=== PATIENT | female | born 1950 | race Caucasian/White ===

== ENCOUNTER 2021-02-18 07:00 | Outpatient (REF) | payer MEDICARE, SELFPAY ==
[2021-02-18 08:53] LABS: Hematocrit 29.2 % (37-47); Hemoglobin 9.7 g/dL (12.0-15.0); Mean Corp Hgb Conc 33.2 g/dL (32-36); Mean Corpuscular Hgb 32.7 pg (27.0-32.0); Mean Corpuscular Volume 98.3 fL (81-99); Mean Platelet Vol. 9.1 fl (6.2-12.0); Platelet Count 188 K/mm3 (150-450); RBC Distribution Width CV 12.2 % (11.6-14.6); RBC Distribution Width SD 43.9 fl (35.1-43.9); Red Blood Count 2.97 M/mm3 (4.2-5.4)
[2021-02-18 09:29] LABS: ALB/GLOB Ratio 0.9 RATIO (0.9-2.4); AST(SGOT) 9 U/L (15-37); Alanine Aminotransfer ALT/SGPT 16 U/L (13-56); Albumin, Serum 2.7 g/dL (3.2-5.0); Alkaline Phosphatase 49 U/L (45-117); Anion Gap 5 (5-15); BUN 20 mg/dL (7-18); BUN/Creat Ratio 27.2 RATIO (10-20); Chloride 109 mmol/L (98-107); Creatinine, Serum 0.74 mg/dL (0.55-1.02); EST Glomerular Filtration Rate 83 mL/min (>60); Est Glom Filt Rate - Afr Amer 101 mL/min (>60); Glucose 85 mg/dL (74-106); Potassium 3.5 mmol/L (3.5-5.1); Protein, Total 5.7 g/dL (6.4-8.2); Sodium Level 142 mmol/L (136-145); Thyroid Stim Hormone (TSH) 0.09 uIU/mL (0.358-3.74)
== END 2021-02-18 23:59 | disposition home or self-care (01) ==
LOC: OLS.ACW200 07:00
PROVIDERS: Referring Provider Family Medicine; Visit Provider Family Medicine
DX: I63.9 Cerebral infarction, unspecified (principal); I69.354 Hemiplegia and hemiparesis following cerebral infarction affecting left non-dominant side; G40.509 Epileptic seizures related to external causes, not intractable, without status epilepticus; R53.1 Weakness; E03.9 Hypothyroidism, unspecified; I69.398 Other sequelae of cerebral infarction; I65.21 Occlusion and stenosis of right carotid artery; G44.221 Chronic tension-type headache, intractable; F32.9 Major depressive disorder, single episode, unspecified; M81.0 Age-related osteoporosis without current pathological fracture
CPT/HCPCS: 36415; 80053; 82140; 84443; 85027

== ENCOUNTER → 2021-03-16 05:00 | Outpatient (REF) | payer OTHER, MEDICARE, SELFPAY ==
[2021-03-16 08:34] LABS: Valproic Acid (Depakene) Level 25 ug/mL (50-100)
== END ==
LOC: OLS.ACW300 05:00
PROVIDERS: Referring Provider Family Medicine; Visit Provider Family Medicine
DX: I63.9 Cerebral infarction, unspecified (principal); R53.1 Weakness; I69.354 Hemiplegia and hemiparesis following cerebral infarction affecting left non-dominant side; G40.509 Epileptic seizures related to external causes, not intractable, without status epilepticus
CPT/HCPCS: 36415; 80164

== ENCOUNTER → 2021-08-04 05:00 | Outpatient (REF) | payer OTHER, MEDICARE, SELFPAY ==
[2021-08-04 09:28] LABS: Glucose, Dipstick Normal (Normal); Ketone-Dipstick 5 mg/dl (Negative); Leukocyte Esterase-Dipstick Negative /ul (Negative); Nitrite-Dipstick Negative (Negative); Occult Blood-Urine 10 /ul (Negative); Protein-Dipstick 15 mg/dl (Negative); Specific Gravity, Urine 1.015 (1.002-1.030); Urine Bilirubin Dipstick Negative (Negative); Urine Urobilinogen Normal (Normal)
[2021-08-04 09:31] LABS: Urine Clarity Clear (Clear)
== END ==
LOC: OLS.ACW300 05:00
PROVIDERS: Visit Provider Family Medicine
DX: I63.9 Cerebral infarction, unspecified (principal); R53.1 Weakness; I69.354 Hemiplegia and hemiparesis following cerebral infarction affecting left non-dominant side; R33.9 Retention of urine, unspecified; I69.311 Memory deficit following cerebral infarction
CPT/HCPCS: 81002; 87077; 87086; 87088

== ENCOUNTER → 2021-08-30 16:00 | Outpatient (REF) | payer OTHER, SELFPAY ==
[2021-08-31 09:29] LABS: Glucose, Dipstick Normal (Normal); Ketone-Dipstick 15 mg/dl (Negative); Leukocyte Esterase-Dipstick 25 /ul (Negative); Nitrite-Dipstick Negative (Negative); Occult Blood-Urine 10 /ul (Negative); Protein-Dipstick 30 mg/dl (Negative); Urine Bilirubin Dipstick Negative (Negative); Urine Clarity Sl. Cloudy (Clear); Urine Urobilinogen Normal (Normal); Urine pH 6.5 (5.0 - 8.0)
[2021-08-31 09:35] LABS: Color, Urine SEE COMMENT BELOW (Yellow)
== END ==
LOC: OLS.ACW300 16:00
PROVIDERS: Visit Provider Family Medicine
DX: N39.0 Urinary tract infection, site not specified (principal)
CPT/HCPCS: 81002; 87086; 87088

== ENCOUNTER → 2021-09-02 10:55 | Outpatient (REF) | payer OTHER, SELFPAY | LOC: OLS.ACW300 10:55 | PROVIDERS: Visit Provider Family Medicine | DX: R30.9 Painful micturition, unspecified (principal) | CPT/HCPCS: 87077; 87086; 87088 ==

== ENCOUNTER → 2021-09-19 07:52 | Outpatient (REF) | payer OTHER, SELFPAY | LOC: OLS.ACW300 07:52 | PROVIDERS: Visit Provider Family Medicine | DX: A04.72 Enterocolitis due to Clostridium difficile, not specified as recurrent (principal); I63.9 Cerebral infarction, unspecified; R53.1 Weakness; I69.354 Hemiplegia and hemiparesis following cerebral infarction affecting left non-dominant side; I69.311 Memory deficit following cerebral infarction | CPT/HCPCS: 87493 ==

== ENCOUNTER → 2021-10-21 12:45 | Outpatient (REF) | payer OTHER, SELFPAY ==
[2021-10-21 14:09] LABS: Absolute Lymphocyte Count 0.45 X10^3/uL (0.83-4.51); Absolute Neutrophil Count 4.6 X10^3/uL (2.0-7.7); Basophil# 0.01 X10^3/uL; Basophil% 0.2 % (0-1); Eosinophil# 0.13 X10^3/uL; Eosinophils% 2.4 % (0-5); Hematocrit 16.4 % (37-47); Lymphocyte # 0.45 X10^3/ul (0.83-4.51); Lymphocyte % 8.2 % (19-41); Mean Corpuscular Volume 78.5 fL (81-99); Mean Platelet Vol. 9.6 fl (6.2-12.0); Monocyte# 0.28 X10^3/uL; Monocyte% 5.1 % (0-10); NRBC Flagged by Analyzer 1.3 % (0-5); Neutrophil # 4.55 X10^3/uL (2.7-7.7); Neutrophil % 82.8 % (47-70); POSITIVE COUNT YES; POSITIVE DIFFERENTIAL YES; Platelet Count 160 K/mm3 (150-450); RBC Distribution Width CV 19.4 % (11.6-14.6); RBC Distribution Width SD 53.7 fl (35.1-43.9); Red Blood Count 2.09 M/mm3 (4.2-5.4); White Blood Count 5.5 K/mm3 (4.4-11.0)
[2021-10-21 14:14] LABS: Differential Indicated SCAN CRITERIA MET; Hemoglobin 4.6 g/dL (12.0-15.0)
[2021-10-21 14:32] LABS: Valproic Acid (Depakene) Level 43 ug/mL (50-100)
[2021-10-21 14:34] LABS: Anisocytosis 1+; Hypochromasia 3+; Microcytosis 3+; Platelet Estimate ADEQUATE (ADEQ); Polychromasia 1+
[2021-10-21 14:38] LABS: ALB/GLOB Ratio 0.7 RATIO (0.9-2.4); AST(SGOT) 18 U/L (15-37); Alanine Aminotransfer ALT/SGPT 18 U/L (13-56); Albumin, Serum 2.3 g/dL (3.2-5.0); Alkaline Phosphatase 51 U/L (45-117); Anion Gap 9 (5-15); BUN 10 mg/dL (7-18); BUN/Creat Ratio 14.6 RATIO (10-20); Calcium,Total 7.9 mg/dL (8.5-10.1); Chloride 107 mmol/L (98-107); Cholesterol 121 mg/dL (200); Creatinine, Serum 0.68 mg/dL (0.55-1.02); EST Glomerular Filtration Rate 90 mL/min (>60); Est Glom Filt Rate - Afr Amer 109 mL/min (>60); Globulin 3.5 g/dL (2.2-4.2); Glucose 101 mg/dL (74-106); High Density Lipoprotein 50 mg/dL; Potassium 3.5 mmol/L (3.5-5.1); Protein, Total 5.8 g/dL (6.4-8.2); Sodium Level 139 mmol/L (136-145); Thyroid Stim Hormone (TSH) 1.73 uIU/mL (0.358-3.74); Triglycerides 167 mg/dL; Very Low Density Lipoprotein 33 mg/dL (5-40)
[2021-10-24 14:36] LABS: Pathologist Review Reviewed
== END ==
LOC: OLS.ACW300 12:45
PROVIDERS: Visit Provider Family Medicine
DX: I63.9 Cerebral infarction, unspecified (principal); I69.354 Hemiplegia and hemiparesis following cerebral infarction affecting left non-dominant side; G44.221 Chronic tension-type headache, intractable; R33.9 Retention of urine, unspecified; I65.21 Occlusion and stenosis of right carotid artery
CPT/HCPCS: 36415; 80053; 80061; 80164; 82140; 84443; 85025

== ENCOUNTER → 2021-12-01 | Outpatient (REF) | payer OTHER, SELFPAY ==
[2021-12-01 07:57] LABS: ALB/GLOB Ratio 0.9 RATIO (0.9-2.4); AST(SGOT) 8 U/L (15-37); Alanine Aminotransfer ALT/SGPT 10 U/L (13-56); Albumin, Serum 2.4 g/dL (3.2-5.0); Alkaline Phosphatase 45 U/L (45-117); Anion Gap 4 (5-15); BUN 27 mg/dL (7-18); BUN/Creat Ratio 36.8 RATIO (10-20); Calcium,Total 8.9 mg/dL (8.5-10.1); Chloride 110 mmol/L (98-107); Creatinine, Serum 0.73 mg/dL (0.55-1.02); EST Glomerular Filtration Rate 83 mL/min (>60); Est Glom Filt Rate - Afr Amer 101 mL/min (>60); Globulin 2.7 g/dL (2.2-4.2); Glucose 87 mg/dL (74-106); Potassium 3.7 mmol/L (3.5-5.1); Protein, Total 5.1 g/dL (6.4-8.2); Sodium Level 142 mmol/L (136-145)
== END | disposition home or self-care (01) ==
LOC: OLS.ACW300 04:00
PROVIDERS: Visit Provider Family Medicine
DX: D64.9 Anemia, unspecified (principal); I69.354 Hemiplegia and hemiparesis following cerebral infarction affecting left non-dominant side; R53.1 Weakness; I69.311 Memory deficit following cerebral infarction
CPT/HCPCS: 36415; 80053

== ENCOUNTER 2021-12-05 04:00 | Outpatient (REF) | payer OTHER, SELFPAY ==
[2021-12-05 12:23] LABS: Valproic Acid (Depakene) Level 95 ug/mL (50-100)
== END 2021-12-05 23:59 | disposition home or self-care (01) ==
LOC: OLS.ACW300 04:00
PROVIDERS: Referring Provider Family Medicine; Visit Provider Family Medicine
DX: Z79.899 Other long term (current) drug therapy (principal); I69.354 Hemiplegia and hemiparesis following cerebral infarction affecting left non-dominant side; I63.9 Cerebral infarction, unspecified; D64.9 Anemia, unspecified; R53.1 Weakness
CPT/HCPCS: 36415; 80164; 82140

== ENCOUNTER → 2022-02-28 | Outpatient (REF) | payer MEDICARE, SELFPAY ==
[2022-02-28 08:54] LABS: Hematocrit 27.1 % (37-47); Hemoglobin 7.9 g/dL (12.0-15.0); Mean Corp Hgb Conc 29.2 g/dL (32-36); Mean Corpuscular Hgb 32.5 pg (27.0-32.0); Mean Corpuscular Volume 111.5 fL (81-99); Mean Platelet Vol. 8.4 fl (6.2-12.0); Platelet Count 164 K/mm3 (150-450); RBC Distribution Width CV 13.2 % (11.6-14.6); RBC Distribution Width SD 53.7 fl (35.1-43.9); Red Blood Count 2.43 M/mm3 (4.2-5.4); White Blood Count 5.5 K/mm3 (4.4-11.0)
[2022-02-28 09:08] LABS: Vitamin D,25 Hydroxy 51.1 ng/mL
[2022-02-28 09:15] LABS: Anion Gap 7 (5-15); BUN 16 mg/dL (7-18); BUN/Creat Ratio 28.9 RATIO (10-20); Calcium,Total 8.5 mg/dL (8.5-10.1); Chloride 107 mmol/L (98-107); Cholesterol 104 mg/dL (200); Creatinine, Serum 0.55 mg/dL (0.55-1.02); EST Glomerular Filtration Rate 115 mL/min (>60); Est Glom Filt Rate - Afr Amer 139 mL/min (>60); Glucose 76 mg/dL (74-106); High Density Lipoprotein 57 mg/dL; Magnesium 1.9 mg/dL (1.6-2.6); Potassium 3.7 mmol/L (3.5-5.1); Sodium Level 143 mmol/L (136-145); Thyroid Stim Hormone (TSH) 2.92 uIU/mL (0.358-3.74); Triglycerides 81 mg/dL; Very Low Density Lipoprotein 16 mg/dL (5-40)
[2022-02-28 09:47] LABS: Hemoglobin A1c < 3.8 % (3.8-5.6)
== END | disposition home or self-care (01) ==
LOC: OLS.ACW300 07:15
PROVIDERS: Visit Provider Family Medicine
DX: E55.9 Vitamin D deficiency, unspecified (principal); I69.354 Hemiplegia and hemiparesis following cerebral infarction affecting left non-dominant side; I63.9 Cerebral infarction, unspecified; D64.9 Anemia, unspecified; R53.1 Weakness
CPT/HCPCS: 36415; 80048; 80061; 82306; 83036; 83735; 84443; 85027

== ENCOUNTER → 2022-04-21 | Outpatient (REF) | payer MEDICARE, MEDICAID, SELFPAY ==
[2022-04-21 12:26] LABS: Hematocrit 30.9 % (37-47); Hemoglobin 10.2 g/dL (12.0-15.0); Mean Corpuscular Hgb 34.3 pg (27.0-32.0); Mean Platelet Vol. 7.8 fl (6.2-12.0); Platelet Count 124 K/mm3 (150-450); RBC Distribution Width CV 12.5 % (11.6-14.6); RBC Distribution Width SD 46.8 fl (35.1-43.9); Red Blood Count 2.97 M/mm3 (4.2-5.4); White Blood Count 7.1 K/mm3 (4.4-11.0)
[2022-04-21 12:42] LABS: ALB/GLOB Ratio 0.7 RATIO (0.9-2.4); AST(SGOT) 14 U/L (15-37); Alanine Aminotransfer ALT/SGPT 10 U/L (13-56); Albumin, Serum 2.2 g/dL (3.2-5.0); Alkaline Phosphatase 50 U/L (45-117); Anion Gap 6 (5-15); BUN 19 mg/dL (7-18); BUN/Creat Ratio 33.2 RATIO (10-20); Chloride 109 mmol/L (98-107); Creatinine, Serum 0.57 mg/dL (0.55-1.02); EST Glomerular Filtration Rate 111 mL/min (>60); Est Glom Filt Rate - Afr Amer 134 mL/min (>60); Globulin 3.2 g/dL (2.2-4.2); Glucose 84 mg/dL (74-106); Potassium 4.4 mmol/L (3.5-5.1); Protein, Total 5.4 g/dL (6.4-8.2); Sodium Level 141 mmol/L (136-145)
[2022-04-21 14:15] LABS: Erythrocyte Sedimentation Rate 18 mm/hr (0-30)
== END | disposition home or self-care (01) ==
LOC: OLS.ACW300 11:30
PROVIDERS: Visit Provider Family Medicine
DX: I69.354 Hemiplegia and hemiparesis following cerebral infarction affecting left non-dominant side (principal); I63.9 Cerebral infarction, unspecified; D64.9 Anemia, unspecified; R53.1 Weakness; I69.311 Memory deficit following cerebral infarction
CPT/HCPCS: 36415; 80053; 85027; 85652

== ENCOUNTER → 2022-06-25 | Outpatient (REF) | payer MEDICARE, MEDICAID, SELFPAY ==
[2022-06-25 10:19] LABS: Glucose, Dipstick Normal (Normal); Ketone-Dipstick 5 mg/dl (Negative); Leukocyte Esterase-Dipstick 500 /ul (Negative); Nitrite-Dipstick Negative (Negative); Occult Blood-Urine 50 /ul (Negative); Protein-Dipstick 100 mg/dl (Negative); Urine Bilirubin Dipstick Negative (Negative); Urine Clarity Cloudy (Clear); Urine Urobilinogen Normal (Normal)
[2022-06-25 10:21] LABS: Color, Urine SEE COMMENT BELOW (Yellow)
[2022-06-25 10:22] LABS: Hematocrit 36.7 % (37-47); Hemoglobin 11.9 g/dL (12.0-15.0); Mean Corp Hgb Conc 32.4 g/dL (32-36); Mean Corpuscular Hgb 33.8 pg (27.0-32.0); Mean Corpuscular Volume 104.3 fL (81-99); Mean Platelet Vol. 8.4 fl (6.2-12.0); Platelet Count 101 K/mm3 (150-450); RBC Distribution Width CV 12.4 % (11.6-14.6); RBC Distribution Width SD 46.9 fl (35.1-43.9); Red Blood Count 3.52 M/mm3 (4.2-5.4)
[2022-06-25 10:34] LABS: ALB/GLOB Ratio 0.7 RATIO (0.9-2.4); AST(SGOT) 22 U/L (15-37); Alanine Aminotransfer ALT/SGPT 20 U/L (13-56); Albumin, Serum 2.3 g/dL (3.2-5.0); Alkaline Phosphatase 60 U/L (45-117); Anion Gap 6 (5-15); BUN 20 mg/dL (7-18); BUN/Creat Ratio 36.1 RATIO (10-20); Calcium,Total 8.4 mg/dL (8.5-10.1); Chloride 111 mmol/L (98-107); Creatinine, Serum 0.55 mg/dL (0.55-1.02); EST Glomerular Filtration Rate 115 mL/min (>60); Est Glom Filt Rate - Afr Amer 139 mL/min (>60); Globulin 3.3 g/dL (2.2-4.2); Glucose 81 mg/dL (74-106); Magnesium 1.9 mg/dL (1.6-2.6); Potassium 3.9 mmol/L (3.5-5.1); Protein, Total 5.6 g/dL (6.4-8.2); Sodium Level 143 mmol/L (136-145)
== END ==
LOC: OLS.ACW300 09:03
PROVIDERS: Visit Provider Family Medicine
DX: I69.311 Memory deficit following cerebral infarction (principal); I69.354 Hemiplegia and hemiparesis following cerebral infarction affecting left non-dominant side; R41.82 Altered mental status, unspecified; I63.9 Cerebral infarction, unspecified; D64.9 Anemia, unspecified; R53.1 Weakness
CPT/HCPCS: 36415; 80053; 81002; 83735; 85027; 87086; 87088

== ENCOUNTER → 2022-08-03 | Outpatient (REF) | payer MEDICARE, MEDICAID, SELFPAY ==
[2022-08-03 10:11] LABS: Prothrombin Time (Protime)PT. 12.7 SECONDS (11.7-14.9)
[2022-08-03 10:12] LABS: Hematocrit 32.9 % (37-47); Hemoglobin 10.5 g/dL (12.0-15.0); Mean Corp Hgb Conc 31.9 g/dL (32-36); Mean Corpuscular Volume 106.5 fL (81-99); Mean Platelet Vol. 8.1 fl (6.2-12.0); Platelet Count 122 K/mm3 (150-450); RBC Distribution Width CV 12.9 % (11.6-14.6); RBC Distribution Width SD 49.4 fl (35.1-43.9); Red Blood Count 3.09 M/mm3 (4.2-5.4); White Blood Count 8.8 K/mm3 (4.4-11.0)
[2022-08-03 10:40] LABS: AST(SGOT) 18 U/L (15-37); Alanine Aminotransfer ALT/SGPT 13 U/L (13-56); Albumin, Serum 1.9 g/dL (3.2-5.0); Alkaline Phosphatase 59 U/L (45-117); Anion Gap 6 (5-15); BUN 17 mg/dL (7-18); BUN/Creat Ratio 31.8 RATIO (10-20); Bilirubin, Direct 0.05 mg/dL (0.00-0.30); Calcium,Total 8.7 mg/dL (8.5-10.1); Chloride 106 mmol/L (98-107); Creatinine, Serum 0.54 mg/dL (0.55-1.02); EST Glomerular Filtration Rate 120 mL/min (>60); Est Glom Filt Rate - Afr Amer 145 mL/min (>60); Globulin 3.8 g/dL (2.2-4.2); Glucose 66 mg/dL (74-106); Potassium 3.8 mmol/L (3.5-5.1); Protein, Total 5.7 g/dL (6.4-8.2); Sodium Level 140 mmol/L (136-145)
== END ==
LOC: OLS.ACW300 05:00
PROVIDERS: Visit Provider Family Medicine
DX: I63.9 Cerebral infarction, unspecified (principal); D64.9 Anemia, unspecified; R53.1 Weakness; I69.354 Hemiplegia and hemiparesis following cerebral infarction affecting left non-dominant side; I69.311 Memory deficit following cerebral infarction
CPT/HCPCS: 36415; 80048; 80076; 85027; 85610; 85730

== ENCOUNTER → 2022-09-13 | Outpatient (REF) | payer MEDICARE, MEDICAID, SELFPAY ==
[2022-09-13 09:53] LABS: Valproic Acid (Depakene) Level 76 ug/mL (50-100)
== END ==
LOC: OLS.ACW300 05:00
PROVIDERS: Visit Provider Family Medicine
DX: I63.9 Cerebral infarction, unspecified (principal); R53.1 Weakness; I69.354 Hemiplegia and hemiparesis following cerebral infarction affecting left non-dominant side; I69.311 Memory deficit following cerebral infarction; I69.328 Other speech and language deficits following cerebral infarction
CPT/HCPCS: 36415; 80164

== ENCOUNTER → 2023-01-04 | Outpatient (REF) | payer MEDICARE, MEDICAID, SELFPAY ==
[2023-01-04 08:34] LABS: Hematocrit 33.1 % (37-47); Hemoglobin 10.8 g/dL (12.0-15.0); Mean Corp Hgb Conc 32.6 g/dL (32-36); Mean Corpuscular Hgb 33.8 pg (27.0-32.0); Mean Corpuscular Volume 103.4 fL (81-99); Platelet Count 141 K/mm3 (150-450); RBC Distribution Width CV 11.9 % (11.6-14.6); RBC Distribution Width SD 45.2 fl (35.1-43.9); White Blood Count 5.9 K/mm3 (4.4-11.0)
[2023-01-04 08:58] LABS: Anion Gap 7 (5-15); BUN 19 mg/dL (7-18); BUN/Creat Ratio 30.1 RATIO (10-20); Chloride 111 mmol/L (98-107); Cholesterol 124 mg/dL (200); Creatinine, Serum 0.63 mg/dL (0.55-1.02); EST Glomerular Filtration Rate 99 mL/min (>60); Est Glom Filt Rate - Afr Amer 119 mL/min (>60); Glucose 86 mg/dL (74-106); High Density Lipoprotein 32 mg/dL; Potassium 3.8 mmol/L (3.5-5.1); Sodium Level 143 mmol/L (136-145); Thyroid Stim Hormone (TSH) 0.32 uIU/mL (0.358-3.74); Triglycerides 166 mg/dL; Very Low Density Lipoprotein 33 mg/dL (5-40)
== END ==
LOC: OLS.ACW300 05:00
PROVIDERS: Visit Provider Family Medicine
DX: I69.354 Hemiplegia and hemiparesis following cerebral infarction affecting left non-dominant side (principal); I69.311 Memory deficit following cerebral infarction; I69.328 Other speech and language deficits following cerebral infarction; Z79.899 Other long term (current) drug therapy
CPT/HCPCS: 36415; 80048; 80061; 83735; 84443; 85027

== ENCOUNTER → 2023-03-20 | Outpatient (REF) | payer MEDICARE, MEDICAID, SELFPAY ==
[2023-03-20 10:01] LABS: Erythrocyte Sedimentation Rate 6 mm/hr (0-30)
[2023-03-20 10:03] LABS: Hematocrit 36.4 % (37-47); Mean Corpuscular Hgb 34.4 pg (27.0-32.0); Mean Corpuscular Volume 104.3 fL (81-99); Mean Platelet Vol. 9.1 fl (6.2-12.0); Platelet Count 108 K/mm3 (150-450); RBC Distribution Width CV 12.4 % (11.6-14.6); RBC Distribution Width SD 46.9 fl (35.1-43.9); Red Blood Count 3.49 M/mm3 (4.2-5.4); White Blood Count 5.9 K/mm3 (4.4-11.0)
[2023-03-20 10:07] LABS: Vitamin D,25 Hydroxy 73.1 ng/mL
[2023-03-20 10:13] LABS: ALB/GLOB Ratio 0.7 RATIO (0.9-2.4); AST(SGOT) 17 U/L (15-37); Alanine Aminotransfer ALT/SGPT 13 U/L (13-56); Albumin, Serum 2.4 g/dL (3.2-5.0); Alkaline Phosphatase 63 U/L (45-117); Anion Gap 5 (5-15); BUN 23 mg/dL (7-18); BUN/Creat Ratio 29.9 RATIO (10-20); Calcium,Total 8.7 mg/dL (8.5-10.1); Chloride 112 mmol/L (98-107); Cholesterol 128 mg/dL (200); Creatinine, Serum 0.77 mg/dL (0.55-1.02); EST Glomerular Filtration Rate 79 mL/min (>60); Est Glom Filt Rate - Afr Amer 95 mL/min (>60); Globulin 3.5 g/dL (2.2-4.2); Glucose 76 mg/dL (74-106); High Density Lipoprotein 36 mg/dL; Potassium 4.3 mmol/L (3.5-5.1); Protein, Total 5.9 g/dL (6.4-8.2); Sodium Level 143 mmol/L (136-145); Thyroid Stim Hormone (TSH) 4.07 uIU/mL (0.358-3.74); Triglycerides 98 mg/dL; Very Low Density Lipoprotein 20 mg/dL (5-40)
== END ==
LOC: OLS.ACW300 05:00
PROVIDERS: Visit Provider Family Medicine
DX: E55.9 Vitamin D deficiency, unspecified (principal); I69.354 Hemiplegia and hemiparesis following cerebral infarction affecting left non-dominant side; I69.311 Memory deficit following cerebral infarction; I69.328 Other speech and language deficits following cerebral infarction; Z79.899 Other long term (current) drug therapy
CPT/HCPCS: 36415; 80053; 80061; 82306; 84443; 85027; 85652

== ENCOUNTER → 2023-06-07 | Outpatient (REF) | payer MEDICARE, MEDICAID, SELFPAY ==
[2023-06-07 09:37] LABS: Thyroid Stim Hormone (TSH) 2.42 uIU/mL (0.358-3.74)
== END ==
LOC: OLS.ACW300 05:00
PROVIDERS: Visit Provider Family Medicine
DX: E03.9 Hypothyroidism, unspecified (principal)
CPT/HCPCS: 36415; 84443

== ENCOUNTER → 2023-08-03 | Outpatient (REF) | payer MEDICARE, MEDICAID, SELFPAY ==
[2023-08-03 08:45] LABS: Valproic Acid (Depakene) Level 74 ug/mL (50-100)
[2023-08-03 08:48] LABS: Ferritin 126 ng/mL (8-252); Iron 99 ug/dL (50-170); Iron Binding Capacity,Total 227 ug/dL (250-450); PERCENT IRON SATURATION 43.6 % (15.0-55.0)
[2023-08-04 05:07] LABS: Transferrin 179 mg/dL (192-364)
== END ==
LOC: OLS.ACW300 05:00
PROVIDERS: Visit Provider Family Medicine
DX: R53.1 Weakness; D64.9 Anemia, unspecified; I69.354 Hemiplegia and hemiparesis following cerebral infarction affecting left non-dominant side
CPT/HCPCS: 36415; 80164; 82140; 82728; 83540; 83550; 83735; 84466

== ENCOUNTER → 2023-08-24 | Outpatient (REF) | payer MEDICARE, MEDICAID, SELFPAY ==
[2023-08-24 10:36] LABS: T3 Total - Triiodothyronine 0.94 ng/mL (0.6-1.81)
[2023-08-24 10:56] LABS: T4 Total, Thyroxin 8.5 ug/dL (4.8-13.9); Thyroid Stim Hormone (TSH) 1.26 uIU/mL (0.358-3.74)
== END ==
LOC: OLS.ACW300 05:00
PROVIDERS: Visit Provider Family Medicine
DX: E03.9 Hypothyroidism, unspecified (principal)
CPT/HCPCS: 36415; 84436; 84443; 84480

== ENCOUNTER → 2023-11-08 | Outpatient (REF) | payer MEDICARE, MEDICAID, SELFPAY ==
[2023-11-08 09:32] LABS: Hematocrit 36.4 % (37-47); Mean Corpuscular Hgb 33.6 pg (27.0-32.0); Mean Platelet Vol. 9.1 fl (6.2-12.0); Platelet Count 150 K/mm3 (150-450); RBC Distribution Width CV 11.8 % (11.6-14.6); RBC Distribution Width SD 44.2 fl (35.1-43.9); Red Blood Count 3.57 M/mm3 (4.2-5.4); White Blood Count 6.2 K/mm3 (4.4-11.0)
[2023-11-08 09:42] LABS: ALB/GLOB Ratio 0.8 RATIO (0.9-2.4); AST(SGOT) 13 U/L (15-37); Alanine Aminotransfer ALT/SGPT 14 U/L (13-56); Albumin, Serum 2.9 g/dL (3.2-5.0); Alkaline Phosphatase 71 U/L (45-117); Anion Gap 3 (5-15); BUN 23 mg/dL (7-18); BUN/Creat Ratio 29.9 RATIO (10-20); Calcium,Total 9.3 mg/dL (8.5-10.1); Chloride 108 mmol/L (98-107); Creatinine, Serum 0.77 mg/dL (0.55-1.02); EST Glomerular Filtration Rate 78 mL/min (>60); Est Glom Filt Rate - Afr Amer 95 mL/min (>60); Globulin 3.7 g/dL (2.2-4.2); Glucose 94 mg/dL (74-106); Protein, Total 6.6 g/dL (6.4-8.2); Sodium Level 139 mmol/L (136-145); Thyroid Stim Hormone (TSH) 9.02 uIU/mL (0.358-3.74)
[2023-11-08 09:45] LABS: Erythrocyte Sedimentation Rate 6 mm/hr (0-30)
== END ==
LOC: OLS.ACW300 05:00
PROVIDERS: Visit Provider Family Medicine
DX: D64.9 Anemia, unspecified (principal); R53.1 Weakness; I69.354 Hemiplegia and hemiparesis following cerebral infarction affecting left non-dominant side; I69.311 Memory deficit following cerebral infarction
CPT/HCPCS: 36415; 80053; 84443; 85027; 85652

== ENCOUNTER → 2023-11-13 | Outpatient (REF) | payer MEDICARE, MEDICAID, SELFPAY ==
[2023-11-13 09:17] LABS: T4 Total, Thyroxin 9.1 ug/dL (4.8-13.9)
[2023-11-13 09:19] LABS: T3 Total - Triiodothyronine 0.82 ng/mL (0.6-1.81)
== END ==
LOC: OLS.ACW300 05:00
PROVIDERS: Visit Provider Family Medicine
DX: Z79.899 Other long term (current) drug therapy (principal)
CPT/HCPCS: 36415; 84436; 84480

== ENCOUNTER → 2023-12-24 | Outpatient (REF) | payer MEDICARE, MEDICAID, SELFPAY | LOC: OLS.ACW300 05:00 | PROVIDERS: Visit Provider Family Medicine | DX: Z79.899 Other long term (current) drug therapy (principal) | CPT/HCPCS: 36415; 84443 ==

== ENCOUNTER → 2024-02-04 05:00 | Outpatient (REF) | payer MEDICARE, MEDICAID, SELFPAY ==
[2024-02-04 10:02] LABS: T3 Total - Triiodothyronine 0.83 ng/mL (0.6-1.81)
[2024-02-04 10:14] LABS: T4 Total, Thyroxin 9.3 ug/dL (4.8-13.9); Thyroid Stim Hormone (TSH) 6.32 uIU/mL (0.358-3.74)
== END ==
LOC: OLS.ACW300 05:00
PROVIDERS: Visit Provider Family Medicine
DX: E03.9 Hypothyroidism, unspecified (principal)
CPT/HCPCS: 36415; 84436; 84443; 84480

== ENCOUNTER → 2024-02-20 05:00 | Outpatient (REF) | payer MEDICARE, MEDICAID, SELFPAY ==
[2024-02-20 07:59] LABS: T3 Total - Triiodothyronine 0.87 ng/mL (0.6-1.81)
[2024-02-20 08:17] LABS: T4 Total, Thyroxin 7.8 ug/dL (4.8-13.9)
== END ==
LOC: OLS.ACW300 05:00
PROVIDERS: Visit Provider Family Medicine
DX: I63.9 Cerebral infarction, unspecified (principal); D64.9 Anemia, unspecified; R53.1 Weakness; I69.354 Hemiplegia and hemiparesis following cerebral infarction affecting left non-dominant side; I69.311 Memory deficit following cerebral infarction; E03.9 Hypothyroidism, unspecified
CPT/HCPCS: 36415; 84436; 84443; 84480

== ENCOUNTER → 2024-02-25 05:00 | Outpatient (REF) | payer MEDICARE, MEDICAID, SELFPAY ==
[2024-02-25 09:05] LABS: Hematocrit 36.3 % (37-47); Hemoglobin 11.8 g/dL (12.0-15.0); Mean Corp Hgb Conc 32.5 g/dL (32-36); Mean Corpuscular Hgb 33.2 pg (27.0-32.0); Mean Corpuscular Volume 102.3 fL (81-99); Mean Platelet Vol. 9.3 fl (6.2-12.0); Platelet Count 124 K/mm3 (150-450); RBC Distribution Width CV 12.4 % (11.6-14.6); RBC Distribution Width SD 46.9 fl (35.1-43.9); Red Blood Count 3.55 M/mm3 (4.2-5.4); White Blood Count 6.2 K/mm3 (4.4-11.0)
[2024-02-25 10:02] LABS: Valproic Acid (Depakene) Level 61 ug/mL (50-100)
[2024-02-25 10:03] LABS: ALB/GLOB Ratio 0.8 RATIO (0.9-2.4); AST(SGOT) 19 U/L (15-37); Alanine Aminotransfer ALT/SGPT 18 U/L (13-56); Albumin, Serum 2.7 g/dL (3.2-5.0); Alkaline Phosphatase 67 U/L (45-117); Anion Gap 6 (5-15); BUN 24 mg/dL (7-18); BUN/Creat Ratio 33.1 RATIO (10-20); Calcium,Total 9.1 mg/dL (8.5-10.1); Chloride 112 mmol/L (98-107); Cholesterol 167 mg/dL (200); Creatinine, Serum 0.72 mg/dL (0.55-1.02); EST Glomerular Filtration Rate 84 mL/min (>60); Est Glom Filt Rate - Afr Amer 102 mL/min (>60); Globulin 3.5 g/dL (2.2-4.2); Glucose 82 mg/dL (74-106); High Density Lipoprotein 41 mg/dL; Iron 105 ug/dL (50-170); Potassium 3.9 mmol/L (3.5-5.1); Protein, Total 6.2 g/dL (6.4-8.2); Sodium Level 144 mmol/L (136-145); Triglycerides 220 mg/dL; Very Low Density Lipoprotein 44 mg/dL (5-40)
== END ==
LOC: OLS.ACW300 05:00
PROVIDERS: Visit Provider Family Medicine
DX: I69.354 Hemiplegia and hemiparesis following cerebral infarction affecting left non-dominant side (principal); I69.311 Memory deficit following cerebral infarction; D64.9 Anemia, unspecified; R53.1 Weakness
CPT/HCPCS: 36415; 80053; 80061; 80164; 83540; 83735; 85027

== ENCOUNTER → 2024-04-03 07:50 | Outpatient (REF) | payer MEDICARE, MEDICAID, SELFPAY | LOC: OLS.ACW300 07:50 | PROVIDERS: Visit Provider Family Medicine | DX: D64.9 Anemia, unspecified; R53.1 Weakness; I69.354 Hemiplegia and hemiparesis following cerebral infarction affecting left non-dominant side; I69.311 Memory deficit following cerebral infarction | CPT/HCPCS: 36415; 84443 ==

== ENCOUNTER → 2024-05-15 | Outpatient (REF) | payer MEDICARE, MEDICAID, SELFPAY ==
[2024-05-15 08:09] LABS: Thyroid Stim Hormone (TSH) 0.35 uIU/mL (0.358-3.74)
== END ==
LOC: OLS.ACW300 05:00
PROVIDERS: Referring Provider Family Medicine; Visit Provider Family Medicine
DX: I69.354 Hemiplegia and hemiparesis following cerebral infarction affecting left non-dominant side (principal); D64.9 Anemia, unspecified; R53.1 Weakness
CPT/HCPCS: 36415; 84443

== ENCOUNTER → 2024-05-22 | Outpatient (REF) | payer MEDICARE, MEDICAID, SELFPAY ==
[2024-05-22 09:23] LABS: Valproic Acid (Depakene) Level 59 ug/mL (50-100)
== END ==
LOC: OLS.ACW300 05:00
PROVIDERS: Visit Provider Family Medicine
DX: Z79.899 Other long term (current) drug therapy (principal)
CPT/HCPCS: 36415; 80164

== ENCOUNTER → 2024-05-27 | Outpatient (REF) | payer MEDICARE, MEDICAID, SELFPAY ==
[2024-05-27 10:35] LABS: Valproic Acid (Depakene) Level 69 ug/mL (50-100)
== END ==
LOC: OLS.ACW300 05:00
PROVIDERS: Visit Provider Family Medicine
DX: I69.354 Hemiplegia and hemiparesis following cerebral infarction affecting left non-dominant side (principal); R53.1 Weakness; Z79.899 Other long term (current) drug therapy
CPT/HCPCS: 36415; 80164

== ENCOUNTER → 2024-08-22 | Outpatient (REF) | payer MEDICARE, MEDICAID, SELFPAY ==
[2024-08-22 08:25] LABS: Valproic Acid (Depakene) Level 66 ug/mL (50-100)
[2024-08-22 09:02] LABS: T3 Total - Triiodothyronine 1.05 ng/mL (0.6-1.81)
[2024-08-22 09:10] LABS: T4 Total, Thyroxin 11.2 ug/dL (4.8-13.9); Thyroid Stim Hormone (TSH) 0.476 uIU/mL (0.358-3.740)
== END ==
LOC: OLS.ACW300 05:00
PROVIDERS: Visit Provider Family Medicine
DX: E03.9 Hypothyroidism, unspecified (principal); D64.9 Anemia, unspecified; R53.1 Weakness; I69.354 Hemiplegia and hemiparesis following cerebral infarction affecting left non-dominant side; I69.311 Memory deficit following cerebral infarction
CPT/HCPCS: 36415; 80164; 84436; 84443; 84480

== ENCOUNTER → 2024-08-27 | Outpatient (REF) | payer MEDICARE, MEDICAID, SELFPAY ==
[2024-08-27 08:14] LABS: Valproic Acid (Depakene) Level 65 ug/mL (50-100)
== END ==
LOC: OLS.ACW300 05:00
PROVIDERS: Visit Provider Family Medicine
DX: D64.9 Anemia, unspecified (principal); R53.1 Weakness; I69.354 Hemiplegia and hemiparesis following cerebral infarction affecting left non-dominant side; I69.311 Memory deficit following cerebral infarction
CPT/HCPCS: 36415; 80164

== ENCOUNTER → 2024-10-27 | Outpatient (REF) | payer MEDICARE, MEDICAID, SELFPAY ==
[2024-10-27 09:59] LABS: Hematocrit 34.7 % (37-47); Hemoglobin 10.8 g/dL (12.0-15.0); Mean Corp Hgb Conc 31.1 g/dL (32-36); Mean Corpuscular Hgb 34.1 pg (27.0-32.0); Mean Corpuscular Volume 109.5 fL (81-99); Mean Platelet Vol. 9.2 fl (6.2-12.0); Platelet Count 128 K/mm3 (150-450); RBC Distribution Width CV 14.3 % (11.6-14.6); RBC Distribution Width SD 58.6 fl (35.1-43.9); Red Blood Count 3.17 M/mm3 (4.2-5.4); White Blood Count 5.6 K/mm3 (4.4-11.0)
[2024-10-27 10:52] LABS: ALB/GLOB Ratio 0.8 RATIO (0.9-2.4); AST(SGOT) 20 U/L (15-37); Alanine Aminotransfer ALT/SGPT 15 U/L (13-56); Albumin, Serum 2.8 g/dL (3.2-5.0); Alkaline Phosphatase 52 U/L (45-117); Anion Gap 6 (5-15); BUN 25 mg/dL (7-18); BUN/Creat Ratio 51.7 RATIO (10-20); Calcium,Total 9.3 mg/dL (8.5-10.1); Chloride 113 mmol/L (98-107); Cholesterol 135 mg/dL (200); Creatinine, Serum 0.48 mg/dL (0.55-1.02); EST Glomerular Filtration Rate 133 mL/min (>60); Est Glom Filt Rate - Afr Amer 161 mL/min (>60); Globulin 3.7 g/dL (2.2-4.2); Glucose 93 mg/dL (74-106); High Density Lipoprotein 48 mg/dL; Iron 47 ug/dL (50-170); Magnesium 2.2 mg/dL (1.6-2.6); Potassium 4.1 mmol/L (3.5-5.1); Protein, Total 6.5 g/dL (6.4-8.2); Sodium Level 141 mmol/L (136-145); Triglycerides 116 mg/dL; Very Low Density Lipoprotein 23 mg/dL (5-40)
== END ==
LOC: OLS.ACW300 05:00
PROVIDERS: Visit Provider Family Medicine
DX: Z00.00 Encounter for general adult medical examination without abnormal findings (principal)
CPT/HCPCS: 36415; 80053; 80061; 83540; 83735; 85027

== ENCOUNTER → 2024-11-27 05:00 | Outpatient (REF) | payer MEDICARE, MEDICAID, SELFPAY ==
[2024-11-27 09:53] LABS: Valproic Acid (Depakene) Level 60 ug/mL (50-100)
[2024-11-27 10:07] LABS: Anion Gap 7 (5-15); BUN 17 mg/dL (7-18); BUN/Creat Ratio 36.1 RATIO (10-20); Calcium,Total 9.6 mg/dL (8.5-10.1); Chloride 110 mmol/L (98-107); Creatinine, Serum 0.47 mg/dL (0.55-1.02); EST Glomerular Filtration Rate 138 mL/min (>60); Est Glom Filt Rate - Afr Amer 166 mL/min (>60); Glucose 103 mg/dL (74-106); Potassium 3.8 mmol/L (3.5-5.1); Sodium Level 140 mmol/L (136-145)
== END ==
LOC: OLS.ACW300 05:00
PROVIDERS: Visit Provider Family Medicine
DX: R53.1 Weakness (principal); D64.9 Anemia, unspecified; I69.311 Memory deficit following cerebral infarction; I69.354 Hemiplegia and hemiparesis following cerebral infarction affecting left non-dominant side
CPT/HCPCS: 36415; 80048; 80164

== ENCOUNTER → 2024-12-22 14:30 | Outpatient (REF) | payer MEDICARE, MEDICAID, SELFPAY ==
[2024-12-23 09:36] LABS: Color, Urine Yellow (Yellow); Glucose, Dipstick Normal (Normal); Ketone-Dipstick 15 mg/dl (Negative); Leukocyte Esterase-Dipstick Negative /ul (Negative); Nitrite-Dipstick Negative (Negative); Occult Blood-Urine Negative /ul (Negative); Protein-Dipstick 30 mg/dl (Negative); Urine Bilirubin Dipstick Negative (Negative); Urine Clarity Clear (Clear); Urine Urobilinogen Normal (Normal)
== END ==
LOC: OLS.ACW300 14:30
PROVIDERS: Visit Provider Family Medicine
DX: N39.0 Urinary tract infection, site not specified (principal); R41.82 Altered mental status, unspecified; D64.9 Anemia, unspecified; R53.1 Weakness; I69.354 Hemiplegia and hemiparesis following cerebral infarction affecting left non-dominant side
CPT/HCPCS: 81002; 87086; 87088

== ENCOUNTER → 2024-12-30 | Outpatient (REF) | payer MEDICARE, MEDICAID, SELFPAY ==
[2024-12-30 08:39] LABS: Color, Urine Yellow (Yellow); Glucose, Dipstick Normal (Normal); Ketone-Dipstick 15 mg/dl (Negative); Leukocyte Esterase-Dipstick 100 /ul (Negative); Nitrite-Dipstick Positive (Negative); Occult Blood-Urine 10 /ul (Negative); Protein-Dipstick 30 mg/dl (Negative); Urine Bilirubin Dipstick Negative (Negative); Urine Clarity Clear (Clear); Urine Urobilinogen Normal (Normal)
== END ==
LOC: OLS.ACW300 02:00
PROVIDERS: Visit Provider Family Medicine
DX: N39.0 Urinary tract infection, site not specified (principal)
CPT/HCPCS: 81002; 87086; 87088; 87186

== ENCOUNTER → 2024-12-31 05:00 | Outpatient (REF) | payer MEDICARE, MEDICAID, SELFPAY ==
[2024-12-31 07:59] LABS: Absolute Lymphocyte Count 1.49 X10^3/uL (0.83-4.51); Absolute Neutrophil Count 5.3 X10^3/uL (2.0-7.7); Basophil# 0.03 X10^3/uL; Basophil% 0.4 % (0-1); Eosinophil# 0.15 X10^3/uL; Eosinophils% 1.9 % (0-5); Hematocrit 36.2 % (37-47); Hemoglobin 11.7 g/dL (12.0-15.0); Lymphocyte # 1.49 X10^3/ul (0.83-4.51); Lymphocyte % 19.3 % (19-41); Mean Corp Hgb Conc 32.3 g/dL (32-36); Mean Corpuscular Hgb 32.3 pg (27.0-32.0); Mean Platelet Vol. 8.8 fl (6.2-12.0); Monocyte# 0.68 X10^3/uL; Monocyte% 8.8 % (0-10); NRBC Flagged by Analyzer 0 % (0-5); Neutrophil # 5.34 X10^3/uL (2.7-7.7); Neutrophil % 69.2 % (47-70); Platelet Count 152 K/mm3 (150-450); RBC Distribution Width CV 13.1 % (11.6-14.6); RBC Distribution Width SD 47.8 fl (35.1-43.9); Red Blood Count 3.62 M/mm3 (4.2-5.4); White Blood Count 7.7 K/mm3 (4.4-11.0)
[2024-12-31 09:45] LABS: Valproic Acid (Depakene) Level 36 ug/mL (50-100)
== END ==
LOC: OLS.ACW300 05:00
PROVIDERS: Visit Provider Family Medicine
DX: N39.0 Urinary tract infection, site not specified (principal); R41.82 Altered mental status, unspecified; D64.9 Anemia, unspecified; R53.1 Weakness; I69.354 Hemiplegia and hemiparesis following cerebral infarction affecting left non-dominant side
CPT/HCPCS: 36415; 80164; 85025

== ENCOUNTER → 2025-01-14 | Outpatient (REF) | payer MEDICARE, MEDICAID, SELFPAY ==
[2025-01-14 08:25] LABS: Hemoglobin 11.2 g/dL (12.0-15.0); Mean Corpuscular Hgb 32.3 pg (27.0-32.0); Mean Corpuscular Volume 100.9 fL (81-99); Mean Platelet Vol. 8.8 fl (6.2-12.0); Platelet Count 305 K/mm3 (150-450); RBC Distribution Width SD 49.8 fl (35.1-43.9); Red Blood Count 3.47 M/mm3 (4.2-5.4); White Blood Count 8.3 K/mm3 (4.4-11.0)
[2025-01-14 08:34] LABS: ALB/GLOB Ratio 1.2 RATIO (0.9-2.4); AST(SGOT) 47 U/L (<=31); Alanine Aminotransfer ALT/SGPT 27 U/L (<=34); Alkaline Phosphatase 52 U/L (35-104); Anion Gap 11 (5-15); BUN 16 mg/dL (4-19); BUN/Creat Ratio 40.4 RATIO (10-20); Calcium,Total 7.5 mg/dL (7.6-11.0); Carbon Dioxide 21.7 mmol/L (21.0-32.0); Chloride 107 mmol/L (98-108); Creatinine, Serum 0.41 mg/dL (0.70-1.20); EST Glomerular Filtration Rate 104 (>60); Globulin 2.5 g/dL (2.2-4.2); Glucose 105 mg/dL (70-99); Protein, Total 5.4 g/dL (5.9-8.4); Sodium Level 139 mmol/L (133-145); Total Bilirubin 0.21 mg/dL (0.00-1.30)
== END ==
LOC: OLS.ACW300 05:00
PROVIDERS: Visit Provider Family Medicine
DX: N39.0 Urinary tract infection, site not specified (principal); D64.9 Anemia, unspecified
CPT/HCPCS: 36415; 80053; 85027

== ENCOUNTER → 2025-03-06 | Outpatient (REF) | payer MEDICARE, MEDICAID, SELFPAY | LOC: OLS.ACW300 05:00 | PROVIDERS: Visit Provider Family Medicine | DX: G93.41 Metabolic encephalopathy (principal); R41.82 Altered mental status, unspecified; R13.12 Dysphagia, oropharyngeal phase; D64.9 Anemia, unspecified; R53.1 Weakness; G40.509 Epileptic seizures related to external causes, not intractable, without status epilepticus | CPT/HCPCS: 36415 ==

== ENCOUNTER → 2025-04-01 16:00 | Outpatient (REF) | payer MEDICARE, MEDICAID, SELFPAY ==
[2025-04-02 09:30] LABS: Color, Urine Yellow (Yellow); Glucose, Dipstick Normal (Normal); Ketone-Dipstick Negative (Negative); Leukocyte Esterase-Dipstick Negative /ul (Negative); Nitrite-Dipstick Negative (Negative); Occult Blood-Urine Negative /ul (Negative); Protein-Dipstick Negative (Negative); Specific Gravity, Urine 1.015 (1.002-1.030); Urine Bilirubin Dipstick Negative (Negative); Urine Clarity Clear (Clear); Urine Urobilinogen Normal (Normal)
== END ==
LOC: OLS.ACW300 16:00
PROVIDERS: Visit Provider Family Medicine
DX: R41.82 Altered mental status, unspecified (principal); G93.41 Metabolic encephalopathy; R53.1 Weakness; G40.509 Epileptic seizures related to external causes, not intractable, without status epilepticus
CPT/HCPCS: 81002; 87086

== ENCOUNTER → 2025-06-17 | Outpatient (REF) | payer MEDICARE, MEDICAID, SELFPAY ==
--- OUTSIDE RECORDS SUMMARY | 2025-06-17 04:38 | XMS RPT_ITS | CCD ---
Author Organization [facility] CliniSyhi Care Team Providers Care Head Sawyer Name Role Phone Marcus Tierney MD Primary Care Provider Tricia LICONA, Aliya Unavailable Unavailable Cornelius Jiménez DO Unavailable German Altman DO Unavailable Namita Schumacher DO Unavailable Marcus Tierney MD Unavailable Yoav Tierney MD Unavailable [phone] Delbert Ariza MD Unavailable Shankar Marino DO Unavailable [phone] M[place], [place] Unavailable Marcus Tierney MD Primary Care Provider Tricia LICONA, Aliya Unavailable Unavailable Cornelius Jiménez DO Unavailable German Altman DO Unavailable Namita Schumacher DO Unavailable Marcus Tierney MD Unavailable Yoav Tierney MD Unavailable Delbert Ariza MD Unavailable Shankar Marino DO Unavailable [phone] [place], [place] Unavailable Tricia LICONA, Aliya Unavailable Unavailable Unavailable Primary Care Provider UnavailRobb Ballard Attending Provider Unavailjuan [facility] Attending Provider U Robb Landers MD Primary Care Provider [phone] EV II, ELIA Admitting Unavailable NILTON RODRIGUEZ Attending Unavailable ITRAT, AHMED Consulting Unavailable STEW OSWALD Attending Unavailable STEW OSWALD Referring Unavailable ROBB BARNES Primary Care Unavailable STEW OSWALD Attending Unavailable ROBB BARNES Primary Care Unavailable MARGRET, STEW Attending Unavailable ROBB BARNES Primary Care Unavailable Stephany ROB, Robb Attending Provider UnavailFouzia ROB, Robb Attending Provider Unavailabl e Stephany ROB, Robb Attending Unavailable Stephany ROB, Robb Attending Unavailable Stephany ROB, Robb Attending Unavailable [facility] Attending Unav ailable Stephany ROB, Robb Attending Unavailable Stephany ROB, Robb Attending Unavailable Stephany ROB, Robb Attending Unavailable Stephany ROB, Robb Attending Unavailable Stephany ROB, Robb Attending Unavailable Stephany ROB, Robb Attending Unavailable Stephany ROB, Robb Attending Unavailable Stephany ROB, Robb Attending Unavailable Raymundo SAL-EQUIPMENT TESTER, Paty Unavailable Robb Barnes MD Unavailable [phone] Allergies Allergy Classification Reported Allergen(s) Allergy Type Date of Onset Reaction(s) Facility (10 sources) Codeine; Translations: [CODEINE] Drug Allergy 7 Other: See Comments [facility] (6 sources) Levetiracetam; Translations: [LEVETIRACETAM] Propensity to adverse reactions 5 Other [facility] (1 source) Codeine Drug Allergy 3 [facility] (1 source) Penicillin V Drug Allergy 5 [facility] [place] [facility] Medications Current Medications Medication Drug Class(es) Dates Sig (Normalized) Sig (Original) acetaminophen 325 mg oral tablet (9 sources) Start: 01-13-2025 take 2 tablets by mouth every six hours as needed acetaminophen (Tylenol) 325 MG tablet Take 650 mg by mouth every 6 hours as needed. 01/13/2025 Active take 2 tablets by mo uth four times daily as needed for pain Tylenol 325 mg tablet Take 2 tablet by m outh four times a day as needed for pain active Joe Caballero LPN [facility] [place] [facility] [place] take 2 tablets by mo uth every six hours as needed acetaminophen (TYLENOL) 500 mg tablet Ta ke 1,000 mg by mouth every 6 hours as needed for pain. 0 Active Comment on above: Take 1,000 mg by garth th every 6 hours as needed for pain. alendronic acid 70 mg oral tablet (9 sources) Bisphosphonate take 1 tablet by mouth every week alendronate 70 mg tablet Take 1 tablet by mouth once a week active Joe Caballero [facility] [place] take 2 tablets by mo [facility] every week in the morning alendronate (FOSAMAX) 35 mg tablet Take 70 mg by mouth one time a week. In AM with cup of water on empty stomach. Nothing else by mouth and stay upright for 30 min. 0 Active Comment on above: Take 70 mg by mouth one time a week. In AM with cup of water on empty stomach. Nothing else by mouth and stay upright for 30 min. Azo Bladder Control (pumpkin seed extract-soy germ) capsule 500mg (1 source) take 1 capsule by mouth once daily Azo Bladder Control (pumpkin seed extract-soy germ) capsule 500mg Take 1 capsule by mouth once a day as directed active Joe Caballero LPN [facility] [place] calcium carbonate 625 mg / cholecalciferol 125 unt oral tablet (8 sources) Vitamin D calcium carbonate-cholecalcif edmundo (Oyster Shell) 250-3.125 MG-MCG tablet Take 1 tablet by mouth. Active take 1 tablet by mouth twice namita ly calcium carbonate-vitamin D3 (CALCIUM 500+D) 500 mg(1,250mg) -400 unit chewable tablet Take 1 tablet by mouth twice daily. 0 Active Comment on above: Take 1 tablet by garth th twice daily. clopidogrel 75 mg oral tablet (8 sources) P2Y12 Platelet Inhibitor Start: 01-13-2025 take 1 tablet by mouth once daily clopidogrel (Plavix) 75 MG tablet Take 75 mg by mouth daily. 01/13/2025 Active Start: 10-31-2021 take 1 tablet by garth th once daily clopidogrel (PLAVIX) 75 mg tablet Take 1 tablet by mouth once daily. 30 tablet 0 10/31/2021 Active Comment on above: Take 1 tablet by garth th once daily. D-Mannose 500 MG capsule (5 sources) take 1 capsule by mouth once daily D-Mannose 500 MG capsule Take 500 mg by mouth daily. Active diclofenac sodium 0.01 mg/mg topical gel (9 sources) Nonsteroidal Anti-inflammatory Drug diclofenac 1 % topical gel to skin twice a day active Yee Marie [facility] [place] Diclofenac Sodiu m (Voltaren) 1 % gel Apply 4 g topically 3 times a day. Active apply 4 g topically four times d aily diclofenac (VOLTAREN) 1 % topical gel Apply 4 g to affected area four times daily. Left knee 0 Active Comment on above: Apply 4 g to affecte d area four times daily. Left knee DULoxetine 30 mg delayed release oral capsule (6 sources) Serotonin and Norepinephrine Reuptake Inhibitor Start: 01-15-20 take 1 capsule by mouth once daily DULoxetine (Cymbalta) [address] capsule Take 30 mg by mouth daily. 01/14/2025 Active 84 hr estradiol 0.63616 mg/hr transdermal system (9 sources) Estrogen apply 1 dose transdermal route once daily Hilda 0.05 mg/24 hr transdermal patch Apply 1 patch to skin once a day active Joe Caballero [facility] [place] estradiol (Vivel le-DOT) 0.05 MG/24HR Place 1 patch on the skin once a week. Active estradiol (VIVEL LE-DOT) 0.05 mg/24 hr Apply 1 Patch as directed one time a week. 0 Active Comment on above: Apply 1 Patch as dir ected one time a week. ferrous sulfate 325 mg oral tablet (9 sources) Start: 12-18-2024 take 1 tablet by mouth every other day ferrous sulfate 325 (65 Fe) MG tablet Take 325 mg by mouth every other day. 12/18/2024 Active Start: 10-25-2021 take 1 tablet by garth th once daily at breakfast ferrous sulfate 325 mg (65 mg iron) tablet Take 1 tablet by mouth daily with breakfast. 0 10/25/2021 Active take 1 tablet by garth th twice daily ferrous sulfate 325 mg (65 mg iron) tablet Take 1 tablet by mouth twice a day active Joe Caballero [facility] [place] Comment on above: Take 1 tablet by garth th daily with breakfast. lacosamide 100 mg oral tablet (12 sources) Anti-epileptic Agent Start: 03-08-2025 End: 05-04-2025 take 1 tablet by mouth twice daily Vimpat 100 MG tablet Indications: Focal epilepsy with impairment of consciousness, intractable (HCC) Take 1 tablet (100 mg) by mouth 2 times daily. Do not start before April 04, 2025. 60 tablet 2 04/04/2025 05/04/2025 Active Start: 02-06-2025 End: 03-08-2025 take 1 tablet by mouth once daily in the evening, then take 1 tablet by mouth twice daily lacosamide (Vimpat) 100 MG tablet Indications: Focal epilepsy with impairment of consciousness, intractable (HCC) Take 1 tab po QPM for 10 days, then take 1 tab po BID. 50 tablet 02/06/2025 Active levothyroxine sodium 0.175 mg oral tablet (9 sources) l-Thyroxine Start: 12-25-2024 levothyroxine (Synthroid, Levoxyl) 175 MCG tablet 12/25/2024 Active Start: 10-20-2020 take 1 tablet by garth th once daily before breakfast levothyroxine (SYNTHROID) 125 mcg tablet Indications: Hypothyroidism, unspecified TAKE 1 TABLET BY MOUTH EVERY MORNING BEFORE BREAKFAST 90 tablet 1 10/20/2020 Active Comment on above: TAKE 1 TABLET BY GARTH TH EVERY MORNING BEFORE BREAKFAST lidocaine hydrochloride 40 mg/ml topical cream (1 source) Antiarrhythmic, Amide Local Anesthetic lidocaine 4 % topica l cream Apply 1 a small amount to skin three times a day as needed for pain active Joe Caballero [facility] [place] lysine 500 mg oral tablet (6 sources) take 1 tablet by mouth once daily lysine 500 mg tablet Take 1 tablet by mouth once a day active Joe Caballero [facility] [place] take 2 tablets by mouth once namita ly LYSINE PO Take 500 mg by mouth daily. Take 2 tabs daily Active magnesium oxide 250 mg oral tablet (9 sources) take 1 tablet by mouth once daily magnesium 250 mg (as magnesium oxide) tablet Take 1 tablet by mouth once a day active Joe Caballero [facility] [place] Comment on above: Take 250 mg by mouth once daily. 24 hr mirabegron 25 mg extended release oral tablet (9 sources) beta3-Adrenergic Agonist take 1 tablet by mouth once daily Myrbetriq 25 mg tablet,extended release Take 1 tablet by mouth once a day active Joe Caballero [facility] [place] Comment on above: Take 25 mg by mouth once daily. nystatin 100 unt/mg topical powder (1 source) Polyene Antifungal Nystop 100,00 0 unit/gram powder as directed active Jessy Daugherty [facility] potassium chloride 10 meq extended release oral capsule (6 sources) Start: 5 potassium chloride ER (Micro-K) 10 MEQ ER capsule Take 10 mEq by mouth daily. 02/06/2025 Active predniSONE 1 mg oral tablet (2 sources) Start: 2 End: 2 take 9 tablets by mouth once daily, then take 8 tablets by mouth once daily, then take 7 tablets by mouth once daily, then take 6 tablets by mouth once daily, then take 5 tablets by mouth once daily, then take 4 tablets by mouth once daily, then take 3 tablets by mouth once daily, then take 2 tablets by mouth once daily, then take 1 tablet by mouth once daily predniSONE (DELTASONE) 1 mg tablet Take 9 tablets by mouth once daily for 30 days, THEN 8 tablets once daily for 30 days, THEN 7 tablets once daily for 30 days, THEN 6 tablets once daily for 30 days, THEN 5 tablets once daily for 30 days, THEN 4 tablets once daily for 30 days, THEN 3 tablets once daily for 30 days, THEN 2 tablets once daily for 30 days, THEN 1 tablet once daily. 1350 tablet 0 11/07/2021 08/04/2022 Active Comment on above: Take 9 tablets by [facility] once daily for 30 days, THEN 8 tablets once daily for 30 days, THEN 7 tablets once daily for 30 days, THEN 6 tablets once daily for 30 days, THEN 5 tablets once daily for 30 days, THEN 4 tablets once daily for 30 days, THEN 3 tablets once daily for 30 days, THEN 2 tablets once daily for 30 days, THEN 1 tablet once daily. pregabalin 150 mg oral capsule (6 sources) Start: 5 End: 5 take 1 capsule by mouth once daily pregabalin (Lyrica) 150 MG capsule Take 150 mg by mouth daily. 12/19/2024 Active take 1 capsule by mouth twice da angela pregabalin 150 mg capsule Take 1 capsule by mouth twice a day active Yee Marie [facility] [place] RA CALCIUM 600/VITAMIN D-3 (CALCIUM CARB-CHOLECALCIFEROL) 600-10 MG-MCG TABS (1 source) take 1 tablet by mouth twice daily Calcium 600 + D(3) 600 mg-10 mcg (400 unit) tablet Take 1 tablet by mouth twice a day active Joe Caballero [facility] [place] rOPINIRole 0.5 mg oral table t (10 sources) Nonergot Dopamine Agonist take 1 tablet by mouth once daily ropinirole 0.5 mg tablet Take 1 tablet by mouth once a day active Joe Caballero [facility] [place] take 1 tablet by mouth once elsa y ropinirole 1 mg tablet Take 1 tablet by mouth once a day active Joe Caballero [facility] [place] take 2 tablets by mo uth once daily at bedtime rOPINIRole (Requip) 0.5 MG tablet Take 1 mg by mouth daily at bedtime. Active Comment on above: Take 1 mg by mouth d aily at bedtime. Completed/Discontinued Medications Medication Drug Class(es) Dates Sig (Normalized) Sig (Original) amitriptyline hydrochloride 50 mg oral tablet (3 sources) Tricyclic Antidepressant take 1 tablet by mouth once daily at bedtime amitriptyline (ELAVIL) 50 mg tablet Take 50 mg by mouth daily at bedtime. 0 Active Comment on above: Take 50 mg by mouth daily at bedtime. aspirin 81 mg delayed release oral tablet (3 sources) Platelet Aggregation Inhibitor, Nonsteroidal Anti-inflammatory Drug take 1 tablet by mouth once daily aspirin, enteric coated (ASPIR-81) 81 mg EC tablet Take 81 mg by mouth once daily. 0 Active Comment on above: Take 81 mg by mouth once daily. atorvastatin 80 mg oral tablet (4 sources) HMG-CoA Reductase Inhibitor Start: 01-11-2021 take 1 tablet by mouth once daily atorvastatin (LIPITOR) 80 mg tablet TAKE 1 TABLET BY MOUTH EVERY DAY 90 tablet 1 01/11/2021 Active Comment on above: TAKE 1 TABLET BY GARTH TH EVERY DAY cholestyramine resin 4000 mg powder for oral suspension (3 sources) Bile Acid Sequestrant cholestyramine-suc juan luis (QUESTRAN) 4 gram powder Take by mouth twice daily with meals. 0 Active Comment on above: Take by mouth twice daily with meals. citalopram 10 mg oral tablet (3 sources) Serotonin Reuptake Inhibitor take 1 tablet by mouth once daily citalopram hydrobromide (CELEXA) 10 mg tablet Take 10 mg by mouth once daily. 0 Active Comment on above: Take 10 mg by mouth once daily. docusate sodium 100 mg oral capsule (3 sources) Start: 10-25-2021 take 1 capsule by mouth once daily docusate sodium (COLACE) 100 mg capsule Take 1 capsule by mouth once daily. Take while taking protonix 0 10/25/2021 Active Comment on above: Take 1 capsule by [facility] once daily. Take while taking protonix gabapentin 100 mg oral capsule (2 sources) Anti-epileptic Agent Start: 11-07-2021 take 2 capsules by mouth twice daily gabapentin (NEURONTIN) 100 mg capsule Take 2 capsules by mouth twice daily for 60 days. 120 capsule 1 11/07/2021 Active Comment on above: Take 2 capsules by [facility] twice daily for 60 days. hyoscyamine sulfate 0.12 mg / methenamine 118 mg / methylene blue 10 mg / phenyl salicylate 36 mg / sodium phosphate, monobasic 40.8 mg oral capsule (2 sources) Oxidation-Reduction Agent Start: 11-10-2020 take 1 capsule by mouth once daily Mth-Me Blue-Sod Sbjc-YkBqd-Zel (URIBEL) 118-10-40.8-36 mg Take 1 capsule by mouth once daily. 30 capsule 5 11/10/2020 Active Comment on above: Take 1 capsule by [facility] once daily. L-LYSINE ORAL (3 sources) take 1000 mg by mouth once daily L-LYSINE ORAL Take 1,000 mg by mouth once daily. 0 Active Comment on above: [facility]. levETIRAcetam 250 mg oral tablet (3 sources) take 1 tablet by mouth twice daily levETIRAcetam (KEPPRA) 250 mg tablet Take 250 mg by mouth twice daily. 0 Active Comment on above: Take 250 mg by mouth twice daily. loperamide hydrochloride 2 mg oral capsule (3 sources) Opioid Agonist take 1 capsule by mouth every six hours as needed loperamide (IMODIUM A-D) 2 mg cap(s) Take 2 mg by mouth four times daily as needed for diarrhea. 0 Active Comment on above: Take 2 mg by mouth f our times daily as needed for diarrhea. pantoprazole 40 mg delayed release oral tablet (3 sources) Proton Pump Inhibitor Start: 10-25-2021 take 1 tablet by mouth once daily pantoprazole DR (PROTONIX) 40 mg tablet Take 1 tablet by mouth once daily. 0 10/25/2021 Active Comment on above: Take 1 tablet by garth th once daily. rizatriptan 5 mg oral tablet (3 sources) Serotonin-1b and Serotonin-1d Receptor Agonist take 1 tablet by mouth every two hours as needed rizatriptan (MAXALT) 5 mg tablet Take 5 mg by mouth as needed. May repeat in 2 hours if needed; do not exceed 30mg in 24hours 0 Active Comment on above: Take 5 mg by mouth a s needed. May repeat in 2 hours if needed; do not exceed 30mg in 24hours divalproex sodium 500 mg delayed release oral tablet (3 sources) Mood Stabilizer, Anti-epileptic Agent Start: 11-07-2021 take 1 tablet by mouth twice daily divalproex DR (DEPAKOTE) 500 mg EC tablet Take 1 tablet by mouth twice daily. 60 tablet 0 11/07/2021 Active Comment on above: Take 1 tablet by garth th twice daily. zinc oxide 0.2 mg/mg topical ointment (3 sources) Start: 11-07-2021 zinc oxide 20 % ointment Apply to affected area twice daily. 0 11/07/2021 Active Comment on above: Apply to affected ar ea twice daily. Problems Active Problems Problem Classification Problem Date Documented Da te Episodic/Chronic Acute cerebrovascular disease (9 sources) Cerebrovascular accident; Translations: [Cerebral infarction, unspecified] Onset: 0 10-21-2021 Chronic Aortic; peripheral; and visceral artery aneurysms (3 sources) Aneurysm; Translations: [Aneurysm of unspecified site] 03-26-2017 Chronic Deficiency and other anemia (2 sources) Anemia, unspecified; Translations: [Anemia, unspecified] Onset: 5 Episodic Disorders of lipid metabolism (3 sources) Pure hypercholesterolemia; Translations: [Pure hypercholesterolemia, unspecified] Onset: 7 03-26-2017 Chronic Endometriosis (3 sources) Endometriosis (clinical); Translations: [Endometriosis, unspecified] 03-26-2017 Chronic Epilepsy; convulsions (9 sources) Epilepsy; Translations: [Epilepsy, unspecified, not intractable, without status epilepticus] Onset: 1 11-07-2021 Chronic Esophageal disorders (3 sources) Gastroesophageal reflux disease; Translations: [Gastro-esophageal reflux disease without esophagitis] Onset: 2 11-07-2021 Chronic Essential hypertension (3 sources) Essential hypertension; Translations: [Essential (primary) hypertension] Onset: 0 10-31-2021 Chronic Late effects of cerebrovascular disease (12 sources) Left hemiparesis; Translations: [Hemiplegia and hemiparesis following cerebral infarction affecting left non-dominant side] Onset: 1 11-07-2021 Chronic Malaise and fatigue (6 sources) Fatigue; Translations: [Other fatigue] Onset: 5 03-26-2017 Episodic Mood disorders (3 sources) Mild depression; Translations: [Mild depression] 03-26-2017 Chronic Occlusion or stenosis of precerebral arteries (1 source) Carotid artery obstruction 02-06-2025 Chronic Other and unspecified benign neoplasm (3 sources) Polyp of colon; Translations: [Polyp of colon] 03-26-2017 Episodic Other gastrointestinal disorders (2 sources) Dysphagia, oropharyngeal phase; Translations: [Dysphagia, oropharyngeal phase] Onset: 5 Episodic Other lower respiratory disease (3 sources) Multiple nodules of lung; Translations: [Other nonspecific abnormal finding of lung field] 02-04-2018 Episodic Other nervous system disorders (3 sources) Polyneuropathy; Translations: [Polyneuropathy, unspecified] Onset: 2 02-08-2021 Chronic Other nervous system disorders (1 source) Metabolic encephalopathy; Translations: [Metabolic encephalopathy] Onset: 5 Chronic Other nervous system disorders (1 source) Cognitive communication deficit; Translations: [Cognitive communication deficit] Onset: 5 Chronic Other nutritional; endocrine; and metabolic disorders (1 source) Disorder of urea cycle metabolism, unspecified; Translations: [Disorder of urea cycle metabolism, unspecified] Onset: 5 Chronic Other nutritional; endocrine; and metabolic disorders (1 source) Adult failure to thrive; Translations: [Failure to thrive in adult] Onset: 5 Episodic Other screening for suspected conditions (not mental disorders or infectious disease) (1 source) Patient encounter status; Translations: [Encounter for screening mammogram for malignant neoplasm of breast] Episodic Paralysis (3 sources) Brown-Sequard syndrome; 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-2021 Chronic Residual codes; unclassified (3 sources) Altered mental status, unspecified; Translations: [Altered mental status, unspecified altered mental status type] Onset: 5 Episodic Thyroid disorders (4 sources) Hypothyroidism; Translations: [Hypothyroidism, unspecified] Onset: 4 11-07-2021 Chronic Past or Other Problems Problem Classification Problem Date Documented Da te Episodic/Chronic Administrative/social admission (6 sources) Other reduced mobility; Translations: [Other specified conditions influencing health status] Onset: 01-26-2020 01-26-2020 Episodic Deficiency and other anemia (6 sources) Iron deficiency anemia; Translations: [Iron deficiency anemia, unspecified] Onset: 10-21-2021 10-31-2021 Episodic Epilepsy; convulsions (3 sources) Seizure; Translations: [Unspecified convulsions] Onset: 05-16-2020 10-31-2021 Episodic Fever of unknown origin (3 sources) Fever; Translations: [Fever, unspecified] Onset: 10-21-2021 10-21-2021 Episodic Headache; including migraine (3 sources) Headache; Translations: [Headache] Onset: 02-01-2021 02-01-2021 Episodic Other circulatory disease (3 sources) Low blood pressure; Translations: [Hypotension, unspecified] Onset: 05-14-2020 10-21-2021 Episodic Other connective tissue disease (3 sources) Weakness of left arm; Translations: [Other symptoms and signs involving the musculoskeletal system] Onset: 02-11-2020 02-11-2020 Episodic Other connective tissue disease (3 sources) Spasticity; Translations: [Cramp and spasm] Onset: 03-05-2020 03-05-2020 Episodic Other gastrointestinal disorders (1 source) Dysphagia, unspecified; Translations: [Dysphagia, unspecified] Onset: 02-20-2025 Episodic Other nervous system disorders (3 sources) Paresthesia of right upper limb; Translations: [Paresthesia of skin] Onset: 02-07-2021 02-10-2021 Episodic Other nervous system disorders (1 source) Unspecified lack of coordination; Translations: [Unspecified lack of coordination] Onset: 02-20-2025 Episodic Other non-traumatic joint disorders (1 source) Pain in left knee; Translations: [Pain in joint, lower leg] Onset: 08-17-2023 08-17-2023 Episodic Residual codes; unclassified (1 source) Altered mental status Onset: 12-14-2024 Episodic Urinary tract infections (4 sources) Urinary tract infectious disease; Translations: [Urinary tract infection, site not specified] Onset: 10-21-2021 10-21-2021 Episodic Results Test Name Value Interpretation Reference Range Facility Relevant diagnostic tests/la boratory data Narrativeon 05-26-2025 Fall risk assessment no FLORENCIO Pelago Work Phone: MEDS REVIEW Documentation of current medications (procedure) [employer] Work Phone: MEDS REVIEWD Medications reviewed without changes [employer] Work Phone: Bilirubin Test strip Ql (U)O rdered By: Robb Barnes on 04-01-2025 Bilirubin Ql (U) Negative Negative [facility] Ketones Test strip Ql (U)Ord ered By: Robb Barnes on 04-01-2025 Ketones Ql (U) Negative Negative [facility] Nitrite Test strip Ql (U)Ord ered By: Robb Barnes on 04-01-2025 Nitrite Ql (U) Negative Negative [facility] Protein Test strip Ql (U)Ord ered By: Robb Barnes on 04-01-2025 Protein Ql (U) Negative Negative [facility] Urine clarityOrdered By: Renan Barnes on 04-01-2025 Clarity (U) Clear Clear [facility] Urine color determinationOrd ered By: Robb Barnes on 04-01-2025 Color (U) Yellow Yellow [facility] Urine cultureOrdered By: Renan Barnes on 04-01-2025 Bacteria identified Cx Nom (U) Culture exhibits no growth. [facility] Urine glucose detectionOrder ed By: Robb Barnes on 04-01-2025 Glucose Ql (U) Normal mg/dl Normal [facility] Urine leukocyte esterase det ection by dipstickOrdered By: Robb Barnes on 04-01-2025 Leukocyte esterase Test strip Ql (U) Negative Negative [facility] Urine pHOrdered By: Robb huerta on 04-01-2025 pH (U) 6.0 [pH] 5.0 - 8.0 [facility] Urine specific gravity measu rementOrdered By: Robb Barnes on 04-01-2025 Specific gravity (U) [Rel density] 1.015 1.002-1.030 [facility] Urine urobilinogen measureme ntOrdered By: Robb Barnes on 04-01-2025 Urobilinogen Ql (U) Normal mg/dl Normal [facility] Office Visiton 03-25-2025 Follow-up visit [id number] Elba Diaz 1950 F Date Provider Department Center 03/25/2025 [facility] TOMA None Family History Problem Relation Age of Onset Heart disease Mother Heart disease Father Carotid Artery Stenosis Father Family Status - Relation Status Age at Mother Father Level of Service:97590 [place] OFFICE/OUTPATIENT ESTABLISHED LOW MDM 20 MIN Reason for Visit and Comments: Follow-up [990653] Seizures [97] Normal [facility] Progress Noteon 03-25-2025 Progress Note [place] [address] [address] [facility] [address] Dept: [phone] Dept Loc: [phone] Stew Oswald MD CHIEF COMPLAINT: Chief Complaint Patient presents with Follow-up Seizures HISTORY OF PRESENT ILLNESS: The patient is a 74 y.o. person who returns with history of left hemiparesis after a stroke and convulsions. She denies any seizures since she was last here. She reports that she did have carotid ultrasound testing, but I do not have access to that report. She reports that knee pain in the left knee. She reports that this is limiting her from trying PT for regaining her left leg strength. She reports that she is actively seeing [facility] (I saw them a couple of weeks ago). Past Medical History: has a past medical history of Carotid stenosis, symptomatic, with infarction (HCC), Hemiparesis affecting left side as late effect of cerebrovascular accident (CVA) (HCC), Hyperlipidemia, and Hypothyroid. Past Surgical History: has a past surgical history that includes Appendectomy and total abdominal hysterectomy w bilateral salpingo-oophorectomy (historical). Medications: Current Medications[1] Allergies: Codeine and Levetiracetam Social History: Social History Socioeconomic History Marital status: Unknown Spouse name: Not on file Number of children: Not on file Years of education: Not on file Highest education level: Not on file Occupational History Not on file Tobacco Use Smoking status: Former Types: Cigarettes Passive exposure: Past Smokeless tobacco: Former Vaping Use Vaping status: Never Used Substance and Sexual Activity Alcohol use: Not Currently Drug use: Not Currently Sexual activity: Defer Other Topics Concern Not on file Social History Narrative Not on file Social Drivers of Health Financial Resource Strain: Low Risk (06/03/2020) Received from [facility] Overall Financial Resource Strain (CARDIA) Difficulty of Paying Living Expenses: Not hard at all Food Insecurity: No Food Insecurity (12/16/2024) Received from [facility] Hunger Vital Sign Worried About Running Out of Food in the Last Year: Never true Ran Out of Food in the Last Year: Never true Transportation Needs: No Transportation Needs (12/16/2024) Received from [facility] PRAPARE - Transportation Lack of Transportation (Medical): No Lack of Transportation (Non-Medical): No Physical Activity: Not on file Stress: Not on file Social Connections: Not on file Intimate Partner Violence: Not on file Housing Stability: Low Risk (12/16/2024) Received from [facility] Housing Stability Vital Sign Unable to Pay for Housing in the Last Year: No Number of Times Moved in the Last Year: 1 Homeless in the Last Year: No Family History: Family History[2] REVIEW OF SYSTEMS: Review of Systems Constitutional: Negative for appetite change, chills, diaphoresis, fever and unexpected weight change. HENT: Negative for dental problem and mouth sores. Eyes: Negative for discharge and itching. Respiratory: Negative for chest tightness. Cardiovascular: Negative for chest pain and leg swelling. Gastrointestinal: Negative for rectal pain and vomiting. Endocrine: Negative for polydipsia, polyphagia and polyuria. Genitourinary: Negative for decreased urine volume, flank pain and genital sores. Musculoskeletal: Positive for arthralgias. Left knee pain Skin: Negative for color change. Allergic/Immunologic: Negative for food allergies and immunocompromised state. Neurological: Positive for weakness. Hematological: Negative for adenopathy. Does not bruise/bleed easily. Psychiatric/Behavioral: Negative for agitation, behavioral problems, decreased concentration, sleep disturbance and suicidal ideas. PHYSICAL EXAM: Vitals: BP 90/56 (BP Location: Right arm, Patient Position: Sitting, BP Cuff Size: Adult) Pulse 51 General Appearance: Patient is in no apparent distress. Head is normocephalic, atraumatic Cardiovascular: Regular rate and rhythm. No heart murmurs. No carotid bruit Neurologic: Mentation: Alert and oriented to person, place and date. Speech and Language: Speech and language normal Concentration and Attention: Concentration normal Memory: Memory 3/3 immed, 3/3 short Fund of Knowledge: Fund of knowledge normal Cranial Nerves: II, III, IV, V, , VII, VIII, IX, X, XI, XII tested and were intact including fundoscopic exam (optic discs) and visual field to confrontation. Motor: Strength:Strength 5 out of 5 with normal tone on the right. She has left hemiplegia with increased tone on the left. Alternating Movements: Normal Cogwheel Rigidity: None Tone: Tone is normal Tremor / Involuntary Movements: None Coordination: Normal coordination upper and lower extremities on the right cannot move the left Gait and Station: wheel (more content not included)... [facility] 36on 02-10-2025 36 OK to send that plac e the order. [facility] [address] [facility]@ [phone]. HARVEY [place] is Valid if performed in facility. Called Ketty @ [facility] [phone] . [facility] 36 Ketty-from [facility], said patient was ordered a Vascular US carotic arteries bilateral Ins won't pay if she goes by a cot and this is only way patient can be transferred However, the facility does have a company that comes to [facility] And can do the Vascular US at [facility] Would this be OK? #[phone]-Ketty at [facility] Office Visiton 02-06-2025 Follow-up visit [id number] Elba Diaz 1950 F Date Provider Department Center 02/06/2025 [id number] T[facility] None Family History Problem Relation Age of Onset Heart disease Mother Heart disease Father Carotid Artery Stenosis Father Family Status - Relation Status Age at Mother Father Level of Service:51113 [place] OFFICE/OUTPATIENT NEW HIGH MDM 60 MINUTES Reason for Visit and Comments: New Patient [542] Memory Loss [66] Normal [facility] Progress Noteon 02-06-2025 Progress Note [facility] [place] [address] [facility] [address] Dept: [phone] Dept Loc: [phone] Stew Oswald MD CHIEF COMPLAINT: Chief Complaint Patient presents with New Patient Memory Loss HISTORY OF PRESENT ILLNESS: The patient is a 74 y.o. person who presents with history of left hemiparesis after a stroke and convulsions. According to her son, she was recently in the hospital at for mental status change and shaking movements in the right arm and right leg. According to a note from from December, she was evaluated by neurology (I do not have that note) and they started her on Vimpat BID. She is not on Vimpat. According to the note from , she had recently been switched from Depakote to Keppra, but she is not on either of those meds currently. She is not a great historian. She denies memory issues, but the chart and the patient's son reports that memory. Her son reports that she was primarily confused and dazed and she has been slowly recovering over the last few weeks. Past Medical History: has a past medical history of Carotid stenosis, symptomatic, with infarction (HCC), Hemiparesis affecting left side as late effect of cerebrovascular accident (CVA) (HCC), Hyperlipidemia, and Hypothyroid. Past Surgical History: has a past surgical history that includes Appendectomy and total abdominal hysterectomy w bilateral salpingo-oophorectomy (historical). Medications: Current Outpatient Medications: acetaminophen (Tylenol) 325 MG tablet, Take 650 mg by mouth every 6 hours as needed., Disp: , Rfl: alendronate (Fosamax) 70 MG tablet, Take 70 mg by mouth once a week., Disp: , Rfl: clopidogrel (Plavix) 75 MG tablet, Take 75 mg by mouth daily., Disp: , Rfl: D-Mannose 500 MG capsule, Take 500 mg by mouth daily., Disp: , Rfl: Diclofenac Sodium (Voltaren) 1 % gel, Apply 4 g topically 3 times a day., Disp: , Rfl: DULoxetine (Cymbalta) [address] capsule, Take 30 mg by mouth daily., Disp: , Rfl: estradiol (Vivelle-DOT) 0.05 MG/24HR, Place 1 patch on the skin once a week., Disp: , Rfl: ferrous sulfate 325 (65 Fe) MG tablet, Take 325 mg by mouth every other day., Disp: , Rfl: levothyroxine (Synthroid, Levoxyl) 175 MCG tablet, , Disp: , Rfl: mirabegron ER (Myrbetriq) 25 MG 24 hr tablet, Take 25 mg by mouth daily., Disp: , Rfl: potassium chloride ER (Micro-K) 10 MEQ ER capsule, Take 10 mEq by mouth daily., Disp: , Rfl: pregabalin (Lyrica) 150 MG capsule, Take 150 mg by mouth daily., Disp: , Rfl: rOPINIRole (Requip) 0.5 MG tablet, Take 1 mg by mouth daily at bedtime., Disp: , Rfl: calcium carbonate-cholecalcifer ol (Oyster Shell) 250-3.125 MG-MCG tablet, Take 1 tablet by mouth., Disp: , Rfl: lacosamide (Vimpat) 100 MG tablet, Take 1 tab po QPM for 10 days, then take 1 tab po BID., Disp: 50 tablet, Rfl: 0 LYSINE PO, Take 500 mg by mouth daily. Take 2 tabs daily, Disp: , Rfl: MAGNESIUM OXIDE PO, Take 250 mg by mouth daily., Disp: , Rfl: [START ON 03/08/2025] Vimpat 100 MG tablet, Take 1 tablet (100 mg) by mouth 2 times daily. Do not start before March 08, 2025., Disp: 60 tablet, Rfl: 2 Allergies: Codeine and Levetiracetam Social History: Social History Socioeconomic History Marital status: Unknown Spouse name: Not on file Number of children: Not on file Years of education: Not on file Highest education level: Not on file Occupational History Not on file Tobacco Use Smoking status: Former Types: Cigarettes Passive exposure: Past Smokeless tobacco: Former Vaping Use Vaping status: Former Substance and Sexual Activity Alcohol use: Not on file Drug use: Not on file Sexual activity: Not on file Other Topics Concern Not on file Social History Narrative Not on file Social Drivers of Health Financial Resource Strain: Low Risk (06/03/2020) [facility] Overall Financial Resource Strain (CARDIA) Difficulty of Paying Living Expenses: Not hard at all Food Insecurity: No Food Insecurity (12/16/2024) Received from [facility] Hunger Vital Sign Worried About Running Out of Food in the Last Year: Never true Ran Out of Food in the Last Year: Never true Transportation Needs: No Transportation Needs (12/16/2024) Received from [facility] PRAPARE - Transportation Lack of Transportation (Medical): No Lack of Transportation (Non-Medical): No Physical Activity: Not on file Stress: Not on file Social Connections: Not on file Intimate Partner Violence: Not on file Housing Stability: Low Risk (12/16/2024) Received from [facility] Housing Stability Vital Sign Unable to Pay for Housing in the Last Year: No Number of Times Moved in the Last Year: 1 Homeless in the Last Year: No Family History: Family History Problem Relation Name Age of Onset Heart disease Mother Heart disease Father Carotid Artery St (more content not included)... Normal [facility] Anion gap in Serum or Plasma Ordered By: Robb Barnes on 01-14-2025 Anion gap [Moles/Vol] 11 mmol/L 5-15 [facility] BUN/creatinine ratioOrdered By: Robb Barnes on 01-14-2025 Urea nitrogen/Creatinine [Mass ratio] 40.4 mg/mg High 10-20 [facility] Bilirubin, totalOrdered By: Robb Barnes on 01-14-2025 Bilirubin [Mass/Vol] 0.21 mg/dL 0.00-1.30 [facility] Carbon dioxide, total [Moles /volume] in Central venous bloodOrdered By: Robb Barnes on 01-14-2025 CO2 [Moles/Vol] 21.7 mmol/L 21.0-32.0 [facility] Chloride assayOrdered By: Ramila Barnes on 01-14-2025 Chloride [Moles/Vol] 107 mmol/L 98-108 [facility] Erythrocyte distribution wid th (RBC) [Ratio]Ordered By: Robb Barnes on 01-14-2025 Erythrocyte distribution width (RBC) [Entitic vol] 49.8 fL High 35.1-43.9 [facility] Erythrocyte distribution wid th ratioOrdered By: Robb Barnes on 01-14-2025 Erythrocyte distribution width (RBC) [Ratio] 14.0 % 11.6-14.6 [facility] Erythrocyte distribution wid th standard deviationOrdered By: Robb Barnes on 01-14-2025 Erythrocyte distribution width (RBC) [Ratio] 49.8 fl High 35.1-43.9 [facility] GFR/1.73 sq M.predicted juwan g non-blacks MDRD (S/P/Bld) [Vol rate/Area]Ordered By: Robb Barnes on 01-14-2025 Estimated GFR (MDRD) Non-Af Amer 104 >60 [facility] Comment on above: mL/min/1.73m2 CKD-EP I Creatinine Equation (2020) Glomerular filtration rate ( GFR) estimation/1.73 sq m using serum, plasma, or whole bOrdered By: Robb Barnes on 01-14-2025 GFR/1.73 sq M.predicted among non-blacks MDRD (S/P/Bld) [Vol rate/Area] 104 mL/min/{1.73_m2} >60 [facility] Comment on above: mL/min/1.73m2 CKD-EP I Creatinine Equation (2020) Hematocrit Auto (Bld) [Volum e fraction]Ordered By: Robb Barnes on 01-14-2025 Hematocrit (Bld) [Volume fraction] 35.0 % Low 37-47 [facility] Hemoglobin measurementOrdere d By: Robb Barnes on 01-14-2025 Hemoglobin (Bld) [Mass/Vol] 11.2 g/dL Low 12.0-15.0 [facility] Laboratory - Chemistry and C hemistry - challengeOrdered By: Robb Barnes on 01-14-2025 AST [Catalytic activity/Vol] 47 U/L High <32 [facility] MCV (mean corpuscular volume ) determinationOrdered By: Robb Barnes on 01-14-2025 MCV (RBC) [Entitic vol] 100.9 fL High 81-99 [facility] Mean corpuscular hemoglobin (MCH) determinationOrdered By: Robb Barnes on 01-14-2025 MCH (RBC) [Entitic mass] 32.3 pg High 27.0-32.0 [facility] Mean corpuscular hemoglobin concentration (MCHC) determinationOrdered By: Robb Barnes on 01-14-2025 MCHC (RBC) [Mass/Vol] 32.0 g/dL 32-36 [facility] Mean platelet volume determi nationOrdered By: Robb Barnes on 01-14-2025 Platelet mean volume (Bld) [Entitic vol] 8.8 fL 6.2-12.0 [facility] Platelet countOrdered By: Ramila Barnes on 01-14-2025 Platelets (Bld) [#/Vol] 305 10*3/uL 150-450 [facility] Potassium (Unsp spec) [Mass/ Vol]Ordered By: Robb Barnes on 01-14-2025 Potassium [Moles/Vol] 4.0 mmol/L 3.3-5.1 [facility] Potassium measurement (mass/ volume)Ordered By: Robb Barnes on 01-14-2025 Potassium (Unsp spec) [Mass/Vol] 4.0 mmol/L 3.3-5.1 [facility] RBC Auto (Bld) [#/Vol]Ordere d By: Robb Barnes on 01-14-2025 RBC (Bld) [#/Vol] 3.47 10*6/uL Low 4.2-5.4 [facility] Serum creatinine measurement (mass/volume)Ordered By: Robb Barnes on 01-14-2025 Creatinine [Mass/Vol] 0.41 mg/dL Low 0.70-1.20 [facility] Serum globulin measurementOr dered By: Robb Barnes on 01-14-2025 Globulin (S) [Mass/Vol] 2.5 g/dL 2.2-4.2 [facility] Serum glucose measurement (m ass/volume)Ordered By: Robb Barnes on 01-14-2025 Glucose [Mass/Vol] 105 mg/dL High 70-99 [facility] Serum or plasma alanine timmons otransferase (ALT) measurementOrdered By: Robb Barnes on 01-14-2025 ALT [Catalytic activity/Vol] 27 U/L <35 [facility] Serum or plasma albumin claudette urement (mass/volume)Ordered By: Robb Barnes on 01-14-2025 Albumin [Mass/Vol] 3.0 g/dL Low 3.4-4.8 [facility] Serum or plasma albumin/glob ulin mass ratioOrdered By: Robb Barnes on 01-14-2025 Albumin/Globulin [Mass ratio] 1.2 {ratio} 0.9-2.4 [facility] Serum or plasma alkaline karson sphatase measurementOrdered By: Robb Barnes on 01-14-2025 ALP [Catalytic activity/Vol] 52 U/L 35-104 [facility] Serum or plasma calcium claudette urement (mass/volume)Ordered By: Robb Barnes on 01-14-2025 Calcium [Mass/Vol] 7.5 mg/dL Low 7.6-11.0 [facility] Serum or plasma urea nitroge n measurement (mass/volume)Ordered By: Robb Barnes on 01-14-2025 Urea nitrogen [Mass/Vol] 16 mg/dL 4-19 [facility] Sodium levelOrdered By: Vern Barnes on 01-14-2025 Sodium [Moles/Vol] 139 mmol/L 133-145 [facility] Total proteinOrdered By: Renan Barnes on 01-14-2025 Protein [Mass/Vol] 5.4 g/dL Low 5.9-8.4 [facility] White blood cell (WBC) count Ordered By: Robb Barnes on 01-14-2025 WBC (Bld) [#/Vol] 8.3 10*3/uL 4.4-11.0 [facility] Basic metabolic 2000 panelon 01-13-2025 Anion gap [Moles/Vol] 10 mmol/L Normal 8-15 [facility] Comment on above: Order Comment: Speci men Type: BLOOD SPECIMENOrdering Facility: [facility] Address: [address] [place] [address] Performed By: #### 2 4320-2, ####[facility]ATORYCLIA [id number] [place] [address] [place] Calcium [Mass/Vol] 9.3 mg/dL Normal 8.5-10.2 [facility] Comment on above: Order Comment: Speci men Type: BLOOD SPECIMENOrdering Facility: [facility] Address: [address] [place] [address] Performed By: #### 2 1-2, ####[facility]ORATORYCLIA [id number] [place] [address] [place] Chloride [Moles/Vol] 104 mmol/L Normal 98-107 [facility] Comment on above: Order Comment: Speci men Type: BLOOD SPECIMENOrdering Facility: [facility] Address: [address] [place] [address] Performed By: #### 2 2, ####[facility]ORATORYCLIA [id number] [address] STATES OF [facility] CO2 [Moles/Vol] 22 mmol/L Normal 22-30 [facility] Comment on above: Order Comment: Speci men Type: BLOOD SPECIMENOrdering Facility: [facility] Address: [address] [place] [address] Performed By: #### 2 2, ####[facility]ATORYCLIA [id number] [address] [place] Creatinine [Mass/Vol] 0.49 mg/dL Low 0.58-0.96 [facility] Comment on above: Order Comment: Speci men Type: BLOOD SPECIMENOrdering Facility: [facility] Address: [address] [place] [address] Performed By: #### 2 2, ####[facility]ORYCLIA [id number] [address] [place] Creatinine and Glomerular filtration rate.predicted panel (S/P/Bld) 100 mL/min/1.73m??? Normal >=60 [facility] Comment on above: Order Comment: Vicky montilla Type: BLOOD SPECIMENOrdering Facility: [facility] Address: [address] [place] [address] Result Comment: Cecy mated Glomerular Filtration Rate (eGFR) is calculated using the 2020 CKD-EPI creatinine equation. This equation utilizes serum creatinine, sex, and age as parameters. The creatinine assay has traceable calibration to isotope dilution-mass spectrometry. Refer to KDIGO guidelines for clinical interpretation. In patients with unstable renal function, e.g. those with acute kidney injury, the eGFR may not accurately reflect actual GFR. Performed By: #### 2 4321-2, 08399-3 ####[facility]ORATORYCLIA [id number] [place] [address] [place] Glucose [Mass/Vol] 117 mg/dL High 74-99 [facility] Comment on above: Order Comment: Vicky montilla Type: BLOOD SPECIMENOrdering Facility: [facility] Address: [address] [place] [address] Result Comment: The [place] Diabetes Association (ADA) provides guidance for cutoff values for fasting glucose and random glucose. The ADA defines fasting as no caloric intake for at least 8 hours. Fasting plasma glucose results between 100 to 125 mg/dL indicate increased risk for diabetes (prediabetes). Fasting plasma glucose results greater than or equal to 126 mg/dL meet the criteria for diagnosis of diabetes. In the absence of unequivocal hyperglycemia, results should be confirmed by repeat testing. In a patient with classic symptoms of hyperglycemia or hyperglycemic crisis, random plasma glucose results greater than or equal to 200 mg/dL meet the criteria for diagnosis of diabetes. Reference: Standards of Medical Care in Diabetes 2016, [place] [employer] Association. Diabetes Care. 2016.39(Suppl 1). Performed By: #### 2 4321-2, 41442-0 ####[facility]ORATORYCLIA [id number] [place] [address] [place] Potassium [Moles/Vol] 4.6 mmol/L Normal 3.7-5.1 [facility] Comment on above: Order Comment: Vicky montilla Type: BLOOD SPECIMENOrdering Facility: [facility] Address: [address] [place] [address] Performed By: #### 2 1-2, ####[facility]ORATORYCLIA [id number] [place] [address] [place] [facility] Sodium [Moles/Vol] 136 mmol/L Normal 136-144 [facility] Comment on above: Order Comment: Speci men Type: BLOOD SPECIMENOrdering Facility: [facility] Address: [address] [place] [address] Performed By: #### 2 4321-2, ####[facility]ORATORYCLIA [id number] [address] [place] Urea nitrogen [Mass/Vol] 18 mg/dL Normal 7-21 [facility] Comment on above: Order Comment: Speci men Type: BLOOD SPECIMENOrdering Facility: [facility] Address: [address] [place] [address] Performed By: #### 2 2, ####[facility]ORATORYCLIA [id number] [address] CBC panel Auto (Bld)on 01-13 Erythrocyte distribution width (RBC) [Ratio] 13.6 % Normal 11.5-15.0 [facility] Comment on above: Order Comment: Speci men Type: BLOOD SPECIMEN Ordering Facility: [facility] Address: [address] [place] [address] Performed By: #### 2 1-2, , 3015-3 #### [facility] CLIA [id number] [address] Hematocrit (Bld) [Volume fraction] 34.1 % Low 36.0-46.0 [facility] Comment on above: Order Comment: Speci men Type: BLOOD SPECIMEN Ordering Facility: [facility] Address: [address] [place] [address] Performed By: #### 2 4321-2, 82992-5, 3015-3 #### [facility] CLIA [id number] [address] [place] Hemoglobin (Bld) [Mass/Vol] 11.3 g/dL Low 11.5-15.5 [facility] Comment on above: Order Comment: Speci men Type: BLOOD SPECIMEN Ordering Facility: [facility] Address: [address] [place] [address] Performed By: #### 2 4321-2, , 3 #### [facility] CLIA [id number] [address] MCH (RBC) [Entitic mass] 32.9 pg Normal 26.0-34.0 [facility] Comment on above: Order Comment: Speci men Type: BLOOD SPECIMEN [facility]ing Facility: [facility] Address: [address] [place] [address] Performed By: #### 2 4321-2, , 3 #### [facility] CLIA [id number] [address] MCHC (RBC) [Mass/Vol] 33.1 g/dL Normal 30.5-36.0 [facility] Comment on above: Order Comment: Speci men Type: BLOOD SPECIMEN [facility]ing Facility: [facility] Address: [address] [place] [address] Performed By: #### 2 432-2, , 3 #### [facility] CLIA [id number] [address] MCV (RBC) [Entitic vol] 99.4 fL Normal 80.0-100.0 [facility] Comment on above: Order Comment: Speci men Type: BLOOD SPECIMEN Ordering Facility: [facility] Address: [address] [place] [address] Performed By: #### 2 432-2, , 3 #### [facility] CLIA [id number] [address] Nucleated RBC (Bld) [#/Vol] 0.06 10*3/uL High <0.01 [facility] Comment on above: Order Comment: Speci men Type: BLOOD SPECIMEN Ordering Facility: [facility] Address: [address] [place] [address] Performed By: #### 2 4321-2, , 3 #### [facility] CLIA [id number] 1 [place] [address] [place] Platelet mean volume (Bld) [Entitic vol] 8.5 fL Low 9.0-12.7 [facility] Comment on above: Order Comment: Speci men Type: BLOOD SPECIMEN Ordering Facility: [facility] Address: [address] [place] [address] Performed By: #### 2 4321-2, , 3 #### [facility] CLIA [id number] [address] [place] Platelets (Bld) [#/Vol] 266 10*3/uL Normal 150-400 [facility] Comment on above: Order Comment: Speci men Type: BLOOD SPECIMEN Ordering Facility: [facility] Address: [address] [place] [address] Performed By: #### 2 4321-2, , 3015-12 #### [facility] CLIA [id number] 1 [place] [address] [place] RBC (Bld) [#/Vol] 3.43 10*6/uL Low 3.90-5.20 [facility] Comment on above: Order Comment: Speci men Type: BLOOD SPECIMEN Ordering Facility: [facility] Address: [address] [place] [address] Performed By: #### 2 4321-2, , 3 #### [facility] CLIA [id number] 1 [place] [address] [place] WBC (Bld) [#/Vol] 9.23 10*3/uL Normal 3.70-11.00 [facility] Comment on above: Order Comment: Speci men Type: BLOOD SPECIMEN Ordering Facility: [facility] Address: [address] [place] [address], [place] [address] Performed By: #### 2 4321-2, 48290-6, 3016-3 #### [facility] CLIA [id number] 1 [place] [id number] [facility] CNDSon 01-13-2025 CNDS HNO ID: [id number] Author: NILTON RODRIGUEZ DO Service: Hospital Medicine Author Type: Physician Type: Discharge Summary Filed: 01/13/2025 16:15 Note Text: DISCHARGE SUMMARY PATIENT NAME: Elba Diaz Code Status: DNR-CCA Highest Readmission Risk Score: 22 The 30 day readmissions risk score is derived from an internally validated risk model which evaluates patient level characteristics, utilization history, medication orders and lab results up until the day of discharge. Patients with a score of 39 or above are considered highest risk for readmission. Specific patient level drivers will be listed at the bottom of the summary. Admission Information Admission Information ADMIT DATE: 01/09/2025 DISCHARGE DATE: 01/13/2025 MY DOCTORS AND MEDICAL TEAM: My Main Hospital Doctor: Nilton Rodriguez DO Primary Care Provider: No primary care provider on file. My Medical Team Members: Treatment Team: Attending Provider: Nilton Rodriguez DO Primary Service: BANG BLOOM MY CONDITION AT DISCHARGE: Stable REASON I WAS IN THE HOSPITAL: Metabolic encephalopathy SUMMARY OF WHAT HAPPENED WHILE I WAS IN THE HOSPITAL: Patient was admitted for Metabolic encephalopathy. 74 y/o female with left sided hemiparesis 2/2 to CVA, Epilepsy, HTN, Hypothyroidism, Cognitive impairment who was admitted on 01/09 from her ECF due to AMS. Patient had recent switch from Depakote to Keppra on 01/08. Patient also had recent changes in her diet due to dysphagia- currently on minced and moist and mildly thickened liquids at her facilyt. Per family she is not moving the right side of her body normally on admission. Neurology consulted that recommended starting vimpat. Patient was loaded with vimpat and will be discharged on 100 mg BID. Neurology also noted per chart review/discussing with son that Homer had cased the patient to have altered mental status in the past. MRI obtained and was negative for acute stroke. Patient's mentation and right sided weakness are improving. Speech evaluated patient while admitted and recommended pureed diet with thickened liquids, meds crushed. She is medically stable to discharge to her ECF. OTHER PROBLEMS/DIAGNOSIS: Principal Problem: AMS (altered mental status) Active Problems: Toxic metabolic encephalopathy Resolved Problems: * No resolved hospital problems. * OPERATIONS PERFORMED WHILE IN THE HOSPITAL: None IMPORTANT TEST/PROCEDURES: MRI TEST RESULTS NOT AVAILABLE AT THIS TIME: No pending results Discharge Disposition Activity When You Leave the Hospital Activity Resume pre-hospital activity Diet Instructions Diet Purred diet, nectar thick liquids, meds crushed in puree For Pain When You Leave the Hospital Pain Control Use acetaminophen (Tylenol) as recommended on the bottle. Wound/Surgical Site Care Wound/Surgical Site care No wounds Return to Work Return to Work Call Your Doctor If Call your Doctor Worsening confusion Follow Up Appointments Follow-up Appointment When: In 2 weeks Patient/Parents to call for appointment?: Yes Stew Oswald MD [phone] [address] [facility] 14 [facility] [address] PCP Requested Referral Additional Provider to Provider Information: 74 y/o female with left sided hemiparesis 2/2 to CVA, Epilepsy, HTN, Hypothyroidism, Cognitive impairment who was admitted on 01/09 from her ECF due to AMS. Patient had recent switch from Depakote to Keppra on 01/08. Patient also had recent changes in her diet due to dysphagia- currently on minced and moist and mildly thickened liquids at her facilyt. Per family she is not moving the right side of her body normally on admission. Neurology consulted that recommended starting vimpat. Patient was loaded with vimpat and will be discharged on 100 mg BID. Neurology also noted per chart review/discussing with son that Homer had cased the patient to have altered mental status in the past. MRI obtained and was negative for acute stroke. Patient's mentation and right sided weakness are improving. Speech evaluated patient while admitted and recommended pureed diet with thickened liquids, meds crushed. She is medically stable to discharge to her ECF. Wound 01/10/25 021 Pressure Injury Heel Right (Active) Properties Placement Date 01/10/25 Placement Time 212 Location Heel Present on Original Admission Yes Primary Wound Type Pressure Injury If Pressure Injury, is it Device Related? If Yes, Add Device Type in Comment Box No Wound Location Orientation Right Assessments 01/12/2025 9:45 AM Wound Image IF PATIENT HAS A PRESSURE INJURY: WHEN WAS IT ACQUIRED? (Document one time during this admission) Present on Admission during this Encounter Wound 01/10/25 021 Pressure Injury Heel Left (Active) Properties Placement Date 01/10/25 Placement Time 213 Location Heel Present on Original Admission Yes Primary Wound Type Pressure In (more content not included)... Normal [facility] Magnesium SerPl-mCncon 01-13 Magnesium [Mass/Vol] 1.7 mg/dL Normal 1.7-2.3 [facility] Comment on above: Order Comment: Speci men Type: BLOOD SPECIMENOrdering Facility: [facility] Address: [address] [place] [address] Performed By: #### 2 432-2, ####[facility] [id number] [place] [address] [place] Basic metabolic 2000 panelon 01-12-2025 Anion gap [Moles/Vol] 12 mmol/L Normal 8-15 [facility] Comment on above: Order Comment: Speci men Type: BLOOD SPECIMENOrdering Facility: [facility] Address: [address] [place] [address] Performed By: #### 2 4320-2, ####[facility] [id number] [place] [address] [place] Calcium [Mass/Vol] 9.2 mg/dL Normal 8.5-10.2 [facility] Comment on above: Order Comment: Speci men Type: BLOOD SPECIMENOrdering Facility: [facility] Address: [address] [place] [address] Performed By: #### 2 432-2, ####[facility] [id number] [place] [address] [place] Chloride [Moles/Vol] 104 mmol/L Normal 98-107 [facility] Comment on above: Order Comment: Speci men Type: BLOOD SPECIMENOrdering Facility: [facility] Address: [address] [place] [address] Performed By: #### 2 4320-2, ####[facility] [id number] [place] [id number] [place] [facility] CO2 [Moles/Vol] 20 mmol/L Low 22-30 [facility] Comment on above: Order Comment: Speci men Type: BLOOD SPECIMENOrdering Facility: [facility] Address: [address] [place] [address] Performed By: #### 2 4320-11, ####[facility] [id number] [place] [id number] [place] Creatinine [Mass/Vol] 0.50 mg/dL Low 0.58-0.96 [facility] Comment on above: Order Comment: Speci men Type: BLOOD SPECIMENOrdering Facility: [facility] Address: [address] [place] [address] Performed By: #### 2 4320-11, ####[facility] [id number] [address] Creatinine and Glomerular filtration rate.predicted panel (S/P/Bld) 99 mL/min/1.73m??? Normal >=60 [facility] Comment on above: Order Comment: Speci men Type: BLOOD SPECIMENOrdering Facility: [facility] Address: [address] [place] [address] Result Comment: Cecy mated Glomerular Filtration Rate (eGFR) is calculated using the 2020 CKD-EPI creatinine equation. This equation utilizes serum creatinine, sex, and age as parameters. The creatinine assay has traceable calibration to isotope dilution-mass spectrometry. Refer to KDIGO guidelines for clinical interpretation. In patients with unstable renal function, e.g. those with acute kidney injury, the eGFR may not accurately reflect actual GFR. Performed By: #### 2 43210-23, ####[facility]IA [id number] [place] [address] [place] Glucose [Mass/Vol] 106 mg/dL High 74-99 [facility] Comment on above: Order Comment: Speci men Type: BLOOD SPECIMENOrdering Facility: [facility] Address: [address] [place] [address] Result Comment: The [place] Diabetes Association (ADA) provides guidance for cutoff values for fasting glucose and random glucose. The ADA defines fasting as no caloric intake for at least 8 hours. Fasting plasma glucose results between 100 to 125 mg/dL indicate increased risk for diabetes (prediabetes). Fasting plasma glucose results greater than or equal to 126 mg/dL meet the criteria for diagnosis of diabetes. In the absence of unequivocal hyperglycemia, results should be confirmed by repeat testing. In a patient with classic symptoms of hyperglycemia or hyperglycemic crisis, random plasma glucose results greater than or equal to 200 mg/dL meet the criteria for diagnosis of diabetes. Reference: Standards of Medical Care in Diabetes 2016, [place] [employer] Association. Diabetes Care. 2016.39(Suppl 1). Performed By: #### 2 432-, ####[facility]ORY[facility]IA [id number] [place] [address] [place] Potassium [Moles/Vol] 4.8 mmol/L Normal 3.7-5.1 [facility] Comment on above: Order Comment: Speci men Type: BLOOD SPECIMENOrdering Facility: [facility] Address: [address] [place] [address] Performed By: #### 2 43210-23, ####[facility]ORYCLIA [id number] [place] [address] [place] Sodium [Moles/Vol] 136 mmol/L Normal 136-144 [facility] Comment on above: Order Comment: Speci men Type: BLOOD SPECIMENOrdering Facility: [facility] Address: [address] [place] [id number] Performed By: #### 2 4320-11, ####[facility]ORYCLIA [id number] [place] [address] [place] Urea nitrogen [Mass/Vol] 15 mg/dL Normal 7-21 [facility] Comment on above: Order Comment: Speci men Type: BLOOD SPECIMENOrdering Facility: [facility] Address: [address] [place] [address] Performed By: #### 2 4321-2, ####[facility]ORYCLIA [id number] [address] CBC panel Auto (Bld)on 01-12 Erythrocyte distribution width (RBC) [Ratio] 13.7 % Normal 11.5-15.0 [facility] Comment on above: Order Comment: Speci men Type: BLOOD SPECIMEN Ordering Facility: [facility] Address: [address] [place] [address] Performed By: #### 2 4321-2, , 3015-3 #### [facility] CLIA [id number] [address] Hematocrit (Bld) [Volume fraction] 36.4 % Normal 36.0-46.0 [facility] Comment on above: Order Comment: Speci men Type: BLOOD SPECIMEN Ordering Facility: [facility] Address: [address] [place] [address] Performed By: #### 2 4320-2, , 3015-3 #### [facility] CLIA [id number] [address] [facility] Hemoglobin (Bld) [Mass/Vol] 11.8 g/dL Normal 11.5-15.5 [facility] Comment on above: Order Comment: Speci men Type: BLOOD SPECIMEN Ordering Facility: [facility] Address: [address] [place] [address] Performed By: #### 2 4321-2, , 3015-3 #### [employer] [facility] CLIA [id number] [address] [place] MCH (RBC) [Entitic mass] 33.1 pg Normal 26.0-34.0 [facility] Comment on above: Order Comment: Speci men Type: BLOOD SPECIMEN Ordering Facility: [facility] Address: [address] [place] [address] Performed By: #### 2 4321-2, , 3015-3 #### [facility] CLIA [id number] [address] [place] [facility] MCHC (RBC) [Mass/Vol] 32.4 g/dL Normal 30.5-36.0 [facility] Comment on above: Order Comment: Speci men Type: BLOOD SPECIMEN Ordering Facility: [facility] Address: [address] [place] [address] Performed By: #### 2 4321-2, , 3 #### [facility] CLIA [id number] [address] MCV (RBC) [Entitic vol] 102.0 fL High 80.0-100.0 [facility] Comment on above: Order Comment: Speci men Type: BLOOD SPECIMEN Ordering Facility: [facility] Address: [address] [place] [address] Performed By: #### 2 4320-2, , 3 #### [facility] CLIA [id number] [address] Nucleated RBC (Bld) [#/Vol] 10*3/uL Normal <0.01 [facility] Comment on above: Order Comment: Speci men Type: BLOOD SPECIMEN Ordering Facility: [facility] Address: [address] [place] [address] Performed By: #### 2 4320-2, , 3 #### [facility] CLIA [id number] [address] [place] Platelet mean volume (Bld) [Entitic vol] 8.4 fL Low 9.0-12.7 [facility] Comment on above: Order Comment: Speci men Type: BLOOD SPECIMEN Ordering Facility: [facility] Address: [address] [place] [address] Performed By: #### 2 4320-2, , 3 #### [facility] CLIA [id number] [address] [place] Platelets (Bld) [#/Vol] 242 10*3/uL Normal 150-400 [facility] Comment on above: Order Comment: Speci men Type: BLOOD SPECIMEN Ordering Facility: [facility] Address: [address] [place], [place] [address] Performed By: #### 2 4321-2, 52575-2, 3015-3 #### [facility] CLIA [id number] [address] [place] [address] [place] RBC (Bld) [#/Vol] 3.57 10*6/uL Low 3.90-5.20 [facility] Comment on above: Order Comment: Speci men Type: BLOOD SPECIMEN Ordering Facility: [facility] Address: [address] [place] [address] Performed By: #### 2 4321-2, , 3 #### [facility] CLIA [id number] 1 [place] [address] [place] WBC (Bld) [#/Vol] 9.56 10*3/uL Normal 3.70-11.00 [facility] Comment on above: Order Comment: Speci men Type: BLOOD SPECIMEN Ordering Facility: [facility] Address: [address] [place] [address] Performed By: #### 2 4321-2, , 3 #### [facility] CLIA [id number] [address] [facility] CONSULT PROGon 01-12-2025 CONSULT PROG HNO ID: [id number] Author: PATY GLASGOW APRN.EQUIPMENT TESTER Service: Neurology General Author Type: Nurse Practitioner Type: Consult Progress Note Filed: 01/12/2025 10:29 Note Text: NEUROLOGY CONSULT PROGRESS NOTE SERVICE DATE: 01/12/2025 SERVICE TIME: 1005 Current Attending Provider: Nilton Rodriguez DO Subjective Interval History: Patient resting. NAEON. Testing, diagnosis, medications reviewed with patient. All questions answered to satisfaction. Elba is improved. Neurological ROS: No complaint of headache No complaint of diplopia No complaints of blurred vision. No complaint of new arm/leg numbness No problem with limb coordination No complaints of seizures. Objective Physical Examination: NEURO: Asleep but wakes easily to name Oriented to person, place, year not month January and states her age is 28 Speech mild dysarthria but also poor dentition No facial weakness Left spastic hemiplegia with foot droop R UE 5/5, R LE 4/5 Intact sensation to LT Does have intermittent R/L confusion on exam but corrects herself so less likely to represent neglect> likely 2/2 remaining confusion New Labs: WBC Date Value 01/12/2025 9.56 k/uL 01/11/2025 8.76 k/uL 01/10/2025 11.16 k/uL 06/08/2020 7.48 k/uL 06/04/2020 7.74 thou/cmm 05/18/2020 7.08 thou/cmm RBC Date Value 01/12/2025 3.57 m/uL 01/11/2025 3.68 m/uL 01/10/2025 3.27 m/uL 06/08/2020 3.45 m/uL 06/04/2020 3.29 mil/cmm 05/18/2020 3.26 mil/cmm Platelet Count Date Value 01/12/2025 242 k/uL 01/11/2025 227 k/uL 01/10/2025 168 k/uL 06/08/2020 239 k/uL 06/04/2020 204 thou/cmm 05/18/2020 205 thou/cmm BUN (mg/dL) Date Value 01/12/2025 15 01/11/2025 15 01/10/2025 21 06/08/2020 17 06/08/2020 17 06/04/2020 20 Creatinine (mg/dL) Date Value 01/12/2025 0.50 01/11/2025 0.45 01/10/2025 0.32 06/08/2020 0.99 06/08/2020 0.96 06/04/2020 0.92 Creatinine (POCT) (mg/dL) Date Value 02/01/2021 0.85 CBC, Coags, BMP, Mg, Phos Recent Labs 01/12/25 0317 01/11/25 0550 01/10/25 0236 NA 136 131* 135* K 4.8 4.3 3.3* CHLOR 104 100 104 CO2 20* 18* 22 GLUC 106* 91 100* CA 9.2 8.9 8.2* MG 1.9 2.3 1.6* Liver Function, Amylase, AND Lipase Recent Labs 01/09/25 1410 TPROT 5.8* ALB 3.1* ALT 12 AST 22 ALKPHOS 66 TBILI <0.2* DATA: Diagnostic tests reviewed for today's visit: Most recent labs and imaging results. Impression/Recommendati ons 74 yo female admitted for weakness and confusion. Recent admission 12/14 for Dehydration and UTI recently - was gradually improving since then. Brought back to be evaluated due to fluctuating confusion and possible neglect on exam. Pint Please (limited info) shows that Keppra started on 01/01? Due to subtherapeutic VPA level? Had issues with Keppra in past. # toxic metabolic encephalopathy ~ improved off Keppra ~ Keppra added to Allergy list ~ Vimpat 100 mg BID should be DC med ~ follow up with her Neurologist (Dr Oswald) ~ seizure precautions ~ patient does not drive and is WC/bedbound The Neurology service will not be routinely seeing or reviewing this patient for the remainder of this admission. Please page [phone] if further questions or issues arise. Discharge instructions updated SIGNATURE: Paty Glasgow, JONELLE.EQUIPMENT TESTER PATIENT NAME: Elba Diaz DATE: January 12, 2025 TIME: 10:18 AM Discussed with: patient Communicated with primary team I spent a total of 25 minutes on the date of the service which included preparing to see the patient, [id number] patient care, completing clinical documentation, obtaining and/or reviewing separately obtained history, performing a medically appropriate examination, counseling and educating the patient/family/caregive r, communicating results to the patient/family/caregive r, and care coordination. Normal [facility] CONSULT PROG HNO ID: [id number] Author: SHELLY POLK RN Service: Wound/Ostomy Author Type: Registered Nurse Type: Consult Progress Note Filed: 01/12/2025 14:49 Note Text: Summary: Wound Care Consult Note WOUND NURSE CONSULT NOTE SERVICE DATE: 01/12/2025 SERVICE TIME: 940 Patient seen at bedside with Carrie ARGUETA, RN, CWN. Patient was confused but pleasant. Patient had bilateral stage I pressure injuries to the heels that are present on admission. Patient had MAD and friction to the sacrum with open bleeding areas which were treated with xeroform and secured by Allevyn foam. Patient left with bed in lowest locked position, with call light and personal belongings within reach. WOUND: Wound 12/15/24 2150 Irritant Contact Moisture Sacrum (Active) Assessments 01/12/2025 9:49 AM Wound Image Shape irregular Wound Length (cm) 3 cm Wound Width (cm) 5 cm Wound Surface Area (cm2) 15 cm2 Wound Depth (cm) 0.2 cm Wound Volume (cm3) 3 cm3 Wound Healing % -1400 Drainage Description Serosanguineous Drainage Amount Scant Odor None Treatments Cleansed Dressing Gauze/Xeroform;Foam- Adhesive Dressing Changed New Dressing Status Clean;Dry;Intact Active Orders Date Order Priority Status Authorizing Provider 01/12/25 1437 DRESSING CARE (SPECIFY) ([place]), Irritant Contact Moisture Sacrum Routine Active Nadine Pal, JONELLE.EQUIPMENT TESTER - Reason:: Xeroform to sacrum - Reason:: Wash wound with soap and water or wound cleanser with every dressing change. Apply xeroform to open areas and secure with allevyn foam. Change daily and as needed if soiled or non-adherent. Wound 01/10/25 0213 Pressure Injury Heel Right (Active) Assessments 01/12/2025 9:45 AM Wound Image IF PATIENT HAS A PRESSURE INJURY: WHEN WAS IT ACQUIRED? (Document one time during this admission) Present on Admission during this Encounter Pressure Injury Stage Stage 1 Site Assessment Non-blanchable erythema [place]ow-Wound Assessment Blanchable erythema Shape round Wound Length (cm) 0.5 cm Wound Width (cm) 0.5 cm Wound Surface Area (cm2) 0.25 cm2 Wound Depth (cm) 0 cm Wound Volume (cm3) 0 cm3 Drainage Amount None Odor None Treatments Cleansed Dressing Foam- Adhesive Dressing Status Clean;Dry;Intact No associated orders. Wound 01/10/25 0214 Pressure Injury Heel Left (Active) Assessments 01/12/2025 9:47 AM Wound Image IF PATIENT HAS A PRESSURE INJURY: WHEN WAS IT ACQUIRED? (Document one time during this admission) Present on Admission during this Encounter Pressure Injury Stage Stage 1 Site Assessment Non-blanchable erythema Willow-Wound Assessment [place] Shape linear Wound Length (cm) 2.4 cm Wound Width (cm) 0.4 cm Wound Surface Area (cm2) 0.96 cm2 Wound Depth (cm) 0 cm Wound Volume (cm3) 0 cm3 Drainage Amount None Odor None Treatments Cleansed Dressing Foam- Adhesive Dressing Status Clean;Dry;Intact No associated orders. Wound 01/10/25 Irritant Contact Moisture Breast Left;Lower (Active) Assessments 01/12/2025 9:49 AM Wound Image Site Assessment [place] Willow-Wound Assessment Moist Shape linear Closure None Drainage Amount None Odor None Treatments Cleansed;Open to Air Active Orders Date Order Priority Status Authorizing Provider 01/12/25 1437 miconazole 2 % 1 application topical powder Active Blasiole, Nadine N, DIVORCE LAWYER.EQUIPMENT TESTER Wound 01/10/25 0225 Irritant Contact Moisture Groin (Active) Assessments 01/12/2025 9:49 AM Wound Image Site Assessment [place] Willow-Wound Assessment Moist Shape linear Drainage Amount None Odor None Treatments Cleansed;Open to Air Active Orders Date Order Priority Status Authorizing Provider 01/12/25 1437 miconazole 2 % 1 application topical powder Active Blasiole, Nadine N, DIVORCE LAWYER.EQUIPMENT TESTER Barriers to Healing: Age, Body habitus, Comorbid conditions, Mobility, and Moisture Pressure Injury Prevention: Heel suspension boots, Low air loss surface, Moisture management, Redistribution surface, and Turn schedule Orders Placed This Encounter DRESSING CARE (SPECIFY) ([place]), Irritant Contact Moisture Sacrum Freq: Daily Reason:: Xeroform to sacrum Reason:: Wash wound with soap and water or wound cleanser with every dressing change. Apply xeroform to open areas and secure with allevyn foam. Change daily and as needed if soiled or non-adherent. Counseling Provided: Prevention Dressing/ointments Observations Follow Up: Patient will follow up with wound care at their facility PHOTOGRAPHY: A photo was taken of the patient's wound(s). Photos can be found under the Scanned Documents tab on [facility]. The purpose of the photo(s) is to optimize the patient's medical care and allow a visual aid to their wound evaluation and progress. Thank you for including me in the care of this patient. (more content not included)... Normal [facility] Magnesium SerPl-mCncon 01-12 Magnesium [Mass/Vol] 1.9 mg/dL Normal 1.7-2.3 [facility] Comment on above: Order Comment: Speci men Type: BLOOD SPECIMEN Ordering Facility: [facility] Address: [address] [place] [address] Performed By: #### 3 0471-7 #### [facility] CLIA [id number] [address] [place] [address] OF [facility] THERAPY NTon 01-12-2025 THERAPY NT HNO ID: [id number] Author: YEE TRIPLETT CCC-COMMERCIAL HORTICULTURE INSTRUCTOR Service: Speech/Swallow Author Type: Speech Language Pathologist Type: Therapy (PT/OT/Speech/Resp) Filed: 01/12/2025 08:48 Note Text: Speech Therapy Clinical Swallow Evaluation SERVICE DATE: 01/12/2025 SERVICE TIME: 814 to 829 ROOM: [id number] IMPRESSION Swallow Deficits Identified / Suspected: Oropharyngeal dysphagia Speech Rehab Potential: Fair RECOMMENDATIONS Diet Recommendations Pureed IDDSI Level 4 Mildly Thick Liquids IDDSI Level 2 ([place] Thick) Medications crushed in puree (pudding/applesauce) Swallow Strategy Recommendations Alert (patient should be fully alert for P.O. intake) 1:1 Supervision Feed / Eat at a slow rate Sit upright 90 degrees for all PO Small Bite/Sip Nursing Recommendations Reinforce use of swallowing strategies Response to Therapy Interventions: Fatigue Rehabilitation Precautions: Modified Diet, Aspiration Precautions, Dysphagia DISCHARGE RECOMMENDATIONS Recommended Discharge Disposition: Subacute/SNF Justification for Recommended Discharge Disposition: Continued skilled COMMERCIAL HORTICULTURE INSTRUCTOR care recommended after hospital discharge for:, dysphagia requiring frequent assessment and diet modification CURRENT HOSPITAL COURSE Admitted from [facility], 3-23: MRI Brain- No acute intracranial process. Chronic changes and remote infarcts. Reason for Speech Therapy Consult: swallowing evaluation Relevant Past Medical History: CVA, Depression, Seizure Disorder HOME ENVIRONMENT / PRIOR FUNCTIONAL LEVEL Prior Functional Level: Required Assistance Patient Lives With: Facility Care Assistance Required With: Finances, Swallowing Precautions, Laundry, Meals, Medication Management, Safety, Self Care, Shopping, Transportation Assistance Available: 24 Hour Prior Swallowing Function/Diet Textures: Minced and Moist IDDSI Level 5, Mildly Thick Liquids IDDSI Level 2 ([place] Thick), Medications crushed in puree (pudding/applesauce) SUBJECTIVE Drowsy but tries to participate, agrees to testing THERAPY DIAGNOSIS Dysphagia, unspecified TREATMENT INTERVENTIONS Clinical Swallow Evaluation (86402) Skilled Treatment Time (minutes): 15 $ Clinical Swallow Evaluation (78093) Billed Units: 1 unit TRAINING AND EDUCATION PROVIDED IN Dysphagia Management, Dietary Consistencies, Swallowing Strategies THERAPEUTIC SKILLS USED Education on role of discipline / importance of activity, Verbal cuing OBJECTIVE Current Status Oral Hygiene: Clear, dry oral cavity, Oral Health Assessment Tool (OHAT) Dentition: Edentulous, Miscellaneous Missing Teeth, Poor Repair Current Feeding Method: Oral Current Diet Textures: Minced and Moist IDDSI Level 5, Mildly Thick Liquids IDDSI Level 2 ([place] Thick) Current Level Of Communication: Verbal Current Management Of Secretions: Able to expectorate adequately Oral Motor Exam: Within Functional Limits Except Labial Assessment: Generalized weakness Lingual Assessment: Generalized weakness Palatal Elevation: Within Functional Limits ORAL HEALTH ASSESSMENT TOOL Lips: 1 Tongue: 1 Gums and Tissues: 1 Saliva: 1 Natural Teeth: 2 Dentures: N/A Oral Cleanliness: 1 Dental Pain: 0 OHAT Total Score: 7 SWALLOW ASSESSMENT Position Of Patient During Assessment: Upright In Bed Feeding Method: COMMERCIAL HORTICULTURE INSTRUCTOR Fed Patient Consistencies Presented: Mildly Thick Liquids IDDSI Level 2 ([place] Thick), Thin Liquids IDDSI Level 0, Pureed Solids IDDSI Level 4, Minced and Moist Solids IDDSI Level 5 Thin Liquids Oral Phase: Suspected Lingual Pumping, Impaired A-P Transfer, Bolus Holding Thin Liquids Pharyngeal Phase: Suspect Delayed Swallow, Suspect Reduced Range of Hyoid/Laryngeal Elevation, Cough- Immediate Mildly Thick Liquids Oral Phase: Impaired A-P Transfer, Bolus Holding Mildly Thick Liquids Pharyngeal Phase: Suspect Delayed Swallow, Suspect Reduced Range of Hyoid/Laryngeal Elevation Pureed Solids Oral Phase: Impaired A-P Transfer, Bolus Holding Pureed Solids Pharyngeal Phase: Suspect Delayed Swallow, Suspect Reduced Range of Hyoid/Laryngeal Elevation Minced and Moist Solids Oral Phase: Impaired Mastication, Bolus Holding, Impaired A-P Transfer Minced and Moist Solids Pharyngeal Phase: Suspect Delayed Swallow, Suspect Reduced Range of Hyoid/Laryngeal Elevation Response to Consistencies Presented: needed cues to chew Compensatory Strategies Utilized During Assessment: Alert (patient should be fully alert for P.O. intake), Extended time between presentations, Feed / Eat at a slow rate, Sit upright 90 degrees for all PO, Small Bite/Sip, Voice checks Suspected Esophageal Deficits: none Previous Swallow Study: (patient reports ch[facility] on thins at jail) Patient coughing and choking on thins Patient reports coughing on thins at [facility] and now needing nectars Patient did not cough with nectars or puree Patient with slow chewing with minced and moist, needed cues to chew, holding (more content not included)... Normal [facility] ALLIED HEALTHon 01-11-2025 ALLIED HEALTH HNO ID: [id number] Author: KRISTIAN CHESTER RT(Rk) Service: ? Author Type: Technologist Type: Allied Health Filed: 01/11/2025 16:20 Note Text: Radiology Service Progress Note PATIENT NAME: Elba Diaz DATE OF SERVICE: January 11, 2025 TIME: 4:12 PM PATIENT IDENTITY VERIFICATION COMPLETED USING TWO (2) IDENTIFIERS: Name and Date of confirmed by patient verbally and Name and Date of confirmed by identification band. FALL SCREENING: Has the patient had 2 falls in the last year or 1 fall with injury or currently using an Ambulatory Assistive Device (Walker, Cane, Wheelchair, Crutches, etc.)? Inpatient: Screened on floor PATIENT GENDER DATA: Assigned female at . status: : No status: NO. PATIENT RELEVANT IMPLANT DATA REVIEWED: Yes PATIENT PRESENTS WITH AN IMPLANTABLE OR ATTACHED FINISHED YARN EXAMINER: No RADIOLOGY DEPARTMENT: MR; Exam(s) Completed: Head: Routine Brain PERIPHERAL IV DATA: Inpatient: see LDA documentation SIGNED BY: RT Bobby(Rk) January 11, 2025 4:12 PM [facility] Basic metabolic 2000 panelon 01-11-2025 Anion gap [Moles/Vol] 13 mmol/L Normal 8-15 [facility] Comment on above: Order Comment: Speci men Type: BLOOD SPECIMEN Ordering Facility: [facility] Address: [address] [place] [address] Performed By: #### 3 0471-7 #### [facility] CLIA [id number] [address] [place] [address] [place] Calcium [Mass/Vol] 8.9 mg/dL Normal 8.5-10.2 [facility] Comment on above: Order Comment: Speci men Type: BLOOD SPECIMEN Ordering Facility: [facility] Address: [address] [place] [address] Performed By: #### 3 0471-7 #### [facility] CLIA [id number] [address] [place] [address] [place] Chloride [Moles/Vol] 100 mmol/L Normal 98-107 [facility] Comment on above: Order Comment: Speci men Type: BLOOD SPECIMEN Ordering Facility: [facility] Address: [address] [place] [address] Performed By: #### 3 0471-7 #### [facility] CLIA [id number] [address] [place] [address] [place] CO2 [Moles/Vol] 18 mmol/L Low 22-30 [facility] Comment on above: Order Comment: Speci men Type: BLOOD SPECIMEN Ordering Facility: [facility] Address: [address] [place] [address] Performed By: #### 3 0471-7 #### [facility] CLIA [id number] [address] [place] [address] [place] Creatinine [Mass/Vol] 0.45 mg/dL Low 0.58-0.96 [facility] Comment on above: Order Comment: Speci men Type: BLOOD SPECIMEN Ordering Facility: [facility] Address: [address] [place] [address] Performed By: #### 3 0471-7 #### [facility] CLIA [id number] [address] [place] [address] [place] Creatinine and Glomerular filtration rate.predicted panel (S/P/Bld) 102 mL/min/1.73m??? Normal >=60 [facility] Comment on above: Order Comment: Vicky montilla Type: BLOOD SPECIMEN Ordering Facility: [facility] Address: [address] [place] [address] Result Comment: Cecy mated Glomerular Filtration Rate (eGFR) is calculated using the 2020 CKD-EPI creatinine equation. This equation utilizes serum creatinine, sex, and age as parameters. The creatinine assay has traceable calibration to isotope dilution-mass spectrometry. Refer to KDIGO guidelines for clinical interpretation. In patients with unstable renal function, e.g. those with acute kidney injury, the eGFR may not accurately reflect actual GFR. Performed By: #### 3 0471-7 #### [facility] CLIA [id number] [address] [place] [address] [place] Glucose [Mass/Vol] 91 mg/dL Normal 74-99 [facility] Comment on above: Order Comment: Vicky montilla Type: BLOOD SPECIMEN Ordering Facility: [facility] Address: [address] [place] [address] Result Comment: The [place] Diabetes Association (ADA) provides guidance for cutoff values for fasting glucose and random glucose. The ADA defines fasting as no caloric intake for at least 8 hours. Fasting plasma glucose results between 100 to 125 mg/dL indicate increased risk for diabetes (prediabetes). Fasting plasma glucose results greater than or equal to 126 mg/dL meet the criteria for diagnosis of diabetes. In the absence of unequivocal hyperglycemia, results should be confirmed by repeat testing. In a patient with classic symptoms of hyperglycemia or hyperglycemic crisis, random plasma glucose results greater than or equal to 200 mg/dL meet the criteria for diagnosis of diabetes. Reference: Standards of Medical Care in Diabetes 2016, [place] Diabetes Association. Diabetes Care. 2016.39(Suppl 1). Performed By: #### 3 0471-7 #### [facility] CLIA [id number] [address] [place] [address] [place] Potassium [Moles/Vol] 4.3 mmol/L Normal 3.7-5.1 [facility] Comment on above: Order Comment: Speci men Type: BLOOD SPECIMEN Ordering Facility: [facility] Address: [address] [place] [address] Performed By: #### 3 0471-7 #### [facility] CLIA [id number] [address] [place] [address] [place] Sodium [Moles/Vol] 131 mmol/L Low 136-144 [facility] Comment on above: Order Comment: Speci men Type: BLOOD SPECIMEN Ordering Facility: [facility] Address: [address] [place] [address] Performed By: #### 3 0471-7 #### [facility] CLIA [id number] [address] [place] [address] [place] Urea nitrogen [Mass/Vol] 15 mg/dL Normal 7-21 [facility] Comment on above: Order Comment: Speci men Type: BLOOD SPECIMEN Ordering Facility: [facility] Address: [address] [place] [address] Performed By: #### 3 0471-7 #### [facility] CLIA [id number] [address] [place] [address] [place] CBC panel Auto (Bld)on 01-11 Erythrocyte distribution width (RBC) [Ratio] 13.2 % Normal 11.5-15.0 [facility] Comment on above: Order Comment: Speci men Type: BLOOD SPECIMEN Ordering Facility: [facility] Address: [address] [place] [address] Performed By: #### 2 4321-2, 62144-1, 3016-3 #### [facility] CLIA [id number] [address] [place] [address] [place] Hematocrit (Bld) [Volume fraction] 36.6 % Normal 36.0-46.0 [facility] Comment on above: Order Comment: Speci men Type: BLOOD SPECIMEN Ordering Facility: [facility] Address: [address] [place] [address] Performed By: #### 2 4321-2, , 3 #### [facility] CLIA [id number] [address] STATES OF [facility] Hemoglobin (Bld) [Mass/Vol] 12.0 g/dL Normal 11.5-15.5 [facility] Comment on above: Order Comment: Speci men Type: BLOOD SPECIMEN Ordering Facility: [facility] Address: [address] [place] [address] Performed By: #### 2 4321-2, , 3 #### [facility] CLIA [id number] [address] STATES OF [facility] MCH (RBC) [Entitic mass] 32.6 pg Normal 26.0-34.0 [facility] Comment on above: Order Comment: Speci men Type: BLOOD SPECIMEN Ordering Facility: [facility] Address: [address] [place] [address] Performed By: #### 2 432-2, , 3 #### [facility] CLIA [id number] [address] [place] MCHC (RBC) [Mass/Vol] 32.8 g/dL Normal 30.5-36.0 [facility] Comment on above: Order Comment: Speci men Type: BLOOD SPECIMEN Ordering Facility: [facility] Address: [address] [place] [address] Performed By: #### 2 432-2, , 3 #### [facility] CLIA [id number] [address] [place] MCV (RBC) [Entitic vol] 99.5 fL Normal 80.0-100.0 [facility] Comment on above: Order Comment: Speci men Type: BLOOD SPECIMEN Ordering Facility: [facility] Address: [address] [place] [address] Performed By: #### 2 4321-2, , 3 #### [facility] CLIA [id number] [address] [place] Nucleated RBC (Bld) [#/Vol] 0.02 10*3/uL High <0.01 [facility] Comment on above: Order Comment: Speci men Type: BLOOD SPECIMEN Ordering Facility: [facility] Address: [address] [place] [address] Performed By: #### 2 4321-2, , 3 #### [facility] CLIA [id number] [address] [place] Platelet mean volume (Bld) [Entitic vol] 8.5 fL Low 9.0-12.7 [facility] Comment on above: Order Comment: Speci men Type: BLOOD SPECIMEN Ordering Facility: [facility] Address: [address] [place] [address] Performed By: #### 2 1-2, , 3 #### [facility] CLIA [id number] [address] [place] Platelets (Bld) [#/Vol] 227 10*3/uL Normal 150-400 [facility] Comment on above: Order Comment: Speci men Type: BLOOD SPECIMEN Ordering Facility: [facility] Address: [address] [place] [address] Performed By: #### 2 4321-2, , 3 #### [facility] CLIA [id number] [address] [place] [address] [place] RBC (Bld) [#/Vol] 3.68 10*6/uL Low 3.90-5.20 [facility] Comment on above: Order Comment: Speci men Type: BLOOD SPECIMEN Ordering Facility: [facility] Address: [address] [place] [address] Performed By: #### 2 4321-2, 27241-2, 3015-12 #### [facility] CLIA [id number] [address] [place] [address] [facility] [place] WBC (Bld) [#/Vol] 8.76 10*3/uL Normal 3.70-11.00 [facility] Comment on above: Order Comment: Speci men Type: BLOOD SPECIMEN Ordering Facility: [facility] Address: [facility] [place] [address] Performed By: #### 2 4321-2, , 3015-12 #### [facility] CLIA [id number] [address] [place] [address] [facility] CONSULTon 01-11-2025 CONSULT HNO ID: [id number] Author: JAYDON SIMEON MD Service: Neurology General Author Type: Physician Type: Consults Filed: 01/11/2025 15:18 Note Text: NEUROLOGY CONSULT SERVICE INITIAL CONSULT NOTE REASON FOR CONSULT: AMS HPI: Elba Diaz is a 74 year old female with a hx of Recently admitted 12/14 for Dehydration and UTI recently - was gradually improving since then. No R neglect at that time, but does note it now along with confusion. Confusion has been intermittent and fluctuating.Was concerned for TIA which is what brought him in. Was worsening over the past week from baseline and at peak worsening 2 days ago. Baseline L plegia though was noting R weakness as well. Resp panel and UTI neg this time Recently discontinued depakote and transitioned to keppra. Had been on keppra in the past - had confusion then too. Was started back within the past week. MEDS: Current Facility-Administered Medications Medication Dose Route Frequency Provider Last Rate Last Admin atorvastatin 80 mg tab(s) (LIPITOR) 80 mg ORAL DAILY Elia Carreno II, MD 80 mg at 01/11/25 0915 calcium-cholecalciferol (D3) 2 tablet tab(s) (OSCAL+D 250) 2 tablet ORAL BID Elia Carreno II, MD 2 tablet at 01/11/25 0914 clopidogrel 75 mg tab(s) (PLAVIX) 75 mg ORAL DAILY Elia Carreno II, MD 75 mg at 01/11/25 0914 DULoxetine 30 mg cap(s) (CYMBALTA) 30 mg ORAL DAILY Elia Carreno II, MD 30 mg at 01/11/25 0914 ferrous sulfate 325 mg tab(s) 325 mg ORAL q 48 H Elia Carreno II, MD 325 mg at 01/10/25 0951 potassium chloride ER 20 mEq tab(s) (KLOR-CON) 20 mEq ORAL DAILY Elia Carreno II, MD 20 mEq at 01/11/25 0914 pregabalin 150 mg cap(s) (LYRICA) 150 mg ORAL TID Elia Carreno II, MD 150 mg at 01/11/25 1231 rOPINIRole 1 mg tab(s) (REQUIP) 1 mg ORAL AT BEDTIME lEia Carreno II, MD 1 mg at 01/10/25 2116 NaCl 0.9% iv flush bag 20 mL INTRAVENOUS PRN Elia Carreno II, MD levothyroxine (SYNTHROID) tab(s) 175 mcg 175 mcg ORAL DAILY (6 AM) Elia Carreno II, MD 175 mcg at 01/11/25 0540 levETIRAcetam 500 mg tab(s) (KEPPRA) 500 mg ORAL BID Nilton Rodriguez DO 500 mg at 01/11/25 0914 sodium chloride 0.9 % (flush) 2-10 mL (BD POSIFLUSH) 2-10 mL INTRAVENOUS DIRECTED PRN Nilton Rodriguez DO And perflutren lipid microspheres 1.1 mg/mL 1.3 mL injection (DEFINITY) 1.3 mL INTRAVENOUS DIRECTED PRN Nilton Rodriguez DO acetaminophen 650 mg tab(s) (TYLENOL) 650 mg ORAL q 6 H PRN Nilton Rodriguez DO 650 mg at 01/11/25 0914 MEDICAL HISTORY 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/08/2021 Hypothyroid tsh> 150 off med Lung nodule Mild depression Polyneuropathy 07/2012 of legs by emg/nct Stroke (HCC) 09/2019 right MCA SURGICAL HISTORY PAST SURGICAL HISTORY Procedure Laterality Date TOTAL ABDOMINAL HYSTERECT W/WO RMVL TUBE OVARY BSO SOCIAL HISTORY Social History Tobacco Use Smoking status: Former Smokeless tobacco: Never Tobacco comments: quit 20 years ago Vaping Use Vaping status: Never Used Substance Use Topics Alcohol use: Yes Comment: rarely Drug use: Never FAMILY HISTORY FAMILY HISTORY Problem Relation Age of Onset Lung Cancer Mother Lung Cancer Father ALLERGIES ALLERGIES Allergen Reactions Codeine Other: See Comments nausea REVIEW OF SYSTEMS: Negative except for as stated above. Objective: BP 93/62 Pulse 102 Temp 36.6 ?C (97.9 ?F) (Oral) Resp 16 Ht 157.5 cm (5' 2) Wt 77.2 kg (170 lb 3.1 oz) LMP (LMP Unknown) SpO2 97% BMI 31.13 kg/m? NEUROLOGICAL EXAM: Mental Status: Awake, alert, oriented to person, place, and time. Speech fluent, no dysarthria. Follows commands appropriately. Cranial Nerves: PERRL, extraocular movements intact without nystagmus. Visual gaytan full. Facial sensation intact. L facial weakness. Tongue midline. Motor: Normal bulk and tone. R full strength, L plegia Sensation: Intact to light touch Coordination: [id number] on R intact DATA: LABS: Reviewed in [facility] WBC (k/uL) Date Value 01/11/2025 8.76 06/08/2020 7.48 RBC (m/uL) Date Value 01/11/2025 3.68 06/08/2020 3.45 Platelet Count (k/uL) Date Value 01/11/2025 227 06/08/2020 239 BUN (mg/dL) Date Value 01/11/2025 15 06/08/2020 17 Creatinine (mg/dL) Date Value 01/11/2025 0.45 06/08/2020 0.99 Creatinine (POCT) (mg/dL) Date Value 02/01/2021 0.85 Glucose (mg/dL) Date Value 01/11/2025 91 06/08/2020 76 Potassium (mmol/L) Date Value 01/11/2025 4.3 06/08/2020 3.9 Sodium (mmol/L) Date Value 01/11/2025 131 06/08/2020 146 Chloride (mmol/L) Date Value 01/11/2025 100 06/08/2020 105 CO2 (mmol/L) Date Value 01/11/2025 18 06/08/2020 27 Creatinine (mg/dL) Date Value 01/11/2025 0.45 06/08/2020 0.99 Creatinin (more content not included)... Normal [facility] MRI BRAIN WO IVCONon 025 MRI BRAIN WO IVCON * * *Final Report* * * DATE OF EXAM: Jan 11 2025 4:24PM AMBER 0294 - MRI BRAIN WO IVCON / PROCEDURE REASON: Transient ischemic attack (TIA) * * * * Physician Interpretation * * * * EXAMINATION: MRI BRAIN WO IVCON CLINICAL HISTORY: TIA. TECHNIQUE: Routine noncontrast MRI protocol including diffusion images. MQ: [id number] COMPARISON: CT brain performed 01/09/2025. RESULT: Acute Change: There is no evidence of restricted diffusion to suggest an acute infarct. Hemorrhage: Magnetic susceptibility representing remote blood degradation byproducts at site of remote infarct within the RIGHT MCA territory. Mass Lesion/ Mass Effect: No evidence of an intracranial mass or extra-axial fluid collection. No significant mass effect. Chronic Change: Scattered patchy and confluent areas of increased T2 and FLAIR signal are present in the supratentorial white matter which is nonspecific but likely represents chronic microvascular ischemia. Remote infarct RIGHT MCA territory centered in the RIGHT basal ganglia, insula, temporal lobe, and lateral RIGHT frontal and parietal lobes. Asymmetric diminished volume involving the RIGHT cerebral peduncle with mild T2 and FLAIR hyperintensity reflecting Wallerian degeneration. Parenchyma: There is moderate generalized parenchymal volume loss. The brain parenchyma is otherwise within normal limits of signal intensity and morphology. Ventricles: Ventriculomegaly corresponds to the degree of parenchymal volume loss. Skull Base: Hypothalamic and pituitary region are grossly normal. Craniocervical junction is normal. No significant marrow replacement process. Vasculature: Loss of flow void within the RIGHT cervical and petrous as well as supraclinoid ICA reflecting occlusion or slow flow. Other: The visualized paranasal sinuses and mastoid air cells are clear. The orbits and extracranial soft tissues are unremarkable. IMPRESSION: No acute intracranial process. Chronic changes and remote infarcts. Air And Water Tester: PSCB Transcribe Date/Time: Jan 11 2025 5:04P Dictated by : DELBERT HYATT MD This examination was interpreted and the report reviewed and electronically signed by: DELBERT HYATT MD on Jan 11 2025 5:50PM EST [id number] [facility] [facility] Magn[facility] SerPl-mCncon 01-11 Magnesium [Mass/Vol] 2.3 mg/dL Normal 1.7-2.3 [facility] Comment on above: Order Comment: Speci men Type: BLOOD SPECIMEN Ordering Facility: [facility] Address: [address] [place] [address] Performed By: #### 3 0471-7 #### [facility] CLIA [id number] [address] [place] [address] [place] T4 Free SerPl-mCncon 025 Free T4 [Mass/Vol] 1.1 ng/dL Normal 0.9-1.7 [facility] Comment on above: Order Comment: Speci men Type: BLOOD SPECIMEN Ordering Facility: [facility] Address: [address] [place] [address] Performed By: #### 3 0471-7 #### [facility] CLIA [id number] [address] [place] [address] [place] Basic metabolic 2000 panelon 01-10-2025 Anion gap [Moles/Vol] 9 mmol/L Normal 8-15 [facility] Comment on above: Order Comment: Speci men Type: BLOOD SPECIMEN Ordering Facility: [facility] Address: [address] [place] [address] Performed By: #### 2 4321-2, , 3 #### [facility] CLIA [id number] [address] [place] [address] [place] Calcium [Mass/Vol] 8.2 mg/dL Low 8.5-10.2 [facility] Comment on above: Order Comment: Speci men Type: BLOOD SPECIMEN Ordering Facility: [facility] Address: [address] [place] [address] Performed By: #### 2 4321-2, , 3 #### [facility] CLIA [id number] 1 [place] [address] [place] Chloride [Moles/Vol] 104 mmol/L Normal 98-107 [facility] Comment on above: Order Comment: Speci men Type: BLOOD SPECIMEN Ordering Facility: [facility] Address: [address] [place] [address] Performed By: #### 2 4321-2, , 3015-12 #### [facility] CLIA [id number] [address] STATES OF [facility] CO2 [Moles/Vol] 22 mmol/L Normal 22-30 [facility] Comment on above: Order Comment: Speci men Type: BLOOD SPECIMEN Ordering Facility: [facility] Address: [address] [place] [address] Performed By: #### 2 4321-2, , 3015-12 #### [facility] CLIA [id number] [address] OF [facility] Creatinine [Mass/Vol] 0.32 mg/dL Low 0.58-0.96 [facility] Comment on above: Order Comment: Speci men Type: BLOOD SPECIMEN Ordering Facility: [facility] Address: [address] [place] [address] Performed By: #### 2 4321-2, , 3015-12 #### [facility] CLIA [id number] [address] Creatinine and Glomerular filtration rate.predicted panel (S/P/Bld) 110 mL/min/1.73m??? Normal >=60 [facility] Comment on above: Order Comment: Speci men Type: BLOOD SPECIMEN Ordering Facility: [facility] Address: [address] [place] [address] Result Comment: Cecy mated Glomerular Filtration Rate (eGFR) is calculated using the 2020 CKD-EPI creatinine equation. This equation utilizes serum creatinine, sex, and age as parameters. The creatinine assay has traceable calibration to isotope dilution-mass spectrometry. Refer to KDIGO guidelines for clinical interpretation. In patients with unstable renal function, e.g. those with acute kidney injury, the eGFR may not accurately reflect actual GFR. Performed By: #### 2 4321-2, , 3015-12 #### [facility] CLIA [id number] 1 [place] [address] [place] Glucose [Mass/Vol] 100 mg/dL High 74-99 [facility] Comment on above: Order Comment: Vicky men Type: BLOOD SPECIMEN Ordering Facility: [facility] Address: [address] [place] [address] Result Comment: The [place] Diabetes Association (ADA) provides guidance for cutoff values for fasting glucose and random glucose. The ADA defines fasting as no caloric intake for at least 8 hours. Fasting plasma glucose results between 100 to 125 mg/dL indicate increased risk for diabetes (prediabetes). Fasting plasma glucose results greater than or equal to 126 mg/dL meet the criteria for diagnosis of diabetes. In the absence of unequivocal hyperglycemia, results should be confirmed by repeat testing. In a patient with classic symptoms of hyperglycemia or hyperglycemic crisis, random plasma glucose results greater than or equal to 200 mg/dL meet the criteria for diagnosis of diabetes. Reference: Standards of Medical Care in Diabetes 2016, [place] [employer] Association. Diabetes Care. 2016.39(Suppl 1). Performed By: #### 2 4321-2, , 3015-12 #### [facility] CLIA [id number] 1 [place] [address] [place] Potassium [Moles/Vol] 3.3 mmol/L Low 3.7-5.1 [facility] Comment on above: Order Comment: Speci men Type: BLOOD SPECIMEN Ordering Facility: [facility] Address: [address] [place] [address] Performed By: #### 2 4321-2, , 3 #### [facility] CLIA [id number] 1 [place] [address] [place] Sodium [Moles/Vol] 135 mmol/L Low 136-144 [facility] Comment on above: Order Comment: Vicky men Type: BLOOD SPECIMEN Ordering Facility: [facility] Address: [address] [place], [place] [id number] Performed By: #### 2 4321-2, , 3 #### [facility] CLIA [id number] 1 [place] [address] [place] Urea nitrogen [Mass/Vol] 21 mg/dL Normal 7-21 [facility] Comment on above: Order Comment: Speci men Type: BLOOD SPECIMEN Ordering Facility: [facility] Address: [address] [place] [address] Performed By: #### 2 4321-2, 05617-9, 3016-3 #### [facility] CLIA [id number] [address] [place] CBC panel Auto (Bld)on 01-10 Erythrocyte distribution width (RBC) [Ratio] 12.7 % Normal 11.5-15.0 [facility] Comment on above: Order Comment: Speci men Type: BLOOD SPECIMEN Ordering Facility: [facility] Address: [address] [place] [address] Performed By: #### 3 0471-7 #### [facility] CLIA [id number] [address] [place] [address] [place] Hematocrit (Bld) [Volume fraction] 32.2 % Low 36.0-46.0 [facility] Comment on above: Order Comment: Speci men Type: BLOOD SPECIMEN Ordering Facility: [facility] Address: [address] [place] [address] Performed By: #### 3 0471-7 #### [facility] CLIA [id number] [address] [place] [address] [place] Hemoglobin (Bld) [Mass/Vol] 10.7 g/dL Low 11.5-15.5 [facility] Comment on above: Order Comment: Speci men Type: BLOOD SPECIMEN Ordering Facility: [facility] Address: [address] [place] [address] Performed By: #### 3 0471-7 #### [facility] CLIA [id number] [address] [place] [address] [place] MCH (RBC) [Entitic mass] 32.7 pg Normal 26.0-34.0 [facility] Comment on above: Order Comment: Speci men Type: BLOOD SPECIMEN Ordering Facility: [facility] Address: [address] [place] [address] Performed By: #### 3 0471-7 #### [facility] CLIA [id number] [address] [place] [address] [place] MCHC (RBC) [Mass/Vol] 33.2 g/dL Normal 30.5-36.0 [facility] Comment on above: Order Comment: Speci men Type: BLOOD SPECIMEN Ordering Facility: [facility] Address: [address] [place] [address] Performed By: #### 3 0471-7 #### [facility] CLIA [id number] [address] [place] [address] [place] MCV (RBC) [Entitic vol] 98.5 fL Normal 80.0-100.0 [facility] Comment on above: Order Comment: Speci men Type: BLOOD SPECIMEN Ordering Facility: [facility] Address: [address] [place] [address] Performed By: #### 3 0471-7 #### [facility] CLIA [id number] [address] [place] [address] [place] Nucleated RBC (Bld) [#/Vol] 10*3/uL Normal <0.01 [facility] Comment on above: Order Comment: Speci men Type: BLOOD SPECIMEN Ordering Facility: [facility] Address: [address] [place] [address] Performed By: #### 3 0471-7 #### [facility] CLIA [id number] [address] [place] [address] [place] Platelet mean volume (Bld) [Entitic vol] 8.3 fL Low 9.0-12.7 [facility] Comment on above: Order Comment: Speci men Type: BLOOD SPECIMEN Ordering Facility: [facility] Address: [address] [place] [address] Performed By: #### 3 0471-7 #### [facility] CLIA [id number] [address] [place] [address] [place] Platelets (Bld) [#/Vol] 168 10*3/uL Normal 150-400 [facility] Comment on above: Order Comment: Speci men Type: BLOOD SPECIMEN Ordering Facility: [facility] Address: [address] [place] [address] Performed By: #### 3 0471-7 #### [facility] CLIA [id number] [address] [place] [address] [place] RBC (Bld) [#/Vol] 3.27 10*6/uL Low 3.90-5.20 [facility] Comment on above: Order Comment: Speci men Type: BLOOD SPECIMEN Ordering Facility: [facility] Address: [address] [place] [address] Performed By: #### 3 0471-7 #### [facility] CLIA [id number] [address] [place] [address] [place] WBC (Bld) [#/Vol] 11.16 10*3/uL High 3.70-11.00 [facility] Comment on above: Order Comment: Speci men Type: BLOOD SPECIMEN Ordering Facility: [facility] Address: [address] [place] [address] Performed By: #### 3 0471-7 #### [facility] CLIA [id number] [address] [place] [address] [place] ED NOTEon 01-10-2025 ED NOTE HNO ID: [id number] Author: CHASIDY BOUDREAUX, RN Service: Emergency Medicine Author Type: Registered Nurse Type: ED Notes Filed: 01/10/2025 00:42 Note Text: 7100 receiving nurse Stephanie called for verbal report. Ok'd for pt. Normal [facility] Magnesium SerPl-mCncon 01-10 Magnesium [Mass/Vol] 1.6 mg/dL Low 1.7-2.3 [facility] Comment on above: Order Comment: Speci men Type: BLOOD SPECIMEN Ordering Facility: [facility] Address: [address] [place] [address] Performed By: #### 2 4321-2, , 3 #### [facility] CLIA [id number] 1 [place] [address] [place] TSH SerPl-aCncon 01-10-2025 TSH Qn 0.015 m[IU]/L Low 0.270-4.200 [facility] Comment on above: Order Comment: Speci men Type: BLOOD SPECIMEN Ordering Facility: [facility] Address: [address] [place] [address] Performed By: #### 2 4321-2, , 3015-12 #### [facility] CLIA [id number] [address] [place] Valproate SerPl-mCncon 01-10 Valproate [Mass/Vol] ug/mL Low 50.0-100.0 [facility] Comment on above: Order Comment: Speci men Type: BLOOD SPECIMEN Ordering Facility: [facility] Address: [address] [place] [address] Result Comment: Refe rence ranges and high/low indicator flags are provided as general guidelines only. The treating physician must determine appropriate target levels/dosing based on the specific clinical situation. Performed By: #### 2 4321-2, , 3 #### [facility] CLIA [id number] [address] [place] levETIRAcetam SerPl-mCncon 0 01-10-2025 levETIRAcetam [Mass/Vol] 12.7 ug/mL Normal 12.0-46.0 [facility] Comment on above: Order Comment: Speci men Type: BLOOD SPECIMEN Ordering Facility: [facility] Address: [address] [place] [address] Result Comment: This test is not suitable for patients receiving treatment with the drug brivaracetam (Briviact). The drug causes an interference that may lead to falsely elevated levetiracetam results. Reference ranges and high/low indicator flags are provided as general guidelines only. The treating physician must determine appropriate target levels/dosing based on the specific clinical situation. This test was developed, and its performance characteristics determined by the [facility] Department of Pathology and Laboratory Medicine. It has not been cleared or approved by the FDA. The [facility] Department of Pathology and Laboratory Medicine is regulated under CLIA as qualified to perform high-complexity testing. This test is used for clinical purposes. It should not be regarded as investigational or for research. Performed By: #### 3 0471-7 #### [facility] CLIA [id number] [address] [place] [address] OF [facility] ALLIED HEALTHon 01-09-2025 ALLIED HEALTH HNO ID: [id number] Author: ELMER PEGUERO RT(R) Service: Radiology Author Type: Technologist Type: Allied Health Filed: 01/09/2025 19:55 Note Text: Radiology Service Progress Note PATIENT NAME: Elba Diaz DATE OF SERVICE: January 09, 2025 TIME: 7:55 PM PATIENT IDENTITY VERIFICATION COMPLETED USING TWO (2) IDENTIFIERS: Name and Date of confirmed by patient verbally and Name and Date of confirmed by identification band. FALL SCREENING: Has the patient had 2 falls in the last year or 1 fall with injury or currently using an Ambulatory Assistive Device (Walker, Cane, Wheelchair, Crutches, etc.)? Emergency Room Patient: Screened in ED PATIENT GENDER DATA: Assigned female at . status: : No status: NO. PATIENT RELEVANT IMPLANT DATA REVIEWED: Yes PATIENT PRESENTS WITH AN IMPLANTABLE OR ATTACHED FINISHED YARN EXAMINER: No RADIOLOGY DEPARTMENT: CT; Exam(s) Completed: Brain PERIPHERAL IV DATA: Not applicable SIGNED BY: RT Toña(R) January 09, 2025 7:55 PM Normal [facility] CBC W Auto Differential pane l (Bld)on 01-09-2025 Basophils (Bld) [#/Vol] 0.07 10*3/uL Normal <0.11 [facility] Comment on above: Order Comment: Speci men Type: BLOOD SPECIMEN Ordering Facility: [facility] Address: [address] [place] [address] Performed By: #### 3 0471-7 #### [facility] CLIA [id number] [address] [place] [address] [place] Basophils/100 WBC (Bld) 0.7 % Normal [facility] Comment on above: Order Comment: Speci men Type: BLOOD SPECIMEN Ordering Facility: [facility] Address: [address] [place] [address] Performed By: #### 3 0471-7 #### [facility] CLIA [id number] [address] [place] [address] [place] Differential cell count method Nom (Bld) Auto Normal [facility] Comment on above: Order Comment: Speci men Type: BLOOD SPECIMEN Ordering Facility: [facility] Address: [address] [place] [address] Performed By: #### 3 0471-7 #### [facility] CLIA [id number] [address] [place] [address] [place] Eosinophils (Bld) [#/Vol] 0.09 10*3/uL Normal <0.46 [facility] Comment on above: Order Comment: Speci men Type: BLOOD SPECIMEN Ordering Facility: [facility] Address: [address] [place] [address] Performed By: #### 3 0471-7 #### [facility] CLIA [id number] [address] [place] [address] [place] Eosinophils/100 WBC (Bld) 0.9 % Normal [facility] Comment on above: Order Comment: Speci men Type: BLOOD SPECIMEN Ordering Facility: [facility] Address: [address] [place] [address] Performed By: #### 3 0471-7 #### [facility] CLIA [id number] [address] [place] [address] [place] Erythrocyte distribution width (RBC) [Ratio] 13.0 % Normal 11.5-15.0 [facility] Comment on above: Order Comment: Speci men Type: BLOOD SPECIMEN Ordering Facility: [facility] Address: [address] [place] [address] Performed By: #### 3 0471-7 #### [facility] CLIA [id number] [address] [place] [address] [place] Hematocrit (Bld) [Volume fraction] 36.8 % Normal 36.0-46.0 [facility] Comment on above: Order Comment: Speci men Type: BLOOD SPECIMEN Ordering Facility: [facility] Address: [address] [place] [address] Performed By: #### 3 0471-7 #### [facility] CLIA [id number] [address] [place] [address] [place] Hemoglobin (Bld) [Mass/Vol] 11.9 g/dL Normal 11.5-15.5 [facility] Comment on above: Order Comment: Speci men Type: BLOOD SPECIMEN Ordering Facility: [facility] Address: [address] [place] [address] Performed By: #### 3 0471-7 #### [facility] CLIA [id number] [address] [place] [address] [place] Immature granulocytes (Bld) [#/Vol] 0.08 10*3/uL Normal <0.10 [facility] Comment on above: Order Comment: Speci men Type: BLOOD SPECIMEN Ordering Facility: [facility] Address: [address] [place] [address] Performed By: #### 3 0471-7 #### [facility] CLIA [id number] [address] [place] [address] [place] Immature granulocytes/100 WBC (Bld) 0.8 % Normal [facility] Comment on above: Order Comment: Speci men Type: BLOOD SPECIMEN Ordering Facility: [facility] Address: [address] [place] [address] Performed By: #### 3 0471-7 #### [facility] CLIA [id number] [address] [place] [address] [place] Lymphocytes (Bld) [#/Vol] 1.96 10*3/uL Normal 1.00-4.00 [facility] Comment on above: Order Comment: Speci men Type: BLOOD SPECIMEN Ordering Facility: [facility] Address: [address] [place] [address] Performed By: #### 3 0471-7 #### [facility] CLIA [id number] [address] [place] [address] [place] Lymphocytes/100 WBC (Bld) 18.8 % Normal [facility] Comment on above: Order Comment: Speci men Type: BLOOD SPECIMEN Ordering Facility: [facility] Address: [address] [place] [address] Performed By: #### 3 0471-7 #### [facility] CLIA [id number] [address] [place] [address] [place] MCH (RBC) [Entitic mass] 32.6 pg Normal 26.0-34.0 [facility] Comment on above: Order Comment: Speci men Type: BLOOD SPECIMEN Ordering Facility: [facility] Address: [address] [place] [address] Performed By: #### 3 0471-7 #### [facility] CLIA [id number] [address] [place] [address] [place] MCHC (RBC) [Mass/Vol] 32.3 g/dL Normal 30.5-36.0 [facility] Comment on above: Order Comment: Speci men Type: BLOOD SPECIMEN Ordering Facility: [facility] Address: [address] [place] [address] Performed By: #### 3 0471-7 #### [facility] CLIA [id number] [address] [place] [address] [place] MCV (RBC) [Entitic vol] 100.8 fL High 80.0-100.0 [facility] Comment on above: Order Comment: Speci men Type: BLOOD SPECIMEN Ordering Facility: [facility] Address: [address] [place] [address] Performed By: #### 3 0471-7 #### [facility] CLIA [id number] [address] [place] [address] [place] Monocytes (Bld) [#/Vol] 0.89 10*3/uL High <0.87 [facility] Comment on above: Order Comment: Speci men Type: BLOOD SPECIMEN Ordering Facility: [facility] Address: [address] [place] [address] Performed By: #### 3 0471-7 #### [facility] CLIA [id number] [address] [place] [address] [place] Monocytes/100 WBC (Bld) 8.5 % Normal [facility] Comment on above: Order Comment: Speci men Type: BLOOD SPECIMEN Ordering Facility: [facility] Address: [address] [place] [address] Performed By: #### 3 0471-7 #### [facility] CLIA [id number] [address] [place] [address] [place] Neutrophils (Bld) [#/Vol] 7.35 10*3/uL Normal 1.45-7.50 [facility] Comment on above: Order Comment: Speci men Type: BLOOD SPECIMEN Ordering Facility: [facility] Address: [address] [place] [address] Performed By: #### 3 0471-7 #### [facility] CLIA [id number] [address] [place] [address] [place] Neutrophils/100 WBC (Bld) 70.3 % Normal [facility] Comment on above: Order Comment: Speci men Type: BLOOD SPECIMEN Ordering Facility: [facility] Address: [address] [place] [address] Performed By: #### 3 0471-7 #### [facility] CLIA [id number] [address] [place] [address] [place] Nucleated RBC (Bld) [#/Vol] 10*3/uL Normal <0.01 [facility] Comment on above: Order Comment: Speci men Type: BLOOD SPECIMEN Ordering Facility: [facility] Address: [address] [place] [address] Performed By: #### 3 0471-7 #### [facility] CLIA [id number] [address] [place] [address] [place] Nucleated RBC/100 WBC (Bld) [Ratio] 0.0 /100 WBC Normal [facility] Comment on above: Order Comment: Speci men Type: BLOOD SPECIMEN Ordering Facility: [facility] Address: [address] [place] [address] Performed By: #### 3 0471-7 #### [facility] CLIA [id number] [address] [place] [address] [place] Platelet mean volume (Bld) [Entitic vol] 8.5 fL Low 9.0-12.7 [facility] Comment on above: Order Comment: Speci men Type: BLOOD SPECIMEN Ordering Facility: [facility] Address: [address] [place] [address] Performed By: #### 3 0471-7 #### [facility] CLIA [id number] [address] [place] [address] [place] Platelets (Bld) [#/Vol] 223 10*3/uL Normal 150-400 [facility] Comment on above: Order Comment: Speci men Type: BLOOD SPECIMEN Ordering Facility: [facility] Address: [address] [place] [address] Performed By: #### 3 0471-7 #### [facility] CLIA [id number] [address] [place] [address] [place] RBC (Bld) [#/Vol] 3.65 10*6/uL Low 3.90-5.20 [facility] Comment on above: Order Comment: Speci men Type: BLOOD SPECIMEN Ordering Facility: [facility] Address: [address] [place] [address] Performed By: #### 3 0471-7 #### [facility] CLIA [id number] [address] [place] [address] [place] WBC (Bld) [#/Vol] 10.44 10*3/uL Normal 3.70-11.00 [facility] Comment on above: Order Comment: Speci men Type: BLOOD SPECIMEN Ordering Facility: [facility] Address: [address] [place] [address] Performed By: #### 3 0471-7 #### [facility] CLIA [id number] [address] [place] [address] [place] BRAIN WO IVCONon 01-10-20 CT BRAIN WO IVCON * * *Final Report* * * DATE OF EXAM: Jan 09 2025 7:58PM [facility] 0504 - CT BRAIN WO IVCON / PROCEDURE REASON: Mental status change, unknown cause * * * * Physician Interpretation * * * * EXAMINATION: CT BRAIN WO IVCON CLINICAL HISTORY: Altered level of consciousness TECHNIQUE: Serial axial images without IV contrast were obtained from the vertex to the foramen magnum. MQ: CTBWO_3 CT Radiation dose: Integrated Dose-Length Product (DLP) for this visit = 873 mGy*cm CT Dose Reduction Employed: Iterative recon COMPARISON: 12/14/2024 RESULT: Localizer images: No additional findings. Post-operative change: None. Acute change: No evidence of an acute infarct or other acute parenchymal process. Hemorrhage: No evidence of acute intracranial hemorrhage. ECASS hemorrhagic transformation score: Not Applicable Mass Lesion / Mass Effect: There is no evidence of an intracranial mass or extraaxial fluid collection. No significant mass effect. Chronic change: Patchy foci of low attenuation are present within the supratentorial white matter, a nonspecific finding that most commonly represents moderate small vessel disease. Stable large area of encephalomalacia in the distribution of the right middle cerebral artery consistent with remote infarction. Parenchyma: There is moderate generalized volume loss. The brain parenchyma is otherwise within normal limits for age. Ventricles: Ventricular enlargement concordant with the degree of parenchymal volume loss. Paranasal sinuses and skull base: The visualized paranasal sinuses are grossly clear. The skull base and imaged soft tissues are unremarkable. IMPRESSION: Chronic changes without evidence for acute intracranial abnormality. Air And Water Tester: ALEXANDRO Transcribe Date/Time: Jan 09 2025 7:59P Dictated by : HAMILTON LERMA MD This examination was interpreted and the report reviewed and electronically signed by: HAMILTON LERMA MD on Jan 09 2025 8:01PM EST [id number] Normal [facility] Comprehensive metabolic 2000 panelon 01-09-2025 Albumin [Mass/Vol] 3.1 g/dL Low 3.9-4.9 [facility] Comment on above: Order Comment: Vicky montilla Type: BLOOD SPECIMEN Ordering Facility: [facility] Address: [address] [place] [address] Performed By: #### 2 4321-2, , 3 #### [facility] CLIA [id number] [address] [place] [facility] ALP [Catalytic activity/Vol] 66 U/L Normal 34-123 [facility] Comment on above: Order Comment: Vicky montilla Type: BLOOD SPECIMEN Ordering Facility: [facility] Address: [address] [place] [address] Performed By: #### 2 4321-2, , 3 #### [facility] CLIA [id number] [address] [place] ALT With P-5'-P [Catalytic activity/Vol] 12 U/L Normal 7-38 [facility] Comment on above: Order Comment: Vikrami eladia Type: BLOOD SPECIMEN Ordering Facility: [facility] Address: [address] [place] [address] Performed By: #### 2 4321-2, 35386-7, 6-3 #### [facility] CLIA [id number] [address] [place] [facility] Anion gap [Moles/Vol] 12 mmol/L Normal 8-15 [facility] Comment on above: Order Comment: Speci men Type: BLOOD SPECIMEN Ordering Facility: [facility] Address: [address] [place] [address] Performed By: #### 2 4321-2, , 3015-3 #### [facility] CLIA [id number] [address] [place] AST With P-5'-P [Catalytic activity/Vol] 22 U/L Normal 13-35 [facility] Comment on above: Order Comment: Speci men Type: BLOOD SPECIMEN Ordering Facility: [facility] Address: [address] [place] [address] Performed By: #### 2 4321-2, , 3015-3 #### [facility] CLIA [id number] [address] [place] Bilirubin [Mass/Vol] mg/dL Low 0.2-1.3 [facility] Comment on above: Order Comment: Speci men Type: BLOOD SPECIMEN Ordering Facility: [facility] Address: [address] [place] [address] Performed By: #### 2 4321-2, , 3015-3 #### [facility] CLIA [id number] [address] [place], [place] [address] [place] [address] [place] [facility] Calcium [Mass/Vol] 9.0 mg/dL Normal 8.5-10.2 [facility] Comment on above: Order Comment: Speci men Type: BLOOD SPECIMEN Ordering Facility: [facility] Address: [address] [place] [address] Performed By: #### 2 4321-2, , 6-3 #### [facility] CLIA [id number] [address] [place] Chloride [Moles/Vol] 108 mmol/L High 98-107 [facility] Comment on above: Order Comment: Speci men Type: BLOOD SPECIMEN Ordering Facility: [facility] Address: [address] [place] [address] Performed By: #### 2 4321-2, 95210-6, 6-3 #### [facility] CLIA [id number] [address] [place] CO2 [Moles/Vol] 21 mmol/L Low 22-30 [facility] Comment on above: Order Comment: Speci men Type: BLOOD SPECIMEN Ordering Facility: [facility] Address: [address] [place] [address] Performed By: #### 2 4321-2, , 6-3 #### [facility] CLIA [id number] [address] OF [facility] Creatinine [Mass/Vol] 0.40 mg/dL Low 0.58-0.96 [facility] Comment on above: Order Comment: Speci men Type: BLOOD SPECIMEN Ordering Facility: [facility] Address: [address] [place] [address] Performed By: #### 2 4321-2, , 63 #### [facility] CLIA [id number] [address] Creatinine and Glomerular filtration rate.predicted panel (S/P/Bld) 105 mL/min/1.73m??? Normal >=60 [facility] Comment on above: Order Comment: Speci men Type: BLOOD SPECIMEN Ordering Facility: [facility] Address: [address] [place] [address] Result Comment: Cecy mated Glomerular Filtration Rate (eGFR) is calculated using the 2020 CKD-EPI creatinine equation. This equation utilizes serum creatinine, sex, and age as parameters. The creatinine assay has traceable calibration to isotope dilution-mass spectrometry. Refer to KDIGO guidelines for clinical interpretation. In patients with unstable renal function, e.g. those with acute kidney injury, the eGFR may not accurately reflect actual GFR. Performed By: #### 2 4321-2, 18188-2, 3015-3 #### [facility] CLIA [id number] [address] [place] [address] [place] Glucose [Mass/Vol] 96 mg/dL Normal 74-99 [facility] Comment on above: Order Comment: Vicky montilla Type: BLOOD SPECIMEN Ordering Facility: [facility] Address: [address] [place] [address] Result Comment: The [place] Diabetes Association (ADA) provides guidance for cutoff values for fasting glucose and random glucose. The ADA defines fasting as no caloric intake for at least 8 hours. Fasting plasma glucose results between 100 to 125 mg/dL indicate increased risk for diabetes (prediabetes). Fasting plasma glucose results greater than or equal to 126 mg/dL meet the criteria for diagnosis of diabetes. In the absence of unequivocal hyperglycemia, results should be confirmed by repeat testing. In a patient with classic symptoms of hyperglycemia or hyperglycemic crisis, random plasma glucose results greater than or equal to 200 mg/dL meet the criteria for diagnosis of diabetes. Reference: Standards of Medical Care in Diabetes 2016, [place] [employer] Association. Diabetes Care. 2016.39(Suppl 1). Performed By: #### 2 4321-2, , 3 #### [facility] CLIA [id number] [address] [place] [address] [place] Potassium [Moles/Vol] 4.2 mmol/L Normal 3.7-5.1 [facility] Comment on above: Order Comment: Vicky montilla Type: BLOOD SPECIMEN Ordering Facility: [facility] Address: [address] [place] [address] Performed By: #### 2 4321-2, , 3015-3 #### [facility] CLIA [id number] [address] [place] [address] [place] Protein [Mass/Vol] 5.8 g/dL Low 6.3-8.0 [facility] Comment on above: Order Comment: Vicky montilla Type: BLOOD SPECIMEN Ordering Facility: [facility] Address: [address] [place], [place] [address] Performed By: #### 2 4321-2, 36307-3, 3015-3 #### [facility] CLIA [id number] [address] [place] [address] [place] Sodium [Moles/Vol] 141 mmol/L Normal 136-144 [facility] Comment on above: Order Comment: Speci men Type: BLOOD SPECIMEN Ordering Facility: [facility] Address: [address] [place] [address] Performed By: #### 2 4321-2, 73713-6, 3015-3 #### [facility] CLIA [id number] [address] [place] Urea nitrogen [Mass/Vol] 25 mg/dL High 7-21 [facility] Comment on above: Order Comment: Speci men Type: BLOOD SPECIMEN Ordering Facility: [facility] Address: [address] [place] [address] Performed By: #### 2 4321-2, , 3 #### [facility] CLIA [id number] [address] OF [facility] ED NOTEon 01-09-2025 ED NOTE HNO ID: [id number] Author: CHASIDY BOUDREAUX RN Service: Emergency Medicine Author Type: Registered Nurse Type: ED Notes Filed: 01/09/2025 23:01 Note Text: Jose martínez updated on plan of care AND bed assignment [facility] ED NOTE HNO ID: [id number] Author: CHASIDY BOUDREAUX RN Service: Emergency Medicine Author Type: Registered Nurse Type: ED Notes Filed: 01/09/2025 19:28 Note Text: Ct called - message left. Normal [facility] ED NOTE HNO ID: [id number] Author: JOHN BLANCO RN Service: ? Author Type: Registered Nurse Type: ED Notes Filed: 01/09/2025 16:23 Note Text: MD Chaney notified of automatic BP of 70s/40s and manual of 98/62 [facility] ED NOTE HNO ID: [id number] Author: PAMELA BALLESTEROS, Medic Service: ? Author Type: Project Engineering Manager and Chiropractic Teacher Type: ED Notes Filed: 01/09/2025 12:29 Note Text: Bed: 43-ED Expected date: Expected time: Means of arrival: Comments: Lindsay 74yo AMS 10d Normal [facility] ED PROGRESS NOTE (PROVIDER)o n 01-09-2025 ED PROGRESS NOTE (PROVIDER) HNO ID: [id number] Author: CHRIS KIRKPATRICK MD Service: Emergency Medicine Author Type: Resident Type: ED PROGRESS NOTE (PROVIDER) Filed: 01/10/2025 01:12 Note Text: ED CONTINUATION OF CARE NOTE Code Status: Prior Assumed care from: Dr. Adam Presentation / Findings / Interventions / Plan / Items to Follow Up: 74 year old with PMH CVA and left-sided residual deficits who presents from SNF with 2-day history of somnolence, decreased activity, and concern for right-sided weakness. MAPs were labile prior to sign-out. Rapid viral panel and UA were unremarkable. CTH showed no acute abnormalities. The patient will be admitted to the regular nursing floor for evaluation of failure to thrive and recent AMS. Differential diagnosis include dehydration, malnutrition, with less likely diagnoses including TIA and seizures. The patient was signed out to Dr. Dunn. Please refer to his note for further management and disposition. ED Course as of 01/09/252013 Others' Documentation SunJan 09, 20252006 Impression IMPRESSION: Chronic changes without evidence for acute intracranial abnormality. [TR] ED Course User Index [TR] Robb Torres MD Clinical Impressions as of 01/09/252013 Altered mental status, unspecified altered mental status type Weakness Failure to thrive in adult Results for orders placed or performed during the hospital encounter of 01/09/25 EKG Impression ACCELERATED JUNCTIONAL RHYTHM NONSPECIFIC ST AND T WAVE ABNORMALITY ABNORMAL ECG WHEN COMPARED WITH ECG OF 09-Jan-2025 14:39, JUNCTIONAL RHYTHM HAS REPLACED SINUS RHYTHM Confirmed by PINO DONALDSON MD ([id number]) on 01/09/2025 4:36:11 PM EKG Impression NORMAL SINUS RHYTHM LOW VOLTAGE QRS BORDERLINE ECG WHEN COMPARED WITH ECG OF 14-Dec-2024 13:46, NO SIGNIFICANT CHANGE WAS FOUND Confirmed by PINO DONALDSON MD ([id number]) on 01/09/2025 2:57:29 PM Medical Decision Making SIGNATURE: Chris Kirkpatrick MD PATIENT NAME: Elba Diaz DATE: January 09, 2025 TIME: 5:32 PM PAGER/CONTACT #: - Normal [facility] ED PROV NOTEon 01-09-2025 ED PROV NOTE HNO ID: [id number] Author: GUTIERREZ SCHULTZ MD Service: Emergency Medicine Author Type: Physician Type: ED Provider Notes Filed: 03/14/2025 12:05 Note Text: ED Provider Note Patient Name: Elba Diaz : 1950 SERVICE DATE: 01/09/25 History Patient presents with: Altered Level Of Consciousness: Pt arrived via [facility] from [facility] for c/o pt not acting right. Pt is awake and alert x3 with clear speech. Pt has hx CVA with left sided paralysis. Pt has chronic right knee pain. Patient presenting from [facility] in [place], with complaints of altered mental status. 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 She was recently admitted for UTI and altered mental status, discharged [facility] 3 weeks ago. On arrival the patient has no complaints and says she feels like she is in her normal state of health. She does endorse some burning with urination but states that has been ongoing for several weeks. Patient denies headache, shortness of breath, chest pain, nausea, vomiting, abdominal pain, diarrhea. She states the only reason she had to come here was because her son was concerned. I called the patient's son to ask him what his concerns were. He states for the past 48 hours the patient has gone from being conversational, alert and oriented x 4, with baseline strength she is able to use her right leg to lift and move her left leg, she she is now alert and oriented x 2, cannot move her right leg against gravity, has minimal use of her right arm and cannot perform neurological examination, and is very sleepy with difficult attention. 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/08/2021 Hypothyroid tsh> 150 off med Lung nodule Mild depression Polyneuropathy 07/2012 of legs by emg/nct Stroke (HCC) 09/2019 right MCA PAST SURGICAL HISTORY Procedure Laterality Date TOTAL ABDOMINAL HYSTERECT W/WO RMVL TUBE OVARY BSO FAMILY HISTORY Problem Relation Age of Onset Lung Cancer Mother Lung Cancer Father Social History Tobacco Use Smoking status: Former Smokeless tobacco: Never Tobacco comments: quit 20 years ago Vaping Use Vaping status: Never Used Substance and Sexual Activity Alcohol use: Yes Comment: rarely Drug use: Never Sexual activity: Not on file ALLERGIES Allergen Reactions Codeine Other: See Comments nausea Review of Systems Constitutional: Positive for fatigue. Negative for fever. HENT: Negative for sore throat. Respiratory: Negative for shortness of breath and wheezing. Cardiovascular: Negative for chest pain and leg swelling. Gastrointestinal: Negative for abdominal pain, diarrhea, nausea and vomiting. Genitourinary: Positive for dysuria. Neurological: Positive for facial asymmetry and weakness. Negative for dizziness, syncope and numbness. Physical Exam Vitals [01/09/25 1242] BP Pulse Temp Temp src Resp SpO2 Weight Height 127/67 (!) 97 36.4 ?C (97.5 ?F) Oral 16 96 % 76.7 kg (169 lb) 1.626 m (5' 4) Physical Exam Vitals and nursing note reviewed. Constitutional: General: She is not in acute distress. Appearance: She is well-developed. She is ill-appearing. HENT: Head: Normocephalic and atraumatic. Eyes: General: Right eye: No discharge. Left eye: No discharge. Conjunctiva/sclera: Conjunctivae normal. Pupils: Pupils are equal, round, and reactive to light. Comments: Unable to assess extraocular movements as patient was noncompliant with request. Neck: Trachea: No tracheal deviation. Cardiovascular: Rate and Rhythm: Normal rate and regular rhythm. Pulmonary: Effort: Pulmonary effort is normal. No respiratory distress. Breath sounds: Normal breath sounds. No stridor. No wheezing. Abdominal: General: There is no distension. Palpations: Abdomen is soft. Tenderness: There is no abdominal tenderness. Musculoskeletal: General: No deformity. Normal range of motion. Cervical back: Normal range of motion and neck supple. Skin: General: Skin is warm. Capillary Refill: Capillary refill takes less than 2 seconds. Coloration: Skin is not pale. Findings: No erythema or rash. Neurological: Mental Status: She is disoriented. GCS: GCS eye subscore is 4. GCS verbal subscore is 5. GCS motor subscore is 6. Cranial Nerves: Facial asymmetry (At baseline) present. Sensory: No sensory deficit. Motor: No abnormal muscle tone. Coordination: Coordination normal. Comments: Patient was noncompliant with exam. She initially attempted to move her right arm and was able to do so against gravity, however tired quickly and she is compliant. Sensation intact. Patient was unable to move her right leg agai (more content not included)... Normal [facility] EKGon 01-09-2025 Electrocardiogram Ventricular Rate : 8 6 BPM QRS Duration : 54 ms Q-T Interval : 360 ms QTC Calculation(Bazett) : 430 ms Calculated R [place] : -16 degrees Calculated T [place] : 33 degrees ACCELERATED JUNCTIONAL RHYTHM NONSPECIFIC ST AND T WAVE ABNORMALITY ABNORMAL ECG WHEN COMPARED WITH ECG OF 09-Jan-2025 14:39, JUNCTIONAL RHYTHM HAS REPLACED SINUS RHYTHM Confirmed by PINO DONALDSON MD ([id number]) on 01/09/2025 4:36:11 PM NAME : ELBA DIAZ PID : [id number] : 1950 Gender : Female Race : ORD : Procedure Date : Jan 09 2025 16:24:24 Edit Date : Jan 09 2025 16:36:15 Diagnosis: ACCELERATED JUNCTIONAL RHYTHM NONSPECIFIC ST AND T WAVE ABNORMALITY ABNORMAL ECG WHEN COMPARED WITH ECG OF 09-Jan-2025 14:39, JUNCTIONAL RHYTHM HAS REPLACED SINUS RHYTHM Confirmed by PINO DONALDSON MD ([id number]) on 01/09/2025 4:36:11 PM Test Reason : Location : 4 : [facility] Overread By : PINO DONALDSON MD Edited By : PINO DONALDSON MD Referred By : , Acquired by : COLE PATTON [facility] Electrocardiogram Ventricular Rate : 9 0 BPM Atrial Rate : 90 BPM P-R Interval : 120 ms QRS Duration : 64 ms Q-T Interval : 364 ms QTC Calculation(Bazett) : 445 ms Calculated P [place] : 22 degrees Calculated R [place] : -11 degrees Calculated T [place] : 36 degrees NORMAL SINUS RHYTHM LOW VOLTAGE QRS BORDERLINE ECG WHEN COMPARED WITH ECG OF 14-Dec-2024 13:46, NO SIGNIFICANT CHANGE WAS FOUND Confirmed by PINO DONALDSON MD ([id number]) on 01/09/2025 2:57:29 PM NAME : ELBA DIAZ PID : [id number] : 1950 Gender : Female Race : ORD : Procedure Date : Jan 09 2025 14:39:21 Edit Date : Jan 09 2025 14:57:32 Diagnosis: NORMAL SINUS RHYTHM LOW VOLTAGE QRS BORDERLINE ECG WHEN COMPARED WITH ECG OF 14-Dec-2024 13:46, NO SIGNIFICANT CHANGE WAS FOUND Confirmed by PINO DONALDSON MD ([id number]) on 01/09/2025 2:57:29 PM Test Reason : Location : 4 : [facility] Overread By : PINO DONALDSON MD Edited By : PINO DONALDSON MD Referred By : , Acquired by : KEV GUZMAN [facility] HIGH SENSITIVITY TROPONIN To n 01-09-2025 Troponin T.cardiac High sensitivity method [Mass/Vol] 21 ng/L High <12 [facility] Comment on above: Order Comment: Vicky montilla Type: BLOOD SPECIMEN Ordering Facility: [facility] Address: [address] [place] [address] Performed By: #### 3 0471-7 #### [facility] CLIA [id number] [address] [place] [address] [place] Troponin T.cardiac High sensitivity method [Mass/Vol] 21 ng/L High <12 [facility] Comment on above: Order Comment: Vicky montilla Type: BLOOD SPECIMEN Ordering Facility: [facility] Address: [address] [place] [address] Performed By: #### 2 4321-2, 84726-2, 3016-3 #### [facility] CLIA [id number] [address] [place] [address] [place] HISTORY PHYSICALon HISTORY PHYSICAL HNO ID: [id number] Author: ELIA CARRENO II, MD Service: Hospital Medicine Author Type: Physician Type: H&P Filed: 01/10/2025 02:59 Note Text: DEPARTMENT OF HOSPITAL MEDICINE HISTORY AND PHYSICAL EXAM SERVICE DATE: 01/09/2025 SERVICE TIME: 9:44 PM Primary Care Physician: No primary care provider on file. NIGHT AND WEEKEND COVERAGE: From 7am - 7pm, please call Sound attending After 7pm, please call cross cover pager #[phone] ==== ASSESSMENT AND PLAN: 1) AMS - Hx: CVA, seizure disorder Home meds: - aspirin 81 mg PO daily - atorvastatin 80 mg PO daily - clopidogrel 75 mg PO daily - Admit to Inpatient - CBC in am - BMP in am 2) Depression - duloxetine 40 mg PO daily 3) Hypothyroidism - levothyroxine 175 mcg PO daily ==== ==== Chief Complaint: AMS HPI: Elba Diaz is a 74 year old female with history of CVA, depression, hypothyroidism, seizure disorder and endometriosis who presents to the hospital due to reports of AMS. Though the patient is AANDOx4, she seems unable to give details regarding why she is here, and says we need to call her with the results of her testing because she is going home before morning. She denies any particular symptoms except for dysuria and says she previously had a UTI about 3-4 weeks ago. She feels well otherwise. Labs revealed Hgb of 11.9, otherwise normal CBC, Cr of 0.40 (baseline 1.00), otherwise normal BMP, total protein of 5.8 and Alb of 3.1. Trops was 21. CT Brain w/o contrast showed Chronic changes. CXR showed no acute pathology. The ED gave 2.0L NS. ####################### ####################### ####### ####################### ####################### ####### ####################### ####################### ####### OTHER HISTORY################ ###################### ####################### ####################### ####### ####################### ####################### ####### ####################### ####################### ####### ==== ROS: Negative except those noted in HPI above ==== PHYSICAL EXAM GENERAL: Alert, no distress, cooperative SKIN : Warm, dry intact, no open lesions, no rashes HEAD / SINUSES : Normocephalic, atraumatic, oral mucosa moist EYES : PERRLA, EOMI NECK : No jugulovenous distention, Supple, no adenopathy LUNGS : Lungs clear to auscultation, no wheezes, rhonchi, or rales CARDIAC : RRR, Normal S1 and S2; no rubs, murmurs, or gallops ABDOMEN : Abdomen soft, non - tender, BS normal, No masses or organomegaly EXTREMITIES : Extremities normal, no deformities, edema, clubbing or skin discoloration NEURO : Sensation grossly intact, Cranial nerves II - XII intact, moves all 4 extremities, speech was clear and coherent - no chronic pearce ==== All pertinent labs, imaging, medical Hx, Surgical Hx, Family Hx, Social Hx, home medications, and allergies reviewed. See below. ==== Medical History: CVA depression hypothyroidism seizure disorder endometriosis ==== Surgical History: procedure laterality date total abdominal hysterect w/wo rmvl tube ovary ==== Family History: Mother Lung Cancer Father Lung Cancer ==== Social History: Tobacco History: Smoking status: Former Smokeless tobacco: Never Tobacco comments: quit 20 years ago Vaping status: Never Used Vaping History: No history of file Alcohol and Substance Use: Alcohol use: Yes Comment: rarely Drug use: Never ==== HOME MEDICATIONS duloxetine 40 mg PO daily aspirin 81 mg PO daily atorvastatin 80 mg PO daily calcium carbonate 600 mcg PO BID clopidogrel 75 mg PO daily ferrous sulfate 325 mg PO every other day levothyroxine 175 mcg PO daily potassium chloride 20 mEq tablet PO daily pregabalin 150 mg PO TID ropinirole 1 mg PO at bedtime ==== ALLERGIES Codeine Other: See Comments ==== VITALS BP: 129/82 HR: 80 RR: 16 Temp: 97.5 Sat: 96 ==== LABS Na: 141 K: 4.2 Cr: 0.40 (L) bicarb: 21 (L) glucose: 96 A Ca: 9.0 M.8 total protein: 5.8 (L) Alb: 3.1 (L) alk phos: 66 AST: 22 ALT: 12 total bili: <0.2 (L) Trops: 21 (H) Lactate (POCT): 2.0 WBCs: 10.44 Hgb: 11.9 platelets: 223 MCV: 100.8 (H) MCHC: 32.3 RDW: 13.0 Urine glucose: Negative Urine bilirubin: Negative Urine ketones: Negative Urine protein: Neg (more content not included)... Normal [facility] Magnesium SerPl-mCncon 01-09 Magnesium [Mass/Vol] 1.8 mg/dL Normal 1.7-2.3 [facility] Comment on above: Order Comment: Speci men Type: BLOOD SPECIMEN Ordering Facility: [facility] Address: [address], [place] [address] Performed By: #### 2 4321-2, , 3 #### [facility] CLIA [id number] [address] [place] Urinalysis complete panel (U )on 01-09-2025 Bilirubin Ql (U) Negative Normal Negative [facility] Comment on above: Order Comment: Speci men Type: BLOOD SPECIMEN Ordering Facility: [facility] Address: [address] [place] [address] Performed By: #### 2 4321-2, , 3 #### [facility] CLIA [id number] [address] Clarity (Unsp spec) Clear Normal Clear [facility] Comment on above: Order Comment: Speci men Type: BLOOD SPECIMEN Ordering Facility: [facility] Address: [address] [place] [address] Performed By: #### 2 4321-2, , 3 #### [facility] CLIA [id number] [address] [facility] Color (U) Light Yellow Normal yellow [facility] Comment on above: Order Comment: Speci men Type: BLOOD SPECIMEN Ordering Facility: [facility] Address: [address] [place] [address] Performed By: #### 2 4321-2, , 3 #### [facility] CLIA [id number] [address] Epithelial cells LM.HPF (Urine sed) [#/Area] Few Normal [facility] Comment on above: Order Comment: Speci men Type: BLOOD SPECIMEN Ordering Facility: [facility] Address: [facility] [place] [address] Performed By: #### 2 4321-2, , 3015-3 #### [facility] CLIA [id number] [address] Glucose Test strip (U) [Mass/Vol] Negative Normal Trace, Negative [facility] Comment on above: Order Comment: Speci men Type: BLOOD SPECIMEN Ordering Facility: [facility] Address: [address] [place] [address] Performed By: #### 2 4321-2, , 3 #### [facility] CLIA [id number] [address] Hemoglobin Ql (U) Negative Normal Negative, Trace [facility] Comment on above: Order Comment: Speci men Type: BLOOD SPECIMEN Ordering Facility: [facility] Address: [address] [place] [address] Performed By: #### 2 4321-2, , 3015-12 #### [facility] CLIA [id number] [address] Ketones Ql (U) Negative Normal Negative, Trace [facility] Comment on above: Order Comment: Speci men Type: BLOOD SPECIMEN Ordering Facility: [facility] Address: [address] [place] [address] Performed By: #### 2 1-2, , 3015-12 #### [facility] CLIA [id number] [address] Leukocyte esterase Test strip Ql (U) 25 Chong/uL Normal Negative, 25 Chong/uL [facility] Comment on above: Order Comment: Speci men Type: BLOOD SPECIMEN Ordering Facility: [facility] Address: [address] [place] [address] Performed By: #### 2 4321-2, , 3 #### [facility] CLIA [id number] [address] [place] Nitrite Ql (U) Negative Normal Negative [facility] Comment on above: Order Comment: Speci men Type: BLOOD SPECIMEN Ordering Facility: [facility] Address: [address] [place] [address] Performed By: #### 2 4321-2, , 3 #### [facility] CLIA [id number] [address] [place] pH (U) 6.5 [pH] Normal 5.0-8.0 [facility] Comment on above: Order Comment: Speci men Type: BLOOD SPECIMEN Ordering Facility: [facility] Address: [address] [place] [address] Performed By: #### 2 4321-2, , 3 #### [facility] CLIA [id number] [address] [place] Protein (U) [Mass/Vol] Negative Normal Trace , Negative [facility] Comment on above: Order Comment: Speci men Type: BLOOD SPECIMEN Ordering Facility: [facility] Address: [address] [place] [address] Performed By: #### 2 4321-2, , 3 #### [facility] CLIA [id number] [address] [place] RBC LM.HPF (Urine sed) [#/Area] 0-3 /HPF Normal 0-3 /HPF [facility] Comment on above: Order Comment: Speci men Type: BLOOD SPECIMEN Ordering Facility: [facility] Address: [address] [place] [address] Performed By: #### 2 4321-2, , 3 #### [facility] CLIA [id number] [address] [place] Specific gravity (U) [Rel density] 1.027 Normal 1.005-1.030 [facility] Comment on above: Order Comment: Speci men Type: BLOOD SPECIMEN Ordering Facility: [facility] Address: [address] [place] [address] Performed By: #### 2 4321-2, , 3 #### [facility] CLIA [id number] [address] [place] Urobilinogen Ql (U) Normal Normal Normal [facility] Comment on above: Order Comment: Speci men Type: BLOOD SPECIMEN Ordering Facility: [facility] Address: [address] [place], [place] [address] Performed By: #### 2 4321-2, 26584-0, 3 #### [facility] CLIA [id number] [address] [place] WBC LM.HPF (Urine sed) [#/Area] 0-5 /HPF Normal 0-5 /HPF [facility] Comment on above: Order Comment: Speci men Type: BLOOD SPECIMEN Ordering Facility: [facility] Address: [address] [place], [place] [id number] Performed By: #### 2 4321-2, 48721-5, 3015-3 #### [facility] CLIA [id number] [address] [place] XR CHEST 1V FRONTALon 2024 XR CHEST 1V FRONTAL * * *Final Report* * * DATE OF EXAM: Jan 09 2025 2:50PM AKX [id number] - XR CHEST 1V FRONTAL / PROCEDURE REASON: Shortness of breath * * * * Physician Interpretation * * * * EXAMINATION: CHEST RADIOGRAPH (SINGLE VIEW AP OR PA) CLINICAL HISTORY: Shortness of breath MQ: XC1_5 Comparison: 12/14/2024 RESULT: Lines, tubes, and devices: None. Lungs and pleura: No consolidation. No lung mass. No pleural effusion. Stable asymmetric elevation of the left hemidiaphragm. Cardiomediastinal silhouette: Normal cardiomediastinal silhouette. Other: . IMPRESSION: No acute radiographic abnormality. Air And Water Tester: PSCB Transcribe Date/Time: Jan 09 2025 2:51P Dictated by : HAMILTON LERMA MD This examination was interpreted and the report reviewed and electronically signed by: HAMILTON LERMA MD on Jan 09 2025 2:52PM EST [id number] [facility] 36on 01-01-2025 36 Pt is added on the w ait list [facility] 36 Name of caller: Elmer roy Contact phone number: [phone] Relationship to Patient: [facility] Provider: New Patient/Dr. Oswald Practice: Neurology Chief Complaint/Reason for Call: Sari called in requesting a sooner new patient appointment for the patient. Sari states that they tested the patient's Depakote levels yesterday and it was low, the result she said was 36. No sooner new patient slots were available ,patient added to wait list. Please be on the look out for sooner appointment, and contact Sari to schedule if possible. Best time of day caller can be reached: any Patient advised that office/PCP has 24-48 business hours to return their call: N/A Normal [facility] Absolute lymphocyte countOrd ered By: Robb Barnes on 12-31-2024 Lymphocytes Auto (Unsp spec) [#/Vol] 1.49 10*3/uL 0.83-4.51 [facility] Absolute neutrophil countOrd ered By: Robb Barnes on 12-31-2024 Neutrophils (Bld) [#/Vol] 5.3 10*3/uL 2.0-7.7 [facility] Automated lymphocyte count a s percentage of total leukocytesOrdered By: Robb Barnes on 12-31-2024 Lymphocytes/100 WBC Auto (Unsp spec) 19.3 % 19-41 [facility] Basophil percentageOrdered B y: Robb Barnes on 12-31-2024 Basophils/100 WBC (Bld) 0.4 % 0-1 [facility] Eosinophil percentageOrdered By: Robb Barnes on 12-31-2024 Eosinophils/100 WBC (Bld) 1.9 % 0-5 [facility] Erythrocyte distribution wid th (RBC) [Ratio]Ordered By: Robb Barnes on 12-31-2024 Erythrocyte distribution width (RBC) [Entitic vol] 47.8 fL High 35.1-43.9 [facility] Erythrocyte distribution wid th ratioOrdered By: Robb Barnes on 12-31-2024 Erythrocyte distribution width (RBC) [Ratio] 13.1 % 11.6-14.6 [facility] Erythrocyte distribution wid th standard deviationOrdered By: Robb Barnes on 12-31-2024 Erythrocyte distribution width (RBC) [Ratio] 47.8 fl High 35.1-43.9 [facility] Hematocrit Auto (Bld) [Volum e fraction]Ordered By: Robb Barnes on 12-31-2024 Hematocrit (Bld) [Volume fraction] 36.2 % Low 37-47 [facility] Hemoglobin measurementOrdere d By: Robb Barnes on 12-31-2024 Hemoglobin (Bld) [Mass/Vol] 11.7 g/dL Low 12.0-15.0 [facility] Immature granulocytes/100 WB C Auto (Bld)Ordered By: Robb Barnes on 12-31-2024 Immature granulocytes/100 WBC (Bld) 0.400 % 0.0-0.9 [facility] Comment on above: IG% - Immature Granu locytes (promyelocytes, myelocytes and metamyelocytes) > 1% indicates that a LEFT SHIFT is Present. Lymphocytes Auto (Unsp spec) [#/Vol]Ordered By: Robb Barnes on 12-31-2024 Lymphocytes (Bld) [#/Vol] 1.49 10*3/uL 0.83-4.51 [facility] Lymphocytes/100 WBC Auto (Un sp spec)Ordered By: Robb Barnes on 12-31-2024 Lymphocytes/100 WBC (Bld) 19.3 % 19-41 [facility] MCV (mean corpuscular volume ) determinationOrdered By: Robb Barnes on 12-31-2024 MCV (RBC) [Entitic vol] 100.0 fL High 81-99 [facility] Mean corpuscular hemoglobin (MCH) determinationOrdered By: Robb Barnes on 12-31-2024 MCH (RBC) [Entitic mass] 32.3 pg High 27.0-32.0 [facility] Mean corpuscular hemoglobin concentration (MCHC) determinationOrdered By: Robb Barnes on 12-31-2024 MCHC (RBC) [Mass/Vol] 32.3 g/dL 32-36 [facility] Mean platelet volume determi nationOrdered By: Robb Barnes on 12-31-2024 Platelet mean volume (Bld) [Entitic vol] 8.8 fL 6.2-12.0 [facility] Monocyte percentageOrdered B y: Robb Barnes on 12-31-2024 Monocytes/100 WBC (Bld) 8.8 % 0-10 [facility] Neutrophil percentageOrdered By: Robb Barnes on 12-31-2024 Neutrophils/100 WBC (Bld) 69.2 % 47-70 [facility] Nucleated red blood cell per centageOrdered By: Robb Barnes on 12-31-2024 Nucleated RBC/100 WBC (Bld) [Ratio] 0 % 0-5 [facility] Platelet countOrdered By: Ramila Barnes on 12-31-2024 Platelets (Bld) [#/Vol] 152 10*3/uL 150-450 [facility] RBC Auto (Bld) [#/Vol]Ordere d By: Rbob Barnes on 12-31-2024 RBC (Bld) [#/Vol] 3.62 10*6/uL Low 4.2-5.4 [facility] Serum or plasma valproate me asurement (mass/volume)Ordered By: Robb Barnes on 12-31-2024 Valproate [Mass/Vol] 36 ug/mL Low 50-100 [facility] Comment on above: Valproic Acid concen trations >100 ug/mL are potentially toxic. Valproate [Mass/Vol]Ordered By: Robb Barnes on 12-31-2024 Valproic Acid (Depakene) Level 36 ug/mL Low 50-100 [facility] Comment on above: Valproic Acid concen trations >100 ug/mL are potentially toxic. White blood cell (WBC) count Ordered By: Robb Barnes on 12-31-2024 WBC (Bld) [#/Vol] 7.7 10*3/uL 4.4-11.0 [facility] Bilirubin Test strip Ql (U)O rdered By: Robb Barnes on 12-30-2024 Bilirubin Ql (U) Negative Negative [facility] Glucose Ql (U)Ordered By: Ramila Barnes on 12-30-2024 Urine Glucose (UA) Normal mg/dl Normal [facility] Ketones Test strip Ql (U)Ord ered By: Robb Barnes on 12-30-2024 Ketones Ql (U) 15 mg/dl High Negative [facility] Nitrite Test strip Ql (U)Ord ered By: Robb Barnes on 12-30-2024 Nitrite Ql (U) Positive High Negative [facility] Protein Test strip Ql (U)Ord ered By: Robb Barnes on 12-30-2024 Protein Ql (U) 30 mg/dl High Negative [facility] Urine blood detectionOrdered By: Robb Barnes on 12-30-2024 Urine Occult Blood 10 /ul High Negative [facility] Urine clarityOrdered By: Renan Barnes on 12-30-2024 Clarity (U) Clear Clear [facility] Urine color determinationOrd ered By: Robb Barnes on 12-30-2024 Color (U) Yellow Yellow [facility] Urine cultureOrdered By: Renan Barnes on 12-30-2024 Bacteria identified Cx Nom (U) ESBL Escherichia coli Abnormal [facility] Urine glucose detectionOrder ed By: Robb Barnes on 12-30-2024 Glucose Ql (U) Normal mg/dl Normal [facility] Urine leukocyte esterase det ection by dipstickOrdered By: Robb Barnes on 12-30-2024 Leukocyte esterase Test strip Ql (U) 100 /ul High Negative [facility] Urine pHOrdered By: Robb huerta on 12-30-2024 pH (U) 6.0 [pH] 5.0 - 8.0 [facility] Urine specific gravity measu rementOrdered By: Robb Barnes on 12-30-2024 Specific gravity (U) [Rel density] 1.020 1.002-1.030 [facility] Urine urobilinogen measureme ntOrdered By: Robb Barnes on 12-30-2024 Urobilinogen Ql (U) Normal mg/dl Normal [facility] Urobilinogen Ql (U)Ordered B y: Robb Barnes on 12-30-2024 Urine Urobilinogen Normal mg/dl Normal [facility] Absolute lymphocyte countOrd ered By: [facility] on 12-24-2024 Lymphocytes Auto (Unsp spec) [#/Vol] 1.70 10*3/uL 0.83-4.51 [facility] Absolute neutrophil countOrd ered By: [facility] on 12-24-2024 Neutrophils (Bld) [#/Vol] 4.3 10*3/uL 2.0-7.7 [facility] Anion gap in Serum or Plasma Ordered By: [facility] on 12-24-2024 Anion gap [Moles/Vol] 12 mmol/L 5-15 [facility] Automated lymphocyte count a s percentage of total leukocytesOrdered By: [facility] on 12-24-2024 Lymphocytes/100 WBC Auto (Unsp spec) 24.6 % 19-41 [facility] BUN/creatinine ratioOrdered By: [facility] on 12-24-2024 Urea nitrogen/Creatinine [Mass ratio] 61.9 mg/mg High 10-20 [facility] Basophil percentageOrdered B y: [facility] on 12-24-2024 Basophils/100 WBC (Bld) 0.4 % 0-1 [facility] Bilirubin directOrdered By: [facility] on 12-24-2024 Bilirubin.direct [Mass/Vol] mg/dL 0.00-0.30 [facility] Comment on above: Hemolysis present, R esults could be affected. Bilirubin, totalOrdered By: [facility] on 12-24-2024 Bilirubin [Mass/Vol] 0.17 mg/dL 0.00-1.30 [facility] Bilirubin.direct [Mass/Vol]O rdered By: [facility] on 12-24-2024 Direct Bilirubin < 0.08 mg/dL 0.00-0.30 [facility] Comment on above: Hemolysis present, R esults could be affected. Carbon dioxide, total [Moles /volume] in Central venous bloodOrdered By: [facility] on 12-24-2024 CO2 [Moles/Vol] 20.1 mmol/L Low 21.0-32.0 [facility] Chloride assayOrdered By: [facility] on 12-24-2024 Chloride [Moles/Vol] 105 mmol/L 98-108 [facility] Eosinophil percentageOrdered By: [facility] on 12-24-2024 Eosinophils/100 WBC (Bld) 2.9 % 0-5 [facility] Erythrocyte distribution wid th (RBC) [Ratio]Ordered By: [facility] on 12-24-2024 Erythrocyte distribution width (RBC) [Entitic vol] 44.6 fL High 35.1-43.9 [facility] Erythrocyte distribution wid th ratioOrdered By: [facility] on 12-24-2024 Erythrocyte distribution width (RBC) [Ratio] 12.3 % 11.6-14.6 [facility] Erythrocyte distribution wid th standard deviationOrdered By: [facility] on 12-24-2024 Erythrocyte distribution width (RBC) [Ratio] 44.6 fl High 35.1-43.9 [facility] GFR/1.73 sq M.predicted juwan g non-blacks MDRD (S/P/Bld) [Vol rate/Area]Ordered By: [facility] on 12-24-2024 Estimated GFR (MDRD) Non-Af Amer 109 >60 [facility] Comment on above: mL/min/1.73m2 CKD-EP I Creatinine Equation (2020) Glomerular filtration rate ( GFR) estimation/1.73 sq m using serum, plasma, or whole bOrdered By: [facility] on 12-24-2024 GFR/1.73 sq M.predicted among non-blacks MDRD (S/P/Bld) [Vol rate/Area] 109 mL/min/{1.73_m2} >60 [facility] Comment on above: mL/min/1.73m2 CKD-EP I Creatinine Equation (2020) Hematocrit Auto (Bld) [Volum e fraction]Ordered By: [facility] on 12-24-2024 Hematocrit (Bld) [Volume fraction] 36.0 % Low 37-47 [facility] Hemoglobin measurementOrdere d By: [facility] on 12-24-2024 Hemoglobin (Bld) [Mass/Vol] 12.1 g/dL 12.0-15.0 [facility] Immature granulocytes/100 WB C Auto (Bld)Ordered By: [facility] on 12-24-2024 Immature granulocytes/100 WBC (Bld) 0.600 % 0.0-0.9 [facility] Comment on above: IG% - Immature Granu locytes (promyelocytes, myelocytes and metamyelocytes) > 1% indicates that a LEFT SHIFT is Present. Laboratory - Chemistry and C hemistry - challengeOrdered By: [facility] on 12-24-2024 AST [Catalytic activity/Vol] 31 U/L <32 [facility] Comment on above: Hemolysis present, R esults could be affected. Lymphocytes Auto (Unsp spec) [#/Vol]Ordered By: [facility] on 12-24-2024 Lymphocytes (Bld) [#/Vol] 1.70 10*3/uL 0.83-4.51 [facility] Lymphocytes/100 WBC Auto (Un sp spec)Ordered By: [facility] on 12-24-2024 Lymphocytes/100 WBC (Bld) 24.6 % 19-41 [facility] MCV (mean corpuscular volume ) determinationOrdered By: [facility] on 12-24-2024 MCV (RBC) [Entitic vol] 98.6 fL 81-99 [facility] Mean corpuscular hemoglobin (MCH) determinationOrdered By: [facility] on 12-24-2024 MCH (RBC) [Entitic mass] 33.2 pg High 27.0-32.0 [facility] Mean corpuscular hemoglobin concentration (MCHC) determinationOrdered By: [facility] on 12-24-2024 MCHC (RBC) [Mass/Vol] 33.6 g/dL 32-36 [facility] Mean platelet volume determi nationOrdered By: [facility] on 12-24-2024 Platelet mean volume (Bld) [Entitic vol] 8.8 fL 6.2-12.0 [facility] Monocyte percentageOrdered B y: [facility] on 12-24-2024 Monocytes/100 WBC (Bld) 8.7 % 0-10 [facility] Neutrophil percentageOrdered By: [facility] on 12-24-2024 Neutrophils/100 WBC (Bld) 62.8 % 47-70 [facility] Nucleated red blood cell per centageOrdered By: [facility] on 12-24-2024 Nucleated RBC/100 WBC (Bld) [Ratio] 0 % 0-5 [facility] Platelet countOrdered By: Akash [facility] on 12-24-2024 Platelets (Bld) [#/Vol] 172 10*3/uL 150-450 [facility] Potassium (Unsp spec) [Mass/ Vol]Ordered By: [facility] on 12-24-2024 Potassium [Moles/Vol] 4.4 mmol/L 3.3-5.1 [facility] Comment on above: Hemolysis present, R esults could be affected. Potassium measurement (mass/ volume)Ordered By: [facility] on 12-24-2024 Potassium (Unsp spec) [Mass/Vol] 4.4 mmol/L 3.3-5.1 [facility] Comment on above: Hemolysis present, R esults could be affected. RBC Auto (Bld) [#/Vol]Ordere d By: [facility] on 12-24-2024 RBC (Bld) [#/Vol] 3.65 10*6/uL Low 4.2-5.4 [facility] Serum creatinine measurement (mass/volume)Ordered By: [facility] on 12-24-2024 Creatinine [Mass/Vol] 0.33 mg/dL Low 0.70-1.20 [facility] Serum globulin measurementOr dered By: [facility] on 12-24-2024 Globulin (S) [Mass/Vol] 3.1 g/dL 2.2-4.2 [facility] Serum glucose measurement (m ass/volume)Ordered By: [facility] on 12-24-2024 Glucose [Mass/Vol] 72 mg/dL 70-99 [facility] Serum or plasma alanine timmons otransferase (ALT) measurementOrdered By: [facility] on 12-24-2024 ALT [Catalytic activity/Vol] 7 U/L <35 [facility] Serum or plasma albumin claudette urement (mass/volume)Ordered By: [facility] on 12-24-2024 Albumin [Mass/Vol] 2.8 g/dL Low 3.4-4.8 [facility] Serum or plasma alkaline karson sphatase measurementOrdered By: [facility] on 12-24-2024 ALP [Catalytic activity/Vol] 76 U/L 35-104 [facility] Serum or plasma calcium claudette urement (mass/volume)Ordered By: [facility] on 12-24-2024 Calcium [Mass/Vol] 9.0 mg/dL 7.6-11.0 [facility] Serum or plasma urea nitroge n measurement (mass/volume)Ordered By: [facility] on 12-24-2024 Urea nitrogen [Mass/Vol] 21 mg/dL High 4-19 [facility] Sodium [facility]Or[facility] By: [facility] on 12-24-2024 Sodium [Moles/Vol] 136 mmol/L 133-145 [facility] Total proteinOrdered By: [facility] on 12-24-2024 Protein [Mass/Vol] 5.9 g/dL 5.9-8.4 [facility] White blood cell (WBC) count Ordered By: [facility] on 12-24-2024 WBC (Bld) [#/Vol] 6.9 10*3/uL 4.4-11.0 [facility] Bilirubin Test strip Ql (U)O rdered By: Robb Barnes on 12-22-2024 Bilirubin Ql (U) Negative Negative [facility] Glucose Ql (U)Ordered By: Ramila Barnes on 12-22-2024 Urine Glucose (UA) Normal mg/dl Normal [facility] Ketones Test strip Ql (U)Ord ered By: Robb Barnes on 12-22-2024 Ketones Ql (U) 15 mg/dl High Negative [facility] Nitrite Test strip Ql (U)Ord ered By: Robb Barnes on 12-22-2024 Nitrite Ql (U) Negative Negative [facility] Protein Test strip Ql (U)Ord ered By: Robb Barnes on 12-22-2024 Protein Ql (U) 30 mg/dl High Negative [facility] Urine blood detectionOrdered By: Robb Barnes on 12-22-2024 Urine Occult Blood Negative Negative [facility] Urine clarityOrdered By: Renan Barnes on 12-22-2024 Clarity (U) Clear Clear [facility] Urine color determinationOrd ered By: Robb Barnes on 12-22-2024 Color (U) Yellow Yellow [facility] Urine cultureOrdered By: Renan Barnes on 12-22-2024 Bacteria identified Cx Nom (U) GNR lactose vp software Abnormal [facility] Urine glucose detectionOrder ed By: Robb Barnes on 12-22-2024 Glucose Ql (U) Normal mg/dl Normal [facility] Urine leukocyte esterase det ection by dipstickOrdered By: Robb Barnes on 12-22-2024 Leukocyte esterase Test strip Ql (U) Negative Negative [facility] Urine pHOrdered By: Robb huerta on 12-22-2024 pH (U) 6.0 [pH] 5.0 - 8.0 [facility] Urine specific gravity measu rementOrdered By: Robb Barnes on 12-22-2024 Specific gravity (U) [Rel density] 1.020 1.002-1.030 [facility] Urine urobilinogen measureme ntOrdered By: Robb Barnes on 12-22-2024 Urobilinogen Ql (U) Normal mg/dl Normal [facility] Urobilinogen Ql (U)Ordered B y: Robb Barnes on 12-22-2024 Urine Urobilinogen Normal mg/dl Normal [facility] CNDSon 12-18-2024 CNDS HNO ID: [id number] Author: DANILO HELMS MD Service: Hospital Medicine Author Type: Physician Type: Discharge Summary Filed: 12/18/2024 10:50 Note Text: DISCHARGE SUMMARY PATIENT NAME: Elba Diaz Code Status: DNR-CCA Highest Readmission Risk Score: 15 The 30 day readmissions risk score is derived from an internally validated risk model which evaluates patient level characteristics, utilization history, medication orders and lab results up until the day of discharge. Patients with a score of 39 or above are considered highest risk for readmission. Specific patient level drivers will be listed at the bottom of the summary. Admission Information Admission Information ADMIT DATE: 12/14/2024 DISCHARGE DATE: 12/18/2024 MY DOCTORS AND MEDICAL TEAM: My Main Hospital Doctor: Danilo Helms,* Primary Care Provider: No primary care provider on file. My Medical Team Members: Treatment Team: Attending Provider: Danilo Helms MD Primary Service: BANG MILLER MY CONDITION AT DISCHARGE: Stable REASON I WAS IN THE HOSPITAL: Change in mental status SUMMARY OF WHAT HAPPENED WHILE I WAS IN THE HOSPITAL: 74-year-old female with a history of cerebrovascular disease and debilitating stroke leaving the patient essentially bedbound. [facility] Admitted to the hospital on account of change in mental status. Suspected to be secondary to urinary tract infection and possibly so. Found to be dehydrated as well. Treated with antibiotics and IV fluids. Mental status has improved. She is essentially back to baseline. Able to return back to jail. OTHER PROBLEMS/DIAGNOSIS: Principal Problem: AMS (altered mental status) Active Problems: Dermatitis associated with moisture from stool incontinence Irritant contact dermatitis due friction or contact with other specified body fluids Obesity, Class I, BMI 30-34.9 Resolved Problems: * No resolved hospital problems. * OPERATIONS PERFORMED WHILE IN THE HOSPITAL: None IMPORTANT TEST/PROCEDURES: No procedures performed TEST RESULTS NOT AVAILABLE AT THIS TIME: No pending results Discharge Disposition Discharge Disposition: Custodial For Intermediate Care/Assisted Living Additional Provider to Provider Information: No notes on file Exogenous Class 1 Obesity Treatment Team: Attending Provider: Danilo Helms MD Primary Service: BNAG MILLER Transitions of Care Critical Issues: None LABS AND PROCEDURES PENDING AT DISCHARGE: No pending results. FOLLOW-UP APPOINTMENTS ALREADY SCHEDULED WITH A [facility] PROVIDER: No future appointments. ALLERGIES Allergen Reactions Codeine Other: See Comments nausea DISCHARGE MEDICATION: Medication List CONTINUE taking these medications acetaminophen 500 mg tablet Commonly known as: TYLENOL alendronate 70 mg tablet Commonly known as: FOSAMAX ASPIR-81 81 mg EC tablet Generic drug: aspirin, enteric coated atorvastatin 80 mg tablet Commonly known as: LIPITOR TAKE 1 TABLET BY MOUTH EVERY DAY AZO D-MANNOSE 500 mg capsule Generic drug: d-mannose calcium carbonate 600 mg-cholecalciferol 400 units 600 mg-10 mcg (400 unit) Tab clopidogrel 75 mg tablet Commonly known as: PLAVIX Take 1 tablet by mouth once daily. diclofenac 1 % topical gel Commonly known as: VOLTAREN divalproex DR 500 mg EC tablet Commonly known as: DEPAKOTE Take 1 tablet by mouth twice daily. DULoxetine 40 mg Cpdr Commonly known as: CYMBALTA ferrous sulfate 325 mg (65 mg iron) tablet Take 1 tablet by mouth every other day. L-LYSINE ORAL levothyroxine 175 mcg Cap MAGNESIUM OXIDE ORAL MYRBETRIQ 25 mg Tb24 Generic drug: mirabegron potassium chloride 10 mEq tablet Commonly known as: K-TAB pregabalin 150 mg capsule Commonly known as: LYRICA rOPINIRole 0.5 mg tablet Commonly known as: REQUIP VIVELLE-DOT 0.05 mg/24 hr patch Generic drug: estradiol Discharge Physical Exam: VITAL SIGNS: BP 139/85 Pulse 81 Temp 36.7 ?C (98.1 ?F) (Oral) Resp 18 Ht 157.5 cm (5' 2) Wt 80.1 kg (176 lb 8 oz) LMP (LMP Unknown) SpO2 96% BMI 32.28 kg/m? General - AANDOx2, NAD, elderly woman, more awake and alert and interactive. CV - RRR S1 S2, No M/R/G RESP - CTA B/L No wheezes, ronchi, rales ABD - soft, NT, ND +BS EXT - no gross joint deformity, no clubbing, cyanosis, edema NEURO - CN II-XII grossly intact, no focal deficits Additional Information Additional Health Information I Need to Know After I Leave the Hospital No additional instructions. The patient's risk for 30-day readmission is determined using the following contributing factors: Predictive Model Details 13% (Low) Factor Value Calculated 12/18/2024 05:13 -14% Admissions (365d) 1 [facility] READMISSION RISK Model 11% Diagnosis Count 28 10% Hospital Unit [place] 4100 CARD/HF/PD -8% ED visits (365d) 0 -5% RDW (Max) 12.6 -5% Length of Stay (d) (more content not included)... Normal [facility] Basic metabolic 2000 panelon 12-17-2024 Anion gap [Moles/Vol] 11 mmol/L Normal 8-15 [facility] Comment on above: Order Comment: Vicky montilla Type: BLOOD SPECIMEN Ordering Facility: [facility] Address: [address] [place] [address] Performed By: #### 2 4321-2, , 3 #### [facility] CLIA [id number] [address] [place] [address] [place] Calcium [Mass/Vol] 8.6 mg/dL Normal 8.5-10.2 [facility] Comment on above: Order Comment: Vicky montilla Type: BLOOD SPECIMEN Ordering Facility: [facility] Address: [address] [place] [address] Performed By: #### 2 4321-2, , 3 #### [facility] CLIA [id number] [address] [place] [address] [place] Chloride [Moles/Vol] 109 mmol/L High 98-107 [facility] Comment on above: Order Comment: Vicky montilla Type: BLOOD SPECIMEN Ordering Facility: [facility] Address: [address] [id number] Performed By: #### 2 4321-2, , 3015-3 #### [facility] CLIA [id number] [address] [place] [address] [place] CO2 [Moles/Vol] 22 mmol/L Normal 22-30 [facility] Comment on above: Order Comment: Speci men Type: BLOOD SPECIMEN Ordering Facility: [facility] Address: [address] [place] [address] Performed By: #### 2 4321-2, , 3 #### [facility] CLIA [id number] [address] [place] Creatinine [Mass/Vol] 0.42 mg/dL Low 0.58-0.96 [facility] Comment on above: Order Comment: Speci men Type: BLOOD SPECIMEN Ordering Facility: [facility] Address: [address] [place] [address] Performed By: #### 2 4321-2, , 3 #### [facility] CLIA [id number] [address] Creatinine and Glomerular filtration rate.predicted panel (S/P/Bld) 103 mL/min/1.73m??? Normal >=60 [facility] Comment on above: Order Comment: Speci men Type: BLOOD SPECIMEN Ordering Facility: [facility] Address: [address] [place] [address] Result Comment: Cecy mated Glomerular Filtration Rate (eGFR) is calculated using the 2020 CKD-EPI creatinine equation. This equation utilizes serum creatinine, sex, and age as parameters. The creatinine assay has traceable calibration to isotope dilution-mass spectrometry. Refer to KDIGO guidelines for clinical interpretation. In patients with unstable renal function, e.g. those with acute kidney injury, the eGFR may not accurately reflect actual GFR. Performed By: #### 2 4321-2, , 3015-3 #### [facility] CLIA [id number] [address] [place] Glucose [Mass/Vol] 102 mg/dL High 74-99 [facility] Comment on above: Order Comment: Speci men Type: BLOOD SPECIMEN Ordering Facility: [facility] Address: [address] [place] [address] Result Comment: The [place] Diabetes Association (ADA) provides guidance for cutoff values for fasting glucose and random glucose. The ADA defines fasting as no caloric intake for at least 8 hours. Fasting plasma glucose results between 100 to 125 mg/dL indicate increased risk for diabetes (prediabetes). Fasting plasma glucose results greater than or equal to 126 mg/dL meet the criteria for diagnosis of diabetes. In the absence of unequivocal hyperglycemia, results should be confirmed by repeat testing. In a patient with classic symptoms of hyperglycemia or hyperglycemic crisis, random plasma glucose results greater than or equal to 200 mg/dL meet the criteria for diagnosis of diabetes. Reference: Standards of Medical Care in Diabetes 2016, [place] [employer] Association. Diabetes Care. 2016.39(Suppl 1). Performed By: #### 2 4321-2, , 3 #### [employer] [facility] CLIA [id number] [address] [place] [address] [place] Potassium [Moles/Vol] 3.9 mmol/L Normal 3.7-5.1 [facility] Comment on above: Order Comment: Vicky montilla Type: BLOOD SPECIMEN Ordering Facility: [facility] Address: [address] [place] [address] Performed By: #### 2 4321-2, , 3 #### [employer] [facility] CLIA [id number] [address] [place] [address] [place] Sodium [Moles/Vol] 142 mmol/L Normal 136-144 [facility] Comment on above: Order Comment: Speci men Type: BLOOD SPECIMEN Ordering Facility: [facility] Address: [address] [place] [address] Performed By: #### 2 4321-2, , 3 #### [facility] CLIA [id number] [address] [place] [address] [place] Urea nitrogen [Mass/Vol] 4 mg/dL Low 7-21 [facility] Comment on above: Order Comment: Speci men Type: BLOOD SPECIMEN Ordering Facility: [facility] Address: [facility] [place] [address] Performed By: #### 2 4321-2, 17234-0, 3016-3 #### [facility] CLIA [id number] [address] [place] [address] [place] CONSULT PROGon 12-17-2024 CONSULT PROG HNO ID: [id number] Author: TRINITY BOJORQUEZ APRN.EQUIPMENT TESTER Service: Wound/Ostomy Author Type: Nurse Practitioner Type: Consult Progress Note Filed: 12/17/2024 12:37 Note Text: WOUND CARE SERVICE CONSULT DIVORCE LAWYER NOTE SERVICE DATE: 12/17/2024 SERVICE TIME: 1020 REASON FOR CONSULT: Consultation requested by Danilo Helms MD for an opinion regarding wound on coccyx. My final recommendations will be communicated back to the requesting physician by way of shared Medical record or letter to requesting physician via US mail. CHIEF COMPLAINT: wound on backside. Subjective HISTORY OF PRESENT ILLNESS: Ms. Diaz is a 74 year old female who is seen today with Shelly Polk, Wound/pharmacy picking technician, and presented to hospital with complaints of malaise, dysuria, confusion. PMH aneurysm, epilepsy, hypothyroid. PERTINENT REVIEW OF SYSTEMS: GENERAL: denies fever PAIN ASSESSMENT: endorses 3/10 pain to buttocks SKIN: wound to buttocks RESPIRATORY: denies SOB GI/: denies N/V 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/08/2021 Hypothyroid tsh> 150 off med Lung nodule Mild depression Polyneuropathy 07/2012 of legs by emg/nct Stroke ([facility]) 09/2019 right MCA PAST SURGICAL HISTORY Procedure Laterality Date TOTAL ABDOMINAL HYSTERECT W/WO RMVL TUBE OVARY BSO Social History Tobacco Use Smoking status: Former Smokeless tobacco: Never Tobacco comments: quit 20 years ago Vaping Use Vaping status: Never Used Substance Use Topics Alcohol use: Yes Comment: rarely Drug use: Never FAMILY HISTORY Problem Relation Age of Onset Lung Cancer Mother Lung Cancer Father MEDICATIONS: Current Facility-Administered Medications Medication Dose Route Frequency NaCl 0.9% iv flush bag 20 mL INTRAVENOUS PRN NaCl 0.9% iv flush bag 20 mL INTRAVENOUS PRN cefTRIAXone iv piggyback 2 g in dextrose (iso-osmotic) 50 mL (ROCEPHIN) 2 g INTRAVENOUS q 24 H aspirin 81 mg chewable tab(s) 81 mg ORAL DAILY atorvastatin 80 mg tab(s) (LIPITOR) 80 mg ORAL AT BEDTIME divalproex DR 500 mg tab(s) (DEPAKOTE) 500 mg ORAL BID clopidogrel 75 mg tab(s) (PLAVIX) 75 mg ORAL DAILY DULoxetine 40 mg cap(s) (CYMBALTA) 40 mg ORAL DAILY pregabalin 150 mg cap(s) (LYRICA) 150 mg ORAL DAILY rOPINIRole 1 mg tab(s) (REQUIP) 1 mg ORAL AT BEDTIME magnesium oxide 400 mg tab(s) (MAG-OX) 400 mg ORAL DAILY levothyroxine (SYNTHROID) tab(s) 175 mcg 175 mcg ORAL DAILY polyethylene glycol 3350 17 g packet 17 g ORAL DAILY senna-docusate 8.6-50 mg 2 tablet (SENNA-S) 2 tablet ORAL BID acetaminophen 650 mg tab(s) (TYLENOL) 650 mg ORAL q 4 H PRN aluminum-magnesium hydroxide-simethicone 200-200-20 mg/5 mL 30 mL 30 mL ORAL q 6 H PRN benzocaine-menthol 1 Lozenge (CEPACOL) 1 Lozenge MUCOUS MEMBRANE (TOPICAL MOUTH AND THROAT) q 2 H PRN guaiFENesin 600 mg ER tab(s) (MUCINEX) 600 mg ORAL q 12 H PRN lip protectant 1 application stick (BLISTEX) 1 application TOPICAL PRN melatonin 3 mg tab(s) 3 mg ORAL AT BEDTIME PRN ondansetron (PF) 4 mg injection (ZOFRAN) 4 mg INTRAVENOUS q 6 H PRN polyvinyl alcohol-povidone 1.4-0.6 % 1 Drop (REFRESH) 1 Drop BOTH EYES PRN saliva substitute combo no.9 15 mL (BIOTENE mouthwash) 15 mL MUCOUS MEMBRANE (TOPICAL MOUTH AND THROAT) TID PRN sodium chloride 0.65 % 2 Caldwell 2 [place]dwell EACH NOSTRIL PRN prochlorperazine 10 mg injection (COMPAZINE) 10 mg INTRAVENOUS q 6 H PRN miconazole 2 % 1 application topical powder 1 application TOPICAL BID zinc oxide ointment 20% TOPICAL BID ALLERGIES Allergen Reactions Codeine Other: See Comments nausea Objective PHYSICAL EXAM: BP 136/78 Pulse 88 Temp 36.8 ?C (98.2 ?F) (Oral) Resp 18 Ht 157.5 cm (5' 2) Wt 80.1 kg (176 lb 8 oz) LMP (LMP Unknown) SpO2 97% BMI 32.28 kg/m? General appearance: A/O female resting in bed, pleasant and cooperative. Respiratory: even and unlabored. Cardiovascular: pedal pulses palpable bilaterally. Extremities: Heels intact. Integumentary: Moisture and friction noted to bilateral buttocks. DATA No recent data pertaining to wound care. Presenting wound information: Wound 12/15/242149 Irritant Contact Sacrum (Active) Assessments 12/17/2024 10:23 AM Wound Image Site Assessment [place];Red;Purple;Bleedin g;Dry [place]-Wound Assessment Purple;Dry Shape kissing pattern to bilateral buttocks Wound Length (cm) 3 cm Wound Width (cm) 5.5 cm Wound Surface Area (cm2) 16.5 cm2 Wound Depth (cm) 0.1 cm Wound Volume (cm3) 1.65 cm3 Wound Healing % -725 Drainage Description Sanguineous Drainage Amount Scant Odor None Willow-Wound Treatment Zinc Oxide Treatments Cleansed Dressing Foam- Adhesive Dressing Changed Changed Dressing Status Clean;Dry;Intact Active Orders Date Order Priority Status Authorizing Provider 12/17/24 1154 z (more content not included)... Normal [facility] NUTRITIONon 12-17-2024 NUTRITION HNO ID: [id number] Author: EMMANUEL AMIN RD Service: Nutrition Therapy Author Type: Registered Dietitian Type: Nutrition Filed: 12/17/2024 10:57 Note Text: INITIAL ASSESSMENT SERVICE DATE: 12/17/2024 SERVICE TIME: 938 AM Nutrition Assessment: Recommended Malnutrition Diagnosis: No Malnutrition Identified Nutrition Diagnosis: Problem: Increased nutrient needs Related to: Wound healing As evidenced by: Wound(s) Care Plan: Continue current diet Supplements: Ensure Max (daily) Vitamins and Minerals: Multivitamin with minerals, Zinc Monitor and Evaluation: Meet greater than 75% of estimated needs, Monitor fluid/electrolyte balance, Monitor bowel function, Monitor labs, I/Os, vital signs, weight HPI: 74 yo female, length of stay 2 days, presented with confusion - found to have acute delirium, OT/PT noted, awaiting POC. Intake History: Nutrition Intake Prior to Admission: Greater than 75% estimated energy needs greater than or equal to 3 months Current Nutrition Intake: Less than 75% estimated energy needs Current Intake Over time: (2 days - eating breakfast today - tolerating well) Dosing Weight: 49.9 kg (110 lb) Dosing Weight Type: [place] body weight Estimated kilocalorie needs: 0844-4242 Calorie Calculation Method: 25-30 kcals/kg, [place] Body Weight Estimated protein needs (grams): 50-60 Grams protein determined by: 1.0 - 1.2 g/kg, [place] body weight Diet Orders (From admission, onward) Start Ordered 12/15/24126 DIET REGULAR START NOW 12/15/24 0126 Anthropometrics: Height: 157.5 cm (5' 2) Weight: 80.1 kg (176 lb 8 oz) Usual Weight: 70.8 kg (156 lb 1.4 oz) 2021 Usual Weight Obtained From: Chart Review Body mass index is 32.28 kg/m?. Weight change percentage over time: Gain - patient reports gain since admission to [facility] Weight Change: Weight gain Last Wt 12/15/24 : 80.1 kg (176 lb 8 oz) 11/04/21 : 70.8 kg (156 lb) 10/28/21 : 71 kg (156 lb 8.4 oz) 10/22/21 : 72.1 kg (158 lb 15.2 oz) 02/13/21 : 68.5 kg (151 lb 0.2 oz) 02/07/21 : 72.6 kg (160 lb) 02/01/21 : 70.3 kg (155 lb) 10/19/20 : 70.3 kg (155 lb) 08/17/20 : 70.3 kg (155 lb) 08/04/20 : 70.3 kg (155 lb) 07/27/20 : 70.3 kg (155 lb) 07/21/20 : 70.3 kg (155 lb) 07/20/20 : 70.3 kg (155 lb) 06/29/20 : 70.3 kg (155 lb) 06/10/20 : 70.3 kg (155 lb) 06/04/20 : 70.3 kg (155 lb) 05/24/20 : 70.3 kg (155 lb) 05/17/20 : 72.7 kg (160 lb 4.8 oz) 05/14/20 : 76.3 kg (168 lb 4.8 oz) 04/08/20 : 70.3 kg (155 lb) Physical Exam: Subcutaneous fat loss: No Subcutaneous Fat Loss Muscle loss: Muscle Loss Assessed Temporalis: Slight depression (Mild) Clavicle: Well defined muscle (No loss) Acromion: Well defind muscle, rounded curve (No loss) Interosseous (Hand): Muscle bulges, flat/mild bulge between dorsal bones (No Loss) Quadricep: Well rounded muscle, kneecap not prominent (No loss) Gastrocnemius: Well developed bulb of muscle (No loss) Potential micronutrient deficiency: Nails, Skin Edema/Ascites: Upper extremities, Lower extremities Upper Extremity: (LUE 1+) Lower Extremity: (LLE 2+) GI Symptoms: None Functional Status: Unable to assess Potential Signs of Inflammation: Hypoalbuminemia, Hyperglycemia Lines, Drains, and Airways Drain Duration External Collection Device 12/14/24 3 days MNT Billing: $ Initial Assessment: 1-15 minutes SIGNATURE: Emmanuel Amin RD PATIENT NAME: Elba Diaz DATE: December 17, 2024 TIME: 9:06 AM Normal [facility] THERAPY NTon 12-17-2024 THERAPY NT HNO ID: [id number] Author: DINA HIDALGO CCC-COMMERCIAL HORTICULTURE INSTRUCTOR Service: Speech/Swallow Author Type: Speech Language Pathologist Type: Therapy (PT/OT/Speech/Resp) Filed: 12/17/2024 11:57 Note Text: Speech Therapy Speech Evaluation SERVICE DATE: 12/17/2024 SERVICE TIME: 1115 to 1130 ROOM: [place] [address] IMPRESSION Functional without limitations in: Speech, Language, Cognition communication - altered mental status noted upon admission has resolved Response to Therapy Interventions: Good participation in activities Rehabilitation Precautions: Cognitive Linguistics Deficits, Communication Deficits DISCHARGE RECOMMENDATIONS Recommended Discharge Disposition: No further skilled speech therapy services anticipated CURRENT HOSPITAL COURSE 12/14 admitted with altered mental status. 12/14 CT brain with stable chronic changeds with no acute intracranial process. Reason for Speech Therapy Consult: speech, language, cognitive evaluations; altered mental status Relevant Past Medical History: CVA HOME ENVIRONMENT / PRIOR FUNCTIONAL LEVEL Prior Functional Level: Required Assistance Patient Lives With: Facility Care ([facility]) Assistance Available: 24 Hour Prior Swallowing Function/Diet Textures: Regular Consistency, Thin Liquids IDDSI Level 0 SUBJECTIVE The patient is awake, talking in full logical sentences. THERAPY DIAGNOSIS No Skilled Need TREATMENT INTERVENTIONS Speech Language Eval (90672) Skilled Treatment Time (minutes): 15 $ Speech Language Eval (16999) Billed Units: 1 unit TRAINING AND EDUCATION PROVIDED IN Cognitive Linguistic Strategies, Receptive Language Skills, Expressive Language Skills, Motor Speech Skills THERAPEUTIC SKILLS USED Education on role of discipline / importance of activity, Verbal cuing, Visual cuing OBJECTIVE Current Status Oral Hygiene: Clear, moist oral cavity Dentition: Retains Natural Dentition, Miscellaneous Missing Teeth Current Feeding Method: Oral Current Diet Textures: Regular Consistency, Thin Liquids IDDSI Level 0 Current Level Of Communication: Verbal Current Management Of Secretions: Able to self-manage Oral Motor Exam: Within Functional Limits COGNITION Cognitive Status: Within Functional Limits For Current Session The Orientation Log (O-Log) is designed to be a quick quantitative measure of orientation status for use at the bedside with rehabilitation inpatients. Place, time, and situational (Etiology/Event + Pathology/Deficits) domains are assessed. Patient responses are scored according to the following criteria: 3 = correct spontaneously or upon first free recall attempt 2 = correct upon logical cueing (e.g., That was yesterday, so today must be...) 1 = correct upon multiple choice or phonemic cueing 0 = incorrect despite cueing, inappropriate response, or unable to respond Stimulus Response/Score [facility] 12/[address] 12/22 Name of [facility] 12/22 Month 12/22 Date 11/24 Year 12/22 Day of Week 12/22 Clock Time 12/22 Etiology/Event 11/24 Pathology/Deficits 11/24 Total SPEECH/VOICE/LANGUAGE Speech Production: Within Functional Limits Expressive and Receptive Language: Within Functional Limits Except Auditory Comprehension Deficits: 1-Step Commands - (%): 100 1-Step Commands Cues Provided: Without Cues 2-Step Commands - (%): 75 2-Step Commands Cues Provided: Minimal, Verbal Cues, Visual Cues Simple Yes/No Questions - (%): 100 Simple Yes/No Questions Cues Provided: Without Cues Verbal Expression Deficits: Automatic Speech - (%): 100 Automatic Speech Cues Provided: Without Cues Confrontational Naming - (%): 100 Confrontational Naming Cues Provided: Without Cues Expressing Basic Needs/Wants - (%): 100 Expressing Basic Needs/Wants Cues Provided: Without Cues Expressing Complex Information - (%): 100 Expressing Complex Information Cues Provided: Without Cues Reading Comprehension Deficits: Word (%): 100 Sentence (%): 100 No further Speech Therapy indicated at this time Patient /Caregiver Goals: Eat/Drink Without Restrictions PLAN ST Frequency: Discontinue Therapy Services Reasons Inpatient Therapy Services Discontinued: No skilled needs Plan of Care Developed with: Patient 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 PATIENT NAME: Elba Diaz DATE: December 17, 2024 TIME: 11:55 AM Normal [facility] CBC W Auto Differential pane l (Bld)on 12-16-2024 Basophils (Bld) [#/Vol] 10*3/uL Normal <0.11 [facility] Comment on above: Order Comment: Speci men Type: BLOOD SPECIMENOrdering Facility: [facility] Address: [address] [place] [address] Performed By: #### 5 7021-8 ####[facility] [id number] [place] [address] [place] Basophils/100 WBC (Bld) 0.3 % Normal [facility] Comment on above: Order Comment: Speci men Type: BLOOD SPECIMENOrdering Facility: [facility] Address: [address] [place] [address] Performed By: #### 5 7021-8 ####[facility] [id number] [place] [address] [place] Differential cell count method Nom (Bld) Auto Normal [facility] Comment on above: Order Comment: Speci men Type: BLOOD SPECIMENOrdering Facility: [facility] Address: [address] [place] [address] Performed By: #### 5 7021-8 ####[facility] [id number] [place] [address] [place] Eosinophils (Bld) [#/Vol] 0.13 10*3/uL Normal <0.46 [facility] Comment on above: Order Comment: Speci men Type: BLOOD SPECIMENOrdering Facility: [facility] Address: [address] [place] [address] Performed By: #### 5 7021-8 ####[facility] [id number] [address] [place] OF [facility] Eosinophils/100 WBC (Bld) 2.1 % Normal [facility] Comment on above: Order Comment: Speci men Type: BLOOD SPECIMENOrdering Facility: [facility] Address: [address] [place] [address] Performed By: #### 5 7021-8 ####[facility] [id number] [address] [place] Erythrocyte distribution width (RBC) [Ratio] 12.2 % Normal 11.5-15.0 [facility] Comment on above: Order Comment: Speci men Type: BLOOD SPECIMENOrdering Facility: [facility] Address: [address] [place] [address] Performed By: #### 5 7021-8 ####[facility]ORATORYCLIA [id number] [address] [place] Hematocrit (Bld) [Volume fraction] 35.7 % Low 36.0-46.0 [facility] Comment on above: Order Comment: Speci men Type: BLOOD SPECIMENOrdering Facility: [facility] Address: [address] [place] [address] Performed By: #### 5 7021-8 ####[facility]ORATORYCLIA [id number] [address] [place] Hemoglobin (Bld) [Mass/Vol] 12.0 g/dL Normal 11.5-15.5 [facility] Comment on above: Order Comment: Speci men Type: BLOOD SPECIMENOrdering Facility: [facility] Address: [address] [place] [address] Performed By: #### 5 7021-8 ####[facility]ATORYCLIA [id number] [address] [place] Immature granulocytes (Bld) [#/Vol] 0.04 10*3/uL Normal <0.10 [facility] Comment on above: Order Comment: Speci men Type: BLOOD SPECIMENOrdering Facility: [facility] Address: [address] [place] [address] Performed By: #### 5 7021-8 ####[facility]ATORYCLIA [id number] [address] Immature granulocytes/100 WBC (Bld) 0.6 % Normal [facility] Comment on above: Order Comment: Speci men Type: BLOOD SPECIMENOrdering Facility: [facility] Address: [address] [place] [address] Performed By: #### 5 7021-8 ####[facility]ORATORYCLIA [id number] [address] STATES [facility] Lymphocytes (Bld) [#/Vol] 1.21 10*3/uL Normal 1.00-4.00 [facility] Comment on above: Order Comment: Speci men Type: BLOOD SPECIMENOrdering Facility: [facility] Address: [address] [place] [address] Performed By: #### 5 7021-8 ####[facility]ATORYCLIA [id number] [address] Lymphocytes/100 WBC (Bld) 19.2 % Normal [facility] Comment on above: Order Comment: Speci men Type: BLOOD SPECIMENOrdering Facility: [facility] Address: [address] [place] [address] Performed By: #### 5 7021-8 ####[facility]ORATORYCLIA [id number] [address] [place] MCH (RBC) [Entitic mass] 33.8 pg Normal 26.0-34.0 [facility] Comment on above: Order Comment: Speci men Type: BLOOD SPECIMENOrdering Facility: [facility] Address: [address] [place] [address] Performed By: #### 5 7021-8 ####[facility]ORATORYCLIA [id number] [address] STATES OF [facility] MCHC (RBC) [Mass/Vol] 33.6 g/dL Normal 30.5-36.0 [facility] Comment on above: Order Comment: Speci men Type: BLOOD SPECIMENOrdering Facility: [facility] Address: [address] [place] [address] Performed By: #### 5 7021-8 ####[facility]ATORYCLIA [id number] [address] [place] MCV (RBC) [Entitic vol] 100.6 fL High 80.0-100.0 [facility] Comment on above: Order Comment: Speci men Type: BLOOD SPECIMENOrdering Facility: [facility] Address: [address] [place] [address] Performed By: #### 5 7021-8 ####[facility]ORYCLIA [id number] [address] [place] Monocytes (Bld) [#/Vol] 0.61 10*3/uL Normal <0.87 [facility] Comment on above: Order Comment: Speci men Type: BLOOD SPECIMENOrdering Facility: [facility] Address: [address] [place] [address] Performed By: #### 5 7021-8 ####[facility]ATORYCLIA [id number] [address] Monocytes/100 WBC (Bld) 9.7 % Normal [facility] Comment on above: Order Comment: Speci men Type: BLOOD SPECIMENOrdering Facility: [facility] Address: [address] [place] [address] Performed By: #### 5 7021-8 ####[facility]ATORYCLIA [id number] [address] [place] Neutrophils (Bld) [#/Vol] 4.30 10*3/uL Normal 1.45-7.50 [facility] Comment on above: Order Comment: Speci men Type: BLOOD SPECIMENOrdering Facility: [facility] Address: [address] [place] [address] Performed By: #### 5 7021-8 ####[facility]ATORYCLIA [id number] [address] [place] Neutrophils/100 WBC (Bld) 68.1 % Normal [facility] Comment on above: Order Comment: Speci men Type: BLOOD SPECIMENOrdering Facility: [facility] Address: [address] [place] [address] Performed By: #### 5 7021-8 ####[facility]ATORYCLIA [id number] [address] [place] Nucleated RBC (Bld) [#/Vol] 10*3/uL Normal <0.01 [facility] Comment on above: Order Comment: Speci men Type: BLOOD SPECIMENOrdering Facility: [facility] Address: [address] [place] [address] Performed By: #### 5 7021-8 ####[facility]ATORYCLIA [id number] [address] [place] Nucleated RBC/100 WBC (Bld) [Ratio] 0.0 /100 WBC Normal [facility] Comment on above: Order Comment: Speci men Type: BLOOD SPECIMENOrdering Facility: [facility] Address: [address] [place] [address] Performed By: #### 5 7021-8 ####[facility]ORATORYCLIA [id number] [address] [place] Platelet mean volume (Bld) [Entitic vol] 8.8 fL Low 9.0-12.7 [facility] Comment on above: Order Comment: Speci men Type: BLOOD SPECIMENOrdering Facility: [facility] Address: [address] [place] [address] Performed By: #### 5 7021-8 ####[facility]ORATORYCLIA [id number] [place] [address] [place] Platelets (Bld) [#/Vol] 116 10*3/uL Low 150-400 [facility] Comment on above: Order Comment: Speci men Type: BLOOD SPECIMENOrdering Facility: [facility] Address: [address] [place] [address] Performed By: #### 5 7021-8 ####[facility]ATORYCLIA [id number] [address] STATES OF [facility] RBC (Bld) [#/Vol] 3.55 10*6/uL Low 3.90-5.20 [facility] Comment on above: Order Comment: Speci men Type: BLOOD SPECIMENOrdering Facility: [facility] Address: [address] [place] [address] Performed By: #### 5 7021-8 ####[facility]ATORYCLIA [id number] [address] STATES OF [facility] WBC (Bld) [#/Vol] 6.31 10*3/uL Normal 3.70-11.00 [facility] Comment on above: Order Comment: Speci men Type: BLOOD SPECIMENOrdering Facility: [facility] Address: [address] [place] [address] Performed By: #### 5 7021-8 ####[facility]ORATORYCLIA [id number] [address] [place] Comprehensive metabolic 2000 panelon 12-16-2024 Albumin [Mass/Vol] 3.1 g/dL Low 3.9-4.9 [facility] Comment on above: Order Comment: Speci men Type: BLOOD SPECIMEN [facility] Address: [address] [place] [address] Performed By: #### 2 4321-2, 29133-4, 3016-3 #### [facility] CLIA [id number] [address] ALP [Catalytic activity/Vol] 78 U/L Normal 34-123 [facility] Comment on above: Order Comment: Speci men Type: BLOOD SPECIMEN [facility] Address: [address] [place] [address] Performed By: #### 2 4321-2, 21360-4, 3015-3 #### [facility] CLIA [id number] [address] OF [facility] ALT With P-5'-P [Catalytic activity/Vol] 18 U/L Normal 7-38 [facility] Comment on above: Order Comment: Speci men Type: BLOOD SPECIMEN [facility] Address: [address] [place] [address] Performed By: #### 2 4321-2, , 3015-3 #### [facility] CLIA [id number] [address] OF [facility] Anion gap [Moles/Vol] 11 mmol/L Normal 8-15 [facility] Comment on above: Order Comment: Speci men Type: BLOOD SPECIMEN [facility] Address: [address] [place] [address] Performed By: #### 2 4321-2, , 3 #### [facility] CLIA [id number] [address] AST With P-5'-P [Catalytic activity/Vol] 31 U/L Normal 13-35 [facility] Comment on above: Order Comment: Speci men Type: BLOOD SPECIMEN [facility] Address: [address] [place] [address] Performed By: #### 2 4321-2, , 3 #### [facility] CLIA [id number] [address] OF [facility] Bilirubin [Mass/Vol] 0.2 mg/dL Normal 0.2-1.3 [facility] Comment on above: Order Comment: Speci men Type: BLOOD SPECIMEN [facility] Address: [address] [place] [id number] Performed By: #### 2 4321-2, , 3015-3 #### [facility] CLIA [id number] [address] [place] Calcium [Mass/Vol] 8.5 mg/dL Normal 8.5-10.2 [facility] Comment on above: Order Comment: Speci men Type: BLOOD SPECIMEN [facility] Address: [address] [place] [address] Performed By: #### 2 4321-2, , 3 #### [facility] CLIA [id number] [address] [place] [address] [place] Chloride [Moles/Vol] 105 mmol/L Normal 98-107 [facility] Comment on above: Order Comment: Speci men Type: BLOOD SPECIMEN [facility] Address: [address] [place] [address] Performed By: #### 2 4321-2, , 3 #### [facility] CLIA [id number] [address] [place] CO2 [Moles/Vol] 22 mmol/L Normal 22-30 [facility] Comment on above: Order Comment: Speci men Type: BLOOD SPECIMEN [facility] Address: [address] [place] [address] Performed By: #### 2 4321-2, , 3 #### [facility] CLIA [id number] [address] [place] Creatinine [Mass/Vol] 0.36 mg/dL Low 0.58-0.96 [facility] Comment on above: Order Comment: Speci men Type: BLOOD SPECIMEN [facility] Address: [address] [place] [address] Performed By: #### 2 4321-2, , 3 #### [facility] CLIA [id number] [address] Creatinine and Glomerular filtration rate.predicted panel (S/P/Bld) 107 mL/min/1.73m??? Normal >=60 [facility] Comment on above: Order Comment: Vicky montilla Type: BLOOD SPECIMEN [facility] Address: [address] [place] [place] [id number] Result Comment: Cecy mated Glomerular Filtration Rate (eGFR) is calculated using the 2020 CKD-EPI creatinine equation. This equation utilizes serum creatinine, sex, and age as parameters. The creatinine assay has traceable calibration to isotope dilution-mass spectrometry. Refer to KDIGO guidelines for clinical interpretation. In patients with unstable renal function, e.g. those with acute kidney injury, the eGFR may not accurately reflect actual GFR. Performed By: #### 2 4321-2, 24232-4, 3015-3 #### [facility] CLIA [id number] [address] [place] [address] [place] Glucose [Mass/Vol] 103 mg/dL High 74-99 [facility] Comment on above: Order Comment: Vicky montilla Type: BLOOD SPECIMEN [facility] Address: [address] [place] [address] Result Comment: The [place] Diabetes [employer] (ADA) provides guidance for cutoff values for fasting glucose and random glucose. The ADA defines fasting as no caloric intake for at least 8 hours. Fasting plasma glucose results between 100 to 125 mg/dL indicate increased risk for diabetes (prediabetes). Fasting plasma glucose results greater than or equal to 126 mg/dL meet the criteria for diagnosis of diabetes. In the absence of unequivocal hyperglycemia, results should be confirmed by repeat testing. In a patient with classic symptoms of hyperglycemia or hyperglycemic crisis, random plasma glucose results greater than or equal to 200 mg/dL meet the criteria for diagnosis of diabetes. Reference: Standards of Medical Care in Diabetes 2016, [place] [employer]. Diabetes Care. 2016.39(Suppl 1). Performed By: #### 2 4321-2, 75017-7, 3015-3 #### [facility] CLIA [id number] [address] [place] [address] [place] Potassium [Moles/Vol] 3.5 mmol/L Low 3.7-5.1 [facility] Comment on above: Order Comment: Vicky montilla Type: BLOOD SPECIMEN [facility] Address: [address] [place] [address] Performed By: #### 2 4321-2, 83939-1, 6-3 #### [facility] CLIA [id number] [address] [place] Protein [Mass/Vol] 5.9 g/dL Low 6.3-8.0 [facility] Comment on above: Order Comment: Speci men Type: BLOOD SPECIMEN [facility] Address: [address] [place] [address] Performed By: #### 2 4321-2, , 6-3 #### [facility] CLIA [id number] [address] [place] Sodium [Moles/Vol] 138 mmol/L Normal 136-144 [facility] Comment on above: Order Comment: Speci men Type: BLOOD SPECIMEN [facility] Address: [address] [place] [address] Performed By: #### 2 4321-2, , 3015-3 #### [facility] CLIA [id number] [address] [place] Urea nitrogen [Mass/Vol] 5 mg/dL Low 7-21 [facility] Comment on above: Order Comment: Speci men Type: BLOOD SPECIMEN [facility] Address: [address] [place] [address] Performed By: #### 2 4321-2, , 6-3 #### [facility] CLIA [id number] [address] [place] THERAPY NTon 12-16-2024 THERAPY NT HNO ID: [id number] Author: VIANNEY GARCIA OTR/Jenni Service: Occupational Therapy Author Type: Occupational Therapist Type: Therapy (PT/OT/Speech/Resp) Filed: 12/16/2024 11:01 Note Text: Occupational Therapy Evaluation Summary SERVICE DATE: 12/16/2024 SERVICE TIME: 0915 to 0943 ROOM: [place] [address] OT 6 Clicks Score: 11 DISCHARGE RECOMMENDATIONS ECF Recommended Discharge Disposition Comments: D/C OT, patient is total care and araseli lifted, will sign off. ASSESSMENT Response to Therapy Interventions: Good Participation in Activities Patient at baseline, no skilled OT needs, will sign off. 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 She is araseli lifted to the her w/c. Baseline Cognition: Oriented to self, Oriented to place, Oriented to time, Oriented to situation SUBJECTIVE agreeable to session COGNITION Responsiveness: Alert Follows Commands: 2-step Commands Executive Function Deficits: Safety Awareness THERAPY DIAGNOSIS No Skilled Need TREATMENT INTERVENTIONS Evaluation Skilled Treatment Time (minutes): 28 $ Evaluation - Low (64852) Billed Units: 1 unit TRAINING AND EDUCATION PROVIDED Role of Occupational Therapy, Toileting , Bed Mobility THERAPEUTIC SKILLS USED Activity Dosing FUNCTIONAL STATUS Activities of Daily Living Assist Level Additional Information Feeding Set Up Grooming Minimal Assistance Bathing Upper Body Maximal Assistance Bathing Lower Body Total Assistance Dressing Upper Body Maximal Assistance Dressing Lower Body Total Assistance Toileting Total Assistance Willow care completed at bed level. Increased time provided to roll left and right in bed. Mobility Assist Level Additional Information Bed Mobility Rolling: Maximal Assistance Supine To Sit: Total Assistance Sit to Stand Stand to Sit Bed to Chair Toilet/Commode Shower Functional Mobility Range of Motion: WFL Except, ROM Limitation Comments ROM Limitation Comments: LUE hemiparetic, no funtional movement Strength: WFL Except, Upper Extremity Comments Right Upper Extremity Strength Comments: 3/5 Left Upper Extremity Strength Comments: 0/5 GOALS none PLAN OT Frequency: Discontinue Therapy Services Reasons Therapy Services Discontinued: No skilled needs SIGNATURE: WINTER Saavedra/Jenni PATIENT NAME: Elba Diaz DATE: December 16, 2024 TIME: 11:00 AM Normal [facility] THERAPY NT HNO ID: [id number] Author: DINA MCMANUS PT Service: Physical Therapy Author Type: Physical Therapist Type: Therapy (PT/OT/Speech/Resp) Filed: 12/16/2024 09:51 Note Text: PHYSICAL THERAPY MISSED VISIT SERVICE DATE: 12/16/2024 SERVICE TIME: 949 ROOM: [place] [address] Patient not seen due to Clinical Appropriateness. Patient araseli lift at [facility] prior to hospitalization. Patient able to return to [facility] SIGNATURE: Dina Mcmanus PT PATIENT NAME: Elba Diaz DATE: December 16, 2024 TIME: 9:50 AM Normal [facility] Basic metabolic 2000 panelon 12-15-2024 Anion gap [Moles/Vol] 13 mmol/L Normal 8-15 [facility] Comment on above: Order Comment: Speci men Type: BLOOD SPECIMEN [facility] Address: [address] [place] [address] Performed By: #### 2 4321-2, , 3 #### [facility] CLIA [id number] [address] [place] [address] [place] Calcium [Mass/Vol] 8.3 mg/dL Low 8.5-10.2 [facility] Comment on above: Order Comment: Speci men Type: BLOOD SPECIMEN [facility] Address: [address] [place] [address] Performed By: #### 2 4321-2, , 3 #### [facility] CLIA [id number] [address] [place] [address] [place] Chloride [Moles/Vol] 107 mmol/L Normal 98-107 [facility] Comment on above: Order Comment: Speci men Type: BLOOD SPECIMEN [facility] Address: [address] [place] [address] Performed By: #### 2 4321-2, , 3 #### [facility] CLIA [id number] [address] [place] [address] [place] CO2 [Moles/Vol] 20 mmol/L Low 22-30 [facility] Comment on above: Order Comment: Speci men Type: BLOOD SPECIMEN [facility]: [facility] Address: [address] [place] [address] Performed By: #### 2 4321-2, 18584-5, 3015-3 #### [facility] CLIA [id number] [address] OF [facility] Creatinine [Mass/Vol] 0.37 mg/dL Low 0.58-0.96 [facility] Comment on above: Order Comment: Vicky montilla Type: BLOOD SPECIMEN [facility]: [facility] Address: [address] [place] [address] Performed By: #### 2 4321-2, , 3 #### [facility] CLIA [id number] [address] Creatinine and Glomerular filtration rate.predicted panel (S/P/Bld) 107 mL/min/1.73m??? Normal >=60 [facility] Comment on above: Order Comment: Vicky montilla Type: BLOOD SPECIMEN [facility]ing Facility: [facility] Address: [address] [place] [address] Result Comment: Cecy mated Glomerular Filtration Rate (eGFR) is calculated using the 2020 CKD-EPI creatinine equation. This equation utilizes serum creatinine, sex, and age as parameters. The creatinine assay has traceable calibration to isotope dilution-mass spectrometry. Refer to KDIGO guidelines for clinical interpretation. In patients with unstable renal function, e.g. those with acute kidney injury, the eGFR may not accurately reflect actual GFR. Performed By: #### 2 4321-2, , 3 #### [facility] CLIA [id number] [address] [place] Glucose [Mass/Vol] 73 mg/dL Low 74-99 [facility] Comment on above: Order Comment: Vicky montilla Type: BLOOD SPECIMEN [facility]ing Facility: [facility] Address: [address] [place] [address] Result Comment: The [place] Diabetes Association (ADA) provides guidance for cutoff values for fasting glucose and random glucose. The ADA defines fasting as no caloric intake for at least 8 hours. Fasting plasma glucose results between 100 to 125 mg/dL indicate increased risk for diabetes (prediabetes). Fasting plasma glucose results greater than or equal to 126 mg/dL meet the criteria for diagnosis of diabetes. In the absence of unequivocal hyperglycemia, results should be confirmed by repeat testing. In a patient with classic symptoms of hyperglycemia or hyperglycemic crisis, random plasma glucose results greater than or equal to 200 mg/dL meet the criteria for diagnosis of diabetes. Reference: Standards of Medical Care in Diabetes 2016, [place] [employer]. Diabetes Care. 2016.39(Suppl 1). Performed By: #### 2 4321-2, , 3 #### [facility] CLIA [id number] [address] [place] [address] [place] Potassium [Moles/Vol] 3.6 mmol/L Low 3.7-5.1 [facility] Comment on above: Order Comment: Vicky montilla Type: BLOOD SPECIMEN [facility]ing Facility: [facility] Address: [address] [place] [address] Performed By: #### 2 1-2, , 3 #### [facility] CLIA [id number] [address] [place] Sodium [Moles/Vol] 140 mmol/L Normal 136-144 [facility] Comment on above: Order Comment: Vicky montilla Type: BLOOD SPECIMEN [facility]ing Facility: [facility] Address: [address] [place] [address] Performed By: #### 2 4321-2, , 3 #### [facility] CLIA [id number] [address] [place] [address] [place] Urea nitrogen [Mass/Vol] 11 mg/dL Normal 7-21 [facility] Comment on above: Order Comment: Vicky montilla Type: BLOOD SPECIMEN Ordering Facility: [facility] Address: [address] [place] [address] Performed By: #### 2 4321-2, , 3 #### [facility] CLIA [id number] [address] [place] CBC panel Auto (Bld)on 12-15 Erythrocyte distribution width (RBC) [Ratio] 12.2 % Normal 11.5-15.0 [facility] Comment on above: Order Comment: Speci men Type: BLOOD SPECIMEN Ordering Facility: [facility] Address: [address] [place] [address] Performed By: #### 3 0471-7 #### [facility] CLIA [id number] [address] [place] [address] [place] Hematocrit (Bld) [Volume fraction] 33.8 % Low 36.0-46.0 [facility] Comment on above: Order Comment: Speci men Type: BLOOD SPECIMEN [facility]ing Facility: [facility] Address: [address] [place] [address] Performed By: #### 3 0471-7 #### [facility] CLIA [id number] [address] [place] [address] [place] Hemoglobin (Bld) [Mass/Vol] 10.9 g/dL Low 11.5-15.5 [facility] Comment on above: Order Comment: Speci men Type: BLOOD SPECIMEN [facility]ing Facility: [facility] Address: [address] [place] [address] Performed By: #### 3 0471-7 #### [facility] LAB CLIA [id number] [address] [place] [address] [place] MCH (RBC) [Entitic mass] 33.6 pg Normal 26.0-34.0 [facility] Comment on above: Order Comment: Speci men Type: BLOOD SPECIMEN Ordering Facility: [facility] Address: [address] [place] [address] Performed By: #### 3 0471-7 #### [facility] CLIA [id number] [address] [place] [address] [place] MCHC (RBC) [Mass/Vol] 32.2 g/dL Normal 30.5-36.0 [facility] Comment on above: Order Comment: Speci men Type: BLOOD SPECIMEN Ordering Facility: [facility] Address: [address] [place] [address] Performed By: #### 3 0471-7 #### [facility] CLIA [id number] [address] [place] [address] [place] MCV (RBC) [Entitic vol] 104.3 fL High 80.0-100.0 [facility] Comment on above: Order Comment: Speci men Type: BLOOD SPECIMEN Ordering Facility: [facility] Address: [address] [place] [address] Performed By: #### 3 0471-7 #### [facility] CLIA [id number] [address] [place] [address] [place] Nucleated RBC (Bld) [#/Vol] 10*3/uL Normal <0.01 [facility] Comment on above: Order Comment: Speci men Type: BLOOD SPECIMEN Ordering Facility: [facility] Address: [address] [place] [address] Performed By: #### 3 0471-7 #### [facility] CLIA [id number] [address] [place] [address] [place] Platelet mean volume (Bld) [Entitic vol] 8.9 fL Low 9.0-12.7 [facility] Comment on above: Order Comment: Speci men Type: BLOOD SPECIMEN Ordering Facility: [facility] Address: [address] [place] [address] Performed By: #### 3 0471-7 #### [facility] CLIA [id number] [address] [place] [address] [place] Platelets (Bld) [#/Vol] 109 10*3/uL Low 150-400 [facility] Comment on above: Order Comment: Speci men Type: BLOOD SPECIMEN Ordering Facility: [facility] Address: [address] [place] [address] Performed By: #### 3 0471-7 #### [facility] CLIA [id number] [address] [place] [address] [place] RBC (Bld) [#/Vol] 3.24 10*6/uL Low 3.90-5.20 [facility] Comment on above: Order Comment: Speci men Type: BLOOD SPECIMEN Ordering Facility: [facility] Address: [address] [place] [address] Performed By: #### 3 0471-7 #### [facility] CLIA [id number] [address] [place] [address] [place] WBC (Bld) [#/Vol] 7.76 10*3/uL Normal 3.70-11.00 [facility] Comment on above: Order Comment: Speci men Type: BLOOD SPECIMEN Ordering Facility: [facility] Address: [address] [place] [address] Performed By: #### 3 0471-7 #### [facility] CLIA [id number] [address] [place] [address] [place] CONFIRM BLOOD TYPEon 025 ABO A Normal [facility] Comment on above: Order Comment: Speci men Type: BLOOD SPECIMENOrdering Facility: [facility] Address: [address] [place] [address] Performed By: #### C ONABO ####[facility] BLO[facility] BANKCLIA [id number] [place] [address] [place] Rh Nom (Bld) Positive Normal [facility] Comment on above: Order Comment: Speci men Type: BLOOD SPECIMENOrdering Facility: [facility] Address: [address] [place] [address] Performed By: #### C ONABO ####[facility] BLO[facility] BANKCLIA [id number] [address] [place] ED NOTEon 12-15-2024 ED NOTE HNO ID: [id number] Author: LEEANN BRIONES RN Service: ? Author Type: Registered Nurse Type: ED Notes Filed: 12/15/2024 20:50 Note Text: RN report call x2, informed 4100 pt will go up in 15 minutes at this time [facility] ED NOTE HNO ID: [id number] Author: LEEANN BRIONES RN Service: ? Author Type: Registered Nurse Type: ED Notes Filed: 12/15/2024 20:51 Note Text: Report call x1 attempt, no answer [facility] ED NOTE HNO ID: [id number] Author: YENNY HENDERSON, MONAE Service: Emergency Medicine Author Type: Registered Nurse Type: ED Notes Filed: 12/15/2024 18:13 Note Text: Awaiting D5-.09%NaCl with potassium chloride 20 meq from pharmacy [facility] ED NOTE HNO ID: [id number] Author: YENNY HENDERSON, MONAE Service: Emergency Medicine Author Type: Registered Nurse Type: ED Notes Filed: 12/15/2024 18:11 Note Text: Pt given dinner tray at this time [facility] ED NOTE HNO ID: [id number] Author: YENNY HENDERSON, MONAE Service: Emergency Medicine Author Type: Registered Nurse Type: ED Notes Filed: 12/15/2024 13:27 Note Text: Pt given meal tray at this time [facility] ED NOTE HNO ID: [id number] Author: YENNY HENDERSON, MONAE Service: Emergency Medicine Author Type: Registered Nurse Type: ED Notes Filed: 12/15/2024 12:55 Note Text: Pt given a full bed change. Pt has a stage 2 pressure wound on coccyx. Previous Allevyn dressing removed and new one placed at this time. 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 Test performed due to noticing pts Glucose 73 at 0542. [facility] ED NOTE HNO ID: [id number] Author: KAILEE CRAIN, MONAE Service: Nursing Author Type: Registered Nurse Type: ED Notes Filed: 12/15/2024 06:12 Note Text: Called sound and made aware of the hgb drop. Spoke with Dr. Cano, he stated he would let Dr. Carreno know. [facility] ALLIED HEALTHon 12-14-2024 ALLIED HEALTH HNO ID: [id number] Author: ARIANNA DAVIS Tech Service: Radiology Author Type: Technologist Type: Allied Health Filed: 12/14/2024 16:33 Note Text: Radiology Service Progress Note PATIENT NAME: Elba Diaz DATE OF SERVICE: December 14, 2024 TIME: 4:32 PM PATIENT IDENTITY VERIFICATION COMPLETED USING TWO (2) IDENTIFIERS: Name and Date of confirmed by patient verbally and Name and Date of confirmed by identification band. FALL SCREENING: Has the patient had 2 falls in the last year or 1 fall with injury or currently using an Ambulatory Assistive Device (Walker, Cane, Wheelchair, Crutches, etc.)? Emergency Room Patient: Screened in ED PATIENT GENDER DATA: Assigned female at . status: : No status: NO. PATIENT RELEVANT IMPLANT DATA REVIEWED: Yes PATIENT PRESENTS WITH AN IMPLANTABLE OR ATTACHED FINISHED YARN EXAMINER: No RADIOLOGY DEPARTMENT: CT; Exam(s) Completed: Brain PERIPHERAL IV DATA: Not applicable SIGNED BY: Karo Degroot December 14, 2024 4:32 PM [facility] CBC W Auto Differential pane l (Bld)on 12-14-2024 Basophils (Bld) [#/Vol] 0.04 10*3/uL Normal <0.11 [facility] Comment on above: Order Comment: Speci men Type: BLOOD SPECIMEN Ordering Facility: [facility] Address: [address] [place] [address] Performed By: #### 3 0471-7 #### [facility] CLIA [id number] [address] [place] [address] [place] Basophils/100 WBC (Bld) 0.5 % Normal [facility] Comment on above: Order Comment: Speci men Type: BLOOD SPECIMEN Ordering Facility: [facility] Address: [address] [place] [address] Performed By: #### 3 0471-7 #### [facility] CLIA [id number] [address] [place] [address] [place] Differential cell count method Nom (Bld) Auto Normal [facility] Comment on above: Order Comment: Speci men Type: BLOOD SPECIMEN Ordering Facility: [facility] Address: [address] [place] [address] Performed By: #### 3 0471-7 #### [facility] CLIA [id number] [address] [place] [address] [place] Eosinophils (Bld) [#/Vol] 0.05 10*3/uL Normal <0.46 [facility] Comment on above: Order Comment: Speci men Type: BLOOD SPECIMEN Ordering Facility: [facility] Address: [address] [place] [address] Performed By: #### 3 0471-7 #### [facility] CLIA [id number] [address] [place] [address] [place] Eosinophils/100 WBC (Bld) 0.6 % Normal [facility] Comment on above: Order Comment: Speci men Type: BLOOD SPECIMEN Ordering Facility: [facility] Address: [address] [place] [address] Performed By: #### 3 0471-7 #### [facility] CLIA [id number] [address] [place] [address] [place] Erythrocyte distribution width (RBC) [Ratio] 12.6 % Normal 11.5-15.0 [facility] Comment on above: Order Comment: Speci men Type: BLOOD SPECIMEN Ordering Facility: [facility] Address: [address] [place] [address] Performed By: #### 3 0471-7 #### [facility] CLIA [id number] [address] [place] [address] [place] Hematocrit (Bld) [Volume fraction] 42.6 % Normal 36.0-46.0 [facility] Comment on above: Order Comment: Speci men Type: BLOOD SPECIMEN Ordering Facility: [facility] Address: [address] [place] [address] Performed By: #### 3 0471-7 #### [facility] CLIA [id number] [address] [place] [address] [place] Hemoglobin (Bld) [Mass/Vol] 13.6 g/dL Normal 11.5-15.5 [facility] Comment on above: Order Comment: Speci men Type: BLOOD SPECIMEN Ordering Facility: [facility] Address: [address] [place] [address] Performed By: #### 3 0471-7 #### [facility] CLIA [id number] [address] [place] [address] [place] Immature granulocytes (Bld) [#/Vol] 0.03 10*3/uL Normal <0.10 [facility] Comment on above: Order Comment: Speci men Type: BLOOD SPECIMEN Ordering Facility: [facility] Address: [address] [place] [address] Performed By: #### 3 0471-7 #### [facility] CLIA [id number] [address] [place] [address] [place] Immature granulocytes/100 WBC (Bld) 0.3 % Normal [facility] Comment on above: Order Comment: Speci men Type: BLOOD SPECIMEN Ordering Facility: [facility] Address: [address] [place] [address] Performed By: #### 3 0471-7 #### [facility] CLIA [id number] [address] [place] [address] [place] Lymphocytes (Bld) [#/Vol] 1.56 10*3/uL Normal 1.00-4.00 [facility] Comment on above: Order Comment: Speci men Type: BLOOD SPECIMEN Ordering Facility: [facility] Address: [address] [place] [address] Performed By: #### 3 0471-7 #### [facility] CLIA [id number] [address] [place] [address] [place] Lymphocytes/100 WBC (Bld) 17.6 % Normal [facility] Comment on above: Order Comment: Speci men Type: BLOOD SPECIMEN Ordering Facility: [facility] Address: [address] [place] [address] Performed By: #### 3 0471-7 #### [facility] CLIA [id number] [address] [place] [address] [place] MCH (RBC) [Entitic mass] 33.3 pg Normal 26.0-34.0 [facility] Comment on above: Order Comment: Speci men Type: BLOOD SPECIMEN Ordering Facility: [facility] Address: [address] [place] [address] Performed By: #### 3 0471-7 #### [facility] CLIA [id number] [address] [place] [address] [place] MCHC (RBC) [Mass/Vol] 31.9 g/dL Normal 30.5-36.0 [facility] Comment on above: Order Comment: Speci men Type: BLOOD SPECIMEN Ordering Facility: [facility] Address: [address] [place] [address] Performed By: #### 3 0471-7 #### [facility] CLIA [id number] [address] [place] [address] [place] MCV (RBC) [Entitic vol] 104.2 fL High 80.0-100.0 [facility] Comment on above: Order Comment: Speci men Type: BLOOD SPECIMEN Ordering Facility: [facility] Address: [address] [place] [address] Performed By: #### 3 0471-7 #### [facility] CLIA [id number] [address] [place] [address] [place] Monocytes (Bld) [#/Vol] 0.83 10*3/uL Normal <0.87 [facility] Comment on above: Order Comment: Speci men Type: BLOOD SPECIMEN Ordering Facility: [facility] Address: [address] [place] [address] Performed By: #### 3 0471-7 #### [facility] CLIA [id number] [address] [place] [address] [place] Monocytes/100 WBC (Bld) 9.3 % Normal [facility] Comment on above: Order Comment: Speci men Type: BLOOD SPECIMEN Ordering Facility: [facility] Address: [address] [place] [address] Performed By: #### 3 0471-7 #### [facility] CLIA [id number] [address] [place] [address] [place] Neutrophils (Bld) [#/Vol] 6.37 10*3/uL Normal 1.45-7.50 [facility] Comment on above: Order Comment: Speci men Type: BLOOD SPECIMEN Ordering Facility: [facility] Address: [address] [place] [address] Performed By: #### 3 0471-7 #### [facility] CLIA [id number] [address] [place] [address] [place] Neutrophils/100 WBC (Bld) 71.7 % Normal [facility] Comment on above: Order Comment: Speci men Type: BLOOD SPECIMEN Ordering Facility: [facility] Address: [address] [place] [address] Performed By: #### 3 0471-7 #### [facility] CLIA [id number] [address] [place] [address] [place] Nucleated RBC (Bld) [#/Vol] 10*3/uL Normal <0.01 [facility] Comment on above: Order Comment: Speci men Type: BLOOD SPECIMEN Ordering Facility: [facility] Address: [address] [place] [address] Performed By: #### 3 0471-7 #### [facility] CLIA [id number] [address] [place] [address] [place] Nucleated RBC/100 WBC (Bld) [Ratio] 0.0 /100 WBC Normal [facility] Comment on above: Order Comment: Speci men Type: BLOOD SPECIMEN Ordering Facility: [facility] Address: [address] [place] [address] Performed By: #### 3 0471-7 #### [facility] CLIA [id number] [address] [place] [address] [place] Platelet mean volume (Bld) [Entitic vol] 9.1 fL Normal 9.0-12.7 [facility] Comment on above: Order Comment: Speci men Type: BLOOD SPECIMEN Ordering Facility: [facility] Address: [address] [place] [address] Performed By: #### 3 0471-7 #### [facility] CLIA [id number] [address] [place] [address] [place] Platelets (Bld) [#/Vol] 152 10*3/uL Normal 150-400 [facility] Comment on above: Order Comment: Speci men Type: BLOOD SPECIMEN Ordering Facility: [facility] Address: [address] [place] [address] Performed By: #### 3 0471-7 #### [facility] CLIA [id number] [address] [place] [address] [place] RBC (Bld) [#/Vol] 4.09 10*6/uL Normal 3.90-5.20 [facility] Comment on above: Order Comment: Speci men Type: BLOOD SPECIMEN Ordering Facility: [facility] Address: [address] [place] [address] Performed By: #### 3 0471-7 #### [facility] CLIA [id number] [address] [place] [address] [place] WBC (Bld) [#/Vol] 8.88 10*3/uL Normal 3.70-11.00 [facility] Comment on above: Order Comment: Speci men Type: BLOOD SPECIMEN Ordering Facility: [facility] Address: [address] [place] [address] Performed By: #### 3 0471-7 #### [facility] CLIA [id number] [address] [place] [address] [facility] [address] BRAIN WO IVCONon 12-14-19 CT BRAIN WO IVCON * * *Final Report* * * DATE OF EXAM: Dec 14 2024 4:34PM [facility] 0504 - CT BRAIN WO IVCON / PROCEDURE REASON: Encephalitis * * * * Physician Interpretation * * * * EXAMINATION: CT BRAIN WO IVCON CLINICAL HISTORY: Altered mental status TECHNIQUE: Serial axial images without IV contrast were obtained from the vertex to the foramen magnum. MQ: CTBWO_3 CT Radiation dose: Integrated Dose-Length Product (DLP) for this visit = 805 mGy*cm CT Dose Reduction Employed: Automated exposure control(AEC) and iterative recon COMPARISON: 11/03/2021, and others RESULT: Localizer images: Unremarkable. Post-operative change: None. Acute change: No evidence of an acute infarct or other acute parenchymal process. Hemorrhage: No evidence of acute intracranial hemorrhage. ECASS hemorrhagic transformation score: Not Applicable Mass Lesion / Mass Effect: There is no evidence of an intracranial mass or extraaxial fluid collection. No significant mass effect. Chronic change: Right MCA territory encephalomalacia appears largely stable. Parenchyma: There is moderate generalized volume loss. The brain parenchyma is otherwise within normal limits for age. Ventricles: Ventricular enlargement concordant with the degree of parenchymal volume loss. Paranasal sinuses and skull base: The visualized paranasal sinuses are grossly clear. The skull base and imaged soft tissues are unremarkable. IMPRESSION: Stable chronic changes with no acute intracranial process identified. Air And Water Tester: ALEXANDRO Transcribe Date/Time: Dec 14 2024 4:59P Dictated by : FANTA WOODWARD MD This examination was interpreted and the report reviewed and electronically signed by: FANTA WOODWARD MD on Dec 14 2024 5:00PM EST [id number] Normal [facility] Comprehensive metabolic 2000 panelon 12-14-2024 Albumin [Mass/Vol] 3.8 g/dL Low 3.9-4.9 [facility] Comment on above: Order Comment: Vicky montilla Type: BLOOD SPECIMEN Ordering Facility: [facility] Address: [address] [place] [address] Performed By: #### 2 4321-2, , 3015-3 #### [facility] CLIA [id number] [address] [place] ALP [Catalytic activity/Vol] 77 U/L Normal 34-123 [facility] Comment on above: Order Comment: Vicky montilla Type: BLOOD SPECIMEN Ordering Facility: [facility] Address: [address] [place] [address] Performed By: #### 2 4321-2, , 3015-3 #### [facility] CLIA [id number] [address] STATES OF [facility] ALT With P-5'-P [Catalytic activity/Vol] 17 U/L Normal 7-38 [facility] Comment on above: Order Comment: Vicky montilla Type: BLOOD SPECIMEN Ordering Facility: [facility] Address: [address] [place] [address] Performed By: #### 2 4321-2, , 6-3 #### [facility] CLIA [id number] [address] [place] Anion gap [Moles/Vol] 14 mmol/L Normal 8-15 [facility] Comment on above: Order Comment: Speci men Type: BLOOD SPECIMEN Ordering Facility: [facility] Address: [address] [place] [address] Performed By: #### 2 4321-2, , 3 #### [facility] CLIA [id number] [address] [place] [address] [place] AST With P-5'-P [Catalytic activity/Vol] 27 U/L Normal 13-35 [facility] Comment on above: Order Comment: Speci men Type: BLOOD SPECIMEN Ordering Facility: [facility] Address: [address] [place] [address] Performed By: #### 2 4321-2, , 3015-12 #### [facility] CLIA [id number] [address] [place] Bilirubin [Mass/Vol] 0.3 mg/dL Normal 0.2-1.3 [facility] Comment on above: Order Comment: Speci men Type: BLOOD SPECIMEN Ordering Facility: [facility] Address: [address] [place] [address] Performed By: #### 2 4321-2, , 3015-12 #### [facility] CLIA [id number] [address] [place] Calcium [Mass/Vol] 9.9 mg/dL Normal 8.5-10.2 [facility] Comment on above: Order Comment: Speci men Type: BLOOD SPECIMEN Ordering Facility: [facility] Address: [address] [place] [address] Performed By: #### 2 4321-2, , 3 #### [facility] CLIA [id number] [address] [place] [address] [place] Chloride [Moles/Vol] 108 mmol/L High 98-107 [facility] Comment on above: Order Comment: Speci men Type: BLOOD SPECIMEN Ordering Facility: [facility] Address: [address] [place] [address] Performed By: #### 2 4321-2, , 3 #### [facility] CLIA [id number] [address] [place] [address] [place] CO2 [Moles/Vol] 21 mmol/L Low 22-30 [facility] Comment on above: Order Comment: Speci men Type: BLOOD SPECIMEN Ordering Facility: [facility] Address: [address] [place] [address] Performed By: #### 2 4321-2, , 3015-12 #### [facility] CLIA [id number] [address] [place] [address] [place] Creatinine [Mass/Vol] 0.48 mg/dL Low 0.58-0.96 [facility] Comment on above: Order Comment: Speci men Type: BLOOD SPECIMEN Ordering Facility: [facility] Address: [address] [place] [address] Performed By: #### 2 432-2, , 3015-12 #### [facility] CLIA [id number] [address] Creatinine and Glomerular filtration rate.predicted panel (S/P/Bld) 100 mL/min/1.73m??? Normal >=60 [facility] Comment on above: Order Comment: Speci men Type: BLOOD SPECIMEN Ordering Facility: [facility] Address: [address] [place] [address] Result Comment: Cecy mated Glomerular Filtration Rate (eGFR) is calculated using the 2020 CKD-EPI creatinine equation. This equation utilizes serum creatinine, sex, and age as parameters. The creatinine assay has traceable calibration to isotope dilution-mass spectrometry. Refer to KDIGO guidelines for clinical interpretation. In patients with unstable renal function, e.g. those with acute kidney injury, the eGFR may not accurately reflect actual GFR. Performed By: #### 2 4321-2, , 3 #### [facility] CLIA [id number] [address] [place] Glucose [Mass/Vol] 104 mg/dL High 74-99 [facility] Comment on above: Order Comment: Vicky montilla Type: BLOOD SPECIMEN Ordering Facility: [facility] Address: [address] [place] [address] Result Comment: The [place] [employer] (ADA) provides guidance for cutoff values for fasting glucose and random glucose. The ADA defines fasting as no caloric intake for at least 8 hours. Fasting plasma glucose results between 100 to 125 mg/dL indicate increased risk for diabetes (prediabetes). Fasting plasma glucose results greater than or equal to 126 mg/dL meet the criteria for diagnosis of diabetes. In the absence of unequivocal hyperglycemia, results should be confirmed by repeat testing. In a patient with classic symptoms of hyperglycemia or hyperglycemic crisis, random plasma glucose results greater than or equal to 200 mg/dL meet the criteria for diagnosis of diabetes. Reference: Standards of Medical Care in Diabetes 2016, [place] [employer]. Diabetes Care. 2016.39(Suppl 1). Performed By: #### 2 4321-2, , 3 #### [facility] CLIA [id number] [address] [place] [address] [place] Potassium [Moles/Vol] 4.3 mmol/L Normal 3.7-5.1 [facility] Comment on above: Order Comment: Vicky montilla Type: BLOOD SPECIMEN Ordering Facility: [facility] Address: [address] [place] [address] Performed By: #### 2 4321-2, , 3 #### [facility] CLIA [id number] [address] [place] [address] [place] Protein [Mass/Vol] 7.1 g/dL Normal 6.3-8.0 [facility] Comment on above: Order Comment: Vicky men Type: BLOOD SPECIMEN Ordering Facility: [facility] Address: [address] [place] [address] Performed By: #### 2 4321-2, , 3 #### [facility] CLIA [id number] [address] [place] [address] [place] Sodium [Moles/Vol] 143 mmol/L Normal 136-144 [facility] Comment on above: Order Comment: Speci men Type: BLOOD SPECIMEN Ordering Facility: [facility] Address: [address] [id number] Performed By: #### 2 4321-2, 35252-9, 3015-3 #### [facility] CLIA [id number] [address] STATES OF [facility] Urea nitrogen [Mass/Vol] 17 mg/dL Normal 7-21 [facility] Comment on above: Order Comment: Speci men Type: BLOOD SPECIMEN Ordering Facility: [facility] Address: [address] [id number] Performed By: #### 2 4321-2, 94363-8, 3015-3 #### [facility] CLIA [id number] [address] OF [facility] ECG COMPLETEon 12-14-2024 ECG COMPLETE Ventricular Rate : 1 07 BPM Atrial Rate : 107 BPM P-R Interval : 118 ms QRS Duration : 62 ms Q-T Interval : 322 ms QTC Calculation(Bazett) : 429 ms Calculated P [place] : 19 degrees Calculated R [place] : -19 degrees Calculated T [place] : 27 degrees SINUS TACHYCARDIA LOW VOLTAGE QRS NONSPECIFIC ST AND T WAVE ABNORMALITY ABNORMAL ECG WHEN COMPARED WITH ECG OF 03-Nov-2021 12:23, NONSPECIFIC T WAVE ABNORMALITY, IMPROVED IN LATERAL LEADS Confirmed by PINO DONALDSON MD ([id number]) on 02/23/2025 10:17:12 PM NAME : ELBA DIAZ PID : [id number] : 1950 Gender : Female Race : ORD : [id number] Procedure Date : Dec 14 2024 13:46:46 Edit Date : Feb 23 2025 22:17:13 Diagnosis: SINUS TACHYCARDIA LOW VOLTAGE QRS NONSPECIFIC ST AND T WAVE ABNORMALITY ABNORMAL ECG WHEN COMPARED WITH ECG OF 03-Nov-2021 12:23, NONSPECIFIC T WAVE ABNORMALITY, IMPROVED IN LATERAL LEADS Confirmed by PINO DONALDSON MD ([id number]) on 02/23/2025 10:17:12 PM Test Reason : Chest Pain Location : 4 : AKED EM Overread By : PINO DONALDSON MD Edited By : PINO DONALDSON MD Referred By : , Acquired by : VU,GAYATHRI [facility] ED NOTEon 12-14-2024 ED NOTE HNO ID: [id number] Author: KAILEE CRAIN, RN Service: Nursing Author Type: Registered Nurse Type: ED Notes Filed: 12/14/2024 22:50 Note Text: Pt woke up from sleeping. When I went in to turn of IV pump and assess her. She kept repeating, what a neat trick. When asking what trick she replied, all of this. Then would just repeat it. [facility] ED NOTE HNO ID: [id number] Author: KAILEE CRAIN, RN Service: Nursing Author Type: Registered Nurse Type: ED Notes Filed: 12/14/2024 19:28 Note Text: Pt in on mediator, bp cuff and pulse ox attached. Pts son at bedside [facility] ED NOTE HNO ID: [id number] Author: KAILEE CRAIN, RN Service: Nursing Author Type: Registered Nurse Type: ED Notes Filed: 12/14/2024 19:05 Note Text: Pt given a turkey sandwich. [facility] ED NOTE HNO ID: [id number] Author: ESTELLE PANIAGUA RN Service: Emergency Medicine Author Type: Registered Nurse Type: ED Notes Filed: 12/14/2024 13:52 Note Text: Patient arrives via ems from ems with c/o confusion [facility] ED NOTE HNO ID: [id number] Author: PAMELA BALLESTEROS, [place] Service: ? Author Type: Project Engineering Manager and Chiropractic Teacher Type: ED Notes Filed: 12/14/2024 13:47 Note Text: Bed: 22-ED Expected date: Expected time: Means of arrival: Comments: Lindsay 74yo confusion [facility] ED PROV NOTEon 12-14-2024 ED PROV NOTE HNO ID: [id number] Author: SAMEER FISCHER MD Service: Emergency Medicine Author Type: Physician Type: ED Provider Notes Filed: 12/15/2024 01:04 Note Text: ED CONTINUATION OF CARE NOTE Code Status: Prior Assumed care from: Dr. Patel Presentation / Findings / Interventions / Plan / Items to Follow Up: Briefly, patient is a 74-year-old female presenting to the emergency department for evaluation of altered mental status. Currently pending urinalysis. Likely admission for metabolic encephalopathy versus TIA. ED Course as of 12/15/24199 Sameer Fischer's Documentation [facility] Dec 15, 2024199 ED ATTENDING SIGN OUT NOTE Code Status: @NINAODESTATUS@ Presentation / Findings / Interventions / Plan / Items to Follow Up: awaiting inpatient bed Report Given to: Dr. Pemberton SIGNATURE: Sameer Fischer MD PATIENT NAME: Elba Diaz DATE: December 15, 2024 TIME: 2:00 AM PAGER/CONTACT #: Others' Documentation Branch Dec 14, 2024 162 Patient here for evaluation of an episode of confusion that started earlier today. About 9:00 or so the patient's son called her and she seemed to be a bit confused. She is confused to the day and the date and some other circumstances. He is at bedside with her now and he feels that she is almost 100% back to her normal baseline and puts her maybe at 90 to 95% returned. No syncope no loss of consciousness no loss of bowel or bladder control she does report urinary frequency urgency and dysuria consistent with her previous bladder infections. No nausea no vomiting no diarrhea no chest pain no shortness of breath. On examination vital signs slight tachycardia at 106 124/70 4 repeat blood pressure 134/76 pulse ox 97% on room air. She is afebrile well-developed nourished female no acute distress nontoxic appearance speaks in full sentences she is awake alert noted x 3 at this time. Her lungs are clear and equal heart regular rate rhythm without murmurs gallops rubs abdomen soft nontender without guarding rebound masses or distention. Medical decision making patient presents for evaluation of confusional state now resolved could have been hypoglycemic possibly a TIA metabolic infectious or other etiologies plan urinalysis baseline labs chest x-ray and CAT scan to address for these etiologies. [TR] ED Course User Index [TR] Robb Torres MD Clinical Impressions as of 12/15/24199 Complicated UTI (urinary tract infection) Altered mental status, unspecified altered mental status type Medical Decision Making Urinalysis returned, does show nitrates with bacteria, will treat for urinary tract infection with Rocephin. CT of the brain unremarkable. Spoke with the [facility] inpatient medical team, who accepted the patient for admission, asked that I add on Keppra level to evaluate for possible seizure-like activity. Less likely as her son said that she had no postictal period, only confusion, but do feel that this is on the differential, so added to her study down here in the emergency department. She remains hemodynamically stable, admitted to the regular nursing floor. Good Sargent Emergency Medicine Resident Physician, PGY-2 [facility] This note was created using [employer] dictation software. Every attempt was made to proofread, however you may find errors regardless of how insignificant they may be. They are purely unintentional and if there are any concerns regarding this dictation, please do not hesitate to call the dictating provider for clarification. SIGNATURE: Good Sargent DO PATIENT NAME: Elba Diaz DATE: December 14, 2024 TIME: 9:00 PM PAGER/CONTACT #: GOOD SARGENT 12/14/24 2215 SAMEER FISCHER 12/15/24 0104 Normal [facility] ED PROV NOTE HNO ID: [id number] Author: ROBB TORRES MD Service: Emergency Medicine Author Type: Resident Type: ED Provider Notes Filed: 12/15/2024 08:00 Note Text: Attestation signed by Robb Torres MD at 12/15/2024 8:00 AM Attending Note I evaluated the patient and personally participated in the holm components. I agree with the resident's findings and plan as documented and have discussed the case and management of the patient's care with the resident. ED Course as of 12/15/24 0759 Robb Torres's Documentation Sun Dec 14, 2024 1625 Patient here for evaluation of an episode of confusion that started earlier today. About 9:00 or so the patient's son called her and she seemed to be a bit confused. She is confused to the day and the date and some other circumstances. He is at bedside with her now and he feels that she is almost 100% back to her normal baseline and puts her maybe at 90 to 95% returned. No syncope no loss of consciousness no loss of bowel or bladder control she does report urinary frequency urgency and dysuria consistent with her previous bladder infections. No nausea no vomiting no diarrhea no chest pain no shortness of breath. On examination vital signs slight tachycardia at 106 124/70 4 repeat blood pressure 134/76 pulse ox 97% on room air. She is afebrile well-developed nourished female no acute distress nontoxic appearance speaks in full sentences she is awake alert noted x 3 at this time. Her lungs are clear and equal heart regular rate rhythm without murmurs gallops rubs abdomen soft nontender without guarding rebound masses or distention. Medical decision making patient presents for evaluation of confusional state now resolved could have been hypoglycemic possibly a TIA metabolic infectious or other etiologies plan urinalysis baseline labs chest x-ray and CAT scan to address for these etiologies. Others' Documentation SunDec 15, 2024 0200 ED ATTENDING SIGN OUT NOTE Code Status: @EDCODESTATUS@ Presentation / Findings / Interventions / Plan / Items to Follow Up: awaiting inpatient bed Report Given to: Dr. Pemberton SIGNATURE: NICO PizarroATICHRISTIANE NAME: Elba Diaz DATE: December 15, 2024MRN: [id number] TIME: 2:00 AMPAGER/CONTACT #: [JJ] ED Course User Index [BOY] Sameer Fischer MD Clinical Impressions as of 12/15/24 0759 Complicated UTI (urinary tract infection) Altered mental status, unspecified altered mental status type Signature: Robb Torres MD Date: 12/15/2024 Time: 7:59 AM ED Provider Note Patient Name: Elba Diaz : 1950 SERVICE DATE: 12/14/24 History Patient presents with: Mental Status Changes Patient is a 74-year-old female with history of aneurysm and hemiparesis of left side that presents today with concerns for cough. She states that she has had a cough for the past 2 to 3 days and she has felt under the weather. She denies any shortness of breath, chest pains or nausea/vomiting/diarrhe a. When questioned about mental status changes patient states that is just Aleta my aide. PAST MEDICAL HISTORY Diagnosis Date Aneurysm (HCC) cranial x2 (3mm) Rcere, L temp Colon polyp Endometriosis Epilepsy ([facility]) Fatigue Hemiparesis of left nondominant side as late effect of cerebral infarction ([facility]) 02/08/2021 Hypothyroid tsh> 150 off med Lung nodule Mild depression Polyneuropathy 07/2012 of legs by emg/nct Stroke ([facility]) 09/2019 right MCA PAST SURGICAL HISTORY Procedure Laterality Date TOTAL ABDOMINAL HYSTERECT W/WO RMVL TUBE OVARY BSO FAMILY HISTORY Problem Relation Age of Onset Lung Cancer Mother Lung Cancer Father Social History Tobacco Use Smoking status: Former Smokeless tobacco: Never Tobacco comments: quit 20 years ago Vaping Use Vaping status: Never Used Substance and Sexual Activity Alcohol use: Yes Comment: rarely Drug use: Never Sexual activity: Not on file ALLERGIES Allergen Reactions Codeine Other: See Comments nausea Review of Systems Constitutional: Positive for fatigue. Negative for activity change and fever. HENT: Positive for congestion. Negative for rhinorrhea. Eyes: Negative for pain and visual disturbance. Respiratory: Positive for cough. Negative for chest tightness and shortness of breath. Cardiovascular: Negative for chest pain and leg swelling. Gastrointestinal: Negative for abdominal pain, constipation, diarrhea, nausea and vomiting. Endocrine: Negative. Genitourinary: Negative for difficulty urinating, dysuria and urgency. Musculoskeletal: Positive for myalgias. Skin: Negative for color change and rash. Neurological: Negative for dizziness, numbness and headaches. Psychiatric/Behavioral: Negative for behavioral problems. The patient (more content not included)... Normal [facility] HISTORY PHYSICALon HISTORY PHYSICAL HNO ID: [id number] Author: ELIA CARRENO II, MD Service: Hospital Medicine Author Type: Physician Type: H&P Filed: 12/15/2024 01:36 Note Text: DEPARTMENT OF HOSPITAL MEDICINE HISTORY AND PHYSICAL EXAM SERVICE DATE: 12/15/2024 SERVICE TIME: 1:09 AM Primary Care Physician: No primary care provider on file. NIGHT AND WEEKEND COVERAGE: From 7am - 7pm, please call Sound attending After 7pm, please call cross cover pager #[phone] ==== ASSESSMENT AND PLAN: 1) UTI w/ AMS - Hx: CVA, seizure disorder Home meds: - aspirin 81 mg PO daily - atorvastatin 80 mg PO daily - clopidogrel 75 mg PO daily - levetiracetam 250 mg PO BID - NS 75 cc/hr - ceftriaxone 1 g IV daily - CBC in am - BMP in am 2) Depression - amitriptyline 50 mg PO at bedtime 3) Hypothyroidism - levothyroxine 125 mcg PO daily ==== ==== Chief Complaint: malaise, dysuria, confusion HPI: Elba Diaz is a 74 year old female with history of CVA, depression, hypothyroidism, seizure disorder and endometriosis who presents to the hospital due to reports of AMS from family. The patient is AANDOx2 (-place) and denies any complaints of confusion, though she endorses generalized malaise and dysuria over the last few days. She denies fevers, chills, body aches, wheezing, but admits to some coughing and mild shortness of breath. She denies chest pain, palpitations, nausea, vomiting, diarrhea or change in LE swelling (left is chronically swollen after a stroke). She has some lower abdominal pain. Labs revealed a normal CBC and Cr of 0.48 (baseline 1.00), otherwise normal BMP. CT Brain w/o contrast showed stable chronic changes. CXR 2 view showed no acute pathology. The ED gave 2.0L NS and started ceftriaxone. ####################### ####################### ####### ####################### ####################### ####### ####################### ####################### ####### OTHER HISTORY################ ###################### ####################### ####################### ####### ####################### ####################### ####### ####################### ####################### ####### ==== ROS: Negative except those noted in HPI above ==== PHYSICAL EXAM GENERAL: Alert, no distress, cooperative SKIN : Warm, dry intact, no open lesions, no rashes HEAD / SINUSES : Normocephalic, atraumatic, oral mucosa moist EYES : PERRLA, EOMI NECK : No jugulovenous distention, Supple, no adenopathy LUNGS : Lungs clear to auscultation, no wheezes, rhonchi, or rales CARDIAC : RRR, Normal S1 and S2; no rubs, murmurs, or gallops ABDOMEN : Abdomen soft, non - tender, BS normal, No masses or organomegaly mild lower abdominal tenderness EXTREMITIES : Extremities normal, no deformities, edema, clubbing or skin discoloration NEURO : Sensation grossly intact, Cranial nerves II - XII intact, moves all 4 extremities, speech was clear and coherent - no chronic pearce ==== All pertinent labs, imaging, medical Hx, Surgical Hx, Family Hx, Social Hx, home medications, and allergies reviewed. See below. ==== Medical History: CVA depression hypothyroidism seizure disorder endometriosis ==== Surgical History: procedure laterality date total abdominal hysterect w/wo rmvl tube ovary ==== Family History: Mother Lung Cancer Father Lung Cancer ==== Social History: Tobacco History: Smoking status: Former Smokeless tobacco: Never Tobacco comments: quit 20 years ago Vaping status: Never Used Vaping History: No history of file Alcohol and Substance Use: Alcohol use: Yes Comment: rarely Drug use: Never ==== HOME MEDICATIONS amitriptyline 50 mg PO at bedtime aspirin 81 mg PO daily atorvastatin 80 mg PO daily clopidogrel 75 mg PO daily docusate 100 mg PO daily ferrous sulfate 325 mg PO daily levetiracetam 250 mg PO BID levothyroxine 125 mcg PO daily pantoprazole 40 mg PO daily ropinirole 1 mg PO at bedtime rizatriptan 5 mg PO daily ==== ALLERGIES Codeine Other: See Comments ==== VITALS BP: 141/66 HR: 93 RR: 14 Temp: 98.0 ==== LABS Na: 143 K: 4.3 Cr: 0.48 (L) bicarb: 21 (L) glucose: 104 (H) A Ca: 9.9 total protein: 7.1 Alb: 3.8 (L) alk phos: 77 AST: 27 ALT: 17 total bili: 0.3 WBCs: 8.88 Hgb: 13.6 platele (more content not included)... Normal [facility] Urinalysis complete panel (U )on 12-14-2024 Bacteria LM.HPF (Urine sed) [#/Area] Few Abnormal None Seen [facility] Comment on above: Order Comment: Speci men Type: BLOOD SPECIMEN Ordering Facility: [facility] Address: [address] [place] [address] Performed By: #### 3 0471-7 #### [facility] CLIA [id number] [address] [place] [address] [place] Bilirubin Ql (U) Negative Normal Negative [facility] Comment on above: Order Comment: Speci men Type: BLOOD SPECIMEN Ordering Facility: [facility] Address: [address] [place] [address] Performed By: #### 3 0471-7 #### [facility] CLIA [id number] [address] [place] [address] [place] CALCIUM OXALATE CRYSTALS (UA) Few Abnormal None Seen [facility] Comment on above: Order Comment: Speci men Type: BLOOD SPECIMEN Ordering Facility: [facility] Address: [address] [place] [address] Performed By: #### 3 0471-7 #### [facility] CLIA [id number] [address] [place] [address] [place] Clarity (Unsp spec) Turbid Abnormal Clear [facility] Comment on above: Order Comment: Speci men Type: BLOOD SPECIMEN Ordering Facility: [facility] Address: [address] [place] [address] Performed By: #### 3 0471-7 #### [facility] CLIA [id number] [address] [place] [address] [place] Color (U) Yellow Normal yellow [facility] Comment on above: Order Comment: Speci men Type: BLOOD SPECIMEN Ordering Facility: [facility] Address: [address] [place] [address] Performed By: #### 3 0471-7 #### [facility] CLIA [id number] [address] [place] [address] [place] Epithelial cells LM.HPF (Urine sed) [#/Area] Few Normal [facility] Comment on above: Order Comment: Speci men Type: BLOOD SPECIMEN Ordering Facility: [facility] Address: [address] [place] [address] Performed By: #### 3 0471-7 #### [facility] CLIA [id number] [address] [place] [address] [place] Glucose Test strip (U) [Mass/Vol] Negative Normal Trace, Negative [facility] Comment on above: Order Comment: Speci men Type: BLOOD SPECIMEN Ordering Facility: [facility] Address: [address] [place] [address] Performed By: #### 3 0471-7 #### [facility] CLIA [id number] [address] [place] [address] [place] Hemoglobin Ql (U) 1+ Abnormal Negative, Trace [facility] Comment on above: Order Comment: Speci men Type: BLOOD SPECIMEN Ordering Facility: [facility] Address: [address] [place] [address] Performed By: #### 3 0471-7 #### [facility] CLIA [id number] [address] [place] [address] [place] Ketones Ql (U) 3+ Abnormal Negative, Trace [facility] Comment on above: Order Comment: Speci men Type: BLOOD SPECIMEN Ordering Facility: [facility] Address: [address] [place] [address] Performed By: #### 3 0471-7 #### [facility] CLIA [id number] [address] [place] [address] [place] Leukocyte esterase Test strip Ql (U) Negative Normal Negative, 25 Chong/uL [facility] Comment on above: Order Comment: Speci men Type: BLOOD SPECIMEN Ordering Facility: [facility] Address: [address] [place] [address] Performed By: #### 3 0471-7 #### [facility] CLIA [id number] [address] [place] [address] [place] Nitrite Ql (U) 2+ Abnormal Negative [facility] Comment on above: Order Comment: Speci men Type: BLOOD SPECIMEN Ordering Facility: [facility] Address: [address] [place] [address] Performed By: #### 3 0471-7 #### [facility] CLIA [id number] [address] [place] [address] [place] pH (U) 6.0 [pH] Normal 5.0-8.0 [facility] Comment on above: Order Comment: Speci men Type: BLOOD SPECIMEN Ordering Facility: [facility] Address: [address] [place] [address] Performed By: #### 3 0471-7 #### [facility] CLIA [id number] [address] [place] [address] [place] Protein (U) [Mass/Vol] 2+ Abnormal Trace , Negative [facility] Comment on above: Order Comment: Speci men Type: BLOOD SPECIMEN Ordering Facility: [facility] Address: [address] [place] [address] Performed By: #### 3 0471-7 #### [facility] CLIA [id number] [address] [place] [address] [place] RBC LM.HPF (Urine sed) [#/Area] 3-5 /HPF Abnormal 0-3 /HPF [facility] Comment on above: Order Comment: Speci men Type: BLOOD SPECIMEN Ordering Facility: [facility] Address: [address] [place] [address] Performed By: #### 3 0471-7 #### [facility] CLIA [id number] [address] [place] [address] [place] Specific gravity (U) [Rel density] >1.040 High 1.005-1.030 [facility] Comment on above: Order Comment: Speci men Type: BLOOD SPECIMEN Ordering Facility: [facility] Address: [address] [place] [address] Performed By: #### 3 0471-7 #### [facility] CLIA [id number] [address] [place] [address] [place] Urobilinogen Ql (U) Normal Normal Normal [facility] Comment on above: Order Comment: Speci men Type: BLOOD SPECIMEN Ordering Facility: [facility] Address: [address] [place] [address] Performed By: #### 3 0471-7 #### [facility] CLIA [id number] [address] [place] [address] [place] WBC LM.HPF (Urine sed) [#/Area] 0-5 /HPF Normal 0-5 /HPF [facility] Comment on above: Order Comment: Speci men Type: BLOOD SPECIMEN Ordering Facility: [facility] Address: [address] [place] [address] Performed By: #### 3 0471-7 #### [facility] CLIA [id number] [address] [place] [address] [place] XR CHEST 2V FRONTAL/LATon XR CHEST 2V FRONTAL/LAT * * *Final Repor t* * * DATE OF EXAM: Dec 14 2024 2:41PM [id number] - XR CHEST 2V FRONTAL/LAT / PROCEDURE REASON: Cough * * * * Physician Interpretation * * * * EXAMINATION: CHEST RADIOGRAPH (2 VIEW FRONTAL and LATERAL) CLINICAL HISTORY: Cough MQ: [id number] EXAM DATE/TIME: 12/14/2024 2:41 PM COMPARISON: 11/03/2021 RESULT: Lines, tubes, and devices: None. Lungs and pleura: No consolidation. No lung mass. No pleural effusion. No pneumothorax. Cardiomediastinal silhouette: Normal cardiomediastinal silhouette. Bones and soft tissues: Diminished bony density. IMPRESSION: No acute radiographic abnormality. Air And Water Tester: ALEXANDRO Transcribe Date/Time: Dec 14 2024 3:37P Dictated by : MARCUS RAMESH MD This examination was interpreted and the report reviewed and electronically signed by: MARCUS RAMESH MD on Dec 14 2024 3:39PM EST [id number] Normal [facility] levETIRAcetam SerPl-mCncon 0 12-14-2024 levETIRAcetam [Mass/Vol] ug/mL Low 12.0-46.0 [facility] Comment on above: Order Comment: Speci men Type: BLOOD SPECIMENOrdering Facility: [facility] Address: [address] [place] [address] Result Comment: This test is not suitable for patients receiving treatment with the drug brivaracetam (Briviact). The drug causes an interference that may lead to falsely elevated levetiracetam results. Result rechecked. Reference ranges and high/low indicator flags are provided as general guidelines only. The treating physician must determine appropriate target levels/dosing based on the specific clinical situation. This test was developed, and its performance characteristics determined by the [facility] Department of Pathology and Laboratory Medicine. It has not been cleared or approved by the FDA. The [facility] Department of Pathology and Laboratory Medicine is regulated under CLIA as qualified to perform high-complexity testing. This test is used for clinical purposes. It should not be regarded as investigational or for research. Performed By: #### [id number] ####[facility] [id number] [facility] [id number] [address] [place] Blood urea nitrogen (BUN)/cr eatinine ratioOrdered By: Robb Barnes on 11-27-2024 Urea nitrogen/Creatinine [Mass ratio] 36.1 mg/mg High 10-20 [facility] Carbon dioxide measurementOr dered By: Robb Barnes on 11-27-2024 CO2 [Moles/Vol] 23.0 mmol/L 21.0-32.0 [facility] Chloride measurementOrdered By: Robb Barnes on 11-27-2024 Chloride [Moles/Vol] 110 mmol/L High 98-107 [facility] Estimated glomerular filtrat ion rate (GFR) AmericanOrdered By: Robb Barnes on 11-27-2024 Estimated GFR (MDRD) Amer 166 mL/min >60 [facility] Comment on above: GFR Calc Glomerular filtration rate ( GFR) estimationOrdered By: Robb Barnes on 11-27-2024 Estimated GFR (MDRD) Non-Af Amer 138 mL/min >60 [facility] Comment on above: Non- GFR Calc GFR/1.73 sq M.predicted among non-blacks MDRD (S/P/Bld) [Vol rate/Area] 138 mL/min/{1.73_m2} >60 [facility] Comment on above: Non- GFR Calc Glucose measurementOrdered B y: Robb Barnes on 11-27-2024 Glucose [Mass/Vol] 103 mg/dL 74-106 [facility] Comment on above: Fasting Glucose resu lt from 100 to 125 mg/dL suggests IMPAIRED HOMEOSTASIS per A.D.A. criteria. Potassium measurementOrdered By: Robb Barnes on 11-27-2024 Potassium [Moles/Vol] 3.8 mmol/L 3.5-5.1 [facility] Serum anion gap measurementO rdered By: Robb Barnes on 11-27-2024 Anion gap [Moles/Vol] 7 mmol/L 5-15 [facility] Serum or plasma calcium claudette urement (mass/volume)Ordered By: Robb Barnes on 11-27-2024 Calcium [Mass/Vol] 9.6 mg/dL 8.5-10.1 [facility] Serum or plasma creatinine m easurement (mass/volume)Ordered By: Robb Barnes on 11-27-2024 Creatinine [Mass/Vol] 0.47 mg/dL Low 0.55-1.02 [facility] Comment on above: The validity of the calculated GFR & GFRAA in patients over 70 years has not been determined. Clinical correlation is essential. Serum or plasma urea nitroge n measurement (mass/volume)Ordered By: Robb Barnes on 11-27-2024 Urea nitrogen [Mass/Vol] 17 mg/dL 7-18 [facility] Sodium levelOrdered By: Vern Barnes on 11-27-2024 Sodium [Moles/Vol] 140 mmol/L 136-145 [facility] Valproate levelOrdered By: Darlin Barnes on 11-27-2024 Valproic Acid (Depakene) Level 60 ug/mL 50-100 [facility] Albumin to globulin ratioOrd ered By: Robb Barnes on 10-27-2024 Albumin/Globulin [Mass ratio] 0.8 {ratio} Low 0.9-2.4 [facility] Bilirubin, totalOrdered By: Robb Barnes on 10-27-2024 Bilirubin [Mass/Vol] 0.20 mg/dL 0.20-1.00 [facility] Comment on above: For patients on eltr ombopag therapy, use of Dimension Letts TBIL is not recommended. Blood urea nitrogen (BUN)/cr eatinine ratioOrdered By: Robb Barnes on 10-27-2024 Urea nitrogen/Creatinine [Mass ratio] 51.7 mg/mg High 10-20 [facility] Carbon dioxide measurementOr dered By: Robb Barnes on 10-27-2024 CO2 [Moles/Vol] 22.0 mmol/L 21.0-32.0 [facility] Chloride measurementOrdered By: Robb Barnes on 10-27-2024 Chloride [Moles/Vol] 113 mmol/L High 98-107 [facility] Erythrocyte distribution wid th (RBC) [Ratio]Ordered By: Robb Barnes on 10-27-2024 Erythrocyte distribution width (RBC) [Entitic vol] 58.6 fL High 35.1-43.9 [facility] Erythrocyte distribution wid th ratioOrdered By: Robb Barnes on 10-27-2024 Erythrocyte distribution width (RBC) [Ratio] 14.3 % 11.6-14.6 [facility] Estimated glomerular filtrat ion rate (GFR) AmericanOrdered By: Robb Barnes on 10-27-2024 Estimated GFR (MDRD) Amer 161 mL/min >60 [facility] Comment on above: GFR Calc Glomerular filtration rate ( GFR) estimationOrdered By: Robb Barnes on 10-27-2024 Estimated GFR (MDRD) Non-Af Amer 133 mL/min >60 [facility] Comment on above: Non- GFR Calc Glucose measurementOrdered B y: Robb Barnes on 10-27-2024 Glucose [Mass/Vol] 93 mg/dL 74-106 [facility] Hematocrit Auto (Bld) [Volum e fraction]Ordered By: Robb Barnes on 10-27-2024 Hematocrit (Bld) [Volume fraction] 34.7 % Low 37-47 [facility] Hemoglobin measurementOrdere d By: Robb Barnes on 10-27-2024 Hemoglobin (Bld) [Mass/Vol] 10.8 g/dL Low 12.0-15.0 [facility] High density lipoprotein (HD L) measurementOrdered By: Robb Barnes on 10-27-2024 Cholesterol in HDL [Mass/Vol] 48 mg/dL >40 [facility] Comment on above: The drugs N-Acetylcy steine and Metamizole may falsely depress this assay. Reference Range HDL <40 mg/dL Low HDL Cholesterol HDL >or= 60 mg/dL High HDL Cholesterol Iron (Unsp spec) [Mass/Mass] Ordered By: Robb Barnes on 10-27-2024 Iron [Mass/Vol] 47 ug/dL Low 50-170 [facility] - Chemistry and C hemistry - challengeOrdered By: Robb Barnes on 10-27-2024 AST [Catalytic activity/Vol] 20 U/L 15-37 [facility] Low density lipoprotein (LDL ) cholesterol measurementOrdered By: Robb Barnes on 10-27-2024 Cholesterol in LDL [Mass/Vol] 64 mg/dL 0-130 [facility] MCV (mean corpuscular volume ) determinationOrdered By: Robb Barnes on 10-27-2024 MCV (RBC) [Entitic vol] 109.5 fL High 81-99 [facility] Magnesium measurementOrdered By: Robb Barnes on 10-27-2024 Magnesium [Mass/Vol] 2.2 mg/dL 1.6-2.6 [facility] Mean corpuscular hemoglobin (MCH) determinationOrdered By: Robb Barnes on 10-27-2024 MCH (RBC) [Entitic mass] 34.1 pg High 27.0-32.0 [facility] Mean corpuscular hemoglobin concentration (MCHC) determinationOrdered By: Robb Barnes on 10-27-2024 MCHC (RBC) [Mass/Vol] 31.1 g/dL Low 32-36 [facility] Mean platelet volume determi nationOrdered By: Robb Barnes on 10-27-2024 Platelet mean volume (Bld) [Entitic vol] 9.2 fL 6.2-12.0 [facility] Platelet countOrdered By: Ramila Barnes on 10-27-2024 Platelets (Bld) [#/Vol] 128 10*3/uL Low 150-450 [facility] Potassium measurementOrdered By: Robb Barnes on 10-27-2024 Potassium [Moles/Vol] 4.1 mmol/L 3.5-5.1 [facility] RBC Auto (Bld) [#/Vol]Ordere d By: Robb Barnes on 10-27-2024 RBC (Bld) [#/Vol] 3.17 10*6/uL Low 4.2-5.4 [facility] Serum anion gap measurementO rdered By: Robb Barnes on 10-27-2024 Anion gap [Moles/Vol] 6 mmol/L 5-15 [facility] Serum globulin measurementOr dered By: Robb Barnes on 10-27-2024 Globulin (S) [Mass/Vol] 3.7 g/dL 2.2-4.2 [facility] Serum or plasma alanine timmons otransferase (ALT) measurementOrdered By: Robb Barnes on 10-27-2024 ALT [Catalytic activity/Vol] 15 U/L 13-56 [facility] Serum or plasma albumin claudette urement (mass/volume)Ordered By: Robb Barnes on 10-27-2024 Albumin [Mass/Vol] 2.8 g/dL Low 3.2-5.0 [facility] Serum or plasma alkaline karson sphatase measurementOrdered By: Robb Barnes on 10-27-2024 ALP [Catalytic activity/Vol] 52 U/L 45-117 [facility] Serum or plasma calcium claudette urement (mass/volume)Ordered By: Robb Barnes on 10-27-2024 Calcium [Mass/Vol] 9.3 mg/dL 8.5-10.1 [facility] Serum or plasma cholesterol measurement (mass/volume)Ordered By: Robb Barnes on 10-27-2024 Cholesterol [Mass/Vol] 135 mg/dL <200 [facility] Comment on above: <200 mg/dL Desirable 200-240 mg/dL Borderline >240 mg/dL High Risk Serum or plasma creatinine m easurement (mass/volume)Ordered By: Robb Barnes on 10-27-2024 Creatinine [Mass/Vol] 0.48 mg/dL Low 0.55-1.02 [facility] Comment on above: The validity of the calculated GFR & GFRAA in patients over 70 years has not been determined. Clinical correlation is essential. Serum or plasma urea nitroge n measurement (mass/volume)Ordered By: Robb Barnes on 10-27-2024 Urea nitrogen [Mass/Vol] 25 mg/dL High 7-18 [facility] Sodium levelOrdered By: Vern Barnes on 10-27-2024 Sodium [Moles/Vol] 141 mmol/L 136-145 [facility] Total proteinOrdered By: Renan Barnes on 10-27-2024 Protein [Mass/Vol] 6.5 g/dL 6.4-8.2 [facility] Triglycerides measurementOrd ered By: Robb Barnes on 10-27-2024 Triglyceride [Mass/Vol] 116 mg/dL <199 [facility] Comment on above: The drugs N-Acetylcy steine and Metamizole may falsely depress this assay.Serum Triglycerides Reference Interval Normal <150 mg/dL Borderline high 150 - 199 mg/dL High 200 - 499 mg/dL Very High > or = 500 mg/dL Very low density lipoprotein (VLDL) cholesterol measurementOrdered By: Robb Barnes on 10-27-2024 VLDL Cholesterol 23 mg/dL 5-40 [facility] White blood cell (WBC) count Ordered By: Robb Barnes on 10-27-2024 WBC (Bld) [#/Vol] 5.6 10*3/uL 4.4-11.0 [facility] Serum or plasma thyroid stim ulating hormone (TSH) measurement (units/volume)Ordered By: Robb Barnes on 12-24-2023 TSH Qn 0.30 uIU/mL 0.358-3.74 [facility] Serum or plasma thyroxine (T 4) measurement (mass/volume)Ordered By: Robb Barnes on 11-13-2023 T4 [Mass/Vol] 9.1 ug/dL 4.8-13.9 [facility] Serum or plasma triiodothyro nine measurement by immunoassay (mass/volume)Ordered By: Robb Barnes on 11-13-2023 T3 IA [Mass/Vol] 0.82 ng/mL 0.6-1.81 [facility] Basophil percentageOrdered B y: Robb Barnes on 11-08-2023 Bilirubin [Mass/Vol] 0.30 mg/dL 0.20-1.00 [facility] Comment on above: For patients on eltr ombopag therapy, use of Dimension Letts TBIL is not recommended. Chloride [Moles/Vol] 108 mmol/L 98-107 [facility] Glucose [Mass/Vol] 94 mg/dL 74-106 [facility] Hemoglobin (Bld) [Mass/Vol] 12.0 g/dL 12.0-15.0 [facility] Potassium [Moles/Vol] 4.0 mmol/L 3.5-5.1 [facility] Protein [Mass/Vol] 6.6 g/dL 6.4-8.2 [facility] Sodium [Moles/Vol] 139 mmol/L 136-145 [facility] WBC (Bld) [#/Vol] 6.2 10*3/uL 4.4-11.0 [facility] Determination of erythrocyte mean corpuscular volume (MCV)Ordered By: Robb Barnes on 11-08-2023 MCV (RBC) [Entitic vol] 102.0 fL 81-99 [facility] Erythrocyte distribution wid th ratioOrdered By: Robb Barnes on 11-08-2023 Erythrocyte distribution width (RBC) [Ratio] 11.8 % 11.6-14.6 [facility] Erythrocyte distribution wid th standard deviationOrdered By: Robb Barnes on 11-08-2023 Erythrocyte distribution width (RBC) [Entitic vol] 44.2 fL 35.1-43.9 [facility] Erythrocyte sedimentation ra teOrdered By: Robb Barnes on 11-08-2023 ESR (Bld) [Velocity] 6 mm/h 0-30 [facility] Hematocrit Auto (Bld) [Volum e fraction]Ordered By: Robb Barnes on 11-08-2023 Hematocrit (Bld) [Volume fraction] 36.4 % 37-47 [facility] - Chemistry and C hemistry - challengeOrdered By: Robb Barnes on 11-08-2023 Albumin/Globulin [Mass ratio] 0.8 {ratio} 0.9-2.4 [facility] ALP [Catalytic activity/Vol] 71 U/L 45-117 [facility] ALT [Catalytic activity/Vol] 14 U/L 13-56 [facility] CO2 [Moles/Vol] 28.0 mmol/L 21.0-32.0 [facility] Globulin (S) [Mass/Vol] 3.7 g/dL 2.2-4.2 [facility] Urea nitrogen/Creatinine [Mass ratio] 29.9 mg/mg 10-20 [facility] - Hematology and Cell countsOrdered By: Robb Barnes on 11-08-2023 MCH (RBC) [Entitic mass] 33.6 pg 27.0-32.0 [facility] MCHC (RBC) [Mass/Vol] 33.0 g/dL 32-36 [facility] Platelets (Bld) [#/Vol] 150 10*3/uL 150-450 [facility] No Panel InformationOrdered By: Robb Barnes on 11-08-2023 Estimated GFR (MDRD) Amer 95 mL/min >60 [facility] Comment on above: GFR Calc Estimated GFR (MDRD) Non-Af Amer 78 mL/min >60 [facility] Comment on above: Non- GFR Calc Platelet mean volume Marcelo-Ec ker (Bld) [Entitic vol]Ordered By: Robb Barnes on 11-08-2023 Platelet mean volume (Bld) [Entitic vol] 9.1 fL 6.2-12.0 [facility] RBC Auto (Bld) [#/Vol]Ordere d By: Robb Barnes on 11-08-2023 RBC (Bld) [#/Vol] 3.57 10*6/uL 4.2-5.4 [facility] Serum or plasma calcium claudette urement (mass/volume)Ordered By: Robb Barnes on 11-08-2023 Calcium [Mass/Vol] 9.3 mg/dL 8.5-10.1 [facility] Serum or plasma creatinine m easurement (mass/volume)Ordered By: Robb Barnes on 11-08-2023 Creatinine [Mass/Vol] 0.77 mg/dL 0.55-1.02 [facility] Comment on above: The validity of the calculated GFR & GFRAA in patients over 70 years has not been determined. Clinical correlation is essential. Serum or plasma thyroid stim ulating hormone (TSH) measurement (units/volume)Ordered By: Robb Barnes on 11-08-2023 TSH Qn 9.02 uIU/mL 0.358-3.74 [facility] Serum or plasma urea nitroge n measurement (mass/volume)Ordered By: Robb Barnes on 11-08-2023 Urea nitrogen [Mass/Vol] 23 mg/dL 7-18 [facility] Thin prep Papanicolaou smear with manual screeningOrdered By: Robb Barnes on 11-08-2023 Thin prep Papanicolaou smear with manual screening 2.9 g/dL 3.2-5.0 [facility] Thin prep Papanicolaou smear with manual screening 13 U/L 15-37 [facility] Thin prep Papanicolaou smear with manual screening 3 5-15 [facility] - Chemistry and C hemistry - challengeOrdered By: Robb Barnes on 08-24-2023 T4 [Mass/Vol] 8.5 ug/dL 4.8-13.9 [facility] No Panel InformationOrdered By: Robb Barnes on 08-24-2023 Thyroid Stimulating Hormone (TSH) 1.26 uIU/mL 0.358-3.74 [facility] Total Triiodothyronine 0.94 ng/mL 0.6-1.81 [facility] Basophil percentageOrdered B y: Robb Barnes on 08-03-2023 Ammonia (P) [Moles/Vol] 46.0 umol/L 11-32 [facility] Iron measurement (mass/mass) Ordered By: Robb Barnes on 08-03-2023 Iron (Unsp spec) [Mass/Mass] 99 ug/dL 50-170 [facility] - Chemistry and C hemistry - challengeOrdered By: Robb Barnes on 08-03-2023 Magnesium [Mass/Vol] 2.0 mg/dL 1.6-2.6 [facility] Transferrin [Mass/Vol] 179 mg/dL 192-364 [facility] Comment on above: Performed at: [address] [id number] Director: Angel Franklin PhD, Phone: [phone] No Panel InformationOrdered By: Robb Barnes on 08-03-2023 Total Iron Binding Capacity 227 ug/dL 250-450 [facility] Valproic Acid (Depakene) Level 74 ug/mL 50-100 [facility] Serum or plasma ferritin dionisio surement (mass/volume)Ordered By: Robb Barnes on 08-03-2023 Ferritin [Mass/Vol] 126 ng/mL 8-252 [facility] Serum or plasma iron saturat ion measurement (mass fraction)Ordered By: Robb Barnes on 08-03-2023 Iron saturation [Mass fraction] 43.6 % 15.0-55.0 [facility] No Panel InformationOrdered By: Robb Barnes on 06-07-2023 Thyroid Stimulating Hormone (TSH) 2.42 uIU/mL 0.358-3.74 [facility] Basophil percentageOrdered B y: Robb Barnes on 03-20-2023 Bilirubin [Mass/Vol] 0.30 mg/dL 0.20-1.00 [facility] Comment on above: For patients on eltr ombopag therapy, use of Dimension Letts TBIL is not recommended. Chloride [Moles/Vol] 112 mmol/L 98-107 [facility] Cholesterol [Mass/Vol] 128 mg/dL <200 [facility] Comment on above: <200 mg/dL Desirable 200-240 mg/dL Borderline >240 mg/dL High Risk Glucose [Mass/Vol] 76 mg/dL 74-106 [facility] Potassium [Moles/Vol] 4.3 mmol/L 3.5-5.1 [facility] Protein [Mass/Vol] 5.9 g/dL 6.4-8.2 [facility] Sodium [Moles/Vol] 143 mmol/L 136-145 [facility] Triglyceride [Mass/Vol] 98 mg/dL <199 [facility] Comment on above: The drugs N-Acetylcy steine and Metamizole may falsely depress this assay.Serum Triglycerides Reference Interval Normal <150 mg/dL Borderline high 150 - 199 mg/dL High 200 - 499 mg/dL Very High > or = 500 mg/dL WBC (Bld) [#/Vol] 5.9 10*3/uL 4.4-11.0 [facility] Blood erythrocytes count (nu mber/volume)Ordered By: Robb Barnes on 03-20-2023 RBC (Bld) [#/Vol] 3.49 10*6/uL 4.2-5.4 [facility] Blood hemoglobin measurement (mass/volume)Ordered By: Robb Barnes on 03-20-2023 Hemoglobin (Bld) [Mass/Vol] 12.0 g/dL 12.0-15.0 [facility] Blood platelet mean volumeOr dered By: Robb Barnes on 03-20-2023 Platelet mean volume (Bld) [Entitic vol] 9.1 fL 6.2-12.0 [facility] Determination of erythrocyte mean corpuscular volume (MCV)Ordered By: Robb Barnes on 03-20-2023 MCV (RBC) [Entitic vol] 104.3 fL 81-99 [facility] Erythrocyte sedimentation ra teOrdered By: Robb Barnes on 03-20-2023 ESR (Bld) [Velocity] 6 mm/h 0-30 [facility] Hematocrit Auto (Bld) [Volum e fraction]Ordered By: Robb Barnes on 03-20-2023 Hematocrit (Bld) [Volume fraction] 36.4 % 37-47 [facility] - Chemistry and C hemistry - challengeOrdered By: Robb Barnes on 03-20-2023 ALP [Catalytic activity/Vol] 63 U/L 45-117 [facility] ALT [Catalytic activity/Vol] 13 U/L 13-56 [facility] CO2 [Moles/Vol] 26.0 mmol/L 21.0-32.0 [facility] Globulin (S) [Mass/Vol] 3.5 g/dL 2.2-4.2 [facility] Urea nitrogen/Creatinine [Mass ratio] 29.9 mg/mg 10-20 [facility] - Hematology and Cell countsOrdered By: Robb Barnes on 03-20-2023 Erythrocyte distribution width (RBC) [Entitic vol] 46.9 fL 35.1-43.9 [facility] Erythrocyte distribution width (RBC) [Ratio] 12.4 % 11.6-14.6 [facility] MCH (RBC) [Entitic mass] 34.4 pg 27.0-32.0 [facility] MCHC Auto (RBC) [Mass/Vol]Or dered By: Robb Barnes on 03-20-2023 MCHC (RBC) [Mass/Vol] 33.0 g/dL 32-36 [facility] No Panel InformationOrdered By: Robb Barnes on 03-20-2023 Estimated GFR (MDRD) Amer 95 mL/min >60 [facility] Comment on above: GFR Calc Estimated GFR (MDRD) Non-Af Amer 79 mL/min >60 [facility] Comment on above: Non- GFR Calc Thyroid Stimulating Hormone (TSH) 4.07 uIU/mL 0.358-3.74 [facility] Vitamin D 25-Hydroxy 73.1 ng/mL [facility] Comment on above: Vitamin D 25(OH) Sta tus Range Deficiency <20 ng/mL (50nmol/L) Insufficiency 20 - 30 ng/mL (50 - 75 nmol/L) Sufficiency 30 - 100 ng/mL (75 - 250 nmol/L) Toxicity >100 ng/mL (>250 nmol/L) Platelets bldOrdered By: Renan Barnes on 03-20-2023 Platelets (Bld) [#/Vol] 108 10*3/uL 150-450 [facility] Serum or plasma albumin claudette urement (mass/volume)Ordered By: Robb Barnes on 03-20-2023 Albumin [Mass/Vol] 2.4 g/dL 3.2-5.0 [facility] Serum or plasma albumin/glob ulin mass ratioOrdered By: Robb Barnes on 03-20-2023 Albumin/Globulin [Mass ratio] 0.7 {ratio} 0.9-2.4 [facility] Serum or plasma calcium claudette urement (mass/volume)Ordered By: Robb Barnes on 03-20-2023 Calcium [Mass/Vol] 8.7 mg/dL 8.5-10.1 [facility] Serum or plasma cholesterol in HDL measurement (mass/volume)Ordered By: Robb Barnes on 03-20-2023 Cholesterol in HDL [Mass/Vol] 36 mg/dL >40 [facility] Comment on above: The drugs N-Acetylcy steine and Metamizole may falsely depress this assay. Reference Range HDL <40 mg/dL Low HDL Cholesterol HDL >or= 60 mg/dL High HDL Cholesterol Serum or plasma cholesterol in VLDL measurement (mass/volume)Ordered By: Robb Barnes on 03-20-2023 Cholesterol in VLDL [Mass/Vol] 20 mg/dL 5-40 [facility] Serum or plasma creatinine m easurement (mass/volume)Ordered By: Robb Barnes on 03-20-2023 Creatinine [Mass/Vol] 0.77 mg/dL 0.55-1.02 [facility] Comment on above: The validity of the calculated GFR & GFRAA in patients over 70 years has not been determined. Clinical correlation is essential. Serum or plasma low density lipoprotein (LDL) cholesterol measurement (mass/volume)Ordered By: Robb Barnes on 03-20-2023 Cholesterol in LDL [Mass/Vol] 72 mg/dL 0-130 [facility] Serum or plasma urea nitroge n measurement (mass/volume)Ordered By: Robb Barnes on 03-20-2023 Urea nitrogen [Mass/Vol] 23 mg/dL 7-18 [facility] Thin prep Papanicolaou smear with manual screeningOrdered By: Robb Barnes on 03-20-2023 Thin prep Papanicolaou smear with manual screening 17 U/L 15-37 [facility] Thin prep Papanicolaou smear with manual screening 5 5-15 [facility] Basophil percentageOrdered B y: Robb Barnes on 01-04-2023 Chloride [Moles/Vol] 111 mmol/L 98-107 [facility] Cholesterol [Mass/Vol] 124 mg/dL <200 [facility] Comment on above: <200 mg/dL Desirable 200-240 mg/dL Borderline >240 mg/dL High Risk Glucose [Mass/Vol] 86 mg/dL 74-106 [facility] Potassium [Moles/Vol] 3.8 mmol/L 3.5-5.1 [facility] Sodium [Moles/Vol] 143 mmol/L 136-145 [facility] Triglyceride [Mass/Vol] 166 mg/dL <199 [facility] Comment on above: The drugs N-Acetylcy steine and Metamizole may falsely depress this assay.Serum Triglycerides Reference Interval Normal <150 mg/dL Borderline high 150 - 199 mg/dL High 200 - 499 mg/dL Very High > or = 500 mg/dL WBC (Bld) [#/Vol] 5.9 10*3/uL 4.4-11.0 [facility] Blood erythrocytes count (nu mber/volume)Ordered By: Robb Barnes on 01-04-2023 RBC (Bld) [#/Vol] 3.20 10*6/uL 4.2-5.4 [facility] Blood hemoglobin measurement (mass/volume)Ordered By: Robb Barnes on 01-04-2023 Hemoglobin (Bld) [Mass/Vol] 10.8 g/dL 12.0-15.0 [facility] Blood platelet mean volumeOr dered By: Robb Barnes on 01-04-2023 Platelet mean volume (Bld) [Entitic vol] 9.0 fL 6.2-12.0 [facility] Determination of erythrocyte mean corpuscular volume (MCV)Ordered By: Robb Barnes on 01-04-2023 MCV (RBC) [Entitic vol] 103.4 fL 81-99 [facility] Hematocrit Auto (Bld) [Volum e fraction]Ordered By: Robb Barnes on 01-04-2023 Hematocrit (Bld) [Volume fraction] 33.1 % 37-47 [facility] Laboratory - Chemistry and C hemistry - challengeOrdered By: Robb Barnes on 01-04-2023 CO2 [Moles/Vol] 25.0 mmol/L 21.0-32.0 [facility] Magnesium [Mass/Vol] 2.0 mg/dL 1.6-2.6 [facility] Urea nitrogen/Creatinine [Mass ratio] 30.1 mg/mg 10-20 [facility] Laboratory - Hematology and Cell countsOrdered By: Robb Barnes on 01-04-2023 Erythrocyte distribution width (RBC) [Entitic vol] 45.2 fL 35.1-43.9 [facility] Erythrocyte distribution width (RBC) [Ratio] 11.9 % 11.6-14.6 [facility] MCH (RBC) [Entitic mass] 33.8 pg 27.0-32.0 [facility] MCHC Auto (RBC) [Mass/Vol]Or dered By: Robb Barnes on 01-04-2023 MCHC (RBC) [Mass/Vol] 32.6 g/dL 32-36 [facility] No Panel InformationOrdered By: Robb Barnes on 01-04-2023 Estimated GFR (MDRD) Amer 119 mL/min >60 [facility] Comment on above: GFR Calc Estimated GFR (MDRD) Non-Af Amer 99 mL/min >60 [facility] Comment on above: Non- GFR Calc Thyroid Stimulating Hormone (TSH) 0.32 uIU/mL 0.358-3.74 [facility] Platelets bldOrdered By: Renan Barnes on 01-04-2023 Platelets (Bld) [#/Vol] 141 10*3/uL 150-450 [facility] Serum or plasma calcium claudette urement (mass/volume)Ordered By: Robb Barnes on 01-04-2023 Calcium [Mass/Vol] 9.0 mg/dL 8.5-10.1 [facility] Serum or plasma cholesterol in HDL measurement (mass/volume)Ordered By: Robb Barnes on 01-04-2023 Cholesterol in HDL [Mass/Vol] 32 mg/dL >40 [facility] Comment on above: The drugs N-Acetylcy steine and Metamizole may falsely depress this assay. Reference Range HDL <40 mg/dL Low HDL Cholesterol HDL >or= 60 mg/dL High HDL Cholesterol Serum or plasma cholesterol in VLDL measurement (mass/volume)Ordered By: Robb Barnes on 01-04-2023 Cholesterol in VLDL [Mass/Vol] 33 mg/dL 5-40 [facility] Serum or plasma creatinine m easurement (mass/volume)Ordered By: Robb Barnes on 01-04-2023 Creatinine [Mass/Vol] 0.63 mg/dL 0.55-1.02 [facility] Comment on above: The validity of the calculated GFR & GFRAA in patients over 70 years has not been determined. Clinical correlation is essential. Serum or plasma low density lipoprotein (LDL) cholesterol measurement (mass/volume)Ordered By: Robb Barnes on 01-04-2023 Cholesterol in LDL [Mass/Vol] 59 mg/dL 0-130 [facility] Serum or plasma urea nitroge n measurement (mass/volume)Ordered By: Robb Barnes on 01-04-2023 Urea nitrogen [Mass/Vol] 19 mg/dL 7-18 [facility] Thin prep Papanicolaou smear with manual screeningOrdered By: Robb Barnes on 01-04-2023 Thin prep Papanicolaou smear with manual screening 7 5-15 [facility] No Panel Informationon 09-13 Valproic Acid (Depakene) Level 76 ug/mL 50-100 [facility] Work Phone: Basophil percentageon 2021 Bilirubin [Mass/Vol] 0.20 mg/dL 0.20-1.00 [facility] Work Phone: Comment on above: For patients on eltr ombopag therapy, use of Dimension Letts TBIL is not recommended. Chloride [Moles/Vol] 106 mmol/L 98-107 [facility] Work Phone: Glucose [Mass/Vol] 66 mg/dL 74-106 [facility] Work Phone: Potassium [Moles/Vol] 3.8 mmol/L 3.5-5.1 [facility] Work Phone: [phone] Protein [Mass/Vol] 5.7 g/dL 6.4-8.2 [facility] Work Phone: Sodium [Moles/Vol] 140 mmol/L 136-145 [facility] Work Phone: WBC (Bld) [#/Vol] 8.8 10*3/uL 4.4-11.0 [facility] Work Phone: Blood erythrocytes count (nu mber/volume)on 08-03-2022 RBC (Bld) [#/Vol] 3.09 10*6/uL 4.2-5.4 [facility] Work Phone: Blood hemoglobin measurement (mass/volume)on 08-03-2022 Hemoglobin (Bld) [Mass/Vol] 10.5 g/dL 12.0-15.0 [facility] Work Phone: [phone] Blood platelet mean volumeon 08-03-2022 Platelet mean volume (Bld) [Entitic vol] 8.1 fL 6.2-12.0 [facility] Work Phone: Determination of erythrocyte mean corpuscular volume (MCV)on 08-03-2022 MCV (RBC) [Entitic vol] 106.5 fL 81-99 [facility] Work Phone: Direct bilirubinon Bilirubin.direct [Mass/Vol] 0.05 mg/dL 0.00-0.30 [facility] Work Phone: Hematocrit Auto (Bld) [Volum e fraction]on 08-03-2022 Hematocrit (Bld) [Volume fraction] 32.9 % 37-47 [facility] Work Phone: INR in Blood by Coagulation assayon 08-03-2022 INR Coag (Bld) [Relative time] 1.0 {INR} [facility] Work Phone: Laboratory - Chemistry and C hemistry - challengeon 08-03-2022 ALP [Catalytic activity/Vol] 59 U/L 45-117 [facility] Work Phone: ALT [Catalytic activity/Vol] 13 U/L 13-56 [facility] Work Phone: CO2 [Moles/Vol] 28.0 mmol/L 21.0-32.0 [facility] Work Phone: Globulin (S) [Mass/Vol] 3.8 g/dL 2.2-4.2 [facility] Work Phone: Urea nitrogen/Creatinine [Mass ratio] 31.8 mg/mg 10-20 [facility] Work Phone: Laboratory - Coagulationon 1 aPTT Coag (Bld) [Time] 27.0 s 24.1-36.2 Wo gianni [facility] Work Phone: PT Coag (PPP) [Time] 12.7 s 11.7-14.[address] [facility] [address] [facility] Work Phone: Laboratory - Hematology and Cell countson 08-03-2022 Erythrocyte distribution width (RBC) [Entitic vol] 49.4 fL 35.1-43.9 [facility] Work Phone: Erythrocyte distribution width (RBC) [Ratio] 12.9 % 11.6-14.6 [facility] Work Phone: MCH (RBC) [Entitic mass] 34.0 pg 27.0-32.0 [facility] Work Phone: [phone] MCHC Auto (RBC) [Mass/Vol]on 08-03-2022 MCHC (RBC) [Mass/Vol] 31.9 g/dL 32-36 [facility] Work Phone: No Panel Informationon 08-03 Estimated GFR (MDRD) Amer 145 mL/min >60 [facility] Work Phone: Comment on above: GFR Calc Estimated GFR (MDRD) Non-Af Amer 120 mL/min >60 [facility] Work Phone: Comment on above: Non- GFR Calc Platelets bldon 08-03-2022 Platelets (Bld) [#/Vol] 122 10*3/uL 150-450 [facility] Work Phone: Serum or plasma albumin claudette urement (mass/volume)on 08-03-2022 Albumin [Mass/Vol] 1.9 g/dL 3.2-5.0 [facility] Work Phone: [phone] Serum or plasma calcium claudette urement (mass/volume)on 08-03-2022 Calcium [Mass/Vol] 8.7 mg/dL 8.5-10.1 [facility] Work Phone: [phone] Serum or plasma creatinine m easurement (mass/volume)on 08-03-2022 Creatinine [Mass/Vol] 0.54 mg/dL 0.55-1.02 [facility] Work Phone: Comment on above: The validity of the calculated GFR & GFRAA in patients over 70 years has not been determined. Clinical correlation is essential. Serum or plasma urea nitroge n measurement (mass/volume)on 08-03-2022 Urea nitrogen [Mass/Vol] 17 mg/dL 7-18 [facility] Work Phone: Thin prep Papanicolaou smear with manual screeningon 08-03-2022 Thin prep Papanicolaou smear with manual screening 18 U/L 15-37 [facility] Work Phone: Thin prep Papanicolaou smear with manual screening 6 5-15 [facility] Work Phone: Basophil percentageon 2021 Bilirubin [Mass/Vol] 0.20 mg/dL 0.20-1.00 [facility] Work Phone: Comment on above: For patients on eltr ombopag therapy, use of Dimension Letts TBIL is not recommended. Chloride [Moles/Vol] 111 mmol/L 98-107 [facility] Work Phone: Glucose [Mass/Vol] 81 mg/dL 74-106 [facility] Work Phone: [phone] Potassium [Moles/Vol] 3.9 mmol/L 3.5-5.1 [facility] Work Phone: Protein [Mass/Vol] 5.6 g/dL 6.4-8.2 [facility] Work Phone: Sodium [Moles/Vol] 143 mmol/L 136-145 [facility] Work Phone: WBC (Bld) [#/Vol] 8.0 10*3/uL 4.4-11.0 [facility] Work Phone: Bilirubin Test strip Ql (U)o n 06-25-2022 Bilirubin Ql (U) Negative Negative [facility] Work Phone: [phone] Blood erythrocytes count (nu mber/volume)on 06-25-2022 RBC (Bld) [#/Vol] 3.52 10*6/uL 4.2-5.4 [facility] Work Phone: [phone] Blood hemoglobin measurement (mass/volume)on 06-25-2022 Hemoglobin (Bld) [Mass/Vol] 11.9 g/dL 12.0-15.0 [facility] Work Phone: [phone] Blood platelet mean volumeon 06-25-2022 Platelet mean volume (Bld) [Entitic vol] 8.4 fL 6.2-12.0 [facility] Work Phone: [phone] Determination of erythrocyte mean corpuscular volume (MCV)on 06-25-2022 MCV (RBC) [Entitic vol] 104.3 fL 81-99 [facility] Work Phone: [phone] Hematocrit Auto (Bld) [Volum e fraction]on 06-25-2022 Hematocrit (Bld) [Volume fraction] 36.7 % 37-47 [facility] Work Phone: [phone] Ketones Test strip Ql (U)on 06-25-2022 Ketones Ql (U) 5 mg/dl Negative [facility] Work Phone: [phone] Laboratory - Chemistry and C hemistry - challengeon 06-25-2022 ALP [Catalytic activity/Vol] 60 U/L 45-117 [facility] Work Phone: [phone] ALT [Catalytic activity/Vol] 20 U/L 13-56 [facility] Work Phone: [phone] CO2 [Moles/Vol] 26.0 mmol/L 21.0-32.0 [facility] Work Phone: [phone] Globulin (S) [Mass/Vol] 3.3 g/dL 2.2-4.2 [facility] Work Phone: [phone] Magnesium [Mass/Vol] 1.9 mg/dL 1.6-2.6 [facility] Work Phone: [phone] Urea nitrogen/Creatinine [Mass ratio] 36.1 mg/mg 10-20 [facility] Work Phone: [phone] Laboratory - Hematology and Cell countson 06-25-2022 Erythrocyte distribution width (RBC) [Entitic vol] 46.9 fL 35.1-43.9 [facility] Work Phone: [phone] Erythrocyte distribution width (RBC) [Ratio] 12.4 % 11.6-14.6 [facility] Work Phone: [phone] MCH (RBC) [Entitic mass] 33.8 pg 27.0-32.0 [facility] Work Phone: [phone] MCHC Auto (RBC) [Mass/Vol]on 06-25-2022 MCHC (RBC) [Mass/Vol] 32.4 g/dL 32-36 [facility] Work Phone: [phone] Nitrite Test strip Ql (U)on 06-25-2022 Nitrite Ql (U) Negative Negative [facility] Work Phone: [phone] No Panel Informationon 06-25 Estimated GFR (MDRD) Amer 139 mL/min >60 [facility] Work Phone: [phone] Comment on above: GFR Calc Estimated GFR (MDRD) Non-Af Amer 115 mL/min >60 [facility] Work Phone: [phone] Comment on above: Non- GFR Calc Platelets bldon 06-25-2022 Platelets (Bld) [#/Vol] 101 10*3/uL 150-450 [facility] Work Phone: [phone] Protein Test strip Ql (U)on 06-25-2022 Protein Ql (U) 100 mg/dl Negative [facility] Work Phone: [phone] Serum or plasma albumin claudette urement (mass/volume)on 06-25-2022 Albumin [Mass/Vol] 2.3 g/dL 3.2-5.0 [facility] Work Phone: [phone] Serum or plasma albumin/glob ulin mass ratioon 06-25-2022 Albumin/Globulin [Mass ratio] 0.7 {ratio} 0.9-2.4 [facility] Work Phone: Serum or plasma calcium claudette urement (mass/volume)on 06-25-2022 Calcium [Mass/Vol] 8.4 mg/dL 8.5-10.1 [facility] Work Phone: Serum or plasma creatinine m easurement (mass/volume)on 06-25-2022 Creatinine [Mass/Vol] 0.55 mg/dL 0.55-1.02 [facility] Work Phone: Comment on above: The validity of the calculated GFR & GFRAA in patients over 70 years has not been determined. Clinical correlation is essential. Serum or plasma urea nitroge n measurement (mass/volume)on 06-25-2022 Urea nitrogen [Mass/Vol] 20 mg/dL 7-18 [facility] Work Phone: Thin prep Papanicolaou smear with manual screeningon 06-25-2022 Thin prep Papanicolaou smear with manual screening 22 U/L 15-37 [facility] Work Phone: Thin prep Papanicolaou smear with manual screening 6 5-15 [facility] Work Phone: Urine blood detectionon RBC Ql (U) 50 /ul Negative [facility] Work Phone: Urine clarityon 06-25-2022 Clarity (U) Cloudy Clear [facility] Work Phone: Urine color determinationon 06-25-2022 Color (U) SEE COMMENT BELOW Yellow [facility] Work Phone: Comment on above: Visual Urine Color: GREEN Urine glucose detectionon Glucose Ql (U) Normal mg/dl Normal [facility] Work Phone: [phone] Urine leukocyte esterase det ection by dipstickon 06-25-2022 Leukocyte esterase Test strip Ql (U) 500 /ul Negative [facility] Work Phone: Urine pHon 06-25-2022 pH (U) 7.0 [pH] 5.0 - 8.0 [facility] Work Phone: Urine specific gravity measu rementon 06-25-2022 Specific gravity (U) [Rel density] 1.020 1.002-1.030 [facility] Work Phone: [phone] Urobilinogen Auto test strip Ql (U)on 06-25-2022 Urobilinogen Ql (U) Normal mg/dl Normal [facility] Work Phone: [phone] Basophil percentageon 2021 Bilirubin [Mass/Vol] 0.10 mg/dL 0.20-1.00 [facility] Work Phone: [phone] Comment on above: For patients on eltr ombopag therapy, use of Dimension Letts TBIL is not recommended. Chloride [Moles/Vol] 109 mmol/L 98-107 [facility] Work Phone: [phone] Glucose [Mass/Vol] 84 mg/dL 74-106 [facility] Work Phone: [phone] Potassium [Moles/Vol] 4.4 mmol/L 3.5-5.1 [facility] Work Phone: [phone] Protein [Mass/Vol] 5.4 g/dL 6.4-8.2 [facility] Work Phone: [phone] Sodium [Moles/Vol] 141 mmol/L 136-145 [facility] Work Phone: [phone] WBC (Bld) [#/Vol] 7.1 10*3/uL 4.4-11.0 [facility] Work Phone: [phone] Blood erythrocytes count (nu mber/volume)on 04-21-2022 RBC (Bld) [#/Vol] 2.97 10*6/uL 4.2-5.4 [facility] Work Phone: [phone] Blood hemoglobin measurement (mass/volume)on 04-21-2022 Hemoglobin (Bld) [Mass/Vol] 10.2 g/dL 12.0-15.0 [facility] Work Phone: [phone] Blood platelet mean volumeon 04-21-2022 Platelet mean volume (Bld) [Entitic vol] 7.8 fL 6.2-12.0 [facility] Work Phone: [phone] Determination of erythrocyte mean corpuscular volume (MCV)on 04-21-2022 MCV (RBC) [Entitic vol] 104.0 fL 81-99 [facility] Work Phone: [phone] Erythrocyte sedimentation ra ir[place]a 04-21-2022 ESR (Bld) [Velocity] 18 mm[facility]h [facility]: [phone] Hematocrit Auto (Bld) [Volum e fraction]on 04-21-2022 Hematocrit (Bld) [Volume fraction] 30.9 % 37-47 [facility] Work Phone: Laboratory - Chemistry and C hemistry - challengeon 04-21-2022 ALP [Catalytic activity/Vol] 50 U/L 45-117 [facility] Work Phone: ALT [Catalytic activity/Vol] 10 U/L 13-56 [facility] Work Phone: [phone] CO2 [Moles/Vol] 26.0 mmol/L 21.0-32.0 [facility] Work Phone: Globulin (S) [Mass/Vol] 3.2 g/dL 2.2-4.2 [facility] Work Phone: [phone] Urea nitrogen/Creatinine [Mass ratio] 33.2 mg/mg 10-20 [facility] Work Phone: [phone] Laboratory - Hematology and Cell countson 04-21-2022 Erythrocyte distribution width (RBC) [Entitic vol] 46.8 fL 35.1-43.9 [facility] Work [phone] Erythrocyte distribution width (RBC) [Ratio] 12.5 % 11.6-14.6 [facility] Work Phone: [phone] MCH (RBC) [Entitic mass] 34.3 pg 27.0-32.0 [facility] Work Phone: MCHC Auto (RBC) [Mass/Vol]on 04-21-2022 MCHC (RBC) [Mass/Vol] 33.0 g/dL 32-36 [facility] Work Phone: No Panel Informationon 04-21 Estimated GFR (MDRD) Amer 134 mL/min >60 [facility] Work Phone: Comment on above: GFR Calc Estimated GFR (MDRD) Non-Af Amer 111 mL/min >60 [facility] Work Phone: Comment on above: Non- GFR Calc Platelets bldon 04-21-2022 Platelets (Bld) [#/Vol] 124 10*3/uL 150-450 [facility] Work Phone: Serum or plasma albumin claudette urement (mass/volume)on 04-21-2022 Albumin [Mass/Vol] 2.2 g/dL 3.2-5.0 [facility] Work Phone: Serum or plasma albumin/glob ulin mass ratioon 04-21-2022 Albumin/Globulin [Mass ratio] 0.7 {ratio} 0.9-2.4 [facility] Work Phone: Serum or plasma calcium claudette urement (mass/volume)on 04-21-2022 Calcium [Mass/Vol] 9.0 mg/dL 8.5-10.1 [facility] Work Phone: Serum or plasma creatinine m easurement (mass/volume)on 04-21-2022 Creatinine [Mass/Vol] 0.57 mg/dL 0.55-1.02 [facility] Work Phone: Comment on above: The validity of the calculated GFR & GFRAA in patients over 70 years has not been determined. Clinical correlation is essential. Serum or plasma urea nitroge n measurement (mass/volume)on 04-21-2022 Urea nitrogen [Mass/Vol] 19 mg/dL 7-18 [facility] Work Phone: Thin prep Papanicolaou smear with manual screeningon 04-21-2022 Thin prep Papanicolaou smear with manual screening 14 U/L 15-37 [facility] Work Phone: [phone] Thin prep Papanicolaou smear with manual screening 6 5-15 [facility] Work Phone: Basophil percentageon 2021 Chloride [Moles/Vol] 107 mmol[facility]L 98-107 [facility] Work [facility]: [phone] Cholesterol [Mass/Vol] 104 mg/dL <200 [facility] Work Phone: [phone] Comment on above: <200 mg/dL Desirable 200-240 mg/dL Borderline >240 mg/dL High Risk Glucose [Mass/Vol] 76 mg/dL 74-106 [facility] Work Phone: Potassium [Moles/Vol] 3.7 mmol/L 3.5-5.1 [facility] Work Phone: Sodium [Moles/Vol] 143 mmol/L 136-145 [facility] Work Phone: Triglyceride [Mass/Vol] 81 mg/dL <199 [facility] Work Phone: Comment on above: The drugs N-Acetylcy steine and Metamizole may falsely depress this assay.Serum Triglycerides Reference Interval Normal <150 mg/dL Borderline high 150 - 199 mg/dL High 200 - 499 mg/dL Very High > or = 500 mg/dL WBC (Bld) [#/Vol] 5.5 10*3/uL 4.4-11.0 [facility] Work Phone: Blood erythrocytes count (nu mber/volume)on 02-28-2022 RBC (Bld) [#/Vol] 2.43 10*6/uL 4.2-5.4 [facility] Work Phone: [phone] Blood hemoglobin measurement (mass/volume)on 02-28-2022 Hemoglobin (Bld) [Mass/Vol] 7.9 g/dL 12.0-15.0 [facility] Work Phone: Blood platelet mean volumeon 02-28-2022 Platelet mean volume (Bld) [Entitic vol] 8.4 fL 6.2-12.0 [facility] Work Phone: [phone] Determination of erythrocyte mean corpuscular volume (MCV)on 02-28-2022 MCV (RBC) [Entitic vol] 111.5 fL 81-99 [facility] Work Phone: [phone] Hematocrit Auto (Bld) [Volum e fraction]on 02-28-2022 Hematocrit (Bld) [Volume fraction] 27.1 % 37-47 [facility] Work Phone: [phone] Laboratory - Chemistry and C hemistry - challengeon 02-28-2022 CO2 [Moles/Vol] 29.0 mmol/L 21.0-32.0 [facility] Work Phone: [phone] Magnesium [Mass/Vol] 1.9 mg/dL 1.6-2.6 [facility] Work Phone: [phone] Urea nitrogen/Creatinine [Mass ratio] 28.9 mg/mg 10-20 [facility] Work Phone: [phone] Laboratory - Hematology and Cell countson 02-28-2022 Erythrocyte distribution width (RBC) [Entitic vol] 53.7 fL 35.1-43.9 [facility] Work Phone: Erythrocyte distribution width (RBC) [Ratio] 13.2 % 11.6-14.6 [facility] Work Phone: [phone] MCH (RBC) [Entitic mass] 32.5 pg 27.0-32.0 [facility] Work Phone: [phone] MCHC Auto (RBC) [Mass/Vol]on 02-28-2022 MCHC (RBC) [Mass/Vol] 29.2 g/dL 32-36 [facility] Work Phone: No Panel Informationon 02-28 Estimated GFR (MDRD) Amer 139 mL/min >60 [facility] Work Phone: Comment on above: GFR Calc Estimated GFR (MDRD) Non-Af Amer 115 mL/min >60 [facility] Work Phone: [phone] Comment on above: Non- GFR Calc Thyroid Stimulating Hormone (TSH) 2.92 uIU/mL 0.358-3.74 [facility] Work Phone: Vitamin D 25-Hydroxy 51.1 ng/mL [facility] Work Phone: Comment on above: Vitamin D 25(OH) Sta tus Range Deficiency <20 ng/mL (50nmol/L) Insufficiency 20 - 30 ng/mL (50 - 75 nmol/L) Sufficiency 30 - 100 ng/mL (75 - 250 nmol/L) Toxicity >100 ng/mL (>250 nmol/L) Platelets bldon 02-28-2022 Platelets (Bld) [#/Vol] 164 10*3/uL 150-450 [facility] Work Phone: Serum or plasma calcium claudette urement (mass/volume)on 02-28-2022 Calcium [Mass/Vol] 8.5 mg/dL 8.5-10.1 [facility] Work Phone: Serum or plasma cholesterol in HDL measurement (mass/volume)on 02-28-2022 Cholesterol in HDL [Mass/Vol] 57 mg/dL >40 [facility] Work Phone: Comment on above: The drugs N-Acetylcy steine and Metamizole may falsely depress this assay. Reference Range HDL <40 mg/dL Low HDL Cholesterol HDL >or= 60 mg/dL High HDL Cholesterol Serum or plasma cholesterol in VLDL measurement (mass/volume)on 02-28-2022 Cholesterol in VLDL [Mass/Vol] 16 mg/dL 5-40 [facility] Work Phone: Serum or plasma creatinine m easurement (mass/volume)on 02-28-2022 Creatinine [Mass/Vol] 0.55 mg/dL 0.55-1.02 [facility] Work Phone: Comment on above: The validity of the calculated GFR & GFRAA in patients over 70 years has not been determined. Clinical correlation is essential. Serum or plasma low density lipoprotein (LDL) cholesterol measurement (mass/volume)on 02-28-2022 Cholesterol in LDL [Mass/Vol] 31 mg/dL 0-130 [facility] Work Phone: Serum or plasma urea nitroge n measurement (mass/volume)on 02-28-2022 Urea nitrogen [Mass/Vol] 16 mg/dL 7-18 [facility] Work Phone: Thin prep Papanicolaou smear with manual screeningon 02-28-2022 Thin prep Papanicolaou smear with manual screening 7 5-15 [facility] Work Phone: [phone] Whole blood hemoglobin A1c/t otal hemoglobin ratio (mass fraction)on 02-28-2022 HbA1c (Bld) [Mass fraction] % 3.8-5.6 [facility] Work Phone: Comment on above: Normal < 5.7 % Predi abetic 5.7 - 6.4 % Diabetic >or= 6.5 % Please note range changes. Basophil percentageon 2021 Ammonia (P) [Moles/Vol] 18.0 umol/L 11-32 [facility] Work Phone: No Panel Informationon 12-05 Valproic Acid (Depakene) Level 95 ug/mL 50-100 [facility] Work Phone: Basophil percentageon 2021 Bilirubin [Mass/Vol] 0.10 mg/dL 0.20-1.00 [facility] Work Phone: Comment on above: For patients on eltr ombopag therapy, use of Dimension Letts TBIL is not recommended. Chloride [Moles/Vol] 110 mmol/L 98-107 [facility] Work Phone: [phone] Glucose [Mass/Vol] 87 mg/dL 74-106 [facility] Work Phone: [phone] Potassium [Moles/Vol] 3.7 mmol/L 3.5-5.1 [facility] Work Phone: [phone] Protein [Mass/Vol] 5.1 g/dL 6.4-8.2 [facility] Work Phone: [phone] Sodium [Moles/Vol] 142 mmol/L 136-145 [facility] Work Phone: [phone] Laboratory - Chemistry and C hemistry - challengeon 12-01-2021 ALP [Catalytic activity/Vol] 45 U/L 45-117 [facility] Work Phone: ALT [Catalytic activity/Vol] 10 U/L 13-56 [facility] Work Phone: [phone] CO2 [Moles/Vol] 28.0 mmol/L 21.0-32.0 [facility] Work Phone: [phone] Globulin (S) [Mass/Vol] 2.7 g/dL 2.2-4.2 [facility] Work Phone: [phone] Urea nitrogen/Creatinine [Mass ratio] 36.8 mg/mg 10-20 [facility] Work Phone: No Panel Informationon 12-01 Estimated GFR (MDRD) Amer 101 mL/min >60 [facility] Work Phone: Comment on above: GFR Calc Estimated GFR (MDRD) Non-Af Amer 83 mL/min >60 [facility] Work Phone: Comment on above: Non- GFR Calc Serum or plasma albumin claudette urement (mass/volume)on 12-01-2021 Albumin [Mass/Vol] 2.4 g/dL 3.2-5.0 [facility] Work Phone: Serum or plasma albumin/glob ulin mass ratioon 12-01-2021 Albumin/Globulin [Mass ratio] 0.9 {ratio} 0.9-2.4 [facility] Work Phone: [phone] Serum or plasma calcium claudette urement (mass/volume)on 12-01-2021 Calcium [Mass/Vol] 8.9 mg/dL 8.5-10.1 [facility] Work Phone: [phone] Serum or plasma creatinine m easurement (mass/volume)on 12-01-2021 Creatinine [Mass/Vol] 0.73 mg/dL 0.55-1.02 [facility] Work Phone: Comment on above: The validity of the calculated GFR & GFRAA in patients over 70 years has not been determined. Clinical correlation is essential. Serum or plasma urea nitroge n measurement (mass/volume)on 12-01-2021 Urea nitrogen [Mass/Vol] 27 mg/dL 7-18 [facility] Work Phone: Thin prep Papanicolaou smear with manual screeningon 12-01-2021 Thin prep Papanicolaou smear with manual screening 8 U/L 15-37 [facility] Work Phone: Thin prep Papanicolaou smear with manual screening 4 5-15 [facility] Work Phone: Basophil percentageon 2021 Chloride [Moles/Vol] 110 mmol/L 98-107 [facility] Work Phone: Glucose [Mass/Vol] 74 mg/dL 74-106 [facility] Work Phone: Potassium [Moles/Vol] 3.2 mmol/L 3.5-5.1 [facility] Work Phone: Sodium [Moles/Vol] 145 mmol/L 136-145 [facility] Work Phone: Laboratory - Chemistry and C hemistry - challengeon 11-16-2021 CO2 [Moles/Vol] 27.0 mmol/L 21.0-32.0 [facility] Work Phone: Urea nitrogen/Creatinine [Mass ratio] 22.6 mg/mg 10-20 [facility] Work Phone: No Panel Informationon 11-16 Estimated GFR (MDRD) Amer 134 mL/min >60 [facility] Work Phone: Comment on above: GFR Calc Estimated GFR (MDRD) Non-Af Amer 110 mL/min >60 [facility] Work Phone: Comment on above: Non- GFR Calc Serum or plasma calcium claudette urement (mass/volume)on 11-16-2021 Calcium [Mass/Vol] 8.7 mg/dL 8.5-10.1 [facility] Work Phone: Serum or plasma creatinine m easurement (mass/volume)on 11-16-2021 Creatinine [Mass/Vol] 0.57 mg/dL 0.55-1.02 [facility] Work Phone: Comment on above: The validity of the calculated GFR & GFRAA in patients over 70 years has not been determined. Clinical correlation is essential. Serum or plasma urea nitroge n measurement (mass/volume)on 11-16-2021 Urea nitrogen [Mass/Vol] 13 mg/dL 7-18 [facility] Work Phone: Thin prep Papanicolaou smear with manual screeningon 11-16-2021 Thin prep Papanicolaou smear with manual screening 8 5-15 [facility] Work Phone: Basophil percentageon 2021 Chloride [Moles/Vol] 104 mmol/L 98-107 [facility] Work Phone: [phone] Glucose [Mass/Vol] 81 mg/dL 74-106 [facility] Work Phone: [phone] Potassium [Moles/Vol] 2.9 mmol/L 3.5-5.1 [facility] Work Phone: Sodium [Moles/Vol] 142 mmol/L 136-145 [facility] Work Phone: [phone] WBC (Bld) [#/Vol] 9.8 10*3/uL 4.4-11.0 [facility] Work Phone: [phone] Blood erythrocytes count (nu mber/volume)on 11-08-2021 RBC (Bld) [#/Vol] 3.21 10*6/uL 4.2-5.4 [facility] Work Phone: [phone] Blood hemoglobin measurement (mass/volume)on 11-08-2021 Hemoglobin (Bld) [Mass/Vol] 9.0 g/dL 12.0-15.0 [facility] Work Phone: [phone] Blood manual differential co mment interpretation (narrative result)on 11-08-2021 Manual differential comment Charan (Bld) [Interp] SCANNED [facility] Work Phone: [phone] Comment on above: 2+ ANISOCYTOSIS1+ MA CROCYTOSIS1+ MACROCYTOSIS Blood platelet mean volumeon 11-08-2021 Platelet mean volume (Bld) [Entitic vol] 8.7 fL 6.2-12.0 [facility] Work Phone: [phone] Determination of erythrocyte mean corpuscular volume (MCV)on 11-08-2021 MCV (RBC) [Entitic vol] 90.7 fL 81-99 [facility] Work Phone: [phone] Hematocrit Auto (Bld) [Volum e fraction]on 11-08-2021 Hematocrit (Bld) [Volume fraction] 29.1 % 37-47 [facility] Work Phone: [phone] Laboratory - Chemistry and C hemistry - challengeon 11-08-2021 CO2 [Moles/Vol] 32.0 mmol/L 21.0-32.0 [facility] Work Phone: [phone] Urea nitrogen/Creatinine [Mass ratio] 34.5 mg/mg 10-20 [facility] Work Phone: [phone] Laboratory - Hematology and Cell countson 11-08-2021 Erythrocyte distribution width (RBC) [Entitic vol] 68.8 fL 35.1-43.9 [facility] Work Phone: [phone] Erythrocyte distribution width (RBC) [Ratio] 20.9 % 11.6-14.6 [facility] Work Phone: [phone] MCH (RBC) [Entitic mass] 28.0 pg 27.0-32.0 [facility] Work Phone: [phone] MCHC Auto (RBC) [Mass/Vol]on 11-08-2021 MCHC (RBC) [Mass/Vol] 30.9 g/dL 32-36 [facility] Work Phone: [phone] No Panel Informationon 11-08 Estimated GFR (MDRD) Amer 159 mL/min >60 [facility] Work Phone: [phone] Comment on above: GFR Calc Estimated GFR (MDRD) Non-Af Amer 132 mL/min >60 [facility] Work Phone: Comment on above: Non- GFR Calc Platelets bldon 11-08-2021 Platelets (Bld) [#/Vol] 276 10*3/uL 150-450 [facility] Work Phone: Serum or plasma calcium claudette urement (mass/volume)on 11-08-2021 Calcium [Mass/Vol] 8.4 mg/dL 8.5-10.1 [facility] Work Phone: Serum or plasma creatinine m easurement (mass/volume)on 11-08-2021 Creatinine [Mass/Vol] 0.49 mg/dL 0.55-1.02 [facility] Work Phone: Comment on above: The validity of the calculated GFR & GFRAA in patients over 70 years has not been determined. Clinical correlation is essential. Serum or plasma urea nitroge n measurement (mass/volume)on 11-08-2021 Urea nitrogen [Mass/Vol] 17 mg/dL 7-18 [facility] Work Phone: Thin prep Papanicolaou smear with manual screeningon 11-08-2021 Thin prep Papanicolaou smear with manual screening 6 5-15 [facility] Work Phone: CNPNon 10-28-2021 [facility] Tele[facility] ([facility]) ELBA DIAZ ([id number]) 1950 F T Date Time Provider Department 10/28/21 MARCUS TIERNEY [facility] During your visit today, we recorded the following information about you: Allergies As of Date: 10/28/2021 Noted Allergy Reaction CODEINE 03/26/2017 14 - Other: See Comments Comments: nausea Date Reviewed: 10/28/2021 Reviewed by: Chiquita Kendrick RN - Fully Assessed Reason for Visit: Appointment [186] Prescriptions as of 10/28/2021 - citalopram hydrobromide (CELEXA) 10 mg tablet Take by mouth once daily. - divalproex DR (DEPAKOTE) 125 mg EC tablet Take 125 mg by mouth three times daily. - gabapentin (NEURONTIN) 100 mg capsule Take 200 mg by mouth once daily. - amoxicillin (POLYMOX, AMOXIL) 500 mg capsule Take 1 capsule by mouth every 8 hours for 27 doses. - pantoprazole DR (PROTONIX) 40 mg tablet Take 1 tablet by mouth once daily. - ferrous sulfate 325 mg (65 mg iron) tablet Take 1 tablet by mouth daily with breakfast. - docusate sodium (COLACE) 100 mg capsule Take 1 capsule by mouth once daily. Take while taking protonix - Albuterol Sulfate 0.63 mg/3 mL nebulizer solution Use 1 Ampule via nebulizer every 4 hours as needed for wheezing/shortness of breath. - levETIRAcetam (KEPPRA) 250 mg tablet Take 250 mg by mouth twice daily. - acetaminophen-codeine (TYLENOL-CODEINE #3) 300-30 mg per tablet Take 1 tablet by mouth four times daily as needed for pain. - diclofenac (VOLTAREN) 1 % topical gel Apply 4 g to affected area four times daily. Left knee - amitriptyline (ELAVIL) 50 mg tablet Take 50 mg by mouth daily at bedtime. - mirabegron (MYRBETRIQ) 25 mg Tb24 Take 25 mg by mouth once daily. - cholestyramine-sucrose (QUESTRAN) 4 gram powder Take by mouth twice daily with meals. - rOPINIRole (REQUIP) 1 mg tablet Take 1 mg by mouth daily at bedtime. - acetaminophen (TYLENOL) 500 mg tablet Take 1,000 mg by mouth every 6 hours as needed for pain. - loperamide (IMODIUM A-D) 2 mg cap(s) Take 2 mg by mouth four times daily as needed for diarrhea. - baclofen (LIORESAL) 20 mg tablet TAKE 1 TABLET BY MOUTH THREE TIMES A DAY - MAGNESIUM OXIDE ORAL Take 250 mg by mouth once daily. - L-LYSINE ORAL Take 1,000 mg by mouth once daily. - alendronate (FOSAMAX) 70 mg tablet TAKE 1 TABLET BY MOUTH ONE TIME A WEEK. IN MORNING WITH GLASS OF WATER, ON AN EMPTY STOMACH, NOTHING BY MOUTH OR LYING DOWN FOR 30 MINUTES. - clopidogrel (PLAVIX) 75 mg tablet Take 1 tablet by mouth once daily. - atorvastatin (LIPITOR) 80 mg tablet TAKE 1 TABLET BY MOUTH EVERY DAY - [facility] Blue-Sod Ntgk-PuXwj-Rwt (URIBEL) 118-10-40.8-36 mg Take 1 capsule by mouth once daily. - levothyroxine (SYNTHROID) 125 mcg tablet TAKE 1 TABLET BY MOUTH EVERY MORNING BEFORE BREAKFAST - estradiol (ESTRACE) 0.01 % (0.1 mg/gram) vaginal cream Use 1 g vaginally two times a week. - ketoconazole (NIZORAL) 2 % cream Apply to affected area twice daily. - aspirin, enteric coated (ASPIR-81) 81 mg EC tablet Take 81 mg by mouth once daily. - calcium carbonate-vitamin D3 (CALCIUM 500+D) 500 mg(1,250mg) -400 unit chewable tablet Take 1 tablet by mouth twice daily. - estradiol (VIVELLE-DOT) 0.05 mg/24 hr Apply 1 Patch as directed one time a week. - predniSONE (DELTASONE) 10 mg tablet Take 10 mg by mouth once daily. - rizatriptan (MAXALT) 5 mg tablet Take 5 mg by mouth as needed. May repeat in 2 hours if needed; do not exceed 30mg in 24hours Facility-Administered Medications as of 10/28/2021 - gabapentin 100 mg cap(s) (NEURONTIN) - levETIRAcetam 250 mg tab(s) (KEPPRA) - albuterol 2.5 mg/3 mL 2.5 mg (PROVENTIL) - predniSONE 10 mg tab(s) (DELTASONE) - levothyroxine 125 mcg tab(s) (SYNTHROID) - amoxicillin 500 mg cap(s) (POLYMOX, AMOXIL) - aspirin, enteric coated 81 mg tab(s) - clopidogrel 75 mg tab(s) (PLAVIX) - enoxaparin 40 mg injection (LOVENOX) - sodium chloride 0.9 % (flush) 3-5 mL (BD POSIFLUSH) - divalproex DR 250 mg tab(s) (DEPAKOTE) - NaCl 0.9% iv flush bag Meds Comments as of 02/12/2021: Family bring in list of medications to update med list 02/12/2021 Problem List As Of Date 10/28/2021 Noted Resolved Endometriosis [N80.9] Colon polyp [K63.5] Hypothyroid [E03.9] Fatigue [R53.83] Mild depression (HCC) [F32.A] Polyneuropathy [G62.9] 07/22/2012 Aneurysm (HCC) [I72.9] Multiple lung nodules on CT [R91.8] Pure hypercholesterolemia [E78.00] 03/26/2017 Impaired functional mobility, balance, gait, an*01/26/2020 Left arm weakness [R29.898] 02/11/2020 Impaired mobility and ADLs [Z74.09, Z78.9] 02/11/2020 Cerebrovascular accident (CVA) (HCC) [I63.9] 03/05/2020 Spasticity [R25.2] 03/05/2020 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] 03/05/2020 Hypertension, essential [I10] 03/05/2020 DAVEY (acute kidney injury) (HCC) [N17.9] 05/14/2020 02/08/2021 Hypotension [I95. (more content not included)... Normal [facility] CNPNon 10-27-2021 CNPN Telephone (ST[facility]) ELBA DIAZ ([id number]) 1950 F T Date Time Provider Department 10/27/21 MARCUS TIERNEY [facility] During your visit today, we recorded the following information about you: Marcus Tierney MD 10/27/2021 3:30 PM Signed I haven't seen patient physically since 05/2020. She needs to come in for appt if wants me to continue to take care of her. I am receiving nursing orders but I can't sign them until she comes in Saundra Ibarra LPN 10/27/2021 3:37 PM Signed Elba currently in nursing. Spoke with daughter in law tammie whom referred me to contact Mauricio. [facility] for mauricio to call office Allergies As of Date: 10/27/2021 Noted Allergy Reaction CODEINE 03/26/2017 14 - Other: See Comments Comments: nausea Date Reviewed: 10/27/2021 Reviewed by: Monie Alvarado RN - Fully Assessed Reason for Visit: Appointment [186] Prescriptions as of 11/23/2021 - divalproex DR (DEPAKOTE) 500 mg EC tablet Take 1 tablet by mouth twice daily. - gabapentin (NEURONTIN) 100 mg capsule Take 2 capsules by mouth twice daily for 60 days. - predniSONE (DELTASONE) 1 mg tablet Take 9 tablets by mouth once daily for 30 days, THEN 8 tablets once daily for 30 days, THEN 7 tablets once daily for 30 days, THEN 6 tablets once daily for 30 days, THEN 5 tablets once daily for 30 days, THEN 4 tablets once daily for 30 days, THEN 3 tablets once daily for 30 days, THEN 2 tablets once daily for 30 days, THEN 1 tablet once daily. - zinc oxide 20 % ointment Apply to affected area twice daily. - citalopram hydrobromide (CELEXA) 10 mg tablet Take 10 mg by mouth once daily. - mirabegron (MYRBETRIQ) 25 mg Tb24 Take 25 mg by mouth once daily. - alendronate (FOSAMAX) 35 mg tablet Take 70 mg by mouth one time a week. In AM with cup of water on empty stomach. Nothing else by mouth and stay upright for 30 min. - clopidogrel (PLAVIX) 75 mg tablet Take 1 tablet by mouth once daily. - pantoprazole DR (PROTONIX) 40 mg tablet Take 1 tablet by mouth once daily. - ferrous sulfate 325 mg (65 mg iron) tablet Take 1 tablet by mouth daily with breakfast. - docusate sodium (COLACE) 100 mg capsule Take 1 capsule by mouth once daily. Take while taking protonix - levETIRAcetam (KEPPRA) 250 mg tablet Take 250 mg by mouth twice daily. - diclofenac (VOLTAREN) 1 % topical gel Apply 4 g to affected area four times daily. Left knee - amitriptyline (ELAVIL) 50 mg tablet Take 50 mg by mouth daily at bedtime. - cholestyramine-sucrose (QUESTRAN) 4 gram powder Take by mouth twice daily with meals. - rOPINIRole (REQUIP) 1 mg tablet Take 1 mg by mouth daily at bedtime. - acetaminophen (TYLENOL) 500 mg tablet Take 1,000 mg by mouth every 6 hours as needed for pain. - loperamide (IMODIUM A-D) 2 mg cap(s) Take 2 mg by mouth four times daily as needed for diarrhea. - MAGNESIUM OXIDE ORAL Take 250 mg by mouth once daily. - L-LYSINE ORAL Take 1,000 mg by mouth once daily. - atorvastatin (LIPITOR) 80 mg tablet TAKE 1 TABLET BY MOUTH EVERY DAY - [facility] Blue-Sod Oryi-RqOmx-Rje (URIBEL) 118-10-40.8-36 mg Take 1 capsule by mouth once daily. - levothyroxine (SYNTHROID) 125 mcg tablet TAKE 1 TABLET BY MOUTH EVERY MORNING BEFORE BREAKFAST - aspirin, enteric coated (ASPIR-81) 81 mg EC tablet Take 81 mg by mouth once daily. - calcium carbonate-vitamin D3 (CALCIUM 500+D) 500 mg(1,250mg) -400 unit chewable tablet Take 1 tablet by mouth twice daily. - estradiol (VIVELLE-DOT) 0.05 mg/24 hr Apply 1 Patch as directed one time a week. - rizatriptan (MAXALT) 5 mg tablet Take 5 mg by mouth as needed. May repeat in 2 hours if needed; do not exceed 30mg in 24hours Meds Comments as of 02/12/2021: Family bring in list of medications to update med list 02/12/2021 Problem List As Of Date 10/27/2021 Noted Resolved Endometriosis [N80.9] Colon polyp [K63.5] Hypothyroid [E03.9] Fatigue [R53.83] Mild depression (HCC) [F32.A] Polyneuropathy [G62.9] 07/22/2012 Aneurysm (HCC) [I72.9] Multiple lung nodules on CT [R91.8] Pure hypercholesterolemia [E78.00] 03/26/2017 Impaired functional mobility, balance, gait, an*01/26/2020 Left arm weakness [R29.898] 02/11/2020 Impaired mobility and ADLs [Z74.09, Z78.9] 02/11/2020 Cerebrovascular accident (CVA) (HCC) [I63.9] 03/05/2020 Spasticity [R25.2] 03/05/2020 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] 03/05/2020 Hypertension, essential [I10] 03/05/2020 DAVEY (acute kidney injury) (HCC) [N17.9] 05/14/2020 02/08/2021 Hypotension [I95.9] 05/14/2020 Acute renal insufficiency [N28.9] 05/16/2020 02/08/2021 Seizure (HCC) [R56.9] 05/16/2020 Headache [R51.9] 02/01/2021 Arm paresthesia, right [R20.2] 02/07/2021 Hemiparesis of left nondominant side as late ef*02/08/2021 Epilepsy (HCC) [G40.909] 10/21/2021 Iron deficiency anemia, unspecified [D50.9] 10/21/2021 Fever [R50.9] 10/21/2021 UTI (u (more content not included)... Normal [facility] CNPNon 10-24-2021 CNPN Telephone (PEST[facility]) ELBA DIAZ ([id number]) 1950 F CHT Date Time Provider Department 10/24/21 MARCUS TIERNEY [facility] During your visit today, we recorded the following information about you: Naomi Miller Ma 10/24/2021 1:52 PM Signed Start of care to be completed form on pcp desk for review Allergies As of Date: 10/24/2021 Noted Allergy Reaction CODEINE 03/26/2017 14 - Other: See Comments Comments: nausea Date Reviewed: 10/24/2021 Reviewed by: Fabby Garcia RN - Fully Assessed Reason for Visit: Forms [913] Cmt: absolute skilled home health Prescriptions as of 10/24/2021 - Albuterol Sulfate 0.63 mg/3 mL nebulizer solution Use 1 Ampule via nebulizer every 4 hours as needed for wheezing/shortness of breath. - levETIRAcetam (KEPPRA) 250 mg tablet Take 250 mg by mouth twice daily. - acetaminophen-codeine (TYLENOL-CODEINE #3) 300-30 mg per tablet Take 1 tablet by mouth every 4 hours as needed for pain. - diclofenac (VOLTAREN) 1 % topical gel Apply 4 g to affected area four times daily. Left knee - amitriptyline (ELAVIL) 50 mg tablet Take 50 mg by mouth daily at bedtime. - mirabegron (MYRBETRIQ) 25 mg Tb24 Take 25 mg by mouth once daily. - cholestyramine-sucrose (QUESTRAN) 4 gram powder Take by mouth twice daily with meals. - rOPINIRole (REQUIP) 1 mg tablet Take 1 mg by mouth daily at bedtime. - acetaminophen (TYLENOL) 500 mg tablet Take 1,000 mg by mouth every 6 hours as needed for pain. - loperamide (IMODIUM A-D) 2 mg cap(s) Take 2 mg by mouth four times daily as needed for diarrhea. - citalopram (CELEXA) 40 mg tablet TAKE 1 TABLET BY MOUTH EVERY DAY - baclofen (LIORESAL) 20 mg tablet TAKE 1 TABLET BY MOUTH THREE TIMES A DAY - divalproex DR (DEPAKOTE) 250 mg EC tablet Take 3 tablets by mouth twice daily. - MAGNESIUM OXIDE ORAL Take 250 mg by mouth once daily. - L-LYSINE ORAL Take 1,000 mg by mouth once daily. - alendronate (FOSAMAX) 70 mg tablet TAKE 1 TABLET BY MOUTH ONE TIME A WEEK. IN MORNING WITH GLASS OF WATER, ON AN EMPTY STOMACH, NOTHING BY MOUTH OR LYING DOWN FOR 30 MINUTES. - gabapentin (NEURONTIN) 400 mg capsule Take 2 capsules by mouth three times daily for 30 days. - clopidogrel (PLAVIX) 75 mg tablet Take 1 tablet by mouth once daily. - atorvastatin (LIPITOR) 80 mg tablet TAKE 1 TABLET BY MOUTH EVERY DAY - [facility] Blue-Sod Cukt-QhWhs-Blp (URIBEL) 118-10-40.8-36 mg Take 1 capsule by mouth once daily. - levothyroxine (SYNTHROID) 125 mcg tablet TAKE 1 TABLET BY MOUTH EVERY MORNING BEFORE BREAKFAST - bethanechol (URECHOLINE) 25 mg tablet Take 1 tablet by mouth three times daily. UNTIL EFFECTIVE (MAX DOSE 50MG) - estradiol (ESTRACE) 0.01 % (0.1 mg/gram) vaginal cream Use 1 g vaginally two times a week. - ketoconazole (NIZORAL) 2 % cream Apply to affected area twice daily. - aspirin, enteric coated (ASPIR-81) 81 mg EC tablet Take 81 mg by mouth once daily. - calcium carbonate-vitamin D3 (CALCIUM 500+D) 500 mg(1,250mg) -400 unit chewable tablet Take 1 tablet by mouth twice daily. - estradiol (VIVELLE-DOT) 0.05 mg/24 hr Apply 1 Patch as directed one time a week. - predniSONE (DELTASONE) 5 mg tablet Take 10 mg by mouth once daily. - rizatriptan (MAXALT) 5 mg tablet Take 5 mg by mouth as needed. May repeat in 2 hours if needed - gbkjyru-jflzvdtj-tpguzr ital (FIORINAL) capsule Take 1 capsule by mouth every 8 hours as needed. Facility-Administered Medications as of 10/24/2021 - potassium chloride ER 40 mEq tab(s) (K-DUR, KLOR-CON) - amoxicillin 500 mg cap(s) (POLYMOX, AMOXIL) - acetaminophen 650 mg tab(s) (TYLENOL) - albuterol 2.5 mg /3 mL (0.083 %) 2.5 mg (PROVENTIL) - amitriptyline 50 mg tab(s) (ELAVIL) - atorvastatin 80 mg tab(s) (LIPITOR) - cholestyramine 4 g packet (QUESTRAN) - divalproex DR 125 mg tab(s) (DEPAKOTE) - gabapentin 200 mg cap(s) (NEURONTIN) - levETIRAcetam 250 mg tab(s) (KEPPRA) - levothyroxine 125 mcg tab(s) (SYNTHROID) - mirabegron 25 mg ER 24 hour tablet (MYRBETRIQ) - Mth-Me Blue-Sod Hlnu-MlHeu-Adg 118-10-40.8-36 mg cap 1 capsule - rOPINIRole 1 mg tab(s) (REQUIP) - hydrocortisone sodium succinate (PF) 50 mg injection (Solu-CORTEF) - citalopram hydrobromide 10 mg tablet (CeleXA) - sodium chloride 0.9 % (flush) 3-5 mL (BD POSIFLUSH) - sodium chloride 0.9 % (flush) 2-10 mL (BD POSIFLUSH) - ferric gluconate 125 mg in NaCl 0.9% 100 mL (FERRLECIT) - NaCl 0.9% iv flush bag Meds Comments as of 02/12/2021: Family bring in list of medications to update med list 02/12/2021 Problem List As Of Date 10/24/2021 Noted Resolved Endometriosis [N80.9] Colon polyp [K63.5] Hypothyroid [E03.9] Fatigue [R53.83] Mild depression (HCC) [F32.A] Polyneuropathy [G62.9] 07/22/2012 Aneurysm (HCC) [I72.9] Multiple lung nodules on CT [R91.8] Pure hypercholesterolemia [E78.00] 03/26/2017 Impaired functional mob (more content not included)... Normal [facility] Absolute lymphocyte counton 10-21-2021 Lymphocytes Auto (Unsp spec) [#/Vol] 0.45 10*3/uL 0.83-4.51 [facility] Work Phone: Basophil percentageon 2020 Ammonia (P) [Moles/Vol] 38.0 umol/L -32 [facility] Work Phone: Bilirubin [Mass/Vol] 0.20 mg/dL 0.20-1.00 [facility] Work Phone: Comment on above: For patients on eltr ombopag therapy, use of Dimension Letts TBIL is not recommended. Chloride [Moles/Vol] 107 mmol/L 98-107 [facility] Work Phone: Cholesterol [Mass/Vol] 121 mg/dL <200 [facility] Work Phone: Comment on above: <200 mg/dL Desirable 200-240 mg/dL Borderline >240 mg/dL High Risk Eosinophils/100 WBC (Bld) 2.4 % 0-5 [facility] Work Phone: Glucose [Mass/Vol] 101 mg/dL 74-106 [facility] Work Phone: Comment on above: Fasting Glucose resu lt from 100 to 125 mg/dL suggests IMPAIRED HOMEOSTASIS per A.D.A. criteria.Please note revised GLUCOSE reference range effective 2017. Neutrophils (Bld) [#/Vol] 4.6 10*3/uL 2.0-7.7 [facility] Work Phone: Potassium [Moles/Vol] 3.5 mmol/L 3.5-5.1 [facility] Work Phone: Protein [Mass/Vol] 5.8 g/dL 6.4-8.2 [facility] Work Phone: Sodium [Moles/Vol] 139 mmol/L 136-145 [facility] Work Phone: Triglyceride [Mass/Vol] 167 mg/dL [facility] Work Phone: Comment on above: The drugs N-Acetylcy steine and Metamizole may falsely depress this assay.Serum Triglycerides Reference Interval Normal <150 mg/dL Borderline high 150 - 199 mg/dL High 200 - 499 mg/dL Very High > or = 500 mg/dL WBC (Bld) [#/Vol] 5.5 10*3/uL 4.4-11.0 [facility] Work Phone: Blood erythrocytes count (nu mber/volume)on 10-21-2021 RBC (Bld) [#/Vol] 2.09 10*6/uL 4.2-5.4 [facility] Work Phone: Blood hemoglobin measurement (mass/volume)on 10-21-2021 Hemoglobin (Bld) [Mass/Vol] 4.6 g/dL 12.0-15.0 [facility] [facility] Comment on above: CRITICAL VALUE VERIF IED. CALLED TO YENNY BROWNING RN AT [facility]10/21/21 1414 Kadi Cardenas.RESULTS READ BACK BY SAME . Blood lymphocytes/100 leukoc yteson 12-31-2021 Lymphocytes/100 WBC (Bld) 8.2 % 19-41 [facility] Work Phone: Blood monocytes/100 leukocyt eson 10-21-2021 Monocytes/100 WBC (Bld) 5.1 % 0-10 [facility] Work Phone: Blood platelet adequacy dete ction by light microscopyon 10-21-2021 Platelets LM Ql (Bld) ADEQUATE ADEQ [facility] Work Phone: Blood platelet mean volumeon 10-21-2021 Platelet mean volume (Bld) [Entitic vol] 9.6 fL 6.2-12.0 [facility] Work Phone: Blood polychromasia detectio n by light microscopyon 10-21-2021 Polychromasia LM Ql (Bld) 1+ [facility] Work Phone: Determination of erythrocyte mean corpuscular volume (MCV)on 10-21-2021 MCV (RBC) [Entitic vol] 78.5 fL 81-99 [facility] Work Phone: Hematocrit Auto (Bld) [Volum e fraction]on 10-21-2021 Hematocrit (Bld) [Volume fraction] 16.4 % 37-47 [facility] Work Phone: Hypochromatic red blood cell detectionon 10-21-2021 Hypochromia Ql (Bld) 3+ [facility] - Chemistry and C hemistry - challengeon 10-21-2021 ALP [Catalytic activity/Vol] 51 U/L 45-117 [facility] Work Phone: ALT [Catalytic activity/Vol] 18 U/L 13-56 [facility] Work Phone: CO2 [Moles/Vol] 23.0 mmol/L 21.0-32.0 [facility] Work Phone: Globulin (S) [Mass/Vol] 3.5 g/dL 2.2-4.2 [facility] Work Phone: Urea nitrogen/Creatinine [Mass ratio] 14.6 mg/mg 10-20 [facility] Work Phone: Laboratory - Hematology and Cell countson 10-21-2021 Anisocytosis Ql (Bld) 1+ [facility] Work Phone: Basophils/100 WBC (Unsp spec) 0.2 % 0-1 [facility] Work Phone: [phone] Erythrocyte distribution width (RBC) [Entitic vol] 53.7 fL 35.1-43.9 [facility] Work Phone: [phone] Erythrocyte distribution width (RBC) [Ratio] 19.4 % 11.6-14.6 [facility] Work Phone: [phone] Immature granulocytes/100 WBC (Bld) 1.300 % 0.0-0.9 [facility] Work Phone: [phone] Comment on above: IG% - Immature Granu locytes (promyelocytes, myelocytes and metamyelocytes) > 1% indicates that a LEFT SHIFT is Present. MCH (RBC) [Entitic mass] 22.0 pg 27.0-32.0 [facility] Work Phone: [phone] Neutrophils/100 WBC (Bld) 82.8 % 47-70 [facility] Work Phone: [phone] Nucleated RBC/100 WBC (Bld) [Ratio] 1.3 % 0-5 [facility] Work Phone: [phone] MCHC Auto (RBC) [Mass/Vol]on 10-21-2021 MCHC (RBC) [Mass/Vol] 28.0 g/dL 32-36 [facility] Work Phone: No Panel Informationon 10-21 Estimated GFR (MDRD) Amer 109 mL/min >60 [facility] Work Phone: [phone] Comment on above: GFR Calc Estimated GFR (MDRD) Non-Af Amer 90 mL/min >60 [facility] Work Phone: [phone] Comment on above: Non- GFR Calc Thyroid Stimulating Hormone (TSH) 1.73 uIU/mL 0.358-3.74 [facility] Work Phone: Valproic Acid (Depakene) Level 43 ug/mL 50-100 [facility] Work Phone: [phone] Platelets bldon 10-21-2021 Platelets (Bld) [#/Vol] 160 10*3/uL 150-450 [facility] Work Phone: [phone] Review by pathologiston 09-23 Pathologist review Charan (Unsp spec) [Interp] Reviewed [facility] Work Phone: [phone] Comment on above: Previous reported re sult: Jessie mcguire Edited by: ALONSO on 10/24/21:1435Severe Microcytic anemia.Clinical correlation necessary.Bryson Anaya M.D. 10/24/21 AMENDED REPORT 10/24/21 1435 PATH REV previously reported as: February shayla Serum or plasma albumin claudette urement (mass/volume)on 10-21-2021 Albumin [Mass/Vol] 2.3 g/dL 3.2-5.0 [facility] Work Phone: [phone] Serum or plasma albumin/glob ulin mass ratioon 10-21-2021 Albumin/Globulin [Mass ratio] 0.7 {ratio} 0.9-2.4 [facility] Work Phone: [phone] Serum or plasma calcium claudette urement (mass/volume)on 10-21-2021 Calcium [Mass/Vol] 7.9 mg/dL 8.5-10.1 [facility] Work Phone: [phone] Serum or plasma cholesterol in HDL measurement (mass/volume)on 10-21-2021 Cholesterol in HDL [Mass/Vol] 50 mg/dL [facility] Work Phone: [phone] Comment on above: The drugs N-Acetylcy steine and Metamizole may falsely depress this assay. Reference Range HDL <40 mg/dL Low HDL Cholesterol HDL >or= 60 mg/dL High HDL Cholesterol Serum or plasma cholesterol in VLDL measurement (mass/volume)on 10-21-2021 Cholesterol in VLDL [Mass/Vol] 33 mg/dL 5-40 [facility] Work Phone: Serum or plasma creatinine m easurement (mass/volume)on 10-21-2021 Creatinine [Mass/Vol] 0.68 mg/dL 0.55-1.02 [facility] Work Phone: Comment on above: The validity of the calculated GFR & GFRAA in patients over 70 years has not been determined. Clinical correlation is essential. Serum or plasma low density lipoprotein (LDL) cholesterol measurement (mass/volume)on 10-21-2021 Cholesterol in LDL [Mass/Vol] 38 mg/dL 0-130 [facility] Work Phone: Serum or plasma urea nitroge n measurement (mass/volume)on 10-21-2021 Urea nitrogen [Mass/Vol] 10 mg/dL 7-18 [facility] Work Phone: Thin prep Papanicolaou smear with manual screeningon 10-21-2021 Thin prep Papanicolaou smear with manual screening 3+ [facility] Work Phone: Thin prep Papanicolaou smear with manual screening 18 U/L 15-37 [facility] Work Phone: Thin prep Papanicolaou smear with manual screening 9 5-15 [facility] Work Phone: CNPNon 10-17-2021 [facility] Telephone ([employer]) ELBA DIAZ ([id number]) 1950 F T Date Time Provider Department 10/17/21 MARCUS TIERNEY [facility] During your visit today, we recorded the following information about you: Joe Youngblood RN 10/17/2021 12:53 PM Signed Start of care form on Dr. Tierney's desk. Allergies As of Date: 10/17/2021 Noted Allergy Reaction CODEINE 03/26/2017 14 - Other: See Comments Comments: nausea Date Reviewed: 02/16/2021 Reviewed by: Liz Maravilla RN - Fully Assessed Reason for Visit: Forms [913] Cmt: [facility] Prescriptions as of 10/17/2021 - citalopram (CELEXA) 40 mg tablet TAKE 1 TABLET BY MOUTH EVERY DAY - baclofen (LIORESAL) 20 mg tablet TAKE 1 TABLET BY MOUTH THREE TIMES A DAY - divalproex DR (DEPAKOTE) 250 mg EC tablet Take 3 tablets by mouth twice daily. - MAGNESIUM OXIDE ORAL Take 250 mg by mouth once daily. - L-LYSINE ORAL Take 1,000 mg by mouth once daily. - alendronate (FOSAMAX) 70 mg tablet TAKE 1 TABLET BY MOUTH ONE TIME A WEEK. IN MORNING WITH GLASS OF WATER, ON AN EMPTY STOMACH, NOTHING BY MOUTH OR LYING DOWN FOR 30 MINUTES. - gabapentin (NEURONTIN) 400 mg capsule Take 2 capsules by mouth three times daily for 30 days. - clopidogrel (PLAVIX) 75 mg tablet Take 1 tablet by mouth once daily. - atorvastatin (LIPITOR) 80 mg tablet TAKE 1 TABLET BY MOUTH EVERY DAY - [facility] Blue-Sod Jerk-KxBxl-Kht (URIBEL) 118-10-40.8-36 mg Take 1 capsule by mouth once daily. - levothyroxine (SYNTHROID) 125 mcg tablet TAKE 1 TABLET BY MOUTH EVERY MORNING BEFORE BREAKFAST - bethanechol (URECHOLINE) 25 mg tablet Take 1 tablet by mouth three times daily. UNTIL EFFECTIVE (MAX DOSE 50MG) - estradiol (ESTRACE) 0.01 % (0.1 mg/gram) vaginal cream Use 1 g vaginally two times a week. - ketoconazole (NIZORAL) 2 % cream Apply to affected area twice daily. - aspirin, enteric coated (ASPIR-81) 81 mg EC tablet Take 81 mg by mouth once daily. - calcium carbonate-vitamin D3 (CALCIUM 500+D) 500 mg(1,250mg) -400 unit chewable tablet Take 1 tablet by mouth twice daily. - estradiol (VIVELLE-DOT) 0.05 mg/24 hr Apply 1 Patch as directed one time a week. - predniSONE (DELTASONE) 5 mg tablet Take 15 mg by mouth once daily. - rizatriptan (MAXALT) 5 mg tablet Take 5 mg by mouth as needed. May repeat in 2 hours if needed - cgmmbqi-ianwwlpx-gbtomz ital (FIORINAL) capsule Take 1 capsule by mouth every 8 hours as needed. Meds Comments as of 02/12/2021: Family bring in list of medications to update med list 02/12/2021 Problem List As Of Date 10/17/2021 Noted Resolved Endometriosis [N80.9] Colon polyp [K63.5] Hypothyroid [E03.9] Fatigue [R53.83] Mild depression (HCC) [F32.A] Polyneuropathy [G62.9] 07/22/2012 Aneurysm (HCC) [I72.9] Multiple lung nodules on CT [R91.8] Pure hypercholesterolemia [E78.00] 03/26/2017 Impaired functional mobility, balance, gait, an*01/26/2020 Left arm weakness [R29.898] 02/11/2020 Impaired mobility and ADLs [Z74.09, Z78.9] 02/11/2020 Cerebrovascular accident (CVA) (HCC) [I63.9] 03/05/2020 Spasticity [R25.2] 03/05/2020 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] 03/05/2020 Hypertension, essential [I10] 03/05/2020 DAVEY (acute kidney injury) (HCC) [N17.9] 05/14/2020 02/08/2021 Hypotension [I95.9] 05/14/2020 Acute renal insufficiency [N28.9] 05/16/2020 02/08/2021 Seizure (HCC) [R56.9] 05/16/2020 Headache [R51.9] 02/01/2021 Arm paresthesia, right [R20.2] 02/07/2021 Hemiparesis of left nondominant side as late ef*02/08/2021 Encounter Status:Closed by JOE YOUNGBLOOD on 10/17/21 [facility] Jessica 10-11-2021 [place] Telephone ([facility]) ELBA DIAZ ([id number]) 1950 F [facility] Date Time Provider Department 10/11/21 MARCUS TIERNEY During your visit today, we recorded the following information about you: Trinity Henderson RN 10/11/2021 9:29 AM Signed [facility] form on Dr. Tierney's desk Naomi Paul Blanchard 11/04/2021 2:57 PM Signed Forms faxed on 11.01.2021 Allergies As of Date: 10/11/2021 Noted Allergy Reaction CODEINE 03/26/2017 14 - Other: See Comments Comments: nausea Date Reviewed: 02/16/2021 Reviewed by: Liz Maravilla RN - Fully Assessed Reason for Visit: Forms [913] Prescriptions as of 11/04/2021 - clopidogrel (PLAVIX) 75 mg tablet Take 1 tablet by mouth once daily. - gabapentin (NEURONTIN) 100 mg capsule Take 1 capsule by mouth twice daily for 60 days. - pantoprazole DR (PROTONIX) 40 mg tablet Take 1 tablet by mouth once daily. - ferrous sulfate 325 mg (65 mg iron) tablet Take 1 tablet by mouth daily with breakfast. - docusate sodium (COLACE) 100 mg capsule Take 1 capsule by mouth once daily. Take while taking protonix - Albuterol Sulfate 0.63 mg/3 mL nebulizer solution Use 1 Ampule via nebulizer every 4 hours as needed for wheezing/shortness of breath. - levETIRAcetam (KEPPRA) 250 mg tablet Take 250 mg by mouth twice daily. - acetaminophen-codeine (TYLENOL-CODEINE #3) 300-30 mg per tablet Take 1 tablet by mouth four times daily as needed for pain. - diclofenac (VOLTAREN) 1 % topical gel Apply 4 g to affected area four times daily. Left knee - amitriptyline (ELAVIL) 50 mg tablet Take 50 mg by mouth daily at bedtime. - cholestyramine-sucrose (QUESTRAN) 4 gram powder Take by mouth twice daily with meals. - rOPINIRole (REQUIP) 1 mg tablet Take 1 mg by mouth daily at bedtime. - acetaminophen (TYLENOL) 500 mg tablet Take 1,000 mg by mouth every 6 hours as needed for pain. - loperamide (IMODIUM A-D) 2 mg cap(s) Take 2 mg by mouth four times daily as needed for diarrhea. - baclofen (LIORESAL) 20 mg tablet TAKE 1 TABLET BY MOUTH THREE TIMES A DAY - MAGNESIUM OXIDE ORAL Take 250 mg by mouth once daily. - L-LYSINE ORAL Take 1,000 mg by mouth once daily. - atorvastatin (LIPITOR) 80 mg tablet TAKE 1 TABLET BY MOUTH EVERY DAY - [facility] Blue-Sod Bney-HfZcb-Zmc (URIBEL) 118-10-40.8-36 mg Take 1 capsule by mouth once daily. - levothyroxine (SYNTHROID) 125 mcg tablet TAKE 1 TABLET BY MOUTH EVERY MORNING BEFORE BREAKFAST - ketoconazole (NIZORAL) 2 % cream Apply to affected area twice daily. - aspirin, enteric coated (ASPIR-81) 81 mg EC tablet Take 81 mg by mouth once daily. - calcium carbonate-vitamin D3 (CALCIUM 500+D) 500 mg(1,250mg) -400 unit chewable tablet Take 1 tablet by mouth twice daily. - estradiol (VIVELLE-DOT) 0.05 mg/24 hr Apply 1 Patch as directed one time a week. - predniSONE (DELTASONE) 10 mg tablet Take 10 mg by mouth once daily. - rizatriptan (MAXALT) 5 mg tablet Take 5 mg by mouth as needed. May repeat in 2 hours if needed; do not exceed 30mg in 24hours Facility-Administered Medications as of 11/04/2021 - phenazopyridine 200 mg tab(s) (PYRIDIUM, GERIDIUM) - acetaminophen 1,000 mg tab(s) (TYLENOL) - divalproex DR 500 mg tab(s) (DEPAKOTE) - gabapentin 100 mg cap(s) (NEURONTIN) - levETIRAcetam 250 mg tab(s) (KEPPRA) - atorvastatin 80 mg tab(s) (LIPITOR) - predniSONE 10 mg tab(s) (DELTASONE) - ferrous sulfate 325 mg tab(s) - aspirin, enteric coated 81 mg tab(s) - clopidogrel 75 mg tab(s) (PLAVIX) - pantoprazole DR 40 mg tab(s) (PROTONIX) - levothyroxine 125 mcg tab(s) (SYNTHROID) - enoxaparin 40 mg injection (LOVENOX) - NaCl 0.9% iv flush bag - sodium chloride 0.9 % (flush) 3-5 mL (BD POSIFLUSH) - albuterol 2.5 mg /3 mL (0.083 %) 2.5 mg (PROVENTIL) Meds Comments as of 02/12/2021: Family bring in list of medications to update med list 02/12/2021 Problem List As Of Date 10/11/2021 Noted Resolved Endometriosis [N80.9] Colon polyp [K63.5] Hypothyroid [E03.9] Fatigue [R53.83] Mild depression (HCC) [F32.A] Polyneuropathy [G62.9] 07/22/2012 Aneurysm (HCC) [I72.9] Multiple lung nodules on CT [R91.8] Pure hypercholesterolemia [E78.00] 03/26/2017 Impaired functional mobility, balance, gait, an*01/26/2020 Left arm weakness [R29.898] 02/11/2020 Impaired mobility and ADLs [Z74.09, Z78.9] 02/11/2020 Cerebrovascular accident (CVA) (HCC) [I63.9] 03/05/2020 Spasticity [R25.2] 03/05/2020 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] 03/05/2020 Hypertension, essential [I10] 03/05/2020 DAVEY (acute kidney injury) (HCC) [N17.9] 05/14/2020 02/08/2021 Hypotension [I95.9] 05/14/2020 Acute renal insufficiency [N28.9] 05/16/2020 02/08/2021 Seizure (HCC) [R56.9] 05/16/2020 Headache [R51.9] 02/01/2021 Arm paresthesia, right [R20.2] 02/07/2021 Hemiparesis of left nondominant side as late ef*02/08/2021 Encounter Number: [id number] (more content not included)... Normal [facility] DIAGNOSTIC LTon 08-06-20 [facility] DIAGNOSTIC LT Final Report DATE OF EXAM: Aug 06 2020 1:32PM ULYSSES 0621 - [facility] DIAGNOSTIC LT / PROCEDURE REASON: Abnormal mammogram Physician Interpretation #[id number] - [facility] DIAGNOSTIC LT UNILATERAL LEFT DIGITAL DIAGNOSTIC MAMMOGRAM WITH CAD: 08/06/2020 HISTORY: Abnormal Mammogram\ Patient returns for abnormal left mammogram. RESULT: TECHNIQUE: The study was acquired using full field digital technology and interpreted from soft copy. Current study was also evaluated with a Computer Aided Detection (CAD). Comparison is made to exams dated: 07/21/2020 mammogram - [facility], 12/31/2017 mammogram, 09/25/2016 mammogram, and 08/07/2013 mammogram - [facility]. There are scattered fibroglandular elements in left breast. There is a stable benign focal asymmetry in the left breast upper outer aspect middle depth. This is stable since 2012 in keeping with benignity. No other significant masses or calcifications are seen in the breast. IMPRESSION: BENIGN FINDING There is no mammographic evidence of malignancy. A 1 year screening mammogram is recommended. Nadine soriano/mark:08/06/2020 19:04:55 Attending Technologist(s): Jorge Alberto Johns(R)(M), [facility] [employer] Attendant(s): RT Shane(R)(M), [facility] Mammogram BI-RADS: 2 Benign finding Multiple national specialty organizations have released breast cancer screening guidelines for women at average risk for developing breast cancer - guidelines that are based on both evidence and opinion, yet differ on when to start and how often to screen for breast cancer. With representation from Breast Imaging, Internal Medicine, Women's Health, Family Medicine, and Medical/Surgical Oncology, the [facility] has carefully reviewed the data and reached the following consensus: 1) All women should engage in shared decision-making with their providers to decide when to start and how often to screen; 2) All women should have the opportunity to start screening mammography at age 40; 3) For women ages 45-55, we recommend annual screening mammograms; 4) For women ages 55 and over, we support both the transition from an annual to a biennial interval if this aligns more with patient's values and preferences, or continuation with annual screening; 5) All women should discuss with their providers when to stop screening mammograms. Air And Water Tester: Mark Transcribe Date/Time: Aug 06 2020 1:27P Dictated by : NADINE DAVILA MD This examination was interpreted and the report reviewed and electronically signed by: NADINE DAVILA MD on Aug 06 2020 7:04PM EST Normal [facility] SLEEP RPTSon 07-23-2020 SLEEP RPTS Patient Name:VICTORIANO DIAZ Admit/Service Date: 07/09/20 Patient Acc#: [id number] Patient MR#: [id number] : 1950 Age: 70 Sex: F Attending Physician: Kristian Henry Dictating Physician: Carrie Parekh MD ATTENDING PHYSICIAN: Kristian Henry M.D. DATE OF : 1950 AGE: 70 GENDER: DATE OF SERVICE: 07/22/2020 REFERRING PHYSICIAN: Dr. Henry. HISTORY: This is a 70-year-old female who weighs 150 pounds with a BMI of 28, ho has been found to have obstructive sleep apnea with an AHI of 62. She also has a history of stroke, hypertension, depression, migraine, thyroid disease, and seizures. MEDICATIONS: Include lisinopril, baclofen, gabapentin, ferrous sulfate, citaloram, levetiracetam, aspirin, clonidine, alendronate, vitamins, and supplements. SLEEP ARCHITECTURE: Raw data has been reviewed by the interpreting physician. Standard CPAP titration techniques were performed. The patient slept for 243 minutes out of 6.6 hours with a sleep efficiency of 63%. Sleep latency was 49 minutes. Wake after sleep onset was 105 minutes. REM latency was 387 minutes. There was a 4 minutes of stage 1 sleep, 230 minutes of N2 sleep. No slow-wave sleep and 9 minutes of REM sleep recorded. There were 36 respiratory arousals and 40 spontaneous arousals with a total arousal index of 21. CARDIORESPIRATORY: There were 30 central apneas, 2 obstructive apneas, and 14 ypopneas with an AHI of 11.4. The lowest oxygen saturation was 82%. An EKG was described as normal sinus rhythm with the maximum heart rate of 227 beats per minute and minimum heart rate of 47 beats per min. TITRATION INFORMATION: Multiple pressures were tried by the patient during thestudy. She was switched to a BiPAP at ST mode on due to central events that started to emerge with higher CPAP pressures. Snoring was controlled on all pressures. The optimal pressure was on BiPAP of 14/10 cm of H2O. She slept for 30 minutes at this pressure with 9 minutes in REM sleep. The AHI at this pressure setting was 0 and the lowest oxygen saturation at this pressure setting is 89%. CONCLUSION: 1. Cardiac tracing revealed normal sinus rhythm. 2. BiPAP at a pressure setting of 14/10 cm of H2O, controlled apnea-hypopnea inex as well as snoring and maintained oxygen saturation at 89% or higher. DIAGNOSIS: Obstructive sleep apnea. RECOMMENDATIONS: BiPAP 14/10 cm of H2O using a medium AirFit F20 fullface maskwith heated humidity and Bi-Flex and ramp of 20 minutes is recommended. Follow up with a sleep medicine specialist to optimize treatment and compliance. BRENDA/GIORGIO @ 07:18 @ 16:20 # [id number] Carrie Parekh D.O. Electronically Signed Date/Time: 08/17/20 1228 [facility] SLEEP RPTSon 06-07-2020 SLEEP RPTS Patient Name:VICTORIANO DIAZ Admit/Service Date: 05/31/20 Patient Acc#: [id number] Patient MR#: [id number] : 1950 Age: 70 Sex: F Attending Physician: Jenifer Singleton Dictating Physician: Carrie Parekh MD ATTENDING PHYSICIAN: Jenifer Singleton DATE OF : 1950 AGE: 70 GENDER: DATE OF SERVICE: 05/31/2020 REFERRING PHYSICIANS: Jose Parekh DO. HISTORY: This is a 70-year-old female who complains of snoring and daytime slepiness, morning headaches, vivid dreams, restless leg while asleep. She has a history of stroke, hypertension, depression, migraine, thyroid disease, seizures. MEDICATIONS: Include lisinopril, baclofen, gabapentin, ferrous sulfate, citaloram, levetiracetam, Clonidine, alendronate, among others. SLEEP ARCHITECTURE: Standard statin techniques for overnight diagnostic polysonogram was performed. The raw data has been reviewed by the interpreting physician. The patient slept a total of 357 minutes with a sleep efficiency of 96%. Sleep latency was 9 minutes and wake after sleep onset was 5 minutes. Good sleep included 2 minutes of N1, 304 minutes of N2, and 2 minutes of N3, and 49 minutes of REM sleep. REM latency was 174 minutes. They were minimal periodic limb movements. A total arousal index of 47, which were predominantly respiratory related. CARDIORESPIRATORY: There were 281 central apneas, 45 obstructive apneas, 8 mixd apneas, 34 hypopneas, which resulted in a total AHI of 62. The longest central apnea was 34 seconds and the longest hypopnea was 46 seconds. Oxygen desaturations were seen with ease down to 87%. The patients EKG was described as normal sinus rhythm with a maximum heart rate of 86 and a minimum heart rate of 59 beats per minute. CONCLUSION: Sleep apnea with both central and obstructive components with a toal AHI in the severe range at 64. This is associated with moderate oxygen desaturation. DIAGNOSES: 1. Obstructive sleep apnea. 2. Central sleep apnea. RECOMMENDATIONS: 1. The patient needs a dedicated BiPAP titration study and will likely need bacup rate to control her central apneas. 2. Weight reduction and avoiding supine sleep should also be encouraged. The ptient was supine for the entire study. 3. Follow up with a sleep medicine specialist to optimize treatment plan and dicussed to improve sleep hygiene. BRENDA/GIORGIO @ 08:28 @ 11:50 # [id number] Carrie Parekh D.O. Electronically Signed Date/Time: 06/21/20 0958 [facility] CASE MANAGEMon 05-19-2020 CASE MANAGEM HNO ID: [id number] Author: Emmie Horn Service: Care Management Author Type: ? Type: Care Mgt Progress Note Filed: 05/19/2020 11:28 AM Note Text: CARE MANAGEMENT PROGRESS NOTE SERVICE DATE: 05/19/2020 SERVICE TIME: 1010 LOS: 3 days IMM Follow Up Copy Given: Yes Copy given to:: Patient Binding Dyer Binding Dyer Name/Relationship: Mauricio (son) Method: By Phone SIGNATURE: Emmie Horn PATIENT NAME: Elba Diaz DATE: May 19, 2020 TIME: 11:27 AM PAGER/CONTACT #: [facility] CASE MANAGEM HNO ID: [id number] Author: Yenny (Rn) MONAE Fuentes Service: Nursing Author Type: Registered Nurse Type: Care Mgt Progress Note Filed: 05/19/2020 10:10 AM Note Text: CARE MANAGEMENT DISCHARGE NOTE SERVICE DATE: 05/19/2020 SERVICE TIME: 10:08 AM LOS: 3 days Admission Date: 05/16/2020 DISCHARGE ARRANGEMENT (list agency and phone number) Discharge Arrangement: Home;Other: See Comment(outpatient PT) Provider Name: Dr Shannon Phone: . CAREGIVER ASSESSMENT: HANDOFF COMMUNICATION: Handoff to: (Rn to give d/c instructions at bedside) TRANSPORTATION ARRANGEMENTS: Transportation Arrangements: Car ADDITIONAL CONTACT RESOURCES: na Pt medically ready for d/c with d/c orders complete. Pt going home with to transport home. Pt will be doing PT/OT outpatient at [facility] outpatient location. Order in epic. RN to give d/c instructions at bedside SIGNATURE: Yenny Fuentes RN PATIENT NAME: Elba Diaz DATE: May 19, 2020 TIME: 10:07 AM PAGER/CONTACT #: [phone] [facility] NURSING PROGon 05-19-2020 NURSING PROG HNO ID: [id number] Author: Maricruz BarronRn) MONAE Vazquez Service: Nursing Author Type: Registered Nurse Type: Nursing Progress Note Filed: 05/19/2020 4:29 AM Note Text: Post Fall Assessment Elba Diaz [id number] Witnessed: No How did fall occur: Getting out of bed/chair Location: Patient room Contributing factors: confused/disoriented, lost balance and failure to call Brief factual description: Pt found on sitting on the ground leaned up beside her bed. VSS. Doctor was paged to bedside. She was disoriented to place, which is not unusual for nighttime for her, and was reoriented to surroundings. She was placed back in bed. Initial Physical Assessment Injury: No Patient hit head: Unknown - Initiate Neuro Checks Immediate actions taken: Assisted back to bed / chair Name of LIP notified: Stew Ferraro CNP Notify family as appropriate: Son, Mauricio Diaz - attempted call but VM not set up to leave call back number Post fall interventions: Fall Huddle Conducted, Bed Alarm On and My Safety Plan Updated This note was completed by:Maricruz Vazquez RN [facility] PROGRESSon 05-19-2020 PROGRESS HNO ID: [id number] Author: Gutierrez Shannon Service: Hospital Medicine Author Type: Physician Type: Progress Notes Filed: 05/19/2020 9:48 AM Note Text: DEPARTMENT OF HOSPITAL MEDICINE PROGRESS NOTE SERVICE DATE: 05/19/2020 SERVICE TIME: 9:17 AM Hospital Medicine/Primary Attending: Gutierrez Shannon, DO NIGHT AND WEEKEND COVERAGE: After 7pm please page [phone] CHIEF COMPLAINT: I'm ready to go home SUBJECTIVE: Pt seen and examined. Feels like she wants to go home today. States that she melted out of bed last night. Didn't fall. Denies any pain. Pt denies chest pain, shortness of breath, nausea, vomiting, or diarrhea. OBJECTIVE: PHYSICAL EXAM: BP 160/92[rn notified[ Pulse 78 Temp (Src) 97.5 (Oral) Resp 18 Ht 5' 4 (1.63m) Wt 160 lb 4.8 oz (72.7kg) SpO2 100% BMI 27.50 kg/(m2). O2 Therapy: Room Air General - AANDOx3, NAD, Calm CV - RRR S1 S2, No M/R/G RESP - CTA B/L No wheezes, ronchi, rales ABD - soft, NT, ND +BS EXT - no gross joint deformity, no clubbing, cyanosis, edema NEURO - left sided hemiparesis from old CVA MEDICATIONS: Current Facility-Administered Medications Medication Dose Route Frequency - levETIRAcetam iv piggyback 1,000 mg in NaCl (iso-osmotic) 100 mL (KEPPRA) 1,000 mg INTRAVENOUS BID - aspirin 81 mg chewable tab(s) 81 mg ORAL DAILY - heparin 5,000 Units injection 5,000 Units SUBCUTANEOUS q 12 H - levothyroxine 125 mcg tab(s) (SYNTHROID) 125 mcg ORAL DAILY (6 AM) - citalopram 20 mg tab(s) (CeleXA) 20 mg ORAL DAILY - predniSONE 15 mg tab(s) (DELTASONE) 15 mg ORAL DAILY - gabapentin 600 mg cap(s) (NEURONTIN) 600 mg ORAL TID - atorvastatin 80 mg tab(s) (LIPITOR) 80 mg ORAL AT BEDTIME - cloNIDine HCl 0.1 mg tab(s) (CATAPRES) 0.1 mg ORAL BID - ferrous sulfate 325 mg tab(s) 325 mg ORAL DAILY WITH BREAKFAST - acetaminophen 300 mg - codeine 30 mg tablet (TYLENOL #3) 1 tablet ORAL q 6 H PRN - acetaminophen 650 mg tab(s) (TYLENOL) 650 mg ORAL q 6 H PRN DATA: Diagnostic tests reviewed for today's visit: CBC: No results for input(s): WBC, RBC, HB, HCT, PLT, MCV, MCH, MPV, RDW in the last 24 hours. Coags: No results for input(s): PT, INR, APTT in the last 24 hours. BMP: No results for input(s): NA, K, CHLOR, CO2, BUN, CREAT, GLUC in the last 24 hours. CMP: No results for input(s): NA, K, CHLOR, CO2, BUN, CREAT, GLUC, TPROT, CA, MG, ALBUMIN, TBILI, ALKPHOS, ALT, AST, ANION in the last 24 hours. Cardiac Enzymes: No results for input(s): CK, MB, CKMB, TROPT in the last 24 hours. Liver Function, Amylase, Lipase: No results for input(s): TPROT, ALB, ALT, AST, ALKPHOS, TBILI, AMYLASE, LIPASE, LACTATE in the last 24 hours. MG/PHOS: No results for input(s): MG, P in the last 24 hours. Renal Panel: No results for input(s): ALBUMIN, CREAT, BUN, GLUC, CA, P, CHLOR, K, CO2, NA in the last 24 hours. Heme: No results for input(s): RETICP, ABSRETIC, LD, EMMETT, FE, TIBC, TRANSFERSAT in the last 24 hours. No results found for: UALBCR Assessment/Plan 1. Seizure - neuro concerned for post stroke epilepsy. EEG reviewed. Await neuro final recs. Off ultram/wellbutrin and started on Celexa per neuro. Also increased gabapentin 2. Recent UTI - should finish abx on Sunday 3. History of CVA (left MCA infarct) - con't with home meds 4. Hypothyroidism - con't with synthroid 5. CKD 3- stable 6. Debility - outpatient PT/OT 7. Hypokalemia - replaced po 8. Chronic pain - off ultram. Follow up with Pain management. Tylenol 3 as needed Spoke with Aliya from neuro. No further changes in meds and ok to continue with keppra with close follow up Medication and Non-Pharmacologic VTE Prophylaxis/Anticoagula nts Anticoagulant AND Antiplatelet Medications (From admission, onward) Start Dose Route Frequency Ordered Stop 05/17/20 0900 aspirin 81 mg chewable tab(s) 81 mg ORAL DAILY 05/16/20 2339 -- 05/17/20 0000 heparin 5,000 Units injection (Medical Risk Categories) 5,000 Units SUBCUTANEOUS EVERY 12 HOURS 05/16/20 2339 -- 05/16/20 2345 pneumatic compression stockings (mi,co) 05/16/20 2345 activity - mobilize patient ([place]) Lines, Drains, and Airways Line Peripheral 05/18/20 2230 Short Right Wrist 20 Gauge less than 1 day VTE Prophylaxis: Heparin 5000 units Sub Q BID Disposition: Home Functional Status Prior to Admit: Medical Necessity for Continued Hospitalization DC Plan of care discussed with: Patient Neuro SIGNATURE: Gutierrez Shannon DO PATIENT NAME: Elba Diaz DATE: May 19, 2020 TIME: 9:17 AM PAGER/CONTACT #: Team color pager Disclaimer: Portions of this note may have been generated using [employer] Studio voice recognition software. Reasonable efforts were made to correct any dictation errors that resulted due to the programming of this software but some may still be present. Normal [facility] PROGRESS HNO ID: [id number] Author: Stew Ferraro APRN.MANISH Service: Hospital Medicine Author Type: Nurse Practitioner Type: Progress Notes Filed: 05/19/2020 2:22 AM Note Text: Paged to bedside by nursing. Pt had a unwitnessed fall. Pt denies hitting her head or any other injury. Pt has left sided paralysis from previous CVA. At this time no imaging is warranted. Nursing to continue to monitor -fall precautions -neuro check q 2 hours x3 May 19, 2020 2:16 AM Stew Ferraro APRN.EQUIPMENT TESTER Normal [facility] THERAPY NTon 05-19-2020 THERAPY NT HNO ID: [id number] Author: Tammie Dee/Cristian Beard Service: Occupational Therapy Author Type: Occupational Therapist Type: Therapy (PT/OT/Speech/Resp) Filed: 05/19/2020 9:16 AM Note Text: Occupational Therapy Evaluation SERVICE DATE: 05/19/2020 SERVICE TIME: 814 to 837 ROOM: [place] [address] Recommended Discharge Disposition: Outpatient Occupational Therapy Anticipated Discharge Needs: Physical Assist at Home Physical Assist at Home for: Transfers;Cleaning;Laun dry;Meals;Self Care;Shopping;Transport ation Supervision at Home due to: Impaired cognition OT Recommendations to Nursing: Encourage patient participation with in-bed ADL?s;Edge of bed ADL?s;With assist of 1 person(DO NOT LEAVE ALONE AT EDGE OF BED) OT 6 Clicks Score: 15 Precautions/Activity Restrictions: Fall Risk Isolation Type: None ASSESSMENT: Patient presents after reported seizure. Patient currently requires increased assist with all ADL's and functional transfers. Requires skilled OT to maximize independence with ADL's. Recommend continued Outpatient Occupational Therapy at d/c. Patient Disposition at Start of Session: Supine in Bed;Call Sweet in Reach Patient Disposition at End of Session: Supine in Bed;Call Sweet in Reach Tolerated Full Session Occupational Therapy Problem List: Impaired Self Care;Decreased Activity Tolerance;Decreased Strength Patient /Caregiver Goals: Go Home;Care For Self Goals for Plan of Care: Grooming with: Independent Upper Body Bathing with: Independent Upper Body Dressing with: Independent Lower Body Bathing with: Minimal Assistance Lower Body Dressing with: Minimal Assistance Toilet Hygiene with: Minimal Assistance Toilet Transfer with: Minimal Assistance Tolerate (minutes of functional activity): 25 Functional Activity with: Minimal Assistance Additional Goal 1: Maximize right upper extremity strength to increase independence with ADLs Increased Awareness of Cognitive Impairments as Related to ADL's/IADL's: Demonstrated;Verbalized Rehab Potential: Good PLAN: Treatment Frequency (times per week): 5(1-5) Current admission Treatment Interventions: Self Care / Home Management;Pedro sy Plan of Care developed with: Patient TREATMENT INTERVENTIONS: Therapy Diagnosis: Decreased activities of daily living (ADL);Muscle Weakness (generalized) Interventions Provided: Evaluation;Self Custodial Management (64445) $ Evaluation-Low (45007) Billed Units: 1 unit OT Evaluation Low Complexity: Occupational Profile - Brief review of patient's medical record completed (please see current hospital course of evaluation). Occupational Performance - Pt presents with deficits in feeding, grooming, UE bathing/dressing, LE bathing/dressing, functional transfers, functional mobility, decreased safety awareness, decreased insight into deficits Complexity in Clinical Decision Making - The extent of clinical reasoning was low, number of treatment options limited, no need for modifications during the evaluation process, no comorbidities present to affect patient's occupational performance. Self Custodial Management (56559) Treatment Minutes: 8 1 unit Skilled Intervention(s): Cues for sequencing in hygiene tasks, patient completed grooming task at edge of bed with minimal assist and cues to stay on task Provided instruction, cuing and facilitation for upper body dressing, provided cues for proper sequencing for upper body dressing task. Education in role of OT in acute care setting, patient with good understanding Discussed home safety with patient, demo's good understanding Provided cues for proper hand placement during all functional transfers Provided cues for safety during all ADL tasks completed Total Timed Code Treatment Minutes: 8 Total Treatment Time (minutes): 23 SUBJECTIVE: Current Hospital Course: Chart reviewed; 70 y.o. female, presented after reported seizure. Reason for Occupational Therapy Consult: eval and treat Relevant Past Medical History: R MCA CVA with residual left weakness Patient Report: Patient seen bedside, agreeable to OT, no complaints this a.m. Home Environment Patient Lives With: Family(son and his fiance) Assistance Available: 24 Hour Entry To Home: Ramp Number Of Stairs To Bed/Bath: 0 Tub/Shower Type: tub Laundry: family can do laundry Equipment Owned: Commode-Bedside;Grab Bars-Shower;Grab Bars-Toilet;Hand Held Shower;Hospital Bed;Wheelchair Prior Functional Level: Required Assistance Assistance Required With: Transfers;Cleaning;Laun dry;Meals;Self Care;Shopping;Transport ation Prior Functional Level Comments: Pt provided history and family corroborated. She is able to transfer with min-mod A to/from a chair or toilet but has a great deal of difficulty walking. Was working with outpatient PT and OT. She uses a wheelchair to get out in the community, but she has difficulty propelling it herself due to her residual stroke deficits. She states she is normally able to dress most of herself and bathe herself OBJECTIVE: Cognition/Communication Deficits Responsiveness: Alert Follows Commands: 2-step Commands;Cueing Needed Cueing to Follow Commands: Minimum Executive Function Deficits: Judgement;Safety Awareness Judgement Deficit: Minimal impairment Safety Awareness Deficit: Minimal impairment CURRENT FUNCTIONAL STATUS: Current Activities of Daily Living Assist Level Feeding Set Up Grooming Set Up Bathing Upper Body Minimal Assistance Bathing Lower Body Maximal Assistance Dressing Upper Body Minimal Assistance Dressing Lower Body Maximal Assistance Toileting Moderate Assistance Instrumental Activities of Daily Living Assist Level Meal/Beverage Prep Light Cleaning Laundry Medication Management with Strategies Functional Mobility Assist Level Rolling Supine to Sit Minimal Assistance Sit to Supine Minimal Assistance Scooting Moderate Assistance Sit to Stand Stand to Sit Bed to Chair Toilet/Commode Functional Mobility Range of Motion: Upper Extremity Comments R Upper Extremity ROM Comments: WFL L Upper Extremity ROM Comments: PROM WFL Strength: Upper Extremity Comments Right Upper Extremity Strength Comments: 4/5 Left Upper Extremity Strength Comments: 0/5 Activity Tolerance: Sitting Activity Sitting Activity: grooming tasks at edge of bed Sitting Activity Tolerance (in minutes): 5 Please see discipline specific clinical documentation flowsheet for complete details for this therapy evaluation/treatment. 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 Will follow-up as able. Medical Pathology Teacher Signature: Gita Valdez To contact the Spiritual Care Department: Please call [phone] or Page the On-Call Medical Pathology Teacher at pager [phone] Thank you for the opportunity to be of service. This is an electronically created document. IF PRINTED, PLEASE DO NOT REMOVE FROM THE CHART OR MODIFY PRINTED COPY. Normal [facility] Basic Metabolic Panelon 07-2 Anion gap [Moles/Vol] 11 mmol/L Normal 9-[address] [facility] Comment on above: Performed By: #### B MP ####[facility] [place], [place] [address] Calcium [Mass/Vol] 9.2 mg/dL Normal 8.5-10.2 [facility] Comment on above: Performed By: #### B MP ####[facility] [place], [place] [address] Chloride [Moles/Vol] 105 mmol/L Normal 97-105 [facility] Comment on above: Performed By: #### B MP ####[facility] [place], [place] [address] CO2 Blood 23 mmol/L Normal 22-30 [facility] Comment on above: Performed By: #### B MP ####[address] [address] Creatinine [Mass/Vol] 1.05 mg/dL High 0.58-0.[address] [facility] Comment on above: Performed By: #### B MP ####[address] [address] Glucose [Mass/Vol] 78 mg/dL Normal 74-99 [facility] Comment on above: Result Comment: The [place] Diabetes Association (ADA) provides guidance for cutoff values for fasting glucose and random glucose. The ADA defines fasting as no caloric intake for at least 8 hours.Fasting plasma glucose results between 100 to 125 mg/dL indicate increased risk for diabetes (prediabetes). Fasting plasma glucose results greater than or equal to 126 mg/dL meet the criteria for diagnosis of diabetes. In the absence of unequivocal hyperglycemia, results should be confirmed by repeat testing. In a patient with classic symptoms of hyperglycemia or hyperglycemic crisis, random plasma glucose results greater than or equal to 200 mg/dL meet the criteria for diagnosis of diabetes. Reference: Standards of Medical Care in Diabetes 2016; [place] [employer] Association. Diabetes Care. 2016;39(Suppl 1). Performed By: #### B MP ####[address] [address] Potassium [Moles/Vol] 3.6 mmol/L Low 3.7-5.[address] [facility] Comment on above: Performed By: #### B MP ####[facility] [place] [address] Sodium [Moles/Vol] 139 mmol/L Normal 136-144 [facility] Comment on above: Performed By: #### B MP ####[place] [address] Urea nitrogen [Mass/Vol] 14 mg/dL Normal 7-21 [facility] Comment on above: Performed By: #### B MP ####[place] [address] Hemogramon 05-18-2020 Erythrocyte distribution width (RBC) [Ratio] 13.2 % Normal 11.7-14.4 [facility] Comment on above: Performed By: #### C BC1 ####[place] [address] Hematocrit (Bld) [Volume fraction] 31.7 % Low 34.1-44.9 [facility] Comment on above: Performed By: #### C BC1 ####[place] [address] Hemoglobin (Bld) [Mass/Vol] 10.8 g/dL Low 11.2-15.7 [facility] Comment on above: Performed By: #### C BC1 ####[place] [address] MCH (RBC) [Entitic mass] 33.1 pg High 25.6-32.2 [facility] Comment on above: Performed By: #### C BC1 ####[place] [address] MCHC (RBC) [Mass/Vol] 34.1 % Normal 31.6-34.[address] [facility] Comment on above: Performed By: #### C BC1 ####[place] [address] MCV (RBC) [Entitic vol] 97.2 fL High 79.4-94.8 [facility] Comment on above: Performed By: #### C BC1 ####[facility] [place], [place] [address] Platelet mean volume (Bld) [Entitic vol] 9.5 fL Normal 9.4-12.3 [facility] Comment on above: Performed By: #### C BC1 ####[facility] [place], [place] [address] Platelets (Bld) [#/Vol] 205 thou/cmm Normal 182-369 [facility] Comment on above: Performed By: #### C BC1 ####[facility] [place], [place] [address] RBC (Bld) [#/Vol] 3.26 mil/cmm Low 3.93-5.22 [facility] Comment on above: Performed By: #### C BC1 ####[facility] [place], [place] [address] RDW SD 47.1 fl High 36.4-46.3 [facility] Comment on above: Performed By: #### C BC1 ####[facility] [place], [place] [address] WBC (Bld) [#/Vol] 7.08 thou/cmm Normal 3.98-10.04 [facility] Comment on above: Performed By: #### C BC1 ####[place] [id number] MDRD GFRon 05-18-2020 GFR/1.73 sq M predicted among non-blacks MDRD (S/P/Bld) [Vol rate/Area] 51.95 mL/min/{1.73_m2} Normal >60mL/min/1. 73m2 [facility] Comment on above: Result Comment: If t he patient is , multiply the result by 1.210. Performed By: #### G FR #### [facility] [address] [place] [id number] PROGRESSon 05-18-2020 PROGRESS HNO ID: [id number] Author: Leonel Lund Service: Hospital Medicine Author Type: Physician Type: Progress Notes Filed: 05/18/2020 2:22 PM Note Text: Hospital Medicine Progress Note Patient Name: Elba Diaz Admission Date: 05/16/2020 Reason for Visit: Seizure, UTI IMPRESSION AND PLAN: Active Hospital Problems Diagnosis - Seizure (HCC) 1. Change in mental status concerning for seizure, patient S/P EEG and neurology on board also started on Keppra. Holding medication that will lower her seizure threshold including tramadol and Welbutrin. ? 2. Recent UTI for which patient still oral cefdinir and will require 3 more days (last dose on Sunday). ? 3. History of severe left MCA infarct. Continue home medication ? 4. Hypothyroidism on Synthroid. ? 5. Chronic kidney disease stage III around baseline. ? 6. Debility plan for therapy. ? 7. Hypokalemia replace with oral potassium. 8. Chronic pain syndrome for which patient was on Ultram, supposed to follow-up with pain management as an outpatient, will start Tylenol# 3 for now and monitor as patient has been on that in the past and did okay according to oxrpykir-xu-haq. Patient Checklist Prophylaxis: VTE - Yes Code Status: Code Status: Not on file Disposition: Home in the next 24 hour Leonel Lund MD Interval History: Patient was seen and examined for seizure which has been stable on current medication, neurology recommended increasing her gabapentin but due to chronic kidney disease she is on maximum dose of 600 3 times a day, is also on Toprol waiting for final neurology recommendation. Regarding her urinary infection patient finished her cefdinir on Sunday. Had long discussion with patient and [id number] who is the main caregiver regarding her chronic pain that resulted from her previous stroke for which patient has been on Ultram but due to seizure that was discontinued. Plan to try for Tylenol No. 3 and the patient will require to follow-up with pain management as an outpatient (OARRS report reviewed). PERTINENT ROS: Temp Av.8 ?C (98.2 ?F) Min: 36.7 ?C (98.1 ?F) Max: 36.8 ?C (98.2 ?F) Pulse Av.8 Min: 70 Max: 90 No data recorded Cuff BP Min: 121/81 Max: 140/70 Pain Level: 1 PHYSICAL EXAM: BP 129/77 Pulse 70 Temp 36.8 ?C (98.2 ?F) (Oral) Resp 16 Ht 162.6 cm (5' 4) Wt 72.7 kg (160 lb 4.8 oz) SpO2 97% BMI 27.52 kg/m? PHYSICAL EXAMINATION: General appearance: Patient is sitting in bed in no acute respiratory distress. Awake, alert, oriented *3. Skin: Normal temperature, no ecchymosis. Lungs: Lungs clear to auscultation. No wheezing, rhonchi, rales, no use of accessory respiratory muscles. Heart: RRR, normal s1s2, no murmurs Abdomen: Positive for bowel sounds, soft abdomen, non-tender. Extremities: No pitting edema bilateral legs. MEDICATIONS: cefdinir (OMNICEF) 300 mg capsule Take 300 mg by mouth twice daily. ketoconazole (NIZORAL) 2 % cream Apply to affected area twice daily. alendronate (FOSAMAX) 70 mg tablet Take 70 mg by mouth one time a week. In AM with cup of water on empty stomach. Nothing else by mouth and stay upright for 30 min. aspirin, enteric coated (ASPIR-81) 81 mg EC tablet Take 81 mg by mouth once daily. atorvastatin (LIPITOR) 80 mg tablet Take 80 mg by mouth once daily. baclofen (LIORESAL) 20 mg tablet Take 20 mg by mouth three times daily. bethanechol (URECHOLINE) 25 mg tablet Take 25 mg by mouth three times daily. buPROPion XL (WELLBUTRIN XL) 150 mg 24 hr tablet Take 150 mg by mouth once daily. calcium carbonate-vitamin D3 (CALCIUM 500+D) 500 mg(1,250mg) -400 unit chewable tablet Take 1 tablet by mouth twice daily. citalopram (CELEXA) 20 mg tablet Take 20 mg by mouth once daily. cloNIDine HCl (CATAPRES) 0.1 mg tablet Take 0.1 mg by mouth twice daily. estradiol (VIVELLE-DOT) 0.05 mg/24 hr Apply 1 Patch as directed one time a week. ferrous sulfate (FEROSUL) 325 mg (65 mg iron) tablet Take 325 mg by mouth daily with breakfast. gabapentin (NEURONTIN) 600 mg tablet Take 600 mg by mouth three times daily. levothyroxine (SYNTHROID) 125 mcg tablet Take 125 mcg by mouth daily before breakfast. meloxicam (MOBIC) 15 mg tablet Take 15 mg by mouth once daily as needed. predniSONE (DELTASONE) 5 mg tablet Take 15 mg by mouth once daily. rizatriptan (MAXALT) 5 mg tablet Take 5 mg by mouth as needed. May repeat in 2 hours if needed traMADol (ULTRAM) 50 mg tablet Take 50 mg by mouth every 12 hours as needed. pbtghdr-ijnrbkpo-hzlcmr ital (FIORINAL) capsule Take 1 capsule by mouth every 8 hours as needed. Current Facility-Administered Medications Medication Dose Route Frequency - levETIRAcetam iv piggyback 1,000 mg in NaCl (iso-osmotic) 100 mL (KEPPRA) 1,000 mg INTRAVENOUS BID - aspirin 81 mg chewable tab(s) 81 mg ORAL DAILY - acetaminophen 650 mg tab(s) (TYLENOL) 650 mg ORAL q 6 H PRN - heparin 5,000 Units injection 5,000 Units SUBCUTANEOUS q 12 H - levothyroxine 125 mcg tab(s) (SYNTHROID) 125 mcg ORAL DAILY (6 AM) - citalopram 20 mg tab(s) (CeleXA) 20 mg ORAL DAILY - predniSONE 15 mg tab(s) (DELTASONE) 15 mg ORAL DAILY - cefdinir 300 mg (OMNICEF) 300 mg ORAL BID - gabapentin 600 mg cap(s) (NEURONTIN) 600 mg ORAL TID - atorvastatin 80 mg tab(s) (LIPITOR) 80 mg ORAL AT BEDTIME - cloNIDine HCl 0.1 mg tab(s) (CATAPRES) 0.1 mg ORAL BID - ferrous sulfate 325 mg tab(s) 325 mg ORAL DAILY WITH BREAKFAST Lab data: CBC: Recent Labs 05/18/2031805/17/2034405/16/201918 WBC 7.08 8.13 10.49* HB 10.8* 11.0* 12.3 HCT 31.7* 32.5* 36.3 PLT 205 212 249 MCV 97.2* 96.4* 96.5* COAG: Recent Labs 05/16/201918 INR 0.96 BMP: Recent Labs 05/18/2031805/17/2034405/16/201918 GLUC 78 78 119* NA 139 137 137 K 3.6* 3.5* 3.6* CHLOR 105 101 98 CO2 23 23 23 ANION 11 13 16 BUN 14 14 14 CREAT 1.05* 0.95 0.99* CHEM: Recent Labs 05/18/2031805/17/2034405/16/20191805/16/20344 ALB -- -- 4.5 -- TPROT -- -- 7.5 -- CA 9.2 9.4 9.6 -- MG -- -- -- 2.1 HEPATIC: Recent Labs 05/16/201918 ALKPHOS 108 ALT 61* AST 49* TBILI 0.2 URINALYSIS: Recent Labs 05/16/202214 SPGR 1.017 UGLUC NEGATIVE UBILI NEGATIVE UKET NEGATIVE UPROT 100* UROBIL 0.2 UWBC 2.4 Plan of care discussion: Plan of care discussed with: Provider, RN, Patient. Leonel Lund MD Pager #[phone] 2:16 PM May 18, 2020 Disclaimer: Portions of this note have been generated using [employer] voice recognition software. Reasonable efforts were made to correct any dictation errors that resulted due to the programming of this software but some may still be present. [facility] [facility] Basic Metabolic Panelon 04-22 Anion gap [Moles/Vol] 13 mmol/L Normal 9-[address] [facility] Comment on above: Performed By: #### C BCD1 #### [facility] [address] [place], [place] [address] Calcium [Mass/Vol] 9.4 mg/dL Normal 8.5-10.2 [facility] Comment on above: Performed By: #### C BCD1 #### [facility] [address] [place], [place] [address] Chloride [Moles/Vol] 101 mmol/L Normal 97-105 [facility] Comment on above: Performed By: #### C BCD1 #### [facility] [address] [place], [place] [address] CO2 Blood 23 mmol/L Normal 22-30 [facility] Comment on above: Performed By: #### C BCD1 #### [facility] [address] [place], [place] [address] Creatinine [Mass/Vol] 0.95 mg/dL Normal 0.58-0.[address] [facility] Comment on above: Performed By: #### C BCD1 #### [facility] [address] [place], [place] [address] Glucose [Mass/Vol] 78 mg/dL Normal 74-99 [facility] Comment on above: Result Comment: The [place] Diabetes Association (ADA) provides guidance for cutoff values for fasting glucose and random glucose. The ADA defines fasting as no caloric intake for at least 8 hours.Fasting plasma glucose results between 100 to 125 mg/dL indicate increased risk for diabetes (prediabetes). Fasting plasma glucose results greater than or equal to 126 mg/dL meet the criteria for diagnosis of diabetes. In the absence of unequivocal hyperglycemia, results should be confirmed by repeat testing. In a patient with classic symptoms of hyperglycemia or hyperglycemic crisis, random plasma glucose results greater than or equal to 200 mg/dL meet the criteria for diagnosis of diabetes. Reference: Standards of Medical Care in Diabetes 2016; [place] Diabetes Association. Diabetes Care. 2016;39(Suppl 1). Performed By: #### C BCD1 #### [facility] [address] [place], [place] [address] Potassium [Moles/Vol] 3.5 mmol/L Low 3.7-5.[address] [facility] Comment on above: Performed By: #### C BCD1 #### [facility] [address] [place], [place] [address] Sodium [Moles/Vol] 137 mmol/L Normal 136-144 [facility] Comment on above: Performed By: #### C BCD1 #### [facility] [address] [place], [place] [address] Urea nitrogen [Mass/Vol] 14 mg/dL Normal 7-21 [facility] Comment on above: Performed By: #### C BCD1 #### [facility] [address] [place], [place] [address] CASE MGT INIT ASSESon 2019 CASE MGT INIT ASSES HNO ID: [id number] Author: Jackelin (Rn) MONAE Barroso Service: Care Management Author Type: Registered Nurse Type: Care Mgt Initial Assessment Filed: 05/17/2020 4:28 PM Note Text: CARE MANAGEMENT: ASSESSMENT AND DISCHARGE PLAN SERVICE DATE: May 17, 2020 SERVICE TIME: 4:27 PM PRIMARY CARE PHYSICIAN: No primary care provider on file. Phone: None ADMISSION STATUS: Inpatient Needs Prior to Discharge: Other: See Comment(out patient physical therapy) MEDICAL: [facility] MEDICARE PPO Patient/Binding [place] Stated Goals: To have reduction in symptoms Health Insurance: [facility] Issues Impacting Discharge Plan: None Last Discharge Date: N/A Is this Within the Past 30 days? Last discharge within 30 days: No Advance Directive: Current Advance Directive: None Customs And Border [employer] Inspector Attempted to Assist with AD Completion: Yes Action: Education Provided Health LiteracyHow often do you need to have someone help you when you read instructions, pamphlets, or other written material from your doctor or pharmacy? : 2 - Rarely How confident are you filling out medical forms by yourself?: 3 - Somewhat If Patient scores > 3 on either question, the following interventions were put into place:: Use of plain language and active listening with Patient and family;Forms of communication used with patient and family;Sit with Patient Baseline Mental Status Prior to this Illness what was the patient's Baseline Mental Status?: Alert AND Oriented;Difficulty completing tasks;Confused;Forgetfu l Prior to this illness, has anyone described the patient having any of the following behaviors?: Not Applicable Relationship of the informant to the patient:: Self Functional Status: Needs Assistance Does Patient Currently Receive Any Community Services or Home Care?: None Equipment Prior to Admission: Wheelchair SOCIAL: Living Arrangements: Home Lives With: Son;Daughter Financial Resources: RetiredPrimary Contact: Extended Emergency Contact Information Primary Emergency Contact: mauricio diaz Mobile Relation: Son Secondary Emergency Contact: tammie leonardo Mobile Relation: Daughter Supportive Patient Contact:: Yes Contact Resources: Family Family Name/Phone: Mauricio (son) [phone] Social Needs Food insecurity Worry: Not on file Inability: Not on file Resources Needed: No Social Needs Financial resource strain: Not on file Social Needs Transportation needs Medical: Not on file Non-medical: Not on file Caregiver AssessmentCaregiver is ready, willing and able to meet the patient's needs as recommended by the inter-professional team:: Yes Does the patient have an acute stroke diagnosis, or has the patient had a stroke during this admission?: No Patient's transition needs and plan for meeting these needs: home with outpatient PT/OT and family to assist Patient's perception of need for this admission: seizure Medication Adherance I am convinced of the importance of my prescription medication: 0 - Agree Completely I worry that my prescription medication will do more harm than good to me : 0 - Disagree Completely I feel financially burdened by my [id number]-[id number] expenses for my prescription medication:: 0 - Disagree Completely Risk Score: 0 Patient is categorized as: Low risk < 2 Are you interested in bedside delivery of your medications? No Is Patient Psychosocially Complex?: No ASSESSMENT AND PLAN: Medical Needs: Medical Needs: None Psychosocial Needs: Psychosocial Needs: None FREEDOM OF CHOICE EXPLAINED: [place] of Choice Given: No Reason Not Given: No placements necessary POTENTIAL TRANSITION PLANS Outpatient Therapy From home w/ son and daughter in law, they help with all activities of daily living, they can still manage to provide care. Patient active with outpatient physical and occupational therapy through [facility]. Plan return home with family assist and outpatient physical and occupational therapy. Will continue to follow. SIGNATURE: Jackelin Barroso RN PATIENT NAME: Elba Diaz DATE: May 17, 2020 TIME: 4:27 PM PAGER/CONTACT #: [phone] [facility] CONSULTon 05-17-2020 CONSULT HNO ID: [id number] Author: Stew Ellison Jr. Service: Neurology Stroke Author Type: Physician Type: Consults Filed: 05/17/2020 4:12 PM Note Text: INITIAL CONSULT - GENERAL NEUROLOGY SERVICE DATE: 05/17/2020 SERVICE TIME: 1520 Team Requesting Consult: MILI Current Attending Provider: Leonel Lund Neurology was asked by the MILI team to evaluate Elba Diaz, a 70 year old female for a chief complaint of Seizures. Our recommendations of care will be communicated by shared medical record. Reason for Evaluation: Seizures Subjective HPI: This is Ms. Elba Diaz a 70 year old female from [place], visiting [place] to get PT and see her son, who presented to the [facility] initially with a chief complaint of a witnessed seizure by her son. She does not remember it and simply said she was on the floor and did not know why. Her son witnessed her having generalized seizure activity and called 911 and she was admitted. 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 No other seizures. Of note she has been on tramadol for pain and also Wellbutrin for anxiety prior to the stroke, and 600mg tid of gabapentin for pain also. Current Facility-Administered Medications Medication Dose Route Frequency - levETIRAcetam iv piggyback 1,000 mg in NaCl (iso-osmotic) 100 mL (KEPPRA) 1,000 mg INTRAVENOUS BID - aspirin 81 mg chewable tab(s) 81 mg ORAL DAILY - acetaminophen 650 mg tab(s) (TYLENOL) 650 mg ORAL q 6 H PRN - heparin 5,000 Units injection 5,000 Units SUBCUTANEOUS q 12 H - levothyroxine 125 mcg tab(s) (SYNTHROID) 125 mcg ORAL DAILY (6 AM) - citalopram 20 mg tab(s) (CeleXA) 20 mg ORAL DAILY - predniSONE 15 mg tab(s) (DELTASONE) 15 mg ORAL DAILY - cefdinir 300 mg (OMNICEF) 300 mg ORAL BID No past medical history on file. No past surgical history on file. Social History Tobacco Use - Smoking status: Not on file Substance Use Topics - Alcohol use: Not on file - Drug use: Not on file No family history on file. ALLERGIES No Known Allergies REVIEW OF SYSTEMS: GENERAL: Normal sleep, appetite and activity. No fevers or irritability. HEENT: Negative for headaches, No problems with hearing or vision, no nose bleeds or other nasal problems NECK: Negative for stiffness, lumps or significant neck swelling RESPIRATORY: Negative for cough, wheezing or respiratory distress CARDIOVASCULAR: Negative for chest pain, syncope, lightheadness or heart racing GI: No nausea, vomiting, or diarrhea : No history of dysuria, frequency or incontinence MUSCULOSKELETAL: Negative for joint pain or swelling, back pain or muscle pain SKIN: Negative for lesions, rash, and itching NEURO: See HPI Objective PHYSICAL EXAM: General Appearance: Well appearing, alert, in no acute distress, well-hydrated, well nourished. Neurological: ? Mental Status: Alert, oriented to person, place and time, Follows commands and Speech fluent and appropriate. Cranial Nerves: CNII: left homonymous hemianopsia CNIII, IV, : Pupils equal, round and reactive to light, full extraoccular movements, without nystagmus CN V: decreased left CN VII: left lower facial droop CN VIII: Hears finger rub well bilaterally CN IX: Gag Reflex Not examined CN X: Palate elevates symmetrically CN XI: Full strength shoulder shrug bilaterally CN XII: Tongue protrusion full and midline ? Non-Dilated Fundiscopic Examination: Deferred Examination ? Motor Exam: Tone - Spastic on left especially LLE (LUE has been treated with Botox) Bulk - no muscle atrophy. No involuntary movements. Spastic left hemiplegia with more tone in LLE (LUE with Botox). R side 5/5. REFLEXES Right Left Bicep 2/4 3/4 Tricep 2/4 3/4 BrRad 2/4 3/4 Knee 2/4 3/4 Ankle 2/4 3/4 Pathological Reflexes: Babinski: left Upward response Bruce: bilaterally Negative ? Sensation: decreased left ? Coordination: Normal on right cannot test on left due to hemiplegia. ? Gait: Patient is unable to ambulate. ? Romberg: cannot test ? Rapid Alternating Movements: normal right unable to test left due to hemiplegia LABS/DATA: WBC (thou/cmm) Date Value 05/17/2020 8.13 05/16/2020 10.49 RBC (mil/cmm) Date Value 05/17/2020 3.37 05/16/2020 3.76 Platelet Count (thou/cmm) Date Value 05/17/2020 212 05/16/2020 249 BUN (mg/dL) Date Value 05/17/2020 14 05/16/2020 14 Creatinine (mg/dL) Date Value 05/17/2020 0.95 05/16/2020 0.99 No results found for: NEUTP, ABSNEUT, LYMPHP, ABSLYMPH, ABSMONO, EODINP, ABSEOSIN, BASOP, ABSBASO Lab Results Component Value Date PLT 212 05/17/2020 HB 11.0 05/17/2020 HCT 32.5 05/17/2020 ALB 4.5 05/16/2020 CA 9.4 05/17/2020 TBILI 0.2 05/16/2020 ALKPHOS 108 05/16/2020 AST 49 05/16/2020 GLUC 78 05/17/2020 BUN 14 05/17/2020 NA 137 05/17/2020 K 3.5 05/17/2020 CHLOR 101 05/17/2020 CO2 23 05/17/2020 ANION 13 05/17/2020 ALT 61 05/16/2020 No results found for: WSR, CRP, IGG No results found for: USCRP Cholesterol, Total (mg/dL) Date Value 05/17/2020 232 LDL Calculated (mg/dL) Date Value 05/17/2020 128 HDL Cholesterol (mg/dL) Date Value 05/17/2020 79 Triglyceride (mg/dL) Date Value 05/17/2020 127 No results found for: HBA1C RECENT MICROBIOLOGY: Blood Cultures: n/a Urine Cultures/UA: n/a DATA: Diagnostic tests reviewed for today's visit: Most recent labs and imaging results. 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 Will DC her tramadol and DC her Wellbutrin and start her on citolapram instead. Increase gabapentin to 800mg tid for better seizure control and better pain control. If ineffective for her pain, needs a less epileptogenic opiate--- oxycodone or hydrocodone [or codeine], and would need a second AED at that point--- would recommend avoiding Keppra if this ends up being the case as it will exacerbate her anxiety and depression. SIGNATURE: Stew Ellison MD PATIENT NAME: Elba Diaz DATE: May 17, 2020 TIME: 3:55 PM PAGER/CONTACT #: [phone] [facility] ED NOTEon 05-17-2020 ED NOTE HNO ID: [id number] Author: Alex BarronRn) MONAE Wilson Service: Emergency Medicine Author Type: Registered Nurse Type: ED Notes Filed: 05/16/2020 10:39 PM Note Text: Patient's identity verified by patient stating name, Patient's identity verified by patient stating date, Patient's identity verified by hospital ID bracelet. Nasal swab collected, labeled in the presence of the patient and sent to lab for testing of,Covid 19 Side rails up, Cart/Stretcher in lowest position, Call light within reach, Hospital ID band on. Normal [facility] ED NOTE HNO ID: [id number] Author: Alex BarronRn) MONAE Wilson Service: Emergency Medicine Author Type: Registered Nurse Type: ED Notes Filed: 05/16/2020 10:17 PM Note Text: Pt straight cathed 400cc obtained, sample collected Normal [facility] HISTORY PHYSICALon 0 HISTORY PHYSICAL HNO ID: [id number] Author: Elli Levy Service: Hospital Medicine Author Type: Physician Type: HANDP Filed: 05/17/2020 2:34 AM Note Text: DEPARTMENT OF HOSPITAL MEDICINE HISTORY AND PHYSICAL EXAM SERVICE DATE: 05/16/2020 SERVICE TIME: 10:34 PM Primary Care Physician: No primary care provider on file. NIGHT AND WEEKEND COVERAGE: VANDEMERE COVERAGE: From 7am - 7pm, please call admit After 7pm, please call cross cover pager #[phone] Subjective CHIEF COMPLAINT: convulsions HPI: This is a 70 year old female with past medical history of right MCA stroke in September with residual weakness on left side, hypothyroid, depression who was discharged earlier this morning after an admission for hypotension and dehydration with UTI and was discharged on Cefdinir. Patient states that she went home and playing with her dog and was sitting in her kitchen with her family when they noticed her having some convulsions in her right arm with spasms she was mute and gazing into space. Patient does not remember this episode. She did have an episode of confusion and lethargy after this. In the ED patient was AAO ?3 and back to her baseline. To me she denies any acute complaints including headache, dizziness, neck pain, blurry vision, chest pain, shortness of breath, abdominal pain, nausea, vomiting, diarrhea or leg edema. She does complain of left hip pain which is chronic in nature. In the ED patient was loaded with Keppra and admitted for further workup. past medical history - Aneurysm (HCC) ? ? cranial x2 (3mm) Rcere, L temp - Colon polyp ? - Endometriosis ? - Fatigue ? - Hypothyroid ? ? tsh> 150 off med - Lung nodule ? - Mild depression (HCC) ? - Polyneuropathy 07/2012 ? of legs by emg/nct - Stroke (HCC) PAST SURGICAL HISTORY Procedure Laterality Date - TOTAL ABDOM HYSTERECTOMY ? ? ? BSO FAMILY HISTORY[]Expand by Default History reviewed. No pertinent family history. SOCIAL HISTORY[]Expand by Default Social History ? Tobacco Use - Smoking status: Former Smoker - Smokeless tobacco: Never Used - Tobacco comment: quit 20 years ago Substance Use Topics - Alcohol use: Yes ? ? Comment: rarely - Drug use: Never MEDICATIONS: Reviewed (Not in a hospital admission) ALLERGIES No Known Allergies REVIEW OF SYSTEM: Pertinent positive in the hpi. All other systems are reviewed and are negative. Objective PHYSICAL EXAM: BP 134/74 Pulse 88 Temp (Src) 98.2 (Oral) Resp 18 Ht 5' 4 (1.63m) Wt 150 lb (68.0kg) SpO2 97% BMI 25.73 kg/(m2). O2 Therapy: Room Air Physical Exam Performed: GENERAL: AAO x 3, not in distress, well -developed HEENT: No pallor or icterus, moist MM, no lymphadenopathy, trachea central NECK: No JVD CHEST: Normal shape, no tenderness LUNGS: CT Auscultate b/left, no rhonchi, rales, wheezes HEART: S1S2 +, no mrg ABDOMEN: NT, ND, BS+, No organomegaly EXT : no peripheral edema PULSES : 2+ b/left dorsalis, radial Neurology - cranial nerves intact, sensations decreased on left side, power 3 out of 5 on the left side and forward to 5 on right. Lines, Drains, and Airways Line Peripheral 05/16/20 Right Antecubital 20 Gauge less than 1 day DATA: Diagnostic tests reviewed for today's visit: Most recent labs and imaging results. Assessment/Plan # AMS concern for seizure With postictal confusion check EEG. Continue with the [facility]. Neurology consult. Patient is on multiple medications which can lower the seizure threshold including tramadol and Wellbutrin. Holding these medications currently. # History of CVA left MCA infarct On aspirin. Not on statin. Check Lipid panel. # depression - on Citalopram # hypothyroid - on levothyroxine # recent admit for Urinary Tract Infection - was discharged on cefdinir. No urine culture available. Complete course for 5 days for simple cystitis. # Chronic Kidney Disease stage 3 - Creatinine around baseline # debility PTOT Medication and Non-Pharmacologic VTE Prophylaxis/Anticoagula nts heparin VTE Prophylaxis: VTE prophylaxis appropriate Disposition: To be determined Plan of care discussed with: Provider, RN, Patient SIGNATURE: Elli Levy MD PATIENT NAME: Elba Diaz DATE: May 16, 2020 TIME: 10:34 PM PAGER/CONTACT #: victor manuel etedson [phone] Normal [facility] Hemogramon 05-17-2020 Erythrocyte distribution width (RBC) [Ratio] 13.0 % Normal 11.7-14.4 [facility] Comment on above: Performed By: #### C BCD1 #### [facility] [address] [place] [address] Hematocrit (Bld) [Volume fraction] 32.5 % Low 34.1-44.9 [facility] Comment on above: Performed By: #### C BCD1 #### [place] [address] Hemoglobin (Bld) [Mass/Vol] 11.0 g/dL Low 11.2-15.7 [facility] Comment on above: Performed By: #### C BCD1 #### [place] [address] MCH (RBC) [Entitic mass] 32.6 pg High 25.6-32.2 [facility] Comment on above: Performed By: #### C BCD1 #### [place] [address] MCHC (RBC) [Mass/Vol] 33.8 % Normal 31.6-34.[address] [facility] Comment on above: Performed By: #### C BCD1 #### [place] [address] MCV (RBC) [Entitic vol] 96.4 fL High 79.4-94.8 [facility] Comment on above: Performed By: #### C BCD1 #### [place] [address] Platelet mean volume (Bld) [Entitic vol] 9.8 fL Normal 9.4-12.3 [facility] Comment on above: Performed By: #### C BCD1 #### [address] [place], [place] [address] Platelets (Bld) [#/Vol] 212 thou/cmm Normal 182-369 [facility] Comment on above: Performed By: #### C BCD1 #### [facility] [address] [place] [id number] RBC (Bld) [#/Vol] 3.37 mil/cmm Low 3.93-5.22 [facility] Comment on above: Performed By: #### C BCD1 #### [facility] [address] [place] [address] RDW SD 46.5 fl High 36.4-46.3 [facility] Comment on above: Performed By: #### C BCD1 #### [facility] [address] [place] [address] WBC (Bld) [#/Vol] 8.13 thou/cmm Normal 3.98-10.04 [facility] Comment on above: Performed By: #### C BCD1 #### [place] [address] Lipid Profile, [facility] 05-17 Cholesterol [Mass/Vol] 232 mg/dL High 0-199 [facility] Comment on above: Result Comment: Tota l Cholesterol < 200 mg/dL, Desirable Total Cholesterol 200 to 239 mg/dL, Borderline high Total Cholesterol > 239 mg/dL, High Performed By: #### C BCD1 #### [place] [address] Cholesterol in HDL [Mass/Vol] 79 mg/dL Normal [facility] Comment on above: Result Comment: Refe rence Range: HDL Cholesterol 40- 59 mg/dL, Acceptable HDL Cholesterol >59 mg/dL, High; Negative risk factor for coronary heart disease HDL Cholesterol <40 mg/dL, Low; Positive risk factor for coronary heart disease Performed By: #### C BCD1 #### [facility] [address] [place] [address] Cholesterol in LDL [Mass/Vol] 128 mg/dL High 0-99 [facility] Comment on above: Result Comment: LDL Cholesterol < 100 mg/dL, Optimal LDL Cholesterol 100 to 129 mg/dL, Near optimal/above optimal LDL Cholesterol 130 to 159 mg/dL, Borderline high LDL Cholesterol 160 to 189 mg/dL, High LDL Cholesterol > 189 mg/dL, Very high Secondary prevention optimal LDL Cholesterol levels are recommended to be < 70 mg/dL Performed By: #### C BCD1 #### [facility] [address] [place], [place] [address] Cholesterol in LDL/Cholesterol in HDL [Mass ratio] 1.62 Normal 0.00-2.53 [facility] Comment on above: Performed By: #### C BCD1 #### [facility] [address] [place], [place] [address] Cholesterol.total/Blessing sterol in HDL [Mass ratio] 2.94 {ratio} Normal 0.00-5.09 [facility] Comment on above: Performed By: #### C BCD1 #### [facility] [address] [place], [place] [address] Non-HDL Cholesterol 153 mg/dL High 0-129 [facility] Comment on above: Result Comment: Non HDL Cholesterol < 130 mg/dL, Optimal Non HDL Cholesterol 130 to 159 mg/dL, Near optimal/above optimal Non HDL Cholesterol 160 to 189 mg/dL, Borderline high Non HDL Cholesterol 190 to 219 mg/dL, High Non HDL Cholesterol > 219 mg/dL, Very high Secondary prevention optimal non HDL Cholesterol levels are recommended to be < 100 mg/dL Performed By: #### C BCD1 #### [facility] [address] [place], [place] [address] Triglyceride Blood 127 mg/dL Normal 0-149 [facility] Comment on above: Result Comment: Trig lycerides < 150 mg/dL, Normal Triglycerides 150 to 199 mg/dL, Borderline high Triglycerides 200 to 499 mg/dL, High Triglycerides > 499 mg/dL, Very high Performed By: #### C BCD1 #### [facility] [address] [place], [place] [address] VLDL Cholesterol 25 mg/dL Normal 0-29 [facility] Comment on above: Performed By: #### C BCD1 #### [facility] [address] [place], [place] [address] Magnesium Bloodon 05-17-2020 Magnesium [Mass/Vol] 2.1 mg/dL Normal 1.7-2.3 [facility] Comment on above: Performed By: #### C BCD1 #### [facility] [address] [place] [address] PROGRESSon 05-17-2020 PROGRESS HNO ID: [id number] Author: Leonel Lund Service: Hospital Medicine Author Type: Physician Type: Progress Notes Filed: 05/17/2020 2:26 PM Note Text: Hospital Medicine Progress Note Patient Name: Elba Diaz Admission Date: 05/16/2020 Reason for Visit: Possible seizure, UTI IMPRESSION AND PLAN: Active Hospital Problems Diagnosis - Seizure (HCC) 1. Change in mental status concerning for seizure, patient will receive EEG today and neurology was consulted, also started on Keppra. Holding medication that will lower her seizure threshold including tramadol. 2. Recent UTI for which patient still oral cefdinir and will require 4 more days. 3. History of severe left MCA infarct. Continue home medication 4. Hypothyroidism on Synthroid. 5. Chronic kidney disease stage III around baseline. 6. Debility plan for therapy. 7. Hypokalemia replace was oral potassium. Patient Checklist Prophylaxis: VTE - Yes Code Status: Code Status: Not on file Disposition: Not clear Leonel Lund MD Interval History: Patient was seen and examined for seizure-like activity, patient denied any fever, chills, chest pain, she is awake alert, she knew she was in the hospital, also remembered that she was discharged yesterday after being treated for UTI and dehydration. [id number] was concerned that patient was having some confusion and paranoia at home was seeing people who were not there, no similar event in the hospital. PHYSICAL EXAM: BP 132/80 Pulse 72 Temp 36.7 ?C (98.1 ?F) (Oral) Resp 16 Ht 162.6 cm (5' 4) Wt 72.7 kg (160 lb 4.8 oz) SpO2 96% BMI 27.52 kg/m? PHYSICAL EXAMINATION: General appearance: Patient is sitting in bed in no acute respiratory distress. Awake, alert, oriented *3. Skin: Normal temperature, no ecchymosis. Lungs: Lungs clear to auscultation. No wheezing, rhonchi, rales, no use of accessory respiratory muscles. Heart: RRR, normal s1s2, no murmurs Abdomen: Positive for bowel sounds, soft abdomen, non-tender. Extremities: No pitting edema bilateral legs. MEDICATIONS: No prescriptions on file. Current Facility-Administered Medications Medication Dose Route Frequency - levETIRAcetam iv piggyback 1,000 mg in NaCl (iso-osmotic) 100 mL (KEPPRA) 1,000 mg INTRAVENOUS BID - aspirin 81 mg chewable tab(s) 81 mg ORAL DAILY - acetaminophen 650 mg tab(s) (TYLENOL) 650 mg ORAL q 6 H PRN - heparin 5,000 Units injection 5,000 Units SUBCUTANEOUS q 12 H - NaCl 0.9% iv infusion 75 mL/hr INTRAVENOUS CONTINUOUS - levothyroxine 125 mcg tab(s) (SYNTHROID) 125 mcg ORAL DAILY (6 AM) - citalopram 20 mg tab(s) (CeleXA) 20 mg ORAL DAILY - predniSONE 15 mg tab(s) (DELTASONE) 15 mg ORAL DAILY - cefdinir 300 mg (OMNICEF) 300 mg ORAL BID Lab data: CBC: Recent Labs 05/17/2034405/16/201918 WBC 8.13 10.49* HB 11.0* 12.3 HCT 32.5* 36.3 PLT 212 249 MCV 96.4* 96.5* COAG: Recent Labs 05/16/201918 INR 0.96 BMP: Recent Labs 05/17/2034405/16/201918 GLUC 78 119* NA 137 137 K 3.5* 3.6* CHLOR 101 98 CO2 23 23 ANION 13 16 BUN 14 14 CREAT 0.95 0.99* CHEM: Recent Labs 05/17/2034405/16/20191805/16/20344 ALB -- 4.5 -- TPROT -- 7.5 -- CA 9.4 9.6 -- MG -- -- 2.1 HEPATIC: Recent Labs 05/16/201918 ALKPHOS 108 ALT 61* AST 49* TBILI 0.2 URINALYSIS: Recent Labs 05/16/20 2215 SPGR 1.017 UGLUC NEGATIVE UBILI NEGATIVE UKET NEGATIVE UPROT 100* UROBIL 0.2 UWBC 2.4 Plan of care discussion: Plan of care discussed with: Provider, RN, Patient. Leonel Lund MD Pager #[phone] 11:18 AM May 17, 2020 Disclaimer: Portions of this note have been generated using [employer] voice recognition software. Reasonable efforts were made to correct any dictation errors that resulted due to the programming of this software but some may still be present. Normal [facility] Phosphorous Bloodon 05-17-20 20 Phosphate [Mass/Vol] 2.2 mg/dL Low 2.7-4.8 [facility] Comment on above: Performed By: #### C BCD1 #### [facility] [address] [place] [id number] Rapid, COVID 19on 05-17-2020 Rapid, COVID 19 Negative Normal Negative [facility] Comment on above: Result Comment: This test has been authorized by the FDA under an Emergency Use Authorization (EUA). Performed By: #### C BCD1 #### [place] [address] THERAPY NTon 05-17-2020 THERAPY NT HNO ID: [id number] Author: Dina (Hi Low Truck Driver) TRUNG Hidalgo/COMMERCIAL HORTICULTURE INSTRUCTOR Service: Speech/Swallow Author Type: Speech Language Pathologist Type: Therapy (PT/OT/Speech/Resp) Filed: 05/17/2020 3:21 PM Note Text: Speech Therapy Clinical Swallow Evaluation SERVICE DATE: 05/17/2020 SERVICE TIME: 1430 to 1502 ROOM: [id number] Nursing Recommendations: Reinforce use of swallowing strategies Diet Recommendations: Regular Consistency Thin Liquids IDDSI Level 0 Swallowing Precautions Recommendations: Alert (patient should be fully alert for P.O. intake) Sit upright 90 degrees for all PO Supervision/Assistance for meals Small Bite/Sip Results and Recommendations Discussed With: Patient;Family;Nurse Recommended Discharge Disposition: Home IMPRESSION: Patient demonstrates oral dysphagia which is mildly impacting his/her ability to effectively maintain adequate nutrition and hydration and/or airway safety. Recommend regular textured foods and thin liquids. Rehabilitation Precautions: Aspiration Precautions;NPO Isolation Type: None NPO Precautions: (IV) prior to clinical swallow evaluation ASSESSMENT: Patient is awake, alert and talkative Vocal quality is clear No excess oral or pharyngeal secretions Lingual and labial range of motion and strength are within functional limits Patient able to feed herself but requires assist for tray set up and opening containers and cutting foods due to weak left upper extremity Good lip seal on cup, straw and spoon No signs/symptoms of aspiration with thin liquids from cup and straw No signs/symptoms of aspiration with puree Able to chew a dry solid without oral residual and no signs/symptoms of aspiration Recommend regular textured foods and thin liquids Patient will benefit from Speech Therapy while in hospital to re-enforce swallow strategies to prevent aspiration Tolerated Full Session Goals for Plan of Care: Swallow Goals: Patient will tolerate Regular Consistency diet consistency while utilizing compensatory/swallowing strategies given minimal cues in 90% of trials so that the patient will minimize the signs/symptoms of dysphagia. Patient will tolerate Thin Liquids IDDSI Level 0 consistency while utilizing compensatory/swallowing strategies given minimal cues in 90% of trials so that the patient will minimize the signs/symptoms of dysphagia. Patient, Caregiver will demonstrate adequate return of knowledge of all compensatory strategies/instruction to effectively assist the patient in immediate safety with oral intake and swallowing. - small bites/sips, slow pace of eating/drinking. Patient /Caregiver Goals: Eat/Drink Without Restrictions Speech Rehab Potential: Good PLAN: Treatment Frequency (times per week): 2 Current admission Treatment Interventions: Dysphagia Management Plan of Care Developed with: Patient;Caregiver;Famil y TREATMENT INTERVENTIONS: Therapy Diagnosis: Dysphagia, oral phase Interventions Provided: Clinical Swallow Evaluation (51497) $ Clinical Swallow Evaluation (57584) Billed Units: 1 unit Total Treatment Time (minutes): 32 SUBJECTIVE: Current Hospital Course: Chart reviewed; This 70 year old female was admitted after a seizure. Reason for Speech Therapy Consult: Seizure; swallow evaluation Relevant Past Medical History: right MCA stroke Patient Report: I had trouble swallowing after my stroke but was able to eat regular foods and liquids after rehab. Home Environment Prior Functional Level: Within Functional Limits Assistance Available: PRN Prior Swallowing Function/Diet Textures: Regular Consistency;Thin Liquids IDDSI Level 0 Please see discipline specific clinical documentation flowsheet for complete details for this therapy evaluation/treatment. 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 PATIENT NAME: Elba Diaz DATE: May 17, 2020 TIME: 3:13 PM Normal [facility] THERAPY NT HNO ID: [id number] Author: Cristopher (Pt) JHONNY Elkins Service: Physical Therapy Author Type: Physical Therapist Type: Therapy (PT/OT/Speech/Resp) Filed: 05/17/2020 1:28 PM Note Text: Physical Therapy Evaluation SERVICE DATE: 05/17/2020 SERVICE TIME: 1147 to 1212 ROOM: [place] [address] Recommended Discharge Disposition: Outpatient Physical Therapy Recommended Discharge Disposition Comments: Pt appears near baseline per family present during session and family is able to assist as needed at discharge. Pt was active with outpatient therapies before admit, would benefit from continued PT in outpatient setting to maximize functional status. Anticipated Discharge Needs: Physical Assist at Home;Supervision at Home Physical Assist at Home for: Transfers;Cleaning;Laun dry;Meals;Safety;Self Care;Shopping;Transport ation;Wheelchair Mobility Supervision at Home due to: Impaired cognition Recommended Discharge Equipment: No equipment needs anticipated PT Recommendations to Nursing: Transfer to/from chair;OOB for Meals;With assist of 2 people Device: Other: See Comment(gait belt) PT 6 Clicks Score: 11 Precautions/Activity Restrictions: Fall Risk Isolation Type: None ASSESSMENT : This patient was admitted for altered mental status, concern for seizure, has the past medical history of R MCA CVA 09/2019 with residual left weakness impacting current functional level, as well as the social factors complicating the discharge of uncomplicated. This patient is below baseline functioning of able to transfer with min caregiver assist and will benefit from continued skilled therapy in the hospital for treatment of the following body systems/impairments: musculoskeletal strength, ROM; neuromuscular control, coordination, balance; functional mobility including bed mobility, transfers, gait, stairs; cognitive training and safety awareness, fall prevention strategies Patient Disposition at Start of Session: Supine in Bed;Call Sweet in Reach Patient Disposition at End of Session: OOB in Chair;Call Sweet in Reach Tolerated Full Session Physical Therapy Problem List: Cognitive Deficit;Safety Deficits;Impaired Self Care;Decreased Activity Tolerance;Decreased Range Of Motion;Decreased Strength;Functional Mobility Impairment;Balance Impaired;Pain Patient /Caregiver Goals: Care For Self Goals for Plan of Care: Able to perform HEP with: Independent Transfer supine to/from sit with: Stand By Assistance Transfer sit to/from stand with: Contact Guard Assistance Transfer: bed to/from chair with contact guard assist Rehab Potential: Good PLAN: Treatment Frequency (times per week): 3(1-3) Current admission Treatment Interventions: Education;Strengthening ;Functional Mobility Training;Balance Training;Neuromuscular Re-education;Cognitive Training Plan of Care developed with: Patient TREATMENT INTERVENTIONS: Therapy Diagnosis: Reduced mobility-other Interventions Provided: Evaluation $ Evaluation-Moderate (05103) Billed Units: 1 unit History and examination of body systems see assessment section above. This patient?s clinical presentation is evolving. The patient required a moderate complexity evaluation. Total Treatment Time (minutes): 25 SUBJECTIVE: Current Hospital Course: Chart reviewed; This is a 70 year old female with past medical history of right MCA stroke in September with residual weakness on left side, hypothyroid, depression who was discharged earlier this morning after an admission for hypotension and dehydration with UTI and was discharged on Cefdinir. Patient states that she went home and playing with her dog and was sitting in her kitchen with her family when they noticed her having some convulsions in her right arm with spasms she was mute and gazing into space. Patient does not remember this episode. She did have an episode of confusion and lethargy after this. In the ED patient was AAO ?3 and back to her baseline. To me she denies any acute complaints including headache, dizziness, neck pain, blurry vision, chest pain, shortness of breath, abdominal pain, nausea, vomiting, diarrhea or leg edema. She does complain of left hip pain which is chronic in nature. In the ED patient was loaded with Keppra and admitted for further workup. Reason for Physical Therapy Consult : eval Relevant Past Medical History: R MCA CVA 09/2019 with residual left weakness Patient Report: Pt pleasant and agreeable to physical therapy. Thanks you've been very nice. Home Environment Patient Lives With: Family(son and his fiance) Assistance Available: 24 Hour Entry To Home: Ramp Number Of Stairs To Bed/Bath: 0 Equipment Owned: Commode-Bedside;Grab Bars-Shower;Grab Bars-Toilet;Hand Held Shower;Hospital Bed;Wheelchair Prior Functional Level: Required Assistance Assistance Required With: Cleaning;Laundry;Meals; Shopping;Transportation ;Self Care;Ambulation;Transfe rs;Safety;Wheelchair Mobility Prior Functional Level Comments: Pt provided history and family corroborated. She is able to transfer with min-mod A to/from a chair or toilet but has a great deal of difficulty walking. Was working with outpatient PT and OT. She uses a wheelchair to get out in the community, but she has difficulty propelling it herself due to her residual stroke deficits. She states she is normally able to dress most of herself and bathe herself OBJECTIVE: Range of Motion: WFL Strength: Lower Extremity Comments;Upper Extremity Comments Right Upper Extremity Strength Comments: 4/5 throughout Left Upper Extremity Strength Comments: 0/5 throughout Right Lower Extremity Strength Comments: 4/5 throughout Left Lower Extremity Strength Comments: grossly 2/5 CURRENT FUNCTIONAL STATUS: Current Functional Mobility Assist Level Additional Information Rolling Supine to Sit Moderate Assistance Sit to Supine Scooting Sit to Stand Moderate Assistance Stand to Sit Moderate Assistance Bed to Chair Moderate Assistance Bed To Chair Transfer Type: Stand Pivot Bed To Chair Transfer Equipment: Gait Belt Toilet/Commode Gait Stairs Curb Step Car Transfer Balance: Dynamic Standing;Static Standing Static Standing Balance: Poor Patient requires handhold support and moderate to maximal assistance to maintain position Dynamic Standing Balance: Poor Patient unable to accept challenge or move without loss of balance -HLM: 4: Move to chair / commode Please see discipline specific clinical documentation flowsheet for complete details for this therapy evaluation/treatment. SIGNATURE: Cristopher Elkins PT PATIENT NAME: Elba Diaz DATE: May 17, 2020 TIME: 1:25 PM Normal [facility] Urinalysis Routineon 020 Bacteria LM.HPF (Urine sed) [#/Area] NONE Normal None [facility] Comment on above: Performed By: #### C BCD1 #### [place] [address] Ep Cells Urine 2.0 /hpf Normal 0.0-5.0 [facility] Comment on above: Performed By: #### C BCD1 #### [place] [address] Hyaline Cast 0.3 /lpf Normal 0.0-1.0 [facility] Comment on above: Performed By: #### C BCD1 #### [place] [address] RBC LM.HPF (Urine sed) [#/Area] 3.5 /[HPF] Normal 0.0-5.0 [facility] Comment on above: Performed By: #### C BCD1 #### [facility] [address] [place] [address] WBC LM.HPF (Urine sed) [#/Area] 2.4 /[HPF] Normal 0.0-5.0 [facility] Comment on above: Performed By: #### C BCD1 #### [facility] [address] [place] [address] Appearance (U) CLEAR Normal [facility] Comment on above: Performed By: #### C BCD1 #### [place] [address] Bilirubin (U) [Mass/Vol] Negative Normal Negative [facility] Comment on above: Performed By: #### C BCD1 #### [place] [address] Color (U) YELLOW Normal [facility] Comment on above: Performed By: #### C BCD1 #### [place] [address] Glucose Ql (U) Negative Normal Negative [facility] Comment on above: Performed By: #### C BCD1 #### [place] [address] Hemoglobin,Urine Negative Normal Negative [facility] Comment on above: Performed By: #### C BCD1 #### [place] [address] Ketone Urine Negative Normal Negative [facility] Comment on above: Performed By: #### C BCD1 #### [place] [address] Leukocytes Esterase Negative Normal Negative [facility] Comment on above: Performed By: #### C BCD1 #### [place] [address] Nitrites Urine Negative Normal Negative [facility] Comment on above: Performed By: #### C BCD1 #### [place] [address] pH (U) 6.5 [pH] Normal 5.0-8.0 [facility] Comment on above: Performed By: #### C BCD1 #### [facility] [address] [place], [place] [address] Protein (U) [Mass/Vol] 100 mg/dL Abnormal Negative [facility] Comment on above: Performed By: #### C BCD1 #### [facility] [address] [place] [address] Specific [place], Ur 1.017 Normal 1.005-1.[address] [facility] Comment on above: Performed By: #### C BCD1 #### [facility] [address] [place], [place] [address] Urobilinogen,Ur 0.2 EU/dL Normal 0.2-1.0 [facility] Comment on above: Performed By: #### C BCD1 #### [facility] [address] [place] [address] Acetaminophenon 05-16-2020 Acetaminophen [Mass/Vol] <5 Low 10-30 [facility] Comment on above: Result Comment: Toxi c >150 ug/mL 4 hours post ingestion. The Salvatore Shirley nomogram can be used to estimate the probability of hepatotoxicity via the relationship of plasma acetaminophen concentration to the post ingestion interval. (Noni. Pediatrics. 1975. 55:871 to 876 and Salvatore et al. Arch Tool And Production Planner Med. 1981. 141:380 to 385). Reference ranges and high/low indicator flags are provided as general guidelines only. The treating physician must determine appropriate target levels/dosing based on the specific clinical situation. Performed By: #### C BCD1 #### [facility] [address] [place], [place] [address] Alcohol, Serumon 05-16-2020 Alcohol, Serum <11.0 Normal < 11 [facility] Comment on above: Performed By: #### A LCO3 #### [facility] [address] [place], [place] [address] CT BRAIN WO IVCONon 05-16-[address] BRAIN WO IVCON Final Report DATE OF EXAM: May 16 2020 7:26PM [facility] 0504 - CT BRAIN WO IVCON / PROCEDURE REASON: Neuro deficit, subacute, progressive or fluctuating Physician Interpretation EXAMINATION: CT BRAIN WO IVCON CLINICAL HISTORY: Acute confusion, seizure activity TECHNIQUE: Serial axial images without IV contrast were obtained from the vertex to the foramen magnum. MQ: [id number] CT Dose-Length Product (DLP): [address] Dose Reduction Employed: Iterative recon COMPARISON: None. RESULT: Post-operative change: None. Acute change: No evidence of an acute infarct or other acute parenchymal process. Hemorrhage: No evidence of acute intracranial hemorrhage. Mass Lesion / Mass Effect: There is no evidence of an intracranial mass or extraaxial fluid collection. No significant mass effect. Chronic change: There is a large area of encephalomalacia involving the right temporal and parietal lobes from prior MCA infarct. Parenchyma: There is mild generalized volume loss. The brain parenchyma is otherwise within normal limits for age. Ventricles: Ventricular enlargement concordant with the degree of parenchymal volume loss. Paranasal sinuses and skull base: The visualized paranasal sinuses are grossly clear. The skull base and imaged soft tissues are unremarkable. Occupational Health Nurse (topogram) images: Unremarkable. IMPRESSION: No acute intracranial abnormality is identified. 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 Air And Water Tester: [facility] Transcribe Date/Time: May 16 2020 7:27P Dictated by : BAILEE OROSCO MD This examination was interpreted and the report reviewed and electronically signed by: BAILEE OROSCO MD on May 16 2020 7:30PM EST Normal [facility] Comprehensive Metabolic Pane manan 05-16-2020 Albumin [Mass/Vol] 4.5 g/dL Normal 3.9-4.9 [facility] Comment on above: Performed By: #### C MP #### [place] [address] ALP [Catalytic activity/Vol] 108 U/L Normal 34-123 [facility] Comment on above: Performed By: #### C MP #### [facility] [address] [place], [place] [address] ALT [Catalytic activity/Vol] 61 U/L High 7-38 [facility] Comment on above: Performed By: #### C MP #### [place] [address] Anion gap [Moles/Vol] 16 mmol/L Normal 9-[address] [facility] Comment on above: Performed By: #### C MP #### [facility] [address] [place], [place] [address] AST [Catalytic activity/Vol] 49 U/L High 13-35 [facility] Comment on above: Performed By: #### C MP #### [facility] [address] [place], [place] [address] Bilirubin [Mass/Vol] 0.2 mg/dL Normal 0.2-1.3 [facility] Comment on above: Performed By: #### C MP #### [facility] [address] [place], [place] [address] Calcium [Mass/Vol] 9.6 mg/dL Normal 8.5-10.2 [facility] Comment on above: Performed By: #### C MP #### [facility] [address] [place], [place] [address] Chloride [Moles/Vol] 98 mmol/L Normal 97-105 [facility] Comment on above: Performed By: #### C MP #### [facility] [address] [place], [place] [address] CO2 Blood 23 mmol/L Normal 22-30 [facility] Comment on above: Performed By: #### C MP #### [facility] [address] [place], [place] [address] Creatinine [Mass/Vol] 0.99 mg/dL High 0.58-0.[address] [facility] Comment on above: Performed By: #### C MP #### [facility] [address] [place], [place] [address] Glucose [Mass/Vol] 119 mg/dL High 74-99 [facility] Comment on above: Result Comment: The [place] Diabetes Association (ADA) provides guidance for cutoff values for fasting glucose and random glucose. The ADA defines fasting as no caloric intake for at least 8 hours.Fasting plasma glucose results between 100 to 125 mg/dL indicate increased risk for diabetes (prediabetes). Fasting plasma glucose results greater than or equal to 126 mg/dL meet the criteria for diagnosis of diabetes. In the absence of unequivocal hyperglycemia, results should be confirmed by repeat testing. In a patient with classic symptoms of hyperglycemia or hyperglycemic crisis, random plasma glucose results greater than or equal to 200 mg/dL meet the criteria for diagnosis of diabetes. Reference: Standards of Medical Care in Diabetes 2016; [place] [employer] Association. Diabetes Care. 2016;39(Suppl 1). Performed By: #### C MP #### [facility] [address] [place] [address] Potassium [Moles/Vol] 3.6 mmol/L Low 3.7-5.[address] [facility] Comment on above: Performed By: #### C MP #### [facility] [address] [place] [address] Protein [Mass/Vol] 7.5 g/dL Normal 6.3-8.0 [facility] Comment on above: Performed By: #### C MP #### [facility] [address] [place] [address] Sodium [Moles/Vol] 137 mmol/L Normal 136-144 [facility] Comment on above: Performed By: #### C MP #### [facility] [address] [place] [address] Urea nitrogen [Mass/Vol] 14 mg/dL Normal 7-21 [facility] Comment on above: Performed By: #### C MP #### [facility] [address] [place] [address] ED NOTEon 05-16-2020 ED NOTE HNO ID: [id number] Author: Alex Wilson RN Service: Emergency Medicine Author Type: Registered Nurse Type: ED Notes Filed: 05/16/2020 8:19 PM Note Text: Pt placed on bed lara [facility] ED NOTE HNO ID: [id number] Author: Alex Wilson RN Service: Emergency Medicine Author Type: Registered Nurse Type: ED Notes Filed: 05/16/2020 8:02 PM Note Text: [facility] ED NOTE HNO ID: [id number] Author: Alex Wilson RN Service: Emergency Medicine Author Type: Registered Nurse Type: ED Notes Filed: 05/16/2020 8:02 PM Note Text: Son at bedside [facility] ED NOTE HNO ID: [id number] Author: Alex Wilson RN Service: Emergency Medicine Author Type: Registered Nurse Type: ED Notes Filed: 05/16/2020 7:20 PM Note Text: Pt to radiology Normal [facility] ED NOTE HNO ID: [id number] Author: Alex Wilson RN Service: Emergency Medicine Author Type: Registered Nurse Type: ED Notes Filed: 05/16/2020 7:17 PM Note Text: ED CT and xray notified Normal [facility] ED NOTE HNO ID: [id number] Author: Alex Wilson RN Service: Emergency Medicine Author Type: Registered Nurse Type: ED Notes Filed: 05/16/2020 7:10 PM Note Text: Dr Thompson in to assess pt Normal [facility] ED NOTE HNO ID: [id number] Author: Stew BarronMedicElmira Otto Service: ? Author Type: Project Engineering Manager and Chiropractic Teacher Type: ED Notes Filed: 05/16/2020 6:49 PM Note Text: Bed: 14-ED Expected date: 05/16/20 Expected time: 6:39 PM Means of arrival: [place] [facility] Comments: Poss. Seizure Med 10 Normal [facility] ED PROV NOTEon 05-16-2020 ED PROV NOTE HNO ID: [id number] Author: Meenu Thompson MD Service: Emergency Medicine Author Type: Physician Type: ED Provider Notes Filed: 05/16/2020 7:38 PM Note Text: Past surgical history CVA with left hemiparesis. She was transferred here after reportedly having a seizure. EMS did not feel that the seizure was related she immediately woke up with smelling salts and was talking; however, the patient appears to be confused here. She answers some questions appropriately, but has repetitive statements. Her pupils are equal and reactive. There is no visible tongue trauma. The chest is clear. The abdomen is soft. She has flexor contractures of the left side of the body consistent with a prior stroke; but she has full range of motion in the right upper and lower extremities. Neurovascular status is intact. Very little about her history and she is unable to provide any significant information. There is very little in the medical record including a list of her current medications for her not she has a past history of seizures. As such, we will obtain a CAT scan of her brain, place her on seizure precautions, and assess laboratory studies which also included a cardiac evaluation. She is currently in guarded, but stable, condition. Meenu Thompson MD 05/16/20 1938 Normal [facility] ED PROV NOTE HNO ID: [id number] Author: Meenu Thompson MD Service: Emergency Medicine Author Type: Physician Type: ED Provider Notes Filed: 05/16/2020 11:37 PM Note Text: ED Provider Note Patient Name: Elba Castaneda SERVICE DATE: 05/16/20 History Patient presents with: Seizures: family called EMS due to jerking and pseudoseizures. upon EMS arrival, pt not opening eyes and responding to questions. placed ammonia under patients nostril and patient opened eyes and answering questions. upon arrival, pt AANDOx2 and having some confusion with questions. denies pain. pt drowsy. pt has hx CVA and left sided weakness The patient presents to the ED via EMS for the complaint of altered mental status and convulsions. The report from EMS says that her family called medics for jerking of the patient. Medics reportedly placed ammonia under the patient's nostrils, and the patient was alert and answering questions at that time. EMS reported history of CVA with left-sided deficits. The patient is here without family and no past medical information available in her chart or contact numbers for any family. Her baseline mental status is unknown for this patient as well as last known well prior to this seizing episode. The patient is altered with AANDO x1 . I am unable to obtain a history or ROS, and the physical exam is limited by lack of cooperation by patient. She is not complaining of any pain or symptoms at this time. The patient is perseverating and continually stating her date as well as asking Why am I here?, What did I do wrong?. Her son, Mauricio, is at bedside. He states that the patient was admitted to [facility] on Sunday for UTI and low blood pressure and was discharged this morning with prescription for antibiotics which have not been obtained yet. He states that around 6:15 PM tonight, his mom started acting confused and had spasming of the right upper and lower extremity which lasted for about 1 to 2 minutes and then resolved. He noted that afterwards, she was extremely confused and lethargic from baseline. He did not notice any tongue biting or incontinence. He says that she is on a bunch of medications but denies any history of seizure. When asked if he was sure that she was admitted to [facility] due to her lack of records, he said that he is absolutely sure that he was here. No past medical history on file. No past surgical history on file. No family history on file. Social History Tobacco Use - Smoking status: Not on file Substance and Sexual Activity - Alcohol use: Not on file - Drug use: Not on file - Sexual activity: Not on file ALLERGIES No Known Allergies Review of Systems Unable to perform ROS: Mental status change Physical Exam BP 176/105 Pulse 104 Temp (Src) 98.2 (Oral) Resp 18 Ht 5' 4 (1.63m) Wt 150 lb (68.0kg) SpO2 97% BMI 25.73 kg/(m2). O2 Therapy: Room Air Physical Exam Vitals signs and nursing note reviewed. Constitutional: General: She is not in acute distress. Appearance: She is not ill-appearing, toxic-appearing or diaphoretic. HENT: Head: Normocephalic and atraumatic. Nose: Nose normal. Mouth/Throat: Mouth: Mucous membranes are moist. Pharynx: Oropharynx is clear. No oropharyngeal exudate or posterior oropharyngeal erythema. Eyes: General: No scleral icterus. Extraocular Movements: Extraocular movements intact. Conjunctiva/sclera: Conjunctivae normal. Pupils: Pupils are equal, round, and reactive to light. Neck: Musculoskeletal: Neck supple. No neck rigidity. Cardiovascular: Rate and Rhythm: Normal rate and regular rhythm. Pulses: Normal pulses. Heart sounds: Normal heart sounds. No murmur. No gallop. Pulmonary: Effort: Pulmonary effort is normal. No respiratory distress. Breath sounds: Normal breath sounds. No wheezing, rhonchi or rales. Abdominal: General: Abdomen is flat. Bowel sounds are normal. Palpations: Abdomen is soft. Tenderness: There is no abdominal tenderness. There is no guarding. Musculoskeletal: Normal range of motion. Lymphadenopathy: Cervical: No cervical adenopathy. Skin: General: Skin is warm and dry. Neurological: Mental Status: She is disoriented. Comments: Unknown baseline. Alert and oriented x1. GCS 14. Only intermittently complying with commands. NIH stroke scale unable to be performed due to patient cooperation. Patient is able to move her right upper and lower extremities. Patient is not moving her left upper or lower extremities. Psychiatric: Mood and Affect: Mood normal. Behavior: Behavior normal. Diagnostic Testing ED Labs Ordered and Reviewed - No data to display Procedures ED Course / Clinical Impression ED Course as of May 16 2314 Juan C Wilkes [facility] May 16, [id number] No acute changes CT BRAIN WO IVCON Clinical Impressions as of May 16 2314 Delirium New onset seizure (HCC) MDM / Disposition / Plan The patient presents via EMS for possible seizure and altered mental status. Due to lack of patient history and baseline status, wide work-up was started for altered mental status. Some initial considerations for this patient were intracranial etiologies such as hemorrhagic or ischemic stroke, seizure with postictal period, or electrolyte abnormalities. Pads were placed on bedside rails for safety. Head CT shows old right MCA infarct, no acute pathology. Her son, Mauricio, is at bedside. He states that the patient was admitted to [facility] on Sunday for UTI and low blood pressure and was discharged this morning with prescription for antibiotics which have not been obtained yet. He states that around 6:15 PM tonight, his mom started acting confused and had spasming of the right upper and lower extremity which lasted for about 1 to 2 minutes and then resolved. He noted that afterwards she was extremely confused and lethargic from baseline. He did not notice any tongue biting or incontinence. He says that she is on a bunch of medications but denies any history of seizure. When asked if he was sure that she was admitted to [facility] due to her lack of records, he said that he is absolutely sure that he was here. Discussed this patient with registration. It was discovered that patient's last name is spelled wrong we now have access to previous charts including recent admission on 05/14 which confirmed signs report of UTI with hypotension. The patient was discharged this morning with prescription for cefdinir outpatient. No other significant past medical history was discovered attributable to patient's current presentation. On reevaluation, the patient is now alert and oriented x3 and son says that the patient is now returned to baseline. The patient is now able to cooperate with full physical exam components and has an unremarkable NIH stroke scale with exception of her residual deficits from previous right MCA infarct. Given the history obtained from the son and the patient's improved status throughout reevaluation, it is very likely that this patient experiencing new onset seizure with postictal period causing her acute delirium. SOUND was paged for presumed new onset seizure in a patient with history of ischemic stroke. Discussed the patient with Dr. Levy who advised starting the patient on Keppra and agreed to admit the patient for observation and further management. SIGNATURE: DO Juan C Ramon (Chung) DO [facility] Resident 05/16/20 2518 Attending Note I evaluated the patient and personally participated in the holm components. I agree with the resident's findings and plan as documented and have discussed the case and management of the patient's care with the resident. Signature: Meenu Thompson MD Date: 05/16/2020 Time: 11:37 PM Meenu Thompson MD 05/16/20 5647 Normal [facility] Glucose Meteron 05-16-2020 Glucose [Mass/Vol] 125 mg/dL High 70-99 [facility] Comment on above: Performed By: #### G LMET #### [place] [address] Hemogram/Diffon 05-16-2020 Abs Immature Grans 0.05 thou/cmm Normal 0.00-0.[address] [facility] Comment on above: Performed By: #### C BCD1 #### [place] [address] Abs Neut (ANC) 8.20 thou/cmm High 1.56-6.13 [facility] Comment on above: Performed By: #### C BCD1 #### [place] [address] Abs. Baso 0.03 thou/cmm Normal 0.01-0.08 [facility] Comment on above: Performed By: #### C BCD1 #### [place] [address] Abs. [place] 0.40 thou/cmm Normal 0.27-0.70 [facility] Comment on above: Performed By: #### C BCD1 #### [place] [address] Basophils/100 WBC (Bld) 0.3 % Normal [facility] [place] Comment on above: Performed By: #### C BCD1 #### [facility] [address] [place] [address] Eosinophils (Bld) [#/Vol] 0.03 thou/cmm Normal 0.00-0.31 [facility] Comment on above: Performed By: #### C BCD1 #### [facility] [address] [place], [place] [address] Eosinophils/100 WBC (Bld) 0.3 % Normal [facility] Comment on above: Performed By: #### C BCD1 #### [facility] [address] [place] [address] Erythrocyte distribution width (RBC) [Ratio] 13.1 % Normal 11.7-14.4 [facility] Comment on above: Performed By: #### C BCD1 #### [facility] [address] [place] [address] Hematocrit (Bld) [Volume fraction] 36.3 % Normal 34.1-44.9 [facility] Comment on above: Performed By: #### C BCD1 #### [facility] [address] [place] [address] Hemoglobin (Bld) [Mass/Vol] 12.3 g/dL Normal 11.2-15.7 [facility] Comment on above: Performed By: #### C BCD1 #### [facility] [address] [place] [address] Immature Grans 0.50 % Normal [facility] Comment on above: Performed By: #### C BCD1 #### [facility] [address] [place] [address] Lymphocytes (Bld) [#/Vol] 1.77 thou/cmm Normal 1.18-3.74 [facility] Comment on above: Performed By: #### C BCD1 #### [facility] [address] [place] [address] Lymphocytes/100 WBC (Bld) 16.9 % Normal [facility] Comment on above: Performed By: #### C BCD1 #### [facility] [address] [place] [address] MCH (RBC) [Entitic mass] 32.7 pg High 25.6-32.2 [facility] Comment on above: Performed By: #### C BCD1 #### [facility] [address] [place] [address] MCHC (RBC) [Mass/Vol] 33.9 % Normal 31.6-34.[address] [facility] Comment on above: Performed By: #### C BCD1 #### [facility] [address] [place] [address] MCV (RBC) [Entitic vol] 96.5 fL High 79.4-94.8 [facility] Comment on above: Performed By: #### C BCD1 #### [facility] [address] [place] [address] Monocytes/100 WBC (Bld) 3.8 % Normal [facility] Comment on above: Performed By: #### C BCD1 #### [facility] [address] [place] [address] Platelet mean volume (Bld) [Entitic vol] 9.8 fL Normal 9.4-12.3 [facility] Comment on above: Performed By: #### C BCD1 #### [facility] [address] [place] [address] Platelets (Bld) [#/Vol] 249 thou/cmm Normal 182-369 [facility] Comment on above: Performed By: #### C BCD1 #### [facility] [address] [place] [address] RBC (Bld) [#/Vol] 3.76 mil/cmm Low 3.93-5.22 [facility] Comment on above: Performed By: #### C BCD1 #### [facility] [address] [place] [address] RDW SD 46.2 fl Normal 36.4-46.3 [facility] Comment on above: Performed By: #### C BCD1 #### [facility] [address] [place] [address] Seg Neutrophil 78.2 % Normal [facility] Comment on above: Performed By: #### C BCD1 #### [facility] [address] [place], [place] [address] WBC (Bld) [#/Vol] 10.49 thou/cmm High 3.98-10.[address] [facility] Comment on above: Performed By: #### C BCD1 #### [facility] [address] [place] [id number] Protimeon 05-16-2020 INR Coag (PPP) [Relative time] 0.96 {INR} Normal 0.90-1.30 [facility] Comment on above: Result Comment: Saundra min K Antagonist (VKA) Therapeutic Range: INR 2 to 3 (Target INR of 2.5) Note: For patients treated with VKA drugs, such as warfarin, the [employer] [employer] 2012 Guideline recommends a therapeutic INR range of 2 to 3 (target INR of 2.5). This recommendation includes high-risk patients with antiphospholipid syndrome with previous arterial or venous thromboembolism, current-generation mechanical or bioprosthetic aortic heart valve replacement. Note: Patients with mechanical aortic valve replacement and additional risk factors for thromboembolic events (atrial fibrillation, previous thromboembolism, LV dysfunction, hypercoagulable conditions) or an older generation mechanical AVR (i.e., ball in-Cage) or any mechanical MVR should have a INR therapeutic range of 2.5 to 3.5 target INR of 3). Delaney GALLAGHER, et al. Chest 2012; 141:7S-47S Connor RA et al. [facility] 2017; 70: 252-289 Performed By: #### P T #### [facility] [address] [place] [id number] PT Coag (PPP) [Time] 10.4 s Normal 9.7-13.0 [facility] Comment on above: Performed By: #### P T #### [facility] [address] [place] [id number] Salicylateon 05-16-2020 Salicylate <1.0 Low 3.0-30.0 [facility] Comment on above: Result Comment: The therapeutic range varies and has been reported to be 3.0 to 10.0 mg/dL for anti-pyretic/analgesic conditions and 15.0 to 30.0 mg/dL for anti-inflammatory/rheumatic fever conditions. Ranges published by the instrument inspector paper products. Reference ranges and high/low indicator flags are provided as general guidelines only. The treating physician must determine appropriate target levels/dosing based on the specific clinical situation. Performed By: #### C BCD1 #### [place] [address] Troponin T, High Sens.on Troponin T, High Sens. 17 ng/L High 0-11 [facility] Comment on above: Result Comment: Faiza ents taking a biotin dose of up to 5 mg/day should refrain from taking biotin for 4 hours prior to sample collection. Patients taking a biotin dose of 5 to 10 mg/day should refrain from taking biotin for 8 hours prior to sample collection. Patients taking a biotin dose > 10 mg/day should consult with their physician or the laboratory prior to having a sample taken. Clinicians should consider biotin interference as a source of error, when clinically suspicious of the laboratory result. Performed By: #### T ROPT #### [place] [address] Urine Drug Screenon 05-16-20 20 Urine Alcohol <11 Normal 0-11 [facility] Comment on above: Performed By: #### C BCD1 #### [place] [address] Urine Amphetamine Negative Normal NEGATIVE [facility] Comment on above: Performed By: #### C BCD1 #### [place] [address] Urine Barbiturates Negative Normal NEGATIVE [facility] Comment on above: Performed By: #### C BCD1 #### [place] [address] Urine Benzodiazepine Negative Normal NEGATIVE [facility] Comment on above: Performed By: #### C BCD1 #### [place] [address] Urine Cocaine Metab Negative Normal NEGATIVE [facility] Comment on above: Performed By: #### C BCD1 #### [place] [address] Urine Opiates Negative Normal NEGATIVE [facility] Comment on above: Performed By: #### C BCD1 #### [facility] [address] [place], [place] [address] Urine Oxycodone Negative Normal NEGATIVE [facility] Comment on above: Performed By: #### C BCD1 #### [facility] [address] [place], [place] [address] Urine PCP Negative Normal NEGATIVE [facility] Comment on above: Result Comment: Test Cutoff Unit Amphetamines 1000 ng/mL Barbiturates 200 ng/mL Benzodiazepines 200 ng/mL Cannabinoids 50 ng/mL Cocaine 300 ng/mL Opiates 300 ng/mL Oxycodone 100 ng/mL Phencyclidine 25 ng/mL Reference Range: Negative at cutoff threshold Immunoassay screen only. Cross reactivity with other substances can occur with immunoassay screening. Detection of any drug(s) in this urine toxicology panel is presumptive only. These tests are for medical purposes only and should not be used for compliance monitoring, legal, or forensic use. In clinical settings, confirmatory testing is at the practitioner?s discretion.1 If clinically indicated, confirmation by high specificity, quantitative methodology may be requested on the same specimen through the laboratory at ([phone]) if contacted within 48 hours of initial 1. Substance Abuse and Mental Health Services Administration (2012). Clinical Drug Testing in Primary Care Technical Assistance Publication Series 32. Department of Health and Human Services, [place], p.10. Performed By: #### C BCD1 #### [facility] [address] [place], [place] [address] Urine THC Negative Normal NEGATIVE [facility] Comment on above: Performed By: #### C BCD1 #### [facility] [address] [place], [place] [address] XR CHEST 2V FRONTAL/LATon XR CHEST 2V FRONTAL/LAT Final Report DATE OF EXAM: May 16 2020 7:28PM [id number] - XR CHEST 2V FRONTAL/LAT / PROCEDURE REASON: Chest pain Physician Interpretation EXAMINATION: CHEST RADIOGRAPH (2 VIEW FRONTAL & LATERAL) CLINICAL HISTORY: Chest pain MQ: [id number] EXAM DATE/TIME: 05/16/2020 7:28 PM COMPARISON: No relevant prior studies available. RESULT: Lines, tubes, and devices: None. Lungs and pleura: Small lung volume due to inadequate inspiration. There appears to be slight prominence of the pulmonary markings. The lateral view is compromised due to motion artifact. No pleural effusions or pneumothorax. Cardiomediastinal silhouette: Unremarkable cardiomediastinal silhouette. Bones and soft tissues: Unremarkable. IMPRESSION: No definite acute radiographic abnormality. Air And Water Tester: ALEXANDRO Transcribe Date/Time: May 16 2020 7:42P Dictated by : ROSY VALDEZ MD This examination was interpreted and the report reviewed and electronically signed by: ROSY VALDEZ MD on May 16 2020 7:43PM EST Normal [facility] CT ANGIOGRAPHY NECK W/CONTRA STon 04-06-2020 CT ANGIOGRAPHY NECK W/CONTRAST ORIGINAL CT ANGIOGRAPHY NECK W/CONTRAST Clinical Statement: CAROTID STENOSIS TECHNIQUE: Nonionic intravenous contrast material was administered and axial images were obtained through the neck per standard CTA protocol. Multiplanar reformatted and shaded-surface display and three dimensional volume rendered images were generated. Where applicable, evaluation of ICA stenosis was performed using the site of greatest stenosis is compared to the diameter of the ICA distal to the stenosis at a point where the ICA batres become parallel. This exam was performed according to our departmental dose optimization program, and includes the following measures where applicable: automated exposure control, adjustment of the mAs and/or kVp according to patient size and/or exam, and an iterative reconstruction algorithm. COMPARISON: None. FINDINGS: Atherosclerotic disease is seen in the aortic arch. The imaged aortic arch is normal. The origins of the innominate, bilateral common carotid, bilateral subclavian, and RIGHT vertebral arteries demonstrate no significant stenosis. The LEFT vertebral artery is occluded at the origin. There is calcified and noncalcified atherosclerotic irregularity at the RIGHT carotid bifurcation which results in severe stenosis of at least 71%, likely under estimated due to decreased caliber of the distal vessel. Poststenotic dilatation of the carotid bulb identified. Apical scarring irregularity seen in the cavernous carotid artery as well. The RIGHT MCA and RIGHT A1 segment are diminutive. There is hypodensity in the RIGHT MCA territory suggesting infarct, only partially seen. There is predominantly noncalcified atherosclerotic irregularity at the LEFT carotid bulb with less than 50% stenosis. However, there is ulcerated plaque of the proximal IAC. Atherosclerotic irregularity seen of the cavernous LEFT ICA. The RIGHT vertebral artery is patent and dominant. The LEFT vertebral artery is occluded at the origin with minimal reconstitution of the distal V2 segment which remains patent through the terminus. The basilar artery is small but there are bilateral posterior communicating arteries. Multilevel degenerative changes are identified in the spine. IMPRESSION: 1. Severe RIGHT ICA stenosis of at least 71% which is likely underestimated due to decreased caliber of the distal vessel. 2. Less than 50% LEFT ICA stenosis. 3. Ulcerated plaque at the LEFT carotid bifurcation. 4. 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 5. Diminutive RIGHT MCA and RIGHT A1 segment with infarct seen in the RIGHT MCA distribution. Interpreted By: Tammie Rush MD Preliminary Report By: Tammie Rush MD Electronically Signed By: Tammie Rush MD Dictated Date: 04/06/2020 9:06:49 AM Prelim Date: 04/06/2020 9:06:49 AM Sign Date: 04/06/2020 9:19:23 AM Ordering Provider:Michael Castanon [facility] ([place]) Culture, urine Bacteria identified Cx Nom (U) Yeast, not Karen albicans [facility] Work Phone: Vital Signs Date Time Vital Sign Value Performing Clinician [facility] 05-26-2025 10:04-0400 Body height 160 cm Paty Fonseca [employer] Work Phone: [facility] 05-26-2025 10:04-0400 Body height 160.02 cm Paty Sarahgar [employer] LAW[employer]EQUIPMENT TESTER Work Phone: [facility] [place] [facility] 05-26-2025 10:04-0400 Body mass index (BMI) [Ratio] 30.22 kg/m2 Paty Sarahgar [employer] LAW[employer]EQUIPMENT TESTER Work Phone: [facility] 05-26-2025 10:04-0400 Body weight 77 kg Paty Sarahgar [employer] LAWYER[employer]EQUIPMENT TESTER Work Phone: [facility] [place] [facility] 05-26-2025 10:04-0400 Body weight 77.11 kg Paty Fonseca DIV[employer] LAWYER-EQUIPMENT TESTER Work Phone: [facility] 05-26-2025 10:04-0400 SITE #1 Paty Fonseca DIV[employer] LAWYER-EQUIPMENT TESTER Work Phone: [facility] 05-26-2025 10:04-0400 Diastolic blood pressure 80 mm[Hg] Paty Sarahmarlee [employer] LAWYER-EQUIPMENT TESTER Work Phone: [facility] [place] 05-26-2025 10:04-0400 Heart rate 81 /min Paty Raymundo [employer] LAW[employer]ER[employer]EQUIPMENT TESTER Work Phone: [facility] 05-26-2025 10:04-0400 HGHTCHNVIS Paty Fonseca [employer] LAWYER-EQUIPMENT TESTER Work Phone: [facility] [place] 05-26-2025 10:04-0400 Systolic blood pressure 130 mm[Hg] Paty Sarahmarlee [employer] LAWYER[employer]EQUIPMENT TESTER Work Phone: [facility] [place] 05-26-2025 10:04-0400 VITALSDONE Paty Sarahmarele [employer] LAW[employer]ER[employer]EQUIPMENT TESTER Work Phone: [facility] [place] 03-25-2025 09:37-0400 Diastolic blood pressure 56 mm[Hg] Stew Oswald MD Work Phone: [employer] 03-25-2025 09:37-0400 Heart rate 51 /min Stew Oswald MD Work Phone: [facility] 03-25-2025 09:37-0400 Systolic blood pressure 90 mm[Hg] Stew Oswald MD Work Phone: [facility] 02-06-2025 08:58-0400 Diastolic blood pressure 85 mm[Hg] Stew Oswald MD Work Phone: [facility] 02-06-2025 08:58-0400 Heart rate 84 /min Stew Oswald MD Work Phone: [facility] 02-06-2025 08:58-0400 Systolic blood pressure 134 mm[Hg] Stew Oswald MD Work Phone: [facility] Encounters Encounter Date Encounter Type Care Provider Facility Start: 05-26-2025 In-person encounter Paty Fonseca DIVORCE LAWYER-EQUIPMENT TESTER Work Phone: [facility] Work Phone: Start: 05-26-2025 Visit out of hours Paty Raymundo SAL-EQUIPMENT TESTER Work Phone: [employer] Work Phone: Start: 04-01-2025 ambulatory Robb ROB Facil ity:[facility] Start: 04-01-2025 Registered Referred Robb [place] - [address] Start: 03-25-2025 End: 03-25-2025 Office outpatient visit 15 minutes Stew Oswald MD Work Phone: [facility] Comment on above: Focal epilepsy with impairment of consciousness, intractable (HCC) (Primary Dx); Carotid stenosis, symptomatic, with infarction (HCC); Hemiparesis affecting left side as late effect of cerebrovascular accident (CVA) (HCC) Start: 03-25-2025 End: 03-25-2025 ambulatory [facility] Start: 03-06-2025 End: 03-06-2025 ambulatory Robb ROB [facility] Work Phone: Start: 03-06-2025 End: 03-06-2025 Departed Referred Robb Faith [facility] - [address] Start: 03-06-2025 End: 03-06-2025 ambulatory Robb ROB Facility:[facility] Start: 02-12-2025 End: 02-12-2025 ambulatory [facility] Start: 02-10-2025 End: 02-10-2025 Telephone encounter Stew Oswald MD Work Phone: [facility] Start: 02-06-2025 End: 02-06-2025 Office outpatient new 60 minutes Stew Oswald MD Work Phone: [facility] Comment on above: Focal epilepsy with impairment of consciousness, intractable (HCC) (Primary Dx); Carotid stenosis, symptomatic, with infarction (HCC); Hemiparesis affecting left side as late effect of cerebrovascular accident (CVA) (HCC) Start: 02-06-2025 End: 02-06-2025 ambulatory STEW OSWAL[facility] Start: 01-14-2025 End: 01-14-2025 ambulatory Robb ROB [facility] Work Phone: Start: 01-14-2025 End: 01-14-2025 Departed Referred Robb Barnes -[facility] - [address] Start: 01-14-2025 End: 01-14-2025 ambulatory Robb ROB Facility:[facility] Start: 01-09-2025 End: 01-13-2025 Evaluation and management of inpatient ELIA CARRENO II Facility:[facility] Start: 01-01-2025 End: 01-15-2025 Telephone encounter Stew Oswald MD Work Phone: [facility] Comment on above: Appointment Request Start: 12-31-2024 ambulatory Robb ROB Facil ity:[facility] Start: 12-31-2024 Registered Referred Robb Barnes -[facility] [place] - [address] Start: 12-30-2024 Registered Referred Robb Barnes -[facility] [place] - [address] Start: 12-30-2024 End: 12-30-2024 ambulatory Robb ROB Facility:[facility] Start: 12-24-2024 ambulatory [facility] Facility:[facility] Start: 12-24-2024 Registered Referred [facility] -[facility] - [address] Start: 12-22-2024 ambulatory Robb ROB Facil ity:[facility] Start: 12-22-2024 Registered Referred Robb Barnes -[facility] [place] - [address] Start: 12-14-2024 Emergency department patient visit ELIA ICJONNY II Facility:[facility] Start: 11-27-2024 ambulatory Robb ROB Facil ity:[facility] Start: 11-27-2024 Registered Referred Robb Barnes -[facility] [place] - [address] Start: 10-27-2024 Registered Referred Robb Stephany -[facility] [place] - [address] Start: 10-27-2024 End: 10-27-2024 ambulatory Robb ROB Facility:[facility] Start: 08-27-2024 End: 08-27-2024 ambulatory Robb ROB Facility:[facility] Start: 08-22-2024 End: 08-22-2024 ambulatory Robb ROB Facility:[facility] Start: 05-27-2024 End: 05-27-2024 ambulatory Robb ROB Facility:[facility] Start: 12-24-2023 End: 12-24-2023 ambulatory [facility] Work Phone: Start: 12-24-2023 End: 12-24-2023 Departed Referred [facility] - [address] Start: 11-13-2023 End: 11-13-2023 ambulatory [facility] Work Phone: Start: 11-13-2023 End: 11-13-2023 Departed Referred [facility] [place] - [address] Start: 11-13-2023 Registered Referred [facility] [place] - [address] Start: 11-08-2023 End: 11-08-2023 ambulatory [facility] Work Phone: Start: 11-08-2023 End: 11-08-2023 Departed Referred [facility] - [address] Start: 08-24-2023 End: 08-24-2023 ambulatory [facility] Work Phone: Start: 08-24-2023 End: 08-24-2023 Departed Referred [facility] [place] - [address] Start: 08-03-2023 End: 08-03-2023 ambulatory [facility] Work Phone: Start: 08-03-2023 End: 08-03-2023 Departed Referred [facility] - [address] Start: 06-07-2023 End: 06-07-2023 Departed Referred [facility] - [address] Start: 03-20-2023 End: 03-20-2023 ambulatory [facility] Work Phone: Start: 03-20-2023 End: 03-20-2023 Departed Referred [facility] [place] - [address] Start: 01-04-2023 End: 01-04-2023 ambulatory [facility] Work Phone: Start: 01-04-2023 End: 01-04-2023 Departed Referred [facility] [place] - [address] Start: 09-13-2022 End: 09-13-2022 ambulatory [facility] Work Phone: Start: 09-13-2022 End: 09-13-2022 Departed Referred [facility] - [address] Start: 09-06-2022 ambulatory Marcus Tierney MD Work Phone: [facility] Start: 08-03-2022 End: 08-03-2022 ambulatory [facility] Work Phone: Start: 08-03-2022 End: 08-03-2022 Departed Referred [facility] [place] - [address] Start: 06-25-2022 End: 06-25-2022 ambulatory [facility] Work Phone: Start: 06-25-2022 End: 06-25-2022 Departed Referred [facility] - [address] Start: 06-21-2022 Telephone encounter Bipin Dennis MD Work Phone: [facility] Comment on above: Appointment Start: 06-19-2022 Telephone encounter Bipin Dennis MD Work Phone: [facility] Comment on above: Appointment Start: 04-21-2022 End: 04-21-2022 Departed Referred [facility] - [address] Start: 02-28-2022 End: 02-28-2022 Departed Referred [facility] - [address] Start: 12-05-2021 End: 12-05-2021 Departed Referred [facility] - [address] Start: 12-05-2021 Registered Referred [facility] - [address] Start: 12-01-2021 End: 12-01-2021 Departed Referred [facility] - [address] Start: 12-01-2021 Registered Referred [facility] - [address] Start: 11-16-2021 Registered Referred [facility] - [address] Start: 11-08-2021 Registered Referred [facility] - [address] Start: 10-21-2021 Registered Referred [facility] - [address] Start: 09-19-2021 Registered Referred [facility] - [address] Procedures Date Procedure Procedure Detail Performing Clinician Start: 05-26-2025 Blood pressure within normal parameters - no follow-up required Paty Fonseca DIVORCE LAWYER-EQUIPMENT TESTER Work Phone: Start: 05-26-2025 BMI outside of normal parameters - no follow-up plan/reason not given Paty Fonseca DIVORCE LAWYER-EQUIPMENT TESTER Work Phone: Start: 05-26-2025 Current tobacco non-user cad cap copd pv dm Paty Fonseca DIVORCE LAWYER-EQUIPMENT TESTER Work Phone: Start: 05-26-2025 Documentation of current medications Paty Fonseca DIVORCE LAWYER-EQUIPMENT TESTER Work Phone: Start: 05-26-2025 Pain assessment documented as positive - no follow-up/reason not given Paty Fonseca DIVORCE LAWYER-EQUIPMENT TESTER Work Phone: Start: 04-01-2025 Urnls dip stick/tablet reagent auto microscopy Robb ROB Start: 04-01-2025 Urine culture Robb ROB Start: 03-06-2025 Procedure Robb ROB Comment on above: Test Ordered: [id number] LacosamideTest(s) 0 09307-[id number] developed and its performance characteristicsdetermined by [employer]. It has not been cleared or approvedby the Food and Drug Administration.Lacosamide 7.2 ug/mL Reference Range: 5.0-10.0 Limit of Detection 0.5 Mean plasma concentrations following maintenance dose 200 mg/day 4.99 +/- 2.51 ug/mL 400 mg/day 9.35 +/- 4.22 ug/mL 600 mg/day 12.46 +/- 5.60 ug/mLPerformed at: - [facility] [id number] Director: Hank Spangler MD, Phone: [phone] at: [facility] [address] [id number] Director: Angel Franklin PhD, Phone: [phone] Start: 01-10-2025 Thyrotropin [Units/volume] in Serum or Plasma Stew Oswald MD Work Phone: Start: 12-30-2024 Urine culture Robb ROB Start: 12-30-2024 Urnls dip stick/tablet reagent auto microscopy Robb ROB Start: 12-22-2024 Urnls dip stick/tablet reagent auto microscopy Robb ROB Start: 12-22-2024 Urine culture Robb ROB Start: 11-27-2024 Measurement of renal function Robb ROB Comment on above: GFR Calc Start: 11-27-2024 Valproic acid measurement Robb ROB Start: 09-19-2021 End: 09-19-2021 Clostridium difficile detection Start: 07-21-2020 Mammography Bipin Dennis MD Work Phone: Start: 02-19-2018 Colonoscopy Bipin Dennis MD Work Phone: Urine culture Plan of Treatment Date Care Activity Detail Author Start: 02-20-2028 Colonoscopy COLONOSCOPY [facility] Start: 02-20-2028 COLORECTAL CANCER SCREENING COLORECTAL CANCER SCREENING [facility] Start: 2026 RSV Immunization for Adults (1 - 1-dose 75+ series) RSV Immunization for Adults (1 - 1-dose 75+ series) [facility] Start: 02-08-2026 LIPID SCREEN LIPID SCREEN [facility] Start: 03-22-2026 Thyroid stimulating hormone measurement TSH Level [facility] Start: 09-24-2025 End: 09-24-2025 Patient encounter procedure 09/24/2025 10:40 AM EST Office Visit [facility] [address] [phone] Stew Oswald MD [address] [address] [facility] Start: 07-02-2025 End: 07-02-2025 [employer] Work Phone: Start: 06-22-2025 Influenza vaccination Influenz a Vaccine (Season Ended) [facility] Start: 05-26-2025 End: 05-26-2025 [employer] Work Phone: Start: 05-26-2025 Fluoroscopic guidanc e needle placement add on [facility] [place] Work Phone: Start: 04-09-2025 End: 04-09-2025 Patient encounter procedure 04/09/2025 9:20 AM EDT Office Visit [facility] [address] [phone] Stew Oswald MD [address] [address] [facility] Start: 03-25-2025 End: 03-25-2025 Patient encounter procedure 03/25/2025 10:20 AM EDT Office Visit [facility] [address] [phone] Stew Oswald MD [address] [address] [facility] Start: 03-08-2025 End: 02-06-2026 Lacosamide level Lacosamide level Lab Routine Focal epilepsy with impairment of consciousness, intractable (HCC) Expected: 03/08/2025 (Approximate), Expires: 02/06/2026 [facility] Work Phone: Comment on above: Expected: 03/08/2025 (Approximate), Expires: 02/06/2026 Start: 02-12-2025 End: 02-12-2025 Patient encounter procedure 02/12/2025 11:00 AM EDT Appointment [facility] [address] [place] [address] Stew Oswald MD [address] [facility] [address] [place] [address] [facility] Start: 11-04-2024 DIABETES SCREEN DIABETES SCREEN [facility] Start: 10-22-2024 Medicare Advantage Annual Wellness Visit Medicare Advantage Annual Wellness Visit [facility] Start: 06-22-2024 COVID-19 Vaccine ( season) COVID-19 Vaccine () [facility] Start: 06-22-2024 Influenza vaccination Influenza Vacc ine (#1) [facility] Start: 10-21-2022 FECAL OCCULT BLOOD FECAL OCCULT BLOO D [facility] Start: 10-21-2022 Screening for malign ant neoplasm of colon [facility] Start: 07-21-2022 Mammography MAMMOGRAM [facility] Start: 06-22-2022 Influenza vaccination INFLUENZA (#1) [facility] Start: 10-27-2021 ANNUAL PCP TEAM RESIDENT CARE TECHNICIAN DAMEON DISEASE VISIT ANNUAL PCP TEAM CHRONIC DISEASE VISIT [facility] Start: 10-22-2021 ADVANCE DIRECTIVE DISCUSSION ADVANCE DIRECTIVE DISCUSSION [facility] Start: 02-16-2021 DTaP/Tdap/Td Vaccine s (2 - Td or Tdap) DTaP/Tdap/Td Vaccines (2 - Td or Tdap) [facility] Start: 02-16-2021 Urine microalbumin profile DTAP,TDAP,TD (2 - Td or Tdap) [facility] Start: 09-28-2020 SHINGRIX VACCINE (3 of 3) SHINGRIX VACCINE (3 of 3) [facility] Start: 09-28-2020 Zoster Vaccines (3 o f 3) Zoster Vaccines (3 of 3) [facility] Start: 1996 COLOGUARD (FIT-DNA) COLOGUARD (FIT-D NA) [facility] Start: [address] COLONOGRAPHY [facility] Start: 1996 SIGMOIDOSCOPY SIGMOIDOSCOPY [facility] Start: 1991 Screening for malign ant neoplasm of breast Mammogram [facility] Start: 1969 BP CONTROLLED (<130/80) BP CONTROLLE D (<130/80) [facility] Start: 1969 Hepatitis C screening Hepatitis C Sc reening [facility] Start: 1963 Depression Monitoring Depression Mon itoring [facility] Start: 1950 COVID-19 VACCINE (#1) COVID-19 VACCI NE (#1) [facility] Start: 1950 Lipid panel Lipid Panel [facility] Start: 1950 Screening for malign ant neoplasm of colon [facility] End: 10-06-2023 Screening mammography bi 2-view breast inc cad JANET SCREENING Radiology Routine Encounter for screening mammogram for breast cancer 1 Occurrences starting 09/06/2022 until 10/06/2023 [facility] Work Phone: Comment on above: 1 Occurrences starti ng 09/06/2022 until 10/06/2023 [facility] c Immunizations Immunization Date Immunization Notes Care Provider [facility] 08-03-2020 influenza, high dose seasonal, preservative-free Bipin Dennis MD Work Phone: [facility] 08-03-2020 zoster vaccine recombinant Bipin Dennis MD Work Phone: [facility] 08-03-2020 influenza virus vacc ine, unspecified formulation Stew Oswald MD Work Phone: [facility] 09-19-2019 Seasonal trivalent influenza vaccine, adjuvanted, preservative free Bipin Dennis MD Work Phone: [facility] 08-19-2018 pneumococcal polysaccharide vaccine, 23 valent Bipin Dennis MD Work Phone: [facility] 08-19-2018 Seasonal trivalent influenza vaccine, adjuvanted, preservative free Bipin Dennis MD Work Phone: [facility] 07-29-2017 influenza, high dose seasonal, preservative-free Bipin Dennis MD Work Phone: [facility] 03-26-2017 pneumococcal conjuga te vaccine, 13 valent Bipin Dennis MD Work Phone: [facility] 07-21-2016 influenza, seasonal, injectable Bipin Dennis MD Work Phone: [facility] 05-18-2015 zoster vaccine, live Bipin Dennis MD Work Phone: [facility] 04-21-2015 zoster vaccine, live Bipin Dennis MD Work Phone: [facility] 07-07-2013 influenza, seasonal, injectable Bipin Dennis MD Work Phone: [facility] 02-16-2011 tetanus toxoid, redu mayelin diphtheria toxoid, and acellular pertussis vaccine, adsorbed Bipin Dennis MD Work Phone: [facility] Payers Date Payer Category Payer Unknown [id number] 2024 Self-pay [id number] 2023 Medicaid HMO [facility] MEDICAID ONLY [id number] 2023 Medicare HMO [id number] 2023 Unknown [id number] 2021 Medicaid MEDICAID [facility] MEDICAID [id number] 2021-Present [phone] [address] [place] [address] Medicaid [id number] 2021 Medicaid [id number] 2021 Medicare [facility] MEDICAR E [facility] MEDICARE HMO [id number] 2021-Present [phone] [address] [address] [place] [address] HMO [id number] 2021 Private Health Insurance [id number] Medicare [id number] Unknown [facility] Pickup Services [employer] [facility] [id number] Unknown [id number] Unknown [id number] Unknown [id number] 462 Unknown [id number] Unknown [id number] 462 Unknown [id number] 462 Unknown [id number] 462 Unknown [id number] 462 Unknown [id number] Unknown [id number] 462 Unknown [id number] 462 Unknown [id number] 462 Social History Date Type Detail Facility Tobacco smoking stat [facility] Unknown if ever smoked [facility] Work Phone: Start: 1950 Sex Assigned At Female [facility] Start: 03-05-2020 End: 02-06-2025 Tobacco smoking status NHIS Ex-smoker [facility] History of tobacco use Current smoker [facility] Start: 03-05-2020 Tobacco use and exposure Smokeless tobacco non-user [facility] Start: 10-27-2021 Alcohol intake Current drinke r of alcohol (finding) [facility] Start: 03-05-2020 History SDOH Alcohol Comment rarely [facility] Start: 06-03-2020 History SDOH Financial 5 [facility] Start: 06-03-2020 History SDOH Food Worry 1 [facility] Start: 06-03-2020 History SDOH Transpo rt Med 2 [facility] Start: 03-05-2020 Tobacco Comment quit [address] [facility] Start: 1950 Sex Assigned At Not on file C [facility] Tobacco smoking stat [facility] Tobacco smoking consumption unknown [facility] Start: 05-22-2022 End: 01-29-2025 Sex Female (finding) [facility] Start: 02-06-2025 End: 05-26-2025 Gender identity Not on file [facility] History of tobacco use Cigarette Smoker [facility] History of tobacco use Passive smoker [facility] Start: 02-06-2025 Tobacco use and exposure Former smokeless tobacco user [facility] Start: 02-06-2025 End: 03-25-2025 History of Social function [facility] Start: 03-25-2025 Alcoholic beverage intake Ex-drinker (finding) [facility] Clinical Notes 11-03-2021 to 03-25-2025 Stew Oswald MD - 03/25/2025 10:20 AM EDTTelephone Encounter - Stew Oswald MD - 02/10/2025 5:36 PM EDTTelephone Encounter - Stew Oswald MD - 02/10/2025 5:36 PM EDT Note Date & Type Note Facility 03-25-2025 History of Present illness Narrative Images from the original note were not included. [facility] [place] [address] [place] [address] [facility] [address] Dept: [phone] Dept Loc: [phone] Stew Oswald MD CHIEF COMPLAINT: Chief Complaint Patient presents with Follow-up Seizures HISTORY OF PRESENT ILLNESS: The patient is a 74 y.o. person who returns with history of left hemiparesis after a stroke and convulsions. She denies any seizures since she was last here. She reports that she did have carotid ultrasound testing, but I do not have access to that report. She reports that knee pain in the left knee. She reports that this is limiting her from trying PT for regaining her left leg strength. She reports that she is actively seeing [facility] (I saw them a couple of weeks ago). Past Medical History: has a past medical history of Carotid stenosis, symptomatic, with infarction (HCC), Hemiparesis affecting left side as late effect of cerebrovascular accident (CVA) (HCC), Hyperlipidemia, and Hypothyroid. Past Surgical History: has a past surgical history that includes Appendectomy and total abdominal hysterectomy w bilateral salpingo-oophorectomy (historical). Medications: Current Medications[1] Allergies: Codeine and Levetiracetam Social History: Social History Socioeconomic History Marital status: Unknown Spouse name: Not on file Number of children: Not on file Years of education: Not on file Highest education level: Not on file Occupational History Not on file Tobacco Use Smoking status: Former Types: Cigarettes Passive exposure: Past Smokeless tobacco: Former Vaping Use Vaping status: Never Used Substance and Sexual Activity Alcohol use: Not Currently Drug use: Not Currently Sexual activity: Defer Other Topics Concern Not on file Social History Narrative Not on file Social Drivers of Health Financial Resource Strain: Low Risk (06/03/2020) Received from [facility] Overall Financial Resource Strain (CARDIA) Difficulty of Paying Living Expenses: Not hard at all Food Insecurity: No Food Insecurity (12/16/2024) Received from [facility] Hunger Vital Sign Worried About Running Out of Food in the Last Year: Never true Ran Out of Food in the Last Year: Never true Transportation Needs: No Transportation Needs (12/16/2024) Received from [facility] PRAPARE - Transportation Lack of Transportation (Medical): No Lack of Transportation (Non-Medical): No Physical Activity: Not on file Stress: Not on file Social Connections: Not on file Intimate Partner Violence: Not on file Housing Stability: Low Risk (12/16/2024) Received from [facility] Housing Stability Vital Sign Unable to Pay for Housing in the Last Year: No Number of Times Moved in the Last Year: 1 Homeless in the Last Year: No Family History: Family History[2] REVIEW OF SYSTEMS: Review of Systems Constitutional: Negative for appetite change, chills, diaphoresis, fever and unexpected weight change. HENT: Negative for dental problem and mouth sores. Eyes: Negative for discharge and itching. Respiratory: Negative for chest tightness. Cardiovascular: Negative for chest pain and leg swelling. Gastrointestinal: Negative for rectal pain and vomiting. Endocrine: Negative for polydipsia, polyphagia and polyuria. Genitourinary: Negative for decreased urine volume, flank pain and genital sores. Musculoskeletal: Positive for arthralgias. Left knee pain Skin: Negative for color change. Allergic/Immunologic: Negative for food allergies and immunocompromised state. Neurological: Positive for weakness. Hematological: Negative for adenopathy. Does not bruise/bleed easily. Psychiatric/Behavioral: Negative for agitation, behavioral problems, decreased concentration, sleep disturbance and suicidal ideas. PHYSICAL EXAM: Vitals: BP 90/56 (BP Location: Right arm, Patient Position: Sitting, BP Cuff Size: Adult) Pulse 51 General Appearance: Patient is in no apparent distress. Head is normocephalic, atraumatic Cardiovascular: Regular rate and rhythm. No heart murmurs. No carotid bruit Neurologic: Mentation: Alert and oriented to person, place and date. Speech and Language: Speech and language normal Concentration and Attention: Concentration normal Memory: Memory 3/3 immed, 3/3 short Fund of Knowledge: Fund of knowledge normal Cranial Nerves: II, III, IV, V, , VII, VIII, IX, X, XI, XII tested and were intact including fundoscopic exam (optic discs) and visual field to confrontation. Motor: Strength:Strength 5 out of 5 with normal tone on the right. She has left hemiplegia with increased tone on the left. Alternating Movements: Normal Cogwheel Rigidity: None Tone: Tone is normal Tremor / Involuntary Movements: None Coordination: Normal coordination upper and lower extremities on the right cannot move the left Gait and Station: wheelchair bound DATA EXAMINATION: MRI BRAIN WO IVCON CLINICAL HISTORY: TIA. TECHNIQUE: Routine noncontrast MRI protocol including diffusion images. MQ: MRBWO_2 COMPARISON: CT brain performed 01/09/2025. RESULT: Acute Change: There is no evidence of restricted diffusion to suggest an acute infarct. Hemorrhage: Magnetic susceptibility representing remote blood degradation byproducts at site of remote infarct within the RIGHT MCA territory. Mass Lesion/ Mass Effect: No evidence of an intracranial mass or extra-axial fluid collection. No significant mass effect. Chronic Change: Scattered patchy and confluent areas of increased T2 and FLAIR signal are present in the supratentorial white matter which is nonspecific but likely represents chronic microvascular ischemia. Remote infarct RIGHT MCA territory centered in the RIGHT basal ganglia, insula, temporal lobe, and lateral RIGHT frontal and parietal lobes. Asymmetric diminished volume involving the RIGHT cerebral peduncle with mild T2 and FLAIR hyperintensity reflecting Wallerian degeneration. Parenchyma: There is moderate generalized parenchymal volume loss. The brain parenchyma is otherwise within normal limits of signal intensity and morphology. Ventricles: Ventriculomegaly corresponds to the degree of parenchymal volume loss. Skull Base: Hypothalamic and pituitary region are grossly normal. Craniocervical junction is normal. No significant marrow replacement process. Vasculature: Loss of flow void within the RIGHT cervical and petrous as well as supraclinoid ICA reflecting occlusion or slow flow. Other: The visualized paranasal sinuses and mastoid air cells are clear. The orbits and extracranial soft tissues are unremarkable. Exam End: 01/11/25 16:24 Specimen Collected: 01/11/25 16:24 Impression IMPRESSION: No acute intracranial process. Chronic changes and remote infarcts. Air And Water Tester: ALEXANDRO Transcribe Date/Time: Jan 11 2025 5:04P @RESULTINGLABINFO@ No results found for: LEVETIRACETA, FERRITIN, CRP, DANIEL, ANCA No results found for: KIANNA, IMMUNOGLOBUL, OLIGOBANDS No results found for: SGD12GL, HEPCAB No results found for: CRP, ANATITER, ANCA ASSESSMENT AND PLAN: Diagnosis Plan 1. Focal epilepsy with impairment of consciousness, intractable (HCC) Vimpat 100 MG tablet 2. Carotid stenosis, symptomatic, with infarction (HCC) 3. Hemiparesis affecting left side as late effect of cerebrovascular accident (CVA) (HCC) Continue the Vimpat. She reports that she had a Vimpat level drawn but the result was not available for me to review today. Continue the Vimpat. She reports that she had the carotid ultrasound that I ordered, but the result was not available to me today for this visit. Will ask for the result. Stable. She is already seeing Ortho for her left knee pain that limits her recovery. I, Stew Oswald MD, furnish ongoing care related to Elba price, serious and complex condition(s) epilepsy, stroke. I assume responsibility for the patient's ongoing medical care of this condition. I spent 20 minutes caring for this patient today, reviewing labs and records, seeing the patient, documenting in the record and arranging for studies. [1] Current Outpatient Medications: acetaminophen (Tylenol) 325 MG tablet, Take 650 mg by mouth every 6 hours as needed., Disp: , Rfl: alendronate (Fosamax) 70 MG tablet, Take 70 mg by mouth once a week., Disp: , Rfl: calcium carbonate-cholecalciferol (Oyster Shell) 250-3.125 MG-MCG tablet, Take 1 tablet by mouth., Disp: , Rfl: clopidogrel (Plavix) 75 MG tablet, Take 75 mg by mouth daily., Disp: , Rfl: D-Mannose 500 MG capsule, Take 500 mg by mouth daily., Disp: , Rfl: Diclofenac Sodium (Voltaren) 1 % gel, Apply 4 g topically 3 times a day., Disp: , Rfl: DULoxetine (Cymbalta) [address] capsule, Take 30 mg by mouth daily., Disp: , Rfl: estradiol (Vivelle-DOT) 0.05 MG/24HR, Place 1 patch on the skin once a week., Disp: , Rfl: ferrous sulfate 325 (65 Fe) MG tablet, Take 325 mg by mouth every other day., Disp: , Rfl: lacosamide (Vimpat) 100 MG tablet, Take 1 tab po QPM for 10 days, then take 1 tab po BID., Disp: 50 tablet, Rfl: 0 levothyroxine (Synthroid, Levoxyl) 175 MCG tablet, , Disp: , Rfl: LYSINE PO, Take 500 mg by mouth daily. Take 2 tabs daily, Disp: , Rfl: MAGNESIUM OXIDE PO, Take 250 mg by mouth daily., Disp: , Rfl: mirabegron ER (Myrbetriq) 25 MG 24 hr tablet, Take 25 mg by mouth daily., Disp: , Rfl: potassium chloride ER (Micro-K) 10 MEQ ER capsule, Take 10 mEq by mouth daily., Disp: , Rfl: pregabalin (Lyrica) 150 MG capsule, Take 150 mg by mouth daily., Disp: , Rfl: rOPINIRole (Requip) 0.5 MG tablet, Take 1 mg by mouth daily at bedtime., Disp: , Rfl: [START ON 04/04/2025] Vimpat 100 MG tablet, Take 1 tablet (100 mg) by mouth 2 times daily. Do not start before April 04, 2025., Disp: 60 tablet, Rfl: 2 [2] Family History Problem Relation Name Age of Onset Heart disease Mother Heart disease Father Carotid Artery Stenosis Father documented in this encounter [facility] 02-10-2025 Telephone encounter Note OK to send that place the order. [facility] 02-10-2025 Miscellaneous Notes OK to send that place the order. Called [facility]@ [phone]. HARVEY [place] is Valid if performed in facility. Called Ketty @ [facility] [phone] . Ketty-from [facility], said patient was ordered a Vascular US carotic arteries bilateral Ins won't pay if she goes by a cot and this is only way patient can be transferred However, the facility does have a company that comes to [facility] And can do the Vascular US at [facility] Would this be OK? -Ketty at [facility] documented in this encounter [facility] 02-10-[address] Note Called [facility]@ [phone]. Kadi G- Auth is Valid if performed in facility. Called Ketty @ [facility] [phone] . [facility] 02-10-2025 Telephone encounter Note Ketty-from [facility], said patient was ordered a Vascular US carotic arteries bilateral Ins won't pay if she goes by a cot and this is only way patient can be transferred However, the facility does have a company that comes to [facility] And can do the Vascular US at [facility] Would this be OK? -Ketty at [facility] 02-06-2025 History of Present illness Narrative Images from the original note were not included. [facility] [address] [facility] [address] Dept: [phone] Dept Loc: [phone] Stew Oswald MD CHIEF COMPLAINT: Chief Complaint Patient presents with New Patient Memory Loss HISTORY OF PRESENT ILLNESS: The patient is a 74 y.o. person who presents with history of left hemiparesis after a stroke and convulsions. According to her son, she was recently in the hospital at for mental status change and shaking movements in the right arm and right leg. According to a note from from December, she was evaluated by neurology (I do not have that note) and they started her on Vimpat BID. She is not on Vimpat. According to the note from [facility], she had recently been switched from Depakote to Keppra, but she is not on either of those meds currently. She is not a great historian. She denies memory issues, but the chart and the patient's son reports that memory. Her son reports that she was primarily confused and dazed and she has been slowly recovering over the last few weeks. Past Medical History: has a past medical history of Carotid stenosis, symptomatic, with infarction (HCC), Hemiparesis affecting left side as late effect of cerebrovascular accident (CVA) (HCC), Hyperlipidemia, and Hypothyroid. Past Surgical History: has a past surgical history that includes Appendectomy and total abdominal hysterectomy w bilateral salpingo-oophorectomy (historical). Medications: Current Outpatient Medications: acetaminophen (Tylenol) 325 MG tablet, Take 650 mg by mouth every 6 hours as needed., Disp: , Rfl: alendronate (Fosamax) 70 MG tablet, Take 70 mg by mouth once a week., Disp: , Rfl: clopidogrel (Plavix) 75 MG tablet, Take 75 mg by mouth daily., Disp: , Rfl: D-Mannose 500 MG capsule, Take 500 mg by mouth daily., Disp: , Rfl: Diclofenac Sodium (Voltaren) 1 % gel, Apply 4 g topically 3 times a day., Disp: , Rfl: DULoxetine (Cymbalta) [address] capsule, Take 30 mg by mouth daily., Disp: , Rfl: estradiol (Vivelle-DOT) 0.05 MG/24HR, Place 1 patch on the skin once a week., Disp: , Rfl: ferrous sulfate 325 (65 Fe) MG tablet, Take 325 mg by mouth every other day., Disp: , Rfl: levothyroxine (Synthroid, Levoxyl) 175 MCG tablet, , Disp: , Rfl: mirabegron ER (Myrbetriq) 25 MG 24 hr tablet, Take 25 mg by mouth daily., Disp: , Rfl: potassium chloride ER (Micro-K) 10 MEQ ER capsule, Take 10 mEq by mouth daily., Disp: , Rfl: pregabalin (Lyrica) 150 MG capsule, Take 150 mg by mouth daily., Disp: , Rfl: rOPINIRole (Requip) 0.5 MG tablet, Take 1 mg by mouth daily at bedtime., Disp: , Rfl: calcium carbonate-cholecalciferol (Oyster Shell) 250-3.125 MG-MCG tablet, Take 1 tablet by mouth., Disp: , Rfl: lacosamide (Vimpat) 100 MG tablet, Take 1 tab po QPM for 10 days, then take 1 tab po BID., Disp: 50 tablet, Rfl: 0 LYSINE PO, Take 500 mg by mouth daily. Take 2 tabs daily, Disp: , Rfl: MAGNESIUM OXIDE PO, Take 250 mg by mouth daily., Disp: , Rfl: [START ON 03/08/2025] Vimpat 100 MG tablet, Take 1 tablet (100 mg) by mouth 2 times daily. Do not start before March 08, 2025., Disp: 60 tablet, Rfl: 2 Allergies: Codeine and Levetiracetam Social History: Social History Socioeconomic History Marital status: Unknown Spouse name: Not on file Number of children: Not on file Years of education: Not on file Highest education level: Not on file Occupational History Not on file Tobacco Use Smoking status: Former Types: Cigarettes Passive exposure: Past Smokeless tobacco: Former Vaping Use Vaping status: Former Substance and Sexual Activity Alcohol use: Not on file Drug use: Not on file Sexual activity: Not on file Other Topics Concern Not on file Social History Narrative Not on file Social Drivers of Health Financial Resource Strain: Low Risk (06/03/2020) [facility] Overall Financial Resource Strain (CARDIA) Difficulty of Paying Living Expenses: Not hard at all Food Insecurity: No Food Insecurity (12/16/2024) Received from [facility] Hunger Vital Sign Worried About Running Out of Food in the Last Year: Never true Ran Out of Food in the Last Year: Never true Transportation Needs: No Transportation Needs (12/16/2024) Received from [facility] PRAPARE - Transportation Lack of Transportation (Medical): No Lack of Transportation (Non-Medical): No Physical Activity: Not on file Stress: Not on file Social Connections: Not on file Intimate Partner Violence: Not on file Housing Stability: Low Risk (12/16/2024) Received from [facility] Housing Stability Vital Sign Unable to Pay for Housing in the Last Year: No Number of Times Moved in the Last Year: 1 Homeless in the Last Year: No Family History: Family History Problem Relation Name Age of Onset Heart disease Mother Heart disease Father Carotid Artery Stenosis Father REVIEW OF SYSTEMS: Review of Systems Constitutional: Negative for appetite change, chills, diaphoresis, fever and unexpected weight change. HENT: Negative for dental problem and mouth sores. Eyes: Negative for discharge and itching. Respiratory: Negative for chest tightness. Cardiovascular: Negative for chest pain and leg swelling. Gastrointestinal: Negative for rectal pain and vomiting. Endocrine: Negative for polydipsia, polyphagia and polyuria. Genitourinary: Negative for decreased urine volume, flank pain and genital sores. Musculoskeletal: Negative for arthralgias. Skin: Negative for color change. Allergic/Immunologic: Negative for food allergies and immunocompromised state. Neurological: Positive for weakness. Memory loss Hematological: Negative for adenopathy. Does not bruise/bleed easily. Psychiatric/Behavioral: Negative for agitation, behavioral problems, decreased concentration, sleep disturbance and suicidal ideas. PHYSICAL EXAM: Vitals: BP 134/85 (BP Location: Right arm, Patient Position: Sitting, BP Cuff Size: Adult) Pulse 84 General Appearance: Patient is in no apparent distress. Head is normocephalic, atraumatic Cardiovascular: Regular rate and rhythm. No heart murmurs. No carotid bruit Neurologic:MMSE 28/30 Mentation: Alert and oriented x 3 to person, place and time. Speech and Language: Speech and language normal Concentration and Attention: Concentration normal Memory: Memory 3/3 immed, 2/3 short Fund of Knowledge: Fund of knowledge normal Cranial Nerves: II, III, IV, V, , VII, VIII, IX, X, XI, XII tested and were intact including fundoscopic exam (optic discs) and visual field to confrontation. Motor: Strength:Strength 5 out of 5 with normal tone on the right. She has left hemiplegia with increased tone on the left. Alternating Movements: Normal Cogwheel Rigidity: None Tone: Tone is normal Tremor / Involuntary Movements: None Sensory: Pinprick stronger on right hand and right foot v left. Coordination: Normal coordination upper and lower extremities on the right cannot move the left Gait and Station: wheelchair bound DATA [facility] Outside Information Results MR brain wo contrast (Order [id number]) MR brain wo contrast Order: [id number] Impression IMPRESSION: No acute intracranial process. Chronic changes and remote infarcts. Air And Water Tester: ALEXANDRO Transcribe Date/Time: Jan 11 2025 5:04P Dictated by : DELBERT HYATT MD This examination was interpreted and the report reviewed and electronically signed by: DELBERT HYATT MD on Jan 11 2025 5:50PM EST Narrative DATE OF EXAM: Jan 11 2025 4:24PM [facility] [id number] - MRI BRAIN WO IVCON / PROCEDURE REASON: Transient ischemic attack (TIA) EXAMINATION: MRI BRAIN WO IVCON CLINICAL HISTORY: TIA. TECHNIQUE: Routine noncontrast MRI protocol including diffusion images. MQ: MRBWO_2 COMPARISON: CT brain performed 01/09/2025. RESULT: Acute Change: There is no evidence of restricted diffusion to suggest an acute infarct. Hemorrhage: Magnetic susceptibility representing remote blood degradation byproducts at site of remote infarct within the RIGHT MCA territory. Mass Lesion/ Mass Effect: No evidence of an intracranial mass or extra-axial fluid collection. No significant mass effect. Chronic Change: Scattered patchy and confluent areas of increased T2 and FLAIR signal are present in the supratentorial white matter which is nonspecific but likely represents chronic microvascular ischemia. Remote infarct RIGHT MCA territory centered in the RIGHT basal ganglia, insula, temporal lobe, and lateral RIGHT frontal and parietal lobes. Asymmetric diminished volume involving the RIGHT cerebral peduncle with mild T2 and FLAIR hyperintensity reflecting Wallerian degeneration. Parenchyma: There is moderate generalized parenchymal volume loss. The brain parenchyma is otherwise within normal limits of signal intensity and morphology. Ventricles: Ventriculomegaly corresponds to the degree of parenchymal volume loss. Skull Base: Hypothalamic and pituitary region are grossly normal. Craniocervical junction is normal. No significant marrow replacement process. Vasculature: Loss of flow void within the RIGHT cervical and petrous as well as supraclinoid ICA reflecting occlusion or slow flow. Other: The visualized paranasal sinuses and mastoid air cells are clear. The orbits and extracranial soft tissues are unremarkable. Exam End: 01/11/25 16:24 Specimen Collected: 01/11/25 16:24 [facility] Outside Information Results CT head wo IV contrast (Order [id number]) CT head wo IV contrast Order: [id number] Impression IMPRESSION: Chronic changes without evidence for acute intracranial abnormality. Air And Water Tester: ALEXANDRO Transcribe Date/Time: Jan 09 2025 7:59P Dictated by : HAMILTON LERMA MD This examination was interpreted and the report reviewed and electronically signed by: HAMILTON LERMA MD on Jan 09 2025 8:01PM EST Narrative Final Report * * DATE OF EXAM: Jan 09 2025 7:58PM [place] [id number] - CT BRAIN WO IVCON / PROCEDURE REASON: Mental status change, unknown cause EXAMINATION: CT BRAIN WO IVCON CLINICAL HISTORY: Altered level of consciousness TECHNIQUE: Serial axial images without IV contrast were obtained from the vertex to the foramen magnum. MQ: CTBWO_3 CT Radiation dose: Integrated Dose-Length Product (DLP) for this visit = 873 mGy*cm CT Dose Reduction Employed: Iterative recon COMPARISON: 12/14/2024 RESULT: Localizer images: No additional findings. Post-operative change: None. Acute change: No evidence of an acute infarct or other acute parenchymal process. Hemorrhage: No evidence of acute intracranial hemorrhage. ECASS hemorrhagic transformation score: Not Applicable Mass Lesion / Mass Effect: There is no evidence of an intracranial mass or extraaxial fluid collection. No significant mass effect. Chronic change: Patchy foci of low attenuation are present within the supratentorial white matter, a nonspecific finding that most commonly represents moderate small vessel disease. Stable large area of encephalomalacia in the distribution of the right middle cerebral artery consistent with remote infarction. Parenchyma: There is moderate generalized volume loss. The brain parenchyma is otherwise within normal limits for age. Ventricles: Ventricular enlargement concordant with the degree of parenchymal volume loss. Paranasal sinuses and skull base: The visualized paranasal sinuses are grossly clear. The skull base and imaged soft tissues are unremarkable. Exam End: 01/09/25 19:58 Specimen Collected: 01/09/25 19:58 Last Resulted: 01/09/25 20:03 Received From: [facility] Result Received: 01/19/25 14:05 View Encounter Received Information CT head wo IV contrast Order: [id number] Impression IMPRESSION: Stable chronic changes with no acute intracranial process identified. Air And Water Tester: ALEXANDRO Transcribe Date/Time: Dec 14 2024 4:59P Dictated by : FANTA WOODWARD MD This examination was interpreted and the report reviewed and electronically signed by: FANTA WOODWARD MD on Dec 14 2024 5:00PM EST Narrative Final Report * * DATE OF EXAM: Dec 14 2024 4:34PM [facility] 0504 - CT BRAIN WO IVCON / EXAMINATION: CT BRAIN WO IVCON CLINICAL HISTORY: Altered mental status TECHNIQUE: Serial axial images without IV contrast were obtained from the vertex to the foramen magnum. MQ: CTBWO_3 CT Radiation dose: Integrated Dose-Length Product (DLP) for this visit = 805 mGy*cm CT Dose Reduction Employed: Automated exposure control(AEC) and iterative recon COMPARISON: 11/03/2021, and others RESULT: Localizer images: Unremarkable. Post-operative change: None. Acute change: No evidence of an acute infarct or other acute parenchymal process. Hemorrhage: No evidence of acute intracranial hemorrhage. ECASS hemorrhagic transformation score: Not Applicable Mass Lesion / Mass Effect: There is no evidence of an intracranial mass or extraaxial fluid collection. No significant mass effect. Chronic change: Right MCA territory encephalomalacia appears largely stable. Parenchyma: There is moderate generalized volume loss. The brain parenchyma is otherwise within normal limits for age. Ventricles: Ventricular enlargement concordant with the degree of parenchymal volume loss. Paranasal sinuses and skull base: The visualized paranasal sinuses are grossly clear. The skull base and imaged soft tissues are unremarkable. Exam End: 12/14/24 16:34 Specimen Collected: 12/14/24 16:34 [facility] Outside Information EPIL EEG BEDSIDE/PORTABLE - 20 MINUTE ONLY W/VIDEO Narrative Performed by NEUROLOGY [facility] EPIL EEG Bedside/Portable - 20 minute only w/video [[id number]] Patient name: ELBA DIAZ Start of test: 01/10/2025 17:08 End of test: 01/10/2025 17:32 Duration: 0 hr 24 min Requested By: NILTON RODRIGUEZ Staff Physician: Ankit Fairbanks EEG Fellow or [place]: Aura Hilliard History: Elba Diaz is a 74 year old female with history of CVA, depression, hypothyroidism, seizure disorder and endometriosis who presents to the hospital due to reports of AMS. Though the patient is A&Ox4, she seems unable to give details regarding why she is here, and says we need to call her with the results of her testing because she is going home before morning.CT of Brain 01/09/25Chronic changes without evidence for acute intracranial abnormality. Etiology: Epilepsy NOS Conditions: Awake Sleep Classifications: Abnormal III (10-20 Scalp Electrodes, CT-Compatible Electrodes, Anterior Temporal Electrodes, Awake, Sleep) Interictal: Continuous Slow, Generalized, Maximum, Right hemisphere Background Slow, Impression: This EEG is notable for asymmetric background with continuous right hemispheric slowing suggestive of focal dysfunction in this region. There is also evidence for a moderate diffuse encephalopathy. No definite epileptiform discharges or EEG seizures were recorded. Diagnosis: Primary: R41.82 Altered mental status, unspecified altered mental status type Interpreted and electronically signed by Ankit Fairbanks MD, [facility] 3 yr ago [employer] [facility] EPIL EEG Bedside/Portable - 20 minute only w/video [[id number]] Patient name: ELBA DIAZ Date of test: 11/03/2021 Duration: 0 hr 24 min Requested By: PINO PANIAGUA Staff Physician: Adriano Davies EEG Fellow or [place]: Vianney Ramirez History: 71 year old female with PMH of remote RMCA stroke; presents with residual L sided hemiparesis, AMS, & subtherapeutic AED levels. CTH 11/03/21 remarkable for unchanged R sided encephalomalacia via remote insult. EEG BEM to evaluate seizure risk. Conditions: Awake Sleep Diagnosis: Primary: AMS (altered mental status) Classifications: Abnormal III (10-20 Scalp Electrodes, CT-Compatible Electrodes, Anterior Temporal Electrodes, Awake, Sleep) Interictal: Continuous Slow, Generalized, Maximum, right hemisphere Impression: This EEG shows evidence for bilateral cortical dysfunction maximum in the right hemisphere. There is also evidence for a moderate diffuse encephalopathy. No definite epileptiform discharges or EEG seizures were recorded. Interpreted and electronically signed by Adriano Davies M.D. Component 3 yr ago [employer] [facility] [place] EPIL EEG BEM - Continuous bedside w/video includes portable EEG read [[id number]] Patient name: ELBA DIAZ Date of test: 02/14/2021 Requested By: RAMOS BUSTAMANTE Staff Physician: Ankit Rico D.O. EEG Fellow or [place]: Dee Wasserman History: This is a 70 year old right handed female. History of right internal carotid artery occlusion, right hemisphere stroke and left sided weakness. Now with episodes of right sided weakness, slurred speech and periods of confusion. Portable EEG and BEM for seizures vs TIA's Conditions: Awake Diagnosis: Primary: R56.9 Unspecified convulsions BEM Read Period: 02/14/2021 04:54:00 - 02/14/2021 09:15:00 Read duration: 261 minutes Classifications: Abnormal III (10-20 Scal[address] Electrodes, [address]-Compatible Electrodes, Awake) Interictal: Continuous Slow, Generalized and lateralized, right hemisphere Background Slow Sharp Wave, Regional, bilateral occipital Impression: This bedside EEG was recorded from 0454 to 0915 on 02/14/2021 and is suggestive of bilateral cortical dysfunction, maximum in the right hemisphere, with potential epileptogenicity arising from the bilateral occipital regions. There is also evidence of a moderate diffuse encephalopathy. No EEG seizures were recorded. Interpreted and electronically signed by Marco A Viera 3 yr ago [employer] [facility] EPIL EEG BEM - Continuous bedside w/video includes portable EEG read [[id number]] Patient name: ELBA DIAZ Date of test: 02/13/2021 Requested By: RAMOS BUSTAMANTE Staff Physician: Ankit Rico D.O. EEG Fellow or [place]water: Dee Wasserman History: This is a 70 year old right handed female. History of right internal carotid artery occlusion, right hemisphere stroke and left sided weakness. Now with episodes of right sided weakness, slurred speech and periods of confusion. Portable EEG and BEM for seizures vs TIA's Conditions: Awake Diagnosis: Primary: R56.9 Unspecified convulsions BEM Read Period: 02/13/2021 04:58:00 - 02/14/2021 04:54:00 Read duration: 1436 minutes Classifications: Abnormal III (10-20 Scalp Electrodes, CT-Compatible Electrodes, Awake) Interictal: Continuous Slow, Generalized and lateralized, right hemisphere Background Slow Sharp Wave, Regional, bilateral occipital Impression: This bedside EEG was recorded from 0458 on 02/13/2021 to 0454 on 02/14/2021 and is suggestive of bilateral cortical dysfunction in the right hemisphere with potential epileptogenicity arising from the bilateral occipital regions. There is also evidence of a moderate diffuse encephalopathy. No EEG seizures were recorded. Interpreted and electronically signed by Ankit Rico D.O. Date of signin02/14/2021 3 yr ago [employer] [facility] EPIL EEG BEM - Continuous bedside w/video includes portable EEG read [[id number]] Patient name: ELBA DIAZ Date of test: 02/12/2021 Requested By: RAMOS BUSTAMANTE Staff Physician: Ankit Rico D.O. EEG Fellow or Clearwater: Crystal Quiroga History: This is a 70 year old right handed female. History of right internal carotid artery occlusion, right hemisphere stroke and left sided weakness. Now with episodes of right sided weakness, slurred speech and periods of confusion. Portable EEG and BEM for seizures vs TIA's Conditions: Awake Diagnosis: Primary: R56.9 Unspecified convulsions BEM Read Period: 02/12/2021 08:19:00 - 02/13/2021 04:58:00 Read duration: 519 minutes Classifications: Abnormal III (10-20 Scalp Electrodes, CT-Compatible Electrodes, Awake) Interictal: Continuous Slow, Generalized and lateralized, right hemisphere Background Slow Impression: This bedside EEG was recorded from 2018 on 02/12/21 to 457 on 02/13/21 was suggestive of cortical dysfunction in the right hemisphere. There is also evidence of a moderate diffuse encephalopathy. There were no epileptiform discharges or EEG seizures observed. Interpreted and electronically signed by Ankit Rico D.O. Date of signin02/13/2021 3 yr ago [employer] [facility] EPIL EEG Bedside/Portable - 20 minute only w/video [[id number]] Patient name: ELBA DIAZ Date of test: 02/12/2021 Duration: 0 hr 24 min Requested By: GUTIERREZ SHANNON Staff Physician: Ankit Rico EEG Fellow or Clearwater: Tony Paniagua History: This is a 70 year old right handed female. History of right internal carotid artery occlusion, right hemisphere stroke and left sided weakness. Now with episodes of right sided weakness, slurred speech and periods of confusion. Portable EEG and BEM for seizures vs TIA's. Conditions: Awake Sleep Lethargy Diagnosis: Primary: R56.9 Unspecified convulsions Classifications: Abnormal III (10-20 Scalp Electrodes, CT-Compatible Electrodes, Anterior Temporal Electrodes, Awake, Sleep, Lethargy) Interictal: Continuous Slow, Generalized and lateralized, Right Hemisphere Background Slow Impression: This EEG shows evidence of a cortical dysfunction in the right hemisphere. There is also evidence of a moderate diffuse encephalopathy. No epileptiform discharges or EEG seizures were seen during this recording. Seizure monitoring is needed in order to develop or modify treatment. Interpreted and electronically signed by Ankit Rico D.O. Date of signin02/13/2021 3 yr ago [employer] [facility] EPIL EEG BEM - Continuous bedside w/video includes portable EEG read [[id number]] Patient name: ELBA DIAZ Date of test: 02/10/2021 Requested By: OG FORREST Staff Physician: Ankit Rico D.O. 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 She was worked up during this admission for TIA versus seizure and she at that time was found to have the right ICA occlusion and also had abnormal EEG and was started on Depakote as well. Patient has no further complaints. Routine EEG completed prior. Conditions: Awake Sleep Diagnosis: Primary: G40.119 Focal epil simpl intract wo stat BEM Read Period: 02/10/2021 03:45:00 - 02/10/2021 09:20:00 Read duration: 335 minutes Classifications: Abnormal III (10-20 Scalp Electrodes, Anterior Temporal Electrodes, CT-Compatible Electrodes, Awake, Sleep) Interictal: Background Slow Continuous Slow, Generalized and lateralized, right hemisphere Impression: This bedside EEG was recorded from 0345 to 0920 on 02/10/2021 and shows evidence of cortical dysfunction in the right hemisphere. There is also evidence of a moderate diffuse encephalopathy. No definite epileptiform discharges or EEG seizures were recorded. Interpreted and electronically signed by Ankit Rico D.O. Date of signin02/11/2021 3 yr ago [employer] [facility] EPIL EEG BEM - Continuous bedside w/video includes portable EEG read [[id number]] Patient name: ELBA DIAZ Date of test: 02/09/2021 Requested By: OG FORREST Staff Physician: Ankit Rico D.O. 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 She was worked up during this admission for TIA versus seizure and she at that time was found to have the right ICA occlusion and also had abnormal EEG and was started on Depakote as well. Patient has no further complaints. Routine EEG completed prior. Conditions: Awake Sleep Diagnosis: Primary: G40.119 Focal epil simpl intract wo stat BEM Read Period: 02/09/2021 04:39:00 - 02/10/2021 03:45:00 Read duration: 1386 minutes Classifications: Abnormal III (10-20 Scalp Electrodes, Anterior Temporal Electrodes, CT-Compatible Electrodes, Awake, Sleep) Interictal: Background Slow Continuous Slow, Generalized and lateralized, right hemisphere Impression: This bedside EEG was recorded from 0439 on 02/09/2021 to 0345 on 02/10/2021 and shows evidence of cortical dysfunction in the right hemisphere. There is also evidence of a moderate diffuse encephalopathy. No definite epileptiform discharges or EEG seizures were recorded. Interpreted and electronically signed by Ankit Rico D.O. 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 She was worked up during this admission for TIA versus seizure and she at that time was found to have the right ICA occlusion and also had abnormal EEG and was started on Depakote as well. Patient has no further complaints. Conditions: Awake Sleep Diagnosis: Primary: R56.9 Unspecified convulsions Classifications: Abnormal III (10-20 Scalp Electrodes, CT-Compatible Electrodes, Anterior Temporal Electrodes, Awake, Sleep) Interictal: Continuous Slow, Generalized and regional, right temporal Background Slow Impression: This EEG shows evidence of cortical dysfunction maximum in the right temporal region. There is also evidence of a moderate diffuse encephalopathy. No epileptiform discharges or EEG seizures were seen during this recording. Interpreted and electronically signed by Lincoln Sanz M.D., Ph.D. Date of signin02/08/2021 3 yr ago [employer] [facility] EPIL EEG BEM - Continuous bedside w/video includes portable EEG read [[id number]] Patient name: ELBA DIAZ Date of test: 02/08/2021 Requested By: OG FORREST Staff Physician: Ankit Rico D.O. 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 She was worked up during this admission for TIA versus seizure and she at that time was found to have the right ICA occlusion and also had abnormal EEG and was started on Depakote as well. Patient has no further complaints. Routine EEG completed prior. Conditions: Awake Sleep Diagnosis: Primary: G40.119 Focal epil simpl intract wo stat BEM Read Period: 02/08/2021 11:48:00 - 02/09/2021 04:39:00 Read duration: 1011 minutes Classifications: Abnormal III (10-20 Scalp Electrodes, Anterior Temporal Electrodes, CT-Compatible Electrodes, Awake, Sleep) Interictal: Background Slow Continuous Slow, Generalized and lateralized, right hemisphere Impression: This bedside EEG was recorded from 1148 on 02/08/2021 to 0439 on 02/09/2021 and shows evidence of cortical dysfunction in the right hemisphere. There is also evidence of a moderate diffuse encephalopathy. No epileptiform discharges or EEG seizures were recorded. Interpreted and electronically signed by Ankit Rico D.O. Date of signin02/09/2021 Resulting Agency NEUROLOGY [facility] Outside Information CT BRAIN WO IVCON Anatomical Region Laterality Modality Head -- Computed Tomography Impression IMPRESSION: 1. No CT evidence of acute intracranial abnormalities. 2. Large area of encephalomalacia within right middle cerebral artery distribution infarct compatible with previous chronic infarct. 3. Chronic small vessel ischemic white matter disease and diffuse cerebral volume loss. Air And Water Tester: ALEXANDRO Transcribe Date/Time: Feb 07 2021 11:33A Dictated by : VANNA FULTON MD [facility] Outside Information CT BRAIN WO IVCON Anatomical Region Laterality Modality Head -- Computed Tomography Impression IMPRESSION: Arterial blood flow was measured to detect acute large vessel occlusion by computer aided detection software: Not Performed CT BRAIN: 1. Large remote right MCA infarct. No significant change compared to prior CT. 2. No acute intracranial abnormality is seen. CT ANGIOGRAPHY OF THE BRAIN: 1. Distal right ICA and the right MCA are very diminutive in size. This represents a new finding compared to 2012, however otherwise appears chronic. This likely relates to the remote right MCA infarct. Correlation with any outside interval imaging of the vessels would be recommended. No high-grade stenosis or proximal occlusion is seen of the [place]. See above for details. 2. Anatomic variations of the posterior circulation as detailed above. These findings appear chronic. CT ANGIOGRAPHY OF THE NECK: 1. There is a severe stenosis of the proximal right internal carotid artery. It is somewhat difficult to determine if the vessel is focally completely occluded for a few millimeters versus a 99% stenosis. The predominance of the right ICA within the remainder of the neck and within the skull base is diminutive in caliber. This may suggest a chronic process. Comparison with any interval outside imaging of the vessels of the neck is recommended. 2. 40% stenosis of the proximal left internal carotid artery. 3. 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 This is believed to be chronic. See above for details. 4. Mildly enlarged bilateral submandibular lymph nodes. Etiology is uncertain. Follow-up could be considered. Air And Water Tester: ALEXANDRO Transcribe Date/Time: Feb 01 2021 9:53A 4 yr ago [employer]anner Echocardiography Report: Transthoracic Echo [facility] Date of service: 02/24/2020 1:07:58 PM Ordering physician: JOSE Parekh Indication: Stroke Technologist: Debra Light [facility] Interpreting physician: Shun Sheldon DO PATIENT: Name: ELBA DIAZ : 1950 Age: 69 years Gender: F Primary rhythm: sinus. Height: 162.56 cm BSA: 1.78 m Weight: 70.31 kg BMI: 26.6 kg/m Heart rate 70 bpm Blood pressure 134/50 mmHg Agitated saline was administered to rule out PFO. Color Doppler was utilized to interrogate the cardiac valves assessed and spectral Doppler was utilized to determine the flow velocities and pressure gradients reported in this exam. Myocardial strain analysis was performed in this exam to aid in the assessment of cardiac function. MEASUREMENTS: Value Indexed Normal Max aortic dimension 2.9 cm Ao < 3.8 Left atrium diameter 3.1 cm (M-Mode) Left atrial volume 38 ml (4ch A-L) 21 ml/m Don <= 34 LV ID (diastole) 4.6 cm (2D) 2.61 cm/m LV ID (systole) 2.9 cm (2D) 1.62 cm/m IVS, leaflet tips 0.8 cm (2D) Posterior wall thickness 0.9 cm (2D) Left ventricular mass 134 g (2D) 75 g/m Global peak long strain -18.6 % LV stroke volume 42 ml (2D biplane) LVOT stroke volume 44 ml 25 ml/m LV end diastolic volume 63 ml (2D biplane) 35.3 ml/m 29<=EDVi<62 LV end systolic volume 21 ml (2D biplane) 11.8 ml/m Ejection Fraction 66 % (2D biplane) EF > 54 FINDINGS: LEFT VENTRICLE The left ventricle is normal in size. Left ventricular systolic function is normal. Global LV myocardial strain is normal. Normal left ventricular diastolic function. Mitral annular lateral E/e': 9.6. Mitral annular septal E/e': 13.5. Wall Motion: All scored segments are normal. RIGHT VENTRICLE The right ventricle is normal in size. Right ventricular systolic function is normal. RV systolic tissue Doppler velocity is 12.6 cm/s. Tricuspid annular displacement is 2.0 cm. Estimated right ventricular systolic pressure is 33 mmHg consistent with normal pulmonary artery pressures. Estimated right atrial pressure is 3 mmHg based on IVC assessment. LEFT ATRIUM The left atrial cavity is normal in size. Pulmonary Veins: The pulmonary venous pattern showed normal systolic flow. RIGHT ATRIUM The right atrial cavity is normal in size. Inferior Vena Cava: The inferior vena cava appears normal measuring 1.4 cm. The vessel decreases greater than 50 percent with inspiration. MITRAL VALVE There is mild mitral annular calcification observed posterior. There is mild (1+) mitral valve regurgitation. There is no calcification. The pressure half time is 54 msec. The peak mitral E/A ratio is 1.34. The average mitral E/e' ratio is 11.6. The mitral flow deceleration time is 185 msec. TRICUSPID VALVE There is mild (1+) tricuspid valve regurgitation. There is no calcification. AORTIC VALVE There is trace aortic valve regurgitation. Tricuspid aortic valve. There is mild thickening. The peak gradient is 8 mmHg (peak velocity = 142.0 cm/s). The mean gradient is 4 mmHg. The LVOT mean velocity is 53.5 cm/s. The LVOT diameter is 1.8 cm. The aortic VTI is 30.8 cm. The mean velocity in the aortic valve is 95.3 cm/s. The dimensionless valve index is 0.56. AV area is 1.41 cm (0.79 cm /m ) by continuity, VTI. The LVOT stroke volume index is 25 ml/m . PULMONIC VALVE The pulmonic valve was not seen or not interrogated. There is no pulmonic valve regurgitation. The peak gradient is 3 mmHg. AORTA The visualized aorta is normal in size. Measurements - Aortic valve annulus 1.9 cm. Sinus: 2.7 cm. Sinotubular junction 1.6 cm. Mid ascending aorta 2.9 cm. PULMONARY ARTERIES The main pulmonary artery is normal in size. The main pulmonary artery diameter is 1.3 cm (diastolic). INTERATRIAL SEPTUM There is no patent foramen ovale as detected by Doppler and saline contrast with valsalva. INTERVENTRICULAR SEPTUM The interventricular septum is normal. PERICARDIUM There is no pericardial effusion. CONCLUSIONS: - Exam indication: Stroke - The left ventricle is normal in size. Left ventricular systolic function is normal. EF = 66 5% (2D biplane) Normal left ventricular diastolic function. - The right ventricle is normal in size. Right ventricular systolic function is normal. - Mild aortic stenosis. - Mild mitral regurgitation. - Mild tricuspid regurgitation. - Estimated right ventricular systolic pressure is 33 mmHg consistent with normal pulmonary artery pressures. Estimated right atrial pressure is 3 mmHg based on IVC assessment. - There is no patent foramen ovale as detected by Doppler and saline contrast with valsalva. - The patient has not had a prior CC echocardiographic exam for comparison. SSMENT AND PLAN: Diagnosis Plan 1. Focal epilepsy with impairment of consciousness, intractable (HCC) lacosamide (Vimpat) 100 MG tablet Vimpat 100 MG tablet Lacosamide level Lacosamide level 2. Carotid stenosis, symptomatic, with infarction (HCC) Vascular US carotid artery duplex bilateral 3. Hemiparesis affecting left side as late effect of cerebrovascular accident (CVA) (HCC) I am missing the neurology consult from her recent hospital stay at . From what I have heard and read, it does appear that she was having seizures. Apparently, they decided to have her on Vimpat instead of Keppra and Depakote. I am not aware of why she is not on it currently. I am fine with re-starting the Vimpat having not found a reason for her to not be on it now. Will start with 100 mg at night only for 10 days, then 100 mg twice daily after that. Vimpat level in a month. It is medically necessary for her to have a follow up carotid ultrasound given that this high grade stenosis was last checked four years ago per my search through the records. Will follow. I, Stew Oswald MD, furnish ongoing care related to Elba price, serious and complex condition(s) stroke, seizures, and mental status changes. I assume responsibility for the patient's ongoing medical care of this condition. I spent 60 minutes caring for this patient today, reviewing labs and records, seeing the patient, documenting in the record and arranging for studies. documented in this encounter [facility] 01-13-2025 Note HNO ID: [id number] Author: NILTON RODRIGUEZ DO Service: Hospital Medicine Author Type: Physician Type: Progress Notes Filed: 01/13/2025 18:34 Note Text: Documentation Query Please clarify Diagnosis associated with clinical indicators Other unspecified anemia This document will become part of the patient's medical record. [facility] 01-13-2025 Note HNO ID: [id number] Author: NILTON RODRIGUEZ DO Service: Hospital Medicine Author Type: Physician Type: Progress Notes Filed: 01/13/2025 18:33 Note Text: Documentation Query Patient admitted with Change in Mental Status AND Right sided weakness symptoms) Please clarify the diagnosis associated with clinical indicators Other unable to clinically determine This document will become part of the patient's medical record. [facility] 01-13-2025 Note HNO ID: [id number] Author: CELESTE ARTIS LSW Service: Care Management Author Type: [place] Type: Care Mgt Progress Note Filed: 01/13/2025 17:06 Note Text: CARE MANAGEMENT DISCHARGE NOTE SERVICE DATE: January 13, 2025 SERVICE TIME: 5:05 PM Admission Date: 01/09/2025 LOS: 4 days Discharge Arrangement Discharge Arrangement: Shelter Facility Services Arranged Medical Services: Other: See Comment (ECF) Provider Name: Vince Montoya Caregiver Assessment Caregiver is ready, willing and able to meet the patient's needs as recommended by the inter-professional team: Yes Name of Caregiver: EVA Montoya Transportation Arrangements Transportation Arrangements: Ambulance Transportation Agency and Phone #:: [facility] ( [facility] ) [phone] / [phone] Date of Trip: 01/13/25 Time of Trip: 1929 Type of Service: BLS Non-emergency Satellite Technician Location: [facility] Destination: ECF Handoff Communication: Handoff to: Other Caregiver Other Caregiver Name/Phone: ECF. RN to call report Additional Information: Patient to discharge this date to [facility]. Transport scheduled through [facility]. Son and patient notified and agreeable to arrangements. Summary of Care, DC Summary, and AVS sent to facility. Transport packet on chart. RN notified. SIGNATURE: WILSON Hernandez PATIENT NAME: Elba Diaz DATE: January 13, 2025 TIME: 5:05 PM [facility] 01-13-2025 Note HNO ID: [id number] Author: CELESTE ARTIS LSW Service: Care Management Author Type: [place] Type: Care Mgt Progress Note Filed: 01/13/2025 17:02 Note Text: CARE MANAGEMENT PROGRESS NOTE SERVICE DATE: 01/13/2025 SERVICE TIME: 5:00pm LOS: 4 days IMM Follow Up Copy Given: Yes Copy given to:: Patient Method: In Person SIGNATURE: WILSON Hernandez PATIENT NAME: Elba Diaz DATE: January 13, 2025 TIME: 5:02 PM [facility] 01-12-2025 Note HNO ID: [id number] Author: NILTON RODRIGUEZ DO Service: Hospital Medicine Author Type: Physician Type: Progress Notes Filed: 01/12/2025 17:15 Note Text: DEPARTMENT OF HOSPITAL MEDICINE PROGRESS NOTE SERVICE DATE: 01/12/2025 SERVICE TIME: 5:14 PM Hospital Medicine/Primary Attending: Nilton Rodriguez DO NIGHT AND WEEKEND COVERAGE: VANDEMERE COVERAGE: After 7pm, please call cross cover pager #[phone] Subjective Patient seen and examined, denies complaints INTERVAL HPI: 74 y/o female with left sided hemiparesis 2/2 to CVA, Epilepsy, HTN, Hypothyroidism, Cognitive impairment who was admitted on 01/09 from her F due to AMS. Patient had recent switch from Depakote to Keppra on 01/08. And recent changes to her diet due to dysphagia- currently on minced and moist and mildly thickened liquids. Per family she is not moving the right side of her body normally. Neurology consulted that recommended starting vimpat. MEDICATIONS: Reviewed Objective PHYSICAL EXAM: BP 120/84 Pulse 109 Temp (Src) 98.3 (Oral) Resp 18 Ht 5' 2 (1.58m) Wt 170 lb 3.1 oz (77.2kg) SpO2 95% BMI 31.12 kg/(m2). O2 Therapy: Room Air Physical Exam Performed GENERAL: Alert, no distress, cooperative SKIN: Skin color, texture, turgor normal. No rashes or lesions. EYES: PERRLA, peripheral gaytan are intact to confrontation, patient would not do EOM OROPHARYNX: Lips, mucosa, and tongue normal. Teeth and gums normal. Oropharynx normal. LUNGS: poor inspiratory effort, no wheezing or rhonchi CARDIAC: Normal S1 and S2; no rubs, murmurs, or gallops ABDOMEN: Abdomen soft, non-tender, BS normal, No masses or organomegaly EXTREMITIES: Extremities normal, no deformities, edema, clubbing or skin discoloration. Good capillary refill., No ulcers Neuro: smile is symmetrical, 0/5 LUE and LLE muscle strength, 4/5 RUE strength and 3/5 RLE strength Lines, Drains, and Airways Line Duration Peripheral 01/09/[address] [facility] Short Right Hand 20 Gauge 3 days Peripheral 01/09/[address] [facility] Right Antecubital 20 Gauge 2 days Drain Duration External Collection Device 01/10/25 1022 2 days Reviewed lines and needs to be continued: REASONS: Intravenous fluids DATA: Diagnostic tests reviewed for today's visit: Most recent labs and imaging results. Assessment/Plan Principal Problem: AMS (altered mental status) (POA: Yes) Assessment AND Plan: CXR and UA are not indicative on infection. VBG without hypercapnea. No significant electrolyte abnormalities or anemia. 20 minute EEG negative for seizure. Keppra level pending. Neurology consulted recommended starting vimpat #Right sided weakness -obtain MRI brain, monitor on telemetry, obtain ECHO, right sided weakness is improving #Previous CVA with left hemiparesis -continue ASA, plavix, statin #Epilepsy -appreciate neurology recommendations for vimpat load followed by 100 mg BID. Continue lyrica 150 TID (uncertain if done for seizure disorder or neuropathic pain) #Hypokalemia -improved #HypoMg -improved #Hypothyroidism -continue synthroid 175 mcg #Dysphagia -ST consult, purred diet with nectar thick liquids, meds crushed Resolved Problems: * No resolved hospital problems. * Exogenous Class 1 Obesity Medication and Non-Pharmacologic VTE Prophylaxis/Anticoagulants Anticoagulant AND Antiplatelet Medications (From admission, onward) Start Dose Route Frequency Last Action Ordered Stop 01/10/25 0900 clopidogrel 75 mg tab(s) (PLAVIX) 75 mg ORAL DAILY Given, 01/12 0830 01/10/25 0228 -- VTE Prophylaxis: VTE prophylaxis appropriate Disposition: To be determined Plan of care discussed with: Provider, RN, Patient SIGNATURE: Nilton Rodriguez DO PATIENT NAME: Elba Diaz DATE: January 12, 2025 TIME: 5:14 PM etx [id number] [facility] 01-12-2025 Note HNO ID: [id number] Author: JOSE MCRAE RN Service: Care Management Author Type: Registered Nurse Type: Care Mgt Progress Note Filed: 01/12/2025 13:38 Note Text: CARE MANAGEMENT PROGRESS NOTE SERVICE DATE: 01/12/2025 SERVICE TIME: 1337 LOS: 3 days Needs Prior to Discharge: To Be Determined, Discharge Transportation Chart reviewed. Updates sent to [facility]. Patient is LTC at facility, plan to return. Transport folder placed on chart. CM will continue to follow. SIGNATURE: Jose Mcrae RN PATIENT NAME: Elba Diaz DATE: January 12, 2025 TIME: 1:37 PM [facility] 01-11-2025 Note HNO ID: [id number] Author: NILTON RODRIGUEZ DO Service: Hospital Medicine Author Type: Physician Type: Progress Notes Filed: 01/11/2025 15:44 Note Text: DEPARTMENT OF HOSPITAL MEDICINE PROGRESS NOTE SERVICE DATE: 01/11/2025 SERVICE TIME: 3:31 PM Hospital Medicine/Primary Attending: Nilton Rodriguez DO NIGHT AND WEEKEND COVERAGE: VANDEMERE COVERAGE: After 7pm, please call cross cover pager #[phone] Subjective Patient examined with son at bedside today. She is moving her right upper extremity more today INTERVAL HPI: 74 y/o female with left sided hemiparesis 2/2 to CVA, Epilepsy, HTN, Hypothyroidism, Cognitive impairment who was admitted on 01/09 from her ECF due to AMS. Patient had recent switch from Depakote to Keppra on 01/08. And recent changes to her diet due to dysphagia- currently on minced and moist and mildly thickened liquids. Per family she is not moving the right side of her body normally. Neurology consulted that recommended starting vimpat. MEDICATIONS: Reviewed Objective PHYSICAL EXAM: BP 93/62 Pulse 102 Temp (Src) 97.9 (Oral) Resp 16 Ht 5' 2 (1.58m) Wt 170 lb 3.1 oz (77.2kg) SpO2 97% BMI 31.12 kg/(m2). O2 Therapy: Room Air Physical Exam Performed GENERAL: Alert, no distress, cooperative SKIN: Skin color, texture, turgor normal. No rashes or lesions. EYES: PERRLA, peripheral gaytan are intact to confrontation, patient would not do EOM OROPHARYNX: Lips, mucosa, and tongue normal. Teeth and gums normal. Oropharynx normal. LUNGS: poor inspiratory effort, no wheezing or rhonchi CARDIAC: Normal S1 and S2; no rubs, murmurs, or gallops ABDOMEN: Abdomen soft, non-tender, BS normal, No masses or organomegaly EXTREMITIES: Extremities normal, no deformities, edema, clubbing or skin discoloration. Good capillary refill., No ulcers Neuro: smile is symmetrical, 0/5 LUE and LLE muscle strength, 4/5 RUE strength and 3/5 RLE strength Lines, Drains, and Airways Line Duration Peripheral 01/09/[address] [facility] Short Right Hand 20 Gauge 2 days Peripheral 01/09/[address] [facility] Right Antecubital 20 Gauge 1 day Drain Duration External Collection Device 01/10/25 1022 1 day Reviewed lines and needs to be continued: REASONS: Intravenous fluids DATA: Diagnostic tests reviewed for today's visit: Most recent labs and imaging results. Assessment/Plan Principal Problem: AMS (altered mental status) (POA: Yes) Assessment AND Plan: CXR and UA are not indicative on infection. VBG without hypercapnea. No significant electrolyte abnormalities or anemia. 20 minute EEG negative for seizure. Keppra level pending. Neurology consulted recommended starting vimpat #Right sided weakness -obtain MRI brain, monitor on telemetry, obtain ECHO, right sided weakness is improving #Previous CVA with left hemiparesis -continue ASA, plavix, statin #Epilepsy -appreciate neurology recommendations for vimpat load followed by 100 mg BID. Continue lyrica 150 TID (uncertain if done for seizure disorder or neuropathic pain) #Hypokalemia -improved #HypoMg -improved #Hypothyroidism -continue synthroid 175 mcg #Dysphagia -ST consult, continue minced and moist diet with thickened liquids at this time- facility list says she is on mechanical soft and thin liquids Resolved Problems: * No resolved hospital problems. * Exogenous Class 1 Obesity Medication and Non-Pharmacologic VTE Prophylaxis/Anticoagulants Anticoagulant AND Antiplatelet Medications (From admission, onward) Start Dose Route Frequency Last Action Ordered Stop 01/10/25 0900 clopidogrel 75 mg tab(s) (PLAVIX) 75 mg ORAL DAILY Given, 01/11 0914 01/10/25 0228 -- VTE Prophylaxis: VTE prophylaxis appropriate Disposition: To be determined Plan of care discussed with: Provider, RN, Patient SIGNATURE: Nilton Rodriguez DO PATIENT NAME: Elba Diaz DATE: January 11, 2025 TIME: 3:31 PM etx [id number] [facility] 01-11-2025 Note HNO ID: [id number] Author: SAUNDRA BARON RN Service: Care Management Author Type: Registered Nurse Type: Care Mgt Initial Assessment Filed: 01/11/2025 15:29 Note Text: CARE MANAGEMENT: ASSESSMENT AND DISCHARGE PLAN SERVICE DATE: January 11, 2025 SERVICE TIME: 3:27 PM PCP: No primary care provider on file. 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 Attempted to Assist with AD Completion: Yes Action: Other: See Comment Current Living Arrangements and Support Lives with: Other person(s) Type of Residence: Extended Care Facility Does the patient have to climb stairs at home?: No Support: Other: See Comment How do you manage to accomplish the following: Dependent: Ambulation, Bathe/Shower, Dress, Meals/Meal Prep, Going to the bathroom, Medication Management, Transportation to appointments/community Current Services/Equipment Current Post-Acute Service(s): DME Current DME Type: Wheelchair-manual Discharge Planning Patient Goal(s): General wellness [place] Explained: [place] Given: No Reason Not Given: Patient refused Are you interested in bedside delivery of your medications? No Discharge Planning Participant(s): Family Patient/Family Comments: Caregiver Assessment: Caregiver is ready, willing and able to meet the patient's needs as recommended by the inter-professional team: Yes Name of Caregiver: jose Martínez Transport at Discharge: Transportation Arrangements: Ambulance Needs Prior to Discharge: Needs Prior to Discharge: Discharge Transportation Post-Acute Discharge Plan: Functional:Needs assistance with ADLs at baseline, uses wheelchair on occasion but mainly stays in bed Transportation: pt [place] transportation at [place] , ambulance form completed Equipment Prior to Admission: wheelchair Support: pt from [facility] Patient confused, spoke with pt's son Mauricio , pt typically A+Ox3 at baseline, states that pt came from [facility], pt here for AMS, would like for pt to return to [facility] at [place], CM will continue to follow SIGNATURE: Saundra Baron RN PATIENT NAME: Elba Diaz DATE: January 11, 2025 TIME: 3:27 PM [facility] 01-10-2025 Note HNO ID: [id number] Author: NILTON RODRIGUEZ DO Service: Hospital Medicine Author Type: Physician Type: Progress Notes Filed: 01/10/2025 17:50 Note Text: DEPARTMENT OF HOSPITAL MEDICINE PROGRESS NOTE SERVICE DATE: 01/10/2025 SERVICE TIME: 5:37 PM Hospital Medicine/Primary Attending: Nilton Rodriguez DO NIGHT AND WEEKEND COVERAGE: VANDEMERE COVERAGE: After 7pm, please call cross cover pager #[phone] Subjective Patient examined with son and daughter in law at bedside. Son states she is more confused than normal. She is also not moving the right side of her body normally. Her AED were recently changed but he does not know the reason why. INTERVAL HPI: 74 y/o female with left sided hemiparesis 2/2 to CVA, Epilepsy, HTN, Hypothyroidism, Cognitive impairment who was admitted on 01/09 from her F due to AMS. Patient had recent switch from Depakote to Keppra on 01/08. And recent changes to her diet due to dysphagia- currently on minced and moist and mildly thickened liquids. Per family she is not moving the right side of her body normally. MEDICATIONS: Reviewed Objective PHYSICAL EXAM: BP 121/75 Pulse 117 Temp (Src) 97.8 (Oral) Resp 18 Ht 5' 2 (1.58m) Wt 170 lb 3.1 oz (77.2kg) SpO2 94% BMI 31.12 kg/(m2). O2 Therapy: Room Air Physical Exam Performed GENERAL: Alert, no distress, cooperative SKIN: Skin color, texture, turgor normal. No rashes or lesions. EYES: PERRLA, peripheral gaytan are intact to confrontation, patient would not do EOM OROPHARYNX: Lips, mucosa, and tongue normal. Teeth and gums normal. Oropharynx normal. LUNGS: poor inspiratory effort, no wheezing or rhonchi CARDIAC: Normal S1 and S2; no rubs, murmurs, or gallops ABDOMEN: Abdomen soft, non-tender, BS normal, No masses or organomegaly EXTREMITIES: Extremities normal, no deformities, edema, clubbing or skin discoloration. Good capillary refill., No ulcers Neuro: smile is symmetrical, 0/5 LUE and LLE muscle strength, 4/5 RUE strength and 3/5 RLE strength Lines, Drains, and Airways Line Duration Peripheral 01/09/[address] [facility] Short Right Hand 20 Gauge 1 day Peripheral 01/09/[address] [facility] Right Antecubital 20 Gauge <1 day Drain Duration External Collection Device 01/10/25 1022 <1 day Reviewed lines and needs to be continued: REASONS: Intravenous fluids DATA: Diagnostic tests reviewed for today's visit: Most recent labs and imaging results. Assessment/Plan Principal Problem: AMS (altered mental status) (POA: Yes) Assessment AND Plan: CXR and UA are not indicative on infection, will d/c ceftriaxone. VBG without hypercapnea. No significant electrolyte abnormalities or anemia. Will obtain 20 minute EEG. Check keppra and depakote levels. Will consult neurology for further input regarding mental status change in the setting of recent AED change #Right sided weakness -obtain MRI brain, neurology consult, monitor on telemetry, obtain ECHO #Previous CVA with left hemiparesis -continue ASA, plavix, statin #Epilepsy -continue keppra 500 mg BID, check drug level, appreciate neurology input. Continue lyrica 150 TID (uncertain if done for seizure disorder or neuropathic pain) #Hypokalemia -supplement and recheck #HypoMg -supplement and recheck #Hypothyroidism -check TSH, continue synthroid 175 mcg #Dysphagia -ST consult, continue minced and moist diet with thickened liquids at this time- facility list says she is on mechanical soft and thin liquids Resolved Problems: * No resolved hospital problems. * Exogenous Class 1 Obesity Medication and Non-Pharmacologic VTE Prophylaxis/Anticoagulants Anticoagulant AND Antiplatelet Medications (From admission, onward) Start Dose Route Frequency Last Action Ordered Stop 01/10/25 09 clopidogrel 75 mg tab(s) (PLAVIX) 75 mg ORAL DAILY Given, 01/10 95101/10/258 -- VTE Prophylaxis: VTE prophylaxis appropriate Disposition: To be determined Plan of care discussed with: Provider, RN, Patient SIGNATURE: Nilton Rodriguez DO PATIENT NAME: Elba Diaz DATE: January 10, 2025 TIME: 5:37 PM etx [id number] [facility] 01-09-2025 Note SARS-COV-2 (AGENT OF COVID-19) RNA: Not detected INFLUENZA A RNA: Not detected INFLUENZA B RNA: Not detected RESPIRATORY SYNCYTIAL VIRUS (RSV) RNA: Not detected [facility] Comment on above: Performed By: #### 9 [id number] ####[facility]ORY[facility] [id number] [place] [address] [place] 01-01-2025 Telephone encounter Note Pt is added on the wait list [facility] 01-01-2025 Miscellaneous Notes Pt is added on the wait list Name of caller: Sari Contact phone number: [phone] Relationship to Patient: [facility] Provider: New Patient/Dr. Oswald Practice: Neurology Chief Complaint/Reason for Call: Sari called in requesting a sooner new patient appointment for the patient. Sari states that they tested the patient's Depakote levels yesterday and it was low, the result she said was 36. No sooner new patient slots were available ,patient added to wait list. Please be on the look out for sooner appointment, and contact Sari to schedule if possible. Best time of day caller can be reached: any Patient advised that office/PCP has 24-48 business hours to return their call: N/A documented in this encounter [facility] 01-01-2025 Telephone encounter Note Name of caller: Sari Contact phone number: [phone] Relationship to Patient: [facility] Provider: New Patient/Dr. Oswald Practice: Neurology Chief Complaint/Reason for Call: Sari called in requesting a sooner new patient appointment for the patient. Sari states that they tested the patient's Depakote levels yesterday and it was low, the result she said was 36. No sooner new patient slots were available ,patient added to wait list. Please be on the look out for sooner appointment, and contact Sari to schedule if possible. Best time of day caller can be reached: any Patient advised that office/PCP has 24-48 business hours to return their call: N/A [facility] 12-18-2024 Note HNO ID: [id number] Author: MARTIN MCCALL LSW Service: Care Management Author Type: Crozer Type: Care Mgt Progress Note Filed: 12/18/2024 11:19 Note Text: CARE MANAGEMENT DISCHARGE NOTE SERVICE DATE: December 18, 2024 SERVICE TIME: 11:15 AM Admission Date: 12/14/2024 LOS: 3 days Discharge Arrangement Discharge Arrangement: Shelter Facility Services Arranged Return to SNF Provider Name: Dr. Helms Phone: [phone] Caregiver Assessment Transportation Arrangements Transportation Arrangements: Ambulance Transportation Agency and Phone #:: [facility] ( [facility] ) [phone] / [phone] Date of Trip: 12/18/24 Time of Trip: 1430 Type of Service: ALS Non-emergency Was transportation financial coverage discussed with family?: Patient Satellite Technician Location: [facility] Destination: [facility] Handoff Communication: Handoff to: Flat Folding Machine Operator Additional Information: [facility] [phone] Pt is transporting back to [facility] today at 2:30pm via [facility]. Packet on chart. SW called SNF, they are asking for updated clinicals. Sent via careport. RN to call [phone] for N2N REPORT, pt is in [address]. Son was made aware over the phone. No other dc needs at this time. SIGNATURE: WILSON Soliman PATIENT NAME: Elba Diaz DATE: December 18, 2024 TIME: 11:15 AM Ext [id number] [facility] 12-18-2024 Note HNO ID: [id number] Author: MARK DAMON RPh Service: Pharmacy Author Type: Pharmacist Type: Plan of Care Filed: 12/18/2024 11:16 Note Text: DISCHARGE MEDICATION REVIEW BY PHARMACY Patient Name: Elba Diaz Account #: Data Unavailable Admission Date: 12/14/2024 Date of Contact: December 18, 2024 Time of Contact: 11:14 AM Medication list was reviewed by a Pharmacist for drug interactions or drug related problems:Yes Below is a summary of pharmacist recommendations discussed with LIP: No recommendations at this time from discharge medication list. Mark Damon RPh Pager: [phone] 12/18/2024 11:14 AM Medication List CONTINUE taking these medications acetaminophen 500 mg tablet Commonly known as: TYLENOL alendronate 70 mg tablet Commonly known as: FOSAMAX ASPIR-81 81 mg EC tablet Generic drug: aspirin, enteric coated atorvastatin 80 mg tablet Commonly known as: LIPITOR TAKE 1 TABLET BY MOUTH EVERY DAY AZO D-MANNOSE 500 mg capsule Generic drug: d-mannose calcium carbonate 600 mg-cholecalciferol 400 units 600 mg-10 mcg (400 unit) Tab clopidogrel 75 mg tablet Commonly known as: PLAVIX Take 1 tablet by mouth once daily. diclofenac 1 % topical gel Commonly known as: VOLTAREN divalproex DR 500 mg EC tablet Commonly known as: DEPAKOTE Take 1 tablet by mouth twice daily. DULoxetine 40 mg Cpdr Commonly known as: CYMBALTA ferrous sulfate 325 mg (65 mg iron) tablet Take 1 tablet by mouth every other day. L-LYSINE ORAL levothyroxine 175 mcg Cap MAGNESIUM OXIDE ORAL MYRBETRIQ 25 mg Tb24 Generic drug: mirabegron potassium chloride 10 mEq tablet Commonly known as: K-TAB pregabalin 150 mg capsule Commonly known as: LYRICA rOPINIRole 0.5 mg tablet Commonly known as: REQUIP VIVELLE-DOT 0.05 mg/24 hr patch Generic drug: estradiol [facility] 12-18-2024 Note HNO ID: [id number] Author: DANILO HELMS MD Service: Hospital Medicine Author Type: Physician Type: Progress Notes Filed: 12/18/2024 10:29 Note Text: Documentation Query Please specify a diagnosis associated with the Clinical Indicators for this patient Obesity This document will become part of the patient's medical record. [facility] 12-17-2024 Note HNO ID: [id number] Author: DANILO HELMS MD Service: Hospital Medicine Author Type: Physician Type: Progress Notes Filed: 12/17/2024 18:51 Note Text: Documentation Query Please clarify the Diagnosis associated with clinical indicators Delirium Only This document will become part of the patient's medical record. [facility] 12-17-2024 Note HNO ID: [id number] Author: DANILO HELMS MD Service: Hospital Medicine Author Type: Physician Type: Progress Notes Filed: 12/17/2024 18:53 Note Text: DEPARTMENT OF HOSPITAL MEDICINE PROGRESS NOTE SERVICE DATE: 12/17/2024 SERVICE TIME: 3:32 PM Hospital Medicine/Primary Attending: Danilo Helms MD NIGHT AND WEEKEND COVERAGE: After 7pm please page [phone] CHIEF COMPLAINT: Follow-up for change in mental status SUBJECTIVE: Patient seen and examined. Discussed with nursing staff. OBJECTIVE: PHYSICAL EXAM: BP 136/78 Pulse 88 Temp (Src) 98.2 (Oral) Resp 18 Ht 5' 2 (1.58m) Wt 176 lb 8 oz (80.1kg) SpO2 97% BMI 32.27 kg/(m2). O2 Therapy: Room Air General - AANDOx2, NAD, elderly woman, slightly weak appearing. Somewhat lethargic CV - RRR S1 S2, No M/R/G RESP - CTA B/L No wheezes, ronchi, rales ABD - soft, NT, ND +BS EXT - no gross joint deformity, no clubbing, cyanosis, edema NEURO - CN II-XII grossly intact, no focal deficits MEDICATIONS: Current Facility-Administered Medications Medication Dose Route Frequency NaCl 0.9% iv flush bag 20 mL INTRAVENOUS PRN NaCl 0.9% iv flush bag 20 mL INTRAVENOUS PRN cefTRIAXone iv piggyback 2 g in dextrose (iso-osmotic) 50 mL (ROCEPHIN) 2 g INTRAVENOUS q 24 H aspirin 81 mg chewable tab(s) 81 mg ORAL DAILY atorvastatin 80 mg tab(s) (LIPITOR) 80 mg ORAL AT BEDTIME divalproex DR 500 mg tab(s) (DEPAKOTE) 500 mg ORAL BID clopidogrel 75 mg tab(s) (PLAVIX) 75 mg ORAL DAILY DULoxetine 40 mg cap(s) (CYMBALTA) 40 mg ORAL DAILY pregabalin 150 mg cap(s) (LYRICA) 150 mg ORAL DAILY rOPINIRole 1 mg tab(s) (REQUIP) 1 mg ORAL AT BEDTIME magnesium oxide 400 mg tab(s) (MAG-OX) 400 mg ORAL DAILY levothyroxine (SYNTHROID) tab(s) 175 mcg 175 mcg ORAL DAILY polyethylene glycol 3350 17 g packet 17 g ORAL DAILY senna-docusate 8.6-50 mg 2 tablet (SENNA-S) 2 tablet ORAL BID acetaminophen 650 mg tab(s) (TYLENOL) 650 mg ORAL q 4 H PRN aluminum-magnesium hydroxide-simethicone 200-200-20 mg/5 mL 30 mL 30 mL ORAL q 6 H PRN benzocaine-menthol 1 Lozenge (CEPACOL) 1 Lozenge MUCOUS MEMBRANE (TOPICAL MOUTH AND THROAT) q 2 H PRN guaiFENesin 600 mg ER tab(s) (MUCINEX) 600 mg ORAL q 12 H PRN lip protectant 1 application stick (BLISTEX) 1 application TOPICAL PRN melatonin 3 mg tab(s) 3 mg ORAL AT BEDTIME PRN ondansetron (PF) 4 mg injection (ZOFRAN) 4 mg INTRAVENOUS q 6 H PRN polyvinyl alcohol-povidone 1.4-0.6 % 1 Drop (REFRESH) 1 Drop BOTH EYES PRN saliva substitute combo no.9 15 mL (BIOTENE mouthwash) 15 mL MUCOUS MEMBRANE (TOPICAL MOUTH AND THROAT) TID PRN sodium chloride 0.65 % 2 Caldwell 2 Caldwell EACH NOSTRIL PRN prochlorperazine 10 mg injection (COMPAZINE) 10 mg INTRAVENOUS q 6 H PRN miconazole 2 % 1 application topical powder 1 application TOPICAL BID zinc oxide ointment 20% TOPICAL BID DATA: Diagnostic tests reviewed for today's visit: CBC: No results for input(s): WBC, RBC, HB, HCT, PLT, MCV, MCH, MPV, RDW in the last 24 hours. Coags: No results for input(s): PT, INR, APTT in the last 24 hours. BMP: No results for input(s): NA, K, CHLOR, CO2, BUN, CREAT, GLUC in the last 24 hours. CMP: No results for input(s): NA, K, CHLOR, CO2, BUN, CREAT, GLUC, TPROT, CA, MG, ALBUMIN, TBILI, ALKPHOS, ALT, AST, ANION in the last 24 hours. Cardiac Enzymes: No results for input(s): CK, MB, CKMB, TROPT in the last 24 hours. Liver Function, Amylase, Lipase: No results for input(s): TPROT, ALB, ALT, AST, ALKPHOS, TBILI, AMYLASE, LIPASE, LACTATE in the last 24 hours. MG/PHOS: No results for input(s): MG, P in the last 24 hours. Renal Panel: No results for input(s): ALBUMIN, CREAT, BUN, GLUC, CA, P, CHLOR, K, CO2, NA in the last 24 hours. Heme: No results for input(s): RETICP, ABSRETIC, LD, EMMETT, FE, TIBC,TRANSFERSAT in the last 24 hours. No results found for: UALBCR Assessment/Plan 1. Acute delirium. Most likely secondary to dehydration and possible urinary tract infection. Appears to be improving. Will continue supportive care and treatment of underlying medical conditions including rehydration. 2. Suspected urinary tract infection. Urinalysis not suggestive and so cultures not obtained. Will discontinue antibiotics. 3. Mild anemia and thrombocytopenia. Most likely secondary to hemodilution yes 4. Generalized weakness and functional decline. Physical and Occupational Therapy recommending return back to senior care facility/ECF. 5. Hypokalemia. Repleting with oral potassium 40 mg 3 times a day x 3 doses. VTE Prophylaxis: As per primary team Disposition: Extended Care Facility Plan of care discussed with: Provider, RN, Patient SIGNATURE: Danilo Helms MD PATIENT NAME: Elba Diaz DATE: December 17, 2024 TIME: 3:32 PM PAGER/CONTACT #: Mili miller [facility] 12-17-2024 Note HNO ID: [id number] Author: MARK DAMON RPh Service: Pharmacy Author Type: Pharmacist Type: Plan of Care Filed: 12/17/2024 15:36 Note Text: PHARMACY MEDICATION REVIEW Patient Name: Elba Diaz : 1950 The following medications were updated within the POWER STATION OPERATOR medication list: Medications ADDED to POWER STATION OPERATOR medication list N/A Medications CHANGED on POWER STATION OPERATOR medication list Iron 1 tablet daily to one tablet every other day Calcium 500 mg to 600 mg daily Medications REMOVED from POWER STATION OPERATOR medication list Protonix Keppra Gabapentin Docusate Cholestyramine Amitriptyline Citalopram Additional comments: Updated meds [facility] The below information represents the best possible medication history: Yes Medication history completed by: Pharmacist: Mark Damon RPh Source of history: senior living/Other [facility] - [facility] Medication nonadherence identified: Unable to assess Reconciliation completed: Yes Completed by: DAMIAN All POWER STATION OPERATOR medications addressed by DAMIAN Patient interested in Bedside Delivery Services or using OP Pharmacy at discharge? Unable to assess Preferred outpatient pharmacy: [facility] [place] [place] [address] - [address] [place] [address] Allergies: Codeine Other: See Comments Comment:nausea Prior to Admission Medications Prescriptions Last Dose Informant Patient Reported? Taking? DULoxetine (CYMBALTA) 40 mg cpDR Yes Yes Sig: Take 40 mg by mouth once daily. L-LYSINE ORAL Yes Yes Sig: Take 1,000 mg by mouth once daily. MAGNESIUM OXIDE ORAL Yes Yes Sig: Take 250 mg by mouth once daily. acetaminophen (TYLENOL) 500 mg tablet Yes Yes Sig: Take 1,300 mg by mouth three times a day. alendronate (FOSAMAX) 70 mg tablet OTHER Yes Yes Sig: Take 70 mg by mouth one time a week. In AM with cup of water on empty stomach. Nothing else by mouth and stay upright for 30 min. *Mondays between [id number]* aspirin, enteric coated (ASPIR-81) 81 mg EC tablet Yes Yes Sig: Take 81 mg by mouth once daily. atorvastatin (LIPITOR) 80 mg tablet No Yes Sig: TAKE 1 TABLET BY MOUTH EVERY DAY calcium carbonate 600 mg-cholecalciferol 400 units 600 mg-10 mcg (400 unit) tab Yes Yes Sig: Take 1 tablet by mouth two times a day. clopidogrel (PLAVIX) 75 mg tablet No Yes Sig: Take 1 tablet by mouth once daily. d-mannose (AZO D-MANNOSE) 500 mg capsule Yes Yes Sig: Take 500 mg by mouth once daily. diclofenac (VOLTAREN) 1 % topical gel Yes Yes Sig: Apply 4 g to affected area three times a day. Left knee divalproex DR (DEPAKOTE) 500 mg EC tablet No Yes Sig: Take 1 tablet by mouth twice daily. estradiol (VIVELLE-DOT) 0.05 mg/24 hr Yes Yes Sig: Apply 1 Patch as directed one time a week. Q Sunday ferrous sulfate 325 mg (65 mg iron) tablet No Yes Sig: Take 1 tablet by mouth daily with breakfast. Patient taking differently: Take 325 mg by mouth every other day. levothyroxine 175 mcg cap Yes Yes Sig: Take 175 mcg by mouth daily before breakfast. mirabegron (MYRBETRIQ) 25 mg Tb24 OTHER Yes Yes Sig: Take 25 mg by mouth once daily. potassium chloride (K-TAB) 10 mEq tablet Yes Yes Sig: Take 20 mEq by mouth once daily. pregabalin (LYRICA) 150 mg capsule Yes Yes Sig: Take 150 mg by mouth three times a day. rOPINIRole (REQUIP) 0.5 mg tablet Yes Yes Sig: Take 1 mg by mouth daily at bedtime. Facility-Administered Medications: None Mark Damon RPh 12/17/2024 [facility] 12-16-2024 Note HNO ID: [id number] Author: DANILO HELMS MD Service: Hospital Medicine Author Type: Physician Type: Progress Notes Filed: 12/16/2024 15:36 Note Text: DEPARTMENT OF HOSPITAL MEDICINE PROGRESS NOTE SERVICE DATE: 12/16/2024 SERVICE TIME: 3:32 PM Hospital Medicine/Primary Attending: Danilo Helms MD NIGHT AND WEEKEND COVERAGE: After 7pm please page [phone] CHIEF COMPLAINT: Follow-up for change in mental status SUBJECTIVE: Patient seen and examined. Discussed with nursing staff. OBJECTIVE: PHYSICAL EXAM: BP 136/80 Pulse 92 Temp (Src) 98 (Oral) Resp 18 Ht 5' 2 (1.58m) Wt 176 lb 8 oz (80.1kg) SpO2 97% BMI 32.27 kg/(m2). O2 Therapy: Room Air General - AANDOx2, NAD, elderly woman, slightly weak appearing. Somewhat lethargic CV - RRR S1 S2, No M/R/G RESP - CTA B/L No wheezes, ronchi, rales ABD - soft, NT, ND +BS EXT - no gross joint deformity, no clubbing, cyanosis, edema NEURO - CN II-XII grossly intact, no focal deficits MEDICATIONS: Current Facility-Administered Medications Medication Dose Route Frequency NaCl 0.9% iv flush bag 20 mL INTRAVENOUS PRN NaCl 0.9% iv flush bag 20 mL INTRAVENOUS PRN cefTRIAXone iv piggyback 2 g in dextrose (iso-osmotic) 50 mL (ROCEPHIN) 2 g INTRAVENOUS q 24 H D5-0.9 % NaCl 1,000 mL with potassium chloride 20 mEq INTRAVENOUS CONTINUOUS aspirin 81 mg chewable tab(s) 81 mg ORAL DAILY atorvastatin 80 mg tab(s) (LIPITOR) 80 mg ORAL AT BEDTIME divalproex DR 500 mg tab(s) (DEPAKOTE) 500 mg ORAL BID clopidogrel 75 mg tab(s) (PLAVIX) 75 mg ORAL DAILY DULoxetine 40 mg cap(s) (CYMBALTA) 40 mg ORAL DAILY pregabalin 150 mg cap(s) (LYRICA) 150 mg ORAL DAILY rOPINIRole 1 mg tab(s) (REQUIP) 1 mg ORAL AT BEDTIME magnesium oxide 400 mg tab(s) (MAG-OX) 400 mg ORAL DAILY potassium chloride ER 40 mEq tab(s) (KLOR-CON) 40 mEq ORAL TID levothyroxine (SYNTHROID) tab(s) 175 mcg 175 mcg ORAL DAILY polyethylene glycol 3350 17 g packet 17 g ORAL DAILY senna-docusate 8.6-50 mg 2 tablet (SENNA-S) 2 tablet ORAL BID acetaminophen 650 mg tab(s) (TYLENOL) 650 mg ORAL q 4 H PRN aluminum-magnesium hydroxide-simethicone 200-200-20 mg/5 mL 30 mL 30 mL ORAL q 6 H PRN benzocaine-menthol 1 Lozenge (CEPACOL) 1 Lozenge MUCOUS MEMBRANE (TOPICAL MOUTH AND THROAT) q 2 H PRN guaiFENesin 600 mg ER tab(s) (MUCINEX) 600 mg ORAL q 12 H PRN lip protectant 1 application stick (BLISTEX) 1 application TOPICAL PRN melatonin 3 mg tab(s) 3 mg ORAL AT BEDTIME PRN ondansetron (PF) 4 mg injection (ZOFRAN) 4 mg INTRAVENOUS q 6 H PRN polyvinyl alcohol-povidone 1.4-0.6 % 1 Drop (REFRESH) 1 Drop BOTH EYES PRN saliva substitute combo no.9 15 mL (BIOTENE mouthwash) 15 mL MUCOUS MEMBRANE (TOPICAL MOUTH AND THROAT) TID PRN sodium chloride 0.65 % 2 Caldwell 2 Caldwell EACH NOSTRIL PRN prochlorperazine 10 mg injection (COMPAZINE) 10 mg INTRAVENOUS q 6 H PRN DATA: Diagnostic tests reviewed for today's visit: CBC: Recent Labs 12/16/24209 WBC 6.31 RBC 3.55* HB 12.0 HCT 35.7* PLT 116* MCV 100.6* MCH 33.8 MPV 8.8* Coags: No results for input(s): PT, INR, APTT in the last 24 hours. BMP: Recent Labs 12/16/24209 NA 138 K 3.5* CHLOR 105 CO2 22 BUN 5* CREAT 0.36* GLUC 103* CMP: Recent Labs 12/16/24209 NA 138 K 3.5* CHLOR 105 CO2 22 BUN 5* CREAT 0.36* GLUC 103* TPROT 5.9* CA 8.5 TBILI 0.2 ALKPHOS 78 ALT 18 AST 31 ANION 11 Cardiac Enzymes: No results for input(s): CK, MB, CKMB, TROPT in the last 24 hours. Liver Function, Amylase, Lipase: Recent Labs 12/16/24209 TPROT 5.9* ALB 3.1* ALT 18 AST 31 ALKPHOS 78 TBILI 0.2 MG/PHOS: No results for input(s): MG, P in the last 24 hours. Renal Panel: Recent Labs 12/16/24 0210 CREAT 0.36* BUN 5* GLUC 103* CA 8.5 CHLOR 105 K 3.5* CO2 22 NA 138 Heme: No results for input(s): RETICP, ABSRETIC, LD, EMMETT, FE, TIBC,TRANSFERSAT in the last 24 hours. No results found for: UALBCR Assessment/Plan 1. Acute delirium. Most likely secondary to dehydration and possible urinary tract infection. Appears to be improving. Will continue supportive care and treatment of underlying medical conditions including rehydration. 2. Suspected urinary tract infection. Urinalysis not suggestive consult cultures not obtained. 3. Mild anemia and thrombocytopenia. Most likely secondary to hemodilution yes 4. Generalized weakness and functional decline. Physical and Occupational Therapy recommending return back to senior care facility/ECF. 5. Hypokalemia. Will replete with oral potassium 40 mg 3 times a day x 3 doses. VTE Prophylaxis: As per primary team Disposition: Extended Care Facility Plan of care discussed with: Dwaine, RN, Patient SIGNATURE: Danilo Helms MD PATIENT NAME: Elba Diaz DATE: December 16, 2024 TIME: 3:32 PM PAGER/CONTACT #: Mili miller [facility] 12-16-2024 Note HNO ID: [id number] Author: LOIS MENA RN Service: Care Management Author Type: Registered Nurse Type: Care Mgt Initial Assessment Filed: 12/16/2024 14:46 Note Text: CARE MANAGEMENT: ASSESSMENT AND DISCHARGE PLAN SERVICE DATE: December 16, 2024 SERVICE TIME: 11:16 AM PCP: No primary care provider on file. 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 Attempted to Assist with AD Completion: No Unable to Assist Due To:: Delirium Current Living Arrangements and Support Lives with: Alone Type of Residence: Extended Care Facility Does the patient have to climb stairs at home?: No Care Facility Name: [facility] Support: Children How do you manage to accomplish the following: Dependent: Ambulation, Bathe/Shower, Dress, Meals/Meal Prep, Going to the bathroom, Medication Management, Transportation to appointments/community Current Services/Equipment Current Post-Acute Service(s): DME Current DME Type: [facility] [employer] Discharge Planning Patient Goal(s): General wellness [place] Explained: [place] Given: Yes Are you interested in bedside delivery of your medications? No Discharge Planning Participant(s): Children Patient/Family Comments: Caregiver Assessment: Caregiver is ready, willing and able to meet the patient's needs as recommended by the inter-professional team: Yes Name of Caregiver: [facility] Transport at Discharge: Transportation Arrangements: Ambulance Satellite Technician Location: [facility] Needs Prior to Discharge: Needs Prior to Discharge: To Be Determined Post-Acute Discharge Plan: Spoke to jose Martínez. Patient is LTC resident at [facility], with plans to return. [facility] tasked to send return referral via Pint Please/[employer]. Patient is non ambulatory and uses a [facility]eli for transfers. Therapy recs ECF. Anticipate return to ECF once medically ready. Will need cot transport at [place]. to continue to follow. SIGNATURE: Lois Mena RN PATIENT NAME: Elba Diaz DATE: December 16, 2024 TIME: 11:16 AM [facility] 12-15-2024 Note HNO ID: [id number] Author: DANILO HELMS MD Service: Hospital Medicine Author Type: Physician Type: Progress Notes Filed: 12/15/2024 17:34 Note Text: DEPARTMENT OF HOSPITAL MEDICINE PROGRESS NOTE SERVICE DATE: 12/15/2024 SERVICE TIME: 5:31 PM Hospital Medicine/Primary Attending: Danilo Helms MD NIGHT AND WEEKEND COVERAGE: After 7pm please page [phone] CHIEF COMPLAINT: Follow-up for urinary tract infection and change in mental status SUBJECTIVE: Patient seen and examined. Discussed with patient's jose Martínez over the telephone. Updated regarding plan of care. All questions answered and concerns addressed. Patient is requesting to be discharged. Feels that she is better. Reassured and encouraged that she should stay at least 1 more day in the hospital. OBJECTIVE: PHYSICAL EXAM: BP 125/76 Pulse 98 Temp (Src) 98 (Oral) Resp 17 Wt 156 lb (70.8kg) SpO2 97% O2 Therapy: Room Air General - AANDOx3, NAD, elderly man, slightly weak appearing. Slightly ill-appearing. CV - RRR S1 S2, No M/R/G RESP - CTA B/L No wheezes, ronchi, rales ABD - soft, NT, ND +BS EXT - no gross joint deformity, no clubbing, cyanosis, edema NEURO - CN II-XII grossly intact, no focal deficits MEDICATIONS: Current Facility-Administered Medications Medication Dose Route Frequency NaCl 0.9% iv flush bag 20 mL INTRAVENOUS PRN NaCl 0.9% iv flush bag 20 mL INTRAVENOUS PRN cefTRIAXone iv piggyback 2 g in dextrose (iso-osmotic) 50 mL (ROCEPHIN) 2 g INTRAVENOUS q 24 H dextrose 5% in NaCl 0.9% with KCl 20 mEq/L iv infusion 75 mL/hr INTRAVENOUS CONTINUOUS DATA: Diagnostic tests reviewed for today's visit: CBC: Recent Labs 12/15/24 0542 WBC 7.76 RBC 3.24* HB 10.9* HCT 33.8* PLT 109* MCV 104.3* MCH 33.6 MPV 8.9* Coags: No results for input(s): PT, INR, APTT in the last 24 hours. BMP: Recent Labs 12/15/24 0542 NA 140 K 3.6* CHLOR 107 CO2 20* BUN 11 CREAT 0.37* GLUC 73* CMP: Recent Labs 12/15/24 0542 NA 140 K 3.6* CHLOR 107 CO2 20* BUN 11 CREAT 0.37* GLUC 73* CA 8.3* ANION 13 Cardiac Enzymes: No results for input(s): CK, MB, CKMB, TROPT in the last 24 hours. Liver Function, Amylase, Lipase: No results for input(s): TPROT, ALB, ALT, AST, ALKPHOS, TBILI, AMYLASE, LIPASE, LACTATE in the last 24 hours. MG/PHOS: No results for input(s): MG, P in the last 24 hours. Renal Panel: Recent Labs 12/15/24 0542 CREAT 0.37* BUN 11 GLUC 73* CA 8.3* CHLOR 107 K 3.6* CO2 20* NA 140 Heme: No results for input(s): RETICP, ABSRETIC, LD, EMMETT, FE, TIBC,TRANSFERSAT in the last 24 hours. No results found for: UALBCR Assessment/Plan 1. Acute delirium. Most likely secondary to dehydration and a urinary tract infection. Appears to be improving. Will continue supportive care and treatment of underlying medical conditions. 2. Urinary tract infection. Follow-up on urine cultures. Will increase Rocephin to 2 g daily. 3. Mild anemia and thrombocytopenia. Most likely secondary to hemodilution yes 4. Generalized weakness and functional decline. Physical and Occupational Therapy to see and evaluate in anticipation of return back to senior care facility/ECF. VTE Prophylaxis: As per primary team Disposition: Extended Care Facility Plan of care discussed with: Provider, RN, Patient SIGNATURE: Danilo Helms MD PATIENT NAME: Elba Diaz DATE: December 15, 2024 TIME: 5:31 PM PAGER/CONTACT #: mili miller [facility] 12-14-2024 Note SARS-COV-2 (AGENT OF COVID-19) RNA: Not detected INFLUENZA A RNA: Not detected INFLUENZA B RNA: Not detected RESPIRATORY SYNCYTIAL VIRUS (RSV) RNA: Not detected [facility] Comment on above: Performed By: #### 9 [id number] ####[facility] [id number] [address] [facility] 09-06-2022 Note Patient Outreach (IN TMMN) KRZYSZTOFELBA Roy ([id number]) 1950 F CHT Date Time Provider Department 09/06/22 MARCUS TIERNEY During your visit today, we recorded the following information about you: Allergies As of Date: 09/06/2022 Noted Allergy Reaction CODEINE 03/26/2017 14 - Other: See Comments Comments: nausea Date Reviewed: 11/06/2021 Reviewed by: Carrie Amaya RN - Fully Assessed Visit Diagnosis:Encounter for screening mammogram for breast cancer [Z12.31] Order(s):[facility] SCREENING [[id number]] Order #: [id number] FUTURE Prescriptions as of 09/11/2022 - divalproex DR (DEPAKOTE) 500 mg EC tablet Take 1 tablet by mouth twice daily. - gabapentin (NEURONTIN) 100 mg capsule Take 2 capsules by mouth twice daily for 60 days. - zinc oxide 20 % ointment Apply to affected area twice daily. - citalopram hydrobromide (CELEXA) 10 mg tablet Take 10 mg by mouth once daily. - mirabegron (MYRBETRIQ) 25 mg Tb24 Take 25 mg by mouth once daily. - alendronate (FOSAMAX) 35 mg tablet Take 70 mg by mouth one time a week. In AM with cup of water on empty stomach. Nothing else by mouth and stay upright for 30 min. - clopidogrel (PLAVIX) 75 mg tablet Take 1 tablet by mouth once daily. - pantoprazole DR (PROTONIX) 40 mg tablet Take 1 tablet by mouth once daily. - ferrous sulfate 325 mg (65 mg iron) tablet Take 1 tablet by mouth daily with breakfast. - docusate sodium (COLACE) 100 mg capsule Take 1 capsule by mouth once daily. Take while taking protonix - levETIRAcetam (KEPPRA) 250 mg tablet Take 250 mg by mouth twice daily. - diclofenac (VOLTAREN) 1 % topical gel Apply 4 g to affected area four times daily. Left knee - amitriptyline (ELAVIL) 50 mg tablet Take 50 mg by mouth daily at bedtime. - cholestyramine-sucrose (QUESTRAN) 4 gram powder Take by mouth twice daily with meals. - rOPINIRole (REQUIP) 1 mg tablet Take 1 mg by mouth daily at bedtime. - acetaminophen (TYLENOL) 500 mg tablet Take 1,000 mg by mouth every 6 hours as needed for pain. - loperamide (IMODIUM A-D) 2 mg cap(s) Take 2 mg by mouth four times daily as needed for diarrhea. - MAGNESIUM OXIDE ORAL Take 250 mg by mouth once daily. - L-LYSINE ORAL Take 1,000 mg by mouth once daily. - atorvastatin (LIPITOR) 80 mg tablet TAKE 1 TABLET BY MOUTH EVERY DAY - Mth-Me Blue-Sod Butt-UwAwm-Fch (URIBEL) 118-10-40.8-36 mg Take 1 capsule by mouth once daily. - levothyroxine (SYNTHROID) 125 mcg tablet TAKE 1 TABLET BY MOUTH EVERY MORNING BEFORE BREAKFAST - aspirin, enteric coated (ASPIR-81) 81 mg EC tablet Take 81 mg by mouth once daily. - calcium carbonate-vitamin D3 (CALCIUM 500+D) 500 mg(1,250mg) -400 unit chewable tablet Take 1 tablet by mouth twice daily. - estradiol (VIVELLE-DOT) 0.05 mg/24 hr Apply 1 Patch as directed one time a week. - rizatriptan (MAXALT) 5 mg tablet Take 5 mg by mouth as needed. May repeat in 2 hours if needed; do not exceed 30mg in 24hours Meds Comments as of 02/12/2021: Family bring in list of medications to update med list 02/12/2021 Problem List As Of Date 09/06/2022 Noted Resolved Endometriosis [N80.9] Colon polyp [K63.5] Hypothyroid [E03.9] Fatigue [R53.83] Mild depression (HCC) [F32.A] Polyneuropathy [G62.9] 07/22/2012 Aneurysm (HCC) [I72.9] Multiple lung nodules on CT [R91.8] Pure hypercholesterolemia [E78.00] 03/26/2017 Impaired functional mobility, balance, gait, an*01/26/2020 Left arm weakness [R29.898] 02/11/2020 Impaired mobility and ADLs [Z74.09, Z78.9] 02/11/2020 Cerebrovascular accident (CVA) (HCC) [I63.9] 03/05/2020 Spasticity [R25.2] 03/05/2020 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] 03/05/2020 Hypertension, essential [I10] 03/05/2020 DAVEY (acute kidney injury) (HCC) [N17.9] 05/14/2020 02/08/2021 Hypotension [I95.9] 05/14/2020 Acute renal insufficiency [N28.9] 05/16/2020 02/08/2021 Seizure (HCC) [R56.9] 05/16/2020 Headache [R51.9] 02/01/2021 Arm paresthesia, right [R20.2] 02/07/2021 Hemiparesis of left nondominant side as late ef*02/08/2021 Epilepsy (HCC) [G40.909] 10/21/2021 Iron deficiency anemia, unspecified [D50.9] 10/21/2021 Fever [R50.9] 10/21/2021 UTI (urinary tract infection) [N39.0] 10/21/2021 Altered mental status [R41.82] 10/21/2021 11/07/2021 Iron deficiency anemia [D50.9] 10/22/2021 GERD (gastroesophageal reflux disease) [K21.9] 11/03/2021 AMS (altered mental status) [R41.82] 11/03/2021 11/07/2021 Encounter Status:Closed by Pint PleaseBONILLAUSERk on 09/11/22 [facility] 06-21-2022 Miscellaneous Notes Called and left patient a VM to see about moving her appt w Dr. Dennis on the to the . Marie Vences June 21, 2022 10:40 AM documented in this encounter [facility] 06-19-2022 Miscellaneous Notes Called and left patient a VM about switching appointment from Jul 18 to the . Marie Vences June 19, 2022 10:36 AM documented in this encounter [facility] 03-22-2022 Note HNO ID: [id number] Author: Population Health Navigator Liz Varela Service: ? Author Type: ? Type: Progress Notes Filed: 03/22/2022 12:30 PM Note Text: POPULATION HEALTH NAVIGATION OUTREACH Action/FYI Dear Dr. Tierney, Our Population Health Navigation team is completing an outreach regarding open HCC gaps. This patient currently has the following open HCC gap(s) listed: I72.9 - Aneurysm (HCC) - [id number] Last Billed 04/20/2020 An attempt has been made to reach the patient to schedule another office visit this year to address the above issues. If these are no longer issues, please resolve them from the problem list. Thank you, Population Health Navigator Liz Avery ~~~~~~~~~~~~~~~~~~~~~~~~ HCC Gaps 1st attempt- Voicemail not set up for patient daughter Tammie to return my call to schedule for HCC. 2nd attempt- SidecarHART message sent. Patient is on HCC list for below gaps and needs appt to address : I72.9 - Aneurysm (HCC) - [id number] Last Billed 04/20/2020 Annual Wellness/PCP visit/ BP CONTROLLED - last visit 10/27/2020 Pt identified by name and : NO Outreach Outcome/Action Unable to reach patient: Phone number not valid / voicemail full MyChart message sent Did you use a PCP flex slot to schedule this appointment? N/A Reason for Outreach HCC or suspected condition Payer: Payor: [facility] MEDICARE / Plan: [employer] AARP MEDICARE HMO / Product Type: HMO / Care Gap Reviewed:: Annual Wellness visit Reminder: Reminder note to check Health Maintenance for items below Health Maintenance items due: COVID-19 VACCINE(1) Never done BP CONTROLLED (<130/80) Never done SHINGRIX VACCINE(3 of 3) due on 09/28/2020 DTAP,TDAP,TD(2 - Td or Tdap) due on 02/16/2021 ADVANCE DIRECTIVE DISCUSSION Never done ANNUAL PCP TEAM CHRONIC DISEASE VISIT due on 10/27/2021 Message Sent to Practice: Yes Navigation Signature: Population Health Navigator Liz Varela March 22, 2022 12:15 PM [facility] 03-22-2022 Note Patient Outreach (BRENNAN SHEN) ELBA DIAZ ([id number]) 1950 F T Date Time Provider Department 03/22/22 LIZ VARELA During your visit today, we recorded the following information about you: Population Health Navigator Liz Varela 03/22/2022 12:30 PM Signed POPULATION HEALTH NAVIGATION OUTREACH Action/FYI Dear Dr. Tierney, Our Population Health Navigation team is completing an outreach regarding open HCC gaps. This patient currently has the following open HCC gap(s) listed: I72.9 - Aneurysm (HCC) - [id number] Last Billed 04/20/2020 An attempt has been made to reach the patient to schedule another office visit this year to address the above issues. If these are no longer issues, please resolve them from the problem list. Thank you, Population Health Navigator Liz Varela ~~~~~~~~~~~~~~~~~~~~~~~~ HCC Gaps 1st attempt- Voicemail not set up for patient daughter Tammie to return my call to schedule for HCC. 2nd attempt- MYCHART message sent. Patient is on HCC list for below gaps and needs appt to address : I72.9 - Aneurysm (HCC) - [id number] Last Billed 04/20/2020 Annual Wellness/PCP visit/ BP CONTROLLED - last visit 10/27/2020 Pt identified by name and : NO Outreach Outcome/Action Unable to reach patient: Phone number not valid / voicemail full MyChart message sent Did you use a PCP flex slot to schedule this appointment? N/A Reason for Outreach HCC or suspected condition Payer: Payor: [facility] MEDICARE / Plan: [employer] AARP MEDICARE HMO / Product Type: HMO / Care Gap Reviewed:: Annual Wellness visit Reminder: Reminder note to check Health Maintenance for items below Health Maintenance items due: COVID-19 VACCINE(1) Never done BP CONTROLLED (<130/80) Never done SHINGRIX VACCINE(3 of 3) due on 09/28/2020 DTAP,TDAP,TD(2 - Td or Tdap) due on 02/16/2021 ADVANCE DIRECTIVE DISCUSSION Never done ANNUAL PCP TEAM CHRONIC DISEASE VISIT due on 10/27/2021 Message Sent to Practice: Yes Navigation Signature: Population Health Navigator Liz Varela March 22, 2022 12:15 PM Allergies As of Date: 03/22/2022 Noted Allergy Reaction CODEINE 03/26/2017 14 - Other: See Comments Comments: nausea Date Reviewed: 11/06/2021 Reviewed by: Carrie Amaya RN - Fully Assessed Reason for Visit: Population Health Navigation Outreach [3910] Cmt: [facility] Prescriptions as of 03/22/2022 - divalproex DR (DEPAKOTE) 500 mg EC tablet Take 1 tablet by mouth twice daily. - gabapentin (NEURONTIN) 100 mg capsule Take 2 capsules by mouth twice daily for 60 days. - predniSONE (DELTASONE) 1 mg tablet Take 9 tablets by mouth once daily for 30 days, THEN 8 tablets once daily for 30 days, THEN 7 tablets once daily for 30 days, THEN 6 tablets once daily for 30 days, THEN 5 tablets once daily for 30 days, THEN 4 tablets once daily for 30 days, THEN 3 tablets once daily for 30 days, THEN 2 tablets once daily for 30 days, THEN 1 tablet once daily. - zinc oxide 20 % ointment Apply to affected area twice daily. - citalopram hydrobromide (CELEXA) 10 mg tablet Take 10 mg by mouth once daily. - mirabegron (MYRBETRIQ) 25 mg Tb24 Take 25 mg by mouth once daily. - alendronate (FOSAMAX) 35 mg tablet Take 70 mg by mouth one time a week. In AM with cup of water on empty stomach. Nothing else by mouth and stay upright for 30 min. - clopidogrel (PLAVIX) 75 mg tablet Take 1 tablet by mouth once daily. - pantoprazole DR (PROTONIX) 40 mg tablet Take 1 tablet by mouth once daily. - ferrous sulfate 325 mg (65 mg iron) tablet Take 1 tablet by mouth daily with breakfast. - docusate sodium (COLACE) 100 mg capsule Take 1 capsule by mouth once daily. Take while taking protonix - levETIRAcetam (KEPPRA) 250 mg tablet Take 250 mg by mouth twice daily. - diclofenac (VOLTAREN) 1 % topical gel Apply 4 g to affected area four times daily. Left knee - amitriptyline (ELAVIL) 50 mg tablet Take 50 mg by mouth daily at bedtime. - cholestyramine-sucrose (QUESTRAN) 4 gram powder Take by mouth twice daily with meals. - rOPINIRole (REQUIP) 1 mg tablet Take 1 mg by mouth daily at bedtime. - acetaminophen (TYLENOL) 500 mg tablet Take 1,000 mg by mouth every 6 hours as needed for pain. - loperamide (IMODIUM A-D) 2 mg cap(s) Take 2 mg by mouth four times daily as needed for diarrhea. - MAGNESIUM OXIDE ORAL Take 250 mg by mouth once daily. - L-LYSINE ORAL Take 1,000 mg by mouth once daily. - atorvastatin (LIPITOR) 80 mg tablet TAKE 1 TABLET BY MOUTH EVERY DAY - Mth-Me Blue-Sod Islv-HyNwb-Xpa (URIBEL) 118-10-40.8-36 mg Take 1 capsule by mouth once daily. - levothyroxine (SYNTHROID) 125 mcg tablet TAKE 1 TABLET BY MOUTH EVERY MORNING BEFORE BREAKFAST - aspirin, enteric coated (ASPIR-81) 81 mg EC tablet Take 81 mg by mouth once daily. - calcium carbonate-vitamin D3 (CALCIUM 500+D) 500 mg(1,250mg) -400 unit chew (more content not included)... [facility] 11-03-2021 History of Past i llness Narrative Problem Noted Date Resolved Date AMS (altered mental status) 11/03/202110/22 Altered mental status 10/21/2021 11/07/2021 Acute renal insufficiency 05/16/20202020 DAVEY (acute kidney injury) 05/14/20202020 documented as of this encounter (statuses as of 06/19/2022) [facility] History of Past illness Narrative* Problem Noted Date Resolved Date AMS (altered mental status) 11/03/202110/22 Altered mental status 10/21/2021 11/07/2021 Acute renal insufficiency 05/16/20202020 DAVEY (acute kidney injury) 05/14/20202020 documented as of this encounter (statuses as of 06/21/2022) [facility] History of Past illness Narrative* Problem Noted Date Resolved Date AMS (altered mental status) 11/03/202110/22 Altered mental status 10/21/2021 11/07/2021 Acute renal insufficiency 05/16/20202020 DAVEY (acute kidney injury) 05/14/20202020 documented as of this encounter (statuses as of 09/11/2022) [facility] noteNo assessment information availableWKettering [facility] Work Phone: Evaluation note* Diagnosis Encounter for screening mammogram for breast cancer documented in this encounter [facility] note* Diagnosis Focal epilepsy with impairment of consciousness, intractable (HCC)- Primary Localization-related (focal) (partial) epilepsy and epileptic syndromes with simple partial seizures, with intractable epilepsy Carotid stenosis, symptomatic, with infarction (HCC) Hemiparesis affecting left side as late effect of cerebrovascular accident (CVA) (HCC) documented in this encounter [facility] note* Diagnosis Focal epilepsy with impairment of consciousness, intractable (HCC)- Primary Localization-related (focal) (partial) epilepsy and epileptic syndromes with simple partial seizures, with intractable epilepsy Carotid stenosis, symptomatic, with infarction (HCC) Hemiparesis affecting left side as late effect of cerebrovascular accident (CVA) (HCC) documented in this encounter [facility] for referral (narrative)* Diagnostic Procedure Only (Routine) - Pending Review Specialty Diagnoses / Procedures Referred By Emily t Referred To Contact [facility] Diagnoses Encounter for screening mammogram for breast cancer Procedures JANET SCREENING SCREENING MAMMOGRAPHY BI 2-VIEW BREAST INC CAD Marcus Tierney MD [address] [place] [address] [facility] [address] [place] [phone] Referral ID Status Reason Start Date Expiration Date Visits Requested Visits Authorized [id number] Pending Review Auto-Generat ed Referral 2 10/06/2023 1 1 [facility] for referral (narrative)No reason for referral information availableWKettering Memorial Hospital Work Phone: Summary Purpose Family History No Family History Records FoundNo Family History Records FoundNo Family History Records FoundNo Family History Records FoundNo Family History Records FoundNo Family History Records FoundNo Family History Records FoundNo Family History Records FoundNo Family History Records Found No Information Available Advance Directives Latest Code Status on File Code Status Date Activated Date Inactivated Comments DNR-CCA 10/28/2021 6:14 AM 11/01/2021 4:13 AM DNR Order Discussed With: Patient and Decision S urrogate Maker DNR-CCA 02/07/2021 5:02 PM 02/10/2021 8:01 PM DNR Order Discussed With: Patient DNR-CCA 02/01/2021 1:34 PM 02/03/2021 7:05 PM Full Code 05/14/2020 10:09 PM 05/16/2020 2:43 PM Full Code Order Discussed With: Patient Latest Code Status on File Code Status Date Activated Date Inactivated Comments DNR-CCA 10/28/2021 6:14 AM 11/01/2021 4:13 AM DNR-CCA 02/07/2021 5:02 PM 02/10/2021 8:01 PM DNR-CCA 02/01/2021 1:34 PM 02/03/2021 7:05 PM Full Code 05/14/2020 10:09 PM 05/16/2020 2:43 PM Hospital Course Note HNO ID: [id number] Author: Rk Shannon Service: Hospital Medicine Author Type: Physician Type: Discharge Summary Filed: 05/19/2020 9:48 AM Note Text: DISCHARGE SUMMARY PATIENT NAME: Elba Diaz Code Status: Not on file Highest Readmission Risk Score: 19 The 30 day readmissions risk score is derived from an internally validated risk model which evaluates patient level characteristics, utilization history, medication orders and lab results up until the day of discharge. Patients with a score of 40 or above are considered highest risk for readmission. Specific patient level drivers will be listed at the bottom of the summary. Admission Information Admission Information ADMIT DATE: 05/16/2020 DISCHARGE DATE: 05/19/2020 MY DOCTORS AND MEDICAL TEAM: [facility] Main [facility] Doctor: Gutierrez Shannon Primary Care Provider: No primary care provider on file. My Medical Team Members: Treatment Team: Attending Provider: Gutierrez Shannon Consulting: Zeyad Frias MD Nurse Practitioner: Stew Rivera (more content not included)... Chief Complaint and Reason for Visit Chief Complaint SENIOR LIVING LABWORK SENIOR LIVING LABWORK SENIOR LIVING LABWORK SENIOR LIVING BLOOD WORK SENIOR LIVING LABWORK SENIOR LIVING LAB WORK Chief Complaint SENIOR LIVING LABWORK SENIOR LIVING LABWORK SENIOR LIVING BLOOD WORK SENIOR LIVING LABWORK SENIOR LIVING LAB WORK Chief Complaint SENIOR LIVING BLOOD W ORK SENIOR LIVING LABWORK SENIOR LIVING LAB WORK SENIOR LIVING LABWORK Chief Complaint SENIOR LIVING LABWORK Chief Complaint SENIOR LIVING LABWORK SENIOR LIVING LAB WORK Chief Complaint SENIOR LIVING LAB WOR K SENIOR LIVING LAB WORK Chief Complaint SENIOR LIVING LAB WOR K SENIOR LIVING LAB WORK SENIOR LIVING LAB WORK Chief Complaint SENIOR LIVING LABWORK LABWORK Chief Complaint SENIOR LIVING LABWORK LABWORK LABWORK Chief Complaint LABWORK LABWORK SENIOR LIVING LABWORK Chief Complaint LABWORK LABWORK SENIOR LIVING LABWORK LABWORK Chief Complaint Admit Date LABWORK October 27, 2024 5: 00am SENIOR LIVING LAB WORK November 27, 2024 5:00am LAB WORK December 22, 2024 2:30 pm LAB WORK December 24, 2024 5:00 am LAB WORK December 30, 2024 2:0 0am LABWORK December 31, 2024 5:0 0am LABWORK January 14, 2025 5:0 0am Chief Complaint Admit Date SENIOR LIVING LAB WORK November 27, 2024 5:00am LAB WORK December 22, 2024 2:30 pm LAB WORK December 24, 2024 5:00 am LAB WORK December 30, 2024 2:0 0am LABWORK December 31, 2024 5:0 0am LABWORK January 14, 2025 5:0 0am LABWORK March 06, 2025 5:00a m Chief Complaint Admit Date LABWORK March 06, 2025 5:00a m SENIOR LIVING LAB WORK April 01, 2025 4: 00pm Additional Source Comments INFORMATION SOURCE (unrecogn ized section and content) DATE CREATED AUTHOR 05/19/2020 [facility] DATE CREATED AUTHOR AUTHOR'S ORGANIZ ATION 05/19/2020 [facility] DATE CREATED AUTHOR AUTHOR'S ORGANIZ ATION 08/17/2020 [facility] DATE CREATED AUTHOR AUTHOR'S ORGANIZ ATION 11/12/2020 [facility] ([place]) DATE CREATED AUTHOR AUTHOR'S ORGANIZ ATION 07/29/2021 [facility] DATE CREATED AUTHOR AUTHOR'S ORGANIZ ATION 09/11/2022 [facility] DATE CREATED AUTHOR AUTHOR'S ORGANIZ ATION 03/20/2025 [facility] DATE CREATED AUTHOR AUTHOR'S ORGANIZ ATION 03/26/2025 [facility] DATE CREATED AUTHOR AUTHOR'S ORGANIZ ATION 05/24/2025 [facility] Goals (unrecognized section and content) Goals may be documented in a n alternate sectionGoals may be documented in an alternate sectionGoals may be documented in an alternate sectionGoals may be documented in an alternate sectionGoals may be documented in an alternate sectionGoals may be documented in an alternate sectionGoals may be documented in an alternate sectionGoals may be documented in an alternate sectionGoals may be documented in an alternate sectionGoals may be documented in an alternate sectionGoals may be documented in an alternate sectionGoals may be documented in an alternate sectionGoals may be documented in an alternate sectionGoals may be documented in an alternate sectionGoals may be documented in an alternate sectionGoals may be documented in an alternate sectionGoals may be documented in an alternate sectionGoals may be documented in an alternate section No Information Available Source Comments (unrecognize d section and content) In the event this informatio n is protected by the Federal Confidentiality of Alcohol and Drug Abuse Patient Records regulations: The Federal rules restrict any use of the information to criminally investigate or prosecute any alcohol or drug abuse patient.[facility] Healthcare[facility] the event this information is protected by the Federal Confidentiality of Alcohol and Drug Abuse Patient Records regulations: The Federal rules restrict any use of the information to criminally investigate or prosecute any alcohol or drug abuse patient.[facility] HealthcareIn the event this information is protected by the Federal Confidentiality of Alcohol and Drug Abuse Patient Records regulations: The Federal rules restrict any use of the information to criminally investigate or prosecute any alcohol or drug abuse patient.[facility] Reason for Visit (unrecogniz ed section and content) left knee post Genicular Rad iofrequency Ablation Left knee on 05/07/2025, Postop - 1st visit Reason Comments Appointment Reason Onset Date Comments Appointment Request 01/01/2025 Reason Comments New Patient Memory Loss Specialty Diagnoses / Procedures Referred By Emily t Referred To Contact Diagnoses Memory deficit, cerebral infarct,aphasia, Procedures [place] OFFICE/OUTPATIENT NEW MODERATE MDM 45 MINUTES [facility] [address] [facility] [address] [place] [address] Phone: tel: fax: Stew Oswald MD [address] [facility] [address] [place] [address] Phone: tel: fax: Referral ID Status Reason Start Date Expiration Date V isits Requested Visits Authorized [id number] Pending Review 09/09/2024 09/09/2025 1 1 Reason Comments Follow-up Seizures Care Teams (unrecognized sec tion and content) Head Sawyer Relationship Specialty Start Date End Date Marcus Tierney MD [address] [place] [address] PCP - General Family Practice 02/11/20 Aliya Clarke, RN Registered Nurse 06/07/22 Cornelius Jiménez DO [address] [place] [address] Family Practice 06/08/22 German Altman DO [address] [place] [address] Primary Staff Physician Family Practice 06/08/22 HarveymarinaNamita, DO [address] [place] [address] Primary Staff Physician Family Practice 06/08/22 Marcus Tierney MD [address] [place] [address] Primary Staff Physician Family Practice 06/08/22 Yoav Tierney MD [address] [place] [address] Primary Staff Physician Family Practice 06/08/22 Delbert Ariza MD [address] [place] [address] Primary Staff Physician Family Practice 06/08/22 Shankar Marino, DO [address] [place] [address] Primary Staff Physician Family Practice 06/08/[address] [place] [address] Family Practice 06/08/22 Head Sawyer Relationship Specialty Start Date End Date Marcus Tierney MD [address] [place] [address] PCP - General Family Medicine 02/11/20 Aliya Clarke, RN Registered Nurse 06/07/22 Cornelius Jiménez, DO [address] [place] [address] Family Medicine 06/08/22 German Altman, DO [address] [place] [address] Primary Staff Physician Family Medicine 06/08/22 Winsome Namita DO [address] [place] [address] Primary Staff Physician Family Medicine 06/08/22 Marcus Tierney MD [address] [place] [address] Primary Staff Physician Family Medicine 06/08/22 Yoav Tierney MD [address] [place] [address] Primary Staff Physician Family Medicine 06/08/22 Delbert Ariza MD [address] [facility] [address] Primary Staff Physician Family Medicine 06/08/22 Shankar Marino, DO [address] [place] [address] Primary Staff Physician Family Medicine 06/08/22 Pepe Moreno [address] [place] [address] Family Medicine 06/08/22 Aliya Clarke, MONAE Registered Nurse Primary Care 08/18/22 Team Status: Inactive Member Role Status Dates Robb ROB Attending Provider Active Team Status: Active Member Role Status Dates Robb ROB Attending Provider Active Team Status: Active Member Role Status Dates Robb ROB Attending Provider Active Star t: October 27, 2024 Team Status: Active Member Role Status Dates Robb ROB Attending Provider Active Star t: November 27, 2024 Team Status: Active Member Role Status Dates Robb ROB Attending Provider Active Star t: December 22, 2024 Team Status: Active Member Role Status Dates [facility] Attending Provider Active Start: December 24, 2024 Team Status: Active Member Role Status Dates Robb Mcfaddener DARRON Attending Provider Active Star t: December 30, 2024 Team Status: Active Member Role Status Dates Robb ROB Attending Provider Active Star t: December 31, 2024 Team Status: Inactive Member Role Status Dates Robb ROB Attending Provider Active Star t: January 14, 2025 End: January 14, 2025 Head Sawyer Relationship Specialty Start Date End Date Robb Barnes MD [address] [place] [address] [address] [place], [place] [id number] PCP - [facility] Family Medicine 02/06/25 Head Sawyer Relationship Specialty Start Date End Date Robb Barnes MD [address] [place] [address] [address] [place], [place] [id number] PCP - [facility] Medicine 02/06/25 Team Status: Inactive Member Role Status Dates Robb ROB Attending Provider Active Star t: March 06, 2025 End: March 06, 2025 Head Sawyer Relationship Specialty Start Date End Date Robb Barnes MD [address] [place] [address] [address] [place], [place] [id number] PCP - General Family Medicine 02/06/25 Team Status: Inactive Member Role/Relationship Status Dates Robb ROB Attending Provider Active Star t: March 06, 2025 End: March 06, 2025 Team Status: Active Member Role/Relationship Status Dates Robb Mcfaddener DARRON Attending Provider Active Star t: April 01, 2025 FOR RECORDS PERTAINING TO PATIENTS WHO ARE OR HAVE BEEN ENROLLED IN A CHEMICAL DEPENDENCY/SUBSTANCEABUSE PROGRAM, SOME INFORMATION MAY BE OMITTED. This clinical summary was aggregated from multiple sources. Caution should be exercised in using it in the provision of clinical care. This summary normalizes information from multiple sources, and as a consequence, information in this document may materially change the coding, format and clinical context of patient data. In addition, data may be omitted in some cases. CLINICAL DECISIONS SHOULD BE BASED ON THE PRIMARY CLINICAL RECORDS. [facility]. provides no warranty or guarantee of the accuracy or completeness of information in this document.
[2025-06-17 08:07] LABS: Hematocrit 33.6 % (37-47); Hemoglobin 11.1 g/dL (12.0-15.0); Immature Granulocytes Count 0.010 X10^3/uL (0.0-0.0); Mean Corp Hgb Conc 33.0 g/dL (32-36); Mean Corpuscular Volume 96.6 fL (81-99); Mean Platelet Vol. 9.2 fl (6.2-12.0); NRBC Flagged by Analyzer 0 % (0-5); Platelet Count 204 K/mm3 (150-450); RBC Distribution Width CV 14.1 % (11.6-14.6); RBC Distribution Width SD 50.1 fl (35.1-43.9); Red Blood Count 3.48 M/mm3 (4.2-5.4); White Blood Count 5.7 K/mm3 (4.4-11.0)
[2025-06-17 08:14] LABS: Mucous, Urine 0 SEEN /hpf (<or=2+); Red Blood Cells-Urine 0 SEEN /hpf (0-5)
[2025-06-17 08:35] LABS: AST(SGOT) 22 U/L (<=31); Alanine Aminotransfer ALT/SGPT 16 U/L (<=34); Albumin, Serum 3.3 g/dL (3.4-4.8); Alkaline Phosphatase 104 U/L (35-104); Anion Gap 10 (5-15); BUN 15 mg/dL (4-19); BUN/Creat Ratio 25.9 RATIO (10-20); Bilirubin, Direct 0.12 mg/dL (0.00-0.30); Calcium,Total 9.5 mg/dL (7.6-11.0); Carbon Dioxide 23.2 mmol/L (21.0-32.0); Chloride 107 mmol/L (98-108); Globulin 2.8 g/dL (2.2-4.2); Glucose 105 mg/dL (70-99); Potassium 4.2 mmol/L (3.3-5.1)
[2025-06-17 08:57] LABS: Color, Urine Yellow (Yellow); Glucose, Dipstick Normal (Normal); Ketone-Dipstick Negative (Negative); Leukocyte Esterase-Dipstick 25 /ul (Negative); Nitrite-Dipstick Positive (Negative); Occult Blood-Urine Negative /ul (Negative); Protein-Dipstick 15 mg/dl (Negative); Specific Gravity, Urine 1.020 (1.002-1.030); Urine Bilirubin Dipstick Negative (Negative)
[2025-06-17 09:04] LABS: Squamous Epithelial Cells - UA 0-5 SEEN /hpf (5-10)
== END ==
LOC: OLS.ACW300 05:00
PROVIDERS: Visit Provider Family Medicine
DX: G93.41 Metabolic encephalopathy (principal); R41.82 Altered mental status, unspecified; R13.12 Dysphagia, oropharyngeal phase; D64.9 Anemia, unspecified; R53.1 Weakness; G40.509 Epileptic seizures related to external causes, not intractable, without status epilepticus
CPT/HCPCS: 36415; 80048; 80076; 81001; 85025; 87077; 87086; 87088; 87186

== ENCOUNTER → 2025-06-23 05:00 | Outpatient (REF) | payer MEDICARE, MEDICAID, SELFPAY ==
--- OUTSIDE RECORDS SUMMARY | 2025-06-23 05:13 | XMS RPT_ITS | CCD ---
Author Organization [facility] ion Partnership [facility] Care Team Providers Care Airport Control Operator Name Role Phone Marcus Tierney MD Primary Care Provider Tricia LICONA, Aliya Unavailable Unavailable Cornelius Jiménez DO Unavailable German Altman DO Unavailable Namita Schumacher DO Unavailable Marcus Tierney MD Unavailable Yoav Tierney MD Unavailable Delbert Ariza MD Unavailable [phone] Shankar Marino DO Unavailable [phone] [place], [place] Unavailable Marcus Tierney MD Primary Care Provider Tricia LICONA, Aliya Unavailable Unavailable Cornelius Jiménez DO Unavailable [phone] German Altman DO Unavailable Namita Schumacher DO Unavailable Marcus Tierney MD Unavailable Yoav Tierney MD Unavailable [phone] Delbert Ariza MD Unavailable [phone] Shankar Marino DO Unavailable [place], [place] Unavailable Clarke RN, Aliya Unavailable Unavailable Unavailable Primary Care Provider UnavailRobb Ballard Attending Provider [facility] Attending Provider Robb Donohue MD Primary Care Provider EV II, ELIA Admitting Unavailable NILTON RODRIGUEZ Attending Unavailable ITRAT, AHMED Consulting Unavailable STEW OSWALD Attending Unavailable STEW OSWALD Referring Unavailable ROBB BARNES Primary Care Unavailable STEW OSWALD Attending Unavailable ROBB BARNES Primary Care Unavailable MARGRET, STEW Attending Unavailable ROBB BARNES Primary Care Unavailable Robb Coon Attending Provider UnavailRobb Ballard Attending Provider Unavailjuan e Raymundo CLINICAL REHABILITATION AIDE-WAREHOUSE ADMINISTRATIVE ASSISTANT, Paty Unavailable [phone] Robb Barnes MD Unavailable Robb Coon Attending Unavailable Stephany ROB, Robb Attending Unavailable Stephany ROB, Robb Attending Unavailable Stephany ROB, Robb Attending Unavailable Stephany ROB, Robb Attending Unavailable Stephany ROB, Robb Attending Unavailable [facility] Attending Unav ailable Stephany ROB, Robb Attending Unavailable Stephany ROB, Robb Attending Unavailable Stephany ROB, Robb Attending Unavailable Stephany ROB, Robb Attending Unavailable Stephany ROB, Robb Attending Unavailable Allergies Allergy Classification Reported Allergen(s) Allergy Type Date of Onset Reaction(s) Facility (10 sources) Codeine; Translations: [CODEINE] Drug Allergy 7 Other: See Comments [facility] (6 sources) Levetiracetam; Translations: [LEVETIRACETAM] Propensity to adverse reactions 5 Other [facility] (1 source) Codeine Drug Allergy 3 [facility] (1 source) Penicillin V Drug Allergy 5 [facility] Medications Current Medications [...] as needed for pain active Joe Caballero [facility] [place] take 2 tablets by mo uth every [...] mouth once a week active Joe Caballero [facility] [place] take 2 tablets by mo uth every week in the morning alendronate (FOSAMAX) [...] a day as directed active Joe Caballero [facility] [place] calcium carbonate 625 mg / cholecalciferol 125 [...] skin twice a day active Yee Marie [facility] Diclofenac Sodiu m (Voltaren) 1 % gel [...] mouth daily. 01/14/2025 Active 84 hr estradiol 0.80890 mg/hr transdermal system (9 sources) Estrogen apply 1 dose transdermal route once daily Hilda 0.05 mg/24 hr transdermal patch Apply 1 patch to skin once a day active Joe Caballero [facility] estradiol (Vivel le-DOT) 0.05 MG/24HR Place 1 [...] mouth twice a day active [facility] Comment on above: Take 1 tablet by [...] day as needed for pain active Joe Cablalero [facility] [place] lysine 500 mg oral tablet (6 sources) take 1 tablet by mouth once daily lysine 500 mg tablet Take 1 tablet by mouth once a day active Joe Caballero [facility] [place] take 2 tablets by mouth once namita ly LYSINE PO Take 500 mg by mouth daily. Take 2 tabs daily Active magnesium oxide 250 mg oral tablet (9 sources) take 1 tablet by mouth once daily magnesium 250 mg (as magnesium oxide) tablet Take 1 tablet by mouth once a day active Joe Caballero [facility] [place] Comment on above: Take 250 mg by mouth once daily. 24 hr mirabegron 25 mg extended release oral tablet (9 sources) beta3-Adrenergic Agonist take 1 tablet by mouth once daily Myrbetriq 25 mg tablet,extended release Take 1 tablet by mouth once a day active Joe Caballero [facility] [place] Comment on above: Take 25 mg by mouth once daily. nystatin 100 unt/mg topical powder (1 source) Polyene Antifungal Nystop 100,00 0 unit/gram powder as directed active Jessy Daugherty [facility] potassium chloride 10 [...] Comment on above: Take 9 tablets by [facility] once daily for 30 days, [...] mouth twice a day active Yee Marie CURAM DEVELOPER [facility] [place] RA CALCIUM 600/VITAMIN D-3 (CALCIUM CARB-CHOLECALCIFEROL) 600-10 MG-MCG TABS (1 source) take 1 tablet by mouth twice daily Calcium 600 + D(3) 600 mg-10 mcg (400 unit) tablet Take 1 tablet by mouth twice a day active Joe [facility] [place] rOPINIRole 0.5 mg oral table t (10 sources) Nonergot Dopamine Agonist take 1 tablet by mouth once daily ropinirole 0.5 mg tablet Take 1 tablet by mouth once a day active Joe [facility] [place] take 1 tablet by mouth once elsa y ropinirole 1 mg tablet Take 1 tablet by mouth once a day active Joe [facility] [place] take 2 tablets by mo uth once [...] on above: TAKE 1 TABLET BY GARTH EVERY DAY cholestyramine resin 4000 mg powder [...] Comment on above: Take 1 capsule by [facility] once daily. Take while taking protonix gabapentin 100 mg oral capsule (2 sources) Anti-epileptic Agent Start: 11-07-2021 take 2 capsules by mouth twice daily gabapentin (NEURONTIN) 100 mg capsule Take 2 capsules by mouth twice daily for 60 days. 120 capsule 1 11/07/2021 Active Comment on above: Take 2 capsules by [facility] twice daily for 60 days. hyoscyamine sulfate 0.12 mg / methenamine 118 mg / methylene blue 10 mg / phenyl salicylate 36 mg / sodium phosphate, monobasic 40.8 mg oral capsule (2 sources) Oxidation-Reduction Agent Start: 11-10-2020 take 1 capsule by mouth once daily [facility] Blue-Sod Hvll-HbWbc-Ese (URIBEL) 118-10-40.8-36 mg Take 1 capsule by mouth once daily. 30 capsule 5 11/10/2020 Active Comment on above: Take 1 capsule by [facility] once daily. L-LYSINE ORAL (3 sources) take 1000 mg by mouth once daily L-LYSINE ORAL Take 1,000 mg by mouth once daily. 0 Active Comment on above: Take 1,000 mg by [facility] once daily. levETIRAcetam 250 mg oral tablet [...] Narrativeon 05-26-2025 Fall risk assessment no [facility] Work Phone: MEDS REVIEW Documentation of current medications (procedure) [employer] Work Phone: MEDS REVIEWD Medications reviewed without changes [employer] Work Phone: Bilirubin Test strip Ql (U)O rdered By: Robb Barnes on 04-01-2025 Bilirubin Ql (U) Negative Negative [facility] Ketones Test strip Ql (U)Ord ered By: Robb Barnes on 04-01-2025 Ketones Ql (U) Negative Negative [facility] Nitrite Test strip Ql (U)Ord ered By: Robb Barnes on 04-01-2025 Nitrite Ql (U) Negative Negative [facility] Protein Test strip Ql (U)Ord ered By: Robb Barnes on 04-01-2025 Protein Ql (U) Negative Negative [facility] Urine clarityOrdered By: Renan Barnes on 04-01-2025 Clarity (U) Clear Clear [facility] Urine color determinationOrd ered By: Robb Barnes on 04-01-2025 Color (U) Yellow Yellow [facility] Urine cultureOrdered By: Renan Barnes on 04-01-2025 Bacteria identified Cx Nom (U) Culture exhibits no growth. [facility] Urine glucose detectionOrder ed By: oRbb Barnes on 04-01-2025 Glucose Ql (U) Normal mg/dl Normal [facility] Urine leukocyte esterase det ection by dipstickOrdered By: Robb Barnes on 04-01-2025 Leukocyte esterase Test strip Ql (U) Negative Negative [facility] Urine pHOrdered By: Robb huerta on 04-01-2025 pH (U) 6.0 [pH] 5.0 - 8.0 [facility] Urine specific gravity measu rementOrdered By: Robb Barnes on 04-01-2025 Specific gravity (U) [Rel density] 1.015 1.002-1.030 [facility] Urine urobilinogen measureme ntOrdered By: Robb Barnes on 04-01-2025 Urobilinogen Ql (U) Normal mg/dl Normal [facility] Office Visiton 03-25-2025 Follow-up visit [id number] Elba Diaz 1950 F Date Provider Department Center 03/25/2025 [id number] MARTIN [facility] None Family History Problem Relation Age of Onset Heart disease Mother Heart disease Father Carotid Artery Stenosis Father Family Status - Relation Status Age at Mother Father Level of Service:44721 [place] OFFICE/OUTPATIENT ESTABLISHED LOW MDM 20 MIN Reason for Visit and Comments: Follow-up [403613] Seizures [97] Normal [facility] Progress Noteon 03-25-2025 Progress Note [address] [facility] [address] Dept: [phone] Dept Loc: [phone] Stew Oswald MD CHIEF COMPLAINT: Chief Complaint [...] She reports that she is actively seeing [facility] ("I saw them a couple of weeks ago"). Past Medical History: has a past medical [...] Resource Strain: Low Risk (06/03/2020) Received from [facility] Overall Financial Resource Strain (CARDIA) Difficulty of Paying Living Expenses: Not hard at all Food Insecurity: No Food Insecurity (12/16/2024) Received from [facility] Hunger Vital Sign Worried About Running Out of Food in the Last Year: Never true Ran Out of Food in the Last Year: Never true Transportation Needs: No Transportation Needs (12/16/2024) Received from [facility] PRAPARE - Transportation Lack of Transportation (Medical): No Lack of Transportation (Non-Medical): No Physical Activity: Not on file Stress: Not on file Social Connections: Not on file Intimate Partner Violence: Not on file Housing Stability: Low Risk (12/16/2024) Received from [facility] Housing Stability Vital Sign Unable to Pay [...] and Station: wheel (more content not included)... [facility] 36on 02-10-2025 36 OK to send that plac e the order. [place] [address] Called [employer]@ [phone]. HARVEY Walker Auth is Valid if performed in facility. Called Ketty @ [facility] [phone] . [place] [address] Ketty-from [facility] [place], said patient was ordered a Vascular US carotic arteries bilateral Ins won't pay if she goes by a cot and this is only way patient can be transferred However, the facility does have a company that comes to [facility] And can do the Vascular US at [facility] Would this be OK? #[phone]-Ketty at [facility] Office Visiton 02-06-2025 Follow-up visit [id number] Elba Diaz 1950 F Date Provider Department Center 02/06/2025 [id number]-DQOZZSTEW OSWALD [facility] None Family History Problem Relation Age of Onset Heart disease Mother Heart disease Father Carotid Artery Stenosis Father Family Status - Relation Status Age at Mother Father Level of Service:96655 [place] OFFICE/OUTPATIENT [facility] 60 MINUTES Reason for Visit and Comments: New Patient [542] Memory Loss [66] Normal [facility] Progress Noteon 02-06-2025 Progress Note [facility] [place] [address] [facility] [address] Dept: [phone] Dept Loc: [phone] Stew Oswald MD CHIEF COMPLAINT: Chief Complaint [...] Resource Strain: Low Risk (06/03/2020) Received from [facility], [facility] Overall Financial Resource Strain (CARDIA) Difficulty of Paying Living Expenses: Not hard at all Food Insecurity: No Food Insecurity (12/16/2024) Received from [facility] Hunger Vital Sign Worried About Running Out of Food in the Last Year: Never true Ran Out of Food in the Last Year: Never true Transportation Needs: No Transportation Needs (12/16/2024) Received from [facility] PRAPARE - Transportation Lack of Transportation (Medical): No Lack of Transportation (Non-Medical): No Physical Activity: Not on file Stress: Not on file Social Connections: Not on file Intimate Partner Violence: Not on file Housing Stability: Low Risk (12/16/2024) Received from [facility] Housing Stability Vital Sign Unable to Pay for Housing in the Last Year: No Number of Times Moved in the Last Year: 1 Homeless in the Last Year: No Family History: Family History Problem Relation Name Age of Onset Heart disease Mother Heart disease Father Carotid Artery St (more content not included)... Normal [facility] Anion gap in Serum or Plasma Ordered By: Robb Barnes on 01-14-2025 Anion gap [Moles/Vol] 11 mmol/L 5-15 [facility] BUN/creatinine ratioOrdered By: Robb Barnes on 01-14-2025 Urea nitrogen/Creatinine [Mass ratio] 40.4 mg/mg High 10-20 [facility] Bilirubin, totalOrdered By: Robb Barnes on 01-14-2025 Bilirubin [Mass/Vol] 0.21 mg/dL 0.00-1.30 [facility] Carbon dioxide, total [Moles /volume] in Central venous bloodOrdered By: Rbob Barnes on 01-14-2025 CO2 [Moles/Vol] 21.7 mmol/L 21.0-32.0 [facility] Chloride assayOrdered By: Ramila Barnes on 01-14-2025 Chloride [Moles/Vol] 107 mmol/L 98-108 [facility] Erythrocyte distribution wid th (RBC) [Ratio]Ordered By: Robb Barnes on 01-14-2025 Erythrocyte distribution width (RBC) [Entitic vol] 49.8 fL High 35.1-43.9 [facility] Erythrocyte distribution wid th ratioOrdered By: Robb Barnes on 01-14-2025 Erythrocyte distribution width (RBC) [Ratio] 14.0 % 11.6-14.6 [facility] Erythrocyte distribution wid th standard deviationOrdered By: Robb Barnes on 01-14-2025 Erythrocyte distribution width (RBC) [Ratio] 49.8 fl High 35.1-43.9 [facility] GFR/1.73 sq M.predicted juwan g non-blacks MDRD (S/P/Bld) [Vol rate/Area]Ordered By: Robb Barnes on 01-14-2025 Estimated GFR (MDRD) Non-Af Amer [address] [facility] Comment on above: mL/min/1.73m2 CKD-EP I Creatinine Equation (2020) Glomerular filtration rate ( GFR) estimation/1.73 sq m using serum, plasma, or whole bOrdered By: Robb Barnes on 01-14-2025 GFR/1.73 sq M.predicted among non-blacks MDRD (S/P/Bld) [Vol rate/Area] 104 mL/min/{1.73_m2} >60 [facility] Comment on above: mL/min/1.73m2 CKD-EP I Creatinine Equation (2020) Hematocrit Auto (Bld) [Volum e fraction]Ordered By: Robb Barnes on 01-14-2025 Hematocrit (Bld) [Volume fraction] 35.0 % Low 37-47 [facility] Hemoglobin measurementOrdere d By: Robb Barnes on 01-14-2025 Hemoglobin (Bld) [Mass/Vol] 11.2 g/dL Low 12.0-15.0 [facility] Laboratory - Chemistry and C hemistry - challengeOrdered By: Robb Barnes on 01-14-2025 AST [Catalytic activity/Vol] 47 U/L High <32 [facility] MCV (mean corpuscular volume ) determinationOrdered By: Robb Barnes on 01-14-2025 MCV (RBC) [Entitic vol] 100.9 fL High 81-99 [facility] Mean corpuscular hemoglobin (MCH) determinationOrdered By: Robb Barnes on 01-14-2025 MCH (RBC) [Entitic mass] 32.3 pg High 27.0-32.0 [facility] Mean corpuscular hemoglobin concentration (MCHC) determinationOrdered By: Robb Barnes on 01-14-2025 MCHC (RBC) [Mass/Vol] 32.0 g/dL 32-36 [facility] Mean platelet volume determi nationOrdered By: Robb Barnes on 01-14-2025 Platelet mean volume (Bld) [Entitic vol] 8.8 fL 6.2-12.0 [facility] Platelet countOrdered By: Ramila Barnes on 01-14-2025 Platelets (Bld) [#/Vol] 305 10*3/uL 150-450 [facility] Potassium (Unsp spec) [Mass/ Vol]Ordered By: Robb Barnes on 01-14-2025 Potassium [Moles/Vol] 4.0 mmol/L 3.3-5.1 [facility] Potassium measurement (mass/ volume)Ordered By: Robb Barnes on 01-14-2025 Potassium (Unsp spec) [Mass/Vol] 4.0 mmol/L 3.3-5.1 [facility] RBC Auto (Bld) [#/Vol]Ordere d By: Robb Barnes on 01-14-2025 RBC (Bld) [#/Vol] 3.47 10*6/uL Low 4.2-5.4 [facility] Serum creatinine measurement (mass/volume)Ordered By: Robb Barnes on 01-14-2025 Creatinine [Mass/Vol] 0.41 mg/dL Low 0.70-1.20 [facility] Serum globulin measurementOr dered By: Robb Barnes on 01-14-2025 Globulin (S) [Mass/Vol] 2.5 g/dL 2.2-4.2 [facility] Serum glucose measurement (m ass/volume)Ordered By: Robb Barnes on 01-14-2025 Glucose [Mass/Vol] 105 mg/dL High 70-99 [facility] Serum or plasma alanine timmons otransferase (ALT) measurementOrdered By: Robb Barnes on 01-14-2025 ALT [Catalytic activity/Vol] 27 U/L <35 [facility] Serum or plasma albumin claudette urement (mass/volume)Ordered By: Robb Barnes on 01-14-2025 Albumin [Mass/Vol] 3.0 g/dL Low 3.4-4.8 [facility] Serum or plasma albumin/glob ulin mass ratioOrdered By: Robb Barnes on 01-14-2025 Albumin/Globulin [Mass ratio] 1.2 {ratio} 0.9-2.4 [facility] Serum or plasma alkaline karson sphatase measurementOrdered By: Robb Barnes on 01-14-2025 ALP [Catalytic activity/Vol] 52 U/L 35-104 [facility] Serum or plasma calcium claudette urement (mass/volume)Ordered By: Robb Barnes on 01-14-2025 Calcium [Mass/Vol] 7.5 mg/dL Low 7.6-11.0 [facility] Serum or plasma urea nitroge n measurement (mass/volume)Ordered By: Robb Barnes on 01-14-2025 Urea nitrogen [Mass/Vol] 16 mg/dL 4-19 [facility] Sodium levelOrdered By: Vern Barnes on 01-14-2025 Sodium [Moles/Vol] 139 mmol/L 133-145 [facility] Total proteinOrdered By: Renan Barnes on 01-14-2025 Protein [Mass/Vol] 5.4 g/dL Low 5.9-8.4 [facility] White blood cell (WBC) count Ordered By: Robb Barnes on 01-14-2025 WBC (Bld) [#/Vol] 8.3 10*3/uL 4.4-11.0 [facility] Basic metabolic 2000 panelon 01-13-2025 Anion gap [Moles/Vol] 10 mmol/L Normal 8-15 [facility] Comment on above: Order Comment: Speci men Type: BLOOD SPECIMENOrdering Facility: [facility] Address: [address] [place] [address] Performed By: #### 2 4320-2, ####[facility]ORY[facility]IA [id number] [place] [address] [place] Calcium [Mass/Vol] 9.3 mg/dL Normal 8.5-10.2 [facility] Comment on above: Order Comment: Speci men Type: BLOOD SPECIMENOrdering Facility: [facility] Address: [address] [place] [address] Performed By: #### 2 4320-11, ####[facility] LABORATORYCLIA [id number] [place] [address] [place] Chloride [Moles/Vol] 104 mmol/L Normal 98-107 [facility] Comment on above: Order Comment: Speci men Type: BLOOD SPECIMENOrdering Facility: [facility] Address: [address] [place] [address] Performed By: #### 2 4320-11, ####[facility]ORATORYCLIA [id number] [place] [address] [place] CO2 [Moles/Vol] 22 mmol/L Normal 22-30 [facility] Comment on above: Order Comment: Speci men Type: BLOOD SPECIMENOrdering Facility: [facility] Address: [address] [place] [address] Performed By: #### 2 4320-11, ####[facility]ATORYCLIA [id number] [place] [address] [place] Creatinine [Mass/Vol] 0.49 mg/dL Low 0.58-0.96 [facility] Comment on above: Order Comment: Speci men Type: BLOOD SPECIMENOrdering Facility: [facility] Address: [address] [place] [address] Performed By: #### 2 2, ####[facility]ORATORYCLIA [id number] [place] [address] [place] Creatinine and Glomerular filtration rate.predicted panel (S/P/Bld) 100 mL/min/1.73m??? Normal >=60 [facility] Comment on above: Order Comment: Vicky montilla Type: BLOOD SPECIMENOrdering Facility: [facility] Address: [address] [place] [address] Result Comment: Cecy mated Glomerular Filtration Rate [...] actual GFR. Performed By: #### 2 4321-2, ####[facility]ORATORYCLIA [id number] [place] [address] [place] Glucose [Mass/Vol] 117 mg/dL High 74-99 [facility] Comment on above: Order Comment: Vicky montilla Type: BLOOD SPECIMENOrdering Facility: [facility] Address: [address] [place] [address] Result Comment: The [place] [employer] (ADA) provides guidance for cutoff [...] Standards of Medical Care in Diabetes 2016, [place] [employer]. Diabetes Care. 2016.39(Suppl 1). Performed By: #### 2 4321-2, ####[facility]ORATORYCLIA [id number] [place] [address] [place] Potassium [Moles/Vol] 4.6 mmol/L Normal 3.7-5.1 [facility] Comment on above: Order Comment: Speci men Type: BLOOD SPECIMENOrdering Facility: [facility] Address: [address] [place] [address] Performed By: #### 2 4321-2, ####[facility] LABORATORYCLIA [id number] [address] STATES OF [facility] Sodium [Moles/Vol] 136 mmol/L Normal 136-144 [facility] Comment on above: Order Comment: Speci men Type: BLOOD SPECIMENOrdering Facility: [facility] Address: [address] [place] [address] Performed By: #### 2 4321-2, ####[facility] LABORATORYCLIA [id number] [address] [place] Urea nitrogen [Mass/Vol] 18 mg/dL Normal 7-21 [facility] Comment on above: Order Comment: Speci men Type: BLOOD SPECIMENOrdering Facility: [facility] Address: [address] [place] [address] Performed By: #### 2 4320-2, ####[facility] LABORATORYCLIA [id number] [address] STATES OF [facility] CBC panel Auto (Bld)on 01-13 Erythrocyte distribution width (RBC) [Ratio] 13.6 % Normal 11.5-15.0 [facility] Comment on above: Order Comment: Speci men Type: BLOOD SPECIMEN [facility]: [facility] Address: [address] [place] [address] Performed By: #### 2 4321-2, , 6-3 #### [facility] CLIA [id number] [address] STATES OF [facility] Hematocrit (Bld) [Volume fraction] 34.1 % Low 36.0-46.0 [facility] Comment on above: Order Comment: Speci men Type: BLOOD SPECIMEN [facility]ing [facility]: [facility] Address: [address] [place] [address] Performed By: #### 2 4321-2, , 3 #### [facility] CLIA [id number] [address] Hemoglobin (Bld) [Mass/Vol] 11.3 g/dL Low 11.5-15.5 [facility] Comment on above: Order Comment: Speci men Type: BLOOD SPECIMEN Ordering Facility: [facility] Address: [address] [place] [address] Performed By: #### 2 4320-2, , 3 #### [facility] CLIA [id number] [address] MCH (RBC) [Entitic mass] 32.9 pg Normal 26.0-34.0 [facility] Comment on above: Order Comment: Speci men Type: BLOOD SPECIMEN Ordering Facility: [facility] Address: [address] [place] [address] Performed By: #### 2 2, , 3015-12 #### [facility] CLIA [id number] [address] MCHC (RBC) [Mass/Vol] 33.1 g/dL Normal 30.5-36.0 [facility] Comment on above: Order Comment: Speci men Type: BLOOD SPECIMEN Ordering Facility: [facility] Address: [address] [place] [address] Performed By: #### 2 4320-2, , 3 #### [facility] CLIA [id number] [address] MCV (RBC) [Entitic vol] 99.4 fL Normal 80.0-100.0 [facility] Comment on above: Order Comment: Speci men Type: BLOOD SPECIMEN Ordering Facility: [facility] Address: [address] [place] [address] Performed By: #### 2 4320-2, , 3 #### [facility] CLIA [id number] [address] Nucleated RBC (Bld) [#/Vol] 0.06 10*3/uL High <0.01 [facility] Comment on above: Order Comment: Speci men Type: BLOOD SPECIMEN Ordering Facility: [facility] Address: [address] [place] [address] Performed By: #### 2 4321-2, 57743-4, 6-3 #### [facility] CLIA [id number] [address] [place] Platelet mean volume (Bld) [Entitic vol] 8.5 fL Low 9.0-12.7 [facility] Comment on above: Order Comment: Speci men Type: BLOOD SPECIMEN Ordering Facility: [facility] Address: [address] [place] [address] Performed By: #### 2 4321-2, 47936-8, 6-3 #### [facility] CLIA [id number] [address] Platelets (Bld) [#/Vol] 266 10*3/uL Normal 150-400 [facility] Comment on above: Order Comment: Speci men Type: BLOOD SPECIMEN Ordering Facility: [facility] Address: [address] [place] [address] Performed By: #### 2 4321-2, , 6-3 #### [facility] CLIA [id number] [address] OF [place] RBC (Bld) [#/Vol] 3.43 10*6/uL Low 3.90-5.20 [facility] Comment on above: Order Comment: Speci men Type: BLOOD SPECIMEN Ordering Facility: [facility] Address: [address] [place] [address] Performed By: #### 2 4321-2, 18711-3, 6-3 #### [facility] CLIA [id number] [address] OF [place] WBC (Bld) [#/Vol] 9.23 10*3/uL Normal 3.70-11.00 [facility] Comment on above: Order Comment: Speci men Type: BLOOD SPECIMEN Ordering Facility: [facility] Address: [address] [place] [address] Performed By: #### 2 4321-2, 04448-5, 3016-3 #### [facility] CLIA [id number] [address] OF [facility] CNDSon 01-13-2025 CNDS HNO ID: [id number] Author: NILTON RODRIGUEZ DO Service: Hospital Medicine [...] noted per chart review/discussing with son that Zuleyka had cased the patient to have altered [...] call for appointment?: Yes Stew Oswald MD [phone] [place] [address] PCP Requested Referral Additional Provider to Provider [...] noted per chart review/discussing with son that Zuleyka had cased the patient to have altered mental status in the past. MRI obtained and was negative for acute stroke. Patient's mentation and right sided weakness are improving. Speech evaluated patient while admitted and recommended pureed diet with thickened liquids, meds crushed. She is medically stable to discharge to her ECF. Wound 01/10/25 0213 Pressure Injury Heel Right (Active) Properties Placement Date 01/10/25 Placement Time 021 Location Heel Present on Original Admission Yes [...] (Active) Properties Placement Date 01/10/25 Placement Time 021 Location Heel Present on Original Admission Yes Primary Wound Type Pressure In (more content not included)... Normal [facility] Magnesium SerPl-mCncon 01-13 Magnesium [Mass/Vol] 1.7 mg/dL Normal 1.7-2.3 [facility] Comment on above: Order Comment: Speci men Type: BLOOD SPECIMENOrdering Facility: [facility] Address: [address] [place] [address] Performed By: #### 2 4321-2, ####[facility] [id number] [place] [address] [place] Basic metabolic 2000 panelon 01-12-2025 Anion gap [Moles/Vol] 12 mmol/L Normal 8-15 [facility] Comment on above: Order Comment: Speci men Type: BLOOD SPECIMENOrdering Facility: [facility] Address: [address] [place] [address] Performed By: #### 2 4321-2, ####[facility] [id number] [place] [address] [place] Calcium [Mass/Vol] 9.2 mg/dL Normal 8.5-10.2 [facility] Comment on above: Order Comment: Speci men Type: BLOOD SPECIMENOrdering Facility: [facility] Address: [address] [place] [address] Performed By: #### 2 432-2, ####[facility] [id number] [place] [address] [place] Chloride [Moles/Vol] 104 mmol/L Normal 98-107 [facility] Comment on above: Order Comment: Speci men Type: BLOOD SPECIMENOrdering Facility: [facility] Address: [address] [place] [address] Performed By: #### 2 43210-23, ####[facility] [id number] [place] [address] [place] CO2 [Moles/Vol] 20 mmol/L Low 22-30 [facility] Comment on above: Order Comment: Speci men Type: BLOOD SPECIMENOrdering Facility: [facility] Address: [address] [place] [address] Performed By: #### 2 4320-11, ####[facility] [id number] [place] [id number] [place] OF [facility] Creatinine [Mass/Vol] 0.50 mg/dL Low 0.58-0.96 [facility] Comment on above: Order Comment: Speci men Type: BLOOD SPECIMENOrdering Facility: [facility] Address: [address] [place] [address] Performed By: #### 2 4320-11, ####[facility] [id number] [address] Creatinine and Glomerular filtration rate.predicted panel (S/P/Bld) 99 mL/min/1.73m??? Normal >=60 [facility] Comment on above: Order Comment: Speci men Type: BLOOD SPECIMENOrdering Facility: [facility] Address: [address] [place] [address] Result Comment: Cecy mated Glomerular Filtration Rate [...] reflect actual GFR. Performed By: #### 2 432-2, ####[facility] [id number] [place] [id number] [place] Glucose [Mass/Vol] 106 mg/dL High 74-99 [facility] Comment on above: Order Comment: Speci men Type: BLOOD SPECIMENOrdering Facility: [facility] Address: [address] [place] [address] Result Comment: The [place] [employer] (ADA) provides guidance for cutoff [...] Standards of Medical Care in Diabetes 2016, [place] [employer]. Diabetes Care. 2016.39(Suppl 1). Performed By: #### 2 43210-23, ####[facility] [id number] [place] [address] [place] Potassium [Moles/Vol] 4.8 mmol/L Normal 3.7-5.1 [facility] Comment on above: Order Comment: Speci men Type: BLOOD SPECIMENOrdering Facility: [facility] Address: [address] [place] [address] Performed By: #### 2 4320-11, ####[facility]ORY[facility]IA [id number] [place] [address] [place] Sodium [Moles/Vol] 136 mmol/L Normal 136-144 [facility] Comment on above: Order Comment: Speci men Type: BLOOD SPECIMENOrdering Facility: [facility] Address: [address] [place], [place] [address] Performed By: #### 2 4320-11, ####[facility]ORY[facility]IA [id number] [place] [address] [place] Urea nitrogen [Mass/Vol] 15 mg/dL Normal 7-21 [facility] Comment on above: Order Comment: Speci men Type: BLOOD SPECIMENOrdering Facility: [facility] Address: [address] [place] [address] Performed By: #### 2 4321-2, ####[facility]ATORYCLIA [id number] [address] OF [facility] CBC panel Auto (Bld)on 01-12 Erythrocyte distribution width (RBC) [Ratio] 13.7 % Normal 11.5-15.0 [facility] Comment on above: Order Comment: Speci men Type: BLOOD SPECIMEN Ordering Facility: [facility] Address: [address] [place] [address] Performed By: #### 2 4321-2, , 3 #### [facility] CLIA [id number] [address] [place] [address] Hematocrit (Bld) [Volume fraction] 36.4 % Normal 36.0-46.0 [facility] Comment on above: Order Comment: Speci men Type: BLOOD SPECIMEN Ordering Facility: [facility] Address: [address] [place] [address] Performed By: #### 2 4320-2, , 3 #### [facility] CLIA [id number] [address] [place] [address] Hemoglobin (Bld) [Mass/Vol] 11.8 g/dL Normal 11.5-15.5 [facility] Comment on above: Order Comment: Speci men Type: BLOOD SPECIMEN Ordering Facility: [facility] Address: [address] [place] [address] Performed By: #### 2 4321-2, , 3015-3 #### [facility] CLIA [id number] [address] MCH (RBC) [Entitic mass] 33.1 pg Normal 26.0-34.0 [facility] Comment on above: Order Comment: Speci men Type: BLOOD SPECIMEN Ordering Facility: [facility] Address: [address] [place] [address] Performed By: #### 2 4321-2, , 3015-3 #### [facility] CLIA [id number] [address] MCHC (RBC) [Mass/Vol] 32.4 g/dL Normal 30.5-36.0 [facility] Comment on above: Order Comment: Speci men Type: BLOOD SPECIMEN Ordering Facility: [facility] Address: [address] [place] [address] Performed By: #### 2 4321-2, , 3015-3 #### [facility] CLIA [id number] [address] OF [facility] MCV (RBC) [Entitic vol] 102.0 fL High 80.0-100.0 [facility] Comment on above: Order Comment: Speci men Type: BLOOD SPECIMEN Ordering Facility: [facility] Address: [address] [place] [address] Performed By: #### 2 1-2, , 3 #### [facility] CLIA [id number] [address] Nucleated RBC (Bld) [#/Vol] 10*3/uL Normal <0.01 [facility] Comment on above: Order Comment: Speci men Type: BLOOD SPECIMEN Ordering Facility: [facility] Address: [address] [place] [address] Performed By: #### 2 4321-2, , 3 #### [facility] CLIA [id number] [address] Platelet mean volume (Bld) [Entitic vol] 8.4 fL Low 9.0-12.7 [facility] Comment on above: Order Comment: Speci men Type: BLOOD SPECIMEN Ordering Facility: [facility] Address: [address] [place] [address] Performed By: #### 2 4321-2, , 3015-3 #### [facility] CLIA [id number] 1 [place] [address] [place] Platelets (Bld) [#/Vol] 242 10*3/uL Normal 150-400 [facility] Comment on above: Order Comment: Speci men Type: BLOOD SPECIMEN Ordering Facility: [facility] Address: [address] [place] [address] Performed By: #### 2 4321-2, 55331-1, 6-3 #### [facility] CLIA [id number] 1 [place] [address] [place] RBC (Bld) [#/Vol] 3.57 10*6/uL Low 3.90-5.20 [facility] Comment on above: Order Comment: Speci men Type: BLOOD SPECIMEN Ordering Facility: [facility] Address: [address] [place] [address] Performed By: #### 2 4321-2, 23182-7, 6-3 #### [facility] CLIA [id number] [address] OF [place] WBC (Bld) [#/Vol] 9.56 10*3/uL Normal 3.70-11.00 [facility] Comment on above: Order Comment: Speci men Type: BLOOD SPECIMEN Ordering Facility: [facility] Address: [address] [place] [address] Performed By: #### 2 4321-2, 98478-8, 6-3 #### [facility] CLIA [id number] [address] [place] [address] [place] CONSULT PROGon 01-12-2025 CONSULT PROG HNO ID: [id number] Author: PATY GLASGOW APRN.WAREHOUSE ADMINISTRATIVE ASSISTANT Service: Neurology General Author Type: Nurse Practitioner [...] Oriented to person, place, year not month "January" and states her age is "28" Speech mild dysarthria but also poor dentition [...] fluctuating confusion and possible neglect on exam. [facility] (limited info) shows that Keppra started on [...] issues arise. Discharge instructions updated SIGNATURE: Paty Glasgow APRN.CNP PATIENT NAME: Elba Diaz DATE: January 12, 2025 TIME: 10:18 AM Discussed with: patient Communicated with primary team I spent a total of 25 minutes on the date of the service which included preparing to see the patient, elzy-gx-mkey patient care, completing clinical documentation, obtaining and/or reviewing separately obtained history, performing a medically appropriate examination, counseling and educating the patient/family/caregive r, communicating results to the patient/family/caregive r, and care coordination. Normal [facility] CONSULT PROG HNO ID: [id number] Author: SHELLY POLK RN Service: Wound/Ostomy Author [...] Authorizing Provider 01/12/25 1437 DRESSING CARE (SPECIFY) ([place]), Irritant Contact Moisture Sacrum Routine Active Nadine Pal, CLINICAL REHABILITATION AIDE.WAREHOUSE ADMINISTRATIVE ASSISTANT - Reason:: Xeroform to sacrum - Reason:: [...] 1 Site Assessment Non-blanchable erythema Willow-Wound Assessment Winslow Shape linear Wound Length (cm) 2.4 cm Wound Width (cm) 0.4 cm Wound Surface Area (cm2) 0.96 cm2 Wound Depth (cm) 0 cm Wound Volume (cm3) 0 cm3 Drainage Amount None Odor None Treatments Cleansed Dressing Foam- Adhesive Dressing Status Clean;Dry;Intact No associated orders. Wound 01/10/25 Irritant Contact Moisture Breast Left;Lower (Active) Assessments 01/12/2025 9:49 AM Wound Image Site Assessment [place] Willow-Wound Assessment Moist Shape linear Closure None Drainage Amount None Odor None Treatments Cleansed;Open to Air Active Orders Date Order Priority Status Authorizing Provider 01/12/25 1437 miconazole 2 % 1 application topical powder Active Blasiole, Nadine N, CLINICAL REHABILITATION AIDE.WAREHOUSE ADMINISTRATIVE ASSISTANT Wound 01/10/25 0225 Irritant Contact Moisture Groin (Active) Assessments 01/12/2025 9:49 AM Wound Image Site Assessment [place] Willow-Wound Assessment Moist Shape linear Drainage Amount None Odor None Treatments Cleansed;Open to Air Active Orders Date Order Priority Status Authorizing Provider 01/12/25 1437 miconazole 2 % 1 application topical powder Active Blasiole, Nadine N, CLINICAL REHABILITATION AIDE.WAREHOUSE ADMINISTRATIVE ASSISTANT Barriers to Healing: Age, Body habitus, Comorbid [...] found under the Scanned Documents tab on [facility]. The purpose of the photo(s) is to optimize the patient's medical care and allow a visual aid to their wound evaluation and progress. Thank you for including me in the care of this patient. (more content not included)... Normal [facility] Magnesium SerPl-mCncon 01-12 Magnesium [Mass/Vol] 1.9 mg/dL Normal 1.7-2.3 [facility] Comment on above: Order Comment: Speci men Type: BLOOD SPECIMEN Ordering Facility: [facility] Address: [address] [place] [address] Performed By: #### 3 0471-7 #### [facility] CLIA [id number] [address] [place] [address] OF [place] THERAPY NTon 01-12-2025 THERAPY NT HNO ID: [id number] Author: YEE TRIPLETT CCC-DIE REPAIRER STAMPING Service: Speech/Swallow Author Type: Speech Language Pathologist Type: Therapy (PT/OT/Speech/Resp) Filed: 01/12/2025 08:48 Note Text: Speech Therapy Clinical Swallow Evaluation SERVICE DATE: 01/12/2025 SERVICE TIME: 0815 to 0830 ROOM: [place] [address] IMPRESSION Swallow Deficits Identified / Suspected: Oropharyngeal dysphagia Speech Rehab Potential: Fair RECOMMENDATIONS Diet Recommendations Pureed IDDSI Level 4 Mildly Thick Liquids IDDSI Level 2 ([place] Thick) Medications crushed in puree (pudding/applesauce) Swallow [...] Justification for Recommended Discharge Disposition: Continued skilled DIE REPAIRER STAMPING care recommended after hospital discharge for:, dysphagia requiring frequent assessment and diet modification CURRENT HOSPITAL COURSE Admitted from [facility], 3-23: MRI Brain- No acute intracranial [...] 5, Mildly Thick Liquids IDDSI Level 2 ([place] Thick), Medications crushed in puree (pudding/applesauce) SUBJECTIVE Drowsy but tries to participate, agrees to testing THERAPY DIAGNOSIS Dysphagia, unspecified TREATMENT INTERVENTIONS Clinical Swallow Evaluation (20282) Skilled Treatment Time (minutes): 15 $ Clinical Swallow Evaluation (98501) Billed Units: 1 unit TRAINING AND EDUCATION [...] 5, Mildly Thick Liquids IDDSI Level 2 ([place] Thick) Current Level Of Communication: Verbal Current [...] During Assessment: Upright In Bed Feeding Method: DIE REPAIRER STAMPING Fed Patient Consistencies Presented: Mildly Thick Liquids IDDSI Level 2 ([place] Thick), Thin Liquids IDDSI Level 0, Pureed [...] Study: (patient reports choking on thins at [facility]) Patient coughing and choking on thins Patient reports coughing on thins at [facility] and now needing nectars Patient did not cough with nectars or puree Patient with slow chewing with minced and moist, needed cues to chew, holding (more content not included)... Normal [facility] ALLIED HEALTHon 01-11-2025 ALLIED HEALTH HNO ID: [id number] Author: KRISTIAN CHESTER RT(R) Service: ? Author Type: Technologist Type: Allied [...] PATIENT PRESENTS WITH AN IMPLANTABLE OR ATTACHED ENVIRONMENTAL COMMUNICATIONS SPECIALIST: No RADIOLOGY DEPARTMENT: MR; Exam(s) Completed: Head: Routine Brain PERIPHERAL IV DATA: Inpatient: see LDA documentation SIGNED BY: RT Bobby(R) January 11, 2025 4:12 PM Normal [facility] Basic metabolic 2000 panelon 01-11-2025 Anion gap [Moles/Vol] 13 mmol/L Normal 8-15 [facility] Comment on above: Order Comment: Speci men Type: BLOOD SPECIMEN Ordering Facility: [facility] Address: [address] [place] [address] Performed By: #### 3 0471-7 #### [facility] CLIA [id number] [address] [place] [address] [place] Calcium [Mass/Vol] 8.9 mg/dL Normal 8.5-10.2 [facility] Comment on above: Order Comment: Speci men Type: BLOOD SPECIMEN Ordering Facility: [facility] Address: [address] [place] [address] Performed By: #### 3 0471-7 #### [facility] CLIA [id number] [address] [place] [address] [place] Chloride [Moles/Vol] 100 mmol/L Normal 98-107 [facility] Comment on above: Order Comment: Speci men Type: BLOOD SPECIMEN Ordering Facility: [facility] Address: [address] [place] [address] Performed By: #### 3 0471-7 #### [facility] CLIA [id number] [address] [place] [address] [place] CO2 [Moles/Vol] 18 mmol/L Low 22-30 [facility] Comment on above: Order Comment: Speci men Type: BLOOD SPECIMEN Ordering Facility: [facility] Address: [address] [place] [address] Performed By: #### 3 0471-7 #### [facility] CLIA [id number] [address] [place] [address] [place] Creatinine [Mass/Vol] 0.45 mg/dL Low 0.58-0.96 [facility] Comment on above: Order Comment: Vicky [place] Type: BLOOD SPECIMEN Ordering Facility: [facility] Address: [address] [place] [address] Performed By: #### 3 0471-7 #### [facility] CLIA [id number] [address] [place] [address] [place] Creatinine and Glomerular filtration rate.predicted panel (S/P/Bld) 102 mL/min/1.73m??? Normal >=60 [facility] Comment on above: Order Comment: Vicky [place] Type: BLOOD SPECIMEN Ordering Facility: [facility] Address: [address] [place] [address] Result Comment: Cecy mated Glomerular Filtration Rate [...] GFR. Performed By: #### 3 0471-7 #### [facility] CLIA [id number] [address] [place] [address] [place] Glucose [Mass/Vol] 91 mg/dL Normal 74-99 [facility] Comment on above: Order Comment: Vicky [place] Type: BLOOD SPECIMEN Ordering Facility: [facility] Address: [address] [place] [address] Result Comment: The [place] Diabetes Association (ADA) provides guidance for cutoff [...] Standards of Medical Care in Diabetes 2016, [place] [employer]. Diabetes Care. 2016.39(Suppl 1). Performed By: #### 3 0471-7 #### [facility] CLIA [id number] [address] [place] [address] [place] Potassium [Moles/Vol] 4.3 mmol/L Normal 3.7-5.1 [facility] Comment on above: Order Comment: Speci men Type: BLOOD SPECIMEN Ordering Facility: [facility] Address: [address] [place] [address] Performed By: #### 3 0471-7 #### [facility] CLIA [id number] [address] [place] [address] [place] Sodium [Moles/Vol] 131 mmol/L Low 136-144 [facility] Comment on above: Order Comment: Speci men Type: BLOOD SPECIMEN Ordering Facility: [facility] Address: [address] [place] [address] Performed By: #### 3 0471-7 #### [facility] CLIA [id number] [address] [place] [address] [place] Urea nitrogen [Mass/Vol] 15 mg/dL Normal 7-21 [facility] Comment on above: Order Comment: Speci men Type: BLOOD SPECIMEN Ordering Facility: [facility] Address: [address] [place] [address] Performed By: #### 3 0471-7 #### [facility] CLIA [id number] [address] [place], [place] [id number] [place] CBC panel Auto (Bld)on 01-11 Erythrocyte distribution width (RBC) [Ratio] 13.2 % Normal 11.5-15.0 [facility] Comment on above: Order Comment: Speci men Type: BLOOD SPECIMEN Ordering Facility: [facility] Address: [address] [place] [address] Performed By: #### 2 4321-2, 53635-7, 3016-3 #### [facility] CLIA [id number] [address] STATES OF [facility] Hematocrit (Bld) [Volume fraction] 36.6 % Normal 36.0-46.0 [facility] Comment on above: Order Comment: Speci men Type: BLOOD SPECIMEN Ordering Facility: [facility] Address: [address] [place] [address] Performed By: #### 2 4321-2, , 3 #### [facility] CLIA [id number] [address] STATES OF [facility] Hemoglobin (Bld) [Mass/Vol] 12.0 g/dL Normal 11.5-15.5 [facility] Comment on above: Order Comment: Speci men Type: BLOOD SPECIMEN Ordering Facility: [facility] Address: [address] [place] [address] Performed By: #### 2 4321-2, , 3 #### [facility] CLIA [id number] [address] MCH (RBC) [Entitic mass] 32.6 pg Normal 26.0-34.0 [facility] Comment on above: Order Comment: Speci men Type: BLOOD SPECIMEN Ordering Facility: [facility] Address: [address] [place] [address] Performed By: #### 2 4321-2, , 3 #### [facility] CLIA [id number] [address] STATES OF [place] MCHC (RBC) [Mass/Vol] 32.8 g/dL Normal 30.5-36.0 [facility] Comment on above: Order Comment: Speci men Type: BLOOD SPECIMEN Ordering Facility: [facility] Address: [address] [place] [address] Performed By: #### 2 4321-2, , 3015-3 #### [facility] CLIA [id number] [address] [place] MCV (RBC) [Entitic vol] 99.5 fL Normal 80.0-100.0 [facility] Comment on above: Order Comment: Speci men Type: BLOOD SPECIMEN Ordering Facility: [facility] Address: [address] [place] [address] Performed By: #### 2 4321-2, , 3 #### [facility] CLIA [id number] [address] [place] Nucleated RBC (Bld) [#/Vol] 0.02 10*3/uL High <0.01 [facility] Comment on above: Order Comment: Speci men Type: BLOOD SPECIMEN Ordering Facility: [facility] Address: [address] [place] [address] Performed By: #### 2 1-2, , 3015-12 #### [facility] CLIA [id number] [address] [place] Platelet mean volume (Bld) [Entitic vol] 8.5 fL Low 9.0-12.7 [facility] Comment on above: Order Comment: Speci men Type: BLOOD SPECIMEN Ordering Facility: [facility] Address: [address] [place] [address] Performed By: #### 2 4320-2, , 3015-12 #### [facility] CLIA [id number] [address] [place] Platelets (Bld) [#/Vol] 227 10*3/uL Normal 150-400 [facility] Comment on above: Order Comment: Speci men Type: BLOOD SPECIMEN Ordering Facility: [facility] Address: [address] [place] [address] Performed By: #### 2 1-2, , 3 #### [facility] CLIA [id number] [address] [place] RBC (Bld) [#/Vol] 3.68 10*6/uL Low 3.90-5.20 [facility] Comment on above: Order Comment: Speci men Type: BLOOD SPECIMEN Ordering Facility: [facility] Address: [address] [place] [address] Performed By: #### 2 4321-2, , 3015-12 #### [facility] CLIA [id number] 1 [place] [id number] [facility] [place] WBC (Bld) [#/Vol] 8.76 10*3/uL Normal 3.70-11.00 [facility] Comment on above: Order Comment: Speci men Type: BLOOD SPECIMEN Ordering Facility: [facility] Address: [address] [place] [address] Performed By: #### 2 4321-2, , 3015-12 #### [facility] CLIA [id number] 1 [place] [id number] [facility] [place] CONSULTon 01-11-2025 CONSULT HNO ID: [id number] Author: JAYDON SIMEON MD Service: Neurology General [...] tab(s) (REQUIP) 1 mg ORAL AT BEDTIME Elia Carreno II, MD 1 mg at 01/10/25 [...] (Oral) Resp 16 Ht 157.5 cm (5' 2") Wt 77.2 kg (170 lb 3.1 oz) [...] plegia Sensation: Intact to light touch Coordination: Vqtclr-hj-fomq on R intact DATA: LABS: Reviewed in [facility] WBC (k/uL) Date Value 01/11/2025 8.76 06/08/2020 [...] 0.99 Creatinin (more content not included)... Normal [facility] MRI BRAIN WO IVCONon 025 MRI BRAIN WO IVCON * * *Final Report* * * DATE OF EXAM: Jan 11 2025 4:24PM [facility] 0294 - MRI BRAIN WO IVCON / [...] intracranial process. Chronic changes and remote infarcts. Automatic Screwmaker: ALEXANDRO Transcribe Date/Time: Jan 11 2025 5:04P Dictated by : DELBERT HYATT MD This examination was interpreted and the report reviewed and electronically signed by: DELBERT HYATT MD on Jan 11 2025 5:50PM EST [id number] Normal [facility] Magnesium SerPl-mCncon 01-11 Magnesium [Mass/Vol] 2.3 mg/dL Normal 1.7-2.3 [facility] Comment on above: Order Comment: Speci men Type: BLOOD SPECIMEN Ordering Facility: [facility] Address: [address] [place] [address] Performed By: #### 3 0471-7 #### [facility] CLIA [id number] [address] [place] [address] [place] T4 Free SerPl-mCncon 025 Free T4 [Mass/Vol] 1.1 ng/dL Normal 0.9-1.7 [facility] Comment on above: Order Comment: Speci men Type: BLOOD SPECIMEN Ordering Facility: [facility] Address: [address] [place] [address] Performed By: #### 3 0471-7 #### [facility] CLIA [id number] [address] [place] [address] [place] Basic metabolic 2000 panelon 01-10-2025 Anion gap [Moles/Vol] 9 mmol/L Normal 8-15 [facility] Comment on above: Order Comment: Speci men Type: BLOOD SPECIMEN Ordering Facility: [facility] Address: [address] [place] [address] Performed By: #### 2 4321-2, , 3 #### [facility] CLIA [id number] 1 [place] [address] [place] Calcium [Mass/Vol] 8.2 mg/dL Low 8.5-10.2 [facility] Comment on above: Order Comment: Speci men Type: BLOOD SPECIMEN Ordering Facility: [facility] Address: [address] [place] [address] Performed By: #### 2 4321-2, , 3015-3 #### [facility] CLIA [id number] 1 [place] [address] [place] Chloride [Moles/Vol] 104 mmol/L Normal 98-107 [facility] Comment on above: Order Comment: Specjey montilla Type: BLOOD SPECIMEN Ordering Facility: [facility] Address: [address] [place] [address] Performed By: #### 2 4321-2, 55127-3, 6-3 #### [facility] CLIA [id number] 1 [place] [id number] [place] CO2 [Moles/Vol] 22 mmol/L Normal 22-30 [facility] Comment on above: Order Comment: Speci men Type: BLOOD SPECIMEN Ordering Facility: [facility] Address: [address] [place] [address] Performed By: #### 2 4321-2, 83982-1, 6-3 #### [facility] CLIA [id number] [address] OF [facility] Creatinine [Mass/Vol] 0.32 mg/dL Low 0.58-0.96 [facility] Comment on above: Order Comment: Speci men Type: BLOOD SPECIMEN Ordering Facility: [facility] Address: [address] [place] [address] Performed By: #### 2 4321-2, 78329-9, 6-3 #### [facility] CLIA [id number] [address] Creatinine and Glomerular filtration rate.predicted panel (S/P/Bld) 110 mL/min/1.73m??? Normal >=60 [facility] Comment on above: Order Comment: Speci men Type: BLOOD SPECIMEN Ordering Facility: [facility] Address: [address] [place] [address] Result Comment: Cecy mated Glomerular Filtration Rate [...] By: #### 2 4321-2, , 3 #### [facility] CLIA [id number] 1 [place] [address] [place] Glucose [Mass/Vol] 100 mg/dL High 74-99 [facility] Comment on above: Order Comment: Vicky montilla Type: BLOOD SPECIMEN Ordering Facility: [facility] Address: [address] [place] [address] Result Comment: The [place] [employer] (ADA) provides guidance for cutoff [...] Standards of Medical Care in Diabetes 2016, [place] [employer]. Diabetes Care. 2016.39(Suppl 1). Performed By: #### 2 4321-2, , 3015-12 #### [facility] CLIA [id number] 1 [place] [address] [place] Potassium [Moles/Vol] 3.3 mmol/L Low 3.7-5.1 [facility] Comment on above: Order Comment: Vicky montilla Type: BLOOD SPECIMEN Ordering Facility: [facility] Address: [address] [place] [address] Performed By: #### 2 4321-2, , 3015-3 #### [facility] CLIA [id number] 1 [place] [address] [place] Sodium [Moles/Vol] 135 mmol/L Low 136-144 [facility] Comment on above: Order Comment: Vicky montilla Type: BLOOD SPECIMEN Ordering Facility: [facility] Address: [address] [place], [place] [address] Performed By: #### 2 4321-2, 92735-8, 6-3 #### [facility] CLIA [id number] [address] [place] Urea nitrogen [Mass/Vol] 21 mg/dL Normal 7-21 [facility] Comment on above: Order Comment: Speci men Type: BLOOD SPECIMEN Ordering Facility: [facility] Address: [address] [place] [address] Performed By: #### 2 4321-2, 59524-2, 3015-3 #### [facility] CLIA [id number] [address] STATES OF [facility] CBC panel Auto (Bld)on 01-10 Erythrocyte distribution width (RBC) [Ratio] 12.7 % Normal 11.5-15.0 [facility] Comment on above: Order Comment: Speci men Type: BLOOD SPECIMEN Ordering Facility: [facility] Address: [address] [place] [address] Performed By: #### 3 0471-7 #### [facility] CLIA [id number] [address] [place] [address] [place] Hematocrit (Bld) [Volume fraction] 32.2 % Low 36.0-46.0 [facility] Comment on above: Order Comment: Speci men Type: BLOOD SPECIMEN Ordering Facility: [facility] Address: [address] [place] [address] Performed By: #### 3 0471-7 #### [facility] CLIA [id number] [address] [place] [address] [place] Hemoglobin (Bld) [Mass/Vol] 10.7 g/dL Low 11.5-15.5 [facility] Comment on above: Order Comment: Speci men Type: BLOOD SPECIMEN Ordering Facility: [facility] Address: [address] [place] [address] Performed By: #### 3 0471-7 #### [facility] CLIA [id number] [address] [place] [address] [place] MCH (RBC) [Entitic mass] 32.7 pg Normal 26.0-34.0 [facility] Comment on above: Order Comment: Speci men Type: BLOOD SPECIMEN Ordering Facility: [facility] Address: [address] [place] [address] Performed By: #### 3 0471-7 #### [facility] CLIA [id number] [address] [place] [address] [place] MCHC (RBC) [Mass/Vol] 33.2 g/dL Normal 30.5-36.0 [facility] Comment on above: Order Comment: Speci men Type: BLOOD SPECIMEN Ordering Facility: [facility] Address: [address] [place] [address] Performed By: #### 3 0471-7 #### [facility] CLIA [id number] [address] [place] [address] [place] MCV (RBC) [Entitic vol] 98.5 fL Normal 80.0-100.0 [facility] Comment on above: Order Comment: Speci men Type: BLOOD SPECIMEN Ordering Facility: [facility] Address: [address] [place] [address] Performed By: #### 3 0471-7 #### [facility] CLIA [id number] [address] [place] [address] [place] Nucleated RBC (Bld) [#/Vol] 10*3/uL Normal <0.01 [facility] Comment on above: Order Comment: Speci men Type: BLOOD SPECIMEN Ordering Facility: [facility] Address: [address] [place] [address] Performed By: #### 3 0471-7 #### [facility] CLIA [id number] [address] [place] [address] [place] Platelet mean volume (Bld) [Entitic vol] 8.3 fL Low 9.0-12.7 [facility] Comment on above: Order Comment: Speci men Type: BLOOD SPECIMEN Ordering Facility: [facility] Address: [address] [place] [address] Performed By: #### 3 0471-7 #### [facility] CLIA [id number] [address] [place] [address] [place] Platelets (Bld) [#/Vol] 168 10*3/uL Normal 150-400 [facility] Comment on above: Order Comment: Speci men Type: BLOOD SPECIMEN Ordering Facility: [facility] Address: [address] [place] [address] Performed By: #### 3 0471-7 #### [facility] CLIA [id number] [address] [place] [address] [place] RBC (Bld) [#/Vol] 3.27 10*6/uL Low 3.90-5.20 [facility] Comment on above: Order Comment: Speci men Type: BLOOD SPECIMEN Ordering Facility: [facility] Address: [address] [place] [address] Performed By: #### 3 0471-7 #### [facility] CLIA [id number] [address] [place] [address] [place] WBC (Bld) [#/Vol] 11.16 10*3/uL High 3.70-11.00 [facility] Comment on above: Order Comment: Speci men Type: BLOOD SPECIMEN Ordering Facility: [facility] Address: [address] [place] [address] Performed By: #### 3 0471-7 #### [facility] CLIA [id number] [address] [place] [address] OF [facility] ED NOTEon 01-10-2025 ED NOTE HNO ID: [id number] Author: CHASIDY BOUDREAUX RN Service: Emergency Medicine Author Type: Registered Nurse Type: ED Notes Filed: 01/10/2025 00:42 Note Text: 7100 receiving nurse Stephanie called for verbal report. Ok'd for pt. Normal [facility] Magnesium SerPl-mCncon 01-10 Magnesium [Mass/Vol] 1.6 mg/dL Low 1.7-2.3 [facility] Comment on above: Order Comment: Speci men Type: BLOOD SPECIMEN Ordering Facility: [facility] Address: [address] [place] [address] Performed By: #### 2 4321-2, , 3015-3 #### [facility] CLIA [id number] 1 [place] [address] [place] TSH SerPl-aCncon 01-10-2025 TSH Qn 0.015 m[IU]/L Low 0.270-4.200 [facility] Comment on above: Order Comment: Speci men Type: BLOOD SPECIMEN Ordering Facility: [facility] Address: [address] [place] [address] Performed By: #### 2 4321-2, , 3 #### [facility] CLIA [id number] 1 [place] [address] [place] Valproate SerPl-mCncon 01-10 Valproate [Mass/Vol] ug/mL Low 50.0-100.0 [facility] Comment on above: Order Comment: Speci men Type: BLOOD SPECIMEN Ordering Facility: [facility] Address: [address] [place] [address] Result Comment: Refe rence ranges and high/low indicator flags are provided as general guidelines only. The treating physician must determine appropriate target levels/dosing based on the specific clinical situation. Performed By: #### 2 4321-2, , 3015-3 #### [facility] CLIA [id number] 1 [place] [address] [place] levETIRAcetam SerPl-mCncon 0 01-10-2025 levETIRAcetam [Mass/Vol] 12.7 ug/mL Normal 12.0-46.0 [facility] Comment on above: Order Comment: Speci men Type: BLOOD SPECIMEN Ordering Facility: [facility] Address: [address] [place] [address] Result Comment: This test is not suitable [...] and its performance characteristics determined by the [facility] Department of Pathology and Laboratory Medicine. It has not been cleared or approved by the FDA. The [facility] Department of Pathology and Laboratory Medicine is regulated under CLIA as qualified to perform high-complexity testing. This test is used for clinical purposes. It should not be regarded as investigational or for research. Performed By: #### 3 0471-7 #### [facility] CLIA [id number] [address] [place] [address] [place] ALLIED HEALTHon 01-09-2025 ALLIED HEALTH HNO ID: [id number] Author: ELMER PEGUERO RT(R) Service: Radiology Author [...] PATIENT PRESENTS WITH AN IMPLANTABLE OR ATTACHED ENVIRONMENTAL COMMUNICATIONS SPECIALIST: No RADIOLOGY DEPARTMENT: CT; Exam(s) Completed: Brain PERIPHERAL IV DATA: Not applicable SIGNED BY: RT Toña(R) January 09, 2025 7:55 PM Normal [facility] CBC W Auto Differential pane l (Bld)on 01-09-2025 Basophils (Bld) [#/Vol] 0.07 10*3/uL Normal <0.11 [facility] Comment on above: Order Comment: Speci men Type: BLOOD SPECIMEN Ordering Facility: [facility] Address: [address] [place] [address] Performed By: #### 3 0471-7 #### [facility] CLIA [id number] [address] [place] [address] [place] Basophils/100 WBC (Bld) 0.7 % Normal [facility] Comment on above: Order Comment: Speci men Type: BLOOD SPECIMEN Ordering Facility: [facility] Address: [address] [place] [address] Performed By: #### 3 0471-7 #### [facility] CLIA [id number] [address] [place] [address] [place] Differential cell count method Nom (Bld) Auto Normal [facility] Comment on above: Order Comment: Speci men Type: BLOOD SPECIMEN Ordering Facility: [facility] Address: [address] [place] [address] Performed By: #### 3 0471-7 #### [facility] CLIA [id number] [address] [place] [address] [place] Eosinophils (Bld) [#/Vol] 0.09 10*3/uL Normal <0.46 [facility] Comment on above: Order Comment: Speci men Type: BLOOD SPECIMEN Ordering Facility: [facility] Address: [address] [place] [address] Performed By: #### 3 0471-7 #### [facility] CLIA [id number] [address] [place] [address] [place] Eosinophils/100 WBC (Bld) 0.9 % Normal [facility] Comment on above: Order Comment: Speci men Type: BLOOD SPECIMEN Ordering Facility: [facility] Address: [address] [place] [address] Performed By: #### 3 0471-7 #### [facility] CLIA [id number] [address] [place] [address] [place] Erythrocyte distribution width (RBC) [Ratio] 13.0 % Normal 11.5-15.0 [facility] Comment on above: Order Comment: Speci men Type: BLOOD SPECIMEN Ordering Facility: [facility] Address: [address] [place] [address] Performed By: #### 3 0471-7 #### [facility] CLIA [id number] [address] [place] [address] [place] Hematocrit (Bld) [Volume fraction] 36.8 % Normal 36.0-46.0 [facility] Comment on above: Order Comment: Speci men Type: BLOOD SPECIMEN Ordering Facility: [facility] Address: [address] [place] [address] Performed By: #### 3 0471-7 #### [facility] CLIA [id number] [address] [place] [address] [place] Hemoglobin (Bld) [Mass/Vol] 11.9 g/dL Normal 11.5-15.5 [facility] Comment on above: Order Comment: Speci men Type: BLOOD SPECIMEN Ordering Facility: [facility] Address: [address] [place] [address] Performed By: #### 3 0471-7 #### [facility] CLIA [id number] [address] [place] [address] [place] Immature granulocytes (Bld) [#/Vol] 0.08 10*3/uL Normal <0.10 [facility] Comment on above: Order Comment: Speci men Type: BLOOD SPECIMEN Ordering Facility: [facility] Address: [address] [place] [address] Performed By: #### 3 0471-7 #### [facility] CLIA [id number] [address] [place] [address] [place] Immature granulocytes/100 WBC (Bld) 0.8 % Normal [facility] Comment on above: Order Comment: Speci men Type: BLOOD SPECIMEN Ordering Facility: [facility] Address: [address] [place] [address] Performed By: #### 3 0471-7 #### [facility] CLIA [id number] [address] [place] [address] [place] Lymphocytes (Bld) [#/Vol] 1.96 10*3/uL Normal 1.00-4.00 [facility] Comment on above: Order Comment: Speci men Type: BLOOD SPECIMEN Ordering Facility: [facility] Address: [address] [place] [address] Performed By: #### 3 0471-7 #### [facility] CLIA [id number] [address] [place] [address] [place] Lymphocytes/100 WBC (Bld) 18.8 % Normal [facility] Comment on above: Order Comment: Speci men Type: BLOOD SPECIMEN Ordering Facility: [facility] Address: [address] [place] [address] Performed By: #### 3 0471-7 #### [facility] CLIA [id number] [address] [place] [address] [place] MCH (RBC) [Entitic mass] 32.6 pg Normal 26.0-34.0 [facility] Comment on above: Order Comment: Speci men Type: BLOOD SPECIMEN Ordering Facility: [facility] Address: [address] [place] [address] Performed By: #### 3 0471-7 #### [facility] CLIA [id number] [address] [place] [address] [place] MCHC (RBC) [Mass/Vol] 32.3 g/dL Normal 30.5-36.0 [facility] Comment on above: Order Comment: Speci men Type: BLOOD SPECIMEN Ordering Facility: [facility] Address: [address] [place] [address] Performed By: #### 3 0471-7 #### [facility] CLIA [id number] [address] [place] [address] [place] MCV (RBC) [Entitic vol] 100.8 fL High 80.0-100.0 [facility] Comment on above: Order Comment: Speci men Type: BLOOD SPECIMEN Ordering Facility: [facility] Address: [address] [place] [address] Performed By: #### 3 0471-7 #### [facility] CLIA [id number] [address] [place] [address] [place] Monocytes (Bld) [#/Vol] 0.89 10*3/uL High <0.87 [facility] Comment on above: Order Comment: Speci men Type: BLOOD SPECIMEN Ordering Facility: [facility] Address: [address] [place] [address] Performed By: #### 3 0471-7 #### [facility] CLIA [id number] [address] [place] [address] [place] Monocytes/100 WBC (Bld) 8.5 % Normal [facility] Comment on above: Order Comment: Speci men Type: BLOOD SPECIMEN Ordering Facility: [facility] Address: [address] [place] [address] Performed By: #### 3 0471-7 #### [facility] CLIA [id number] [address] [place] [address] [place] Neutrophils (Bld) [#/Vol] 7.35 10*3/uL Normal 1.45-7.50 [facility] Comment on above: Order Comment: Speci men Type: BLOOD SPECIMEN Ordering Facility: [facility] Address: [address] [place] [address] Performed By: #### 3 0471-7 #### [facility] CLIA [id number] [address] [place] [address] [place] Neutrophils/100 WBC (Bld) 70.3 % Normal [facility] Comment on above: Order Comment: Speci men Type: BLOOD SPECIMEN Ordering Facility: [facility] Address: [address] [place] [address] Performed By: #### 3 0471-7 #### [facility] CLIA [id number] [address] [place] [address] [place] Nucleated RBC (Bld) [#/Vol] 10*3/uL Normal <0.01 [facility] Comment on above: Order Comment: Speci men Type: BLOOD SPECIMEN Ordering Facility: [facility] Address: [address] [place] [address] Performed By: #### 3 0471-7 #### [facility] CLIA [id number] [address] [place] [address] [place] Nucleated RBC/100 WBC (Bld) [Ratio] 0.0 /100 WBC Normal [facility] Comment on above: Order Comment: Speci men Type: BLOOD SPECIMEN Ordering Facility: [facility] Address: [address] [place] [address] Performed By: #### 3 0471-7 #### [facility] CLIA [id number] [address] [place] [address] [place] Platelet mean volume (Bld) [Entitic vol] 8.5 fL Low 9.0-12.7 [facility] Comment on above: Order Comment: Speci men Type: BLOOD SPECIMEN Ordering Facility: [facility] Address: [address] [place] [address] Performed By: #### 3 0471-7 #### [facility] CLIA [id number] [address] [place] [address] [place] Platelets (Bld) [#/Vol] 223 10*3/uL Normal 150-400 [facility] Comment on above: Order Comment: Speci men Type: BLOOD SPECIMEN Ordering Facility: [facility] Address: [address] [place] [address] Performed By: #### 3 0471-7 #### [facility] CLIA [id number] [address] [place] [address] [place] RBC (Bld) [#/Vol] 3.65 10*6/uL Low 3.90-5.20 [facility] Comment on above: Order Comment: Speci men Type: BLOOD SPECIMEN Ordering Facility: [facility] Address: [address] [place] [address] Performed By: #### 3 0471-7 #### [facility] CLIA [id number] [address] [place] [address] [place] WBC (Bld) [#/Vol] 10.44 10*3/uL Normal 3.70-11.00 [facility] Comment on above: Order Comment: Speci men Type: BLOOD SPECIMEN Ordering Facility: [facility] Address: [address] [place] [address] Performed By: #### 3 0471-7 #### [facility] CLIA [id number] [address] [place] [address] BRAIN WO IVCONon 01-10-20 CT BRAIN WO IVCON * * *Final Report* * * DATE OF EXAM: Jan 09 2025 7:58PM [facility] 0504 - CT BRAIN WO [...] changes without evidence for acute intracranial abnormality. Automatic Screwmaker: PSCJohnnie Transcribe Date/Time: Jan 09 2025 7:59P Dictated by : HAMILTON LERMA MD This examination was interpreted and the report reviewed and electronically signed by: HAMILTON LERMA MD on Jan 09 2025 8:01PM EST [id number] Normal [facility] Comprehensive metabolic 2000 panelon 01-09-2025 Albumin [Mass/Vol] 3.1 g/dL Low 3.9-4.9 [facility] Comment on above: Order Comment: Speci men Type: BLOOD SPECIMEN Ordering Facility: [facility] Address: [address] [id number] Performed By: #### 2 4321-2, , 3 #### [facility] CLIA [id number] [address] STATES OF [facility] ALP [Catalytic activity/Vol] 66 U/L Normal 34-123 [facility] Comment on above: Order Comment: Speci men Type: BLOOD SPECIMEN Ordering Facility: [facility] Address: [facility] [place] [address] Performed By: #### 2 4321-2, , 3 #### [facility] CLIA [id number] [address] [place] ALT With P-5'-P [Catalytic activity/Vol] 12 U/L Normal 7-38 [facility] Comment on above: Order Comment: Speci men Type: BLOOD SPECIMEN Ordering Facility: [facility] Address: [address] [place] [address] Performed By: #### 2 4321-2, , 3 #### [facility] CLIA [id number] [address] STATES [place] Anion gap [Moles/Vol] 12 mmol/L Normal 8-15 [facility] Comment on above: Order Comment: Speci men Type: BLOOD SPECIMEN Ordering Facility: [facility] Address: [address] [place] [address] Performed By: #### 2 4321-2, , 3 #### [facility] CLIA [id number] 1 [place] [address] [place] AST With P-5'-P [Catalytic activity/Vol] 22 U/L Normal 13-35 [facility] Comment on above: Order Comment: Speci men Type: BLOOD SPECIMEN Ordering Facility: [facility] Address: [address] [place] [address] Performed By: #### 2 4321-2, , 3 #### [facility] CLIA [id number] [address] STATES [place] Bilirubin [Mass/Vol] mg/dL Low 0.2-1.3 [facility] Comment on above: Order Comment: Speci men Type: BLOOD SPECIMEN Ordering Facility: [facility] Address: [address] [place] [address] Performed By: #### 2 4321-2, , 3 #### [facility] CLIA [id number] [address] STATES [place] Calcium [Mass/Vol] 9.0 mg/dL Normal 8.5-10.2 [facility] Comment on above: Order Comment: Speci men Type: BLOOD SPECIMEN Ordering Facility: [facility] Address: [address] [place] [address] Performed By: #### 2 4321-2, , 3015-3 #### [facility] CLIA [id number] 1 [place] [address] [place] Chloride [Moles/Vol] 108 mmol/L High 98-107 [facility] Comment on above: Order Comment: Speci men Type: BLOOD SPECIMEN Ordering Facility: [facility] Address: [address] [place] [address] Performed By: #### 2 4321-2, , 3 #### [facility] CLIA [id number] 1 [place] [address] [place] CO2 [Moles/Vol] 21 mmol/L Low 22-30 [facility] Comment on above: Order Comment: Speci men Type: BLOOD SPECIMEN Ordering Facility: [facility] Address: [address] [place] [address] Performed By: #### 2 4321-2, , 3 #### [facility] CLIA [id number] [address] STATES OF [facility] Creatinine [Mass/Vol] 0.40 mg/dL Low 0.58-0.96 [facility] Comment on above: Order Comment: Speci men Type: BLOOD SPECIMEN Ordering Facility: [facility] Address: [address] [place] [address] Performed By: #### 2 4321-2, , 3 #### [facility] CLIA [id number] [address] Creatinine and Glomerular filtration rate.predicted panel (S/P/Bld) 105 mL/min/1.73m??? Normal >=60 [facility] Comment on above: Order Comment: Speci men Type: BLOOD SPECIMEN Ordering Facility: [facility] Address: [address] [place] [address] Result Comment: Cecy mated Glomerular Filtration Rate [...] By: #### 2 4321-2, , 3015-12 #### [facility] CLIA [id number] 1 [place] [address] [place] Glucose [Mass/Vol] 96 mg/dL Normal 74-99 [facility] Comment on above: Order Comment: Vicky montilla Type: BLOOD SPECIMEN Ordering Facility: [facility] Address: [address] [place] [address] Result Comment: The [place] [employer] (ADA) provides guidance for cutoff [...] Standards of Medical Care in Diabetes 2016, [place] [employer]. Diabetes Care. 2016.39(Suppl 1). Performed By: #### 2 4321-2, , 3015-12 #### [facility] CLIA [id number] 1 [place] [address] [place] Potassium [Moles/Vol] 4.2 mmol/L Normal 3.7-5.1 [facility] Comment on above: Order Comment: Vicky montilla Type: BLOOD SPECIMEN Ordering Facility: [facility] Address: [address] [place], [place] [address] Performed By: #### 2 4321-2, , 3015-12 #### [facility] CLIA [id number] 1 [place] [address] [place] Protein [Mass/Vol] 5.8 g/dL Low 6.3-8.0 [facility] Comment on above: Order Comment: Speci men Type: BLOOD SPECIMEN Ordering Facility: [facility] Address: [address] [place] [address] Performed By: #### 2 4321-2, , 3 #### [facility] CLIA [id number] [address] Sodium [Moles/Vol] 141 mmol/L Normal 136-144 [facility] Comment on above: Order Comment: Speci men Type: BLOOD SPECIMEN Ordering Facility: [facility] Address: [address] [place] [address] Performed By: #### 2 4321-2, , 3 #### [facility] CLIA [id number] [address] OF [facility] Urea nitrogen [Mass/Vol] 25 mg/dL High 7-21 [facility] Comment on above: Order Comment: Speci men Type: BLOOD SPECIMEN Ordering Facility: [facility] Address: [address] [place] [address] Performed By: #### 2 4321-2, , 3 #### [facility] CLIA [id number] [address] ED NOTEon 01-09-2025 ED NOTE HNO ID: [id number] Author: CHASIDY BOUDREAUX RN Service: Emergency Medicine Author Type: Registered Nurse Type: ED Notes Filed: 01/09/2025 23:01 Note Text: Jose martínez updated on plan of care AND bed assignment Normal [facility] ED NOTE HNO ID: [id number] Author: CHASIDY BOUDREAUX RN Service: Emergency Medicine Author Type: Registered Nurse Type: ED Notes Filed: 01/09/2025 19:28 Note Text: Ct called - message left. Normal [facility] ED NOTE HNO ID: [id number] Author: JOHN BLANCO RN Service: ? Author Type: Registered Nurse Type: ED Notes Filed: 01/09/2025 16:23 Note Text: MD Chaney notified of automatic BP of 70s/40s and manual of 98/62 Normal [facility] ED NOTE HNO ID: [id number] Author: PAMELA BALLESTEROS Medic Service: ? 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 [employer] Type: ED Notes Filed: 01/09/2025 12:29 Note Text: Bed: 43-ED Expected date: Expected time: Means of arrival: Comments: [place] 74yo AMS 10d Normal [facility] ED PROGRESS NOTE (PROVIDER)o n 01-09-2025 ED PROGRESS NOTE (PROVIDER) HNO ID: [id number] Author: CHRIS KIRKPATRICK MD Service: Emergency Medicine [...] SINUS RHYTHM Confirmed by PINO DONALDSON MD ([id number]) on 01/09/2025 4:36:11 PM EKG Impression NORMAL SINUS RHYTHM LOW VOLTAGE QRS BORDERLINE ECG WHEN COMPARED WITH ECG OF 14-Dec-2024 13:46, NO SIGNIFICANT CHANGE WAS FOUND Confirmed by MENDOZA CALI, PINO ([id number]) on 01/09/2025 2:57:29 PM Medical Decision Making SIGNATURE: Chris Kirkpatrick MD PATIENT NAME: Elba Diaz DATE: January 09, 2025 TIME: 5:32 PM PAGER/CONTACT #: - Normal [facility] ED PROV NOTEon 01-09-2025 ED PROV NOTE HNO ID: [id number] Author: GUTIERREZ SCHULTZ MD Service: Emergency Medicine Author Type: Physician Type: ED Provider Notes Filed: 03/14/2025 12:05 Note Text: ED Provider Note Patient Name: Elba Diaz : 1950 SERVICE DATE: 01/09/25 History Patient presents with: Altered Level Of Consciousness: Pt arrived via [place] [facility] from [facility] [place] for c/o pt not acting right. Pt is awake and alert x3 with clear speech. Pt has hx CVA with left sided paralysis. Pt has chronic right knee pain. Patient presenting from [facility] in [place], with complaints of altered mental status. 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 [...] leg agai (more content not included)... Normal [facility] EKGon 01-09-2025 Electrocardiogram Ventricular Rate : 8 6 BPM QRS Duration : 54 ms Q-T Interval : 360 ms QTC Calculation(Bazett) : 430 ms Calculated R [place] : -16 degrees Calculated T [place] : 33 degrees ACCELERATED JUNCTIONAL RHYTHM NONSPECIFIC ST AND T WAVE ABNORMALITY ABNORMAL ECG WHEN COMPARED WITH ECG OF 09-Jan-2025 14:39, JUNCTIONAL RHYTHM HAS REPLACED SINUS RHYTHM Confirmed by PINO DONALDSON MD ([id number]) on 01/09/2025 4:36:11 PM NAME : ELBA DIAZ PID : [id number] : 1950 Gender : Female Race : ORD : Procedure Date : Jan 09 2025 16:24:24 Edit Date : Jan 09 2025 16:36:15 Diagnosis: ACCELERATED JUNCTIONAL RHYTHM NONSPECIFIC ST AND T WAVE ABNORMALITY ABNORMAL ECG WHEN COMPARED WITH ECG OF 09-Jan-2025 14:39, JUNCTIONAL RHYTHM HAS REPLACED SINUS RHYTHM Confirmed by PINO DONALDSON MD ([id number]) on 01/09/2025 4:36:11 PM Test Reason : Location : 4 : [facility] Overread By : PINO DONALDSON MD Edited By : PINO DONALDSON MD Referred By : , Acquired by : COLE PATTON Normal [facility] Electrocardiogram Ventricular Rate : 9 0 BPM Atrial Rate : 90 BPM P-R Interval : 120 ms QRS Duration : 64 ms Q-T Interval : 364 ms QTC Calculation(Bazett) : 445 ms Calculated P [place] : 22 degrees Calculated R [place] : -11 degrees Calculated T [place] : 36 degrees NORMAL SINUS RHYTHM LOW VOLTAGE QRS BORDERLINE ECG WHEN COMPARED WITH ECG OF 14-Dec-2024 13:46, NO SIGNIFICANT CHANGE WAS FOUND Confirmed by PINO DONALDSON MD ([id number]) on 01/09/2025 2:57:29 PM NAME : ELBA DIAZ PID : [id number] : 1950 Gender : Female Race : ORD : Procedure Date : Jan 09 2025 14:39:21 Edit Date : Jan 09 2025 14:57:32 Diagnosis: NORMAL SINUS RHYTHM LOW VOLTAGE QRS BORDERLINE ECG WHEN COMPARED WITH ECG OF 14-Dec-2024 13:46, NO SIGNIFICANT CHANGE WAS FOUND Confirmed by PINO DONALDSON MD ([id number]) on 01/09/2025 2:57:29 PM Test Reason : Location : : [facility] Overread By : PINO DONALDSON MD Edited By : PINO DONALDSON MD Referred By : , Acquired by : KEV GUZMAN [facility] HIGH SENSITIVITY TROPONIN To n 01-09-2025 Troponin T.cardiac High sensitivity method [Mass/Vol] 21 ng/L High <12 [facility] Comment on above: Order Comment: Speci men Type: BLOOD SPECIMEN Ordering Facility: [facility] Address: [address] [place] [address] Performed By: #### 3 0471-7 #### [facility] CLIA [id number] [address] [place] [address] [place] Troponin T.cardiac High sensitivity method [Mass/Vol] 21 ng/L High <12 [facility] Comment on above: Order Comment: Speci men Type: BLOOD SPECIMEN Ordering Facility: [facility] Address: [address] [place] [address] Performed By: #### 2 4321-2, 90329-4, 3016-3 #### [facility] CLIA [id number] 1 [place] [address] [place] HISTORY PHYSICALon HISTORY PHYSICAL HNO ID: [id number] Author: ELIA CARRENO II, MD Service: Hospital Medicine Author Type: Physician Type: H&P Filed: 01/10/2025 02:59 Note Text: DEPARTMENT OF HOSPITAL MEDICINE HISTORY AND PHYSICAL EXAM SERVICE DATE: 01/09/2025 SERVICE TIME: 9:44 PM Primary Care Physician: No primary care provider on file. NIGHT AND WEEKEND COVERAGE: From 7am - 7pm, please call Sound attending After 7pm, please call cross cover pager #[phone] ==== ASSESSMENT AND PLAN: 1) AMS - [...] protein: Neg (more content not included)... Normal [facility] Magnesium SerPl-mCncon 01-09 Magnesium [Mass/Vol] 1.8 mg/dL Normal 1.7-2.3 [facility] Comment on above: Order Comment: Speci men Type: BLOOD SPECIMEN Ordering Facility: [facility] Address: [address] [place] [address] Performed By: #### 2 4321-2, , 3 #### [facility] CLIA [id number] [address] OF [place] Urinalysis complete panel (U )on 01-09-2025 Bilirubin Ql (U) Negative Normal Negative [facility] Comment on above: Order Comment: Speci men Type: BLOOD SPECIMEN Ordering Facility: [facility] Address: [facility] [place] [address] Performed By: #### 2 4321-2, , 3015-12 #### [facility] CLIA [id number] [address] OF [place] Clarity (Unsp spec) Clear Normal Clear [facility] Comment on above: Order Comment: Speci men Type: BLOOD SPECIMEN Ordering Facility: [facility] Address: [address] [place] [address] Performed By: #### 2 1-2, , 3 #### [facility] CLIA [id number] [address] OF [facility] Color (U) Light Yellow Normal yellow [facility] Comment on above: Order Comment: Speci men Type: BLOOD SPECIMEN Ordering Facility: [facility] Address: [address] [place] [address] Performed By: #### 2 4321-2, , 3 #### [facility] CLIA [id number] [address] Epithelial cells LM.HPF (Urine sed) [#/Area] Few Normal [facility] Comment on above: Order Comment: Speci men Type: BLOOD SPECIMEN Ordering Facility: [facility] Address: [address] [place] [address] Performed By: #### 2 4321-2, , 3015-3 #### [facility] CLIA [id number] [address] OF [place] Glucose Test strip (U) [Mass/Vol] Negative Normal Trace, Negative [facility] Comment on above: Order Comment: Speci men Type: BLOOD SPECIMEN Ordering Facility: [facility] Address: [address] [place] [address] Performed By: #### 2 4321-2, , 3015-3 #### [facility] CLIA [id number] [address] [place] Hemoglobin Ql (U) Negative Normal Negative, Trace [facility] Comment on above: Order Comment: Speci men Type: BLOOD SPECIMEN Ordering Facility: [facility] Address: [address] [place] [address] Performed By: #### 2 4321-2, , 3015-3 #### [facility] CLIA [id number] [address] OF [place] Ketones Ql (U) Negative Normal Negative, Trace [facility] Comment on above: Order Comment: Speci men Type: BLOOD SPECIMEN Ordering Facility: [facility] Address: [address] [place] [address] Performed By: #### 2 4321-2, , 3 #### [facility] CLIA [id number] [address] OF [place] Leukocyte esterase Test strip Ql (U) 25 Chong/uL Normal Negative, 25 Chong/uL [facility] Comment on above: Order Comment: Speci men Type: BLOOD SPECIMEN Ordering Facility: [facility] Address: [address] [place] [address] Performed By: #### 2 4321-2, , 3015-3 #### [facility] CLIA [id number] [address] OF [place] Nitrite Ql (U) Negative Normal Negative [facility] Comment on above: Order Comment: Speci men Type: BLOOD SPECIMEN Ordering Facility: [facility] Address: [address] [place] [address] Performed By: #### 2 4321-2, , 3 #### [facility] CLIA [id number] [address] [place] pH (U) 6.5 [pH] Normal 5.0-8.0 [facility] Comment on above: Order Comment: Speci men Type: BLOOD SPECIMEN Ordering Facility: [facility] Address: [facility] [place] [address] Performed By: #### 2 4321-2, , 3015-12 #### [facility] CLIA [id number] [address] [place] Protein (U) [Mass/Vol] Negative Normal Trace , Negative [facility] Comment on above: Order Comment: Speci men Type: BLOOD SPECIMEN Ordering Facility: [facility] Address: [address] [place] [address] Performed By: #### 2 1-2, , 3 #### [facility] CLIA [id number] [address] [place] RBC LM.HPF (Urine sed) [#/Area] 0-3 /HPF Normal 0-3 /HPF [facility] Comment on above: Order Comment: Speci men Type: BLOOD SPECIMEN Ordering Facility: [facility] Address: [address] [place] [address] Performed By: #### 2 4321-2, , 3 #### [facility] CLIA [id number] [address] [place] Specific gravity (U) [Rel density] 1.027 Normal 1.005-1.030 [facility] Comment on above: Order Comment: Speci men Type: BLOOD SPECIMEN Ordering Facility: [facility] Address: [address] [place] [address] Performed By: #### 2 4321-2, , 3015-3 #### [facility] CLIA [id number] [address] [place] Urobilinogen Ql (U) Normal Normal Normal [facility] Comment on above: Order Comment: Speci men Type: BLOOD SPECIMEN Ordering Facility: [facility] Address: [address] [place], [place] [address] Performed By: #### 2 4321-2, 82066-5, 6-3 #### [facility] CLIA [id number] 1 [place] [address] [place] WBC LM.HPF (Urine sed) [#/Area] 0-5 /HPF Normal 0-5 /HPF [facility] Comment on above: Order Comment: Speci men Type: BLOOD SPECIMEN Ordering Facility: [facility] Address: [address] [place] [address] Performed By: #### 2 4321-2, 58193-4, 6-3 #### [facility] CLIA [id number] [address] STATES [place] XR CHEST 1V [...] Other: . IMPRESSION: No acute radiographic abnormality. Automatic Screwmaker: PSCB Transcribe Date/Time: Jan 09 2025 2:51P Dictated by : HAMILTON LERMA MD This examination was interpreted and the report reviewed and electronically signed by: HAMILTON LERMA MD on Jan 09 2025 2:52PM EST [id number] Normal [facility] 36on 01-01-2025 36 Pt is added on the w ait list Normal [facility] 36 Name of caller: Elmer bermeo Contact phone number: [phone] Relationship to Patient: [facility] Provider: New Patient/Dr. Oswald Practice: Neurology Chief [...] business hours to return their call: N/A [facility] Absolute lymphocyte countOrd ered By: Robb Barnes on 12-31-2024 Lymphocytes Auto (Unsp spec) [#/Vol] 1.49 10*3/uL 0.83-4.51 [facility] Absolute neutrophil countOrd ered By: Robb Barnes on 12-31-2024 Neutrophils (Bld) [#/Vol] 5.3 10*3/uL 2.0-7.7 [facility] Automated lymphocyte count a s percentage of total leukocytesOrdered By: Robb Barnes on 12-31-2024 Lymphocytes/100 WBC Auto (Unsp spec) 19.3 % 19-41 [facility] Basophil percentageOrdered B y: Robb Barnes on 12-31-2024 Basophils/100 WBC (Bld) 0.4 % 0-1 [facility] Eosinophil percentageOrdered By: Robb Barnes on 12-31-2024 Eosinophils/100 WBC (Bld) 1.9 % 0-5 [facility] Erythrocyte distribution wid th (RBC) [Ratio]Ordered By: Robb Barnes on 12-31-2024 Erythrocyte distribution width (RBC) [Entitic vol] 47.8 fL High 35.1-43.9 [facility] Erythrocyte distribution wid th ratioOrdered By: Robb Barnes on 12-31-2024 Erythrocyte distribution width (RBC) [Ratio] 13.1 % 11.6-14.6 [facility] Erythrocyte distribution wid th standard deviationOrdered By: Robb Barnes on 12-31-2024 Erythrocyte distribution width (RBC) [Ratio] 47.8 fl High 35.1-43.9 [facility] Hematocrit Auto (Bld) [Volum e fraction]Ordered By: Robb Barnes on 12-31-2024 Hematocrit (Bld) [Volume fraction] 36.2 % Low 37-47 [facility] Hemoglobin measurementOrdere d By: Robb Barnes on 12-31-2024 Hemoglobin (Bld) [Mass/Vol] 11.7 g/dL Low 12.0-15.0 [facility] Immature granulocytes/100 WB C Auto (Bld)Ordered By: Robb Barnes on 12-31-2024 Immature granulocytes/100 WBC (Bld) 0.400 % 0.0-0.9 [facility] Comment on above: IG% - Immature Granu locytes (promyelocytes, myelocytes and metamyelocytes) > 1% indicates that a LEFT SHIFT is Present. Lymphocytes Auto (Unsp spec) [#/Vol]Ordered By: Robb Barnes on 12-31-2024 Lymphocytes (Bld) [#/Vol] 1.49 10*3/uL 0.83-4.51 [facility] Lymphocytes/100 WBC Auto (Un sp spec)Ordered By: Robb Barnes on 12-31-2024 Lymphocytes/100 WBC (Bld) 19.3 % 19-41 [facility] MCV (mean corpuscular volume ) determinationOrdered By: Robb Barnes on 12-31-2024 MCV (RBC) [Entitic vol] 100.0 fL High 81-99 [facility] Mean corpuscular hemoglobin (MCH) determinationOrdered By: Robb Barnes on 12-31-2024 MCH (RBC) [Entitic mass] 32.3 pg High 27.0-32.0 [facility] Mean corpuscular hemoglobin concentration (MCHC) determinationOrdered By: Robb Barnes on 12-31-2024 MCHC (RBC) [Mass/Vol] 32.3 g/dL 32-36 [facility] Mean platelet volume determi nationOrdered By: Robb Barnes on 12-31-2024 Platelet mean volume (Bld) [Entitic vol] 8.8 fL 6.2-12.0 [facility] Monocyte percentageOrdered B y: Robb Barnes on 12-31-2024 Monocytes/100 WBC (Bld) 8.8 % 0-10 [facility] Neutrophil percentageOrdered By: Robb Barnes on 12-31-2024 Neutrophils/100 WBC (Bld) 69.2 % 47-70 [facility] Nucleated red blood cell per centageOrdered By: Robb Barnes on 12-31-2024 Nucleated RBC/100 WBC (Bld) [Ratio] 0 % 0-5 [facility] Platelet countOrdered By: Ramila Barnes on 12-31-2024 Platelets (Bld) [#/Vol] 152 10*3/uL 150-450 [facility] RBC Auto (Bld) [#/Vol]Ordere d By: Robb Barnes on 12-31-2024 RBC (Bld) [#/Vol] 3.62 10*6/uL Low 4.2-5.4 [facility] Serum or plasma valproate me asurement (mass/volume)Ordered By: Robb Barnes on 12-31-2024 Valproate [Mass/Vol] 36 ug/mL Low 50-100 [facility] Comment on above: Valproic Acid concen trations >100 ug/mL are potentially toxic. Valproate [Mass/Vol]Ordered By: Robb Barnes on 12-31-2024 Valproic Acid (Depakene) Level 36 ug/mL Low 50-100 [facility] Comment on above: Valproic Acid concen trations >100 ug/mL are potentially toxic. White blood cell (WBC) count Ordered By: Robb Barnes on 12-31-2024 WBC (Bld) [#/Vol] 7.7 10*3/uL 4.4-11.0 [facility] Bilirubin Test strip Ql (U)O rdered By: Robb Barnes on 12-30-2024 Bilirubin Ql (U) Negative Negative [facility] Glucose Ql (U)Ordered By: Ramila Barnes on 12-30-2024 Urine Glucose (UA) Normal mg/dl Normal [facility] Ketones Test strip Ql (U)Ord ered By: Robb Barnes on 12-30-2024 Ketones Ql (U) 15 mg/dl High Negative [facility] Nitrite Test strip Ql (U)Ord ered By: Robb Barnes on 12-30-2024 Nitrite Ql (U) Positive High Negative [facility] Protein Test strip Ql (U)Ord ered By: Robb Barnes on 12-30-2024 Protein Ql (U) 30 mg/dl High Negative [facility] Urine blood detectionOrdered By: Robb Barnes on 12-30-2024 Urine Occult Blood 10 /ul High Negative [facility] Urine clarityOrdered By: Renan Barnes on 12-30-2024 Clarity (U) Clear Clear [facility] Urine color determinationOrd ered By: Robb Barnes on 12-30-2024 Color (U) Yellow Yellow [facility] Urine cultureOrdered By: Renan Barnes on 12-30-2024 Bacteria identified Cx Nom (U) ESBL Escherichia coli Abnormal [facility] Urine glucose detectionOrder ed By: Robb Barnes on 12-30-2024 Glucose Ql (U) Normal mg/dl Normal [facility] Urine leukocyte esterase det ection by dipstickOrdered By: Robb Barnes on 12-30-2024 Leukocyte esterase Test strip Ql (U) 100 /ul High Negative [facility] Urine pHOrdered By: Robb huerta on 12-30-2024 pH (U) 6.0 [pH] 5.0 - 8.0 [facility] Urine specific gravity measu rementOrdered By: Robb Barnes on 12-30-2024 Specific gravity (U) [Rel density] 1.020 1.002-1.030 [facility] Urine urobilinogen measureme ntOrdered By: Robb Barnes on 12-30-2024 Urobilinogen Ql (U) Normal mg/dl Normal [facility] Urobilinogen Ql (U)Ordered B y: Robb Barnes on 12-30-2024 Urine Urobilinogen Normal mg/dl Normal [facility] Absolute lymphocyte countOrd ered By: [facility] on 12-24-2024 Lymphocytes Auto (Unsp spec) [#/Vol] 1.70 10*3/uL 0.83-4.51 [facility] Absolute neutrophil countOrd ered By: [facility] on 12-24-2024 Neutrophils (Bld) [#/Vol] 4.3 10*3/uL 2.0-7.7 [facility] Anion gap in Serum or Plasma Ordered By: [facility] on 12-24-2024 Anion gap [Moles/Vol] 12 mmol/L 5-15 [facility] Automated lymphocyte count a s percentage of total leukocytesOrdered By: [facility] on 12-24-2024 Lymphocytes/100 WBC Auto (Unsp spec) 24.6 % 19-41 [facility] BUN/creatinine ratioOrdered By: [facility] on 12-24-2024 Urea nitrogen/Creatinine [Mass ratio] 61.9 mg/mg High 10-20 [facility] Basophil percentageOrdered B y: [facility] on 12-24-2024 Basophils/100 WBC (Bld) 0.4 % 0-1 [facility] Bilirubin directOrdered By: [facility] on 12-24-2024 Bilirubin.direct [Mass/Vol] mg/dL 0.00-0.30 [facility] Comment on above: Hemolysis present, R esults could be affected. Bilirubin, totalOrdered By: [facility] on 12-24-2024 Bilirubin [Mass/Vol] 0.17 mg/dL 0.00-1.30 [facility] Bilirubin.direct [Mass/Vol]O rdered By: [facility] on 12-24-2024 Direct Bilirubin < 0.08 mg/dL 0.00-0.30 [facility] Comment on above: Hemolysis present, R esults could be affected. Carbon dioxide, total [Moles /volume] in Central venous bloodOrdered By: [facility] on 12-24-2024 CO2 [Moles/Vol] 20.1 mmol/L Low 21.0-32.0 [facility] Chloride assayOrdered By: [facility] on 12-24-2024 Chloride [Moles/Vol] 105 mmol/L 98-108 [facility] Eosinophil percentageOrdered By: [facility] on 12-24-2024 Eosinophils/100 WBC (Bld) 2.9 % 0-5 [facility] Erythrocyte distribution wid th (RBC) [Ratio]Ordered By: [facility] on 12-24-2024 Erythrocyte distribution width (RBC) [Entitic vol] 44.6 fL High 35.1-43.9 [facility] Erythrocyte distribution wid th ratioOrdered By: [facility] on 12-24-2024 Erythrocyte distribution width (RBC) [Ratio] 12.3 % 11.6-14.6 [facility] Erythrocyte distribution wid th standard deviationOrdered By: [facility] on 12-24-2024 Erythrocyte distribution width (RBC) [Ratio] 44.6 fl High 35.1-43.9 [facility] GFR/1.73 sq M.predicted juwan g non-blacks MDRD (S/P/Bld) [Vol rate/Area]Ordered By: [facility] on 12-24-2024 Estimated GFR (MDRD) Non-Af Amer [address] >60 [facility] Comment on above: mL/min/1.73m2 CKD-EP I Creatinine Equation (2020) Glomerular filtration rate ( GFR) estimation/1.73 sq m using serum, plasma, or whole bOrdered By: [facility] on 12-24-2024 GFR/1.73 sq M.predicted among non-blacks MDRD (S/P/Bld) [Vol rate/Area] 109 mL/min/{1.73_m2} >60 [facility] Comment on above: mL/min/1.73m2 CKD-EP I Creatinine Equation (2020) Hematocrit Auto (Bld) [Volum e fraction]Ordered By: [facility] on 12-24-2024 Hematocrit (Bld) [Volume fraction] 36.0 % Low 37-47 [facility] Hemoglobin measurementOrdere d By: [facility] on 12-24-2024 Hemoglobin (Bld) [Mass/Vol] 12.1 g/dL 12.0-15.0 [facility] Immature granulocytes/100 WB C Auto (Bld)Ordered By: [facility] on 12-24-2024 Immature granulocytes/100 WBC (Bld) 0.600 % 0.0-0.9 [facility] Comment on above: IG% - Immature Granu locytes (promyelocytes, myelocytes and metamyelocytes) > 1% indicates that a LEFT SHIFT is Present. Laboratory - Chemistry and C hemistry - challengeOrdered By: [facility] on 12-24-2024 AST [Catalytic activity/Vol] 31 U/L <32 [facility] Comment on above: Hemolysis present, R esults could be affected. Lymphocytes Auto (Unsp spec) [#/Vol]Ordered By: [facility] on 12-24-2024 Lymphocytes (Bld) [#/Vol] 1.70 10*3/uL 0.83-4.51 [facility] Lymphocytes/100 WBC Auto (Un sp spec)Ordered By: [facility] on 12-24-2024 Lymphocytes/100 WBC (Bld) 24.6 % 19-41 [facility] MCV (mean corpuscular volume ) determinationOrdered By: [facility] on 12-24-2024 MCV (RBC) [Entitic vol] 98.6 fL 81-99 [facility] Mean corpuscular hemoglobin (MCH) determinationOrdered By: [facility] on 12-24-2024 MCH (RBC) [Entitic mass] 33.2 pg High 27.0-32.0 [facility] Mean corpuscular hemoglobin concentration (MCHC) determinationOrdered By: [facility] on 12-24-2024 MCHC (RBC) [Mass/Vol] 33.6 g/dL 32-36 [facility] Mean platelet volume determi nationOrdered By: [facility] on 12-24-2024 Platelet mean volume (Bld) [Entitic vol] 8.8 fL 6.2-12.0 [facility] Monocyte percentageOrdered B y: [facility] on 12-24-2024 Monocytes/100 WBC (Bld) 8.7 % 0-10 [facility] Neutrophil percentageOrdered By: [facility] on 12-24-2024 Neutrophils/100 WBC (Bld) 62.8 % 47-70 [facility] Nucleated red blood cell per centageOrdered By: [facility] on 12-24-2024 Nucleated RBC/100 WBC (Bld) [Ratio] 0 % 0-5 [facility] Platelet countOrdered By: [facility] on 12-24-2024 Platelets (Bld) [#/Vol] 172 10*3/uL 150-450 [facility] Potassium (Unsp spec) [Mass/ Vol]Ordered By: [facility] on 12-24-2024 Potassium [Moles/Vol] 4.4 mmol/L 3.3-5.1 [facility] Comment on above: Hemolysis present, R esults could be affected. Potassium measurement (mass/ volume)Ordered By: [facility] on 12-24-2024 Potassium (Unsp spec) [Mass/Vol] 4.4 mmol/L 3.3-5.1 [facility] Comment on above: Hemolysis present, R esults could be affected. RBC Auto (Bld) [#/Vol]Ordere d By: [facility] on 12-24-2024 RBC (Bld) [#/Vol] 3.65 10*6/uL Low 4.2-5.4 [facility] Serum creatinine measurement (mass/volume)Ordered By: [facility] on 12-24-2024 Creatinine [Mass/Vol] 0.33 mg/dL Low 0.70-1.20 [facility] Serum globulin measurementOr dered By: [facility] on 12-24-2024 Globulin (S) [Mass/Vol] 3.1 g/dL 2.2-4.2 [facility] Serum glucose measurement (m ass/volume)Ordered By: [facility] on 12-24-2024 Glucose [Mass/Vol] 72 mg/dL 70-99 [facility] Serum or plasma alanine timmons otransferase (ALT) measurementOrdered By: [facility] on 12-24-2024 ALT [Catalytic activity/Vol] 7 U/L <35 [facility] Serum or plasma albumin claudette urement (mass/volume)Ordered By: [facility] on 12-24-2024 Albumin [Mass/Vol] 2.8 g/dL Low 3.4-4.8 [facility] Serum or plasma alkaline karson sphatase measurementOrdered By: [facility] on 12-24-2024 ALP [Catalytic activity/Vol] 76 U/L 35-104 [facility] Serum or plasma calcium claudette urement (mass/volume)Ordered By: [facility] on 12-24-2024 Calcium [Mass/Vol] 9.0 mg/dL 7.6-11.0 [facility] Serum or plasma urea nitroge n measurement (mass/volume)Ordered By: [facility] on 12-24-2024 Urea nitrogen [Mass/Vol] 21 mg/dL High 4-19 [facility] Sodium levelOrdered By: Alte [facility] on 12-24-2024 Sodium [Moles/Vol] 136 mmol/L 133-145 [facility] Total proteinOrdered By: [facility] on 12-24-2024 Protein [Mass/Vol] 5.9 g/dL 5.9-8.4 [facility] White blood cell (WBC) count Ordered By: [facility] on 12-24-2024 WBC (Bld) [#/Vol] 6.9 10*3/uL 4.4-11.0 [facility] Bilirubin Test strip Ql (U)O rdered By: Robb Barnes on 12-22-2024 Bilirubin Ql (U) Negative Negative [facility] Glucose Ql (U)Ordered By: Ramila Barnes on 12-22-2024 Urine Glucose (UA) Normal mg/dl Normal [facility] Ketones Test strip Ql (U)Ord ered By: Robb Barnes on 12-22-2024 Ketones Ql (U) 15 mg/dl High Negative [facility] Nitrite Test strip Ql (U)Ord ered By: Robb Barnes on 12-22-2024 Nitrite Ql (U) Negative Negative [facility] Protein Test strip Ql (U)Ord ered By: Robb Barnes on 12-22-2024 Protein Ql (U) 30 mg/dl High Negative [facility] Urine blood detectionOrdered By: Robb Barnes on 12-22-2024 Urine Occult Blood Negative Negative [facility] Urine clarityOrdered By: Renan Barnes on 12-22-2024 Clarity (U) Clear Clear [facility] Urine color determinationOrd ered By: Robb Barnes on 12-22-2024 Color (U) Yellow Yellow 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 Urine glucose detectionOrder ed By: Robb Barnes on 12-22-2024 Glucose Ql (U) Normal mg/dl Normal [facility] Urine leukocyte esterase det ection by dipstickOrdered By: Robb Barnes on 12-22-2024 Leukocyte esterase Test strip Ql (U) Negative Negative [facility] Urine pHOrdered By: Robb huerta on 12-22-2024 pH (U) 6.0 [pH] 5.0 - 8.0 [facility] Urine specific gravity measu rementOrdered By: Robb Barnes on 12-22-2024 Specific gravity (U) [Rel density] 1.020 1.002-1.030 [facility] Urine urobilinogen measureme ntOrdered By: Robb Barnes on 12-22-2024 Urobilinogen Ql (U) Normal mg/dl Normal [facility] Urobilinogen Ql (U)Ordered B y: Robb Barnes on 12-22-2024 Urine Urobilinogen Normal mg/dl Normal [facility] CNDSon 12-18-2024 CNDS HNO ID: [id number] Author: DANILO HELMS MD Service: Hospital Medicine [...] Attending Provider: Danilo Helms MD Primary Service: [place] MILI MILLER MY CONDITION AT DISCHARGE: Stable REASON I WAS IN THE HOSPITAL: Change in mental status SUMMARY OF WHAT HAPPENED WHILE I WAS IN THE HOSPITAL: 74-year-old female with a history of cerebrovascular disease and debilitating stroke leaving the patient essentially bedbound. [facility] resides [facility] the [facility]. Admitted to the hospital on account of change in mental status. Suspected to be secondary to urinary tract infection and possibly so. Found to be dehydrated as well. Treated with antibiotics and IV fluids. Mental status has improved. She is essentially back to baseline. Able to return back to [facility]. OTHER PROBLEMS/DIAGNOSIS: Principal Problem: AMS (altered mental [...] No pending results Discharge Disposition Discharge Disposition: Residential For Intermediate Care/Assisted Living Additional Provider to Provider Information: No notes on file Exogenous Class 1 Obesity Treatment Team: Attending Provider: Danilo Helms MD Primary Service: BANG MILLER Transitions of Care Critical Issues: None LABS AND PROCEDURES PENDING AT DISCHARGE: No pending results. FOLLOW-UP APPOINTMENTS ALREADY SCHEDULED WITH A [facility] PROVID[facility]: No future appointments. ALLERGIES [...] (Oral) Resp 18 Ht 157.5 cm (5' 2") Wt 80.1 kg (176 lb 8 oz) [...] 11% Diagnosis Count 28 10% [place] [facility] CARD/HF/PD -8% ED visits (365d) 0 -5% RDW (Max) 12.6 -5% Length of Stay (d) (more content not included)... Normal [facility] Basic metabolic 2000 panelon 12-17-2024 Anion gap [Moles/Vol] 11 mmol/L Normal 8-15 [facility] Comment on above: Order Comment: Vicky montilla Type: BLOOD SPECIMEN Ordering Facility: [facility] Address: [address] [place] [address] Performed By: #### 2 4321-2, , 3 #### [facility] CLIA [id number] [address] [place] [address] [place] Calcium [Mass/Vol] 8.6 mg/dL Normal 8.5-10.2 [facility] Comment on above: Order Comment: Vicky montilla Type: BLOOD SPECIMEN Ordering Facility: [facility] Address: [address] [place] [address] Performed By: #### 2 4321-2, , 3 #### [facility] CLIA [id number] [address] [place] [address] [place] Chloride [Moles/Vol] 109 mmol/L High 98-107 [facility] Comment on above: Order Comment: Speci men Type: BLOOD SPECIMEN Ordering Facility: [facility] Address: [address] [place] [address] Performed By: #### 2 4321-2, , 3015-12 #### [facility] CLIA [id number] [address] [place] CO2 [Moles/Vol] 22 mmol/L Normal 22-30 [facility] Comment on above: Order Comment: Speci men Type: BLOOD SPECIMEN Ordering Facility: [facility] Address: [address] [place] [address] Performed By: #### 2 4321-2, , 3015-12 #### [facility] CLIA [id number] [address] OF [facility] Creatinine [Mass/Vol] 0.42 mg/dL Low 0.58-0.96 [facility] Comment on above: Order Comment: Speci men Type: BLOOD SPECIMEN Ordering Facility: [facility] Address: [address] [place] [address] Performed By: #### 2 4321-2, , 3015-12 #### [facility] CLIA [id number] [address] Creatinine and Glomerular filtration rate.predicted panel (S/P/Bld) 103 mL/min/1.73m??? Normal >=60 [facility] Comment on above: Order Comment: Speci men Type: BLOOD SPECIMEN Ordering Facility: [facility] Address: [address] [place] [address] Result Comment: Cecy mated Glomerular Filtration Rate [...] actual GFR. Performed By: #### 2 4321-2, 54714-03015-12 #### [facility] CLIA [id number] [address] [place] [address] [place] Glucose [Mass/Vol] 102 mg/dL High 74-99 [facility] Comment on above: Order Comment: Vicky montilla Type: BLOOD SPECIMEN Ordering Facility: [facility] Address: [address] [place] [address] Result Comment: The [place] [employer] (ADA) provides guidance for cutoff [...] Standards of Medical Care in Diabetes 2016, [place] [employer]. Diabetes Care. 2016.39(Suppl 1). Performed By: #### 2 4321-2, , 3015-12 #### [facility] CLIA [id number] [address] [place] [address] [place] Potassium [Moles/Vol] 3.9 mmol/L Normal 3.7-5.1 [facility] Comment on above: Order Comment: Vicky montilla Type: BLOOD SPECIMEN Ordering Facility: [facility] Address: [address] [place] [address] Performed By: #### 2 4321-2, , 3 #### [facility] CLIA [id number] [address] [place] [address] [place] Sodium [Moles/Vol] 142 mmol/L Normal 136-144 [facility] Comment on above: Order Comment: Vicky montilla Type: BLOOD SPECIMEN Ordering Facility: [facility] Address: [address] [place], [place] [address] Performed By: #### 2 4321-2, , 3 #### [facility] CLIA [id number] [address] [place] [address] [place] Urea nitrogen [Mass/Vol] 4 mg/dL Low 7-21 [facility] Comment on above: Order Comment: Speci men Type: BLOOD SPECIMEN Ordering Facility: [facility] Address: [address] [place] [address] Performed By: #### 2 4321-2, 00319-2, 3016-3 #### [facility] CLIA [id number] [address] [place] CONSULT PROGon 12-17-2024 CONSULT PROG HNO ID: [id number] Author: TRINITY BOJORQUEZ APRN.WAREHOUSE ADMINISTRATIVE ASSISTANT Service: Wound/Ostomy Author Type: Nurse Practitioner Type: Consult Progress Note Filed: 12/17/2024 12:37 Note Text: WOUND CARE SERVICE CONSULT CLINICAL REHABILITATION AIDE NOTE SERVICE DATE: 12/17/2024 SERVICE TIME: 1020 [...] who is seen today with Shelly Polk, Wound/rabbit dresser, and presented to hospital with complaints of [...] TID PRN sodium chloride 0.65 % 2 [place] [address] [place] EACH NOSTRIL PRN prochlorperazine 10 mg injection (COMPAZINE) 10 mg INTRAVENOUS q 6 H PRN miconazole 2 % 1 application topical powder 1 application TOPICAL BID zinc oxide ointment 20% TOPICAL BID ALLERGIES Allergen Reactions Codeine Other: See Comments nausea Objective PHYSICAL EXAM: BP 136/78 Pulse 88 Temp 36.8 ?C (98.2 ?F) (Oral) Resp 18 Ht 157.5 cm (5' 2") Wt 80.1 kg (176 lb 8 oz) [...] 12/17/2024 10:23 AM Wound Image Site Assessment Winslow;Red;Purple;Bleedin g;Dry Willow-Wound Assessment Purple;Dry Shape kissing pattern [...] 1154 z (more content not included)... Normal [facility] NUTRITIONon 12-17-2024 NUTRITION HNO ID: [id number] Author: EMMANUEL AMIN RD Service: Nutrition Therapy [...] 49.9 kg (110 lb) Dosing Weight Type: [facility] body weight Estimated kilocalorie needs: 3827-6972 Calorie Calculation Method: 25-30 kcals/kg, [facility] Body Weight Estimated protein needs (grams): 50-60 Grams protein determined by: 1.0 - 1.2 g/kg, [facility] body weight Diet Orders (From admission, onward) Start Ordered 12/15/24 0127 DIET REGULAR START NOW 12/15/24 0126 Anthropometrics: Height: 157.5 cm (5' 2") Weight: 80.1 kg (176 lb 8 oz) Usual Weight: 70.8 kg (156 lb 1.4 oz) 2021 Usual Weight Obtained From: Chart Review Body mass index is 32.28 kg/m?. Weight change percentage over time: Gain - patient reports gain since admission to [facility] Weight Change: Weight gain Last Wt 12/15/24 [...] December 17, 2024 TIME: 9:06 AM Normal [facility] THERAPY NTon 12-17-2024 THERAPY NT HNO ID: [id number] Author: DIAN HIDALGO CCC-DIE REPAIRER STAMPING Service: Speech/Swallow Author Type: Speech Language Pathologist Type: Therapy (PT/OT/Speech/Resp) Filed: 12/17/2024 11:57 Note Text: Speech Therapy Speech Evaluation SERVICE DATE: 12/17/2024 SERVICE TIME: 1115 to 1130 ROOM: [place] [address] IMPRESSION Functional without limitations in: Speech, Language, [...] Required Assistance Patient Lives With: Facility Care ([facility]) Assistance Available: 24 Hour Prior Swallowing Function/Diet Textures: Regular Consistency, Thin Liquids IDDSI Level 0 SUBJECTIVE The patient is awake, talking in full logical sentences. THERAPY DIAGNOSIS No Skilled Need TREATMENT INTERVENTIONS Speech Language Eval (72718) Skilled Treatment Time (minutes): 15 $ Speech Language Eval (76220) Billed Units: 1 unit TRAINING AND EDUCATION [...] (e.g., That was yesterday, so today must be...") 1 = correct upon multiple choice or phonemic cueing 0 = incorrect despite cueing, inappropriate response, or unable to respond Stimulus Response/Score [facility] 12/[address] 12/22 Name of Hospital 12/22 Month 12/22 Date 11/24 Year 12/22 [...] Care Developed with: Patient SIGNATURE: Dina Hidalgo CCC-DIE REPAIRER STAMPING PATIENT NAME: Elba Diaz DATE: December 17, 2024 TIME: 11:55 AM Normal [facility] CBC W Auto Differential pane l (Bld)on 12-16-2024 Basophils (Bld) [#/Vol] 10*3/uL Normal <0.11 [facility] Comment on above: Order Comment: Speci men Type: BLOOD SPECIMENOrdering Facility: [facility] Address: [address] [place] [address] Performed By: #### 5 7021-8 ####[facility] [id number] [address] [place] Basophils/100 WBC (Bld) 0.3 % Normal [facility] Comment on above: Order Comment: Speci men Type: BLOOD SPECIMENOrdering Facility: [facility] Address: [address] [place] [address] Performed By: #### 5 7021-8 ####[facility] [id number] [place] [address] [place] Differential cell count method Nom (Bld) Auto Normal [facility] Comment on above: Order Comment: Speci men Type: BLOOD SPECIMENOrdering Facility: [facility] Address: [address] [place] [address] Performed By: #### 5 7021-8 ####[facility] [id number] [address] [place] Eosinophils (Bld) [#/Vol] 0.13 10*3/uL Normal <0.46 [facility] Comment on above: Order Comment: Speci men Type: BLOOD SPECIMENOrdering Facility: [facility] Address: [address] [place] [address] Performed By: #### 5 7021-8 ####[facility] [id number] [address] [place] Eosinophils/100 WBC (Bld) 2.1 % Normal [facility] Comment on above: Order Comment: Speci men Type: BLOOD SPECIMENOrdering Facility: [facility] Address: [address] [place] [address] Performed By: #### 5 7021-8 ####[facility] [id number] [address] Erythrocyte distribution width (RBC) [Ratio] 12.2 % Normal 11.5-15.0 [facility] Comment on above: Order Comment: Speci men Type: BLOOD SPECIMENOrdering Facility: [facility] Address: [address] [place] [address] Performed By: #### 5 7021-8 ####[facility] [id number] [address] [place] Hematocrit (Bld) [Volume fraction] 35.7 % Low 36.0-46.0 [facility] Comment on above: Order Comment: Speci men Type: BLOOD SPECIMENOrdering Facility: [facility] Address: [address] [place] [address] Performed By: #### 5 7021-8 ####[facility] [id number] [address] Hemoglobin (Bld) [Mass/Vol] 12.0 g/dL Normal 11.5-15.5 [facility] Comment on above: Order Comment: Speci men Type: BLOOD SPECIMENOrdering Facility: [facility] Address: [address] [place] [address] Performed By: #### 5 7021-8 ####[facility] [id number] [address] [place] Immature granulocytes (Bld) [#/Vol] 0.04 10*3/uL Normal <0.10 [facility] Comment on above: Order Comment: Speci men Type: BLOOD SPECIMENOrdering Facility: [facility] Address: [address] [place] [address] Performed By: #### 5 7021-8 ####[facility]ATORYCLIA [id number] [address] Immature granulocytes/100 WBC (Bld) 0.6 % Normal [facility] Comment on above: Order Comment: Speci men Type: BLOOD SPECIMENOrdering Facility: [facility] Address: [address] [place] [address] Performed By: #### 5 7021-8 ####[facility]ORATORYCLIA [id number] [address] [place] Lymphocytes (Bld) [#/Vol] 1.21 10*3/uL Normal 1.00-4.00 [facility] Comment on above: Order Comment: Speci men Type: BLOOD SPECIMENOrdering Facility: [facility] Address: [address] [place] [address] Performed By: #### 5 7021-8 ####[facility]ORATORYCLIA [id number] [address] Lymphocytes/100 WBC (Bld) 19.2 % Normal [facility] Comment on above: Order Comment: Speci men Type: BLOOD SPECIMENOrdering Facility: [facility] Address: [address] [place] [address] Performed By: #### 5 7021-8 ####[facility]ATORYCLIA [id number] [address] [place] MCH (RBC) [Entitic mass] 33.8 pg Normal 26.0-34.0 [facility] Comment on above: Order Comment: Speci men Type: BLOOD SPECIMENOrdering Facility: [facility] Address: [address] [place] [address] Performed By: #### 5 7021-8 ####[facility]ATORYCLIA [id number] [address] [place] MCHC (RBC) [Mass/Vol] 33.6 g/dL Normal 30.5-36.0 [facility] Comment on above: Order Comment: Speci men Type: BLOOD SPECIMENOrdering Facility: [facility] Address: [address] [place] [address] Performed By: #### 5 7021-8 ####[facility]ATORYCLIA [id number] [address] [place] MCV (RBC) [Entitic vol] 100.6 fL High 80.0-100.0 [facility] Comment on above: Order Comment: Speci men Type: BLOOD SPECIMENOrdering Facility: [facility] Address: [address] [place] [address] Performed By: #### 5 7021-8 ####[facility]ORATORYCLIA [id number] [address] OF [facility] Monocytes (Bld) [#/Vol] 0.61 10*3/uL Normal <0.87 [facility] Comment on above: Order Comment: Speci men Type: BLOOD SPECIMENOrdering Facility: [facility] Address: [address] [place] [address] Performed By: #### 5 7021-8 ####[facility]ORATORYCLIA [id number] [address] Monocytes/100 WBC (Bld) 9.7 % Normal [facility] Comment on above: Order Comment: Speci men Type: BLOOD SPECIMENOrdering Facility: [facility] Address: [address] [place] [address] Performed By: #### 5 7021-8 ####[facility]ORATORYCLIA [id number] [address] [place] Neutrophils (Bld) [#/Vol] 4.30 10*3/uL Normal 1.45-7.50 [facility] Comment on above: Order Comment: Speci men Type: BLOOD SPECIMENOrdering Facility: [facility] Address: [address] [place] [address] Performed By: #### 5 7021-8 ####[facility] LABORATORYCLIA [id number] [place] [address] [place] Neutrophils/100 WBC (Bld) 68.1 % Normal [facility] Comment on above: Order Comment: Speci men Type: BLOOD SPECIMENOrdering Facility: [facility] Address: [facility] [place] [address] Performed By: #### 5 7021-8 ####[facility]ORATORYCLIA [id number] [address] [place] Nucleated RBC (Bld) [#/Vol] 10*3/uL Normal <0.01 [facility] Comment on above: Order Comment: Speci men Type: BLOOD SPECIMENOrdering Facility: [facility] Address: [address] [place] [address] Performed By: #### 5 7021-8 ####[facility]ORATORYCLIA [id number] [address] [place] Nucleated RBC/100 WBC (Bld) [Ratio] 0.0 /100 WBC Normal [facility] Comment on above: Order Comment: Speci men Type: BLOOD SPECIMENOrdering Facility: [facility] Address: [address] [place] [address] Performed By: #### 5 7021-8 ####[facility]ORATORYCLIA [id number] [place] [address] [place] Platelet mean volume (Bld) [Entitic vol] 8.8 fL Low 9.0-12.7 [facility] Comment on above: Order Comment: Speci men Type: BLOOD SPECIMENOrdering Facility: [facility] Address: [address] [place] [address] Performed By: #### 5 7021-8 ####[facility]ORATORYCLIA [id number] [address] STATES OF [facility] Platelets (Bld) [#/Vol] 116 10*3/uL Low 150-400 [facility] Comment on above: Order Comment: Speci men Type: BLOOD SPECIMENOrdering Facility: [facility] Address: [address] [place] [address] Performed By: #### 5 7021-8 ####[facility]ORATORYCLIA [id number] [address] STATES OF [facility] RBC (Bld) [#/Vol] 3.55 10*6/uL Low 3.90-5.20 [facility] Comment on above: Order Comment: Speci men Type: BLOOD SPECIMENOrdering Facility: [facility] Address: [address] [place] [address] Performed By: #### 5 7021-8 ####[facility]ORATORYCLIA [id number] [address] WBC (Bld) [#/Vol] 6.31 10*3/uL Normal 3.70-11.00 [facility] Comment on above: Order Comment: Speci men Type: BLOOD SPECIMENOrdering Facility: [facility] Address: [address] [place] [address] Performed By: #### 5 7021-8 ####[facility]ORATORYCLIA [id number] [address] [place] Comprehensive metabolic 2000 panelon 12-16-2024 Albumin [Mass/Vol] 3.1 g/dL Low 3.9-4.9 [facility] Comment on above: Order Comment: Speci men Type: BLOOD SPECIMEN [facility] Address: [address] [place] [address] Performed By: #### 2 4321-2, 34287-2, 3016-3 #### [facility] CLIA [id number] [address] ALP [Catalytic activity/Vol] 78 U/L Normal 34-123 [facility] Comment on above: Order Comment: Speci men Type: BLOOD SPECIMEN [facility] Address: [address] [place] [address] Performed By: #### 2 4321-2, , 3 #### [facility] CLIA [id number] [address] [place] ALT With P-5'-P [Catalytic activity/Vol] 18 U/L Normal 7-38 [facility] Comment on above: Order Comment: Speci men Type: BLOOD SPECIMEN [facility] Address: [address] [place] [address] Performed By: #### 2 4321-2, , 3015-12 #### [facility] CLIA [id number] [address] [place] Anion gap [Moles/Vol] 11 mmol/L Normal 8-15 [facility] Comment on above: Order Comment: Speci men Type: BLOOD SPECIMEN [facility] Address: [address] [place] [address] Performed By: #### 2 4321-2, , 3015-12 #### [facility] CLIA [id number] [address] OF [facility] AST With P-5'-P [Catalytic activity/Vol] 31 U/L Normal 13-35 [facility] Comment on above: Order Comment: Speci men Type: BLOOD SPECIMEN [facility] Address: [address] [place] [id number] Performed By: #### 2 4321-2, , 3 #### [facility] CLIA [id number] [address] [place] Bilirubin [Mass/Vol] 0.2 mg/dL Normal 0.2-1.3 [facility] Comment on above: Order Comment: Speci men Type: BLOOD SPECIMEN [facility] Address: [address] [place] [address] Performed By: #### 2 4321-2, , 3015-3 #### [facility] CLIA [id number] [address] [place] [address] [place] Calcium [Mass/Vol] 8.5 mg/dL Normal 8.5-10.2 [facility] Comment on above: Order Comment: Speci men Type: BLOOD SPECIMEN [facility] Address: [address] [place] [address] Performed By: #### 2 4321-2, , 3015-3 #### [facility] CLIA [id number] [address] [place] [address] [place] Chloride [Moles/Vol] 105 mmol/L Normal 98-107 [facility] Comment on above: Order Comment: Speci men Type: BLOOD SPECIMEN [facility] Address: [address] [place] [address] Performed By: #### 2 4320-2, , 3 #### [facility] CLIA [id number] [address] [place] [address] [place] CO2 [Moles/Vol] 22 mmol/L Normal 22-30 [facility] Comment on above: Order Comment: Speci men Type: BLOOD SPECIMEN [facility] Address: [address] [place] [address] Performed By: #### 2 1-2, , 3 #### [facility] CLIA [id number] [address] [place] [address] [place] Creatinine [Mass/Vol] 0.36 mg/dL Low 0.58-0.96 [facility] Comment on above: Order Comment: Speci men Type: BLOOD SPECIMEN [facility] Address: [facility] [place] [address] Performed By: #### 2 4321-2, , 3015-3 #### [facility] CLIA [id number] [address] [place] [address] [place] Creatinine and Glomerular filtration rate.predicted panel (S/P/Bld) 107 mL/min/1.73m??? Normal >=60 [facility] Comment on above: Order Comment: Vicky montilla Type: BLOOD SPECIMEN [facility] Address: [address] [place] [address] Result Comment: Cecy mated Glomerular Filtration Rate [...] By: #### 2 4321-2, , 3015-3 #### [facility] CLIA [id number] [address] [place] [address] [place] Glucose [Mass/Vol] 103 mg/dL High 74-99 [facility] Comment on above: Order Comment: Vicky montilla Type: BLOOD SPECIMEN [facility] Address: [address] [place] [address] Result Comment: The [place] [employer] (ADA) provides guidance for cutoff [...] Standards of Medical Care in Diabetes 2016, [place] [employer]. Diabetes Care. 2016.39(Suppl 1). Performed By: #### 2 4321-2, 31340-5, 3015-3 #### [facility] CLIA [id number] [address] [place] [address] [place] Potassium [Moles/Vol] 3.5 mmol/L Low 3.7-5.1 [facility] Comment on above: Order Comment: Speci men Type: BLOOD SPECIMEN [facility] Address: [address] [place] [address] Performed By: #### 2 4321-2, , 3 #### [facility] CLIA [id number] [address] [place] Protein [Mass/Vol] 5.9 g/dL Low 6.3-8.0 [facility] Comment on above: Order Comment: Speci men Type: BLOOD SPECIMEN [facility] Address: [address] [place] [address] Performed By: #### 2 4321-2, , 3 #### [facility] CLIA [id number] [address] Sodium [Moles/Vol] 138 mmol/L Normal 136-144 [facility] Comment on above: Order Comment: Speci men Type: BLOOD SPECIMEN [facility] Address: [address] [place] [address] Performed By: #### 2 4321-2, , 3 #### [facility] CLIA [id number] [address] [place] Urea nitrogen [Mass/Vol] 5 mg/dL Low 7-21 [facility] Comment on above: Order Comment: Speci men Type: BLOOD SPECIMEN [facility] Address: [address] [place] [address] Performed By: #### 2 4321-2, , 3 #### [facility] CLIA [id number] [address] OF [facility] THERAPY NTon 12-16-2024 THERAPY NT HNO ID: [id number] Author: VIANNEY MARINO OTR/L Service: Occupational Therapy Author Type: Occupational Therapist Type: Therapy (PT/OT/Speech/Resp) Filed: 12/16/2024 11:01 Note Text: Occupational Therapy Evaluation Summary SERVICE DATE: 12/16/2024 SERVICE TIME: 914 to 942 ROOM: [place] [address] OT 6 Clicks Score: 11 DISCHARGE RECOMMENDATIONS [facility] Recommended Discharge Disposition Comments: D/C OT, patient [...] HOME LIVING Patient Lives With: [facility] ([facility]) Assistance Available: 24-Hour Equipment Owned: Wheelchair- Manual PRIOR FUNCTIONAL LEVEL Required Assistance Assistance Required With: Cleaning, Laundry, Meals, Medication Management, Safety, Self Care, Shopping, Transportation Patient lives at [facility], requires significant assistance for all ADLs. She is araseli lifted to the her w/c. Baseline Cognition: Oriented to self, Oriented to place, Oriented to time, Oriented to situation SUBJECTIVE agreeable to session COGNITION Responsiveness: Alert Follows Commands: 2-step Commands Executive Function Deficits: Safety Awareness THERAPY DIAGNOSIS No Skilled Need TREATMENT INTERVENTIONS Evaluation Skilled Treatment Time (minutes): 28 $ Evaluation - Low (33659) Billed Units: 1 unit TRAINING AND EDUCATION [...] Therapy Services Discontinued: No skilled needs SIGNATURE: Vianney Marino OTR/L PATIENT NAME: Elba Diaz DATE: December 16, 2024 TIME: 11:00 AM Normal [facility] THERAPY NT HNO ID: [id number] Author: DINA MCMANUS PT Service: Physical Therapy Author Type: Physical Therapist Type: Therapy (PT/OT/Speech/Resp) Filed: 12/16/2024 09:51 Note Text: PHYSICAL THERAPY MISSED VISIT SERVICE DATE: 12/16/2024 SERVICE TIME: 949 ROOM: [place] [address] Patient not seen due to Clinical Appropriateness. Patient araseli lift at [facility] prior to hospitalization. Patient able to return to [facility] SIGNATURE: Dina Mcmanus PT PATIENT NAME: Elba Diaz DATE: December 16, 2024 TIME: 9:50 AM Normal [facility] Basic metabolic 2000 panelon 12-15-2024 Anion gap [Moles/Vol] 13 mmol/L Normal 8-15 [facility] Comment on above: Order Comment: Speci men Type: BLOOD SPECIMEN [facility] Address: [address] [place] [address] Performed By: #### 2 4321-2, , 3 #### [facility] CLIA [id number] 1 [place] [address] [place] Calcium [Mass/Vol] 8.3 mg/dL Low 8.5-10.2 [facility] Comment on above: Order Comment: Speci men Type: BLOOD SPECIMEN [facility] Address: [address] [place] [address] Performed By: #### 2 4321-2, , 3 #### [facility] CLIA [id number] 1 [place] [address] [place] Chloride [Moles/Vol] 107 mmol/L Normal 98-107 [facility] Comment on above: Order Comment: Speci men Type: BLOOD SPECIMEN [facility] Address: [address] [place] [address] Performed By: #### 2 4321-2, , 3015-3 #### [facility] CLIA [id number] [address] [place] [address] [place] CO2 [Moles/Vol] 20 mmol/L Low 22-30 [facility] Comment on above: Order Comment: Speci men Type: BLOOD SPECIMEN [facility] Address: [address] [place] [address] Performed By: #### 2 4321-2, 09574-6, 3 #### [facility] CLIA [id number] [address] OF [facility] Creatinine [Mass/Vol] 0.37 mg/dL Low 0.58-0.96 [facility] Comment on above: Order Comment: Speci men Type: BLOOD SPECIMEN [facility] Address: [address] [place] [address] Performed By: #### 2 4321-2, , 3 #### [facility] CLIA [id number] [address] Creatinine and Glomerular filtration rate.predicted panel (S/P/Bld) 107 mL/min/1.73m??? Normal >=60 [facility] Comment on above: Order Comment: Speci men Type: BLOOD SPECIMEN [facility] Address: [address] [place] [address] Result Comment: Cecy mated Glomerular Filtration Rate [...] actual GFR. Performed By: #### 2 4321-2, 45404-5, 3 #### [facility] CLIA [id number] [address] OF [facility] Glucose [Mass/Vol] 73 mg/dL Low 74-99 [facility] Comment on above: Order Comment: Speci men Type: BLOOD SPECIMEN [facility] Address: [address] [place] [address] Result Comment: The [place] Diabetes [employer] (ADA) provides guidance for cutoff [...] Standards of Medical Care in Diabetes 2016, [place] [employer]. Diabetes Care. 2016.39(Suppl 1). Performed By: #### 2 4321-2, , 3 #### [facility] CLIA [id number] [address] [place] [address] [place] Potassium [Moles/Vol] 3.6 mmol/L Low 3.7-5.1 [facility] Comment on above: Order Comment: Vicky montilla Type: BLOOD SPECIMEN [facility] Address: [address] [place] [address] Performed By: #### 2 1-2, , 3 #### [facility] CLIA [id number] [address] [place] [address] [place] Sodium [Moles/Vol] 140 mmol/L Normal 136-144 [facility] Comment on above: Order Comment: Vicky montilla Type: BLOOD SPECIMEN [facility] Address: [address] [place] [address] Performed By: #### 2 4321-2, , 3 #### [facility] CLIA [id number] [address] [place] [address] [place] Urea nitrogen [Mass/Vol] 11 mg/dL Normal 7-21 [facility] Comment on above: Order Comment: Vicky montilla Type: BLOOD SPECIMEN [facility] Address: [address] [place] [address] Performed By: #### 2 4321-2, , 3 #### [facility] CLIA [id number] [address] [place] [address] [place] CBC panel Auto (Bld)on 12-15 Erythrocyte distribution width (RBC) [Ratio] 12.2 % Normal 11.5-15.0 [facility] Comment on above: Order Comment: Speci men Type: BLOOD SPECIMEN [facility] Address: [address] [place] [address] Performed By: #### 3 0471-7 #### [facility] CLIA [id number] [address] [place] [address] [place] Hematocrit (Bld) [Volume fraction] 33.8 % Low 36.0-46.0 [facility] Comment on above: Order Comment: Speci men Type: BLOOD SPECIMEN [facility] Address: [address] [place] [address] Performed By: #### 3 0471-7 #### [facility] CLIA [id number] [address] [place] [address] [place] Hemoglobin (Bld) [Mass/Vol] 10.9 g/dL Low 11.5-15.5 [facility] Comment on above: Order Comment: Speci men Type: BLOOD SPECIMEN [facility] Address: [address] [place] [address] Performed By: #### 3 0471-7 #### [facility] CLIA [id number] [address] [place] [address] [place] MCH (RBC) [Entitic mass] 33.6 pg Normal 26.0-34.0 [facility] Comment on above: Order Comment: Speci men Type: BLOOD SPECIMEN [facility] Address: [address] [place] [address] Performed By: #### 3 0471-7 #### [facility] CLIA [id number] [address] [id number] [address] [place] MCHC (RBC) [Mass/Vol] 32.2 g/dL Normal 30.5-36.0 [facility] Comment on above: Order Comment: Speci men Type: BLOOD SPECIMEN [facility] Address: [address] [place] [address] Performed By: #### 3 0471-7 #### [facility] CLIA [id number] [address] [place] [address] [place] MCV (RBC) [Entitic vol] 104.3 fL High 80.0-100.0 [facility] Comment on above: Order Comment: Speci men Type: BLOOD SPECIMEN [facility] Address: [address] [place] [address] Performed By: #### 3 0471-7 #### [facility] CLIA [id number] [address] [place] [address] [place] Nucleated RBC (Bld) [#/Vol] 10*3/uL Normal <0.01 [facility] Comment on above: Order Comment: Speci men Type: BLOOD SPECIMEN [facility] Address: [address] [place] [address] Performed By: #### 3 0471-7 #### [facility] CLIA [id number] [address] [place] [address] [place] Platelet mean volume (Bld) [Entitic vol] 8.9 fL Low 9.0-12.7 [facility] Comment on above: Order Comment: Speci men Type: BLOOD SPECIMEN [facility] Address: [address] [place] [address] Performed By: #### 3 0471-7 #### [facility] CLIA [id number] [address] [place] [address] [place] Platelets (Bld) [#/Vol] 109 10*3/uL Low 150-400 [facility] Comment on above: Order Comment: Speci men Type: BLOOD SPECIMEN [facility] Address: [address] [place] [address] Performed By: #### 3 0471-7 #### [facility] CLIA [id number] [address] [place] [address] [place] RBC (Bld) [#/Vol] 3.24 10*6/uL Low 3.90-5.20 [facility] Comment on above: Order Comment: Speci men Type: BLOOD SPECIMEN [facility] Address: [address] [place] [address] Performed By: #### 3 0471-7 #### [facility] CLIA [id number] [address] [place] [address] [place] WBC (Bld) [#/Vol] 7.76 10*3/uL Normal 3.70-11.00 [facility] Comment on above: Order Comment: Speci men Type: BLOOD SPECIMEN [facility] Address: [address] [place] [address] Performed By: #### 3 0471-7 #### [facility] CLIA [id number] [address] [place] [address] CONFIRM BLOOD TYPEon 025 ABO A Normal [facility] Comment on above: Order Comment: Speci men Type: BLOOD SPECIMENOrdering Facility: [facility] Address: [address] [place] [address] Performed By: #### C ONABO ####[facility]ANKCLIA [id number] [address] [place] Rh Nom (Bld) Positive Normal [facility] Comment on above: Order Comment: Speci men Type: BLOOD SPECIMENOrdering Facility: [facility] Address: [address] [place] [address] Performed By: #### C ONABO ####[facility] BANKCLIA [id number] [address] [place] ED NOTEon 12-15-2024 ED NOTE HNO ID: [id number] Author: LEEANN BRIONES RN Service: ? Author Type: Registered Nurse Type: ED Notes Filed: 12/15/2024 20:50 Note Text: RN report call x2, informed 4100 pt will go up in 15 minutes at this time [facility] ED NOTE HNO ID: [id number] Author: LEEANN BRIONES RN Service: ? Author Type: Registered Nurse Type: ED Notes Filed: 12/15/2024 20:51 Note Text: Report call x1 attempt, no answer [facility] ED NOTE HNO ID: [id number] Author: YENNY HENDERSON RN Service: Emergency Medicine Author Type: Registered Nurse Type: ED Notes Filed: 12/15/2024 18:13 Note Text: Awaiting D5-.09%NaCl with potassium chloride 20 meq from pharmacy [facility] ED NOTE HNO ID: [id number] Author: YENNY HENDERSON RN Service: Emergency Medicine Author Type: Registered Nurse Type: ED Notes Filed: 12/15/2024 18:11 Note Text: Pt given dinner tray at this time [facility] ED NOTE HNO ID: [id number] Author: YENNY HENDERSON RN Service: Emergency Medicine Author Type: Registered Nurse Type: ED Notes Filed: 12/15/2024 13:27 Note Text: Pt given meal tray at this time [facility] ED NOTE HNO ID: [id number] Author: YENNY HENDERSON RN Service: Emergency Medicine Author Type: Registered Nurse Type: ED Notes Filed: 12/15/2024 12:55 Note Text: Pt given a full bed change. Pt has a stage 2 pressure wound on coccyx. Previous Allevyn dressing removed and new one placed at this time. 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 Test performed due to noticing pts Glucose 73 at 0542. [facility] ED NOTE HNO ID: [id number] Author: KAILEE CRAIN, MONAE Service: Nursing Author Type: Registered Nurse Type: ED Notes Filed: 12/15/2024 06:12 Note Text: Called sound and made aware of the hgb drop. Spoke with Dr. Cano, he stated he would let Dr. Carreno know. [facility] ALLIED HEALTHon 12-14-2024 ALLIED HEALTH HNO ID: [id number] Author: ARIANNA DAVIS Tech Service: Radiology Author [...] PATIENT PRESENTS WITH AN IMPLANTABLE OR ATTACHED ENVIRONMENTAL COMMUNICATIONS SPECIALIST: No RADIOLOGY DEPARTMENT: CT; Exam(s) Completed: Brain PERIPHERAL IV DATA: Not applicable SIGNED BY: Karo Degroot December 14, 2024 4:32 PM [facility] CBC W Auto Differential pane l (Bld)on 12-14-2024 Basophils (Bld) [#/Vol] 0.04 10*3/uL Normal <0.11 [facility] Comment on above: Order Comment: Speci men Type: BLOOD SPECIMEN Ordering Facility: [facility] Address: [address] [place] [address] Performed By: #### 3 0471-7 #### [facility] CLIA [id number] [address] [place] [address] [place] Basophils/100 WBC (Bld) 0.5 % Normal [facility] Comment on above: Order Comment: Speci men Type: BLOOD SPECIMEN Ordering Facility: [facility] Address: [address] [place] [address] Performed By: #### 3 0471-7 #### [facility] CLIA [id number] [address] [place] [address] [place] Differential cell count method Nom (Bld) Auto Normal [facility] Comment on above: Order Comment: Speci men Type: BLOOD SPECIMEN Ordering Facility: [facility] Address: [address] [place] [address] Performed By: #### 3 0471-7 #### [facility] CLIA [id number] [address] [place] [address] [place] Eosinophils (Bld) [#/Vol] 0.05 10*3/uL Normal <0.46 [facility] Comment on above: Order Comment: Speci men Type: BLOOD SPECIMEN Ordering Facility: [facility] Address: [address] [place] [address] Performed By: #### 3 0471-7 #### [facility] CLIA [id number] [address] [place] [address] [place] Eosinophils/100 WBC (Bld) 0.6 % Normal [facility] Comment on above: Order Comment: Speci men Type: BLOOD SPECIMEN Ordering Facility: [facility] Address: [address] [place] [address] Performed By: #### 3 0471-7 #### [facility] CLIA [id number] [address] [place] [address] [place] Erythrocyte distribution width (RBC) [Ratio] 12.6 % Normal 11.5-15.0 [facility] Comment on above: Order Comment: Speci men Type: BLOOD SPECIMEN Ordering Facility: [facility] Address: [address] [place] [address] Performed By: #### 3 0471-7 #### [facility] CLIA [id number] [address] [place] [address] [place] Hematocrit (Bld) [Volume fraction] 42.6 % Normal 36.0-46.0 [facility] Comment on above: Order Comment: Speci men Type: BLOOD SPECIMEN Ordering Facility: [facility] Address: [address] [place] [address] Performed By: #### 3 0471-7 #### [facility] CLIA [id number] [address] [place] [address] [place] Hemoglobin (Bld) [Mass/Vol] 13.6 g/dL Normal 11.5-15.5 [facility] Comment on above: Order Comment: Speci men Type: BLOOD SPECIMEN Ordering Facility: [facility] Address: [address] [place] [address] Performed By: #### 3 0471-7 #### [facility] CLIA [id number] [address] [place] [address] [place] Immature granulocytes (Bld) [#/Vol] 0.03 10*3/uL Normal <0.10 [facility] Comment on above: Order Comment: Speci men Type: BLOOD SPECIMEN Ordering Facility: [facility] Address: [address] [place] [address] Performed By: #### 3 0471-7 #### [facility] CLIA [id number] [address] [place] [address] [place] Immature granulocytes/100 WBC (Bld) 0.3 % Normal [facility] Comment on above: Order Comment: Speci men Type: BLOOD SPECIMEN Ordering Facility: [facility] Address: [address] [place] [address] Performed By: #### 3 0471-7 #### [facility] CLIA [id number] [address] [place] [address] [place] Lymphocytes (Bld) [#/Vol] 1.56 10*3/uL Normal 1.00-4.00 [facility] Comment on above: Order Comment: Speci men Type: BLOOD SPECIMEN Ordering Facility: [facility] Address: [address] [place] [address] Performed By: #### 3 0471-7 #### [facility] CLIA [id number] [address] [place] [address] [place] Lymphocytes/100 WBC (Bld) 17.6 % Normal [facility] Comment on above: Order Comment: Speci men Type: BLOOD SPECIMEN Ordering Facility: [facility] Address: [address] [place] [address] Performed By: #### 3 0471-7 #### [facility] CLIA [id number] [address] [place] [address] [place] MCH (RBC) [Entitic mass] 33.3 pg Normal 26.0-34.0 [facility] Comment on above: Order Comment: Speci men Type: BLOOD SPECIMEN Ordering Facility: [facility] Address: [address] [place] [address] Performed By: #### 3 0471-7 #### [facility] CLIA [id number] [address] [place] [address] [place] MCHC (RBC) [Mass/Vol] 31.9 g/dL Normal 30.5-36.0 [facility] Comment on above: Order Comment: Speci men Type: BLOOD SPECIMEN Ordering Facility: [facility] Address: [address] [place] [address] Performed By: #### 3 0471-7 #### [facility] CLIA [id number] [address] [place] [address] [place] MCV (RBC) [Entitic vol] 104.2 fL High 80.0-100.0 [facility] Comment on above: Order Comment: Speci men Type: BLOOD SPECIMEN Ordering Facility: [facility] Address: [address] [place] [address] Performed By: #### 3 0471-7 #### [facility] CLIA [id number] [address] [place] [address] [place] Monocytes (Bld) [#/Vol] 0.83 10*3/uL Normal <0.87 [facility] Comment on above: Order Comment: Speci men Type: BLOOD SPECIMEN Ordering Facility: [facility] Address: [address] [place] [address] Performed By: #### 3 0471-7 #### [facility] CLIA [id number] [address] [place] [address] [place] Monocytes/100 WBC (Bld) 9.3 % Normal [facility] Comment on above: Order Comment: Speci men Type: BLOOD SPECIMEN Ordering Facility: [facility] Address: [address] [place] [address] Performed By: #### 3 0471-7 #### [facility] CLIA [id number] [address] [place] [address] [place] Neutrophils (Bld) [#/Vol] 6.37 10*3/uL Normal 1.45-7.50 [facility] Comment on above: Order Comment: Speci men Type: BLOOD SPECIMEN Ordering Facility: [facility] Address: [address] [place] [address] Performed By: #### 3 0471-7 #### [facility] CLIA [id number] [address] [place] [address] [place] Neutrophils/100 WBC (Bld) 71.7 % Normal [facility] Comment on above: Order Comment: Speci men Type: BLOOD SPECIMEN Ordering Facility: [facility] Address: [address] [place] [address] Performed By: #### 3 0471-7 #### [facility] CLIA [id number] [address] [place] [address] [place] Nucleated RBC (Bld) [#/Vol] 10*3/uL Normal <0.01 [facility] Comment on above: Order Comment: Speci men Type: BLOOD SPECIMEN Ordering Facility: [facility] Address: [address] [place] [address] Performed By: #### 3 0471-7 #### [facility] CLIA [id number] [address] [place] [address] [place] Nucleated RBC/100 WBC (Bld) [Ratio] 0.0 /100 WBC Normal [facility] Comment on above: Order Comment: Speci men Type: BLOOD SPECIMEN Ordering Facility: [facility] Address: [address] [place] [address] Performed By: #### 3 0471-7 #### [facility] CLIA [id number] [address] [place] [address] [place] Platelet mean volume (Bld) [Entitic vol] 9.1 fL Normal 9.0-12.7 [facility] Comment on above: Order Comment: Speci men Type: BLOOD SPECIMEN Ordering Facility: [facility] Address: [address] [place] [address] Performed By: #### 3 0471-7 #### [facility] CLIA [id number] [address] [place] [address] [place] Platelets (Bld) [#/Vol] 152 10*3/uL Normal 150-400 [facility] Comment on above: Order Comment: Speci men Type: BLOOD SPECIMEN Ordering Facility: [facility] Address: [address] [place] [address] Performed By: #### 3 0471-7 #### [facility] CLIA [id number] [address] [place] [address] [place] RBC (Bld) [#/Vol] 4.09 10*6/uL Normal 3.90-5.20 [facility] Comment on above: Order Comment: Speci men Type: BLOOD SPECIMEN Ordering Facility: [facility] Address: [address] [place] [address] Performed By: #### 3 0471-7 #### [facility] CLIA [id number] [address] [place] [address] [place] WBC (Bld) [#/Vol] 8.88 10*3/uL Normal 3.70-11.00 [facility] Comment on above: Order Comment: Speci men Type: BLOOD SPECIMEN Ordering Facility: [facility] Address: [address] [place] [address] Performed By: #### 3 0471-7 #### [facility] CLIA [id number] [address] [place] [address] [place] [address] [address] BRAIN WO IVCONon 12-14-[address] BRAIN WO IVCON * * *Final Report* * * DATE OF EXAM: Dec 14 2024 4:34PM [facility] 0504 - CT BRAIN WO [...] changes with no acute intracranial process identified. Automatic Screwmaker: PSCJohnnie Transcribe Date/Time: Dec 14 2024 4:59P Dictated by : FANTA WOODWARD MD This examination was interpreted and the report reviewed and electronically signed by: FANTA WOODWARD MD on Dec 14 2024 5:00PM EST [id number] Normal [facility] Comprehensive metabolic 2000 panelon 12-14-2024 Albumin [Mass/Vol] 3.8 g/dL Low 3.9-4.9 [facility] Comment on above: Order Comment: Vicky montilla Type: BLOOD SPECIMEN Ordering Facility: [facility] Address: [address] [place] [address] Performed By: #### 2 4321-2, , 3015-3 #### [facility] CLIA [id number] [address] [place] ALP [Catalytic activity/Vol] 77 U/L Normal 34-123 [facility] Comment on above: Order Comment: Vicky montilla Type: BLOOD SPECIMEN Ordering Facility: [facility] Address: [address] [place] [address] Performed By: #### 2 4321-2, , 3015-3 #### [facility] CLIA [id number] [address] [place] [address] [place] ALT With P-5'-P [Catalytic activity/Vol] 17 U/L Normal 7-38 [facility] Comment on above: Order Comment: Vicky montilla Type: BLOOD SPECIMEN Ordering Facility: [facility] Address: [address] [place] [address] Performed By: #### 2 4321-2, , 3015-3 #### [facility] CLIA [id number] [address] [place] [address] [place] Anion gap [Moles/Vol] 14 mmol/L Normal 8-15 [facility] Comment on above: Order Comment: Speci men Type: BLOOD SPECIMEN Ordering Facility: [facility] Address: [address] [place] [address] Performed By: #### 2 4321-2, , 3015-3 #### [facility] CLIA [id number] [address] [place] [address] [place] AST With P-5'-P [Catalytic activity/Vol] 27 U/L Normal 13-35 [facility] Comment on above: Order Comment: Speci men Type: BLOOD SPECIMEN Ordering Facility: [facility] Address: [address] [place] [address] Performed By: #### 2 4321-2, , 3 #### [facility] CLIA [id number] [address] [place] Bilirubin [Mass/Vol] 0.3 mg/dL Normal 0.2-1.3 [facility] Comment on above: Order Comment: Speci men Type: BLOOD SPECIMEN Ordering Facility: [facility] Address: [address] [place] [address] Performed By: #### 2 4321-2, , 3 #### [facility] CLIA [id number] [address] [place] Calcium [Mass/Vol] 9.9 mg/dL Normal 8.5-10.2 [facility] Comment on above: Order Comment: Speci men Type: BLOOD SPECIMEN Ordering Facility: [facility] Address: [address] [place] [address] Performed By: #### 2 4321-2, , 3015-3 #### [facility] CLIA [id number] [address] [place] [address] [place] Chloride [Moles/Vol] 108 mmol/L High 98-107 [facility] Comment on above: Order Comment: Speci men Type: BLOOD SPECIMEN Ordering Facility: [facility] Address: [address] [place] [address] Performed By: #### 2 4321-2, , 3015-12 #### [facility] CLIA [id number] [address] [place] CO2 [Moles/Vol] 21 mmol/L Low 22-30 [facility] Comment on above: Order Comment: Speci men Type: BLOOD SPECIMEN Ordering Facility: [facility] Address: [address] [place] [address] Performed By: #### 2 4321-2, , 3015-12 #### [facility] CLIA [id number] [address] Creatinine [Mass/Vol] 0.48 mg/dL Low 0.58-0.96 [facility] Comment on above: Order Comment: Speci men Type: BLOOD SPECIMEN Ordering Facility: [facility] Address: [address] [place] [address] Performed By: #### 2 4321-2, , 3015-12 #### [facility] CLIA [id number] [address] Creatinine and Glomerular filtration rate.predicted panel (S/P/Bld) 100 mL/min/1.73m??? Normal >=60 [facility] Comment on above: Order Comment: Speci men Type: BLOOD SPECIMEN Ordering Facility: [facility] Address: [address] [place] [address] Result Comment: Cecy mated Glomerular Filtration Rate [...] By: #### 2 4321-2, , 3015-12 #### [facility] CLIA [id number] [address] [place] [address] [place] Glucose [Mass/Vol] 104 mg/dL High 74-99 [facility] Comment on above: Order Comment: Vicky montilla Type: BLOOD SPECIMEN Ordering Facility: [facility] Address: [address] [place] [address] Result Comment: The [place] [employer] (ADA) provides guidance for cutoff [...] Standards of Medical Care in Diabetes 2016, [place] [employer]. Diabetes Care. 2016.39(Suppl 1). Performed By: #### 2 4321-2, , 3015-3 #### [facility] CLIA [id number] [address] [place] [address] [place] Potassium [Moles/Vol] 4.3 mmol/L Normal 3.7-5.1 [facility] Comment on above: Order Comment: Vicky montilla Type: BLOOD SPECIMEN Ordering Facility: [facility] Address: [address] [place] [address] Performed By: #### 2 4321-2, , 3 #### [facility] CLIA [id number] [address] [place] [address] [place] Protein [Mass/Vol] 7.1 g/dL Normal 6.3-8.0 [facility] Comment on above: Order Comment: Vicky montilla Type: BLOOD SPECIMEN Ordering Facility: [facility] Address: [address] [place] [address] Performed By: #### 2 4321-2, , 3015-3 #### [facility] CLIA [id number] [address] [place] Sodium [Moles/Vol] 143 mmol/L Normal 136-144 [facility] Comment on above: Order Comment: Speci men Type: BLOOD SPECIMEN Ordering Facility: [facility] Address: [address] [place], [place] [address] Performed By: #### 2 4321-2, 61394-2, 3016-3 #### [facility] CLIA [id number] [address] [place] Urea nitrogen [Mass/Vol] 17 mg/dL Normal 7-21 [facility] Comment on above: Order Comment: Speci men Type: BLOOD SPECIMEN Ordering Facility: [facility] Address: [address] [place] [address] Performed By: #### 2 4321-2, 52995-1, 6-3 #### [facility] CLIA [id number] [address] [place] ECG COMPLETEon 12-14-2024 ECG COMPLETE Ventricular Rate : 1 07 BPM Atrial Rate : 107 BPM P-R Interval : 118 ms QRS Duration : 62 ms Q-T Interval : 322 ms QTC Calculation(Bazett) : 429 ms Calculated P [place] : 19 degrees Calculated R [place] : -19 degrees Calculated T [place] : 27 degrees SINUS TACHYCARDIA LOW VOLTAGE QRS NONSPECIFIC ST AND T WAVE ABNORMALITY ABNORMAL ECG WHEN COMPARED WITH ECG OF 03-Nov-2021 12:23, NONSPECIFIC T WAVE ABNORMALITY, IMPROVED IN LATERAL LEADS Confirmed by PINO DONALDSON MD ([id number]) on 02/23/2025 10:17:12 PM NAME : ELBA DIAZ PID : [id number] : 1950 Gender : Female Race : ORD : [id number] Procedure Date : Dec 14 2024 13:46:46 Edit Date : Feb 23 2025 22:17:13 Diagnosis: SINUS TACHYCARDIA LOW VOLTAGE QRS NONSPECIFIC ST AND T WAVE ABNORMALITY ABNORMAL ECG WHEN COMPARED WITH ECG OF 03-Nov-2021 12:23, NONSPECIFIC T WAVE ABNORMALITY, IMPROVED IN LATERAL LEADS Confirmed by PINO DONALDSON MD ([id number]) on 02/23/2025 10:17:12 PM Test Reason : Chest Pain Location : 4 : AKED EM Overread By : PINO DONALDSON MD Edited By : PINO DONALDSON MD Referred By : , Acquired by : GAYATHRI WOMACK [facility] ED NOTEon 12-14-2024 ED NOTE HNO ID: [id number] Author: KAILEE CRAIN, RN Service: Nursing Author Type: Registered Nurse Type: ED Notes Filed: 12/14/2024 22:50 Note Text: Pt woke up from sleeping. When I went in to turn of IV pump and assess her. She kept repeating, "what a neat trick." When asking what trick she replied, "all of this". Then would just repeat it. [facility] ED NOTE HNO ID: [id number] Author: KAILEE CRAIN, RN Service: Nursing Author Type: Registered Nurse Type: ED Notes Filed: 12/14/2024 19:28 Note Text: Pt in on monitor technician, bp cuff and pulse ox attached. Pts son at bedside [facility] ED NOTE HNO ID: [id number] Author: KAILEE CRAIN, MONAE Service: Nursing Author Type: Registered Nurse Type: ED Notes Filed: 12/14/2024 19:05 Note Text: Pt given a turkey sandwich. [facility] ED NOTE HNO ID: [id number] Author: ESTELLE PANIAGUA, MONAE Service: Emergency Medicine Author Type: Registered Nurse Type: ED Notes Filed: 12/14/2024 13:52 Note Text: Patient arrives via ems from ems with c/o confusion [facility] ED NOTE HNO ID: [id number] Author: PAMELA BALLESTEROS, [place] Service: ? 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 [employer] Type: ED Notes Filed: 12/14/2024 13:47 Note Text: Bed: 22-ED Expected date: Expected time: Means of arrival: Comments: Lindsay 74yo confusion [facility] ED PROV NOTEon 12-14-2024 ED PROV NOTE HNO ID: [id number] Author: SAMEER FISCHER MD Service: Emergency Medicine [...] Course as of 12/15/24199 Sameer Fischer's Documentation [facility] Dec 15, 2024199 ED ATTENDING SIGN OUT NOTE Code Status: @EDCODESTATUS@ Presentation / Findings / Interventions / Plan / Items to Follow Up: awaiting inpatient bed Report Given to: Dr. Pemberton SIGNATURE: Sameer Fischer MD PATIENT NAME: Elba Diaz DATE: December 15, 2024 TIME: 2:00 AM PAGER/CONTACT #: Others' Documentation [place] Dec 14, 2024 1625 Patient here for [...] of the brain unremarkable. Spoke with the [facility] inpatient medical team, who accepted the patient [...] [place] Emergency Medicine Resident Physician, PGY-2 [facility] This note was created using Chirpme dictation software. Every attempt was made to [...] 12/14/24 2215 SAMEER FISCHER 12/15/24 0104 Normal [facility] ED PROV NOTE HNO ID: [id number] Author: ROBB TORRES MD Service: Emergency Medicine [...] to address for these etiologies. Others' Documentation [facility] Dec 15, 2024 0200 ED ATTENDING SIGN OUT NOTE Code Status: @EDCODESTATUS@ Presentation / Findings / Interventions / Plan / Items to Follow Up: awaiting inpatient bed Report Given to: Dr. Pemberton SIGNATURE: KRISTYN Pizarro NAME: Elba Diaz DATE: December 15, 2024MRN: [id number] TIME: 2:00 AMPAGER/CONTACT #: [JNaomi] ED Course User Index [BOY] Sameer Fischer [...] questioned about mental status changes patient states "that is just Aleta my aide". PAST MEDICAL HISTORY Diagnosis Date Aneurysm ([facility]) cranial x2 (3mm) Rcere, L temp Colon polyp Endometriosis Epilepsy ([facility]) Fatigue Hemiparesis of left nondominant side as late effect of cerebral infarction ([facility]) 02/08/2021 Hypothyroid tsh> 150 off med Lung nodule Mild depression Polyneuropathy 07/2012 of legs by emg/nct Stroke ([facility]) 09/2019 right MCA PAST SURGICAL HISTORY Procedure [...] The patient (more content not included)... Normal [facility] HISTORY PHYSICALon HISTORY PHYSICAL HNO ID: [id number] Author: ELIA CARRENO II, MD Service: Hospital Medicine Author Type: Physician Type: H&P Filed: 12/15/2024 01:36 Note Text: DEPARTMENT OF HOSPITAL MEDICINE HISTORY AND PHYSICAL EXAM SERVICE DATE: 12/15/2024 SERVICE TIME: 1:09 AM Primary Care Physician: No primary care provider on file. NIGHT AND WEEKEND COVERAGE: From 7am - 7pm, please call Sound attending After 7pm, please call cross cover pager #[phone] ==== ASSESSMENT AND PLAN: 1) UTI w/ [...] 13.6 platele (more content not included)... Normal [facility] Urinalysis complete panel (U )on 12-14-2024 Bacteria LM.HPF (Urine sed) [#/Area] Few Abnormal None Seen [facility] Comment on above: Order Comment: Speci men Type: BLOOD SPECIMEN Ordering Facility: [facility] Address: [address] [place] [address] Performed By: #### 3 0471-7 #### [facility] CLIA [id number] [facility] [address] [address] [place] Bilirubin Ql (U) Negative Normal Negative [facility] Comment on above: Order Comment: Speci men Type: BLOOD SPECIMEN Ordering Facility: [facility] Address: [address] [place] [address] Performed By: #### 3 0471-7 #### [facility] CLIA [id number] [address] [place], [place] [id number] [place] CALCIUM OXALATE CRYSTALS (UA) Few Abnormal None Seen [facility] Comment on above: Order Comment: Speci men Type: BLOOD SPECIMEN Ordering Facility: [facility] Address: [address] [place] [address] Performed By: #### 3 0471-7 #### [facility] CLIA [id number] [address] [place] [address] [place] Clarity (Unsp spec) Turbid Abnormal Clear [facility] Comment on above: Order Comment: Speci men Type: BLOOD SPECIMEN Ordering Facility: [facility] Address: [address] [place] [address] Performed By: #### 3 0471-7 #### [facility] CLIA [id number] [address] [place], [place] [id number] [place] Color (U) Yellow Normal yellow [facility] Comment on above: Order Comment: Speci men Type: BLOOD SPECIMEN Ordering Facility: [facility] Address: [address] [place] [address] Performed By: #### 3 0471-7 #### [facility] CLIA [id number] [address] [place], [place] [id number] [place] Epithelial cells LM.HPF (Urine sed) [#/Area] Few Normal [facility] Comment on above: Order Comment: Speci men Type: BLOOD SPECIMEN Ordering Facility: [facility] Address: [address] [place] [address] Performed By: #### 3 0471-7 #### [facility] CLIA [id number] [address] [place] [address] [place] Glucose Test strip (U) [Mass/Vol] Negative Normal Trace, Negative [facility] Comment on above: Order Comment: Speci men Type: BLOOD SPECIMEN Ordering Facility: [facility] Address: [address] [place] [address] Performed By: #### 3 0471-7 #### [facility] CLIA [id number] [address] [place] [address] [place] Hemoglobin Ql (U) 1+ Abnormal Negative, Trace [facility] Comment on above: Order Comment: Speci men Type: BLOOD SPECIMEN Ordering Facility: [facility] Address: [address] [place] [address] Performed By: #### 3 0471-7 #### [facility] CLIA [id number] [address] [place] [address] [place] Ketones Ql (U) 3+ Abnormal Negative, Trace [facility] Comment on above: Order Comment: Speci men Type: BLOOD SPECIMEN Ordering Facility: [facility] Address: [address] [place] [address] Performed By: #### 3 0471-7 #### [facility] CLIA [id number] [address] [place] [address] [place] Leukocyte esterase Test strip Ql (U) Negative Normal Negative, 25 Chong/uL [facility] Comment on above: Order Comment: Speci men Type: BLOOD SPECIMEN Ordering Facility: [facility] Address: [address] [place] [address] Performed By: #### 3 0471-7 #### [facility] CLIA [id number] [address] [place] [address] [place] Nitrite Ql (U) 2+ Abnormal Negative [facility] Comment on above: Order Comment: Speci men Type: BLOOD SPECIMEN Ordering Facility: [facility] Address: [address] [place] [address] Performed By: #### 3 0471-7 #### [facility] CLIA [id number] [address] [place] [address] [place] pH (U) 6.0 [pH] Normal 5.0-8.0 [facility] Comment on above: Order Comment: Speci men Type: BLOOD SPECIMEN Ordering Facility: [facility] Address: [address] [place] [address] Performed By: #### 3 0471-7 #### [facility] CLIA [id number] [address] [place] [address] [place] Protein (U) [Mass/Vol] 2+ Abnormal Trace , Negative [facility] Comment on above: Order Comment: Speci men Type: BLOOD SPECIMEN Ordering Facility: [facility] Address: [address] [place] [address] Performed By: #### 3 0471-7 #### [facility] CLIA [id number] [address] [place] [address] [place] RBC LM.HPF (Urine sed) [#/Area] 3-5 /HPF Abnormal 0-3 /HPF [facility] Comment on above: Order Comment: Speci men Type: BLOOD SPECIMEN Ordering Facility: [facility] Address: [address] [place] [address] Performed By: #### 3 0471-7 #### [facility] CLIA [id number] [address] [place] [address] [place] Specific gravity (U) [Rel density] >1.040 High 1.005-1.030 [facility] Comment on above: Order Comment: Speci men Type: BLOOD SPECIMEN Ordering Facility: [facility] Address: [address] [place] [address] Performed By: #### 3 0471-7 #### [facility] CLIA [id number] [address] [place] [address] [place] Urobilinogen Ql (U) Normal Normal Normal [facility] Comment on above: Order Comment: Speci men Type: BLOOD SPECIMEN Ordering Facility: [facility] Address: [address] [place] [address] Performed By: #### 3 0471-7 #### [facility] CLIA [id number] [address] [place] [address] [place] WBC LM.HPF (Urine sed) [#/Area] 0-5 /HPF Normal 0-5 /HPF [facility] Comment on above: Order Comment: Speci men Type: BLOOD SPECIMEN Ordering Facility: [facility] Address: [address] [place] [address] Performed By: #### 3 0471-7 #### [facility] CLIA [id number] [address] [place] [address] [place] XR CHEST 2V [...] bony density. IMPRESSION: No acute radiographic abnormality. Automatic Screwmaker: ALEXANDRO Transcribe Date/Time: Dec 14 2024 3:37P Dictated by : MARCUS RAMESH MD This examination was interpreted and the report reviewed and electronically signed by: MARCUS RAMESH MD on Dec 14 2024 3:39PM EST [id number] Normal [facility] levETIRAcetam SerPl-mCncon 0 12-14-2024 levETIRAcetam [Mass/Vol] ug/mL Low 12.0-46.0 [facility] Comment on above: Order Comment: Speci men Type: BLOOD SPECIMENOrdering Facility: [facility] Address: [address] [place] [address] Result Comment: This test is not suitable [...] and its performance characteristics determined by the [facility] Department of Pathology and Laboratory Medicine. It has not been cleared or approved by the FDA. The [facility] Department of Pathology and Laboratory Medicine is regulated under CLIA as qualified to perform high-complexity testing. This test is used for clinical purposes. It should not be regarded as investigational or for research. Performed By: #### 3 0471-7 ####[facility] [id number] [facility] [id number] [address] [place] Blood urea nitrogen (BUN)/cr eatinine ratioOrdered By: Robb Barnes on 11-27-2024 Urea nitrogen/Creatinine [Mass ratio] 36.1 mg/mg High 10-20 [facility] Carbon dioxide measurementOr dered By: Robb Barnes on 11-27-2024 CO2 [Moles/Vol] 23.0 mmol/L 21.0-32.0 [facility] Chloride measurementOrdered By: Robb Barnes on 11-27-2024 Chloride [Moles/Vol] 110 mmol/L High 98-107 [facility] Estimated glomerular filtrat ion rate (GFR) AmericanOrdered By: Robb Barnes on 11-27-2024 Estimated GFR (MDRD) Amer 166 mL/min >60 [facility] Comment on above: GFR Calc Glomerular filtration rate ( GFR) estimationOrdered By: Robb Barnes on 11-27-2024 Estimated GFR (MDRD) Non-Af Amer 138 mL/min >60 [facility] Comment on above: Non- GFR Calc GFR/1.73 sq M.predicted among non-blacks MDRD (S/P/Bld) [Vol rate/Area] 138 mL/min/{1.73_m2} >60 [facility] Comment on above: Non- GFR Calc Glucose measurementOrdered B y: Robb Barnes on 11-27-2024 Glucose [Mass/Vol] 103 mg/dL 74-106 [facility] Comment on above: Fasting Glucose resu lt from 100 to 125 mg/dL suggests IMPAIRED HOMEOSTASIS per A.D.A. criteria. Potassium measurementOrdered By: Robb Barnes on 11-27-2024 Potassium [Moles/Vol] 3.8 mmol/L 3.5-5.1 [facility] Serum anion gap measurementO rdered By: Robb Barnes on 11-27-2024 Anion gap [Moles/Vol] 7 mmol/L 5-15 [facility] Serum or plasma calcium claudette urement (mass/volume)Ordered By: Robb Barnes on 11-27-2024 Calcium [Mass/Vol] 9.6 mg/dL 8.5-10.1 [facility] Serum or plasma creatinine m easurement (mass/volume)Ordered By: Robb Barnes on 11-27-2024 Creatinine [Mass/Vol] 0.47 mg/dL Low 0.55-1.02 [facility] Comment on above: The validity of the calculated GFR & GFRAA in patients over 70 years has not been determined. Clinical correlation is essential. Serum or plasma urea nitroge n measurement (mass/volume)Ordered By: Robb Barnes on 11-27-2024 Urea nitrogen [Mass/Vol] 17 mg/dL 7-18 [facility] Sodium levelOrdered By: Vern Barnes on 11-27-2024 Sodium [Moles/Vol] 140 mmol/L 136-145 [facility] Valproate levelOrdered By: Darlin Barnes on 11-27-2024 Valproic Acid (Depakene) Level 60 ug/mL 50-100 [facility] Albumin to globulin ratioOrd ered By: Robb Barnes on 10-27-2024 Albumin/Globulin [Mass ratio] 0.8 {ratio} Low 0.9-2.4 [facility] Bilirubin, totalOrdered By: Robb Barnes on 10-27-2024 Bilirubin [Mass/Vol] 0.20 mg/dL 0.20-1.00 [facility] Comment on above: For patients on eltr ombopag therapy, use of Dimension [place] TBIL is not recommended. Blood urea nitrogen (BUN)/cr eatinine ratioOrdered By: Robb Barnes on 10-27-2024 Urea nitrogen/Creatinine [Mass ratio] 51.7 mg/mg High 10-20 [facility] Carbon dioxide measurementOr dered By: Robb Barnes on 10-27-2024 CO2 [Moles/Vol] 22.0 mmol/L 21.0-32.0 [facility] Chloride measurementOrdered By: Robb Barnes on 10-27-2024 Chloride [Moles/Vol] 113 mmol/L High 98-107 [facility] Erythrocyte distribution wid th (RBC) [Ratio]Ordered By: Robb Barnes on 10-27-2024 Erythrocyte distribution width (RBC) [Entitic vol] 58.6 fL High 35.1-43.9 [facility] Erythrocyte distribution wid th ratioOrdered By: Robb Barnes on 10-27-2024 Erythrocyte distribution width (RBC) [Ratio] 14.3 % 11.6-14.6 [facility] Estimated glomerular filtrat ion rate (GFR) AmericanOrdered By: Robb Barnes on 10-27-2024 Estimated GFR (MDRD) Amer 161 mL/min >60 [facility] Comment on above: GFR Calc Glomerular filtration rate ( GFR) estimationOrdered By: Robb Barnes on 10-27-2024 Estimated GFR (MDRD) Non-Af Amer 133 mL/min >60 [facility] Comment on above: Non- GFR Calc Glucose measurementOrdered B y: Robb Barnes on 10-27-2024 Glucose [Mass/Vol] 93 mg/dL 74-106 [facility] Hematocrit Auto (Bld) [Volum e fraction]Ordered By: Robb Barnes on 10-27-2024 Hematocrit (Bld) [Volume fraction] 34.7 % Low 37-47 [facility] Hemoglobin measurementOrdere d By: Robb Barnes on 10-27-2024 Hemoglobin (Bld) [Mass/Vol] 10.8 g/dL Low 12.0-15.0 [facility] High density lipoprotein (HD L) measurementOrdered By: Robb Barnes on 10-27-2024 Cholesterol in HDL [Mass/Vol] 48 mg/dL >40 [facility] Comment on above: The drugs N-Acetylcy steine and Metamizole may falsely depress this assay. Reference Range HDL <40 mg/dL Low HDL Cholesterol HDL >or= 60 mg/dL High HDL Cholesterol Iron (Unsp spec) [Mass/Mass] Ordered By: Robb Barnes on 10-27-2024 Iron [Mass/Vol] 47 ug/dL Low 50-170 [facility] Laboratory - Chemistry and C hemistry - challengeOrdered By: Robb Barnes on 10-27-2024 AST [Catalytic activity/Vol] 20 U/L 15-37 [facility] Low density lipoprotein (LDL ) cholesterol measurementOrdered By: Robb Barnes on 10-27-2024 Cholesterol in LDL [Mass/Vol] 64 mg/dL 0-130 [facility] MCV (mean corpuscular volume ) determinationOrdered By: Robb Barnes on 10-27-2024 MCV (RBC) [Entitic vol] 109.5 fL High 81-99 [facility] Magnesium measurementOrdered By: Robb Barnes on 10-27-2024 Magnesium [Mass/Vol] 2.2 mg/dL 1.6-2.6 [facility] Mean corpuscular hemoglobin (MCH) determinationOrdered By: Robb Barnes on 10-27-2024 MCH (RBC) [Entitic mass] 34.1 pg High 27.0-32.0 [facility] Mean corpuscular hemoglobin concentration (MCHC) determinationOrdered By: Robb Barnes on 10-27-2024 MCHC (RBC) [Mass/Vol] 31.1 g/dL Low 32-36 [facility] Mean platelet volume determi nationOrdered By: Robb Barnes on 10-27-2024 Platelet mean volume (Bld) [Entitic vol] 9.2 fL 6.2-12.0 [facility] Platelet countOrdered By: Ramila Barnes on 10-27-2024 Platelets (Bld) [#/Vol] 128 10*3/uL Low 150-450 [facility] Potassium measurementOrdered By: Robb Barnes on 10-27-2024 Potassium [Moles/Vol] 4.1 mmol/L 3.5-5.1 [facility] RBC Auto (Bld) [#/Vol]Ordere d By: Robb Barnes on 10-27-2024 RBC (Bld) [#/Vol] 3.17 10*6/uL Low 4.2-5.4 [facility] Serum anion gap measurementO rdered By: Robb Barnes on 10-27-2024 Anion gap [Moles/Vol] 6 mmol/L 5-15 [facility] Serum globulin measurementOr dered By: Robb Barnes on 10-27-2024 Globulin (S) [Mass/Vol] 3.7 g/dL 2.2-4.2 [facility] Serum or plasma alanine timmons otransferase (ALT) measurementOrdered By: Robb Barnes on 10-27-2024 ALT [Catalytic activity/Vol] 15 U/L 13-56 [facility] Serum or plasma albumin claudette urement (mass/volume)Ordered By: Robb Barnes on 10-27-2024 Albumin [Mass/Vol] 2.8 g/dL Low 3.2-5.0 [facility] Serum or plasma alkaline karson sphatase measurementOrdered By: Robb Barnes on 10-27-2024 ALP [Catalytic activity/Vol] 52 U/L 45-117 [facility] Serum or plasma calcium claudette urement (mass/volume)Ordered By: Robb Barnes on 10-27-2024 Calcium [Mass/Vol] 9.3 mg/dL 8.5-10.1 [facility] Serum or plasma cholesterol measurement (mass/volume)Ordered By: Robb Barnes on 10-27-2024 Cholesterol [Mass/Vol] 135 mg/dL <200 [facility] Comment on above: <200 mg/dL Desirable 200-240 mg/dL Borderline >240 mg/dL High Risk Serum or plasma creatinine m easurement (mass/volume)Ordered By: Robb Barnes on 10-27-2024 Creatinine [Mass/Vol] 0.48 mg/dL Low 0.55-1.02 [facility] Comment on above: The validity of the calculated GFR & GFRAA in patients over 70 years has not been determined. Clinical correlation is essential. Serum or plasma urea nitroge n measurement (mass/volume)Ordered By: Robb Barnes on 10-27-2024 Urea nitrogen [Mass/Vol] 25 mg/dL High 7-18 [facility] Sodium levelOrdered By: Vern Barnes on 10-27-2024 Sodium [Moles/Vol] 141 mmol/L 136-145 [facility] Total proteinOrdered By: Renan Barnes on 10-27-2024 Protein [Mass/Vol] 6.5 g/dL 6.4-8.2 [facility] Triglycerides measurementOrd ered By: Robb Barnes on 10-27-2024 Triglyceride [Mass/Vol] 116 mg/dL <199 [facility] Comment on above: The drugs N-Acetylcy steine and Metamizole may falsely depress this assay.Serum Triglycerides Reference Interval Normal <150 mg/dL Borderline high 150 - 199 mg/dL High 200 - 499 mg/dL Very High > or = 500 mg/dL Very low density lipoprotein (VLDL) cholesterol measurementOrdered By: Robb Barnes on 10-27-2024 VLDL Cholesterol 23 mg/dL 5-40 [facility] White blood cell (WBC) count Ordered By: Robb Barnes on 10-27-2024 WBC (Bld) [#/Vol] 5.6 10*3/uL 4.4-11.0 [facility] Serum or plasma thyroid stim ulating hormone (TSH) measurement (units/volume)Ordered By: Robb Barnes on 12-24-2023 TSH Qn 0.30 uIU/mL 0.358-3.74 [facility] Serum or plasma thyroxine (T 4) measurement (mass/volume)Ordered By: Robb Barnes on 11-13-2023 T4 [Mass/Vol] 9.1 ug/dL 4.8-13.9 [facility] Serum or plasma triiodothyro nine measurement by immunoassay (mass/volume)Ordered By: Robb Barnes on 11-13-2023 T3 IA [Mass/Vol] 0.82 ng/mL 0.6-1.81 [facility] Basophil percentageOrdered B y: Robb Barnes on 11-08-2023 Bilirubin [Mass/Vol] 0.30 mg/dL 0.20-1.00 [facility] Comment on above: For patients on eltr ombopag therapy, use of Dim[place] TBIL is not recommended. Chloride [Moles/Vol] 108 mmol/L 98-107 [facility] Glucose [Mass/Vol] 94 mg/dL 74-106 [facility] Hemoglobin (Bld) [Mass/Vol] 12.0 g/dL 12.0-15.0 [facility] Potassium [Moles/Vol] 4.0 mmol/L 3.5-5.1 [facility] Protein [Mass/Vol] 6.6 g/dL 6.4-8.2 [facility] Sodium [Moles/Vol] 139 mmol/L 136-145 [facility] WBC (Bld) [#/Vol] 6.2 10*3/uL 4.4-11.0 [facility] Determination of erythrocyte mean corpuscular volume (MCV)Ordered By: Robb Barnes on 11-08-2023 MCV (RBC) [Entitic vol] 102.0 fL 81-99 [facility] Erythrocyte distribution wid th ratioOrdered By: Robb Barnes on 11-08-2023 Erythrocyte distribution width (RBC) [Ratio] 11.8 % 11.6-14.6 [facility] Erythrocyte distribution wid th standard deviationOrdered By: Robb Barnes on 11-08-2023 Erythrocyte distribution width (RBC) [Entitic vol] 44.2 fL 35.1-43.9 [facility] Erythrocyte sedimentation ra teOrdered By: Robb Barnes on 11-08-2023 ESR (Bld) [Velocity] 6 mm/h 0-30 [facility] Hematocrit Auto (Bld) [Volum e fraction]Ordered By: Robb Barnes on 11-08-2023 Hematocrit (Bld) [Volume fraction] 36.4 % 37-47 [facility] Laboratory - Chemistry and C hemistry - challengeOrdered By: Robb Barnes on 11-08-2023 Albumin/Globulin [Mass ratio] 0.8 {ratio} 0.9-2.4 [facility] ALP [Catalytic activity/Vol] 71 U/L 45-117 [facility] ALT [Catalytic activity/Vol] 14 U/L 13-56 [facility] CO2 [Moles/Vol] 28.0 mmol/L 21.0-32.0 [facility] Globulin (S) [Mass/Vol] 3.7 g/dL 2.2-4.2 [facility] Urea nitrogen/Creatinine [Mass ratio] 29.9 mg/mg 10-20 [facility] Laboratory - Hematology and Cell countsOrdered By: Robb Barnes on 11-08-2023 MCH (RBC) [Entitic mass] 33.6 pg 27.0-32.0 [facility] MCHC (RBC) [Mass/Vol] 33.0 g/dL 32-36 [facility] Platelets (Bld) [#/Vol] 150 10*3/uL 150-450 [facility] No Panel InformationOrdered By: Robb Barnes on 11-08-2023 Estimated GFR (MDRD) Amer 95 mL/min >60 [facility] Comment on above: GFR Calc Estimated GFR (MDRD) Non-Af Amer 78 mL/min >60 [facility] Comment on above: Non- GFR Calc Platelet mean volume Marcelo-Ec ker (Bld) [Entitic vol]Ordered By: Robb Barnes on 11-08-2023 Platelet mean volume (Bld) [Entitic vol] 9.1 fL 6.2-12.0 [facility] RBC Auto (Bld) [#/Vol]Ordere d By: Robb Barnes on 11-08-2023 RBC (Bld) [#/Vol] 3.57 10*6/uL 4.2-5.4 [facility] Serum or plasma calcium claudette urement (mass/volume)Ordered By: Robb Barnes on 11-08-2023 Calcium [Mass/Vol] 9.3 mg/dL 8.5-10.1 [facility] Serum or plasma creatinine m easurement (mass/volume)Ordered By: Robb Barnes on 11-08-2023 Creatinine [Mass/Vol] 0.77 mg/dL 0.55-1.02 [facility] Comment on above: The validity of the calculated GFR & GFRAA in patients over 70 years has not been determined. Clinical correlation is essential. Serum or plasma thyroid stim ulating hormone (TSH) measurement (units/volume)Ordered By: Robb Barnes on 11-08-2023 TSH Qn 9.02 uIU/mL 0.358-3.74 [facility] Serum or plasma urea nitroge n measurement (mass/volume)Ordered By: Robb Barnes on 11-08-2023 Urea nitrogen [Mass/Vol] 23 mg/dL 7-18 [facility] Thin prep Papanicolaou smear with manual screeningOrdered By: Robb Barnes on 11-08-2023 Thin prep Papanicolaou smear with manual screening 2.9 g/dL 3.2-5.0 [facility] Thin prep Papanicolaou smear with manual screening 13 U/L 15-37 [facility] Thin prep Papanicolaou smear with manual screening 3 5-15 [facility] Laboratory - Chemistry and C hemistry - challengeOrdered By: Robb Barnes on 08-24-2023 T4 [Mass/Vol] 8.5 ug/dL 4.8-13.9 [facility] No Panel InformationOrdered By: Robb Barens on 08-24-2023 Thyroid Stimulating Hormone (TSH) 1.26 uIU/mL 0.358-3.74 [facility] Total Triiodothyronine 0.94 ng/mL 0.6-1.81 [facility] Basophil percentageOrdered B y: Robb Barnes on 08-03-2023 Ammonia (P) [Moles/Vol] 46.0 umol/L 11-32 [facility] Iron measurement (mass/mass) Ordered By: Robb Barnes on 08-03-2023 Iron (Unsp spec) [Mass/Mass] 99 ug/dL 50-170 [facility] Laboratory - Chemistry and C hemistry - challengeOrdered By: Robb Barnes on 08-03-2023 Magnesium [Mass/Vol] 2.0 mg/dL 1.6-2.6 [facility] Transferrin [Mass/Vol] 179 mg/dL 192-364 [facility] Comment on above: Performed at: [place] [id number] Director: Angel Franklin PhD, Phone: [phone] No Panel InformationOrdered By: Robb Barnes on 08-03-2023 Total Iron Binding Capacity 227 ug/dL 250-450 [facility] Valproic Acid (Depakene) Level 74 ug/mL 50-100 [facility] Serum or plasma ferritin dionisio surement (mass/volume)Ordered By: Robb Barnes on 08-03-2023 Ferritin [Mass/Vol] 126 ng/mL 8-252 [facility] Serum or plasma iron saturat ion measurement (mass fraction)Ordered By: Robb Barnes on 08-03-2023 Iron saturation [Mass fraction] 43.6 % 15.0-55.0 [facility] No Panel InformationOrdered By: Robb Barnes on 06-07-2023 Thyroid Stimulating Hormone (TSH) 2.42 uIU/mL 0.358-3.74 [facility] Basophil percentageOrdered B y: Robb Barnes on 03-20-2023 Bilirubin [Mass/Vol] 0.30 mg/dL 0.20-1.00 [facility] Comment on above: For patients on eltr ombopag therapy, use of Dimension [place] TBIL is not recommended. Chloride [Moles/Vol] 112 mmol/L 98-107 [facility] Cholesterol [Mass/Vol] 128 mg/dL <200 [facility] Comment on above: <200 mg/dL Desirable 200-240 mg/dL Borderline >240 mg/dL High Risk Glucose [Mass/Vol] 76 mg/dL 74-106 [facility] Potassium [Moles/Vol] 4.3 mmol/L 3.5-5.1 [facility] Protein [Mass/Vol] 5.9 g/dL 6.4-8.2 [facility] Sodium [Moles/Vol] 143 mmol/L 136-145 [facility] Triglyceride [Mass/Vol] 98 mg/dL <199 [facility] Comment on above: The drugs N-Acetylcy steine and Metamizole may falsely depress this assay.Serum Triglycerides Reference Interval Normal <150 mg/dL Borderline high 150 - 199 mg/dL High 200 - 499 mg/dL Very High > or = 500 mg/dL WBC (Bld) [#/Vol] 5.9 10*3/uL 4.4-11.0 [facility] Blood erythrocytes count (nu mber/volume)Ordered By: Robb Barnes on 03-20-2023 RBC (Bld) [#/Vol] 3.49 10*6/uL 4.2-5.4 [facility] Blood hemoglobin measurement (mass/volume)Ordered By: Robb Barnes on 03-20-2023 Hemoglobin (Bld) [Mass/Vol] 12.0 g/dL 12.0-15.0 [facility] Blood platelet mean volumeOr dered By: Robb Barnes on 03-20-2023 Platelet mean volume (Bld) [Entitic vol] 9.1 fL 6.2-12.0 [facility] Determination of erythrocyte mean corpuscular volume (MCV)Ordered By: Robb Barnes on 03-20-2023 MCV (RBC) [Entitic vol] 104.3 fL 81-99 [facility] Erythrocyte sedimentation ra teOrdered By: Robb Barnes on 03-20-2023 ESR (Bld) [Velocity] 6 mm/h 0-30 [facility] Hematocrit Auto (Bld) [Volum e fraction]Ordered By: Robb Barnes on 03-20-2023 Hematocrit (Bld) [Volume fraction] 36.4 % 37-47 [facility] Laboratory - Chemistry and C hemistry - challengeOrdered By: Robb Barnes on 03-20-2023 ALP [Catalytic activity/Vol] 63 U/L 45-117 [facility] ALT [Catalytic activity/Vol] 13 U/L 13-56 [facility] CO2 [Moles/Vol] 26.0 mmol/L 21.0-32.0 [facility] Globulin (S) [Mass/Vol] 3.5 g/dL 2.2-4.2 [facility] Urea nitrogen/Creatinine [Mass ratio] 29.9 mg/mg 10-20 [facility] Laboratory - Hematology and Cell countsOrdered By: Robb Barnes on 03-20-2023 Erythrocyte distribution width (RBC) [Entitic vol] 46.9 fL 35.1-43.9 [facility] Erythrocyte distribution width (RBC) [Ratio] 12.4 % 11.6-14.6 [facility] MCH (RBC) [Entitic mass] 34.4 pg 27.0-32.0 [facility] MCHC Auto (RBC) [Mass/Vol]Or dered By: Robb Barnes on 03-20-2023 MCHC (RBC) [Mass/Vol] 33.0 g/dL 32-36 [facility] No Panel InformationOrdered By: Robb Barnes on 03-20-2023 Estimated GFR (MDRD) Amer 95 mL/min >60 [facility] Comment on above: GFR Calc Estimated GFR (MDRD) Non-Af Amer 79 mL/min >60 [facility] Comment on above: Non- GFR Calc Thyroid Stimulating Hormone (TSH) 4.07 uIU/mL 0.358-3.74 [facility] Vitamin D 25-Hydroxy 73.1 ng/mL [facility] Comment on above: Vitamin D 25(OH) Sta tus Range Deficiency <20 ng/mL (50nmol/L) Insufficiency 20 - 30 ng/mL (50 - 75 nmol/L) Sufficiency 30 - 100 ng/mL (75 - 250 nmol/L) Toxicity >100 ng/mL (>250 nmol/L) Platelets bldOrdered By: Renan Barnes on 03-20-2023 Platelets (Bld) [#/Vol] 108 10*3/uL 150-450 [facility] Serum or plasma albumin claudette urement (mass/volume)Ordered By: Robb Barnes on 03-20-2023 Albumin [Mass/Vol] 2.4 g/dL 3.2-5.0 [facility] Serum or plasma albumin/glob ulin mass ratioOrdered By: Robb Barnes on 03-20-2023 Albumin/Globulin [Mass ratio] 0.7 {ratio} 0.9-2.4 [facility] Serum or plasma calcium claudette urement (mass/volume)Ordered By: Robb Barnes on 03-20-2023 Calcium [Mass/Vol] 8.7 mg/dL 8.5-10.1 [facility] Serum or plasma cholesterol in HDL measurement (mass/volume)Ordered By: Robb Barnes on 03-20-2023 Cholesterol in HDL [Mass/Vol] 36 mg/dL >40 [facility] Comment on above: The drugs N-Acetylcy steine and Metamizole may falsely depress this assay. Reference Range HDL <40 mg/dL Low HDL Cholesterol HDL >or= 60 mg/dL High HDL Cholesterol Serum or plasma cholesterol in VLDL measurement (mass/volume)Ordered By: Robb Barnes on 03-20-2023 Cholesterol in VLDL [Mass/Vol] 20 mg/dL 5-40 [facility] Serum or plasma creatinine m easurement (mass/volume)Ordered By: Robb Barnes on 03-20-2023 Creatinine [Mass/Vol] 0.77 mg/dL 0.55-1.02 [facility] Comment on above: The validity of the calculated GFR & GFRAA in patients over 70 years has not been determined. Clinical correlation is essential. Serum or plasma low density lipoprotein (LDL) cholesterol measurement (mass/volume)Ordered By: Robb Barnes on 03-20-2023 Cholesterol in LDL [Mass/Vol] 72 mg/dL 0-130 [facility] Serum or plasma urea nitroge n measurement (mass/volume)Ordered By: Robb Barnes on 03-20-2023 Urea nitrogen [Mass/Vol] 23 mg/dL 7-18 [facility] Thin prep Papanicolaou smear with manual screeningOrdered By: Robb Barnes on 03-20-2023 Thin prep Papanicolaou smear with manual screening 17 U/L 15-37 [facility] Thin prep Papanicolaou smear with manual screening 5 5-15 [facility] Basophil percentageOrdered B y: Robb Barnes on 01-04-2023 Chloride [Moles/Vol] 111 mmol/L 98-107 [facility] Cholesterol [Mass/Vol] 124 mg/dL <200 [facility] Comment on above: <200 mg/dL Desirable 200-240 mg/dL Borderline >240 mg/dL High Risk Glucose [Mass/Vol] 86 mg/dL 74-106 [facility] Potassium [Moles/Vol] 3.8 mmol/L 3.5-5.1 [facility] Sodium [Moles/Vol] 143 mmol/L 136-145 [facility] Triglyceride [Mass/Vol] 166 mg/dL <199 [facility] Comment on above: The drugs N-Acetylcy steine and Metamizole may falsely depress this assay.Serum Triglycerides Reference Interval Normal <150 mg/dL Borderline high 150 - 199 mg/dL High 200 - 499 mg/dL Very High > or = 500 mg/dL WBC (Bld) [#/Vol] 5.9 10*3/uL 4.4-11.0 [facility] Blood erythrocytes count (nu mber/volume)Ordered By: Robb Barnes on 01-04-2023 RBC (Bld) [#/Vol] 3.20 10*6/uL 4.2-5.4 [facility] Blood hemoglobin measurement (mass/volume)Ordered By: Robb Barnes on 01-04-2023 Hemoglobin (Bld) [Mass/Vol] 10.8 g/dL 12.0-15.0 [facility] Blood platelet mean volumeOr dered By: Robb Barnes on 01-04-2023 Platelet mean volume (Bld) [Entitic vol] 9.0 fL 6.2-12.0 [facility] Determination of erythrocyte mean corpuscular volume (MCV)Ordered By: Robb Barnes on 01-04-2023 MCV (RBC) [Entitic vol] 103.4 fL 81-99 [facility] Hematocrit Auto (Bld) [Volum e fraction]Ordered By: Robb Barnes on 01-04-2023 Hematocrit (Bld) [Volume fraction] 33.1 % 37-47 [facility] Laboratory - Chemistry and C hemistry - challengeOrdered By: Robb Barnes on 01-04-2023 CO2 [Moles/Vol] 25.0 mmol/L 21.0-32.0 [facility] Magnesium [Mass/Vol] 2.0 mg/dL 1.6-2.6 [facility] Urea nitrogen/Creatinine [Mass ratio] 30.1 mg/mg 10-20 [facility] Laboratory - Hematology and Cell countsOrdered By: Robb Barnes on 01-04-2023 Erythrocyte distribution width (RBC) [Entitic vol] 45.2 fL 35.1-43.9 [facility] Erythrocyte distribution width (RBC) [Ratio] 11.9 % 11.6-14.6 [facility] MCH (RBC) [Entitic mass] 33.8 pg 27.0-32.0 [facility] MCHC Auto (RBC) [Mass/Vol]Or dered By: Robb Barnes on 01-04-2023 MCHC (RBC) [Mass/Vol] 32.6 g/dL 32-36 [facility] No Panel InformationOrdered By: Robb Barnes on 01-04-2023 Estimated GFR (MDRD) Amer 119 mL/min >60 [facility] Comment on above: GFR Calc Estimated GFR (MDRD) Non-Af Amer 99 mL/min >60 [facility] Comment on above: Non- GFR Calc Thyroid Stimulating Hormone (TSH) 0.32 uIU/mL 0.358-3.74 [facility] Platelets bldOrdered By: Renan Banres on 01-04-2023 Platelets (Bld) [#/Vol] 141 10*3/uL 150-450 [facility] Serum or plasma calcium claudette urement (mass/volume)Ordered By: Robb Barnes on 01-04-2023 Calcium [Mass/Vol] 9.0 mg/dL 8.5-10.1 [facility] Serum or plasma cholesterol in HDL measurement (mass/volume)Ordered By: Robb Barnes on 01-04-2023 Cholesterol in HDL [Mass/Vol] 32 mg/dL >40 [facility] Comment on above: The drugs N-Acetylcy steine and Metamizole may falsely depress this assay. Reference Range HDL <40 mg/dL Low HDL Cholesterol HDL >or= 60 mg/dL High HDL Cholesterol Serum or plasma cholesterol in VLDL measurement (mass/volume)Ordered By: Robb Barnes on 01-04-2023 Cholesterol in VLDL [Mass/Vol] 33 mg/dL 5-40 [facility] Serum or plasma creatinine m easurement (mass/volume)Ordered By: Robb Barnes on 01-04-2023 Creatinine [Mass/Vol] 0.63 mg/dL 0.55-1.02 [facility] Comment on above: The validity of the calculated GFR & GFRAA in patients over 70 years has not been determined. Clinical correlation is essential. Serum or plasma low density lipoprotein (LDL) cholesterol measurement (mass/volume)Ordered By: Robb Barnes on 01-04-2023 Cholesterol in LDL [Mass/Vol] 59 mg/dL 0-130 [facility] Serum or plasma urea nitroge n measurement (mass/volume)Ordered By: Robb Barnes on 01-04-2023 Urea nitrogen [Mass/Vol] 19 mg/dL 7-18 [facility] Thin prep Papanicolaou smear with manual screeningOrdered By: Robb Barnes on 01-04-2023 Thin prep Papanicolaou smear with manual screening 7 5-15 [facility] No Panel Informationon 09-13 Valproic Acid (Depakene) Level 76 ug/mL 50-100 [facility] Work Phone: Basophil percentageon 2021 Bilirubin [Mass/Vol] 0.20 mg/dL 0.20-1.00 [facility] Work Phone: Comment on above: For patients on eltr ombopag therapy, use of Dim[place] TBIL is not recommended. Chloride [Moles/Vol] 106 mmol/L 98-107 [facility] Work Phone: Glucose [Mass/Vol] 66 mg/dL 74-106 [facility] Work Phone: Potassium [Moles/Vol] 3.8 mmol/L 3.5-5.1 [facility] Work Phone: [phone] Protein [Mass/Vol] 5.7 g/dL 6.4-8.2 [facility] Work Phone: Sodium [Moles/Vol] 140 mmol/L 136-145 [facility] Work Phone: [phone] WBC (Bld) [#/Vol] 8.8 10*3/uL 4.4-11.0 [facility] Work Phone: Blood erythrocytes count (nu mber/volume)on 08-03-2022 RBC (Bld) [#/Vol] 3.09 10*6/uL 4.2-5.4 [facility] Work Phone: [phone] Blood hemoglobin measurement (mass/volume)on 08-03-2022 Hemoglobin (Bld) [Mass/Vol] 10.5 g/dL 12.0-15.0 [facility] Work Phone: [phone] Blood platelet mean volumeon 08-03-2022 Platelet mean volume (Bld) [Entitic vol] 8.1 fL 6.2-12.0 [facility] Work Phone: [phone] Determination of erythrocyte mean corpuscular volume (MCV)on 08-03-2022 MCV (RBC) [Entitic vol] 106.5 fL 81-99 [facility] Work Phone: [phone] Direct bilirubinon Bilirubin.direct [Mass/Vol] 0.05 mg/dL 0.00-0.30 [facility] Work Phone: Hematocrit Auto (Bld) [Volum e fraction]on 08-03-2022 Hematocrit (Bld) [Volume fraction] 32.9 % 37-47 [facility] Work Phone: [phone] INR in Blood by Coagulation assayon 08-03-2022 INR Coag (Bld) [Relative time] 1.0 {INR} [facility] Work Phone: [phone] Laboratory - Chemistry and C hemistry - challengeon 08-03-2022 ALP [Catalytic activity/Vol] 59 U/L 45-117 [facility] Work Phone: ALT [Catalytic activity/Vol] 13 U/L 13-56 [facility] Work Phone: [phone] CO2 [Moles/Vol] 28.0 mmol/L 21.0-32.0 [facility] Work Phone: [phone] Globulin (S) [Mass/Vol] 3.8 g/dL 2.2-4.2 [facility] Work Phone: Urea nitrogen/Creatinine [Mass ratio] 31.8 mg/mg 10-20 [facility] Work Phone: Laboratory - Coagulationon 1 aPTT Coag (Bld) [Time] 27.0 s 24[facility]1-[facility] Work Phone: PT Coag (PPP) [Time] 12.7 s 11.7-14.[address] [facility] Work Phone: Laboratory - Hematology and Cell countson 08-03-2022 Erythrocyte distribution width (RBC) [Entitic vol] 49.4 fL 35.1-43.9 [facility] Work Phone: Erythrocyte distribution width (RBC) [Ratio] 12.9 % 11.6-14.6 [facility] Work Phone: MCH (RBC) [Entitic mass] 34.0 pg 27.0-32.0 [facility] Work Phone: MCHC Auto (RBC) [Mass/Vol]on 08-03-2022 MCHC (RBC) [Mass/Vol] 31.9 g/dL 32-36 [facility] Work Phone: No Panel Informationon 08-03 Estimated GFR (MDRD) Amer 145 mL/min >60 [facility] Work Phone: Comment on above: GFR Calc Estimated GFR (MDRD) Non-Af Amer 120 mL/min >60 [facility] Work Phone: Comment on above: Non- GFR Calc Platelets bldon 08-03-2022 Platelets (Bld) [#/Vol] 122 10*3/uL 150-450 [facility] Work Phone: Serum or plasma albumin claudette urement (mass/volume)on 08-03-2022 Albumin [Mass/Vol] 1.9 g/dL 3.2-5.0 [facility] Work Phone: [phone] Serum or plasma calcium claudette urement (mass/volume)on 08-03-2022 Calcium [Mass/Vol] 8.7 mg/dL 8.5-10.1 [facility] Work Phone: Serum or plasma creatinine m easurement (mass/volume)on 08-03-2022 Creatinine [Mass/Vol] 0.54 mg/dL 0.55-1.02 [facility] Work Phone: Comment on above: The validity of the calculated GFR & GFRAA in patients over 70 years has not been determined. Clinical correlation is essential. Serum or plasma urea nitroge n measurement (mass/volume)on 08-03-2022 Urea nitrogen [Mass/Vol] 17 mg/dL 7-18 [facility] Work Phone: Thin prep Papanicolaou smear with manual screeningon 08-03-2022 Thin prep Papanicolaou smear with manual screening 18 U/L 15-37 [facility] Work Phone: Thin prep Papanicolaou smear with manual screening 6 5-15 [facility] Work Phone: Basophil percentageon 2021 Bilirubin [Mass/Vol] 0.20 mg/dL 0.20-1.00 [facility] Work Phone: Comment on above: For patients on eltr ombopag therapy, use of Dimension [place] TBIL is not recommended. Chloride [Moles/Vol] 111 mmol/L 98-107 [facility] Work Phone: Glucose [Mass/Vol] 81 mg/dL 74-106 [facility] Work Phone: [phone] Potassium [Moles/Vol] 3.9 mmol/L 3.5-5.1 [facility] Work Phone: [phone] Protein [Mass/Vol] 5.6 g/dL 6.4-8.2 [facility] Work Phone: Sodium [Moles/Vol] 143 mmol/L 136-145 [facility] Work Phone: WBC (Bld) [#/Vol] 8.0 10*3/uL 4.4-11.0 [facility] Work Phone: Bilirubin Test strip Ql (U)o n 06-25-2022 Bilirubin Ql (U) Negative Negative [facility] Work Phone: Blood erythrocytes count (nu mber/volume)on 06-25-2022 RBC (Bld) [#/Vol] 3.52 10*6/uL 4.2-5.4 [facility] Work Phone: Blood hemoglobin measurement (mass/volume)on 06-25-2022 Hemoglobin (Bld) [Mass/Vol] 11.9 g/dL 12.0-15.0 [facility] Work Phone: Blood platelet mean volumeon 06-25-2022 Platelet mean volume (Bld) [Entitic vol] 8.4 fL 6.2-12.0 [facility] Work Phone: Determination of erythrocyte mean corpuscular volume (MCV)on 06-25-2022 MCV (RBC) [Entitic vol] 104.3 fL 81-99 [facility] Work Phone: Hematocrit Auto (Bld) [Volum e fraction]on 06-25-2022 Hematocrit (Bld) [Volume fraction] 36.7 % 37-47 [facility] Work Phone: Ketones Test strip Ql (U)on 06-25-2022 Ketones Ql (U) 5 mg/dl Negative [facility] Work Phone: Laboratory - Chemistry and C hemistry - challengeon 06-25-2022 ALP [Catalytic activity/Vol] 60 U/L 45-117 [facility] Work Phone: ALT [Catalytic activity/Vol] 20 U/L 13-56 [facility] Work Phone: CO2 [Moles/Vol] 26.0 mmol/L 21.0-32.0 [facility] Work Phone: Globulin (S) [Mass/Vol] 3.3 g/dL 2.2-4.2 [facility] Work Phone: Magnesium [Mass/Vol] 1.9 mg/dL 1.6-2.6 [facility] Work Phone: [phone] Urea nitrogen/Creatinine [Mass ratio] 36.1 mg/mg 10-20 [facility] Work Phone: [phone] Laboratory - Hematology and Cell countson 06-25-2022 Erythrocyte distribution width (RBC) [Entitic vol] 46.9 fL 35.1-43.9 [facility] Work Phone: [phone] Erythrocyte distribution width (RBC) [Ratio] 12.4 % 11.6-14.6 [facility] Work Phone: [phone] MCH (RBC) [Entitic mass] 33.8 pg 27.0-32.0 [facility] Work Phone: [phone] MCHC Auto (RBC) [Mass/Vol]on 06-25-2022 MCHC (RBC) [Mass/Vol] 32.4 g/dL 32-36 [facility] Work Phone: [phone] Nitrite Test strip Ql (U)on 06-25-2022 Nitrite Ql (U) Negative Negative [facility] Work Phone: [phone] Panel Informationon 06-25 Estimated GFR (MDRD) Amer 139 mL/min >60 [facility] Work Phone: [phone] Comment on above: GFR Calc Estimated GFR (MDRD) Non-Af Amer 115 mL/min >60 [facility] Work Phone: [phone] Comment on above: Non- GFR Calc Platelets bldon 06-25-2022 Platelets (Bld) [#/Vol] 101 10*3/uL 150-450 [facility] Work Phone: [phone] Protein Test strip Ql (U)on 06-25-2022 Protein Ql (U) 100 mg/dl Negative [facility] Work Phone: [phone] Serum or plasma albumin claudette urement (mass/volume)on 06-25-2022 Albumin [Mass/Vol] 2.3 g/dL 3.2-5.0 [facility] Work Phone: Serum or plasma albumin/glob ulin mass ratioon 06-25-2022 Albumin/Globulin [Mass ratio] 0.7 {ratio} 0.9-2.4 [facility] Work Phone: [phone] Serum or plasma calcium claudette urement (mass/volume)on 06-25-2022 Calcium [Mass/Vol] 8.4 mg/dL 8.5-10.1 [facility] Work Phone: Serum or plasma creatinine m easurement (mass/volume)on 06-25-2022 Creatinine [Mass/Vol] 0.55 mg/dL 0.55-1.02 [facility] Work Phone: Comment on above: The validity of the calculated GFR & GFRAA in patients over 70 years has not been determined. Clinical correlation is essential. Serum or plasma urea nitroge n measurement (mass/volume)on 06-25-2022 Urea nitrogen [Mass/Vol] 20 mg/dL 7-18 [facility] Work Phone: Thin prep Papanicolaou smear with manual screeningon 06-25-2022 Thin prep Papanicolaou smear with manual screening 22 U/L 15-37 [facility] Work Phone: Thin prep Papanicolaou smear with manual screening 6 5-15 [facility] Work Phone: Urine blood detectionon RBC Ql (U) 50 /ul Negative [facility] Work Phone: [phone] Urine clarityon 06-25-2022 Clarity (U) Cloudy Clear [facility] Work Phone: [phone] Urine color determinationon 06-25-2022 Color (U) SEE COMMENT BELOW Yellow [facility] Work Phone: Comment on above: Visual Urine Color: GREEN Urine glucose detectionon Glucose Ql (U) Normal mg/dl Normal [facility] Work Phone: Urine leukocyte esterase det ection by dipstickon 06-25-2022 Leukocyte esterase Test strip Ql (U) 500 /ul Negative [facility] Work Phone: Urine pHon 06-25-2022 pH (U) 7.0 [pH] 5.0 - 8.0 [facility] Work Phone: Urine specific gravity measu rementon 06-25-2022 Specific gravity (U) [Rel density] 1.020 1.002-1.030 [facility] Work Phone: [phone] Urobilinogen Auto test strip Ql (U)on 06-25-2022 Urobilinogen Ql (U) Normal mg/dl Normal [facility] Work Phone: Basophil percentageon 2021 Bilirubin [Mass/Vol] 0.10 mg/dL 0.20-1.00 [facility] Work Phone: Comment on above: For patients on eltr ombopag therapy, use of Dimension [place] TBIL is not recommended. Chloride [Moles/Vol] 109 mmol/L 98-107 [facility] Work Phone: Glucose [Mass/Vol] 84 mg/dL 74-106 [facility] Work Phone: [phone] Potassium [Moles/Vol] 4.4 mmol/L 3.5-5.1 [facility] Work Phone: [phone] Protein [Mass/Vol] 5.4 g/dL 6.4-8.2 [facility] Work Phone: [phone] Sodium [Moles/Vol] 141 mmol/L 136-145 [facility] Work Phone: [phone] WBC (Bld) [#/Vol] 7.1 10*3/uL 4.4-11.0 [facility] Work Phone: Blood erythrocytes count (nu mber/volume)on 04-21-2022 RBC (Bld) [#/Vol] 2.97 10*6/uL 4.2-5.4 [facility] Work Phone: [phone] Blood hemoglobin measurement (mass/volume)on 04-21-2022 Hemoglobin (Bld) [Mass/Vol] 10.2 g/dL 12.0-15.0 [facility] Work Phone: Blood platelet mean volumeon 04-21-2022 Platelet mean volume (Bld) [Entitic vol] 7.8 fL 6.2-12.0 [facility] Work Phone: [phone] Determination of erythrocyte mean corpuscular volume (MCV)on 04-21-2022 MCV (RBC) [Entitic vol] 104.0 fL 81-99 [facility] Work Phone: Erythrocyte sedimentation ra ir[place] 04-21-2022 ESR (Bld) [Velocity] 18 mm[facility]h 0[facility]: [phone] Hematocrit Auto (Bld) [Volum e fraction]on 04-21-2022 Hematocrit (Bld) [Volume fraction] 30.9 % 37-47 [facility] Work Phone: Laboratory - Chemistry and C hemistry - challengeon 04-21-2022 ALP [Catalytic activity/Vol] 50 U/L 45-117 [facility] Work Phone: [phone] ALT [Catalytic activity/Vol] 10 U/L 13-56 [facility] Work Phone: [phone] CO2 [Moles/Vol] 26.0 mmol/L 21.0-32.0 [facility] Work Phone: Globulin (S) [Mass/Vol] 3.2 g/dL 2.2-4.2 [facility] Work Phone: [phone] Urea nitrogen/Creatinine [Mass ratio] 33.2 mg/mg 10-20 [facility] Work Phone: Laboratory - Hematology and Cell countson 04-21-2022 Erythrocyte distribution width (RBC) [Entitic vol] 46.8 fL 35.1-43.9 [facility] Work Phone: [phone] Erythrocyte distribution width (RBC) [Ratio] 12.5 % 11.6-14.6 [facility] Work Phone: [phone] MCH (RBC) [Entitic mass] 34.3 pg 27.0-32.0 [facility] Work Phone: [phone] MCHC Auto (RBC) [Mass/Vol]on 04-21-2022 MCHC (RBC) [Mass/Vol] 33.0 g/dL 32-36 [facility] Work Phone: No Panel Informationon 04-21 Estimated GFR (MDRD) Amer 134 mL/min >60 [facility] Work Phone: Comment on above: GFR Calc Estimated GFR (MDRD) Non-Af Amer 111 mL/min >60 [facility] Work Phone: Comment on above: Non- GFR Calc Platelets bldon 04-21-2022 Platelets (Bld) [#/Vol] 124 10*3/uL 150-450 [facility] Work Phone: Serum or plasma albumin claudette urement (mass/volume)on 04-21-2022 Albumin [Mass/Vol] 2.2 g/dL 3.2-5.0 [facility] Work Phone: [phone] Serum or plasma albumin/glob ulin mass ratioon 04-21-2022 Albumin/Globulin [Mass ratio] 0.7 {ratio} 0.9-2.4 [facility] Work Phone: [phone] Serum or plasma calcium claudette urement (mass/volume)on 04-21-2022 Calcium [Mass/Vol] 9.0 mg/dL 8.5-10.1 [facility] Work Phone: [phone] Serum or plasma creatinine m easurement (mass/volume)on 04-21-2022 Creatinine [Mass/Vol] 0.57 mg/dL 0.55-1.02 [facility] Work Phone: Comment on above: The validity of the calculated GFR & GFRAA in patients over 70 years has not been determined. Clinical correlation is essential. Serum or plasma urea nitroge n measurement (mass/volume)on 04-21-2022 Urea nitrogen [Mass/Vol] 19 mg/dL 7-18 [facility] Work Phone: [phone] Thin prep Papanicolaou smear with manual screeningon 04-21-2022 Thin prep Papanicolaou smear with manual screening 14 U/L 15-37 [facility] Work Phone: Thin prep Papanicolaou smear with manual screening 6 5-15 [facility] Work Phone: Basophil percentageon 2021 Chloride [Moles/Vol] 107 mmol/L 98-107 [facility] Work Phone: [phone] Cholesterol [Mass/Vol] 104 mg/dL <200 [facility] Work Phone: [phone] Comment on above: <200 mg/dL Desirable 200-240 mg/dL Borderline >240 mg/dL High Risk Glucose [Mass/Vol] 76 mg/dL 74-106 [facility] Work Phone: [phone] Potassium [Moles/Vol] 3.7 mmol/L 3.5-5.1 [facility] Work [facility]: [phone] Sodium [Moles/Vol] 143 mmol/L 136-145 [facility] Work Phone: [phone] Triglyceride [Mass/Vol] 81 mg/dL <199 [facility] Work Phone: [phone] Comment on above: The drugs N-Acetylcy steine and Metamizole may falsely depress this assay.Serum Triglycerides Reference Interval Normal <150 mg/dL Borderline high 150 - 199 mg/dL High 200 - 499 mg/dL Very High > or = 500 mg/dL WBC (Bld) [#/Vol] 5.5 10*3/uL 4.4-11.0 [facility] Work Phone: [phone] Blood erythrocytes count (nu mber/volume)on 02-28-2022 RBC (Bld) [#/Vol] 2.43 10*6/uL 4.2-5.4 [facility] Work Phone: [phone] Blood hemoglobin measurement (mass/volume)on 02-28-2022 Hemoglobin (Bld) [Mass/Vol] 7.9 g/dL 12.0-15.0 [facility] Work Phone: [phone] Blood platelet mean volumeon 02-28-2022 Platelet mean volume (Bld) [Entitic vol] 8.4 fL 6.2-12.0 [facility] Work Phone: Determination of erythrocyte mean corpuscular volume (MCV)on 02-28-2022 MCV (RBC) [Entitic vol] 111.5 fL 81-99 [facility] Work Phone: [phone] Hematocrit Auto (Bld) [Volum e fraction]on 02-28-2022 Hematocrit (Bld) [Volume fraction] 27.1 % 37-47 [facility] Work Phone: Laboratory - Chemistry and C hemistry - challengeon 02-28-2022 CO2 [Moles/Vol] 29.0 mmol/L 21.0-32.0 [facility] Work Phone: [phone] Magnesium [Mass/Vol] 1.9 mg/dL 1.6-2.6 [facility] Work Phone: [phone] Urea nitrogen/Creatinine [Mass ratio] 28.9 mg/mg 10-20 [facility] Work Phone: Laboratory - Hematology and Cell countson 02-28-2022 Erythrocyte distribution width (RBC) [Entitic vol] 53.7 fL 35.1-43.9 [facility] Work Phone: Erythrocyte distribution width (RBC) [Ratio] 13.2 % 11.6-14.6 [facility] Work Phone: [phone] MCH (RBC) [Entitic mass] 32.5 pg 27.0-32.0 [facility] Work Phone: [phone] MCHC Auto (RBC) [Mass/Vol]on 02-28-2022 MCHC (RBC) [Mass/Vol] 29.2 g/dL 32-36 [facility] Work Phone: No Panel Informationon 02-28 Estimated GFR (MDRD) Amer 139 mL/min >60 [facility] Work Phone: Comment on above: GFR Calc Estimated GFR (MDRD) Non-Af Amer 115 mL/min >60 [facility] Work Phone: Comment on above: Non- GFR Calc Thyroid Stimulating Hormone (TSH) 2.92 uIU/mL 0.358-3.74 [facility] Work Phone: Vitamin D 25-Hydroxy 51.1 ng/mL [facility] Work Phone: Comment on above: Vitamin D 25(OH) Sta tus Range Deficiency <20 ng/mL (50nmol/L) Insufficiency 20 - 30 ng/mL (50 - 75 nmol/L) Sufficiency 30 - 100 ng/mL (75 - 250 nmol/L) Toxicity >100 ng/mL (>250 nmol/L) Platelets bldon 02-28-2022 Platelets (Bld) [#/Vol] 164 10*3/uL 150-450 [facility] Work Phone: Serum or plasma calcium claudette urement (mass/volume)on 02-28-2022 Calcium [Mass/Vol] 8.5 mg/dL 8.5-10.1 [facility] Work Phone: Serum or plasma cholesterol in HDL measurement (mass/volume)on 02-28-2022 Cholesterol in HDL [Mass/Vol] 57 mg/dL >40 [facility] Work Phone: Comment on above: The drugs N-Acetylcy steine and Metamizole may falsely depress this assay. Reference Range HDL <40 mg/dL Low HDL Cholesterol HDL >or= 60 mg/dL High HDL Cholesterol Serum or plasma cholesterol in VLDL measurement (mass/volume)on 02-28-2022 Cholesterol in VLDL [Mass/Vol] 16 mg/dL 5-40 [facility] Work Phone: Serum or plasma creatinine m easurement (mass/volume)on 02-28-2022 Creatinine [Mass/Vol] 0.55 mg/dL 0.55-1.02 [facility] Work Phone: Comment on above: The validity of the calculated GFR & GFRAA in patients over 70 years has not been determined. Clinical correlation is essential. Serum or plasma low density lipoprotein (LDL) cholesterol measurement (mass/volume)on 02-28-2022 Cholesterol in LDL [Mass/Vol] 31 mg/dL 0-130 [facility] Work Phone: Serum or plasma urea nitroge n measurement (mass/volume)on 02-28-2022 Urea nitrogen [Mass/Vol] 16 mg/dL 7-18 [facility] Work Phone: Thin prep Papanicolaou smear with manual screeningon 02-28-2022 Thin prep Papanicolaou smear with manual screening 7 5-15 [facility] Work Phone: [phone] Whole blood hemoglobin A1c/t otal hemoglobin ratio (mass fraction)on 02-28-2022 HbA1c (Bld) [Mass fraction] % 3.8-5.6 [facility] Work Phone: Comment on above: Normal < 5.7 % Predi abetic 5.7 - 6.4 % Diabetic >or= 6.5 % Please note range changes. Basophil percentageon 2021 Ammonia (P) [Moles/Vol] 18.0 umol/L 11-32 [facility] Work Phone: No Panel Informationon 12-05 Valproic Acid (Depakene) Level 95 ug/mL 50-100 [facility] Work Phone: Basophil percentageon 2021 Bilirubin [Mass/Vol] 0.10 mg/dL 0.20-1.00 [facility] Work Phone: Comment on above: For patients on eltr ombopag therapy, use of Dimension [place] TBIL is not recommended. Chloride [Moles/Vol] 110 mmol/L 98-107 [facility] Work Phone: Glucose [Mass/Vol] 87 mg/dL 74-106 [facility] Work Phone: [phone] Potassium [Moles/Vol] 3.7 mmol/L 3.5-5.1 [facility] Work Phone: [phone] Protein [Mass/Vol] 5.1 g/dL 6.4-8.2 [facility] Work Phone: [phone] Sodium [Moles/Vol] 142 mmol/L 136-145 [facility] Work Phone: [phone] Laboratory - Chemistry and C hemistry - challengeon 12-01-2021 ALP [Catalytic activity/Vol] 45 U/L 45-117 [facility] Work Phone: [phone] ALT [Catalytic activity/Vol] 10 U/L 13-56 [facility] Work Phone: [phone] CO2 [Moles/Vol] 28.0 mmol/L 21.0-32.0 [facility] Work Phone: [phone] Globulin (S) [Mass/Vol] 2.7 g/dL 2.2-4.2 [facility] Work Phone: [phone] Urea nitrogen/Creatinine [Mass ratio] 36.8 mg/mg 10-20 [facility] Work Phone: No Panel Informationon 12-01 Estimated GFR (MDRD) Amer 101 mL/min >60 [facility] Work Phone: [phone] Comment on above: GFR Calc Estimated GFR (MDRD) Non-Af Amer 83 mL/min >60 [facility] Work Phone: Comment on above: Non- GFR Calc Serum or plasma albumin claudette urement (mass/volume)on 12-01-2021 Albumin [Mass/Vol] 2.4 g/dL 3.2-5.0 [facility] Work Phone: [phone] Serum or plasma albumin/glob ulin mass ratioon 12-01-2021 Albumin/Globulin [Mass ratio] 0.9 {ratio} 0.9-2.4 [facility] Work Phone: [phone] Serum or plasma calcium claudette urement (mass/volume)on 12-01-2021 Calcium [Mass/Vol] 8.9 mg/dL 8.5-10.1 [facility] Work Phone: [phone] Serum or plasma creatinine m easurement (mass/volume)on 12-01-2021 Creatinine [Mass/Vol] 0.73 mg/dL 0.55-1.02 [facility] Work Phone: Comment on above: The validity of the calculated GFR & GFRAA in patients over 70 years has not been determined. Clinical correlation is essential. Serum or plasma urea nitroge n measurement (mass/volume)on 12-01-2021 Urea nitrogen [Mass/Vol] 27 mg/dL 7-18 [facility] Work Phone: Thin prep Papanicolaou smear with manual screeningon 12-01-2021 Thin prep Papanicolaou smear with manual screening 8 U/L 15-37 [facility] Work Phone: Thin prep Papanicolaou smear with manual screening 4 5-15 [facility] Work Phone: Basophil percentageon 2021 Chloride [Moles/Vol] 110 mmol/L 98-107 [facility] Work Phone: Glucose [Mass/Vol] 74 mg/dL 74-106 [facility] Work Phone: Potassium [Moles/Vol] 3.2 mmol/L 3.5-5.1 [facility] Work Phone: Sodium [Moles/Vol] 145 mmol/L 136-145 [facility] Work Phone: Laboratory - Chemistry and C hemistry - challengeon 11-16-2021 CO2 [Moles/Vol] 27.0 mmol/L 21.0-32.0 [facility] Work Phone: Urea nitrogen/Creatinine [Mass ratio] 22.6 mg/mg 10-20 [facility] Work Phone: No Panel Informationon 11-16 Estimated GFR (MDRD) Amer 134 mL/min >60 [facility] Work Phone: Comment on above: GFR Calc Estimated GFR (MDRD) Non-Af Amer 110 mL/min >60 [facility] Work Phone: Comment on above: Non- GFR Calc Serum or plasma calcium caludette urement (mass/volume)on 11-16-2021 Calcium [Mass/Vol] 8.7 mg/dL 8.5-10.1 [facility] Work Phone: Serum or plasma creatinine m easurement (mass/volume)on 11-16-2021 Creatinine [Mass/Vol] 0.57 mg/dL 0.55-1.02 [facility] Work Phone: Comment on above: The validity of the calculated GFR & GFRAA in patients over 70 years has not been determined. Clinical correlation is essential. Serum or plasma urea nitroge n measurement (mass/volume)on 11-16-2021 Urea nitrogen [Mass/Vol] 13 mg/dL 7-18 [facility] Work Phone: Thin prep Papanicolaou smear with manual screeningon 11-16-2021 Thin prep Papanicolaou smear with manual screening 8 5-15 [facility] Work Phone: Basophil percentageon 2021 Chloride [Moles/Vol] 104 mmol/L 98-107 [facility] Work Phone: Glucose [Mass/Vol] 81 mg/dL 74-106 [facility] Work Phone: Potassium [Moles/Vol] 2.9 mmol/L 3.5-5.1 [facility] Work Phone: Sodium [Moles/Vol] 142 mmol/L 136-145 [facility] Work Phone: [phone] WBC (Bld) [#/Vol] 9.8 10*3/uL 4.4-11.0 [facility] Work Phone: [phone] Blood erythrocytes count (nu mber/volume)on 11-08-2021 RBC (Bld) [#/Vol] 3.21 10*6/uL 4.2-5.4 [facility] Work Phone: [phone] Blood hemoglobin measurement (mass/volume)on 11-08-2021 Hemoglobin (Bld) [Mass/Vol] 9.0 g/dL 12.0-15.0 [facility] Work Phone: [phone] Blood manual differential co mment interpretation (narrative result)on 11-08-2021 Manual differential comment Charan (Bld) [Interp] SCANNED [facility] Work Phone: [phone] Comment on above: 2+ ANISOCYTOSIS1+ MS CROCYTOSIS1+ MACROCYTOSIS Blood platelet mean volumeon 11-08-2021 Platelet mean volume (Bld) [Entitic vol] 8.7 fL 6.2-12.0 [facility] Work Phone: [phone] Determination of erythrocyte mean corpuscular volume (MCV)on 11-08-2021 MCV (RBC) [Entitic vol] 90.7 fL 81-99 [facility] Work Phone: [phone] Hematocrit Auto (Bld) [Volum e fraction]on 11-08-2021 Hematocrit (Bld) [Volume fraction] 29.1 % 37-47 [facility] Work Phone: [phone] Laboratory - Chemistry and C hemistry - challengeon 11-08-2021 CO2 [Moles/Vol] 32.0 mmol/L 21.0-32.0 [facility] Work Phone: [phone] Urea nitrogen/Creatinine [Mass ratio] 34.5 mg/mg 10-20 [facility] Work Phone: [phone] Laboratory - Hematology and Cell countson 11-08-2021 Erythrocyte distribution width (RBC) [Entitic vol] 68.8 fL 35.1-43.9 [facility] Work Phone: [phone] Erythrocyte distribution width (RBC) [Ratio] 20.9 % 11.6-14.6 [facility] Work Phone: [phone] MCH (RBC) [Entitic mass] 28.0 pg 27.0-32.0 [facility] Work Phone: [phone] MCHC Auto (RBC) [Mass/Vol]on 11-08-2021 MCHC (RBC) [Mass/Vol] 30.9 g/dL 32-36 [facility] Work Phone: [phone] No Panel Informationon 11-08 Estimated GFR (MDRD) Amer 159 mL/min >60 [facility] Work Phone: Comment on above: GFR Calc Estimated GFR (MDRD) Non-Af Amer 132 mL/min >60 [facility] Work Phone: Comment on above: Non- GFR Calc Platelets bldon 11-08-2021 Platelets (Bld) [#/Vol] 276 10*3/uL 150-450 [facility] Work Phone: Serum or plasma calcium claudette urement (mass/volume)on 11-08-2021 Calcium [Mass/Vol] 8.4 mg/dL 8.5-10.1 [facility] Work Phone: Serum or plasma creatinine m easurement (mass/volume)on 11-08-2021 Creatinine [Mass/Vol] 0.49 mg/dL 0.55-1.02 [facility] Work Phone: Comment on above: The validity of the calculated GFR & GFRAA in patients over 70 years has not been determined. Clinical correlation is essential. Serum or plasma urea nitroge n measurement (mass/volume)on 11-08-2021 Urea nitrogen [Mass/Vol] 17 mg/dL 7-18 [facility] Work Phone: Thin prep Papanicolaou smear with manual screeningon 11-08-2021 Thin prep Papanicolaou smear with manual screening 6 5-15 [facility] Work Phone: CNPIrma 10-28-2021 CNPN Telephone ([employer]) ELBA DIAZ ([id number]) 1950 F T Date Time Provider Department 10/28/21 MARCUS TIERNEY STIAF During your visit today, we recorded the [...] 1 TABLET BY MOUTH EVERY DAY - [facility] Blue-Sod Tygk-YmCtv-Prq (URIBEL) 118-10-40.8-36 mg Take 1 capsule by [...] Hypotension [I95. (more content not included)... Normal [facility] CNPNon 10-27-2021 CNPN Telephone (STFLF) ELBA DIAZ ([id number]) 1950 F CHT Date Time Provider Department 10/27/21 [facility]ARCUS TIERNEY [facility] During your visit today, we recorded the following information about you: Marcus Tierney MD 10/27/2021 3:30 PM Signed I haven't seen patient physically since 05/2020. She needs to come in for appt if wants me to continue to take care of her. I am receiving nursing orders but I can't sign them until she comes in Saundra WILLIS Ibarra 10/27/2021 3:37 PM Signed Elba currently in nursing. Spoke with daughter in law tammie whom referred me to contact Mauricio. [facility] for mauricio to call office [...] BY MOUTH EVERY DAY - [facility] Blue-Sod Flvl-GcYig-Qxv (URIBEL) 118-10-40.8-36 mg Take 1 capsule by [...] UTI (u (more content not included)... Normal [facility] Jessica 10-24-2021 CNPN Telephone (PESTFL) ELBA DIAZ ([id number]) 1950 F CHT Date Time Provider Department 10/24/21 MARCUS TIERNEY PESTIA During your visit today, we recorded the following information about you: Naomi Miller Ma 10/24/2021 1:52 PM Signed Start of care to be completed form on pcp desk for review Allergies As of Date: 10/24/2021 Noted Allergy Reaction CODEINE 03/26/2017 14 - Other: See Comments Comments: nausea Date Reviewed: 10/24/2021 Reviewed by: Fabby Garcia RN - Fully Assessed Reason for Visit: Forms [627] Cmt: absolute skilled home health Prescriptions as [...] BY MOUTH EVERY DAY - [facility] Blue-Sod Sbgi-HuXrx-Fbp (URIBEL) 118-10-40.8-36 mg Take 1 capsule by [...] repeat in 2 hours if needed - pimboos-ewvhedqp-axfavd ital (FIORINAL) capsule Take 1 capsule by [...] mg ER 24 hour tablet (MYRBETRIQ) - [facility] Blue-Sod Egzr-BqEpi-Mnv 118-10-40.8-36 mg cap 1 capsule - rOPINIRole [...] functional mob (more content not included)... Normal [facility] Absolute lymphocyte counton 10-21-2021 Lymphocytes Auto (Unsp spec) [#/Vol] 0.45 10*3/uL 0.83-4.51 [facility] Work Phone: Basophil percentageon 2020 Ammonia (P) [Moles/Vol] 38.0 umol/L 11-32 [facility] Work Phone: Bilirubin [Mass/Vol] 0.20 mg/dL 0.20-1.00 [facility] Work Phone: Comment on above: For patients on eltr ombopag therapy, use of Dimension [place] TBIL is not recommended. Chloride [Moles/Vol] 107 mmol/L 98-107 [facility] Work Phone: Cholesterol [Mass/Vol] 121 mg/dL <200 [facility] Work Phone: Comment on above: <200 mg/dL Desirable 200-240 mg/dL Borderline >240 mg/dL High Risk Eosinophils/100 WBC (Bld) 2.4 % 0-5 [facility] Work Phone: Glucose [Mass/Vol] 101 mg/dL 74-106 [facility] Work Phone: Comment on above: Fasting Glucose resu lt from 100 to 125 mg/dL suggests IMPAIRED HOMEOSTASIS per A.D.A. criteria.Please note revised GLUCOSE reference range effective 2017. Neutrophils (Bld) [#/Vol] 4.6 10*3/uL 2.0-7.7 [facility] Work Phone: Potassium [Moles/Vol] 3.5 mmol/L 3.5-5.1 [facility] Work Phone: Protein [Mass/Vol] 5.8 g/dL 6.4-8.2 [facility] Work Phone: Sodium [Moles/Vol] 139 mmol/L 136-145 [facility] Work Phone: Triglyceride [Mass/Vol] 167 mg/dL [facility] Work Phone: Comment on above: The drugs N-Acetylcy steine and Metamizole may falsely depress this assay.Serum Triglycerides Reference Interval Normal <150 mg/dL Borderline high 150 - 199 mg/dL High 200 - 499 mg/dL Very High > or = 500 mg/dL WBC (Bld) [#/Vol] 5.5 10*3/uL 4.4-11.0 [facility] Work Phone: [phone] Blood erythrocytes count (nu mber/volume)on 10-21-2021 RBC (Bld) [#/Vol] 2.09 10*6/uL 4.2-5.4 [facility] Work Phone: [phone] Blood hemoglobin measurement (mass/volume)on 10-21-2021 Hemoglobin (Bld) [Mass/Vol] 4.6 g/dL 12.0-15.0 [facility] Work Phone: Comment on above: CRITICAL VALUE VERIF IED. CALLED TO YENNY BROWNING RN [facility]10/21/21 1414 Kadi Theresa.RESULTS READ BACK BY SAME . Blood lymphocytes/100 leukoc yteson 10-21-2021 Lymphocytes/100 WBC (Bld) 8.2 % 19-41 [facility] Work Phone: Blood monocytes/100 leukocyt eson 10-21-2021 Monocytes/100 WBC (Bld) 5.1 % 0-10 [facility] Work Phone: Blood platelet adequacy dete ction by light microscopyon 10-21-2021 Platelets LM Ql (Bld) ADEQUATE ADEQ [facility] Work Phone: [phone] Blood platelet mean volumeon 10-21-2021 Platelet mean volume (Bld) [Entitic vol] 9.6 fL 6.2-12.0 [facility] Work Phone: Blood polychromasia detectio n by light microscopyon 10-21-2021 Polychromasia LM Ql (Bld) 1+ [facility] Work Phone: Determination of erythrocyte mean corpuscular volume (MCV)on 10-21-2021 MCV (RBC) [Entitic vol] 78.5 fL 81-99 [facility] Work Phone: Hematocrit Auto (Bld) [Volum e fraction]on 10-21-2021 Hematocrit (Bld) [Volume fraction] 16.4 % 37-47 [facility] Work Phone: Hypochromatic red blood cell detectionon 10-21-2021 Hypochromia Ql (Bld) 3+ [facility] Work Phone: Laboratory - Chemistry and C hemistry - challengeon 10-21-2021 ALP [Catalytic activity/Vol] 51 U/L 45-117 [facility] Work Phone: ALT [Catalytic activity/Vol] 18 U/L 13-56 [facility] Work Phone: CO2 [Moles/Vol] 23.0 mmol/L 21.0-32.0 [facility] Work Phone: Globulin (S) [Mass/Vol] 3.5 g/dL 2.2-4.2 [facility] Work Phone: Urea nitrogen/Creatinine [Mass ratio] 14.6 mg/mg 10-20 [facility] Work Phone: Laboratory - Hematology and Cell countson 10-21-2021 Anisocytosis Ql (Bld) 1+ [facility] Work Phone: Basophils/100 WBC (Unsp spec) 0.2 % 0-1 [facility] Work Phone: Erythrocyte distribution width (RBC) [Entitic vol] 53.7 fL 35.1-43.9 [facility] Work Phone: Erythrocyte distribution width (RBC) [Ratio] 19.4 % 11.6-14.6 [facility] Work Phone: Immature granulocytes/100 WBC (Bld) 1.300 % 0.0-0.9 [facility] Work Phone: Comment on above: IG% - Immature Granu locytes (promyelocytes, myelocytes and metamyelocytes) > 1% indicates that a LEFT SHIFT is Present. MCH (RBC) [Entitic mass] 22.0 pg 27.0-32.0 [facility] Work Phone: Neutrophils/100 WBC (Bld) 82.8 % 47-70 [facility] Work Phone: Nucleated RBC/100 WBC (Bld) [Ratio] 1.3 % 0-5 [facility] Work Phone: MCHC Auto (RBC) [Mass/Vol]on 10-21-2021 MCHC (RBC) [Mass/Vol] 28.0 g/dL 32-36 [facility] Work Phone: No Panel Informationon 10-21 Estimated GFR (MDRD) Amer 109 mL/min >60 [facility] Work Phone: Comment on above: GFR Calc Estimated GFR (MDRD) Non-Af Amer 90 mL/min >60 [facility] Work Phone: [phone] Comment on above: Non- GFR Calc Thyroid Stimulating Hormone (TSH) 1.73 uIU/mL 0.358-3.74 [facility] Work Phone: [phone] Valproic Acid (Depakene) Level 43 ug/mL 50-100 [facility] Work Phone: [phone] Platelets bldon 10-21-2021 Platelets (Bld) [#/Vol] 160 10*3/uL 150-450 [facility] Work Phone: [phone] Review by pathologiston 09-23 Pathologist review Charan (Unsp spec) [Interp] Reviewed [facility] Work Phone: [phone] Comment on above: Previous reported re sult: Jessie mcguire Edited by: ALONSO on 10/24/21:1435Severe Microcytic anemia.Clinical correlation necessary.Bryson Anaya M.D. 10/24/21 AMENDED REPORT 10/24/21 1435 PATH REV previously reported as: February shayla Serum or plasma albumin claudette urement (mass/volume)on 10-21-2021 Albumin [Mass/Vol] 2.3 g/dL 3.2-5.0 [facility] Work Phone: Serum or plasma albumin/glob ulin mass ratioon 10-21-2021 Albumin/Globulin [Mass ratio] 0.7 {ratio} 0.9-2.4 [facility] Work Phone: [phone] Serum or plasma calcium claudette urement (mass/volume)on 10-21-2021 Calcium [Mass/Vol] 7.9 mg/dL 8.5-10.1 [facility] Work Phone: [phone] Serum or plasma cholesterol in HDL measurement (mass/volume)on 10-21-2021 Cholesterol in HDL [Mass/Vol] 50 mg/dL [facility] Work Phone: [phone] Comment on above: The drugs N-Acetylcy steine and Metamizole may falsely depress this assay. Reference Range HDL <40 mg/dL Low HDL Cholesterol HDL >or= 60 mg/dL High HDL Cholesterol Serum or plasma cholesterol in VLDL measurement (mass/volume)on 10-21-2021 Cholesterol in VLDL [Mass/Vol] 33 mg/dL 5-40 [facility] Work Phone: Serum or plasma creatinine m easurement (mass/volume)on 10-21-2021 Creatinine [Mass/Vol] 0.68 mg/dL 0.55-1.02 [facility] Work Phone: Comment on above: The validity of the calculated GFR & GFRAA in patients over 70 years has not been determined. Clinical correlation is essential. Serum or plasma low density lipoprotein (LDL) cholesterol measurement (mass/volume)on 10-21-2021 Cholesterol in LDL [Mass/Vol] 38 mg/dL 0-130 [facility] Work Phone: Serum or plasma urea nitroge n measurement (mass/volume)on 10-21-2021 Urea nitrogen [Mass/Vol] 10 mg/dL 7-18 [facility] Work Phone: Thin prep Papanicolaou smear with manual screeningon 10-21-2021 Thin prep Papanicolaou smear with manual screening 3+ [facility] Work Phone: Thin prep Papanicolaou smear with manual screening 18 U/L 15-37 [facility] Work Phone: Thin prep Papanicolaou smear with manual screening 9 5-15 [facility] Work Phone[facility] ELBA [facility] ([id number]) 1950 F [facility] Date Time Provider Department 10/17/21 MARCUS TIERNEY [facility] During your visit today, we recorded the [...] 1 TABLET BY MOUTH EVERY DAY - [facility] Blue-Sod Xyfg-RmWml-Rni (URIBEL) 118-10-40.8-36 mg Take 1 capsule by [...] repeat in 2 hours if needed - ssmlnxl-rybkyoum-tziyrg ital (FIORINAL) capsule Take 1 capsule by [...] Encounter Status:Closed by JOE YOUNGBLOOD on 10/17/21 [facility] Jessica [facility]11[facility]20[facility] EL[facility] ([id number]) 1950 F [facility] Date Time Provider Department 10/11/21 MARCUS TIERNEY [facility] During your visit today, we recorded the following information about you: Trinity Henderson RN 10/11/2021 9:29 AM Signed Absolute skilled home health form on Dr. Tierney's desk Naomikimmie Miller Ma 11/04/2021 2:57 PM Signed Forms faxed on [...] 1 TABLET BY MOUTH EVERY DAY - [facility] Blue-Sod Jbsf-OtPxp-Smn (URIBEL) 118-10-40.8-36 mg Take 1 capsule by [...] depression (HCC) [F32.A] Polyneuropathy [G62.9] 07/22/2012 Aneurysm ([facility]) [I72.9] Multiple lung nodules on CT [R91.8] Pure hypercholesterolemia [E78.00] 03/26/2017 Impaired functional mobility, balance, gait, an*01/26/2020 Left arm weakness [R29.898] 02/11/2020 Impaired mobility and ADLs [Z74.09, Z78.9] 02/11/2020 Cerebrovascular accident (CVA) ([facility]) [I63.9] 03/05/2020 Spasticity [R25.2] 03/05/2020 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 Normal [facility] DIAGNOSTIC LTon 08-06-20 20 [facility] DIAGNOSTIC LT Final Report DATE OF EXAM: Aug 06 2020 1:GerdaM ULYSSES [place] - [facility] DIAGNOSTIC LT / PROCEDURE REASON: Abnormal mammogram Physician Interpretation #[id number] - [facility] DIAGNOSTIC LT UNILATERAL LEFT DIGITAL DIAGNOSTIC MAMMOGRAM WITH CAD: 08/06/2020 HISTORY: Abnormal Mammogram\\ Patient returns for abnormal left mammogram. RESULT: TECHNIQUE: The study was acquired using full field digital technology and interpreted from soft copy. Current study was also evaluated with a Computer Aided Detection (CAD). Comparison is made to exams dated: 07/21/2020 mammogram - [facility], 12/31/2017 mammogram, 09/25/2016 mammogram, and 08/07/2013 mammogram - [facility]. There are scattered fibroglandular elements in left [...] Jorge Alberto Johns(R)(M), [facility] Can Coverer(s): RT Shane(R)(M), [facility] Mammogram [...] Health, Family Medicine, and Medical/Surgical Oncology, the [facility] has carefully reviewed the data and reached [...] their providers when to stop screening mammograms. Automatic Screwmaker: Mark Transcribe Date/Time: Aug 06 2020 1:27P Dictated by : NADINE DAVILA MD This examination was interpreted and the report reviewed and electronically signed by: NADINE DAVILA MD on Aug 06 2020 7:04PM EST Normal [facility] SLEEP RPTSon 07-23-2020 SLEEP RPTS Patient Name:VICTORIANO DIAZ Admit/Service Date: 07/09/20 Patient Acc#: [id number] Patient MR#: [id number] : 1950 Age: 70 Sex: F Attending [...] compliance. BRENDA/GIORGIO @ 07:18 @ 16:20 # [id number] Carrie Parekh D.O. Electronically Signed Date/Time: 08/17/20 1228 [facility] SLEEP RPTSon 06-07-2020 SLEEP RPTS Patient Name:VICTORIANO DIAZ Admit/Service Date: 05/31/20 Patient Acc#: [id number] Patient MR#: [id number] : 1950 Age: 70 Sex: F Attending [...] hygiene. BRENDA/GIORGIO @ 08:28 @ 11:50 # [id number] Carrie Parekh D.O. Electronically Signed Date/Time: 06/21/20 0958 [facility] CASE MANAGEMon 05-19-2020 CASE MANAGEM HNO ID: [id number] Author: Emmie Hewitt Sec Service: Care Management Author Type: ? Type: Care Mgt Progress Note Filed: 05/19/2020 11:28 AM Note Text: CARE MANAGEMENT PROGRESS NOTE SERVICE DATE: 05/19/2020 SERVICE TIME: 1010 LOS: 3 days IMM Follow Up Copy Given: Yes Copy given to:: Patient Client Care Coordinator Client Care Coordinator Name/Relationship: Mauricio (son) Method: By Phone SIGNATURE: Emmie Hewtit Kory PATIENT NAME: Elba Diaz DATE: May 19, 2020 TIME: 11:27 AM PAGER/CONTACT #: [facility] CASE MANAGEM HNO ID: [id number] Author: Yenny BarronRn) MONAE Fuentes Service: Nursing Author Type: Registered [...] Pt will be doing PT/OT outpatient at [facility] outpatient location. Order in [facility]. RN to give d/c instructions at bedside SIGNATURE: Yenny Fuentes RN PATIENT NAME: Elba Diaz DATE: May 19, 2020 TIME: 10:07 AM PAGER/CONTACT #: [phone] [facility] NURSING PROGon 05-19-2020 NURSING PROG HNO ID: [id number] Author: Maricruz BarronRn) MONAE Vazquez Service: Nursing Author Type: Registered Nurse Type: Nursing Progress Note Filed: 05/19/2020 4:29 AM Note Text: Post Fall Assessment Elba Diaz [id number] Witnessed: No How did fall occur: Getting [...] / chair Name of LIP notified: Stew Jonesiott MANISH Notify family as appropriate: Son, Mauricio Diaz - attempted call but VM not set up to leave call back number Post fall interventions: Fall Huddle Conducted, Bed Alarm On and My Safety Plan Updated This note was completed by:Maricruz Vazquez RN [facility] PROGRESSon 05-19-2020 PROGRESS HNO ID: [id number] Author: Gutierrez Shannon Service: Hospital Medicine Author Type: Physician Type: Progress Notes Filed: 05/19/2020 9:48 AM Note Text: DEPARTMENT OF HOSPITAL MEDICINE PROGRESS NOTE SERVICE DATE: 05/19/2020 SERVICE TIME: 9:17 AM Hospital Medicine/Primary Attending: Gutierrez Shannon, DO NIGHT AND WEEKEND COVERAGE: After 7pm please page [phone] CHIEF COMPLAINT: I'm ready to go home SUBJECTIVE: Pt seen and examined. Feels like she wants to go home today. States that she "melted" out of bed last night. Didn't fall. Denies any pain. Pt denies chest pain, shortness of breath, nausea, vomiting, or diarrhea. OBJECTIVE: PHYSICAL EXAM: BP 160/92[rn notified[ Pulse 78 Temp (Src) 97.5 (Oral) Resp 18 Ht 5' 4" (1.63m) Wt 160 lb 4.8 oz (72.7kg) [...] in meds and ok to continue with zuleyka with close follow up Medication and Non-Pharmacologic VTE Prophylaxis/Anticoagula nts Anticoagulant AND Antiplatelet Medications (From admission, onward) Start Dose Route Frequency Ordered Stop 05/17/20 0900 aspirin 81 mg chewable tab(s) 81 mg ORAL DAILY 05/16/20 2339 -- 05/17/20 0000 heparin 5,000 Units injection (Medical Risk Categories) 5,000 Units SUBCUTANEOUS EVERY 12 HOURS 05/16/20 2339 -- 05/16/20 2345 pneumatic compression stockings (ri,oh) 05/16/20 2345 activity - mobilize patient (ri,nm) Lines, Drains, and Airways Line Peripheral 05/18/20 [...] this note may have been generated using Chirpme voice recognition software. Reasonable efforts were made to correct any dictation errors that resulted due to the programming of this software but some may still be present. Normal [facility] PROGRESS HNO ID: [id number] Author: Stew Ferraro APRN.MANISH Service: Hospital Medicine [...] May 19, 2020 2:16 AM Stew Ferraro APRN.WAREHOUSE ADMINISTRATIVE ASSISTANT Normal [facility] THERAPY NTon 05-19-2020 THERAPY NT HNO ID: [id number] Author: Tammie Dee/Cristian Beard Service: Occupational Therapy Author Type: Occupational Therapist Type: Therapy (PT/OT/Speech/Resp) Filed: 05/19/2020 9:16 AM Note Text: Occupational Therapy Evaluation SERVICE DATE: 05/19/2020 SERVICE TIME: 814 to 837 ROOM: [place] [address] Recommended Discharge Disposition: Outpatient Occupational Therapy Anticipated [...] living (ADL);Muscle Weakness (generalized) Interventions Provided: Evaluation;Self Halfway Management (62407) $ Evaluation-Low (16004) Billed Units: 1 unit OT Evaluation Low [...] present to affect patient's occupational performance. Self Halfway Management (12211) Treatment Minutes: 8 1 unit Skilled Intervention(s): [...] good understanding Discussed home safety with patient, haoo's good understanding Provided cues for proper hand [...] DATE: May 19, 2020 TIME: 9:12 AM Normal [facility] ALLIED HEALTHon 05-18-2020 ALLIED HEALTH HNO ID: [id number] Author: Nancy (Student) Gita Barraza Service: Spiritual Care Author Type: Student Type: Allied Health Filed: 05/18/2020 11:36 AM Note Text: SPIRITUALCARE Spiritual Care Visit- Brief Note Name: Elba Diaz Date: May 18, 2020 Notes: As spiritual counselor attempted visitation by phone-no answer. Will follow-up as able. Manager Copy Signature: Gita Valdez To contact the Spiritual Care Department: Please call [phone] or Page the On-Call Manager Copy at pager [phone] Thank you for the opportunity to be of service. This is an electronically created document. IF PRINTED, PLEASE DO NOT REMOVE FROM THE CHART OR MODIFY PRINTED COPY. Normal [facility] Basic Metabolic Panelon 07- Anion gap [Moles/Vol] 11 mmol/L Normal 9-18 [facility] Comment on above: Performed By: #### B MP ####[facility] [place], [place] [address] Calcium [Mass/Vol] 9.2 mg/dL Normal 8.5-10.2 [facility] Comment on above: Performed By: #### B MP ####[facility] [place], [place] [address] Chloride [Moles/Vol] 105 mmol/L Normal 97-105 [facility] Comment on above: Performed By: #### B MP ####[facility] [place], [place] [address] CO2 Blood 23 mmol/L Normal 22-30 [facility] Comment on above: Performed By: #### B MP ####[facility] [place], [place] [address] Creatinine [Mass/Vol] 1.05 mg/dL High 0.58-0.96 [facility] Comment on above: Performed By: #### B MP ####[facility] [place], [place] [address] Glucose [Mass/Vol] 78 mg/dL Normal 74-99 [facility] Comment on above: Result Comment: The [place] Diabetes Association (ADA) provides guidance for cutoff [...] Standards of Medical Care in Diabetes 2016; [place] [employer]. Diabetes Care. 2016;39(Suppl 1). Performed By: #### B MP ####[facility] [place], [place] [address] Potassium [Moles/Vol] 3.6 mmol/L Low 3.7-5.1 [facility] Comment on above: Performed By: #### B MP ####[facility] [place], [place] [address] Sodium [Moles/Vol] 139 mmol/L Normal 136-144 [facility] Comment on above: Performed By: #### B MP ####[facility] [place], [place] [address] Urea nitrogen [Mass/Vol] 14 mg/dL Normal 7-21 [facility] Comment on above: Performed By: #### B MP ####[place] [address] Hemogramon 05-18-2020 Erythrocyte distribution width (RBC) [Ratio] 13.2 % Normal 11.7-14.4 [facility] Comment on above: Performed By: #### C BC1 ####[address] [address] Hematocrit (Bld) [Volume fraction] 31.7 % Low 34.1-44.9 [facility] Comment on above: Performed By: #### C BC1 ####[address] [address] Hemoglobin (Bld) [Mass/Vol] 10.8 g/dL Low 11.2-15.7 [facility] Comment on above: Performed By: #### C BC1 ####[address] [address] MCH (RBC) [Entitic mass] 33.1 pg High 25.6-32.2 [facility] Comment on above: Performed By: #### C BC1 ####[address] [address] MCHC (RBC) [Mass/Vol] 34.1 % Normal 31.6-34.8 [facility] Comment on above: Performed By: #### C BC1 ####[facility] [place], [place] [address] MCV (RBC) [Entitic vol] 97.2 fL High 79.4-94.8 [facility] Comment on above: Performed By: #### C BC1 ####[facility] [place], [place] [address] Platelet mean volume (Bld) [Entitic vol] 9.5 fL Normal 9.4-12.3 [facility] Comment on above: Performed By: #### C BC1 ####[facility] [place], [place] [address] Platelets (Bld) [#/Vol] 205 thou/cmm Normal 182-369 [facility] Comment on above: Performed By: #### C BC1 ####[place] [id number] RBC (Bld) [#/Vol] 3.26 mil/cmm Low 3.93-5.22 [facility] Comment on above: Performed By: #### C BC1 ####[place] [address] RDW SD 47.1 fl High 36.4-46.3 [facility] Comment on above: Performed By: #### C BC1 ####[address] [address] WBC (Bld) [#/Vol] 7.08 thou/cmm Normal 3.98-10.04 [facility] Comment on above: Performed By: #### C BC1 ####[facility] [place] [id number] MDRD GFRon 05-18-2020 GFR/1.73 sq M predicted among non-blacks MDRD (S/P/Bld) [Vol rate/Area] 51.95 mL/min/{1.73_m2} Normal >60mL/min/1. 73m2 [facility] Comment on above: Result Comment: If t he patient is , multiply the result by 1.210. Performed By: #### G FR #### [facility] [address] [place] [id number] PROGRESSon 05-18-2020 PROGRESS HNO ID: [id number] Author: Leonel Lund Service: Hospital Medicine Author [...] the past and did okay according to oqjgpmwk-qr-lzs. Patient Checklist Prophylaxis: VTE - Yes Code [...] Sunday. Had long discussion with patient and epmhixpb-ch-gum who is the main caregiver regarding her [...] (Oral) Resp 16 Ht 162.6 cm (5' 4") Wt 72.7 kg (160 lb 4.8 oz) [...] by mouth every 12 hours as needed. hwjwkua-tvqtppwm-jlrgne ital (FIORINAL) capsule Take 1 capsule by [...] WITH BREAKFAST Lab data: CBC: Recent Labs 05/18/20 0319 05/17/20 0345 05/16/20 1919 WBC 7.08 8.13 10.49* HB 10.8* 11.0* [...] AST 49* TBILI 0.2 URINALYSIS: Recent Labs 05/16/205 SPGR 1.017 UGLUC NEGATIVE UBILI NEGATIVE UKET NEGATIVE UPROT 100* UROBIL 0.2 UWBC 2.4 Plan of care discussion: Plan of care discussed with: Provider, RN, Patient. Leonel Lund MD Pager #[phone] 2:16 PM May 18, 2020 Disclaimer: Portions of this note have been generated using Chirpme voice recognition software. Reasonable efforts were made to correct any dictation errors that resulted due to the programming of this software but some may still be present. Normal [facility] Basic Metabolic Panelon 04-22 Anion gap [Moles/Vol] 13 mmol/L Normal 9-18 [facility] Comment on above: Performed By: #### C BCD1 #### [facility] [address] [place], [place] [address] Calcium [Mass/Vol] 9.4 mg/dL Normal 8.5-10.2 [facility] Comment on above: Performed By: #### C BCD1 #### [facility] [address] [place], [place] [address] Chloride [Moles/Vol] 101 mmol/L Normal 97-105 [facility] Comment on above: Performed By: #### C BCD1 #### [facility] [address] [place], [place] [address] CO2 Blood 23 mmol/L Normal 22-30 [facility] Comment on above: Performed By: #### C BCD1 #### [facility] [address] [place], [place] [address] Creatinine [Mass/Vol] 0.95 mg/dL Normal 0.58-0.96 [facility] Comment on above: Performed By: #### C BCD1 #### [facility] [address] [place], [place] [address] Glucose [Mass/Vol] 78 mg/dL Normal 74-99 [facility] Comment on above: Result Comment: The [place] Diabetes Association (ADA) provides guidance for cutoff [...] Standards of Medical Care in Diabetes 2016; [place] [employer]. Diabetes Care. 2016;39(Suppl 1). Performed By: #### C BCD1 #### [facility] [address] [place], [place] [address] Potassium [Moles/Vol] 3.5 mmol/L Low 3.7-5.1 [facility] Comment on above: Performed By: #### C BCD1 #### [facility] [address] [place], [place] [address] Sodium [Moles/Vol] 137 mmol/L Normal 136-144 [facility] Comment on above: Performed By: #### C BCD1 #### [facility] [address] [place], [place] [address] Urea nitrogen [Mass/Vol] 14 mg/dL Normal 7-21 [facility] Comment on above: Performed By: #### C BCD1 #### [address] [address] CASE MGT INIT Bryson 2019 CASE MGT INIT MARVA HNO ID: [id number] Author: Jackelin (Rn) MONAE Barroso Service: Care Management Author Type: Registered Nurse Type: Care Mgt Initial Assessment Filed: 05/17/2020 4:28 PM Note Text: CARE MANAGEMENT: ASSESSMENT AND DISCHARGE PLAN SERVICE DATE: May 17, 2020 SERVICE TIME: 4:27 PM PRIMARY CARE PHYSICIAN: No primary care provider on file. Phone: None ADMISSION STATUS: Inpatient Needs Prior to Discharge: Other: See Comment(out patient physical therapy) MEDICAL: [facility] MEDICARE PPO Patient/Client Care Coordinator Stated Goals: To have reduction in symptoms Health Insurance: [facility] Issues Impacting Discharge Plan: None Last Discharge Date: N/A Is this Within the Past 30 days? Last discharge within 30 days: No Advance Directive: Current Advance Directive: None Insurance Marketing Specialist Attempted to Assist with AD Completion: Yes [...] Contact Resources: Family Family Name/Phone: Mauricio (son) [phone] Social Needs Food insecurity Worry: Not on [...] Completely I feel financially burdened by my obp-ph-aumigj expenses for my prescription medication:: 0 - Disagree Completely Risk Score: 0 Patient is categorized as: Low risk < 2 Are you interested in bedside delivery of your medications? No Is Patient Psychosocially Complex?: No ASSESSMENT AND PLAN: Medical Needs: Medical Needs: None Psychosocial Needs: Psychosocial Needs: None FREEDOM OF CHOICE EXPLAINED: [place] of Choice Given: No Reason Not Given: No placements necessary POTENTIAL TRANSITION PLANS Outpatient Therapy From home w/ son and daughter in law, they help with all activities of daily living, they can still manage to provide care. Patient active with outpatient physical and occupational therapy through [facility]. Plan return home with family assist and outpatient physical and occupational therapy. Will continue to follow. SIGNATURE: Jackelin Barroso RN PATIENT NAME: Elba Diaz DATE: May 17, 2020 TIME: 4:27 PM PAGER/CONTACT #: [phone] [facility] CONSULTon 05-17-2020 CONSULT HNO ID: [id number] Author: Stew Ellison Jr. Service: Neurology Stroke [...] Diaz a 70 year old female from [place], visiting [place] to get PT and see her son, who presented to the [facility] initially with a chief complaint of a [...] 2020 TIME: 3:55 PM PAGER/CONTACT #: [phone] [facility] ED NOTEon 05-17-2020 ED NOTE HNO ID: [id number] Author: Alex Wilson RN Service: Emergency Medicine Author Type: Registered Nurse Type: ED Notes Filed: 05/16/2020 10:39 PM Note Text: Patient's identity verified by patient stating name, Patient's identity verified by patient stating date, Patient's identity verified by hospital ID samuel. Nasal swab collected, labeled in the presence of the patient and sent to lab for testing of,Covid 19 Side rails up, Cart/Stretcher in lowest position, Call light within reach, Hospital ID band on. Normal [facility] ED NOTE HNO ID: [id number] Author: Alex BarronRn) MONAE Wilson Service: Emergency Medicine Author Type: Registered Nurse Type: ED Notes Filed: 05/16/2020 10:17 PM Note Text: Pt straight cathed 400cc obtained, sample collected Normal [facility] HISTORY PHYSICALon 0 HISTORY PHYSICAL HNO ID: [id number] Author: Elli Boland) Mildred Service: Hospital Medicine Author Type: Physician Type: HANDP Filed: 05/17/2020 2:34 AM Note Text: DEPARTMENT OF HOSPITAL MEDICINE HISTORY AND PHYSICAL EXAM SERVICE DATE: 05/16/2020 SERVICE TIME: 10:34 PM Primary Care Physician: No primary care provider on file. NIGHT AND WEEKEND COVERAGE: [place] COVERAGE: From 7am - 7pm, please call admit After 7pm, please call cross cover pager #[phone] Subjective CHIEF COMPLAINT: convulsions HPI: This is [...] Aneurysm (HCC) ? ? cranial x2 (3mm) Rcvicky, L temp - Colon polyp ? - [...] (Src) 98.2 (Oral) Resp 18 Ht 5' 4" (1.63m) Wt 150 lb (68.0kg) SpO2 97% [...] postictal confusion check EEG. Continue with the Zuleyka. Neurology consult. Patient is on multiple medications [...] 16, 2020 TIME: 10:34 PM PAGER/CONTACT #: admit [phone] [phone] Normal [facility] Hemogramon 05-17-2020 Erythrocyte distribution width (RBC) [Ratio] 13.0 % Normal 11.7-14.4 [facility] Comment on above: Performed By: #### C BCD1 #### [place] [address] Hematocrit (Bld) [Volume fraction] 32.5 % Low 34.1-44.9 [facility] Comment on above: Performed By: #### C BCD1 #### [place] [address] Hemoglobin (Bld) [Mass/Vol] 11.0 g/dL Low 11.2-15.7 [facility] Comment on above: Performed By: #### C BCD1 #### [place] [address] MCH (RBC) [Entitic mass] 32.6 pg High 25.6-32.2 [facility] Comment on above: Performed By: #### C BCD1 #### [place] [address] MCHC (RBC) [Mass/Vol] 33.8 % Normal 31.6-34.8 [facility] Comment on above: Performed By: #### C BCD1 #### [place] [address] MCV (RBC) [Entitic vol] 96.4 fL High 79.4-94.8 [facility] Comment on above: Performed By: #### C BCD1 #### [place] [address] Platelet mean volume (Bld) [Entitic vol] 9.8 fL Normal 9.4-12.3 [facility] Comment on above: Performed By: #### C BCD1 #### [facility] [address] [place] [id number] Platelets (Bld) [#/Vol] 212 thou/cmm Normal 182-369 [facility] Comment on above: Performed By: #### C BCD1 #### [facility] [address] [place] [address] RBC (Bld) [#/Vol] 3.37 mil/cmm Low 3.93-5.22 [facility] Comment on above: Performed By: #### C BCD1 #### [facility] [address] [place] [address] RDW SD 46.5 fl High 36.4-46.3 [facility] Comment on above: Performed By: #### C BCD1 #### [facility] [address] [place] [address] WBC (Bld) [#/Vol] 8.13 thou/cmm Normal 3.98-10.04 [facility] Comment on above: Performed By: #### C BCD1 #### [place] [address] Lipid Profile, Bas[place] 05-17 Cholesterol [Mass/Vol] 232 mg/dL High 0-199 [facility] Comment on above: Result Comment: Tota l Cholesterol < 200 mg/dL, Desirable Total Cholesterol 200 to 239 mg/dL, Borderline high Total Cholesterol > 239 mg/dL, High Performed By: #### C BCD1 #### [facility] [address] [place] [address] Cholesterol in HDL [Mass/Vol] 79 mg/dL Normal [facility] Comment on above: Result Comment: Refe rence Range: HDL Cholesterol 40- 59 mg/dL, Acceptable HDL Cholesterol >59 mg/dL, High; Negative risk factor for coronary heart disease HDL Cholesterol <40 mg/dL, Low; Positive risk factor for coronary heart disease Performed By: #### C BCD1 #### [facility] [address] [place], [place] [address] Cholesterol in LDL [Mass/Vol] 128 mg/dL High 0-99 [facility] Comment on above: Result Comment: LDL Cholesterol < 100 mg/dL, Optimal LDL Cholesterol 100 to 129 mg/dL, Near optimal/above optimal LDL Cholesterol 130 to 159 mg/dL, Borderline high LDL Cholesterol 160 to 189 mg/dL, High LDL Cholesterol > 189 mg/dL, Very high Secondary prevention optimal LDL Cholesterol levels are recommended to be < 70 mg/dL Performed By: #### C BCD1 #### [place] [address] Cholesterol in LDL/Cholesterol in HDL [Mass ratio] 1.62 Normal 0.00-2.53 [facility] Comment on above: Performed By: #### C BCD1 #### [place] [address] Cholesterol.total/Blessing sterol in HDL [Mass ratio] 2.94 {ratio} Normal 0.00-5.09 [facility] Comment on above: Performed By: #### C BCD1 #### [address] [address] Non-HDL Cholesterol 153 mg/dL High 0-129 [facility] Comment on above: Result Comment: Non HDL [...] mg/dL Performed By: #### C BCD1 #### [address] [address] Triglyceride Blood 127 mg/dL Normal 0-149 [facility] Comment on above: Result Comment: Trig lycerides < 150 mg/dL, Normal Triglycerides 150 to 199 mg/dL, Borderline high Triglycerides 200 to 499 mg/dL, High Triglycerides > 499 mg/dL, Very high Performed By: #### C BCD1 #### [address] [address] VLDL Cholesterol 25 mg/dL Normal 0-29 [facility] Comment on above: Performed By: #### C BCD1 #### [facility] [address] [place], [place] [address] Magnesium Bloodon 05-17-2020 Magnesium [Mass/Vol] 2.1 mg/dL Normal 1.7-2.3 [facility] Comment on above: Performed By: #### C BCD1 #### [facility] [address] [place], [place] [address] PROGRESSon 05-17-2020 PROGRESS HNO ID: [id number] Author: Leonel Lund Service: Hospital Medicine Author [...] after being treated for UTI and dehydration. Svqjosvx-ys-ete was concerned that patient was having some confusion and paranoia at home was seeing people who were not there, no similar event in the hospital. PHYSICAL EXAM: BP 132/80 Pulse 72 Temp 36.7 ?C (98.1 ?F) (Oral) Resp 16 Ht 162.6 cm (5' 4") Wt 72.7 kg (160 lb 4.8 oz) [...] 14 CREAT 0.95 0.99* CHEM: Recent Labs 07/27/20 0345 07/26/20 1919 07/26/20 0345 ALB -- 4.5 -- TPROT -- 7.5 -- CA 9.4 9.6 -- MG -- -- 2.1 HEPATIC: Recent Labs 05/16/20 1919 ALKPHOS 108 ALT 61* AST 49* TBILI 0.2 URINALYSIS: Recent Labs 05/16/20 2215 SPGR 1.017 UGLUC NEGATIVE UBILI NEGATIVE UKET NEGATIVE UPROT 100* UROBIL 0.2 UWBC 2.4 Plan of care discussion: Plan of care discussed with: Provider, RN, Patient. Leonel Lund MD Pager #[phone] 11:18 AM May 17, 2020 Disclaimer: Portions of this note have been generated using Chirpme voice recognition software. Reasonable efforts were made to correct any dictation errors that resulted due to the programming of this software but some may still be present. Normal [facility] Phosphorous Bloodon 05-17-20 20 Phosphate [Mass/Vol] 2.2 mg/dL Low 2.7-4.8 [facility] Comment on above: Performed By: #### C BCD1 #### [facility] [address] [place], [place] [address] Rapid, COVID 19on 05-17-2020 Rapid, COVID 19 Negative Normal Negative [facility] Comment on above: Result Comment: This test has been authorized by the FDA under an Emergency Use Authorization (EUA). Performed By: #### C BCD1 #### [facility] [address] [place], [place] [address] THERAPY NTon 05-17-2020 THERAPY NT HNO ID: [id number] Author: Dina (Gristmill Operator) TRUNG Hidalgo/DIE REPAIRER STAMPING Service: Speech/Swallow Author Type: Speech Language Pathologist Type: Therapy (PT/OT/Speech/Resp) Filed: 05/17/2020 3:21 PM Note Text: Speech Therapy Clinical Swallow Evaluation SERVICE DATE: 05/17/2020 SERVICE TIME: 1430 to 1502 ROOM: [id number] Nursing Recommendations: Reinforce use of swallowing strategies [...] oral phase Interventions Provided: Clinical Swallow Evaluation (75563) $ Clinical Swallow Evaluation (41992) Billed Units: 1 unit Total Treatment Time [...] for this therapy evaluation/treatment. SIGNATURE: Dina Hidalgo CCC-DIE REPAIRER STAMPING PATIENT NAME: Elba Diaz DATE: May 17, 2020 TIME: 3:13 PM Normal [facility] THERAPY NT HNO ID: [id number] Author: Cristopher (Pt) JHONNY Elkins Service: Physical Therapy Author Type: Physical Therapist Type: Therapy (PT/OT/Speech/Resp) Filed: 05/17/2020 1:28 PM Note Text: Physical Therapy Evaluation SERVICE DATE: 05/17/2020 SERVICE TIME: 1147 to 1212 ROOM: [id number] Recommended Discharge Disposition: Outpatient Physical Therapy Recommended [...] Reduced mobility-other Interventions Provided: Evaluation $ Evaluation-Moderate (53102) Billed Units: 1 unit History and examination [...] to physical therapy. Thanks you've been very nice." Home Environment Patient Lives With: Family(son and [...] challenge or move without loss of balance JH-HLM: 4: Move to chair / commode Please see discipline specific clinical documentation flowsheet for complete details for this therapy evaluation/treatment. SIGNATURE: Cristopher Elkins PT PATIENT NAME: Elba Diaz DATE: May 17, 2020 TIME: 1:25 PM Normal [facility] Urinalysis Routineon 020 Bacteria LM.HPF (Urine sed) [#/Area] NONE Normal None [facility] Comment on above: Performed By: #### C BCD1 #### [place] [address] Ep Cells Urine 2.0 /hpf Normal 0.0-5.0 [facility] Comment on above: Performed By: #### C BCD1 #### [place] [address] Hyaline Cast 0.3 /lpf Normal 0.0-1.0 [facility] Comment on above: Performed By: #### C BCD1 #### [facility] [address] [place] [address] RBC LM.HPF (Urine sed) [#/Area] 3.5 /[HPF] Normal 0.0-5.0 [facility] Comment on above: Performed By: #### C BCD1 #### [facility] [address] [place] [address] WBC LM.HPF (Urine sed) [#/Area] 2.4 /[HPF] Normal 0.0-5.0 [facility] Comment on above: Performed By: #### C BCD1 #### [facility] [address] [place] [address] Appearance (U) CLEAR Normal [facility] Comment on above: Performed By: #### C BCD1 #### [place] [address] Bilirubin (U) [Mass/Vol] Negative Normal Negative [facility] Comment on above: Performed By: #### C BCD1 #### [facility] [address] [place] [address] Color (U) YELLOW Normal [facility] Comment on above: Performed By: #### C BCD1 #### [facility] [address] [place] [address] Glucose Ql (U) Negative Normal Negative [facility] Comment on above: Performed By: #### C BCD1 #### [place] [address] Hemoglobin,Urine Negative Normal Negative [facility] Comment on above: Performed By: #### C BCD1 #### [facility] [address] [place] [address] Ketone Urine Negative Normal Negative [facility] Comment on above: Performed By: #### C BCD1 #### [facility] [address] [place] [address] Leukocytes Esterase Negative Normal Negative [facility] Comment on above: Performed By: #### C BCD1 #### [place] [address] Nitrites Urine Negative Normal Negative [facility] Comment on above: Performed By: #### C BCD1 #### [facility] [address] [place] [address] pH (U) 6.5 [pH] Normal 5.0-8.0 [facility] Comment on above: Performed By: #### C BCD1 #### [facility] [address] [place] [address] Protein (U) [Mass/Vol] 100 mg/dL Abnormal Negative [facility] Comment on above: Performed By: #### C BCD1 #### [facility] [address] [place] [address] Specific [place], Ur 1.017 Normal 1.005-1.030 [facility] Comment on above: Performed By: #### C BCD1 #### [facility] [address] [place] [address] Urobilinogen,Ur 0.2 EU/dL Normal 0.2-1.0 [facility] Comment on above: Performed By: #### C BCD1 #### [facility] [address] [place] [address] Acetaminophenon 05-16-2020 Acetaminophen [Mass/Vol] <5 Low 10-30 [facility] Comment on above: Result Comment: Toxi c >150 ug/mL 4 hours post ingestion. The Salvatore Shirley nomogram can be used to estimate the probability of hepatotoxicity via the relationship of plasma acetaminophen concentration to the post ingestion interval. (Noni. Pediatrics. 1975. 55:871 to 876 and Salvatore et al. Arch Certified Adaptive Physical Educator Med. 1981. 141:380 to 385). Reference ranges and high/low indicator flags are provided as general guidelines only. The treating physician must determine appropriate target levels/dosing based on the specific clinical situation. Performed By: #### C BCD1 #### [facility] [address] [place] [address] Alcohol, Serumon 05-16-2020 Alcohol, Serum <11.0 Normal < 11 [facility] Comment on above: Performed By: #### A LCO3 #### [place] [address] CT BRAIN WO IVCONon 05-16-[address] BRAIN WO IVCON Final Report DATE OF EXAM: May 16 2020 7:26PM [facility] 0504 - CT BRAIN WO [...] base and imaged soft tissues are unremarkable. Rep[employer] (topogram) images: Unremarkable. IMPRESSION: No acute intracranial abnormality is identified. 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 Automatic Screwmaker: ALEXANDRO Transcribe Date/Time: May 16 2020 7:27P Dictated by : BAILEE OROSCO MD This examination was interpreted and the report reviewed and electronically signed by: BAILEE OROSCO MD on May 16 2020 7:30PM EST Normal [facility] Comprehensive Metabolic Pane manan 05-16-2020 Albumin [Mass/Vol] 4.5 g/dL Normal 3.9-4.9 [facility] Comment on above: Performed By: #### C MP #### [facility] [address] [place] [address] ALP [Catalytic activity/Vol] 108 U/L Normal 34-123 [facility] Comment on above: Performed By: #### C MP #### [facility] [address] [place] [address] ALT [Catalytic activity/Vol] 61 U/L High 7-38 [facility] Comment on above: Performed By: #### C MP #### [facility] [address] [place], [place] [address] Anion gap [Moles/Vol] 16 mmol/L Normal 9-18 [facility] Comment on above: Performed By: #### C MP #### [facility] [address], [place] [address] AST [Catalytic activity/Vol] 49 U/L High 13-35 [facility] Comment on above: Performed By: #### C MP #### [facility] [address], [place] [address] Bilirubin [Mass/Vol] 0.2 mg/dL Normal 0.2-1.3 [facility] Comment on above: Performed By: #### C MP #### [facility] [address], [place] [address] Calcium [Mass/Vol] 9.6 mg/dL Normal 8.5-10.2 [facility] Comment on above: Performed By: #### C MP #### [facility] [address], [place] [address] Chloride [Moles/Vol] 98 mmol/L Normal 97-105 [facility] Comment on above: Performed By: #### C MP #### [facility] [address], [place] [address] CO2 Blood 23 mmol/L Normal 22-30 [facility] Comment on above: Performed By: #### C MP #### [facility] [address], [place] [address] Creatinine [Mass/Vol] 0.99 mg/dL High 0.58-0.96 [facility] Comment on above: Performed By: #### C MP #### [facility] [address], [place] [address] Glucose [Mass/Vol] 119 mg/dL High 74-99 [facility] Comment on above: Result Comment: The [place] Diabetes Association (ADA) provides guidance for cutoff [...] Standards of Medical Care in Diabetes 2016; [place] [employer] Association. Diabetes Care. 2016;39(Suppl 1). Performed By: #### C MP #### [facility] [address] [place] [address] Potassium [Moles/Vol] 3.6 mmol/L Low 3.7-5.1 [facility] Comment on above: Performed By: #### C MP #### [facility] [address] [place] [address] Protein [Mass/Vol] 7.5 g/dL Normal 6.3-8.0 [facility] Comment on above: Performed By: #### C MP #### [facility] [address] [place] [address] Sodium [Moles/Vol] 137 mmol/L Normal 136-144 [facility] Comment on above: Performed By: #### C MP #### [facility] [address] [place] [address] Urea nitrogen [Mass/Vol] 14 mg/dL Normal 7-21 [facility] Comment on above: Performed By: #### C MP #### [place] [address] ED NOTEon 05-16-2020 ED NOTE HNO ID: [id number] Author: Alex Wilson RN Service: Emergency Medicine Author Type: Registered Nurse Type: ED Notes Filed: 05/16/2020 8:19 PM Note Text: Pt placed on bed lara [facility] ED NOTE HNO ID: [id number] Author: Alex Wilson RN Service: Emergency Medicine Author Type: Registered Nurse Type: ED Notes Filed: 05/16/2020 8:02 PM Note Text: [facility] ED NOTE HNO ID: [id number] Author: Alex Wislon RN Service: Emergency Medicine Author Type: Registered Nurse Type: ED Notes Filed: 05/16/2020 8:02 PM Note Text: Son at bedside Normal [facility] ED NOTE HNO ID: [id number] Author: Alex Wilson RN Service: Emergency Medicine Author Type: Registered Nurse Type: ED Notes Filed: 05/16/2020 7:20 PM Note Text: Pt to radiology Normal [facility] ED NOTE HNO ID: [id number] Author: Alex Wilson RN Service: Emergency Medicine Author Type: Registered Nurse Type: ED Notes Filed: 05/16/2020 7:17 PM Note Text: ED CT and xray notified Normal [facility] ED NOTE HNO ID: [id number] Author: Alex Tiwari) MONAE Wilson Service: Emergency Medicine Author Type: Registered Nurse Type: ED Notes Filed: 05/16/2020 7:10 PM Note Text: Dr Thompson in to assess pt Normal [facility] ED NOTE HNO ID: [id number] Author: Stew (Medic) [place] Gu Service: ? 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 [employer] Type: ED Notes Filed: 05/16/2020 6:49 PM Note Text: Bed: 14-ED Expected date: 05/16/20 Expected time: 6:39 PM Means of arrival: Jermain DE LOS SANTOS Comments: Poss. Seizure Med 10 Normal [facility] ED PROV NOTEon 05-16-2020 ED PROV NOTE HNO ID: [id number] Author: Meenu Thompson MD Service: Emergency Medicine [...] condition. Meenu Thompson MD 05/16/20 1938 Normal [facility] ED PROV NOTE HNO ID: [id number] Author: Meeun Thompson MD Service: Emergency Medicine Author Type: Physician Type: ED Provider Notes Filed: 05/16/2020 11:37 PM Note Text: ED Provider Note Patient Name: Elba Castaneda SERVICE DATE: 05/16/20 History Patient presents with: Seizures: family called EMS due to "jerking" and pseudoseizures. upon EMS arrival, pt not [...] says that her family called medics for "jerking" of the patient. Medics reportedly placed ammonia [...] as last known well prior to this "seizing" episode. The patient is altered with AANDO x1 . I am unable to obtain a history or ROS, and the physical exam is limited by lack of cooperation by patient. She is not complaining of any pain or symptoms at this time. The patient is perseverating and continually stating her date as well as asking "Why am I here?", "What did I do wrong?". Her son, Mauricio, is at bedside. He states that the patient was admitted to [facility] on Sunday for UTI and low [...] that she is on a bunch of medications" but denies any history of seizure. When asked if he was sure that she was admitted to [facility] due to her lack of records, [...] (Src) 98.2 (Oral) Resp 18 Ht 5' 4" (1.63m) Wt 150 lb (68.0kg) SpO2 97% [...] as of May 16 2314 Juan C (Res) Nefatli's Documentation Sun May 16, [address] BRAIN WO IVCON [...] states that the patient was admitted to [facility] on Sunday for UTI and low [...] that she is on a bunch of medications" but denies any history of seizure. When asked if he was sure that she was admitted to [facility] due to her lack of records, [...] further management. SIGNATURE: DO Juan C Ramon (Res) DO Ralph Lindsay 05/16/20 1917 Attending Note I evaluated the patient and personally participated in the holm components. I agree with the resident's findings and plan as documented and have discussed the case and management of the patient's care with the resident. Signature: Meenu Thompson MD Date: 05/16/2020 Time: 11:37 PM Meenu Thompson MD 05/16/20 7611 Normal [facility] Glucose Meteron 05-16-2020 Glucose [Mass/Vol] 125 mg/dL High 70-99 [facility] Comment on above: Performed By: #### G LMET #### [place] [address] Hemogram/Diffon 05-16-2020 Abs Immature Grans 0.05 thou/cmm Normal 0.00-0.05 [facility] Comment on above: Performed By: #### C BCD1 #### [place] [address] Abs Neut (ANC) 8.20 thou/cmm High 1.56-6.13 [facility] Comment on above: Performed By: #### C BCD1 #### [place] [address] Abs. Baso 0.03 thou/cmm Normal 0.01-0.08 [facility] Comment on above: Performed By: #### C BCD1 #### [place] [address] Abs. Jenkins 0.40 thou/cmm Normal 0.27-0.70 [facility] Comment on above: Performed By: #### C BCD1 #### [facility] [address], [place] [address] Basophils/100 WBC (Bld) 0.3 % Normal [facility] Comment on above: Performed By: #### C BCD1 #### [facility] [address] [place] [address] Eosinophils (Bld) [#/Vol] 0.03 thou/cmm Normal 0.00-0.31 [facility] Comment on above: Performed By: #### C BCD1 #### [facility] [address] [place] [address] Eosinophils/100 WBC (Bld) 0.3 % Normal [facility] Comment on above: Performed By: #### C BCD1 #### [place] [address] Erythrocyte distribution width (RBC) [Ratio] 13.1 % Normal 11.7-14.4 [facility] Comment on above: Performed By: #### C BCD1 #### [facility] [address] [place] [address] Hematocrit (Bld) [Volume fraction] 36.3 % Normal 34.1-44.9 [facility] Comment on above: Performed By: #### C BCD1 #### [facility] [address] [place] [address] Hemoglobin (Bld) [Mass/Vol] 12.3 g/dL Normal 11.2-15.7 [facility] Comment on above: Performed By: #### C BCD1 #### [facility] [address] [place] [address] Immature Grans 0.50 % Normal [facility] Comment on above: Performed By: #### C BCD1 #### [facility] [address] [place] [address] Lymphocytes (Bld) [#/Vol] 1.77 thou/cmm Normal 1.18-3.74 [facility] Comment on above: Performed By: #### C BCD1 #### [facility] [address], [place] [address] Lymphocytes/100 WBC (Bld) 16.9 % Normal [facility] Comment on above: Performed By: #### C BCD1 #### [facility] [address], [place] [address] MCH (RBC) [Entitic mass] 32.7 pg High 25.6-32.2 [facility] Comment on above: Performed By: #### C BCD1 #### [facility] [address], [place] [address] MCHC (RBC) [Mass/Vol] 33.9 % Normal 31.6-34.8 [facility] Comment on above: Performed By: #### C BCD1 #### [facility] [address] [place] [address] MCV (RBC) [Entitic vol] 96.5 fL High 79.4-94.8 [facility] Comment on above: Performed By: #### C BCD1 #### [facility] [address] [place] [address] Monocytes/100 WBC (Bld) 3.8 % Normal [facility] Comment on above: Performed By: #### C BCD1 #### [facility] [address] [place] [address] Platelet mean volume (Bld) [Entitic vol] 9.8 fL Normal 9.4-12.3 [facility] Comment on above: Performed By: #### C BCD1 #### [facility] [address], [place] [address] Platelets (Bld) [#/Vol] 249 thou/cmm Normal 182-369 [facility] Comment on above: Performed By: #### C BCD1 #### [facility] [address], [place] [address] RBC (Bld) [#/Vol] 3.76 mil/cmm Low 3.93-5.22 [facility] Comment on above: Performed By: #### C BCD1 #### [facility] [address] [place] [address] RDW SD 46.2 fl Normal 36.4-46.3 [facility] Comment on above: Performed By: #### C BCD1 #### [facility] [address], [place] [address] Seg Neutrophil 78.2 % Normal [facility] Comment on above: Performed By: #### C BCD1 #### [facility] [address], [place] [address] WBC (Bld) [#/Vol] 10.49 thou/cmm High 3.98-10.04 [facility] Comment on above: Performed By: #### C BCD1 #### [facility] [address] [place] [address] Protimeon 05-16-2020 INR Coag (PPP) [Relative time] 0.96 {INR} Normal 0.90-1.30 [facility] Comment on above: Result Comment: Saundra min K Antagonist (VKA) Therapeutic Range: INR 2 to 3 (Target INR of 2.5) Note: For patients treated with VKA drugs, such as warfarin, the [place] [employer] 2012 Guideline recommends [...] to 3.5 target INR of 3). Delaney GH, et al. Chest 2012; 141:7S-47S Connor RA et al. JACC 2017; 70: 252-289 Performed By: #### P T #### [facility] [address], [place] [address] PT Coag (PPP) [Time] 10.4 s Normal 9.7-13.0 [facility] Comment on above: Performed By: #### P T #### [facility] [address] [place] [id number] Salicylateon 05-16-2020 Salicylate <1.0 Low 3.0-30.0 [facility] Comment on above: Result Comment: The therapeutic range varies and has been reported to be 3.0 to 10.0 mg/dL for anti-pyretic/analgesic conditions and 15.0 to 30.0 mg/dL for anti-inflammatory/rheumatic fever conditions. Ranges published by the instrument utility gelatin maker. Reference ranges and high/low indicator flags are provided as general guidelines only. The treating physician must determine appropriate target levels/dosing based on the specific clinical situation. Performed By: #### C BCD1 #### [place] [address] Troponin T, High Sens.on Troponin T, High Sens. 17 ng/L High 0-11 [facility] Comment on above: Result Comment: Faiza ents [...] result. Performed By: #### T ROPT #### [place] [address] Urine Drug Screenon 05-16-20 20 Urine Alcohol <11 Normal 0- [facility] Comment on above: Performed By: #### C BCD1 #### [place] [address] Urine Amphetamine Negative Normal NEGATIVE [facility] Comment on above: Performed By: #### C BCD1 #### [place] [address] Urine Barbiturates Negative Normal NEGATIVE [facility] Comment on above: Performed By: #### C BCD1 #### [place] [address] Urine Benzodiazepine Negative Normal NEGATIVE [facility] Comment on above: Performed By: #### C BCD1 #### [address], [place] [address] Urine Cocaine Metab Negative Normal NEGATIVE [facility] Comment on above: Performed By: #### C BCD1 #### [facility] [address], [place] [address] Urine Opiates Negative Normal NEGATIVE [facility] Comment on above: Performed By: #### C BCD1 #### [facility] [address], [place] [address] Urine Oxycodone Negative Normal NEGATIVE [facility] Comment on above: Performed By: #### C BCD1 #### [facility] [address], [place] [address] Urine PCP Negative Normal NEGATIVE [facility] Comment on above: Result Comment: Test Cutoff [...] the same specimen through the laboratory at ([phone]) if contacted within 48 hours of initial 1. Substance Abuse and Mental Health Services Administration (2012). Clinical Drug Testing in Primary Care Technical Assistance Publication Series 32. Department of Health and Human Services, [place], p.10. Performed By: #### C BCD1 #### [facility] [address], [place] [address] Urine THC Negative Normal NEGATIVE [facility] Comment on above: Performed By: #### C BCD1 #### [facility] [address], [place] [address] XR CHEST 2V FRONTAL/LATon XR CHEST 2V [...] Unremarkable. IMPRESSION: No definite acute radiographic abnormality. Automatic Screwmaker: PSCB Transcribe Date/Time: May 16 2020 7:42P Dictated by : ROSY VALDEZ MD This examination was interpreted and the report reviewed and electronically signed by: ROSY VALDEZ MD on May 16 2020 7:43PM EST Normal [facility] CT ANGIOGRAPHY NECK W/CONTRA STon 04-06-2020 CT [...] Date: 04/06/2020 9:19:23 AM Ordering Provider:Michael Castanon [facility] ([place]) Culture, urine Bacteria identified Cx Nom (U) Yeast, not Karen albicans [facility] Work Phone: Vital Signs Date Time Vital Sign Value Performing Clinician Facility 05-26-2025 10:04-0400 Body height 160 cm Paty Fonseca CLINICAL REHABILITATION AIDE-WAREHOUSE ADMINISTRATIVE ASSISTANT Work Phone: [facility] 05-26-2025 10:04-0400 Body height 160.02 cm Paty Fonseca CLINICAL REHABILITATION AIDE-WAREHOUSE ADMINISTRATIVE ASSISTANT Work Phone: [facility] 05-26-2025 10:04-0400 Body mass index (BMI) [Ratio] 30.22 kg/m2 Paty Fonseca CLINICAL REHABILITATION AIDE-WAREHOUSE ADMINISTRATIVE ASSISTANT Work Phone: [facility] 05-26-2025 10:04-0400 Body weight 77 kg Paty Fonseca CLINICAL REHABILITATION AIDE-WAREHOUSE ADMINISTRATIVE ASSISTANT Work Phone: [facility] 05-26-2025 10:04-0400 Body weight 77.11 kg Paty Smithgar CLINICAL REHABILITATION AIDE-WAREHOUSE ADMINISTRATIVE ASSISTANT Work Phone: [facility] 05-26-2025 10:04-0400 BP SITE #1 Paty Fonseca CLINICAL REHABILITATION AIDE-WAREHOUSE ADMINISTRATIVE ASSISTANT Work Phone: [facility] 05-26-2025 10:04-0400 Diastolic blood pressure 80 mm[Hg] Paty Sarahmarlee CLINICAL REHABILITATION AIDE-WAREHOUSE ADMINISTRATIVE ASSISTANT Work Phone: [facility] 05-26-2025 10:04-0400 Heart rate 81 /min Paty Sarahmarlee CLINICAL REHABILITATION AIDE-WAREHOUSE ADMINISTRATIVE ASSISTANT Work Phone: [facility] 05-26-2025 10:04-0400 HGHTCHNVIS Paty Smithgar CLINICAL REHABILITATION AIDE-WAREHOUSE ADMINISTRATIVE ASSISTANT Work Phone: [facility] 05-26-2025 10:04-0400 Systolic blood pressure 130 mm[Hg] Paty Sarahmarlee CLINICAL REHABILITATION AIDE-WAREHOUSE ADMINISTRATIVE ASSISTANT Work Phone: [facility] 05-26-2025 10:04-0400 VITALSDONE Paty Fonseca CLINICAL REHABILITATION AIDE-WAREHOUSE ADMINISTRATIVE ASSISTANT Work Phone: [facility] 03-25-2025 09:37-0400 Diastolic blood pressure 56 mm[Hg] Stew Oswald MD Work Phone: [facility] 03-25-2025 09:37-0400 Heart rate 51 /min Stew Oswald MD Work Phone: [facility] 03-25-2025 09:37-0400 Systolic blood pressure 90 mm[Hg] Stew Oswald MD Work Phone: [facility] 02-06-2025 08:58-0400 Diastolic blood pressure 85 mm[Hg] Stew Oswald MD Work Phone: [facility] 02-06-2025 08:58-0400 Heart rate 84 /min Stew Oswald MD Work Phone: [facility] [employer] 02-06-2025 08:58-0400 Systolic blood pressure 134 mm[Hg] Stew Oswald MD Work Phone: [facility] [employer] Encounters Encounter Date Encounter Type Care Provider Facility Start: 06-17-2025 ambulatory Robb ROB Facil ity:[facility] Start: 05-26-2025 In-person encounter Paty Fonseca CLINICAL REHABILITATION AIDE-WAREHOUSE ADMINISTRATIVE ASSISTANT Work Phone: [facility] Work Phone: Start: 05-26-2025 Visit out of hours Paty Raymundo CLINICAL REHABILITATION AIDE-WAREHOUSE ADMINISTRATIVE ASSISTANT Work Phone: [employer] Work Phone: Start: 04-01-2025 ambulatory Robb ROB Facil ity:[facility] Start: 04-01-2025 Registered Referred Robb Montoya - [address] Start: 03-25-2025 End: 03-25-2025 Office outpatient visit 15 minutes Stew Oswald MD Work Phone: [facility] Comment on above: Focal epilepsy with impairment of consciousness, intractable (HCC) (Primary Dx); Carotid stenosis, symptomatic, with infarction (HCC); Hemiparesis affecting left side as late effect of cerebrovascular accident (CVA) (HCC) Start: 03-25-2025 End: 03-25-2025 ambulatory [facility] Start: 03-06-2025 End: 03-06-[address] [facility] Work Phone: Start: 03-06-2025 End: 03-06-2025 Departed Referred Robb Montoya - [address] Start: 03-06-2025 End: 03-06-2025 ambulatory Robb ROB Facility:[facility] Start: 02-12-2025 End: 02-12-2025 ambulatory [facility] Start: 02-10-2025 End: 02-10-2025 Telephone encounter Stew Oswald MD Work Phone: [facility] Start: 02-06-2025 End: 02-06-2025 Office outpatient new 60 minutes Stew Oswald MD Work Phone: [facility] Comment on above: Focal epilepsy with impairment of consciousness, intractable (HCC) (Primary Dx); Carotid stenosis, symptomatic, with infarction (HCC); Hemiparesis affecting left side as late effect of cerebrovascular accident (CVA) (HCC) Start: 02-06-2025 End: 02-06-2025 ambulatory STEW OSWALD [facility] Start: 01-14-2025 End: 01-14-[address] [facility] Work Phone: Start: 01-14-2025 End: 01-14-2025 Departed Referred Robb Barnes [facility] [address] Start: 01-14-2025 End: 01-14-2025 ambulatory Robb ROB Facility:[facility] Start: 01-09-2025 End: 01-13-2025 Evaluation and management of inpatient ELIA ICKES II Facility:[facility] Start: 01-01-2025 End: 01-15-2025 Telephone encounter Stew Oswald MD Work Phone: [facility] Comment on above: Appointment Request Start: 12-31-2024 ambulatory Robb ROB Facil ity:[facility] Start: 12-31-2024 Registered Referred Robb pyle [place] [address] Start: 12-30-2024 Registered Referred Robb [facility] [place] - [address] Start: 12-30-2024 End: 12-30-2024 ambulatory Robb ROB Facility:[facility] Start: 12-24-2024 ambulatory [facility] Facility:[facility] Start: 12-24-[address] [facility] -[facility] - [address] Start: 12-22-2024 ambulatory Robb ROB Facil ity:[facility] Start: 12-22-2024 Registered Referred Robb Moses [facility] [place] - [address] Start: 12-14-2024 Emergency department patient visit ELIA CARRENO II Facility:[facility] Start: 11-27-2024 ambulatory Robb ROB Facil ity:[facility] Start: 11-27-2024 Registered Referred Robb Barnes -[facility] [place] - [address] Start: 10-27-2024 Registered [facility] [place] [address] Start: 10-27-2024 End: 10-27-2024 ambulatory Robb ROB Facility:[facility] Start: 08-27-2024 End: 08-27-2024 ambulatory Robb ROB Facility:[facility] Start: 08-22-2024 End: 08-22-2024 ambulatory Robb ROB Facility:[facility] Start: 12-24-2023 End: 12-24-[address] [facility] Work Phone: Start: 12-24-2023 End: 12-24-[address] [facility] [place] [address] Start: 11-13-2023 End: 11-13-[address] [facility] Work Phone: Start: 11-13-2023 End: 11-13-[address] [facility] [address] Start: 11-13-2023 Registered Referred [facility] [place] - [address] Start: 11-08-2023 End: 11-08-[address] [facility] Work Phone: Start: 11-08-2023 End: 11-08-[address] [facility] [place] - [address] Start: 08-24-2023 End: 08-24-[address] [facility] Work Phone: Start: 08-24-2023 End: 08-24-[address] [facility] [place] - [address] Start: 08-03-2023 End: 08-03-[address] [facility] Work Phone: Start: 08-03-2023 End: 08-03-[address] [facility] [place] - [address] Start: 06-07-2023 End: 06-07-[address] [facility] [place] - [address] Start: 03-20-2023 End: 03-20-[address] [facility] Work Phone: Start: 03-20-2023 End: 03-20-[address] [facility] [place] - [address] Start: 01-04-2023 End: 01-04-[address] [facility] Work Phone: Start: 01-04-2023 End: 01-04-[address] [facility] [place] [address] Start: 09-13-2022 End: 09-13-[address] [facility] Work Phone: Start: 09-13-2022 End: 09-13-[address] [facility] [place] - [address] Start: 09-06-2022 ambulatory Marcus Tierney MD Work Phone: Internal Medicine [facility] Start: 08-03-2022 End: 08-03-[address] [facility] Work Phone: Start: 08-03-2022 End: 08-03-[address] [facility] [place] [address] Start: 06-25-2022 End: 06-25-[address] [facility] Work Phone: Start: 06-25-2022 End: 06-25-[address] [facility] [place] - [address] Start: 06-21-2022 Telephone encounter Bipin Dennis MD Work Phone: [facility] Comment on above: Appointment Start: 06-19-2022 Telephone encounter Bipin Dennis MD Work Phone: [facility] Comment on above: Appointment Start: 04-21-2022 End: 04-21-2022 Departed Referred [facility] [place] [address] Start: 02-28-2022 End: 02-28-2022 Departed Referred [facility] - [address] Start: 12-05-2021 End: 12-05-2021 Departed Referred [facility] [place] - [address] Start: 12-05-2021 Registered Referred [facility] [place] - [address] Start: 12-01-2021 End: 12-01-2021 Departed Referred [facility] [place] - [address] Start: 12-01-2021 Registered Referred [facility] [place] - [address] Start: 11-16-2021 [facility] [address] Start: 11-08-2021 [facility] Start: 10-21-2021 [facility] Start: 09-19-2021 [facility] Procedures Date Procedure Procedure Detail Performing Clinician Start: 05-26-2025 Blood pressure within normal parameters - no follow-up required Paty Fonseca APRN-WAREHOUSE ADMINISTRATIVE ASSISTANT Work Phone: Start: 05-26-2025 BMI outside of normal parameters - no follow-up plan/reason not given Paty Fonseca APRN-WAREHOUSE ADMINISTRATIVE ASSISTANT Work Phone: Start: 05-26-2025 Current tobacco non-user cad cap copd pv dm Paty Fonseca CLINICAL REHABILITATION AIDE-WAREHOUSE ADMINISTRATIVE ASSISTANT Work Phone: Start: 05-26-2025 Documentation of current medications Paty Fonseca APRN-WAREHOUSE ADMINISTRATIVE ASSISTANT Work Phone: Start: 05-26-2025 Pain assessment documented as positive - no follow-up/reason not given Paty Fonseca APRN-WAREHOUSE ADMINISTRATIVE ASSISTANT Work Phone: Start: 04-01-2025 Urnls dip stick/tablet reagent auto microscopy Robb ROB Start: 04-01-2025 Urine culture [facility] Start: 03-06-2025 Procedure Robb ROB Comment on above: Test Ordered: [id number] LacosamideTest(s) 0 12622-Cbnufazodptes developed and its performance characteristicsdetermined by [employer]. It has not been cleared or approvedby the Food and Drug Administration.Lacosamide 7.2 ug/mL Reference Range: 5.0-10.0 Limit of Detection 0.5 Mean plasma concentrations following maintenance dose 200 mg/day 4.99 +/- 2.51 ug/mL 400 mg/day 9.35 +/- 4.22 ug/mL 600 mg/day 12.46 +/- 5.60 ug/mLPerformed at: [address] [id number] Director: Hank Spangler MD, Phone: [phone] at: [address] [id number] Director: Angel Franklin PhD, Phone: [phone] Start: 01-10-2025 Thyrotropin [Units/volume] in Serum or [...] Activity Detail Author Start: 02-20-2028 Colonoscopy COLONOSCOPY [facility] Start: 02-20-2028 COLORECTAL CANCER SCREENING COLORECTAL CANCER SCREENING [facility] Start: 2026 RSV Immunization for Adults (1 - 1-dose 75+ series) RSV Immunization for Adults (1 - 1-dose 75+ series) [facility] Start: 02-08-2026 LIPID SCREEN LIPID SCREEN [facility] Start: 01-10-2026 Thyroid stimulating hormone measurement TSH Level [facility] Start: 09-24-2025 End: 09-24-2025 Patient encounter procedure 09/24/2025 10:40 AM EST Office Visit [facility] [address] [phone] Stew Oswald MD [address] [address] [facility] Start: 07-02-2025 End: 07-02-2025 [employer] Work Phone: Start: 06-22-2025 Influenza vaccination Influenz a Vaccine (Season Ended) [facility] Start: 05-26-2025 End: 05-26-2025 [employer] Work Phone: Start: 05-26-2025 Fluoroscopic guidanc e needle placement add on [facility] [place] Work Phone: Start: 04-09-2025 End: 04-09-2025 Patient encounter procedure 04/09/2025 9:20 AM EDT Office Visit [facility] [address] [phone] Stew Oswald MD [address] [address] [facility] Start: 03-25-2025 End: 03-25-2025 Patient encounter procedure 03/25/2025 10:20 AM EDT Office Visit [facility] [address] [phone] Stew Oswald MD [address] [address] [facility] Start: 03-08-2025 End: 02-06-2026 Lacosamide level Lacosamide level Lab Routine Focal epilepsy with impairment of consciousness, intractable (HCC) Expected: 03/08/2025 (Approximate), Expires: 02/06/2026 [facility] Work Phone: Comment on above: Expected: 03/08/2025 (Approximate), Expires: 02/06/2026 Start: 02-12-2025 End: 02-12-2025 Patient encounter procedure 02/12/2025 11:00 AM EDT Appointment [facility] [address] [place] [address] Stew Oswald MD [address] [facility] [address] [place] [address] [facility] Start: 11-04-2024 DIABETES SCREEN DIABETES SCREEN [facility] Start: 10-22-2024 Medicare Advantage Annual Wellness Visit Medicare Advantage Annual Wellness Visit [facility] Start: 06-22-2024 COVID-19 Vaccine ( season) COVID-19 Vaccine ( season) [facility] Start: 06-22-2024 Influenza vaccination Influenza Vacc ine (#1) [facility] Start: 10-21-2022 FECAL OCCULT BLOOD FECAL OCCULT BLOO D [facility] Start: 10-21-2022 Screening for malign ant neoplasm of colon [facility] Start: 07-21-2022 Mammography MAMMOGRAM [facility] Start: 06-22-2022 Influenza vaccination INFLUENZA (#1) [facility] Start: 10-27-2021 ANNUAL PCP TEAM VEGETABLE SPECKER DAMEON DISEASE VISIT ANNUAL PCP TEAM CHRONIC DISEASE VISIT [facility] Start: 10-22-2021 ADVANCE DIRECTIVE DISCUSSION ADVANCE DIRECTIVE DISCUSSION [facility] Start: 02-16-2021 DTaP/Tdap/Td Vaccine s (2 - Td or Tdap) DTaP/Tdap/Td Vaccines (2 - Td or Tdap) [facility] Start: 02-16-2021 Urine microalbumin profile DTAP,TDAP,TD (2 - Td or Tdap) [facility] Start: 09-28-2020 SHINGRIX VACCINE (3 of 3) SHINGRIX VACCINE (3 of 3) [facility] Start: 09-28-2020 Zoster Vaccines (3 o f 3) Zoster Vaccines (3 of 3) [facility] Start: 1996 COLOGUARD (FIT-DNA) COLOGUARD (FIT-D NA) [facility] Start: [address] COLONOGRAPHY [facility] Start: 1996 SIGMOIDOSCOPY SIGMOIDOSCOPY [facility] Start: 1991 Screening for malign ant neoplasm of breast Mammogram [facility] Start: 1969 BP CONTROLLED (<130/80) BP CONTROLLE D (<130/80) [facility] Start: 1969 Hepatitis C screening Hepatitis C Sc reening [facility] Start: 1963 Depression Monitoring Depression Mon itoring [facility] Start: 1950 COVID-19 VACCINE (#1) COVID-19 VACCI NE (#1) [facility] Start: 1950 Lipid panel Lipid Panel [facility] Start: 1950 Screening for malign ant neoplasm of colon [facility] End: 10-06-2023 Screening mammography bi 2-view breast inc cad JANET SCREENING Radiology Routine Encounter for screening mammogram for breast cancer 1 Occurrences starting 09/06/2022 until 10/06/2023 [facility] Work Phone: Comment on above: 1 Occurrences starti ng 09/06/2022 until 10/06/[facility] Immunization Date Immunization Notes Care Provider Fa [facility] 08-03-2020 influenza, high dose seasonal, preservative-free Bipin Dennis MD Work Phone: [facility] 08-03-2020 zoster vaccine recombinant Bipin Dennis MD Work Phone: [facility] 08-03-2020 influenza virus vacc ine, unspecified formulation Stew Oswald MD Work Phone: [facility] 09-19-2019 Seasonal trivalent influenza vaccine, adjuvanted, preservative free Bipin Dennis MD Work Phone: [facility] 08-19-2018 pneumococcal polysaccharide vaccine, 23 valent Bipin Dennis MD Work Phone: [facility] 08-19-2018 Seasonal trivalent influenza vaccine, adjuvanted, preservative free Bipin Dennis MD Work Phone: [facility] 07-29-2017 influenza, high dose seasonal, preservative-free Bipin Dennis MD Work Phone: [facility] 03-26-2017 pneumococcal conjuga te vaccine, 13 valent Bipin Dennis MD Work Phone: [facility] 07-21-2016 influenza, seasonal, injectable Bipin Dennis MD Work Phone: [facility] 05-18-2015 zoster vaccine, live Bipin Dennis MD Work Phone: [facility] 04-21-2015 zoster vaccine, live Bipin Dennis MD Work Phone: [facility] 07-07-2013 influenza, seasonal, injectable Bipin Dennis MD Work Phone: [facility] 02-16-2011 tetanus toxoid, redu mayelin diphtheria toxoid, and acellular pertussis vaccine, adsorbed Bipin Dennis MD Work Phone: [facility] Payers Date Payer Category Payer Unknown [id number] 2024 Self-pay [id number] 2023 Medicaid [facility] MED[facility] ONLY [id number] 2023 Medicare HMO [id number] 2023 Unknown [id number] [address] [facility] MEDICAID [id number] 2021-Present [phone] [address] [place] [address] Medicaid [id number] 2021 Medicaid [id number] 2021 Medicare [facility] AAR MEDICAR E [facility] MEDICARE HMO [id number] 2021-Present [phone] [address] [address] [place] [address] HMO [id number] 2021 Private Health Insurance [id number] Medicare [id number] Unknown [facility] [id number] Unknown [id number] Unknown [id number] 462 Unknown [id number] 462 Unknown [id number] 462 Unknown [id number] 462 Unknown [id number] 462 Unknown [id number] 462 Unknown [id number] 462 Unknown [id number] 462 Unknown [id number] 462 Unknown [id number] 462 Unknown [id number] 462 Social History Date Type Detail Facility Tobacco smoking stat [facility] Unknown if ever smoked [facility] Work Phone: Start: 1950 Sex Assigned At Female W [facility] Start: 03-05-2020 End: 02-06-2025 Tobacco smoking status NHIS Ex-smoker [facility] History of tobacco use Current smoker [facility] Start: 03-05-2020 Tobacco use and exposure Smokeless tobacco non-user [facility] Start: 10-27-2021 Alcohol intake Current drinke r of alcohol (finding) [facility] Start: 03-05-2020 History SDOH Alcohol Comment rarely [facility] Start: 06-03-2020 History SDOH Financial 5 [facility] Start: 06-03-2020 History SDOH Food Worry 1 [facility] Start: 06-03-2020 History SDOH Transpo rt Med 2 [facility] Start: 03-05-2020 Tobacco Comment quit 20 years ago Cl [facility] Start: 1950 Sex Assigned At Not on file [facility] consumption unknown [facility] Start: 05-22-2022 End: 01-29-2025 Sex Female (finding) [facility] Start: 02-06-2025 End: 05-26-2025 Gender identity Not on file [facility] History of tobacco use Cigarette Smoker [facility] History of tobacco use Passive smoker [facility] Start: 02-06-2025 Tobacco use and exposure Former smokeless tobacco user [facility] Start: 02-06-2025 End: 03-25-2025 History of Social function [facility] Start: 03-25-2025 Alcoholic beverage intake Ex-drinker (finding) [facility] Clinical Notes 11-03-2021 to 03-25-2025 Stew Oswald MD - 03/25/2025 10:20 AM EDTTelephone Encounter - Stew Oswald MD - 02/10/2025 5:36 PM EDTTelephone Encounter - Stew Oswald MD - 02/10/2025 5:36 PM EDT Note Date & Type Note Facility 03-25-2025 History of Present illness Narrative Images from the original note were not included. [facility] [place] [address] [facility] [address] [facility] [address] Dept: [phone] Dept Loc: [phone] Stew Oswald MD CHIEF COMPLAINT: Chief Complaint [...] She reports that she is actively seeing [facility] ("I saw them a couple of weeks ago"). Past Medical History: has a past medical [...] Resource Strain: Low Risk (06/03/2020) Received from [facility] Overall Financial Resource Strain (CARDIA) Difficulty of Paying Living Expenses: Not hard at all Food Insecurity: No Food Insecurity (12/16/2024) Received from [facility] Hunger Vital Sign Worried About Running Out of Food in the Last Year: Never true Ran Out of Food in the Last Year: Never true Transportation Needs: No Transportation Needs (12/16/2024) Received from [facility] PRAPARE - Transportation Lack of Transportation (Medical): No Lack of Transportation (Non-Medical): No Physical Activity: Not on file Stress: Not on file Social Connections: Not on file Intimate Partner Violence: Not on file Housing Stability: Low Risk (12/16/2024) Received from [facility] Housing Stability Vital Sign Unable to Pay [...] intracranial process. Chronic changes and remote infarcts. Automatic Screwmaker: ALEXANDRO Transcribe Date/Time: Jan 11 2025 5:04P @RESULTINGLABINFO@ No results found for: "LEVETIRACETA", "FERRITIN", "CRP", "DANIEL", "ANCA" No results found for: "KIANNA", "IMMUNOGLOBUL", "OLIGOBANDS" No results found for: "JQA15GD", HEPCAB No results found for: "CRP", "ANATITER", "ANCA" ASSESSMENT AND PLAN: Diagnosis Plan 1. Focal [...] Artery Stenosis Father documented in this encounter [facility] 02-10-2025 Telephone encounter Note OK to send that place the order. [facility] 02-10-2025 Miscellaneous Notes OK to send that place the order. Called [employer]@ [phone]. HARVEY Lambica G- Auth is Valid if performed in facility. Called Ketty @ [facility] [phone] LM. Ketty-from [facility], said patient was ordered a Vascular US carotic arteries bilateral Ins won't pay if she goes by a cot and this is only way patient can be transferred However, the facility does have a company that comes to [facility] And can do the Vascular US at [facility] Would this be OK? -Ketty at [facility] documented in this encounter [facility] 02-10-2025 Telephone encounter Note Called [employer]@ [phone]. HARVEY Kadi G- Auth is Valid if performed in facility. Called Ketty @ [facility] [phone] LM. [facility] 02-10-2025 Telephone encounter Note Ketty-from [facility], said patient was ordered a Vascular US carotic arteries bilateral Ins won't pay if she goes by a cot and this is only way patient can be transferred However, the facility does have a company that comes to [facility] And can do the Vascular US at [facility] Would this be OK? -Ketty at [facility] 02-06-2025 History of Present illness Narrative Images from the original note were not included. [facility] [address] [facility] [address] Dept: [phone] Dept Loc: [phone] Stew Oswald MD CHIEF COMPLAINT: Chief Complaint [...] Resource Strain: Low Risk (06/03/2020) Received from [facility], [facility] Overall Financial Resource Strain (CARDIA) Difficulty of Paying Living Expenses: Not hard at all Food Insecurity: No Food Insecurity (12/16/2024) Received from [facility] Hunger Vital Sign Worried About Running Out of Food in the Last Year: Never true Ran Out of Food in the Last Year: Never true Transportation Needs: No Transportation Needs (12/16/2024) Received from [facility] PRAPARE - Transportation Lack of Transportation (Medical): No Lack of Transportation (Non-Medical): No Physical Activity: Not on file Stress: Not on file Social Connections: Not on file Intimate Partner Violence: Not on file Housing Stability: Low Risk (12/16/2024) Received from [facility] Housing Stability Vital Sign Unable to Pay [...] left Gait and Station: wheelchair bound DATA [facility] Outside Information Results MR brain wo contrast (Order [id number]) MR brain wo contrast Order: [id number] Impression IMPRESSION: No acute intracranial process. Chronic changes and remote infarcts. Automatic Screwmaker: ALEXANDRO Transcribe Date/Time: Jan 11 2025 5:04P Dictated by : DELBERT HYATT MD This examination was interpreted and the report reviewed and electronically signed by: DELBERT HYATT MD on Jan 11 2025 5:50PM EST Narrative DATE OF EXAM: Jan 11 2025 4:24PM AKArya 0294 - MRI BRAIN WO IVCON / [...] End: 01/11/25 16:24 Specimen Collected: 01/11/25 16:24 [facility] Outside Information Results CT head wo IV contrast (Order [id number]) CT head wo IV contrast Order: [id number] Impression IMPRESSION: Chronic changes without evidence for acute intracranial abnormality. Automatic Screwmaker: ALEXANDRO Transcribe Date/Time: Jan 09 2025 7:59P Dictated by : HAMILTON LERMA MD This examination was interpreted and the report reviewed and electronically signed by: HAMILTON LERMA MD on Jan 09 2025 8:01PM EST Narrative Final Report * * DATE OF EXAM: Jan 09 2025 7:58PM [facility] 0504 - CT BRAIN WO [...] 19:58 Last Resulted: 01/09/25 20:03 Received From: [facility] Result Received: 01/19/25 14:05 View Encounter Received Information CT head wo IV contrast Order: [id number] Impression IMPRESSION: Stable chronic changes with no acute intracranial process identified. Automatic Screwmaker: ALEXANDRO Transcribe Date/Time: Dec 14 2024 4:59P Dictated by : FANTA WOODWARD MD This examination was interpreted and the report reviewed and electronically signed by: FANTA WOODWARD MD on Dec 14 2024 5:00PM EST Narrative Final Report * * DATE OF EXAM: Dec 14 2024 4:34PM [facility] 0504 - CT BRAIN WO [...] End: 12/14/24 16:34 Specimen Collected: 12/14/24 16:34 [facility] Outside Information EPIL EEG BEDSIDE/PORTABLE - 20 MINUTE ONLY W/VIDEO Narrative Performed by NEUROLOGY [facility] EPIL EEG Bedside/Portable - 20 minute only w/video [[id number]] Patient name: ELBA DIAZ Start of test: 01/10/2025 17:08 End of test: 01/10/2025 17:32 Duration: 0 hr 24 min Requested By: NILTON RODRIGUEZ Staff Physician: Ankit Fairbanks EEG Fellow or Elmo: Aura Hilliard History: Elba Diaz is a [...] and electronically signed by Ankit Fairbanks MD, S-MedEd 3 yr ago Needle Punch Machine Operator Helper [facility] EPIL EEG Bedside/Portable - 20 minute only w/video [[id number]] Patient name: ELBA DIAZ Date of test: 11/03/2021 Duration: 0 hr 24 min Requested By: PINO PANIAGUA Staff Physician: Adriano Davies EEG Fellow or Elmo: Vianney Ramirez History: 71 year old female [...] Adriano Davies M.D. Component 3 yr ago Needle Punch Machine Operator Helper [facility] EPIL EEG BEM - Continuous bedside w/video includes portable EEG read [[id number]] Patient name: ELBA DIAZ Date of test: 02/14/2021 Requested By: RAMOS BUSTAMANTE Staff Physician: Ankit Rico D.O. EEG Fellow or Elmo: Dee Wasserman History: This is a 70 [...] by Marco A Viera 3 yr ago Needle Punch Machine Operator Helper [facility] EPIL EEG BEM - Continuous bedside w/video includes portable EEG read [[id number]] Patient name: ELBA DIAZ Date of test: 02/13/2021 Requested By: RAMOS BUSTAMANTE Staff Physician: Ankit Rico D.O. EEG Fellow or Elmo: Dee Wasserman History: This is a 70 [...] D.O. Date of signin02/14/2021 3 yr ago Needle Punch Machine Operator Helper [facility] EPIL EEG BEM - Continuous bedside w/video includes portable EEG read [[id number]] Patient name: ELBA DIAZ Date of test: 02/12/2021 Requested By: RAMOS BUSTAMANTE Staff Physician: Ankit Rico D.O. EEG Fellow or Elmo: Crystal Quiroga History: This is a 70 [...] D.O. Date of signin02/13/2021 3 yr ago Needle Punch Machine Operator Helper [facility] EEG Bedside/Portable - 20 minute only w/video [[id number]] Patient name: ELBA DIAZ Date of test: 02/12/2021 Duration: 0 hr 24 min Requested By: GUTIERREZ SHANNON Staff Physician: Ankit Rico EEG Fellow or Elmo: Tony Paniagua History: This is a 70 [...] D.O. Date of signin02/13/2021 3 yr ago Needle Punch Machine Operator Helper [facility] EPIL EEG BEM - Continuous bedside w/video includes portable EEG read [[id number]] Patient name: ELBA DIAZ Date of test: 02/10/2021 Requested By: OG FORREST Staff Physician: Ankit Rico D.O. EEG Fellow or Elmo: Dee Wasserman History: Patient is a 70 [...] D.O. Date of signin02/11/2021 3 yr ago Needle Punch Machine Operator Helper [facility] EPIL EEG BEM - Continuous bedside w/video includes portable EEG read [[id number]] Patient name: ELBA DIAZ Date of test: 02/09/2021 Requested By: OG FORREST Staff Physician: Ankit Rico D.O. EEG Fellow or Elmo: Dee Wasserman History: Patient is a 70 [...] Date of signin02/10/2021 Component 3 yr ago Needle Punch Machine Operator Helper [facility] EPIL EEG Bedside/Portable - 20 minute only w/video [[id number]] Patient name: ELBA DIAZ Date of test: 02/08/2021 Duration: 0 hr 23 min Requested By: AISSATOU CARVER Staff Physician: Lincoln Sanz EEG Fellow or Elmo: Jaycee Lieberman History: Patient is a 70 [...] Ph.D. Date of signin02/08/2021 3 yr ago Needle Punch Machine Operator Helper [facility] EPIL EEG BEM - Continuous bedside w/video includes portable EEG read [[id number]] Patient name: ELBA DIAZ Date of test: 02/08/2021 Requested By: OG FORREST Staff Physician: Ankit Rico D.O. EEG Fellow or Elmo: Dee Wasserman History: Patient is a 70 [...] D.O. Date of signin02/09/2021 Resulting Agency NEUROLOGY [facility] Outside Information CT BRAIN WO IVCON Anatomical Region Laterality Modality Head -- Computed Tomography Impression IMPRESSION: 1. No CT evidence of acute intracranial abnormalities. 2. Large area of encephalomalacia within right middle cerebral artery distribution infarct compatible with previous chronic infarct. 3. Chronic small vessel ischemic white matter disease and diffuse cerebral volume loss. Automatic Screwmaker: ALEXANDRO Transcribe Date/Time: Feb 07 2021 11:33A Dictated by : VANNA FULTON MD [facility] Outside Information CT BRAIN WO IVCON Anatomical [...] or proximal occlusion is seen of the [place] of [place]. See above for details. 2. [...] Etiology is uncertain. Follow-up could be considered. Automatic Screwmaker: ALEXANDRO Transcribe Date/Time: Feb 01 2021 9:53A 4 yr ago Needle Punch Machine Operator Helper Echocardiography Report: Transthoracic Echo [facility] Date of service: 02/24/2020 1:07:58 PM Ordering physician: JOSE Parekh Indication: Stroke Technologist: Debra Light [facility] Interpreting physician: Shun Sheldon DO PATIENT: [...] as late effect of cerebrovascular accident (CVA) ([facility]) I am missing the neurology consult from [...] arranging for studies. documented in this encounter [facility] 01-13-2025 Note HNO ID: [id number] Author: NILTON RODRIGUEZ DO Service: Hospital Medicine Author Type: Physician Type: Progress Notes Filed: 01/13/2025 18:34 Note Text: Documentation Query Please clarify Diagnosis associated with clinical indicators Other unspecified anemia This document will become part of the patient's medical record. [facility] 01-13-2025 Note HNO ID: [id number] Author: NILTON RODRIGUEZ DO Service: Hospital Medicine Author Type: Physician Type: Progress Notes Filed: 01/13/2025 18:33 Note Text: Documentation Query Patient admitted with Change in Mental Status AND Right sided weakness symptoms) Please clarify the diagnosis associated with clinical indicators Other unable to clinically determine This document will become part of the patient's medical record. [facility] 01-13-2025 Note HNO ID: [id number] Author: CELESTE ARTIS LSW Service: Care Management Author Type: Etcher Aircraft Type: Care Mgt Progress Note Filed: 01/13/2025 17:06 Note Text: CARE MANAGEMENT DISCHARGE NOTE SERVICE DATE: January 13, 2025 SERVICE TIME: 5:05 PM Admission Date: 01/09/2025 LOS: 4 days Discharge Arrangement Discharge Arrangement: Group Home Facility Services Arranged Medical Services: Other: See Comment (ECF) [facility] Caregiver Assessment Caregiver is ready, willing and able to meet the patient's needs as recommended by the inter-professional team: Yes Name of Caregiver: EVA Montoya Transportation Arrangements Transportation Arrangements: Ambulance Transportation Agency and Phone #:: [facility] ( [facility] ) [phone] / [phone] Date of Trip: 01/13/25 Time of Trip: 1929 Type of Service: BLS Non-emergency Etcher Aircraft Location: [facility] Destination: [facility] Handoff Communication: Handoff to: Other Caregiver Other Caregiver Name/Phone: ECF. RN to call report Additional Information: [facility] scheduled through [facility]. Son and patient notified and agreeable to arrangements. Summary of Care, DC Summary, and AVS sent to facility. Transport packet on chart. RN notified. SIGNATURE: WILSON Hernandez PATIENT NAME: Elba Diaz DATE: January 13, 2025 TIME: 5:05 PM [facility] 01-13-2025 Note HNO ID: [id number] Author: CELESTE ARTIS LSW Service: Care Management Author Type: Etcher Aircraft Type: Care Mgt Progress Note Filed: 01/13/2025 17:02 Note Text: CARE MANAGEMENT PROGRESS NOTE SERVICE DATE: 01/13/2025 SERVICE TIME: 5:00pm LOS: 4 days IMM Follow Up Copy Given: Yes Copy given to:: Patient Method: In Person SIGNATURE: WILSON Hernandez PATIENT NAME: Elba Diaz DATE: January 13, 2025 TIME: 5:02 PM [facility] 01-12-2025 Note HNO ID: [id number] Author: NILTON RODRIGUEZ DO Service: Hospital Medicine Author Type: Physician Type: Progress Notes Filed: 01/12/2025 17:15 Note Text: DEPARTMENT OF HOSPITAL MEDICINE PROGRESS NOTE SERVICE DATE: 01/12/2025 SERVICE TIME: 5:14 PM Hospital Medicine/Primary Attending: Nilton Rodriguez DO NIGHT AND WEEKEND COVERAGE: [place] COVERAGE: After 7pm, please call cross cover pager #[phone] Subjective Patient seen and examined, denies complaints [...] (Src) 98.3 (Oral) Resp 18 Ht 5' 2" (1.58m) Wt 170 lb 3.1 oz (77.2kg) [...] and Airways Line Duration Peripheral 01/09/25 1245 [facility] Short Right Hand 20 Gauge 3 days Peripheral 01/09/25 1910 [facility] Right Antecubital 20 Gauge 2 days [...] January 12, 2025 TIME: 5:14 PM etx [id number] [facility] 01-12-2025 Note HNO ID: [id number] Author: JOSE MCRAE RN Service: Care Management Author Type: Registered Nurse Type: Care Mgt Progress Note Filed: 01/12/2025 13:38 Note Text: CARE MANAGEMENT PROGRESS NOTE SERVICE DATE: 01/12/2025 SERVICE TIME: 1337 LOS: 3 days Needs Prior to Discharge: To Be Determined, Discharge Transportation Chart reviewed. Updates sent to [facility]. Patient is LTC at facility, plan to return. Transport folder placed on chart. CM will continue to follow. SIGNATURE: Jose Mcrae RN PATIENT NAME: Elba Wolfshalini DATE: January 12, 2025 TIME: 1:37 PM [facility] 01-11-2025 Note HNO ID: [id number] Author: NILTON RODRIGUEZ DO Service: Hospital Medicine Author Type: Physician Type: Progress Notes Filed: 01/11/2025 15:44 Note Text: DEPARTMENT OF HOSPITAL MEDICINE PROGRESS NOTE SERVICE DATE: 01/11/2025 SERVICE TIME: 3:31 PM Hospital Medicine/Primary Attending: Nilton Rodriguez DO NIGHT AND WEEKEND COVERAGE: [place] COVERAGE: After 7pm, please call cross cover pager #[phone] Subjective Patient examined with son at bedside [...] (Src) 97.9 (Oral) Resp 16 Ht 5' 2" (1.58m) Wt 170 lb 3.1 oz (77.2kg) [...] and Airways Line Duration Peripheral 01/09/25 1245 [facility] Short Right Hand 20 Gauge 2 days Peripheral 01/09/25 1910 [facility] Right Antecubital 20 Gauge 1 day [...] 75 mg ORAL DAILY Given, 01/11 0914 01/10/258 -- VTE Prophylaxis: VTE prophylaxis appropriate Disposition: To be determined Plan of care discussed with: Provider, RN, Patient SIGNATURE: Nilton Rodriguez DO PATIENT NAME: Elba Diaz DATE: January 11, 2025 TIME: 3:31 PM etx [id number] [facility] 01-11-2025 Note HNO ID: [id number] Author: SAUNDRA BARON RN Service: Care Management Author Type: Registered Nurse Type: Care Mgt Initial Assessment Filed: 01/11/2025 15:29 Note Text: CARE MANAGEMENT: ASSESSMENT AND DISCHARGE PLAN SERVICE DATE: January 11, 2025 SERVICE TIME: 3:27 PM PCP: No primary care provider on file. Primary Contact: Extended Emergency Contact Information Primary Emergency Contact: Mauricio Diza Mobile Relation: Son Secondary Emergency Contact: Tammie Cohen Mobile Relation: Daughter Admission Status: Inpatient Insurance Provider: [facility] SNP Discharge Planning requested by: Per Department Practice Potential Transition Plans Group Home Facility/Intermediate Care Facility Advance Directives Current Advance Directive: Health Care Power of Ice Cream Freezer Helper In Chart: No Insurance Marketing Specialist Attempted to Assist with AD Completion: Yes [...] Wheelchair-manual Discharge Planning Patient Goal(s): General wellness [place] Explained: [place] of [place] Given: No Reason Not Given: [...] Transportation: pt will need cot transportation at [place] , ambulance form completed Equipment Prior to Admission: wheelchair Support: pt from [facility] Patient confused, spoke with pt's son Mauricio , pt typically A+Ox3 at baseline, states that pt came from [facility], pt here for AMS, would like for pt to return to [facility] [place], CM will continue to follow SIGNATURE: Saundra Baron RN PATIENT NAME: Elba Diaz DATE: January 11, 2025 TIME: 3:27 PM [facility] 01-10-2025 Note HNO ID: [id number] Author: NILTON RODRIGUEZ DO Service: Hospital Medicine Author Type: Physician Type: Progress Notes Filed: 01/10/2025 17:50 Note Text: DEPARTMENT OF HOSPITAL MEDICINE PROGRESS NOTE SERVICE DATE: 01/10/2025 SERVICE TIME: 5:37 PM Hospital Medicine/Primary Attending: Nilton Rodriguez DO NIGHT AND WEEKEND COVERAGE: [place] COVERAGE: After 7pm, please call cross cover pager #[phone] Subjective Patient examined with son and daughter [...] (Src) 97.8 (Oral) Resp 18 Ht 5' 2" (1.58m) Wt 170 lb 3.1 oz (77.2kg) [...] and Airways Line Duration Peripheral 01/09/25 1245 [facility] Short Right Hand 20 Gauge 1 day Peripheral 01/09/25 1910 [facility] Right Antecubital 20 Gauge <1 day [...] (PLAVIX) 75 mg ORAL DAILY Given, 01/10 0951 01/10/25 0228 -- VTE Prophylaxis: VTE prophylaxis appropriate Disposition: To be determined Plan of care discussed with: Provider, RN, Patient SIGNATURE: Nilton Rodriguez DO PATIENT NAME: Elba Diaz DATE: January 10, 2025 TIME: 5:37 PM etx [id number] [facility] 01-09-2025 Note SARS-COV-2 (AGENT OF COVID-19) RNA: Not detected INFLUENZA A RNA: Not detected INFLUENZA B RNA: Not detected RESPIRATORY SYNCYTIAL VIRUS (RSV) RNA: Not detected [facility] Comment on above: Performed By: #### 9 [id number] ####[facility]ORY[facility]IA [id number] [place] [address] [place] 01-01-2025 Telephone encounter Note Pt is added on the wait list [facility] 01-01-2025 Miscellaneous Notes Pt is added on the wait list Name of caller: Sari Contact phone number: [phone] Relationship to Patient: [facility] Provider: New Patient/Dr. Oswald Practice: Neurology Chief [...] their call: N/A documented in this encounter [facility] 01-01-2025 Telephone encounter Note Name of caller: Sari Contact phone number: [phone] Relationship to Patient: [facility] Provider: New Patient/Dr. Oswald Practice: Neurology Chief [...] business hours to return their call: N/A [facility] 12-18-2024 Note HNO ID: [id number] Author: MARTIN MCCALL LSW Service: Care Management Author Type: Etcher Aircraft Type: Care Mgt Progress Note Filed: 12/18/2024 11:19 Note Text: CARE MANAGEMENT DISCHARGE NOTE SERVICE DATE: December 18, 2024 SERVICE TIME: 11:15 AM Admission Date: 12/14/2024 LOS: 3 days Discharge Arrangement Discharge Arrangement: Group Home Facility Services Arranged Return to SNF Provider Name: Dr. Helms Phone: [phone] Caregiver Assessment Transportation Arrangements Transportation Arrangements: Ambulance Transportation Agency and Phone #:: [facility] ( [facility] ) [phone] / [phone] Date of Trip: 12/18/24 Time of Trip: 1430 Type of Service: ALS Non-emergency Was transportation financial coverage discussed with family?: Patient Etcher Aircraft Location: [facility] Destination: [facility] Handoff Communication: Handoff to: Cake Tester Additional Information: [facility] [phone] Pt is transporting back to [facility] today at 2:30pm via [facility]. Packet on chart. SW called SNF, they are asking for updated clinicals. Sent via careport. RN to call [phone] for N2N REPORT, pt is in [address]. Son was made aware over the phone. No other dc needs at this time. SIGNATURE: WILSON Soliman PATIENT NAME: Elba Diaz DATE: December 18, 2024 TIME: 11:15 AM Ext [phone] [facility] 12-18-2024 Note HNO ID: [id number] Author: MARK DAMON RPh Service: Pharmacy Author [...] discharge medication list. Mark Damon RPh Pager: [phone] 12/18/2024 11:14 AM Medication List CONTINUE taking [...] 0.05 mg/24 hr patch Generic drug: estradiol [facility] 12-18-2024 Note HNO ID: [id number] Author: DANILO HELMS MD Service: Hospital Medicine Author Type: Physician Type: Progress Notes Filed: 12/18/2024 10:29 Note Text: Documentation Query Please specify a diagnosis associated with the Clinical Indicators for this patient Obesity This document will become part of the patient's medical record. [facility] 12-17-2024 Note HNO ID: [id number] Author: DANILO HELMS MD Service: Hospital Medicine Author Type: Physician Type: Progress Notes Filed: 12/17/2024 18:51 Note Text: Documentation Query Please clarify the Diagnosis associated with clinical indicators Delirium Only This document will become part of the patient's medical record. [facility] 12-17-2024 Note HNO ID: [id number] Author: DANILO HELMS MD Service: Hospital Medicine Author Type: Physician Type: Progress Notes Filed: 12/17/2024 18:53 Note Text: DEPARTMENT OF HOSPITAL MEDICINE PROGRESS NOTE SERVICE DATE: 12/17/2024 SERVICE TIME: 3:32 PM Hospital Medicine/Primary Attending: Danilo Helms MD NIGHT AND WEEKEND COVERAGE: After 7pm please page [phone] CHIEF COMPLAINT: Follow-up for change in mental status SUBJECTIVE: Patient seen and examined. Discussed with nursing staff. OBJECTIVE: PHYSICAL EXAM: BP 136/78 Pulse 88 Temp (Src) 98.2 (Oral) Resp 18 Ht 5' 2" (1.58m) Wt 176 lb 8 oz (80.1kg) [...] TID PRN sodium chloride 0.65 % 2 [place] 2 [place] EACH NOSTRIL PRN prochlorperazine 10 mg injection (COMPAZINE) 10 mg INTRAVENOUS q 6 H PRN miconazole 2 % 1 application topical powder 1 application TOPICAL BID zinc oxide ointment 20% TOPICAL BID DATA: Diagnostic tests reviewed for today's visit: CBC: No results for input(s): "WBC", "RBC", "HB", "HCT", "PLT", "MCV", "MCH", "MPV", "RDW" in the last 24 hours. Coags: No results for input(s): "PT", "INR", "APTT" in the last 24 hours. BMP: No results for input(s): "NA", "K", "CHLOR", "CO2", "BUN", "CREAT", "GLUC" in the last 24 hours. CMP: No results for input(s): "NA", "K", "CHLOR", "CO2", "BUN", "CREAT", "GLUC", "TPROT", "CA", "MG", "ALBUMIN", "TBILI", "ALKPHOS", "ALT", "AST", "ANION" in the last 24 hours. Cardiac Enzymes: No results for input(s): "CK", "MB", "CKMB", "TROPT" in the last 24 hours. Liver Function, Amylase, Lipase: No results for input(s): "TPROT", "ALB", "ALT", "AST", "ALKPHOS", "TBILI", "AMYLASE", "LIPASE", "LACTATE" in the last 24 hours. MG/PHOS: No results for input(s): "MG", "P" in the last 24 hours. Renal Panel: No results for input(s): "ALBUMIN", "CREAT", "BUN", "GLUC", "CA", "P", "CHLOR", "K", "CO2", "NA" in the last 24 hours. Heme: No results for input(s): "RETICP", "ABSRETIC", "LD", "EMMETT", "FE", "TIBC","TRANSFERSAT" in the last 24 hours. No results found for: "UALBCR" Assessment/Plan 1. Acute delirium. Most likely secondary [...] and Occupational Therapy recommending return back to assisted facility/ECF. 5. Hypokalemia. Repleting with oral potassium 40 mg 3 times a day x 3 doses. 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 The below information represents the best possible medication history: Yes Medication history completed by: Pharmacist: Mark Damon RPh Source of history: skilled nursing/Other MAR - [facility] Medication nonadherence identified: Unable to assess Reconciliation completed: Yes Completed by: DAMIAN All HEAVY DUTY TRUCK MECHANIC medications addressed by DAMIAN Patient interested in Bedside Delivery Services or using OP Pharmacy at discharge? Unable to assess Preferred outpatient pharmacy: [facility] [place] [address] - [address] [place] [address] Allergies: Codeine Other: See Comments Comment:nausea Prior [...] stay upright for 30 min. *Mondays between 0067-1355* aspirin, enteric coated (ASPIR-81) 81 mg EC [...] as directed one time a week. Q Donnie ferrous sulfate 325 mg (65 mg iron) [...] Facility-Administered Medications: None Mark Damon RPh 12/17/2024 [facility] 12-16-2024 Note HNO ID: [id number] Author: DANILO HELMS MD Service: Hospital Medicine Author Type: Physician Type: Progress Notes Filed: 12/16/2024 15:36 Note Text: DEPARTMENT OF HOSPITAL MEDICINE PROGRESS NOTE SERVICE DATE: 12/16/2024 SERVICE TIME: 3:32 PM Hospital Medicine/Primary Attending: Danilo Helms MD NIGHT AND WEEKEND COVERAGE: After 7pm please page [phone] CHIEF COMPLAINT: Follow-up for change in mental status SUBJECTIVE: Patient seen and examined. Discussed with nursing staff. OBJECTIVE: PHYSICAL EXAM: BP 136/80 Pulse 92 Temp (Src) 98 (Oral) Resp 18 Ht 5' 2" (1.58m) Wt 176 lb 8 oz (80.1kg) [...] TID PRN sodium chloride 0.65 % 2 [place] 2 [place] EACH NOSTRIL PRN prochlorperazine 10 mg injection (COMPAZINE) 10 mg INTRAVENOUS q 6 H PRN DATA: Diagnostic tests reviewed for today's visit: CBC: Recent Labs 12/16/24209 WBC 6.31 RBC 3.55* HB 12.0 HCT 35.7* PLT 116* MCV 100.6* MCH 33.8 MPV 8.8* Coags: No results for input(s): "PT", "INR", "APTT" in the last 24 hours. BMP: Recent Labs 12/16/24209 NA 138 K 3.5* CHLOR 105 CO2 22 BUN 5* CREAT 0.36* GLUC 103* CMP: Recent Labs 12/16/24209 NA 138 K 3.5* CHLOR 105 CO2 22 BUN 5* CREAT 0.36* GLUC 103* TPROT 5.9* CA 8.5 TBILI 0.2 ALKPHOS 78 ALT 18 AST 31 ANION 11 Cardiac Enzymes: No results for input(s): "CK", "MB", "CKMB", "TROPT" in the last 24 hours. Liver Function, Amylase, Lipase: Recent Labs 12/16/24209 TPROT 5.9* ALB 3.1* ALT 18 AST 31 ALKPHOS 78 TBILI 0.2 MG/PHOS: No results for input(s): "MG", "P" in the last 24 hours. Renal Panel: Recent Labs 12/16/24209 CREAT 0.36* BUN 5* GLUC 103* CA 8.5 CHLOR 105 K 3.5* CO2 22 NA 138 Heme: No results for input(s): "RETICP", "ABSRETIC", "LD", "EMMETT", "FE", "TIBC","TRANSFERSAT" in the last 24 hours. No results found for: "UALBCR" Assessment/Plan 1. Acute delirium. Most likely secondary [...] and Occupational Therapy recommending return back to assisted facility/ECF. 5. Hypokalemia. Will replete with oral potassium 40 mg 3 times a day x 3 doses. VTE Prophylaxis: As per primary team Disposition: Extended Care Facility Plan of care discussed with: Provider, RN, Patient SIGNATURE: Danilo Helms MD PATIENT NAME: Elba Diaz DATE: December 16, 2024 TIME: 3:32 PM PAGER/CONTACT #: Mili Rios [facility] 12-16-2024 Note HNO ID: [id number] Author: LOIS MENA RN Service: Care Management [...] Relation: Daughter Admission Status: Inpatient Insurance Provider: [employer] [facility] Discharge Planning requested by: Per Department Practice Potential Transition Plans Group Home Facility/Intermediate Care Facility Advance Directives Current Advance Directive: Health Care Power of Ice Cream Freezer Helper In Chart: No Insurance Marketing Specialist Attempted to Assist with AD Completion: No Unable to Assist Due To:: Delirium Current Living Arrangements and Support Lives with: Alone Type of Residence: Extended Care Facility Does the patient have to climb stairs at home?: No Care Facility Name: [facility] Support: Children How do you manage to accomplish the following: Dependent: Ambulation, Bathe/Shower, Dress, Meals/Meal Prep, Going to the bathroom, Medication Management, Transportation to appointments/community Current Services/Equipment Current Post-Acute Service(s): DME Current DME Type: [employer] Discharge Planning Patient Goal(s): General wellness [place] of Choice Explained: [place] of Choice Given: Yes Are you interested in bedside delivery of your medications? No Discharge Planning Participant(s): Children Patient/Family Comments: Caregiver Assessment: Caregiver is ready, willing and able to meet the patient's needs as recommended by the inter-professional team: Yes Name of Caregiver: [facility] Transport at Discharge: Transportation Arrangements: Ambulance Etcher Aircraft Location: [facility] Needs Prior to Discharge: Needs Prior to Discharge: To Be Determined Post-Acute Discharge Plan: Spoke to jose Martínez. Patient is LTC resident at [facility], with plans to return. [facility] tasked to send return referral via [employer]. Patient is non ambulatory and uses a [facility] for transfers. Therapy recs ECF. Anticipate return to ECF once medically ready. Will need cot transport at [place]. to continue to follow. SIGNATURE: Lois Mena RN PATIENT NAME: Elba Diaz DATE: December 16, 2024 TIME: 11:16 AM [facility] 12-15-2024 Note HNO ID: [id number] Author: DANILO HELMS MD Service: Hospital Medicine Author Type: Physician Type: Progress Notes Filed: 12/15/2024 17:34 Note Text: DEPARTMENT OF HOSPITAL MEDICINE PROGRESS NOTE SERVICE DATE: 12/15/2024 SERVICE TIME: 5:31 PM Hospital Medicine/Primary Attending: Danilo Helms MD NIGHT AND WEEKEND COVERAGE: After 7pm please page [phone] CHIEF COMPLAINT: Follow-up for urinary tract infection and change in mental status SUBJECTIVE: Patient seen and examined. Discussed with patient's son Mauricio over the telephone. Updated regarding plan of [...] MPV 8.9* Coags: No results for input(s): "PT", "INR", "APTT" in the last 24 hours. BMP: Recent Labs 12/15/24 0542 NA 140 K 3.6* CHLOR 107 CO2 20* BUN 11 CREAT 0.37* GLUC 73* CMP: Recent Labs 12/15/24 0542 NA 140 K 3.6* CHLOR 107 CO2 20* BUN 11 CREAT 0.37* GLUC 73* CA 8.3* ANION 13 Cardiac Enzymes: No results for input(s): "CK", "MB", "CKMB", "TROPT" in the last 24 hours. Liver Function, Amylase, Lipase: No results for input(s): "TPROT", "ALB", "ALT", "AST", "ALKPHOS", "TBILI", "AMYLASE", "LIPASE", "LACTATE" in the last 24 hours. MG/PHOS: No results for input(s): "MG", "P" in the last 24 hours. Renal Panel: Recent Labs 12/15/24 0542 CREAT 0.37* BUN 11 GLUC 73* CA 8.3* CHLOR 107 K 3.6* CO2 20* NA 140 Heme: No results for input(s): "RETICP", "ABSRETIC", "LD", "EMMETT", "FE", "TIBC","TRANSFERSAT" in the last 24 hours. No results found for: "UALBCR" Assessment/Plan 1. Acute delirium. Most likely secondary [...] evaluate in anticipation of return back to assisted facility/ECF. VTE Prophylaxis: As per primary team Disposition: Extended Care Facility Plan of care discussed with: Provider, RN, Patient SIGNATURE: Danilo Helms MD PATIENT NAME: Elba Diaz DATE: December 15, 2024 TIME: 5:31 PM PAGER/CONTACT #: mili miller [facility] 12-14-2024 Note SARS-COV-2 (AGENT OF COVID-19) RNA: Not detected INFLUENZA A RNA: Not detected INFLUENZA B RNA: Not detected RESPIRATORY SYNCYTIAL VIRUS (RSV) RNA: Not detected [facility] Comment on above: Performed By: #### 9 [id number] ####[facility] [id number] [address] OF [facility] 09-06-2022 Note Patient Outreach (IN TMMN) ELBA DIAZ ([id number]) 1950 F CHT Date Time Provider Department 09/06/22 MARCUS TIERNEY During your visit today, we recorded the following information about you: Allergies As of Date: 09/06/2022 Noted Allergy Reaction CODEINE 03/26/2017 14 - Other: See Comments Comments: nausea Date Reviewed: 11/06/2021 Reviewed by: Carrie Amaya RN - Fully Assessed Visit Diagnosis:Encounter for screening mammogram for breast cancer [Z12.31] Order(s):[facility] SCREEN[facility] [[id number]] Order #: [id number] FUTURE Prescriptions as of 09/11/2022 - divalproex [...] 1 TABLET BY MOUTH EVERY DAY - [facility] Blue-Sod Tqqb-GvEnj-Ptz (URIBEL) 118-10-40.8-36 mg Take 1 capsule by [...] status) [R41.82] 11/03/2021 11/07/2021 Encounter Status:Closed by ANABEL STUART on 09/11/22 [facility] 06-21-2022 Miscellaneous Notes Called and left patient a VM to see about moving her appt w Dr. Dennis on the to the . Marie Vences June 21, 2022 10:40 AM documented in this encounter [facility] 06-19-2022 Miscellaneous Notes Called and left patient a VM about switching appointment from Jul 18 to the . Marie Vences June 19, 2022 10:36 AM documented in this encounter [facility] 03-22-2022 Note HNO ID: [id number] Author: Population Health Navigator Liz Varela Service: ? Author Type: ? Type: Progress Notes Filed: 03/22/2022 12:30 PM Note Text: POPULATION HEALTH NAVIGATION OUTREACH Action/FYI Dear Dr. Tierney, Our Population Health Navigation team is completing an outreach regarding open HCC gaps. This patient currently has the following open HCC gap(s) listed: I72.9 - Aneurysm (HCC) - [id number] Last Billed 04/20/2020 An attempt has been [...] address : I72.9 - Aneurysm (HCC) - [id number] Last Billed 04/20/2020 Annual Wellness/PCP visit/ BP CONTROLLED - last visit 10/27/2020 Pt identified by name and : NO Outreach Outcome/Action Unable to reach patient: Phone number not valid / voicemail full Sense Platformt message sent Did you use a PCP flex slot to schedule this appointment? N/A Reason for Outreach HCC or suspected condition Payer: Payor: [facility] MEDICARE / Plan: UHC AARP MEDICARE HMO [...] Yes Navigation Signature: Population Health Navigator Liz Vaerla March 22, 2022 12:15 PM [facility] 03-22-2022 Note Patient Outreach (NE TNAV) ELBA DIAZ ([id number]) 1950 F T Date Time Provider Department [...] gap(s) listed: I72.9 - Aneurysm (HCC) - [id number] Last Billed 04/20/2020 An attempt has been [...] attempt- MYCHART message sent. Patient is on [facility] list for below gaps and needs appt to address : I72.9 - Aneurysm (HCC) - [id number] Last Billed 04/20/2020 Annual Wellness/PCP visit/ BP CONTROLLED - last visit 10/27/2020 Pt identified by name and : NO Outreach Outcome/Action Unable to reach patient: Phone number not valid / voicemail full MyChart message sent Did you use a PCP flex slot to schedule this appointment? N/A Reason for Outreach HCC or suspected condition Payer: Payor: [facility] MEDICARE / Plan: [facility] MEDICARE HMO / Product Type: HMO / [...] Visit: Population Health Navigation Outreach [3910] Cmt: hcc Prescriptions as of 03/22/2022 - divalproex DR [...] BY MOUTH EVERY DAY - [facility] Blue-Sod Gbds-QvNcv-Gpk (URIBEL) 118-10-40.8-36 mg Take 1 capsule by mouth once daily. - levothyroxine (SYNTHROID) 125 mcg tablet TAKE 1 TABLET BY MOUTH EVERY MORNING BEFORE BREAKFAST - aspirin, enteric coated (ASPIR-81) 81 mg EC tablet Take 81 mg by mouth once daily. - calcium carbonate-vitamin D3 (CALCIUM 500+D) 500 mg(1,250mg) -400 unit chew (more content not included)... [facility] 11-03-2021 History of Past i llness Narrative Problem Noted Date Resolved Date AMS (altered mental status) 11/03/202110/22 Altered mental status 10/21/2021 11/07/2021 Acute renal insufficiency 05/16/20202020 DAVEY (acute kidney injury) 05/14/20202020 documented as of this encounter (statuses as of 06/19/2022) [facility] History of Past illness Narrative* Problem Noted Date Resolved Date AMS (altered mental status) 11/03/202110/22 Altered mental status 10/21/2021 11/07/2021 Acute renal insufficiency 05/16/20202020 DAVEY (acute kidney injury) 05/14/20202020 documented as of this encounter (statuses as of 06/21/2022) [facility] History of Past illness Narrative* Problem Noted Date Resolved Date AMS (altered mental status) 11/03/202110/22 Altered mental status 10/21/2021 11/07/2021 Acute renal insufficiency 05/16/20202020 DAVEY (acute kidney injury) 05/14/20202020 documented as of this encounter (statuses as of 09/11/2022) [facility] noteNo assessment information availableWTriHealth Work Phone: Evaluation note* Diagnosis Encounter for screening mammogram for breast cancer documented in this encounter [facility] note* Diagnosis Focal epilepsy with impairment of consciousness, intractable (HCC)- Primary Localization-related (focal) (partial) epilepsy and epileptic syndromes with simple partial seizures, with intractable epilepsy Carotid stenosis, symptomatic, with infarction (HCC) Hemiparesis affecting left side as late effect of cerebrovascular accident (CVA) (HCC) documented in [facility]* Diagnosis Focal epilepsy with impairment of consciousness, intractable (HCC)- Primary Localization-related (focal) (partial) epilepsy and epileptic syndromes with simple partial seizures, with intractable epilepsy Carotid stenosis, symptomatic, with infarction (HCC) Hemiparesis affecting left side as late effect of cerebrovascular accident (CVA) (HCC) documented in this encounter [facility] for referral (narrative)* Diagnostic Procedure Only (Routine) - Pending Review Specialty Diagnoses / Procedures Referred By Emily t Referred To Contact [facility] Diagnoses Encounter for screening mammogram for breast cancer Procedures JANET SCREENING SCREENING MAMMOGRAPHY BI 2-VIEW BREAST INC CAD Marcus Tierney MD [address] [place] [address] [facility] [address] [place] [address] Referral ID Status Reason Start Date Expiration Date Visits Requested Visits Authorized [id number] Pending Review Auto-Generat ed Referral 2 10/06/2023 1 1 [facility] for referral (narrative)No reason for referral information availableWTriHealth Work Phone: Summary Purpose Family History No Family History Records FoundNo Family History Records FoundNo Family History Records FoundNo Family History Records FoundNo Family History Records FoundNo Family History Records FoundNo Family History Records FoundNo Family History Records Found No Information Available No Family History Records Found Advance Directives No Advanced Directives Records FoundLatest Code Status on File Code Status Date [...] 2:43 PM Hospital Course Note HNO ID: [id number] Author: Rk Shannon Service: Hospital Medicine Author [...] Complaint and Reason for Visit Chief Complaint [facility] LABWORK [facility] LABWORK [facility] LABWORK [facility] BLOOD WORK [facility] LABWORK [facility] LAB WORK Chief Complaint [facility] LABWORK [facility] LABWORK [facility] BLOOD WORK [facility] LABWORK [facility] LAB WORK Chief Complaint [facility] BLOOD W ORK [facility] LABWORK [facility] LAB WORK [facility] LABWORK Chief Complaint CHCF LABWORK Chief Complaint [facility] LABWORK [facility] LAB WORK Chief Complaint [facility] LAB WOR K [facility] LAB WORK Chief Complaint [facility] LAB WOR K [facility] LAB WORK [facility] LAB WORK Chief Complaint [facility] LABWORK LABWORK Chief Complaint [facility] LABWORK LABWORK LABWORK Chief Complaint LABWORK LABWORK [facility] LABWORK Chief Complaint LABWORK LABWORK [facility] LABWORK LABWORK Chief Complaint Admit Date LABWORK October 27, 2024 5: 00am [facility] LAB WORK November 27, 2024 5:00am LAB WORK December 22, 2024 2:30 pm LAB WORK December 24, 2024 5:00 am LAB WORK December 30, 2024 2:0 0am LABWORK December 31, 2024 5:0 0am LABWORK January 14, 2025 5:0 0am Chief Complaint Admit Date [facility] LAB WORK November 27, 2024 5:00am LAB WORK December 22, 2024 2:30 pm LAB WORK December 24, 2024 5:00 am LAB WORK December 30, 2024 2:0 0am LABWORK December 31, 2024 5:0 0am LABWORK January 14, 2025 5:0 0am LABWORK March 06, 2025 5:00a m Chief Complaint Admit Date LABWORK March 06, 2025 5:00a m [facility] LAB WORK April 01, 2025 4: 00pm Additional Source Comments INFORMATION SOURCE (unrecogn ized section and content) DATE CREATED AUTHOR [facility] DATE CREATED AUTHOR AUTHOR'S ORGANIZ ATION 05/19/2020 [facility] DATE CREATED AUTHOR AUTHOR'S ORGANIZ ATION 08/17/2020 [facility] DATE CREATED AUTHOR AUTHOR'S ORGANIZ ATION 11/12/2020 [facility] ([place] DATE CREATED AUTHOR AUTHOR'S ORGANIZ ATION 07/29/2021 [facility] DATE CREATED AUTHOR AUTHOR'S ORGANIZ ATION 09/11/2022 [facility] DATE CREATED AUTHOR AUTHOR'S ORGANIZ ATION 03/20/2025 [facility] DATE CREATED AUTHOR AUTHOR'S ORGANIZ ATION 03/26/2025 [facility] DATE CREATED AUTHOR AUTHOR'S ORGANIZ ATION 06/18/2025 [facility] Goals (unrecognized section and content) Goals may [...] or prosecute any alcohol or drug abuse patient.[facility] the event this information is protected by the Federal Confidentiality of Alcohol and Drug Abuse Patient Records regulations: The Federal rules restrict any use of the information to criminally investigate or prosecute any alcohol or drug abuse patient.[facility] Hospital[facility] the event this information is protected by the Federal Confidentiality of Alcohol and Drug Abuse Patient Records regulations: The Federal rules restrict any use of the information to criminally investigate or prosecute any alcohol or drug abuse patient.[facility] Reason for Visit (unrecogniz ed section and content) Reason Comments Appointment Reason Onset Date Comments Appointment Request 01/01/2025 Reason Comments New Patient Memory Loss Specialty Diagnoses / Procedures Referred By Contac t Referred To Contact Diagnoses Memory deficit, cerebral infarct,aphasia, Procedures [place] OFFICE/OUTPATIENT NEW MODERATE MDM 45 MINUTES [facility] [address] [facility] [address] [place] [address] Phone: tel: fax: Stew Oswald MD [address] [place] [address] Phone: tel: fax: Referral ID Status Reason Start Date Expiration Date V isits Requested Visits Authorized [id number] Pending Review 09/09/2024 09/09/2025 1 1 Reason Comments Follow-up Seizures Care Teams (unrecognized sec tion and content) Airport Control Operator Relationship Specialty Start Date End Date Marcus Tierney MD [address] [place] [address] PCP - General Family Practice 02/11/20 Aliya Clarke, RN Registered Nurse 06/07/22 Cornelius Jiménez, DO [address] [place] [address] Family Practice 06/08/22 German Altman, DO [address] [place] [address] Primary Staff Physician Family Practice 06/08/22 Namita Schumacher, DO [address] [place] [address] Primary Staff Physician Family Practice 06/08/22 Marcus Tierney MD [address] [place] [address] Primary Staff Physician Family Practice 06/08/22 Yoav Tierney MD [address] [place] [address] Primary Staff Physician Family Practice 06/08/22 Delbert Ariza MD [address] [place] [address] Primary Staff Physician Family Practice 06/08/22 Shankar Marino, DO [address] [place] [address] Primary Staff Physician Family Practice 06/08/22 [facility] [address] [place] [address] Family Practice 06/08/22 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 Control 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 Relationship Specialty Start Date End Date Marcus Tierney MD [address] [place] [address] PCP - General Family Medicine 02/11/20 Aliya Clarke, RN Registered Nurse 06/07/22 Cornelius Jiménez, DO [address] [place] [address] Family Medicine 06/08/22 German Altman, DO [address] [place] [address] Primary Staff Physician Family Medicine 06/08/22 Namita Schumacher, DO [address] [place] [address] Primary Staff Physician Family Medicine 06/08/22 Marcus Tierney MD [address] [place] [address] Primary Staff Physician Family Medicine 06/08/22 Yoav Tierney MD [address] [place] [address] Primary Staff Physician Family Medicine 06/08/22 Delbert Ariza MD [address] [place] [address] Primary Staff Physician Family Medicine 06/08/22 Shankar Marion DO [address] [place] [address] Primary Staff Physician Family Medicine 06/08/22 [facility] [place] [address] [place] [address] Family Medicine 06/08/22 Aliya Clarke, MONAE Registered [...] Team Status: Active Member Role Status Dates [facility] Attending Provider Active Start: December 24, 2024 Team Status: Active Member Role Status Dates Robb ROB Attending Provider Active Star t: December 30, 2024 Team Status: Active Member Role Status Dates Robb ROB Attending Provider Active Star t: December 31, 2024 Team Status: Inactive Member Role Status Dates Robb ROB Attending Provider Active Star t: January 14, 2025 End: January 14, 2025 Airport Control Operator Relationship Specialty Start Date End Date Robb Barnes MD [address] [place] [address] [address] [place] [address] PCP - General Family Medicine 02/06/25 Airport Control Operator Relationship Specialty Start Date End Date Robb Barnes MD [facility] [address] [place] [address] [address] [place] [address] PCP - [facility] 02/06/25 Team Status: Inactive Member Role Status Dates Robb ROB Attending Provider Active Star t: March 06, 2025 End: March 06, 2025 Airport Control Operator Relationship Specialty Start Date End Date Robb Barnes MD [address] [place] [address] [address] [place] [address] PCP - [facility] 02/06/25 Team Status: Inactive Member Role/Relationship Status Dates Robb ROB Attending Provider Active Star t: March 06, 2025 End: March 06, 2025 Team Status: Active Member Role/Relationship Status Dates Robb ROB Attending Provider Active Star t: April 01, [...] BE BASED ON THE PRIMARY CLINICAL RECORDS. [facility]. provides no warranty or guarantee of the accuracy or completeness of information in this document.
[2025-06-23 10:41] LABS: T3 Total - Triiodothyronine 1.39 ng/mL (0.80-2.00); T4 Total, Thyroxin 11.9 ug/dL (4.8-13.9)
== END ==
LOC: OLS.ACW300 05:00
PROVIDERS: Visit Provider Family Medicine
DX: E03.9 Hypothyroidism, unspecified (principal); R41.82 Altered mental status, unspecified; R13.12 Dysphagia, oropharyngeal phase; D64.9 Anemia, unspecified; R53.1 Weakness; G40.509 Epileptic seizures related to external causes, not intractable, without status epilepticus
CPT/HCPCS: 36415; 84436; 84443; 84480

== ENCOUNTER → 2025-07-22 11:30 | Outpatient (REF) | payer MEDICARE, MEDICAID, SELFPAY ==
[2025-07-23 09:41] LABS: Color, Urine Yellow (Yellow); Glucose, Dipstick Normal (Normal); Ketone-Dipstick Negative (Negative); Leukocyte Esterase-Dipstick 500 /ul (Negative); Nitrite-Dipstick Positive (Negative); Occult Blood-Urine 10 /ul (Negative); Protein-Dipstick 30 mg/dl (Negative); Specific Gravity, Urine 1.015 (1.002-1.030); Urine Bilirubin Dipstick Negative (Negative)
== END ==
LOC: OLS.ACW300 11:30
PROVIDERS: Visit Provider Family Medicine
DX: R35.0 Frequency of micturition (principal); R30.0 Dysuria; R41.82 Altered mental status, unspecified; R13.12 Dysphagia, oropharyngeal phase; D64.9 Anemia, unspecified; R53.1 Weakness; G40.509 Epileptic seizures related to external causes, not intractable, without status epilepticus
CPT/HCPCS: 81002; 87077; 87086; 87088; 87186

== ENCOUNTER → 2025-08-24 02:30 | Outpatient (REF) | payer MEDICARE, MEDICAID, SELFPAY ==
[2025-08-24 08:24] LABS: Mucous, Urine 0 SEEN /hpf (<or=2+)
[2025-08-24 08:49] LABS: Color, Urine Yellow (Yellow); Glucose, Dipstick Normal (Normal); Ketone-Dipstick Negative (Negative); Leukocyte Esterase-Dipstick 100 /ul (Negative); Nitrite-Dipstick Positive (Negative); Occult Blood-Urine 25 /ul (Negative); Protein-Dipstick 15 mg/dl (Negative); Specific Gravity, Urine 1.010 (1.002-1.030); Urine Bilirubin Dipstick Negative (Negative)
[2025-08-24 09:17] LABS: Red Blood Cells-Urine 0-5 SEEN /hpf (0-5); Squamous Epithelial Cells - UA 0-5 SEEN /hpf (5-10)
== END ==
LOC: OLS.ACW300 02:30
PROVIDERS: Referring Provider Family Medicine; Visit Provider Family Medicine
DX: R41.0 Disorientation, unspecified (principal); R53.1 Weakness
CPT/HCPCS: 81001; 87077; 87086; 87088; 87186

== ENCOUNTER → 2025-08-27 | Outpatient (REF) | payer MEDICARE, MEDICAID, SELFPAY ==
--- OUTSIDE RECORDS SUMMARY | 2025-08-27 04:44 | XMS RPT_ITS | CCD ---
Author Organization [facility] ion Partnership [facility] Care Team Providers Care Supervisor Advice Name Role Phone Marcus Tierney MD Primary Care Provider Tricia LICONA, Aliya Unavailable Unavailable Cornelius Jiménez DO Unavailable German Altman DO Unavailable [phone] Namita Schumacher DO Unavailable Marcus Tierney MD Unavailable Yoav Tierney MD Unavailable [phone] Delbert Ariza MD Unavailable [phone] Shankar Marino DO Unavailable [phone] Mo, [place] Unavailable Marcus Tierney MD Primary Care Provider Tricia LICONA, Aliya Unavailable Unavailable Cornelius Jiménez DO Unavailable [phone] German Altman DO Unavailable [phone] Namita Schumacher DO Unavailable Marcus Tierney MD Unavailable [phone] Yoav Tierney MD Unavailable [phone] Delbert Ariza MD Unavailable [phone] Shankar Marino DO Unavailable [place], [place] Unavailable Clarke RN, Aliya Unavailable Unavailable Unavailable Primary Care Provider UnavailRobb Ballard Attending Provider Unavailjuan [facility] Attending Provider Robb Donohue MD Primary Care Provider [phone] ICJONNY II, ELIA Admitting Unavailable NILTON RODRIGUEZ Attending Unavailable ITRAT, AHMED Consulting Unavailable Robb Coon Attending Provider UnavailFouzia ROB, Robb Attending Provider Unavailjuan Fonseca [facility], Paty Unavailable Robb Barnes MD Unavailable STEW OSWALD Attending Unavailable STEW OSWALD Referring Unavailable ROBB BARNES Primary Care Unavailable STEW OSWALD Attending Unavailable ROBB BARNES Primary Care Unavailable MARGRET, STEW Attending Unavailable ROBB BARNES Primary Care Unavailable Stephany ROB, Robb Attending Physician Unavailab Brooke [facility], Crystal Unavailable [facility] Attending Unav ailable Stephany ROB, Robb Attending Unavailable Stephany ROB, Robb Attending Unavailable Stephany ROB, Robb Attending Unavailable Stephany ROB, Robb Attending Unavailable Stephany ROB, Robb Attending Unavailable Stephany ROB, Robb Attending Unavailable Stephany ROB, Robb Attending Unavailable Stephany ROB, Robb Attending Unavailable Stephany OLS, Robb Attending Unavailable Stephany DARRON, Robb Attending Unavailable Stephany OLS, Robb Attending Unavailable Stephany ROB, Robb Attending Unavailable Stephany ROB, Robb Attending Unavailable Allergies Allergy Classification Reported Allergen(s) Allergy Type Date of Onset Reaction(s) Facility (15 sources) Codeine; Translations: [CODEINE] Drug Allergy 7 Other: See Comments [facility] (10 sources) Levetiracetam; Translations: [LEVETIRACETAM] Propensity to adverse reactions 5 Other [facility] (2 sources) Codeine Drug Allergy 3 [facility] (2 sources) Penicillin V Drug Allergy 5 [facility] Medications Current Medications Medication Drug Class(es) Dates Sig (Normalized) Sig (Original) acetaminophen 325 mg oral tablet (14 sources) Start: 01-13-2025 take 2 tablets by [...] as needed for pain active Joe Caballero [facility] [place] take 2 tablets by mo uth every six hours as needed acetaminophen (TYLENOL) 500 mg tablet Ta ke 1,000 mg by mouth every 6 hours as needed for pain. 0 Active Comment on above: Take 1,000 mg by garth th every 6 hours as needed for pain. alendronic acid 70 mg oral tablet (14 sources) Bisphosphonate take 1 tablet by mouth every week alendronate 70 mg tablet Take 1 tablet by mouth once a week active Joe Caballero [facility] [place] take 2 tablets by mo uth every [...] Control (pumpkin seed extract-soy germ) capsule 500mg (2 sources) take 1 capsule by mouth once daily Azo Bladder Control (pumpkin seed extract-soy germ) capsule 500mg Take 1 capsule by mouth once a day as directed active Joe Caballero [facility] [place] calcium carbonate 625 mg / cholecalciferol 125 unt oral tablet (12 sources) Vitamin D calcium carbonate-cholecalcif edmundo (Oyster Shell) 250-3.125 MG-MCG tablet Take 1 tablet by mouth. Active take 1 tablet by mouth twice namita ly calcium carbonate-vitamin D3 (CALCIUM 500+D) 500 mg(1,250mg) -400 unit chewable tablet Take 1 tablet by mouth twice daily. 0 Active Comment on above: Take 1 tablet by garth th twice daily. clopidogrel 75 mg oral tablet (13 sources) P2Y12 Platelet Inhibitor Start: 2 take 1 tablet by mouth once daily clopidogrel (Plavix) 75 MG tablet Take 75 mg by mouth daily. 01/13/2025 Active Comment on above: Take 1 tablet by garth th once daily. D-Mannose 500 MG capsule (9 sources) take 1 capsule by mouth once daily D-Mannose 500 MG capsule Take 500 mg by mouth daily. Active diclofenac sodium 0.01 mg/mg topical gel (14 sources) Nonsteroidal Anti-inflammatory Drug diclofenac 1 % topical gel to skin twice a day active Yee Marie [facility] [place] Diclofenac Sodiu m (Voltaren) 1 % gel [...] DULoxetine 30 mg delayed release oral capsule (11 sources) Serotonin and Norepinephrine Reuptake Inhibitor Start: 01-15-20 take 1 capsule by mouth once daily DULoxetine (Cymbalta) [address] capsule Take 30 mg by mouth daily. 01/14/2025 Active 84 hr estradiol 0.40033 mg/hr transdermal system (14 sources) Estrogen apply 1 dose transdermal route once daily Hilda 0.05 mg/24 hr transdermal patch Apply 1 patch to skin once a day active Joe Caballero [facility] [place] estradiol (Vivel le-DOT) 0.05 MG/24HR Place 1 patch on the skin once a week. Active estradiol (VIVEL LE-DOT) 0.05 mg/24 hr Apply 1 Patch as directed one time a week. 0 Active Comment on above: Apply 1 Patch as dir ected one time a week. ferrous sulfate 325 mg oral tablet (14 sources) Start: 12-18-2024 take 1 tablet by [...] mouth twice a day active Joe Caballero [facility] [place] Comment on above: Take 1 tablet by garth th daily with breakfast. levothyroxine sodium 0.175 mg oral tablet (14 sources) l-Thyroxine Start: 12-25-2024 levothyroxine (Synthroid, Levoxyl) [...] BREAKFAST lidocaine hydrochloride 40 mg/ml topical cream (2 sources) Antiarrhythmic, Amide Local Anesthetic lidocaine 4 % topica l cream Apply 1 a small amount to skin three times a day as needed for pain active Joe Caballero [facility] [place] lysine 500 mg oral tablet (11 sources) take 1 tablet by mouth once daily lysine 500 mg tablet Take 1 tablet by mouth once a day active Joe Caballero [facility] [place] take 2 tablets by mouth once namita ly LYSINE PO Take 500 mg by mouth daily. Take 2 tabs daily Active magnesium oxide 250 mg oral tablet (14 sources) take 1 tablet by mouth once daily magnesium 250 mg (as magnesium oxide) tablet Take 1 tablet by mouth once a day active Joe Caballero [facility] [place] Comment on above: Take 250 mg by mouth once daily. 24 hr mirabegron 25 mg extended release oral tablet (13 sources) beta3-Adrenergic Agonist take 1 tablet by mouth once daily, then take 1 tablet by mouth every twenty-four hours mirabegron ER (Myrbetriq) 25 MG 24 hr tablet Take 25 mg by mouth daily. Active Comment on above: Take 25 mg by mouth once daily. nystatin 100 unt/mg topical powder (2 sources) Polyene Antifungal Nystop 100,00 0 unit/gram powder as directed active Jessy Daugherty [facility] potassium chloride 10 meq extended release oral capsule (11 sources) Start: 5 potassium chloride ER (Micro-K) [...] Comment on above: Take 9 tablets by mo uth once daily for 30 days, THEN 8 [...] once daily. pregabalin 150 mg oral capsule (11 sources) Start: 5 End: 5 take 1 capsule by mouth once daily pregabalin (Lyrica) 150 MG capsule Take 150 mg by mouth daily. 12/19/2024 Active take 1 capsule by mouth twice da angela pregabalin 150 mg capsule Take 1 capsule by mouth twice a day active Yee Marie LPN [facility] [place] RA CALCIUM 600/VITAMIN D-3 (CALCIUM CARB-CHOLECALCIFEROL) 600-10 MG-MCG TABS (2 sources) take 1 tablet by mouth twice daily Calcium 600 + D(3) 600 mg-10 mcg (400 unit) tablet Take 1 tablet by mouth twice a day active Joe Caballero [facility] [place] rOPINIRole 0.5 mg oral table t (16 sources) Nonergot Dopamine Agonist take 1 tablet by mouth once daily ropinirole 0.5 mg tablet Take 1 tablet by mouth once a day active Joe Caballero [facility] [place] take 1 tablet by mouth once elsa y ropinirole 1 mg tablet Take 1 tablet by mouth once a day active Joe Caballero LPN [facility] [place] take 2 tablets by [facility] once daily at bedtime rOPINIRole (Requip) 0.5 [...] once daily. atorvastatin 80 mg oral tablet (5 sources) HMG-CoA Reductase Inhibitor Start: 01-11-2021 take 1 tablet by mouth once daily atorvastatin (LIPITOR) 80 mg tablet TAKE 1 TABLET BY MOUTH EVERY DAY 90 tablet 1 01/11/2021 Active Comment on above: [facility] cholestyramine resin 4000 mg powder [...] Comment on above: Take [address] [facility] once daily. Take while taking protonix gabapentin 100 mg oral capsule (2 sources) Anti-epileptic Agent Start: 11-07-2021 take 2 capsules by mouth twice daily gabapentin (NEURONTIN) 100 mg capsule Take 2 capsules by mouth twice daily for 60 days. 120 capsule 1 11/07/2021 Active Comment on above: Take 2 capsules by out twice daily for 60 days. hyoscyamine sulfate 0.12 mg / methenamine 118 mg / methylene blue 10 mg / phenyl salicylate 36 mg / sodium phosphate, monobasic 40.8 mg oral capsule (2 sources) Oxidation-Reduction Agent Start: 11-10-2020 take 1 capsule by mouth once daily [facility] Blue-Sod Omow-CzOrz-Cwx (URIBEL) 118-10-40.8-36 mg Take 1 capsule by mouth once daily. 30 capsule 5 11/10/2020 Active Comment on above: Take 1 capsule by [facility] once daily. L-LYSINE ORAL (3 sources) take 1000 mg by mouth once daily L-LYSINE ORAL Take 1,000 mg by mouth once daily. 0 Active Comment on above: [facility] lacosamide 100 mg oral tablet (20 sources) Anti-epileptic Agent Start: 03-08-2025 End: 08-09-2025 take 1 tablet by mouth twice daily Vimpat 100 MG tablet Indications: Focal epilepsy with impairment of consciousness, intractable (HCC) Take 1 tablet (100 mg) by mouth 2 times daily. Do not start before April 04, 2025. 60 tablet 2 04/04/2025 07/10/2025 Discontinued (Reorder) Start: 02-06-2025 End: 03-08-2025 take 1 tablet by mouth once daily in the evening, then take 1 tablet by mouth twice daily lacosamide (Vimpat) 100 MG tablet Indications: Focal epilepsy with impairment of consciousness, intractable (HCC) Take 1 tab po QPM for 10 days, then take 1 tab po BID. 50 tablet 02/06/2025 Active levETIRAcetam 250 mg oral tablet (3 sources) [...] tablet (3 sources) Proton Pump Inhibitor Start: 2 take 1 tablet by mouth once daily [...] (3 sources) Mood Stabilizer, Anti-epileptic Agent Start: 2 take 1 tablet by mouth twice daily divalproex DR (DEPAKOTE) 500 mg EC tablet Take 1 tablet by mouth twice daily. 60 tablet 0 11/07/2021 Active Comment on above: Take 1 tablet by garth th twice daily. zinc oxide 0.2 mg/mg topical ointment (3 sources) Start: 2 zinc oxide 20 % ointment Apply to [...] Translations: [Endometriosis, unspecified] 03-26-2017 Chronic Epilepsy; convulsions (14 sources) Epilepsy; Translations: [Epilepsy, unspecified, not intractable, [...] 2 02-08-2021 Chronic Other nervous system disorders (2 sources) Metabolic encephalopathy; Translations: [Metabolic encephalopathy] Onset: 5 [...] (4 sources) Hypothyroidism; Translations: [Hypothyroidism, unspecified] Onset: 5 11-07-2021 Chronic Past or Other Problems Problem [...] Onset: 02-20-2025 Episodic Other non-traumatic joint disorders (2 sources) Pain in left knee; Translations: [Pain in joint, lower leg] Onset: 08-17-2023 08-17-2023 Episodic Residual codes; unclassified (1 source) Altered mental status Onset: 12-14-2024 Episodic Urinary tract infections (4 sources) Urinary tract infectious disease; Translations: [Urinary tract infection, site not specified] Onset: 10-21-2021 10-21-2021 Episodic Results Test Name Value Interpretation Reference Range Facility Relevant diagnostic tests/la boratory data Narrativeon 08-20-2025 Fall risk assessment no FLORENCIO [employer] Work Phone: MEDS REVIEW Done [facility] Work Phone: MEDS REVIEWD Medications reviewed without changes [facility] Work Phone: Bilirubin Test strip Ql (U)O rdered By: Robb Barnes on 07-22-2025 Bilirubin Ql (U) Negative Negative [facility] Ketones Test strip Ql (U)Ord ered By: Robb Barnes on 07-22-2025 Ketones Ql (U) Negative Negative [facility] Nitrite Test strip Ql (U)Ord ered By: Robb Barnes on 07-22-2025 Nitrite Ql (U) Positive High Negative [facility] Protein Test strip Ql (U)Ord ered By: Robb Barnes on 07-22-2025 Protein Ql (U) 30 mg/dl High Negative [facility] Urine clarityOrdered By: Renan Barnes on 07-22-2025 Clarity (U) Clear Clear [facility] Urine color determinationOrd ered By: Robb Barnes on 07-22-2025 Color (U) Yellow Yellow [facility] Urine cultureOrdered By: Renan Barnes on 07-22-2025 Bacteria identified Cx Nom (U) ESBL Escherichia coli Abnormal [facility] Urine glucose detectionOrder ed By: Robb Barnes on 07-22-2025 Glucose Ql (U) Normal mg/dl Normal [facility] Urine leukocyte esterase det ection by dipstickOrdered By: Robb Barnes on 07-22-2025 Leukocyte esterase Test strip Ql (U) 500 /ul High Negative [facility] Urine pHOrdered By: Robb huerta on 07-22-2025 pH (U) 6.5 [pH] 5.0 - 8.0 [facility] Urine specific gravity measu rementOrdered By: Robb Barnes on 07-22-2025 Specific gravity (U) [Rel density] 1.015 1.002-1.030 [facility] Urine urobilinogen measureme ntOrdered By: Robb Barnes on 07-22-2025 Urobilinogen Ql (U) Normal mg/dl Normal [facility] 36on 07-13-2025 36 Message released to [facility] as written. [facility]'s further questions if applicable: Verbalized understanding. Were all questions from office addressed or relayed to [facility] from encounter: Yes [facility] 36 Lm for Ketty [phone] to call the office back, please relay providers message [place] [address]on 07-10-2025 36 Lm for Ketty [phone] to call the office back, please relay providers message. [facility] 36 I sent in an Rx for Vimpat. Remind them that Vimpat is a controlled substance and I am only allowed to write for a month and two refills, so they have to call ahead to warn me when it is time to refill. [facility] 36 MONAE Hdez ([facility] ) called in stating patient has 1 dose left and is requesting script be sent. Please be advised [facility] 36on 07-09-2025 36 Patinet has two does left Vimpat 100 MG tablet Dose: 100 mg Route: Oral Frequency: 2 times daily Dispense Quantity: 60 tablet (30 day supply) Refills: 2 Duration: 30 days Dispense As Written: Yes Sig: Take 1 tablet (100 mg) by mouth 2 times daily. If taking medication PRN, reason for taking medication: N/A If this is a controlled substance do you receive this or any other controlled medication from any other doctor or facility: N/A Ordering provider: Dr. Oswald Date of last office visit: 03/25/25 Date of next office visit: 09/24/25 Date of last refill: (see medication tab): 04/04/25 Updated/Validated preferred pharmacy: Yes Patient instructed to contact the pharmacy prior to picking up the medication: N/A [facility] Serum or plasma triiodothyro nine (T3) measurement (mass/volume)Ordered By: Robb Barnes on 06-23-2025 T3 [Mass/Vol] 1.39 ng/mL 0.80-2.00 [facility] TSH DL <= 0.005 mIU/L QnOrde red By: Robb Barnes on 06-23-2025 TSH Qn < 0.005 uIU/mL Low 0.300-4.200 [facility] ThyroxineOrdered By: Robb Barnes on 06-23-2025 T4 [Mass/Vol] 11.9 ug/dL 4.8-13.9 [facility] Absolute lymphocyte countOrd ered By: Robb Barnes on 06-17-2025 Lymphocytes Auto (Unsp spec) [#/Vol] 1.49 10*3/uL 0.83-4.51 [facility] Absolute neutrophil countOrd ered By: Robb Barnes on 06-17-2025 Neutrophils (Bld) [#/Vol] 3.5 10*3/uL 2.0-7.7 [facility] Anion gap in Serum or Plasma Ordered By: Robb Barnes on 06-17-2025 Anion gap [Moles/Vol] 10 mmol/L 5-15 [facility] Automated lymphocyte count a s percentage of total leukocytesOrdered By: Robb Barnes on 06-17-2025 Lymphocytes/100 WBC Auto (Unsp spec) 26.4 % 19-41 [facility] BUN/creatinine ratioOrdered By: Robb Barnes on 06-17-2025 Urea nitrogen/Creatinine [Mass ratio] 25.9 mg/mg High 10-20 [facility] Basophil percentageOrdered B y: Robb Barnes on 06-17-2025 Basophils/100 WBC (Bld) 0.5 % 0-1 [facility] Bilirubin Test strip Ql (U)O rdered By: Robb Barnes on 06-17-2025 Bilirubin Ql (U) Negative Negative [facility] Bilirubin directOrdered By: Robb Barnes on 06-17-2025 Bilirubin.direct [Mass/Vol] 0.12 mg/dL 0.00-0.30 [facility] Bilirubin, totalOrdered By: Robb Barnes on 06-17-2025 Bilirubin [Mass/Vol] 0.28 mg/dL 0.00-1.30 [facility] Carbon dioxide, total [Moles /volume] in Central venous bloodOrdered By: Robb Barnes on 06-17-2025 CO2 [Moles/Vol] 23.2 mmol/L 21.0-32.0 [facility] Chloride assayOrdered By: Ramila Barnes on 06-17-2025 Chloride [Moles/Vol] 107 mmol/L 98-108 [facility] Eosinophil percentageOrdered By: Robb Barnes on 06-17-2025 Eosinophils/100 WBC (Bld) 3.7 % 0-5 [facility] Erythrocyte distribution wid th ratioOrdered By: Robb Barnes on 06-17-2025 Erythrocyte distribution width (RBC) [Ratio] 14.1 % 11.6-14.6 [facility] Erythrocyte distribution wid th standard deviationOrdered By: Robb Barnes on 06-17-2025 Erythrocyte distribution width (RBC) [Ratio] 50.1 fl High 35.1-43.9 [facility] Glomerular filtration rate ( GFR) estimation/1.73 sq m using serum, plasma, or whole bOrdered By: Robb Barnes on 06-17-2025 GFR/1.73 sq M.predicted among non-blacks MDRD (S/P/Bld) [Vol rate/Area] 96 mL/min/{1.73_m2} >60 [facility] Comment on above: mL/min/1.73m2 CKD-EP I Creatinine Equation (2020) Hematocrit Auto (Bld) [Volum e fraction]Ordered By: Robb Barnes on 06-17-2025 Hematocrit (Bld) [Volume fraction] 33.6 % Low 37-47 [facility] Hemoglobin measurementOrdere d By: Robb Barnes on 06-17-2025 Hemoglobin (Bld) [Mass/Vol] 11.1 g/dL Low 12.0-15.0 [facility] Immature granulocytes/100 WB C Auto (Bld)Ordered By: Robb Barnes on 06-17-2025 Immature granulocytes/100 WBC (Bld) 0.200 % 0.0-0.9 [facility] Comment on above: IG% - Immature Granu locytes (promyelocytes, myelocytes and metamyelocytes) > 1% indicates that a LEFT SHIFT is Present. Ketones Test strip Ql (U)Ord ered By: Robb Barnes on 06-17-2025 Ketones Ql (U) Negative Negative [facility] Laboratory - Chemistry and C hemistry - challengeOrdered By: Robb Barnes on 06-17-2025 AST [Catalytic activity/Vol] 22 U/L <32 [facility] MCV (mean corpuscular volume ) determinationOrdered By: Robb Barnes on 06-17-2025 MCV (RBC) [Entitic vol] 96.6 fL 81-99 [facility] Mean corpuscular hemoglobin (MCH) determinationOrdered By: Robb Barnes on 06-17-2025 MCH (RBC) [Entitic mass] 31.9 pg 27.0-32.0 [facility] Mean corpuscular hemoglobin concentration (MCHC) determinationOrdered By: Robb Barnes on 06-17-2025 MCHC (RBC) [Mass/Vol] 33.0 g/dL 32-36 [facility] Mean platelet volume determi nationOrdered By: Robb Barnes on 06-17-2025 Platelet mean volume (Bld) [Entitic vol] 9.2 fL 6.2-12.0 [facility] Microscopic analysis of urin e for red blood cells (RBC)Ordered By: Robb Barnes on 06-17-2025 Microscopic analysis of urine for red blood cells (RBC) 0 SEEN /hpf 0-5 [facility] Monocyte percentageOrdered B y: Robb Barnes on 06-17-2025 Monocytes/100 WBC (Bld) 8.1 % 0-10 [facility] Mucus LM Ql (Urine sed)Order ed By: Robb Barnes on 06-17-2025 Mucus Ql (Urine sed) 0 SEEN /hpf [facility] Neutrophil percentageOrdered By: Robb Barnes on 06-17-2025 Neutrophils/100 WBC (Bld) 61.1 % 47-70 [facility] Nitrite Test strip Ql (U)Ord ered By: Robb Barnes on 06-17-2025 Nitrite Ql (U) Positive High Negative [facility] Nucleated red blood cell per centageOrdered By: Robb Barnes on 06-17-2025 Nucleated RBC/100 WBC (Bld) [Ratio] 0 % 0-5 [facility] Platelet countOrdered By: Ramila Barnes on 06-17-2025 Platelets (Bld) [#/Vol] 204 10*3/uL 150-450 [facility] Potassium measurement (mass/ volume)Ordered By: Robb Barnes on 06-17-2025 Potassium (Unsp spec) [Mass/Vol] 4.2 mmol/L 3.3-5.1 [facility] Protein Test strip Ql (U)Ord ered By: Robb Barnes on 06-17-2025 Protein Ql (U) 15 mg/dl High Negative [facility] RBC Auto (Bld) [#/Vol]Ordere d By: Robb Barnes on 06-17-2025 RBC (Bld) [#/Vol] 3.48 10*6/uL Low 4.2-5.4 [facility] Serum creatinine measurement (mass/volume)Ordered By: Robb Barnes on 06-17-2025 Creatinine [Mass/Vol] 0.56 mg/dL Low 0.70-1.20 [facility] Serum globulin measurementOr dered By: Robb Barnes on 06-17-2025 Globulin (S) [Mass/Vol] 2.8 g/dL 2.2-4.2 [facility] Serum glucose measurement (m ass/volume)Ordered By: Robb Barnes on 06-17-2025 Glucose [Mass/Vol] 105 mg/dL High 70-99 [facility] Serum or plasma alanine timmons otransferase (ALT) measurementOrdered By: Robb Barnes on 06-17-2025 ALT [Catalytic activity/Vol] 16 U/L <35 [facility] Serum or plasma albumin claudette urement (mass/volume)Ordered By: Robb Barnes on 06-17-2025 Albumin [Mass/Vol] 3.3 g/dL Low 3.4-4.8 [facility] Serum or plasma alkaline karson sphatase measurementOrdered By: Robb Barnes on 06-17-2025 ALP [Catalytic activity/Vol] 104 U/L 35-104 [facility] Serum or plasma calcium claudette urement (mass/volume)Ordered By: Robb Barnes on 06-17-2025 Calcium [Mass/Vol] 9.5 mg/dL 7.6-11.0 [facility] Serum or plasma urea nitroge n measurement (mass/volume)Ordered By: Robb Barnes on 06-17-2025 Urea nitrogen [Mass/Vol] 15 mg/dL 4-19 [facility] Sodium levelOrdered By: Vern Barnes on 06-17-2025 Sodium [Moles/Vol] 141 mmol/L 133-145 [facility] Squamous epithelial cells de tection in urine sediment by light microscopyOrdered By: Robb Barnes on 06-17-2025 Epithelial cells.squamous LM Ql (Urine sed) 0-5 SEEN /hpf 5-10 [facility] Total proteinOrdered By: Renan Barnes on 06-17-2025 Protein [Mass/Vol] 6.1 g/dL 5.9-8.4 [facility] Urine clarityOrdered By: Renan Barnes on 06-17-2025 Clarity (U) Clear Clear [facility] Urine color determinationOrd ered By: Robb Barnes on 06-17-2025 Color (U) Yellow Yellow [facility] Urine cultureOrdered By: Renan Barnes on 06-17-2025 Bacteria identified Cx Nom (U) ESBL Escherichia coli Abnormal [facility] Urine glucose detectionOrder ed By: Robb Barnes on 06-17-2025 Glucose Ql (U) Normal mg/dl Normal [facility] Urine leukocyte esterase det ection by dipstickOrdered By: Robb Barnes on 06-17-2025 Leukocyte esterase Test strip Ql (U) 25 /ul High Negative [facility] Urine pHOrdered By: Robb huerta on 06-17-2025 pH (U) 5.0 [pH] 5.0 - 8.0 [facility] Urine sediment bacteria coun t by microscopy (number/high power field)Ordered By: Robb Barnes on 06-17-2025 Bacteria LM.HPF (Urine sed) [#/Area] 3 /[HPF] None Seen [facility] Urine specific gravity measu rementOrdered By: Robb Barnes on 06-17-2025 Specific gravity (U) [Rel density] 1.020 1.002-1.030 [facility] Urine urobilinogen measureme ntOrdered By: Robb Barnes on 06-17-2025 Urobilinogen Ql (U) Normal mg/dl Normal [facility] White blood cell (WBC) count Ordered By: Robb Barnes on 06-17-2025 WBC (Bld) [#/Vol] 5.7 10*3/uL 4.4-11.0 [facility] White blood cell countOrdere d By: Robb Barnes on 06-17-2025 White blood cell count 10-25 SEEN /hpf 0-5 [facility] Relevant diagnostic tests/la boratory data Narrativeon 05-26-2025 Fall risk assessment no [employer] Work Phone: MEDS REVIEW Documentation of current medications (procedure) [employer] Work Phone: MEDS REVIEWD Medications reviewed without changes [employer] [facility] Work Phone: Bilirubin Test strip Ql (U)O rdered By: Robb Barnes on 04-01-2025 Bilirubin Ql (U) Negative Negative [facility] Ketones Test strip Ql (U)Ord ered By: Robb Barnes on 04-01-2025 Ketones Ql (U) Negative Negative [facility] Nitrite Test strip Ql (U)Ord ered By: Robb Barnes on 04-01-2025 Nitrite Ql (U) Negative Negative [facility] Protein Test strip Ql (U)Ord ered By: Robb Barnes on 04-01-2025 Protein Ql (U) Negative Negative [facility] Urine clarityOrdered By: Renan Barnes on 06-11-2025 Clarity (U) Clear Clear [facility] Urine color determinationOrd ered By: Robb Barnes on 04-01-2025 Color (U) Yellow Yellow [facility] Urine cultureOrdered By: Renan Barnes on 04-01-2025 Bacteria identified Cx Nom (U) Culture exhibits no growth. [facility] Urine glucose detectionOrder ed By: Robb Barnes on 04-01-2025 Glucose Ql (U) Normal mg/dl Normal [facility] Urine leukocyte esterase det ection by dipstickOrdered By: Robb Barnes on 04-01-2025 Leukocyte esterase Test strip Ql (U) Negative Negative [facility] Urine pHOrdered By: Robb huerta on 04-01-2025 pH (U) 6.0 [pH] 5.0 - 8.0 [facility] Urine specific gravity measu rementOrdered By: Robb Barnes on 04-01-2025 Specific gravity (U) [Rel density] 1.015 1.002-1.030 [facility] Urine urobilinogen measureme ntOrdered By: Robb Barnes on 04-01-2025 Urobilinogen Ql (U) Normal mg/dl Normal [facility] Office Visiton 03-25-2025 Follow-up visit [id number] Elba Diaz 1950 F Date Provider Department Center 03/25/2025 [id number] OSWALD [facility] None Family History Problem Relation Age of Onset Heart disease Mother Heart disease Father Carotid Artery Stenosis Father Family Status - Relation Status Age at Mother Father Level of Service:[id number] [place] OFFICE/OUTPATIENT ESTABLISHED LOW MDM 20 MIN Reason for Visit and Comments: Follow-up [382040] Seizures [97] Normal [facility] Progress Noteon 03-25-2025 Progress Note [facility] [place] [address] [facility] [address] [facility] [address] Dept: [phone] Dept Loc: [phone] Stew Oswald MD CHIEF COMPLAINT: Chief Complaint [...] She reports that she is actively seeing [facility] ("I saw them a couple of [...] Resource Strain: Low Risk (06/03/2020) Received from [facility] Overall Financial Resource Strain (CARDIA) Difficulty of Paying Living Expenses: Not hard at all Food Insecurity: No Food Insecurity (12/16/2024) Received from [facility] Hunger Vital Sign Worried About Running Out of Food in the Last Year: Never true Ran Out of Food in the Last Year: Never true Transportation Needs: No Transportation Needs (12/16/2024) Received from [facility] PRAPARE - Transportation Lack of Transportation (Medical): No Lack of Transportation (Non-Medical): No Physical Activity: Not on file Stress: Not on file Social Connections: Not on file Intimate Partner Violence: Not on file Housing Stability: Low Risk (12/16/2024) Received from [facility] Housing Stability Vital Sign Unable to Pay [...] and Station: wheel (more content not included)... Normal [facility] 36on 02-10-2025 36 OK to send that plac e the order. [facility] 36 Called [facility]@ [phone]. HARVEY Walker Auth is Valid if performed in facility. [facility] [phone] . Normal [place] [address] Ketty-from [facility], said patient was ordered a Vascular US carotic arteries bilateral Ins won't pay if she goes by a cot and this is only way patient can be transferred However, the facility does have a company that comes to [facility] And can do the Vascular US at [facility] Would this be OK? #[phone]-Ketty at [facility] Office Visiton 02-06-2025 Follow-up visit [id number] IdaliaElba 1950 F Date Provider Department Center 02/06/2025 [id number] MARTIN [facility] None Family History Problem Relation Age of Onset Heart disease Mother Heart disease Father Carotid Artery Stenosis Father Family Status - Relation Status Age at Mother Father Level of Service:76367 [place] OFFICE/OUTPATIENT NEW HIGH [facility] 60 MINUTES Reason for Visit and Comments: New Patient [542] Memory Loss [66] Normal [facility] Progress Noteon 02-06-2025 Progress Note [address] [facility] [address] Dept: [phone] Dept Loc: [phone] Stew Oswald MD CHIEF COMPLAINT: Chief Complaint [...] Resource Strain: Low Risk (06/03/2020) Received from [facility], [facility] Overall Financial Resource Strain (CARDIA) Difficulty of Paying Living Expenses: Not hard at all Food Insecurity: No Food Insecurity (12/16/2024) Received from [facility] Hunger Vital Sign Worried About Running Out of Food in the Last Year: Never true Ran Out of Food in the Last Year: Never true Transportation Needs: No Transportation Needs (12/16/2024) Received from [facility] PRAPARE - Transportation Lack of Transportation (Medical): No Lack of Transportation (Non-Medical): No Physical Activity: Not on file Stress: Not on file Social Connections: Not on file Intimate Partner Violence: Not on file Housing Stability: Low Risk (12/16/2024) Received from [facility] Housing Stability Vital Sign Unable to Pay for Housing in the Last Year: No Number of Times Moved in the Last Year: 1 Homeless in the Last Year: No Family History: Family History Problem Relation Name Age of Onset Heart disease Mother Heart disease Father Carotid Artery St (more content not included)... Normal [facility] Anion gap in Serum or Plasma Ordered By: Robb Barnes on 01-14-2025 Anion gap [Moles/Vol] 11 mmol/L 5-15 [facility] BUN/creatinine ratioOrdered By: Robb Barnes on 01-14-2025 Urea nitrogen/Creatinine [Mass ratio] 40.4 mg/mg High 10-20 [facility] Bilirubin, totalOrdered By: Robb Barnes on 01-14-2025 Bilirubin [Mass/Vol] 0.21 mg/dL 0.00-1.30 [facility] Carbon dioxide, total [Moles /volume] in Central venous bloodOrdered By: Robb Barnes on 01-14-2025 CO2 [Moles/Vol] 21.7 mmol/L 21.0-32.0 [facility] Chloride assayOrdered By: Ramila Barnes on 01-14-2025 Chloride [Moles/Vol] 107 mmol/L 98-108 [facility] Erythrocyte distribution wid th (RBC) [Ratio]Ordered By: Robb Barnes on 01-14-2025 Erythrocyte distribution width (RBC) [Entitic vol] 49.8 fL High 35.1-43.9 [facility] Erythrocyte distribution wid th ratioOrdered By: Robb Barnes on 01-14-2025 Erythrocyte distribution width (RBC) [Ratio] 14.0 % 11.6-14.6 [facility] Erythrocyte distribution wid th standard deviationOrdered By: Robb Barnes on 01-14-2025 Erythrocyte distribution width (RBC) [Ratio] 49.8 fl High 35.1-43.9 [facility] GFR/1.73 sq M.predicted juwan g non-blacks MDRD (S/P/Bld) [Vol rate/Area]Ordered By: Robb Barnes on 01-14-2025 Estimated GFR (MDRD) Non-Af Amer 104 >60 [facility] Comment on above: mL/min/1.73m2 CKD-EP I Creatinine Equation (2020) Glomerular filtration rate ( GFR) estimation/1.73 sq m using serum, plasma, or whole bOrdered By: Robb Barnes on 01-14-2025 GFR/1.73 sq M.predicted among non-blacks MDRD (S/P/Bld) [Vol rate/Area] 104 mL/min/{1.73_m2} >60 [facility] Comment on above: mL/min/1.73m2 CKD-EP I Creatinine Equation (2020) Hematocrit Auto (Bld) [Volum e fraction]Ordered By: Robb Barnes on 01-14-2025 Hematocrit (Bld) [Volume fraction] 35.0 % Low 37-47 [facility] Hemoglobin measurementOrdere d By: Robb Barnes on 01-14-2025 Hemoglobin (Bld) [Mass/Vol] 11.2 g/dL Low 12.0-15.0 [facility] Laboratory - Chemistry and C hemistry - challengeOrdered By: Robb Barnes on 01-14-2025 AST [Catalytic activity/Vol] 47 U/L High <32 [facility] MCV (mean corpuscular volume ) determinationOrdered By: Robb Barnes on 01-14-2025 MCV (RBC) [Entitic vol] 100.9 fL High 81-99 [facility] Mean corpuscular hemoglobin (MCH) determinationOrdered By: Robb Barnes on 01-14-2025 MCH (RBC) [Entitic mass] 32.3 pg High 27.0-32.0 [facility] Mean corpuscular hemoglobin concentration (MCHC) determinationOrdered By: Robb Barnes on 01-14-2025 MCHC (RBC) [Mass/Vol] 32.0 g/dL 32-36 [facility] Mean platelet volume determi nationOrdered By: Robb Barnes on 01-14-2025 Platelet mean volume (Bld) [Entitic vol] 8.8 fL 6.2-12.0 [facility] Platelet countOrdered By: Ramila Barnes on 01-14-2025 Platelets (Bld) [#/Vol] 305 10*3/uL 150-450 [facility] Potassium (Unsp spec) [Mass/ Vol]Ordered By: Robb Barnes on 01-14-2025 Potassium [Moles/Vol] 4.0 mmol/L 3.3-5.1 [facility] Potassium measurement (mass/ volume)Ordered By: Robb Barnes on 01-14-2025 Potassium (Unsp spec) [Mass/Vol] 4.0 mmol/L 3.3-5.1 [facility] RBC Auto (Bld) [#/Vol]Ordere d By: Robb Barnes on 01-14-2025 RBC (Bld) [#/Vol] 3.47 10*6/uL Low 4.2-5.4 [facility] Serum creatinine measurement (mass/volume)Ordered By: Robb Barnes on 01-14-2025 Creatinine [Mass/Vol] 0.41 mg/dL Low 0.70-1.20 [facility] Serum globulin measurementOr dered By: Robb Barnes on 01-14-2025 Globulin (S) [Mass/Vol] 2.5 g/dL 2.2-4.2 [facility] Serum glucose measurement (m ass/volume)Ordered By: Robb Barnes on 01-14-2025 Glucose [Mass/Vol] 105 mg/dL High 70-99 [facility] Serum or plasma alanine timmons otransferase (ALT) measurementOrdered By: Robb Barnes on 01-14-2025 ALT [Catalytic activity/Vol] 27 U/L <35 [facility] Serum or plasma albumin claudette urement (mass/volume)Ordered By: Robb Barnes on 01-14-2025 Albumin [Mass/Vol] 3.0 g/dL Low 3.4-4.8 [facility] Serum or plasma albumin/glob ulin mass ratioOrdered By: Robb Barnes on 01-14-2025 Albumin/Globulin [Mass ratio] 1.2 {ratio} 0.9-2.4 [facility] Serum or plasma alkaline karson sphatase measurementOrdered By: Robb Barnes on 01-14-2025 ALP [Catalytic activity/Vol] 52 U/L 35-104 [facility] Serum or plasma calcium claudette urement (mass/volume)Ordered By: Robb Barnes on 01-14-2025 Calcium [Mass/Vol] 7.5 mg/dL Low 7.6-11.0 [facility] Serum or plasma urea nitroge n measurement (mass/volume)Ordered By: Robb Barnes on 01-14-2025 Urea nitrogen [Mass/Vol] 16 mg/dL 4-19 [facility] Sodium levelOrdered By: Vern Barnes on 01-14-2025 Sodium [Moles/Vol] 139 mmol/L 133-145 [facility] Total proteinOrdered By: Renna Barnes on 01-14-2025 Protein [Mass/Vol] 5.4 g/dL Low 5.9-8.4 [facility] White blood cell (WBC) count Ordered By: Robb Barnes on 01-14-2025 WBC (Bld) [#/Vol] 8.3 10*3/uL 4.4-11.0 [facility] Basic metabolic 2000 panelon 01-13-2025 Anion gap [Moles/Vol] 10 mmol/L Normal 8-15 [facility] Comment on above: Order Comment: Speci men Type: BLOOD SPECIMENOrdering Facility: [facility] Address: [address] [place] [address] Performed By: #### 2 4321-2, ####[facility]ORYCLIA [id number] [place] [address] [place] Calcium [Mass/Vol] 9.3 mg/dL Normal 8.5-10.2 [facility] Comment on above: Order Comment: Speci men Type: BLOOD SPECIMENOrdering Facility: [facility] Address: [address] [place] [address] Performed By: #### 2 4321-2, ####[facility] LABORATORYCLIA [id number] [place] [address] [place] Chloride [Moles/Vol] 104 mmol/L Normal 98-107 [facility] Comment on above: Order Comment: Speci men Type: BLOOD SPECIMENOrdering Facility: [facility] Address: [address] [place] [address] Performed By: #### 2 4321-2, ####[facility] LABORATORYCLIA [id number] [place] [address] [place] CO2 [Moles/Vol] 22 mmol/L Normal 22-30 [facility] Comment on above: Order Comment: Speci men Type: BLOOD SPECIMENOrdering Facility: [facility] Address: [address] [place] [address] Performed By: #### 2 432-2, ####[facility]ATORYCLIA [id number] [place] [address] [place] Creatinine [Mass/Vol] 0.49 mg/dL Low 0.58-0.96 [facility] Comment on above: Order Comment: Speci men Type: BLOOD SPECIMENOrdering Facility: [facility] Address: [address] [place] [address] Performed By: #### 2 4321-2, 54232-9 ####[facility] C[facility] SERVICESIA [id number] [place] [id number] [facility] [place] Creatinine and Glomerular filtration rate.predicted panel (S/P/Bld) 100 mL/min/1.73m??? Normal >=60 [facility] Comment on above: Order Comment: Vicky eladia Type: BLOOD SPECIMENOrdering Facility: [facility] Address: [address] [place] [address] Result Comment: Cecy mated Glomerular Filtration Rate [...] actual GFR. Performed By: #### 2 4321-2, 73111-8 ####[facility] LABORATORYIA [id number] [place] [id number] [place] Glucose [Mass/Vol] 117 mg/dL High 74-99 [facility] Comment on above: Order Comment: Vikramjey montilla Type: BLOOD SPECIMENOrdering Facility: [facility] Address: [address] [place] [address] Result Comment: The [place] [employer] (ADA) provides guidance for cutoff [...] Standards of Medical Care in Diabetes 2016, [place] [employer]. Diabetes Care. 2016.39(Suppl 1). Performed By: #### 2 432-2, ####[facility] LABORATORYCLIA [id number] [address] [place] Potassium [Moles/Vol] 4.6 mmol/L Normal 3.7-5.1 [facility] Comment on above: Order Comment: Speci men Type: BLOOD SPECIMENOrdering Facility: [facility] Address: [address] [place] [address] Performed By: #### 2 4321-2, ####[facility] LABORATORYCLIA [id number] [address] [place] Sodium [Moles/Vol] 136 mmol/L Normal 136-144 [facility] Comment on above: Order Comment: Speci men Type: BLOOD SPECIMENOrdering Facility: [facility] Address: [address] [place] [address] Performed By: #### 2 2, ####[facility] LABORATORYCLIA [id number] [address] [facility] Urea nitrogen [Mass/Vol] 18 mg/dL Normal 7-21 [facility] Comment on above: Order Comment: Speci men Type: BLOOD SPECIMENOrdering Facility: [facility] Address: [address] [place] [address] Performed By: #### 2 2, ####[facility] LABORATORYCLIA [id number] [address] [place] CBC panel Auto (Bld)on 01-13 Erythrocyte distribution width (RBC) [Ratio] 13.6 % Normal 11.5-15.0 [facility] Comment on above: Order Comment: Speci men Type: BLOOD SPECIMEN [facility] Address: [address] [place] [address] Performed By: #### 2 4321-2, 88934-9, 3016-3 #### [facility] CLIA [id number] [address] Hematocrit (Bld) [Volume fraction] 34.1 % Low 36.0-46.0 [facility] Comment on above: Order Comment: Speci men Type: BLOOD SPECIMEN [facility] Address: [address] [place] [address] Performed By: #### 2 4321-2, , 3 #### [facility] CLIA [id number] [address] [place] OF [facility] Hemoglobin (Bld) [Mass/Vol] 11.3 g/dL Low 11.5-15.5 [facility] Comment on above: Order Comment: Speci men Type: BLOOD SPECIMEN [facility]: [facility] Address: [address] [place] [address] Performed By: #### 2 4321-2, , 3 #### [facility] CLIA [id number] [address] [place] OF [facility] MCH (RBC) [Entitic mass] 32.9 pg Normal 26.0-34.0 [facility] Comment on above: Order Comment: Speci men Type: BLOOD SPECIMEN [facility] Address: [address] [place] [address] Performed By: #### 2 432-2, , 3 #### [facility] CLIA [id number] [address] [place] MCHC (RBC) [Mass/Vol] 33.1 g/dL Normal 30.5-36.0 [facility] Comment on above: Order Comment: Speci men Type: BLOOD SPECIMEN [facility] Address: [address] [place] [address] Performed By: #### 2 4321-2, , 3 #### [facility] CLIA [id number] [address] [facility] MCV (RBC) [Entitic vol] 99.4 fL Normal 80.0-100.0 [facility] Comment on above: Order Comment: Speci men Type: BLOOD SPECIMEN [facility] Address: [address] [place] [address] Performed By: #### 2 4321-2, , 3 #### [facility] CLIA [id number] [address] [place] Nucleated RBC (Bld) [#/Vol] 0.06 10*3/uL High <0.01 [facility] Comment on above: Order Comment: Speci men Type: BLOOD SPECIMEN [facility]: [facility] Address: [address] [place] [address] Performed By: #### 2 4321-2, , 3 #### [facility] CLIA [id number] [address] [place] [address] [place] Platelet mean volume (Bld) [Entitic vol] 8.5 fL Low 9.0-12.7 [facility] Comment on above: Order Comment: Speci men Type: BLOOD SPECIMEN [facility] Address: [address] [place] [address] Performed By: #### 2 4321-2, , 3 #### [facility] CLIA [id number] [address] [place] Platelets (Bld) [#/Vol] 266 10*3/uL Normal 150-400 [facility] Comment on above: Order Comment: Speci men Type: BLOOD SPECIMEN [facility] Address: [address] [place] [address] Performed By: #### 2 4321-2, , 3 #### [facility] CLIA [id number] [address] [place] RBC (Bld) [#/Vol] 3.43 10*6/uL Low 3.90-5.20 [facility] Comment on above: Order Comment: Speci men Type: BLOOD SPECIMEN [facility] Address: [address] [place] [address] Performed By: #### 2 4321-2, 38225-1, 6-3 #### [facility] CLIA [id number] 1 [place] [address] [place] [facility] WBC (Bld) [#/Vol] 9.23 10*3/uL Normal 3.70-11.00 [facility] Comment on above: Order Comment: Speci men Type: BLOOD SPECIMEN [facility] Address: [facility] [place] [address] Performed By: #### 2 4321-2, 65919-8, 6 #### [facility] CLIA [id number] [address] [place] [address] [facility] CNDSon 01-13-2025 CNDS HNO ID: [id number] Author: NILTON RODRIGUEZ DO Service: Hospital Medicine [...] call for appointment?: Yes Stew Oswald MD [phone] [place] [address] PCP Requested Referral Additional Provider to Provider [...] stable to discharge to her ECF. Wound 01/10/25212 Pressure Injury Heel Right (Active) Properties Placement [...] Present on Admission during this Encounter Wound 01/10/25213 Pressure Injury Heel Left (Active) Properties Placement Date 01/10/25 Placement Time 213 Location Heel Present on Original Admission Yes Primary Wound Type Pressure In (more content not included)... Normal [facility] Magnesium SerPl-mCncon 01-13 Magnesium [Mass/Vol] 1.7 mg/dL Normal 1.7-2.3 [facility] Comment on above: Order Comment: Speci men Type: BLOOD SPECIMENOrdering Facility: [facility] Address: [address] [place] [address] Performed By: #### 2 4321-2, ####[facility]ORATORYCLIA [id number] [place] [address] [place] Basic metabolic 2000 panelon 01-12-2025 Anion gap [Moles/Vol] 12 mmol/L Normal 8-15 [facility] Comment on above: Order Comment: Speci men Type: BLOOD SPECIMENOrdering Facility: [facility] Address: [address] [place] [address] Performed By: #### 2 4321-2, ####[facility] LABORATORYCLIA [id number] [place] [address] [place] Calcium [Mass/Vol] 9.2 mg/dL Normal 8.5-10.2 [facility] Comment on above: Order Comment: Speci men Type: BLOOD SPECIMENOrdering Facility: [facility] Address: [address] [place] [address] Performed By: #### 2 432-2, ####[facility] LABORATORYCLIA [id number] [address] OF [facility] Chloride [Moles/Vol] 104 mmol/L Normal 98-107 [facility] Comment on above: Order Comment: Speci men Type: BLOOD SPECIMENOrdering Facility: [facility] Address: [address] [place] [address] Performed By: #### 2 4321-2, ####[facility] LABORATORYCLIA [id number] [place] [address] [facility] CO2 [Moles/Vol] 20 mmol/L Low 22-30 [facility] Comment on above: Order Comment: Speci men Type: BLOOD SPECIMENOrdering Facility: [facility] Address: [address] [place] [address] Performed By: #### 2 4321-2, ####[facility] LABORATORYCLIA [id number] [address] Creatinine [Mass/Vol] 0.50 mg/dL Low 0.58-0.96 [facility] Comment on above: Order Comment: Speci men Type: BLOOD SPECIMENOrdering Facility: [facility] Address: [address] [place] [address] Performed By: #### 2 432-2, ####[facility] LABORATORYCLIA [id number] [address] Creatinine and Glomerular filtration rate.predicted panel (S/P/Bld) 99 mL/min/1.73m??? Normal >=60 [facility] Comment on above: Order Comment: Speci men Type: BLOOD SPECIMENOrdering Facility: [facility] Address: [address] [place] [address] Result Comment: Cecy mated Glomerular Filtration Rate [...] reflect actual GFR. Performed By: #### 2 432-, ####[facility] C[facility] SERVICESIA [id number] [place] [address] [place] Glucose [Mass/Vol] 106 mg/dL High 74-99 [facility] Comment on above: Order Comment: Vicky montilla Type: BLOOD SPECIMENOrdering Facility: [facility] Address: [address] [place] [address] Result Comment: The [place] Diabetes [employer] (ADA) provides guidance for cutoff [...] Standards of Medical Care in Diabetes 2016, [place] [employer]. Diabetes Care. 2016.39(Suppl 1). Performed By: #### 2 432-, ####[facility] LABORATORYCLIA [id number] [place] [address] [place] Potassium [Moles/Vol] 4.8 mmol/L Normal 3.7-5.1 [facility] Comment on above: Order Comment: Vicky montilla Type: BLOOD SPECIMENOrdering Facility: [facility] Address: [address] [place] [address] Performed By: #### 2 432-, ####[facility] LABORATORYCLIA [id number] [place] [address] [place] Sodium [Moles/Vol] 136 mmol/L Normal 136-144 [facility] Comment on above: Order Comment: Vicky montilla Type: BLOOD SPECIMENOrdering Facility: [facility] Address: [address] [place] [id number] Performed By: #### 2 4320-2, ####[facility]ORATORYCLIA [id number] [place], [place] [id number] [place] [address] [facility] Urea nitrogen [Mass/Vol] 15 mg/dL Normal 7-21 [facility] Comment on above: Order Comment: Speci men Type: BLOOD SPECIMENOrdering Facility: [facility] Address: [address] [place] [address] Performed By: #### 2 4320-2, ####[facility] LABORATORYCLIA [id number] [address] [place] CBC panel Auto (Bld)on 01-12 Erythrocyte distribution width (RBC) [Ratio] 13.7 % Normal 11.5-15.0 [facility] Comment on above: Order Comment: Speci men Type: BLOOD SPECIMEN [facility] Address: [address] [place] [address] Performed By: #### 2 4320-2, , 3015-3 #### [facility] CLIA [id number] [address] [place] Hematocrit (Bld) [Volume fraction] 36.4 % Normal 36.0-46.0 [facility] Comment on above: Order Comment: Speci men Type: BLOOD SPECIMEN [facility] Address: [address] [place] [address] Performed By: #### 2 4320-2, , 3015-3 #### [facility] CLIA [id number] [address] OF [place] Hemoglobin (Bld) [Mass/Vol] 11.8 g/dL Normal 11.5-15.5 [facility] Comment on above: Order Comment: Speci men Type: BLOOD SPECIMEN [facility] Address: [address] [place] [address] Performed By: #### 2 4321-2, , 6-3 #### [facility] CLIA [id number] [address] MCH (RBC) [Entitic mass] 33.1 pg Normal 26.0-34.0 [facility] Comment on above: Order Comment: Speci men Type: BLOOD SPECIMEN [facility] Address: [address] [place] [address] Performed By: #### 2 4321-2, , 3 #### [facility] CLIA [id number] [address] MCHC (RBC) [Mass/Vol] 32.4 g/dL Normal 30.5-36.0 [facility] Comment on above: Order Comment: Speci men Type: BLOOD SPECIMEN [facility] Address: [address] [place] [address] Performed By: #### 2 4321-2, , 3 #### [facility] CLIA [id number] [address] [place] [address] MCV (RBC) [Entitic vol] 102.0 fL High 80.0-100.0 [facility] Comment on above: Order Comment: Speci men Type: BLOOD SPECIMEN [facility] Address: [address] [place] [address] Performed By: #### 2 4321-2, , 3 #### [facility] CLIA [id number] [address] Nucleated RBC (Bld) [#/Vol] 10*3/uL Normal <0.01 [facility] Comment on above: Order Comment: Speci men Type: BLOOD SPECIMEN [facility] Address: [address] [place] [address] Performed By: #### 2 4321-2, , 3 #### [facility] CLIA [id number] [address] [facility] Platelet mean volume (Bld) [Entitic vol] 8.4 fL Low 9.0-12.7 [facility] Comment on above: Order Comment: Speci men Type: BLOOD SPECIMEN [facility] Address: [address] [place] [address] Performed By: #### 2 4321-2, 58865-5, 3015-3 #### [facility] CLIA [id number] [address] Platelets (Bld) [#/Vol] 242 10*3/uL Normal 150-400 [facility] Comment on above: Order Comment: Speci men Type: BLOOD SPECIMEN [facility] Address: [address] [place] [address] Performed By: #### 2 4321-2, , 3 #### [facility] CLIA [id number] [address] RBC (Bld) [#/Vol] 3.57 10*6/uL Low 3.90-5.20 [facility] Comment on above: Order Comment: Speci men Type: BLOOD SPECIMEN [facility] Address: [address] [place] [address] Performed By: #### 2 4321-2, , 3 #### [facility] CLIA [id number] [address] WBC (Bld) [#/Vol] 9.56 10*3/uL Normal 3.70-11.00 [facility] Comment on above: Order Comment: Speci men Type: BLOOD SPECIMEN [facility] Address: [address] [place] [address] Performed By: #### 2 4321-2, , 3 #### [facility] CLIA [id number] [address] CONSULT PROGon 01-12-2025 CONSULT PROG HNO ID: [id number] Author: PATY GLASGOW APRN.CHAIR SPRING ASSEMBLER Service: Neurology General Author Type: Nurse Practitioner Type: Consult Progress Note Filed: 01/12/2025 10:29 Note Text: NEUROLOGY CONSULT PROGRESS NOTE SERVICE DATE: 01/12/2025 SERVICE TIME: 1005 Current Attending Provider: Nilton Rodriguez DO Subjective Interval History: Patient resting. TASH. Testing, diagnosis, medications reviewed with patient. All [...] fluctuating confusion and possible neglect on exam. itravel (limited info) shows that Keppra started on [...] the remainder of this admission. Please page [phone]# if further questions or issues arise. Discharge instructions updated SIGNATURE: Paty Glasgow APRN.CNP PATIENT NAME: Elba Diaz DATE: January 12, 2025 TIME: 10:18 AM Discussed with: patient Communicated with primary team I spent a total of 25 minutes on the date of the service which included preparing to see the patient, [id number] patient care, completing clinical documentation, obtaining and/or reviewing separately obtained history, performing a medically appropriate examination, counseling and educating the patient/family/caregive r, communicating results to the patient/family/caregive r, and care coordination. Normal [facility] CONSULT PROG HNO ID: [id number] Author: SHELLY POLK RN Service: Wound/Ostomy Author [...] Irritant Contact Moisture Sacrum Routine Active Nadine Pal APRN.CHAIR SPRING ASSEMBLER - Reason:: Xeroform to sacrum - Reason:: [...] 1 Site Assessment Non-blanchable erythema Willow-Wound Assessment Mackay Shape linear Wound Length (cm) 2.4 cm Wound Width (cm) 0.4 cm Wound Surface Area (cm2) 0.96 cm2 Wound Depth (cm) 0 cm Wound Volume (cm3) 0 cm3 Drainage Amount None Odor None Treatments Cleansed Dressing Foam- Adhesive Dressing Status Clean;Dry;Intact No associated orders. Wound 01/10/25 Irritant Contact Moisture Breast Left;Lower (Active) Assessments 01/12/2025 9:49 AM Wound Image Site Assessment Mackay Willow-Wound Assessment Moist Shape linear Closure None Drainage Amount None Odor None Treatments Cleansed;Open to Air Active Orders Date Order Priority Status Authorizing Provider 01/12/25 1437 miconazole 2 % 1 application topical powder Active BlasiNadine fofana APRN.CHAIR SPRING ASSEMBLER Wound 01/10/25 022 Irritant Contact Moisture Groin (Active) Assessments 01/12/2025 9:49 AM Wound Image Site Assessment Mackay Willow-Wound Assessment Moist Shape linear Drainage Amount None Odor None Treatments Cleansed;Open to Air Active Orders Date Order Priority Status Authorizing Provider 01/12/25 1437 miconazole 2 % 1 application topical powder Active Blasiole, Nadine N, SAIL FINISHER HAND.CHAIR SPRING ASSEMBLER Barriers to Healing: Age, Body habitus, Comorbid [...] found under the Scanned Documents tab on itravel. The purpose of the photo(s) is to optimize the patient's medical care and allow a visual aid to their wound evaluation and progress. Thank you for including me in the care of this patient. (more content not included)... Normal [facility] Magnesium SerPl-mCncon 01-12 Magnesium [Mass/Vol] 1.9 mg/dL Normal 1.7-2.3 [facility] Comment on above: Order Comment: Speci men Type: BLOOD SPECIMEN [facility] Address: [address] [place] [address] Performed By: #### 3 0471-7 #### [facility] CLIA [id number] [address] [place] [address] OF [place] THERAPY NTon 01-12-2025 THERAPY NT HNO ID: [id number] Author: YEE TRIPLETT, CCC-HEALTH CARE FACILITY ADMINISTRATOR Service: Speech/Swallow Author Type: Speech Language Pathologist Type: Therapy (PT/OT/Speech/Resp) Filed: 01/12/2025 08:48 Note Text: Speech Therapy Clinical Swallow Evaluation SERVICE DATE: 01/12/2025 SERVICE TIME: 0815 to 0830 ROOM: [place] [address] IMPRESSION Swallow Deficits Identified / Suspected: Oropharyngeal dysphagia Speech Rehab Potential: Fair RECOMMENDATIONS Diet Recommendations Pureed IDDSI Level 4 Mildly Thick Liquids IDDSI Level 2 (Gardena Thick) Medications crushed in puree (pudding/applesauce) Swallow [...] Justification for Recommended Discharge Disposition: Continued skilled HEALTH CARE FACILITY ADMINISTRATOR care recommended after hospital discharge for:, dysphagia requiring frequent assessment and diet modification CURRENT HOSPITAL COURSE Admitted from [facility], 323: MRI Brain- No acute intracranial process. Chronic [...] 5, Mildly Thick Liquids IDDSI Level 2 (Gardena Thick), Medications crushed in puree (pudding/applesauce) SUBJECTIVE Drowsy but tries to participate, agrees to testing THERAPY DIAGNOSIS Dysphagia, unspecified TREATMENT INTERVENTIONS Clinical Swallow Evaluation (03317) Skilled Treatment Time (minutes): 15 $ Clinical Swallow Evaluation (51051) Billed Units: 1 unit TRAINING AND EDUCATION [...] 5, Mildly Thick Liquids IDDSI Level 2 (Gardena Thick) Current Level Of Communication: Verbal Current [...] During Assessment: Upright In Bed Feeding Method: HEALTH CARE FACILITY ADMINISTRATOR Fed Patient Consistencies Presented: Mildly Thick Liquids IDDSI Level 2 (Gardena Thick), Thin Liquids IDDSI Level 0, Pureed [...] Study: (patient reports choking on thins at skilled nursing) Patient coughing and choking on thins Patient reports coughing on thins at [facility] and now needing nectars Patient did not cough with nectars or puree Patient with slow chewing with minced and moist, needed cues to chew, holding (more content not included)... Normal [facility] ALLIED HEALTHon 01-11-2025 ALLIED HEALTH HNO ID: [id number] Author: KRISTIAN CHESTER RT(R) Service: ? Author [...] PATIENT PRESENTS WITH AN IMPLANTABLE OR ATTACHED BEDSPREAD FOLDER: No RADIOLOGY DEPARTMENT: MR; Exam(s) Completed: Head: Routine Brain PERIPHERAL IV DATA: Inpatient: see LDA documentation SIGNED BY: Kristian Chester RT(R) January 11, 2025 4:12 PM Normal [facility] Basic metabolic 2000 panelon 01-11-2025 Anion gap [Moles/Vol] 13 mmol/L Normal 8-15 [facility] Comment on above: Order Comment: Speci men Type: BLOOD SPECIMEN [facility] Address: [address] [place] [address] Performed By: #### 3 0471-7 #### [facility] CLIA [id number] [address] [place] [address] [place] Calcium [Mass/Vol] 8.9 mg/dL Normal 8.5-10.2 [facility] Comment on above: Order Comment: Speci men Type: BLOOD SPECIMEN [facility] Address: [address] [place] [address] Performed By: #### 3 0471-7 #### [facility] CLIA [id number] [address] [place] [address] [place] Chloride [Moles/Vol] 100 mmol/L Normal 98-107 [facility] Comment on above: Order Comment: Speci men Type: BLOOD SPECIMEN [facility] Address: [address] [place] [address] Performed By: #### 3 0471-7 #### [facility] CLIA [id number] [address] [place] [address] [place] CO2 [Moles/Vol] 18 mmol/L Low 22-30 [facility] Comment on above: Order Comment: Speci men Type: BLOOD SPECIMEN [facility] Address: [address] [place] [address] Performed By: #### 3 0471-7 #### [facility] CLIA [id number] [address] [place] [address] [place] Creatinine [Mass/Vol] 0.45 mg/dL Low 0.58-0.96 [facility] Comment on above: Order Comment: Vicky montilla Type: BLOOD SPECIMEN [facility] Address: [address] [place] [address] Performed By: #### 3 0471-7 #### [facility] CLIA [id number] [address] [place] [address] [place] Creatinine and Glomerular filtration rate.predicted panel (S/P/Bld) 102 mL/min/1.73m??? Normal >=60 [facility] Comment on above: Order Comment: Vicky montilla Type: BLOOD SPECIMEN [facility] Address: [address] [place] [address] Result Comment: Cecy mated Glomerular Filtration Rate [...] GFR. Performed By: #### 3 0471-7 #### [facility] CLIA [id number] [address] [place] [address] [place] Glucose [Mass/Vol] 91 mg/dL Normal 74-99 [facility] Comment on above: Order Comment: Vicky montilla Type: BLOOD SPECIMEN [facility] Address: [address] [place] [address] Result Comment: The [place] Diabetes Association (ADA) provides guidance for cutoff [...] Standards of Medical Care in Diabetes 2016, [place] [employer]. Diabetes Care. 2016.39(Suppl 1). Performed By: #### 3 0471-7 #### [facility] CLIA [id number] [address] [place] [address] [place] Potassium [Moles/Vol] 4.3 mmol/L Normal 3.7-5.1 [facility] Comment on above: Order Comment: Vikrami men Type: BLOOD SPECIMEN [facility] Address: [address] [place] [address] Performed By: #### 3 0471-7 #### [facility] CLIA [id number] [address] [place] [address] [place] Sodium [Moles/Vol] 131 mmol/L Low 136-144 [facility] Comment on above: Order Comment: Vicky montilla Type: BLOOD SPECIMEN [facility] Address: [address] [place] [address] Performed By: #### 3 0471-7 #### [facility] CLIA [id number] [address] [place] [address] [place] Urea nitrogen [Mass/Vol] 15 mg/dL Normal 7-21 [facility] Comment on above: Order Comment: Speci men Type: BLOOD SPECIMEN [facility] Address: [address] [place] [address] Performed By: #### 3 0471-7 #### [facility] CLIA [id number] [address] [place] [address] [place] CBC panel Auto (Bld)on 01-11 Erythrocyte distribution width (RBC) [Ratio] 13.2 % Normal 11.5-15.0 [facility] Comment on above: Order Comment: Speci men Type: BLOOD SPECIMEN [facility] Facility: [facility] Address: [address] [place] [address] Performed By: #### 2 4321-2, , 3015-12 #### [facility] CLIA [id number] [address] [facility] Hematocrit (Bld) [Volume fraction] 36.6 % Normal 36.0-46.0 [facility] Comment on above: Order Comment: Speci men Type: BLOOD SPECIMEN [facility] Facility[facility] Address: [address] [place] [address] Performed By: #### 2 4321-2, , 3015-12 #### [facility] CLIA [id number] [address] STATES OF [facility] Hemoglobin (Bld) [Mass/Vol] 12.0 g/dL Normal 11.5-15.5 [facility] Comment on above: Order Comment: Speci men Type: BLOOD SPECIMEN [facility] Address: [address] [place] [address] Performed By: #### 2 4321-2, , 3015-12 #### [facility] CLIA [id number] [address] STATES OF [facility] MCH (RBC) [Entitic mass] 32.6 pg Normal 26.0-34.0 [facility] Comment on above: Order Comment: Speci men Type: BLOOD SPECIMEN [facility] Facility: [facility] Address: [address] [place] [address] Performed By: #### 2 4321-2, , 3 #### [facility] CLIA [id number] [address] STATES OF [facility] MCHC (RBC) [Mass/Vol] 32.8 g/dL Normal 30.5-36.0 [facility] Comment on above: Order Comment: Speci men Type: BLOOD SPECIMEN [facility] Facility: [facility] Address: [address] [place] [address] Performed By: #### 2 4321-2, , 3 #### [facility] CLIA [id number] [address] MCV (RBC) [Entitic vol] 99.5 fL Normal 80.0-100.0 [facility] Comment on above: Order Comment: Speci men Type: BLOOD SPECIMEN [facility] Facility: [facility] Address: [address] [place] [address] Performed By: #### 2 4321-2, , 3015-12 #### [facility] CLIA [id number] [address] Nucleated RBC (Bld) [#/Vol] 0.02 10*3/uL High <0.01 [facility] Comment on above: Order Comment: Speci men Type: BLOOD SPECIMEN [facility] Facility: [facility] Address: [address] [place] [address] Performed By: #### 2 1-2, , 3015-12 #### [facility] CLIA [id number] [address] Platelet mean volume (Bld) [Entitic vol] 8.5 fL Low 9.0-12.7 [facility] Comment on above: Order Comment: Speci men Type: BLOOD SPECIMEN [facility] Facility: [facility] Address: [address] [place] [address] Performed By: #### 2 4321-2, , 3 #### [facility] CLIA [id number] [address] Platelets (Bld) [#/Vol] 227 10*3/uL Normal 150-400 [facility] Comment on above: Order Comment: Speci men Type: BLOOD SPECIMEN [facility]ing Facility: [facility] Address: [address] [place] [address] Performed By: #### 2 4321-2, , 3 #### [facility] CLIA [id number] [address] [place] [address] [place] RBC (Bld) [#/Vol] 3.68 10*6/uL Low 3.90-5.20 [facility] Comment on above: Order Comment: Speci men Type: BLOOD SPECIMEN [facility]ing Facility: [facility] Address: [address] [place] [address] Performed By: #### 2 4321-2, , 3015-12 #### [facility] CLIA [id number] [address] [place] [id number] [facility] WBC (Bld) [#/Vol] 8.76 10*3/uL Normal 3.70-11.00 [facility] Comment on above: Order Comment: Speci men Type: BLOOD SPECIMEN [facility]ing Facility: [facility] Address: [address] [place] [address] Performed By: #### 2 4321-2, , 3015-12 #### [facility] CLIA [id number] [address] [place] [id number] [facility] CONSULTon 01-11-2025 CONSULT HNO ID: [id number] Author: JAYDON SIMEON MD Service: Neurology General [...] plegia Sensation: Intact to light touch Coordination: Ysjacz-ln-lilo on R intact DATA: LABS: Reviewed in [facility] WBC (k/uL) Date Value 01/11/2025 8.76 06/08/2020 [...] (more content not included)... Normal [facility] MRI BRAIN WO IVCONon 025 MRI BRAIN WO IVCON * * *Final Report* * * DATE OF EXAM: Jan 11 2025 4:24PM [facility] 0294 - MRI BRAIN WO IVCON / [...] intracranial process. Chronic changes and remote infarcts. Lamp Tester And Inspector: ALEXANDRO Transcribe Date/Time: Jan 11 2025 5:04P Dictated by : DELBERT HYATT MD This examination was interpreted and the report reviewed and electronically signed by: DELBERT HYATT MD on Jan 11 2025 5:50PM EST [id number] Normal [facility] Magnesium SerPl-mCncon 01-11 Magnesium [Mass/Vol] 2.3 mg/dL Normal 1.7-2.3 [facility] Comment on above: Order Comment: Specjey montilla Type: BLOOD SPECIMEN [facility]ing Facility: [facility] Address: [address] [place] [address] Performed By: #### 3 0471-7 #### [facility] CLIA [id number] [address] [place] [address] [place] T4 Free SerPl-mCncon 025 Free T4 [Mass/Vol] 1.1 ng/dL Normal 0.9-1.7 [facility] Comment on above: Order Comment: Vicky montilla Type: BLOOD SPECIMEN [facility] Address: [address] [place] [address] Performed By: #### 3 0471-7 #### [facility] CLIA [id number] [address] [place] [address] [place] Basic metabolic 2000 panelon 01-10-2025 Anion gap [Moles/Vol] 9 mmol/L Normal 8-15 [facility] Comment on above: Order Comment: Specjey montilla Type: BLOOD SPECIMEN Ordering Facility: [facility] Address: [address] [place] [address] Performed By: #### 2 4321-2, 33869-5, 3016-3 #### [facility] CLIA [id number] [address] [place] [address] [place] Calcium [Mass/Vol] 8.2 mg/dL Low 8.5-10.2 [facility] Comment on above: Order Comment: Speci men Type: BLOOD SPECIMEN Ordering Facility: [facility] Address: [address] [place] [address] Performed By: #### 2 4321-2, , 3 #### [facility] CLIA [id number] [address] [place] [address] [place] Chloride [Moles/Vol] 104 mmol/L Normal 98-107 [facility] Comment on above: Order Comment: Speci men Type: BLOOD SPECIMEN Ordering Facility: [facility] Address: [address] [place] [address] Performed By: #### 2 4321-2, , 3 #### [facility] CLIA [id number] [address] [place] CO2 [Moles/Vol] 22 mmol/L Normal 22-30 [facility] Comment on above: Order Comment: Speci men Type: BLOOD SPECIMEN Ordering Facility: [facility] Address: [address] [place] [address] Performed By: #### 2 4321-2, , 3 #### [facility] CLIA [id number] [address] [place] Creatinine [Mass/Vol] 0.32 mg/dL Low 0.58-0.96 [facility] Comment on above: Order Comment: Speci men Type: BLOOD SPECIMEN Ordering Facility: [facility] Address: [address] [place] [address] Performed By: #### 2 4321-2, , 3 #### [facility] CLIA [id number] [address] Creatinine and Glomerular filtration rate.predicted panel (S/P/Bld) 110 mL/min/1.73m??? Normal >=60 [facility] Comment on above: Order Comment: Speci men Type: BLOOD SPECIMEN Ordering Facility: [facility] Address: [address] [place] [address] Result Comment: Cecy mated Glomerular Filtration Rate [...] By: #### 2 4321-2, , 3015-3 #### [facility] CLIA [id number] [address] [place] [address] [place] Glucose [Mass/Vol] 100 mg/dL High 74-99 [facility] Comment on above: Order Comment: Vicky montilla Type: BLOOD SPECIMEN Ordering Facility: [facility] Address: [address] [place] [address] Result Comment: The [place] [employer] (ADA) provides guidance for cutoff [...] Standards of Medical Care in Diabetes 2016, [place] [employer]. Diabetes Care. 2016.39(Suppl 1). Performed By: #### 2 4321-2, , 3 #### [facility] CLIA [id number] [address] [place] [address] [place] Potassium [Moles/Vol] 3.3 mmol/L Low 3.7-5.1 [facility] Comment on above: Order Comment: Vicky montilla Type: BLOOD SPECIMEN Ordering Facility: [facility] Address: [address] [place] [address] Performed By: #### 2 4321-2, , 3015-3 #### [facility] CLIA [id number] [address] [place] [address] [place] Sodium [Moles/Vol] 135 mmol/L Low 136-144 [facility] Comment on above: Order Comment: Speci men Type: BLOOD SPECIMEN Ordering Facility: [facility] Address: [address] [place] [address] Performed By: #### 2 4321-2, 75311-1, 6-3 #### [facility] CLIA [id number] [address] [place] [address] [place] Urea nitrogen [Mass/Vol] 21 mg/dL Normal 7-21 [facility] Comment on above: Order Comment: Speci men Type: BLOOD SPECIMEN Ordering Facility: [facility] Address: [address] [place] [address] Performed By: #### 2 4321-2, 32364-0, 6-3 #### [facility] CLIA [id number] [address] [place] [address] [place] CBC panel Auto (Bld)on 01-10 Erythrocyte distribution width (RBC) [Ratio] 12.7 % Normal 11.5-15.0 [facility] Comment on above: Order Comment: Speci men Type: BLOOD SPECIMEN Ordering Facility: [facility] Address: [address] [place] [address] Performed By: #### 3 0471-7 #### [facility] CLIA [id number] [address] [place] [address] [place] Hematocrit (Bld) [Volume fraction] 32.2 % Low 36.0-46.0 [facility] Comment on above: Order Comment: Speci men Type: BLOOD SPECIMEN Ordering Facility: [facility] Address: [address] [place] [address] Performed By: #### 3 0471-7 #### [facility] CLIA [id number] [address] [place] [address] [place] Hemoglobin (Bld) [Mass/Vol] 10.7 g/dL Low 11.5-15.5 [facility] Comment on above: Order Comment: Speci men Type: BLOOD SPECIMEN Ordering Facility: [facility] Address: [address] [place] [address] Performed By: #### 3 0471-7 #### [facility] CLIA [id number] [address] [place] [address] [place] MCH (RBC) [Entitic mass] 32.7 pg Normal 26.0-34.0 [facility] Comment on above: Order Comment: Speci men Type: BLOOD SPECIMEN Ordering Facility: [facility] Address: [address] [place] [address] Performed By: #### 3 0471-7 #### [facility] CLIA [id number] [address] [place] [address] [place] MCHC (RBC) [Mass/Vol] 33.2 g/dL Normal 30.5-36.0 [facility] Comment on above: Order Comment: Speci men Type: BLOOD SPECIMEN Ordering Facility: [facility] Address: [address] [place] [address] Performed By: #### 3 0471-7 #### [facility] CLIA [id number] [address] [place] [address] [place] MCV (RBC) [Entitic vol] 98.5 fL Normal 80.0-100.0 [facility] Comment on above: Order Comment: Speci men Type: BLOOD SPECIMEN Ordering Facility: [facility] Address: [address] [place] [address] Performed By: #### 3 0471-7 #### [facility] CLIA [id number] [address] [place] [address] [place] Nucleated RBC (Bld) [#/Vol] 10*3/uL Normal <0.01 [facility] Comment on above: Order Comment: Speci men Type: BLOOD SPECIMEN Ordering Facility: [facility] Address: [address] [place] [address] Performed By: #### 3 0471-7 #### [facility] CLIA [id number] [address] [place] [address] [place] Platelet mean volume (Bld) [Entitic vol] 8.3 fL Low 9.0-12.7 [facility] Comment on above: Order Comment: Speci men Type: BLOOD SPECIMEN Ordering Facility: [facility] Address: [address] [place] [address] Performed By: #### 3 0471-7 #### [facility] CLIA [id number] [address] [place], [place] [address] [place] Platelets (Bld) [#/Vol] 168 10*3/uL Normal 150-400 [facility] Comment on above: Order Comment: Speci men Type: BLOOD SPECIMEN Ordering Facility: [facility] Address: [address] [place] [address] Performed By: #### 3 0471-7 #### [facility] CLIA [id number] [address] [place] [address] [place] RBC (Bld) [#/Vol] 3.27 10*6/uL Low 3.90-5.20 [facility] Comment on above: Order Comment: Speci men Type: BLOOD SPECIMEN Ordering Facility: [facility] Address: [address] [place] [address] Performed By: #### 3 0471-7 #### [facility] CLIA [id number] [address] [place] [address] [place] WBC (Bld) [#/Vol] 11.16 10*3/uL High 3.70-11.00 [facility] Comment on above: Order Comment: Speci men Type: BLOOD SPECIMEN Ordering Facility: [facility] Address: [address] [place] [address] Performed By: #### 3 0471-7 #### [facility] CLIA [id number] [address] [place] [address] [address] [facility] ED NOTEon 01-10-2025 ED NOTE HNO ID: [id number] Author: CHASIDY BOUDREAUX, MONAE Service: Emergency Medicine Author Type: Registered Nurse Type: ED Notes Filed: 01/10/2025 00:42 Note Text: 7100 receiving nurse Stephanie called for verbal report. Ok'd for pt. Normal [facility] Magnesium SerPl-mCncon 01-10 Magnesium [Mass/Vol] 1.6 mg/dL Low 1.7-2.3 [facility] Comment on above: Order Comment: Speci men Type: BLOOD SPECIMEN Ordering Facility: [facility] Address: [address] [place] [address] Performed By: #### 2 4321-2, , 3 #### [facility] CLIA [id number] [address] [facility] TSH SerPl-aCncon 01-10-2025 TSH Qn 0.015 m[IU]/L Low 0.270-4.200 [facility] Comment on above: Order Comment: Speci men Type: BLOOD SPECIMEN Ordering Facility: [facility] Address: [address] [place] [address] Performed By: #### 2 4321-2, , 3 #### [facility] CLIA [id number] [address] [facility] Valproate SerPl-mCncon 01-10 Valproate [Mass/Vol] ug/mL Low 50.0-100.0 [facility] Comment on above: Order Comment: Speci men Type: BLOOD SPECIMEN Ordering Facility: [facility] Address: [address] [place] [address] Result Comment: Refe rence ranges and high/low indicator flags are provided as general guidelines only. The treating physician must determine appropriate target levels/dosing based on the specific clinical situation. Performed By: #### 2 4321-2, , 3 #### [facility] CLIA [id number] [address] [place] [address] [place] levETIRAcetam SerPl-mCncon 0 01-10-2025 levETIRAcetam [Mass/Vol] 12.7 ug/mL Normal 12.0-46.0 [facility] Comment on above: Order Comment: Speci men Type: BLOOD SPECIMEN Ordering Facility: [facility] Address: [address] [place] [address] Result Comment: This test is not suitable [...] and its performance characteristics determined by the [facility] Department of Pathology and Laboratory Medicine. It has not been cleared or approved by the FDA. The [facility] Department of Pathology and Laboratory Medicine is regulated under CLIA as qualified to perform high-complexity testing. This test is used for clinical purposes. It should not be regarded as investigational or for research. Performed By: #### 3 0471-7 #### [facility] CLIA [id number] [address] [place] [address] [place] [address] [place] ALLIED HEALTHon 01-09-2025 ALLIED HEALTH HNO ID: [id number] Author: ELMER PEGUERO RT(R) Service: Radiology Author [...] PATIENT PRESENTS WITH AN IMPLANTABLE OR ATTACHED BEDSPREAD FOLDER: No RADIOLOGY DEPARTMENT: CT; Exam(s) Completed: Brain PERIPHERAL IV DATA: Not applicable SIGNED BY: RT Toña(R) January 09, 2025 7:55 PM Normal [facility] CBC W Auto Differential pane l (Bld)on 01-09-2025 Basophils (Bld) [#/Vol] 0.07 10*3/uL Normal <0.11 [facility] Comment on above: Order Comment: Speci men Type: BLOOD SPECIMEN Ordering Facility: [facility] Address: [address] [place] [address] Performed By: #### 3 0471-7 #### [facility] CLIA [id number] [address] [place] [address] [place] Basophils/100 WBC (Bld) 0.7 % Normal [facility] Comment on above: Order Comment: Speci men Type: BLOOD SPECIMEN Ordering Facility: [facility] Address: [address] [place] [address] Performed By: #### 3 0471-7 #### [facility] CLIA [id number] [address] [place] [address] [place] Differential cell count method Nom (Bld) Auto Normal [facility] Comment on above: Order Comment: Speci men Type: BLOOD SPECIMEN Ordering Facility: [facility] Address: [address] [place] [address] Performed By: #### 3 0471-7 #### [facility] CLIA [id number] [address] [place] [address] [place] Eosinophils (Bld) [#/Vol] 0.09 10*3/uL Normal <0.46 [facility] Comment on above: Order Comment: Speci men Type: BLOOD SPECIMEN Ordering Facility: [facility] Address: [address] [place] [address] Performed By: #### 3 0471-7 #### [facility] CLIA [id number] [address] [place] [address] [place] Eosinophils/100 WBC (Bld) 0.9 % Normal [facility] Comment on above: Order Comment: Speci men Type: BLOOD SPECIMEN Ordering Facility: [facility] Address: [address] [place] [address] Performed By: #### 3 0471-7 #### [facility] CLIA [id number] [address] [place] [address] [place] Erythrocyte distribution width (RBC) [Ratio] 13.0 % Normal 11.5-15.0 [facility] Comment on above: Order Comment: Speci men Type: BLOOD SPECIMEN Ordering Facility: [facility] Address: [address] [place] [address] Performed By: #### 3 0471-7 #### [facility] CLIA [id number] [address] [place] [address] [place] Hematocrit (Bld) [Volume fraction] 36.8 % Normal 36.0-46.0 [facility] Comment on above: Order Comment: Speci men Type: BLOOD SPECIMEN Ordering Facility: [facility] Address: [address] [place] [address] Performed By: #### 3 0471-7 #### [facility] CLIA [id number] [address] [place] [address] [place] Hemoglobin (Bld) [Mass/Vol] 11.9 g/dL Normal 11.5-15.5 [facility] Comment on above: Order Comment: Speci men Type: BLOOD SPECIMEN Ordering Facility: [facility] Address: [address] [place] [address] Performed By: #### 3 0471-7 #### [facility] CLIA [id number] [address] [place] [address] [place] Immature granulocytes (Bld) [#/Vol] 0.08 10*3/uL Normal <0.10 [facility] Comment on above: Order Comment: Speci men Type: BLOOD SPECIMEN Ordering Facility: [facility] Address: [address] [place] [address] Performed By: #### 3 0471-7 #### [facility] CLIA [id number] [address] [place] [address] [place] Immature granulocytes/100 WBC (Bld) 0.8 % Normal [facility] Comment on above: Order Comment: Speci men Type: BLOOD SPECIMEN Ordering Facility: [facility] Address: [address] [place] [address] Performed By: #### 3 0471-7 #### [facility] CLIA [id number] [address] [place] [address] [place] Lymphocytes (Bld) [#/Vol] 1.96 10*3/uL Normal 1.00-4.00 [facility] Comment on above: Order Comment: Speci men Type: BLOOD SPECIMEN Ordering Facility: [facility] Address: [address] [place] [address] Performed By: #### 3 0471-7 #### [facility] CLIA [id number] [address] [place] [address] [place] Lymphocytes/100 WBC (Bld) 18.8 % Normal [facility] Comment on above: Order Comment: Speci men Type: BLOOD SPECIMEN Ordering Facility: [facility] Address: [address] [place] [address] Performed By: #### 3 0471-7 #### [facility] CLIA [id number] [address] [place] [address] [place] MCH (RBC) [Entitic mass] 32.6 pg Normal 26.0-34.0 [facility] Comment on above: Order Comment: Speci men Type: BLOOD SPECIMEN Ordering Facility: [facility] Address: [address] [place] [address] Performed By: #### 3 0471-7 #### [facility] CLIA [id number] [address] [place] [address] [place] MCHC (RBC) [Mass/Vol] 32.3 g/dL Normal 30.5-36.0 [facility] Comment on above: Order Comment: Speci men Type: BLOOD SPECIMEN Ordering Facility: [facility] Address: [address] [place] [address] Performed By: #### 3 0471-7 #### [facility] CLIA [id number] [address] [place] [address] [place] MCV (RBC) [Entitic vol] 100.8 fL High 80.0-100.0 [facility] Comment on above: Order Comment: Speci men Type: BLOOD SPECIMEN Ordering Facility: [facility] Address: [address] [place] [address] Performed By: #### 3 0471-7 #### [facility] CLIA [id number] [address] [place] [address] [place] Monocytes (Bld) [#/Vol] 0.89 10*3/uL High <0.87 [facility] Comment on above: Order Comment: Speci men Type: BLOOD SPECIMEN Ordering Facility: [facility] Address: [address] [place] [address] Performed By: #### 3 0471-7 #### [facility] CLIA [id number] [address] [place] [address] [place] Monocytes/100 WBC (Bld) 8.5 % Normal [facility] Comment on above: Order Comment: Speci men Type: BLOOD SPECIMEN Ordering Facility: [facility] Address: [address] [place] [address] Performed By: #### 3 0471-7 #### [facility] CLIA [id number] [address] [place] [address] [place] Neutrophils (Bld) [#/Vol] 7.35 10*3/uL Normal 1.45-7.50 [facility] Comment on above: Order Comment: Speci men Type: BLOOD SPECIMEN Ordering Facility: [facility] Address: [address] [place] [address] Performed By: #### 3 0471-7 #### [facility] CLIA [id number] [address] [place] [address] [place] Neutrophils/100 WBC (Bld) 70.3 % Normal [facility] Comment on above: Order Comment: Speci men Type: BLOOD SPECIMEN Ordering Facility: [facility] Address: [address] [place] [address] Performed By: #### 3 0471-7 #### [facility] CLIA [id number] [address] [place] [address] [place] Nucleated RBC (Bld) [#/Vol] 10*3/uL Normal <0.01 [facility] Comment on above: Order Comment: Speci men Type: BLOOD SPECIMEN Ordering Facility: [facility] Address: [address] [place] [address] Performed By: #### 3 0471-7 #### [facility] CLIA [id number] [address] [place] [address] [place] Nucleated RBC/100 WBC (Bld) [Ratio] 0.0 /100 WBC Normal [facility] Comment on above: Order Comment: Speci men Type: BLOOD SPECIMEN Ordering Facility: [facility] Address: [address] [place] [address] Performed By: #### 3 0471-7 #### [facility] CLIA [id number] [address] [place] [address] [place] Platelet mean volume (Bld) [Entitic vol] 8.5 fL Low 9.0-12.7 [facility] Comment on above: Order Comment: Speci men Type: BLOOD SPECIMEN Ordering Facility: [facility] Address: [address] [place] [address] Performed By: #### 3 0471-7 #### [facility] CLIA [id number] [address] [place] [address] [place] Platelets (Bld) [#/Vol] 223 10*3/uL Normal 150-400 [facility] Comment on above: Order Comment: Speci men Type: BLOOD SPECIMEN Ordering Facility: [facility] Address: [address] [place] [address] Performed By: #### 3 0471-7 #### [facility] CLIA [id number] [address] [place] [address] [place] RBC (Bld) [#/Vol] 3.65 10*6/uL Low 3.90-5.20 [facility] Comment on above: Order Comment: Speci men Type: BLOOD SPECIMEN Ordering Facility: [facility] Address: [address] [place] [address] Performed By: #### 3 0471-7 #### [facility] CLIA [id number] [address] [place] [address] [place] WBC (Bld) [#/Vol] 10.44 10*3/uL Normal 3.70-11.00 [facility] Comment on above: Order Comment: Speci men Type: BLOOD SPECIMEN Ordering Facility: [facility] Address: [address] [place] [address] Performed By: #### 3 0471-7 #### [facility] CLIA [id number] [address] [place] [address] [place] BRAIN WO IVCONon 01-10-20 CT BRAIN WO IVCON * * *Final Report* * * DATE OF EXAM: Jan 09 2025 7:58PM [facility] 0504 - CT BRAIN WO IVCON / [...] changes without evidence for acute intracranial abnormality. Lamp Tester And Inspector: ALEXANDRO Transcribe Date/Time: Jan 09 2025 7:59P Dictated by : HAMILTON LERMA MD This examination was interpreted and the report reviewed and electronically signed by: HAMILTON LERMA MD on Jan 09 2025 8:01PM EST [id number] Normal [facility] Comprehensive metabolic 2000 panelon 01-09-2025 Albumin [Mass/Vol] 3.1 g/dL Low 3.9-4.9 [facility] Comment on above: Order Comment: Vicky montilla Type: BLOOD SPECIMEN Ordering Facility: [facility] Address: [address] [place] [address] Performed By: #### 2 4321-2, 48038-5, 3016-3 #### [facility] CLIA [id number] [address] [place] [address] [place] ALP [Catalytic activity/Vol] 66 U/L Normal 34-123 [facility] Comment on above: Order Comment: Vicky montilla Type: BLOOD SPECIMEN Ordering Facility: [facility] Address: [address] [place] [address] Performed By: #### 2 4321-2, 91780-0, 6-3 #### [facility] CLIA [id number] [address] [place] With P-5'-P [Catalytic activity/Vol] 12 U/L Normal 7-38 [facility] [facility] Comment on above: Order Comment: Speci men Type: BLOOD SPECIMEN Ordering Facility: [facility] Address: [address] [place] [address] Performed By: #### 2 4321-2, , 3015-3 #### [facility] CLIA [id number] [address] Anion gap [Moles/Vol] 12 mmol/L Normal 8-15 [facility] Comment on above: Order Comment: Speci men Type: BLOOD SPECIMEN Ordering Facility: [facility] Address: [address] [place] [address] Performed By: #### 2 4321-2, , 3015-3 #### [facility] CLIA [id number] [address] AST With P-5'-P [Catalytic activity/Vol] 22 U/L Normal 13-35 [facility] Comment on above: Order Comment: Speci men Type: BLOOD SPECIMEN Ordering Facility: [facility] Address: [address] [place] [address] Performed By: #### 2 4321-2, , 3015-3 #### [facility] CLIA [id number] [address] [place] OF [facility] Bilirubin [Mass/Vol] mg/dL Low 0.2-1.3 [facility] Comment on above: Order Comment: Speci men Type: BLOOD SPECIMEN Ordering Facility: [facility] Address: [address] [place] [address] Performed By: #### 2 4321-2, , 6-3 #### [facility] CLIA [id number] [address] [place] Calcium [Mass/Vol] 9.0 mg/dL Normal 8.5-10.2 [facility] Comment on above: Order Comment: Speci men Type: BLOOD SPECIMEN Ordering Facility: [facility] Address: [address] [place] [address] Performed By: #### 2 4321-2, , 3 #### [facility] CLIA [id number] [address] [place] Chloride [Moles/Vol] 108 mmol/L High 98-107 [facility] Comment on above: Order Comment: Speci men Type: BLOOD SPECIMEN Ordering Facility: [facility] Address: [address] [place] [address] Performed By: #### 2 4321-2, , 3 #### [facility] CLIA [id number] [address] [place] [facility] CO2 [Moles/Vol] 21 mmol/L Low 22-30 [facility] Comment on above: Order Comment: Speci men Type: BLOOD SPECIMEN Ordering Facility: [facility] Address: [address] [place] [address] Performed By: #### 2 4321-2, , 3 #### [facility] CLIA [id number] [address] [facility] Creatinine [Mass/Vol] 0.40 mg/dL Low 0.58-0.96 [facility] Comment on above: Order Comment: Speci men Type: BLOOD SPECIMEN Ordering Facility: [facility] Address: [address] [place] [address] Performed By: #### 2 4321-2, , 3 #### [facility] CLIA [id number] [address] Creatinine and Glomerular filtration rate.predicted panel (S/P/Bld) 105 mL/min/1.73m??? Normal >=60 [facility] Comment on above: Order Comment: Speci men Type: BLOOD SPECIMEN Ordering Facility: [facility] Address: [address] [place] [address] Result Comment: Cecy mated Glomerular Filtration Rate [...] actual GFR. Performed By: #### 2 4321-2, 68838-7, 3015-3 #### [facility] CLIA [id number] 1 [place] [address] [place] Glucose [Mass/Vol] 96 mg/dL Normal 74-99 [facility] Comment on above: Order Comment: Vicky montilla Type: BLOOD SPECIMEN Ordering Facility: [facility] Address: [address] [place] [address] Result Comment: The [place] [employer] Association (ADA) provides guidance for cutoff [...] Standards of Medical Care in Diabetes 2016, [place] [employer]. Diabetes Care. 2016.39(Suppl 1). Performed By: #### 2 4321-2, , 3015-3 #### [facility] CLIA [id number] [address] [place] [address] [place] Potassium [Moles/Vol] 4.2 mmol/L Normal 3.7-5.1 [facility] Comment on above: Order Comment: Vicky montilla Type: BLOOD SPECIMEN Ordering Facility: [facility] Address: [address] [place] [place] [id number] Performed By: #### 2 4321-2, 96494-1, 3015-3 #### [facility] CLIA [id number] [address] [place] [address] [place] Protein [Mass/Vol] 5.8 g/dL Low 6.3-8.0 [facility] Comment on above: Order Comment: Speci men Type: BLOOD SPECIMEN Ordering Facility: [facility] Address: [address] [place] [address] Performed By: #### 2 4321-2, , 3015-3 #### [facility] CLIA [id number] [address] [place] [address] [place] Sodium [Moles/Vol] 141 mmol/L Normal 136-144 [facility] Comment on above: Order Comment: Speci men Type: BLOOD SPECIMEN Ordering Facility: [facility] Address: [address] [place] [address] Performed By: #### 2 4321-2, , 3015-3 #### [facility] CLIA [id number] [address] [place] Urea nitrogen [Mass/Vol] 25 mg/dL High 7-21 [facility] Comment on above: Order Comment: Speci men Type: BLOOD SPECIMEN Ordering Facility: [facility] Address: [address] [place] [address] Performed By: #### 2 4321-2, , 3015-3 #### [facility] CLIA [id number] [address] [place] ED NOTEon 01-09-2025 ED NOTE HNO ID: [id number] Author: CHASIDY BOUDREAUX RN Service: Emergency Medicine Author Type: Registered Nurse Type: ED Notes Filed: 01/09/2025 23:01 Note Text: Jose martínez updated on plan of care AND bed assignment [facility] ED NOTE HNO ID: [id number] Author: CHASIDY BOUDREAUX RN Service: Emergency Medicine Author Type: Registered Nurse Type: ED Notes Filed: 01/09/2025 19:28 Note Text: Ct called - message left. Normal [facility] ED NOTE HNO ID: [id number] Author: JOHN BLANCO, MONAE Service: ? Author Type: Registered Nurse Type: ED Notes Filed: 01/09/2025 16:23 Note Text: MD Chaney notified of automatic BP of 70s/40s and manual of 98/62 Normal [facility] ED NOTE HNO ID: [id number] Author: PAMELA BALLESTEROS Medic Service: ? Author Type: Sales Trader and Advertising Copy Writer Type: ED Notes Filed: 01/09/2025 12:29 Note Text: Bed: 43-ED Expected date: Expected time: Means of arrival: Comments: Mel 74yo AMS 10d Normal [facility] ED PROGRESS NOTE (PROVIDER)o n 01-09-2025 ED PROGRESS NOTE (PROVIDER) HNO ID: [id number] Author: CHRIS KIRKPATRICK MD Service: Emergency Medicine [...] SINUS RHYTHM Confirmed by PINO DONALDSON MD ([id number]) on 01/09/2025 4:36:11 PM EKG Impression NORMAL SINUS RHYTHM LOW VOLTAGE QRS BORDERLINE ECG WHEN COMPARED WITH ECG OF 14-Dec-2024 13:46, NO SIGNIFICANT CHANGE WAS FOUND Confirmed by PINO DONALDSON MD ([id number]) on 01/09/2025 2:57:29 PM Medical Decision Making SIGNATURE: Chris Kirkpatrick MD PATIENT NAME: Elba Diaz DATE: January 09, 2025 TIME: 5:32 PM PAGER/CONTACT #: - Normal [facility] ED PROV NOTEon 01-09-2025 ED PROV NOTE HNO ID: [id number] Author: GUTIERREZ SCHULTZ MD Service: Emergency Medicine Author Type: Physician Type: ED Provider Notes Filed: 03/14/2025 12:05 Note Text: ED Provider Note Patient Name: Elba Diaz : 1950 SERVICE DATE: 01/09/25 History Patient presents with: Altered Level Of Consciousness: Pt arrived via [place] [facility] from [facility] for c/o pt not acting right. Pt is awake and alert x3 with clear speech. Pt has hx CVA with left sided paralysis. Pt has chronic right knee pain. Patient presenting from [facility] in [place], with complaints of altered mental status. Patient [...] Rcere, L temp Colon polyp Endometriosis Epilepsy ([facility]) Fatigue Hemiparesis of left nondominant side as late effect of cerebral infarction ([facility]) 02/08/2021 Hypothyroid tsh> 150 off med Lung nodule Mild depression Polyneuropathy 07/2012 of legs by emg/nct Stroke ([facility]) 09/2019 right MCA PAST SURGICAL HISTORY Procedure [...] (more content not included)... Normal [facility] EKGon 01-09-2025 Electrocardiogram Ventricular Rate : 8 6 BPM QRS Duration : 54 ms Q-T Interval : 360 ms QTC Calculation(Bazett) : 430 ms Calculated R [place] : -16 degrees Calculated T [place] : 33 degrees ACCELERATED JUNCTIONAL RHYTHM NONSPECIFIC ST AND T WAVE ABNORMALITY ABNORMAL ECG WHEN COMPARED WITH ECG OF 09-Jan-2025 14:39, JUNCTIONAL RHYTHM HAS REPLACED SINUS RHYTHM Confirmed by PINO DONALDSON MD ([id number]) on 01/09/2025 4:36:11 PM NAME : ELBA DIAZ PID : [id number] : 1950 Gender : Female Race : ORD : Procedure Date : Jan 09 2025 16:24:24 Edit Date : Jan 09 2025 16:36:15 Diagnosis: ACCELERATED JUNCTIONAL RHYTHM NONSPECIFIC ST AND T WAVE ABNORMALITY ABNORMAL ECG WHEN COMPARED WITH ECG OF 09-Jan-2025 14:39, JUNCTIONAL RHYTHM HAS REPLACED SINUS RHYTHM Confirmed by PINO DONALDSON MD ([id number]) on 01/09/2025 4:36:11 PM Test Reason : Location : 4 : [facility] Overread By : PINO DONALDSON MD Edited By : PINO DONALDSON MD Referred By : , Acquired by : COLE PATTON [facility] Electrocardiogram Ventricular Rate : 9 0 BPM Atrial Rate : 90 BPM P-R Interval : 120 ms QRS Duration : 64 ms Q-T Interval : 364 ms QTC Calculation(Bazett) : 445 ms Calculated P [place] : 22 degrees Calculated R [place] : -11 degrees Calculated T [place] : 36 degrees NORMAL SINUS RHYTHM LOW VOLTAGE QRS BORDERLINE ECG WHEN COMPARED WITH ECG OF 14-Dec-2024 13:46, NO SIGNIFICANT CHANGE WAS FOUND Confirmed by PINO DONALDSON MD ([id number]) on 01/09/2025 2:57:29 PM NAME : ELBA DIAZ PID : [id number] : 1950 Gender : Female Race : ORD : Procedure Date : Jan 09 2025 14:39:21 Edit Date : Jan 09 2025 14:57:32 Diagnosis: NORMAL SINUS RHYTHM LOW VOLTAGE QRS BORDERLINE ECG WHEN COMPARED WITH ECG OF 14-Dec-2024 13:46, NO SIGNIFICANT CHANGE WAS FOUND Confirmed by PINO DONALDSON MD ([id number]) on 01/09/2025 2:57:29 PM Test Reason : Location : 4 : [facility] Overread By : PINO DONALDSON MD Edited By : PINO DONALDSON MD Referred By : , Acquired by : KEV GUZMAN [facility] HIGH SENSITIVITY TROPONIN To n 01-09-2025 Troponin T.cardiac High sensitivity method [Mass/Vol] 21 ng/L High <12 [facility] Comment on above: Order Comment: Speci men Type: BLOOD SPECIMEN Ordering Facility: [facility] Address: [address] [place] [address] Performed By: #### 3 0471-7 #### [facility] CLIA [id number] [address] [place] [address] [place] Troponin T.cardiac High sensitivity method [Mass/Vol] 21 ng/L High <12 [facility] Comment on above: Order Comment: Vikrami men Type: BLOOD SPECIMEN Ordering Facility: [facility] Address: [address] [place] [address] Performed By: #### 2 4321-2, 59468-1, 6956-3 #### [facility] IA [id number] [address] [place] [address] [place] HISTORY PHYSICALon HISTORY PHYSICAL HNO ID: [id number] Author: ELIA CARRENO II, MD Service: Hospital Medicine Author Type: Physician Type: H&P Filed: 01/10/2025 02:59 Note Text: DEPARTMENT OF HOSPITAL MEDICINE HISTORY AND PHYSICAL EXAM SERVICE DATE: 01/09/2025 SERVICE TIME: 9:44 PM Primary Care Physician: No primary care provider on file. NIGHT AND WEEKEND COVERAGE: From 7am - 7pm, please call Sound attending After 7pm, please call cross cover pager #[phone] ==== ASSESSMENT AND PLAN: 1) AMS - [...] (more content not included)... Normal [facility] Magnesium SerPl-mCncon 01-09 Magnesium [Mass/Vol] 1.8 mg/dL Normal 1.7-2.3 [facility] Comment on above: Order Comment: Speci men Type: BLOOD SPECIMEN Ordering Facility: [facility] Address: [address] [place] [address] Performed By: #### 2 4321-2, , 3 #### [facility] CLIA [id number] [address] [place] Urinalysis complete panel (U )on 01-09-2025 Bilirubin Ql (U) Negative Normal Negative [facility] Comment on above: Order Comment: Speci men Type: BLOOD SPECIMEN Ordering Facility: [facility] Address: [address] [place] [address] Performed By: #### 2 4321-2, , 3 #### [facility] CLIA [id number] [address] [place] Clarity (Unsp spec) Clear Normal Clear [facility] Comment on above: Order Comment: Speci men Type: BLOOD SPECIMEN Ordering Facility: [facility] Address: [address] [place] [address] Performed By: #### 2 4321-2, , 3 #### [facility] CLIA [id number] [address] [place] Color (U) Light Yellow Normal yellow [facility] Comment on above: Order Comment: Speci men Type: BLOOD SPECIMEN Ordering Facility: [facility] Address: [address] [place] [address] Performed By: #### 2 4321-2, , 3015-3 #### [facility] CLIA [id number] [address] [place] Epithelial cells LM.HPF (Urine sed) [#/Area] Few Normal [facility] Comment on above: Order Comment: Speci men Type: BLOOD SPECIMEN Ordering Facility: [facility] Address: [address] [place] [address] Performed By: #### 2 4321-2, , 3 #### [facility] CLIA [id number] [address] Glucose Test strip (U) [Mass/Vol] Negative Normal Trace, Negative [facility] Comment on above: Order Comment: Speci men Type: BLOOD SPECIMEN Ordering Facility: [facility] Address: [address] [place] [address] Performed By: #### 2 4321-2, , 3015-12 #### [facility] CLIA [id number] [address] Hemoglobin Ql (U) Negative Normal Negative, Trace [facility] Comment on above: Order Comment: Speci men Type: BLOOD SPECIMEN Ordering Facility: [facility] Address: [address] [place] [address] Performed By: #### 2 4321-2, , 3 #### [facility] CLIA [id number] [address] Ketones Ql (U) Negative Normal Negative, Trace [facility] Comment on above: Order Comment: Speci men Type: BLOOD SPECIMEN Ordering Facility: [facility] Address: [address] [place] [address] Performed By: #### 2 4321-2, , 3 #### [facility] CLIA [id number] [address] Leukocyte esterase Test strip Ql (U) 25 Chong/uL Normal Negative, 25 Chong/uL [facility] Comment on above: Order Comment: Speci men Type: BLOOD SPECIMEN Ordering Facility: [facility] Address: [address] [place] [address] Performed By: #### 2 4321-2, , 3 #### [facility] CLIA [id number] [address] [place] Nitrite Ql (U) Negative Normal Negative [facility] Comment on above: Order Comment: Speci men Type: BLOOD SPECIMEN Ordering Facility: [facility] Address: [address] [place] [address] Performed By: #### 2 4321-2, , 3 #### [facility] CLIA [id number] [address] [place] pH (U) 6.5 [pH] Normal 5.0-8.0 [facility] Comment on above: Order Comment: Speci men Type: BLOOD SPECIMEN Ordering Facility: [facility] Address: [address] [place] [address] Performed By: #### 2 1-2, , 3015-12 #### [facility] CLIA [id number] [address] Protein (U) [Mass/Vol] Negative Normal Trace , Negative [facility] Comment on above: Order Comment: Speci men Type: BLOOD SPECIMEN Ordering Facility: [facility] Address: [address] [place] [address] Performed By: #### 2 4321-2, , 3015-12 #### [facility] CLIA [id number] [address] RBC LM.HPF (Urine sed) [#/Area] 0-3 /HPF Normal 0-3 /HPF [facility] Comment on above: Order Comment: Speci men Type: BLOOD SPECIMEN Ordering Facility: [facility] Address: [address] [place] [address] Performed By: #### 2 4321-2, , 3 #### [facility] CLIA [id number] [address] [place] Specific gravity (U) [Rel density] 1.027 Normal 1.005-1.030 [facility] Comment on above: Order Comment: Speci men Type: BLOOD SPECIMEN Ordering Facility: [facility] Address: [address] [place], [place] [address] Performed By: #### 2 4321-2, 69868-8, 3015-3 #### [facility] CLIA [id number] [address] Urobilinogen Ql (U) Normal Normal Normal [facility] Comment on above: Order Comment: Speci men Type: BLOOD SPECIMEN Ordering Facility: [facility] Address: [address] [place] [address] Performed By: #### 2 4321-2, , 3015-3 #### [facility] CLIA [id number] [address] [facility] WBC LM.HPF (Urine sed) [#/Area] 0-5 /HPF Normal 0-5 /HPF [facility] Comment on above: Order Comment: Speci men Type: BLOOD SPECIMEN Ordering Facility: [facility] Address: [address] [place] [address] Performed By: #### 2 4321-2, , 3015-3 #### [facility] CLIA [id number] [address] [place] XR CHEST 1V FRONTALon 2024 [...] Other: . IMPRESSION: No acute radiographic abnormality. Lamp Tester And Inspector: ALEXANDRO Transcribe Date/Time: Jan 09 2025 2:51P Dictated by : HAMILTON LERMA MD This examination was interpreted and the report reviewed and electronically signed by: HAMILTON LERMA MD on Jan 09 2025 2:52PM EST [id number] [facility] 36on 01-01-2025 36 Pt is added on the w ait list [facility] 36 Name of caller: Elmer bermeo Contact phone number: [phone] Relationship to Patient: [facility] Provider: New Patient/Dr. Oswald Practice: [...] business hours to return their call: N/A [facility] Absolute lymphocyte countOrd ered By: Robb Barnes on 12-31-2024 Lymphocytes Auto (Unsp spec) [#/Vol] 1.49 10*3/uL 0.83-4.51 [facility] Absolute neutrophil countOrd ered By: Robb Barnes on 12-31-2024 Neutrophils (Bld) [#/Vol] 5.3 10*3/uL 2.0-7.7 [facility] Automated lymphocyte count a s percentage of total leukocytesOrdered By: Robb Barnes on 12-31-2024 Lymphocytes/100 WBC Auto (Unsp spec) 19.3 % 19-41 [facility] Basophil percentageOrdered B y: Robb Barnes on 12-31-2024 Basophils/100 WBC (Bld) 0.4 % 0-1 [facility] Eosinophil percentageOrdered By: Robb Barnes on 12-31-2024 Eosinophils/100 WBC (Bld) 1.9 % 0-5 [facility] Erythrocyte distribution wid th (RBC) [Ratio]Ordered By: Robb Barnes on 12-31-2024 Erythrocyte distribution width (RBC) [Entitic vol] 47.8 fL High 35.1-43.9 [facility] Erythrocyte distribution wid th ratioOrdered By: Robb Barnes on 12-31-2024 Erythrocyte distribution width (RBC) [Ratio] 13.1 % 11.6-14.6 [facility] Erythrocyte distribution wid th standard deviationOrdered By: Robb Barnes on 12-31-2024 Erythrocyte distribution width (RBC) [Ratio] 47.8 fl High 35.1-43.9 [facility] Hematocrit Auto (Bld) [Volum e fraction]Ordered By: Robb Barnes on 12-31-2024 Hematocrit (Bld) [Volume fraction] 36.2 % Low 37-47 [facility] Hemoglobin measurementOrdere d By: Robb Barnes on 12-31-2024 Hemoglobin (Bld) [Mass/Vol] 11.7 g/dL Low 12.0-15.0 [facility] Immature granulocytes/100 WB C Auto (Bld)Ordered By: Robb Barnes on 12-31-2024 Immature granulocytes/100 WBC (Bld) 0.400 % 0.0-0.9 [facility] Comment on above: IG% - Immature Granu locytes (promyelocytes, myelocytes and metamyelocytes) > 1% indicates that a LEFT SHIFT is Present. Lymphocytes Auto (Unsp spec) [#/Vol]Ordered By: Robb Barnes on 12-31-2024 Lymphocytes (Bld) [#/Vol] 1.49 10*3/uL 0.83-4.51 [facility] Lymphocytes/100 WBC Auto (Un sp spec)Ordered By: Robb Barnes on 12-31-2024 Lymphocytes/100 WBC (Bld) 19.3 % 19-41 [facility] MCV (mean corpuscular volume ) determinationOrdered By: Robb Barnes on 12-31-2024 MCV (RBC) [Entitic vol] 100.0 fL High 81-99 [facility] Mean corpuscular hemoglobin (MCH) determinationOrdered By: Robb Barnes on 12-31-2024 MCH (RBC) [Entitic mass] 32.3 pg High 27.0-32.0 [facility] Mean corpuscular hemoglobin concentration (MCHC) determinationOrdered By: Robb Barnes on 12-31-2024 MCHC (RBC) [Mass/Vol] 32.3 g/dL 32-36 [facility] Mean platelet volume determi nationOrdered By: Robb Barnes on 12-31-2024 Platelet mean volume (Bld) [Entitic vol] 8.8 fL 6.2-12.0 [facility] Monocyte percentageOrdered B y: Robb Barnes on 12-31-2024 Monocytes/100 WBC (Bld) 8.8 % 0-10 [facility] Neutrophil percentageOrdered By: Robb Barnes on 12-31-2024 Neutrophils/100 WBC (Bld) 69.2 % 47-70 [facility] Nucleated red blood cell per centageOrdered By: Robb Barnes on 12-31-2024 Nucleated RBC/100 WBC (Bld) [Ratio] 0 % 0-5 [facility] Platelet countOrdered By: Ramila Barnes on 12-31-2024 Platelets (Bld) [#/Vol] 152 10*3/uL 150-450 [facility] RBC Auto (Bld) [#/Vol]Ordere d By: Robb Barnes on 12-31-2024 RBC (Bld) [#/Vol] 3.62 10*6/uL Low 4.2-5.4 [facility] Serum or plasma valproate me asurement (mass/volume)Ordered By: Robb Barnes on 12-31-2024 Valproate [Mass/Vol] 36 ug/mL Low 50-100 [facility] Comment on above: Valproic Acid concen trations >100 ug/mL are potentially toxic. Valproate [Mass/Vol]Ordered By: Robb Barnes on 12-31-2024 Valproic Acid (Depakene) Level 36 ug/mL Low 50-100 [facility] Comment on above: Valproic Acid concen trations >100 ug/mL are potentially toxic. White blood cell (WBC) count Ordered By: Robb Barnes on 12-31-2024 WBC (Bld) [#/Vol] 7.7 10*3/uL 4.4-11.0 [facility] Bilirubin Test strip Ql (U)O rdered By: Robb Barnes on 12-30-2024 Bilirubin Ql (U) Negative Negative [facility] Glucose Ql (U)Ordered By: Ramila Barnes on 12-30-2024 Urine Glucose (UA) Normal mg/dl Normal [facility] Ketones Test strip Ql (U)Ord ered By: Robb Barnes on 12-30-2024 Ketones Ql (U) 15 mg/dl High Negative [facility] Nitrite Test strip Ql (U)Ord ered By: Robb Barnes on 12-30-2024 Nitrite Ql (U) Positive High Negative [facility] Protein Test strip Ql (U)Ord ered By: Robb Barnes on 12-30-2024 Protein Ql (U) 30 mg/dl High Negative [facility] Urine blood detectionOrdered By: Robb Barnes on 12-30-2024 Urine Occult Blood 10 /ul High Negative [facility] Urine clarityOrdered By: Renan Banres on 12-30-2024 Clarity (U) Clear Clear [facility] Urine color determinationOrd ered By: Robb Barnes on 12-30-2024 Color (U) Yellow [facility] Urine cultureOrdered By: Renan Barnes on 12-30-2024 Bacteria identified Cx Nom (U) ESBL Escherichia coli Abnormal [facility] Urine glucose detectionOrder ed By: Robb Barnes on 12-30-2024 Glucose Ql (U) Normal mg/dl Normal [facility] Urine leukocyte esterase det ection by dipstickOrdered By: Robb Barnes on 12-30-2024 Leukocyte esterase Test strip Ql (U) 100 /ul High Negative [facility] Urine pHOrdered By: Robb huerta on 12-30-2024 pH (U) 6.0 [pH] 5.0 - 8.0 [facility] Urine specific gravity measu rementOrdered By: Robb Barnes on 12-30-2024 Specific gravity (U) [Rel density] 1.020 1.002-1.030 [facility] Urine urobilinogen measureme ntOrdered By: Robb Barnes on 12-30-2024 Urobilinogen Ql (U) Normal mg/dl Normal [facility] Urobilinogen Ql (U)Ordered B y: Robb Barnes on 12-30-2024 Urine Urobilinogen Normal mg/dl Normal [facility] Absolute lymphocyte countOrd ered By: [facility] on 12-24-2024 Lymphocytes Auto (Unsp spec) [#/Vol] 1.70 10*3/uL 0.83-4.51 [facility] Absolute neutrophil countOrd ered By: [facility] on 12-24-2024 Neutrophils (Bld) [#/Vol] 4.3 10*3/uL 2.0-7.7 [facility] Anion gap in Serum or Plasma Ordered By: [facility] on 12-24-2024 Anion gap [Moles/Vol] 12 mmol/L 5-15 [facility] Automated lymphocyte count a s percentage of total leukocytesOrdered By: [facility] on 12-24-2024 Lymphocytes/100 WBC Auto (Unsp spec) 24.6 % 19-41 [facility] BUN/creatinine ratioOrdered By: [facility] on 12-24-2024 Urea nitrogen/Creatinine [Mass ratio] 61.9 mg/mg High 10-20 [facility] Basophil percentageOrdered B y: [facility] on 12-24-2024 Basophils/100 WBC (Bld) 0.4 % 0-1 [facility] Bilirubin directOrdered By: [facility] on 12-24-2024 Bilirubin.direct [Mass/Vol] mg/dL 0.00-0.30 [facility] Comment on above: Hemolysis present, R esults could be affected. Bilirubin, totalOrdered By: [facility] on 12-24-2024 Bilirubin [Mass/Vol] 0.17 mg/dL 0.00-1.30 [facility] Bilirubin.direct [Mass/Vol]O rdered By: [facility] on 12-24-2024 Direct Bilirubin < 0.08 mg/dL 0.00-0.30 [facility] Comment on above: Hemolysis present, R esults could be affected. Carbon dioxide, total [Moles /volume] in Central venous bloodOrdered By: [facility] on 12-24-2024 CO2 [Moles/Vol] 20.1 mmol/L Low 21.0-32.0 [facility] Chloride assayOrdered By: Akash [facility] on 12-24-2024 Chloride [Moles/Vol] 105 mmol/L 98-108 [facility] Eosinophil percentageOrdered By: [facility] on 12-24-2024 Eosinophils/100 WBC (Bld) 2.9 % 0-5 [facility] Erythrocyte distribution wid th (RBC) [Ratio]Ordered By: [facility] on 12-24-2024 Erythrocyte distribution width (RBC) [Entitic vol] 44.6 fL High 35.1-43.9 [facility] Erythrocyte distribution wid th ratioOrdered By: [facility] on 12-24-2024 Erythrocyte distribution width (RBC) [Ratio] 12.3 % 11.6-14.6 [facility] Erythrocyte distribution wid th standard deviationOrdered By: [facility] on 12-24-2024 Erythrocyte distribution width (RBC) [Ratio] 44.6 fl High 35.1-43.9 [facility] GFR/1.73 sq M.predicted juwan g non-blacks MDRD (S/P/Bld) [Vol rate/Area]Ordered By: [facility] on 12-24-2024 Estimated GFR (MDRD) Non-Af Amer 109 >60 [facility] Comment on above: mL/min/1.73m2 CKD-EP I Creatinine Equation (2020) Glomerular filtration rate ( GFR) estimation/1.73 sq m using serum, plasma, or whole bOrdered By: [facility] on 12-24-2024 GFR/1.73 sq M.predicted among non-blacks MDRD (S/P/Bld) [Vol rate/Area] 109 mL/min/{1.73_m2} >60 [facility] Comment on above: mL/min/1.73m2 CKD-EP I Creatinine Equation (2020) Hematocrit Auto (Bld) [Volum e fraction]Ordered By: [facility] on 12-24-2024 Hematocrit (Bld) [Volume fraction] 36.0 % Low 37-47 [facility] Hemoglobin measurementOrdere d By: [facility] on 12-24-2024 Hemoglobin (Bld) [Mass/Vol] 12.1 g/dL 12.0-15.0 [facility] Immature granulocytes/100 WB C Auto (Bld)Ordered By: [facility] on 12-24-2024 Immature granulocytes/100 WBC (Bld) 0.600 % 0.0-0.9 [facility] Comment on above: IG% - Immature Granu locytes (promyelocytes, myelocytes and metamyelocytes) > 1% indicates that a LEFT SHIFT is Present. Laboratory - Chemistry and C hemistry - challengeOrdered By: [facility] on 12-24-2024 AST [Catalytic activity/Vol] 31 U/L <32 [facility] Comment on above: Hemolysis present, R esults could be affected. Lymphocytes Auto (Unsp spec) [#/Vol]Ordered By: [facility] on 12-24-2024 Lymphocytes (Bld) [#/Vol] 1.70 10*3/uL 0.83-4.51 [facility] Lymphocytes/100 WBC Auto (Un sp spec)Ordered By: [facility] on 12-24-2024 Lymphocytes/100 WBC (Bld) 24.6 % 19-41 [facility] MCV (mean corpuscular volume ) determinationOrdered By: [facility] on 12-24-2024 MCV (RBC) [Entitic vol] 98.6 fL 81-99 [facility] Mean corpuscular hemoglobin (MCH) determinationOrdered By: [facility] on 12-24-2024 MCH (RBC) [Entitic mass] 33.2 pg High 27.0-32.0 [facility] Mean corpuscular hemoglobin concentration (MCHC) determinationOrdered By: [facility] on 12-24-2024 MCHC (RBC) [Mass/Vol] 33.6 g/dL 32-36 [facility] Mean platelet volume determi nationOrdered By: [facility] on 12-24-2024 Platelet mean volume (Bld) [Entitic vol] 8.8 fL 6.2-12.0 [facility] Monocyte percentageOrdered B y: [facility] on 12-24-2024 Monocytes/100 WBC (Bld) 8.7 % 0-10 [facility] Neutrophil percentageOrdered By: [facility] on 12-24-2024 Neutrophils/100 WBC (Bld) 62.8 % 47-70 [facility] Nucleated red blood cell per centageOrdered By: [facility] on 12-24-2024 Nucleated RBC/100 WBC (Bld) [Ratio] 0 % 0-5 [facility] Platelet countOrdered By: Akash [facility] on 12-24-2024 Platelets (Bld) [#/Vol] 172 10*3/uL 150-450 [facility] Potassium (Unsp spec) [Mass/ Vol]Ordered By: [facility] on 12-24-2024 Potassium [Moles/Vol] 4.4 mmol/L 3.3-5.1 [facility] Comment on above: Hemolysis present, R esults could be affected. Potassium measurement (mass/ volume)Ordered By: [facility] on 12-24-2024 Potassium (Unsp spec) [Mass/Vol] 4.4 mmol/L 3.3-5.1 [facility] Comment on above: Hemolysis present, R esults could be affected. RBC Auto (Bld) [#/Vol]Ordere d By: [facility] on 12-24-2024 RBC (Bld) [#/Vol] 3.65 10*6/uL Low 4.2-5.4 [facility] Serum creatinine measurement (mass/volume)Ordered By: [facility] on 12-24-2024 Creatinine [Mass/Vol] 0.33 mg/dL Low 0.70-1.20 [facility] Serum globulin measurementOr dered By: [facility] on 12-24-2024 Globulin (S) [Mass/Vol] 3.1 g/dL 2.2-4.2 [facility] Serum glucose measurement (m ass/volume)Ordered By: [facility] on 12-24-2024 Glucose [Mass/Vol] 72 mg/dL 70-99 [facility] Serum or plasma alanine timmons otransferase (ALT) measurementOrdered By: [facility] on 12-24-2024 ALT [Catalytic activity/Vol] 7 U/L <35 [facility] Serum or plasma albumin claudette urement (mass/volume)Ordered By: [facility] on 12-24-2024 Albumin [Mass/Vol] 2.8 g/dL Low 3.4-4.8 [facility] Serum or plasma alkaline karson sphatase measurementOrdered By: [facility] on 12-24-2024 ALP [Catalytic activity/Vol] 76 U/L 35-104 [facility] Serum or plasma calcium claudette urement (mass/volume)Ordered By: [facility] on 12-24-2024 Calcium [Mass/Vol] 9.0 mg/dL 7.6-11.0 [facility] Serum or plasma urea nitroge n measurement (mass/volume)Ordered By: [facility] on 12-24-2024 Urea nitrogen [Mass/Vol] 21 mg/dL High 4-19 [facility] Sodium levelOrdered By: [facility] on 12-24-2024 Sodium [Moles/Vol] 136 mmol/L 133-145 [facility] Total proteinOrdered By: [facility] on 12-24-2024 Protein [Mass/Vol] 5.9 g/dL 5.9-8.4 [facility] White blood cell (WBC) count Ordered By: [facility] on 12-24-2024 WBC (Bld) [#/Vol] 6.9 10*3/uL 4.4-11.0 [facility] Bilirubin Test strip Ql (U)O rdered By: Robb Barnes on 12-22-2024 Bilirubin Ql (U) Negative Negative [facility] Glucose Ql (U)Ordered By: Ramila Barnes on 12-22-2024 Urine Glucose (UA) Normal mg/dl Normal [facility] Ketones Test strip Ql (U)Ord ered By: Robb Barnes on 12-22-2024 Ketones Ql (U) 15 mg/dl High Negative [facility] Nitrite Test strip Ql (U)Ord ered By: Robb Barnes on 12-22-2024 Nitrite Ql (U) Negative Negative [facility] Protein Test strip Ql (U)Ord ered By: Robb Barnes on 12-22-2024 Protein Ql (U) 30 mg/dl High Negative [facility] Urine blood detectionOrdered By: Robb Barnes on 12-22-2024 Urine Occult Blood Negative Negative [facility] Urine clarityOrdered By: Renan Barnes on 12-22-2024 Clarity (U) Clear Clear [facility] Urine color determinationOrd ered By: Robb Barnes on 12-22-2024 Color (U) Yellow Yellow [facility] Urine cultureOrdered By: Renan Barnes on 12-22-2024 Bacteria identified Cx Nom (U) GNR lactose roll reclaimer Abnormal [facility] Urine glucose detectionOrder ed By: Robb Barnes on 12-22-2024 Glucose Ql (U) Normal mg/dl Normal [facility] Urine leukocyte esterase det ection by dipstickOrdered By: Robb Barnes on 12-22-2024 Leukocyte esterase Test strip Ql (U) Negative Negative [facility] Urine pHOrdered By: Robb huerta on 12-22-2024 pH (U) 6.0 [pH] 5.0 - 8.0 [facility] Urine specific gravity measu rementOrdered By: Robb Barnes on 12-22-2024 Specific gravity (U) [Rel density] 1.020 1.002-1.030 [facility] Urine urobilinogen measureme ntOrdered By: Robb Barnes on 12-22-2024 Urobilinogen Ql (U) Normal mg/dl Normal [facility] Urobilinogen Ql (U)Ordered B y: Robb Barnes on 12-22-2024 Urine Urobilinogen Normal mg/dl Normal [facility] CNDSon 12-18-2024 CNDS HNO ID: [id number] Author: DANILO HELMS MD Service: Hospital Medicine [...] Attending Provider: Danilo Helms MD Primary Service: RI MILI MILLER MY CONDITION AT DISCHARGE: Stable REASON I WAS IN THE HOSPITAL: Change in mental status SUMMARY OF WHAT HAPPENED WHILE I WAS IN THE HOSPITAL: 74-year-old female with a history of cerebrovascular disease and debilitating stroke leaving the patient essentially bedbound. Patient resides at the skilled nursing. Admitted to the hospital on account of change in mental status. Suspected to be secondary to urinary tract infection and possibly so. Found to be dehydrated as well. Treated with antibiotics and IV fluids. Mental status has improved. She is essentially back to baseline. Able to return back to skilled nursing. OTHER PROBLEMS/DIAGNOSIS: Principal Problem: AMS (altered mental [...] No pending results Discharge Disposition [facility] Dis[facility] Additional Provider to Provider Information: No notes on file Exogenous Class 1 Obesity Treatment Team: Attending Provider: Danilo Helms MD Primary Service: BANG MILLER Transitions of Care Critical Issues: None LABS AND PROCEDURES PENDING AT DISCHARGE: No pending results. FOLLOW-UP APPOINTMENTS ALREADY SCHEDULED WITH A [facility] PROVID[facility]: No future appointments. ALLERGIES Allergen Reactions [...] (more content not included)... Normal [facility] Basic metabolic 2000 panelon 12-17-2024 Anion gap [Moles/Vol] 11 mmol/L Normal 8-15 [facility] Comment on above: Order Comment: Specjey montilla Type: BLOOD SPECIMEN Ordering Facility: [facility] Address: [address] [id number] Performed By: #### 2 4321-2, 31283-5, 3016-3 #### [facility] CLIA [id number] [address] [place] [address] [place] Calcium [Mass/Vol] 8.6 mg/dL Normal 8.5-10.2 [facility] Comment on above: Order Comment: Vicky montilla Type: BLOOD SPECIMEN Ordering Facility: [facility] Address: [address] [id number] Performed By: #### 2 4321-2, 90547-6, 6-3 #### [facility] CLIA [id number] [address] [place] [address] [place] Chloride [Moles/Vol] 109 mmol/L High 98-107 [facility] Comment on above: Order Comment: Speci men Type: BLOOD SPECIMEN Ordering Facility: [facility] Address: [address] [place] [address] Performed By: #### 2 4321-2, , 6-3 #### [facility] CLIA [id number] [address] [place] CO2 [Moles/Vol] 22 mmol/L Normal 22-30 [facility] Comment on above: Order Comment: Speci men Type: BLOOD SPECIMEN Ordering Facility: [facility] Address: [address] [place] [address] Performed By: #### 2 4321-2, , 3015-3 #### [facility] CLIA [id number] [address] [place] Creatinine [Mass/Vol] 0.42 mg/dL Low 0.58-0.96 [facility] Comment on above: Order Comment: Speci men Type: BLOOD SPECIMEN Ordering Facility: [facility] Address: [address] [place] [address] Performed By: #### 2 4321-2, , 6-3 #### [facility] CLIA [id number] [address] Creatinine and Glomerular filtration rate.predicted panel (S/P/Bld) 103 mL/min/1.73m??? Normal >=60 [facility] Comment on above: Order Comment: Speci men Type: BLOOD SPECIMEN Ordering Facility: [facility] Address: [address] [place] [address] Result Comment: Cecy mated Glomerular Filtration Rate [...] actual GFR. Performed By: #### 2 4321-2, 06941-2, 3 #### [facility] CLIA [id number] [address] [place] [address] [place] Glucose [Mass/Vol] 102 mg/dL High 74-99 [facility] Comment on above: Order Comment: Speci men Type: BLOOD SPECIMEN Ordering Facility: [facility] Address: [address] [place] [address] Result Comment: The [place] [employer] (ADA) provides guidance for cutoff [...] Standards of Medical Care in Diabetes 2016, [place] [employer]. Diabetes Care. 2016.39(Suppl 1). Performed By: #### 2 4321-2, , 3015-12 #### [facility] CLIA [id number] [address] [place] [address] [place] Potassium [Moles/Vol] 3.9 mmol/L Normal 3.7-5.1 [facility] Comment on above: Order Comment: Speci men Type: BLOOD SPECIMEN Ordering Facility: [facility] Address: [address] [place] [address] Performed By: #### 2 4321-2, , 3 #### [facility] CLIA [id number] [address] [place] [address] [place] Sodium [Moles/Vol] 142 mmol/L Normal 136-144 [facility] Comment on above: Order Comment: Speci men Type: BLOOD SPECIMEN Ordering Facility: [facility] Address: [address] [place] [address] Performed By: #### 2 4321-2, 32832-8, 3 #### [facility] CLIA [id number] [address] [facility] Urea nitrogen [Mass/Vol] 4 mg/dL Low 7-21 [facility] Comment on above: Order Comment: Speci men Type: BLOOD SPECIMEN Ordering Facility: [facility] Address: [address] [place], [place] [id number] Performed By: #### 2 4321-2, , 3015-12 #### [facility] CLIA [id number] [address] CONSULT PROGon 12-17-2024 CONSULT PROG HNO ID: [id number] Author: TRINITY BOJORQEUZ APRN.CHAIR SPRING ASSEMBLER Service: Wound/Ostomy Author Type: Nurse Practitioner Type: Consult Progress Note Filed: 12/17/2024 12:37 Note Text: WOUND CARE SERVICE CONSULT SAIL FINISHER HAND NOTE SERVICE DATE: 12/17/2024 SERVICE TIME: 1020 [...] female who is seen today with Shelly Polk Wound/air sampler, and presented to hospital with complaints of [...] 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 Normal [facility] NUTRITIONon 12-17-2024 NUTRITION HNO ID: [id number] Author: EMMANUEL AMIN RD Service: Nutrition Therapy [...] 49.9 kg (110 lb) Dosing Weight Type: Cascade body weight Estimated kilocalorie needs: 2723-8975 Calorie Calculation Method: 25-30 kcals/kg, Cascade Body Weight Estimated protein needs (grams): 50-60 Grams protein determined by: 1.0 - 1.2 g/kg, Cascade body weight Diet Orders (From admission, onward) [...] 2024 TIME: 9:06 AM Normal [facility] THERAPY NTon 12-17-2024 THERAPY NT HNO ID: [id number] Author: DINA HIDALGO CCC-HEALTH CARE FACILITY ADMINISTRATOR Service: Speech/Swallow Author Type: Speech Language Pathologist Type: Therapy (PT/OT/Speech/Resp) Filed: 12/17/2024 11:57 Note Text: Speech Therapy Speech Evaluation SERVICE DATE: 12/17/2024 SERVICE TIME: 1115 to 1130 ROOM: [address] [address] IMPRESSION Functional without limitations in: Speech, Language, [...] Required Assistance Patient Lives With: Facility Care ([facility]) Assistance Available: 24 Hour Prior Swallowing Function/Diet Textures: Regular Consistency, Thin Liquids IDDSI Level 0 SUBJECTIVE The patient is awake, talking in full logical sentences. THERAPY DIAGNOSIS No Skilled Need TREATMENT INTERVENTIONS Speech Language Eval (14895) Skilled Treatment Time (minutes): 15 $ Speech Language Eval (58532) Billed Units: 1 unit TRAINING AND EDUCATION [...] response, or unable to respond Stimulus Response/Score [facility] 12/[address] 12/22 [...] Care Developed with: Patient SIGNATURE: Dina Hidalgo CCC-HEALTH CARE FACILITY ADMINISTRATOR PATIENT NAME: Elba Diaz DATE: December 17, 2024 TIME: 11:55 AM Normal [facility] CBC W Auto Differential pane l (Bld)on 12-16-2024 Basophils (Bld) [#/Vol] 10*3/uL Normal <0.11 [facility] Comment on above: Order Comment: Vicky montilla Type: BLOOD SPECIMENOrdering Facility: [facility] Address: [address] [place] [address] Performed By: #### 5 7021-8 ####[facility] [id number] [place] [address] [place] Basophils/100 WBC (Bld) 0.3 % Normal [facility] Comment on above: Order Comment: Vicky montilla Type: BLOOD SPECIMENOrdering Facility: [facility] Address: [address] [place] [address] Performed By: #### 5 7021-8 ####[facility] [id number] [address] Differential cell count method Nom (Bld) Auto Normal [facility] Comment on above: Order Comment: Speci men Type: BLOOD SPECIMENOrdering Facility: [facility] Address: [address] [place] [address] Performed By: #### 5 7021-8 ####[facility] [id number] [address] Eosinophils (Bld) [#/Vol] 0.13 10*3/uL Normal <0.46 [facility] Comment on above: Order Comment: Speci men Type: BLOOD SPECIMENOrdering Facility: [facility] Address: [address] [place] [address] Performed By: #### 5 7021-8 ####[facility] [id number] [address] Eosinophils/100 WBC (Bld) 2.1 % Normal [facility] Comment on above: Order Comment: Speci men Type: BLOOD SPECIMENOrdering Facility: [facility] Address: [address] [place] [address] Performed By: #### 5 7021-8 ####[facility] [id number] [address] Erythrocyte distribution width (RBC) [Ratio] 12.2 % Normal 11.5-15.0 [facility] Comment on above: Order Comment: Speci men Type: BLOOD SPECIMENOrdering Facility: [facility] Address: [address] [place] [address] Performed By: #### 5 7021-8 ####[facility] [id number] [address] Hematocrit (Bld) [Volume fraction] 35.7 % Low 36.0-46.0 [facility] Comment on above: Order Comment: Speci men Type: BLOOD SPECIMENOrdering Facility: [facility] Address: [address] [place] [address] Performed By: #### 5 7021-8 ####[facility] [id number] [place] [address] [place] Hemoglobin (Bld) [Mass/Vol] 12.0 g/dL Normal 11.5-15.5 [facility] Comment on above: Order Comment: Speci men Type: BLOOD SPECIMENOrdering Facility: [facility] Address: [address] [place] [address] Performed By: #### 5 7021-8 ####[facility] [id number] [place] [address] [place] Immature granulocytes (Bld) [#/Vol] 0.04 10*3/uL Normal <0.10 [facility] Comment on above: Order Comment: Speci men Type: BLOOD SPECIMENOrdering Facility: [facility] Address: [address] [place] [address] Performed By: #### 5 7021-8 ####[facility]ORYCLIA [id number] [address] [place] Immature granulocytes/100 WBC (Bld) 0.6 % Normal [facility] Comment on above: Order Comment: Speci men Type: BLOOD SPECIMENOrdering Facility: [facility] Address: [address] [place] [address] Performed By: #### 5 7021-8 ####[facility] LABORATORYCLIA [id number] [address] [place] Lymphocytes (Bld) [#/Vol] 1.21 10*3/uL Normal 1.00-4.00 [facility] Comment on above: Order Comment: Speci men Type: BLOOD SPECIMENOrdering Facility: [facility] Address: [address] [place] [address] Performed By: #### 5 7021-8 ####[facility] LABORATORYCLIA [id number] [address] [place] Lymphocytes/100 WBC (Bld) 19.2 % Normal [facility] Comment on above: Order Comment: Speci men Type: BLOOD SPECIMENOrdering Facility: [facility] Address: [address] [place] [address] Performed By: #### 5 7021-8 ####[facility] LABORATORYCLIA [id number] [address] MCH (RBC) [Entitic mass] 33.8 pg Normal 26.0-34.0 [facility] Comment on above: Order Comment: Speci men Type: BLOOD SPECIMENOrdering Facility: [facility] Address: [address] [place] [address] Performed By: #### 5 7021-8 ####[facility] LABORATORYCLIA [id number] [address] [facility] MCHC (RBC) [Mass/Vol] 33.6 g/dL Normal 30.5-36.0 [facility] Comment on above: Order Comment: Speci men Type: BLOOD SPECIMENOrdering Facility: [facility] Address: [address] [place] [address] Performed By: #### 5 7021-8 ####[facility] LABORATORYCLIA [id number] [address] MCV (RBC) [Entitic vol] 100.6 fL High 80.0-100.0 [facility] Comment on above: Order Comment: Speci men Type: BLOOD SPECIMENOrdering Facility: [facility] Address: [address] [place] [address] Performed By: #### 5 7021-8 ####[facility] LABORATORYCLIA [id number] [address] Monocytes (Bld) [#/Vol] 0.61 10*3/uL Normal <0.87 [facility] Comment on above: Order Comment: Speci men Type: BLOOD SPECIMENOrdering Facility: [facility] Address: [address] [place] [address] Performed By: #### 5 7021-8 ####[facility] LABORATORYCLIA [id number] [address] Monocytes/100 WBC (Bld) 9.7 % Normal [facility] Comment on above: Order Comment: Speci men Type: BLOOD SPECIMENOrdering Facility: [facility] Address: [address] [place] [address] Performed By: #### 5 7021-8 ####[facility] LABORATORYCLIA [id number] [place] [address] [place] Neutrophils (Bld) [#/Vol] 4.30 10*3/uL Normal 1.45-7.50 [facility] Comment on above: Order Comment: Speci men Type: BLOOD SPECIMENOrdering Facility: [facility] Address: [address] [place] [address] Performed By: #### 5 7021-8 ####[facility] LABORATORYCLIA [id number] [address] Neutrophils/100 WBC (Bld) 68.1 % Normal [facility] Comment on above: Order Comment: Speci men Type: BLOOD SPECIMENOrdering Facility: [facility] Address: [address] [place] [address] Performed By: #### 5 7021-8 ####[facility] LABORATORYCLIA [id number] [place] [address] [place] Nucleated RBC (Bld) [#/Vol] 10*3/uL Normal <0.01 [facility] Comment on above: Order Comment: Speci men Type: BLOOD SPECIMENOrdering Facility: [facility] Address: [address] [place] [address] Performed By: #### 5 7021-8 ####[facility]ORATORYCLIA [id number] [address] [place] Nucleated RBC/100 WBC (Bld) [Ratio] 0.0 /100 WBC Normal [facility] Comment on above: Order Comment: Speci men Type: BLOOD SPECIMENOrdering Facility: [facility] Address: [address] [place] [address] Performed By: #### 5 7021-8 ####[facility]ORATORYCLIA [id number] [address] [place] Platelet mean volume (Bld) [Entitic vol] 8.8 fL Low 9.0-12.7 [facility] Comment on above: Order Comment: Speci men Type: BLOOD SPECIMENOrdering Facility: [facility] Address: [address] [place] [address] Performed By: #### 5 7021-8 ####[facility] LABORATORYCLIA [id number] [place] [address] [place] Platelets (Bld) [#/Vol] 116 10*3/uL Low 150-400 [facility] Comment on above: Order Comment: Speci men Type: BLOOD SPECIMENOrdering Facility: [facility] Address: [address] [place] [address] Performed By: #### 5 7021-8 ####[facility] LABORATORYCLIA [id number] [address] [place] RBC (Bld) [#/Vol] 3.55 10*6/uL Low 3.90-5.20 [facility] Comment on above: Order Comment: Speci men Type: BLOOD SPECIMENOrdering Facility: [facility] Address: [address] [place] [address] Performed By: #### 5 7021-8 ####[facility] LABORATORYCLIA [id number] [address] [place] WBC (Bld) [#/Vol] 6.31 10*3/uL Normal 3.70-11.00 [facility] Comment on above: Order Comment: Speci men Type: BLOOD SPECIMENOrdering Facility: [facility] Address: [address] [place] [address] Performed By: #### 5 7021-8 ####[facility] LABORATORYCLIA [id number] [address] [place] Comprehensive metabolic 2000 panelon 12-16-2024 Albumin [Mass/Vol] 3.1 g/dL Low 3.9-4.9 [facility] Comment on above: Order Comment: Speci men Type: BLOOD SPECIMEN [facility] Address: [address] [place] [address] Performed By: #### 2 4321-2, 83961-2, 6-3 #### [facility] CLIA [id number] [address] [facility] ALP [Catalytic activity/Vol] 78 U/L Normal 34-123 [facility] Comment on above: Order Comment: Speci men Type: BLOOD SPECIMEN [facility] Address: [address] [place] [address] Performed By: #### 2 4321-2, , 3015-3 #### [facility] CLIA [id number] [address] ALT With P-5'-P [Catalytic activity/Vol] 18 U/L Normal 7-38 [facility] Comment on above: Order Comment: Speci men Type: BLOOD SPECIMEN [facility] Address: [address] [place] [address] Performed By: #### 2 4321-2, , 3015-3 #### [facility] CLIA [id number] [address] Anion gap [Moles/Vol] 11 mmol/L Normal 8-15 [facility] Comment on above: Order Comment: Speci men Type: BLOOD SPECIMEN [facility] Address: [address] [place] [address] Performed By: #### 2 4321-2, , 3015-3 #### [facility] CLIA [id number] [address] [facility] AST With P-5'-P [Catalytic activity/Vol] 31 U/L Normal 13-35 [facility] Comment on above: Order Comment: Speci men Type: BLOOD SPECIMEN [facility] Address: [address] [place] [id number] Performed By: #### 2 4321-2, 12076-2, 6-3 #### [facility] CLIA [id number] [address] [place] [address] [place] Bilirubin [Mass/Vol] 0.2 mg/dL Normal 0.2-1.3 [facility] Comment on above: Order Comment: Speci men Type: BLOOD SPECIMEN [facility] Address: [address] [place] [address] Performed By: #### 2 4321-2, , 3 #### [facility] CLIA [id number] [address] [place] [address] [place] Calcium [Mass/Vol] 8.5 mg/dL Normal 8.5-10.2 [facility] Comment on above: Order Comment: Speci men Type: BLOOD SPECIMEN [facility] Address: [address] [place] [address] Performed By: #### 2 4321-2, , 3 #### [facility] CLIA [id number] [address] [place] [address] [place] Chloride [Moles/Vol] 105 mmol/L Normal 98-107 [facility] Comment on above: Order Comment: Speci men Type: BLOOD SPECIMEN [facility] Address: [address] [place] [address] Performed By: #### 2 4321-2, , 3 #### [facility] CLIA [id number] [address] [place] [address] [place] CO2 [Moles/Vol] 22 mmol/L Normal 22-30 [facility] Comment on above: Order Comment: Speci men Type: BLOOD SPECIMEN [facility] Address: [address] [place] [address] Performed By: #### 2 4321-2, , 3 #### [facility] CLIA [id number] [address] [place] [address] [place] Creatinine [Mass/Vol] 0.36 mg/dL Low 0.58-0.96 [facility] Comment on above: Order Comment: Speci men Type: BLOOD SPECIMEN [facility] Address: [address] [place] [address] Performed By: #### 2 4321-2, 28715-8, 3015-3 #### [facility] CLIA [id number] [address] [place] Creatinine and Glomerular filtration rate.predicted panel (S/P/Bld) 107 mL/min/1.73m??? Normal >=60 [facility] Comment on above: Order Comment: Vicky montilla Type: BLOOD SPECIMEN [facility] Address: [address] [place] [address] Result Comment: Cecy mated Glomerular Filtration Rate [...] actual GFR. Performed By: #### 2 4321-2, 14680-8, 3 #### [facility] CLIA [id number] [address] [place] [address] [place] Glucose [Mass/Vol] 103 mg/dL High 74-99 [facility] Comment on above: Order Comment: Vicky montilla Type: BLOOD SPECIMEN [facility] Address: [address] [place] [address] Result Comment: The [place] [employer] (ADA) provides guidance for cutoff [...] Standards of Medical Care in Diabetes 2016, [place] [employer]. Diabetes Care. 2016.39(Suppl 1). Performed By: #### 2 4321-2, , 3015-3 #### [facility] CLIA [id number] [address] [place] [address] [place] Potassium [Moles/Vol] 3.5 mmol/L Low 3.7-5.1 [facility] Comment on above: Order Comment: Speci men Type: BLOOD SPECIMEN [facility] Address: [address] [place] [address] Performed By: #### 2 4321-2, , 3015-3 #### [place] [facility] CLIA [id number] [address] [place] [address] [place] Protein [Mass/Vol] 5.9 g/dL Low 6.3-8.0 [facility] Comment on above: Order Comment: Speci men Type: BLOOD SPECIMEN [facility] Address: [address] [place] [address] Performed By: #### 2 1-2, , 3 #### [facility] CLIA [id number] [address] [place] Sodium [Moles/Vol] 138 mmol/L Normal 136-144 [facility] Comment on above: Order Comment: Speci men Type: BLOOD SPECIMEN [facility] Address: [address] [place] [address] Performed By: #### 2 1-2, , 3 #### [facility] CLIA [id number] [address] [place] Urea nitrogen [Mass/Vol] 5 mg/dL Low 7-21 [facility] Comment on above: Order Comment: Speci men Type: BLOOD SPECIMEN [facility] Address: [address] [place] [address] Performed By: #### 2 4321-2, , 3015-3 #### [facility] CLIA [id number] [address] [place] THERAPY NTon 12-16-2024 THERAPY NT HNO ID: [id number] Author: VIANNEY MARINO, OTR/L Service: Occupational Therapy Author Type: Occupational Therapist Type: Therapy (PT/OT/Speech/Resp) Filed: 12/16/2024 11:01 Note Text: Occupational Therapy Evaluation Summary SERVICE DATE: 12/16/2024 SERVICE TIME: 0915 to 09 ROOM: [place] [address] OT 6 Clicks Score: 11 DISCHARGE RECOMMENDATIONS [facility] Recommended Discharge Disposition Comments: D/C OT, patient [...] HOME LIVING Patient Lives With: Facility [facility] ([facility]) Assistance Available: 24-Hour Equipment Owned: Wheelchair- Manual [...] Time (minutes): 28 $ Evaluation - Low (29896) Billed Units: 1 unit TRAINING AND EDUCATION [...] needs SIGNATURE: Vianney Marino OTR/L PATIENT NAME: Ebla Diaz DATE: December 16, 2024 TIME: 11:00 AM Normal [facility] THERAPY NT HNO ID: [id number] Author: DINA MCMANUS PT Service: Physical Therapy Author Type: Physical Therapist Type: Therapy (PT/OT/Speech/Resp) Filed: 12/16/2024 09:51 Note Text: PHYSICAL THERAPY MISSED VISIT SERVICE DATE: 12/16/2024 SERVICE TIME: 949 ROOM: [place] [address] Patient not seen due to Clinical Appropriateness. Patient araseli lift at [facility] prior to hospitalization. Patient able to return to [facility] SIGNATURE: Dina Mcmanus PT PATIENT NAME: Elba Diaz DATE: December 16, 2024 TIME: 9:50 AM Normal [facility] Basic metabolic 2000 panelon 12-15-2024 Anion gap [Moles/Vol] 13 mmol/L Normal 8-15 [facility] Comment on above: Order Comment: Speci men Type: BLOOD SPECIMEN [facility] Address: [address] [place] [address] Performed By: #### 2 4321-2, , 3015-12 #### [facility] CLIA [id number] [address] [place] [address] [place] Calcium [Mass/Vol] 8.3 mg/dL Low 8.5-10.2 [facility] Comment on above: Order Comment: Speci men Type: BLOOD SPECIMEN [facility] Address: [address] [place] [address] Performed By: #### 2 4321-2, , 3015-12 #### [facility] CLIA [id number] [address] [place] [address] [place] Chloride [Moles/Vol] 107 mmol/L Normal 98-107 [facility] Comment on above: Order Comment: Speci men Type: BLOOD SPECIMEN [facility] Address: [address] [place] [address] Performed By: #### 2 4321-2, , 3 #### [facility] CLIA [id number] [address] CO2 [Moles/Vol] 20 mmol/L Low 22-30 [facility] Comment on above: Order Comment: Speci men Type: BLOOD SPECIMEN [facility] Address: [address] [place] [address] Performed By: #### 2 4321-2, , 3 #### [facility] CLIA [id number] [address] Creatinine [Mass/Vol] 0.37 mg/dL Low 0.58-0.96 [facility] Comment on above: Order Comment: Speci men Type: BLOOD SPECIMEN [facility] Address: [address] [place] [address] Performed By: #### 2 4321-2, , 3 #### [facility] CLIA [id number] [address] Creatinine and Glomerular filtration rate.predicted panel (S/P/Bld) 107 mL/min/1.73m??? Normal >=60 [facility] Comment on above: Order Comment: Speci men Type: BLOOD SPECIMEN [facility] Address: [address] [place] [address] Result Comment: Cecy mated Glomerular Filtration Rate [...] #### 2 4321-2, , 3015-3 #### [place] [facility] CLIA [id number] [address] [place] [address] [place] Glucose [Mass/Vol] 73 mg/dL Low 74-99 [facility] Comment on above: Order Comment: Vicky montilla Type: BLOOD SPECIMEN [facility] Address: [address] [place] [address] Result Comment: The [place] [employer] (ADA) provides guidance for cutoff [...] Standards of Medical Care in Diabetes 2016, [place] [employer]. Diabetes Care. 2016.39(Suppl 1). Performed By: #### 2 4321-2, , 3 #### [facility] CLIA [id number] [address] [place] [address] [place] Potassium [Moles/Vol] 3.6 mmol/L Low 3.7-5.1 [facility] Comment on above: Order Comment: Vicky montilla Type: BLOOD SPECIMEN [facility] Address: [address] [place] [address] Performed By: #### 2 4321-2, , 3 #### [facility] CLIA [id number] [address] [place] [address] [place] Sodium [Moles/Vol] 140 mmol/L Normal 136-144 [facility] Comment on above: Order Comment: Vicky montilla Type: BLOOD SPECIMEN [facility] Address: [address] [place] [address] Performed By: #### 2 4321-2, , 3 #### [facility] CLIA [id number] [address] [place] [address] [place] Urea nitrogen [Mass/Vol] 11 mg/dL Normal 7-21 [facility] Comment on above: Order Comment: Speci men Type: BLOOD SPECIMEN [facility] Address: [address] [place] [address] Performed By: #### 2 4321-2, 21689-6, 3016-3 #### [facility] CLIA [id number] [address] [place] [address] [place] CBC panel Auto (Bld)on 12-15 Erythrocyte distribution width (RBC) [Ratio] 12.2 % Normal 11.5-15.0 [facility] Comment on above: Order Comment: Speci men Type: BLOOD SPECIMEN [facility] Address: [address] [place] [address] Performed By: #### 3 0471-7 #### [facility] CLIA [id number] [address] [place] [address] [place] Hematocrit (Bld) [Volume fraction] 33.8 % Low 36.0-46.0 [facility] Comment on above: Order Comment: Speci men Type: BLOOD SPECIMEN [facility] Address: [address] [place] [address] Performed By: #### 3 0471-7 #### [facility] CLIA [id number] [address] [place] [address] [place] Hemoglobin (Bld) [Mass/Vol] 10.9 g/dL Low 11.5-15.5 [facility] Comment on above: Order Comment: Speci men Type: BLOOD SPECIMEN [facility] Address: [address] [place] [address] Performed By: #### 3 0471-7 #### [facility] CLIA [id number] [address] [place] [address] [place] MCH (RBC) [Entitic mass] 33.6 pg Normal 26.0-34.0 [facility] Comment on above: Order Comment: Speci men Type: BLOOD SPECIMEN [facility] Address: [address] [place] [address] Performed By: #### 3 0471-7 #### [facility] CLIA [id number] [address] [place] [address] [place] MCHC (RBC) [Mass/Vol] 32.2 g/dL Normal 30.5-36.0 [facility] Comment on above: Order Comment: Speci men Type: BLOOD SPECIMEN [facility] Address: [address] [place] [address] Performed By: #### 3 0471-7 #### [facility] CLIA [id number] [address] [place] [address] [place] MCV (RBC) [Entitic vol] 104.3 fL High 80.0-100.0 [facility] Comment on above: Order Comment: Speci men Type: BLOOD SPECIMEN [facility] Address: [address] [place] [address] Performed By: #### 3 0471-7 #### [facility] CLIA [id number] [address] [place] [address] [place] Nucleated RBC (Bld) [#/Vol] 10*3/uL Normal <0.01 [facility] Comment on above: Order Comment: Speci men Type: BLOOD SPECIMEN [facility]: [facility] Address: [address] [place] [address] Performed By: #### 3 0471-7 #### [facility] CLIA [id number] [address] [place] [address] [place] Platelet mean volume (Bld) [Entitic vol] 8.9 fL Low 9.0-12.7 [facility] Comment on above: Order Comment: Speci men Type: BLOOD SPECIMEN [facility] Facility: [facility] Address: [address] [place] [address] Performed By: #### 3 0471-7 #### [facility] CLIA [id number] [address] [place] [address] [place] Platelets (Bld) [#/Vol] 109 10*3/uL Low 150-400 [facility] Comment on above: Order Comment: Speci men Type: BLOOD SPECIMEN [facility]: [facility] Address: [address] [place] [address] Performed By: #### 3 0471-7 #### [facility] CLIA [id number] [address] [place] [address] [place] RBC (Bld) [#/Vol] 3.24 10*6/uL Low 3.90-5.20 [facility] Comment on above: Order Comment: Speci men Type: BLOOD SPECIMEN [facility] Facility: [facility] Address: [address] [place] [address] Performed By: #### 3 0471-7 #### [facility] CLIA [id number] [address] [place] [address] [place] WBC (Bld) [#/Vol] 7.76 10*3/uL Normal 3.70-11.00 [facility] Comment on above: Order Comment: Speci men Type: BLOOD SPECIMEN [facility] Facility: [facility] Address: [address] [place] [address] Performed By: #### 3 0471-7 #### [facility] CLIA [id number] [address] [place] [address] [place] CONFIRM BLOOD TYPEon 025 ABO A Normal [facility] Comment on above: Order Comment: Speci men Type: BLOOD SPECIMENOrdering Facility: [facility] Address: [address] [place] [address] Performed By: #### C ONABO ####[facility] BANKCLIA [id number] [place] [address] [place] Rh Nom (Bld) Positive Normal [facility] Comment on above: Order Comment: Speci men Type: BLOOD SPECIMENOrdering Facility: [facility] Address: [address] [place] [address] Performed By: #### C ONABO ####[facility]LO[facility] BANKCLIA [id number] [place] [address] [facility] ED NOTEon 12-15-2024 ED NOTE HNO ID: [id number] Author: LEEANN BRIONES RN Service: ? Author Type: Registered Nurse Type: ED Notes Filed: 12/15/2024 20:50 Note Text: RN report call x2, informed 4100 pt will go up in 15 minutes at this time [facility] ED NOTE HNO ID: [id number] Author: LEEANN BRIONES RN Service: ? Author Type: Registered Nurse Type: ED Notes Filed: 12/15/2024 20:51 Note Text: Report call x1 attempt, no answer [facility] ED NOTE HNO ID: [id number] Author: YENNY HENDERSON RN Service: Emergency Medicine Author Type: Registered Nurse Type: ED Notes Filed: 12/15/2024 18:13 Note Text: Awaiting D5-.09%NaCl with potassium chloride 20 meq from pharmacy [facility] ED NOTE HNO ID: [id number] Author: YENNY HENDERSON RN Service: Emergency Medicine Author Type: Registered Nurse Type: ED Notes Filed: 12/15/2024 18:11 Note Text: Pt given dinner tray at this time [facility] ED NOTE HNO ID: [id number] Author: YENNY HENDERSON RN Service: Emergency Medicine Author Type: Registered Nurse Type: ED Notes Filed: 12/15/2024 13:27 Note Text: Pt given meal tray at this time [facility] ED NOTE HNO ID: [id number] Author: YENNY HENDERSON RN Service: Emergency Medicine Author Type: Registered Nurse Type: ED Notes Filed: 12/15/2024 12:55 Note Text: Pt given a full bed change. Pt has a stage 2 pressure wound on coccyx. Previous Allevyn dressing removed and new one placed at this time. 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 Test performed due to noticing pts Glucose 73 at 0542. [facility] ED NOTE HNO ID: [id number] Author: KAILEE CRAIN RN Service: Nursing Author Type: Registered Nurse Type: ED Notes Filed: 12/15/2024 06:12 Note Text: Called sound and made aware of the hgb drop. Spoke with Dr. Cano, he stated he would let Dr. Carreno know. [facility] ALLIED HEALTHon 12-14-2024 ALLIED HEALTH HNO ID: [id number] Author: ARIANNA DAVIS Tech Service: Radiology Author [...] PATIENT PRESENTS WITH AN IMPLANTABLE OR ATTACHED BEDSPREAD FOLDER: No RADIOLOGY DEPARTMENT: CT; Exam(s) Completed: Brain PERIPHERAL IV DATA: Not applicable SIGNED BY: Karo Degroot December 14, 2024 4:32 PM Normal [facility] CBC W Auto Differential pane l (Bld)on 12-14-2024 Basophils (Bld) [#/Vol] 0.04 10*3/uL Normal <0.11 [facility] Comment on above: Order Comment: Speci men Type: BLOOD SPECIMEN Ordering Facility: [facility] Address: [address] [place] [address] Performed By: #### 3 0471-7 #### [facility] CLIA [id number] [address] [place] [address] [place] Basophils/100 WBC (Bld) 0.5 % Normal [facility] Comment on above: Order Comment: Speci men Type: BLOOD SPECIMEN Ordering Facility: [facility] Address: [address] [place] [address] Performed By: #### 3 0471-7 #### [facility] CLIA [id number] [address] [place] [address] [place] Differential cell count method Nom (Bld) Auto Normal [facility] Comment on above: Order Comment: Speci men Type: BLOOD SPECIMEN Ordering Facility: [facility] Address: [address] [place] [address] Performed By: #### 3 0471-7 #### [facility] CLIA [id number] [address] [place] [address] [place] Eosinophils (Bld) [#/Vol] 0.05 10*3/uL Normal <0.46 [facility] Comment on above: Order Comment: Speci men Type: BLOOD SPECIMEN Ordering Facility: [facility] Address: [address] [place] [address] Performed By: #### 3 0471-7 #### [facility] CLIA [id number] [address] [place], [place] [address] [place] Eosinophils/100 WBC (Bld) 0.6 % Normal [facility] Comment on above: Order Comment: Speci men Type: BLOOD SPECIMEN Ordering Facility: [facility] Address: [address] [place] [address] Performed By: #### 3 0471-7 #### [facility] CLIA [id number] [address] [place] [address] [place] Erythrocyte distribution width (RBC) [Ratio] 12.6 % Normal 11.5-15.0 [facility] Comment on above: Order Comment: Speci men Type: BLOOD SPECIMEN Ordering Facility: [facility] Address: [address] [place] [address] Performed By: #### 3 0471-7 #### [facility] CLIA [id number] [address] [place] [address] [place] Hematocrit (Bld) [Volume fraction] 42.6 % Normal 36.0-46.0 [facility] Comment on above: Order Comment: Speci men Type: BLOOD SPECIMEN Ordering Facility: [facility] Address: [address] [place] [address] Performed By: #### 3 0471-7 #### [facility] CLIA [id number] [address] [place] [address] [place] Hemoglobin (Bld) [Mass/Vol] 13.6 g/dL Normal 11.5-15.5 [facility] Comment on above: Order Comment: Speci men Type: BLOOD SPECIMEN Ordering Facility: [facility] Address: [address] [place] [address] Performed By: #### 3 0471-7 #### [facility] CLIA [id number] [address] [place] [address] [place] Immature granulocytes (Bld) [#/Vol] 0.03 10*3/uL Normal <0.10 [facility] Comment on above: Order Comment: Speci men Type: BLOOD SPECIMEN Ordering Facility: [facility] Address: [address] [place] [address] Performed By: #### 3 0471-7 #### [facility] CLIA [id number] [address] [place] [address] [place] Immature granulocytes/100 WBC (Bld) 0.3 % Normal [facility] Comment on above: Order Comment: Speci men Type: BLOOD SPECIMEN Ordering Facility: [facility] Address: [address] [place] [address] Performed By: #### 3 0471-7 #### [facility] CLIA [id number] [address] [place] [address] [place] Lymphocytes (Bld) [#/Vol] 1.56 10*3/uL Normal 1.00-4.00 [facility] Comment on above: Order Comment: Speci men Type: BLOOD SPECIMEN Ordering Facility: [facility] Address: [address] [place] [address] Performed By: #### 3 0471-7 #### [facility] CLIA [id number] [address] [place] [address] [place] Lymphocytes/100 WBC (Bld) 17.6 % Normal [facility] Comment on above: Order Comment: Speci men Type: BLOOD SPECIMEN Ordering Facility: [facility] Address: [address] [place] [address] Performed By: #### 3 0471-7 #### [facility] CLIA [id number] [address] [place] [address] [place] MCH (RBC) [Entitic mass] 33.3 pg Normal 26.0-34.0 [facility] Comment on above: Order Comment: Speci men Type: BLOOD SPECIMEN Ordering Facility: [facility] Address: [address] [place] [address] Performed By: #### 3 0471-7 #### [facility] CLIA [id number] [address] [place] [address] [place] MCHC (RBC) [Mass/Vol] 31.9 g/dL Normal 30.5-36.0 [facility] Comment on above: Order Comment: Speci men Type: BLOOD SPECIMEN Ordering Facility: [facility] Address: [address] [place] [address] Performed By: #### 3 0471-7 #### [facility] CLIA [id number] [address] [place] [address] [place] MCV (RBC) [Entitic vol] 104.2 fL High 80.0-100.0 [facility] Comment on above: Order Comment: Speci men Type: BLOOD SPECIMEN Ordering Facility: [facility] Address: [address] [place] [address] Performed By: #### 3 0471-7 #### [facility] CLIA [id number] [address] [place] [address] [place] Monocytes (Bld) [#/Vol] 0.83 10*3/uL Normal <0.87 [facility] Comment on above: Order Comment: Speci men Type: BLOOD SPECIMEN Ordering Facility: [facility] Address: [address] [place] [address] Performed By: #### 3 0471-7 #### [facility] CLIA [id number] [address] [place] [address] [place] Monocytes/100 WBC (Bld) 9.3 % Normal [facility] Comment on above: Order Comment: Speci men Type: BLOOD SPECIMEN Ordering Facility: [facility] Address: [address] [place] [address] Performed By: #### 3 0471-7 #### [facility] CLIA [id number] [address] [place] [address] [place] Neutrophils (Bld) [#/Vol] 6.37 10*3/uL Normal 1.45-7.50 [facility] Comment on above: Order Comment: Speci men Type: BLOOD SPECIMEN Ordering Facility: [facility] Address: [address] [place] [address] Performed By: #### 3 0471-7 #### [facility] CLIA [id number] [address] [place] [address] [place] Neutrophils/100 WBC (Bld) 71.7 % Normal [facility] Comment on above: Order Comment: Speci men Type: BLOOD SPECIMEN Ordering Facility: [facility] Address: [address] [place] [address] Performed By: #### 3 0471-7 #### [facility] CLIA [id number] [address] [place] [address] [place] Nucleated RBC (Bld) [#/Vol] 10*3/uL Normal <0.01 [facility] Comment on above: Order Comment: Speci men Type: BLOOD SPECIMEN Ordering Facility: [facility] Address: [address] [place] [address] Performed By: #### 3 0471-7 #### [facility] CLIA [id number] [address] [place] [address] [place] Nucleated RBC/100 WBC (Bld) [Ratio] 0.0 /100 WBC Normal [facility] Comment on above: Order Comment: Speci men Type: BLOOD SPECIMEN Ordering Facility: [facility] Address: [address] [place] [address] Performed By: #### 3 0471-7 #### [facility] CLIA [id number] [address] [place] [address] [place] Platelet mean volume (Bld) [Entitic vol] 9.1 fL Normal 9.0-12.7 [facility] Comment on above: Order Comment: Speci men Type: BLOOD SPECIMEN Ordering Facility: [facility] Address: [address] [place] [address] Performed By: #### 3 0471-7 #### [facility] CLIA [id number] [address] [place] [address] [place] Platelets (Bld) [#/Vol] 152 10*3/uL Normal 150-400 [facility] Comment on above: Order Comment: Speci men Type: BLOOD SPECIMEN Ordering Facility: [facility] Address: [address] [place] [address] Performed By: #### 3 0471-7 #### [facility] CLIA [id number] [address] [place] [address] [place] RBC (Bld) [#/Vol] 4.09 10*6/uL Normal 3.90-5.20 [facility] Comment on above: Order Comment: Speci men Type: BLOOD SPECIMEN Ordering Facility: [facility] Address: [address] [place] [address] Performed By: #### 3 0471-7 #### [facility] CLIA [id number] [address] [place] [address] [place] WBC (Bld) [#/Vol] 8.88 10*3/uL Normal 3.70-11.00 [facility] Comment on above: Order Comment: Speci men Type: BLOOD SPECIMEN Ordering Facility: [facility] Address: [address] [place] [address] Performed By: #### 3 0471-7 #### [facility] CLIA [id number] [address] [place] [address] BRAIN WO IVCONon 12-14-[address] BRAIN WO IVCON * * *Final Report* * * DATE OF EXAM: Dec 14 2024 4:34PM [facility] 0504 - CT BRAIN WO IVCON / [...] changes with no acute intracranial process identified. Lamp Tester And Inspector: ALEXANDRO Transcribe Date/Time: Dec 14 2024 4:59P Dictated by : FANTA WOODWARD MD This examination was interpreted and the report reviewed and electronically signed by: FANTA WOODWARD MD on Dec 14 2024 5:00PM EST [id number] Normal [facility] Comprehensive metabolic 2000 panelon 12-14-2024 Albumin [Mass/Vol] 3.8 g/dL Low 3.9-4.9 [facility] Comment on above: Order Comment: Specjey montilla Type: BLOOD SPECIMEN Ordering Facility: [facility] Address: [address] [place] [address] Performed By: #### 2 4321-2, , 3 #### [facility] CLIA [id number] [address] STATES OF [facility] ALP [Catalytic activity/Vol] 77 U/L Normal 34-123 [facility] Comment on above: Order Comment: Speci eladia Type: BLOOD SPECIMEN Ordering Facility: [facility] Address: [address] [place] [address] Performed By: #### 2 4321-2, , 3 #### [facility] CLIA [id number] [address] [place] ALT With P-5'-P [Catalytic activity/Vol] 17 U/L Normal 7-38 [facility] Comment on above: Order Comment: Speci men Type: BLOOD SPECIMEN Ordering Facility: [facility] Address: [address] [place] [address] Performed By: #### 2 4321-2, , 3 #### [facility] CLIA [id number] [address] STATES OF [facility] Anion gap [Moles/Vol] 14 mmol/L Normal 8-15 [facility] Comment on above: Order Comment: Speci men Type: BLOOD SPECIMEN Ordering Facility: [facility] Address: [address] [place] [address] Performed By: #### 2 4321-2, , 3 #### [facility] CLIA [id number] [address] [place] AST With P-5'-P [Catalytic activity/Vol] 27 U/L Normal 13-35 [facility] Comment on above: Order Comment: Speci men Type: BLOOD SPECIMEN Ordering Facility: [facility] Address: [address] [place] [address] Performed By: #### 2 4321-2, , 3 #### [facility] CLIA [id number] [address] [place] Bilirubin [Mass/Vol] 0.3 mg/dL Normal 0.2-1.3 [facility] Comment on above: Order Comment: Speci men Type: BLOOD SPECIMEN Ordering Facility: [facility] Address: [address] [place] [address] Performed By: #### 2 4321-2, , 3 #### [facility] CLIA [id number] [address] [place] Calcium [Mass/Vol] 9.9 mg/dL Normal 8.5-10.2 [facility] Comment on above: Order Comment: Speci men Type: BLOOD SPECIMEN Ordering Facility: [facility] Address: [address] [place] [address] Performed By: #### 2 4321-2, 84083-5, 6-3 #### [facility] CLIA [id number] [address] [place] [address] [place] Chloride [Moles/Vol] 108 mmol/L High 98-107 [facility] Comment on above: Order Comment: Speci men Type: BLOOD SPECIMEN Ordering Facility: [facility] Address: [address] [place] [address] Performed By: #### 2 4321-2, , 3 #### [facility] CLIA [id number] [address] [place] [address] [place] CO2 [Moles/Vol] 21 mmol/L Low 22-30 [facility] Comment on above: Order Comment: Speci men Type: BLOOD SPECIMEN Ordering Facility: [facility] Address: [address] [place] [address] Performed By: #### 2 4321-2, , 3 #### [facility] CLIA [id number] [address] [place] Creatinine [Mass/Vol] 0.48 mg/dL Low 0.58-0.96 [facility] Comment on above: Order Comment: Speci men Type: BLOOD SPECIMEN Ordering Facility: [facility] Address: [address] [place] [address] Performed By: #### 2 4321-2, , 3 #### [facility] CLIA [id number] [address] Creatinine and Glomerular filtration rate.predicted panel (S/P/Bld) 100 mL/min/1.73m??? Normal >=60 [facility] Comment on above: Order Comment: Speci men Type: BLOOD SPECIMEN Ordering Facility: [facility] Address: [address] [place] [address] Result Comment: Cecy mated Glomerular Filtration Rate [...] By: #### 2 4321-2, , 3015-12 #### [facility] CLIA [id number] [address] [place] [address] [place] Glucose [Mass/Vol] 104 mg/dL High 74-99 [facility] Comment on above: Order Comment: Vicky montilla Type: BLOOD SPECIMEN Ordering Facility: [facility] Address: [address] [place], [place] [address] Result Comment: The [place] [employer] (ADA) provides guidance for cutoff [...] Standards of Medical Care in Diabetes 2016, [place] [employer]. Diabetes Care. 2016.39(Suppl 1). Performed By: #### 2 4321-2, , 3015-12 #### [facility] CLIA [id number] [address] [place] [address] [place] Potassium [Moles/Vol] 4.3 mmol/L Normal 3.7-5.1 [facility] Comment on above: Order Comment: Vicky montilla Type: BLOOD SPECIMEN Ordering Facility: [facility] Address: [address] [place] [address] Performed By: #### 2 4321-2, , 3015-12 #### [facility] CLIA [id number] [address] [place] [address] [place] Protein [Mass/Vol] 7.1 g/dL Normal 6.3-8.0 [facility] Comment on above: Order Comment: Speci men Type: BLOOD SPECIMEN Ordering Facility: [facility] Address: [address] [place] [address] Performed By: #### 2 4321-2, , 3 #### [facility] CLIA [id number] [address] STATES OF [facility] Sodium [Moles/Vol] 143 mmol/L Normal 136-144 [facility] Comment on above: Order Comment: Speci men Type: BLOOD SPECIMEN Ordering Facility: [facility] Address: [address] [place] [address] Performed By: #### 2 4321-2, , 3 #### [facility] CLIA [id number] [address] [place] Urea nitrogen [Mass/Vol] 17 mg/dL Normal 7-21 [facility] Comment on above: Order Comment: Speci men Type: BLOOD SPECIMEN Ordering Facility: [facility] Address: [address] [place] [address] Performed By: #### 2 4321-2, , 3 #### [facility] CLIA [id number] [address] [place] ECG COMPLETEon 12-14-2024 ECG COMPLETE Ventricular Rate : 1 07 BPM Atrial Rate : 107 BPM P-R Interval : 118 ms QRS Duration : 62 ms Q-T Interval : 322 ms QTC Calculation(Bazett) : 429 ms Calculated P [place] : 19 degrees Calculated R [place] : -19 degrees Calculated T [place] : 27 degrees SINUS TACHYCARDIA LOW VOLTAGE QRS NONSPECIFIC ST AND T WAVE ABNORMALITY ABNORMAL ECG WHEN COMPARED WITH ECG OF 03-Nov-2021 12:23, NONSPECIFIC T WAVE ABNORMALITY, IMPROVED IN LATERAL LEADS Confirmed by PINO DONALDSON MD ([id number]) on 02/23/2025 10:17:12 PM NAME : ELBA DIAZ PID : [id number] : 1950 Gender : Female Race : ORD : [id number] Procedure Date : Dec 14 2024 13:46:46 Edit Date : Feb 23 2025 22:17:13 Diagnosis: SINUS TACHYCARDIA LOW VOLTAGE QRS NONSPECIFIC ST AND T WAVE ABNORMALITY ABNORMAL ECG WHEN COMPARED WITH ECG OF 03-Nov-2021 12:23, NONSPECIFIC T WAVE ABNORMALITY, IMPROVED IN LATERAL LEADS Confirmed by PINO DONALDSON MD ([id number]) on 02/23/2025 10:17:12 PM Test Reason : Chest Pain Location : 4 : AKED EM Overread By : PINO DONALDSON MD Edited By : PINO DONALDSON MD Referred By : , Acquired by : GAYATHRI WOMACK [facility] ED NOTEon 12-14-2024 ED NOTE HNO ID: [id number] Author: KAILEE CRAIN, RN Service: Nursing Author Type: Registered Nurse Type: ED Notes Filed: 12/14/2024 22:50 Note Text: Pt woke up from sleeping. When I went in to turn of IV pump and assess her. She kept repeating, "what a neat trick." When asking what trick she replied, "all of this". Then would just repeat it. Normal [facility] ED NOTE HNO ID: [id number] Author: KAILEE CRAIN, RN Service: Nursing Author Type: Registered Nurse Type: ED Notes Filed: 12/14/2024 19:28 Note Text: Pt in on radiographer cardiac catheterization, bp cuff and pulse ox attached. Pts son at bedside [facility] ED NOTE HNO ID: [id number] Author: KAILEE CRAIN, MONAE Service: Nursing Author Type: Registered Nurse Type: ED Notes Filed: 12/14/2024 19:05 Note Text: Pt given a turkey sandwich. Normal [facility] ED NOTE HNO ID: [id number] Author: ESTELLE PANIAGUA, MONAE Service: Emergency Medicine Author Type: Registered Nurse Type: ED Notes Filed: 12/14/2024 13:52 Note Text: Patient arrives via ems from ems with c/o confusion [facility] ED NOTE HNO ID: [id number] Author: PAMELA BALLESTEROS, Medic Service: ? Author Type: Sales Trader and Advertising Copy Writer Type: ED Notes Filed: 12/14/2024 13:47 Note Text: Bed: 22-ED Expected date: Expected time: Means of arrival: Comments: Mel 74yo confusion Normal [facility] ED PROV NOTEon 12-14-2024 ED PROV NOTE HNO ID: [id number] Author: SAMEER FISCHER MD Service: Emergency Medicine [...] encephalopathy versus TIA. ED Course as of 12/15/24 020 Sameer Fischer's Documentation [facility] Dec 15, 2024 020 ED ATTENDING SIGN OUT NOTE Code Status: @EDCODESTATUS@ Presentation / Findings / Interventions / Plan / Items to Follow Up: awaiting inpatient bed Report Given to: Dr. Pemberton SIGNATURE: Sameer Fischer MD PATIENT NAME: Elba Diaz DATE: December 15, 2024 TIME: 2:00 AM PAGER/CONTACT #: Others' Documentation [place] Dec 14, 2024 162 Patient here for [...] Robb Torres MD Clinical Impressions as of 12/15/24 0200 Complicated UTI (urinary tract infection) Altered mental status, unspecified altered mental status type Medical Decision Making Urinalysis returned, does show nitrates with bacteria, will treat for urinary tract infection with Rocephin. CT of the brain unremarkable. Spoke with the [facility] inpatient medical team, who accepted the patient [...] [facility] [place] Emergency Medicine Resident Physician, PGY-2 [facility] This note was created using [employer] dictation software. Every attempt was made to [...] SAMEER FISCHER 12/15/24 0104 Normal [facility] ED PROV NOTE HNO ID: [id number] Author: ROBB TORRES MD Service: Emergency Medicine [...] the resident. ED Course as of 12/15/24 075 Robb Torres's Documentation [place] Dec 14, 2024 1625 Patient here for [...] to address for these etiologies. Others' Documentation [facility] Dec 15, 2024 0200 ED ATTENDING SIGN OUT NOTE Code Status: @EDCODESTATUS@ Presentation / Findings / Interventions / Plan / Items to Follow Up: awaiting inpatient bed Report Given to: Dr. Pemberton SIGNATURE: NICO PizarroATICHRISTIANE NAME: Elba Diaz DATE: December 15, 2024MRN: [id number] TIME: 2:00 AMPAGER/CONTACT #: [JJ] ED Course [...] aide". 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 Normal [facility] HISTORY PHYSICALon HISTORY PHYSICAL HNO ID: [id number] Author: ELIA CARRENO II, MD Service: Hospital Medicine Author Type: Physician Type: H&P Filed: 12/15/2024 01:36 Note Text: DEPARTMENT OF HOSPITAL MEDICINE HISTORY AND PHYSICAL EXAM SERVICE DATE: 12/15/2024 SERVICE TIME: 1:09 AM Primary Care Physician: No primary care provider on file. NIGHT AND WEEKEND COVERAGE: From 7am - 7pm, please call Sound attending After 7pm, please call cross cover pager #[phone] ==== ASSESSMENT AND PLAN: 1) UTI w/ [...] (more content not included)... Normal [facility] Urinalysis complete panel (U )on 12-14-2024 Bacteria LM.HPF (Urine sed) [#/Area] Few Abnormal None Seen [facility] Comment on above: Order Comment: Speci men Type: BLOOD SPECIMEN Ordering Facility: [facility] Address: [address] [place] [address] Performed By: #### 3 0471-7 #### [facility] CLIA [id number] [address] [place] [address] [place] Bilirubin Ql (U) Negative Normal Negative [facility] Comment on above: Order Comment: Speci men Type: BLOOD SPECIMEN Ordering Facility: [facility] Address: [address] [place] [address] Performed By: #### 3 0471-7 #### [facility] CLIA [id number] [address] [place] [address] [place] CALCIUM OXALATE CRYSTALS (UA) Few Abnormal None Seen [facility] Comment on above: Order Comment: Speci men Type: BLOOD SPECIMEN Ordering Facility: [facility] Address: [address] [place] [address] Performed By: #### 3 0471-7 #### [facility] CLIA [id number] [address] [place] [address] [place] Clarity (Unsp spec) Turbid Abnormal Clear [facility] Comment on above: Order Comment: Speci men Type: BLOOD SPECIMEN Ordering Facility: [facility] Address: [address] [place] [address] Performed By: #### 3 0471-7 #### [facility] CLIA [id number] [address] [place] [address] [place] Color (U) Yellow Normal yellow [facility] Comment on above: Order Comment: Speci men Type: BLOOD SPECIMEN Ordering Facility: [facility] Address: [address] [place] [address] Performed By: #### 3 0471-7 #### [facility] CLIA [id number] [address] [place] [address] [place] Epithelial cells LM.HPF (Urine sed) [#/Area] Few Normal [facility] Comment on above: Order Comment: Speci men Type: BLOOD SPECIMEN Ordering Facility: [facility] Address: [address] [place] [address] Performed By: #### 3 0471-7 #### [facility] CLIA [id number] [address] [place] [address] [place] Glucose Test strip (U) [Mass/Vol] Negative Normal Trace, Negative [facility] Comment on above: Order Comment: Speci men Type: BLOOD SPECIMEN Ordering Facility: [facility] Address: [address] [place] [address] Performed By: #### 3 0471-7 #### [facility] CLIA [id number] [address] [place] [address] [place] Hemoglobin Ql (U) 1+ Abnormal Negative, Trace [facility] Comment on above: Order Comment: Speci men Type: BLOOD SPECIMEN Ordering Facility: [facility] Address: [address] [place] [address] Performed By: #### 3 0471-7 #### [facility] CLIA [id number] [address] [place] [address] [place] Ketones Ql (U) 3+ Abnormal Negative, Trace [facility] Comment on above: Order Comment: Speci men Type: BLOOD SPECIMEN Ordering Facility: [facility] Address: [address] [place] [address] Performed By: #### 3 0471-7 #### [facility] CLIA [id number] [address] [place] [address] [place] Leukocyte esterase Test strip Ql (U) Negative Normal Negative, 25 Chong/uL [facility] Comment on above: Order Comment: Speci men Type: BLOOD SPECIMEN Ordering Facility: [facility] Address: [address] [place] [address] Performed By: #### 3 0471-7 #### [facility] CLIA [id number] [address] [place] [address] [place] Nitrite Ql (U) 2+ Abnormal Negative [facility] Comment on above: Order Comment: Speci men Type: BLOOD SPECIMEN Ordering Facility: [facility] Address: [address] [place] [address] Performed By: #### 3 0471-7 #### [facility] CLIA [id number] [address] [place] [address] [place] pH (U) 6.0 [pH] Normal 5.0-8.0 [facility] Comment on above: Order Comment: Speci men Type: BLOOD SPECIMEN Ordering Facility: [facility] Address: [address] [place] [address] Performed By: #### 3 0471-7 #### [facility] CLIA [id number] [address] [place] [address] [place] Protein (U) [Mass/Vol] 2+ Abnormal Trace , Negative [facility] Comment on above: Order Comment: Speci men Type: BLOOD SPECIMEN Ordering Facility: [facility] Address: [address] [place] [address] Performed By: #### 3 0471-7 #### [facility] CLIA [id number] [address] [place] [address] [place] RBC LM.HPF (Urine sed) [#/Area] 3-5 /HPF Abnormal 0-3 /HPF [facility] Comment on above: Order Comment: Speci men Type: BLOOD SPECIMEN Ordering Facility: [facility] Address: [address] [place] [address] Performed By: #### 3 0471-7 #### [facility] CLIA [id number] [address] [place] [address] [place] Specific gravity (U) [Rel density] >1.040 High 1.005-1.030 [facility] Comment on above: Order Comment: Speci men Type: BLOOD SPECIMEN Ordering Facility: [facility] Address: [address] [place] [address] Performed By: #### 3 0471-7 #### [facility] CLIA [id number] [address] [place] [address] [place] Urobilinogen Ql (U) Normal Normal Normal [facility] Comment on above: Order Comment: Speci men Type: BLOOD SPECIMEN Ordering Facility: [facility] Address: [address] [place] [address] Performed By: #### 3 0471-7 #### [facility] CLIA [id number] [address] [place] [address] [place] WBC LM.HPF (Urine sed) [#/Area] 0-5 /HPF Normal 0-5 /HPF [facility] Comment on above: Order Comment: Speci men Type: BLOOD SPECIMEN Ordering Facility: [facility] Address: [address] [place] [address] Performed By: #### 3 0471-7 #### [facility] CLIA [id number] [address] [place] [address] [place] XR CHEST 2V [...] bony density. IMPRESSION: No acute radiographic abnormality. Lamp Tester And Inspector: ALEXANDRO Transcribe Date/Time: Dec 14 2024 3:37P Dictated by : MARCUS RAMESH MD This examination was interpreted and the report reviewed and electronically signed by: MARCUS RAMESH MD on Dec 14 2024 3:39PM EST [id number] Normal [facility] levETIRAcetam SerPl-mCncon 0 12-14-2024 levETIRAcetam [Mass/Vol] ug/mL Low 12.0-46.0 [facility] Comment on above: Order Comment: Speci men Type: BLOOD SPECIMENOrdering Facility: [facility] Address: [address] [place] [address] Result Comment: This test is not suitable [...] and its performance characteristics determined by the [facility] Department of Pathology and Laboratory Medicine. It has not been cleared or approved by the FDA. The [facility] Department of Pathology and Laboratory Medicine is regulated under CLIA as qualified to perform high-complexity testing. This test is used for clinical purposes. It should not be regarded as investigational or for research. Performed By: #### 3 0471-7 ####[facility] [id number] [facility] [id number] [address] [place] Blood urea nitrogen (BUN)/cr eatinine ratioOrdered By: Robb Barnes on 11-27-2024 Urea nitrogen/Creatinine [Mass ratio] 36.1 mg/mg High 10-20 [facility] Carbon dioxide measurementOr dered By: Robb Barnes on 11-27-2024 CO2 [Moles/Vol] 23.0 mmol/L 21.0-32.0 [facility] Chloride measurementOrdered By: Robb Barnes on 11-27-2024 Chloride [Moles/Vol] 110 mmol/L High 98-107 [facility] Estimated glomerular filtrat ion rate (GFR) AmericanOrdered By: Robb Barnes on 11-27-2024 Estimated GFR (MDRD) Amer 166 mL/min >60 [facility] Comment on above: GFR Calc Glomerular filtration rate ( GFR) estimationOrdered By: Robb Barnes on 11-27-2024 Estimated GFR (MDRD) Non-Af Amer 138 mL/min >60 [facility] Comment on above: Non- GFR Calc GFR/1.73 sq M.predicted among non-blacks MDRD (S/P/Bld) [Vol rate/Area] 138 mL/min/{1.73_m2} >60 [facility] Comment on above: Non- GFR Calc Glucose measurementOrdered B y: Robb Barnes on 11-27-2024 Glucose [Mass/Vol] 103 mg/dL 74-106 [facility] Comment on above: Fasting Glucose resu lt from 100 to 125 mg/dL suggests IMPAIRED HOMEOSTASIS per A.D.A. criteria. Potassium measurementOrdered By: Robb Barnes on 11-27-2024 Potassium [Moles/Vol] 3.8 mmol/L 3.5-5.1 [facility] Serum anion gap measurementO rdered By: Robb Barnes on 11-27-2024 Anion gap [Moles/Vol] 7 mmol/L 5-15 [facility] Serum or plasma calcium claudette urement (mass/volume)Ordered By: Robb Barnes on 11-27-2024 Calcium [Mass/Vol] 9.6 mg/dL 8.5-10.1 [facility] Serum or plasma creatinine m easurement (mass/volume)Ordered By: Robb Barnes on 11-27-2024 Creatinine [Mass/Vol] 0.47 mg/dL Low 0.55-1.02 [facility] Comment on above: The validity of the calculated GFR & GFRAA in patients over 70 years has not been determined. Clinical correlation is essential. Serum or plasma urea nitroge n measurement (mass/volume)Ordered By: Robb Barnes on 11-27-2024 Urea nitrogen [Mass/Vol] 17 mg/dL 7-18 [facility] Sodium levelOrdered By: Vern Barnes on 11-27-2024 Sodium [Moles/Vol] 140 mmol/L 136-145 [facility] Valproate levelOrdered By: Darlin Barnes on 11-27-2024 Valproic Acid (Depakene) Level 60 ug/mL 50-100 [facility] Albumin to globulin ratioOrd ered By: Robb Barnes on 10-27-2024 Albumin/Globulin [Mass ratio] 0.8 {ratio} Low 0.9-2.4 [facility] Bilirubin, totalOrdered By: Robb Barnes on 10-27-2024 Bilirubin [Mass/Vol] 0.20 mg/dL 0.20-1.00 [facility] Comment on above: For patients on eltr ombopag therapy, use of Dimension [place] TBIL is not recommended. Blood urea nitrogen (BUN)/cr eatinine ratioOrdered By: Robb Barnes on 10-27-2024 Urea nitrogen/Creatinine [Mass ratio] 51.7 mg/mg High 10-20 [facility] Carbon dioxide measurementOr dered By: Robb Barnes on 10-27-2024 CO2 [Moles/Vol] 22.0 mmol/L 21.0-32.0 [facility] Chloride measurementOrdered By: Robb Barnes on 10-27-2024 Chloride [Moles/Vol] 113 mmol/L High 98-107 [facility] Erythrocyte distribution wid th (RBC) [Ratio]Ordered By: Robb Barnes on 10-27-2024 Erythrocyte distribution width (RBC) [Entitic vol] 58.6 fL High 35.1-43.9 [facility] Erythrocyte distribution wid th ratioOrdered By: Robb Barnes on 10-27-2024 Erythrocyte distribution width (RBC) [Ratio] 14.3 % 11.6-14.6 [facility] Estimated glomerular filtrat ion rate (GFR) AmericanOrdered By: Robb Barnes on 10-27-2024 Estimated GFR (MDRD) Amer 161 mL/min >60 [facility] Comment on above: GFR Calc Glomerular filtration rate ( GFR) estimationOrdered By: Robb Barnes on 10-27-2024 Estimated GFR (MDRD) Non-Af Amer 133 mL/min >60 [facility] Comment on above: Non- GFR Calc Glucose measurementOrdered B y: Robb Barnes on 10-27-2024 Glucose [Mass/Vol] 93 mg/dL 74-106 [facility] Hematocrit Auto (Bld) [Volum e fraction]Ordered By: Robb Barnes on 10-27-2024 Hematocrit (Bld) [Volume fraction] 34.7 % Low 37-47 [facility] Hemoglobin measurementOrdere d By: Robb Barnes on 10-27-2024 Hemoglobin (Bld) [Mass/Vol] 10.8 g/dL Low 12.0-15.0 [facility] High density lipoprotein (HD L) measurementOrdered By: Robb Barnes on 10-27-2024 Cholesterol in HDL [Mass/Vol] 48 mg/dL >40 [facility] Comment on above: The drugs N-Acetylcy steine and Metamizole may falsely depress this assay. Reference Range HDL <40 mg/dL Low HDL Cholesterol HDL >or= 60 mg/dL High HDL Cholesterol Iron (Unsp spec) [Mass/Mass] Ordered By: Robb Barnes on 10-27-2024 Iron [Mass/Vol] 47 ug/dL Low 50-170 [facility] Laboratory - Chemistry and C hemistry - challengeOrdered By: Robb Barnes on 10-27-2024 AST [Catalytic activity/Vol] 20 U/L 15-37 [facility] Low density lipoprotein (LDL ) cholesterol measurementOrdered By: Robb Barnes on 10-27-2024 Cholesterol in LDL [Mass/Vol] 64 mg/dL 0-130 [facility] MCV (mean corpuscular volume ) determinationOrdered By: Robb Barnes on 10-27-2024 MCV (RBC) [Entitic vol] 109.5 fL High 81-99 [facility] Magnesium measurementOrdered By: Robb Barnes on 10-27-2024 Magnesium [Mass/Vol] 2.2 mg/dL 1.6-2.6 [facility] Mean corpuscular hemoglobin (MCH) determinationOrdered By: Robb Barnes on 10-27-2024 MCH (RBC) [Entitic mass] 34.1 pg High 27.0-32.0 [facility] Mean corpuscular hemoglobin concentration (MCHC) determinationOrdered By: Robb Barnes on 10-27-2024 MCHC (RBC) [Mass/Vol] 31.1 g/dL Low 32-36 [facility] Mean platelet volume determi nationOrdered By: Robb Barnes on 10-27-2024 Platelet mean volume (Bld) [Entitic vol] 9.2 fL 6.2-12.0 [facility] Platelet countOrdered By: Ramila Barnes on 10-27-2024 Platelets (Bld) [#/Vol] 128 10*3/uL Low 150-450 [facility] Potassium measurementOrdered By: Robb Barnes on 10-27-2024 Potassium [Moles/Vol] 4.1 mmol/L 3.5-5.1 [facility] RBC Auto (Bld) [#/Vol]Ordere d By: Robb Barnes on 10-27-2024 RBC (Bld) [#/Vol] 3.17 10*6/uL Low 4.2-5.4 [facility] Serum anion gap measurementO rdered By: Robb Barnes on 10-27-2024 Anion gap [Moles/Vol] 6 mmol/L 5-15 [facility] Serum globulin measurementOr dered By: Robb Barnes on 10-27-2024 Globulin (S) [Mass/Vol] 3.7 g/dL 2.2-4.2 [facility] Serum or plasma alanine timmons otransferase (ALT) measurementOrdered By: Robb Barnes on 10-27-2024 ALT [Catalytic activity/Vol] 15 U/L 13-56 [facility] Serum or plasma albumin claudette urement (mass/volume)Ordered By: Robb Barnes on 10-27-2024 Albumin [Mass/Vol] 2.8 g/dL Low 3.2-5.0 [facility] Serum or plasma alkaline karson sphatase measurementOrdered By: Robb Barnes on 10-27-2024 ALP [Catalytic activity/Vol] 52 U/L 45-117 [facility] Serum or plasma calcium claudette urement (mass/volume)Ordered By: Robb Barnes on 10-27-2024 Calcium [Mass/Vol] 9.3 mg/dL 8.5-10.1 [facility] Serum or plasma cholesterol measurement (mass/volume)Ordered By: Robb Barnes on 10-27-2024 Cholesterol [Mass/Vol] 135 mg/dL <200 [facility] Comment on above: <200 mg/dL Desirable 200-240 mg/dL Borderline >240 mg/dL High Risk Serum or plasma creatinine m easurement (mass/volume)Ordered By: Robb Barnes on 10-27-2024 Creatinine [Mass/Vol] 0.48 mg/dL Low 0.55-1.02 [facility] Comment on above: The validity of the calculated GFR & GFRAA in patients over 70 years has not been determined. Clinical correlation is essential. Serum or plasma urea nitroge n measurement (mass/volume)Ordered By: Robb Barnes on 10-27-2024 Urea nitrogen [Mass/Vol] 25 mg/dL High 7-18 [facility] Sodium levelOrdered By: Vern Barnes on 10-27-2024 Sodium [Moles/Vol] 141 mmol/L 136-145 [facility] Total proteinOrdered By: Renan Barnes on 10-27-2024 Protein [Mass/Vol] 6.5 g/dL 6.4-8.2 [facility] Triglycerides measurementOrd ered By: Robb Barnes on 10-27-2024 Triglyceride [Mass/Vol] 116 mg/dL <199 [facility] Comment on above: The drugs N-Acetylcy steine and Metamizole may falsely depress this assay.Serum Triglycerides Reference Interval Normal <150 mg/dL Borderline high 150 - 199 mg/dL High 200 - 499 mg/dL Very High > or = 500 mg/dL Very low density lipoprotein (VLDL) cholesterol measurementOrdered By: Robb Barnes on 10-27-2024 VLDL Cholesterol 23 mg/dL 5-40 [facility] White blood cell (WBC) count Ordered By: Robb Barnes on 10-27-2024 WBC (Bld) [#/Vol] 5.6 10*3/uL 4.4-11.0 [facility] Serum or plasma thyroid stim ulating hormone (TSH) measurement (units/volume)Ordered By: Robb Barnes on 12-24-2023 TSH Qn 0.30 uIU/mL 0.358-3.74 [facility] Serum or plasma thyroxine (T 4) measurement (mass/volume)Ordered By: Robb Barnes on 11-13-2023 T4 [Mass/Vol] 9.1 ug/dL 4.8-13.9 [facility] Serum or plasma triiodothyro nine measurement by immunoassay (mass/volume)Ordered By: Robb Barnes on 11-13-2023 T3 IA [Mass/Vol] 0.82 ng/mL 0.6-1.81 [facility] Basophil percentageOrdered B y: Robb Barnes on 11-08-2023 Bilirubin [Mass/Vol] 0.30 mg/dL 0.20-1.00 [facility] Comment on above: For patients on eltr ombopag therapy, use of Dimension [place] TBIL is not recommended. Chloride [Moles/Vol] 108 mmol/L 98-107 [facility] Glucose [Mass/Vol] 94 mg/dL 74-106 [facility] Hemoglobin (Bld) [Mass/Vol] 12.0 g/dL 12.0-15.0 [facility] Potassium [Moles/Vol] 4.0 mmol/L 3.5-5.1 [facility] Protein [Mass/Vol] 6.6 g/dL 6.4-8.2 [facility] Sodium [Moles/Vol] 139 mmol/L 136-145 [facility] WBC (Bld) [#/Vol] 6.2 10*3/uL 4.4-11.0 [facility] Determination of erythrocyte mean corpuscular volume (MCV)Ordered By: Robb Barnes on 11-08-2023 MCV (RBC) [Entitic vol] 102.0 fL 81-99 [facility] Erythrocyte distribution wid th ratioOrdered By: Robb Barnes on 11-08-2023 Erythrocyte distribution width (RBC) [Ratio] 11.8 % 11.6-14.6 [facility] Erythrocyte distribution wid th standard deviationOrdered By: Robb Barnes on 11-08-2023 Erythrocyte distribution width (RBC) [Entitic vol] 44.2 fL 35.1-43.9 [facility] Erythrocyte sedimentation ra teOrdered By: Robb Barnes on 11-08-2023 ESR (Bld) [Velocity] 6 mm/h 0-30 [facility] Hematocrit Auto (Bld) [Volum e fraction]Ordered By: Robb Barnes on 11-08-2023 Hematocrit (Bld) [Volume fraction] 36.4 % 37-47 [facility] Laboratory - Chemistry and C hemistry - challengeOrdered By: Robb Barnes on 11-08-2023 Albumin/Globulin [Mass ratio] 0.8 {ratio} 0.9-2.4 [facility] ALP [Catalytic activity/Vol] 71 U/L 45-117 [facility] ALT [Catalytic activity/Vol] 14 U/L 13-56 [facility] CO2 [Moles/Vol] 28.0 mmol/L 21.0-32.0 [facility] Globulin (S) [Mass/Vol] 3.7 g/dL 2.2-4.2 [facility] Urea nitrogen/Creatinine [Mass ratio] 29.9 mg/mg 10-20 [facility] Laboratory - Hematology and Cell countsOrdered By: Robb Barnes on 11-08-2023 MCH (RBC) [Entitic mass] 33.6 pg 27.0-32.0 [facility] MCHC (RBC) [Mass/Vol] 33.0 g/dL 32-36 [facility] Platelets (Bld) [#/Vol] 150 10*3/uL 150-450 [facility] No Panel InformationOrdered By: Robb Barnes on 11-08-2023 Estimated GFR (MDRD) Amer 95 mL/min >60 [facility] Comment on above: GFR Calc Estimated GFR (MDRD) Non-Af Amer 78 mL/min >60 [facility] Comment on above: Non- GFR Calc Platelet mean volume Marcelo-Ec ker (Bld) [Entitic vol]Ordered By: Robb Barnes on 11-08-2023 Platelet mean volume (Bld) [Entitic vol] 9.1 fL 6.2-12.0 [facility] RBC Auto (Bld) [#/Vol]Ordere d By: Robb Barnes on 11-08-2023 RBC (Bld) [#/Vol] 3.57 10*6/uL 4.2-5.4 [facility] Serum or plasma calcium claudette urement (mass/volume)Ordered By: Robb Barnes on 11-08-2023 Calcium [Mass/Vol] 9.3 mg/dL 8.5-10.1 [facility] Serum or plasma creatinine m easurement (mass/volume)Ordered By: Robb Barnes on 11-08-2023 Creatinine [Mass/Vol] 0.77 mg/dL 0.55-1.02 [facility] Comment on above: The validity of the calculated GFR & GFRAA in patients over 70 years has not been determined. Clinical correlation is essential. Serum or plasma thyroid stim ulating hormone (TSH) measurement (units/volume)Ordered By: Robb Barnes on 11-08-2023 TSH Qn 9.02 uIU/mL 0.358-3.74 [facility] Serum or plasma urea nitroge n measurement (mass/volume)Ordered By: Robb Barnes on 11-08-2023 Urea nitrogen [Mass/Vol] 23 mg/dL 7-18 [facility] Thin prep Papanicolaou smear with manual screeningOrdered By: Robb Barnes on 11-08-2023 Thin prep Papanicolaou smear with manual screening 2.9 g/dL 3.2-5.0 [facility] Thin prep Papanicolaou smear with manual screening 13 U/L 15-37 [facility] Thin prep Papanicolaou smear with manual screening 3 5-15 [facility] Laboratory - Chemistry and C hemistry - challengeOrdered By: Robb Barnes on 08-24-2023 T4 [Mass/Vol] 8.5 ug/dL 4.8-13.9 [facility] No Panel InformationOrdered By: Robb Barnes on 08-24-2023 Thyroid Stimulating Hormone (TSH) 1.26 uIU/mL 0.358-3.74 [facility] Total Triiodothyronine 0.94 ng/mL 0.6-1.81 [facility] Basophil percentageOrdered B y: Robb Barnes on 08-03-2023 Ammonia (P) [Moles/Vol] 46.0 umol/L 11-32 [facility] Iron measurement (mass/mass) Ordered By: Robb Barnes on 08-03-2023 Iron (Unsp spec) [Mass/Mass] 99 ug/dL 50-170 [facility] Laboratory - Chemistry and C hemistry - challengeOrdered By: Robb Barnes on 08-03-2023 Magnesium [Mass/Vol] 2.0 mg/dL 1.6-2.6 [facility] Transferrin [Mass/Vol] 179 mg/dL 192-364 [facility] Comment on above: Performed at: [place] [id number] Director: Angel Franklin PhD, Phone: [phone] No Panel InformationOrdered By: Robb Barnes on 08-03-2023 Total Iron Binding Capacity 227 ug/dL 250-450 [facility] Valproic Acid (Depakene) Level 74 ug/mL 50-100 [facility] Serum or plasma ferritin dionisio surement (mass/volume)Ordered By: Robb Barnes on 08-03-2023 Ferritin [Mass/Vol] 126 ng/mL 8-252 [facility] Serum or plasma iron saturat ion measurement (mass fraction)Ordered By: Robb Barnes on 08-03-2023 Iron saturation [Mass fraction] 43.6 % 15.0-55.0 [facility] No Panel InformationOrdered By: Robb Barnes on 06-07-2023 Thyroid Stimulating Hormone (TSH) 2.42 uIU/mL 0.358-3.74 [facility] Basophil percentageOrdered B y: Robb Barnes on 03-20-2023 Bilirubin [Mass/Vol] 0.30 mg/dL 0.20-1.00 [facility] Comment on above: For patients on eltr ombopag therapy, use of Dimension [place] TBIL is not recommended. Chloride [Moles/Vol] 112 mmol/L 98-107 [facility] Cholesterol [Mass/Vol] 128 mg/dL <200 [facility] Comment on above: <200 mg/dL Desirable 200-240 mg/dL Borderline >240 mg/dL High Risk Glucose [Mass/Vol] 76 mg/dL 74-106 [facility] Potassium [Moles/Vol] 4.3 mmol/L 3.5-5.1 [facility] Protein [Mass/Vol] 5.9 g/dL 6.4-8.2 [facility] Sodium [Moles/Vol] 143 mmol/L 136-145 [facility] Triglyceride [Mass/Vol] 98 mg/dL <199 [facility] Comment on above: The drugs N-Acetylcy steine and Metamizole may falsely depress this assay.Serum Triglycerides Reference Interval Normal <150 mg/dL Borderline high 150 - 199 mg/dL High 200 - 499 mg/dL Very High > or = 500 mg/dL WBC (Bld) [#/Vol] 5.9 10*3/uL 4.4-11.0 [facility] Blood erythrocytes count (nu mber/volume)Ordered By: Robb Barnes on 03-20-2023 RBC (Bld) [#/Vol] 3.49 10*6/uL 4.2-5.4 [facility] Blood hemoglobin measurement (mass/volume)Ordered By: Robb Barnes on 03-20-2023 Hemoglobin (Bld) [Mass/Vol] 12.0 g/dL 12.0-15.0 [facility] Blood platelet mean volumeOr dered By: Robb Barnes on 03-20-2023 Platelet mean volume (Bld) [Entitic vol] 9.1 fL 6.2-12.0 [facility] Determination of erythrocyte mean corpuscular volume (MCV)Ordered By: Robb Barnes on 03-20-2023 MCV (RBC) [Entitic vol] 104.3 fL 81-99 [facility] Erythrocyte sedimentation ra teOrdered By: Robb Barnes on 03-20-2023 ESR (Bld) [Velocity] 6 mm/h 0-30 [facility] Hematocrit Auto (Bld) [Volum e fraction]Ordered By: Robb Barnes on 03-20-2023 Hematocrit (Bld) [Volume fraction] 36.4 % 37-47 [facility] Laboratory - Chemistry and C hemistry - challengeOrdered By: Robb Barnes on 05-30-2023 ALP [Catalytic activity/Vol] 63 U/L 45-117 [facility] ALT [Catalytic activity/Vol] 13 U/L 13-56 [facility] CO2 [Moles/Vol] 26.0 mmol/L 21.0-32.0 [facility] Globulin (S) [Mass/Vol] 3.5 g/dL 2.2-4.2 [facility] Urea nitrogen/Creatinine [Mass ratio] 29.9 mg/mg 10-20 [facility] Laboratory - Hematology and Cell countsOrdered By: Robb Barnes on 03-20-2023 Erythrocyte distribution width (RBC) [Entitic vol] 46.9 fL 35.1-43.9 [facility] Erythrocyte distribution width (RBC) [Ratio] 12.4 % 11.6-14.6 [facility] MCH (RBC) [Entitic mass] 34.4 pg 27.0-32.0 [facility] MCHC Auto (RBC) [Mass/Vol]Or dered By: Robb Barnes on 03-20-2023 MCHC (RBC) [Mass/Vol] 33.0 g/dL 32-36 [facility] No Panel InformationOrdered By: Robb Barnes on 03-20-2023 Estimated GFR (MDRD) Amer 95 mL/min >60 [facility] Comment on above: GFR Calc Estimated GFR (MDRD) Non-Af Amer 79 mL/min >60 [facility] Comment on above: Non- GFR Calc Thyroid Stimulating Hormone (TSH) 4.07 uIU/mL 0.358-3.74 [facility] Vitamin D 25-Hydroxy 73.1 ng/mL [facility] Comment on above: Vitamin D 25(OH) Sta tus Range Deficiency <20 ng/mL (50nmol/L) Insufficiency 20 - 30 ng/mL (50 - 75 nmol/L) Sufficiency 30 - 100 ng/mL (75 - 250 nmol/L) Toxicity >100 ng/mL (>250 nmol/L) Platelets bldOrdered By: Renan Barnes on 03-20-2023 Platelets (Bld) [#/Vol] 108 10*3/uL 150-450 [facility] Serum or plasma albumin claudette urement (mass/volume)Ordered By: Robb Barnes on 03-20-2023 Albumin [Mass/Vol] 2.4 g/dL 3.2-5.0 [facility] Serum or plasma albumin/glob ulin mass ratioOrdered By: Robb Barnes on 03-20-2023 Albumin/Globulin [Mass ratio] 0.7 {ratio} 0.9-2.4 [facility] Serum or plasma calcium claudette urement (mass/volume)Ordered By: Robb Barnes on 03-20-2023 Calcium [Mass/Vol] 8.7 mg/dL 8.5-10.1 [facility] Serum or plasma cholesterol in HDL measurement (mass/volume)Ordered By: Robb Barnes on 03-20-2023 Cholesterol in HDL [Mass/Vol] 36 mg/dL >40 [facility] Comment on above: The drugs N-Acetylcy steine and Metamizole may falsely depress this assay. Reference Range HDL <40 mg/dL Low HDL Cholesterol HDL >or= 60 mg/dL High HDL Cholesterol Serum or plasma cholesterol in VLDL measurement (mass/volume)Ordered By: Robb Barnes on 03-20-2023 Cholesterol in VLDL [Mass/Vol] 20 mg/dL 5-40 [facility] Serum or plasma creatinine m easurement (mass/volume)Ordered By: Robb Barnes on 03-20-2023 Creatinine [Mass/Vol] 0.77 mg/dL 0.55-1.02 [facility] Comment on above: The validity of the calculated GFR & GFRAA in patients over 70 years has not been determined. Clinical correlation is essential. Serum or plasma low density lipoprotein (LDL) cholesterol measurement (mass/volume)Ordered By: Robb Barnes on 03-20-2023 Cholesterol in LDL [Mass/Vol] 72 mg/dL 0-130 [facility] Serum or plasma urea nitroge n measurement (mass/volume)Ordered By: Robb Barnes on 03-20-2023 Urea nitrogen [Mass/Vol] 23 mg/dL 7-18 [facility] Thin prep Papanicolaou smear with manual screeningOrdered By: Robb Barnes on 03-20-2023 Thin prep Papanicolaou smear with manual screening 17 U/L 15-37 [facility] Thin prep Papanicolaou smear with manual screening 5 5-15 [facility] Basophil percentageOrdered B y: Robb Barnes on 01-04-2023 Chloride [Moles/Vol] 111 mmol/L 98-107 [facility] Cholesterol [Mass/Vol] 124 mg/dL <200 [facility] Comment on above: <200 mg/dL Desirable 200-240 mg/dL Borderline >240 mg/dL High Risk Glucose [Mass/Vol] 86 mg/dL 74-106 [facility] Potassium [Moles/Vol] 3.8 mmol/L 3.5-5.1 [facility] Sodium [Moles/Vol] 143 mmol/L 136-145 [facility] Triglyceride [Mass/Vol] 166 mg/dL <199 [facility] Comment on above: The drugs N-Acetylcy steine and Metamizole may falsely depress this assay.Serum Triglycerides Reference Interval Normal <150 mg/dL Borderline high 150 - 199 mg/dL High 200 - 499 mg/dL Very High > or = 500 mg/dL WBC (Bld) [#/Vol] 5.9 10*3/uL 4.4-11.0 [facility] Blood erythrocytes count (nu mber/volume)Ordered By: Robb Barnes on 01-04-2023 RBC (Bld) [#/Vol] 3.20 10*6/uL 4.2-5.4 [facility] Blood hemoglobin measurement (mass/volume)Ordered By: Robb Barnes on 01-04-2023 Hemoglobin (Bld) [Mass/Vol] 10.8 g/dL 12.0-15.0 [facility] Blood platelet mean volumeOr dered By: Robb Barnes on 01-04-2023 Platelet mean volume (Bld) [Entitic vol] 9.0 fL 6.2-12.0 [facility] Determination of erythrocyte mean corpuscular volume (MCV)Ordered By: Robb Barnes on 01-04-2023 MCV (RBC) [Entitic vol] 103.4 fL 81-99 [facility] Hematocrit Auto (Bld) [Volum e fraction]Ordered By: Robb Barnes on 01-04-2023 Hematocrit (Bld) [Volume fraction] 33.1 % 37-47 [facility] Laboratory - Chemistry and C hemistry - challengeOrdered By: Robb Barnes on 01-04-2023 CO2 [Moles/Vol] 25.0 mmol/L 21.0-32.0 [facility] Magnesium [Mass/Vol] 2.0 mg/dL 1.6-2.6 [facility] Urea nitrogen/Creatinine [Mass ratio] 30.1 mg/mg 10-20 [facility] Laboratory - Hematology and Cell countsOrdered By: Robb Barnes on 01-04-2023 Erythrocyte distribution width (RBC) [Entitic vol] 45.2 fL 35.1-43.9 [facility] Erythrocyte distribution width (RBC) [Ratio] 11.9 % 11.6-14.6 [facility] MCH (RBC) [Entitic mass] 33.8 pg 27.0-32.0 [facility] MCHC Auto (RBC) [Mass/Vol]Or dered By: Robb Barnes on 01-04-2023 MCHC (RBC) [Mass/Vol] 32.6 g/dL 32-36 [facility] No Panel InformationOrdered By: Robb Barnes on 01-04-2023 Estimated GFR (MDRD) Amer 119 mL/min >60 [facility] Comment on above: GFR Calc Estimated GFR (MDRD) Non-Af Amer 99 mL/min >60 [facility] Comment on above: Non- GFR Calc Thyroid Stimulating Hormone (TSH) 0.32 uIU/mL 0.358-3.74 [facility] Platelets bldOrdered By: Renan Barnes on 01-04-2023 Platelets (Bld) [#/Vol] 141 10*3/uL 150-450 [facility] Serum or plasma calcium claudette urement (mass/volume)Ordered By: Robb Barnes on 01-04-2023 Calcium [Mass/Vol] 9.0 mg/dL 8.5-10.1 [facility] Serum or plasma cholesterol in HDL measurement (mass/volume)Ordered By: Robb Barnes on 01-04-2023 Cholesterol in HDL [Mass/Vol] 32 mg/dL >40 [facility] Comment on above: The drugs N-Acetylcy steine and Metamizole may falsely depress this assay. Reference Range HDL <40 mg/dL Low HDL Cholesterol HDL >or= 60 mg/dL High HDL Cholesterol Serum or plasma cholesterol in VLDL measurement (mass/volume)Ordered By: Robb Barnes on 01-04-2023 Cholesterol in VLDL [Mass/Vol] 33 mg/dL 5-40 [facility] Serum or plasma creatinine m easurement (mass/volume)Ordered By: Robb Barnes on 01-04-2023 Creatinine [Mass/Vol] 0.63 mg/dL 0.55-1.02 [facility] Comment on above: The validity of the calculated GFR & GFRAA in patients over 70 years has not been determined. Clinical correlation is essential. Serum or plasma low density lipoprotein (LDL) cholesterol measurement (mass/volume)Ordered By: Robb Barnes on 01-04-2023 Cholesterol in LDL [Mass/Vol] 59 mg/dL 0-130 [facility] Serum or plasma urea nitroge n measurement (mass/volume)Ordered By: Robb Barnes on 01-04-2023 Urea nitrogen [Mass/Vol] 19 mg/dL 7-18 [facility] Thin prep Papanicolaou smear with manual screeningOrdered By: Robb Barnes on 01-04-2023 Thin prep Papanicolaou smear with manual screening 7 5-15 [facility] No Panel Informationon 09-13 Valproic Acid (Depakene) Level 76 ug/mL 50-100 [facility] Work Phone: Basophil percentageon 2021 Bilirubin [Mass/Vol] 0.20 mg/dL 0.20-1.00 [facility] Work Phone: Comment on above: For patients on eltr ombopag therapy, use of Dimension [place] TBIL is not recommended. Chloride [Moles/Vol] 106 mmol/L 98-107 [facility] Work Phone: Glucose [Mass/Vol] 66 mg/dL 74-106 [facility] Work Phone: Potassium [Moles/Vol] 3.8 mmol/L 3.5-5.1 [facility] Work Phone: Protein [Mass/Vol] 5.7 g/dL 6.4-8.2 [facility] Work Phone: Sodium [Moles/Vol] 140 mmol/L 136-145 [facility] Work Phone: [phone] WBC (Bld) [#/Vol] 8.8 10*3/uL 4.4-11.0 [facility] Work Phone: [phone] Blood erythrocytes count (nu mber/volume)on 08-03-2022 RBC (Bld) [#/Vol] 3.09 10*6/uL 4.2-5.4 [facility] Work Phone: [phone] Blood hemoglobin measurement (mass/volume)on 08-03-2022 Hemoglobin (Bld) [Mass/Vol] 10.5 g/dL 12.0-15.0 [facility] Work Phone: [phone] Blood platelet mean volumeon 08-03-2022 Platelet mean volume (Bld) [Entitic vol] 8.1 fL 6.2-12.0 [facility] Work Phone: [phone] Determination of erythrocyte mean corpuscular volume (MCV)on 08-03-2022 MCV (RBC) [Entitic vol] 106.5 fL 81-99 [facility] Work Phone: [phone] Direct bilirubinon Bilirubin.direct [Mass/Vol] 0.05 mg/dL 0.00-0.30 [facility] Work Phone: [phone] Hematocrit Auto (Bld) [Volum e fraction]on 08-03-2022 Hematocrit (Bld) [Volume fraction] 32.9 % 37-47 [facility] Work Phone: [phone] INR in Blood by Coagulation assayon 08-03-2022 INR Coag (Bld) [Relative time] 1.0 {INR} [facility] Work Phone: [phone] Laboratory - Chemistry and C hemistry - challengeon 08-03-2022 ALP [Catalytic activity/Vol] 59 U/L 45-117 [facility] Work Phone: [phone] ALT [Catalytic activity/Vol] 13 U/L 13-56 [facility] Work Phone: CO2 [Moles/Vol] 28.0 mmol/L 21.0-32.0 [facility] Work Phone: [phone] Globulin (S) [Mass/Vol] 3.8 g/dL 2.2-4.2 [facility] Work Phone: [phone] Urea nitrogen/Creatinine [Mass ratio] 31.8 mg/mg 10-20 [facility] Work Phone: Laboratory - Coagulationon 1 aPTT Coag (Bld) [Time] 27.0 s 24.1-36.2 [facility] Work Phone: [phone] PT Coag (PPP) [Time] 12.7 s 11.7-14.9 [facility] Work Phone: [phone] Laboratory - Hematology and Cell countson 08-03-2022 Erythrocyte distribution width (RBC) [Entitic vol] 49.4 fL 35.1-43.9 [facility] Work Phone: [phone] Erythrocyte distribution width (RBC) [Ratio] 12.9 % 11.6-14.6 [facility] Work Phone: MCH (RBC) [Entitic mass] 34.0 pg 27.0-32.0 [facility] Work Phone: MCHC Auto (RBC) [Mass/Vol]on 08-03-2022 MCHC (RBC) [Mass/Vol] 31.9 g/dL 32-36 [facility] Work Phone: No Panel Informationon 08-03 Estimated GFR (MDRD) Amer 145 mL/min >60 [facility] Work Phone: [phone] Comment on above: GFR Calc Estimated GFR (MDRD) Non-Af Amer 120 mL/min >60 [facility] Work Phone: [phone] Comment on above: Non- GFR Calc Platelets bldon 08-03-2022 Platelets (Bld) [#/Vol] 122 10*3/uL 150-450 [facility] Work Phone: Serum or plasma albumin claudette urement (mass/volume)on 08-03-2022 Albumin [Mass/Vol] 1.9 g/dL 3.2-5.0 [facility] Work Phone: [phone] Serum or plasma calcium claudette urement (mass/volume)on 08-03-2022 Calcium [Mass/Vol] 8.7 mg/dL 8.5-10.1 [facility] Work Phone: [phone] Serum or plasma creatinine m easurement (mass/volume)on 08-03-2022 Creatinine [Mass/Vol] 0.54 mg/dL 0.55-1.02 [facility] Work Phone: Comment on above: The validity of the calculated GFR & GFRAA in patients over 70 years has not been determined. Clinical correlation is essential. Serum or plasma urea nitroge n measurement (mass/volume)on 08-03-2022 Urea nitrogen [Mass/Vol] 17 mg/dL 7-18 [facility] Work Phone: Thin prep Papanicolaou smear with manual screeningon 08-03-2022 Thin prep Papanicolaou smear with manual screening 18 U/L 15-37 [facility] Work Phone: Thin prep Papanicolaou smear with manual screening 6 5-15 [facility] Work Phone: Basophil percentageon 2021 Bilirubin [Mass/Vol] 0.20 mg/dL 0.20-1.00 [facility] Work Phone: Comment on above: For patients on eltr ombopag therapy, use of Dimension [place] TBIL is not recommended. Chloride [Moles/Vol] 111 mmol/L 98-107 [facility] Work Phone: Glucose [Mass/Vol] 81 mg/dL 74-106 [facility] Work Phone: [phone] Potassium [Moles/Vol] 3.9 mmol/L 3.5-5.1 [facility] Work Phone: [phone] Protein [Mass/Vol] 5.6 g/dL 6.4-8.2 [facility] Work Phone: Sodium [Moles/Vol] 143 mmol/L 136-145 [facility] Work Phone: [phone] WBC (Bld) [#/Vol] 8.0 10*3/uL 4.4-11.0 [facility] Work Phone: Bilirubin Test strip Ql (U)o n 06-25-2022 Bilirubin Ql (U) Negative Negative [facility] Work Phone: [phone] Blood erythrocytes count (nu mber/volume)on 06-25-2022 RBC (Bld) [#/Vol] 3.52 10*6/uL 4.2-5.4 [facility] Work Phone: [phone] Blood hemoglobin measurement (mass/volume)on 06-25-2022 Hemoglobin (Bld) [Mass/Vol] 11.9 g/dL 12.0-15.0 [facility] Work Phone: [phone] Blood platelet mean volumeon 06-25-2022 Platelet mean volume (Bld) [Entitic vol] 8.4 fL 6.2-12.0 [facility] Work Phone: [phone] Determination of erythrocyte mean corpuscular volume (MCV)on 06-25-2022 MCV (RBC) [Entitic vol] 104.3 fL 81-99 [facility] Work Phone: [phone] Hematocrit Auto (Bld) [Volum e fraction]on 06-25-2022 Hematocrit (Bld) [Volume fraction] 36.7 % 37-47 [facility] Work Phone: Ketones Test strip Ql (U)on 06-25-2022 Ketones Ql (U) 5 mg/dl Negative [facility] Work Phone: Laboratory - Chemistry and C hemistry - challengeon 06-25-2022 ALP [Catalytic activity/Vol] 60 U/L 45-117 [facility] Work Phone: ALT [Catalytic activity/Vol] 20 U/L 13-56 [facility] Work Phone: [phone] CO2 [Moles/Vol] 26.0 mmol/L 21.0-32.0 [facility] Work Phone: [phone] Globulin (S) [Mass/Vol] 3.3 g/dL 2.2-4.2 [facility] Work Phone: [phone] Magnesium [Mass/Vol] 1.9 mg/dL 1.6-2.6 [facility] Work Phone: [phone] Urea nitrogen/Creatinine [Mass ratio] 36.1 mg/mg 10-20 [facility] Work Phone: [phone] Laboratory - Hematology and Cell countson 06-25-2022 Erythrocyte distribution width (RBC) [Entitic vol] 46.9 fL 35.1-43.9 [facility] Work Phone: [phone] Erythrocyte distribution width (RBC) [Ratio] 12.4 % 11.6-14.6 [facility] Work Phone: [phone] MCH (RBC) [Entitic mass] 33.8 pg 27.0-32.0 [facility] Work Phone: [phone] MCHC Auto (RBC) [Mass/Vol]on 06-25-2022 MCHC (RBC) [Mass/Vol] 32.4 g/dL 32-36 [facility] Work Phone: [phone] Nitrite Test strip Ql (U)on 06-25-2022 Nitrite Ql (U) Negative Negative [facility] Work Phone: [phone] No Panel Informationon 06-25 Estimated GFR (MDRD) Amer 139 mL/min >60 [facility] Work Phone: [phone] Comment on above: GFR Calc Estimated GFR (MDRD) Non-Af Amer 115 mL/min >60 [facility] Work Phone: [phone] Comment on above: Non- GFR Calc Platelets bldon 06-25-2022 Platelets (Bld) [#/Vol] 101 10*3/uL 150-450 [facility] Work Phone: [phone] Protein Test strip Ql (U)on 06-25-2022 Protein Ql (U) 100 mg/dl Negative [facility] Work Phone: Serum or plasma albumin claudette urement (mass/volume)on 06-25-2022 Albumin [Mass/Vol] 2.3 g/dL 3.2-5.0 [facility] Work Phone: Serum or plasma albumin/glob ulin mass ratioon 06-25-2022 Albumin/Globulin [Mass ratio] 0.7 {ratio} 0.9-2.4 [facility] Work Phone: Serum or plasma calcium claudette urement (mass/volume)on 06-25-2022 Calcium [Mass/Vol] 8.4 mg/dL 8.5-10.1 [facility] Work Phone: Serum or plasma creatinine m easurement (mass/volume)on 06-25-2022 Creatinine [Mass/Vol] 0.55 mg/dL 0.55-1.02 [facility] Work Phone: Comment on above: The validity of the calculated GFR & GFRAA in patients over 70 years has not been determined. Clinical correlation is essential. Serum or plasma urea nitroge n measurement (mass/volume)on 06-25-2022 Urea nitrogen [Mass/Vol] 20 mg/dL 7-18 [facility] Work Phone: Thin prep Papanicolaou smear with manual screeningon 06-25-2022 Thin prep Papanicolaou smear with manual screening 22 U/L 15-37 [facility] Work Phone: Thin prep Papanicolaou smear with manual screening 6 5-15 [facility] Work Phone: Urine blood detectionon RBC Ql (U) 50 /ul Negative [facility] Work Phone: [phone] Urine clarityon 06-25-2022 Clarity (U) Cloudy Clear [facility] Work Phone: Urine color determinationon 06-25-2022 Color (U) SEE COMMENT BELOW Yellow [facility] Work Phone: Comment on above: Visual Urine Color: GREEN Urine glucose detectionon Glucose Ql (U) Normal mg/dl Normal [facility] Work Phone: Urine leukocyte esterase det ection by dipstickon 06-25-2022 Leukocyte esterase Test strip Ql (U) 500 /ul Negative [facility] Work Phone: Urine pHon 06-25-2022 pH (U) 7.0 [pH] 5.0 - 8.0 [facility] Work Phone: [phone] Urine specific gravity measu rementon 06-25-2022 Specific gravity (U) [Rel density] 1.020 1.002-1.030 [facility] Work Phone: [phone] Urobilinogen Auto test strip Ql (U)on 06-25-2022 Urobilinogen Ql (U) Normal mg/dl Normal [facility] Work Phone: Basophil percentageon 2021 Bilirubin [Mass/Vol] 0.10 mg/dL 0.20-1.00 [facility] Work Phone: Comment on above: For patients on eltr ombopag therapy, use of Dimension [place] TBIL is not recommended. Chloride [Moles/Vol] 109 mmol/L 98-107 [facility] Work Phone: Glucose [Mass/Vol] 84 mg/dL 74-106 [facility] Work Phone: Potassium [Moles/Vol] 4.4 mmol/L 3.5-5.1 [facility] [facility] Work Phone: Protein [Mass/Vol] 5.4 g/dL 6.4-8.2 [facility] Work Phone: Sodium [Moles/Vol] 141 mmol/L 136-145 [facility] Work Phone: WBC (Bld) [#/Vol] 7.1 10*3/uL 4.4-11.0 [facility] Work Phone: [phone] Blood erythrocytes count (nu mber/volume)on 04-21-2022 RBC (Bld) [#/Vol] 2.97 10*6/uL 4.2-5.4 [facility] Work Phone: Blood hemoglobin measurement (mass/volume)on 04-21-2022 Hemoglobin (Bld) [Mass/Vol] 10.2 g/dL 12.0-15.0 [facility] Work Phone: Blood platelet mean volumeon 04-21-2022 Platelet mean volume (Bld) [Entitic vol] 7.8 fL 6.2-12.0 [facility] Work Phone: Determination of erythrocyte mean corpuscular volume (MCV)on 04-21-2022 MCV (RBC) [Entitic vol] 104.0 fL 81-99 [facility] Work Phone: Erythrocyte sedimentation ra irlanda 04-21-2022 ESR (Bld) [Velocity] 18 mm/h 0-30 [facility]: Hematocrit Auto (Bld) [Volum e fraction]on 04-21-2022 Hematocrit (Bld) [Volume fraction] 30.9 % 37-47 [facility] Work Phone: Laboratory - Chemistry and C hemistry - challengeon 04-21-2022 ALP [Catalytic activity/Vol] 50 U/L 45-117 [facility] Work Phone: ALT [Catalytic activity/Vol] 10 U/L 13-56 [facility] Work Phone: CO2 [Moles/Vol] 26.0 mmol/L 21.0-32.0 [facility] Work Phone: Globulin (S) [Mass/Vol] 3.2 g/dL 2.2-4.2 [facility] Work Phone: Urea nitrogen/Creatinine [Mass ratio] 33.2 mg/mg 10-20 [facility] Work Phone: Laboratory - Hematology and Cell countson 04-21-2022 Erythrocyte distribution width (RBC) [Entitic vol] 46.8 fL 35.1-43.9 [facility] Work Phone: [phone] Erythrocyte distribution width (RBC) [Ratio] 12.5 % 11.6-14.6 [facility] Work Phone: [phone] MCH (RBC) [Entitic mass] 34.3 pg 27.0-32.0 [facility] Work Phone: [phone] MCHC Auto (RBC) [Mass/Vol]on 04-21-2022 MCHC (RBC) [Mass/Vol] 33.0 g/dL 32-36 [facility] Work Phone: No Panel Informationon 04-21 Estimated GFR (MDRD) Amer 134 mL/min >60 [facility] Work Phone: [phone] Comment on above: GFR Calc Estimated GFR (MDRD) Non-Af Amer 111 mL/min >60 [facility] Work Phone: [phone] Comment on above: Non- GFR Calc Platelets bldon 04-21-2022 Platelets (Bld) [#/Vol] 124 10*3/uL 150-450 [facility] Work Phone: [phone] Serum or plasma albumin claudette urement (mass/volume)on 04-21-2022 Albumin [Mass/Vol] 2.2 g/dL 3.2-5.0 [facility] Work Phone: [phone] Serum or plasma albumin/glob ulin mass ratioon 04-21-2022 Albumin/Globulin [Mass ratio] 0.7 {ratio} 0.9-2.4 [facility] Work Phone: [phone] Serum or plasma calcium claudette urement (mass/volume)on 04-21-2022 Calcium [Mass/Vol] 9.0 mg/dL 8.5-10.1 [facility] Work Phone: [phone] Serum or plasma creatinine m easurement (mass/volume)on 04-21-2022 Creatinine [Mass/Vol] 0.57 mg/dL 0.55-1.02 [facility] Work Phone: [phone] Comment on above: The validity of the calculated GFR & GFRAA in patients over 70 years has not been determined. Clinical correlation is essential. Serum or plasma urea nitroge n measurement (mass/volume)on 04-21-2022 Urea nitrogen [Mass/Vol] 19 mg/dL 7-18 [facility] Work Phone: Thin prep Papanicolaou smear with manual screeningon 04-21-2022 Thin prep Papanicolaou smear with manual screening 14 U/L 15-37 [facility] Work Phone: Thin prep Papanicolaou smear with manual screening 6 5-15 [facility] Work Phone: Basophil percentageon 2021 Chloride [Moles/Vol] 107 mmol/L 98-107 [facility] Work Phone: Cholesterol [Mass/Vol] 104 mg/dL <200 [facility] Work Phone: Comment on above: <200 mg/dL Desirable 200-240 mg/dL Borderline >240 mg/dL High Risk Glucose [Mass/Vol] 76 mg/dL 74-106 [facility] Work Phone: Potassium [Moles/Vol] 3.7 mmol/L 3.5-5.1 [facility] Work Phone: Sodium [Moles/Vol] 143 mmol/L 136-145 [facility] Work Phone: Triglyceride [Mass/Vol] 81 mg/dL <199 [facility] Work Phone: Comment on above: The drugs N-Acetylcy steine and Metamizole may falsely depress this assay.Serum Triglycerides Reference Interval Normal <150 mg/dL Borderline high 150 - 199 mg/dL High 200 - 499 mg/dL Very High > or = 500 mg/dL WBC (Bld) [#/Vol] 5.5 10*3/uL 4.4-11.0 [facility] Work Phone: Blood erythrocytes count (nu mber/volume)on 02-28-2022 RBC (Bld) [#/Vol] 2.43 10*6/uL 4.2-5.4 [facility] Work Phone: Blood hemoglobin measurement (mass/volume)on 02-28-2022 Hemoglobin (Bld) [Mass/Vol] 7.9 g/dL 12.0-15.0 [facility] Work Phone: [phone] Blood platelet mean volumeon 02-28-2022 Platelet mean volume (Bld) [Entitic vol] 8.4 fL 6.2-12.0 [facility] Work Phone: [phone] Determination of erythrocyte mean corpuscular volume (MCV)on 02-28-2022 MCV (RBC) [Entitic vol] 111.5 fL 81-99 [facility] Work Phone: Hematocrit Auto (Bld) [Volum e fraction]on 02-28-2022 Hematocrit (Bld) [Volume fraction] 27.1 % 37-47 [facility] Work Phone: Laboratory - Chemistry and C hemistry - challengeon 02-28-2022 CO2 [Moles/Vol] 29.0 mmol/L 21.0-32.0 [facility] Work Phone: Magnesium [Mass/Vol] 1.9 mg/dL 1.6-2.6 [facility] Work Phone: Urea nitrogen/Creatinine [Mass ratio] 28.9 mg/mg 10-20 [facility] Work Phone: [phone] Laboratory - Hematology and Cell countson 02-28-2022 Erythrocyte distribution width (RBC) [Entitic vol] 53.7 fL 35.1-43.9 [facility] Work Phone: [phone] Erythrocyte distribution width (RBC) [Ratio] 13.2 % 11.6-14.6 [facility] Work Phone: [phone] MCH (RBC) [Entitic mass] 32.5 pg 27.0-32.0 [facility] Work Phone: [phone] MCHC Auto (RBC) [Mass/Vol]on 02-28-2022 MCHC (RBC) [Mass/Vol] 29.2 g/dL 32-36 [facility] Work Phone: No Panel Informationon 02-28 Estimated GFR (MDRD) Amer 139 mL/min >60 [facility] Work Phone: Comment on above: GFR Calc Estimated GFR (MDRD) Non-Af Amer 115 mL/min >60 [facility] Work Phone: Comment on above: Non- GFR Calc Thyroid Stimulating Hormone (TSH) 2.92 uIU/mL 0.358-3.74 [facility] Work Phone: Vitamin D 25-Hydroxy 51.1 ng/mL [facility] Work Phone: Comment on above: Vitamin D 25(OH) Sta tus Range Deficiency <20 ng/mL (50nmol/L) Insufficiency 20 - 30 ng/mL (50 - 75 nmol/L) Sufficiency 30 - 100 ng/mL (75 - 250 nmol/L) Toxicity >100 ng/mL (>250 nmol/L) Platelets bldon 02-28-2022 Platelets (Bld) [#/Vol] 164 10*3/uL 150-450 [facility] Work Phone: Serum or plasma calcium claudette urement (mass/volume)on 02-28-2022 Calcium [Mass/Vol] 8.5 mg/dL 8.5-10.1 [facility] Work Phone: Serum or plasma cholesterol in HDL measurement (mass/volume)on 02-28-2022 Cholesterol in HDL [Mass/Vol] 57 mg/dL >40 [facility] Work Phone: Comment on above: The drugs N-Acetylcy steine and Metamizole may falsely depress this assay. Reference Range HDL <40 mg/dL Low HDL Cholesterol HDL >or= 60 mg/dL High HDL Cholesterol Serum or plasma cholesterol in VLDL measurement (mass/volume)on 02-28-2022 Cholesterol in VLDL [Mass/Vol] 16 mg/dL 5-40 [facility] Work Phone: Serum or plasma creatinine m easurement (mass/volume)on 02-28-2022 Creatinine [Mass/Vol] 0.55 mg/dL 0.55-1.02 [facility] Work Phone: Comment on above: The validity of the calculated GFR & GFRAA in patients over 70 years has not been determined. Clinical correlation is essential. Serum or plasma low density lipoprotein (LDL) cholesterol measurement (mass/volume)on 02-28-2022 Cholesterol in LDL [Mass/Vol] 31 mg/dL 0-130 [facility] Work Phone: Serum or plasma urea nitroge n measurement (mass/volume)on 02-28-2022 Urea nitrogen [Mass/Vol] 16 mg/dL 7-18 [facility] Work Phone: [phone] Thin prep Papanicolaou smear with manual screeningon 02-28-2022 Thin prep Papanicolaou smear with manual screening 7 5-15 [facility] Work Phone: [phone] Whole blood hemoglobin A1c/t otal hemoglobin ratio (mass fraction)on 02-28-2022 HbA1c (Bld) [Mass fraction] % 3.8-5.6 [facility] Work Phone: Comment on above: Normal < 5.7 % Predi abetic 5.7 - 6.4 % Diabetic >or= 6.5 % Please note range changes. Basophil percentageon 2021 Ammonia (P) [Moles/Vol] 18.0 umol/L 11-32 [facility] Work Phone: No Panel Informationon 12-05 Valproic Acid (Depakene) Level 95 ug/mL 50-100 [facility] Work Phone: Basophil percentageon 2021 Bilirubin [Mass/Vol] 0.10 mg/dL 0.20-1.00 [facility] Work Phone: [phone] Comment on above: For patients on eltr ombopag therapy, use of Dimension [place] TBIL is not recommended. Chloride [Moles/Vol] 110 mmol/L 98-107 [facility] Work Phone: [phone] Glucose [Mass/Vol] 87 mg/dL 74-106 [facility] Work Phone: Potassium [Moles/Vol] 3.7 mmol/L 3.5-5.1 [facility] Work Phone: [phone] Protein [Mass/Vol] 5.1 g/dL 6.4-8.2 [facility] Work Phone: [phone] Sodium [Moles/Vol] 142 mmol/L 136-145 [facility] Work Phone: Laboratory - Chemistry and C hemistry - challengeon 12-01-2021 ALP [Catalytic activity/Vol] 45 U/L 45-117 [facility] Work Phone: [phone] ALT [Catalytic activity/Vol] 10 U/L 13-56 [facility] Work Phone: [phone] CO2 [Moles/Vol] 28.0 mmol/L 21.0-32.0 [facility] Work Phone: [phone] Globulin (S) [Mass/Vol] 2.7 g/dL 2.2-4.2 [facility] Work Phone: [phone] Urea nitrogen/Creatinine [Mass ratio] 36.8 mg/mg 10-20 [facility] Work Phone: No Panel Informationon 12-01 Estimated GFR (MDRD) Amer 101 mL/min >60 [facility] Work Phone: Comment on above: GFR Calc Estimated GFR (MDRD) Non-Af Amer 83 mL/min >60 [facility] Work Phone: [phone] Comment on above: Non- GFR Calc Serum or plasma albumin claudette urement (mass/volume)on 12-01-2021 Albumin [Mass/Vol] 2.4 g/dL 3.2-5.0 [facility] Work Phone: [phone] Serum or plasma albumin/glob ulin mass ratioon 12-01-2021 Albumin/Globulin [Mass ratio] 0.9 {ratio} 0.9-2.4 [facility] Work Phone: [phone] Serum or plasma calcium claudette urement (mass/volume)on 12-01-2021 Calcium [Mass/Vol] 8.9 mg/dL 8.5-10.1 [facility] Work Phone: Serum or plasma creatinine m easurement (mass/volume)on 12-01-2021 Creatinine [Mass/Vol] 0.73 mg/dL 0.55-1.02 [facility] Work Phone: Comment on above: The validity of the calculated GFR & GFRAA in patients over 70 years has not been determined. Clinical correlation is essential. Serum or plasma urea nitroge n measurement (mass/volume)on 12-01-2021 Urea nitrogen [Mass/Vol] 27 mg/dL 7-18 [facility] Work Phone: Thin prep Papanicolaou smear with manual screeningon 12-01-2021 Thin prep Papanicolaou smear with manual screening 8 U/L 15-37 [facility] Work Phone: Thin prep Papanicolaou smear with manual screening 4 5-15 [facility] Work Phone: Basophil percentageon 2021 Chloride [Moles/Vol] 110 mmol/L 98-107 [facility] Work Phone: Glucose [Mass/Vol] 74 mg/dL 74-106 [facility] Work Phone: Potassium [Moles/Vol] 3.2 mmol/L 3.5-5.1 [facility] Work Phone: Sodium [Moles/Vol] 145 mmol/L 136-145 [facility] Work Phone: Laboratory - Chemistry and C hemistry - challengeon 11-16-2021 CO2 [Moles/Vol] 27.0 mmol/L 21.0-32.0 [facility] Work Phone: Urea nitrogen/Creatinine [Mass ratio] 22.6 mg/mg 10-20 [facility] Work Phone: No Panel Informationon 11-16 Estimated GFR (MDRD) Amer 134 mL/min >60 [facility] Work Phone: Comment on above: GFR Calc Estimated GFR (MDRD) Non-Af Amer 110 mL/min >60 [facility] Work Phone: Comment on above: Non- GFR Calc Serum or plasma calcium claudette urement (mass/volume)on 11-16-2021 Calcium [Mass/Vol] 8.7 mg/dL 8.5-10.1 [facility] Work Phone: Serum or plasma creatinine m easurement (mass/volume)on 11-16-2021 Creatinine [Mass/Vol] 0.57 mg/dL 0.55-1.02 [facility] Work Phone: Comment on above: The validity of the calculated GFR & GFRAA in patients over 70 years has not been determined. Clinical correlation is essential. Serum or plasma urea nitroge n measurement (mass/volume)on 11-16-2021 Urea nitrogen [Mass/Vol] 13 mg/dL 7-18 [facility] Work Phone: Thin prep Papanicolaou smear with manual screeningon 11-16-2021 Thin prep Papanicolaou smear with manual screening 8 5-15 [facility] Work Phone: Basophil percentageon 2021 Chloride [Moles/Vol] 104 mmol/L 98-107 [facility] Work Phone: Glucose [Mass/Vol] 81 mg/dL 74-106 [facility] Work Phone: Potassium [Moles/Vol] 2.9 mmol/L 3.5-5.1 [facility] Work Phone: Sodium [Moles/Vol] 142 mmol/L 136-145 [facility] Work Phone: [phone] WBC (Bld) [#/Vol] 9.8 10*3/uL 4.4-11.0 [facility] Work Phone: Blood erythrocytes count (nu mber/volume)on 11-08-2021 RBC (Bld) [#/Vol] 3.21 10*6/uL 4.2-5.4 [facility] Work Phone: Blood hemoglobin measurement (mass/volume)on 11-08-2021 Hemoglobin (Bld) [Mass/Vol] 9.0 g/dL 12.0-15.0 [facility] Work Phone: [phone] Blood manual differential co mment interpretation (narrative result)on 11-08-2021 Manual differential comment Charan (Bld) [Interp] SCANNED [facility] Work Phone: Comment on above: 2+ ANISOCYTOSIS1+ TN CROCYTOSIS1+ MACROCYTOSIS Blood platelet mean volumeon 11-08-2021 Platelet mean volume (Bld) [Entitic vol] 8.7 fL 6.2-12.0 [facility] Work Phone: [phone] Determination of erythrocyte mean corpuscular volume (MCV)on 11-08-2021 MCV (RBC) [Entitic vol] 90.7 fL 81-99 [facility] Work Phone: [phone] Hematocrit Auto (Bld) [Volum e fraction]on 11-08-2021 Hematocrit (Bld) [Volume fraction] 29.1 % 37-47 [facility] Work Phone: [phone] Laboratory - Chemistry and C hemistry - challengeon 11-08-2021 CO2 [Moles/Vol] 32.0 mmol/L 21.0-32.0 [facility] Work Phone: [phone] Urea nitrogen/Creatinine [Mass ratio] 34.5 mg/mg 10-20 [facility] Work Phone: [phone] Laboratory - Hematology and Cell countson 11-08-2021 Erythrocyte distribution width (RBC) [Entitic vol] 68.8 fL 35.1-43.9 [facility] Work Phone: [phone] Erythrocyte distribution width (RBC) [Ratio] 20.9 % 11.6-14.6 [facility] Work Phone: [phone] MCH (RBC) [Entitic mass] 28.0 pg 27.0-32.0 [facility] Work Phone: [phone] MCHC Auto (RBC) [Mass/Vol]on 11-08-2021 MCHC (RBC) [Mass/Vol] 30.9 g/dL 32-36 [facility] Work Phone: No Panel Informationon 11-08 Estimated GFR (MDRD) Amer 159 mL/min >60 [facility] Work Phone: Comment on above: GFR Calc Estimated GFR (MDRD) Non-Af Amer 132 mL/min >60 [facility] Work Phone: Comment on above: Non- GFR Calc Platelets bldon 11-08-2021 Platelets (Bld) [#/Vol] 276 10*3/uL 150-450 [facility] Work Phone: Serum or plasma calcium claudette urement (mass/volume)on 11-08-2021 Calcium [Mass/Vol] 8.4 mg/dL 8.5-10.1 [facility] Work Phone: Serum or plasma creatinine m easurement (mass/volume)on 11-08-2021 Creatinine [Mass/Vol] 0.49 mg/dL 0.55-1.02 [facility] Work Phone: Comment on above: The validity of the calculated GFR & GFRAA in patients over 70 years has not been determined. Clinical correlation is essential. Serum or plasma urea nitroge n measurement (mass/volume)on 11-08-2021 Urea nitrogen [Mass/Vol] 17 mg/dL 7-18 [facility] Work Phone: Thin prep Papanicolaou smear with manual screeningon 11-08-2021 Thin prep Papanicolaou smear with manual screening 6 5-15 [facility] Work Phone: CNPNon 10-28-2021 CNPN Telephone ([facility]) ELBA DIAZ ([id number]) 1950 F T Date Time Provider Department 10/28/21 MARCUS TIERNEY [facility] During your visit today, we [...] 1 TABLET BY MOUTH EVERY DAY - [facility]-Sod Kinp-FcLft-Jzz (URIBEL) 118-10-40.8-36 mg Take 1 capsule by [...] [I63.9] 03/05/2020 Spasticity [R25.2] 03/05/2020 Hemiparaplegic syndrome ([facility]) [G83.81] 03/05/2020 Hypertension, essential [I10] 03/05/2020 DAVEY (acute kidney injury) (HCC) [N17.9] 05/14/2020 02/08/2021 Hypotension [I95. (more content not included)... Normal [facility] CNPIrma 10-27-2021 CNPN Telephone ([facility]) ELBA DIAZ ([id number]) 1950 F CHT Date Time Provider Department 10/27/21 MARCUS TIERNEY [facility] During your visit today, we recorded the following information about you: Marcus Tierney MD 10/27/2021 3:30 PM Signed I haven't seen patient physically since 05/2020. She needs to come in for appt if wants me to continue to take care of her. I am receiving nursing orders but I can't sign them until she comes in [facility] 10/27/2021 3:37 PM Signed Elba currently in nursing. Spoke with daughter in law tammie whom referred me to contact Mauricio. [facility] for mauricio to call office Allergies As [...] 1 TABLET BY MOUTH EVERY DAY - [facility]-S[facility] Fnbp-XkVag-Irx (URIBEL) 118-10-40.8-36 mg Take 1 capsule by [...] UTI (u (more content not included)... Normal [facility] Jessica 10-24-2021 CNPN Telephone (PEST[facility]) ELBA DIAZ ([id number]) 1950 F CHT Date Time Provider Department 10/24/21 MARCUS TIERNEY PESTFL During your visit today, we recorded the following information about you: Naomi Miller Lo 10/24/2021 1:52 PM Signed Start of care [...] 1 TABLET BY MOUTH EVERY DAY - [facility]-S[facility] Ybob-KqTaa-Bqn (URIBEL) 118-10-40.8-36 mg Take 1 capsule by [...] repeat in 2 hours if needed - tdozliv-rdzxumhi-trzhvo ital (FIORINAL) capsule Take 1 capsule by [...] 24 hour tablet (MYRBETRIQ) - [facility] Blue-Sod Txig-BsNbz-Hrb 118-10-40.8-36 mg cap 1 capsule - rOPINIRole [...] functional mob (more content not included)... Normal [facility] Absolute lymphocyte counton 10-21-2021 Lymphocytes Auto (Unsp spec) [#/Vol] 0.45 10*3/uL 0.83-4.51 [facility] Work Phone: Basophil percentageon 2020 Ammonia (P) [Moles/Vol] 38.0 umol/L [facility] Work Phone: Bilirubin [Mass/Vol] 0.20 mg/dL 0.20-1.00 [facility] Work Phone: Comment on above: For patients on eltr ombopag therapy, use of Dimension [place] TBIL is not recommended. Chloride [Moles/Vol] 107 mmol/L 98-107 [facility] Work Phone: Cholesterol [Mass/Vol] 121 mg/dL <200 [facility] Work Phone: Comment on above: <200 mg/dL Desirable 200-240 mg/dL Borderline >240 mg/dL High Risk Eosinophils/100 WBC (Bld) 2.4 % 0-5 [facility] Work Phone: Glucose [Mass/Vol] 101 mg/dL 74-106 [facility] Work Phone: Comment on above: Fasting Glucose resu lt from 100 to 125 mg/dL suggests IMPAIRED HOMEOSTASIS per A.D.A. criteria.Please note revised GLUCOSE reference range effective 2017. Neutrophils (Bld) [#/Vol] 4.6 10*3/uL 2.0-7.7 [facility] Work Phone: Potassium [Moles/Vol] 3.5 mmol/L 3.5-5.1 [facility] Work Phone: Protein [Mass/Vol] 5.8 g/dL 6.4-8.2 [facility] Work Phone: Sodium [Moles/Vol] 139 mmol/L 136-145 [facility] Work Phone: Triglyceride [Mass/Vol] 167 mg/dL [facility] Work Phone: Comment on above: The drugs N-Acetylcy steine and Metamizole may falsely depress this assay.Serum Triglycerides Reference Interval Normal <150 mg/dL Borderline high 150 - 199 mg/dL High 200 - 499 mg/dL Very High > or = 500 mg/dL WBC (Bld) [#/Vol] 5.5 10*3/uL 4.4-11.0 [facility] Work Phone: Blood erythrocytes count (nu mber/volume)on 10-21-2021 RBC (Bld) [#/Vol] 2.09 10*6/uL 4.2-5.4 [facility] Work Phone: Blood hemoglobin measurement (mass/volume)on 10-21-2021 Hemoglobin (Bld) [Mass/Vol] 4.6 g/dL 12.0-15.0 [facility] Work Phone: Comment on above: CRITICAL VALUE VERIF IED. [facility]ING [facility] 1414 Kadi Cardenas.RESULTS READ BACK BY SAME . Blood lymphocytes/100 leukoc yteson 10-21-2021 Lymphocytes/100 WBC (Bld) 8.2 % 19-41 [facility] Work Phone: Blood monocytes/100 leukocyt eson 10-21-2021 Monocytes/100 WBC (Bld) 5.1 % 0-10 [facility] Work Phone: Blood platelet adequacy dete ction by light microscopyon 10-21-2021 Platelets LM Ql (Bld) ADEQUATE ADEQ [facility] Work Phone: Blood platelet mean volumeon 10-21-2021 Platelet mean volume (Bld) [Entitic vol] 9.6 fL 6.2-12.0 [facility] Work Phone: Blood polychromasia detectio n by light microscopyon 10-21-2021 Polychromasia LM Ql (Bld) 1+ [facility] Work Phone: Determination of erythrocyte mean corpuscular volume (MCV)on 10-21-2021 MCV (RBC) [Entitic vol] 78.5 fL 81-99 [facility] Work Phone: Hematocrit Auto (Bld) [Volum e fraction]on 10-21-2021 Hematocrit (Bld) [Volume fraction] 16.4 % 37-47 [facility] Work Phone: Hypochromatic red blood cell detectionon 10-21-2021 Hypochromia Ql (Bld) 3+ [facility] Work Phone: Laboratory - Chemistry and C hemistry - challengeon 10-21-2021 ALP [Catalytic activity/Vol] 51 U/L 45-117 [facility] Work Phone: ALT [Catalytic activity/Vol] 18 U/L 13-56 [facility] Work Phone: CO2 [Moles/Vol] 23.0 mmol/L 21.0-32.0 [facility] Work Phone: Globulin (S) [Mass/Vol] 3.5 g/dL 2.2-4.2 [facility] Work Phone: Urea nitrogen/Creatinine [Mass ratio] 14.6 mg/mg 10-20 [facility] Work Phone: Laboratory - Hematology and Cell countson 10-21-2021 Anisocytosis Ql (Bld) 1+ [facility]: Basophils/100 WBC (Unsp spec) 0.2 % 0-1 [facility] Work Phone: Erythrocyte distribution width (RBC) [Entitic vol] 53.7 fL 35.1-43.9 [facility] Work Phone: Erythrocyte distribution width (RBC) [Ratio] 19.4 % 11.6-14.6 [facility] Work Phone: Immature granulocytes/100 WBC (Bld) 1.300 % 0.0-0.9 [facility] Work Phone: Comment on above: IG% - Immature Granu locytes (promyelocytes, myelocytes and metamyelocytes) > 1% indicates that a LEFT SHIFT is Present. MCH (RBC) [Entitic mass] 22.0 pg 27.0-32.0 [facility] Work Phone: Neutrophils/100 WBC (Bld) 82.8 % 47-70 [facility] Work Phone: Nucleated RBC/100 WBC (Bld) [Ratio] 1.3 % 0-5 [facility] Work Phone: MCHC Auto (RBC) [Mass/Vol]on 10-21-2021 MCHC (RBC) [Mass/Vol] 28.0 g/dL 32-36 [facility] Work Phone: No Panel Informationon 10-21 Estimated GFR (MDRD) Amer 109 mL/min >60 [facility] Work Phone: Comment on above: GFR Calc Estimated GFR (MDRD) Non-Af Amer 90 mL/min >60 [facility] Work Phone: Comment on above: Non- GFR Calc Thyroid Stimulating Hormone (TSH) 1.73 uIU/mL 0.358-3.74 [facility] Work Phone: [phone] Valproic Acid (Depakene) Level 43 ug/mL 50-100 [facility] Work Phone: Platelets bldon 10-21-2021 Platelets (Bld) [#/Vol] 160 10*3/uL 150-450 [facility] Work Phone: Review by pathologiston - Pathologist review Charan (Unsp spec) [Interp] Reviewed [facility] Work Phone: Comment on above: Previous reported re sult: Jessie mcguire Edited by: ALONSO on 10/24/21:1435Severe Microcytic anemia.Clinical correlation necessary.Bryson Anaya M.D. 10/24/21 AMENDED REPORT 10/24/21 1435 PATH REV previously reported as: Jessie mcguire Serum or plasma albumin claudette urement (mass/volume)on 10-21-2021 Albumin [Mass/Vol] 2.3 g/dL 3.2-5.0 [facility] Work Phone: [phone] Serum or plasma albumin/glob ulin mass ratioon 10-21-2021 Albumin/Globulin [Mass ratio] 0.7 {ratio} 0.9-2.4 [facility] Work Phone: [phone] Serum or plasma calcium claudette urement (mass/volume)on 10-21-2021 Calcium [Mass/Vol] 7.9 mg/dL 8.5-10.1 [facility] Work Phone: [phone] Serum or plasma cholesterol in HDL measurement (mass/volume)on 10-21-2021 Cholesterol in HDL [Mass/Vol] 50 mg/dL [facility] Work Phone: Comment on above: The drugs N-Acetylcy steine and Metamizole may falsely depress this assay. Reference Range HDL <40 mg/dL Low HDL Cholesterol HDL >or= 60 mg/dL High HDL Cholesterol Serum or plasma cholesterol in VLDL measurement (mass/volume)on 10-21-2021 Cholesterol in VLDL [Mass/Vol] 33 mg/dL 5-40 [facility] Work Phone: [phone] Serum or plasma creatinine m easurement (mass/volume)on 10-21-2021 Creatinine [Mass/Vol] 0.68 mg/dL 0.55-1.02 [facility] Work Phone: Comment on above: The validity of the calculated GFR & GFRAA in patients over 70 years has not been determined. Clinical correlation is essential. Serum or plasma low density lipoprotein (LDL) cholesterol measurement (mass/volume)on 10-21-2021 Cholesterol in LDL [Mass/Vol] 38 mg/dL 0-130 [facility] Work Phone: Serum or plasma urea nitroge n measurement (mass/volume)on 10-21-2021 Urea nitrogen [Mass/Vol] 10 mg/dL 7-18 [facility] Work Phone: Thin prep Papanicolaou smear with manual screeningon 10-21-2021 Thin prep Papanicolaou smear with manual screening 3+ [facility] Work Phone: [phone] Thin prep Papanicolaou smear with manual screening 18 U/L 15-37 [facility] Work Phone: [phone] Thin prep Papanicolaou smear with manual screening 9 5-15 [facility] Work Phone: CNPIrma 10-17-2021 CNPN Telephone ([facility]) CONTRERASELBA LARIOS ([id number]) 1950 F T Date Time Provider Department 10/17/21 MARCUS TIERNEY [facility] During your visit today, we [...] 1 TABLET BY MOUTH EVERY DAY - [facility] Blue-Sod Breu-QnXbn-Tfq (URIBEL) 118-10-40.8-36 mg Take 1 capsule by [...] repeat in 2 hours if needed - wanjbxt-nhvaamog-ybmnbj ital (FIORINAL) capsule Take 1 capsule by [...] Encounter Status:Closed by JOE YOUNGBLOOD on 10/17/21 Normal [facility] CNPIrma 10-11-2021 CNPN Telephone ([facility]) ELBA DIAZ ([id number]) 1950 F T Date Time Provider Department 10/11/21 MARCUS TIERNEY [facility] During your visit today, we recorded the following information about you: Trinity Henderson RN 10/11/2021 9:29 AM Signed Absolute skilled home health form on Dr. 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 Normal [facility] DIAGNOSTIC LTon 08-06-20 [facility] DIAGNOSTIC LT Final Report DATE OF EXAM: Aug 06 2020 1:32PM AAW 0621 - [facility] DIAGNOSTIC LT / PROCEDURE REASON: Abnormal mammogram Physician Interpretation #[id number] - [facility] DIAGNOSTIC LT UNILATERAL LEFT DIGITAL DIAGNOSTIC MAMMOGRAM WITH CAD: 08/06/2020 HISTORY: Abnormal Mammogram\\ Patient returns for abnormal left mammogram. RESULT: TECHNIQUE: The study was acquired using full field digital technology and interpreted from soft copy. Current study was also evaluated with a Computer Aided Detection (CAD). Comparison is made to exams dated: 07/21/2020 mammogram - [facility], 12/31/2017 mammogram, 09/25/2016 mammogram, and 08/07/2013 mammogram - [facility]. There are scattered fibroglandular elements in left [...] soriano/mark:08/06/2020 19:04:55 Attending Technologist(s): Jorge Alberto Johns(R)(M), [facility] Sandwich Hand(s): RT Shane(R)(M), [facility] Mammogram BI-RADS: 2 Benign finding Multiple national specialty organizations have released breast cancer screening guidelines for women at average risk for developing breast cancer - guidelines that are based on both evidence and opinion, yet differ on when to start and how often to screen for breast cancer. With representation from Breast Imaging, Internal Medicine, Women's Health, Family Medicine, and Medical/Surgical Oncology, the [facility] has carefully reviewed the data and reached [...] their providers when to stop screening mammograms. Lamp Tester And Inspector: Mark Transcribe Date/Time: Aug 06 2020 1:27P Dictated by : NADINE DAVILA MD This examination was interpreted and the report reviewed and electronically signed by: NADINE DAVILA MD on Aug 06 2020 7:04PM EST Normal [facility] SLEEP RPTSon 07-23-2020 SLEEP RPTS Patient Name:VICTORIANO DIAZ Admit/Service Date: 07/09/20 Patient Acc#: [id number] Patient MR#: [id number] : 1950 Age: 70 Sex: F Attending [...] compliance. BRENDA/GIORGIO @ 07:18 @ 16:20 # [id number] Carrie Parekh D.O. Electronically Signed Date/Time: 08/17/20 1228 [facility] SLEEP RPTSon 06-07-2020 SLEEP RPTS Patient Name:VICTORIANO DIAZ Admit/Service Date: 05/31/20 Patient Acc#: [id number] Patient MR#: [id number] : 1950 Age: 70 Sex: F Attending [...] hygiene. BRENDA/GIORGIO @ 08:28 @ 11:50 # [id number] Carrie Parekh D.O. Electronically Signed Date/Time: 06/21/20 0958 [facility] CASE MANAGEMon 05-19-2020 CASE MANAGEM HNO ID: [id number] Author: Emmie Horn Service: Care Management Author Type: ? Type: Care Mgt Progress Note Filed: 05/19/2020 11:28 AM Note Text: CARE MANAGEMENT PROGRESS NOTE SERVICE DATE: 05/19/2020 SERVICE TIME: 1010 LOS: 3 days IMM Follow Up Copy Given: Yes Copy given to:: Patient Transport Tech Transport Tech Name/Relationship: Mauricio (son) Method: By Phone SIGNATURE: Emmie Horn PATIENT NAME: Elba Diaz DATE: May 19, 2020 TIME: 11:27 AM PAGER/CONTACT #: [facility] CASE MANAGEM HNO ID: [id number] Author: Yenny BarronRn) MONAE Fuentes Service: Nursing [...] Pt will be doing PT/OT outpatient at [facility] outpatient location. Order in [facility]. 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 Notify family as appropriate: SonMauricio - attempted call but VM not set up to leave call back number Post fall interventions: Fall Huddle Conducted, Bed Alarm On and My Safety Plan Updated This note was completed by:Maricruz Vazquez RN [facility] PROGRESSon 05-19-2020 PROGRESS HNO ID: [id number] Author: Gutierrez Shannon Service: Hospital Medicine Author Type: Physician Type: Progress Notes Filed: 05/19/2020 9:48 AM Note Text: DEPARTMENT OF HOSPITAL MEDICINE PROGRESS NOTE SERVICE DATE: 05/19/2020 SERVICE TIME: 9:17 AM Hospital Medicine/Primary Attending: Gutierrez Shannon, DO NIGHT AND WEEKEND COVERAGE: After 7pm please page [phone] CHIEF COMPLAINT: I'm ready to go home [...] 2339 -- 05/16/20 2345 pneumatic compression stockings ([place], [place]) 05/16/20 2345 activity - mobilize patient ([place]) Lines, Drains, and Airways Line Peripheral [...] this note may have been generated using [employer] voice recognition software. Reasonable efforts were made to correct any dictation errors that resulted due to the programming of this software but some may still be present. Normal [facility] PROGRESS HNO ID: [id number] Author: Stew Ferraro APRN.MANISH Service: Hospital Medicine [...] May 19, 2020 2:16 AM Stew Ferraro APRN.MANISH Normal [facility] THERAPY NTon 05-19-2020 THERAPY NT HNO ID: [id number] Author: Tammie (Otr/L) Chirag Service: Occupational Therapy Author Type: Occupational Therapist Type: Therapy (PT/OT/Speech/Resp) Filed: 05/19/2020 9:16 AM Note Text: Occupational Therapy Evaluation SERVICE DATE: 05/19/2020 SERVICE TIME: 814 to 837 ROOM: [place] [address] Recommended Discharge Disposition: Outpatient Occupational Therapy Anticipated [...] living (ADL);Muscle Weakness (generalized) Interventions Provided: Evaluation;Self Shelter Management (39760) $ Evaluation-Low (26352) Billed Units: 1 unit OT Evaluation Low [...] present to affect patient's occupational performance. Self Shelter Management (62718) Treatment Minutes: 8 1 unit Skilled Intervention(s): [...] complete details for this therapy evaluation/treatment. 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 Will follow-up as able. Vasc Tech Signature: Nancy Barraza, Gita To contact the [facility] Care Department: Please call [phone] or Page the On-Call Vasc Tech at pager [phone] Thank you for the opportunity to be of service. This is an electronically created document. IF PRINTED, PLEASE DO NOT REMOVE FROM THE CHART OR MODIFY PRINTED COPY. Normal [facility] Basic Metabolic Panelon 04-22 Anion gap [Moles/Vol] 11 mmol/L Normal 9-18 [facility] Comment on above: Performed By: #### B MP ####[facility] [place], [place] [address] Calcium [Mass/Vol] 9.2 mg/dL Normal 8.5-10.2 [facility] Comment on above: Performed By: #### B MP ####[facility] [place], [place] [address] Chloride [Moles/Vol] 105 mmol/L Normal 97-105 [facility] Comment on above: Performed By: #### B MP ####[facility] [place], [place] [address] CO2 Blood 23 mmol/L Normal 22-30 [facility] Comment on above: Performed By: #### B MP ####[facility] [place], [place] [address] Creatinine [Mass/Vol] 1.05 mg/dL High 0.58-0.96 [facility] Comment on above: Performed By: #### B MP ####[facility] [place], [place] [address] Glucose [Mass/Vol] 78 mg/dL Normal 74-99 [facility] Comment on above: Result Comment: The [place] Diabetes Association (ADA) provides guidance for cutoff [...] Standards of Medical Care in Diabetes 2016; [place] Diabetes Association. Diabetes Care. 2016;39(Suppl 1). Performed By: #### B MP ####[facility] [place], [place] [address] Potassium [Moles/Vol] 3.6 mmol/L Low 3.7-5.1 [facility] Comment on above: Performed By: #### B MP ####[address] [address] Sodium [Moles/Vol] 139 mmol/L Normal 136-144 [facility] Comment on above: Performed By: #### B MP ####[place] [address] Urea nitrogen [Mass/Vol] 14 mg/dL Normal 7-21 [facility] Comment on above: Performed By: #### B MP ####[address] [address] Hemogramon 05-18-2020 Erythrocyte distribution width (RBC) [Ratio] 13.2 % Normal 11.7-14.4 [facility] Comment on above: Performed By: #### C BC1 ####[address] [address] Hematocrit (Bld) [Volume fraction] 31.7 % Low 34.1-44.9 [facility] Comment on above: Performed By: #### C BC1 ####[address] [address] Hemoglobin (Bld) [Mass/Vol] 10.8 g/dL Low 11.2-15.7 [facility] Comment on above: Performed By: #### C BC1 ####[address] [address] MCH (RBC) [Entitic mass] 33.1 pg High 25.6-32.2 [facility] Comment on above: Performed By: #### C BC1 ####[facility] [place], [place] [address] MCHC (RBC) [Mass/Vol] 34.1 % Normal 31.6-34.8 [facility] Comment on above: Performed By: #### C BC1 ####[facility] [place], [place] [address] MCV (RBC) [Entitic vol] 97.2 fL High 79.4-94.8 [facility] Comment on above: Performed By: #### C BC1 ####[address] [address] Platelet mean volume (Bld) [Entitic vol] 9.5 fL Normal 9.4-12.3 [facility] Comment on above: Performed By: #### C BC1 ####[address] [address] Platelets (Bld) [#/Vol] 205 thou/cmm Normal 182-369 [facility] Comment on above: Performed By: #### C BC1 ####[address] [address] RBC (Bld) [#/Vol] 3.26 mil/cmm Low 3.93-5.22 [facility] Comment on above: Performed By: #### C BC1 ####[address] [address] RDW SD 47.1 fl High 36.4-46.3 [facility] Comment on above: Performed By: #### C BC1 ####[address] [address] WBC (Bld) [#/Vol] 7.08 thou/cmm Normal 3.98-10.04 [facility] Comment on above: Performed By: #### C BC1 ####[address] [address] MDRD GFRon 05-18-2020 GFR/1.73 sq M predicted among non-blacks MDRD (S/P/Bld) [Vol rate/Area] 51.95 mL/min/{1.73_m2} Normal >60mL/min/1. 73m2 [facility] Comment on above: Result Comment: If t he patient is , multiply the result by 1.210. Performed By: #### G #### [facility] [address] [place] [id number] PROGRESSon 05-18-2020 PROGRESS HNO ID: [id number] Author: Leonel Lund Service: Hospital Medicine Author [...] the past and did okay according to qxrksexj-nu-gkb. Patient Checklist Prophylaxis: VTE - Yes Code [...] Sunday. Had long discussion with patient and mysetwgy-ps-kmh who is the main caregiver regarding her [...] by mouth every 12 hours as needed. ppuqtez-ltvifwyw-cgnyvc ital (FIORINAL) capsule Take 1 capsule by [...] Provider, RN, Patient. Leonel Lund MD Pager #[phone] 2:16 PM May 18, 2020 Disclaimer: Portions of this note have been generated using [employer] voice recognition software. Reasonable efforts were made to correct any dictation errors that resulted due to the programming of this software but some may still be present. Normal [facility] Basic Metabolic Panelon - Anion gap [Moles/Vol] 13 mmol/L Normal 9-18 [facility] Comment on above: Performed By: #### C BCD1 #### [place] [address] Calcium [Mass/Vol] 9.4 mg/dL Normal 8.5-10.2 [facility] Comment on above: Performed By: #### C BCD1 #### [facility] [address] [place], [place] [address] Chloride [Moles/Vol] 101 mmol/L Normal 97-105 [facility] Comment on above: Performed By: #### C BCD1 #### [facility] [address] [place], [place] [address] CO2 Blood 23 mmol/L Normal 22-30 [facility] Comment on above: Performed By: #### C BCD1 #### [facility] [address] [place], [place] [address] Creatinine [Mass/Vol] 0.95 mg/dL Normal 0.58-0.96 [facility] Comment on above: Performed By: #### C BCD1 #### [facility] [address] [place], [place] [address] Glucose [Mass/Vol] 78 mg/dL Normal 74-99 [facility] Comment on above: Result Comment: The [place] Diabetes Association (ADA) provides guidance for cutoff [...] Standards of Medical Care in Diabetes 2016; [place] Diabetes Association. Diabetes Care. 2016;39(Suppl 1). Performed By: #### C BCD1 #### [facility] [address] [place], [place] [address] Potassium [Moles/Vol] 3.5 mmol/L Low 3.7-5.1 [facility] Comment on above: Performed By: #### C BCD1 #### [facility] [address] [place], [place] [address] Sodium [Moles/Vol] 137 mmol/L Normal 136-144 [facility] Comment on above: Performed By: #### C BCD1 #### [facility] [address] [place], [place] [address] Urea nitrogen [Mass/Vol] 14 mg/dL Normal - [facility] Comment on above: Performed By: #### C BCD1 #### [facility] [address] [place], [place] [address] CASE MGT INIT ASSESon 2019 CASE MGT INIT ASSES HNO ID: [id number] Author: Jackelin (Rn) MONAE Barroso Service: Care Management Author Type: Registered Nurse Type: Care Mgt Initial Assessment Filed: 05/17/2020 4:28 PM Note Text: CARE MANAGEMENT: ASSESSMENT AND DISCHARGE PLAN SERVICE DATE: May 17, 2020 SERVICE TIME: 4:27 PM PRIMARY CARE PHYSICIAN: No primary care provider on file. Phone: None ADMISSION STATUS: Inpatient Needs Prior to Discharge: Other: See Comment(out patient physical therapy) MEDICAL: U[employer] MEDICARE PPO Patient/Transport Tech Stated Goals: To have reduction in symptoms Health Insurance: [facility] Issues Impacting Discharge Plan: None Last Discharge Date: N/A Is this Within the Past 30 days? Last discharge within 30 days: No Advance Directive: Current Advance Directive: None Ct Tech Attempted to Assist with AD Completion: Yes [...] Contact Resources: Family Family Name/Phone: Mauricio (son) [phone] Social Needs Food insecurity Worry: Not on [...] Completely I feel financially burdened by my ida-pw-idkvsr expenses for my prescription medication:: 0 - Disagree Completely Risk Score: 0 Patient is categorized as: Low risk < 2 Are you interested in bedside delivery of your medications? No Is Patient Psychosocially Complex?: No ASSESSMENT AND PLAN: Medical Needs: Medical Needs: None Psychosocial Needs: Psychosocial Needs: None FREEDOM OF CHOICE EXPLAINED: [place] of Choice Given: No Reason Not Given: No placements necessary POTENTIAL TRANSITION PLANS Outpatient Therapy From home w/ son and daughter in law, they help with all activities of daily living, they can still manage to provide care. Patient active with outpatient physical and occupational therapy through [facility]. Plan return home with family assist and outpatient physical and occupational therapy. Will continue to follow. SIGNATURE: Jackelin Barroso RN PATIENT NAME: Elba Diaz DATE: May 17, 2020 TIME: 4:27 PM PAGER/CONTACT #: [phone] [facility] CONSULTon 05-17-2020 CONSULT HNO ID: [id number] Author: Stew Ellison Jr. Service: Neurology Stroke [...] Diaz a 70 year old female from [place], visiting [place] to get PT and see her son, who presented to the [facility] initially with a chief complaint of a [...] 2020 TIME: 3:55 PM PAGER/CONTACT #: [phone] Normal [facility] ED NOTEon 05-17-2020 ED NOTE HNO ID: [id number] Author: Alex Tiwari) MONAE Wilson Service: Emergency [...] Hospital ID band on. Normal [facility] ED NOTE HNO ID: [id number] Author: Alex Tiwari) Steve RN Service: Emergency Medicine Author Type: Registered Nurse Type: ED Notes Filed: 05/16/2020 10:17 PM Note Text: Pt straight cathed 400cc obtained, sample collected Normal [facility] HISTORY PHYSICALon 0 HISTORY PHYSICAL HNO ID: [id number] Author: Elli Levy Service: Hospital Medicine Author Type: Physician Type: HANDP Filed: 05/17/2020 2:34 AM Note Text: DEPARTMENT OF HOSPITAL MEDICINE HISTORY AND PHYSICAL EXAM SERVICE DATE: 05/16/2020 SERVICE TIME: 10:34 PM Primary Care Physician: No primary care provider on file. NIGHT AND WEEKEND COVERAGE: [place] COVERAGE: From 7am - 7pm, please call admit After 7pm, please call cross cover pager #[phone] Subjective CHIEF COMPLAINT: convulsions HPI: This is [...] postictal confusion check EEG. Continue with the Keppra. Neurology consult. Patient is on multiple medications [...] TIME: 10:34 PM PAGER/CONTACT #: admit [phone] [phone] Normal [facility] Hemogramon 05-17-2020 Erythrocyte distribution width (RBC) [Ratio] 13.0 % Normal 11.7-14.4 [facility] Comment on above: Performed By: #### C BCD1 #### [place] [address] Hematocrit (Bld) [Volume fraction] 32.5 % Low 34.1-44.9 [facility] Comment on above: Performed By: #### C BCD1 #### [place] [address] Hemoglobin (Bld) [Mass/Vol] 11.0 g/dL Low 11.2-15.7 [facility] Comment on above: Performed By: #### C BCD1 #### [place] [address] MCH (RBC) [Entitic mass] 32.6 pg High 25.6-32.2 [facility] Comment on above: Performed By: #### C BCD1 #### [place] [address] MCHC (RBC) [Mass/Vol] 33.8 % Normal 31.6-34.8 [facility] Comment on above: Performed By: #### C BCD1 #### [address] [place], [place] [address] MCV (RBC) [Entitic vol] 96.4 fL High 79.4-94.8 [facility] Comment on above: Performed By: #### C BCD1 #### [facility] [facility] [address] [place], [place] [address] Platelet mean volume (Bld) [Entitic vol] 9.8 fL Normal 9.4-12.3 [facility] Comment on above: Performed By: #### C BCD1 #### [facility] [address] [place], [place] [address] Platelets (Bld) [#/Vol] 212 thou/cmm Normal 182-369 [facility] Comment on above: Performed By: #### C BCD1 #### [facility] [address] [place], [place] [address] RBC (Bld) [#/Vol] 3.37 mil/cmm Low 3.93-5.22 [facility] Comment on above: Performed By: #### C BCD1 #### [facility] [address] [place] [address] RDW SD 46.5 fl High 36.4-46.3 [facility] Comment on above: Performed By: #### C BCD1 #### [facility] [address] [place], [place] [address] WBC (Bld) [#/Vol] 8.13 thou/cmm Normal 3.98-10.04 [facility] Comment on above: Performed By: #### C BCD1 #### [facility] [address] [place] [address] Lipid Profile, [facility] 05-17 Cholesterol [Mass/Vol] 232 mg/dL High 0-199 [facility] Comment on above: Result Comment: Tota l Cholesterol < 200 mg/dL, Desirable Total Cholesterol 200 to 239 mg/dL, Borderline high Total Cholesterol > 239 mg/dL, High Performed By: #### C BCD1 #### [place] [address] Cholesterol in HDL [Mass/Vol] 79 mg/dL Normal [facility] Comment on above: Result Comment: Refe rence Range: HDL Cholesterol 40- 59 mg/dL, Acceptable HDL Cholesterol >59 mg/dL, High; Negative risk factor for coronary heart disease HDL Cholesterol <40 mg/dL, Low; Positive risk factor for coronary heart disease Performed By: #### C BCD1 #### [place] [address] Cholesterol in LDL [Mass/Vol] 128 mg/dL High 0-99 [facility] Comment on above: Result Comment: LDL Cholesterol < 100 mg/dL, Optimal LDL Cholesterol 100 to 129 mg/dL, Near optimal/above optimal LDL Cholesterol 130 to 159 mg/dL, Borderline high LDL Cholesterol 160 to 189 mg/dL, High LDL Cholesterol > 189 mg/dL, Very high Secondary prevention optimal LDL Cholesterol levels are recommended to be < 70 mg/dL Performed By: #### C BCD1 #### [place] [address] Cholesterol in LDL/Cholesterol in HDL [Mass ratio] 1.62 Normal 0.00-2.53 [facility] Comment on above: Performed By: #### C BCD1 #### [place] [address] Cholesterol.total/Blessing sterol in HDL [Mass ratio] 2.94 {ratio} Normal 0.00-5.09 [facility] Comment on above: Performed By: #### C BCD1 #### [place] [address] Non-HDL Cholesterol 153 mg/dL High 0-129 [facility] Comment on above: Result Comment: Non [...] mg/dL Performed By: #### C BCD1 #### [place] [address] Triglyceride Blood 127 mg/dL Normal 0-149 [facility] Comment on above: Result Comment: Trig lycerides < 150 mg/dL, Normal Triglycerides 150 to 199 mg/dL, Borderline high Triglycerides 200 to 499 mg/dL, High Triglycerides > 499 mg/dL, Very high Performed By: #### C BCD1 #### [facility] [address] [place], [place] [address] VLDL Cholesterol 25 mg/dL Normal 0-29 [facility] Comment on above: Performed By: #### C BCD1 #### [facility] [address] [place], [place] [address] Magnesium Bloodon 05-17-2020 Magnesium [Mass/Vol] 2.1 mg/dL Normal 1.7-2.3 [facility] Comment on above: Performed By: #### C BCD1 #### [facility] [address] [place], [place] [address] PROGRESSon 05-17-2020 PROGRESS HNO ID: [id number] Author: Leonel Lund Service: Hospital Medicine Author [...] after being treated for UTI and dehydration. [id number] was concerned that patient was having some [...] Provider, RN, Patient. Leonel Lund MD Pager #[phone] 11:18 AM May 17, 2020 Disclaimer: Portions of this note have been generated using [employer] voice recognition software. Reasonable efforts were made to correct any dictation errors that resulted due to the programming of this software but some may still be present. Normal [facility] Phosphorous Bloodon 05-17-20 20 Phosphate [Mass/Vol] 2.2 mg/dL Low 2.7-4.8 [facility] Comment on above: Performed By: #### C BCD1 #### [address] [address] Rapid, COVID 19on 05-17-2020 Rapid, COVID 19 Negative Normal Negative [facility] Comment on above: Result Comment: This test has been authorized by the FDA under an Emergency Use Authorization (EUA). Performed By: #### C BCD1 #### [facility] [address] [place], [place] [address] THERAPY NTon 05-17-2020 THERAPY NT HNO ID: [id number] Author: Dina (Children'S Lunchroom Supervisor) TRUNG Hidalgo/HEALTH CARE FACILITY ADMINISTRATOR Service: Speech/Swallow Author Type: Speech Language Pathologist Type: Therapy (PT/OT/Speech/Resp) Filed: 05/17/2020 3:21 PM Note Text: Speech Therapy Clinical Swallow Evaluation SERVICE DATE: 05/17/2020 SERVICE TIME: 1430 to 1502 ROOM: [id number] Nursing Recommendations: Reinforce use of swallowing strategies [...] oral phase Interventions Provided: Clinical Swallow Evaluation (74142) $ Clinical Swallow Evaluation (07804) Billed Units: 1 unit Total Treatment Time [...] for this therapy evaluation/treatment. SIGNATURE: Dina Hidalgo CCC-HEALTH CARE FACILITY ADMINISTRATOR PATIENT NAME: Elba Diaz DATE: May 17, 2020 TIME: 3:13 PM Normal [facility] THERAPY NT HNO ID: [id number] Author: Cristopher (Pt) JHONNY Elkins Service: Physical Therapy Author Type: Physical Therapist Type: Therapy (PT/OT/Speech/Resp) Filed: 05/17/2020 1:28 PM Note Text: Physical Therapy Evaluation SERVICE DATE: 05/17/2020 SERVICE TIME: 1147 to 1212 ROOM: [place] [address] Recommended Discharge Disposition: Outpatient Physical Therapy Recommended [...] Reduced mobility-other Interventions Provided: Evaluation $ Evaluation-Moderate (25225) Billed Units: 1 unit History and examination [...] 2020 TIME: 1:25 PM Normal [facility] Urinalysis Routineon 020 Bacteria LM.HPF (Urine sed) [#/Area] NONE Normal None [facility] Comment on above: Performed By: #### C BCD1 #### [address] [place] [address] Ep Cells Urine 2.0 /hpf Normal 0.0-5.0 [facility] Comment on above: Performed By: #### C BCD1 #### [facility] [address] [place] [address] Hyaline Cast 0.3 /lpf Normal 0.0-1.0 [facility] Comment on above: Performed By: #### C BCD1 #### [facility] [address] [place] [address] RBC LM.HPF (Urine sed) [#/Area] 3.5 /[HPF] Normal 0.0-5.0 [facility] Comment on above: Performed By: #### C BCD1 #### [facility] [address] [place] [address] WBC LM.HPF (Urine sed) [#/Area] 2.4 /[HPF] Normal 0.0-5.0 [facility] Comment on above: Performed By: #### C BCD1 #### [facility] [address] [place] [address] Appearance (U) CLEAR Normal [facility] Comment on above: Performed By: #### C BCD1 #### [place] [address] Bilirubin (U) [Mass/Vol] Negative Normal Negative [facility] Comment on above: Performed By: #### C BCD1 #### [place] [address] Color (U) YELLOW Normal [facility] Comment on above: Performed By: #### C BCD1 #### [place] [address] Glucose Ql (U) Negative Normal Negative [facility] Comment on above: Performed By: #### C BCD1 #### [place] [address] Hemoglobin,Urine Negative Normal Negative [facility] Comment on above: Performed By: #### C BCD1 #### [place] [address] Ketone Urine Negative Normal Negative [facility] Comment on above: Performed By: #### C BCD1 #### [facility] [address] [place], [place] [address] Leukocytes Esterase Negative Normal Negative [facility] Comment on above: Performed By: #### C BCD1 #### [facility] [address] [place], [place] [address] Nitrites Urine Negative Normal Negative [facility] Comment on above: Performed By: #### C BCD1 #### [facility] [address] [place] [address] pH (U) 6.5 [pH] Normal 5.0-8.0 [facility] Comment on above: Performed By: #### C BCD1 #### [facility] [address] [place] [address] Protein (U) [Mass/Vol] 100 mg/dL Abnormal Negative [facility] Comment on above: Performed By: #### C BCD1 #### [facility] [address] [place] [address] Specific Quinter, Ur 1.017 Normal 1.005-1.030 [facility] Comment on above: Performed By: #### C BCD1 #### [facility] [address] [place] [address] Urobilinogen,Ur 0.2 EU/dL Normal 0.2-1.0 [facility] Comment on above: Performed By: #### C BCD1 #### [facility] [address] [place] [address] Acetaminophenon 05-16-2020 Acetaminophen [Mass/Vol] <5 Low 10-30 [facility] Comment on above: Result Comment: Toxi c >150 ug/mL 4 hours post ingestion. The Salvatore Shirley nomogram can be used to estimate the probability of hepatotoxicity via the relationship of plasma acetaminophen concentration to the post ingestion interval. (Noni. Pediatrics. 1975. 55:871 to 876 and Salvatore et al. Arch Ticket Scheduler Med. 1981. 141:380 to 385). Reference ranges and high/low indicator flags are provided as general guidelines only. The treating physician must determine appropriate target levels/dosing based on the specific clinical situation. Performed By: #### C BCD1 #### [facility] [address] [place], [place] [address] Alcohol, Serumon 05-16-2020 Alcohol, Serum <11.0 Normal < 11 [facility] Comment on above: Performed By: #### A LCO3 #### [facility] [address] [place], [place] [address] CT BRAIN WO IVCONon 05-16-[address] BRAIN WO IVCON Final Report DATE OF EXAM: May 16 2020 7:26PM [facility] 0504 - CT BRAIN WO IVCON / [...] base and imaged soft tissues are unremarkable. Hand Woven Carpet And Rug Mender (topogram) images: Unremarkable. IMPRESSION: No acute intracranial abnormality is identified. 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 Lamp Tester And Inspector: [facility] Transcribe Date/Time: May 16 2020 7:27P Dictated by : BAILEE OROSCO MD This examination was interpreted and the report reviewed and electronically signed by: BAILEE OROSCO MD on May 16 2020 7:30PM EST Normal [facility] Comprehensive Metabolic Pane manan 05-16-2020 Albumin [Mass/Vol] 4.5 g/dL Normal 3.9-4.9 [facility] Comment on above: Performed By: #### C MP #### [facility] [address] [place], [place] [address] ALP [Catalytic activity/Vol] 108 U/L Normal 34-123 [facility] Comment on above: Performed By: #### C MP #### [facility] [address] [place], [place] [address] ALT [Catalytic activity/Vol] 61 U/L High 7-38 [facility] Comment on above: Performed By: #### C MP #### [facility] [address] [place] [address] Anion gap [Moles/Vol] 16 mmol/L Normal 9-18 [facility] Comment on above: Performed By: #### C MP #### [facility] [address] [place] [address] AST [Catalytic activity/Vol] 49 U/L High 13-35 [facility] Comment on above: Performed By: #### C MP #### [facility] [address] [place] [address] Bilirubin [Mass/Vol] 0.2 mg/dL Normal 0.2-1.3 [facility] Comment on above: Performed By: #### C MP #### [facility] [address] [place] [address] Calcium [Mass/Vol] 9.6 mg/dL Normal 8.5-10.2 [facility] Comment on above: Performed By: #### C MP #### [facility] [address] [place] [address] Chloride [Moles/Vol] 98 mmol/L Normal 97-105 [facility] Comment on above: Performed By: #### C MP #### [facility] [address] [place] [address] CO2 Blood 23 mmol/L Normal 22-30 [facility] Comment on above: Performed By: #### C MP #### [facility] [address] [place] [address] Creatinine [Mass/Vol] 0.99 mg/dL High 0.58-0.96 [facility] Comment on above: Performed By: #### C MP #### [facility] [address] [place] [address] Glucose [Mass/Vol] 119 mg/dL High 74-99 [facility] Comment on above: Result Comment: The [place] Diabetes Association (ADA) provides guidance for cutoff [...] Standards of Medical Care in Diabetes 2016; [place] [employer] Association. Diabetes Care. 2016;39(Suppl 1). Performed By: #### C MP #### [place] [address] Potassium [Moles/Vol] 3.6 mmol/L Low 3.7-5.1 [facility] Comment on above: Performed By: #### C MP #### [place] [address] Protein [Mass/Vol] 7.5 g/dL Normal 6.3-8.0 [facility] Comment on above: Performed By: #### C MP #### [place] [address] Sodium [Moles/Vol] 137 mmol/L Normal 136-144 [facility] Comment on above: Performed By: #### C MP #### [place] [address] Urea nitrogen [Mass/Vol] 14 mg/dL Normal 7-21 [facility] Comment on above: Performed By: #### C MP #### [place] [address] ED NOTEon 05-16-2020 ED NOTE HNO ID: [id number] Author: Alex BarronRnDesmond Wilson RN Service: Emergency Medicine Author Type: Registered Nurse Type: ED Notes Filed: 05/16/2020 8:19 PM Note Text: Pt placed on bed lara Normal [facility] ED NOTE HNO ID: [id number] Author: Alex Wilson RN Service: Emergency Medicine Author Type: Registered Nurse Type: ED Notes Filed: 05/16/2020 8:02 PM Note Text: Normal [facility] ED NOTE HNO ID: [id number] Author: Alex Wilson RN Service: Emergency Medicine Author Type: Registered Nurse Type: ED Notes Filed: 05/16/2020 8:02 PM Note Text: Son at bedside Normal [facility] ED NOTE HNO ID: [id number] Author: Alex Wilson RN Service: Emergency Medicine Author Type: Registered Nurse Type: ED Notes Filed: 05/16/2020 7:20 PM Note Text: Pt to radiology [facility] ED NOTE HNO ID: [id number] Author: Alex Wilson RN Service: Emergency Medicine Author Type: Registered Nurse Type: ED Notes Filed: 05/16/2020 7:17 PM Note Text: ED CT and xray notified [facility] ED NOTE HNO ID: [id number] Author: Alex Wilson RN Service: Emergency Medicine Author Type: Registered Nurse Type: ED Notes Filed: 05/16/2020 7:10 PM Note Text: Dr Thompson in to assess pt [facility] ED NOTE HNO ID: [id number] Author: Elmira Mehta (Medic) Service: ? Author Type: Sales Trader and Advertising Copy Writer Type: ED Notes Filed: 05/16/2020 6:49 PM Note Text: Bed: 14-ED Expected date: 05/16/20 Expected time: 6:39 PM Means of arrival: [place] FD Comments: Poss. Seizure Med 10 [facility] ED PROV NOTEon 05-16-2020 ED PROV NOTE HNO ID: [id number] Author: Meenu Thompson MD Service: Emergency Medicine [...] Thompson MD 05/16/20 1938 Normal [facility] ED PROV NOTE HNO ID: [id number] Author: Meenu Thompson MD Service: Emergency Medicine [...] states that the patient was admitted to [facility] on Sunday for UTI and low blood [...] was sure that she was admitted to [facility] due to her lack of records, he [...] as of May 16 2314 Juan C (Chung) Neftali's Documentation Sun May 16, [id number] No acute changes CT [...] states that the patient was admitted to [facility] on Sunday for UTI and low blood [...] was sure that she was admitted to [facility] due to her lack of records, he [...] C Ramon (Res) DO Ralph Lindsay 05/16/20 5217 Attending Note I evaluated the patient and personally participated in the holm components. I agree with the resident's findings and plan as documented and have discussed the case and management of the patient's care with the resident. Signature: Meenu Thompson MD Date: 05/16/2020 Time: 11:37 PM Meenu Thompson MD 05/16/20 3220 Normal [facility] Glucose Meteron 05-16-2020 Glucose [Mass/Vol] 125 mg/dL High 70-99 [facility] Comment on above: Performed By: #### G LMET #### [address] [address] Hemogram/Diffon 05-16-2020 Abs Immature Grans 0.05 thou/cmm Normal 0.00-0.05 [facility] Comment on above: Performed By: #### C BCD1 #### [address] [address] Abs Neut (ANC) 8.20 thou/cmm High 1.56-6.13 [facility] Comment on above: Performed By: #### C BCD1 #### [address], [place] [address] Abs. Baso 0.03 thou/cmm Normal 0.01-0.08 [facility] Comment on above: Performed By: #### C BCD1 #### [facility] [address] [place] [address] Abs. Redwood 0.40 thou/cmm Normal 0.27-0.70 [facility] Comment on above: Performed By: #### C BCD1 #### [facility] [address] [place] [address] Basophils/100 WBC (Bld) 0.3 % Normal [facility] Comment on above: Performed By: #### C BCD1 #### [facility] [address] [place] [address] Eosinophils (Bld) [#/Vol] 0.03 thou/cmm Normal 0.00-0.31 [facility] Comment on above: Performed By: #### C BCD1 #### [facility] [address] [place] [address] Eosinophils/100 WBC (Bld) 0.3 % Normal [facility] Comment on above: Performed By: #### C BCD1 #### [facility] [address] [place] [address] Erythrocyte distribution width (RBC) [Ratio] 13.1 % Normal 11.7-14.4 [facility] Comment on above: Performed By: #### C BCD1 #### [facility] [address] [place] [address] Hematocrit (Bld) [Volume fraction] 36.3 % Normal 34.1-44.9 [facility] Comment on above: Performed By: #### C BCD1 #### [facility] [address] [place] [address] Hemoglobin (Bld) [Mass/Vol] 12.3 g/dL Normal 11.2-15.7 [facility] Comment on above: Performed By: #### C BCD1 #### [place] [address] Immature Grans 0.50 % Normal [facility] Comment on above: Performed By: #### C BCD1 #### [facility] [address] [place], [place] [address] Lymphocytes (Bld) [#/Vol] 1.77 thou/cmm Normal 1.18-3.74 [facility] Comment on above: Performed By: #### C BCD1 #### [facility] [address] [place], [place] [address] Lymphocytes/100 WBC (Bld) 16.9 % Normal [facility] Comment on above: Performed By: #### C BCD1 #### [facility] [address] [place], [place] [address] MCH (RBC) [Entitic mass] 32.7 pg High 25.6-32.2 [facility] Comment on above: Performed By: #### C BCD1 #### [facility] [address] [place], [place] [address] MCHC (RBC) [Mass/Vol] 33.9 % Normal 31.6-34.8 [facility] Comment on above: Performed By: #### C BCD1 #### [facility] [address] [place], [place] [address] MCV (RBC) [Entitic vol] 96.5 fL High 79.4-94.8 [facility] Comment on above: Performed By: #### C BCD1 #### [facility] [address] [place], [place] [address] Monocytes/100 WBC (Bld) 3.8 % Normal [facility] Comment on above: Performed By: #### C BCD1 #### [facility] [address] [place], [place] [address] Platelet mean volume (Bld) [Entitic vol] 9.8 fL Normal 9.4-12.3 [facility] Comment on above: Performed By: #### C BCD1 #### [facility] [address] [place], [place] [address] Platelets (Bld) [#/Vol] 249 thou/cmm Normal 182-369 [facility] Comment on above: Performed By: #### C BCD1 #### [facility] [address] [place], [place] [address] RBC (Bld) [#/Vol] 3.76 mil/cmm Low 3.93-5.22 [facility] Comment on above: Performed By: #### C BCD1 #### [facility] [address] [place] [address] RDW SD 46.2 fl Normal 36.4-46.3 [facility] Comment on above: Performed By: #### C BCD1 #### [facility] [address] [place] [address] Seg Neutrophil 78.2 % Normal [facility] Comment on above: Performed By: #### C BCD1 #### [facility] [address] [place] [address] WBC (Bld) [#/Vol] 10.49 thou/cmm High 3.98-10.04 [facility] Comment on above: Performed By: #### C BCD1 #### [facility] [address] [place] [address] Protimeon 05-16-2020 INR Coag (PPP) [Relative time] 0.96 {INR} Normal 0.90-1.30 [facility] Comment on above: Result Comment: Saundra min K Antagonist (VKA) Therapeutic Range: INR 2 to 3 (Target INR of 2.5) Note: For patients treated with VKA drugs, such as warfarin, the [place] [employer] 2012 Guideline recommends [...] GALLAGHER, et al. Chest 2012; 141:7S-47S Connor HEDRICK et al. JACC 2017; 70: 252-289 Performed By: #### P T #### [place] [address] PT Coag (PPP) [Time] 10.4 s Normal 9.7-13.0 [facility] Comment on above: Performed By: #### P T #### [place] [address] Salicylateon 05-16-2020 Salicylate <1.0 Low 3.0-30.0 [facility] Comment on above: Result Comment: The therapeutic range varies and has been reported to be 3.0 to 10.0 mg/dL for anti-pyretic/analgesic conditions and 15.0 to 30.0 mg/dL for anti-inflammatory/rheumatic fever conditions. Ranges published by the instrument construction operations manager. Reference ranges and high/low indicator flags are provided as general guidelines only. The treating physician must determine appropriate target levels/dosing based on the specific clinical situation. Performed By: #### C BCD1 #### [place] [address] Troponin T, High Sens.on Troponin T, High Sens. 17 ng/L High 0-11 [facility] Comment on above: Result Comment: [...] result. Performed By: #### T ROPT #### [place] [address] Urine Drug Screenon 05-16-20 20 Urine Alcohol <11 Normal 0-11 [facility] Comment on above: Performed By: #### C BCD1 #### [place] [id number] Urine Amphetamine Negative Normal NEGATIVE [facility] Comment on above: Performed By: #### C BCD1 #### [place] [address] Urine Barbiturates Negative Normal NEGATIVE [facility] Comment on above: Performed By: #### C BCD1 #### [facility] [address] [place], [place] [address] Urine Benzodiazepine Negative Normal NEGATIVE [facility] Comment on above: Performed By: #### C BCD1 #### [facility] [address] [place], [place] [address] Urine Cocaine Metab Negative Normal NEGATIVE [facility] Comment on above: Performed By: #### C BCD1 #### [facility] [address] [place], [place] [address] Urine Opiates Negative Normal NEGATIVE [facility] Comment on above: Performed By: #### C BCD1 #### [facility] [address] [place], [place] [address] Urine Oxycodone Negative Normal NEGATIVE [facility] Comment on above: Performed By: #### C BCD1 #### [facility] [address] [place], [place] [address] Urine PCP Negative Normal NEGATIVE [facility] Comment on above: Result Comment: Test [...] the same specimen through the laboratory at ([phone]) if contacted within 48 hours of initial 1. Substance Abuse and Mental Health Services Administration (2012). Clinical Drug Testing in Primary Care Technical Assistance Publication Series 32. Department of Health and Human Services, [place], p.10. Performed By: #### C BCD1 #### [facility] [address] [place], [place] [address] Urine THC Negative Normal NEGATIVE [facility] Comment on above: Performed By: #### C BCD1 #### [facility] [address] [place], [place] [address] XR CHEST 2V FRONTAL/LATon XR CHEST 2V [...] Unremarkable. IMPRESSION: No definite acute radiographic abnormality. Lamp Tester And Inspector: [facility] Transcribe Date/Time: May 16 2020 7:42P Dictated by : ROSY VALDEZ MD This examination was interpreted and the report reviewed and electronically signed by: ROSY VALDEZ MD on May 16 2020 7:43PM EST Normal [facility] CT ANGIOGRAPHY NECK W/CONTRA STon 04-06-2020 [...] Date: 04/06/2020 9:19:23 AM Ordering Provider:Michael Castanon [facility] ([place]) Culture, urine Bacteria identified Cx Nom (U) Yeast, not Karen albicans [facility] Work Phone: Vital Signs Date Time Vital Sign Value Performing Clinician Facility 08-20-2025 14:31-0400 Body height 152 cm Crystal Key SAIL FINISHER HAND-CHAIR [employer]ING [employer] Work Phone: [facility] 08-20-2025 14:31-0400 Body height 152.4 cm Crystal Key SAIL FINISHER HAND-CHAIR [employer]ING [employer] Work Phone: [facility] 08-20-2025 14:31-0400 Body mass index (BMI) [Ratio] 31.36 kg/m2 Crystal Patelmer SAIL FINISHER HAND-CHAIR SPRING [employer] Work Phone: [facility] [place] 08-20-2025 14:31-0400 Body weight 73 kg Crystal Zeyadhammer SAIL FINISHER HAND-CHAIR SPRING ASSEM[employer] Work Phone: [facility] [place] 08-20-2025 14:31-0400 Body weight 72.58 kg Crystal Jeffershammer SAIL FINISHER HAND-CHAIR SPRING ASSEM[employer]ER Work Phone: [facility] [place] 08-20-2025 14:31-0400 BP SITE #1 Crystal Patelmer SAIL FINISHER HAND-CHAIR SPRING ASSEM[employer]ER Work Phone: [facility] 08-20-2025 14:31-0400 Diastolic blood pressure 75 mm[Hg] Crystal Jeffershammer SAIL FINISHER HAND-CHAIR SPRING ASSEMBLER Work Phone: [facility] 08-20-2025 14:31-0400 Heart rate 80 /min Crystal Patelmer SAIL FINISHER HAND-CHAIR SPRING [employer]SEM[employer]ER Work Phone: [facility] 08-20-2025 14:31-0400 HGHTCHNVIS Crystalashley Jeffershammer SAIL FINISHER HAND-CHAIR SPRING ASSEMBLER Work Phone: [facility] 08-20-2025 14:31-0400 Systolic blood pressure 118 mm[Hg] Crystal Patelmer SAIL FINISHER HAND-CHAIR SPRING [employer]SEMBLER Work Phone: [facility] 08-20-2025 14:31-0400 VITALSDONE Crystal Jeffershammer SAIL FINISHER HAND-CHAIR SPRING [employer]SEMBLER Work Phone: [facility] [place] 05-26-2025 10:04-0400 Body height 160 cm Paty Fonseca SAIL FINISHER HAND-CHAIR SPRING ASSEMBLER Work Phone: [facility] [place] 05-26-2025 10:04-0400 Body height 160.02 cm Paty Fonseca SAIL FINISHER HAND-CHAIR SPRING ASSEMBLER Work Phone: [facility] 05-26-2025 10:04-0400 Body mass index (BMI) [Ratio] 30.22 kg/m2 Paty Fonseca SAIL FINISHER HAND-CHAIR SPRING [employer]SEMBLER Work Phone: [facility] 05-26-2025 10:04-0400 Body weight 77 kg Paty Fonseca SAIL FINISHER HAND-CHAIR SPRING [employer] Work Phone: [facility] 05-26-2025 10:04-0400 Body weight 77.11 kg Paty Fonseca SAIL FINISHER HAND-CHAIR SPRING [employer]SEM[employer]ER Work Phone: [facility] 05-26-2025 10:04-0400 BP SITE #1 Paty Fonseca SAIL FINISHER HAND-CHAIR SPRING [employer]ER Work Phone: [facility] 05-26-2025 10:04-0400 Diastolic blood pressure 80 mm[Hg] Paty Sarahmarlee SAIL FINISHER HAND-CHAIR SPRING ASSEMBLER Work Phone: [facility] 05-26-2025 10:04-0400 Heart rate 81 /min Paty Sarahmarlee SAIL FINISHER HAND-CHAIR SPRING [employer]SEM[employer]ER Work Phone: [facility] 05-26-2025 10:04-0400 HGHTCHNVIS Paty Fonseca SAIL FINISHER HAND-CHAIR [employer]ING [employer]ER Work Phone: [facility] 05-26-2025 10:04-0400 Systolic blood pressure 130 mm[Hg] Paty Smithmarlee SAIL FINISHER HAND-CHAIR SPRING ASSEMBLER Work Phone: [facility] 05-26-2025 10:04-0400 VITALSDONE Paty Fonseca SAIL FINISHER HAND-CHAIR SPRING [employer]SEMBLER Work Phone: [facility] 03-25-2025 09:37-0400 Diastolic blood pressure 56 mm[Hg] Stew Oswald MD Work Phone: [facility] 03-25-2025 09:37-0400 Heart rate 51 /min Stew Oswald MD Work Phone: [facility] [employer] 03-25-2025 09:37-0400 Systolic blood pressure 90 mm[Hg] Stew Oswald MD Work Phone: [facility] 02-06-2025 08:58-0400 Diastolic blood pressure 85 mm[Hg] Stew Oswald MD Work Phone: [facility] [employer] 02-06-2025 08:58-0400 Heart rate 84 /min Stew Oswald MD Work Phone: [facility] [employer] 02-06-2025 08:58-0400 Systolic blood pressure 134 mm[Hg] Stew Oswald MD Work Phone: [facility] [employer] Encounters Encounter Date Encounter Type Care Provider Facility Start: 08-24-2025 ambulatory Robb ROB Facil ity:[facility] Start: 08-20-2025 Visit out of hours Crystal ochoa SAIL FINISHER HAND-CHAIR SPRING ASSEMBLER Work Phone: [employer] Work Phone: Start: 08-20-2025 In-person encounter Crystal Key SAIL FINISHER HAND-CHAIR SPRING ASSEMBLER Work Phone: [facility] Work Phone: Start: 07-22-2025 ambulatory Robb ROB Facil ity:[facility] Start: 07-22-2025 Registered Referred Robb pyle [place] [address] Start: 07-09-2025 End: 07-10-2025 Telephone encounter Stew Oswald MD Work Phone: [facility] Clinical Communication Comment on above: Med Refill Start: 06-23-2025 ambulatory Robb ROB Facil ity:[facility] Start: 06-23-2025 Registered Referred Robb Moses ltconstantino [place] - [address] Start: 06-17-2025 End: 06-17-2025 ambulatory Robb ROB -[facility] [address] Start: 06-17-2025 End: 06-17-2025 Departed Referred Robb Faith [place] - [address] Start: 06-17-2025 End: 06-17-2025 ambulatory Robb ROB Facility:[facility] Start: 05-26-2025 In-person encounter Paty Raymundo SAL-CHAIR SPRING ASSEMBLER Work Phone: [facility] [place] Work Phone: Start: 05-26-2025 Visit out of hours Paty Raymundo SAL-CHAIR SPRING ASSEMBLER Work Phone: [employer] [facility] Work Phone: Start: 04-01-2025 ambulatory Robb ROB Facil ity:[facility] Start: 04-01-2025 Registered Referred Robb Stephany Montoya - [address] Start: 03-25-2025 End: 03-25-2025 Office outpatient visit 15 minutes Stew Oswald MD Work Phone: [facility] Comment on above: Focal epilepsy with impairment of consciousness, intractable (HCC) (Primary Dx); Carotid stenosis, symptomatic, with infarction (HCC); Hemiparesis affecting left side as late effect of cerebrovascular accident (CVA) (HCC) Start: 03-25-2025 End: 03-25-2025 ambulatory [facility] Start: 03-06-2025 End: 03-06-2025 ambulatory Robb ROB [facility] Work Phone: Start: 03-06-2025 End: 03-06-2025 Departed Referred Robb Montoya - [address] Start: 03-06-2025 End: 03-06-2025 ambulatory Robb ROB Facility:[facility] Start: 02-12-2025 End: 02-12-2025 ambulatory [facility] Start: 02-10-2025 End: 02-10-2025 Telephone encounter tSew Oswald MD Work Phone: [facility] Start: 02-06-2025 End: 02-06-2025 Office outpatient new 60 minutes Stew Oswald MD Work Phone: [facility] Comment on above: Focal epilepsy with impairment of consciousness, intractable (HCC) (Primary Dx); Carotid stenosis, symptomatic, with infarction (HCC); Hemiparesis affecting left side as late effect of cerebrovascular accident (CVA) (HCC) Start: 02-06-2025 End: 02-06-2025 ambulatory STEW OSWALD [facility] Start: 01-14-2025 End: 01-14-2025 ambulatory Robb ROB [facility] Work Phone: Start: 01-14-2025 End: 01-14-2025 Departed Referred Robb Barnes -[facility] [place] - [address] Start: 01-14-2025 End: 01-14-2025 ambulatory Robb ROB Facility:[facility] Start: 01-09-2025 End: 01-13-2025 Evaluation and management [facility] Start: 01-01-2025 End: 01-15-2025 Telephone encounter Stew Oswald MD Work Phone: [facility] Comment on above: Appointment Request Start: 12-31-2024 ambulatory Robb ROB Facil ity:[facility] Start: 12-31-2024 Registered Referred Robb Moses [place] - [address] Start: 12-30-2024 Registered Referred Robb [facility] [place] [facility] [address] Start: 12-30-2024 End: 12-30-2024 ambulatory Robb ROB Facility:[facility] Start: 12-24-2024 ambulatory [facility] Facility:[facility] Start: 12-24-2024 Registered Referred [facility] [place] - [address] Start: 12-22-2024 ambulatory Robb ROB Facil ity:[facility] Start: 12-22-2024 Registered Referred Robb Moses [facility] [place] - [address] Start: 12-14-2024 Emergency department patient visit ELIA ICKES II Facility:[facility] Start: 11-27-2024 ambulatory Robb ROB Facil ity:[facility] Start: 11-27-2024 Registered Referred Robb Rezahner -[facility] [place] - [address] Start: 10-27-2024 Registered Referred Robb Rezahnolivier Moses ltconstantino [place] - [address] Start: 10-27-2024 End: 10-27-2024 ambulatory Robb ROB Facility:[facility] Start: 08-27-2024 End: 08-27-2024 ambulatory Robb ROB Facility:[facility] Start: 12-24-2023 End: 12-24-2023 ambulatory [facility] Work Phone: Start: 12-24-2023 End: 12-24-2023 Departed Referred [facility] [place] - [address] Start: 11-13-2023 End: 11-13-2023 ambulatory [facility] Work Phone: Start: 11-13-2023 End: 11-13-2023 Departed Referred [facility] [place] - [address] Start: 11-13-2023 Registered Referred [facility] [place] - [address] Start: 11-08-2023 End: 11-08-2023 ambulatory [facility] Work Phone: Start: 11-08-2023 End: 11-08-2023 Departed Referred [facility] [place] - [address] Start: 08-24-2023 End: 08-24-2023 ambulatory [facility] Work Phone: Start: 08-24-2023 End: 08-24-2023 Departed Referred [facility] [place] - [address] Start: 08-03-2023 End: 08-03-2023 ambulatory [facility] Work Phone: Start: 08-03-2023 End: 08-03-2023 Departed Referred [facility] [place] - [address] Start: 06-07-2023 End: 06-07-2023 Departed Referred [facility] [place] - [address] Start: 03-20-2023 End: 03-20-2023 ambulatory [facility] Work Phone: Start: 03-20-2023 End: 03-20-2023 Departed Referred [facility] [place] - [address] Start: 01-04-2023 End: 01-04-2023 ambulatory [facility] Work Phone: Start: 01-04-2023 End: 01-04-2023 Departed Referred [facility] [place] - [address] Start: 09-13-2022 End: 09-13-2022 ambulatory [facility] Work Phone: Start: 09-13-2022 End: 09-13-2022 Departed Referred [facility] [place] - [address] Start: 09-06-2022 ambulatory Marcus Tierney MD Work Phone: Internal Medicine [facility] Start: 08-03-2022 End: 08-03-2022 ambulatory [facility] Work Phone: Start: 08-03-2022 End: 08-03-2022 Departed Referred [facility] [place] - [address] Start: 06-25-2022 End: 06-25-2022 ambulatory [facility] Work Phone: Start: 06-25-2022 End: 06-25-2022 Departed Referred [facility] [place] - [address] Start: 06-21-2022 Telephone encounter Bipin Dennis MD Work Phone: [facility] Comment on above: Appointment Start: 06-19-2022 Telephone encounter Bipin Dennis MD Work Phone: [facility] Comment on above: Appointment Start: 04-21-2022 End: 04-21-2022 Departed Referred [facility] [place] - [address] Start: 02-28-2022 End: 02-28-2022 Departed Referred [facility] [place] - [address] Start: 12-05-2021 End: 12-05-2021 Departed Referred [facility] - [address] Start: 12-05-2021 Registered Referred [facility] - [address] Start: 12-01-2021 End: 12-01-2021 Departed Referred [facility] - [address] Start: 12-01-2021 Registered Referred [facility] - [address] Start: 11-16-2021 Registered Referred [facility] - [address] Start: 11-08-2021 Registered Referred [facility] - [address] Start: 10-21-2021 Registered Referred [facility] - [address] Start: 09-19-2021 Registered Referred [facility] - [address] Procedures Date Procedure Procedure Detail Performing Clinician Start: 08-20-2025 Blood pressure within normal parameters - no follow-up required Crystal Key SAIL FINISHER HAND-CHAIR [employer]ING [employer]SEM[employer]ER Work Phone: Start: 08-20-2025 BMI documented as above normal parameters - follow-up documented Crystal Key SAIL FINISHER HAND-CHAIR SPRING [employer]SEM[employer]ER Work Phone: Start: 08-20-2025 Current tobacco non-user cad cap copd pv dm Crystal Key SAIL FINISHER HAND-CHAIR [employer]ING [employer]SEMBLER Work Phone: Start: 08-20-2025 Documentation of current medications Crystal Key SAIL FINISHER HAND-CHAIR SPRING ASSEMBLER Work Phone: Start: 08-20-2025 Pain assessment documented as positive - no follow-up/reason not given Crystal Key SAIL FINISHER HAND-CHAIR SPRING ASSEMBLER Work Phone: Start: 07-22-2025 Urine culture Robb ROB Start: 07-22-2025 Urnls dip stick/tablet reagent auto microscopy Robb ROB Start: 06-17-2025 Urine culture Robb ROB Start: 06-17-2025 Urnls dip stick/tablet reagent auto microscopy Robb ROB Start: 05-26-2025 Blood pressure within normal parameters - no follow-up required Paty Fosneca APRN-CHAIR SPRING ASSEMBLER Work Phone: Start: 05-26-2025 BMI outside of normal parameters - no follow-up plan/reason not given Paty Fonseca SAIL FINISHER HAND-CHAIR SPRING ASSEMBLER Work Phone: Start: 05-26-2025 Current tobacco non-user cad cap copd pv dm Paty Fonseca SAIL FINISHER HAND-CHAIR [employer]ING [employer]SEM[employer]ER Work Phone: Start: 05-26-2025 Documentation of current medications Paty Fonseca SAIL FINISHER HAND-CHAIR SPRING ASSEMBLER Work Phone: Start: 05-26-2025 Pain assessment documented as positive - no follow-up/reason not given Paty Fonseca APRN-CHAIR SPRING ASSEMBLER Work Phone: Start: 04-01-2025 Urnls dip stick/tablet reagent auto microscopy Robb ROB Start: 04-01-2025 Urine culture Robb ROB Start: 03-06-2025 Procedure Robb ROB Comment on above: Test Ordered: [id number] LacosamideTest(s) 0 [id number]-[id number] developed and its performance characteristicsdetermined by [employer]. It has not been cleared or approvedby the Food and Drug Administration.Lacosamide 7.2 ug/mL Reference Range: 5.0-10.0 Limit of Detection 0.5 Mean plasma concentrations following maintenance dose 200 mg/day 4.99 +/- 2.51 ug/mL 400 mg/day 9.35 +/- 4.22 ug/mL 600 mg/day 12.46 +/- 5.60 ug/mLPerformed at: - [facility] [id number] Director: Hank Spangler MD, Phone: [phone] at: [facility] [employer] [id number] Director: Angel Franklin PhD, Phone: [phone] Start: 01-10-2025 Thyrotropin [Units/volume] in Serum or Plasma Stew Oswald MD Work Phone: Start: 12-30-2024 Urine culture Robb ROB Start: 12-30-2024 Urnls dip stick/tablet reagent auto microscopy Robb Stephany RBO Start: 12-22-2024 Urnls dip stick/tablet reagent auto microscopy Robb Stephany ROB Start: 12-22-2024 Urine culture Robb ROB [...] Activity Detail Author Start: 02-20-2028 Colonoscopy COLONOSCOPY [facility] Start: 02-20-2028 COLORECTAL CANCER SCREENING COLORECTAL CANCER SCREENING [facility] Start: 2026 RSV Immunization for Adults (1 - 1-dose 75+ series) RSV Immunization for Adults (1 - 1-dose 75+ series) [facility] Start: 02-08-2026 LIPID SCREEN LIPID SCREEN [facility] Start: 01-10-2026 Thyroid stimulating hormone measurement TSH Level [facility] Start: 09-24-2025 End: 09-24-2025 Patient encounter procedure 09/24/2025 10:40 AM EST Office Visit [facility] [employer] [facility] [address] [facility] [address] [place] [address] Stew Oswald MD [address] [facility] [place] [address] [facility] [facility] Start: 08-20-2025 End: 08-20-2025 [employer] [facility] Work Phone: Start: 08-20-2025 Fluoroscopic guidanc e needle placement add on [facility] [place] Work Phone: Start: 07-02-2025 End: 07-02-2025 [facility] Work Phone: Start: 06-22-2025 COVID-19 Vaccine ( season) COVID-19 Vaccine ( season) [facility] Start: 06-22-2025 Influenza vaccination [facility] Start: 05-26-2025 End: 05-26-2025 [employer] Work Phone: Start: 05-26-2025 Fluoroscopic guidanc e needle placement add on [facility] [place] Work Phone: Start: 04-09-2025 End: 04-09-2025 Patient encounter procedure 04/09/2025 9:20 AM EDT Office Visit [facility] [address] [facility] [facility] [address] [place] [phone] Stew Oswald MD [address] [facility] [address] [place] [id number] [facility] Start: 03-25-2025 End: 03-25-2025 Patient encounter procedure 03/25/2025 10:20 AM EDT Office Visit [facility] [address] [facility] [address] [place] [phone] Stew Oswald MD [address] [facility] [address] [place] [id number] [facility] Start: 03-08-2025 End: 02-06-2026 Lacosamide level Lacosamide level Lab Routine Focal epilepsy with impairment of consciousness, intractable (HCC) Expected: 03/08/2025 (Approximate), Expires: 02/06/2026 [facility] Work Phone: Comment on above: Expected: 03/08/2025 (Approximate), Expires: 02/06/2026 Start: 02-12-2025 End: 02-12-2025 Patient encounter procedure 02/12/2025 11:00 AM EDT Appointment [facility] [address] [place] [address] Stew Oswald MD [address] [place] [address] [place] [address] [facility] Start: 11-04-2024 DIABETES SCREEN DIABETES SCREEN [facility] Start: 10-22-2024 Medicare Advantage Annual Wellness Visit Medicare Advantage Annual Wellness Visit [facility] Start: 06-22-2024 COVID-19 Vaccine ( season) COVID-19 Vaccine ( season) [facility] Start: 06-22-2024 Influenza vaccination Influenza Vacc ine (#1) [facility] Start: 10-21-2022 FECAL OCCULT BLOOD FECAL OCCULT BLOO D [facility] Start: 10-21-2022 Screening for malign ant neoplasm of colon [facility] Start: 07-21-2022 Mammography MAMMOGRAM [facility] Start: 06-22-2022 Influenza vaccination INFLUENZA (#1) [facility] Start: 10-27-2021 ANNUAL PCP TEAM CASINO CHANGE ATTENDANT DAMEON DISEASE VISIT ANNUAL PCP TEAM CHRONIC DISEASE VISIT [facility] Start: 10-22-2021 ADVANCE DIRECTIVE DISCUSSION ADVANCE DIRECTIVE DISCUSSION [facility] Start: 02-16-2021 DTaP/Tdap/Td Vaccine s (2 - Td or Tdap) DTaP/Tdap/Td Vaccines (2 - Td or Tdap) [facility] Start: 02-16-2021 Urine microalbumin profile DTAP,TDAP,TD (2 - Td or Tdap) [facility] Start: 09-28-2020 SHINGRIX VACCINE (3 of 3) SHINGRIX VACCINE (3 of 3) [facility] Start: 09-28-2020 Zoster Vaccines (3 o f 3) Zoster Vaccines (3 of 3) [facility] Start: 1996 COLOGUARD (FIT-DNA) COLOGUARD (FIT-D NA) [facility] Start: [address] [facility] Start: 1996 SIGMOIDOSCOPY SIGMOIDOSCOPY [facility] Start: 1991 Screening for malign ant neoplasm of breast Mammogram [facility] Start: 1969 BP CONTROLLED (<130/80) BP CONTROLLE D (<130/80) [facility] Start: 1969 Hepatitis C screening Hepatitis C Sc reening [facility] Start: 1963 Depression Monitoring Depression Mon toño [facility] Start: 1951 COVID-19 VACCINE (#1) COVID-19 VACCI NE (#1) [facility] Start: 1951 Lipid panel Lipid Panel [facility] Start: 1950 Screening for malign ant neoplasm of colon [facility] End: 10-06-2023 Screening mammography bi 2-view breast inc cad JANET SCREENING Radiology Routine Encounter for screening mammogram for breast cancer 1 Occurrences starting 09/06/2022 until 10/06/2023 [facility] Work Phone: Comment on above: 1 Occurrences starti ng 09/06/2022 until 10/06/2023 [facility] Immunizations Immunization Date Immunization Notes Care Provider [facility] 08-03-2020 influenza, high dose seasonal, preservative-free Bipin Dennis MD Work Phone: [facility] 08-03-2020 zoster vaccine recombinant Bipin Dennis MD Work Phone: [facility] 08-03-2020 influenza virus vacc ine, unspecified formulation Stew Oswald MD Work Phone: [facility] 09-19-2019 Seasonal trivalent influenza vaccine, adjuvanted, preservative free Bipin Dennis MD Work Phone: [facility] 08-19-2018 pneumococcal polysaccharide vaccine, 23 valent Bipin Dennis MD Work Phone: [facility] 08-19-2018 Seasonal trivalent influenza vaccine, adjuvanted, preservative free Bipin Dennis MD Work Phone: [facility] 07-29-2017 influenza, high dose seasonal, preservative-free Bipin Dennis MD Work Phone: [facility] 03-26-2017 pneumococcal conjuga te vaccine, 13 valent Bipin Dennis MD Work Phone: [facility] 07-21-2016 influenza, seasonal, injectable Bipin Dennis MD Work Phone: [facility] 05-18-2015 zoster vaccine, live Bipin Dennis MD Work Phone: [facility] 04-21-2015 zoster vaccine, live Bipin Dennis MD Work Phone: [facility] 07-07-2013 influenza, seasonal, injectable Bipin Dennis MD Work Phone: [facility] 02-16-2011 tetanus toxoid, redu mayelin diphtheria toxoid, and acellular pertussis vaccine, adsorbed Bipin Dennis MD Work Phone: [facility] Payers Date Payer Category Payer Unknown [id number] 2024 Self-pay [id number] 2023 Unknown [id number] 2023 Medicaid [facility] MEDICA[facility] ONLY [id number] 2023 Medicare HMO [id number] 2023 Unknown [id number] 2021 Medicaid MEDICAID [facility] MEDICAID [id number] 2021-Present [phone] [address] [place] [address] Medicaid [id number] 2021 Medicaid [id number] 2021 Medicare [facility] AARP MEDICAR E [facility] AAR MEDICARE HMO [id number] 2021-Present [phone] [address] [address] [place] [address] HMO [id number] 2021 Private Health Insurance [id number] Medicare [id number] Unknown [facility] Indeed [facility] [id number] Unknown [id number] 462 Unknown [id number]. 462 Unknown [id number] 2.16.840.1.699386.3.579.2. 462 Unknown [id number] 2.16.840.1.419889.3.579.2. 462 Unknown [id number] 2.16.840.1.573134.3.579.2. 462 Unknown [id number] 2.16.840.1.200778.3.579.2. 462 Unknown [id number] 2.16.840.1.672729.3.579.2. 462 Unknown [id number] 2.16.840.1.146535.3.579.2. 462 Unknown [id number] 2.16.840.1.056368.3.579.2. 462 Unknown [id number] 2.16.840.1.724295.3.579.2. 462 Unknown [id number] 2.16.840.1.040583.3.579.2. 462 Unknown [id number] 2.16.840.1.178904.3.579.2. 462 Unknown [id number] 2.16.840.1.962835.3.579.2. 462 Unknown [id number] [id number]. 462 Social History Date Type Detail Facility [facility] ever [facility] Work Phone: Start: 1950 Sex Assigned At Female [facility] Start: 03-05-2020 End: 02-06-2025 Tobacco smoking status NHIS Ex-smoker [facility] History of tobacco use Current smoker [facility] Start: 03-05-2020 Tobacco use and exposure Smokeless tobacco non-user [facility] Start: 10-27-2021 Alcohol intake Current drinke r of alcohol (finding) [facility] Start: 03-05-2020 History SDOH Alcohol Comment rarely [facility] Start: 06-03-2020 History SDOH Financial 5 [facility] Start: 06-03-2020 History SDOH Food Worry 1 [facility] Start: 06-03-2020 History SDOH Transpo rt Med 2 [facility] Start: 03-05-2020 Tobacco Comment quit 20 years ago Cl [facility] Start: 1950 Sex Assigned At Not on file [facility] Tobacco smoking stat [facility] Tobacco smoking consumption unknown [facility] Start: 05-22-2022 End: 01-29-2025 Sex Female (finding) [facility] Start: 02-06-2025 End: 08-20-2025 Gender identity Not on file [facility] History of tobacco use Cigarette Smoker [facility] History of tobacco use Passive smoker [facility] Start: 02-06-2025 Tobacco use and exposure Former smokeless tobacco user [facility] Start: 02-06-2025 End: 03-25-2025 History of Social function [facility] Start: 03-25-2025 Alcoholic beverage intake Ex-drinker (finding) [facility] Clinical Notes 11-03-2021 to 07-13-2025 Telephone Encounter - Jade Hester - 07/13/2025 10:17 AM EDTTelephone Encounter - Jade Hester - 07/13/2025 10:17 AM EDTTelephone Encounter - Antonette Alvarez MA - 07/13/2025 8:41 AM EDT Note Date & Type Note Facility 07-13-2025 Telephone encounter Note Message released to [facility] as written. [facility] further questions if applicable: Verbalized understanding. Were all questions from office addressed or relayed to [facility] from encounter: Yes [facility] 07-13-2025 Miscellaneous Notes Message released to [facility] as written. [facility] further questions if applicable: Verbalized understanding. Were all questions from office addressed or relayed to [facility] from encounter: Yes Lm for Ketty [phone] to call the office back, please relay providers message Lm for Ketty [phone] to call the office back, please relay providers message. I sent in an Rx for Vimpat. Remind them that Vimpat is a controlled substance and I am only allowed to write for a month and two refills, so they have to call ahead to warn me when it is time to refill. MONAE Hdez ([facility]) called in stating patient has 1 dose left and is requesting script be sent. Please be advised [facility] has two does left Vimpat 100 MG tablet Dose: 100 mg Route: Oral Frequency: 2 times daily Dispense Quantity: 60 tablet (30 day supply) Refills: 2 Duration: 30 days Dispense As Written: Yes Sig: Take 1 tablet (100 mg) by mouth 2 times daily. If taking medication PRN, reason for taking medication: N/A If this is a controlled substance do you receive this or any other controlled medication from any other doctor or facility: N/A Ordering provider: Dr. Oswald Date of last office visit: 03/25/25 Date of next office visit: 09/24/25 Date of last refill: (see medication tab): 04/04/25 Updated/Validated preferred pharmacy: Yes Patient instructed to contact the pharmacy prior to picking up the medication: N/A documented in this encounter [facility] 07-13-2025 Telephone encounter Note Lm for Ketty [phone] to call the office back, please relay providers message [facility] 07-10-2025 Telephone encounter Note Lm for Ketty [phone] to call the office back, please relay providers message. [facility] 07-10-2025 Miscellaneous Notes Lm for Ketty [phone] to call the office back, please relay providers message. I sent in an Rx for Vimpat. Remind them that Vimpat is a controlled substance and I am only allowed to write for a month and two refills, so they have to call ahead to warn me when it is time to refill. [facility] called in stating patient has 1 dose left and is requesting script be sent. Please be advised [place] has two does left Vimpat 100 MG tablet Dose: 100 mg Route: Oral Frequency: 2 times daily Dispense Quantity: 60 tablet (30 day supply) Refills: 2 Duration: 30 days Dispense As Written: Yes Sig: Take 1 tablet (100 mg) by mouth 2 times daily. If taking medication PRN, reason for taking medication: N/A If this is a controlled substance do you receive this or any other controlled medication from any other doctor or facility: N/A Ordering provider: Dr. Oswald Date of last office visit: 03/25/25 Date of next office visit: 09/24/25 Date of last refill: (see medication tab): 04/04/25 Updated/Validated preferred pharmacy: Yes Patient instructed to contact the pharmacy prior to picking up the medication: N/A documented in this encounter [facility] 07-10-2025 Telephone encounter Note I sent in an Rx for Vimpat. Remind them that Vimpat is a controlled substance and I am only allowed to write for a month and two refills, so they have to call ahead to warn me when it is time to refill. [facility] 07-10-2025 Telephone encounter Note [facility] Hdez [facility] called in stating patient has 1 dose left and is requesting script be sent. Please be advised [facility] 07-09-2025 Telephone encounter Note [place] has two does left Vimpat 100 MG tablet Dose: 100 mg Route: Oral Frequency: 2 times daily Dispense Quantity: 60 tablet (30 day supply) Refills: 2 Duration: 30 days Dispense As Written: Yes Sig: Take 1 tablet (100 mg) by mouth 2 times daily. If taking medication PRN, reason for taking medication: N/A If this is a controlled substance do you receive this or any other controlled medication from any other doctor or facility: N/A Ordering provider: Dr. Oswald Date of last office visit: 03/25/25 Date of next office visit: 09/24/25 Date of last refill: (see medication tab): 04/04/25 Updated/Validated preferred pharmacy: Yes Patient instructed to contact the pharmacy prior to picking up the medication: N/A [facility] 03-25-2025 History of Present illness Narrative Images from the original note were not included. [facility] [address] [facility] [address] Dept: [phone] Dept Loc: [phone] Stew Oswald MD CHIEF COMPLAINT: Chief Complaint [...] She reports that she is actively seeing [facility] ("I saw them a couple of [...] Resource Strain: Low Risk (06/03/2020) Received from [facility] Overall Financial Resource Strain (CARDIA) Difficulty of Paying Living Expenses: Not hard at all Food Insecurity: No Food Insecurity (12/16/2024) Received from [facility] Hunger Vital Sign Worried About Running Out of Food in the Last Year: Never true Ran Out of Food in the Last Year: Never true Transportation Needs: No Transportation Needs (12/16/2024) Received from [facility] PRAPARE - Transportation Lack of Transportation (Medical): No Lack of Transportation (Non-Medical): No Physical Activity: Not on file Stress: Not on file Social Connections: Not on file Intimate Partner Violence: Not on file Housing Stability: Low Risk (12/16/2024) Received from [facility] Housing Stability Vital Sign Unable to Pay [...] intracranial process. Chronic changes and remote infarcts. Lamp Tester And Inspector: ALEXANDRO Transcribe Date/Time: Jan 11 2025 5:04P @RESULTINGLABINFO@ No results found for: "LEVETIRACETA", "FERRITIN", "CRP", "DANIEL", "ANCA" No results found for: "KIANNA", "IMMUNOGLOBUL", "OLIGOBANDS" No results found for: "TXH81DU", HEPCAB No results found for: "CRP", "ANATITER", [...] Artery Stenosis Father documented in this encounter [facility] [employer] 02-10-2025 Telephone encounter Note OK to send that place the order. [facility] 02-10-2025 Miscellaneous Notes OK to send that place the order. Called [employer]@ [phone]. HARVEY Kadi G- Auth is Valid if performed in facility. Called Ketty @ [facility] [phone] LM. Ketty-from [facility], said patient was ordered a Vascular US carotic arteries bilateral Ins won't pay if she goes by a cot and this is only way patient can be transferred However, the facility does have a company that comes to [facility] And can do the Vascular US at [facility] Would this be OK? -Ketty at [facility] documented in this encounter [facility] 02-10-2025 Telephone encounter Note Called [employer]@ [phone]. HARVEY Kadi G- Auth is Valid if performed in facility. [facility] Ket[facility] [phone] LM. [facility] 02-10-2025 Telephone encounter Note Ketty-from [facility], said patient was ordered a Vascular US carotic arteries bilateral Ins won't pay if she goes by a cot and this is only way patient can be transferred However, the facility does have a company that comes to [facility] And can do the Vascular US at [facility] Would this be OK? -Ketty at [facility] 02-06-2025 History of Present illness Narrative Images from the original note were not included. [facility] [address] [facility] [facility] [address] Dept: [phone] Dept Loc: [phone] Stew Oswald MD CHIEF COMPLAINT: Chief Complaint [...] Resource Strain: Low Risk (06/03/2020) Received from [facility], [facility] Overall Financial Resource Strain (CARDIA) Difficulty of Paying Living Expenses: Not hard at all Food Insecurity: No Food Insecurity (12/16/2024) Received from [facility] Hunger Vital Sign Worried About Running Out of Food in the Last Year: Never true Ran Out of Food in the Last Year: Never true Transportation Needs: No Transportation Needs (12/16/2024) Received from [facility] PRAPARE - Transportation Lack of Transportation (Medical): No Lack of Transportation (Non-Medical): No Physical Activity: Not on file Stress: Not on file Social Connections: Not on file Intimate Partner Violence: Not on file Housing Stability: Low Risk (12/16/2024) Received from [facility] Housing Stability Vital Sign Unable to Pay [...] left Gait and Station: wheelchair bound DATA [facility] Outside Information Results MR brain wo contrast (Order [id number]) MR brain wo contrast Order: [id number] Impression IMPRESSION: No acute intracranial process. Chronic changes and remote infarcts. Lamp Tester And Inspector: PSCB Transcribe Date/Time: Jan 11 2025 5:04P Dictated by : DELBERT HYATT MD This examination was interpreted and the report reviewed and electronically signed by: DELBERT HYATT MD on Jan 11 2025 5:50PM EST Narrative DATE OF EXAM: Jan 11 2025 4:24PM [facility] 0294 - MRI BRAIN WO IVCON / [...] End: 01/11/25 16:24 Specimen Collected: 01/11/25 16:24 [facility] Outside Information Results CT head wo IV contrast (Order [id number]) CT head wo IV contrast Order: [id number] Impression IMPRESSION: Chronic changes without evidence for acute intracranial abnormality. Lamp Tester And Inspector: PSCB Transcribe Date/Time: Jan 09 2025 7:59P Dictated by : HAMILTON LERMA MD This examination was interpreted and the report reviewed and electronically signed by: HAMILTON LERMA MD on Jan 09 2025 8:01PM EST Narrative Final Report * * DATE OF EXAM: Jan 09 2025 7:58PM [facility] 0504 - CT BRAIN WO IVCON / [...] 19:58 Last Resulted: 01/09/25 20:03 Received From: [facility] Result Received: 01/19/25 14:05 View Encounter Received Information CT head wo IV contrast Order: [id number] Impression IMPRESSION: Stable chronic changes with no acute intracranial process identified. Lamp Tester And Inspector: ALEXANDRO Transcribe Date/Time: Dec 14 2024 4:59P Dictated by : FANTA WOODWARD MD This examination was interpreted and the report reviewed and electronically signed by: FANTA WOODWARD MD on Dec 14 2024 5:00PM EST Narrative Final Report * * DATE OF EXAM: Dec 14 2024 4:34PM [facility] 0504 - CT BRAIN WO IVCON / [...] End: 12/14/24 16:34 Specimen Collected: 12/14/24 16:34 [facility] Outside Information EPIL EEG BEDSIDE/PORTABLE - 20 MINUTE ONLY W/VIDEO Narrative Performed by NEUROLOGY [facility] EPIL EEG Bedside/Portable - 20 minute only w/video [[id number]] Patient name: ELBA DIAZ Start of test: 01/10/2025 17:08 End of test: 01/10/2025 17:32 Duration: 0 hr 24 min Requested By: NILTON RODRIGUEZ Staff Physician: Ankit Fairbanks EEG Fellow or [place]: Aura Hilliard History: Elba Diaz is a [...] and electronically signed by Ankit Fairbanks MD, [facility] 3 yr ago Rn Labor And Delivery [facility] EPIL EEG Bedside/Portable - 20 minute only w/video [[id number]] Patient name: ELBA DIAZ Date of test: 11/03/2021 Duration: 0 hr 24 min Requested By: PINO PANIAGUA Staff Physician: Adriano Davies EEG Fellow or [place]: Vianney Ramirez History: 71 year old female [...] Adriano Davies M.D. Component 3 yr ago Rn Labor And Delivery [facility] EPIL EEG BEM - Continuous bedside w/video includes portable EEG read [[id number]] Patient name: ELBA DIAZ Date of test: 02/14/2021 Requested By: RAMOS BUSTAMANTE Staff Physician: Ankit Rico D.O. EEG Fellow or [place]: Dee Wasserman History: This is a 70 [...] by Marco A Viera 3 yr ago Rn Labor And Delivery [facility] EPIL EEG BEM - Continuous bedside w/video includes portable EEG read [[id number]] Patient name: ELBA DIAZ Date of test: 02/13/2021 Requested By: RAMOS BUSTAMANTE Staff Physician: Ankit Rico D.O. EEG Fellow or [place]: Dee Wasserman History: This is a 70 [...] D.O. Date of signin02/14/2021 3 yr ago Rn Labor And Delivery [facility] EPIL EEG BEM - Continuous bedside w/video includes portable EEG read [[id number]] Patient name: ELBA DIAZ Date of test: 02/12/2021 Requested By: RAMOS BUSTAMANTE Staff Physician: Ankit Rico D.O. EEG Fellow or [place]: Crystal Quiroga History: This is a 70 [...] D.O. Date of signin02/13/2021 3 yr ago Rn Labor And Delivery [facility] EEG Bedside/Portable - 20 minute only w/video [[id number]] Patient name: ELBA DIAZ Date of test: 02/12/2021 Duration: 0 hr 24 min Requested By: GUTIERREZ SHANNON Staff Physician: Ankit Rico EEG Fellow or [place]: Tony Paniagua History: This is a 70 [...] D.O. Date of signin02/13/2021 3 yr ago Rn Labor And Delivery [facility] EPIL EEG BEM - Continuous bedside w/video includes portable EEG read [[id number]] Patient name: ELBA DIAZ Date of test: 02/10/2021 Requested By: OG FORREST Staff Physician: Ankit Rico D.O. EEG Fellow or [place]: Dee Wasserman History: Patient is a 70 [...] D.O. Date of signin02/11/2021 3 yr ago Rn Labor And Delivery [facility] EPIL EEG BEM - Continuous bedside w/video includes portable EEG read [[id number]] Patient name: ELBA DIAZ Date of test: 02/09/2021 Requested By: OG FORREST Staff Physician: Ankit Rico D.O. EEG Fellow or [place]: Dee Wasserman History: Patient is a 70 [...] Date of signin02/10/2021 Component 3 yr ago Rn Labor And Delivery [facility] EPIL EEG Bedside/Portable - 20 minute only w/video [[id number]] Patient name: ELBA DIAZ Date of test: 02/08/2021 Duration: 0 hr 23 min Requested By: AISSATOU CARVER Staff Physician: Lincoln Sanz EEG Fellow or [place]: Jaycee Lieberman History: Patient is a 70 [...] recording. Interpreted and electronically signed by Lincoln Sazn M.D., Ph.D. Date of signin02/08/2021 3 yr ago Rn Labor And Delivery [facility] EPIL EEG BEM - Continuous bedside w/video includes portable EEG read [[id number]] Patient name: ELBA DIAZ Date of test: 02/08/2021 Requested By: OG FORREST Staff Physician: Ankit Rico D.O. EEG Fellow or [place]: Dee Wasserman History: Patient is a 70 [...] D.O. Date of signin02/09/2021 Resulting Agency NEUROLOGY [facility] Outside Information CT BRAIN WO IVCON Anatomical Region Laterality Modality Head -- Computed Tomography Impression IMPRESSION: 1. No CT evidence of acute intracranial abnormalities. 2. Large area of encephalomalacia within right middle cerebral artery distribution infarct compatible with previous chronic infarct. 3. Chronic small vessel ischemic white matter disease and diffuse cerebral volume loss. Lamp Tester And Inspector: PSCB Transcribe Date/Time: Feb 07 2021 11:33A Dictated by : VANNA FULTON MD [facility] Outside Information CT BRAIN WO IVCON Anatomical [...] or proximal occlusion is seen of the [place] of Light. See above for details. 2. [...] Etiology is uncertain. Follow-up could be considered. Lamp Tester And Inspector: ALEXANDRO Transcribe Date/Time: Feb 01 2021 9:53A 4 yr ago Rn Labor And Delivery Echocardiography Report: Transthoracic Echo [facility] Date of service: 02/24/2020 1:07:58 PM Ordering physician: JOSE Parekh Indication: Stroke Technologist: Debra Light [facility] Interpreting physician: Shun Sheldon DO PATIENT: Name: [...] as late effect of cerebrovascular accident (CVA) ([facility]) I am missing the neurology consult from [...] arranging for studies. documented in this encounter [facility] 01-13-2025 Note HNO ID: [id number] Author: NILTON RODRIGUEZ DO Service: Hospital Medicine Author Type: Physician Type: Progress Notes Filed: 01/13/2025 18:34 Note Text: Documentation Query Please clarify Diagnosis associated with clinical indicators Other unspecified anemia This document will become part of the patient's medical record. [facility] 01-13-2025 Note HNO ID: [id number] Author: NILTON RODRIGUEZ DO Service: Hospital Medicine Author Type: Physician Type: Progress Notes Filed: 01/13/2025 18:33 Note Text: Documentation Query Patient admitted with Change in Mental Status AND Right sided weakness symptoms) Please clarify the diagnosis associated with clinical indicators Other unable to clinically determine This document will become part of the patient's medical record. [facility] 01-13-2025 Note HNO ID: [id number] Author: CELESTE ARTIS LSW Service: Care Management Author Type: Project Program Manager Type: Care Mgt Progress Note Filed: 01/13/2025 [...] Ambulance Transportation Agency and Phone #:: [facility] ( [facility] ) [phone] / [phone] Date of Trip: 01/13/25 Time of Trip: 1929 Type of Service: BLS Non-emergency Director Of Medical Staff Services Location: [facility] Destination: [facility] Handoff Communication: Handoff to: Other Caregiver Other Caregiver Name/Phone: [facility]. RN to call report Additional Information: Patient to discharge this date [facility] scheduled through [employer]. Son and patient notified and agreeable to arrangements. Summary of Care, DC Summary, and AVS sent to facility. Transport packet on chart. RN notified. SIGNATURE: WILSON Hernandez PATIENT NAME: lEba Wolfshalini DATE: January 13, 2025 TIME: 5:05 PM [facility] 01-13-2025 Note HNO ID: [id number] Author: CELESTE ARTIS LSW Service: Care Management Author Type: Project Program Manager Type: Care Mgt Progress Note Filed: 01/13/2025 17:02 Note Text: CARE MANAGEMENT PROGRESS NOTE SERVICE DATE: 01/13/2025 SERVICE TIME: 5:00pm LOS: 4 days IMM Follow Up Copy Given: Yes Copy given to:: Patient Method: In Person SIGNATURE: WILSON Hernandez PATIENT NAME: Elba Diaz DATE: January 13, 2025 TIME: 5:02 PM [facility] 01-12-2025 Note HNO ID: [id number] Author: NILTON RODRIGUEZ DO Service: Hospital Medicine Author Type: Physician Type: Progress Notes Filed: 01/12/2025 17:15 Note Text: DEPARTMENT OF HOSPITAL MEDICINE PROGRESS NOTE SERVICE DATE: 01/12/2025 SERVICE TIME: 5:14 PM Hospital Medicine/Primary Attending: Nilton Rodriguez DO NIGHT AND WEEKEND [facility] After 7pm, please call cross cover pager #[phone] Subjective Patient seen and examined, denies complaints [...] and Airways Line Duration Peripheral 01/09/25 1245 [facility] Short Right Hand 20 Gauge 3 days Peripheral 01/09/25 1910 [facility] Right Antecubital 20 Gauge 2 [...] January 12, 2025 TIME: 5:14 PM etx [id number] [facility] 01-12-2025 Note HNO ID: [id number] Author: JOSE MCRAE RN Service: Care Management Author Type: Registered Nurse Type: Care Mgt Progress Note Filed: 01/12/2025 13:38 Note Text: CARE MANAGEMENT PROGRESS NOTE SERVICE DATE: 01/12/2025 SERVICE TIME: 1337 LOS: 3 days Needs Prior to Discharge: To Be Determined, Discharge Transportation Chart reviewed. Updates sent to [facility]. Patient is LTC at facility, plan to return. Transport folder placed on chart. CM will continue to follow. SIGNATURE: Jose Mcrae RN PATIENT NAME: Elba Diaz DATE: January 12, 2025 TIME: 1:37 PM [facility] 01-11-2025 Note HNO ID: [id number] Author: NILTON RODRIGUEZ DO Service: Hospital Medicine Author Type: Physician Type: Progress Notes Filed: 01/11/2025 15:44 Note Text: DEPARTMENT OF HOSPITAL MEDICINE PROGRESS NOTE SERVICE DATE: 01/11/2025 SERVICE TIME: 3:31 PM Hospital Medicine/Primary Attending: Nilton Rodriguez, DO NIGHT AND WEEKEND COVERAGE: JUNE COVERAGE: After 7pm, please call cross cover pager #[phone] Subjective Patient examined with son at bedside [...] and Airways Line Duration Peripheral 01/09/25 1245 [facility] Short Right Hand 20 Gauge 2 days Peripheral 01/09/25 1910 [facility] Right Antecubital 20 Gauge 1 [...] January 11, 2025 TIME: 3:31 PM etx [id number] [facility] 01-11-2025 Note HNO ID: [id number] Author: SAUNDRA BARNO RN Service: Care Management Author Type: Registered [...] Relation: Daughter Admission Status: Inpatient Insurance Provider: [employer] SNP Discharge Planning requested by: Per Department Practice Potential Transition Plans Group Home Facility/Intermediate Care Facility Advance Directives Current Advance Directive: Health Care Power of Linen Supervisor In Chart: No Ct Tech Attempted to Assist with AD Completion: Yes [...] Wheelchair-manual Discharge Planning Patient Goal(s): General wellness [place] Explained: [place] Given: No Reason Not Given: [...] Transportation: pt will need cot transportation at tx , ambulance form completed Equipment Prior to Admission: wheelchair Support: pt from [facility] Patient confused, spoke with pt's jose Martínez , pt typically A+Ox3 at baseline, states that pt came from [facility], pt here for AMS, would like for pt to return to [facility] at tx, CM will continue to follow SIGNATURE: Saundra Baron RN PATIENT NAME: Elba Diaz DATE: January 11, 2025 TIME: 3:27 PM [facility] 01-10-2025 Note HNO ID: [id number] Author: NILTON RODRIGUEZ DO Service: Hospital Medicine Author Type: Physician Type: Progress Notes Filed: 01/10/2025 17:50 Note Text: DEPARTMENT OF HOSPITAL MEDICINE PROGRESS NOTE SERVICE DATE: 01/10/2025 SERVICE TIME: 5:37 PM Hospital Medicine/Primary Attending: Nilton Rodriguez, DO NIGHT AND WEEKEND COVERAGE: [place] COVERAGE: After 7pm, please call cross cover pager #[phone] Subjective Patient examined with son and daughter [...] and Airways Line Duration Peripheral 01/09/25 1245 [facility] Short Right Hand 20 Gauge 1 day Peripheral 01/09/25 1910 [facility] Right Antecubital 20 Gauge <1 [...] January 10, 2025 TIME: 5:37 PM etx [id number] [facility] 01-09-2025 Note SARS-COV-2 (AGENT OF COVID-19) RNA: Not detected INFLUENZA A RNA: Not detected INFLUENZA B RNA: Not detected RESPIRATORY SYNCYTIAL VIRUS (RSV) RNA: Not detected [facility] Comment on above: Performed By: #### 9 [id number] ####[facility] LABORATORYCLIA [id number] [place] [address] [place] 01-01-2025 Telephone encounter Note Pt is added on the wait list [facility] 01-01-2025 Miscellaneous Notes Pt is added on the wait list Name of caller: Sari Contact phone number: [phone] Relationship to Patient: [facility] Provider: New Patient/Dr. Oswald Practice: [...] their call: N/A documented in this encounter [facility] 01-01-2025 Telephone encounter Note Name of caller: Sari Contact phone number: [phone] Relationship to Patient: [facility] Provider: New Patient/Dr. Oswald Practice: [...] business hours to return their call: N/A [facility] 12-18-2024 Note HNO ID: [id number] Author: MARTIN MCCALL LSW Service: Care Management Author Type: Project Program Manager Type: Care Mgt Progress Note Filed: 12/18/2024 11:19 Note Text: CARE MANAGEMENT DISCHARGE NOTE SERVICE DATE: December 18, 2024 SERVICE TIME: 11:15 AM Admission Date: 12/14/2024 LOS: 3 days Discharge Arrangement Discharge Arrangement: Group Home Facility Services Arranged Return to SNF Provider Name: Dr. Helms Phone: [phone] Caregiver Assessment Transportation Arrangements Transportation Arrangements: Ambulance Transportation Agency and Phone #:: [facility] ( [facility] ) [phone] / [phone] Date of Trip: 12/18/24 Time of Trip: 1430 Type of Service: ALS Non-emergency Was transportation financial coverage discussed with family?: Patient Director Of Medical Staff Services Location: [facility] Destination: [facility] Handoff Communication: Handoff to: Travel Accommodations Rater Additional Information: [facility] [id number] Pt is transporting back to [facility] at 2:30pm via [facility]cot. Packet on chart. SW called SNF, they are asking for updated clinicals. Sent via [employer]. RN to call [phone] for N2N REPORT, pt is in [address]. Son was made aware over the phone. No other dc needs at this time. SIGNATURE: WILSON Soliman PATIENT NAME: Elba Diaz DATE: December 18, 2024 TIME: 11:15 AM Ext [id number] [facility] 12-18-2024 Note HNO ID: [id number] Author: MARK DAMON RPh Service: Pharmacy Author [...] discharge medication list. Mark Damon RPh Pager: [phone] 12/18/2024 11:14 AM Medication List CONTINUE taking [...] hr patch Generic drug: estradiol [facility] 12-18-2024 Note HNO ID: [id number] Author: DANILO HELMS MD Service: Hospital Medicine Author Type: Physician Type: Progress Notes Filed: 12/18/2024 10:29 Note Text: Documentation Query Please specify a diagnosis associated with the Clinical Indicators for this patient Obesity This document will become part of the patient's medical record. [facility] 12-17-2024 Note HNO ID: [id number] Author: DANILO HELMS MD Service: Hospital Medicine Author Type: Physician Type: Progress Notes Filed: 12/17/2024 18:51 Note Text: Documentation Query Please clarify the Diagnosis associated with clinical indicators Delirium Only This document will become part of the patient's medical record. [facility] 12-17-2024 Note HNO ID: [id number] Author: DANILO HELMS MD Service: Hospital Medicine Author Type: Physician Type: Progress Notes Filed: 12/17/2024 18:53 Note Text: DEPARTMENT OF HOSPITAL MEDICINE PROGRESS NOTE SERVICE DATE: 12/17/2024 SERVICE TIME: 3:32 PM Hospital Medicine/Primary Attending: Danilo Helms MD NIGHT AND WEEKEND COVERAGE: After 7pm please page [phone] CHIEF COMPLAINT: Follow-up for change in mental [...] TID PRN sodium chloride 0.65 % 2 [place] 2 [place] EACH NOSTRIL PRN prochlorperazine 10 mg injection [...] and Occupational Therapy recommending return back to [facility] facility/ECF. 5. Hypokalemia. Repleting with oral potassium 40 mg 3 times a day x 3 doses. VTE Prophylaxis: As per primary team Disposition: Extended Care Facility Plan of care discussed with: Provider, RN, Patient SIGNATURE: Danilo Helms MD PATIENT NAME: Elba Diaz DATE: December 17, 2024 TIME: 3:32 PM PAGER/CONTACT #: Mili angela [facility] 12-17-2024 Note HNO ID: [id number] Author: MARK DAMON RPh Service: Pharmacy Author Type: Pharmacist Type: Plan of Care Filed: 12/17/2024 15:36 Note Text: PHARMACY MEDICATION REVIEW Patient Name: Elba Diaz : 1950 The following medications were updated within the FOOD BROKER medication list: Medications ADDED to FOOD BROKER medication list N/A Medications CHANGED on FOOD BROKER medication list Iron 1 tablet daily to one tablet every other day Calcium 500 mg to 600 mg daily Medications REMOVED from FOOD BROKER medication list Protonix Keppra Gabapentin Docusate Cholestyramine Amitriptyline Citalopram Additional comments: [facility] The below information represents the best possible medication history: Yes Medication history completed by: Pharmacist: Mark Damon RPh Source of history: residential/Other MAR - [facility] Medication nonadherence identified: Unable to assess Reconciliation completed: Yes Completed by: DAMIAN All FOOD BROKER medications addressed by DAMIAN Patient interested in Bedside Delivery Services or using OP Pharmacy at discharge? Unable to assess Preferred outpatient pharmacy: [facility] [place] [address] - [address] [place] [address] Allergies: Codeine Other: See Comments Comment:nausea Prior [...] stay upright for 30 min. *Mondays between 8075-0029* aspirin, enteric coated (ASPIR-81) 81 mg EC [...] at bedtime. Facility-Administered Medications: None [facility] 12/17/2024 [facility] 12-16-2024 Note HNO ID: [id number] Author: DANILO HELMS MD Service: Hospital Medicine Author Type: Physician Type: Progress Notes Filed: 12/16/2024 15:36 Note Text: DEPARTMENT OF HOSPITAL MEDICINE PROGRESS NOTE SERVICE DATE: 12/16/2024 SERVICE TIME: 3:32 PM Hospital Medicine/Primary Attending: Danilo Helms MD NIGHT AND WEEKEND COVERAGE: After 7pm please page [phone] CHIEF COMPLAINT: Follow-up for change in mental [...] TID PRN sodium chloride 0.65 % 2 [place] 2 [place] EACH NOSTRIL PRN prochlorperazine 10 mg injection [...] and Occupational Therapy recommending return back to [facility]p facility/ECF. 5. Hypokalemia. Will replete with oral potassium 40 mg 3 times a day x 3 doses. VTE Prophylaxis: As per primary team Disposition: Extended Care Facility Plan of care discussed with: Provider, RN, Patient SIGNATURE: Danilo Helms MD PATIENT NAME: Elba Diaz DATE: December 16, 2024 TIME: 3:32 PM PAGER/CONTACT #: Mili Rios [facility] 12-16-2024 Note HNO ID: [id number] Author: LOIS MENA RN Service: Care Management [...] Relation: Daughter Admission Status: Inpatient Insurance Provider: [employer] [place] SNP Discharge Planning requested by: Per Department Practice Potential Transition Plans Group Home Facility/Intermediate Care Facility Advance Directives Current Advance Directive: Health Care Power of Linen Supervisor In Chart: No Ct Tech Attempted to Assist with AD Completion: No Unable to Assist Due To:: Delirium Current Living Arrangements and Support Lives with: Alone Type of Residence: Extended Care Facility Does the patient have to climb stairs at home?: No Care Facility Name: [facility] Mel Support: Children How do you manage to accomplish the following: Dependent: Ambulation, Bathe/Shower, Dress, Meals/Meal Prep, Going to the bathroom, Medication Management, Transportation to appointments/community Current Services/Equipment Current Post-Acute Service(s): DME Current DME Type: [facility] [employer] Discharge Planning Patient Goal(s): General wellness [place] Explained: [place] of Choice Given: Yes Are you interested in bedside delivery of your medications? No Discharge Planning Participant(s): Children Patient/Family Comments: Caregiver Assessment: Caregiver is ready, willing and able to meet the patient's needs as recommended by the inter-professional team: Yes Name of Caregiver: [facility] Transport at Discharge: Transportation Arrangements: Ambulance Director Of Medical Staff Services Location: [facility] Needs Prior to Discharge: Needs Prior to Discharge: To Be Determined Post-Acute Discharge Plan: Spoke to jose Martínez. Patient is LTC resident at [facility], with plans to return. [facility] tasked to send return referral via [employer]. Patient is non ambulatory and uses a [facility] for transfers. Therapy recs ECF. Anticipate return to ECF once medically ready. Will need cot transport at ID. to continue to follow. SIGNATURE: Lois Mena RN PATIENT NAME: Elba Diaz DATE: December 16, 2024 TIME: 11:16 AM [facility] 12-15-2024 Note HNO ID: [id number] Author: DANILO HELMS MD Service: Hospital Medicine Author Type: Physician Type: Progress Notes Filed: 12/15/2024 17:34 Note Text: DEPARTMENT OF HOSPITAL MEDICINE PROGRESS NOTE SERVICE DATE: 12/15/2024 SERVICE TIME: 5:31 PM Hospital Medicine/Primary Attending: Danilo Helms MD NIGHT AND WEEKEND COVERAGE: After 7pm please page [phone] CHIEF COMPLAINT: Follow-up for urinary tract infection [...] evaluate in anticipation of return back to usp facility/ECF. VTE Prophylaxis: As per primary team Disposition: Extended Care Facility Plan of care discussed with: Provider, RN, Patient SIGNATURE: Danilo Helms MD PATIENT NAME: Elba Diaz DATE: December 15, 2024 TIME: 5:31 PM PAGER/CONTACT #: mili miller [facility] 12-14-2024 Note SARS-COV-2 (AGENT OF COVID-19) RNA: Not detected INFLUENZA A RNA: Not detected INFLUENZA B RNA: Not detected RESPIRATORY SYNCYTIAL VIRUS (RSV) RNA: Not detected [facility] Comment on above: Performed By: #### 9 5941-1 ####[facility] LABORATORYCLIA [id number] [address] [facility] 09-06-2022 Note Patient Outreach (IN TMMN) ELAB DIAZ ([id number]) 1950 F CHT Date Time Provider Department 09/06/22 MARCUS TIERNEY During your visit today, we recorded the following information about you: Allergies As of Date: 09/06/2022 Noted Allergy Reaction CODEINE 03/26/2017 14 - Other: See Comments Comments: nausea Date Reviewed: 11/06/2021 Reviewed by: Carrie Amaya RN - Fully Assessed Visit Diagnosis:Encounter for screening mammogram for breast cancer [Z12.31] Order(s):[facility] SCREENING [2700213] Order #: [id number] FUTURE Prescriptions as of 09/11/2022 - divalproex [...] BY MOUTH EVERY DAY - Mth-Me Blue-Sod Xfvv-ChUfi-Zic (URIBEL) 118-10-40.8-36 mg Take 1 capsule by [...] Encounter Status:Closed by ANABEL STUART on 09/11/22 [facility] 06-21-2022 Miscellaneous Notes Called and left patient a VM to see about moving her appt w Dr. Dennis on the to the . Marie Vences June 21, 2022 10:40 AM documented in this encounter [facility] 06-19-2022 Miscellaneous Notes Called and left patient a VM about switching appointment from Jul 18 to the . Marie Vences June 19, 2022 10:36 AM documented in this encounter [facility] 03-22-2022 Note HNO ID: [id number] Author: Population Health Navigator Liz Varela Service: ? Author Type: ? Type: Progress Notes Filed: 03/22/2022 12:30 PM Note Text: POPULATION HEALTH NAVIGATION OUTREACH Action/FYI Dear Dr. Tierney, Our Population Health Navigation team is completing an outreach regarding open HCC gaps. This patient currently has the following open HCC gap(s) listed: I72.9 - Aneurysm (HCC) - [id number] Last Billed 04/20/2020 An attempt has been made to reach the patient to schedule another office visit this year to address the above issues. If these are no longer issues, please resolve them from the problem list. Thank you, Population Health Navigator iLz Varela ~~~~~~~~~~~~~~~~~~~~~~~~ HCC Gaps 1st attempt- Voicemail not set up for patient daughter Tammie to return my call to schedule for HCC. 2nd attempt- MYCHART message sent. Patient is on HCC list for below gaps and needs appt to address : I72.9 - Aneurysm (HCC) - [id number] Last Billed 04/20/2020 Annual Wellness/PCP visit/ BP CONTROLLED - last visit 10/27/2020 Pt identified by name and : NO Outreach Outcome/Action Unable to reach patient: Phone number not valid / voicemail full [employer] message sent Did you use a PCP flex slot to schedule this appointment? N/A Reason for Outreach HCC or suspected condition Payer: Payor: [facility] MEDICARE / Plan: UHC AARP MEDICARE HMO [...] Liz Varela March 22, 2022 12:15 PM [facility] 03-22-2022 Note Patient Outreach (NE TNAV) ELBA DIAZ ([id number]) 1950 F CHT Date Time Provider Department 03/22/22 LIZ VARELA During your visit today, we recorded the following information about you: Population Health Navigator Liz Varela 03/22/2022 12:30 PM Signed POPULATION HEALTH NAVIGATION OUTREACH Action/FYI Dear Dr. Tierney, Our Population Health Navigation team is completing an outreach regarding open HCC gaps. This patient currently has the following open HCC gap(s) listed: I72.9 - Aneurysm (HCC) - [id number] Last Billed 04/20/2020 An attempt has been [...] call to schedule for HCC. 2nd attempt- Togethe[employer]ART message sent. Patient is on HCC list for below gaps and needs appt to address : I72.9 - Aneurysm (HCC) - [id number] Last Billed 04/20/2020 Annual Wellness/PCP visit/ BP CONTROLLED - last visit 10/27/2020 Pt identified by name and : NO Outreach Outcome/Action Unable to reach patient: Phone number not valid / voicemail full MyChart message sent Did you use a PCP flex slot to schedule this appointment? N/A Reason for Outreach HCC or suspected condition Payer: Payor: [facility] MEDICARE / Plan: UHC AARP MEDICARE HMO [...] BY MOUTH EVERY DAY - Mth-Me Blue-Sod Xtei-AlDzz-Obb (URIBEL) 118-10-40.8-36 mg Take 1 capsule by mouth once daily. - levothyroxine (SYNTHROID) 125 mcg tablet TAKE 1 TABLET BY MOUTH EVERY MORNING BEFORE BREAKFAST - aspirin, enteric coated (ASPIR-81) 81 mg EC tablet Take 81 mg by mouth once daily. - calcium carbonate-vitamin D3 (CALCIUM 500+D) 500 mg(1,250mg) -400 unit chew (more content not included)... [facility] 11-03-2021 History of Past i llness Narrative Problem Noted Date Resolved Date AMS (altered mental status) 11/03/202110/22 Altered mental status 10/21/2021 11/07/2021 Acute renal insufficiency 05/16/20202020 DAVEY (acute kidney injury) 05/14/20202020 documented as of this encounter (statuses as of 06/19/2022) [facility] History of Past illness Narrative* Problem Noted Date Resolved Date AMS (altered mental status) 11/03/202110/22 Altered mental status 10/21/2021 11/07/2021 Acute renal insufficiency 05/16/20202020 DAVEY (acute kidney injury) 05/14/20202020 documented as of this encounter (statuses as of 06/21/2022) [facility] History of Past illness Narrative* Problem Noted Date Resolved Date AMS (altered mental status) 11/03/202110/22 Altered mental status 10/21/2021 11/07/2021 Acute renal insufficiency 05/16/20202020 DAVEY (acute kidney injury) 05/14/20202020 documented as of this encounter (statuses as of 09/11/2022) [facility] noteNo assessment information availableWFairfield Medical Center Work Phone: Evaluation note* Diagnosis Encounter for screening mammogram for breast cancer [facility]* Diagnosis Focal epilepsy with impairment of consciousness, intractable (HCC)- Primary Localization-related (focal) (partial) epilepsy and epileptic syndromes with simple partial seizures, with intractable epilepsy Carotid stenosis, symptomatic, with infarction (HCC) Hemiparesis affecting left side as late effect of cerebrovascular accident (CVA) (HCC) [facility] Diagnosis Focal epilepsy with impairment of consciousness, intractable (HCC)- Primary Localization-related (focal) (partial) epilepsy and epileptic syndromes with simple partial seizures, with intractable epilepsy Carotid stenosis, symptomatic, with infarction (HCC) Hemiparesis affecting left side as late effect of cerebrovascular accident (CVA) (HCC) [facility]* Diagnosis Focal epilepsy with impairment of consciousness, intractable (HCC) Localization-related (focal) (partial) epilepsy and epileptic syndromes with simple partial seizures, with intractable epilepsy [facility]* Diagnosis Focal epilepsy with impairment of consciousness, intractable (HCC) Localization-related (focal) (partial) epilepsy and epileptic syndromes with simple partial seizures, with intractable epilepsy documented in this encounter [facility] for referral (narrative)* Diagnostic Procedure Only (Routine) - Pending Review Specialty Diagnoses / Procedures Referred By Contac t Referred To Contact [facility] Diagnoses Encounter for screening mammogram for breast cancer Procedures [facility] SCREENING SCREENING MAMMOGRAPHY BI 2-VIEW BREAST INC Marcus Lepe MD [address] [place] [address] Imaging [address] [place] [address] Referral ID Status Reason Start Date Expiration Date Visits Requested Visits Authorized [id number] Pending Review Auto-Generat ed Referral 2 10/06/2023 1 1 [facility] for referral (narrative)No reason for referral information availableWFairfield Medical Center Work Phone: Summary Purpose Family History No Family History Records FoundNo Family History Records FoundNo Family History Records FoundNo Family History Records FoundNo Family History Records FoundNo Family History Records FoundNo Family History Records Found No Information Available No Family History Records Found No Information Available [...] 2:43 PM Hospital Course Note HNO ID: [id number] Author: Rk Shannon Service: Hospital Medicine Author [...] Complaint and Reason for Visit Chief Complaint FDC LABWORK FDC LABWORK FDC LABWORK FDC BLOOD WORK FDC LABWORK FDC LAB WORK Chief Complaint FDC LABWORK FDC LABWORK FDC BLOOD WORK FDC LABWORK FDC LAB WORK Chief Complaint FDC BLOOD W ORK FDC LABWORK FDC LAB WORK FDC LABWORK Chief Complaint FDC LABWORK Chief Complaint FDC LABWORK FDC LAB WORK Chief Complaint FDC LAB WOR K FDC LAB WORK Chief Complaint FDC LAB WOR K FDC LAB WORK FDC LAB WORK Chief Complaint FDC LABWORK LABWORK Chief Complaint FDC LABWORK LABWORK LABWORK Chief Complaint LABWORK LABWORK FDC LABWORK Chief Complaint LABWORK LABWORK FDC LABWORK LABWORK Chief Complaint Admit Date LABWORK October 27, 2024 5: 00am FDC LAB WORK November 27, 2024 5:00am LAB WORK December 22, 2024 2:30 pm LAB WORK December 24, 2024 5:00 am LAB WORK December 30, 2024 2:0 0am LABWORK December 31, 2024 5:0 0am LABWORK January 14, 2025 5:0 0am Chief Complaint Admit Date FDC LAB WORK November 27, 2024 5:00am LAB WORK December 22, 2024 2:30 pm LAB WORK December 24, 2024 5:00 am LAB WORK December 30, 2024 2:0 0am LABWORK December 31, 2024 5:0 0am LABWORK January 14, 2025 5:0 0am LABWORK March 06, 2025 5:00a m Chief Complaint Admit Date LABWORK March 06, 2025 5:00a m FDC LAB WORK April 01, 2025 4: 00pm Chief Complaint Admit Date LABOWRK June 17, 2025 5: 00am FDC LAB WORK June 23 5:00am FDC LAB WORK July 22, 2025 11:30am Additional Source Comments INFORMATION SOURCE (unrecogn ized section and content) DATE CREATED AUTHOR 05/19/2020 [facility] DATE CREATED AUTHOR AUTHOR'S ORGANIZ ATION 05/19/2020 [facility] DATE CREATED AUTHOR AUTHOR'S ORGANIZ ATION 08/17/2020 [facility] DATE CREATED AUTHOR AUTHOR'S ORGANIZ ATION 11/12/2020 [facility] ([place] DATE CREATED AUTHOR AUTHOR'S ORGANIZ ATION 07/29/2021 [facility] DATE CREATED AUTHOR AUTHOR'S ORGANIZ ATION 09/11/2022 [facility] DATE CREATED AUTHOR AUTHOR'S ORGANIZ ATION 03/20/2025 [facility] DATE CREATED AUTHOR AUTHOR'S ORGANIZ ATION 07/13/2025 [facility] DATE CREATED AUTHOR AUTHOR'S ORGANIZ ATION 08/24/2025 [facility] Goals (unrecognized section and content) Goals may [...] documented in an alternate section No Information AvailableGoals may be documented in an alternate section No Information Available Source Comments (unrecognize d section and content) In the event this informatio n is protected by the Federal Confidentiality of Alcohol and Drug Abuse Patient Records regulations: The Federal rules restrict any use of the information to criminally investigate or prosecute any alcohol or drug abuse patient.[facility] SystemIn the event this information is protected by the Federal Confidentiality of Alcohol and Drug Abuse Patient Records regulations: The Federal rules restrict any use of the information to criminally investigate or prosecute any alcohol or drug abuse patient.[facility] System[facility] the event this information is protected by the Federal Confidentiality of Alcohol and Drug Abuse Patient Records regulations: The Federal rules restrict any use of the information to criminally investigate or prosecute any alcohol or drug abuse patient.[facility] Reason for Visit (unrecogniz ed section and content) Reason Comments Appointment Reason Onset Date Comments Appointment Request 01/01/2025 Reason Comments New Patient Memory Loss Specialty Diagnoses / Procedures Referred By Emily emmanuel Referred To Contact Diagnoses Memory deficit, cerebral infarct,aphasia, Procedures [place] OFFICE/OUTPATIENT NEW MODERATE MDM 45 MINUTES [facility] [address] [facility] [address] [place] [address] Phone: tel: fax: Stew Oswald MD [address] [facility] [address] [place] [address] Phone: tel: fax: Referral ID Status Reason Start Date Expiration Date V isits Requested Visits Authorized [id number] Pending Review 09/09/2024 09/09/2025 1 1 Reason Comments Follow-up Seizures Reason Onset Date Comments Med Refill 07/09/2025 Care Teams (unrecognized sec tion and content) Supervisor Advice Relationship Specialty Start Date End Date Marcus Tierney MD [address] [place] [address] PCP - General Family Practice 02/11/20 Aliya Clarke, RN Registered Nurse 06/07/22 Cornelius Jiménez DO [address] [place] [address] Family Practice 06/08/22 German Altman DO [address] [place] [address] Primary Staff Physician Family Practice 06/08/22 Namita Schumacher, DO [address] [place] [address] Primary Staff Physician Family Practice 06/08/22 Marcus Tierney MD [address] [place] [address] Primary Staff Physician Family Practice 06/08/22 Yoav Tierney MD [address] [place] [address] Primary Staff Physician Family Practice 06/08/22 Delbert Ariza MD [address] [place] [address] Primary Staff Physician Family Practice 06/08/22 Shankar aMrino, DO [address] [place] [address] Primary Staff Physician Family Practice 06/08/22 Pepe Moreno [address] [place] [address] Family Practice 06/08/22 Supervisor Advice Relationship Specialty Start Date End Date Marcus Tierney MD [address] [place] [address] PCP - General Family Medicine 02/11/20 Aliya Clarke, RN Registered Nurse 06/07/22 Cornelius Jiménez, DO [address] [place] [address] Family Medicine 06/08/22 German Altman, DO [address] [place] [address] Primary Staff Physician Family Medicine 06/08/22 HarveymarinaNamita, DO [address] [place] [address] Primary Staff Physician Family Medicine 06/08/22 Marcus Tierney MD [address] [place] [address] Primary Staff Physician Family Medicine 06/08/22 Yoav Tierney MD [address] [place] [address] Primary Staff Physician Family Medicine 06/08/22 Delbert Ariza MD [address] [place] [address] Primary Staff Physician Family Medicine 06/08/22 Shankar Marino, DO [address] [place] [address] Primary Staff Physician Family Medicine 06/08/22 Pepe Moreno [address] [place] [address] Family Medicine 06/08/22 Aliya Clarke, MONAE Registered [...] Team Status: Active Member Role Status Dates [facility] Attending Provider Active Start: December 24, 2024 Team Status: Active Member Role Status Dates Robb ROB Attending Provider Active Star t: December 30, 2024 Team Status: Active Member Role Status Dates Robb ROB Attending Provider Active Star t: December 31, 2024 Team Status: Inactive Member Role Status Dates Robb ROB Attending Provider Active Star t: January 14, 2025 End: January 14, 2025 Supervisor Advice Relationship Specialty Start Date End Date Robb Barnes MD [address] [place] [address] [address] [place], [place] [id number] PCP - General Family Medicine 02/06/25 Supervisor Advice Relationship Specialty Start Date End Date Robb Barnes MD [address] [place] [address] [address] [place], [place] [id number] PCP - General Family Medicine 02/06/25 Team Status: Inactive Member Role Status Dates Robb ROB Attending Provider Active Star t: March 06, 2025 End: March 06, 2025 Supervisor Advice Relationship Specialty Start Date End Date Robb Barnes MD [address] [place] [address] [address] [place], [place] [id number] PCP - General Family Medicine 02/06/25 Team Status: Inactive Member Role/Relationship Status Dates Robb ROB Attending Provider Active Star t: March 06, 2025 End: March 06, 2025 Team Status: Active Member Role/Relationship Status Dates Robb ROB Attending Provider Active Star t: April 01, 2025 Supervisor Advice Relationship Specialty Start Date End Date Robb Barnes MD [address] [place] [address] [address] [place], [place] [id number] PCP - General Family Medicine 02/06/25 Team Status: Inactive Member Role/Relationship Status Dates Robb ROB Attending physician Active Sta rt: June 17, 2025 End: June 17, 2025 Team Status: Active Member Role/Relationship Status Dates Robb Barnes DARRON Attending physician Active Sta rt: June 23, 2025 Team Status: Active Member Role/Relationship Status Dates Robb Barnes DARRON Attending physician Active Sta rt: July 22, 2025 FOR RECORDS PERTAINING TO PATIENTS WHO [...] BE BASED ON THE PRIMARY CLINICAL RECORDS. [facility] [employer], [facility]. provides no warranty or guarantee of the accuracy or completeness of information in this document.
[2025-08-27 09:19] LABS: Hematocrit 35.8 % (37-47); Hemoglobin 11.9 g/dL (12.0-15.0); Mean Corp Hgb Conc 33.2 g/dL (32-36); Mean Corpuscular Volume 96.0 fL (81-99); Mean Platelet Vol. 9.5 fl (6.2-12.0); Platelet Count 200 K/mm3 (150-450); RBC Distribution Width CV 13.4 % (11.6-14.6); RBC Distribution Width SD 46.7 fl (35.1-43.9); Red Blood Count 3.73 M/mm3 (4.2-5.4); White Blood Count 7.6 K/mm3 (4.4-11.0)
[2025-08-27 09:39] LABS: AST(SGOT) 21 U/L (<=31); Alanine Aminotransfer ALT/SGPT 16 U/L (<=34); Albumin, Serum 3.3 g/dL (3.4-4.8); Alkaline Phosphatase 101 U/L (35-104); Anion Gap 9 (5-15); BUN 15 mg/dL (4-19); BUN/Creat Ratio 25.5 RATIO (10-20); Calcium,Total 9.2 mg/dL (7.6-11.0); Carbon Dioxide 23.5 mmol/L (21.0-32.0); Chloride 109 mmol/L (98-108); Cholesterol 124 mg/dL (<=200); Globulin 2.8 g/dL (2.2-4.2); Glucose 97 mg/dL (70-99); Low Density Lipoprotein Calc. 61 mg/dL; Potassium 4.1 mmol/L (3.3-5.1); Triglycerides 157 mg/dL; Very Low Density Lipoprotein 31 mg/dL (5-40); cholesterol:hdl ratio screen 3.42
[2025-08-27 10:08] LABS: Iron 43 ug/dL (50-170); Magnesium 2.1 mg/dL (1.5-2.2)
== END ==
LOC: OLS.ACW300 05:00
PROVIDERS: Visit Provider Family Medicine
DX: Z00.00 Encounter for general adult medical examination without abnormal findings (principal)
CPT/HCPCS: 36415; 80053; 80061; 83540; 83735; 85027

== ENCOUNTER → 2025-09-25 05:00 | Outpatient (REF) | payer MEDICARE, MEDICAID, SELFPAY ==
--- OUTSIDE RECORDS SUMMARY | 2025-09-25 04:32 | XMS RPT_ITS | CCD ---
Author Organization [facility] Care Team Providers Care Paperhanger Apprentice Name Role Phone Marcus Tierney MD Primary Care Provider Tricia LICONA, Aliya Unavailable Unavailable Cornelius Jiménez DO Unavailable German Altman DO Unavailable Namita Schumacher DO Unavailable Marcus Tierney MD Unavailable Yoav Tierney MD Unavailable [phone] Delbert Ariza MD Unavailable [phone] Shankar Marino DO Unavailable [phone] Mo, [place] Unavailable Marcus Tierney MD Primary Care Provider Tricia LICONA, Aliya Unavailable Unavailable Cornelius Jiménez DO Unavailable [phone] German Altman DO Unavailable [phone] Namita cShumacher DO Unavailable Marcus Tierney MD Unavailable [phone] Yoav Tierney MD Unavailable [phone] Delbert Ariza MD Unavailable [phone] Shankar Marino DO Unavailable Moc, [place] Unavailable Clarke RN, Aliya Unavailable Unavailable Unavailable Primary Care Provider UnavailRobb Ballard Attending Provider Unavailjuan e [facility], [facility] Attending Provider Robb Donohue MD Primary Care Provider ICJONNY II, ELIA Admitting Unavailable NILTON RODRIGUEZ Attending Unavailable ITRAT, AHMED Consulting Unavailable Robb Coon Attending Provider UnavailFouzia ORB, Robb Attending Provider Unavailjuan Fonseca BLIND TEACHER-SLIPMAN, Paty Unavailable Robb Barnes MD Unavailable STEW OSWALD Attending Unavailable STEW OSWALD Referring Unavailable ROBB BARNES Primary Care Unavailable STEW OSWALD Attending Unavailable ROBB BARNES Primary Care Unavailable MARGRET, STEW Attending Unavailable ROBB BARNES Primary Care Unavailable Stephany ROB, Robb Attending Physician Unavailab Brooke BLIND TEACHER-SLIPMAN, Crystal Unavailable Robb Coon Attending Unavailable [facility] Attending Unav ailable Stephany ROB, Robb Attending [...] [CODEINE] Drug Allergy 7 Other: See Comments [facility] (10 sources) Levetiracetam; Translations: [LEVETIRACETAM] Propensity to adverse reactions 5 Other [facility] (2 sources) Codeine Drug Allergy 3 [facility] (2 sources) Penicillin V Drug Allergy 5 [facility] Medications Current Medications [...] for pain active Joe Caballero [facility] [place] take 2 tablets [...] a week active Joe Caballero [facility] [place] take 2 tablets by mo uth every [...] a day as directed active Joe Caballero [facility] [place] calcium carbonate 625 mg / cholecalciferol 125 [...] a day active Yee Marie [facility] Diclofenac Sodiu m (Voltaren) 1 % gel [...] mouth daily. 01/14/2025 Active 84 hr estradiol 0.00888 mg/hr transdermal system (14 sources) Estrogen apply 1 dose transdermal route once daily Hilda 0.05 mg/24 hr transdermal patch Apply 1 patch to skin once a day active oJe Caballero [facility] [place] estradiol (Vivel le-DOT) 0.05 MG/24HR Place 1 [...] mouth twice a day active Joe Caballero [facility] [place] Comment on above: Take 1 tablet by [...] for pain active Joe Caballero [facility] [place] lysine 500 mg oral tablet (11 sources) take 1 tablet by mouth once daily lysine 500 mg tablet Take 1 tablet by mouth once a day active Joe Caballero [facility] [place] take 2 tablets by mouth once namita ly LYSINE PO Take 500 mg by mouth daily. Take 2 tabs daily Active magnesium oxide 250 mg oral tablet (14 sources) take 1 tablet by mouth once daily magnesium 250 mg (as magnesium oxide) tablet Take 1 tablet by mouth once a day active Joe Caballero [facility] [place] Comment on above: Take 250 mg by [...] as directed active Jessy Daugherty [facility] potassium [...] twice a day active Yee Marie LPN [facility] [place] RA CALCIUM 600/VITAMIN D-3 (CALCIUM CARB-CHOLECALCIFEROL) 600-10 MG-MCG TABS (2 sources) take 1 tablet by mouth twice daily Calcium 600 + D(3) 600 mg-10 mcg (400 unit) tablet Take 1 tablet by mouth twice a day active Joe Caballero [facility] [place] rOPINIRole 0.5 mg oral table t (16 sources) Nonergot Dopamine Agonist take 1 tablet by mouth once daily ropinirole 0.5 mg tablet Take 1 tablet by mouth once a day active Joe Caballero [facility] [place] take 1 tablet by mouth once elsa y ropinirole 1 mg tablet Take 1 tablet by mouth once a day active Joe Caballero LPN [facility] [place] take 2 tablets by [facility] once daily at bedtime rOPINIRole (Requip) 0.5 [...] Comment on above: [facility] cholestyramine resin 4000 mg [...] on above: Take 1 capsule by mo [facility] once daily. Take while taking protonix gabapentin [...] take 1 capsule by mouth once daily [facility]Wv[facility]-J[facility] (URIBEL) 118-10-40.8-36 mg Take 1 capsule by mouth once daily. 30 capsule 5 11/10/2020 Active Comment on above: Take 1 capsule by [facility] once daily. L-LYSINE ORAL (3 sources) take 1000 mg by mouth once daily L-LYSINE ORAL Take 1,000 mg by mouth once daily. 0 Active Comment on above: [facility] 1,[facility]. lacosamide 100 mg oral tablet [...] Narrativeon 08-20-2025 Fall risk assessment no [employer] Work Phone: MEDS REVIEW Done [employer] Work Phone: MEDS REVIEWD Medications reviewed without changes [employer] Work Phone: Bilirubin Test strip Ql (U)O rdered By: Robb Barnes on 07-22-2025 Bilirubin Ql (U) Negative Negative [facility] Ketones Test strip Ql (U)Ord ered By: Robb Barnes on 07-22-2025 Ketones Ql (U) Negative Negative [facility] Nitrite Test strip Ql (U)Ord ered By: Robb Barnes on 07-22-2025 Nitrite Ql (U) Positive High Negative [facility] Protein Test strip Ql (U)Ord ered By: Robb Barnes on 07-22-2025 Protein Ql (U) 30 mg/dl High Negative [facility] Urine clarityOrdered By: Renan Barnes on 07-22-2025 Clarity (U) Clear Clear [facility] Urine color determinationOrd ered By: Robb Barnes on 07-22-2025 Color (U) Yellow Yellow [facility] Urine cultureOrdered By: Renan Barnes on 07-22-2025 Bacteria identified Cx Nom (U) ESBL Escherichia coli Abnormal [facility] Urine glucose detectionOrder ed By: Robb Barnes on 07-22-2025 Glucose Ql (U) Normal mg/dl Normal [facility] Urine leukocyte esterase det ection by dipstickOrdered By: Robb Barnes on 07-22-2025 Leukocyte esterase Test strip Ql (U) 500 /ul High Negative [facility] Urine pHOrdered By: Robb huerta on 07-22-2025 pH (U) 6.5 [pH] 5.0 - 8.0 [facility] Urine specific gravity measu rementOrdered By: Robb Barnes on 07-22-2025 Specific gravity (U) [Rel density] 1.015 1.002-1.030 [facility] Urine urobilinogen measureme ntOrdered By: Rbob Barnes on 07-22-2025 Urobilinogen Ql (U) Normal mg/dl Normal [facility] 36on 07-13-2025 36 [facility] as written. [facility]'s further questions if applicable: Verbalized understanding. Were all questions from office addressed or relayed to [facility] from encounter: Yes [facility] 36 Lm for Ketty [phone] to call the office back, please relay providers message [place] [address]on 07-10-2025 36 Lm for Ketty [phone] to call the office back, please relay providers message. [facility] 36 I sent in an Rx for Vimpat. Remind them that Vimpat is a controlled substance and I am only allowed to write for a month and two refills, so they have to call ahead to warn me when it is time to refill. [facility] 36 MONAE Hdez ([facility] ) called in stating patient has 1 dose left and is requesting script be sent. Please be advised [facility] 36on 07-09-2025 36 Patinet has two does [...] prior to picking up the medication: N/A [facility] Serum or plasma triiodothyro nine (T3) measurement (mass/volume)Ordered By: Robb Barnes on 06-23-2025 T3 [Mass/Vol] 1.39 ng/mL 0.80-2.00 [facility] TSH DL <= 0.005 mIU/L QnOrde red By: Robb Barnes on 06-23-2025 TSH Qn < 0.005 uIU/mL Low 0.300-4.200 [facility] ThyroxineOrdered By: Robb Barnes on 06-23-2025 T4 [Mass/Vol] 11.9 ug/dL 4.8-13.9 [facility] Absolute lymphocyte countOrd ered By: Robb Barnes on 06-17-2025 Lymphocytes Auto (Unsp spec) [#/Vol] 1.49 10*3/uL 0.83-4.51 [facility] Absolute neutrophil countOrd ered By: Robb Barnes on 06-17-2025 Neutrophils (Bld) [#/Vol] 3.5 10*3/uL 2.0-7.7 [facility] Anion gap in Serum or Plasma Ordered By: Robb Barnes on 06-17-2025 Anion gap [Moles/Vol] 10 mmol/L 5-15 [facility] Automated lymphocyte count a s percentage of total leukocytesOrdered By: Robb Barnes on 06-17-2025 Lymphocytes/100 WBC Auto (Unsp spec) 26.4 % 19-41 [facility] BUN/creatinine ratioOrdered By: Robb Barnes on 06-17-2025 Urea nitrogen/Creatinine [Mass ratio] 25.9 mg/mg High 10-20 [facility] Basophil percentageOrdered B y: Robb Barnes on 06-17-2025 Basophils/100 WBC (Bld) 0.5 % 0-1 [facility] Bilirubin Test strip Ql (U)O rdered By: Robb Barnes on 06-17-2025 Bilirubin Ql (U) Negative Negative [facility] Bilirubin directOrdered By: Robb Barnes on 06-17-2025 Bilirubin.direct [Mass/Vol] 0.12 mg/dL 0.00-0.30 [facility] Bilirubin, totalOrdered By: Robb Barnes on 06-17-2025 Bilirubin [Mass/Vol] 0.28 mg/dL 0.00-1.30 [facility] Carbon dioxide, total [Moles /volume] in Central venous bloodOrdered By: Robb Barnes on 06-17-2025 CO2 [Moles/Vol] 23.2 mmol/L 21.0-32.0 [facility] Chloride assayOrdered By: Ramila Barnes on 06-17-2025 Chloride [Moles/Vol] 107 mmol/L 98-108 [facility] Eosinophil percentageOrdered By: Robb Barnes on 06-17-2025 Eosinophils/100 WBC (Bld) 3.7 % 0-5 [facility] Erythrocyte distribution wid th ratioOrdered By: Robb Barnes on 06-17-2025 Erythrocyte distribution width (RBC) [Ratio] 14.1 % 11.6-14.6 [facility] Erythrocyte distribution wid th standard deviationOrdered By: Robb Barnes on 06-17-2025 Erythrocyte distribution width (RBC) [Ratio] 50.1 fl High 35.1-43.9 [facility] Glomerular filtration rate ( GFR) estimation/1.73 sq m using serum, plasma, or whole bOrdered By: Robb Barnes on 06-17-2025 GFR/1.73 sq M.predicted among non-blacks MDRD (S/P/Bld) [Vol rate/Area] 96 mL/min/{1.73_m2} >60 [facility] Comment on above: mL/min/1.73m2 CKD-EP I Creatinine Equation (2020) Hematocrit Auto (Bld) [Volum e fraction]Ordered By: Robb Barnes on 06-17-2025 Hematocrit (Bld) [Volume fraction] 33.6 % Low 37-47 [facility] Hemoglobin measurementOrdere d By: Robb Barnes on 06-17-2025 Hemoglobin (Bld) [Mass/Vol] 11.1 g/dL Low 12.0-15.0 [facility] Immature granulocytes/100 WB C Auto (Bld)Ordered By: Robb Barnes on 06-17-2025 Immature granulocytes/100 WBC (Bld) 0.200 % 0.0-0.9 [facility] Comment on above: IG% - Immature Granu locytes (promyelocytes, myelocytes and metamyelocytes) > 1% indicates that a LEFT SHIFT is Present. Ketones Test strip Ql (U)Ord ered By: Robb Barnes on 06-17-2025 Ketones Ql (U) Negative Negative [facility] Laboratory - Chemistry and C hemistry - challengeOrdered By: Robb Barnes on 06-17-2025 AST [Catalytic activity/Vol] 22 U/L <32 [facility] MCV (mean corpuscular volume ) determinationOrdered By: Robb Barnes on 06-17-2025 MCV (RBC) [Entitic vol] 96.6 fL 81-99 [facility] Mean corpuscular hemoglobin (MCH) determinationOrdered By: Robb Barnes on 06-17-2025 MCH (RBC) [Entitic mass] 31.9 pg 27.0-32.0 [facility] Mean corpuscular hemoglobin concentration (MCHC) determinationOrdered By: Robb Barnes on 06-17-2025 MCHC (RBC) [Mass/Vol] 33.0 g/dL 32-36 [facility] Mean platelet volume determi nationOrdered By: Robb Barnes on 06-17-2025 Platelet mean volume (Bld) [Entitic vol] 9.2 fL 6.2-12.0 [facility] Microscopic analysis of urin e for red blood cells (RBC)Ordered By: Robb Barnes on 06-17-2025 Microscopic analysis of urine for red blood cells (RBC) 0 SEEN /hpf 0-5 [facility] Monocyte percentageOrdered B y: Robb Barnes on 06-17-2025 Monocytes/100 WBC (Bld) 8.1 % 0-10 [facility] Mucus LM Ql (Urine sed)Order ed By: Robb Barnes on 06-17-2025 Mucus Ql (Urine sed) 0 SEEN /hpf [facility] Neutrophil percentageOrdered By: Robb Barnes on 06-17-2025 Neutrophils/100 WBC (Bld) 61.1 % 47-70 [facility] Nitrite Test strip Ql (U)Ord ered By: Robb Barnes on 06-17-2025 Nitrite Ql (U) Positive High Negative [facility] Nucleated red blood cell per centageOrdered By: Robb Barnes on 06-17-2025 Nucleated RBC/100 WBC (Bld) [Ratio] 0 % 0-5 [facility] Platelet countOrdered By: Ramila Barnes on 06-17-2025 Platelets (Bld) [#/Vol] 204 10*3/uL 150-450 [facility] Potassium measurement (mass/ volume)Ordered By: Robb Barnes on 06-17-2025 Potassium (Unsp spec) [Mass/Vol] 4.2 mmol/L 3.3-5.1 [facility] Protein Test strip Ql (U)Ord ered By: oRbb Barnes on 06-17-2025 Protein Ql (U) 15 mg/dl High Negative [facility] RBC Auto (Bld) [#/Vol]Ordere d By: Robb Barnes on 06-17-2025 RBC (Bld) [#/Vol] 3.48 10*6/uL Low 4.2-5.4 [facility] Serum creatinine measurement (mass/volume)Ordered By: Robb Barnes on 06-17-2025 Creatinine [Mass/Vol] 0.56 mg/dL Low 0.70-1.20 [facility] Serum globulin measurementOr dered By: Robb Barnes on 06-17-2025 Globulin (S) [Mass/Vol] 2.8 g/dL 2.2-4.2 [facility] Serum glucose measurement (m ass/volume)Ordered By: Robb Barnes on 06-17-2025 Glucose [Mass/Vol] 105 mg/dL High 70-99 [facility] Serum or plasma alanine timmons otransferase (ALT) measurementOrdered By: Robb Barnes on 06-17-2025 ALT [Catalytic activity/Vol] 16 U/L <35 [facility] Serum or plasma albumin claudette urement (mass/volume)Ordered By: Robb Barnes on 06-17-2025 Albumin [Mass/Vol] 3.3 g/dL Low 3.4-4.8 [facility] Serum or plasma alkaline karson sphatase measurementOrdered By: Robb Barnes on 06-17-2025 ALP [Catalytic activity/Vol] 104 U/L 35-104 [facility] Serum or plasma calcium claudette urement (mass/volume)Ordered By: Robb Barnes on 06-17-2025 Calcium [Mass/Vol] 9.5 mg/dL 7.6-11.0 [facility] Serum or plasma urea nitroge n measurement (mass/volume)Ordered By: Robb Barnes on 06-17-2025 Urea nitrogen [Mass/Vol] 15 mg/dL 4-19 [facility] Sodium levelOrdered By: Vern Barnes on 06-17-2025 Sodium [Moles/Vol] 141 mmol/L 133-145 [facility] Squamous epithelial cells de tection in urine sediment by light microscopyOrdered By: Robb Barnes on 06-17-2025 Epithelial cells.squamous LM Ql (Urine sed) 0-5 SEEN /hpf 5-10 [facility] Total proteinOrdered By: Renan Barnes on 06-17-2025 Protein [Mass/Vol] 6.1 g/dL 5.9-8.4 [facility] Urine clarityOrdered By: Renan Barnes on 06-17-2025 Clarity (U) Clear Clear [facility] Urine color determinationOrd ered By: Robb Barnes on 06-17-2025 Color (U) Yellow Yellow [facility] Urine cultureOrdered By: Renan Barnes on 06-17-2025 Bacteria identified Cx Nom (U) ESBL Escherichia coli Abnormal [facility] Urine glucose detectionOrder ed By: Robb Barnes on 06-17-2025 Glucose Ql (U) Normal mg/dl Normal [facility] Urine leukocyte esterase det ection by dipstickOrdered By: Robb Barnes on 06-17-2025 Leukocyte esterase Test strip Ql (U) 25 /ul High Negative [facility] Urine pHOrdered By: Robb huerta on 06-17-2025 pH (U) 5.0 [pH] 5.0 - 8.0 [facility] Urine sediment bacteria coun t by microscopy (number/high power field)Ordered By: Robb Barnes on 06-17-2025 Bacteria LM.HPF (Urine sed) [#/Area] 3 /[HPF] None Seen [facility] Urine specific gravity measu rementOrdered By: Robb Barnes on 06-17-2025 Specific gravity (U) [Rel density] 1.020 1.002-1.030 [facility] Urine urobilinogen measureme ntOrdered By: Robb Barnes on 06-17-2025 Urobilinogen Ql (U) Normal mg/dl Normal [facility] White blood cell (WBC) count Ordered By: Robb Barnes on 06-17-2025 WBC (Bld) [#/Vol] 5.7 10*3/uL 4.4-11.0 [facility] White blood cell countOrdere d By: Robb Barnes on 06-17-2025 White blood cell count 10-25 SEEN /hpf 0-5 [facility] Relevant diagnostic tests/la boratory data Narrativeon 05-26-2025 Fall risk assessment no [employer] Work Phone: MEDS REVIEW Documentation of current medications (procedure) [employer] Work Phone: MEDS REVIEWD Medications reviewed without changes [employer] Work Phone: Bilirubin Test strip Ql (U)O rdered By: Robb Barnes on 04-01-2025 Bilirubin Ql (U) Negative Negative [facility] Ketones Test strip Ql (U)Ord ered By: Robb Barnes on 04-01-2025 Ketones Ql (U) Negative Negative [facility] Nitrite Test strip Ql (U)Ord ered By: Robb Barnes on 04-01-2025 Nitrite Ql (U) Negative Negative [facility] Protein Test strip Ql (U)Ord ered By: Robb Barnes on 04-01-2025 Protein Ql (U) Negative Negative [facility] Urine clarityOrdered By: Renan Barnes on 06-11-2025 Clarity (U) Clear Clear [facility] Urine color determinationOrd ered By: Robb Barnes on 04-01-2025 Color (U) Yellow Yellow [facility] Urine cultureOrdered By: Renan Barnes on 04-01-2025 Bacteria identified Cx Nom (U) Culture exhibits no growth. [facility] Urine glucose detectionOrder ed By: Robb Barnes on 04-01-2025 Glucose Ql (U) Normal mg/dl Normal [facility] Urine leukocyte esterase det ection by dipstickOrdered By: Robb Barnes on 04-01-2025 Leukocyte esterase Test strip Ql (U) Negative Negative [facility] Urine pHOrdered By: Robb huerta on 04-01-2025 pH (U) 6.0 [pH] 5.0 - 8.0 [facility] Urine specific gravity measu rementOrdered By: Robb Barnes on 04-01-2025 Specific gravity (U) [Rel density] 1.015 1.002-1.030 [facility] Urine urobilinogen measureme ntOrdered By: Robb Barnes on 04-01-2025 Urobilinogen Ql (U) Normal mg/dl Normal [facility] Office Visiton 03-25-2025 Follow-up visit [id number] Elba Diaz 1950 F Date Provider Department Center 03/25/2025 [id number] OSWALD [facility] None Family History Problem Relation Age of Onset Heart disease Mother Heart disease Father Carotid Artery Stenosis Father Family Status - Relation Status Age at Mother Father Level of Service:01462 [place] OFFICE/OUTPATIENT ESTABLISHED LOW MDM 20 MIN Reason for Visit and Comments: Follow-up [601588] Seizures [97] Normal [facility] Progress Noteon 03-25-2025 Progress Note [facility] [address] [address] [facility] [address] [facility] [address] Dept: [phone] Dept Loc: [phone] Stew Oswald MD CHIEF COMPLAINT: Chief Complaint [...] She reports that she is actively seeing [facility] ("I saw them a couple of weeks [...] Resource Strain: Low Risk (06/03/2020) Received from [facility] Overall Financial Resource Strain (CARDIA) Difficulty of Paying Living Expenses: Not hard at all Food Insecurity: No Food Insecurity (12/16/2024) Received from [facility] Hunger Vital Sign Worried About Running Out of Food in the Last Year: Never true Ran Out of Food in the Last Year: Never true Transportation Needs: No Transportation Needs (12/16/2024) Received from [facility] PRAPARE - Transportation Lack of Transportation (Medical): No Lack of Transportation (Non-Medical): No Physical Activity: Not on file Stress: Not on file Social Connections: Not on file Intimate Partner Violence: Not on file Housing Stability: Low Risk (12/16/2024) Received from [facility] Housing Stability Vital Sign Unable to [...] Station: wheel (more content not included)... Normal [facility] 36on 02-10-2025 36 OK to send that plac e the order. [facility] 36 Called [facility]@ [phone]. HARVEY Walker Auth is Valid if performed in facility. [facility] Ketty @ [facility] [phone] . Normal [place] [address] Ketty-from [facility], said patient was ordered a Vascular US carotic arteries bilateral Ins won't pay if she goes by a cot and this is only way patient can be transferred However, the facility does have a company that comes to [facility] And can do the Vascular US at [facility] Would this be OK? #[phone]-Ketty at [facility] Office Visiton 02-06-2025 Follow-up visit [id number] IdaliaElba 1950 F Date Provider Department Center 02/06/2025 [id number] MARTIN [facility] None Family History Problem Relation Age of Onset Heart disease Mother Heart disease Father Carotid Artery Stenosis Father Family Status - Relation Status Age at Mother Father Level of Service:76843 [place] OFFICE/OUTPATIENT NEW HIGH [facility] 60 MINUTES Reason for Visit and Comments: New Patient [542] Memory Loss [66] Normal [facility] Progress Noteon 02-06-2025 Progress Note [address] [facility] [address] Dept: [phone] Dept Loc: [phone] Stew Oswald MD CHIEF COMPLAINT: Chief Complaint [...] Resource Strain: Low Risk (06/03/2020) Received from [facility], [facility] Overall Financial Resource Strain (CARDIA) Difficulty of Paying Living Expenses: Not hard at all Food Insecurity: No Food Insecurity (12/16/2024) Received from [facility] Hunger Vital Sign Worried About Running Out of Food in the Last Year: Never true Ran Out of Food in the Last Year: Never true Transportation Needs: No Transportation Needs (12/16/2024) Received from [facility] PRAPARE - Transportation Lack of Transportation (Medical): No Lack of Transportation (Non-Medical): No Physical Activity: Not on file Stress: Not on file Social Connections: Not on file Intimate Partner Violence: Not on file Housing Stability: Low Risk (12/16/2024) Received from [facility] Housing Stability Vital Sign Unable to Pay for Housing in the Last Year: No Number of Times Moved in the Last Year: 1 Homeless in the Last Year: No Family History: Family History Problem Relation Name Age of Onset Heart disease Mother Heart disease Father Carotid Artery St (more content not included)... Normal [facility] Anion gap in Serum or Plasma Ordered By: Robb Barnes on 01-14-2025 Anion gap [Moles/Vol] 11 mmol/L 5-15 [facility] BUN/creatinine ratioOrdered By: Robb Barnes on 01-14-2025 Urea nitrogen/Creatinine [Mass ratio] 40.4 mg/mg High 10-20 [facility] Bilirubin, totalOrdered By: Robb Barnes on 01-14-2025 Bilirubin [Mass/Vol] 0.21 mg/dL 0.00-1.30 [facility] Carbon dioxide, total [Moles /volume] in Central venous bloodOrdered By: Robb Barnes on 01-14-2025 CO2 [Moles/Vol] 21.7 mmol/L 21.0-32.0 [facility] Chloride assayOrdered By: Ramila Barnes on 01-14-2025 Chloride [Moles/Vol] 107 mmol/L 98-108 [facility] Erythrocyte distribution wid th (RBC) [Ratio]Ordered By: Robb Barnes on 01-14-2025 Erythrocyte distribution width (RBC) [Entitic vol] 49.8 fL High 35.1-43.9 [facility] Erythrocyte distribution wid th ratioOrdered By: Robb Barnes on 01-14-2025 Erythrocyte distribution width (RBC) [Ratio] 14.0 % 11.6-14.6 [facility] Erythrocyte distribution wid th standard deviationOrdered By: Robb Barnes on 01-14-2025 Erythrocyte distribution width (RBC) [Ratio] 49.8 fl High 35.1-43.9 [facility] GFR/1.73 sq M.predicted juwan g non-blacks MDRD (S/P/Bld) [Vol rate/Area]Ordered By: Robb Barnes on 01-14-2025 Estimated GFR (MDRD) Non-Af Amer 104 >60 [facility] Comment on above: mL/min/1.73m2 CKD-EP I Creatinine Equation (2020) Glomerular filtration rate ( GFR) estimation/1.73 sq m using serum, plasma, or whole bOrdered By: Robb Barnes on 01-14-2025 GFR/1.73 sq M.predicted among non-blacks MDRD (S/P/Bld) [Vol rate/Area] 104 mL/min/{1.73_m2} >60 [facility] Comment on above: mL/min/1.73m2 CKD-EP I Creatinine Equation (2020) Hematocrit Auto (Bld) [Volum e fraction]Ordered By: Robb Barnes on 01-14-2025 Hematocrit (Bld) [Volume fraction] 35.0 % Low 37-47 [facility] Hemoglobin measurementOrdere d By: Robb Barnes on 01-14-2025 Hemoglobin (Bld) [Mass/Vol] 11.2 g/dL Low 12.0-15.0 [facility] Laboratory - Chemistry and C hemistry - challengeOrdered By: Robb Barnes on 01-14-2025 AST [Catalytic activity/Vol] 47 U/L High <32 [facility] MCV (mean corpuscular volume ) determinationOrdered By: Robb Barnes on 01-14-2025 MCV (RBC) [Entitic vol] 100.9 fL High 81-99 [facility] Mean corpuscular hemoglobin (MCH) determinationOrdered By: Robb Barnes on 01-14-2025 MCH (RBC) [Entitic mass] 32.3 pg High 27.0-32.0 [facility] Mean corpuscular hemoglobin concentration (MCHC) determinationOrdered By: Robb Barnes on 01-14-2025 MCHC (RBC) [Mass/Vol] 32.0 g/dL 32-36 [facility] Mean platelet volume determi nationOrdered By: Robb Barnes on 01-14-2025 Platelet mean volume (Bld) [Entitic vol] 8.8 fL 6.2-12.0 [facility] Platelet countOrdered By: Ramila Barnes on 01-14-2025 Platelets (Bld) [#/Vol] 305 10*3/uL 150-450 [facility] Potassium (Unsp spec) [Mass/ Vol]Ordered By: Robb Barnes on 01-14-2025 Potassium [Moles/Vol] 4.0 mmol/L 3.3-5.1 [facility] Potassium measurement (mass/ volume)Ordered By: Robb Barnes on 01-14-2025 Potassium (Unsp spec) [Mass/Vol] 4.0 mmol/L 3.3-5.1 [facility] RBC Auto (Bld) [#/Vol]Ordere d By: Robb Barnes on 01-14-2025 RBC (Bld) [#/Vol] 3.47 10*6/uL Low 4.2-5.4 [facility] Serum creatinine measurement (mass/volume)Ordered By: Robb Barnes on 01-14-2025 Creatinine [Mass/Vol] 0.41 mg/dL Low 0.70-1.20 [facility] Serum globulin measurementOr dered By: Robb Barnes on 01-14-2025 Globulin (S) [Mass/Vol] 2.5 g/dL 2.2-4.2 [facility] Serum glucose measurement (m ass/volume)Ordered By: Robb Barnes on 01-14-2025 Glucose [Mass/Vol] 105 mg/dL High 70-99 [facility] Serum or plasma alanine timmons otransferase (ALT) measurementOrdered By: Robb Barnes on 01-14-2025 ALT [Catalytic activity/Vol] 27 U/L <35 [facility] Serum or plasma albumin claudette urement (mass/volume)Ordered By: Robb Barnes on 01-14-2025 Albumin [Mass/Vol] 3.0 g/dL Low 3.4-4.8 [facility] Serum or plasma albumin/glob ulin mass ratioOrdered By: Robb Barnes on 01-14-2025 Albumin/Globulin [Mass ratio] 1.2 {ratio} 0.9-2.4 [facility] Serum or plasma alkaline karson sphatase measurementOrdered By: Robb Barnes on 01-14-2025 ALP [Catalytic activity/Vol] 52 U/L 35-104 [facility] Serum or plasma calcium claudette urement (mass/volume)Ordered By: Robb Barnes on 01-14-2025 Calcium [Mass/Vol] 7.5 mg/dL Low 7.6-11.0 [facility] Serum or plasma urea nitroge n measurement (mass/volume)Ordered By: Robb Barnes on 01-14-2025 Urea nitrogen [Mass/Vol] 16 mg/dL 4-19 [facility] Sodium levelOrdered By: Vern Barnes on 01-14-2025 Sodium [Moles/Vol] 139 mmol/L 133-145 [facility] Total proteinOrdered By: Renan Barnes on 01-14-2025 Protein [Mass/Vol] 5.4 g/dL Low 5.9-8.4 [facility] White blood cell (WBC) count Ordered By: Robb Barnes on 01-14-2025 WBC (Bld) [#/Vol] 8.3 10*3/uL 4.4-11.0 [facility] Basic metabolic 2000 panelon 01-13-2025 Anion gap [Moles/Vol] 10 mmol/L Normal 8-15 [facility] Comment on above: Order Comment: Speci men Type: BLOOD SPECIMENOrdering Facility: [facility] Address: [address] [place] [address] Performed By: #### 2 4321-2, ####[facility]ORATORYCLIA [id number] [place] [address] [place] Calcium [Mass/Vol] 9.3 mg/dL Normal 8.5-10.2 [facility] Comment on above: Order Comment: Speci men Type: BLOOD SPECIMENOrdering Facility: [facility] Address: [address] [place] [address] Performed By: #### 2 4321-2, ####[facility] LABORATORYCLIA [id number] [place] [address] [place] Chloride [Moles/Vol] 104 mmol/L Normal 98-107 [facility] Comment on above: Order Comment: Speci men Type: BLOOD SPECIMENOrdering Facility: [facility] Address: [address] [place] [address] Performed By: #### 2 4321-2, ####[facility] LABORATORYCLIA [id number] [place] [address] [place] CO2 [Moles/Vol] 22 mmol/L Normal 22-30 [facility] Comment on above: Order Comment: Speci men Type: BLOOD SPECIMENOrdering Facility: [facility] Address: [address] [place] [address] Performed By: #### 2 432-2, ####[facility]ORATORYCLIA [id number] [place] [address] [place] Creatinine [Mass/Vol] 0.49 mg/dL Low 0.58-0.96 [facility] Comment on above: Order Comment: Speci men Type: BLOOD SPECIMENOrdering Facility: [facility] Address: [address] [place] [address] Performed By: #### 2 4321-2, 77238-6 ####[facility]OSPITALIA [id number] [place] [id number] [facility] [place] Creatinine and Glomerular filtration rate.predicted panel (S/P/Bld) 100 mL/min/1.73m??? Normal >=60 [facility] Comment on above: Order Comment: Vicky eladia Type: BLOOD SPECIMENOrdering Facility: [facility] Address: [address] [place] [address] Result Comment: Cecy mated Glomerular Filtration Rate [...] actual GFR. Performed By: #### 2 4321-2, 53292-4 ####[facility] LABORATORYIA [id number] [place] [id number] [place] Glucose [Mass/Vol] 117 mg/dL High 74-99 [facility] Comment on above: Order Comment: Vikramjey montilla Type: BLOOD SPECIMENOrdering Facility: [facility] Address: [address] [place] [address] Result Comment: The [place] Diabetes Association (ADA) provides guidance for cutoff [...] Standards of Medical Care in Diabetes 2016, [place] [employer]. Diabetes Care. 2016.39(Suppl 1). Performed By: #### 2 432-2, ####[facility] LABORATORYCLIA [id number] [address] [place] Potassium [Moles/Vol] 4.6 mmol/L Normal 3.7-5.1 [facility] Comment on above: Order Comment: Speci men Type: BLOOD SPECIMENOrdering Facility: [facility] Address: [address] [place] [address] Performed By: #### 2 4321-2, ####[facility] LABORATORYCLIA [id number] [address] [place] Sodium [Moles/Vol] 136 mmol/L Normal 136-144 [facility] Comment on above: Order Comment: Speci men Type: BLOOD SPECIMENOrdering Facility: [facility] Address: [address] [place] [address] Performed By: #### 2 2, ####[facility] LABORATORYCLIA [id number] [address] STATES [facility] Urea nitrogen [Mass/Vol] 18 mg/dL Normal 7-21 [facility] Comment on above: Order Comment: Speci men Type: BLOOD SPECIMENOrdering Facility: [facility] Address: [address] [place] [address] Performed By: #### 2 2, ####[facility] LABORATORYCLIA [id number] [address] [place] CBC panel Auto (Bld)on 01-13 Erythrocyte distribution width (RBC) [Ratio] 13.6 % Normal 11.5-15.0 [facility] Comment on above: Order Comment: Speci men Type: BLOOD SPECIMEN [facility]ing [facility]: [facility] Address: [address] [place] [address] Performed By: #### 2 4321-2, 72468-4, 3016-3 #### [facility] CLIA [id number] [address] Hematocrit (Bld) [Volume fraction] 34.1 % Low 36.0-46.0 [facility] Comment on above: Order Comment: Speci men Type: BLOOD SPECIMEN [facility]ing [facility]: [facility] Address: [address] [place] [address] Performed By: #### 2 4321-2, , 3 #### [facility] CLIA [id number] [address] STATES OF [facility] Hemoglobin (Bld) [Mass/Vol] 11.3 g/dL Low 11.5-15.5 [facility] Comment on above: Order Comment: Speci men Type: BLOOD SPECIMEN [facility]ing [facility]: [facility] Address: [address] [place] [address] Performed By: #### 2 4321-2, , 3 #### [facility] CLIA [id number] [address] STATES [place] [facility] MCH (RBC) [Entitic mass] 32.9 pg Normal 26.0-34.0 [facility] Comment on above: Order Comment: Speci men Type: BLOOD SPECIMEN [facility]ing [facility]: [facility] Address: [address] [place] [address] Performed By: #### 2 432-2, , 3 #### [facility] CLIA [id number] [address] [place] MCHC (RBC) [Mass/Vol] 33.1 g/dL Normal 30.5-36.0 [facility] Comment on above: Order Comment: Speci men Type: BLOOD SPECIMEN [facility]ing [facility]: [facility] Address: [address] [place] [address] Performed By: #### 2 4321-2, , 3 #### [facility] CLIA [id number] [address] OF [facility] MCV (RBC) [Entitic vol] 99.4 fL Normal 80.0-100.0 [facility] Comment on above: Order Comment: Speci men Type: BLOOD SPECIMEN [facility]ing Facility: [facility] Address: [address] [place] [address] Performed By: #### 2 4321-2, , 3 #### [facility] CLIA [id number] [address] [place] Nucleated RBC (Bld) [#/Vol] 0.06 10*3/uL High <0.01 [facility] Comment on above: Order Comment: Speci men Type: BLOOD SPECIMEN [facility] Address: [address] [place] [address] Performed By: #### 2 4321-2, , 3 #### [facility] CLIA [id number] [address] [place] [address] [place] Platelet mean volume (Bld) [Entitic vol] 8.5 fL Low 9.0-12.7 [facility] Comment on above: Order Comment: Speci men Type: BLOOD SPECIMEN [facility]ing [facility]: [facility] Address: [address] [place] [address] Performed By: #### 2 4321-2, , 3 #### [facility] CLIA [id number] [address] [place] Platelets (Bld) [#/Vol] 266 10*3/uL Normal 150-400 [facility] Comment on above: Order Comment: Speci men Type: BLOOD SPECIMEN [facility]ing [facility] Address: [address] [place] [address] Performed By: #### 2 4321-2, , 3 #### [facility] CLIA [id number] [address] [place] RBC (Bld) [#/Vol] 3.43 10*6/uL Low 3.90-5.20 [facility] Comment on above: Order Comment: Speci men Type: BLOOD SPECIMEN [facility]ing [facility] Address: [address] [place] [address] Performed By: #### 2 4321-2, 61226-3, 6-3 #### [facility] CLIA [id number] [address] [place] [address] [place] [facility] WBC (Bld) [#/Vol] 9.23 10*3/uL Normal 3.70-11.00 [facility] Comment on above: Order Comment: Speci men Type: BLOOD SPECIMEN Ordering [facility] Address: [facility] [place] [address] Performed By: #### 2 4321-2, 73256-4, 6 #### [facility] CLIA [id number] 1 [place] [address] [facility] CNDSon 01-13-2025 CNDS HNO ID: [id number] Author: NILTON RODRIGUEZ DO Service: Hospital Medicine [...] call for appointment?: Yes Stew Oswald MD [phone] [place] [id number] PCP Requested Referral Additional Provider to Provider [...] Pressure In (more content not included)... Normal [facility] Magnesium SerPl-mCncon 01-13 Magnesium [Mass/Vol] 1.7 mg/dL Normal 1.7-2.3 [facility] Comment on above: Order Comment: Speci men Type: BLOOD SPECIMENOrdering Facility: [facility] Address: [address] [place] [address] Performed By: #### 2 4321-2, ####[facility]ORATORYCLIA [id number] [place] [address] [place] Basic metabolic 2000 panelon 01-12-2025 Anion gap [Moles/Vol] 12 mmol/L Normal 8-15 [facility] Comment on above: Order Comment: Speci men Type: BLOOD SPECIMENOrdering Facility: [facility] Address: [address] [place] [address] Performed By: #### 2 4321-2, ####[facility]ORATORYCLIA [id number] [place] [address] [place] Calcium [Mass/Vol] 9.2 mg/dL Normal 8.5-10.2 [facility] Comment on above: Order Comment: Speci men Type: BLOOD SPECIMENOrdering Facility: [facility] Address: [address] [place] [address] Performed By: #### 2 432-2, ####[facility]ORATORYCLIA [id number] [address] OF [facility] Chloride [Moles/Vol] 104 mmol/L Normal 98-107 [facility] Comment on above: Order Comment: Speci men Type: BLOOD SPECIMENOrdering Facility: [facility] Address: [address] [place] [address] Performed By: #### 2 4321-2, ####[facility]ORATORYCLIA [id number] [place] [address] [facility] CO2 [Moles/Vol] 20 mmol/L Low 22-30 [facility] Comment on above: Order Comment: Speci men Type: BLOOD SPECIMENOrdering Facility: [facility] Address: [address] [place] [address] Performed By: #### 2 4321-2, ####[facility]ORATORYCLIA [id number] [address] Creatinine [Mass/Vol] 0.50 mg/dL Low 0.58-0.96 [facility] Comment on above: Order Comment: Speci men Type: BLOOD SPECIMENOrdering Facility: [facility] Address: [address] [place] [address] Performed By: #### 2 432-2, ####[facility]ORATORYCLIA [id number] [address] Creatinine and Glomerular filtration rate.predicted panel (S/P/Bld) 99 mL/min/1.73m??? Normal >=60 [facility] Comment on above: Order Comment: Speci men Type: BLOOD SPECIMENOrdering Facility: [facility] Address: [address] [place] [address] Result Comment: Cecy mated Glomerular Filtration Rate [...] actual GFR. Performed By: #### 2 432-, ####[facility]ITALIA [id number] [place] [address] [place] Glucose [Mass/Vol] 106 mg/dL High 74-99 [facility] Comment on above: Order Comment: Vicky montilla Type: BLOOD SPECIMENOrdering Facility: [facility] Address: [address] [place] [address] Result Comment: The [place] Diabetes [employer] (ADA) provides guidance for cutoff [...] Standards of Medical Care in Diabetes 2016, [place] [employer]. Diabetes Care. 2016.39(Suppl 1). Performed By: #### 2 432-, ####[facility]ORATORYCLIA [id number] [place] [address] [place] Potassium [Moles/Vol] 4.8 mmol/L Normal 3.7-5.1 [facility] Comment on above: Order Comment: Vicky montilla Type: BLOOD SPECIMENOrdering Facility: [facility] Address: [address] [place] [address] Performed By: #### 2 432-, ####[facility]ORATORYCLIA [id number] [place] [address] [place] Sodium [Moles/Vol] 136 mmol/L Normal 136-144 [facility] Comment on above: Order Comment: Vicky montilla Type: BLOOD SPECIMENOrdering Facility: [facility] Address: [address] [place] [id number] Performed By: #### 2 4320-2, ####[facility]ORATORYCLIA [id number] [place], [place] [address] [place] [address] [place] [facility] Urea nitrogen [Mass/Vol] 15 mg/dL Normal 7-21 [facility] Comment on above: Order Comment: Speci men Type: BLOOD SPECIMENOrdering Facility: [facility] Address: [address] [place] [address] Performed By: #### 2 4320-2, ####[facility]ORATORYCLIA [id number] [address] [place] CBC panel Auto (Bld)on 01-12 Erythrocyte distribution width (RBC) [Ratio] 13.7 % Normal 11.5-15.0 [facility] Comment on above: Order Comment: Speci men Type: BLOOD SPECIMEN [facility] Address: [address] [place] [address] Performed By: #### 2 4320-2, , 3015-3 #### [facility] CLIA [id number] [address] [place] Hematocrit (Bld) [Volume fraction] 36.4 % Normal 36.0-46.0 [facility] Comment on above: Order Comment: Speci men Type: BLOOD SPECIMEN [facility] Address: [address] [place] [address] Performed By: #### 2 4320-2, , 3015-3 #### [facility] CLIA [id number] [address] [place] Hemoglobin (Bld) [Mass/Vol] 11.8 g/dL Normal 11.5-15.5 [facility] Comment on above: Order Comment: Speci men Type: BLOOD SPECIMEN [facility]: [facility] Address: [address] [place] [address] Performed By: #### 2 4321-2, , 6-3 #### [facility] CLIA [id number] [address] MCH (RBC) [Entitic mass] 33.1 pg Normal 26.0-34.0 [facility] Comment on above: Order Comment: Speci men Type: BLOOD SPECIMEN [facility]: [facility] Address: [address] [place] [address] Performed By: #### 2 4321-2, , 3 #### [facility] CLIA [id number] [address] MCHC (RBC) [Mass/Vol] 32.4 g/dL Normal 30.5-36.0 [facility] Comment on above: Order Comment: Speci men Type: BLOOD SPECIMEN [facility]ing [facility]: [facility] Address: [address] [place] [address] Performed By: #### 2 4321-2, , 3 #### [facility] CLIA [id number] [address] [place] [address] MCV (RBC) [Entitic vol] 102.0 fL High 80.0-100.0 [facility] Comment on above: Order Comment: Speci men Type: BLOOD SPECIMEN [facility] Address: [address] [place] [address] Performed By: #### 2 4321-2, , 3 #### [facility] CLIA [id number] [address] Nucleated RBC (Bld) [#/Vol] 10*3/uL Normal <0.01 [facility] Comment on above: Order Comment: Speci men Type: BLOOD SPECIMEN [facility] Address: [address] [place] [address] Performed By: #### 2 4321-2, , 3 #### [facility] CLIA [id number] [address] OF [facility] Platelet mean volume (Bld) [Entitic vol] 8.4 fL Low 9.0-12.7 [facility] Comment on above: Order Comment: Speci men Type: BLOOD SPECIMEN [facility] Address: [address] [place] [address] Performed By: #### 2 4321-2, 56755-6, 3015-3 #### [facility] CLIA [id number] [address] Platelets (Bld) [#/Vol] 242 10*3/uL Normal 150-400 [facility] Comment on above: Order Comment: Speci men Type: BLOOD SPECIMEN [facility] Address: [address] [place] [address] Performed By: #### 2 4321-2, , 3 #### [facility] CLIA [id number] [address] RBC (Bld) [#/Vol] 3.57 10*6/uL Low 3.90-5.20 [facility] Comment on above: Order Comment: Speci men Type: BLOOD SPECIMEN [facility] Address: [address] [place] [address] Performed By: #### 2 4321-2, , 3 #### [facility] CLIA [id number] [address] WBC (Bld) [#/Vol] 9.56 10*3/uL Normal 3.70-11.00 [facility] Comment on above: Order Comment: Speci men Type: BLOOD SPECIMEN [facility] Address: [address] [place] [address] Performed By: #### 2 4321-2, , 3 #### [facility] CLIA [id number] [address] CONSULT PROGon 01-12-2025 CONSULT PROG HNO ID: [id number] Author: PATY GLASGOW APRN.SLIPMAN Service: Neurology General Author Type: Nurse Practitioner [...] fluctuating confusion and possible neglect on exam. Memorandom (limited info) shows that Keppra started on [...] the remainder of this admission. Please page [phone] if further questions or issues arise. Discharge instructions updated SIGNATURE: Paty Glasgow APRN.CNP PATIENT NAME: Elba Diaz DATE: January 12, 2025 TIME: 10:18 AM Discussed with: patient Communicated with primary team I spent a total of 25 minutes on the date of the service which included preparing to see the patient, [id number] patient care, completing clinical documentation, obtaining and/or reviewing separately obtained history, performing a medically appropriate examination, counseling and educating the patient/family/caregive r, communicating results to the patient/family/caregive r, and care coordination. Normal [facility] CONSULT PROG HNO ID: [id number] Author: SHELLY POLK RN Service: Wound/Ostomy Author [...] Contact Moisture Sacrum Routine Active Nadine Pal APRN.SLIPMAN - Reason:: Xeroform to sacrum - Reason:: [...] 1 Site Assessment Non-blanchable erythema [facility] Shape linear Wound Length (cm) 2.4 cm Wound Width (cm) 0.4 cm Wound Surface Area (cm2) 0.96 cm2 Wound Depth (cm) 0 cm Wound Volume (cm3) 0 cm3 Drainage Amount None Odor None Treatments Cleansed Dressing Foam- Adhesive Dressing Status Clean;Dry;Intact No associated orders. Wound 01/10/25 Irritant Contact Moisture Breast Left;Lower (Active) Assessments 01/12/2025 9:49 AM Wound Image Site Assessment [facility] Moist Shape linear Closure None Drainage Amount None Odor None Treatments Cleansed;Open to Air Active Orders Date Order Priority Status Authorizing Provider 01/12/25 1437 miconazole 2 % 1 application topical powder Active BlasiNadine fofana APRN.SLIPMAN Wound 01/10/25 022 Irritant Contact Moisture Groin (Active) Assessments 01/12/2025 9:49 AM Wound Image Site Assessment [facility] Moist Shape linear Drainage Amount None Odor None Treatments Cleansed;Open to Air Active Orders Date Order Priority Status Authorizing Provider 01/12/25 1437 miconazole 2 % 1 application topical powder Active Blasiole, Nadine N, BLIND TEACHER.SLIPMAN Barriers to Healing: Age, Body habitus, Comorbid [...] found under the Scanned Documents tab on [employer]. The purpose of the photo(s) is to optimize the patient's medical care and allow a visual aid to their wound evaluation and progress. Thank you for including me in the care of this patient. (more content not included)... [facility] Magnesium SerPl-mCncon 01-12 Magnesium [Mass/Vol] 1.9 mg/dL Normal 1.7-2.3 [facility] Comment on above: Order Comment: Speci men Type: BLOOD SPECIMEN Ordering Facility: [facility] Address: [address] [place] [address] Performed By: #### 3 0471-7 #### [facility] CLIA [id number] [address] [place] [address] OF [place] THERAPY NTon 01-12-2025 THERAPY NT HNO ID: [id number] Author: YEE TRIPLETT, CCC-MANAGER COSMETICS Service: Speech/Swallow Author Type: Speech Language Pathologist Type: Therapy (PT/OT/Speech/Resp) Filed: 01/12/2025 08:48 Note Text: Speech Therapy Clinical Swallow Evaluation SERVICE DATE: 01/12/2025 SERVICE TIME: 0815 to 0830 ROOM: [place] [address] IMPRESSION Swallow Deficits Identified / Suspected: Oropharyngeal dysphagia Speech Rehab Potential: Fair RECOMMENDATIONS Diet Recommendations Pureed IDDSI Level 4 Mildly Thick Liquids IDDSI Level 2 (Mier Thick) Medications crushed in puree (pudding/applesauce) Swallow [...] Justification for Recommended Discharge Disposition: Continued skilled MANAGER COSMETICS care recommended after hospital discharge for:, dysphagia requiring frequent assessment and diet modification CURRENT HOSPITAL COURSE Admitted from [facility] AMS, 323: MRI Brain- No acute intracranial [...] 5, Mildly Thick Liquids IDDSI Level 2 (Mier Thick), Medications crushed in puree (pudding/applesauce) SUBJECTIVE Drowsy but tries to participate, agrees to testing THERAPY DIAGNOSIS Dysphagia, unspecified TREATMENT INTERVENTIONS Clinical Swallow Evaluation (31694) Skilled Treatment Time (minutes): 15 $ Clinical Swallow Evaluation (42768) Billed Units: 1 unit TRAINING AND EDUCATION [...] 5, Mildly Thick Liquids IDDSI Level 2 (Mier Thick) Current Level Of Communication: Verbal Current [...] During Assessment: Upright In Bed Feeding Method: MANAGER COSMETICS Fed Patient Consistencies Presented: Mildly Thick Liquids IDDSI Level 2 (Mier Thick), Thin Liquids IDDSI Level 0, Pureed [...] Study: (patient reports choking on thins at group home) Patient coughing and choking on thins Patient reports coughing on thins at [facility] and now needing nectars Patient did not cough with nectars or puree Patient with slow chewing with minced and moist, needed cues to chew, holding (more content not included)... [facility] ALLIED HEALTHon 01-11-2025 ALLIED HEALTH HNO ID: [id number] Author: KRISTIAN CHESTER RT(R) Service: ? Author [...] PATIENT PRESENTS WITH AN IMPLANTABLE OR ATTACHED [place] ATTORNEY: No RADIOLOGY DEPARTMENT: MR; Exam(s) Completed: Head: Routine Brain PERIPHERAL IV DATA: Inpatient: see LDA documentation SIGNED BY: Kristian Chester RT(R) January 11, 2025 4:12 PM [facility] Basic metabolic 2000 panelon 01-11-2025 Anion gap [Moles/Vol] 13 mmol/L Normal 8-15 [facility] Comment on above: Order Comment: Speci men Type: BLOOD SPECIMEN Ordering Facility: [facility] Address: [address] [place] [address] Performed By: #### 3 0471-7 #### [facility] CLIA [id number] [address] [place] [address] [place] Calcium [Mass/Vol] 8.9 mg/dL Normal 8.5-10.2 [facility] Comment on above: Order Comment: Speci men Type: BLOOD SPECIMEN Ordering Facility: [facility] Address: [address] [place] [address] Performed By: #### 3 0471-7 #### [facility] CLIA [id number] [address] [place] [address] [place] Chloride [Moles/Vol] 100 mmol/L Normal 98-107 [facility] Comment on above: Order Comment: Speci men Type: BLOOD SPECIMEN Ordering Facility: [facility] Address: [address] [place] [address] Performed By: #### 3 0471-7 #### [facility] CLIA [id number] [address] [place] [address] [place] CO2 [Moles/Vol] 18 mmol/L Low 22-30 [facility] Comment on above: Order Comment: Speci men Type: BLOOD SPECIMEN Ordering Facility: [facility] Address: [address] [place] [address] Performed By: #### 3 0471-7 #### [facility] CLIA [id number] [address] [place] [address] [place] Creatinine [Mass/Vol] 0.45 mg/dL Low 0.58-0.96 [facility] Comment on above: Order Comment: Vicky montilla Type: BLOOD SPECIMEN Ordering Facility: [facility] Address: [address] [place] [address] Performed By: #### 3 0471-7 #### [facility] CLIA [id number] [address] [place] [address] [place] Creatinine and Glomerular filtration rate.predicted panel (S/P/Bld) 102 mL/min/1.73m??? Normal >=60 [facility] Comment on above: Order Comment: Vicky montilla Type: BLOOD SPECIMEN Ordering Facility: [facility] Address: [address] [place] [address] Result Comment: Cecy mated Glomerular Filtration Rate [...] GFR. Performed By: #### 3 0471-7 #### [facility] CLIA [id number] [address] [place] [address] [place] Glucose [Mass/Vol] 91 mg/dL Normal 74-99 [facility] Comment on above: Order Comment: Vicky montilla Type: BLOOD SPECIMEN Ordering Facility: [facility] Address: [address] [place] [address] Result Comment: The [place] Diabetes Association (ADA) provides guidance for cutoff [...] Standards of Medical Care in Diabetes 2016, [place] [employer]. Diabetes Care. 2016.39(Suppl 1). Performed By: #### 3 0471-7 #### [facility] CLIA [id number] [address] [place] [address] [place] Potassium [Moles/Vol] 4.3 mmol/L Normal 3.7-5.1 [facility] Comment on above: Order Comment: Vikrami men Type: BLOOD SPECIMEN Ordering Facility: [facility] Address: [address] [place] [address] Performed By: #### 3 0471-7 #### [facility] CLIA [id number] [address] [place] [address] [place] Sodium [Moles/Vol] 131 mmol/L Low 136-144 [facility] Comment on above: Order Comment: Vicky montilla Type: BLOOD SPECIMEN Ordering Facility: [facility] Address: [address] [place] [address] Performed By: #### 3 0471-7 #### [facility] CLIA [id number] [address] [place] [address] [place] Urea nitrogen [Mass/Vol] 15 mg/dL Normal 7-21 [facility] Comment on above: Order Comment: Speci men Type: BLOOD SPECIMEN Ordering Facility: [facility] Address: [address] [place] [address] Performed By: #### 3 0471-7 #### [facility] CLIA [id number] [address] [place] [address] [place] CBC panel Auto (Bld)on 01-11 Erythrocyte distribution width (RBC) [Ratio] 13.2 % Normal 11.5-15.0 [facility] Comment on above: Order Comment: Speci men Type: BLOOD SPECIMEN Ordering Facility: [facility] Address: [address] [place] [address] Performed By: #### 2 4321-2, , 3015-12 #### [facility] CLIA [id number] [address] OF [facility] Hematocrit (Bld) [Volume fraction] 36.6 % Normal 36.0-46.0 [facility] Comment on above: Order Comment: Speci men Type: BLOOD SPECIMEN Ordering Facility: [facility] Address: [address] [place] [address] Performed By: #### 2 4321-2, , 3015-12 #### [facility] CLIA [id number] [address] STATES OF [facility] Hemoglobin (Bld) [Mass/Vol] 12.0 g/dL Normal 11.5-15.5 [facility] Comment on above: Order Comment: Speci men Type: BLOOD SPECIMEN Ordering Facility: [facility] Address: [address] [place] [address] Performed By: #### 2 4321-2, , 3015-12 #### [facility] CLIA [id number] [address] [place] [facility] MCH (RBC) [Entitic mass] 32.6 pg Normal 26.0-34.0 [facility] Comment on above: Order Comment: Speci men Type: BLOOD SPECIMEN Ordering Facility: [facility] Address: [address] [place] [address] Performed By: #### 2 4321-2, , 3 #### [facility] CLIA [id number] [address] STATES [facility] MCHC (RBC) [Mass/Vol] 32.8 g/dL Normal 30.5-36.0 [facility] Comment on above: Order Comment: Speci men Type: BLOOD SPECIMEN Ordering Facility: [facility] Address: [address] [place] [address] Performed By: #### 2 4321-2, , 3 #### [facility] CLIA [id number] [address] MCV (RBC) [Entitic vol] 99.5 fL Normal 80.0-100.0 [facility] Comment on above: Order Comment: Speci men Type: BLOOD SPECIMEN Ordering Facility: [facility] Address: [address] [place] [address] Performed By: #### 2 4321-2, , 3015-12 #### [facility] CLIA [id number] [address] Nucleated RBC (Bld) [#/Vol] 0.02 10*3/uL High <0.01 [facility] Comment on above: Order Comment: Speci men Type: BLOOD SPECIMEN Ordering Facility: [facility] Address: [address] [place] [address] Performed By: #### 2 1-2, , 3015-12 #### [facility] CLIA [id number] [address] Platelet mean volume (Bld) [Entitic vol] 8.5 fL Low 9.0-12.7 [facility] Comment on above: Order Comment: Speci men Type: BLOOD SPECIMEN Ordering Facility: [facility] Address: [address] [place] [address] Performed By: #### 2 4321-2, , 3 #### [facility] CLIA [id number] [address] Platelets (Bld) [#/Vol] 227 10*3/uL Normal 150-400 [facility] Comment on above: Order Comment: Speci men Type: BLOOD SPECIMEN Ordering Facility: [facility] Address: [address] [place] [address] Performed By: #### 2 4321-2, , 3 #### [facility] CLIA [id number] [address] [place] [address] [place] RBC (Bld) [#/Vol] 3.68 10*6/uL Low 3.90-5.20 [facility] Comment on above: Order Comment: Speci men Type: BLOOD SPECIMEN Ordering Facility: [facility] Address: [address] [place] [address] Performed By: #### 2 4321-2, , 3015-12 #### [facility] CLIA [id number] 1 [place] [id number] [facility] WBC (Bld) [#/Vol] 8.76 10*3/uL Normal 3.70-11.00 [facility] Comment on above: Order Comment: Speci men Type: BLOOD SPECIMEN Ordering Facility: [facility] Address: [address] [place] [address] Performed By: #### 2 4321-2, , 3015-12 #### [facility] CLIA [id number] 1 [place] [id number] [facility] CONSULTon 01-11-2025 CONSULT HNO ID: [id number] Author: JAYDON SIMEON MD Service: Neurology General [...] plegia Sensation: Intact to light touch Coordination: [id number] on R intact DATA: LABS: Reviewed in [facility] WBC (k/uL) Date Value 01/11/2025 8.76 [...] 0.99 Creatinin (more content not included)... [facility] MRI BRAIN WO IVCONon 025 MRI BRAIN WO IVCON * * *Final Report* * * DATE OF EXAM: Jan 11 2025 4:24PM [facility] 0294 - MRI BRAIN WO [...] intracranial process. Chronic changes and remote infarcts. Reinforcing Rod Layer: ALEXANDRO Transcribe Date/Time: Jan 11 2025 5:04P Dictated by : DELBERT HYATT MD This examination was interpreted and the report reviewed and electronically signed by: DELBERT HYATT MD on Jan 11 2025 5:50PM EST [id number] Normal [facility] Magnesium SerPl-mCncon 01-11 Magnesium [Mass/Vol] 2.3 mg/dL Normal 1.7-2.3 [facility] Comment on above: Order Comment: Specjey montilla Type: BLOOD SPECIMEN Ordering Facility: [facility] Address: [address] [place] [address] Performed By: #### 3 0471-7 #### [facility] CLIA [id number] [address] [place] [address] [place] T4 Free SerPl-mCncon 025 Free T4 [Mass/Vol] 1.1 ng/dL Normal 0.9-1.7 [facility] Comment on above: Order Comment: Vicky montilla Type: BLOOD SPECIMEN Ordering Facility: [facility] Address: [address] [place] [address] Performed By: #### 3 0471-7 #### [facility] CLIA [id number] [address] [place] [address] [place] Basic metabolic 2000 panelon 01-10-2025 Anion gap [Moles/Vol] 9 mmol/L Normal 8-15 [facility] Comment on above: Order Comment: Specjey montilla Type: BLOOD SPECIMEN Ordering Facility: [facility] Address: [address] [place] [address] Performed By: #### 2 4321-2, 27760-3, 3016-3 #### [facility] CLIA [id number] [address] [place] [address] [place] Calcium [Mass/Vol] 8.2 mg/dL Low 8.5-10.2 [facility] Comment on above: Order Comment: Speci men Type: BLOOD SPECIMEN Ordering Facility: [facility] Address: [address] [place] [address] Performed By: #### 2 4321-2, , 3 #### [facility] CLIA [id number] [address] [place] [address] [place] Chloride [Moles/Vol] 104 mmol/L Normal 98-107 [facility] Comment on above: Order Comment: Speci men Type: BLOOD SPECIMEN Ordering Facility: [facility] Address: [address] [place] [address] Performed By: #### 2 4321-2, , 3 #### [facility] CLIA [id number] [address] [place] CO2 [Moles/Vol] 22 mmol/L Normal 22-30 [facility] Comment on above: Order Comment: Speci men Type: BLOOD SPECIMEN Ordering Facility: [facility] Address: [address] [place] [address] Performed By: #### 2 4321-2, , 3 #### [facility] CLIA [id number] [address] [place] Creatinine [Mass/Vol] 0.32 mg/dL Low 0.58-0.96 [facility] Comment on above: Order Comment: Speci men Type: BLOOD SPECIMEN Ordering Facility: [facility] Address: [address] [place] [address] Performed By: #### 2 4321-2, , 3 #### [facility] CLIA [id number] [address] Creatinine and Glomerular filtration rate.predicted panel (S/P/Bld) 110 mL/min/1.73m??? Normal >=60 [facility] Comment on above: Order Comment: Speci men Type: BLOOD SPECIMEN Ordering Facility: [facility] Address: [address] [place] [address] Result Comment: Cecy mated Glomerular Filtration Rate [...] By: #### 2 4321-2, , 3015-3 #### [facility] CLIA [id number] [address] [place] [address] [place] Glucose [Mass/Vol] 100 mg/dL High 74-99 [facility] Comment on above: Order Comment: Vicky montilla Type: BLOOD SPECIMEN Ordering Facility: [facility] Address: [address] [place] [address] Result Comment: The [place] Diabetes Association (ADA) provides guidance for cutoff [...] Standards of Medical Care in Diabetes 2016, [place] [employer]. Diabetes Care. 2016.39(Suppl 1). Performed By: #### 2 4321-2, , 3 #### [facility] CLIA [id number] [address] [place] [address] [place] Potassium [Moles/Vol] 3.3 mmol/L Low 3.7-5.1 [facility] Comment on above: Order Comment: Vicky montilla Type: BLOOD SPECIMEN Ordering Facility: [facility] Address: [address] [place] [address] Performed By: #### 2 4321-2, , 3015-3 #### [facility] CLIA [id number] [address] [place] [address] [place] Sodium [Moles/Vol] 135 mmol/L Low 136-144 [facility] Comment on above: Order Comment: Speci men Type: BLOOD SPECIMEN Ordering Facility: [facility] Address: [address] [place] [address] Performed By: #### 2 4321-2, 51618-9, 6-3 #### [facility] CLIA [id number] [address] [place] [address] [place] Urea nitrogen [Mass/Vol] 21 mg/dL Normal 7-21 [facility] Comment on above: Order Comment: Speci men Type: BLOOD SPECIMEN Ordering Facility: [facility] Address: [address] [place] [address] Performed By: #### 2 4321-2, 23505-3, 6-3 #### [facility] CLIA [id number] [address] [place] [address] [place] CBC panel Auto (Bld)on 01-10 Erythrocyte distribution width (RBC) [Ratio] 12.7 % Normal 11.5-15.0 [facility] Comment on above: Order Comment: Speci men Type: BLOOD SPECIMEN Ordering Facility: [facility] Address: [address] [place] [address] Performed By: #### 3 0471-7 #### [facility] CLIA [id number] [address] [place] [address] [place] Hematocrit (Bld) [Volume fraction] 32.2 % Low 36.0-46.0 [facility] Comment on above: Order Comment: Speci men Type: BLOOD SPECIMEN Ordering Facility: [facility] Address: [address] [place] [address] Performed By: #### 3 0471-7 #### [facility] CLIA [id number] [address] [place] [address] [place] Hemoglobin (Bld) [Mass/Vol] 10.7 g/dL Low 11.5-15.5 [facility] Comment on above: Order Comment: Speci men Type: BLOOD SPECIMEN Ordering Facility: [facility] Address: [address] [place] [address] Performed By: #### 3 0471-7 #### [facility] CLIA [id number] [address] [place] [address] [place] MCH (RBC) [Entitic mass] 32.7 pg Normal 26.0-34.0 [facility] Comment on above: Order Comment: Speci men Type: BLOOD SPECIMEN Ordering Facility: [facility] Address: [address] [place] [address] Performed By: #### 3 0471-7 #### [facility] CLIA [id number] [address] [place] [address] [place] MCHC (RBC) [Mass/Vol] 33.2 g/dL Normal 30.5-36.0 [facility] Comment on above: Order Comment: Speci men Type: BLOOD SPECIMEN Ordering Facility: [facility] Address: [address] [place] [address] Performed By: #### 3 0471-7 #### [facility] CLIA [id number] [address] [place] [address] [place] MCV (RBC) [Entitic vol] 98.5 fL Normal 80.0-100.0 [facility] Comment on above: Order Comment: Speci men Type: BLOOD SPECIMEN Ordering Facility: [facility] Address: [address] [place] [address] Performed By: #### 3 0471-7 #### [facility] CLIA [id number] [address] [place] [address] [place] Nucleated RBC (Bld) [#/Vol] 10*3/uL Normal <0.01 [facility] Comment on above: Order Comment: Speci men Type: BLOOD SPECIMEN Ordering Facility: [facility] Address: [address] [place] [address] Performed By: #### 3 0471-7 #### [facility] CLIA [id number] [address] [place] [address] [place] Platelet mean volume (Bld) [Entitic vol] 8.3 fL Low 9.0-12.7 [facility] Comment on above: Order Comment: Speci men Type: BLOOD SPECIMEN Ordering Facility: [facility] Address: [address] [place] [address] Performed By: #### 3 0471-7 #### [facility] CLIA [id number] [address] [place], [place] [address] [place] Platelets (Bld) [#/Vol] 168 10*3/uL Normal 150-400 [facility] Comment on above: Order Comment: Speci men Type: BLOOD SPECIMEN Ordering Facility: [facility] Address: [address] [place] [address] Performed By: #### 3 0471-7 #### [facility] CLIA [id number] [address] [place] [address] [place] RBC (Bld) [#/Vol] 3.27 10*6/uL Low 3.90-5.20 [facility] Comment on above: Order Comment: Speci men Type: BLOOD SPECIMEN Ordering Facility: [facility] Address: [address] [place] [address] Performed By: #### 3 0471-7 #### [facility] CLIA [id number] [address] [place] [address] [place] WBC (Bld) [#/Vol] 11.16 10*3/uL High 3.70-11.00 [facility] Comment on above: Order Comment: Speci men Type: BLOOD SPECIMEN Ordering Facility: [facility] Address: [address] [place] [address] Performed By: #### 3 0471-7 #### [facility] CLIA [id number] [address] [place], [place] [address] [address] [facility] ED NOTEon 01-10-2025 ED NOTE HNO ID: [id number] Author: CHASIDY BOUDREAUX, MONAE Service: Emergency Medicine Author Type: Registered Nurse Type: ED Notes Filed: 01/10/2025 00:42 Note Text: 7100 receiving nurse Stephanie called for verbal report. Ok'd for pt. Normal [facility] Magnesium SerPl-mCncon 01-10 Magnesium [Mass/Vol] 1.6 mg/dL Low 1.7-2.3 [facility] Comment on above: Order Comment: Speci men Type: BLOOD SPECIMEN Ordering Facility: [facility] Address: [address] [place] [address] Performed By: #### 2 4321-2, , 3 #### [facility] CLIA [id number] [address] [facility] TSH SerPl-aCncon 01-10-2025 TSH Qn 0.015 m[IU]/L Low 0.270-4.200 [facility] Comment on above: Order Comment: Speci men Type: BLOOD SPECIMEN Ordering Facility: [facility] Address: [address] [place] [address] Performed By: #### 2 4321-2, , 3 #### [facility] CLIA [id number] [address] [facility] Valproate SerPl-mCncon 01-10 Valproate [Mass/Vol] ug/mL Low 50.0-100.0 [facility] Comment on above: Order Comment: Speci men Type: BLOOD SPECIMEN Ordering Facility: [facility] Address: [address] [place] [address] Result Comment: Refe rence ranges and high/low indicator flags are provided as general guidelines only. The treating physician must determine appropriate target levels/dosing based on the specific clinical situation. Performed By: #### 2 4321-2, , 3 #### [facility] CLIA [id number] [address] [place] [address] [place] levETIRAcetam SerPl-mCncon 0 01-10-2025 levETIRAcetam [Mass/Vol] 12.7 ug/mL Normal 12.0-46.0 [facility] Comment on above: Order Comment: Speci men Type: BLOOD SPECIMEN Ordering Facility: [facility] Address: [address] [place] [address] Result Comment: This test is not suitable [...] and its performance characteristics determined by the [facility] Department of Pathology and Laboratory Medicine. It has not been cleared or approved by the FDA. The [facility] Department of Pathology and Laboratory Medicine is regulated under CLIA as qualified to perform high-complexity testing. This test is used for clinical purposes. It should not be regarded as investigational or for research. Performed By: #### 3 0471-7 #### [facility] CLIA [id number] [address] [place] [address] [place] [address] [place] ALLIED HEALTHon 01-09-2025 ALLIED HEALTH HNO ID: [id number] Author: ELMER PEGUERO RT(R) Service: Radiology Author [...] PATIENT PRESENTS WITH AN IMPLANTABLE OR ATTACHED [place] ATTORNEY: No RADIOLOGY DEPARTMENT: CT; Exam(s) Completed: Brain PERIPHERAL IV DATA: Not applicable SIGNED BY: RT Toña(R) January 09, 2025 7:55 PM [facility] CBC W Auto Differential pane l (Bld)on 01-09-2025 Basophils (Bld) [#/Vol] 0.07 10*3/uL Normal <0.11 [facility] Comment on above: Order Comment: Speci men Type: BLOOD SPECIMEN Ordering Facility: [facility] Address: [address] [place] [address] Performed By: #### 3 0471-7 #### [facility] CLIA [id number] [address] [place] [address] [place] Basophils/100 WBC (Bld) 0.7 % Normal A [facility] Comment on above: Order Comment: Speci men Type: BLOOD SPECIMEN Ordering Facility: [facility] Address: [address] [place] [address] Performed By: #### 3 0471-7 #### [facility] CLIA [id number] [address] [place] [address] [place] Differential cell count method Nom (Bld) Auto Normal [facility] Comment on above: Order Comment: Speci men Type: BLOOD SPECIMEN Ordering Facility: [facility] Address: [address] [place] [address] Performed By: #### 3 0471-7 #### [facility] CLIA [id number] [address] [place] [address] [place] Eosinophils (Bld) [#/Vol] 0.09 10*3/uL Normal <0.46 [facility] Comment on above: Order Comment: Speci men Type: BLOOD SPECIMEN Ordering Facility: [facility] Address: [address] [place] [address] Performed By: #### 3 0471-7 #### [facility] CLIA [id number] [address] [place] [address] [place] Eosinophils/100 WBC (Bld) 0.9 % Normal [facility] Comment on above: Order Comment: Speci men Type: BLOOD SPECIMEN Ordering Facility: [facility] Address: [address] [place] [address] Performed By: #### 3 0471-7 #### [facility] CLIA [id number] [address] [place] [address] [place] Erythrocyte distribution width (RBC) [Ratio] 13.0 % Normal 11.5-15.0 [facility] Comment on above: Order Comment: Speci men Type: BLOOD SPECIMEN Ordering Facility: [facility] Address: [address] [place] [address] Performed By: #### 3 0471-7 #### [facility] CLIA [id number] [address] [place] [address] [place] Hematocrit (Bld) [Volume fraction] 36.8 % Normal 36.0-46.0 [facility] Comment on above: Order Comment: Speci men Type: BLOOD SPECIMEN Ordering Facility: [facility] Address: [address] [place] [address] Performed By: #### 3 0471-7 #### [facility] CLIA [id number] [address] [place] [address] [place] Hemoglobin (Bld) [Mass/Vol] 11.9 g/dL Normal 11.5-15.5 [facility] Comment on above: Order Comment: Speci men Type: BLOOD SPECIMEN Ordering Facility: [facility] Address: [address] [place] [address] Performed By: #### 3 0471-7 #### [facility] CLIA [id number] [address] [place] [address] [place] Immature granulocytes (Bld) [#/Vol] 0.08 10*3/uL Normal <0.10 [facility] Comment on above: Order Comment: Speci men Type: BLOOD SPECIMEN Ordering Facility: [facility] Address: [address] [place] [address] Performed By: #### 3 0471-7 #### [facility] CLIA [id number] [address] [place] [address] [place] Immature granulocytes/100 WBC (Bld) 0.8 % Normal [facility] Comment on above: Order Comment: Speci men Type: BLOOD SPECIMEN Ordering Facility: [facility] Address: [address] [place] [address] Performed By: #### 3 0471-7 #### [facility] CLIA [id number] [address] [place] [address] [place] Lymphocytes (Bld) [#/Vol] 1.96 10*3/uL Normal 1.00-4.00 [facility] Comment on above: Order Comment: Speci men Type: BLOOD SPECIMEN Ordering Facility: [facility] Address: [address] [place] [address] Performed By: #### 3 0471-7 #### [facility] CLIA [id number] [address] [place] [address] [place] Lymphocytes/100 WBC (Bld) 18.8 % Normal [facility] Comment on above: Order Comment: Speci men Type: BLOOD SPECIMEN Ordering Facility: [facility] Address: [address] [place] [address] Performed By: #### 3 0471-7 #### [facility] CLIA [id number] [address] [place] [address] [place] MCH (RBC) [Entitic mass] 32.6 pg Normal 26.0-34.0 [facility] Comment on above: Order Comment: Speci men Type: BLOOD SPECIMEN Ordering Facility: [facility] Address: [address] [place] [address] Performed By: #### 3 0471-7 #### [facility] CLIA [id number] [address] [place] [address] [place] MCHC (RBC) [Mass/Vol] 32.3 g/dL Normal 30.5-36.0 [facility] Comment on above: Order Comment: Speci men Type: BLOOD SPECIMEN Ordering Facility: [facility] Address: [address] [place] [address] Performed By: #### 3 0471-7 #### [facility] CLIA [id number] [address] [place] [address] [place] MCV (RBC) [Entitic vol] 100.8 fL High 80.0-100.0 A [facility] Comment on above: Order Comment: Speci men Type: BLOOD SPECIMEN Ordering Facility: [facility] Address: [address] [place] [address] Performed By: #### 3 0471-7 #### [facility] CLIA [id number] [address] [place] [address] [place] Monocytes (Bld) [#/Vol] 0.89 10*3/uL High <0.87 [facility] Comment on above: Order Comment: Speci men Type: BLOOD SPECIMEN Ordering Facility: [facility] Address: [address] [place] [address] Performed By: #### 3 0471-7 #### [facility] CLIA [id number] [address] [place] [address] [place] Monocytes/100 WBC (Bld) 8.5 % Normal A [facility] Comment on above: Order Comment: Speci men Type: BLOOD SPECIMEN Ordering Facility: [facility] Address: [address] [place] [address] Performed By: #### 3 0471-7 #### [facility] CLIA [id number] [address] [place] [address] [place] Neutrophils (Bld) [#/Vol] 7.35 10*3/uL Normal 1.45-7.50 [facility] Comment on above: Order Comment: Speci men Type: BLOOD SPECIMEN Ordering Facility: [facility] Address: [address] [place] [address] Performed By: #### 3 0471-7 #### [facility] CLIA [id number] [address] [place] [address] [place] Neutrophils/100 WBC (Bld) 70.3 % Normal [facility] Comment on above: Order Comment: Speci men Type: BLOOD SPECIMEN Ordering Facility: [facility] Address: [address] [place] [address] Performed By: #### 3 0471-7 #### [facility] CLIA [id number] [address] [place] [address] [place] Nucleated RBC (Bld) [#/Vol] 10*3/uL Normal <0.01 [facility] Comment on above: Order Comment: Speci men Type: BLOOD SPECIMEN Ordering Facility: [facility] Address: [address] [place] [address] Performed By: #### 3 0471-7 #### [facility] CLIA [id number] [address] [place] [address] [place] Nucleated RBC/100 WBC (Bld) [Ratio] 0.0 /100 WBC Normal [facility] Comment on above: Order Comment: Speci men Type: BLOOD SPECIMEN Ordering Facility: [facility] Address: [address] [place] [address] Performed By: #### 3 0471-7 #### [facility] CLIA [id number] [address] [place] [address] [place] Platelet mean volume (Bld) [Entitic vol] 8.5 fL Low 9.0-12.7 [facility] Comment on above: Order Comment: Speci men Type: BLOOD SPECIMEN Ordering Facility: [facility] Address: [address] [place] [address] Performed By: #### 3 0471-7 #### [facility] CLIA [id number] [address] [place] [address] [place] Platelets (Bld) [#/Vol] 223 10*3/uL Normal 150-400 [facility] Comment on above: Order Comment: Speci men Type: BLOOD SPECIMEN Ordering Facility: [facility] Address: [address] [place] [address] Performed By: #### 3 0471-7 #### [facility] CLIA [id number] [address] [place] [address] [place] RBC (Bld) [#/Vol] 3.65 10*6/uL Low 3.90-5.20 [facility] Comment on above: Order Comment: Speci men Type: BLOOD SPECIMEN Ordering Facility: [facility] Address: [address] [place] [address] Performed By: #### 3 0471-7 #### [facility] CLIA [id number] [address] [place] [address] [place] WBC (Bld) [#/Vol] 10.44 10*3/uL Normal 3.70-11.00 [facility] Comment on above: Order Comment: Speci men Type: BLOOD SPECIMEN Ordering Facility: [facility] Address: [address] [place] [address] Performed By: #### 3 0471-7 #### [facility] CLIA [id number] [address] [place] [address] [place] CT BRAIN WO IVCONon 01-10-20 CT BRAIN WO IVCON * * *Final Report* * * DATE OF EXAM: Jan 09 2025 7:58PM [facility] 0504 - CT BRAIN WO [...] changes without evidence for acute intracranial abnormality. Reinforcing Rod Layer: ALEXANDRO Transcribe Date/Time: Jan 09 2025 7:59P Dictated by : HAMILTON LERMA MD This examination was interpreted and the report reviewed and electronically signed by: HAMILTON LERMA MD on Jan 09 2025 8:01PM EST [id number] Normal [facility] Comprehensive metabolic 2000 panelon 01-09-2025 Albumin [Mass/Vol] 3.1 g/dL Low 3.9-4.9 [facility] Comment on above: Order Comment: Vicky montilla Type: BLOOD SPECIMEN Ordering Facility: [facility] Address: [address] [place] [address] Performed By: #### 2 4321-2, 98284-2, 3016-3 #### [facility] CLIA [id number] [address] [place] [address] [place] ALP [Catalytic activity/Vol] 66 U/L Normal 34-123 [facility] Comment on above: Order Comment: Vicky montilla Type: BLOOD SPECIMEN Ordering Facility: [facility] Address: [address] [place] [address] Performed By: #### 2 4321-2, 33900-5, 6-3 #### [facility] CLIA [id number] [address] [place] ALT With P-5'-P [Catalytic activity/Vol] 12 U/L Normal 7-38 [facility] Comment on above: Order Comment: Speci men Type: BLOOD SPECIMEN Ordering Facility: [facility] Address: [address] [place] [address] Performed By: #### 2 4321-2, , 3015-3 #### [facility] CLIA [id number] [address] Anion gap [Moles/Vol] 12 mmol/L Normal 8-15 [facility] Comment on above: Order Comment: Speci men Type: BLOOD SPECIMEN Ordering Facility: [facility] Address: [address] [place] [address] Performed By: #### 2 4321-2, , 3015-3 #### [facility] CLIA [id number] [address] AST With P-5'-P [Catalytic activity/Vol] 22 U/L Normal 13-35 [facility] Comment on above: Order Comment: Speci men Type: BLOOD SPECIMEN Ordering Facility: [facility] Address: [address] [place] [address] Performed By: #### 2 4321-2, , 3015-3 #### [facility] CLIA [id number] [address] STATES OF [facility] Bilirubin [Mass/Vol] mg/dL Low 0.2-1.3 [facility] Comment on above: Order Comment: Speci men Type: BLOOD SPECIMEN Ordering Facility: [facility] Address: [address] [place] [address] Performed By: #### 2 4321-2, , 6-3 #### [facility] CLIA [id number] [address] [place] Calcium [Mass/Vol] 9.0 mg/dL Normal 8.5-10.2 [facility] Comment on above: Order Comment: Speci men Type: BLOOD SPECIMEN Ordering Facility: [facility] Address: [address] [place] [address] Performed By: #### 2 4321-2, , 3 #### [facility] CLIA [id number] [address] [place] Chloride [Moles/Vol] 108 mmol/L High 98-107 [facility] Comment on above: Order Comment: Speci men Type: BLOOD SPECIMEN Ordering Facility: [facility] Address: [address] [place] [address] Performed By: #### 2 4321-2, , 3 #### [facility] CLIA [id number] [address] STATES OF [facility] CO2 [Moles/Vol] 21 mmol/L Low 22-30 [facility] Comment on above: Order Comment: Speci men Type: BLOOD SPECIMEN Ordering Facility: [facility] Address: [address] [place] [address] Performed By: #### 2 4321-2, , 3 #### [facility] CLIA [id number] [address] OF [facility] Creatinine [Mass/Vol] 0.40 mg/dL Low 0.58-0.96 [facility] Comment on above: Order Comment: Speci men Type: BLOOD SPECIMEN Ordering Facility: [facility] Address: [address] [place] [address] Performed By: #### 2 4321-2, , 3 #### [facility] CLIA [id number] [address] Creatinine and Glomerular filtration rate.predicted panel (S/P/Bld) 105 mL/min/1.73m??? Normal >=60 [facility] Comment on above: Order Comment: Speci men Type: BLOOD SPECIMEN Ordering Facility: [facility] Address: [address] [place] [address] Result Comment: Cecy mated Glomerular Filtration Rate [...] actual GFR. Performed By: #### 2 4321-2, 33094-9, 3015-3 #### [facility] CLIA [id number] [address] [place] [address] [place] Glucose [Mass/Vol] 96 mg/dL Normal 74-99 [facility] Comment on above: Order Comment: Vicky montilla Type: BLOOD SPECIMEN Ordering Facility: [facility] Address: [address] [place] [address] Result Comment: The [place] Diabetes Association (ADA) provides guidance for cutoff [...] Standards of Medical Care in Diabetes 2016, [place] [employer]. Diabetes Care. 2016.39(Suppl 1). Performed By: #### 2 4321-2, , 3015-3 #### [facility] CLIA [id number] [address] [place] [address] [place] Potassium [Moles/Vol] 4.2 mmol/L Normal 3.7-5.1 [facility] Comment on above: Order Comment: Vicky montilla Type: BLOOD SPECIMEN Ordering Facility: [facility] Address: [address] [place] [place] [id number] Performed By: #### 2 4321-2, 25914-8, 3015-3 #### [facility] CLIA [id number] [address] [place] [address] [place] Protein [Mass/Vol] 5.8 g/dL Low 6.3-8.0 [facility] Comment on above: Order Comment: Speci men Type: BLOOD SPECIMEN Ordering Facility: [facility] Address: [address] [place] [address] Performed By: #### 2 4321-2, , 3015-3 #### [facility] CLIA [id number] [address] [place] [address] [place] Sodium [Moles/Vol] 141 mmol/L Normal 136-144 [facility] Comment on above: Order Comment: Speci men Type: BLOOD SPECIMEN Ordering Facility: [facility] Address: [address] [place] [address] Performed By: #### 2 4321-2, , 3015-3 #### [facility] CLIA [id number] [address] [place] Urea nitrogen [Mass/Vol] 25 mg/dL High 7-21 [facility] Comment on above: Order Comment: Speci men Type: BLOOD SPECIMEN Ordering Facility: [facility] Address: [address] [place] [address] Performed By: #### 2 4321-2, , 3015-3 #### [facility] CLIA [id number] [address] [place] ED NOTEon 01-09-2025 ED NOTE HNO ID: [id number] Author: CHASIDY BOUDREAUX RN Service: Emergency Medicine Author Type: Registered Nurse Type: ED Notes Filed: 01/09/2025 23:01 Note Text: Jose martínez updated on plan of care AND bed assignment [facility] ED NOTE HNO ID: [id number] Author: CHASIDY BOUDREAUX RN Service: Emergency Medicine Author Type: Registered Nurse Type: ED Notes Filed: 01/09/2025 19:28 Note Text: Ct called - message left. [facility] ED NOTE HNO ID: [id number] Author: JOHN BLANCO, MONAE Service: ? Author Type: Registered Nurse Type: ED Notes Filed: 01/09/2025 16:23 Note Text: MD Chaney notified of automatic BP of 70s/40s and manual of 98/62 [facility] ED NOTE HNO ID: [id number] Author: PAMELA BALLESTEROS Medic Service: ? Author Type: Dixonac Operator and Healthcare Analyst Type: ED Notes Filed: 01/09/2025 12:29 Note Text: Bed: 43-ED Expected date: Expected time: Means of arrival: Comments: Mel 74yo AMS 10d [facility] ED PROGRESS NOTE (PROVIDER)o n 01-09-2025 ED PROGRESS NOTE (PROVIDER) HNO ID: [id number] Author: CHRIS KIRKPATRICK MD Service: Emergency Medicine [...] SINUS RHYTHM Confirmed by PINO DONALDSON MD ([id number]) on 01/09/2025 4:36:11 PM EKG Impression NORMAL SINUS RHYTHM LOW VOLTAGE QRS BORDERLINE ECG WHEN COMPARED WITH ECG OF 14-Dec-2024 13:46, NO SIGNIFICANT CHANGE WAS FOUND Confirmed by PINO DONALDSON MD ([id number]) on 01/09/2025 2:57:29 PM Medical Decision Making SIGNATURE: Chris Kirkpatrick MD PATIENT NAME: Elba Diaz DATE: January 09, 2025 TIME: 5:32 PM PAGER/CONTACT #: - [facility] ED PROV NOTEon 01-09-2025 ED PROV NOTE HNO ID: [id number] Author: GUTIERREZ SCHULTZ MD Service: Emergency Medicine Author Type: Physician Type: ED Provider Notes Filed: 03/14/2025 12:05 Note Text: ED Provider Note Patient Name: Elba Diaz : 1950 SERVICE DATE: 01/09/25 History Patient presents with: Altered Level Of Consciousness: Pt arrived via [place] [facility] from [facility] [place] for c/o pt not acting right. Pt is awake and alert x3 with clear speech. Pt has hx CVA with left sided paralysis. Pt has chronic right knee pain. Patient presenting from [facility] in [place], with complaints of altered mental status. Patient [...] Rcere, L temp Colon polyp Endometriosis Epilepsy ([facility]) Fatigue Hemiparesis of left nondominant side as late effect of cerebral infarction ([facility]) 02/08/2021 Hypothyroid tsh> 150 off med Lung nodule Mild depression Polyneuropathy 07/2012 of legs by emg/nct Stroke ([facility]) 09/2019 right MCA PAST SURGICAL HISTORY [...] leg agai (more content not included)... [facility] EKGon 01-09-2025 Electrocardiogram Ventricular Rate : 8 6 BPM QRS Duration : 54 ms Q-T Interval : 360 ms QTC Calculation(Bazett) : 430 ms Calculated R [place] : -16 degrees Calculated T [place] : 33 degrees ACCELERATED JUNCTIONAL RHYTHM NONSPECIFIC ST AND T WAVE ABNORMALITY ABNORMAL ECG WHEN COMPARED WITH ECG OF 09-Jan-2025 14:39, JUNCTIONAL RHYTHM HAS REPLACED SINUS RHYTHM Confirmed by PINO DONALDSON MD ([id number]) on 01/09/2025 4:36:11 PM NAME : ELBA DIAZ PID : [id number] : 1950 Gender : Female Race : ORD : Procedure Date : Jan 09 2025 16:24:24 Edit Date : Jan 09 2025 16:36:15 Diagnosis: ACCELERATED JUNCTIONAL RHYTHM NONSPECIFIC ST AND T WAVE ABNORMALITY ABNORMAL ECG WHEN COMPARED WITH ECG OF 09-Jan-2025 14:39, JUNCTIONAL RHYTHM HAS REPLACED SINUS RHYTHM Confirmed by PINO DONALDSON MD ([id number]) on 01/09/2025 4:36:11 PM Test Reason : Location : 4 : [facility] Overread By : PINO DONALDSON MD Edited By : PINO DONALDSON MD Referred By : , Acquired by : COLE PATTON [facility] Electrocardiogram Ventricular Rate : 9 0 BPM Atrial Rate : 90 BPM P-R Interval : 120 ms QRS Duration : 64 ms Q-T Interval : 364 ms QTC Calculation(Bazett) : 445 ms Calculated P [place] : 22 degrees Calculated R [place] : -11 degrees Calculated T [place] : 36 degrees NORMAL SINUS RHYTHM LOW VOLTAGE QRS BORDERLINE ECG WHEN COMPARED WITH ECG OF 14-Dec-2024 13:46, NO SIGNIFICANT CHANGE WAS FOUND Confirmed by PINO DONALDSON MD ([id number]) on 01/09/2025 2:57:29 PM NAME : ELBA DIAZ PID : [id number] : 1950 Gender : Female Race : ORD : Procedure Date : Jan 09 2025 14:39:21 Edit Date : Jan 09 2025 14:57:32 Diagnosis: NORMAL SINUS RHYTHM LOW VOLTAGE QRS BORDERLINE ECG WHEN COMPARED WITH ECG OF 14-Dec-2024 13:46, NO SIGNIFICANT CHANGE WAS FOUND Confirmed by PINO DONALDSON MD ([id number]) on 01/09/2025 2:57:29 PM Test Reason : Location : 4 : [facility] Overread By : PINO DONALDSON MD Edited By : PINO DONALDSON MD Referred By : , Acquired by : KEV GUZMAN [facility] HIGH SENSITIVITY TROPONIN To n 01-09-2025 Troponin T.cardiac High sensitivity method [Mass/Vol] 21 ng/L High <12 [facility] Comment on above: Order Comment: Speci men Type: BLOOD SPECIMEN Ordering Facility: [facility] Address: [address] [place] [address] Performed By: #### 3 0471-7 #### [facility] CLIA [id number] [address] [place] [address] [place] Troponin T.cardiac High sensitivity method [Mass/Vol] 21 ng/L High <12 [facility] Comment on above: Order Comment: Vikrami men Type: BLOOD SPECIMEN Ordering Facility: [facility] Address: [address] [place] [address] Performed By: #### 2 4321-2, 19182-6, 8156-3 #### [facility] [place] [id number] [address] [place] [address] [place] HISTORY PHYSICALon HISTORY PHYSICAL HNO ID: [id number] Author: ELIA CARRENO II, MD Service: Hospital Medicine Author Type: Physician Type: H&P Filed: 01/10/2025 02:59 Note Text: DEPARTMENT OF HOSPITAL MEDICINE HISTORY AND PHYSICAL EXAM SERVICE DATE: 01/09/2025 SERVICE TIME: 9:44 PM Primary Care Physician: No primary care provider on file. NIGHT AND WEEKEND COVERAGE: From 7am - 7pm, please call Sound attending After 7pm, please call cross cover pager #[phone] ==== ASSESSMENT AND PLAN: 1) AMS - [...] protein: Neg (more content not included)... [facility] Magnesium SerPl-mCncon 01-09 Magnesium [Mass/Vol] 1.8 mg/dL Normal 1.7-2.3 [facility] Comment on above: Order Comment: Speci men Type: BLOOD SPECIMEN Ordering Facility: [facility] Address: [address] [place] [address] Performed By: #### 2 4321-2, , 3 #### [facility] CLIA [id number] [address] [place] Urinalysis complete panel (U )on 01-09-2025 Bilirubin Ql (U) Negative Normal Negative [facility] Comment on above: Order Comment: Speci men Type: BLOOD SPECIMEN Ordering Facility: [facility] Address: [address] [place] [address] Performed By: #### 2 4321-2, , 3 #### [facility] CLIA [id number] [address] [place] Clarity (Unsp spec) Clear Normal Clear [facility] Comment on above: Order Comment: Speci men Type: BLOOD SPECIMEN Ordering Facility: [facility] Address: [address] [place] [address] Performed By: #### 2 4321-2, , 3 #### [facility] CLIA [id number] [address] [place] Color (U) Light Yellow Normal yellow [facility] Comment on above: Order Comment: Speci men Type: BLOOD SPECIMEN Ordering Facility: [facility] Address: [address] [place] [address] Performed By: #### 2 4321-2, , 3015-3 #### [facility] CLIA [id number] [address] [place] Epithelial cells LM.HPF (Urine sed) [#/Area] Few Normal [facility] Comment on above: Order Comment: Speci men Type: BLOOD SPECIMEN Ordering Facility: [facility] Address: [address] [place] [address] Performed By: #### 2 4321-2, , 3 #### [facility] CLIA [id number] [address] Glucose Test strip (U) [Mass/Vol] Negative Normal Trace, Negative [facility] Comment on above: Order Comment: Speci men Type: BLOOD SPECIMEN Ordering Facility: [facility] Address: [address] [place] [address] Performed By: #### 2 4321-2, , 3015-12 #### [facility] CLIA [id number] [address] Hemoglobin Ql (U) Negative Normal Negative, Trace [facility] Comment on above: Order Comment: Speci men Type: BLOOD SPECIMEN Ordering Facility: [facility] Address: [address] [place] [address] Performed By: #### 2 4321-2, , 3 #### [facility] CLIA [id number] [address] Ketones Ql (U) Negative Normal Negative, Trace [facility] Comment on above: Order Comment: Speci men Type: BLOOD SPECIMEN Ordering Facility: [facility] Address: [address] [place] [address] Performed By: #### 2 4321-2, , 3 #### [facility] CLIA [id number] [address] Leukocyte esterase Test strip Ql (U) 25 Chong/uL Normal Negative, 25 Chong/uL [facility] Comment on above: Order Comment: Speci men Type: BLOOD SPECIMEN Ordering Facility: [facility] Address: [address] [place] [address] Performed By: #### 2 4321-2, , 3 #### [facility] CLIA [id number] [address] [place] Nitrite Ql (U) Negative Normal Negative [facility] Comment on above: Order Comment: Speci men Type: BLOOD SPECIMEN Ordering Facility: [facility] Address: [address] [place] [address] Performed By: #### 2 4321-2, , 3 #### [facility] CLIA [id number] [address] [place] pH (U) 6.5 [pH] Normal 5.0-8.0 [facility] Comment on above: Order Comment: Speci men Type: BLOOD SPECIMEN Ordering Facility: [facility] Address: [address] [place] [address] Performed By: #### 2 1-2, , 3015-12 #### [facility] CLIA [id number] [address] Protein (U) [Mass/Vol] Negative Normal Trace , Negative [facility] Comment on above: Order Comment: Speci men Type: BLOOD SPECIMEN Ordering Facility: [facility] Address: [address] [place] [address] Performed By: #### 2 4321-2, , 3015-12 #### [facility] CLIA [id number] [address] RBC LM.HPF (Urine sed) [#/Area] 0-3 /HPF Normal 0-3 /HPF [facility] Comment on above: Order Comment: Speci men Type: BLOOD SPECIMEN Ordering Facility: [facility] Address: [address] [place] [address] Performed By: #### 2 4321-2, , 3 #### [facility] CLIA [id number] [address] [place] Specific gravity (U) [Rel density] 1.027 Normal 1.005-1.030 [facility] Comment on above: Order Comment: Speci men Type: BLOOD SPECIMEN Ordering Facility: [facility] Address: [address] [place], [place] [address] Performed By: #### 2 4321-2, 37150-7, 3015-3 #### [facility] CLIA [id number] [address] Urobilinogen Ql (U) Normal Normal Normal [facility] Comment on above: Order Comment: Speci men Type: BLOOD SPECIMEN Ordering Facility: [facility] Address: [address] [place] [address] Performed By: #### 2 4321-2, , 3015-3 #### [facility] CLIA [id number] [address] [facility] WBC LM.HPF (Urine sed) [#/Area] 0-5 /HPF Normal 0-5 /HPF [facility] Comment on above: Order Comment: Speci men Type: BLOOD SPECIMEN Ordering Facility: [facility] Address: [address] [place] [address] Performed By: #### 2 4321-2, , 3015-3 #### [facility] CLIA [id number] [address] [place] XR CHEST 1V FRONTALon [...] Other: . IMPRESSION: No acute radiographic abnormality. Reinforcing Rod Layer: ALEXANDRO Transcribe Date/Time: Jan 09 2025 2:51P Dictated by : HAMILTON LERMA MD This examination was interpreted and the report reviewed and electronically signed by: HAMILTON LERMA MD on Jan 09 2025 2:52PM EST [id number] [facility] 36on 01-01-2025 36 Pt is added on the w ait list [facility] 36 Name of caller: Elmer bermeo Contact phone number: [phone] Relationship to Patient: [facility] Provider: New Patient/Dr. Oswald Practice: Neurology Chief [...] business hours to return their call: N/A [facility] Absolute lymphocyte countOrd ered By: Robb Barnes on 12-31-2024 Lymphocytes Auto (Unsp spec) [#/Vol] 1.49 10*3/uL 0.83-4.51 [facility] Absolute neutrophil countOrd ered By: Robb Barnes on 12-31-2024 Neutrophils (Bld) [#/Vol] 5.3 10*3/uL 2.0-7.7 [facility] Automated lymphocyte count a s percentage of total leukocytesOrdered By: Robb Barnes on 12-31-2024 Lymphocytes/100 WBC Auto (Unsp spec) 19.3 % 19-41 [facility] Basophil percentageOrdered B y: Robb Barnes on 12-31-2024 Basophils/100 WBC (Bld) 0.4 % 0-1 [facility] Eosinophil percentageOrdered By: Robb Barnes on 12-31-2024 Eosinophils/100 WBC (Bld) 1.9 % 0-5 [facility] Erythrocyte distribution wid th (RBC) [Ratio]Ordered By: Robb Barnes on 12-31-2024 Erythrocyte distribution width (RBC) [Entitic vol] 47.8 fL High 35.1-43.9 [facility] Erythrocyte distribution wid th ratioOrdered By: Robb Barnes on 12-31-2024 Erythrocyte distribution width (RBC) [Ratio] 13.1 % 11.6-14.6 [facility] Erythrocyte distribution wid th standard deviationOrdered By: Robb Barnes on 12-31-2024 Erythrocyte distribution width (RBC) [Ratio] 47.8 fl High 35.1-43.9 [facility] Hematocrit Auto (Bld) [Volum e fraction]Ordered By: Robb Barnes on 12-31-2024 Hematocrit (Bld) [Volume fraction] 36.2 % Low 37-47 [facility] Hemoglobin measurementOrdere d By: Robb Barnes on 12-31-2024 Hemoglobin (Bld) [Mass/Vol] 11.7 g/dL Low 12.0-15.0 [facility] Immature granulocytes/100 WB C Auto (Bld)Ordered By: Robb Barnes on 12-31-2024 Immature granulocytes/100 WBC (Bld) 0.400 % 0.0-0.9 [facility] Comment on above: IG% - Immature Granu locytes (promyelocytes, myelocytes and metamyelocytes) > 1% indicates that a LEFT SHIFT is Present. Lymphocytes Auto (Unsp spec) [#/Vol]Ordered By: Robb Barnes on 12-31-2024 Lymphocytes (Bld) [#/Vol] 1.49 10*3/uL 0.83-4.51 [facility] Lymphocytes/100 WBC Auto (Un sp spec)Ordered By: Robb Barnes on 12-31-2024 Lymphocytes/100 WBC (Bld) 19.3 % 19-41 [facility] MCV (mean corpuscular volume ) determinationOrdered By: Robb Barnes on 12-31-2024 MCV (RBC) [Entitic vol] 100.0 fL High 81-99 [facility] Mean corpuscular hemoglobin (MCH) determinationOrdered By: Robb Barnes on 12-31-2024 MCH (RBC) [Entitic mass] 32.3 pg High 27.0-32.0 [facility] Mean corpuscular hemoglobin concentration (MCHC) determinationOrdered By: Robb Barnes on 12-31-2024 MCHC (RBC) [Mass/Vol] 32.3 g/dL 32-36 [facility] Mean platelet volume determi nationOrdered By: Robb Barnes on 12-31-2024 Platelet mean volume (Bld) [Entitic vol] 8.8 fL 6.2-12.0 [facility] Monocyte percentageOrdered B y: Robb Barnes on 12-31-2024 Monocytes/100 WBC (Bld) 8.8 % 0-10 [facility] Neutrophil percentageOrdered By: Robb Barnes on 12-31-2024 Neutrophils/100 WBC (Bld) 69.2 % 47-70 [facility] Nucleated red blood cell per centageOrdered By: Robb Barnes on 12-31-2024 Nucleated RBC/100 WBC (Bld) [Ratio] 0 % 0-5 [facility] Platelet countOrdered By: Ramila Barnes on 12-31-2024 Platelets (Bld) [#/Vol] 152 10*3/uL 150-450 [facility] RBC Auto (Bld) [#/Vol]Ordere d By: Robb Barnes on 12-31-2024 RBC (Bld) [#/Vol] 3.62 10*6/uL Low 4.2-5.4 [facility] Serum or plasma valproate me asurement (mass/volume)Ordered By: Robb Barnes on 12-31-2024 Valproate [Mass/Vol] 36 ug/mL Low 50-100 [facility] Comment on above: Valproic Acid concen trations >100 ug/mL are potentially toxic. Valproate [Mass/Vol]Ordered By: Robb Barnes on 12-31-2024 Valproic Acid (Depakene) Level 36 ug/mL Low 50-100 [facility] Comment on above: Valproic Acid concen trations >100 ug/mL are potentially toxic. White blood cell (WBC) count Ordered By: Robb Barnes on 12-31-2024 WBC (Bld) [#/Vol] 7.7 10*3/uL 4.4-11.0 [facility] Bilirubin Test strip Ql (U)O rdered By: Robb Barnes on 12-30-2024 Bilirubin Ql (U) Negative Negative [facility] Glucose Ql (U)Ordered By: Ramila Barnes on 12-30-2024 Urine Glucose (UA) Normal mg/dl Normal [facility] Ketones Test strip Ql (U)Ord ered By: Robb Barnes on 12-30-2024 Ketones Ql (U) 15 mg/dl High Negative [facility] Nitrite Test strip Ql (U)Ord ered By: Robb Barnes on 12-30-2024 Nitrite Ql (U) Positive High Negative [facility] Protein Test strip Ql (U)Ord ered By: Robb Barnes on 12-30-2024 Protein Ql (U) 30 mg/dl High Negative [facility] Urine blood detectionOrdered By: Robb Barnes on 12-30-2024 Urine Occult Blood 10 /ul High Negative [facility] Urine clarityOrdered By: Renan Barnes on 12-30-2024 Clarity (U) Clear Clear [facility] Urine color determinationOrd ered By: Robb Barnes on 12-30-2024 Color (U) Yellow Yellow [facility] Urine cultureOrdered By: Renan Barnes on 12-30-2024 Bacteria identified Cx Nom (U) ESBL Escherichia coli Abnormal [facility] Urine glucose detectionOrder ed By: Robb Barnes on 12-30-2024 Glucose Ql (U) Normal mg/dl Normal [facility] Urine leukocyte esterase det ection by dipstickOrdered By: Robb Barnes on 12-30-2024 Leukocyte esterase Test strip Ql (U) 100 /ul High Negative [facility] Urine pHOrdered By: Robb huerta on 12-30-2024 pH (U) 6.0 [pH] 5.0 - 8.0 [facility] Urine specific gravity measu rementOrdered By: Robb Barnes on 12-30-2024 Specific gravity (U) [Rel density] 1.020 1.002-1.030 [facility] Urine urobilinogen measureme ntOrdered By: Robb Barnes on 12-30-2024 Urobilinogen Ql (U) Normal mg/dl Normal [facility] Urobilinogen Ql (U)Ordered B y: Robb Barnes on 12-30-2024 Urine Urobilinogen Normal mg/dl Normal [facility] Absolute lymphocyte countOrd ered By: [facility] on 12-24-2024 Lymphocytes Auto (Unsp spec) [#/Vol] 1.70 10*3/uL 0.83-4.51 [facility] Absolute neutrophil countOrd ered By: [facility] on 12-24-2024 Neutrophils (Bld) [#/Vol] 4.3 10*3/uL 2.0-7.7 [facility] Anion gap in Serum or Plasma Ordered By: [facility] on 12-24-2024 Anion gap [Moles/Vol] 12 mmol/L 5-15 [facility] Automated lymphocyte count a s percentage of total leukocytesOrdered By: [facility] on 12-24-2024 Lymphocytes/100 WBC Auto (Unsp spec) 24.6 % 19-41 [facility] BUN/creatinine ratioOrdered By: [facility] on 12-24-2024 Urea nitrogen/Creatinine [Mass ratio] 61.9 mg/mg High 10-20 [facility] Basophil percentageOrdered B y: [facility] on 12-24-2024 Basophils/100 WBC (Bld) 0.4 % 0-1 [facility] Bilirubin directOrdered By: [facility] on 12-24-2024 Bilirubin.direct [Mass/Vol] mg/dL 0.00-0.30 [facility] Comment on above: Hemolysis present, R esults could be affected. Bilirubin, totalOrdered By: [facility] on 12-24-2024 Bilirubin [Mass/Vol] 0.17 mg/dL 0.00-1.30 [facility] Bilirubin.direct [Mass/Vol]O rdered By: [facility] on 12-24-2024 Direct Bilirubin < 0.08 mg/dL 0.00-0.30 [facility] Comment on above: Hemolysis present, R esults could be affected. Carbon dioxide, total [Moles /volume] in Central venous bloodOrdered By: [facility] on 12-24-2024 CO2 [Moles/Vol] 20.1 mmol/L Low 21.0-32.0 [facility] Chloride assayOrdered By: Akash [facility] on 12-24-2024 Chloride [Moles/Vol] 105 mmol/L 98-108 [facility] Eosinophil percentageOrdered By: [facility] on 12-24-2024 Eosinophils/100 WBC (Bld) 2.9 % 0-5 [facility] Erythrocyte distribution wid th (RBC) [Ratio]Ordered By: [facility] on 12-24-2024 Erythrocyte distribution width (RBC) [Entitic vol] 44.6 fL High 35.1-43.9 [facility] Erythrocyte distribution wid th ratioOrdered By: [facility] on 12-24-2024 Erythrocyte distribution width (RBC) [Ratio] 12.3 % 11.6-14.6 [facility] Erythrocyte distribution wid th standard deviationOrdered By: [facility] on 12-24-2024 Erythrocyte distribution width (RBC) [Ratio] 44.6 fl High 35.1-43.9 [facility] GFR/1.73 sq M.predicted juwan g non-blacks MDRD (S/P/Bld) [Vol rate/Area]Ordered By: [facility] on 12-24-2024 Estimated GFR (MDRD) Non-Af Amer 109 >60 [facility] Comment on above: mL/min/1.73m2 CKD-EP I Creatinine Equation (2020) Glomerular filtration rate ( GFR) estimation/1.73 sq m using serum, plasma, or whole bOrdered By: [facility] on 12-24-2024 GFR/1.73 sq M.predicted among non-blacks MDRD (S/P/Bld) [Vol rate/Area] 109 mL/min/{1.73_m2} >60 [facility] Comment on above: mL/min/1.73m2 CKD-EP I Creatinine Equation (2020) Hematocrit Auto (Bld) [Volum e fraction]Ordered By: [facility] on 12-24-2024 Hematocrit (Bld) [Volume fraction] 36.0 % Low 37-47 [facility] Hemoglobin measurementOrdere d By: [facility] on 12-24-2024 Hemoglobin (Bld) [Mass/Vol] 12.1 g/dL 12.0-15.0 [facility] Immature granulocytes/100 WB C Auto (Bld)Ordered By: [facility] on 12-24-2024 Immature granulocytes/100 WBC (Bld) 0.600 % 0.0-0.9 [facility] Comment on above: IG% - Immature Granu locytes (promyelocytes, myelocytes and metamyelocytes) > 1% indicates that a LEFT SHIFT is Present. Laboratory - Chemistry and C hemistry - challengeOrdered By: [facility] on 12-24-2024 AST [Catalytic activity/Vol] 31 U/L <32 [facility] Comment on above: Hemolysis present, R esults could be affected. Lymphocytes Auto (Unsp spec) [#/Vol]Ordered By: [facility] on 12-24-2024 Lymphocytes (Bld) [#/Vol] 1.70 10*3/uL 0.83-4.51 [facility] Lymphocytes/100 WBC Auto (Un sp spec)Ordered By: [facility] on 12-24-2024 Lymphocytes/100 WBC (Bld) 24.6 % 19-41 [facility] MCV (mean corpuscular volume ) determinationOrdered By: [facility] on 12-24-2024 MCV (RBC) [Entitic vol] 98.6 fL 81-99 [facility] Mean corpuscular hemoglobin (MCH) determinationOrdered By: [facility] on 12-24-2024 MCH (RBC) [Entitic mass] 33.2 pg High 27.0-32.0 [facility] Mean corpuscular hemoglobin concentration (MCHC) determinationOrdered By: [facility] on 12-24-2024 MCHC (RBC) [Mass/Vol] 33.6 g/dL 32-36 [facility] Mean platelet volume determi nationOrdered By: [facility] on 12-24-2024 Platelet mean volume (Bld) [Entitic vol] 8.8 fL 6.2-12.0 [facility] Monocyte percentageOrdered B y: [facility] on 12-24-2024 Monocytes/100 WBC (Bld) 8.7 % 0-10 [facility] Neutrophil percentageOrdered By: [facility] on 12-24-2024 Neutrophils/100 WBC (Bld) 62.8 % 47-70 [facility] Nucleated red blood cell per centageOrdered By: [facility] on 12-24-2024 Nucleated RBC/100 WBC (Bld) [Ratio] 0 % 0-5 [facility] Platelet countOrdered By: Akash [facility] on 12-24-2024 Platelets (Bld) [#/Vol] 172 10*3/uL 150-450 [facility] Potassium (Unsp spec) [Mass/ Vol]Ordered By: [facility] on 12-24-2024 Potassium [Moles/Vol] 4.4 mmol/L 3.3-5.1 [facility] Comment on above: Hemolysis present, R esults could be affected. Potassium measurement (mass/ volume)Ordered By: [facility] on 12-24-2024 Potassium (Unsp spec) [Mass/Vol] 4.4 mmol/L 3.3-5.1 [facility] Comment on above: Hemolysis present, R esults could be affected. RBC Auto (Bld) [#/Vol]Ordere d By: [facility] on 12-24-2024 RBC (Bld) [#/Vol] 3.65 10*6/uL Low 4.2-5.4 [facility] Serum creatinine measurement (mass/volume)Ordered By: [facility] on 12-24-2024 Creatinine [Mass/Vol] 0.33 mg/dL Low 0.70-1.20 [facility] Serum globulin measurementOr dered By: [facility] on 12-24-2024 Globulin (S) [Mass/Vol] 3.1 g/dL 2.2-4.2 [facility] Serum glucose measurement (m ass/volume)Ordered By: [facility] on 12-24-2024 Glucose [Mass/Vol] 72 mg/dL 70-99 [facility] Serum or plasma alanine timmons otransferase (ALT) measurementOrdered By: [facility] on 12-24-2024 ALT [Catalytic activity/Vol] 7 U/L <35 [facility] Serum or plasma albumin claudette urement (mass/volume)Ordered By: [facility] on 12-24-2024 Albumin [Mass/Vol] 2.8 g/dL Low 3.4-4.8 [facility] Serum or plasma alkaline karson sphatase measurementOrdered By: [facility] on 12-24-2024 ALP [Catalytic activity/Vol] 76 U/L 35-104 [facility] Serum or plasma calcium claudette urement (mass/volume)Ordered By: [facility] on 12-24-2024 Calcium [Mass/Vol] 9.0 mg/dL 7.6-11.0 [facility] Serum or plasma urea nitroge n measurement (mass/volume)Ordered By: [facility] on 12-24-2024 Urea nitrogen [Mass/Vol] 21 mg/dL High 4-19 [facility] Sodium levelOrdered By: [facility] on 12-24-2024 Sodium [Moles/Vol] 136 mmol/L 133-145 [facility] Total proteinOrdered By: [facility] on 12-24-2024 Protein [Mass/Vol] 5.9 g/dL 5.9-8.4 [facility] White blood cell (WBC) count Ordered By: [facility] on 12-24-2024 WBC (Bld) [#/Vol] 6.9 10*3/uL 4.4-11.0 [facility] Bilirubin Test strip Ql (U)O rdered By: Robb Barnes on 12-22-2024 Bilirubin Ql (U) Negative Negative [facility] Glucose Ql (U)Ordered By: Ramila Barnes on 12-22-2024 Urine Glucose (UA) Normal mg/dl Normal [facility] Ketones Test strip Ql (U)Ord ered By: Robb Barnes on 12-22-2024 Ketones Ql (U) 15 mg/dl High Negative [facility] Nitrite Test strip Ql (U)Ord ered By: Robb Barnes on 12-22-2024 Nitrite Ql (U) Negative Negative [facility] Protein Test strip Ql (U)Ord ered By: Robb Barnes on 12-22-2024 Protein Ql (U) 30 mg/dl High Negative [facility] Urine blood detectionOrdered By: Robb Barnes on 12-22-2024 Urine Occult Blood Negative Negative [facility] Urine clarityOrdered By: Renan Barnes on 12-22-2024 Clarity (U) Clear Clear [facility] Urine color determinationOrd ered By: Robb Barnes on 12-22-2024 Color (U) Yellow Yellow [facility] Urine cultureOrdered By: Renan Barnes on 12-22-2024 Bacteria identified Cx Nom (U) GNR lactose chancellor Abnormal [facility] Urine glucose detectionOrder ed By: Robb Barnes on 12-22-2024 Glucose Ql (U) Normal mg/dl Normal [facility] Urine leukocyte esterase det ection by dipstickOrdered By: Robb Barnes on 12-22-2024 Leukocyte esterase Test strip Ql (U) Negative Negative [facility] Urine pHOrdered By: Robb huerta on 12-22-2024 pH (U) 6.0 [pH] 5.0 - 8.0 [facility] Urine specific gravity measu rementOrdered By: Robb Barnes on 12-22-2024 Specific gravity (U) [Rel density] 1.020 1.002-1.030 [facility] Urine urobilinogen measureme ntOrdered By: Robb Barnes on 12-22-2024 Urobilinogen Ql (U) Normal mg/dl Normal [facility] Urobilinogen Ql (U)Ordered B y: Robb Barnes on 12-22-2024 Urine Urobilinogen Normal mg/dl Normal [facility] CNDSon 12-18-2024 CNDS HNO ID: [id number] Author: DANILO HELMS MD Service: Hospital Medicine [...] Attending Provider: Danilo Helms MD Primary Service: [place] MILI MILLER MY CONDITION AT DISCHARGE: Stable REASON I WAS IN THE HOSPITAL: Change in mental status SUMMARY OF WHAT HAPPENED WHILE I WAS IN THE HOSPITAL: 74-year-old female with a history of cerebrovascular disease and debilitating stroke leaving the patient essentially bedbound. Patient resides at the group home. Admitted to the hospital on account of change in mental status. Suspected to be secondary to urinary tract infection and possibly so. Found to be dehydrated as well. Treated with antibiotics and IV fluids. Mental status has improved. She is essentially back to baseline. Able to return back to group home. OTHER PROBLEMS/DIAGNOSIS: Principal Problem: AMS (altered mental [...] No pending results Discharge Disposition Discharge Disposition: [facility] Additional Provider to Provider Information: No notes on file Exogenous Class 1 Obesity Treatment Team: Attending Provider: Danilo Helms MD Primary Service: BANG MILLER Transitions of Care Critical Issues: None LABS AND PROCEDURES PENDING AT DISCHARGE: No pending results. FOLLOW-UP APPOINTMENTS ALREADY SCHEDULED WITH A [facility] PROVIDER: No future appointments. ALLERGIES Allergen Reactions [...] Stay (d) (more content not included)... Normal [facility] Basic metabolic 2000 panelon 12-17-2024 Anion gap [Moles/Vol] 11 mmol/L Normal 8-15 [facility] Comment on above: Order Comment: Specjey montilla Type: BLOOD SPECIMEN Ordering Facility: [facility] Address: [address] [id number] Performed By: #### 2 4321-2, 75651-3, 3016-3 #### [facility] CLIA [id number] [address] [place] [address] [place] Calcium [Mass/Vol] 8.6 mg/dL Normal 8.5-10.2 [facility] Comment on above: Order Comment: Vicky montilla Type: BLOOD SPECIMEN Ordering Facility: [facility] Address: [address] [id number] Performed By: #### 2 4321-2, 20733-6, 6-3 #### [facility] CLIA [id number] [address] [place] [address] [place] Chloride [Moles/Vol] 109 mmol/L High 98-107 [facility] Comment on above: Order Comment: Speci men Type: BLOOD SPECIMEN Ordering Facility: [facility] Address: [address] [place] [address] Performed By: #### 2 4321-2, , 6-3 #### [facility] CLIA [id number] [address] [place] CO2 [Moles/Vol] 22 mmol/L Normal 22-30 [facility] Comment on above: Order Comment: Speci men Type: BLOOD SPECIMEN Ordering Facility: [facility] Address: [address] [place] [address] Performed By: #### 2 4321-2, , 3015-3 #### [facility] CLIA [id number] [address] [place] Creatinine [Mass/Vol] 0.42 mg/dL Low 0.58-0.96 [facility] Comment on above: Order Comment: Speci men Type: BLOOD SPECIMEN Ordering Facility: [facility] Address: [address] [place] [address] Performed By: #### 2 4321-2, , 6-3 #### [facility] CLIA [id number] [address] Creatinine and Glomerular filtration rate.predicted panel (S/P/Bld) 103 mL/min/1.73m??? Normal >=60 [facility] Comment on above: Order Comment: Speci men Type: BLOOD SPECIMEN Ordering Facility: [facility] Address: [address] [place] [address] Result Comment: Ccey mated Glomerular Filtration Rate (eGFR) is calculated [...] actual GFR. Performed By: #### 2 4321-2, 20246-1, 3 #### [facility] CLIA [id number] 1 [place] [address] [place] Glucose [Mass/Vol] 102 mg/dL High 74-99 [facility] Comment on above: Order Comment: Speci men Type: BLOOD SPECIMEN Ordering Facility: [facility] Address: [address] [place] [address] Result Comment: The [place] Diabetes Association (ADA) provides guidance for cutoff [...] Standards of Medical Care in Diabetes 2016, [place] [employer]. Diabetes Care. 2016.39(Suppl 1). Performed By: #### 2 4321-2, , 3015-12 #### [facility] CLIA [id number] 1 [place] [address] [place] Potassium [Moles/Vol] 3.9 mmol/L Normal 3.7-5.1 [facility] Comment on above: Order Comment: Speci men Type: BLOOD SPECIMEN Ordering Facility: [facility] Address: [address] [place] [address] Performed By: #### 2 4321-2, , 3 #### [facility] CLIA [id number] 1 [place] [address] [place] Sodium [Moles/Vol] 142 mmol/L Normal 136-144 [facility] Comment on above: Order Comment: Speci men Type: BLOOD SPECIMEN Ordering Facility: [facility] Address: [address] [place] [address] Performed By: #### 2 4321-2, 78198-3, 3 #### [facility] CLIA [id number] [address] OF [facility] Urea nitrogen [Mass/Vol] 4 mg/dL Low 7-21 [facility] Comment on above: Order Comment: Speci men Type: BLOOD SPECIMEN Ordering Facility: [facility] Address: [address] [place], [place] [address] Performed By: #### 2 4321-2, , 3015-12 #### [facility] CLIA [id number] [address] CONSULT PROGon 12-17-2024 CONSULT PROG HNO ID: [id number] Author: TRINITY BOJORQUEZ APRN.SLIPMAN Service: Wound/Ostomy Author Type: Nurse Practitioner Type: Consult Progress Note Filed: 12/17/2024 12:37 Note Text: WOUND CARE SERVICE CONSULT BLIND TEACHER NOTE SERVICE DATE: 12/17/2024 SERVICE TIME: 1020 [...] who is seen today with Shelly Polk Wound/platen press operator, and presented to hospital with complaints of [...] 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 Normal [facility] NUTRITIONon 12-17-2024 NUTRITION HNO ID: [id number] Author: EMMANUEL AMIN RD Service: Nutrition Therapy [...] 49.9 kg (110 lb) Dosing Weight Type: Lane body weight Estimated kilocalorie needs: 9509-3892 Calorie Calculation Method: 25-30 kcals/kg, Lane Body Weight Estimated protein needs (grams): 50-60 Grams protein determined by: 1.0 - 1.2 g/kg, Lane body weight Diet Orders (From admission, onward) [...] - patient reports gain since admission to [facility] Weight Change: Weight gain Last Wt 12/15/24 [...] December 17, 2024 TIME: 9:06 AM Normal [facility] THERAPY NTon 12-17-2024 THERAPY NT HNO ID: [id number] Author: DINA HIDALGO CCC-MANAGER COSMETICS Service: Speech/Swallow Author Type: Speech Language Pathologist Type: Therapy (PT/OT/Speech/Resp) Filed: 12/17/2024 11:57 Note Text: Speech Therapy Speech Evaluation SERVICE DATE: 12/17/2024 SERVICE TIME: 1115 to 1130 ROOM: [place] [address] IMPRESSION Functional without limitations in: Speech, Language, [...] Required Assistance Patient Lives With: Facility [facility] ([facility]) Assistance Available: 24 Hour Prior Swallowing Function/Diet Textures: Regular Consistency, Thin Liquids IDDSI Level 0 SUBJECTIVE The patient is awake, talking in full logical sentences. THERAPY DIAGNOSIS No Skilled Need TREATMENT INTERVENTIONS Speech Language Eval (48866) Skilled Treatment Time (minutes): 15 $ Speech Language Eval (06486) Billed Units: 1 unit TRAINING AND EDUCATION [...] response, or unable to respond Stimulus Response/Score [facility] 12/[address] 12/22 Name of [...] Care Developed with: Patient SIGNATURE: Dina Hidalgo CCC-MANAGER COSMETICS PATIENT NAME: Elba Diaz DATE: December 17, 2024 TIME: 11:55 AM Normal [facility] CBC W Auto Differential pane l (Bld)on 12-16-2024 Basophils (Bld) [#/Vol] 10*3/uL Normal <0.11 [facility] Comment on above: Order Comment: Vicky montilla Type: BLOOD SPECIMENOrdering Facility: [facility] Address: [address] [place] [address] Performed By: #### 5 7021-8 ####[facility]IA [id number] [place] [address] [place] Basophils/100 WBC (Bld) 0.3 % Normal [facility] Comment on above: Order Comment: Vicky montilla Type: BLOOD SPECIMENOrdering Facility: [facility] Address: [address] [place] [address] Performed By: #### 5 7021-8 ####[facility]IA [id number] [address] Differential cell count method Nom (Bld) Auto Normal [facility] Comment on above: Order Comment: Speci men Type: BLOOD SPECIMENOrdering Facility: [facility] Address: [address] [place] [address] Performed By: #### 5 7021-8 ####[facility]IA [id number] [address] Eosinophils (Bld) [#/Vol] 0.13 10*3/uL Normal <0.46 [facility] Comment on above: Order Comment: Speci men Type: BLOOD SPECIMENOrdering Facility: [facility] Address: [address] [place] [address] Performed By: #### 5 7021-8 ####[facility]IA [id number] [address] Eosinophils/100 WBC (Bld) 2.1 % Normal [facility] Comment on above: Order Comment: Speci men Type: BLOOD SPECIMENOrdering Facility: [facility] Address: [address] [place] [address] Performed By: #### 5 7021-8 ####[facility]IA [id number] [address] Erythrocyte distribution width (RBC) [Ratio] 12.2 % Normal 11.5-15.0 [facility] Comment on above: Order Comment: Speci men Type: BLOOD SPECIMENOrdering Facility: [facility] Address: [address] [place] [address] Performed By: #### 5 7021-8 ####[facility]ORYCLIA [id number] [address] Hematocrit (Bld) [Volume fraction] 35.7 % Low 36.0-46.0 [facility] Comment on above: Order Comment: Speci men Type: BLOOD SPECIMENOrdering Facility: [facility] Address: [address] [place] [address] Performed By: #### 5 7021-8 ####[facility] [id number] [place] [address] [place] Hemoglobin (Bld) [Mass/Vol] 12.0 g/dL Normal 11.5-15.5 [facility] Comment on above: Order Comment: Speci men Type: BLOOD SPECIMENOrdering Facility: [facility] Address: [address] [place] [address] Performed By: #### 5 7021-8 ####[facility]IA [id number] [place] [address] [place] Immature granulocytes (Bld) [#/Vol] 0.04 10*3/uL Normal <0.10 [facility] Comment on above: Order Comment: Speci men Type: BLOOD SPECIMENOrdering Facility: [facility] Address: [address] [place] [address] Performed By: #### 5 7021-8 ####[facility]ORYCLIA [id number] [address] [place] Immature granulocytes/100 WBC (Bld) 0.6 % Normal [facility] Comment on above: Order Comment: Speci men Type: BLOOD SPECIMENOrdering Facility: [facility] Address: [address] [place] [address] Performed By: #### 5 7021-8 ####[facility]ORYCLIA [id number] [address] [place] Lymphocytes (Bld) [#/Vol] 1.21 10*3/uL Normal 1.00-4.00 [facility] Comment on above: Order Comment: Speci men Type: BLOOD SPECIMENOrdering Facility: [facility] Address: [address] [place] [address] Performed By: #### 5 7021-8 ####[facility]ORYCLIA [id number] [address] [place] Lymphocytes/100 WBC (Bld) 19.2 % Normal [facility] Comment on above: Order Comment: Speci men Type: BLOOD SPECIMENOrdering Facility: [facility] Address: [address] [place] [address] Performed By: #### 5 7021-8 ####[facility]ORYCLIA [id number] [address] MCH (RBC) [Entitic mass] 33.8 pg Normal 26.0-34.0 [facility] Comment on above: Order Comment: Speci men Type: BLOOD SPECIMENOrdering Facility: [facility] Address: [address] [place] [address] Performed By: #### 5 7021-8 ####[facility]ORYCLIA [id number] [address] STATES OF [facility] MCHC (RBC) [Mass/Vol] 33.6 g/dL Normal 30.5-36.0 [facility] Comment on above: Order Comment: Speci men Type: BLOOD SPECIMENOrdering Facility: [facility] Address: [address] [place] [address] Performed By: #### 5 7021-8 ####[facility]ORYCLIA [id number] [address] MCV (RBC) [Entitic vol] 100.6 fL High 80.0-100.0 A [facility] Comment on above: Order Comment: Speci men Type: BLOOD SPECIMENOrdering Facility: [facility] Address: [address] [place] [address] Performed By: #### 5 7021-8 ####[facility]ORYCLIA [id number] [address] Monocytes (Bld) [#/Vol] 0.61 10*3/uL Normal <0.87 [facility] Comment on above: Order Comment: Speci men Type: BLOOD SPECIMENOrdering Facility: [facility] Address: [address] [place] [address] Performed By: #### 5 7021-8 ####[facility]ORYCLIA [id number] [address] Monocytes/100 WBC (Bld) 9.7 % Normal A [facility] Comment on above: Order Comment: Speci men Type: BLOOD SPECIMENOrdering Facility: [facility] Address: [address] [place] [address] Performed By: #### 5 7021-8 ####[facility]ATORYCLIA [id number] [place] [address] [place] Neutrophils (Bld) [#/Vol] 4.30 10*3/uL Normal 1.45-7.50 [facility] Comment on above: Order Comment: Speci men Type: BLOOD SPECIMENOrdering Facility: [facility] Address: [address] [place] [address] Performed By: #### 5 7021-8 ####[facility]ORYCLIA [id number] [address] Neutrophils/100 WBC (Bld) 68.1 % Normal [facility] Comment on above: Order Comment: Speci men Type: BLOOD SPECIMENOrdering Facility: [facility] Address: [address] [place] [address] Performed By: #### 5 7021-8 ####[facility]ATORYCLIA [id number] [place] [address] [place] Nucleated RBC (Bld) [#/Vol] 10*3/uL Normal <0.01 [facility] Comment on above: Order Comment: Speci men Type: BLOOD SPECIMENOrdering Facility: [facility] Address: [address] [place] [address] Performed By: #### 5 7021-8 ####[facility]ORYCLIA [id number] [address] [place] Nucleated RBC/100 WBC (Bld) [Ratio] 0.0 /100 WBC Normal [facility] Comment on above: Order Comment: Speci men Type: BLOOD SPECIMENOrdering Facility: [facility] Address: [address] [place] [address] Performed By: #### 5 7021-8 ####[facility]ORYCLIA [id number] [address] [place] Platelet mean volume (Bld) [Entitic vol] 8.8 fL Low 9.0-12.7 [facility] Comment on above: Order Comment: Speci men Type: BLOOD SPECIMENOrdering Facility: [facility] Address: [address] [place] [address] Performed By: #### 5 7021-8 ####[facility]ORYCLIA [id number] [place] [address] [place] Platelets (Bld) [#/Vol] 116 10*3/uL Low 150-400 [facility] Comment on above: Order Comment: Speci men Type: BLOOD SPECIMENOrdering Facility: [facility] Address: [address] [place] [address] Performed By: #### 5 7021-8 ####[facility]ORYCLIA [id number] [address] [place] RBC (Bld) [#/Vol] 3.55 10*6/uL Low 3.90-5.20 [facility] Comment on above: Order Comment: Speci men Type: BLOOD SPECIMENOrdering Facility: [facility] Address: [address] [place] [address] Performed By: #### 5 7021-8 ####[facility]ORYCLIA [id number] [address] [place] WBC (Bld) [#/Vol] 6.31 10*3/uL Normal 3.70-11.00 [facility] Comment on above: Order Comment: Speci men Type: BLOOD SPECIMENOrdering Facility: [facility] Address: [address] [place] [address] Performed By: #### 5 7021-8 ####[facility]ATORYCLIA [id number] [address] [place] Comprehensive metabolic 2000 panelon 12-16-2024 Albumin [Mass/Vol] 3.1 g/dL Low 3.9-4.9 [facility] Comment on above: Order Comment: Speci men Type: BLOOD SPECIMEN Ordering Facility: [facility] Address: [address] [place] [address] Performed By: #### 2 4321-2, 64817-0, 6-3 #### [facility] CLIA [id number] [address] OF [facility] ALP [Catalytic activity/Vol] 78 U/L Normal 34-123 [facility] Comment on above: Order Comment: Speci men Type: BLOOD SPECIMEN Ordering Facility: [facility] Address: [address] [place] [address] Performed By: #### 2 4321-2, , 3015-3 #### [facility] CLIA [id number] [address] ALT With P-5'-P [Catalytic activity/Vol] 18 U/L Normal 7-38 [facility] Comment on above: Order Comment: Speci men Type: BLOOD SPECIMEN Ordering Facility: [facility] Address: [address] [place] [address] Performed By: #### 2 4321-2, , 3015-3 #### [facility] CLIA [id number] [address] Anion gap [Moles/Vol] 11 mmol/L Normal 8-15 [facility] Comment on above: Order Comment: Speci men Type: BLOOD SPECIMEN Ordering Facility: [facility] Address: [address] [place] [address] Performed By: #### 2 4321-2, , 3015-3 #### [facility] CLIA [id number] [address] OF [facility] AST With P-5'-P [Catalytic activity/Vol] 31 U/L Normal 13-35 [facility] Comment on above: Order Comment: Speci men Type: BLOOD SPECIMEN Ordering Facility: [facility] Address: [address] [place] [id number] Performed By: #### 2 4321-2, 37651-4, 6-3 #### [facility] CLIA [id number] [address] [place] [address] [place] Bilirubin [Mass/Vol] 0.2 mg/dL Normal 0.2-1.3 [facility] Comment on above: Order Comment: Speci men Type: BLOOD SPECIMEN Ordering Facility: [facility] Address: [address] [place] [address] Performed By: #### 2 4321-2, , 3 #### [facility] CLIA [id number] [address] [place] [address] [place] Calcium [Mass/Vol] 8.5 mg/dL Normal 8.5-10.2 [facility] Comment on above: Order Comment: Speci men Type: BLOOD SPECIMEN Ordering Facility: [facility] Address: [address] [place] [address] Performed By: #### 2 4321-2, , 3 #### [facility] CLIA [id number] [address] [place] [address] [place] Chloride [Moles/Vol] 105 mmol/L Normal 98-107 [facility] Comment on above: Order Comment: Speci men Type: BLOOD SPECIMEN Ordering Facility: [facility] Address: [address] [place] [address] Performed By: #### 2 4321-2, , 3 #### [facility] CLIA [id number] [address] [place] [address] [place] CO2 [Moles/Vol] 22 mmol/L Normal 22-30 [facility] Comment on above: Order Comment: Speci men Type: BLOOD SPECIMEN Ordering Facility: [facility] Address: [address] [place] [address] Performed By: #### 2 4321-2, , 3 #### [facility] CLIA [id number] [address] [place] [address] [place] Creatinine [Mass/Vol] 0.36 mg/dL Low 0.58-0.96 [facility] Comment on above: Order Comment: Speci men Type: BLOOD SPECIMEN Ordering Facility: [facility] Address: [address] [place] [address] Performed By: #### 2 4321-2, 64836-2, 3015-3 #### [facility] CLIA [id number] [address] [place] Creatinine and Glomerular filtration rate.predicted panel (S/P/Bld) 107 mL/min/1.73m??? Normal >=60 [facility] Comment on above: Order Comment: Vicky montilla Type: BLOOD SPECIMEN Ordering Facility: [facility] Address: [address] [place] [address] Result Comment: Cecy mated Glomerular Filtration Rate [...] actual GFR. Performed By: #### 2 4321-2, 38574-1, 3 #### [facility] CLIA [id number] [address] [place] [address] [place] Glucose [Mass/Vol] 103 mg/dL High 74-99 [facility] Comment on above: Order Comment: Vicky montilla Type: BLOOD SPECIMEN Ordering Facility: [facility] Address: [address] [place] [address] Result Comment: The [place] Diabetes Association (ADA) provides guidance for cutoff [...] Standards of Medical Care in Diabetes 2016, [place] [employer]. Diabetes Care. 2016.39(Suppl 1). Performed By: #### 2 4321-2, , 3015-3 #### [facility] CLIA [id number] [address] [place] [address] [place] Potassium [Moles/Vol] 3.5 mmol/L Low 3.7-5.1 [facility] Comment on above: Order Comment: Speci men Type: BLOOD SPECIMEN Ordering Facility: [facility] Address: [address] [place] [address] Performed By: #### 2 4321-2, , 3015-3 #### [facility] CLIA [id number] [address] [place] [address] [place] Protein [Mass/Vol] 5.9 g/dL Low 6.3-8.0 [facility] Comment on above: Order Comment: Speci men Type: BLOOD SPECIMEN Ordering Facility: [facility] Address: [address] [place] [address] Performed By: #### 2 1-2, , 3 #### [facility] CLIA [id number] [address] [place] Sodium [Moles/Vol] 138 mmol/L Normal 136-144 [facility] Comment on above: Order Comment: Speci men Type: BLOOD SPECIMEN Ordering Facility: [facility] Address: [address] [place] [address] Performed By: #### 2 1-2, , 3 #### [facility] CLIA [id number] [address] [place] Urea nitrogen [Mass/Vol] 5 mg/dL Low 7-21 [facility] Comment on above: Order Comment: Speci men Type: BLOOD SPECIMEN Ordering Facility: [facility] Address: [address] [place] [address] Performed By: #### 2 4321-2, , 3015-3 #### [facility] CLIA [id number] [address] [place] THERAPY NTon 12-16-2024 THERAPY NT HNO ID: [id number] Author: VIANNEY MARINO, OTR/L Service: Occupational Therapy Author Type: Occupational Therapist Type: Therapy (PT/OT/Speech/Resp) Filed: 12/16/2024 11:01 Note Text: Occupational Therapy Evaluation Summary SERVICE DATE: 12/16/2024 SERVICE TIME: 0915 to 09 ROOM: [place] [address] OT 6 Clicks Score: 11 DISCHARGE RECOMMENDATIONS [facility] Recommended Discharge Disposition Comments: D/C OT, patient [...] HOME LIVING Patient Lives With: Facility Care ([facility]) Assistance Available: 24-Hour Equipment Owned: Wheelchair- Manual PRIOR FUNCTIONAL LEVEL Required Assistance Assistance Required With: Cleaning, Laundry, Meals, Medication Management, Safety, Self Care, Shopping, Transportation Patient lives at [facility], requires significant assistance for all ADLs. She is araseli lifted to the her w/c. Baseline Cognition: Oriented to self, Oriented to place, Oriented to time, Oriented to situation SUBJECTIVE agreeable to session COGNITION Responsiveness: Alert Follows Commands: 2-step Commands Executive Function Deficits: Safety Awareness THERAPY DIAGNOSIS No Skilled Need TREATMENT INTERVENTIONS Evaluation Skilled Treatment Time (minutes): 28 $ Evaluation - Low (69749) Billed Units: 1 unit TRAINING AND EDUCATION [...] December 16, 2024 TIME: 11:00 AM Normal [facility] THERAPY NT HNO ID: [id number] Author: DINA MCMANUS PT Service: Physical Therapy Author Type: Physical Therapist Type: Therapy (PT/OT/Speech/Resp) Filed: 12/16/2024 09:51 Note Text: PHYSICAL THERAPY MISSED VISIT SERVICE DATE: 12/16/2024 SERVICE TIME: 949 ROOM: [place] [address] Patient not seen due to Clinical Appropriateness. Patient araseli lift at [facility] prior to hospitalization. Patient able to return to [facility] SIGNATURE: Dina Mcmanus PT PATIENT NAME: Elba Diaz DATE: December 16, 2024 TIME: 9:50 AM Normal [facility] Basic metabolic 2000 panelon 12-15-2024 Anion gap [Moles/Vol] 13 mmol/L Normal 8-15 [facility] Comment on above: Order Comment: Speci men Type: BLOOD SPECIMEN Ordering Facility: [facility] Address: [address] [place] [address] Performed By: #### 2 4321-2, , 3015-12 #### [facility] CLIA [id number] [address] [place] [address] [place] Calcium [Mass/Vol] 8.3 mg/dL Low 8.5-10.2 [facility] Comment on above: Order Comment: Speci men Type: BLOOD SPECIMEN Ordering Facility: [facility] Address: [address] [place] [address] Performed By: #### 2 4321-2, , 3015-12 #### [facility] CLIA [id number] [address] [place] [address] [place] Chloride [Moles/Vol] 107 mmol/L Normal 98-107 [facility] Comment on above: Order Comment: Speci men Type: BLOOD SPECIMEN Ordering Facility: [facility] Address: [address] [place] [address] Performed By: #### 2 4321-2, , 3 #### [facility] CLIA [id number] [address] CO2 [Moles/Vol] 20 mmol/L Low 22-30 [facility] Comment on above: Order Comment: Speci men Type: BLOOD SPECIMEN Ordering Facility: [facility] Address: [address] [place] [address] Performed By: #### 2 4321-2, , 3 #### [facility] CLIA [id number] [address] Creatinine [Mass/Vol] 0.37 mg/dL Low 0.58-0.96 [facility] Comment on above: Order Comment: Speci men Type: BLOOD SPECIMEN Ordering Facility: [facility] Address: [address] [place] [address] Performed By: #### 2 4321-2, , 3 #### [facility] CLIA [id number] [address] Creatinine and Glomerular filtration rate.predicted panel (S/P/Bld) 107 mL/min/1.73m??? Normal >=60 [facility] Comment on above: Order Comment: Speci men Type: BLOOD SPECIMEN Ordering Facility: [facility] Address: [address] [place] [address] Result Comment: Cecy mated Glomerular Filtration Rate [...] #### 2 4321-2, , 3015-3 #### [place] [facility] CLIA [id number] [address] [place] [address] [place] Glucose [Mass/Vol] 73 mg/dL Low 74-99 [facility] Comment on above: Order Comment: Vicky montilla Type: BLOOD SPECIMEN Ordering Facility: [facility] Address: [address] [place] [address] Result Comment: The [place] Diabetes Association (ADA) provides guidance for cutoff [...] Standards of Medical Care in Diabetes 2016, [place] [employer]. Diabetes Care. 2016.39(Suppl 1). Performed By: #### 2 4321-2, , 3 #### [facility] CLIA [id number] [address] [place] [address] [place] Potassium [Moles/Vol] 3.6 mmol/L Low 3.7-5.1 [facility] Comment on above: Order Comment: Vicky montilla Type: BLOOD SPECIMEN Ordering Facility: [facility] Address: [address] [place] [address] Performed By: #### 2 4321-2, , 3 #### [facility] CLIA [id number] [address] [place] [address] [place] Sodium [Moles/Vol] 140 mmol/L Normal 136-144 [facility] Comment on above: Order Comment: Vicky montilla Type: BLOOD SPECIMEN Ordering Facility: [facility] Address: [address] [place] [address] Performed By: #### 2 4321-2, , 3 #### [facility] CLIA [id number] [address] [place] [address] [place] Urea nitrogen [Mass/Vol] 11 mg/dL Normal 7-21 [facility] Comment on above: Order Comment: Speci men Type: BLOOD SPECIMEN Ordering Facility: [facility] Address: [address] [place] [address] Performed By: #### 2 4321-2, 28498-6, 3016-3 #### [facility] CLIA [id number] [address] [place] [address] [place] CBC panel Auto (Bld)on 12-15 Erythrocyte distribution width (RBC) [Ratio] 12.2 % Normal 11.5-15.0 [facility] Comment on above: Order Comment: Speci men Type: BLOOD SPECIMEN Ordering Facility: [facility] Address: [address] [place] [address] Performed By: #### 3 0471-7 #### [facility] CLIA [id number] [address] [place] [address] [place] Hematocrit (Bld) [Volume fraction] 33.8 % Low 36.0-46.0 [facility] Comment on above: Order Comment: Speci men Type: BLOOD SPECIMEN Ordering Facility: [facility] Address: [address] [place] [address] Performed By: #### 3 0471-7 #### [facility] CLIA [id number] [address] [place] [address] [place] Hemoglobin (Bld) [Mass/Vol] 10.9 g/dL Low 11.5-15.5 [facility] Comment on above: Order Comment: Speci men Type: BLOOD SPECIMEN Ordering Facility: [facility] Address: [address] [place] [address] Performed By: #### 3 0471-7 #### [facility] CLIA [id number] [address] [place] [address] [place] MCH (RBC) [Entitic mass] 33.6 pg Normal 26.0-34.0 [facility] Comment on above: Order Comment: Speci men Type: BLOOD SPECIMEN Ordering Facility: [facility] Address: [address] [place] [address] Performed By: #### 3 0471-7 #### [facility] CLIA [id number] [address] [place] [address] [place] MCHC (RBC) [Mass/Vol] 32.2 g/dL Normal 30.5-36.0 [facility] Comment on above: Order Comment: Speci men Type: BLOOD SPECIMEN Ordering Facility: [facility] Address: [address] [place] [address] Performed By: #### 3 0471-7 #### [facility] CLIA [id number] [address] [place] [address] [place] MCV (RBC) [Entitic vol] 104.3 fL High 80.0-100.0 [facility] Comment on above: Order Comment: Speci men Type: BLOOD SPECIMEN Ordering Facility: [facility] Address: [address] [place] [address] Performed By: #### 3 0471-7 #### [facility] CLIA [id number] [address] [place] [address] [place] Nucleated RBC (Bld) [#/Vol] 10*3/uL Normal <0.01 [facility] Comment on above: Order Comment: Speci men Type: BLOOD SPECIMEN Ordering Facility: [facility] Address: [address] [place] [address] Performed By: #### 3 0471-7 #### [facility] CLIA [id number] [address] [place] [address] [place] Platelet mean volume (Bld) [Entitic vol] 8.9 fL Low 9.0-12.7 [facility] Comment on above: Order Comment: Speci men Type: BLOOD SPECIMEN Ordering Facility: [facility] Address: [address] [place] [address] Performed By: #### 3 0471-7 #### [facility] CLIA [id number] [address] [place] [address] [place] Platelets (Bld) [#/Vol] 109 10*3/uL Low 150-400 [facility] Comment on above: Order Comment: Speci men Type: BLOOD SPECIMEN Ordering Facility: [facility] Address: [address] [place] [address] Performed By: #### 3 0471-7 #### [facility] CLIA [id number] [address] [place] [address] [place] RBC (Bld) [#/Vol] 3.24 10*6/uL Low 3.90-5.20 [facility] Comment on above: Order Comment: Speci men Type: BLOOD SPECIMEN Ordering Facility: [facility] Address: [address] [place] [address] Performed By: #### 3 0471-7 #### [facility] CLIA [id number] [address] [place] [address] [place] WBC (Bld) [#/Vol] 7.76 10*3/uL Normal 3.70-11.00 [facility] Comment on above: Order Comment: Speci men Type: BLOOD SPECIMEN Ordering Facility: [facility] Address: [address] [place] [address] Performed By: #### 3 0471-7 #### [facility] CLIA [id number] [address] [place] [address] [place] CONFIRM BLOOD TYPEon 025 ABO A Normal [facility] Comment on above: Order Comment: Speci men Type: BLOOD SPECIMENOrdering Facility: [facility] Address: [address] [place] [address] Performed By: #### C ONABO ####[facility] [id number] [place] [address] [place] Rh Nom (Bld) Positive Normal [facility] Comment on above: Order Comment: Speci men Type: BLOOD SPECIMENOrdering Facility: [facility] Address: [address] [place] [address] Performed By: #### C ONABO ####[facility] [id number] [place] [address] [facility] ED NOTEon 12-15-2024 ED NOTE HNO ID: [id number] Author: LEEANN BRIONES RN Service: ? Author Type: Registered Nurse Type: ED Notes Filed: 12/15/2024 20:50 Note Text: RN report call x2, informed 4100 pt will go up in 15 minutes at this time [facility] ED NOTE HNO ID: [id number] Author: LEEANN BRIONES RN Service: ? Author Type: Registered Nurse Type: ED Notes Filed: 12/15/2024 20:51 Note Text: Report call x1 attempt, no answer [facility] ED NOTE HNO ID: [id number] Author: YENNY HENDERSON RN Service: Emergency Medicine Author Type: Registered Nurse Type: ED Notes Filed: 12/15/2024 18:13 Note Text: Awaiting D5-.09%NaCl with potassium chloride 20 meq from pharmacy [facility] ED NOTE HNO ID: [id number] Author: YENNY HENDERSON RN Service: Emergency Medicine Author Type: Registered Nurse Type: ED Notes Filed: 12/15/2024 18:11 Note Text: Pt given dinner tray at this time [facility] ED NOTE HNO ID: [id number] Author: YENNY HENDERSON RN Service: Emergency Medicine Author Type: Registered Nurse Type: ED Notes Filed: 12/15/2024 13:27 Note Text: Pt given meal tray at this time [facility] ED NOTE HNO ID: [id number] Author: YENNY HENDERSON RN Service: Emergency Medicine Author Type: Registered Nurse Type: ED Notes Filed: 12/15/2024 12:55 Note Text: Pt given a full bed change. Pt has a stage 2 pressure wound on coccyx. Previous Allevyn dressing removed and new one placed at this time. [facility] ED NOTE HNO ID: [id number] Author: SHUN MARTINEZ Tech Service: Emergency Medicine Author Type: Healthcare Analyst Type: ED Notes Filed: 12/15/2024 09:03 Note Text: Pt home paraprofessional light, pt needing help opening food items [facility] ED NOTE HNO ID: [id number] Author: YENNY HENDERSON RN Service: Emergency Medicine Author Type: Registered Nurse Type: ED Notes Filed: 12/15/2024 08:41 Note Text: Pt given breakfast tray at this time [facility] ED NOTE HNO ID: [id number] Author: SHUN MARTINEZ Tech Service: Emergency Medicine Author Type: Healthcare Analyst Type: ED Notes Filed: 12/15/2024 07:54 Note Text: Pts FSBS 85. Test performed due to noticing pts Glucose 73 at 0542. [facility] ED NOTE HNO ID: [id number] Author: KAILEE CRAIN RN Service: Nursing Author Type: Registered Nurse Type: ED Notes Filed: 12/15/2024 06:12 Note Text: Called sound and made aware of the hgb drop. Spoke with Dr. Cano, he stated he would let Dr. Carreno know. [facility] ALLIED HEALTHon 12-14-2024 ALLIED HEALTH HNO ID: [id number] Author: ARIANNA DAVIS Tech Service: Radiology Author [...] PATIENT PRESENTS WITH AN IMPLANTABLE OR ATTACHED [place] ATTORNEY: No RADIOLOGY DEPARTMENT: CT; Exam(s) Completed: Brain PERIPHERAL IV DATA: Not applicable SIGNED BY: Karo Degroot December 14, 2024 4:32 PM Normal [facility] CBC W Auto Differential pane l (Bld)on 12-14-2024 Basophils (Bld) [#/Vol] 0.04 10*3/uL Normal <0.11 [facility] Comment on above: Order Comment: Speci men Type: BLOOD SPECIMEN Ordering Facility: [facility] Address: [address] [place] [address] Performed By: #### 3 0471-7 #### [facility] CLIA [id number] [address] [place] [address] [place] Basophils/100 WBC (Bld) 0.5 % Normal A [facility] Comment on above: Order Comment: Speci men Type: BLOOD SPECIMEN Ordering Facility: [facility] Address: [address] [place] [address] Performed By: #### 3 0471-7 #### [facility] CLIA [id number] [address] [place] [address] [place] Differential cell count method Nom (Bld) Auto Normal [facility] Comment on above: Order Comment: Speci men Type: BLOOD SPECIMEN Ordering Facility: [facility] Address: [address] [place] [address] Performed By: #### 3 0471-7 #### [facility] CLIA [id number] [address] [place] [address] [place] Eosinophils (Bld) [#/Vol] 0.05 10*3/uL Normal <0.46 [facility] Comment on above: Order Comment: Speci men Type: BLOOD SPECIMEN Ordering Facility: [facility] Address: [address] [place] [address] Performed By: #### 3 0471-7 #### [facility] CLIA [id number] [address] [place], [place] [address] [place] Eosinophils/100 WBC (Bld) 0.6 % Normal [facility] Comment on above: Order Comment: Speci men Type: BLOOD SPECIMEN Ordering Facility: [facility] Address: [address] [place] [address] Performed By: #### 3 0471-7 #### [facility] CLIA [id number] [address] [place] [address] [place] Erythrocyte distribution width (RBC) [Ratio] 12.6 % Normal 11.5-15.0 [facility] Comment on above: Order Comment: Speci men Type: BLOOD SPECIMEN Ordering Facility: [facility] Address: [address] [place] [address] Performed By: #### 3 0471-7 #### [facility] CLIA [id number] [address] [place] [address] [place] Hematocrit (Bld) [Volume fraction] 42.6 % Normal 36.0-46.0 [facility] Comment on above: Order Comment: Speci men Type: BLOOD SPECIMEN Ordering Facility: [facility] Address: [address] [place] [address] Performed By: #### 3 0471-7 #### [facility] CLIA [id number] [address] [place] [address] [place] Hemoglobin (Bld) [Mass/Vol] 13.6 g/dL Normal 11.5-15.5 [facility] Comment on above: Order Comment: Speci men Type: BLOOD SPECIMEN Ordering Facility: [facility] Address: [address] [place] [address] Performed By: #### 3 0471-7 #### [facility] CLIA [id number] [address] [place] [address] [place] Immature granulocytes (Bld) [#/Vol] 0.03 10*3/uL Normal <0.10 [facility] Comment on above: Order Comment: Speci men Type: BLOOD SPECIMEN Ordering Facility: [facility] Address: [address] [place] [address] Performed By: #### 3 0471-7 #### [facility] CLIA [id number] [address] [place] [address] [place] Immature granulocytes/100 WBC (Bld) 0.3 % Normal [facility] Comment on above: Order Comment: Speci men Type: BLOOD SPECIMEN Ordering Facility: [facility] Address: [address] [place] [address] Performed By: #### 3 0471-7 #### [facility] CLIA [id number] [address] [place] [address] [place] Lymphocytes (Bld) [#/Vol] 1.56 10*3/uL Normal 1.00-4.00 [facility] Comment on above: Order Comment: Speci men Type: BLOOD SPECIMEN Ordering Facility: [facility] Address: [address] [place] [address] Performed By: #### 3 0471-7 #### [facility] CLIA [id number] [address] [place] [address] [place] Lymphocytes/100 WBC (Bld) 17.6 % Normal [facility] Comment on above: Order Comment: Speci men Type: BLOOD SPECIMEN Ordering Facility: [facility] Address: [address] [place] [address] Performed By: #### 3 0471-7 #### [facility] CLIA [id number] [address] [place] [address] [place] MCH (RBC) [Entitic mass] 33.3 pg Normal 26.0-34.0 [facility] Comment on above: Order Comment: Speci men Type: BLOOD SPECIMEN Ordering Facility: [facility] Address: [address] [place] [address] Performed By: #### 3 0471-7 #### [facility] CLIA [id number] [address] [place] [address] [place] MCHC (RBC) [Mass/Vol] 31.9 g/dL Normal 30.5-36.0 [facility] Comment on above: Order Comment: Speci men Type: BLOOD SPECIMEN Ordering Facility: [facility] Address: [address] [place] [address] Performed By: #### 3 0471-7 #### [facility] CLIA [id number] [address] [place] [address] [place] MCV (RBC) [Entitic vol] 104.2 fL High 80.0-100.0 A [facility] Comment on above: Order Comment: Speci men Type: BLOOD SPECIMEN Ordering Facility: [facility] Address: [address] [place] [address] Performed By: #### 3 0471-7 #### [facility] CLIA [id number] [address] [place] [address] [place] Monocytes (Bld) [#/Vol] 0.83 10*3/uL Normal <0.87 [facility] Comment on above: Order Comment: Speci men Type: BLOOD SPECIMEN Ordering Facility: [facility] Address: [address] [place] [address] Performed By: #### 3 0471-7 #### [facility] CLIA [id number] [address] [place] [address] [place] Monocytes/100 WBC (Bld) 9.3 % Normal A [facility] Comment on above: Order Comment: Speci men Type: BLOOD SPECIMEN Ordering Facility: [facility] Address: [address] [place] [address] Performed By: #### 3 0471-7 #### [facility] CLIA [id number] [address] [place] [address] [place] Neutrophils (Bld) [#/Vol] 6.37 10*3/uL Normal 1.45-7.50 [facility] Comment on above: Order Comment: Speci men Type: BLOOD SPECIMEN Ordering Facility: [facility] Address: [address] [place] [address] Performed By: #### 3 0471-7 #### [facility] CLIA [id number] [address] [place] [address] [place] Neutrophils/100 WBC (Bld) 71.7 % Normal [facility] Comment on above: Order Comment: Speci men Type: BLOOD SPECIMEN Ordering Facility: [facility] Address: [address] [place] [address] Performed By: #### 3 0471-7 #### [facility] CLIA [id number] [address] [place] [address] [place] Nucleated RBC (Bld) [#/Vol] 10*3/uL Normal <0.01 [facility] Comment on above: Order Comment: Speci men Type: BLOOD SPECIMEN Ordering Facility: [facility] Address: [address] [place] [address] Performed By: #### 3 0471-7 #### [facility] CLIA [id number] [address] [place] [address] [place] Nucleated RBC/100 WBC (Bld) [Ratio] 0.0 /100 WBC Normal [facility] Comment on above: Order Comment: Speci men Type: BLOOD SPECIMEN Ordering Facility: [facility] Address: [address] [place] [address] Performed By: #### 3 0471-7 #### [facility] CLIA [id number] [address] [place] [address] [place] Platelet mean volume (Bld) [Entitic vol] 9.1 fL Normal 9.0-12.7 [facility] Comment on above: Order Comment: Speci men Type: BLOOD SPECIMEN Ordering Facility: [facility] Address: [address] [place] [address] Performed By: #### 3 0471-7 #### [facility] CLIA [id number] [address] [place] [address] [place] Platelets (Bld) [#/Vol] 152 10*3/uL Normal 150-400 [facility] Comment on above: Order Comment: Speci men Type: BLOOD SPECIMEN Ordering Facility: [facility] Address: [address] [place] [address] Performed By: #### 3 0471-7 #### [facility] CLIA [id number] [address] [place] [address] [place] RBC (Bld) [#/Vol] 4.09 10*6/uL Normal 3.90-5.20 [facility] Comment on above: Order Comment: Speci men Type: BLOOD SPECIMEN Ordering Facility: [facility] Address: [address] [place] [address] Performed By: #### 3 0471-7 #### [facility] CLIA [id number] [address] [place] [address] [place] WBC (Bld) [#/Vol] 8.88 10*3/uL Normal 3.70-11.00 [facility] Comment on above: Order Comment: Speci men Type: BLOOD SPECIMEN Ordering Facility: [facility] Address: [address] [place] [address] Performed By: #### 3 0471-7 #### [facility] CLIA [id number] [address] [place] [address] BRAIN WO IVCONon 12-14-[address] BRAIN WO IVCON * * *Final Report* * * DATE OF EXAM: Dec 14 2024 4:34PM [facility] 0504 - CT BRAIN WO [...] changes with no acute intracranial process identified. Reinforcing Rod Layer: ALEXANDRO Transcribe Date/Time: Dec 14 2024 4:59P Dictated by : FANTA WOODWARD MD This examination was interpreted and the report reviewed and electronically signed by: FANTA WOODWARD MD on Dec 14 2024 5:00PM EST [id number] Normal [facility] Comprehensive metabolic 2000 panelon 12-14-2024 Albumin [Mass/Vol] 3.8 g/dL Low 3.9-4.9 [facility] Comment on above: Order Comment: Specjey montilla Type: BLOOD SPECIMEN Ordering Facility: [facility] Address: [address] [place] [address] Performed By: #### 2 4321-2, , 3 #### [facility] CLIA [id number] [address] STATES OF [facility] ALP [Catalytic activity/Vol] 77 U/L Normal 34-123 [facility] Comment on above: Order Comment: Speci eladia Type: BLOOD SPECIMEN Ordering Facility: [facility] Address: [address] [place] [address] Performed By: #### 2 4321-2, , 3 #### [facility] CLIA [id number] [address] [place] ALT With P-5'-P [Catalytic activity/Vol] 17 U/L Normal 7-38 [facility] Comment on above: Order Comment: Speci men Type: BLOOD SPECIMEN Ordering Facility: [facility] Address: [address] [place] [address] Performed By: #### 2 4321-2, , 3 #### [facility] CLIA [id number] [address] STATES [place] [facility] Anion gap [Moles/Vol] 14 mmol/L Normal 8-15 [facility] Comment on above: Order Comment: Speci men Type: BLOOD SPECIMEN Ordering Facility: [facility] Address: [address] [place] [address] Performed By: #### 2 4321-2, , 3 #### [facility] CLIA [id number] [address] [place] AST With P-5'-P [Catalytic activity/Vol] 27 U/L Normal 13-35 [facility] Comment on above: Order Comment: Speci men Type: BLOOD SPECIMEN Ordering Facility: [facility] Address: [address] [place] [address] Performed By: #### 2 4321-2, , 3 #### [facility] CLIA [id number] [address] [place] Bilirubin [Mass/Vol] 0.3 mg/dL Normal 0.2-1.3 [facility] Comment on above: Order Comment: Speci men Type: BLOOD SPECIMEN Ordering Facility: [facility] Address: [address] [place] [address] Performed By: #### 2 4321-2, , 3 #### [facility] CLIA [id number] [address] [place] Calcium [Mass/Vol] 9.9 mg/dL Normal 8.5-10.2 [facility] Comment on above: Order Comment: Speci men Type: BLOOD SPECIMEN Ordering Facility: [facility] Address: [address] [place] [address] Performed By: #### 2 4321-2, 11558-4, 6-3 #### [facility] CLIA [id number] [address] [place] [address] [place] Chloride [Moles/Vol] 108 mmol/L High 98-107 [facility] Comment on above: Order Comment: Speci men Type: BLOOD SPECIMEN Ordering Facility: [facility] Address: [address] [place] [address] Performed By: #### 2 4321-2, , 3 #### [facility] CLIA [id number] [address] [place] [address] [place] CO2 [Moles/Vol] 21 mmol/L Low 22-30 [facility] Comment on above: Order Comment: Speci men Type: BLOOD SPECIMEN Ordering Facility: [facility] Address: [address] [place] [address] Performed By: #### 2 4321-2, , 3 #### [facility] CLIA [id number] [address] [place] Creatinine [Mass/Vol] 0.48 mg/dL Low 0.58-0.96 [facility] Comment on above: Order Comment: Speci men Type: BLOOD SPECIMEN Ordering Facility: [facility] Address: [address] [place] [address] Performed By: #### 2 4321-2, , 3 #### [facility] CLIA [id number] [address] Creatinine and Glomerular filtration rate.predicted panel (S/P/Bld) 100 mL/min/1.73m??? Normal >=60 [facility] Comment on above: Order Comment: Speci men Type: BLOOD SPECIMEN Ordering Facility: [facility] Address: [address] [place] [address] Result Comment: Cecy mated Glomerular Filtration Rate [...] By: #### 2 4321-2, , 3015-12 #### [facility] CLIA [id number] [address] [place] [address] [place] Glucose [Mass/Vol] 104 mg/dL High 74-99 [facility] Comment on above: Order Comment: Vicky montilla Type: BLOOD SPECIMEN Ordering Facility: [facility] Address: [address] [place], [place] [address] Result Comment: The [place] [employer] (ADA) provides guidance for cutoff [...] Standards of Medical Care in Diabetes 2016, [place] [employer]. Diabetes Care. 2016.39(Suppl 1). Performed By: #### 2 4321-2, , 3015-12 #### [facility] CLIA [id number] [address] [place] [address] [place] Potassium [Moles/Vol] 4.3 mmol/L Normal 3.7-5.1 [facility] Comment on above: Order Comment: Vicky montilla Type: BLOOD SPECIMEN Ordering Facility: [facility] Address: [address] [place] [address] Performed By: #### 2 4321-2, , 3015-12 #### [facility] CLIA [id number] [address] [place] [address] [place] Protein [Mass/Vol] 7.1 g/dL Normal 6.3-8.0 [facility] Comment on above: Order Comment: Speci men Type: BLOOD SPECIMEN Ordering Facility: [facility] Address: [address] [place] [address] Performed By: #### 2 4321-2, , 3 #### [place] [facility] CLIA [id number] [address] STATES OF [facility] Sodium [Moles/Vol] 143 mmol/L Normal 136-144 [facility] Comment on above: Order Comment: Speci men Type: BLOOD SPECIMEN Ordering Facility: [facility] Address: [address] [place] [address] Performed By: #### 2 4321-2, , 3 #### [facility] CLIA [id number] [address] [place] Urea nitrogen [Mass/Vol] 17 mg/dL Normal 7-21 [facility] Comment on above: Order Comment: Speci men Type: BLOOD SPECIMEN Ordering Facility: [facility] Address: [address] [place] [address] Performed By: #### 2 4321-2, , 3 #### [facility] CLIA [id number] [address] [place] ECG COMPLETEon 12-14-2024 ECG COMPLETE Ventricular Rate : 1 07 BPM Atrial Rate : 107 BPM P-R Interval : 118 ms QRS Duration : 62 ms Q-T Interval : 322 ms QTC Calculation(Bazett) : 429 ms Calculated P [place] : 19 degrees Calculated R [place] : -19 degrees Calculated T [place] : 27 degrees SINUS TACHYCARDIA LOW VOLTAGE QRS NONSPECIFIC ST AND T WAVE ABNORMALITY ABNORMAL ECG WHEN COMPARED WITH ECG OF 03-Nov-2021 12:23, NONSPECIFIC T WAVE ABNORMALITY, IMPROVED IN LATERAL LEADS Confirmed by PINO DONALDSON MD ([id number]) on 02/23/2025 10:17:12 PM NAME : ELBA DIAZ PID : [id number] : 1950 Gender : Female Race : ORD : [id number] Procedure Date : Dec 14 2024 13:46:46 Edit Date : Feb 23 2025 22:17:13 Diagnosis: SINUS TACHYCARDIA LOW VOLTAGE QRS NONSPECIFIC ST AND T WAVE ABNORMALITY ABNORMAL ECG WHEN COMPARED WITH ECG OF 03-Nov-2021 12:23, NONSPECIFIC T WAVE ABNORMALITY, IMPROVED IN LATERAL LEADS Confirmed by PINO DONALDSON MD ([id number]) on 02/23/2025 10:17:12 PM Test Reason : Chest Pain Location : 4 : AKED EM Overread By : PINO DONALDSON MD Edited By : PINO DONALDSON MD Referred By : , Acquired by : GAYATHRI WOMACK [facility] ED NOTEon 12-14-2024 ED NOTE HNO ID: [id number] Author: KAILEE CRAIN, RN Service: Nursing Author Type: Registered Nurse Type: ED Notes Filed: 12/14/2024 22:50 Note Text: Pt woke up from sleeping. When I went in to turn of IV pump and assess her. She kept repeating, "what a neat trick." When asking what trick she replied, "all of this". Then would just repeat it. Normal [facility] ED NOTE HNO ID: [id number] Author: KAILEE CRAIN, RN Service: Nursing Author Type: Registered Nurse Type: ED Notes Filed: 12/14/2024 19:28 Note Text: Pt in on cardiac monitor technician, bp cuff and pulse ox attached. Pts son at bedside [facility] ED NOTE HNO ID: [id number] Author: KAILEE CRAIN, MONAE Service: Nursing Author Type: Registered Nurse Type: ED Notes Filed: 12/14/2024 19:05 Note Text: Pt given a turkey sandwich. Normal [facility] ED NOTE HNO ID: [id number] Author: ESTELLE PANIAGUA, MONAE Service: Emergency Medicine Author Type: Registered Nurse Type: ED Notes Filed: 12/14/2024 13:52 Note Text: Patient arrives via ems from ems with c/o confusion [facility] ED NOTE HNO ID: [id number] Author: PAMELA BALLESTEROS, Medic Service: ? Author Type: Dixonac Operator and Healthcare Analyst Type: ED Notes Filed: 12/14/2024 13:47 Note Text: Bed: 22-ED Expected date: Expected time: Means of arrival: Comments: Mel 74yo confusion Normal [facility] ED PROV NOTEon 12-14-2024 ED PROV NOTE HNO ID: [id number] Author: SAMEER FISCHER MD Service: Emergency Medicine [...] as of 12/15/24 020 Sameer Fischer's Documentation [facility] Dec 15, 2024 020 ED ATTENDING SIGN OUT NOTE Code Status: @EDCODESTATUS@ Presentation / Findings / Interventions / Plan / Items to Follow Up: awaiting inpatient bed Report Given to: Dr. Pemberton SIGNATURE: Sameer Fischer MD PATIENT NAME: Elba Diaz DATE: December 15, 2024 TIME: 2:00 AM PAGER/CONTACT #: Others' Documentation [facility] Dec 14, 2024 162 Patient here for [...] of the brain unremarkable. Spoke with the [facility] inpatient medical team, who accepted the patient [...] [facility] Emergency [facility] Resident Physician, PGY-2 [facility] This note was created using TuneGO dictation software. Every attempt was made to [...] 12/14/24 2215 SAMEER FISCHER 12/15/24 0104 [facility] ED PROV NOTE HNO ID: [id number] Author: ROBB TORRES MD Service: Emergency Medicine [...] as of 12/15/24 075 Robb Torres's Documentation [facility] Dec 14, 2024 1625 Patient here for [...] to address for these etiologies. Others' Documentation [facility] Dec 15, 2024 0200 ED ATTENDING SIGN OUT NOTE Code Status: @EDCODESTATUS@ Presentation / Findings / Interventions / Plan / Items to Follow Up: awaiting inpatient bed Report Given to: Dr. Pemberton SIGNATURE: NICO PizarroATICHRISTIANE NAME: Elba Diaz DATE: December 15, 2024MRN: [id number] TIME: 2:00 AMPAGER/CONTACT #: [JJ] ED Course [...] aide". 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 [facility] HISTORY PHYSICALon HISTORY PHYSICAL HNO ID: [id number] Author: ELIA CARRENO II, MD Service: Hospital Medicine Author Type: Physician Type: H&P Filed: 12/15/2024 01:36 Note Text: DEPARTMENT OF HOSPITAL MEDICINE HISTORY AND PHYSICAL EXAM SERVICE DATE: 12/15/2024 SERVICE TIME: 1:09 AM Primary Care Physician: No primary care provider on file. NIGHT AND WEEKEND COVERAGE: From 7am - 7pm, please call Sound attending After 7pm, please call cross cover pager #[phone] ==== ASSESSMENT AND PLAN: 1) UTI w/ [...] 13.6 platele (more content not included)... [facility] Urinalysis complete panel (U )on 12-14-2024 Bacteria LM.HPF (Urine sed) [#/Area] Few Abnormal None Seen [facility] Comment on above: Order Comment: Speci men Type: BLOOD SPECIMEN Ordering Facility: [facility] Address: [address] [place] [address] Performed By: #### 3 0471-7 #### [facility] CLIA [id number] [address] [place] [address] [place] Bilirubin Ql (U) Negative Normal Negative [facility] Comment on above: Order Comment: Speci men Type: BLOOD SPECIMEN Ordering Facility: [facility] Address: [address] [place] [address] Performed By: #### 3 0471-7 #### [facility] CLIA [id number] [address] [place] [address] [place] CALCIUM OXALATE CRYSTALS (UA) Few Abnormal None Seen [facility] Comment on above: Order Comment: Speci men Type: BLOOD SPECIMEN Ordering Facility: [facility] Address: [address] [place] [address] Performed By: #### 3 0471-7 #### [facility] CLIA [id number] [address] [place] [address] [place] Clarity (Unsp spec) Turbid Abnormal Clear [facility] Comment on above: Order Comment: Speci men Type: BLOOD SPECIMEN Ordering Facility: [facility] Address: [address] [place] [address] Performed By: #### 3 0471-7 #### [facility] CLIA [id number] [address] [place] [address] [place] Color (U) Yellow Normal yellow [facility] Comment on above: Order Comment: Speci men Type: BLOOD SPECIMEN Ordering Facility: [facility] Address: [address] [place] [address] Performed By: #### 3 0471-7 #### [facility] CLIA [id number] [address] [place] [address] [place] Epithelial cells LM.HPF (Urine sed) [#/Area] Few Normal [facility] Comment on above: Order Comment: Speci men Type: BLOOD SPECIMEN Ordering Facility: [facility] Address: [address] [place] [address] Performed By: #### 3 0471-7 #### [facility] CLIA [id number] [address] [place] [address] [place] Glucose Test strip (U) [Mass/Vol] Negative Normal Trace, Negative [facility] Comment on above: Order Comment: Speci men Type: BLOOD SPECIMEN Ordering Facility: [facility] Address: [address] [place] [address] Performed By: #### 3 0471-7 #### [facility] CLIA [id number] [address] [place] [address] [place] Hemoglobin Ql (U) 1+ Abnormal Negative, Trace [facility] Comment on above: Order Comment: Speci men Type: BLOOD SPECIMEN Ordering Facility: [facility] Address: [address] [place] [address] Performed By: #### 3 0471-7 #### [facility] CLIA [id number] [address] [place] [address] [place] Ketones Ql (U) 3+ Abnormal Negative, Trace [facility] Comment on above: Order Comment: Speci men Type: BLOOD SPECIMEN Ordering Facility: [facility] Address: [address] [place] [address] Performed By: #### 3 0471-7 #### [facility] CLIA [id number] [address] [place] [address] [place] Leukocyte esterase Test strip Ql (U) Negative Normal Negative, 25 Chong/uL [facility] Comment on above: Order Comment: Speci men Type: BLOOD SPECIMEN Ordering Facility: [facility] Address: [address] [place] [address] Performed By: #### 3 0471-7 #### [facility] CLIA [id number] [address] [place] [address] [place] Nitrite Ql (U) 2+ Abnormal Negative [facility] Comment on above: Order Comment: Speci men Type: BLOOD SPECIMEN Ordering Facility: [facility] Address: [address] [place] [address] Performed By: #### 3 0471-7 #### [facility] CLIA [id number] [address] [place] [address] [place] pH (U) 6.0 [pH] Normal 5.0-8.0 [facility] Comment on above: Order Comment: Speci men Type: BLOOD SPECIMEN Ordering Facility: [facility] Address: [address] [place] [address] Performed By: #### 3 0471-7 #### [facility] CLIA [id number] [address] [place] [address] [place] Protein (U) [Mass/Vol] 2+ Abnormal Trace , Negative [facility] Comment on above: Order Comment: Speci men Type: BLOOD SPECIMEN Ordering Facility: [facility] Address: [address] [place] [address] Performed By: #### 3 0471-7 #### [facility] CLIA [id number] [address] [place] [address] [place] RBC LM.HPF (Urine sed) [#/Area] 3-5 /HPF Abnormal 0-3 /HPF [facility] Comment on above: Order Comment: Speci men Type: BLOOD SPECIMEN Ordering Facility: [facility] Address: [address] [place] [address] Performed By: #### 3 0471-7 #### [facility] CLIA [id number] [address] [place] [address] [place] Specific gravity (U) [Rel density] >1.040 High 1.005-1.030 [facility] Comment on above: Order Comment: Speci men Type: BLOOD SPECIMEN Ordering Facility: [facility] Address: [address] [place] [address] Performed By: #### 3 0471-7 #### [facility] CLIA [id number] [address] [place] [address] [place] Urobilinogen Ql (U) Normal Normal Normal [facility] Comment on above: Order Comment: Speci men Type: BLOOD SPECIMEN Ordering Facility: [facility] Address: [address] [place] [address] Performed By: #### 3 0471-7 #### [facility] CLIA [id number] [address] [place] [address] [place] WBC LM.HPF (Urine sed) [#/Area] 0-5 /HPF Normal 0-5 /HPF [facility] Comment on above: Order Comment: Speci men Type: BLOOD SPECIMEN Ordering Facility: [facility] Address: [address] [place] [address] Performed By: #### 3 0471-7 #### [facility] CLIA [id number] [address] [place] [address] [place] XR CHEST 2V [...] bony density. IMPRESSION: No acute radiographic abnormality. Reinforcing Rod Layer: ALEXANDRO Transcribe Date/Time: Dec 14 2024 3:37P Dictated by : MARCUS RAMESH MD This examination was interpreted and the report reviewed and electronically signed by: MARCUS RAMESH MD on Dec 14 2024 3:39PM EST [id number] Normal [facility] levETIRAcetam SerPl-mCncon 0 12-14-2024 levETIRAcetam [Mass/Vol] ug/mL Low 12.0-46.0 [facility] Comment on above: Order Comment: Speci men Type: BLOOD SPECIMENOrdering Facility: [facility] Address: [address] [place] [address] Result Comment: This test is not suitable [...] and its performance characteristics determined by the [facility] Department of Pathology and Laboratory Medicine. It has not been cleared or approved by the FDA. The [facility] Department of Pathology and Laboratory Medicine is regulated under CLIA as qualified to perform high-complexity testing. This test is used for clinical purposes. It should not be regarded as investigational or for research. Performed By: #### 3 0471-7 ####[facility] [id number] [facility] [id number] [address] [place] Blood urea nitrogen (BUN)/cr eatinine ratioOrdered By: Robb Barnes on 11-27-2024 Urea nitrogen/Creatinine [Mass ratio] 36.1 mg/mg High 10-20 [facility] Carbon dioxide measurementOr dered By: Robb Barnes on 11-27-2024 CO2 [Moles/Vol] 23.0 mmol/L 21.0-32.0 [facility] Chloride measurementOrdered By: Robb Barnes on 11-27-2024 Chloride [Moles/Vol] 110 mmol/L High 98-107 [facility] Estimated glomerular filtrat ion rate (GFR) AmericanOrdered By: Robb Barnes on 11-27-2024 Estimated GFR (MDRD) Amer 166 mL/min >60 [facility] Comment on above: GFR Calc Glomerular filtration rate ( GFR) estimationOrdered By: Robb Barnes on 11-27-2024 Estimated GFR (MDRD) Non-Af Amer 138 mL/min >60 [facility] Comment on above: Non- GFR Calc GFR/1.73 sq M.predicted among non-blacks MDRD (S/P/Bld) [Vol rate/Area] 138 mL/min/{1.73_m2} >60 [facility] Comment on above: Non- GFR Calc Glucose measurementOrdered B y: Robb Barnes on 11-27-2024 Glucose [Mass/Vol] 103 mg/dL 74-106 [facility] Comment on above: Fasting Glucose resu lt from 100 to 125 mg/dL suggests IMPAIRED HOMEOSTASIS per A.D.A. criteria. Potassium measurementOrdered By: Robb Barnes on 11-27-2024 Potassium [Moles/Vol] 3.8 mmol/L 3.5-5.1 [facility] Serum anion gap measurementO rdered By: Robb Barnes on 11-27-2024 Anion gap [Moles/Vol] 7 mmol/L 5-15 [facility] Serum or plasma calcium claudette urement (mass/volume)Ordered By: Robb Barnes on 11-27-2024 Calcium [Mass/Vol] 9.6 mg/dL 8.5-10.1 [facility] Serum or plasma creatinine m easurement (mass/volume)Ordered By: Robb Barnes on 11-27-2024 Creatinine [Mass/Vol] 0.47 mg/dL Low 0.55-1.02 [facility] Comment on above: The validity of the calculated GFR & GFRAA in patients over 70 years has not been determined. Clinical correlation is essential. Serum or plasma urea nitroge n measurement (mass/volume)Ordered By: Robb Barnes on 11-27-2024 Urea nitrogen [Mass/Vol] 17 mg/dL 7-18 [facility] Sodium levelOrdered By: Vern Barnes on 11-27-2024 Sodium [Moles/Vol] 140 mmol/L 136-145 [facility] Valproate levelOrdered By: Darlin Barnes on 11-27-2024 Valproic Acid (Depakene) Level 60 ug/mL 50-100 [facility] Albumin to globulin ratioOrd ered By: Robb Barnes on 10-27-2024 Albumin/Globulin [Mass ratio] 0.8 {ratio} Low 0.9-2.4 [facility] Bilirubin, totalOrdered By: Robb Barnes on 10-27-2024 Bilirubin [Mass/Vol] 0.20 mg/dL 0.20-1.00 [facility] Comment on above: For patients on eltr ombopag therapy, use of Dimension [place] TBIL is not recommended. Blood urea nitrogen (BUN)/cr eatinine ratioOrdered By: Robb Barnes on 10-27-2024 Urea nitrogen/Creatinine [Mass ratio] 51.7 mg/mg High 10-20 [facility] Carbon dioxide measurementOr dered By: Robb Barnes on 10-27-2024 CO2 [Moles/Vol] 22.0 mmol/L 21.0-32.0 [facility] Chloride measurementOrdered By: Robb Barnes on 10-27-2024 Chloride [Moles/Vol] 113 mmol/L High 98-107 [facility] Erythrocyte distribution wid th (RBC) [Ratio]Ordered By: Robb Barnes on 10-27-2024 Erythrocyte distribution width (RBC) [Entitic vol] 58.6 fL High 35.1-43.9 [facility] Erythrocyte distribution wid th ratioOrdered By: Robb Barnes on 10-27-2024 Erythrocyte distribution width (RBC) [Ratio] 14.3 % 11.6-14.6 [facility] Estimated glomerular filtrat ion rate (GFR) AmericanOrdered By: Robb Barnes on 10-27-2024 Estimated GFR (MDRD) Amer 161 mL/min >60 [facility] Comment on above: GFR Calc Glomerular filtration rate ( GFR) estimationOrdered By: Robb Barnes on 10-27-2024 Estimated GFR (MDRD) Non-Af Amer 133 mL/min >60 [facility] Comment on above: Non- GFR Calc Glucose measurementOrdered B y: Robb Barnes on 10-27-2024 Glucose [Mass/Vol] 93 mg/dL 74-106 [facility] Hematocrit Auto (Bld) [Volum e fraction]Ordered By: Robb Barnes on 10-27-2024 Hematocrit (Bld) [Volume fraction] 34.7 % Low 37-47 [facility] Hemoglobin measurementOrdere d By: Robb Barnes on 10-27-2024 Hemoglobin (Bld) [Mass/Vol] 10.8 g/dL Low 12.0-15.0 [facility] High density lipoprotein (HD L) measurementOrdered By: Robb Barnes on 10-27-2024 Cholesterol in HDL [Mass/Vol] 48 mg/dL >40 [facility] Comment on above: The drugs N-Acetylcy steine and Metamizole may falsely depress this assay. Reference Range HDL <40 mg/dL Low HDL Cholesterol HDL >or= 60 mg/dL High HDL Cholesterol Iron (Unsp spec) [Mass/Mass] Ordered By: Robb Barnes on 10-27-2024 Iron [Mass/Vol] 47 ug/dL Low 50-170 [facility] Laboratory - Chemistry and C hemistry - challengeOrdered By: Robb Barnes on 10-27-2024 AST [Catalytic activity/Vol] 20 U/L 15-37 [facility] Low density lipoprotein (LDL ) cholesterol measurementOrdered By: Robb Barnes on 10-27-2024 Cholesterol in LDL [Mass/Vol] 64 mg/dL 0-130 [facility] MCV (mean corpuscular volume ) determinationOrdered By: Robb Barnes on 10-27-2024 MCV (RBC) [Entitic vol] 109.5 fL High 81-99 [facility] Magnesium measurementOrdered By: Robb Barnes on 10-27-2024 Magnesium [Mass/Vol] 2.2 mg/dL 1.6-2.6 [facility] Mean corpuscular hemoglobin (MCH) determinationOrdered By: Robb Barnes on 10-27-2024 MCH (RBC) [Entitic mass] 34.1 pg High 27.0-32.0 [facility] Mean corpuscular hemoglobin concentration (MCHC) determinationOrdered By: Robb Barnes on 10-27-2024 MCHC (RBC) [Mass/Vol] 31.1 g/dL Low 32-36 [facility] Mean platelet volume determi nationOrdered By: Robb Barnes on 10-27-2024 Platelet mean volume (Bld) [Entitic vol] 9.2 fL 6.2-12.0 [facility] Platelet countOrdered By: Ramila Barnes on 10-27-2024 Platelets (Bld) [#/Vol] 128 10*3/uL Low 150-450 [facility] Potassium measurementOrdered By: Robb Barnes on 10-27-2024 Potassium [Moles/Vol] 4.1 mmol/L 3.5-5.1 [facility] RBC Auto (Bld) [#/Vol]Ordere d By: Robb Barnes on 10-27-2024 RBC (Bld) [#/Vol] 3.17 10*6/uL Low 4.2-5.4 [facility] Serum anion gap measurementO rdered By: Robb Barnes on 10-27-2024 Anion gap [Moles/Vol] 6 mmol/L 5-15 [facility] Serum globulin measurementOr dered By: Robb Barnes on 10-27-2024 Globulin (S) [Mass/Vol] 3.7 g/dL 2.2-4.2 [facility] Serum or plasma alanine timmons otransferase (ALT) measurementOrdered By: Robb Barnes on 10-27-2024 ALT [Catalytic activity/Vol] 15 U/L 13-56 [facility] Serum or plasma albumin claudette urement (mass/volume)Ordered By: Robb Barnes on 10-27-2024 Albumin [Mass/Vol] 2.8 g/dL Low 3.2-5.0 [facility] Serum or plasma alkaline karson sphatase measurementOrdered By: Robb Barnes on 10-27-2024 ALP [Catalytic activity/Vol] 52 U/L 45-117 [facility] Serum or plasma calcium claudette urement (mass/volume)Ordered By: Robb Barnes on 10-27-2024 Calcium [Mass/Vol] 9.3 mg/dL 8.5-10.1 [facility] Serum or plasma cholesterol measurement (mass/volume)Ordered By: Robb Barnes on 10-27-2024 Cholesterol [Mass/Vol] 135 mg/dL <200 [facility] Comment on above: <200 mg/dL Desirable 200-240 mg/dL Borderline >240 mg/dL High Risk Serum or plasma creatinine m easurement (mass/volume)Ordered By: Robb Barnes on 10-27-2024 Creatinine [Mass/Vol] 0.48 mg/dL Low 0.55-1.02 [facility] Comment on above: The validity of the calculated GFR & GFRAA in patients over 70 years has not been determined. Clinical correlation is essential. Serum or plasma urea nitroge n measurement (mass/volume)Ordered By: Robb Barnes on 10-27-2024 Urea nitrogen [Mass/Vol] 25 mg/dL High 7-18 [facility] Sodium levelOrdered By: Vern Barnes on 10-27-2024 Sodium [Moles/Vol] 141 mmol/L 136-145 [facility] Total proteinOrdered By: Renan Barnes on 10-27-2024 Protein [Mass/Vol] 6.5 g/dL 6.4-8.2 [facility] Triglycerides measurementOrd ered By: Robb Barnes on 10-27-2024 Triglyceride [Mass/Vol] 116 mg/dL <199 [facility] Comment on above: The drugs N-Acetylcy steine and Metamizole may falsely depress this assay.Serum Triglycerides Reference Interval Normal <150 mg/dL Borderline high 150 - 199 mg/dL High 200 - 499 mg/dL Very High > or = 500 mg/dL Very low density lipoprotein (VLDL) cholesterol measurementOrdered By: Robb Barnes on 10-27-2024 VLDL Cholesterol 23 mg/dL 5-40 [facility] White blood cell (WBC) count Ordered By: Robb Barnes on 10-27-2024 WBC (Bld) [#/Vol] 5.6 10*3/uL 4.4-11.0 [facility] Serum or plasma thyroid stim ulating hormone (TSH) measurement (units/volume)Ordered By: Robb Barnes on 12-24-2023 TSH Qn 0.30 uIU/mL 0.358-3.74 [facility] Serum or plasma thyroxine (T 4) measurement (mass/volume)Ordered By: Robb Barnes on 11-13-2023 T4 [Mass/Vol] 9.1 ug/dL 4.8-13.9 [facility] Serum or plasma triiodothyro nine measurement by immunoassay (mass/volume)Ordered By: Robb Barnes on 11-13-2023 T3 IA [Mass/Vol] 0.82 ng/mL 0.6-1.81 [facility] Basophil percentageOrdered B y: Robb Barnes on 11-08-2023 Bilirubin [Mass/Vol] 0.30 mg/dL 0.20-1.00 [facility] Comment on above: For patients on eltr ombopag therapy, use of Dimension [place] TBIL is not recommended. Chloride [Moles/Vol] 108 mmol/L 98-107 [facility] Glucose [Mass/Vol] 94 mg/dL 74-106 [facility] Hemoglobin (Bld) [Mass/Vol] 12.0 g/dL 12.0-15.0 [facility] Potassium [Moles/Vol] 4.0 mmol/L 3.5-5.1 [facility] Protein [Mass/Vol] 6.6 g/dL 6.4-8.2 [facility] Sodium [Moles/Vol] 139 mmol/L 136-145 [facility] WBC (Bld) [#/Vol] 6.2 10*3/uL 4.4-11.0 [facility] Determination of erythrocyte mean corpuscular volume (MCV)Ordered By: Robb Barnes on 11-08-2023 MCV (RBC) [Entitic vol] 102.0 fL 81-99 [facility] Erythrocyte distribution wid th ratioOrdered By: Robb Barnes on 11-08-2023 Erythrocyte distribution width (RBC) [Ratio] 11.8 % 11.6-14.6 [facility] Erythrocyte distribution wid th standard deviationOrdered By: Robb Barnes on 11-08-2023 Erythrocyte distribution width (RBC) [Entitic vol] 44.2 fL 35.1-43.9 [facility] Erythrocyte sedimentation ra teOrdered By: Robb Barnes on 11-08-2023 ESR (Bld) [Velocity] 6 mm/h 0-30 [facility] Hematocrit Auto (Bld) [Volum e fraction]Ordered By: Robb Barnes on 11-08-2023 Hematocrit (Bld) [Volume fraction] 36.4 % 37-47 [facility] Laboratory - Chemistry and C hemistry - challengeOrdered By: Robb Barnes on 11-08-2023 Albumin/Globulin [Mass ratio] 0.8 {ratio} 0.9-2.4 [facility] ALP [Catalytic activity/Vol] 71 U/L 45-117 [facility] ALT [Catalytic activity/Vol] 14 U/L 13-56 [facility] CO2 [Moles/Vol] 28.0 mmol/L 21.0-32.0 [facility] Globulin (S) [Mass/Vol] 3.7 g/dL 2.2-4.2 [facility] Urea nitrogen/Creatinine [Mass ratio] 29.9 mg/mg 10-20 [facility] Laboratory - Hematology and Cell countsOrdered By: Robb Barnes on 11-08-2023 MCH (RBC) [Entitic mass] 33.6 pg 27.0-32.0 [facility] MCHC (RBC) [Mass/Vol] 33.0 g/dL 32-36 [facility] Platelets (Bld) [#/Vol] 150 10*3/uL 150-450 [facility] No Panel InformationOrdered By: Robb Barnes on 11-08-2023 Estimated GFR (MDRD) Amer 95 mL/min >60 [facility] Comment on above: GFR Calc Estimated GFR (MDRD) Non-Af Amer 78 mL/min >60 [facility] Comment on above: Non- GFR Calc Platelet mean volume Marcelo-Ec ker (Bld) [Entitic vol]Ordered By: Robb Barnes on 11-08-2023 Platelet mean volume (Bld) [Entitic vol] 9.1 fL 6.2-12.0 [facility] RBC Auto (Bld) [#/Vol]Ordere d By: Robb Barnes on 11-08-2023 RBC (Bld) [#/Vol] 3.57 10*6/uL 4.2-5.4 [facility] Serum or plasma calcium claudette urement (mass/volume)Ordered By: Robb Barnes on 11-08-2023 Calcium [Mass/Vol] 9.3 mg/dL 8.5-10.1 [facility] Serum or plasma creatinine m easurement (mass/volume)Ordered By: Robb Barnes on 11-08-2023 Creatinine [Mass/Vol] 0.77 mg/dL 0.55-1.02 [facility] Comment on above: The validity of the calculated GFR & GFRAA in patients over 70 years has not been determined. Clinical correlation is essential. Serum or plasma thyroid stim ulating hormone (TSH) measurement (units/volume)Ordered By: Robb Barnes on 11-08-2023 TSH Qn 9.02 uIU/mL 0.358-3.74 [facility] Serum or plasma urea nitroge n measurement (mass/volume)Ordered By: Robb Barnes on 11-08-2023 Urea nitrogen [Mass/Vol] 23 mg/dL 7-18 [facility] Thin prep Papanicolaou smear with manual screeningOrdered By: Robb Barnes on 11-08-2023 Thin prep Papanicolaou smear with manual screening 2.9 g/dL 3.2-5.0 [facility] Thin prep Papanicolaou smear with manual screening 13 U/L 15-37 [facility] Thin prep Papanicolaou smear with manual screening 3 5-15 [facility] Laboratory - Chemistry and C hemistry - challengeOrdered By: Robb Barnes on 08-24-2023 T4 [Mass/Vol] 8.5 ug/dL 4.8-13.9 [facility] No Panel InformationOrdered By: Robb Barnes on 08-24-2023 Thyroid Stimulating Hormone (TSH) 1.26 uIU/mL 0.358-3.74 [facility] Total Triiodothyronine 0.94 ng/mL 0.6-1.81 [facility] Basophil percentageOrdered B y: Robb Barnes on 08-03-2023 Ammonia (P) [Moles/Vol] 46.0 umol/L 11-32 [facility] Iron measurement (mass/mass) Ordered By: Robb Barnes on 08-03-2023 Iron (Unsp spec) [Mass/Mass] 99 ug/dL 50-170 [facility] Laboratory - Chemistry and C hemistry - challengeOrdered By: Robb Barnes on 08-03-2023 Magnesium [Mass/Vol] 2.0 mg/dL 1.6-2.6 [facility] Transferrin [Mass/Vol] 179 mg/dL 192-364 [facility] Comment on above: Performed at: [place] [id number] Director: Angel Franklin PhD, Phone: [phone] No Panel InformationOrdered By: Robb Barnes on 08-03-2023 Total Iron Binding Capacity 227 ug/dL 250-450 [facility] Valproic Acid (Depakene) Level 74 ug/mL 50-100 [facility] Serum or plasma ferritin dionisio surement (mass/volume)Ordered By: Robb Barnes on 08-03-2023 Ferritin [Mass/Vol] 126 ng/mL 8-252 [facility] Serum or plasma iron saturat ion measurement (mass fraction)Ordered By: Robb Barnes on 08-03-2023 Iron saturation [Mass fraction] 43.6 % 15.0-55.0 [facility] No Panel InformationOrdered By: Robb Barnes on 06-07-2023 Thyroid Stimulating Hormone (TSH) 2.42 uIU/mL 0.358-3.74 [facility] Basophil percentageOrdered B y: Robb Barnes on 03-20-2023 Bilirubin [Mass/Vol] 0.30 mg/dL 0.20-1.00 [facility] Comment on above: For patients on eltr ombopag therapy, use of Dimension [place] TBIL is not recommended. Chloride [Moles/Vol] 112 mmol/L 98-107 [facility] Cholesterol [Mass/Vol] 128 mg/dL <200 [facility] Comment on above: <200 mg/dL Desirable 200-240 mg/dL Borderline >240 mg/dL High Risk Glucose [Mass/Vol] 76 mg/dL 74-106 [facility] Potassium [Moles/Vol] 4.3 mmol/L 3.5-5.1 [facility] Protein [Mass/Vol] 5.9 g/dL 6.4-8.2 [facility] Sodium [Moles/Vol] 143 mmol/L 136-145 [facility] Triglyceride [Mass/Vol] 98 mg/dL <199 [facility] Comment on above: The drugs N-Acetylcy steine and Metamizole may falsely depress this assay.Serum Triglycerides Reference Interval Normal <150 mg/dL Borderline high 150 - 199 mg/dL High 200 - 499 mg/dL Very High > or = 500 mg/dL WBC (Bld) [#/Vol] 5.9 10*3/uL 4.4-11.0 [facility] Blood erythrocytes count (nu mber/volume)Ordered By: Robb Barnes on 03-20-2023 RBC (Bld) [#/Vol] 3.49 10*6/uL 4.2-5.4 [facility] Blood hemoglobin measurement (mass/volume)Ordered By: Robb Barnes on 03-20-2023 Hemoglobin (Bld) [Mass/Vol] 12.0 g/dL 12.0-15.0 [facility] Blood platelet mean volumeOr dered By: Robb Barnes on 03-20-2023 Platelet mean volume (Bld) [Entitic vol] 9.1 fL 6.2-12.0 [facility] Determination of erythrocyte mean corpuscular volume (MCV)Ordered By: Robb Barnes on 03-20-2023 MCV (RBC) [Entitic vol] 104.3 fL 81-99 [facility] Erythrocyte sedimentation ra teOrdered By: Robb Barnes on 03-20-2023 ESR (Bld) [Velocity] 6 mm/h 0-30 [facility] Hematocrit Auto (Bld) [Volum e fraction]Ordered By: Robb Barnes on 03-20-2023 Hematocrit (Bld) [Volume fraction] 36.4 % 37-47 [facility] Laboratory - Chemistry and C hemistry - challengeOrdered By: Robb Barnes on 05-30-2023 ALP [Catalytic activity/Vol] 63 U/L 45-117 [facility] ALT [Catalytic activity/Vol] 13 U/L 13-56 [facility] CO2 [Moles/Vol] 26.0 mmol/L 21.0-32.0 [facility] Globulin (S) [Mass/Vol] 3.5 g/dL 2.2-4.2 [facility] Urea nitrogen/Creatinine [Mass ratio] 29.9 mg/mg 10-20 [facility] Laboratory - Hematology and Cell countsOrdered By: Robb Barnes on 03-20-2023 Erythrocyte distribution width (RBC) [Entitic vol] 46.9 fL 35.1-43.9 [facility] Erythrocyte distribution width (RBC) [Ratio] 12.4 % 11.6-14.6 [facility] MCH (RBC) [Entitic mass] 34.4 pg 27.0-32.0 [facility] MCHC Auto (RBC) [Mass/Vol]Or dered By: Robb Barnes on 03-20-2023 MCHC (RBC) [Mass/Vol] 33.0 g/dL 32-36 [facility] No Panel InformationOrdered By: Robb Barnes on 03-20-2023 Estimated GFR (MDRD) Amer 95 mL/min >60 [facility] Comment on above: GFR Calc Estimated GFR (MDRD) Non-Af Amer 79 mL/min >60 [facility] Comment on above: Non- GFR Calc Thyroid Stimulating Hormone (TSH) 4.07 uIU/mL 0.358-3.74 [facility] Vitamin D 25-Hydroxy 73.1 ng/mL [facility] Comment on above: Vitamin D 25(OH) Sta tus Range Deficiency <20 ng/mL (50nmol/L) Insufficiency 20 - 30 ng/mL (50 - 75 nmol/L) Sufficiency 30 - 100 ng/mL (75 - 250 nmol/L) Toxicity >100 ng/mL (>250 nmol/L) Platelets bldOrdered By: Renan Barnes on 03-20-2023 Platelets (Bld) [#/Vol] 108 10*3/uL 150-450 [facility] Serum or plasma albumin claudette urement (mass/volume)Ordered By: Robb Barnes on 03-20-2023 Albumin [Mass/Vol] 2.4 g/dL 3.2-5.0 [facility] Serum or plasma albumin/glob ulin mass ratioOrdered By: Robb Barnes on 03-20-2023 Albumin/Globulin [Mass ratio] 0.7 {ratio} 0.9-2.4 [facility] Serum or plasma calcium claudette urement (mass/volume)Ordered By: Robb Barnes on 03-20-2023 Calcium [Mass/Vol] 8.7 mg/dL 8.5-10.1 [facility] Serum or plasma cholesterol in HDL measurement (mass/volume)Ordered By: Robb Barnes on 03-20-2023 Cholesterol in HDL [Mass/Vol] 36 mg/dL >40 [facility] Comment on above: The drugs N-Acetylcy steine and Metamizole may falsely depress this assay. Reference Range HDL <40 mg/dL Low HDL Cholesterol HDL >or= 60 mg/dL High HDL Cholesterol Serum or plasma cholesterol in VLDL measurement (mass/volume)Ordered By: Robb Barnes on 03-20-2023 Cholesterol in VLDL [Mass/Vol] 20 mg/dL 5-40 [facility] Serum or plasma creatinine m easurement (mass/volume)Ordered By: Robb Barnes on 03-20-2023 Creatinine [Mass/Vol] 0.77 mg/dL 0.55-1.02 [facility] Comment on above: The validity of the calculated GFR & GFRAA in patients over 70 years has not been determined. Clinical correlation is essential. Serum or plasma low density lipoprotein (LDL) cholesterol measurement (mass/volume)Ordered By: Robb Barnes on 03-20-2023 Cholesterol in LDL [Mass/Vol] 72 mg/dL 0-130 [facility] Serum or plasma urea nitroge n measurement (mass/volume)Ordered By: Robb Barnes on 03-20-2023 Urea nitrogen [Mass/Vol] 23 mg/dL 7-18 [facility] Thin prep Papanicolaou smear with manual screeningOrdered By: Robb Barnes on 03-20-2023 Thin prep Papanicolaou smear with manual screening 17 U/L 15-37 [facility] Thin prep Papanicolaou smear with manual screening 5 5-15 [facility] Basophil percentageOrdered B y: Robb Barnes on 01-04-2023 Chloride [Moles/Vol] 111 mmol/L 98-107 [facility] Cholesterol [Mass/Vol] 124 mg/dL <200 [facility] Comment on above: <200 mg/dL Desirable 200-240 mg/dL Borderline >240 mg/dL High Risk Glucose [Mass/Vol] 86 mg/dL 74-106 [facility] Potassium [Moles/Vol] 3.8 mmol/L 3.5-5.1 [facility] Sodium [Moles/Vol] 143 mmol/L 136-145 [facility] Triglyceride [Mass/Vol] 166 mg/dL <199 [facility] Comment on above: The drugs N-Acetylcy steine and Metamizole may falsely depress this assay.Serum Triglycerides Reference Interval Normal <150 mg/dL Borderline high 150 - 199 mg/dL High 200 - 499 mg/dL Very High > or = 500 mg/dL WBC (Bld) [#/Vol] 5.9 10*3/uL 4.4-11.0 [facility] Blood erythrocytes count (nu mber/volume)Ordered By: Robb Barnes on 01-04-2023 RBC (Bld) [#/Vol] 3.20 10*6/uL 4.2-5.4 [facility] Blood hemoglobin measurement (mass/volume)Ordered By: Robb Barnes on 01-04-2023 Hemoglobin (Bld) [Mass/Vol] 10.8 g/dL 12.0-15.0 [facility] Blood platelet mean volumeOr dered By: Robb Barnes on 01-04-2023 Platelet mean volume (Bld) [Entitic vol] 9.0 fL 6.2-12.0 [facility] Determination of erythrocyte mean corpuscular volume (MCV)Ordered By: Robb Barnes on 01-04-2023 MCV (RBC) [Entitic vol] 103.4 fL 81-99 [facility] Hematocrit Auto (Bld) [Volum e fraction]Ordered By: Robb Barnes on 01-04-2023 Hematocrit (Bld) [Volume fraction] 33.1 % 37-47 [facility] Laboratory - Chemistry and C hemistry - challengeOrdered By: Robb Barnes on 01-04-2023 CO2 [Moles/Vol] 25.0 mmol/L 21.0-32.0 [facility] Magnesium [Mass/Vol] 2.0 mg/dL 1.6-2.6 [facility] Urea nitrogen/Creatinine [Mass ratio] 30.1 mg/mg 10-20 [facility] Laboratory - Hematology and Cell countsOrdered By: Robb Barnes on 01-04-2023 Erythrocyte distribution width (RBC) [Entitic vol] 45.2 fL 35.1-43.9 [facility] Erythrocyte distribution width (RBC) [Ratio] 11.9 % 11.6-14.6 [facility] MCH (RBC) [Entitic mass] 33.8 pg 27.0-32.0 [facility] MCHC Auto (RBC) [Mass/Vol]Or dered By: Robb Barnes on 01-04-2023 MCHC (RBC) [Mass/Vol] 32.6 g/dL 32-36 [facility] No Panel InformationOrdered By: Robb Barnes on 01-04-2023 Estimated GFR (MDRD) Amer 119 mL/min >60 [facility] Comment on above: GFR Calc Estimated GFR (MDRD) Non-Af Amer 99 mL/min >60 [facility] Comment on above: Non- GFR Calc Thyroid Stimulating Hormone (TSH) 0.32 uIU/mL 0.358-3.74 [facility] Platelets bldOrdered By: Renan Barnes on 01-04-2023 Platelets (Bld) [#/Vol] 141 10*3/uL 150-450 [facility] Serum or plasma calcium claudette urement (mass/volume)Ordered By: Robb Barnes on 01-04-2023 Calcium [Mass/Vol] 9.0 mg/dL 8.5-10.1 [facility] Serum or plasma cholesterol in HDL measurement (mass/volume)Ordered By: Robb Barnes on 01-04-2023 Cholesterol in HDL [Mass/Vol] 32 mg/dL >40 [facility] Comment on above: The drugs N-Acetylcy steine and Metamizole may falsely depress this assay. Reference Range HDL <40 mg/dL Low HDL Cholesterol HDL >or= 60 mg/dL High HDL Cholesterol Serum or plasma cholesterol in VLDL measurement (mass/volume)Ordered By: Robb Barnes on 01-04-2023 Cholesterol in VLDL [Mass/Vol] 33 mg/dL 5-40 [facility] Serum or plasma creatinine m easurement (mass/volume)Ordered By: Robb Barnes on 01-04-2023 Creatinine [Mass/Vol] 0.63 mg/dL 0.55-1.02 [facility] Comment on above: The validity of the calculated GFR & GFRAA in patients over 70 years has not been determined. Clinical correlation is essential. Serum or plasma low density lipoprotein (LDL) cholesterol measurement (mass/volume)Ordered By: Robb Barnes on 01-04-2023 Cholesterol in LDL [Mass/Vol] 59 mg/dL 0-130 [facility] Serum or plasma urea nitroge n measurement (mass/volume)Ordered By: Robb Barnes on 01-04-2023 Urea nitrogen [Mass/Vol] 19 mg/dL 7-18 [facility] Thin prep Papanicolaou smear with manual screeningOrdered By: Robb Barnes on 01-04-2023 Thin prep Papanicolaou smear with manual screening 7 5-15 [facility] No Panel Informationon 09-13 Valproic Acid (Depakene) Level 76 ug/mL 50-100 [facility] Work Phone: Basophil percentageon 2021 Bilirubin [Mass/Vol] 0.20 mg/dL 0.20-1.00 [facility] Work Phone: Comment on above: For patients on eltr ombopag therapy, use of Dimension [place] TBIL is not recommended. Chloride [Moles/Vol] 106 mmol/L 98-107 [facility] Work Phone: Glucose [Mass/Vol] 66 mg/dL 74-106 [facility] Work Phone: Potassium [Moles/Vol] 3.8 mmol/L 3.5-5.1 [facility] Work Phone: Protein [Mass/Vol] 5.7 g/dL 6.4-8.2 [facility] Work Phone: Sodium [Moles/Vol] 140 mmol/L 136-145 [facility] Work Phone: [phone] WBC (Bld) [#/Vol] 8.8 10*3/uL 4.4-11.0 [facility] Work Phone: [phone] Blood erythrocytes count (nu mber/volume)on 08-03-2022 RBC (Bld) [#/Vol] 3.09 10*6/uL 4.2-5.4 [facility] Work Phone: [phone] Blood hemoglobin measurement (mass/volume)on 08-03-2022 Hemoglobin (Bld) [Mass/Vol] 10.5 g/dL 12.0-15.0 [facility] Work Phone: [phone] Blood platelet mean volumeon 08-03-2022 Platelet mean volume (Bld) [Entitic vol] 8.1 fL 6.2-12.0 [facility] Work Phone: [phone] Determination of erythrocyte mean corpuscular volume (MCV)on 08-03-2022 MCV (RBC) [Entitic vol] 106.5 fL 81-99 [facility] Work Phone: [phone] Direct bilirubinon Bilirubin.direct [Mass/Vol] 0.05 mg/dL 0.00-0.30 [facility] Work Phone: [phone] Hematocrit Auto (Bld) [Volum e fraction]on 08-03-2022 Hematocrit (Bld) [Volume fraction] 32.9 % 37-47 [facility] Work Phone: [phone] INR in Blood by Coagulation assayon 08-03-2022 INR Coag (Bld) [Relative time] 1.0 {INR} [facility] Work Phone: [phone] Laboratory - Chemistry and C hemistry - challengeon 08-03-2022 ALP [Catalytic activity/Vol] 59 U/L 45-117 [facility] Work Phone: [phone] ALT [Catalytic activity/Vol] 13 U/L 13-56 [facility] Work Phone: CO2 [Moles/Vol] 28.0 mmol/L 21.0-32.0 [facility] Work Phone: [phone] Globulin (S) [Mass/Vol] 3.8 g/dL 2.2-4.2 [facility] Work Phone: [phone] Urea nitrogen/Creatinine [Mass ratio] 31.8 mg/mg 10-20 [facility] Work Phone: Laboratory - Coagulationon 1 aPTT Coag (Bld) [Time] 27.0 s 24.1-36.2 Wo gianni [facility] Work Phone: [phone] PT Coag (PPP) [Time] 12.7 s 11.7-14.9 [facility] Work Phone: [phone] Laboratory - Hematology and Cell countson 08-03-2022 Erythrocyte distribution width (RBC) [Entitic vol] 49.4 fL 35.1-43.9 [facility] Work Phone: [phone] Erythrocyte distribution width (RBC) [Ratio] 12.9 % 11.6-14.6 [facility] Work Phone: MCH (RBC) [Entitic mass] 34.0 pg 27.0-32.0 [facility] Work Phone: MCHC Auto (RBC) [Mass/Vol]on 08-03-2022 MCHC (RBC) [Mass/Vol] 31.9 g/dL 32-36 [facility] Work Phone: No Panel Informationon 08-03 Estimated GFR (MDRD) Amer 145 mL/min >60 [facility] Work Phone: [phone] Comment on above: GFR Calc Estimated GFR (MDRD) Non-Af Amer 120 mL/min >60 [facility] Work Phone: [phone] Comment on above: Non- GFR Calc Platelets bldon 08-03-2022 Platelets (Bld) [#/Vol] 122 10*3/uL 150-450 [facility] Work Phone: Serum or plasma albumin claudette urement (mass/volume)on 08-03-2022 Albumin [Mass/Vol] 1.9 g/dL 3.2-5.0 [facility] Work Phone: [phone] Serum or plasma calcium claudette urement (mass/volume)on 08-03-2022 Calcium [Mass/Vol] 8.7 mg/dL 8.5-10.1 [facility] Work Phone: [phone] Serum or plasma creatinine m easurement (mass/volume)on 08-03-2022 Creatinine [Mass/Vol] 0.54 mg/dL 0.55-1.02 [facility] Work Phone: Comment on above: The validity of the calculated GFR & GFRAA in patients over 70 years has not been determined. Clinical correlation is essential. Serum or plasma urea nitroge n measurement (mass/volume)on 08-03-2022 Urea nitrogen [Mass/Vol] 17 mg/dL 7-18 [facility] Work Phone: Thin prep Papanicolaou smear with manual screeningon 08-03-2022 Thin prep Papanicolaou smear with manual screening 18 U/L 15-37 [facility] Work Phone: Thin prep Papanicolaou smear with manual screening 6 5-15 [facility] Work Phone: Basophil percentageon 2021 Bilirubin [Mass/Vol] 0.20 mg/dL 0.20-1.00 [facility] Work Phone: Comment on above: For patients on eltr ombopag therapy, use of Dimension [place] TBIL is not recommended. Chloride [Moles/Vol] 111 mmol/L 98-107 [facility] Work Phone: Glucose [Mass/Vol] 81 mg/dL 74-106 [facility] Work Phone: [phone] Potassium [Moles/Vol] 3.9 mmol/L 3.5-5.1 [facility] Work Phone: [phone] Protein [Mass/Vol] 5.6 g/dL 6.4-8.2 [facility] Work Phone: Sodium [Moles/Vol] 143 mmol/L 136-145 [facility] Work Phone: [phone] WBC (Bld) [#/Vol] 8.0 10*3/uL 4.4-11.0 [facility] Work Phone: Bilirubin Test strip Ql (U)o n 06-25-2022 Bilirubin Ql (U) Negative Negative [facility] Work Phone: [phone] Blood erythrocytes count (nu mber/volume)on 06-25-2022 RBC (Bld) [#/Vol] 3.52 10*6/uL 4.2-5.4 [facility] Work Phone: [phone] Blood hemoglobin measurement (mass/volume)on 06-25-2022 Hemoglobin (Bld) [Mass/Vol] 11.9 g/dL 12.0-15.0 [facility] Work Phone: [phone] Blood platelet mean volumeon 06-25-2022 Platelet mean volume (Bld) [Entitic vol] 8.4 fL 6.2-12.0 [facility] Work Phone: [phone] Determination of erythrocyte mean corpuscular volume (MCV)on 06-25-2022 MCV (RBC) [Entitic vol] 104.3 fL 81-99 [facility] Work Phone: [phone] Hematocrit Auto (Bld) [Volum e fraction]on 06-25-2022 Hematocrit (Bld) [Volume fraction] 36.7 % 37-47 [facility] Work Phone: Ketones Test strip Ql (U)on 06-25-2022 Ketones Ql (U) 5 mg/dl Negative [facility] Work Phone: Laboratory - Chemistry and C hemistry - challengeon 06-25-2022 ALP [Catalytic activity/Vol] 60 U/L 45-117 [facility] Work Phone: ALT [Catalytic activity/Vol] 20 U/L 13-56 [facility] Work Phone: [phone] CO2 [Moles/Vol] 26.0 mmol/L 21.0-32.0 [facility] Work Phone: [phone] Globulin (S) [Mass/Vol] 3.3 g/dL 2.2-4.2 [facility] Work Phone: [phone] Magnesium [Mass/Vol] 1.9 mg/dL 1.6-2.6 [facility] Work Phone: [phone] Urea nitrogen/Creatinine [Mass ratio] 36.1 mg/mg 10-20 [facility] Work Phone: [phone] Laboratory - Hematology and Cell countson 06-25-2022 Erythrocyte distribution width (RBC) [Entitic vol] 46.9 fL 35.1-43.9 [facility] Work Phone: [phone] Erythrocyte distribution width (RBC) [Ratio] 12.4 % 11.6-14.6 [facility] Work Phone: [phone] MCH (RBC) [Entitic mass] 33.8 pg 27.0-32.0 [facility] Work Phone: [phone] MCHC Auto (RBC) [Mass/Vol]on 06-25-2022 MCHC (RBC) [Mass/Vol] 32.4 g/dL 32-36 [facility] Work Phone: [phone] Nitrite Test strip Ql (U)on 06-25-2022 Nitrite Ql (U) Negative Negative [facility] Work Phone: [phone] No Panel Informationon 06-25 Estimated GFR (MDRD) Amer 139 mL/min >60 [facility] Work Phone: [phone] Comment on above: GFR Calc Estimated GFR (MDRD) Non-Af Amer 115 mL/min >60 [facility] Work Phone: [phone] Comment on above: Non- GFR Calc Platelets bldon 06-25-2022 Platelets (Bld) [#/Vol] 101 10*3/uL 150-450 [facility] Work Phone: [phone] Protein Test strip Ql (U)on 06-25-2022 Protein Ql (U) 100 mg/dl Negative [facility] Work Phone: Serum or plasma albumin claudette urement (mass/volume)on 06-25-2022 Albumin [Mass/Vol] 2.3 g/dL 3.2-5.0 [facility] Work Phone: Serum or plasma albumin/glob ulin mass ratioon 06-25-2022 Albumin/Globulin [Mass ratio] 0.7 {ratio} 0.9-2.4 [facility] Work Phone: Serum or plasma calcium claudette urement (mass/volume)on 06-25-2022 Calcium [Mass/Vol] 8.4 mg/dL 8.5-10.1 [facility] Work Phone: Serum or plasma creatinine m easurement (mass/volume)on 06-25-2022 Creatinine [Mass/Vol] 0.55 mg/dL 0.55-1.02 [facility] Work Phone: Comment on above: The validity of the calculated GFR & GFRAA in patients over 70 years has not been determined. Clinical correlation is essential. Serum or plasma urea nitroge n measurement (mass/volume)on 06-25-2022 Urea nitrogen [Mass/Vol] 20 mg/dL 7-18 [facility] Work Phone: Thin prep Papanicolaou smear with manual screeningon 06-25-2022 Thin prep Papanicolaou smear with manual screening 22 U/L 15-37 [facility] Work Phone: Thin prep Papanicolaou smear with manual screening 6 5-15 [facility] Work Phone: Urine blood detectionon RBC Ql (U) 50 /ul Negative [facility] Work Phone: [phone] Urine clarityon 06-25-2022 Clarity (U) Cloudy Clear [facility] Work Phone: Urine color determinationon 06-25-2022 Color (U) SEE COMMENT BELOW Yellow [facility] Work Phone: Comment on above: Visual Urine Color: GREEN Urine glucose detectionon Glucose Ql (U) Normal mg/dl Normal [facility] Work Phone: Urine leukocyte esterase det ection by dipstickon 06-25-2022 Leukocyte esterase Test strip Ql (U) 500 /ul Negative [facility] Work Phone: Urine pHon 06-25-2022 pH (U) 7.0 [pH] 5.0 - 8.0 [facility] Work Phone: [phone] Urine specific gravity measu rementon 06-25-2022 Specific gravity (U) [Rel density] 1.020 1.002-1.030 [facility] Work Phone: [phone] Urobilinogen Auto test strip Ql (U)on 06-25-2022 Urobilinogen Ql (U) Normal mg/dl Normal [facility] Work Phone: Basophil percentageon 2021 Bilirubin [Mass/Vol] 0.10 mg/dL 0.20-1.00 [facility] Work Phone: Comment on above: For patients on eltr ombopag therapy, use of Dimension [place] TBIL is not recommended. Chloride [Moles/Vol] 109 mmol/L 98-107 [facility] Work Phone: Glucose [Mass/Vol] 84 mg/dL 74-106 [facility] Work Phone: Potassium [Moles/Vol] 4.4 mmol/L 3.5-5.1 [facility] Work Phone: Protein [Mass/Vol] 5.4 g/dL 6.4-8.2 [facility] Work Phone: Sodium [Moles/Vol] 141 mmol/L 136-145 [facility] Work Phone: WBC (Bld) [#/Vol] 7.1 10*3/uL 4.4-11.0 [facility] Work Phone: [phone] Blood erythrocytes count (nu mber/volume)on 04-21-2022 RBC (Bld) [#/Vol] 2.97 10*6/uL 4.2-5.4 [facility] Work Phone: Blood hemoglobin measurement (mass/volume)on 04-21-2022 Hemoglobin (Bld) [Mass/Vol] 10.2 g/dL 12.0-15.0 [facility] Work Phone: Blood platelet mean volumeon 04-21-2022 Platelet mean volume (Bld) [Entitic vol] 7.8 fL 6.2-12.0 [facility] Work Phone: Determination of erythrocyte mean corpuscular volume (MCV)on 04-21-2022 MCV (RBC) [Entitic vol] 104.0 fL 81-99 [facility] Work Phone: Erythrocyte sedimentation ra irlanda 04-21-2022 ESR (Bld) [Velocity] 18 mm/h 0-30 [facility] Work Phone: Hematocrit Auto (Bld) [Volum e fraction]on 04-21-2022 Hematocrit (Bld) [Volume fraction] 30.9 % 37-47 [facility] Work Phone: Laboratory - Chemistry and C hemistry - challengeon 04-21-2022 ALP [Catalytic activity/Vol] 50 U/L 45-117 [facility] Work Phone: ALT [Catalytic activity/Vol] 10 U/L 13-56 [facility] Work Phone: CO2 [Moles/Vol] 26.0 mmol/L 21.0-32.0 [facility] Work Phone: Globulin (S) [Mass/Vol] 3.2 g/dL 2.2-4.2 [facility] Work Phone: Urea nitrogen/Creatinine [Mass ratio] 33.2 mg/mg 10-20 [facility] Work Phone: Laboratory - Hematology and Cell countson 04-21-2022 Erythrocyte distribution width (RBC) [Entitic vol] 46.8 fL 35.1-43.9 [facility] Work Phone: [phone] Erythrocyte distribution width (RBC) [Ratio] 12.5 % 11.6-14.6 [facility] Work Phone: [phone] MCH (RBC) [Entitic mass] 34.3 pg 27.0-32.0 [facility] Work Phone: [phone] MCHC Auto (RBC) [Mass/Vol]on 04-21-2022 MCHC (RBC) [Mass/Vol] 33.0 g/dL 32-36 [facility] Work Phone: No Panel Informationon 04-21 Estimated GFR (MDRD) Amer 134 mL/min >60 [facility] Work Phone: [phone] Comment on above: GFR Calc Estimated GFR (MDRD) Non-Af Amer 111 mL/min >60 [facility] Work Phone: [phone] Comment on above: Non- GFR Calc Platelets bldon 04-21-2022 Platelets (Bld) [#/Vol] 124 10*3/uL 150-450 [facility] Work Phone: [phone] Serum or plasma albumin claudette urement (mass/volume)on 04-21-2022 Albumin [Mass/Vol] 2.2 g/dL 3.2-5.0 [facility] Work Phone: [phone] Serum or plasma albumin/glob ulin mass ratioon 04-21-2022 Albumin/Globulin [Mass ratio] 0.7 {ratio} 0.9-2.4 [facility] Work Phone: [phone] Serum or plasma calcium claudette urement (mass/volume)on 04-21-2022 Calcium [Mass/Vol] 9.0 mg/dL 8.5-10.1 [facility] Work Phone: [phone] Serum or plasma creatinine m easurement (mass/volume)on 04-21-2022 Creatinine [Mass/Vol] 0.57 mg/dL 0.55-1.02 [facility] Work Phone: [phone] Comment on above: The validity of the calculated GFR & GFRAA in patients over 70 years has not been determined. Clinical correlation is essential. Serum or plasma urea nitroge n measurement (mass/volume)on 04-21-2022 Urea nitrogen [Mass/Vol] 19 mg/dL 7-18 [facility] Work Phone: Thin prep Papanicolaou smear with manual screeningon 04-21-2022 Thin prep Papanicolaou smear with manual screening 14 U/L 15-37 [facility] Work Phone: Thin prep Papanicolaou smear with manual screening 6 5-15 [facility] Work Phone: Basophil percentageon 2021 Chloride [Moles/Vol] 107 mmol/L 98-107 [facility] Work Phone: Cholesterol [Mass/Vol] 104 mg/dL <200 [facility] Work Phone: Comment on above: <200 mg/dL Desirable 200-240 mg/dL Borderline >240 mg/dL High Risk Glucose [Mass/Vol] 76 mg/dL 74-106 [facility] Work Phone: Potassium [Moles/Vol] 3.7 mmol/L 3.5-5.1 [facility] Work Phone: Sodium [Moles/Vol] 143 mmol/L 136-145 [facility] Work Phone: Triglyceride [Mass/Vol] 81 mg/dL <199 [facility] Work Phone: Comment on above: The drugs N-Acetylcy steine and Metamizole may falsely depress this assay.Serum Triglycerides Reference Interval Normal <150 mg/dL Borderline high 150 - 199 mg/dL High 200 - 499 mg/dL Very High > or = 500 mg/dL WBC (Bld) [#/Vol] 5.5 10*3/uL 4.4-11.0 [facility] Work Phone: Blood erythrocytes count (nu mber/volume)on 02-28-2022 RBC (Bld) [#/Vol] 2.43 10*6/uL 4.2-5.4 [facility] Work Phone: Blood hemoglobin measurement (mass/volume)on 02-28-2022 Hemoglobin (Bld) [Mass/Vol] 7.9 g/dL 12.0-15.0 [facility] Work Phone: [phone] Blood platelet mean volumeon 02-28-2022 Platelet mean volume (Bld) [Entitic vol] 8.4 fL 6.2-12.0 [facility] Work Phone: [phone] Determination of erythrocyte mean corpuscular volume (MCV)on 02-28-2022 MCV (RBC) [Entitic vol] 111.5 fL 81-99 [facility] Work Phone: Hematocrit Auto (Bld) [Volum e fraction]on 02-28-2022 Hematocrit (Bld) [Volume fraction] 27.1 % 37-47 [facility] Work Phone: Laboratory - Chemistry and C hemistry - challengeon 02-28-2022 CO2 [Moles/Vol] 29.0 mmol/L 21.0-32.0 [facility] Work Phone: Magnesium [Mass/Vol] 1.9 mg/dL 1.6-2.6 [facility] Work Phone: Urea nitrogen/Creatinine [Mass ratio] 28.9 mg/mg 10-20 [facility] Work Phone: [phone] Laboratory - Hematology and Cell countson 02-28-2022 Erythrocyte distribution width (RBC) [Entitic vol] 53.7 fL 35.1-43.9 [facility] Work Phone: [phone] Erythrocyte distribution width (RBC) [Ratio] 13.2 % 11.6-14.6 [facility] Work Phone: [phone] MCH (RBC) [Entitic mass] 32.5 pg 27.0-32.0 [facility] Work Phone: [phone] MCHC Auto (RBC) [Mass/Vol]on 02-28-2022 MCHC (RBC) [Mass/Vol] 29.2 g/dL 32-36 [facility] Work Phone: No Panel Informationon 02-28 Estimated GFR (MDRD) Amer 139 mL/min >60 [facility] Work Phone: Comment on above: GFR Calc Estimated GFR (MDRD) Non-Af Amer 115 mL/min >60 [facility] Work Phone: Comment on above: Non- GFR Calc Thyroid Stimulating Hormone (TSH) 2.92 uIU/mL 0.358-3.74 [facility] Work Phone: Vitamin D 25-Hydroxy 51.1 ng/mL [facility] Work Phone: Comment on above: Vitamin D 25(OH) Sta tus Range Deficiency <20 ng/mL (50nmol/L) Insufficiency 20 - 30 ng/mL (50 - 75 nmol/L) Sufficiency 30 - 100 ng/mL (75 - 250 nmol/L) Toxicity >100 ng/mL (>250 nmol/L) Platelets bldon 02-28-2022 Platelets (Bld) [#/Vol] 164 10*3/uL 150-450 [facility] Work Phone: Serum or plasma calcium claudette urement (mass/volume)on 02-28-2022 Calcium [Mass/Vol] 8.5 mg/dL 8.5-10.1 [facility] Work Phone: Serum or plasma cholesterol in HDL measurement (mass/volume)on 02-28-2022 Cholesterol in HDL [Mass/Vol] 57 mg/dL >40 [facility] Work Phone: Comment on above: The drugs N-Acetylcy steine and Metamizole may falsely depress this assay. Reference Range HDL <40 mg/dL Low HDL Cholesterol HDL >or= 60 mg/dL High HDL Cholesterol Serum or plasma cholesterol in VLDL measurement (mass/volume)on 02-28-2022 Cholesterol in VLDL [Mass/Vol] 16 mg/dL 5-40 [facility] Work Phone: Serum or plasma creatinine m easurement (mass/volume)on 02-28-2022 Creatinine [Mass/Vol] 0.55 mg/dL 0.55-1.02 [facility] Work Phone: Comment on above: The validity of the calculated GFR & GFRAA in patients over 70 years has not been determined. Clinical correlation is essential. Serum or plasma low density lipoprotein (LDL) cholesterol measurement (mass/volume)on 02-28-2022 Cholesterol in LDL [Mass/Vol] 31 mg/dL 0-130 [facility] Work Phone: Serum or plasma urea nitroge n measurement (mass/volume)on 02-28-2022 Urea nitrogen [Mass/Vol] 16 mg/dL 7-18 [facility] Work Phone: [phone] Thin prep Papanicolaou smear with manual screeningon 02-28-2022 Thin prep Papanicolaou smear with manual screening 7 5-15 [facility] Work Phone: [phone] Whole blood hemoglobin A1c/t otal hemoglobin ratio (mass fraction)on 02-28-2022 HbA1c (Bld) [Mass fraction] % 3.8-5.6 [facility] Work Phone: Comment on above: Normal < 5.7 % Predi abetic 5.7 - 6.4 % Diabetic >or= 6.5 % Please note range changes. Basophil percentageon 2021 Ammonia (P) [Moles/Vol] 18.0 umol/L 11-32 [facility] Work Phone: No Panel Informationon 12-05 Valproic Acid (Depakene) Level 95 ug/mL 50-100 [facility] Work Phone: Basophil percentageon 2021 Bilirubin [Mass/Vol] 0.10 mg/dL 0.20-1.00 [facility] Work Phone: [phone] Comment on above: For patients on eltr ombopag therapy, use of Dimension [place] TBIL is not recommended. Chloride [Moles/Vol] 110 mmol/L 98-107 [facility] Work Phone: [phone] Glucose [Mass/Vol] 87 mg/dL 74-106 [facility] Work Phone: Potassium [Moles/Vol] 3.7 mmol/L 3.5-5.1 [facility] Work Phone: [phone] Protein [Mass/Vol] 5.1 g/dL 6.4-8.2 [facility] Work Phone: [phone] Sodium [Moles/Vol] 142 mmol/L 136-145 [facility] Work Phone: Laboratory - Chemistry and C hemistry - challengeon 12-01-2021 ALP [Catalytic activity/Vol] 45 U/L 45-117 [facility] Work Phone: [phone] ALT [Catalytic activity/Vol] 10 U/L 13-56 [facility] Work Phone: [phone] CO2 [Moles/Vol] 28.0 mmol/L 21.0-32.0 [facility] Work Phone: [phone] Globulin (S) [Mass/Vol] 2.7 g/dL 2.2-4.2 [facility] Work Phone: [phone] Urea nitrogen/Creatinine [Mass ratio] 36.8 mg/mg 10-20 [facility] Work Phone: No Panel Informationon 12-01 Estimated GFR (MDRD) Amer 101 mL/min >60 [facility] Work Phone: Comment on above: GFR Calc Estimated GFR (MDRD) Non-Af Amer 83 mL/min >60 [facility] Work Phone: [phone] Comment on above: Non- GFR Calc Serum or plasma albumin claudette urement (mass/volume)on 12-01-2021 Albumin [Mass/Vol] 2.4 g/dL 3.2-5.0 [facility] Work Phone: [phone] Serum or plasma albumin/glob ulin mass ratioon 12-01-2021 Albumin/Globulin [Mass ratio] 0.9 {ratio} 0.9-2.4 [facility] Work Phone: [phone] Serum or plasma calcium claudette urement (mass/volume)on 12-01-2021 Calcium [Mass/Vol] 8.9 mg/dL 8.5-10.1 [facility] Work Phone: Serum or plasma creatinine m easurement (mass/volume)on 12-01-2021 Creatinine [Mass/Vol] 0.73 mg/dL 0.55-1.02 [facility] Work Phone: Comment on above: The validity of the calculated GFR & GFRAA in patients over 70 years has not been determined. Clinical correlation is essential. Serum or plasma urea nitroge n measurement (mass/volume)on 12-01-2021 Urea nitrogen [Mass/Vol] 27 mg/dL 7-18 [facility] Work Phone: Thin prep Papanicolaou smear with manual screeningon 12-01-2021 Thin prep Papanicolaou smear with manual screening 8 U/L 15-37 [facility] Work Phone: Thin prep Papanicolaou smear with manual screening 4 5-15 [facility] Work Phone: Basophil percentageon 2021 Chloride [Moles/Vol] 110 mmol/L 98-107 [facility] Work Phone: Glucose [Mass/Vol] 74 mg/dL 74-106 [facility] Work Phone: Potassium [Moles/Vol] 3.2 mmol/L 3.5-5.1 [facility] Work Phone: Sodium [Moles/Vol] 145 mmol/L 136-145 [facility] Work Phone: Laboratory - Chemistry and C hemistry - challengeon 11-16-2021 CO2 [Moles/Vol] 27.0 mmol/L 21.0-32.0 [facility] Work Phone: Urea nitrogen/Creatinine [Mass ratio] 22.6 mg/mg 10-20 [facility] Work Phone: No Panel Informationon 11-16 Estimated GFR (MDRD) Amer 134 mL/min >60 [facility] Work Phone: Comment on above: GFR Calc Estimated GFR (MDRD) Non-Af Amer 110 mL/min >60 [facility] Work Phone: Comment on above: Non- GFR Calc Serum or plasma calcium claudette urement (mass/volume)on 11-16-2021 Calcium [Mass/Vol] 8.7 mg/dL 8.5-10.1 [facility] Work Phone: Serum or plasma creatinine m easurement (mass/volume)on 11-16-2021 Creatinine [Mass/Vol] 0.57 mg/dL 0.55-1.02 [facility] Work Phone: Comment on above: The validity of the calculated GFR & GFRAA in patients over 70 years has not been determined. Clinical correlation is essential. Serum or plasma urea nitroge n measurement (mass/volume)on 11-16-2021 Urea nitrogen [Mass/Vol] 13 mg/dL 7-18 [facility] Work Phone: Thin prep Papanicolaou smear with manual screeningon 11-16-2021 Thin prep Papanicolaou smear with manual screening 8 5-15 [facility] Work Phone: Basophil percentageon 2021 Chloride [Moles/Vol] 104 mmol/L 98-107 [facility] Work Phone: Glucose [Mass/Vol] 81 mg/dL 74-106 [facility] Work Phone: Potassium [Moles/Vol] 2.9 mmol/L 3.5-5.1 [facility] Work Phone: Sodium [Moles/Vol] 142 mmol/L 136-145 [facility] Work Phone: [phone] WBC (Bld) [#/Vol] 9.8 10*3/uL 4.4-11.0 [facility] Work Phone: Blood erythrocytes count (nu mber/volume)on 11-08-2021 RBC (Bld) [#/Vol] 3.21 10*6/uL 4.2-5.4 [facility] Work Phone: Blood hemoglobin measurement (mass/volume)on 11-08-2021 Hemoglobin (Bld) [Mass/Vol] 9.0 g/dL 12.0-15.0 [facility] Work Phone: [phone] Blood manual differential co mment interpretation (narrative result)on 11-08-2021 Manual differential comment Charan (Bld) [Interp] SCANNED [facility] Work Phone: Comment on above: 2+ ANISOCYTOSIS1+ [place] CROCYTOSIS1+ MACROCYTOSIS Blood platelet mean volumeon 11-08-2021 Platelet mean volume (Bld) [Entitic vol] 8.7 fL 6.2-12.0 [facility] Work Phone: [phone] Determination of erythrocyte mean corpuscular volume (MCV)on 11-08-2021 MCV (RBC) [Entitic vol] 90.7 fL 81-99 [facility] Work Phone: [phone] Hematocrit Auto (Bld) [Volum e fraction]on 11-08-2021 Hematocrit (Bld) [Volume fraction] 29.1 % 37-47 [facility] Work Phone: [phone] Laboratory - Chemistry and C hemistry - challengeon 11-08-2021 CO2 [Moles/Vol] 32.0 mmol/L 21.0-32.0 [facility] Work Phone: [phone] Urea nitrogen/Creatinine [Mass ratio] 34.5 mg/mg 10-20 [facility] Work Phone: [phone] Laboratory - Hematology and Cell countson 11-08-2021 Erythrocyte distribution width (RBC) [Entitic vol] 68.8 fL 35.1-43.9 [facility] Work Phone: [phone] Erythrocyte distribution width (RBC) [Ratio] 20.9 % 11.6-14.6 [facility] Work Phone: [phone] MCH (RBC) [Entitic mass] 28.0 pg 27.0-32.0 [facility] Work Phone: [phone] MCHC Auto (RBC) [Mass/Vol]on 11-08-2021 MCHC (RBC) [Mass/Vol] 30.9 g/dL 32-36 [facility] Work Phone: No Panel Informationon 11-08 Estimated GFR (MDRD) Amer 159 mL/min >60 [facility] Work Phone: Comment on above: GFR Calc Estimated GFR (MDRD) Non-Af Amer 132 mL/min >60 [facility] Work Phone: Comment on above: Non- GFR Calc Platelets bldon 11-08-2021 Platelets (Bld) [#/Vol] 276 10*3/uL 150-450 [facility] Work Phone: Serum or plasma calcium claudette urement (mass/volume)on 11-08-2021 Calcium [Mass/Vol] 8.4 mg/dL 8.5-10.1 [facility] Work Phone: Serum or plasma creatinine m easurement (mass/volume)on 11-08-2021 Creatinine [Mass/Vol] 0.49 mg/dL 0.55-1.02 [facility] Work Phone: Comment on above: The validity of the calculated GFR & GFRAA in patients over 70 years has not been determined. Clinical correlation is essential. Serum or plasma urea nitroge n measurement (mass/volume)on 11-08-2021 Urea nitrogen [Mass/Vol] 17 mg/dL 7-18 [facility] Work Phone: Thin prep Papanicolaou smear with manual screeningon 11-08-2021 Thin prep Papanicolaou smear with manual screening 6 5-15 [facility] Work Phone: CNPNon 10-28-2021 CNPN Telephone ([facility]) ELBA DIAZ ([id number]) 1950 F T Date Time Provider Department 10/28/21 MARCUS TIERNEY [facility] During your visit today, we recorded [...] 1 TABLET BY MOUTH EVERY DAY - [facility] Blue-Sod Wacn-RbMdn-Win (URIBEL) 118-10-40.8-36 mg Take 1 capsule by [...] [I63.9] 03/05/2020 Spasticity [R25.2] 03/05/2020 Hemiparaplegic syndrome ([facility]) [G83.81] 03/05/2020 Hypertension, essential [I10] 03/05/2020 DAVEY (acute kidney injury) (HCC) [N17.9] 05/14/2020 02/08/2021 Hypotension [I95. (more content not included)... Normal [facility] CNPIrma 10-27-2021 CNPN Telephone ([facility]) ELBA DIAZ ([id number]) 1950 F CHT Date Time Provider Department 10/27/21 MARCUS TIERNEY [facility] During your visit today, we recorded the following information about you: Marcus Tierney MD 10/27/2021 3:30 PM Signed I haven't seen patient physically since 05/2020. She needs to come in for appt if wants me to continue to take care of her. I am receiving nursing orders but I can't sign them until she comes in [facility] 10/27/2021 3:37 PM Signed Elba currently in nursing. Spoke with daughter in law tammie whom referred me to contact Mauricio. [facility] for mauricio to call office Allergies [...] 1 TABLET BY MOUTH EVERY DAY - [facility] Blue-Sod Ecdq-OyAzr-Akj (URIBEL) 118-10-40.8-36 mg Take 1 capsule by [...] UTI (u (more content not included)... Normal [facility] Jessica 10-24-2021 CNPN Telephone ([facility]) ELBA DIAZ ([id number]) 1950 F CHT Date Time Provider Department [...] 1 TABLET BY MOUTH EVERY DAY - [facility] Blue-Sod Untn-PfWow-Yll (URIBEL) 118-10-40.8-36 mg Take 1 capsule by [...] repeat in 2 hours if needed - raqzkmb-zwslopmq-ybfqfd ital (FIORINAL) capsule Take 1 capsule by [...] 24 hour tablet (MYRBETRIQ) - [facility] Blue-Sod Nouw-OaDpo-Wcj 118-10-40.8-36 mg cap 1 capsule - rOPINIRole [...] functional mob (more content not included)... Normal [facility] Absolute lymphocyte counton 10-21-2021 Lymphocytes Auto (Unsp spec) [#/Vol] 0.45 10*3/uL 0.83-4.51 [facility] Work Phone: Basophil percentageon 2020 Ammonia (P) [Moles/Vol] 38.0 umol/L [facility] Work Phone: Bilirubin [Mass/Vol] 0.20 mg/dL 0.20-1.00 [facility] Work Phone: Comment on above: For patients on eltr ombopag therapy, use of Dimension [place] TBIL is not recommended. Chloride [Moles/Vol] 107 mmol/L 98-107 [facility] Work Phone: Cholesterol [Mass/Vol] 121 mg/dL <200 [facility] g[facility] Work Phone: Comment on above: <200 mg/dL Desirable 200-240 mg/dL Borderline >240 mg/dL High Risk Eosinophils/100 WBC (Bld) 2.4 % 0-5 [facility] Work Phone: Glucose [Mass/Vol] 101 mg/dL 74-106 [facility] Work Phone: Comment on above: Fasting Glucose resu lt from 100 to 125 mg/dL suggests IMPAIRED HOMEOSTASIS per A.D.A. criteria.Please note revised GLUCOSE reference range effective 2017. Neutrophils (Bld) [#/Vol] 4.6 10*3/uL 2.0-7.7 [facility] Work Phone: Potassium [Moles/Vol] 3.5 mmol/L 3.5-5.1 [facility] Work Phone: Protein [Mass/Vol] 5.8 g/dL 6.4-8.2 [facility] Work Phone: Sodium [Moles/Vol] 139 mmol/L 136-145 [facility] Work Phone: Triglyceride [Mass/Vol] 167 mg/dL [facility] Work Phone: Comment on above: The drugs N-Acetylcy steine and Metamizole may falsely depress this assay.Serum Triglycerides Reference Interval Normal <150 mg/dL Borderline high 150 - 199 mg/dL High 200 - 499 mg/dL Very High > or = 500 mg/dL WBC (Bld) [#/Vol] 5.5 10*3/uL 4.4-11.0 [facility] Work Phone: Blood erythrocytes count (nu mber/volume)on 10-21-2021 RBC (Bld) [#/Vol] 2.09 10*6/uL 4.2-5.4 [facility] Work Phone: Blood hemoglobin measurement (mass/volume)on 10-21-2021 Hemoglobin (Bld) [Mass/Vol] 4.6 g/dL 12.0-15.0 [facility] Work Phone: Comment on above: CRITICAL VALUE VERIF IED. CALLED TO YENNY BROWNING RN AT [facility]10/21/21 1414 Kadi Cardenas.RESULTS READ BACK BY SAME . Blood lymphocytes/100 leukoc yteson 10-21-2021 Lymphocytes/100 WBC (Bld) 8.2 % 19-41 [facility] Work Phone: Blood monocytes/100 leukocyt eson 10-21-2021 Monocytes/100 WBC (Bld) 5.1 % 0-10 [facility] Work Phone: Blood platelet adequacy dete ction by light microscopyon 10-21-2021 Platelets LM Ql (Bld) ADEQUATE ADEQ [facility] Work Phone: Blood platelet mean volumeon 10-21-2021 Platelet mean volume (Bld) [Entitic vol] 9.6 fL 6.2-12.0 [facility] Work Phone: Blood polychromasia detectio n by light microscopyon 10-21-2021 Polychromasia LM Ql (Bld) 1+ [facility] Work Phone: Determination of erythrocyte mean corpuscular volume (MCV)on 10-21-2021 MCV (RBC) [Entitic vol] 78.5 fL 81-99 [facility] Work Phone: Hematocrit Auto (Bld) [Volum e fraction]on 10-21-2021 Hematocrit (Bld) [Volume fraction] 16.4 % 37-47 [facility] Work Phone: Hypochromatic red blood cell detectionon 10-21-2021 Hypochromia Ql (Bld) 3+ [facility] Work Phone: Laboratory - Chemistry and C hemistry - challengeon 10-21-2021 ALP [Catalytic activity/Vol] 51 U/L 45-117 [facility] Work Phone: ALT [Catalytic activity/Vol] 18 U/L 13-56 [facility] Work Phone: CO2 [Moles/Vol] 23.0 mmol/L 21.0-32.0 [facility] Work Phone: Globulin (S) [Mass/Vol] 3.5 g/dL 2.2-4.2 [facility] Work Phone: Urea nitrogen/Creatinine [Mass ratio] 14.6 mg/mg 10-20 [facility] Work Phone: Laboratory - Hematology and Cell countson 10-21-2021 Anisocytosis Ql (Bld) 1+ [facility] Work Phone: Basophils/100 WBC (Unsp spec) 0.2 % 0-1 [facility] Work Phone: Erythrocyte distribution width (RBC) [Entitic vol] 53.7 fL 35.1-43.9 [facility] Work Phone: Erythrocyte distribution width (RBC) [Ratio] 19.4 % 11.6-14.6 [facility] Work Phone: Immature granulocytes/100 WBC (Bld) 1.300 % 0.0-0.9 [facility] Work Phone: Comment on above: IG% - Immature Granu locytes (promyelocytes, myelocytes and metamyelocytes) > 1% indicates that a LEFT SHIFT is Present. MCH (RBC) [Entitic mass] 22.0 pg 27.0-32.0 [facility] Work Phone: Neutrophils/100 WBC (Bld) 82.8 % 47-70 [facility] Work Phone: Nucleated RBC/100 WBC (Bld) [Ratio] 1.3 % 0-5 [facility] Work Phone: MCHC Auto (RBC) [Mass/Vol]on 10-21-2021 MCHC (RBC) [Mass/Vol] 28.0 g/dL 32-36 [facility] Work Phone: No Panel Informationon 10-21 Estimated GFR (MDRD) Amer 109 mL/min >60 [facility] Work Phone: Comment on above: GFR Calc Estimated GFR (MDRD) Non-Af Amer 90 mL/min >60 [facility] Work Phone: Comment on above: Non- GFR Calc Thyroid Stimulating Hormone (TSH) 1.73 uIU/mL 0.358-3.74 [facility] Work Phone: [phone] Valproic Acid (Depakene) Level 43 ug/mL 50-100 [facility] Work Phone: Platelets bldon 10-21-2021 Platelets (Bld) [#/Vol] 160 10*3/uL 150-450 [facility] Work Phone: Review by pathologiston - Pathologist review Charan (Unsp spec) [Interp] Reviewed [facility] Work Phone: Comment on above: Previous reported re sult: Jessie mcguire Edited by: ALONSO on 10/24/21:1435Severe Microcytic anemia.Clinical correlation necessary.Bryson Anaya M.D. 10/24/21 AMENDED REPORT 10/24/21 1435 PATH REV previously reported as: Jessie mcguire Serum or plasma albumin claudette urement (mass/volume)on 10-21-2021 Albumin [Mass/Vol] 2.3 g/dL 3.2-5.0 [facility] Work Phone: [phone] Serum or plasma albumin/glob ulin mass ratioon 10-21-2021 Albumin/Globulin [Mass ratio] 0.7 {ratio} 0.9-2.4 [facility] Work Phone: [phone] Serum or plasma calcium claudette urement (mass/volume)on 10-21-2021 Calcium [Mass/Vol] 7.9 mg/dL 8.5-10.1 [facility] Work Phone: [phone] Serum or plasma cholesterol in HDL measurement (mass/volume)on 10-21-2021 Cholesterol in HDL [Mass/Vol] 50 mg/dL [facility] Work Phone: Comment on above: The drugs N-Acetylcy steine and Metamizole may falsely depress this assay. Reference Range HDL <40 mg/dL Low HDL Cholesterol HDL >or= 60 mg/dL High HDL Cholesterol Serum or plasma cholesterol in VLDL measurement (mass/volume)on 10-21-2021 Cholesterol in VLDL [Mass/Vol] 33 mg/dL 5-40 [facility] Work Phone: [phone] Serum or plasma creatinine m easurement (mass/volume)on 10-21-2021 Creatinine [Mass/Vol] 0.68 mg/dL 0.55-1.02 [facility] Work Phone: Comment on above: The validity of the calculated GFR & GFRAA in patients over 70 years has not been determined. Clinical correlation is essential. Serum or plasma low density lipoprotein (LDL) cholesterol measurement (mass/volume)on 10-21-2021 Cholesterol in LDL [Mass/Vol] 38 mg/dL 0-130 [facility] Work Phone: Serum or plasma urea nitroge n measurement (mass/volume)on 10-21-2021 Urea nitrogen [Mass/Vol] 10 mg/dL 7-18 [facility] Work Phone: Thin prep Papanicolaou smear with manual screeningon 10-21-2021 Thin prep Papanicolaou smear with manual screening 3+ [facility] Work Phone: [phone] Thin prep Papanicolaou smear with manual screening 18 U/L 15-37 [facility] Work Phone: [phone] Thin prep Papanicolaou smear with manual screening 9 5-15 [facility] Work Phone: CNPIrma 10-17-2021 CNPN Telephone ([facility]) LUCIANOELBA LARIOS ([id number]) 1950 F T Date Time Provider Department 10/17/21 MARCUS TIERNEY [facility] During your visit today, we recorded [...] 1 TABLET BY MOUTH EVERY DAY - [facility]-Sod Wfzh-NiYec-Aqe (URIBEL) 118-10-40.8-36 mg Take 1 capsule by [...] repeat in 2 hours if needed - vffkvtt-ghrcgjvs-npaxci ital (FIORINAL) capsule Take 1 capsule by [...] Status:Closed by JOE YOUNGBLOOD on 10/17/21 Normal [facility] CNPIrma 10-11-2021 CNPN Telephone ([facility]) ELBA DIAZ ([id number]) 1950 F T Date Time Provider Department 10/11/21 MARCUS TIERNEY [facility] During your visit today, we recorded the following information about you: Trinity Henderson RN 10/11/2021 9:29 AM Signed Absolute skilled home health form on Dr. 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 Normal [facility] DIAGNOSTIC LTon 08-06-20 [facility] Final Report DATE OF EXAM: Aug 06 2020 1:32PM AAW 0621 - [facility] / PROCEDURE REASON: Abnormal mammogram Physician Interpretation #[id number] - [facility] UNILATERAL LEFT DIGITAL DIAGNOSTIC MAMMOGRAM WITH CAD: 08/06/2020 HISTORY: Abnormal Mammogram\\ Patient returns for abnormal left mammogram. RESULT: TECHNIQUE: The study was acquired using full field digital technology and interpreted from soft copy. Current study was also evaluated with a Computer Aided Detection (CAD). Comparison is made to exams dated: 07/21/2020 mammogram - [facility], 12/31/2017 mammogram, 09/25/2016 mammogram, and 08/07/2013 mammogram - [facility]. There are scattered [...] 1 year screening mammogram is recommended. Nadine soriano/makr:08/06/2020 19:04:55 Attending Technologist(s): Jorge Alberto Johns(R)(M), [facility] Classification And Treatment Director(s): RT Shane(R)(M), [facility] Mammogram BI-RADS: 2 Benign finding Multiple national specialty organizations have released breast cancer screening guidelines for women at average risk for developing breast cancer - guidelines that are based on both evidence and opinion, yet differ on when to start and how often to screen for breast cancer. With representation from Breast Imaging, Internal Medicine, Women's Health, Family Medicine, and Medical/Surgical Oncology, the [facility] has carefully reviewed the data and [...] their providers when to stop screening mammograms. Reinforcing Rod Layer: Mark Transcribe Date/Time: Aug 06 2020 1:27P Dictated by : NADINE DAVILA MD This examination was interpreted and the report reviewed and electronically signed by: NADINE DAVILA MD on Aug 06 2020 7:04PM EST Normal [facility] SLEEP RPTSon 07-23-2020 SLEEP RPTS Patient Name:VICTORIANO DIAZ Admit/Service Date: 07/09/20 Patient Acc#: [id number] Patient MR#: [id number] : 1950 Age: 70 Sex: F Attending [...] compliance. BRENDA/GIORGIO @ 07:18 @ 16:20 # [id number] Carrie Parekh D.O. Electronically Signed Date/Time: 08/17/20 1228 [facility] SLEEP RPTSon 06-07-2020 SLEEP RPTS Patient Name:VICTORIANO DIAZ Admit/Service Date: 05/31/20 Patient Acc#: [id number] Patient MR#: [id number] : 1950 Age: 70 Sex: F Attending [...] hygiene. BRENDA/GIORGIO @ 08:28 @ 11:50 # [id number] Carrie Parekh D.O. Electronically Signed Date/Time: 06/21/20 0958 [facility] CASE MANAGEMon 05-19-2020 CASE MANAGEM HNO ID: [id number] Author: Emmie Hron Service: Care Management Author Type: ? Type: Care Mgt Progress Note Filed: 05/19/2020 11:28 AM Note Text: CARE MANAGEMENT PROGRESS NOTE SERVICE DATE: 05/19/2020 SERVICE TIME: 1010 LOS: 3 days IMM Follow Up Copy Given: Yes Copy given to:: Patient Animal Tech Animal Tech Name/Relationship: Mauricio (son) Method: By Phone SIGNATURE: Emmie Horn PATIENT NAME: Elba Diaz DATE: May 19, 2020 TIME: 11:27 AM PAGER/CONTACT #: [facility] CASE MANAGEM HNO ID: [id number] Author: Yenny BarronRn) MONAE Fuentes Service: Nursing [...] Pt will be doing PT/OT outpatient at [facility] outpatient location. Order in [facility]. RN to give d/c instructions at bedside SIGNATURE: Yenny Fuentes RN PATIENT NAME: Elba Diaz DATE: May 19, 2020 TIME: 10:07 AM PAGER/CONTACT #: [phone] [facility] NURSING PROGon 05-19-2020 NURSING PROG HNO ID: [id number] Author: Maricruz BarronRn) MONAE Vazquez Service: Nursing Author Type: Registered Nurse Type: Nursing Progress Note Filed: 05/19/2020 4:29 AM Note Text: Post Fall Assessment Elba Diaz [id number] Witnessed: No How did fall occur: Getting [...] chair Name of LIP notified: Stew Ferraro SLIPMAN Notify family as appropriate: SonMauricio - attempted call but VM not set up to leave call back number Post fall interventions: Fall Huddle Conducted, Bed Alarm On and My Safety Plan Updated This note was completed by:Maricruz Vazquez RN [facility] PROGRESSon 05-19-2020 PROGRESS HNO ID: [id number] Author: Gutierrez Shannon Service: Hospital Medicine Author Type: Physician Type: Progress Notes Filed: 05/19/2020 9:48 AM Note Text: DEPARTMENT OF HOSPITAL MEDICINE PROGRESS NOTE SERVICE DATE: 05/19/2020 SERVICE TIME: 9:17 AM Hospital Medicine/Primary Attending: Gutierrez Shannon, DO NIGHT AND WEEKEND COVERAGE: After 7pm please page [phone] CHIEF COMPLAINT: I'm ready to go home [...] 2339 -- 05/16/20 2345 pneumatic compression stockings ([place], [place]) 05/16/20 2345 activity - mobilize patient ([place], [place]) Lines, Drains, and Airways Line Peripheral [...] this note may have been generated using TuneGO voice recognition software. Reasonable efforts were made to correct any dictation errors that resulted due to the programming of this software but some may still be present. Normal [facility] PROGRESS HNO ID: [id number] Author: Stew Ferraro APRN.MANISH Service: Hospital Medicine [...] 2020 2:16 AM Stew Ferraro APRN.MANISH [facility] THERAPY NTon 05-19-2020 THERAPY NT HNO ID: [id number] Author: Tammie (Otr/L) Chirag Service: Occupational Therapy Author Type: Occupational Therapist Type: Therapy (PT/OT/Speech/Resp) Filed: 05/19/2020 9:16 AM Note Text: Occupational Therapy Evaluation SERVICE DATE: 05/19/2020 SERVICE TIME: 814 to 837 ROOM: [place] [address] Recommended Discharge Disposition: Outpatient Occupational Therapy Anticipated [...] living (ADL);Muscle Weakness (generalized) Interventions Provided: Evaluation;Self Skilled Nursing Management (29549) $ Evaluation-Low (92506) Billed Units: 1 unit OT Evaluation Low [...] present to affect patient's occupational performance. 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 Will follow-up as able. Chromium Plater Signature: Nancy Barraza, Gita To contact the [facility] Care Department: Please call [phone] or Page the On-Call Chromium Plater at pager [phone] Thank you for the opportunity to be of service. This is an electronically created document. IF PRINTED, PLEASE DO NOT REMOVE FROM THE CHART OR MODIFY PRINTED COPY. Normal [facility] Basic Metabolic Panelon 04-22 Anion gap [Moles/Vol] 11 mmol/L Normal 9-18 [facility] Comment on above: Performed By: #### B MP ####[facility] [place], [place] [address] Calcium [Mass/Vol] 9.2 mg/dL Normal 8.5-10.2 [facility] Comment on above: Performed By: #### B MP ####[facility] [place], [place] [address] Chloride [Moles/Vol] 105 mmol/L Normal 97-105 [facility] Comment on above: Performed By: #### B MP ####[facility] [place], [place] [address] CO2 Blood 23 mmol/L Normal 22-30 [facility] Comment on above: Performed By: #### B MP ####[facility] [place], [place] [address] Creatinine [Mass/Vol] 1.05 mg/dL High 0.58-0.96 [facility] Comment on above: Performed By: #### B MP ####[facility] [place], [place] [address] Glucose [Mass/Vol] 78 mg/dL Normal 74-99 [facility] Comment on above: Result Comment: The [place] Diabetes Association (ADA) provides guidance for cutoff [...] Standards of Medical Care in Diabetes 2016; [place] Diabetes Association. Diabetes Care. 2016;39(Suppl 1). Performed By: #### B MP ####[facility] [place], [place] [address] Potassium [Moles/Vol] 3.6 mmol/L Low 3.7-5.1 [facility] Comment on above: Performed By: #### B MP ####[address] [address] Sodium [Moles/Vol] 139 mmol/L Normal 136-144 [facility] Comment on above: Performed By: #### B MP ####[place] [address] Urea nitrogen [Mass/Vol] 14 mg/dL Normal 7-21 [facility] Comment on above: Performed By: #### B MP ####[address] [address] Hemogramon 05-18-2020 Erythrocyte distribution width (RBC) [Ratio] 13.2 % Normal 11.7-14.4 [facility] Comment on above: Performed By: #### C BC1 ####[address] [address] Hematocrit (Bld) [Volume fraction] 31.7 % Low 34.1-44.9 [facility] Comment on above: Performed By: #### C BC1 ####[address] [address] Hemoglobin (Bld) [Mass/Vol] 10.8 g/dL Low 11.2-15.7 [facility] Comment on above: Performed By: #### C BC1 ####[address] [address] MCH (RBC) [Entitic mass] 33.1 pg High 25.6-32.2 [facility] Comment on above: Performed By: #### C BC1 ####[facility] [place], [place] [address] MCHC (RBC) [Mass/Vol] 34.1 % Normal 31.6-34.8 [facility] Comment on above: Performed By: #### C BC1 ####[facility] [place], [place] [address] MCV (RBC) [Entitic vol] 97.2 fL High 79.4-94.8 [facility] Comment on above: Performed By: #### C BC1 ####[address] [address] Platelet mean volume (Bld) [Entitic vol] 9.5 fL Normal 9.4-12.3 [facility] Comment on above: Performed By: #### C BC1 ####[address] [address] Platelets (Bld) [#/Vol] 205 thou/cmm Normal 182-369 [facility] Comment on above: Performed By: #### C BC1 ####[address] [address] RBC (Bld) [#/Vol] 3.26 mil/cmm Low 3.93-5.22 [facility] Comment on above: Performed By: #### C BC1 ####[address] [address] RDW SD 47.1 fl High 36.4-46.3 [facility] Comment on above: Performed By: #### C BC1 ####[address] [address] WBC (Bld) [#/Vol] 7.08 thou/cmm Normal 3.98-10.04 [facility] Comment on above: Performed By: #### C BC1 ####[address] [address] MDRD GFRon 05-18-2020 GFR/1.73 sq M predicted among non-blacks MDRD (S/P/Bld) [Vol rate/Area] 51.95 mL/min/{1.73_m2} Normal >60mL/min/1. 73m2 [facility] Comment on above: Result Comment: If t he patient is , multiply the result by 1.210. Performed By: #### G #### [facility] [place] [id number] PROGRESSon 05-18-2020 PROGRESS HNO ID: [id number] Author: Leonel Lund Service: Hospital Medicine Author [...] the past and did okay according to vdzqlaee-lo-umf. Patient Checklist Prophylaxis: VTE - Yes Code [...] Sunday. Had long discussion with patient and gmctycqh-zd-rvm who is the main caregiver regarding her [...] by mouth every 12 hours as needed. mutpyvp-nlmyaokd-rkrrwd ital (FIORINAL) capsule Take 1 capsule by [...] Provider, RN, Patient. Leonel Lund MD Pager #[phone] 2:16 PM May 18, 2020 Disclaimer: Portions of this note have been generated using TuneGO voice recognition software. Reasonable efforts were made to correct any dictation errors that resulted due to the programming of this software but some may still be present. Normal [facility] Basic Metabolic Panelon - Anion gap [Moles/Vol] 13 mmol/L Normal 9-18 [facility] Comment on above: Performed By: #### C BCD1 #### [place] [address] Calcium [Mass/Vol] 9.4 mg/dL Normal 8.5-10.2 [facility] Comment on above: Performed By: #### C BCD1 #### [facility] [place], [place] [address] Chloride [Moles/Vol] 101 mmol/L Normal 97-105 [facility] Comment on above: Performed By: #### C BCD1 #### [facility] [place], [place] [address] CO2 Blood 23 mmol/L Normal 22-30 [facility] Comment on above: Performed By: #### C BCD1 #### [facility] [place], [place] [address] Creatinine [Mass/Vol] 0.95 mg/dL Normal 0.58-0.96 [facility] Comment on above: Performed By: #### C BCD1 #### [facility] [place], [place] [address] Glucose [Mass/Vol] 78 mg/dL Normal 74-99 [facility] Comment on above: Result Comment: The [place] Diabetes Association (ADA) provides guidance for cutoff [...] Standards of Medical Care in Diabetes 2016; [place] Diabetes Association. Diabetes Care. 2016;39(Suppl 1). Performed By: #### C BCD1 #### [facility] [place], [place] [address] Potassium [Moles/Vol] 3.5 mmol/L Low 3.7-5.1 [facility] Comment on above: Performed By: #### C BCD1 #### [facility] [place], [place] [address] Sodium [Moles/Vol] 137 mmol/L Normal 136-144 [facility] Comment on above: Performed By: #### C BCD1 #### [facility] [place], [place] [address] Urea nitrogen [Mass/Vol] 14 mg/dL Normal - [facility] Comment on above: Performed By: #### C BCD1 #### [facility] [place], [place] [address] CASE MGT INIT ASSESon 2019 CASE MGT INIT ASSES HNO ID: [id number] Author: Jackelin (Rn) MONAE Barroso Service: Care [...] physical therapy) MEDICAL: [employer] MEDICARE PPO 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 Last discharge within 30 days: No Advance Directive: Current Advance Directive: None Sling Operator Attempted to Assist with AD Completion: Yes [...] Contact Resources: Family Family Name/Phone: Mauricio (son) [phone] Social Needs Food insecurity Worry: Not on [...] Completely I feel financially burdened by my qhv-en-wiwtcu expenses for my prescription medication:: 0 - Disagree Completely Risk Score: 0 Patient is categorized as: Low risk < 2 Are you interested in bedside delivery of your medications? No Is Patient Psychosocially Complex?: No ASSESSMENT AND PLAN: Medical Needs: Medical Needs: None Psychosocial Needs: Psychosocial Needs: None FREEDOM OF CHOICE EXPLAINED: [place] of Choice Given: No Reason Not Given: No placements necessary POTENTIAL TRANSITION PLANS Outpatient Therapy From home w/ son and daughter in law, they help with all activities of daily living, they can still manage to provide care. Patient active with outpatient physical and occupational therapy through [facility]. Plan return home with family assist and outpatient physical and occupational therapy. Will continue to follow. SIGNATURE: Jackelin Barroso RN PATIENT NAME: Elba Diaz DATE: May 17, 2020 TIME: 4:27 PM PAGER/CONTACT #: [phone] [facility] CONSULTon 05-17-2020 CONSULT HNO ID: [id number] Author: Stew Ellison Jr. Service: Neurology Stroke [...] year old female from [place], visiting [place] to get PT and see her son, who presented to the [facility] initially with a chief complaint of [...] TIME: 3:55 PM PAGER/CONTACT #: [phone] [facility] ED NOTEon 05-17-2020 ED NOTE HNO ID: [id number] Author: Alex Tiwari) MONAE Wilson Service: Emergency [...] within reach, Hospital ID band on. [facility] ED NOTE HNO ID: [id number] Author: Alex Tiwari) Steve RN Service: Emergency Medicine Author Type: Registered Nurse Type: ED Notes Filed: 05/16/2020 10:17 PM Note Text: Pt straight cathed 400cc obtained, sample collected [facility] HISTORY PHYSICALon 0 HISTORY PHYSICAL HNO ID: [id number] Author: Elli Levy Service: Hospital Medicine Author Type: Physician Type: HANDP Filed: 05/17/2020 2:34 AM Note Text: DEPARTMENT OF HOSPITAL MEDICINE HISTORY AND PHYSICAL EXAM SERVICE DATE: 05/16/2020 SERVICE TIME: 10:34 PM Primary Care Physician: No primary care provider on file. NIGHT AND WEEKEND COVERAGE: [place] COVERAGE: From 7am - 7pm, please call admit After 7pm, please call cross cover pager #[phone] Subjective CHIEF COMPLAINT: convulsions HPI: This is [...] TIME: 10:34 PM PAGER/CONTACT #: admit [phone] [phone] [facility] Hemogramon 05-17-2020 Erythrocyte distribution width (RBC) [Ratio] 13.0 % Normal 11.7-14.4 [facility] Comment on above: Performed By: #### C BCD1 #### [place] [address] Hematocrit (Bld) [Volume fraction] 32.5 % Low 34.1-44.9 [facility] Comment on above: Performed By: #### C BCD1 #### [place] [address] Hemoglobin (Bld) [Mass/Vol] 11.0 g/dL Low 11.2-15.7 [facility] Comment on above: Performed By: #### C BCD1 #### [place] [address] MCH (RBC) [Entitic mass] 32.6 pg High 25.6-32.2 [facility] Comment on above: Performed By: #### C BCD1 #### [place] [address] MCHC (RBC) [Mass/Vol] 33.8 % Normal 31.6-34.8 [facility] Comment on above: Performed By: #### C BCD1 #### [address] [place], [place] [address] MCV (RBC) [Entitic vol] 96.4 fL High 79.4-94.8 [facility] [place] Comment on above: Performed By: #### C BCD1 #### [facility] [address] [place], [place] [address] Platelet mean volume (Bld) [Entitic vol] 9.8 fL Normal 9.4-12.3 [facility] Comment on above: Performed By: #### C BCD1 #### [facility] [address] [place], [place] [address] Platelets (Bld) [#/Vol] 212 thou/cmm Normal 182-369 [facility] Comment on above: Performed By: #### C BCD1 #### [facility] [address] [place], [place] [address] RBC (Bld) [#/Vol] 3.37 mil/cmm Low 3.93-5.22 [facility] Comment on above: Performed By: #### C BCD1 #### [facility] [address] [place] [address] RDW SD 46.5 fl High 36.4-46.3 [facility] Comment on above: Performed By: #### C BCD1 #### [facility] [address] [place], [place] [address] WBC (Bld) [#/Vol] 8.13 thou/cmm Normal 3.98-10.04 [facility] Comment on above: Performed By: #### C BCD1 #### [facility] [address] [place] [address] Lipid Profile, [facility] 05-17 Cholesterol [Mass/Vol] 232 mg/dL High 0-199 [facility] Comment on above: Result Comment: Tota l Cholesterol < 200 mg/dL, Desirable Total Cholesterol 200 to 239 mg/dL, Borderline high Total Cholesterol > 239 mg/dL, High Performed By: #### C BCD1 #### [place] [address] Cholesterol in HDL [Mass/Vol] 79 mg/dL Normal [facility] Comment on above: Result Comment: Refe rence Range: HDL Cholesterol 40- 59 mg/dL, Acceptable HDL Cholesterol >59 mg/dL, High; Negative risk factor for coronary heart disease HDL Cholesterol <40 mg/dL, Low; Positive risk factor for coronary heart disease Performed By: #### C BCD1 #### [place] [address] Cholesterol in LDL [Mass/Vol] 128 mg/dL High 0-99 [facility] Comment on above: Result Comment: LDL Cholesterol < 100 mg/dL, Optimal LDL Cholesterol 100 to 129 mg/dL, Near optimal/above optimal LDL Cholesterol 130 to 159 mg/dL, Borderline high LDL Cholesterol 160 to 189 mg/dL, High LDL Cholesterol > 189 mg/dL, Very high Secondary prevention optimal LDL Cholesterol levels are recommended to be < 70 mg/dL Performed By: #### C BCD1 #### [place] [address] Cholesterol in LDL/Cholesterol in HDL [Mass ratio] 1.62 Normal 0.00-2.53 [facility] Comment on above: Performed By: #### C BCD1 #### [place] [address] Cholesterol.total/Blessing sterol in HDL [Mass ratio] 2.94 {ratio} Normal 0.00-5.09 [facility] Comment on above: Performed By: #### C BCD1 #### [place] [address] Non-HDL Cholesterol 153 mg/dL High 0-129 [facility] Comment on above: Result Comment: Non [...] mg/dL Performed By: #### C BCD1 #### [place] [address] Triglyceride Blood 127 mg/dL Normal 0-149 [facility] Comment on above: Result Comment: Trig lycerides < 150 mg/dL, Normal Triglycerides 150 to 199 mg/dL, Borderline high Triglycerides 200 to 499 mg/dL, High Triglycerides > 499 mg/dL, Very high Performed By: #### C BCD1 #### [facility] [address] [place], [place] [address] VLDL Cholesterol 25 mg/dL Normal 0-29 [facility] Comment on above: Performed By: #### C BCD1 #### [facility] [address] [place], [place] [address] Magnesium Bloodon 05-17-2020 Magnesium [Mass/Vol] 2.1 mg/dL Normal 1.7-2.3 [facility] Comment on above: Performed By: #### C BCD1 #### [facility] [address] [place], [place] [address] PROGRESSon 05-17-2020 PROGRESS HNO ID: [id number] Author: Leonel Lund Service: Hospital Medicine Author [...] after being treated for UTI and dehydration. Wsumikth-xb-[id number] was concerned that patient was having some [...] Provider, RN, Patient. Leonel Lund MD Pager #[phone] 11:18 AM May 17, 2020 Disclaimer: Portions of this note have been generated using TuneGO voice recognition software. Reasonable efforts were made to correct any dictation errors that resulted due to the programming of this software but some may still be present. Normal [facility] Phosphorous Bloodon 05-17-20 20 Phosphate [Mass/Vol] 2.2 mg/dL Low 2.7-4.8 [facility] Comment on above: Performed By: #### C BCD1 #### [address] [address] Rapid, COVID 19on 05-17-2020 Rapid, COVID 19 Negative Normal Negative [facility] Comment on above: Result Comment: This test has been authorized by the FDA under an Emergency Use Authorization (EUA). Performed By: #### C BCD1 #### [facility] [address] [place], [place] [address] THERAPY NTon 05-17-2020 THERAPY NT HNO ID: [id number] Author: Dina (Screen Printing Stencil Preparer) TRUNG Hidalgo/MANAGER COSMETICS Service: Speech/Swallow Author Type: Speech Language Pathologist Type: Therapy (PT/OT/Speech/Resp) Filed: 05/17/2020 3:21 PM Note Text: Speech Therapy Clinical Swallow Evaluation SERVICE DATE: 05/17/2020 SERVICE TIME: 1430 to 1502 ROOM: [id number] Nursing Recommendations: Reinforce use of swallowing strategies [...] oral phase Interventions Provided: Clinical Swallow Evaluation (56921) $ Clinical Swallow Evaluation (76208) Billed Units: 1 unit Total Treatment Time [...] for this therapy evaluation/treatment. SIGNATURE: Dina Hidalgo CCC-MANAGER COSMETICS PATIENT NAME: Elba Diaz DATE: May 17, 2020 TIME: 3:13 PM [facility] THERAPY NT HNO ID: [id number] Author: Cristopher (Pt) JHONNY Elkins Service: Physical Therapy Author Type: Physical Therapist Type: Therapy (PT/OT/Speech/Resp) Filed: 05/17/2020 1:28 PM Note Text: Physical Therapy Evaluation SERVICE DATE: 05/17/2020 SERVICE TIME: 1147 to 1212 ROOM: [place] [address] Recommended Discharge Disposition: Outpatient Physical Therapy Recommended [...] Reduced mobility-other Interventions Provided: Evaluation $ Evaluation-Moderate (54230) Billed Units: 1 unit History and examination [...] May 17, 2020 TIME: 1:25 PM [facility] Urinalysis Routineon 020 Bacteria LM.HPF (Urine sed) [#/Area] NONE Normal None [facility] Comment on above: Performed By: #### C BCD1 #### [address] [place] [address] Ep Cells Urine 2.0 /hpf Normal 0.0-5.0 [facility] Comment on above: Performed By: #### C BCD1 #### [facility] [address] [place] [address] Hyaline Cast 0.3 /lpf Normal 0.0-1.0 [facility] Comment on above: Performed By: #### C BCD1 #### [facility] [address] [place] [address] RBC LM.HPF (Urine sed) [#/Area] 3.5 /[HPF] Normal 0.0-5.0 [facility] Comment on above: Performed By: #### C BCD1 #### [facility] [address] [place] [address] WBC LM.HPF (Urine sed) [#/Area] 2.4 /[HPF] Normal 0.0-5.0 [facility] Comment on above: Performed By: #### C BCD1 #### [facility] [address] [place] [address] Appearance (U) CLEAR Normal [facility] Comment on above: Performed By: #### C BCD1 #### [place] [address] Bilirubin (U) [Mass/Vol] Negative Normal Negative [facility] Comment on above: Performed By: #### C BCD1 #### [place] [address] Color (U) YELLOW Normal [facility] Comment on above: Performed By: #### C BCD1 #### [place] [address] Glucose Ql (U) Negative Normal Negative [facility] Comment on above: Performed By: #### C BCD1 #### [place] [address] Hemoglobin,Urine Negative Normal Negative [facility] Comment on above: Performed By: #### C BCD1 #### [place] [address] Ketone Urine Negative Normal Negative [facility] Comment on above: Performed By: #### C BCD1 #### [facility] [address] [place], [place] [address] Leukocytes Esterase Negative Normal Negative [facility] Comment on above: Performed By: #### C BCD1 #### [facility] [address] [place], [place] [address] Nitrites Urine Negative Normal Negative [facility] Comment on above: Performed By: #### C BCD1 #### [facility] [address] [place] [address] pH (U) 6.5 [pH] Normal 5.0-8.0 [facility] Comment on above: Performed By: #### C BCD1 #### [facility] [address] [place] [address] Protein (U) [Mass/Vol] 100 mg/dL Abnormal Negative [facility] Comment on above: Performed By: #### C BCD1 #### [facility] [address] [place] [address] Specific Eva, Ur 1.017 Normal 1.005-1.030 [facility] Comment on above: Performed By: #### C BCD1 #### [facility] [address] [place] [address] Urobilinogen,Ur 0.2 EU/dL Normal 0.2-1.0 [facility] Comment on above: Performed By: #### C BCD1 #### [facility] [address] [place] [address] Acetaminophenon 05-16-2020 Acetaminophen [Mass/Vol] <5 Low 10-30 [facility] Comment on above: Result Comment: Toxi c >150 ug/mL 4 hours post ingestion. The Salvatore Shirley nomogram can be used to estimate the probability of hepatotoxicity via the relationship of plasma acetaminophen concentration to the post ingestion interval. (Noni. Pediatrics. 1975. 55:871 to 876 and Salvatore et al. Arch Rustic Fence Builder Med. 1981. 141:380 to 385). Reference ranges and high/low indicator flags are provided as general guidelines only. The treating physician must determine appropriate target levels/dosing based on the specific clinical situation. Performed By: #### C BCD1 #### [facility] [address] [place], [place] [address] Alcohol, Serumon 05-16-2020 Alcohol, Serum <11.0 Normal < 11 [facility] Comment on above: Performed By: #### A LCO3 #### [facility] [address] [place], [place] [address] CT BRAIN WO IVCONon 05-16-[address] BRAIN WO IVCON Final Report DATE OF EXAM: May 16 2020 7:26PM [facility] 0504 - CT BRAIN WO [...] base and imaged soft tissues are unremarkable. Blind Hooker (topogram) images: Unremarkable. IMPRESSION: No acute intracranial abnormality is identified. 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 Reinforcing Rod [facility] Transcribe Date/Time: May 16 2020 7:27P Dictated by : BAILEE OROSCO MD This examination was interpreted and the report reviewed and electronically signed by: BAILEE OROSCO MD on May 16 2020 7:30PM EST Normal [facility] Comprehensive Metabolic Pane manan 05-16-2020 Albumin [Mass/Vol] 4.5 g/dL Normal 3.9-4.9 [facility] Comment on above: Performed By: #### C MP #### [facility] [address] [place], [place] [address] ALP [Catalytic activity/Vol] 108 U/L Normal 34-123 [facility] Comment on above: Performed By: #### C MP #### [facility] [address] [place], [place] [address] ALT [Catalytic activity/Vol] 61 U/L High 7-38 [facility] Comment on above: Performed By: #### C MP #### [facility] [address] [place] [address] Anion gap [Moles/Vol] 16 mmol/L Normal 9-18 [facility] Comment on above: Performed By: #### C MP #### [facility] [address] [place] [address] AST [Catalytic activity/Vol] 49 U/L High 13-35 [facility] Comment on above: Performed By: #### C MP #### [facility] [address] [place] [address] Bilirubin [Mass/Vol] 0.2 mg/dL Normal 0.2-1.3 [facility] Comment on above: Performed By: #### C MP #### [facility] [address] [place] [address] Calcium [Mass/Vol] 9.6 mg/dL Normal 8.5-10.2 [facility] Comment on above: Performed By: #### C MP #### [facility] [address] [place] [address] Chloride [Moles/Vol] 98 mmol/L Normal 97-105 [facility] Comment on above: Performed By: #### C MP #### [facility] [address] [place] [address] CO2 Blood 23 mmol/L Normal 22-30 [facility] Comment on above: Performed By: #### C MP #### [facility] [address] [place] [address] Creatinine [Mass/Vol] 0.99 mg/dL High 0.58-0.96 [facility] Comment on above: Performed By: #### C MP #### [facility] [address] [place] [address] Glucose [Mass/Vol] 119 mg/dL High 74-99 [facility] Comment on above: Result Comment: The [place] Diabetes Association (ADA) provides guidance for cutoff [...] Standards of Medical Care in Diabetes 2016; [place] Diabetes Association. Diabetes Care. 2016;39(Suppl 1). Performed By: #### C MP #### [place] [address] Potassium [Moles/Vol] 3.6 mmol/L Low 3.7-5.1 [facility] Comment on above: Performed By: #### C MP #### [place] [address] Protein [Mass/Vol] 7.5 g/dL Normal 6.3-8.0 [facility] Comment on above: Performed By: #### C MP #### [place] [address] Sodium [Moles/Vol] 137 mmol/L Normal 136-144 [facility] Comment on above: Performed By: #### C MP #### [place] [address] Urea nitrogen [Mass/Vol] 14 mg/dL Normal 7-21 [facility] Comment on above: Performed By: #### C MP #### [place] [address] ED NOTEon 05-16-2020 ED NOTE HNO ID: [id number] Author: Alex BarronRnDesmond Wilson RN Service: Emergency Medicine Author Type: Registered Nurse Type: ED Notes Filed: 05/16/2020 8:19 PM Note Text: Pt placed on bed lara [facility] ED NOTE HNO ID: [id number] Author: Alex Wilson RN Service: Emergency Medicine Author Type: Registered Nurse Type: ED Notes Filed: 05/16/2020 8:02 PM Note Text: Normal [facility] ED NOTE HNO ID: [id number] Author: Alex Wilson RN Service: Emergency Medicine Author Type: Registered Nurse Type: ED Notes Filed: 05/16/2020 8:02 PM Note Text: Son at bedside [facility] ED NOTE HNO ID: [id number] Author: Alex Wilson RN Service: Emergency Medicine Author Type: Registered Nurse Type: ED Notes Filed: 05/16/2020 7:20 PM Note Text: Pt to radiology [facility] ED NOTE HNO ID: [id number] Author: Alex Wilson RN Service: Emergency Medicine Author Type: Registered Nurse Type: ED Notes Filed: 05/16/2020 7:17 PM Note Text: ED CT and xray notified [facility] ED NOTE HNO ID: [id number] Author: Alex Wilson RN Service: Emergency Medicine Author Type: Registered Nurse Type: ED Notes Filed: 05/16/2020 7:10 PM Note Text: Dr Thompson in to assess pt [facility] ED NOTE HNO ID: [id number] Author: Elmira Mehta (Medic) Service: ? Author Type: Dixonac Operator and Healthcare Analyst Type: ED Notes Filed: 05/16/2020 6:49 PM Note Text: Bed: 14-ED Expected date: 05/16/20 Expected time: 6:39 PM Means of arrival: [place] FD Comments: Poss. Seizure Med 10 [facility] ED PROV NOTEon 05-16-2020 ED PROV NOTE HNO ID: [id number] Author: Meenu Thompson MD Service: Emergency Medicine [...] condition. Meenu Thompson MD 05/16/20 1938 Normal [facility] ED PROV NOTE HNO ID: [id number] Author: Meenu Thompson MD Service: Emergency Medicine [...] states that the patient was admitted to [facility] on Sunday for UTI and low [...] was sure that she was admitted to [facility] due to her lack of records, [...] states that the patient was admitted to [facility] on Sunday for UTI and low [...] was sure that she was admitted to [facility] due to her lack of records, [...] C Ramon (Res) DO Ralph Lindsay 05/16/20 5010 Attending Note I evaluated the patient and personally participated in the holm components. I agree with the resident's findings and plan as documented and have discussed the case and management of the patient's care with the resident. Signature: Meenu Thompson MD Date: 05/16/2020 Time: 11:37 PM Meenu Thompson MD 05/16/20 6654 Normal [facility] Glucose Meteron 05-16-2020 Glucose [Mass/Vol] 125 mg/dL High 70-99 [facility] Comment on above: Performed By: #### G LMET #### [address] [address] Hemogram/Diffon 05-16-2020 Abs Immature Grans 0.05 thou/cmm Normal 0.00-0.05 [facility] Comment on above: Performed By: #### C BCD1 #### [address] [address] Abs Neut (ANC) 8.20 thou/cmm High 1.56-6.13 [facility] Comment on above: Performed By: #### C BCD1 #### [address], [place] [address] Abs. Baso 0.03 thou/cmm Normal 0.01-0.08 [facility] Comment on above: Performed By: #### C BCD1 #### [facility] [address] [place] [address] Abs. [place] 0.40 thou/cmm Normal 0.27-0.70 [facility] Comment on above: Performed By: #### C BCD1 #### [facility] [address] [place] [address] Basophils/100 WBC (Bld) 0.3 % Normal [facility] Comment on above: Performed By: #### C BCD1 #### [facility] [address] [place] [address] Eosinophils (Bld) [#/Vol] 0.03 thou/cmm Normal 0.00-0.31 [facility] Comment on above: Performed By: #### C BCD1 #### [facility] [address] [place] [address] Eosinophils/100 WBC (Bld) 0.3 % Normal [facility] Comment on above: Performed By: #### C BCD1 #### [facility] [address] [place] [address] Erythrocyte distribution width (RBC) [Ratio] 13.1 % Normal 11.7-14.4 [facility] Comment on above: Performed By: #### C BCD1 #### [facility] [address] [place] [address] Hematocrit (Bld) [Volume fraction] 36.3 % Normal 34.1-44.9 [facility] Comment on above: Performed By: #### C BCD1 #### [facility] [address] [place] [address] Hemoglobin (Bld) [Mass/Vol] 12.3 g/dL Normal 11.2-15.7 [facility] Comment on above: Performed By: #### C BCD1 #### [place] [address] Immature Grans 0.50 % Normal [facility] Comment on above: Performed By: #### C BCD1 #### [facility] [address] [place], [place] [address] Lymphocytes (Bld) [#/Vol] 1.77 thou/cmm Normal 1.18-3.74 [facility] Comment on above: Performed By: #### C BCD1 #### [facility] [address] [place], [place] [address] Lymphocytes/100 WBC (Bld) 16.9 % Normal [facility] Comment on above: Performed By: #### C BCD1 #### [facility] [address] [place], [place] [address] MCH (RBC) [Entitic mass] 32.7 pg High 25.6-32.2 [facility] Comment on above: Performed By: #### C BCD1 #### [facility] [address] [place], [place] [address] MCHC (RBC) [Mass/Vol] 33.9 % Normal 31.6-34.8 [facility] Comment on above: Performed By: #### C BCD1 #### [facility] [address] [place], [place] [address] MCV (RBC) [Entitic vol] 96.5 fL High 79.4-94.8 [facility] [place] Comment on above: Performed By: #### C BCD1 #### [facility] [address] [place], [place] [address] Monocytes/100 WBC (Bld) 3.8 % Normal [facility] Comment on above: Performed By: #### C BCD1 #### [facility] [address] [place], [place] [address] Platelet mean volume (Bld) [Entitic vol] 9.8 fL Normal 9.4-12.3 [facility] Comment on above: Performed By: #### C BCD1 #### [facility] [address] [place], [place] [address] Platelets (Bld) [#/Vol] 249 thou/cmm Normal 182-369 [facility] Comment on above: Performed By: #### C BCD1 #### [facility] [address] [place], [place] [address] RBC (Bld) [#/Vol] 3.76 mil/cmm Low 3.93-5.22 [facility] Comment on above: Performed By: #### C BCD1 #### [facility] [address] [place] [address] RDW SD 46.2 fl Normal 36.4-46.3 [facility] Comment on above: Performed By: #### C BCD1 #### [facility] [address] [place] [address] Seg Neutrophil 78.2 % Normal [facility] Comment on above: Performed By: #### C BCD1 #### [facility] [address] [place] [address] WBC (Bld) [#/Vol] 10.49 thou/cmm High 3.98-10.04 [facility] Comment on above: Performed By: #### C BCD1 #### [facility] [address] [place] [address] Protimeon 05-16-2020 INR Coag (PPP) [Relative time] 0.96 {INR} Normal 0.90-1.30 [facility] Comment on above: Result Comment: Saundra min K Antagonist (VKA) Therapeutic Range: INR 2 to 3 (Target INR of 2.5) Note: For patients treated with VKA drugs, such as warfarin, the [place] [employer] 2012 Guideline recommends [...] [phone] Performed By: #### P T #### [place] [address] PT Coag (PPP) [Time] 10.4 s Normal 9.7-13.0 [facility] Comment on above: Performed By: #### P T #### [place] [address] Salicylateon 05-16-2020 Salicylate <1.0 Low 3.0-30.0 [facility] Comment on above: Result Comment: The therapeutic range varies and has been reported to be 3.0 to 10.0 mg/dL for anti-pyretic/analgesic conditions and 15.0 to 30.0 mg/dL for anti-inflammatory/rheumatic fever conditions. Ranges published by the instrument farm service consultant. Reference ranges and high/low indicator flags are provided as general guidelines only. The treating physician must determine appropriate target levels/dosing based on the specific clinical situation. Performed By: #### C BCD1 #### [place] [address] Troponin T, High Sens.on Troponin T, High Sens. 17 ng/L High 0-11 [facility] Comment on above: Result Comment: Faiza ents [...] result. Performed By: #### T ROPT #### [place] [address] Urine Drug Screenon 05-16-20 20 Urine Alcohol <11 Normal 0-11 [facility] Comment on above: Performed By: #### C BCD1 #### [place] [id number] Urine Amphetamine Negative Normal NEGATIVE [facility] Comment on above: Performed By: #### C BCD1 #### [place] [address] Urine Barbiturates Negative Normal NEGATIVE [facility] Comment on above: Performed By: #### C BCD1 #### [facility] [address] [place], [place] [address] Urine Benzodiazepine Negative Normal NEGATIVE [facility] Comment on above: Performed By: #### C BCD1 #### [facility] [address] [place], [place] [address] Urine Cocaine Metab Negative Normal NEGATIVE [facility] Comment on above: Performed By: #### C BCD1 #### [facility] [address] [place], [place] [address] Urine Opiates Negative Normal NEGATIVE [facility] Comment on above: Performed By: #### C BCD1 #### [facility] [address] [place], [place] [address] Urine Oxycodone Negative Normal NEGATIVE [facility] Comment on above: Performed By: #### C BCD1 #### [facility] [address] [place], [place] [address] Urine PCP Negative Normal NEGATIVE [facility] Comment on above: Result Comment: Test [...] the same specimen through the laboratory at ([phone]) if contacted within 48 hours of initial 1. Substance Abuse and Mental Health Services Administration (2012). Clinical Drug Testing in Primary Care Technical Assistance Publication Series 32. Department of Health and Human Services, [place], p.10. Performed By: #### C BCD1 #### [facility] [address] [place], [place] [address] Urine THC Negative Normal NEGATIVE [facility] Comment on above: Performed By: #### C BCD1 #### [facility] [address] [place], [place] [address] XR CHEST 2V FRONTAL/LATon XR CHEST 2V [...] Unremarkable. IMPRESSION: No definite acute radiographic abnormality. Reinforcing Rod Layer: PSCB Transcribe Date/Time: May 16 2020 7:42P Dictated by : ROSY VALDEZ MD This examination was interpreted and the report reviewed and electronically signed by: ROSY VALDEZ MD on May 16 2020 7:43PM EST Normal [facility] CT ANGIOGRAPHY NECK W/CONTRA STon 04-06-2020 [...] Date: 04/06/2020 9:19:23 AM Ordering Provider:Michael Castanon Formerly [facility] ([place]) Culture, urine Bacteria identified Cx Nom (U) Yeast, not Karen albicans [facility] Work Phone: Vital Signs Date Time Vital Sign Value Performing Clinician Facility 08-20-2025 14:31-0400 Body height 152 cm Crystal Key [employer] Work Phone: [facility] 08-20-2025 14:31-0400 Body height 152.4 cm Crystal Key [employer] TE[employer] Work Phone: [facility] 08-20-2025 14:31-0400 Body mass index (BMI) [Ratio] 31.36 kg/m2 Crystal Patelmer [employer] TE[employer] Work Phone: [facility] [place] 08-20-2025 14:31-0400 Body weight 73 kg Crystal Zeyadhammer BLIND TE[employer]IPMAN Work Phone: [facility] [place] 08-20-2025 14:31-0400 Body weight 72.58 kg Crystal Jeffershammer BLIND TEACHER[employer]IPMAN Work Phone: [facility] [place] 08-20-2025 14:31-0400 BP SITE #1 Crystal Patelmer BLIND TE[employer]ER[employer]IPMAN Work Phone: [facility] 08-20-2025 14:31-0400 Diastolic blood pressure 75 mm[Hg] Crystal Jeffershammer BL[employer] TE[employer] Work Phone: [facility] 08-20-2025 14:31-0400 Heart rate 80 /min Crystal Patelmer BL[employer] TE[employer]ER[employer] Work Phone: [facility] 08-20-2025 14:31-0400 HGHTCHNVIS Crystalashley Jeffershammer BL[employer] TEACHER[employer]MAN Work Phone: [facility] 08-20-2025 14:31-0400 Systolic blood pressure 118 mm[Hg] Crystal Patelmer BLIND TEACHER[employer]IPMAN Work Phone: [facility] 08-20-2025 14:31-0400 VITALSDONE Crystal Jeffershammer BL[employer] TE[employer]ER[employer]MAN Work Phone: [facility] [place] 05-26-2025 10:04-0400 Body height 160 cm Paty Fonseca BL[employer] TEACHER[employer]IPMAN Work Phone: [facility] [place] 05-26-2025 10:04-0400 Body height 160.02 cm Paty Fonseca [employer] TE[employer]ER[employer]MAN Work Phone: [facility] 05-26-2025 10:04-0400 Body mass index (BMI) [Ratio] 30.22 kg/m2 Paty Fonseca [employer] TE[employer]ER[employer] Work Phone: [facility] 05-26-2025 10:04-0400 Body weight 77 kg Paty Fonseca BL[employer] TE[employer] Work Phone: [facility] 05-26-2025 10:04-0400 Body weight 77.11 kg Paty Fonseca [employer] Work Phone: [facility] 05-26-2025 10:04-0400 BP SITE #1 Paty Fonseca [employer] Work Phone: [facility] 05-26-2025 10:04-0400 Diastolic blood pressure 80 mm[Hg] Paty Sarahmarlee BL[employer] TE[employer]ER[employer]IPMAN Work Phone: [facility] 05-26-2025 10:04-0400 Heart rate 81 /min Paty Sarahmarlee [employer] TE[employer] Work Phone: [facility] 05-26-2025 10:04-0400 HGHTCHNVIS Paty Fonseca BL[employer] TE[employer]ER[employer]MAN Work Phone: [facility] 05-26-2025 10:04-0400 Systolic blood pressure 130 mm[Hg] Paty Smithmarlee BLIND TEACHER[employer]IPMAN Work Phone: [facility] 05-26-2025 10:04-0400 VITALSDONE Paty Fonseca BL[employer] TE[employer]ER[employer]IPMAN Work Phone: [facility] 03-25-2025 09:37-0400 Diastolic blood pressure 56 mm[Hg] Stew Oswald MD Work Phone: [facility] 03-25-2025 09:37-0400 Heart rate 51 /min Stew Oswald MD Work Phone: [facility] 03-25-2025 09:37-0400 Systolic blood pressure 90 mm[Hg] Stew Oswald MD Work Phone: [facility] 02-06-2025 08:58-0400 Diastolic blood pressure 85 mm[Hg] Stew Oswald MD Work Phone: [facility] 02-06-2025 08:58-0400 Heart rate 84 /min Stew Oswald MD Work Phone: [facility] 02-06-2025 08:58-0400 Systolic blood pressure 134 mm[Hg] Stew Oswald MD Work Phone: [facility] Encounters Encounter Date Encounter Type Care Provider Facility Start: 08-27-2025 ambulatory Robb ROB Facil ity:[facility] Start: 08-24-2025 ambulatory Robb ROB Facil ity:[facility] Start: 08-20-2025 Visit out of hours Crystal ochoa BLIND TEACHER[employer]SLIPMAN Work Phone: [employer] Work Phone: Start: 08-20-2025 In-person encounter Crystal Key BLIND TEACHER-SLIPMAN Work Phone: [facility] Work Phone: Start: 07-22-2025 ambulatory Robb ROB Facil ity:[facility] Start: 07-22-2025 Registered Referred Robb Moses [facility] [place] [address] Start: 07-09-2025 End: 07-10-2025 Telephone encounter Stew Oswald MD Work Phone: [facility] Clinical Communication Comment on above: Med Refill Start: 06-23-2025 ambulatory Robb ROB Facil ity:[facility] Start: 06-23-2025 Registered Referred Robb Barnes -[place] [place] [address] Start: 06-17-2025 End: 06-17-2025 ambulatory Robb ROB -[facility] [place] - [address] Start: 06-17-2025 End: 06-17-2025 Departed Referred Robb Barnes -[place] - [address] Start: 06-17-2025 End: 06-17-2025 ambulatory Robb ROB Facility:[facility] Start: 05-26-2025 In-person encounter Paty Fonseca BL[employer] TE[employer]ER[employer]IPMAN Work Phone: [facility] [place] Work Phone: Start: 05-26-2025 Visit out of hours Paty Fonseca BL[employer] TE[employer]ER[employer]IPMAN Work Phone: [employer] Work Phone: Start: 04-01-2025 ambulatory Robb ROB [facility] ity:[facility] Start: 04-01-2025 Registered Referred Robb Stephany -[facility] [place] - [address] Start: 03-25-2025 End: 03-25-2025 Office outpatient visit 15 minutes Stew Oswald MD Work Phone: [facility] Comment on above: Focal epilepsy with impairment of consciousness, intractable (HCC) (Primary Dx); Carotid stenosis, symptomatic, with infarction (HCC); Hemiparesis affecting left side as late effect of cerebrovascular accident (CVA) (HCC) Start: 03-25-2025 End: 03-25-2025 ambulatory [facility] Start: 03-06-2025 End: 03-06-2025 ambulatory Robb ROB [facility] Work Phone: Start: 03-06-2025 End: 03-06-2025 Departed Referred Robb Rezamayra Mont[place] - [address] Start: 03-06-2025 End: 03-06-2025 ambulatory Robb ROB Facility:[facility] Start: 02-12-2025 End: 02-12-2025 ambulatory [facility] Start: 02-10-2025 End: 02-10-2025 Telephone encounter Stew Oswald MD Work Phone: [facility] Start: 02-06-2025 End: 02-06-2025 Office outpatient new 60 minutes Stew Oswald MD Work Phone: [facility] Comment on above: Focal epilepsy with impairment of consciousness, intractable (HCC) (Primary Dx); Carotid stenosis, symptomatic, with infarction (HCC); Hemiparesis affecting left side as late effect of cerebrovascular accident (CVA) (HCC) Start: 02-06-2025 End: 02-06-2025 ambulatory STEW OSWALD [facility] Start: 01-14-2025 End: 01-14-2025 ambulatory Robb ROB [facility] Work Phone: Start: 01-14-2025 End: 01-14-2025 Departed Referred Robb Barnes -[facility] [place] - [address] Start: 01-14-2025 End: 01-14-2025 ambulatory Robb ROB Facility:[facility] Start: 01-09-2025 End: 01-13-2025 Evaluation and management of inpatient ELIA ICKES II Facility:[facility] Start: 01-01-2025 End: 01-15-2025 Telephone encounter Stew Oswald MD Work Phone: [facility] Comment on above: Appointment Request Start: 12-31-2024 ambulatory Robb ROB Facil ity:[facility] Start: 12-31-2024 Registered Referred Robb pyle [place] - [address] Start: 12-30-2024 Registered Referred Robb Moses [facility] [place] - [address] Start: 12-30-2024 End: 12-30-2024 ambulatory Robb ROB Facility:[facility] Start: 12-24-2024 ambulatory [facility] Facility:[facility] Start: 12-24-2024 Registered Referred [facility] -[facility] [place] - [address] Start: 12-22-2024 ambulatory Robb ROB Facil ity:[facility] Start: 12-22-2024 Registered Referred Robb Moses [place] [place] - [address] Start: 12-14-2024 Emergency department patient visit ELIA ICKES II Facility:[facility] Start: 11-27-2024 ambulatory Robb ROB Facil ity:[facility] Start: 11-27-2024 Registered Referred Robb Barnes -[facility] [place] - [address] Start: 10-27-2024 Registered [facility] [place] [facility] [address] Start: 10-27-2024 End: 10-27-2024 ambulatory Robb ROB Facility:[facility] Start: 12-24-2023 End: 12-24-2023 ambulatory [facility] Work Phone: Start: 12-24-2023 End: 12-24-2023 [facility]arted Ref[facility] [place] [facility] [address] Start: 11-13-2023 End: 11-13-2023 ambulatory [facility] Work Phone: Start: 11-13-2023 End: 11-13-2023 Departed Referred [facility] [place] - [address] Start: 11-13-2023 Registered Referred [facility] [place] - [address] Start: 11-08-2023 End: 11-08-2023 ambulatory [facility] Work Phone: Start: 11-08-2023 End: 11-08-2023 Departed Referred [facility] [place] - [address] Start: 08-24-2023 End: 08-24-2023 ambulatory [facility] Work Phone: Start: 08-24-2023 End: 08-24-2023 Departed Referred [facility] [place] - [address] Start: 08-03-2023 End: 08-03-2023 ambulatory [facility] Work Phone: Start: 08-03-2023 End: 08-03-2023 Departed Referred [facility] [place] - [address] Start: 06-07-2023 End: 06-07-2023 Departed Referred [facility] [place] - [address] Start: 03-20-2023 End: 03-20-2023 ambulatory [facility] Work Phone: Start: 03-20-2023 End: 03-20-2023 Departed Referred [facility] [place] - [address] Start: 01-04-2023 End: 01-04-2023 ambulatory [facility] Work Phone: Start: 01-04-2023 End: 01-04-2023 Departed Referred [facility] [place] - [address] Start: 09-13-2022 End: 09-13-2022 ambulatory [facility] Work Phone: Start: 09-13-2022 End: 09-13-2022 Departed Referred [facility] [place] - [address] Start: 09-06-2022 ambulatory Marcus Tierney MD Work Phone: [facility] Start: 08-03-2022 End: 08-03-2022 ambulatory [facility] Work Phone: Start: 08-03-2022 End: 08-03-2022 Departed Referred [facility] [place] - [address] Start: 06-25-2022 End: 06-25-2022 ambulatory [facility] Work Phone: Start: 06-25-2022 End: 06-25-2022 Departed Referred [facility] [place] - [address] Start: 06-21-2022 Telephone encounter Bipin Dennis MD Work Phone: [facility] Comment on above: Appointment Start: 06-19-2022 Telephone encounter Bipin Dennis MD Work Phone: [facility] Comment on above: Appointment Start: 04-21-2022 End: 04-21-2022 Departed Referred [facility] [place] - [address] Start: 02-28-2022 End: 02-28-2022 Departed Referred [facility] [place] - [address] Start: 12-05-2021 End: 12-05-2021 Departed Referred [facility] - [address] Start: 12-05-2021 Registered Referred [facility] - [address] Start: 12-01-2021 End: 12-01-2021 Departed Referred [facility] - [address] Start: 12-01-2021 Registered Referred [facility] - [address] Start: 11-16-2021 Registered Referred [facility] - [address] Start: 11-08-2021 Registered Referred [facility] - [address] Start: 10-21-2021 Registered Referred [facility] - [address] Start: 09-19-2021 Registered Referred [facility] - [address] Procedures Date Procedure Procedure Detail Performing Clinician Start: 08-20-2025 Blood pressure within normal parameters - no follow-up required Crystal Key [employer] TE[employer]IP[employer] Work Phone: Start: 08-20-2025 BMI documented as above normal parameters - follow-up documented Crystal Key [employer] TE[employer] Work Phone: Start: 08-20-2025 Current tobacco non-user cad cap copd pv dm Crystal Key [employer] TE[employer] Work Phone: Start: 08-20-2025 Documentation of current medications Crystal Key [employer] Work Phone: Start: 08-20-2025 Pain assessment documented as positive - no follow-up/reason not given Crystal Key [employer] TE[employer] Work Phone: Start: 07-22-2025 Urine culture Robb ROB Start: 07-22-2025 Urnls dip stick/tablet reagent auto microscopy Robb ROB Start: 06-17-2025 Urine culture Robb ROB Start: 06-17-2025 Urnls dip stick/tablet reagent auto microscopy Robb ROB Start: 05-26-2025 Blood pressure within normal parameters - no follow-up required Paty Fonseca BL[employer] TEACHER[employer]IPMAN Work Phone: Start: 05-26-2025 BMI outside of normal parameters - no follow-up plan/reason not given Paty Dulmarlee BL[employer] TEACHER[employer]IPMAN Work Phone: Start: 05-26-2025 Current tobacco non-user cad cap copd pv dm Paty Dulmarlee BL[employer] TE[employer]ER[employer]IPMAN Work Phone: Start: 05-26-2025 Documentation of current medications Paty Dulmarlee BL[employer] TE[employer]IPMAN Work Phone: Start: 05-26-2025 Pain assessment documented as positive - no follow-up/reason not given Paty Raymundo BL[employer] TE[employer]ER[employer]IPMAN Work Phone: Start: 04-01-2025 Urnls dip stick/tablet reagent auto microscopy Robb ROB Start: 04-01-2025 Urine culture Robb ROB Start: 03-06-2025 Procedure Robb ROB Comment on above: Test Ordered: [id number] LacosamideTest(s) 0 [id number] developed and its performance characteristicsdetermined by [employer]. It has not been cleared or approvedby the Food and Drug Administration.Lacosamide 7.2 ug/mL Reference Range: 5.0-10.0 Limit of Detection 0.5 Mean plasma concentrations following maintenance dose 200 mg/day 4.99 +/- 2.51 ug/mL 400 mg/day 9.35 +/- 4.22 ug/mL 600 mg/day 12.46 +/- 5.60 ug/mLPerformed at: - [facility] [id number] Director: Hank Spangler MD, Phone: [phone] at: [facility] [employer] [id number] Director: Angel Franklin PhD, Phone: [phone] Start: 01-10-2025 Thyrotropin [Units/volume] in Serum or [...] Activity Detail Author Start: 02-20-2028 Colonoscopy COLONOSCOPY [facility] Start: 02-20-2028 COLORECTAL CANCER SCREENING COLORECTAL CANCER SCREENING [facility] Start: 2026 RSV Immunization for Adults (1 - 1-dose 75+ series) RSV Immunization for Adults (1 - 1-dose 75+ series) [facility] Start: 02-08-2026 LIPID SCREEN LIPID SCREEN [facility] Start: 01-10-2026 Thyroid stimulating hormone measurement TSH Level [facility] Start: 09-24-2025 End: 09-24-2025 Patient encounter procedure 09/24/2025 10:40 AM EST Office Visit [facility] [address] [facility] [address] [place] [address] Stew Oswald MD [address] [facility] [address] [place] [address] [facility] Start: 08-20-2025 End: 08-20-2025 [employer] Work Phone: Start: 08-20-2025 Fluoroscopic guidanc e needle placement add on [facility] [place] Work Phone: Start: 07-02-2025 End: 07-02-2025 [facility] Work Phone: Start: 06-22-2025 COVID-19 Vaccine ( season) COVID-19 Vaccine ( season) [facility] Start: 06-22-2025 Influenza vaccination [facility] Start: 05-26-2025 End: 05-26-2025 [employer] Work Phone: Start: 05-26-2025 Fluoroscopic guidanc e needle placement add on [facility] [place] Work Phone: Start: 04-09-2025 End: 04-09-2025 Patient encounter procedure 04/09/2025 9:20 AM EDT Office Visit [facility] [address] [address] Stew Oswald MD [address] [address] [facility] Start: 03-25-2025 End: 03-25-2025 Patient encounter procedure 03/25/2025 10:20 AM EDT Office Visit [facility] [address] [address] Stew Oswald MD [address] [address] [facility] Start: 03-08-2025 End: 02-06-2026 Lacosamide level Lacosamide level Lab Routine Focal epilepsy with impairment of consciousness, intractable (HCC) Expected: 03/08/2025 (Approximate), Expires: 02/06/2026 [facility] Work Phone: Comment on above: Expected: 03/08/2025 (Approximate), Expires: 02/06/2026 Start: 02-12-2025 End: 02-12-2025 Patient encounter procedure 02/12/2025 11:00 AM EDT Appointment [facility] [address] [place] [address] Stew Oswald MD [address] [place] [address] [facility] Start: 11-04-2024 DIABETES SCREEN DIABETES SCREEN [facility] Start: 10-22-2024 Medicare Advantage Annual Wellness Visit Medicare Advantage Annual Wellness Visit [facility] Start: 06-22-2024 COVID-19 Vaccine ( season) COVID-19 Vaccine ( season) [facility] Start: 06-22-2024 Influenza vaccination Influenza Vacc ine (#1) [facility] Start: 10-21-2022 FECAL OCCULT BLOOD FECAL OCCULT BLOO D [facility] Start: 10-21-2022 Screening for malign ant neoplasm of colon [facility] Start: 07-21-2022 Mammography MAMMOGRAM [facility] Start: 06-22-2022 Influenza vaccination INFLUENZA (#1) [facility] Start: 10-27-2021 ANNUAL PCP TEAM LOSS CONTROL REPRESENTATIVE DAMEON DISEASE VISIT ANNUAL PCP TEAM CHRONIC DISEASE VISIT [facility] Start: 10-22-2021 ADVANCE DIRECTIVE DISCUSSION ADVANCE DIRECTIVE DISCUSSION [facility] Start: 02-16-2021 DTaP/Tdap/Td Vaccine s (2 - Td or Tdap) DTaP/Tdap/Td Vaccines (2 - Td or Tdap) [facility] Start: 02-16-2021 Urine microalbumin profile DTAP,TDAP,TD (2 - Td or Tdap) [facility] Start: 09-28-2020 SHINGRIX VACCINE (3 of 3) SHINGRIX VACCINE (3 of 3) [facility] Start: 09-28-2020 Zoster Vaccines (3 o f 3) Zoster Vaccines (3 of 3) [facility] Start: 1996 COLOGUARD (FIT-DNA) COLOGUARD (FIT-D NA) [facility] Start: [address] [facility] Start: 1996 SIGMOIDOSCOPY SIGMOIDOSCOPY [facility] Start: 1991 Screening for malign ant neoplasm of breast Mammogram [facility] Start: 1969 BP CONTROLLED (<130/80) BP CONTROLLE D (<130/80) [facility] Start: 1969 Hepatitis C screening Hepatitis C Sc reening [facility] Start: 1963 Depression Monitoring Depression Mon [facility] Start: 1951 COVID-19 VACCINE (#1) COVID-19 VACCI NE (#1) [facility] Start: 1951 Lipid panel Lipid Panel [facility] Start: 1951 Screening for malign ant neoplasm of colon [facility] End: 10-06-2023 Screening mammography bi 2-view breast inc cad JANET SCREENING Radiology Routine Encounter for screening mammogram for breast cancer 1 Occurrences starting 09/06/2022 until 10/06/2023 [facility] Work Phone: Comment on above: 1 Occurrences starti ng 09/06/2022 until 10/06/2023 [facility] Immunizations Immunization Date Immunization Notes Care Provider [facility] 08-03-2020 influenza, high dose seasonal, preservative-free Bipin Dennis MD Work Phone: [facility] 08-03-2020 zoster vaccine recombinant Bipin Dennis MD Work Phone: [facility] 08-03-2020 influenza virus vacc ine, unspecified formulation Stew Oswald MD Work Phone: [facility] 09-19-2019 Seasonal trivalent influenza vaccine, adjuvanted, preservative free Bipin Dennis MD Work Phone: [facility] 08-19-2018 pneumococcal polysaccharide vaccine, 23 valent Bipin Dennis MD Work Phone: [facility] 08-19-2018 Seasonal trivalent influenza vaccine, adjuvanted, preservative free Bipin Dennis MD Work Phone: [facility] 07-29-2017 influenza, high dose seasonal, preservative-free Bipin Dennis MD Work Phone: [facility] 03-26-2017 pneumococcal conjuga te vaccine, 13 valent Bipin Dennis MD Work Phone: [facility] 07-21-2016 influenza, seasonal, injectable Bipin Dennis MD Work Phone: [facility] 05-18-2015 zoster vaccine, live Bipin Dennis MD Work Phone: [facility] 04-21-2015 zoster vaccine, live Bipin Dennis MD Work Phone: [facility] 07-07-2013 influenza, seasonal, injectable Bipin Dennis MD Work Phone: [facility] 02-16-2011 tetanus toxoid, redu mayelin diphtheria toxoid, and acellular pertussis vaccine, adsorbed Bipin Dennis MD Work Phone: [facility] Payers Date Payer Category Payer Self-pay [id number] 2024 Unknown [id number] 2023 Unknown [id number] 2023 Medicaid HMO [facility] MEDICAID ONLY [id number] 2023 Medicare HMO [id number] 2023 Unknown [id number] 2021 Medicaid MEDICAID [facility] MEDICAID [id number] 2021-Present [phone] [address] [place] [address] Medicaid [id number] 2021 Medicaid [id number] [address] [facility] AARP MEDICAR E [facility] AAR MEDICARE HMO [id number] 2021-Present [phone] [address] [address] [place] [address] HMO [id number] 2021 Private Health Insurance [id number] Medicare [id number] Unknown [facility] [employer] [facility] [id number] Unknown [id number] Unknown [id number] Unknown [id number] Unknown [id number] Unknown [id number] Unknown [id number] Unknown [id number] Unknown [id number] Unknown [id number] Unknown [id number] Unknown [id number] Unknown [id number] 462 Unknown [id number] 462 Unknown [id number] 462 Social History Date Type Detail Facility Tobacco smoking stat us MTIS Unknown if ever smoked [facility] Work Phone: Start: 1950 Sex Assigned At Female [facility] Start: 03-05-2020 End: 02-06-2025 Tobacco smoking status NHIS Ex-smoker [facility] History of tobacco use Current smoker [facility] Start: 03-05-2020 Tobacco use and exposure Smokeless tobacco non-user [facility] Start: 10-27-2021 Alcohol intake Current drinke r of alcohol (finding) [facility] Start: 03-05-2020 History SDOH Alcohol Comment rarely [facility] Start: 06-03-2020 History SDOH Financial 5 [facility] Start: 06-03-2020 History SDOH Food Worry 1 [facility] Start: 06-03-2020 History SDOH Transpo rt Med 2 [facility] Start: 03-05-2020 Tobacco Comment quit 20 years ago [facility] Start: 1950 Sex Assigned At Not on file [facility] consumption unknown [facility] Start: 05-22-2022 End: 01-29-2025 Sex Female (finding) [facility] Start: 02-06-2025 End: 08-20-2025 Gender identity Not on file [facility] History of tobacco use Cigarette Smoker [facility] History of tobacco use Passive smoker [facility] Start: 02-06-2025 Tobacco use and exposure Former smokeless tobacco user [facility] Start: 02-06-2025 End: 03-25-2025 History of Social function [facility] Start: 03-25-2025 Alcoholic beverage intake Ex-drinker (finding) [facility] Clinical Notes 11-03-2021 to 07-13-2025 Telephone Encounter - Jade Hester - 07/13/2025 10:17 AM EDTTelephone Encounter - Jade Hester - 07/13/2025 10:17 AM EDTTelephone Encounter - Antonette Alvarez MA - 07/13/2025 8:41 AM EDT Note Date & Type Note Facility 07-13-2025 Telephone encounter Note [facility] as written. [facility] further questions if applicable: Verbalized understanding. Were all questions from office addressed or relayed to [facility] from encounter: Yes [facility] 07-13-2025 Miscellaneous Notes Message released to [facility] as written. [facility] further questions if applicable: Verbalized understanding. Were all questions from office addressed or relayed to [facility] from encounter: Yes Lm for Ketty [phone] to call the office back, please relay providers message Lm for Ketty [phone] to call the office back, please relay providers message. I sent in an Rx for Vimpat. Remind them that Vimpat is a controlled substance and I am only allowed to write for a month and two refills, so they have to call ahead to warn me when it is time to refill. MONAE Hdez ([facility]) called in stating patient has 1 [...] the medication: N/A documented in this encounter [facility] 07-13-2025 Telephone encounter Note Lm for Ketty [phone] to call the office back, please relay providers message [facility] 07-10-2025 Telephone encounter Note Lm for Ketty [phone] to call the office back, please relay providers message. [facility] 07-10-2025 Miscellaneous Notes Lm for Ketty [phone] to call the office back, please relay providers message. I sent in an Rx for Vimpat. Remind them that Vimpat is a controlled substance and I am only allowed to write for a month and two refills, so they have to call ahead to warn me when it is time to refill. MONAE Hdez ([facility]) called in stating patient has 1 [...] the medication: N/A documented in this encounter [facility] 07-10-2025 Telephone encounter Note I sent in an Rx for Vimpat. Remind them that Vimpat is a controlled substance and I am only allowed to write for a month and two refills, so they have to call ahead to warn me when it is time to refill. [facility] 07-10-2025 Telephone encounter Note MONAE Hdez ([facility]) called in stating patient has 1 dose left and is requesting script be sent. Please be advised [facility] 07-09-2025 Telephone encounter Note Orville has two [...] prior to picking up the medication: N/A [facility] 03-25-2025 History of Present illness Narrative Images from the original note were not included. [facility] [address] [facility] [address] Dept: [phone] Dept Loc: [phone] Stew Oswald MD CHIEF COMPLAINT: Chief Complaint [...] She reports that she is actively seeing [facility] ("I saw them a couple of weeks [...] Resource Strain: Low Risk (06/03/2020) Received from [facility] Overall Financial Resource Strain (CARDIA) Difficulty of Paying Living Expenses: Not hard at all Food Insecurity: No Food Insecurity (12/16/2024) Received from [facility] Hunger Vital Sign Worried About Running Out of Food in the Last Year: Never true Ran Out of Food in the Last Year: Never true Transportation Needs: No Transportation Needs (12/16/2024) Received from [facility] PRAPARE - Transportation Lack of Transportation (Medical): No Lack of Transportation (Non-Medical): No Physical Activity: Not on file Stress: Not on file Social Connections: Not on file Intimate Partner Violence: Not on file Housing Stability: Low Risk (12/16/2024) Received from [facility] Housing Stability Vital Sign Unable to [...] intracranial process. Chronic changes and remote infarcts. Reinforcing Rod Layer: ALEXANDRO Transcribe Date/Time: Jan 11 2025 5:04P @RESULTINGLABINFO@ No results found for: "LEVETIRACETA", "FERRITIN", "CRP", "DANIEL", "ANCA" No results found for: "KIANNA", "IMMUNOGLOBUL", "OLIGOBANDS" No results found for: "OGS08KL", HEPCAB No results found for: "CRP", "ANATITER", [...] Artery Stenosis Father documented in this encounter [facility] 02-10-2025 Telephone encounter Note OK to send that place the order. [facility] 04-22-2025 Miscellaneous Notes OK to send that place the order. Called [facility]@ [phone]. HARVEY Akdi G- Auth is Valid if performed in facility. Called [facility] [phone] LM. Ketty-from [facility], said patient was ordered a Vascular US carotic arteries bilateral Ins won't pay if she goes by a cot and this is only way patient can be transferred However, the facility does have a company that comes to [facility] And can do the Vascular US at [facility] Would this be OK? -Ket[facility] at [facility] documented in this encounter [facility] 02-10-2025 Telephone encounter Note Called [facility]@ [phone]. HARVEY Kadi G- Auth is Valid if performed in facility. Called Ket[facility] [phone] LM. [facility] 02-10-2025 Telephone encounter Note Ketty-from [facility], said patient was ordered a Vascular US carotic arteries bilateral Ins won't pay if she goes by a cot and this is only way patient can be transferred However, the facility does have a company that comes to [facility] And can do the Vascular [facility] at [facility] Would this be OK? -[facility] at [facility] 02-06-2025 History of Present illness Narrative Images from the original note were not included. [facility] [address] [place] [address] [facility] [address] Dept: [phone] Dept Loc: [phone] Stew Oswald MD CHIEF COMPLAINT: Chief Complaint [...] Resource Strain: Low Risk (06/03/2020) Received from [facility], [facility] Overall Financial Resource Strain (CARDIA) Difficulty of Paying Living Expenses: Not hard at all Food Insecurity: No Food Insecurity (12/16/2024) Received from [facility] Hunger Vital Sign Worried About Running Out of Food in the Last Year: Never true Ran Out of Food in the Last Year: Never true Transportation Needs: No Transportation Needs (12/16/2024) Received from [facility] PRAPARE - Transportation Lack of Transportation (Medical): No Lack of Transportation (Non-Medical): No Physical Activity: Not on file Stress: Not on file Social Connections: Not on file Intimate Partner Violence: Not on file Housing Stability: Low Risk (12/16/2024) Received from [facility] Housing Stability Vital Sign Unable to [...] left Gait and Station: wheelchair bound DATA [facility] Outside Information Results MR brain wo contrast (Order [id number]) MR brain wo contrast Order: [id number] Impression IMPRESSION: No acute intracranial process. Chronic changes and remote infarcts. Reinforcing Rod Layer: PSCB Transcribe Date/Time: Jan 11 2025 5:04P Dictated by : DELBERT HYATT MD This examination was interpreted and the report reviewed and electronically signed by: DELBERT HYATT MD on Jan 11 2025 5:50PM EST Narrative DATE OF EXAM: Jan 11 2025 4:24PM [facility] 0294 - MRI BRAIN WO [...] End: 01/11/25 16:24 Specimen Collected: 01/11/25 16:24 [facility] Outside Information Results CT head wo IV contrast (Order [id number]) CT head wo IV contrast Order: [id number] Impression IMPRESSION: Chronic changes without evidence for acute intracranial abnormality. Reinforcing Rod Layer: PSCB Transcribe Date/Time: Jan 09 2025 7:59P Dictated by : HAMILTON LERMA MD This examination was interpreted and the report reviewed and electronically signed by: HAMILTON LERMA MD on Jan 09 2025 8:01PM EST Narrative Final Report * * DATE OF EXAM: Jan 09 2025 7:58PM [facility] 0504 - CT BRAIN WO [...] 19:58 Last Resulted: 01/09/25 20:03 Received From: [facility] Result Received: 01/19/25 14:05 View Encounter Received Information CT head wo IV contrast Order: [id number] Impression IMPRESSION: Stable chronic changes with no acute intracranial process identified. Reinforcing Rod Layer: ALEXANDRO Transcribe Date/Time: Dec 14 2024 4:59P Dictated by : FANTA WOODWARD MD This examination was interpreted and the report reviewed and electronically signed by: FANTA WOODWARD MD on Dec 14 2024 5:00PM EST Narrative Final Report * * DATE OF EXAM: Dec 14 2024 4:34PM [facility] 0504 - CT BRAIN WO [...] End: 12/14/24 16:34 Specimen Collected: 12/14/24 16:34 [facility] Outside Information EPIL EEG BEDSIDE/PORTABLE - 20 MINUTE ONLY W/VIDEO Narrative Performed by NEUROLOGY [facility] EPIL EEG Bedside/Portable - 20 minute only w/video [[id number]] Patient name: ELBA DIAZ Start of test: 01/10/2025 17:08 End of test: 01/10/2025 17:32 Duration: 0 hr 24 min Requested By: NILTON RODRIGUEZ Staff Physician: Ankit Fairbanks EEG Fellow or [place]: Aura Hilliard History: Elba Diaz is a [...] and electronically signed by Ankit Fairbanks MD, [facility] 3 yr ago Laser/Electro Optics Technician [facility] EPIL EEG Bedside/Portable - 20 minute only w/video [[id number]] Patient name: ELBA DIAZ Date of test: 11/03/2021 Duration: 0 hr 24 min Requested By: PINO PANIAGUA Staff Physician: Adriano Davies EEG Fellow or [place]: Vianney Ramirez History: 71 year old female [...] Adriano Davies M.D. Component 3 yr ago Laser/Electro Optics Technician [facility] EPIL EEG BEM - Continuous bedside w/video includes portable EEG read [[id number]] Patient name: ELBA DIAZ Date of test: 02/14/2021 Requested By: RAMOS BUSTAMANTE Staff Physician: Ankit Rico D.O. EEG Fellow or [place]: Dee Wasserman History: This is a 70 [...] by Marco A Viera 3 yr ago Laser/Electro Optics Technician [facility] EPIL EEG BEM - Continuous bedside w/video includes portable EEG read [[id number]] Patient name: ELBA DIAZ Date of test: 02/13/2021 Requested By: RAMOS BUSTAMANTE Staff Physician: Christopher Newey, D.O. EEG Fellow or [place]: Dee Wasserman History: This is a 70 [...] D.O. Date of signin02/14/2021 3 yr ago Laser/Electro Optics Technician [facility] EPIL EEG BEM - Continuous bedside w/video includes portable EEG read [[id number]] Patient name: ELBA DIAZ Date of test: 02/12/2021 Requested By: RAMOS BUSTAMANTE Staff Physician: Ankit Rico D.O. EEG Fellow or [place]: Crystal Quiroga History: This is a 70 [...] D.O. Date of signin02/13/2021 3 yr ago Laser/Electro Optics Technician [facility] EEG Bedside/Portable - 20 minute only w/video [[id number]] Patient name: ELBA DIAZ Date of test: 02/12/2021 Duration: 0 hr 24 min Requested By: GUTIERREZ SHANNON Staff Physician: Ankit Rico EEG Fellow or [place]: Tony Paniagua History: This is a 70 [...] D.O. Date of signin02/13/2021 3 yr ago Laser/Electro Optics Technician [facility] EPIL EEG BEM - Continuous bedside w/video includes portable EEG read [[id number]] Patient name: ELBA DIAZ Date of test: 02/10/2021 Requested By: OG FORREST Staff Physician: Ankit Rico D.O. EEG Fellow or [place]: Dee Wasserman History: Patient is a 70 [...] D.O. Date of signin02/11/2021 3 yr ago Laser/Electro Optics Technician [facility] EPIL EEG BEM - Continuous bedside w/video includes portable EEG read [[id number]] Patient name: ELBA DIAZ Date of test: 02/09/2021 Requested By: OG FORREST Staff Physician: Ankit Rico D.O. EEG Fellow or [place]: Dee Wasserman History: Patient is a 70 [...] Date of signin02/10/2021 Component 3 yr ago Laser/Electro Optics Technician [facility] EPIL EEG Bedside/Portable - 20 minute only w/video [[id number]] Patient name: ELBA DIAZ Date of test: 02/08/2021 Duration: 0 hr 23 min Requested By: AISSATOU CARVER Staff Physician: Lincoln Sanz EEG Fellow or [place]: Jaycee Lieberman History: Patient is a 70 [...] Ph.D. Date of signin02/08/2021 3 yr ago Laser/Electro Optics Technician [facility] EPIL EEG BEM - Continuous bedside w/video includes portable EEG read [[id number]] Patient name: ELBA DIAZ Date of test: 02/08/2021 Requested By: OG FORREST Staff Physician: Ankit Rico D.O. EEG Fellow or [place]: Dee Wasserman History: Patient is a 70 [...] D.O. Date of signin02/09/2021 Resulting Agency NEUROLOGY [facility] Outside Information CT BRAIN WO IVCON Anatomical Region Laterality Modality Head -- Computed Tomography Impression IMPRESSION: 1. No CT evidence of acute intracranial abnormalities. 2. Large area of encephalomalacia within right middle cerebral artery distribution infarct compatible with previous chronic infarct. 3. Chronic small vessel ischemic white matter disease and diffuse cerebral volume loss. Reinforcing Rod Layer: ALEXANDRO Transcribe Date/Time: Feb 07 2021 11:33A Dictated by : VANNA FULTON MD [facility] Outside Information CT BRAIN WO IVCON [...] or proximal occlusion is seen of the [place]. See above for details. 2. [...] Etiology is uncertain. Follow-up could be considered. Reinforcing Rod Layer: ALEXANDRO Transcribe Date/Time: Feb 01 2021 9:53A 4 yr ago Laser/Electro Optics Technician Echocardiography Report: Transthoracic Echo [facility] Date of service: 02/24/2020 1:07:58 PM Ordering physician: JOSE Parekh Indication: Stroke Technologist: Debra Light RDCS Interpreting physician: Shun Sheldon DO PATIENT: Name: [...] as late effect of cerebrovascular accident (CVA) ([facility]) I am missing the neurology consult [...] arranging for studies. documented in this encounter [facility] 01-13-2025 Note HNO ID: [id number] Author: NILTON RODRIGUEZ DO Service: Hospital Medicine Author Type: Physician Type: Progress Notes Filed: 01/13/2025 18:34 Note Text: Documentation Query Please clarify Diagnosis associated with clinical indicators Other unspecified anemia This document will become part of the patient's medical record. [facility] 01-13-2025 Note HNO ID: [id number] Author: NILTON RODRIGUEZ DO Service: Hospital Medicine Author Type: Physician Type: Progress Notes Filed: 01/13/2025 18:33 Note Text: Documentation Query Patient admitted with Change in Mental Status AND Right sided weakness symptoms) Please clarify the diagnosis associated with clinical indicators Other unable to clinically determine This document will become part of the patient's medical record. [facility] 01-13-2025 Note HNO ID: [id number] Author: CELESTE ARTIS LSW Service: Care Management Author Type: Track Moving Machine Operator Type: Care Mgt Progress Note Filed: 01/13/2025 17:06 Note Text: CARE MANAGEMENT DISCHARGE NOTE SERVICE DATE: January 13, 2025 SERVICE TIME: 5:05 PM Admission Date: 01/09/2025 LOS: 4 days Discharge Arrangement Discharge Arrangement: [facility] Facility Services Arranged Medical Services: Other: See Comment (ECF) Provider Name: Vince Montoya Caregiver Assessment Caregiver is ready, willing and able to meet the patient's needs as recommended by the inter-professional team: Yes Name of Caregiver: EVA Montoya Transportation Arrangements Transportation Arrangements: Ambulance Transportation Agency and Phone #:: [facility] ( [facility] ) [phone] / [phone] Date of Trip: 01/13/25 Time of Trip: 1929 Type of Service: BLS Non-emergency Master Machinist Location: [facility] Destination: [facility] Handoff Communication: Handoff to: Other Caregiver Other Caregiver Name/Phone: [facility]. RN to call report Additional Information: Patient to discharge this date to [facility]. Transport scheduled through [facility]. Son and patient notified and agreeable to arrangements. Summary of Care, DC Summary, and AVS sent to facility. Transport packet on chart. RN notified. SIGNATURE: WILSON Hernandez PATIENT NAME: Elba Wolfshalini DATE: January 13, 2025 TIME: 5:05 PM [facility] 01-13-2025 Note HNO ID: [id number] Author: CELESTE ARTIS LSW Service: Care Management Author Type: Track Moving Machine Operator Type: Care Mgt Progress Note Filed: 01/13/2025 17:02 Note Text: CARE MANAGEMENT PROGRESS NOTE SERVICE DATE: 01/13/2025 SERVICE TIME: 5:00pm LOS: 4 days IMM Follow Up Copy Given: Yes Copy given to:: Patient Method: In Person SIGNATURE: WILSON Hernandez PATIENT NAME: Elba Diaz DATE: January 13, 2025 TIME: 5:02 PM [facility] 01-12-2025 Note HNO ID: [id number] Author: NILTON RODRIGUEZ DO Service: Hospital Medicine Author Type: Physician Type: Progress Notes Filed: 01/12/2025 17:15 Note Text: DEPARTMENT OF HOSPITAL MEDICINE PROGRESS NOTE SERVICE DATE: 01/12/2025 SERVICE TIME: 5:14 PM Hospital Medicine/Primary Attending: Nilton Rodriguez DO NIGHT AND WEEKEND COVERAGE: [place] COVERAGE: After 7pm, please call cross cover pager #[phone] Subjective Patient seen and examined, denies complaints [...] and Airways Line Duration Peripheral 01/09/25 1245 [facility] Short Right Hand 20 Gauge 3 days Peripheral 01/09/25 1910 [facility] Right Antecubital 20 Gauge 2 days [...] January 12, 2025 TIME: 5:14 PM etx [id number] [facility] 01-12-2025 Note HNO ID: [id number] Author: JOSE MCRAE RN Service: Care Management Author Type: Registered Nurse Type: Care Mgt Progress Note Filed: 01/12/2025 13:38 Note Text: CARE MANAGEMENT PROGRESS NOTE SERVICE DATE: 01/12/2025 SERVICE TIME: 1337 LOS: 3 days Needs Prior to Discharge: To Be Determined, Discharge Transportation Chart reviewed. [facility] Patient is [facility] at facility, plan to return. Transport folder placed on chart. CM will continue to follow. SIGNATURE: Jose Mcrae RN PATIENT NAME: Elba Diaz DATE: January 12, 2025 TIME: 1:37 PM [facility] 01-11-2025 Note HNO ID: [id number] Author: NILTON RODRIGUEZ DO Service: Hospital Medicine Author Type: Physician Type: Progress Notes Filed: 01/11/2025 15:44 Note Text: DEPARTMENT OF HOSPITAL MEDICINE PROGRESS NOTE SERVICE DATE: 01/11/2025 SERVICE TIME: 3:31 PM Hospital Medicine/Primary Attending: Nilton Rodriguez, NIGHT AND WEEKEND COVERAGE: [place] COVERAGE: After 7pm, please call cross cover pager #[phone] Subjective Patient examined with son at bedside [...] and Airways Line Duration Peripheral 01/09/25 1245 [facility] Short Right Hand 20 Gauge 2 days Peripheral 01/09/25 1910 [facility] Right Antecubital 20 Gauge 1 day [...] January 11, 2025 TIME: 3:31 PM etx [id number] [facility] 01-11-2025 Note HNO ID: [id number] Author: SAUNDRA BARON RN Service: Care Management Author Type: Registered Nurse Type: Care Mgt Initial Assessment Filed: 01/11/2025 15:29 Note Text: CARE MANAGEMENT: ASSESSMENT AND DISCHARGE PLAN SERVICE DATE: January 11, 2025 SERVICE TIME: 3:27 PM PCP: No primary care provider on file. Primary Contact: Extended Emergency Contact Information Primary Emergency Contact: LucianoshaliniMauricio Mobile Relation: Son Secondary Emergency Contact: Tammie Cohen Mobile Relation: Daughter Admission Status: Inpatient Insurance Provider: [email or web address] PLAN HMO SNP Discharge Planning requested by: Per Department Practice Potential Transition Plans [facility] Facility/Intermediate Care Facility Advance Directives Current Advance Directive: Health Care Power of Director Media In Chart: No Sling Operator Attempted to Assist with AD Completion: Yes [...] Wheelchair-manual Discharge Planning Patient Goal(s): General wellness [place] Explained: [place] Given: No Reason Not Given: [...] Transportation: [place] , ambulance form completed Equipment Prior to Admission: wheelchair Support: pt from [facility] Patient confused, spoke with pt's son Mauricio , pt typically A+Ox3 at baseline, states that pt came from [facility], pt here for AMS, would like for pt to return to [facility] [place], CM will continue to follow SIGNATURE: Saundra Baron RN PATIENT NAME: Elba Diaz DATE: January 11, 2025 TIME: 3:27 PM [facility] 01-10-2025 Note HNO ID: [id number] Author: NILTON RODRIGUEZ DO Service: Hospital Medicine Author Type: Physician Type: Progress Notes Filed: 01/10/2025 17:50 Note Text: DEPARTMENT OF HOSPITAL MEDICINE PROGRESS NOTE SERVICE DATE: 01/10/2025 SERVICE TIME: 5:37 PM Hospital Medicine/Primary Attending: Nilton Rodriguez NIGHT AND WEEKEND COVERAGE: [place] COVERAGE: After 7pm, please call cross cover pager #[phone] Subjective Patient examined with son and daughter [...] and Airways Line Duration Peripheral 01/09/25 1245 [facility] Short Right Hand 20 Gauge 1 day Peripheral 01/09/25 1910 [facility] Right Antecubital 20 Gauge <1 day [...] January 10, 2025 TIME: 5:37 PM etx [id number] [facility] 01-09-2025 Note SARS-COV-2 (AGENT OF COVID-19) RNA: Not detected INFLUENZA A RNA: Not detected INFLUENZA B RNA: Not detected RESPIRATORY SYNCYTIAL VIRUS (RSV) RNA: Not detected [facility] Comment on above: Performed By: #### 9 [id number] ####[facility] LABORATORYCLIA [id number] [place] [address] [place] 01-01-2025 Telephone encounter Note Pt is added on the wait list [facility] 01-01-2025 Miscellaneous Notes Pt is added on the wait list Name of caller: Sari Contact phone number: [phone] Relationship to Patient: [facility] Provider: New Patient/Dr. Oswald Practice: Neurology Chief [...] their call: N/A documented in this encounter [facility] 01-01-2025 Telephone encounter Note Name of caller: Sari Contact phone number: [phone] Relationship to Patient: [facility] Provider: New Patient/Dr. Oswald Practice: Neurology Chief [...] business hours to return their call: N/A [facility] 12-18-2024 Note HNO ID: [id number] Author: MARTIN MCCALL LSW Service: Care Management Author Type: Track Moving Machine Operator Type: Care Mgt Progress Note Filed: 12/18/2024 11:19 Note Text: CARE MANAGEMENT DISCHARGE NOTE SERVICE DATE: December 18, 2024 SERVICE TIME: 11:15 AM Admission Date: 12/14/2024 LOS: 3 days Discharge Arrangement Discharge Arrangement: [facility] Facility Services Arranged Return to SNF Provider Name: Dr. Helms Phone: [phone] Caregiver Assessment Transportation Arrangements Transportation Arrangements: Ambulance Transportation Agency and Phone #:: [facility] ( [facility] ) [phone] / [phone] Date of Trip: 12/18/24 Time of Trip: 1430 Type of Service: ALS Non-emergency Was transportation financial coverage discussed with family?: Patient Master Machinist Location: [facility] Destination: [facility] Handoff Communication: Handoff to: Funeral Home Location Manager Additional Information: [facility] [id number] Pt is transporting back to [facility] at 2:30pm via [employer]/cot. Packet on chart. SW called SNF, they are asking for updated clinicals. Sent via careKaznachey. RN to call [phone] for N2N REPORT, pt is in [address]. Son was made aware over the phone. No other dc needs at this time. SIGNATURE: WILSON Soliman PATIENT NAME: Elba Diaz DATE: December 18, 2024 TIME: 11:15 AM Ext [id number] [facility] 12-18-2024 Note HNO ID: [id number] Author: MARK DAMON RPh Service: Pharmacy Author [...] discharge medication list. Mark Damon RPh Pager: [phone] 12/18/2024 11:14 AM Medication List CONTINUE taking [...] 0.05 mg/24 hr patch Generic drug: estradiol [facility] 12-18-2024 Note HNO ID: [id number] Author: DANILO HELMS MD Service: Hospital Medicine Author Type: Physician Type: Progress Notes Filed: 12/18/2024 10:29 Note Text: Documentation Query Please specify a diagnosis associated with the Clinical Indicators for this patient Obesity This document will become part of the patient's medical record. [facility] 12-17-2024 Note HNO ID: [id number] Author: DANILO HELMS MD Service: Hospital Medicine Author Type: Physician Type: Progress Notes Filed: 12/17/2024 18:51 Note Text: Documentation Query Please clarify the Diagnosis associated with clinical indicators Delirium Only This document will become part of the patient's medical record. [facility] 12-17-2024 Note HNO ID: [id number] Author: DANILO HELMS MD Service: Hospital Medicine Author Type: Physician Type: Progress Notes Filed: 12/17/2024 18:53 Note Text: DEPARTMENT OF HOSPITAL MEDICINE PROGRESS NOTE SERVICE DATE: 12/17/2024 SERVICE TIME: 3:32 PM Hospital Medicine/Primary Attending: Danilo Helms MD NIGHT AND WEEKEND COVERAGE: After 7pm please page [phone] CHIEF COMPLAINT: Follow-up for change in mental [...] TID PRN sodium chloride 0.65 % 2 [place] 2 [place] EACH NOSTRIL PRN prochlorperazine 10 mg injection [...] and Occupational Therapy recommending return back to nursing home facility/ECF. 5. Hypokalemia. Repleting with oral potassium 40 mg 3 times a day x 3 doses. VTE Prophylaxis: As per primary team Disposition: Extended Care Facility Plan of care discussed with: Provider, RN, Patient SIGNATURE: Danilo Helms MD PATIENT NAME: Elba Diaz DATE: December 17, 2024 TIME: 3:32 PM PAGER/CONTACT #: Mili miller [facility] 12-17-2024 Note HNO ID: [id number] Author: MARK DAMON RPh Service: Pharmacy Author Type: Pharmacist Type: Plan of Care Filed: 12/17/2024 15:36 Note Text: PHARMACY MEDICATION REVIEW Patient Name: Elba Diaz : 1950 The following medications were updated within the DATA MANAGER medication list: Medications ADDED to DATA MANAGER medication list N/A Medications CHANGED on DATA MANAGER medication list Iron 1 tablet daily to one tablet every other day Calcium 500 mg to 600 mg daily Medications REMOVED from DATA MANAGER medication list Protonix Keppra Gabapentin Docusate Cholestyramine Amitriptyline Citalopram Additional comments: Updated meds per [facility] med list. The below information represents the best possible medication history: Yes Medication history completed by: Pharmacist: Mark Damon RPh Source of history: [facility]/Other MAR - [facility] Medication nonadherence identified: Unable to assess Reconciliation completed: Yes Completed by: DAMIAN All DATA MANAGER medications addressed by DAMIAN Patient interested in Bedside Delivery Services or using OP Pharmacy at discharge? Unable to assess Preferred outpatient pharmacy: [facility] [place] [address] - [address] [place] [address] Allergies: Codeine Other: See Comments Comment:nausea Prior [...] stay upright for 30 min. *Mondays between 0049-7962* aspirin, enteric coated (ASPIR-81) 81 mg EC [...] at bedtime. Facility-Administered Medications: None Mark Damon marybel 12/17/2024 [facility] 12-16-2024 Note HNO ID: [id number] Author: DANILO HELMS MD Service: Hospital Medicine Author Type: Physician Type: Progress Notes Filed: 12/16/2024 15:36 Note Text: DEPARTMENT OF HOSPITAL MEDICINE PROGRESS NOTE SERVICE DATE: 12/16/2024 SERVICE TIME: 3:32 PM Hospital Medicine/Primary Attending: Danilo Helms MD NIGHT AND WEEKEND COVERAGE: After 7pm please page [phone] CHIEF COMPLAINT: Follow-up for change in mental [...] TID PRN sodium chloride 0.65 % 2 [place] 2 [place] EACH NOSTRIL PRN prochlorperazine 10 mg injection [...] and Occupational Therapy recommending return back to nursing home facility/ECF. 5. Hypokalemia. Will replete with oral potassium 40 mg 3 times a day x 3 doses. VTE Prophylaxis: As per primary team Disposition: Extended Care Facility Plan of care discussed with: Provider, RN, Patient SIGNATURE: Danilo Helms MD PATIENT NAME: Elba Diaz DATE: December 16, 2024 TIME: 3:32 PM PAGER/CONTACT #: Mili miller [facility] 12-16-2024 Note HNO ID: [id number] Author: LOSI MENA RN Service: Care Management Author Type: [...] Relation: Daughter Admission Status: Inpatient Insurance Provider: [employer] [facility] [place] Dis[place] Planning requested by: Per Department Practice Potential Transition Plans [facility] Facility/Intermediate Care Facility Advance Directives Current Advance Directive: Health Care Power of Director Media In Chart: No Sling Operator Attempted to Assist with AD Completion: No Unable to Assist Due To:: Delirium Current Living Arrangements and Support Lives with: Alone Type of Residence: Extended Care Facility Does the patient have to climb stairs at home?: No [facility] Support: Children How do you manage to accomplish the following: Dependent: Ambulation, Bathe/Shower, Dress, Meals/Meal Prep, Going to the bathroom, Medication Management, Transportation to appointments/community Current Services/Equipment Current Post-Acute Service(s): DME Current DME Type: [facility] [employer] Discharge Planning Patient Goal(s): General wellness [place] Explained: [place] Given: Yes Are you interested in bedside delivery of your medications? No Discharge Planning Participant(s): Children Patient/Family Comments: Caregiver Assessment: Caregiver is ready, willing and able to meet the patient's needs as recommended by the inter-professional team: Yes Name of Caregiver: Roel Transport at Discharge: Transportation Arrangements: Ambulance Master Machinist Location: [facility] Needs Prior to Discharge: Needs Prior to Discharge: To Be Determined Post-Acute Discharge Plan: Spoke to son Mauricio. Patient is LTC resident at [facility], with plans to return. [facility] tasked to send return referral via [employer]. Patient is non ambulatory and uses a [facility] for transfers. Therapy recs ECF. Anticipate return to ECF once medically ready. Will need cot transport at [facility] to continue to follow. SIGNATURE: Lois Mena RN PATIENT NAME: Elba Diaz DATE: December 16, 2024 TIME: 11:16 AM [facility] 12-15-2024 Note HNO ID: [id number] Author: DANILO HELMS MD Service: Hospital Medicine Author Type: Physician Type: Progress Notes Filed: 12/15/2024 17:34 Note Text: DEPARTMENT OF HOSPITAL MEDICINE PROGRESS NOTE SERVICE DATE: 12/15/2024 SERVICE TIME: 5:31 PM Hospital Medicine/Primary Attending: Danilo Helms MD NIGHT AND WEEKEND COVERAGE: After 7pm please page [phone] CHIEF COMPLAINT: Follow-up for urinary tract infection [...] evaluate in anticipation of return back to nursing home facility/ECF. VTE Prophylaxis: As per primary team Disposition: Extended Care Facility Plan of care discussed with: Provider, RN, Patient SIGNATURE: Danilo Helms MD PATIENT NAME: Elba Diaz DATE: December 15, 2024 TIME: 5:31 PM PAGER/CONTACT #: mili miller [facility] 12-14-2024 Note SARS-COV-2 (AGENT OF COVID-19) RNA: Not detected INFLUENZA A RNA: Not detected INFLUENZA B RNA: Not detected RESPIRATORY SYNCYTIAL VIRUS (RSV) RNA: Not detected [facility] Comment on above: Performed By: #### 9 [id number] ####[facility] LABORATORYCLIA [id number] [address] [place] [facility] 09-06-2022 Note Patient Outreach (IN TMMN) ELBA DIAZ ([id number]) 1950 F CHT Date Time Provider Department 09/06/22 MARCUS TIERNEY During your visit today, we recorded the following information about you: Allergies As of Date: 09/06/2022 Noted Allergy Reaction CODEINE 03/26/2017 14 - Other: See Comments Comments: nausea Date Reviewed: 11/06/2021 Reviewed by: Carrie Amaya, MONAE - Fully Assessed Visit Diagnosis:Encounter for screening mammogram for breast cancer [Z12.31] Order(s):[facility] SCREENING [[id number]] Order #: [id number] FUTURE Prescriptions as of 09/11/2022 - divalproex [...] 1 TABLET BY MOUTH EVERY DAY - [facility] Blue-Sod Smff-DkWwh-Fid (URIBEL) 118-10-40.8-36 mg Take 1 capsule by [...] Encounter Status:Closed by ANABEL STUART on 09/11/22 [facility] 06-21-2022 Miscellaneous Notes Called and left patient a VM to see about moving her appt w Dr. Dennis on the to the . Marie Vences June 21, 2022 10:40 AM documented in this encounter [facility] 06-19-2022 Miscellaneous Notes Called and left patient a VM about switching appointment from Jul 18 to the . Marie Vences June 19, 2022 10:36 AM documented in this encounter [facility] 03-22-2022 Note HNO ID: [id number] Author: Population Health Navigator Liz Varela Service: ? Author Type: ? Type: Progress Notes Filed: 03/22/2022 12:30 PM Note Text: POPULATION HEALTH NAVIGATION OUTREACH Action/FYI Dear Dr. Tierney, Our Population Health Navigation team is completing an outreach regarding open HCC gaps. This patient currently has the following open HCC gap(s) listed: I72.9 - Aneurysm (HCC) - [id number] Last Billed 04/20/2020 An attempt has been [...] address : I72.9 - Aneurysm (HCC) - [id number] Last Billed 04/20/2020 Annual Wellness/PCP visit/ BP CONTROLLED - last visit 10/27/2020 Pt identified by name and : NO Outreach Outcome/Action Unable to reach patient: Phone number not valid / voicemail full MyChart message sent Did you use a PCP flex slot to schedule this appointment? N/A Reason for Outreach HCC or suspected condition Payer: Payor: [facility] MEDICARE / Plan: UHC AARP [...] Liz Varela March 22, 2022 12:15 PM [facility] 03-22-2022 Note Patient Outreach (NE TNAV) ELBA DIAZ ([id number]) 1950 F CHT Date Time Provider Department 03/22/22 LIZ VARELA During your visit today, we recorded the following information about you: Population Health Navigator Liz Varela 03/22/2022 12:30 PM Signed POPULATION HEALTH NAVIGATION OUTREACH Action/I Dear Dr. Tierney, Our Population Health Navigation team is completing an outreach regarding open HCC gaps. This patient currently has the following open HCC gap(s) listed: I72.9 - Aneurysm (HCC) - [id number] Last Billed 04/20/2020 An attempt has been [...] call to schedule for HCC. 2nd attempt- PerfectHART message sent. Patient is on HCC list for below gaps and needs appt to address : I72.9 - Aneurysm (HCC) - [id number] Last Billed 04/20/2020 Annual Wellness/PCP visit/ BP CONTROLLED - last visit 10/27/2020 Pt identified by name and : NO Outreach Outcome/Action Unable to reach patient: Phone number not valid / voicemail full MyChart message sent Did you use a PCP flex slot to schedule this appointment? N/A Reason for Outreach HCC or suspected condition Payer: Payor: [facility] MEDICARE / Plan: UHC AARP [...] BY MOUTH EVERY DAY - Mth-Me Blue-Sod Rqdt-LlPzt-Sfi (URIBEL) 118-10-40.8-36 mg Take 1 capsule by mouth once daily. - levothyroxine (SYNTHROID) 125 mcg tablet TAKE 1 TABLET BY MOUTH EVERY MORNING BEFORE BREAKFAST - aspirin, enteric coated (ASPIR-81) 81 mg EC tablet Take 81 mg by mouth once daily. - calcium carbonate-vitamin D3 (CALCIUM 500+D) 500 mg(1,250mg) -400 unit chew (more content not included)... [facility] 11-03-2021 History of Past i llness Narrative Problem Noted Date Resolved Date AMS (altered mental status) 11/03/202110/22 Altered mental status 10/21/2021 11/07/2021 Acute renal insufficiency 05/16/20202020 DAVEY (acute kidney injury) 05/14/20202020 documented as of this encounter (statuses as of 06/19/2022) [facility] History of Past illness Narrative* Problem Noted Date Resolved Date AMS (altered mental status) 11/03/202110/22 Altered mental status 10/21/2021 11/07/2021 Acute renal insufficiency 05/16/20202020 DAVEY (acute kidney injury) 05/14/20202020 documented as of this encounter (statuses as of 06/21/2022) [facility] History of Past illness Narrative* Problem Noted Date Resolved Date AMS (altered mental status) 11/03/202110/22 Altered mental status 10/21/2021 11/07/2021 Acute renal insufficiency 05/16/20202020 DAVEY (acute kidney injury) 05/14/20202020 documented as of this encounter (statuses as of 09/11/2022) [facility] noteNo assessment information availableWFirelands [facility] Center Work Phone: Evaluation note* Diagnosis Encounter for screening mammogram for breast cancer [facility] Diagnosis Focal epilepsy with impairment of consciousness, intractable (HCC)- Primary Localization-related (focal) (partial) epilepsy and epileptic syndromes with simple partial seizures, with intractable epilepsy Carotid stenosis, symptomatic, with infarction (HCC) Hemiparesis affecting left side as late effect of cerebrovascular accident (CVA) (HCC) [facility]* Diagnosis Focal epilepsy with impairment of consciousness, intractable (HCC)- Primary Localization-related (focal) (partial) epilepsy and epileptic syndromes with simple partial seizures, with intractable epilepsy Carotid stenosis, symptomatic, with infarction (HCC) Hemiparesis affecting left side as late effect of cerebrovascular accident (CVA) (HCC) [facility]* Diagnosis Focal epilepsy with impairment of consciousness, intractable (HCC) Localization-related (focal) (partial) epilepsy and epileptic syndromes with simple partial seizures, with intractable epilepsy [facility] Diagnosis Focal epilepsy with impairment of consciousness, intractable (HCC) Localization-related (focal) (partial) epilepsy and epileptic syndromes with simple partial seizures, with intractable epilepsy documented in this encounter [facility] for referral (narrative)* Diagnostic Procedure Only (Routine) - Pending Review Specialty Diagnoses / Procedures Referred By Contac t Referred To Contact [facility] Diagnoses Encounter for screening mammogram for breast cancer Procedures JANET SCREENING SCREENING MAMMOGRAPHY BI 2-VIEW BREAST INC CAD Niall, Marcus Dawn MD [address] [place] [address] [facility] [address] [place] [id number] Referral ID Status Reason Start Date Expiration Date Visits Requested Visits Authorized [id number] Pending Review Auto-Generat ed Referral 2 10/06/2023 1 1 [facility] for referral (narrative)No reason for referral information availableWFirelands Regional Medical Center Work Phone: Summary Purpose Family [...] 2:43 PM Hospital Course Note HNO ID: [id number] Author: Rk Shannon Service: Hospital Medicine Author [...] Complaint and Reason for Visit Chief Complaint [facility] BLOOD [facility] LAB WORK Chief Complaint [facility]WORK [facility]LOOD WORK [facility] LABWORK [facility] LAB WORK Chief Complaint [facility] BLOOD W ORK [facility] LABWORK [facility] LAB WORK [facility] LAB[facility] Chief Complaint [facility] Chief Complaint [facility] LABWORK [facility] LAB WORK Chief Complaint [facility] LAB WOR K [facility] LAB WORK Chief Complaint [facility] LAB WOR K [facility] LAB WORK [facility] LAB WORK Chief Complaint [facility]WORK LABWORK Chief Complaint [facility] LABWORK LABWORK Chief Complaint LABWORK LABWORK [facility] LABWORK Chief Complaint LABWORK LABWORK [facility]WORK LABWORK Chief Complaint Admit Date LABWORK October 27, 2024 5: 00am [facility] LAB WORK November 27, 2024 5:00am LAB WORK December 22, 2024 2:30 pm LAB WORK December 24, 2024 5:00 am LAB WORK December 30, 2024 2:0 0am LABWORK December 31, 2024 5:0 0am LABWORK January 14, 2025 5:0 0am Chief Complaint Admit Date [facility] LAB WORK November 27, 2024 5:00am LAB WORK December 22, 2024 2:30 pm LAB WORK December 24, 2024 5:00 am LAB WORK December 30, 2024 2:0 0am LABWORK December 31, 2024 5:0 0am LABWORK January 14, 2025 5:0 0am LABWORK March 06, 2025 5:00a m Chief Complaint Admit Date LABWORK March 06, 2025 5:00a m [facility] LAB WORK April 01, 2025 4: 00pm Chief Complaint Admit Date LABOWRK June 17, 2025 5: 00am [facility] LAB WORK June 23 5:00am [facility] LAB WORK July 22, 2025 11:30am Additional Source Comments INFORMATION SOURCE (unrecogn ized section and content) DATE CREATED AUTHOR 05/19/2020 [facility] DATE CREATED AUTHOR AUTHOR'S ORGANIZ ATION 05/19/2020 [facility] DATE CREATED AUTHOR AUTHOR'S ORGANIZ ATION 08/17/2020 [facility] DATE CREATED AUTHOR AUTHOR'S ORGANIZ ATION 11/12/2020 [facility] ([place]) DATE CREATED AUTHOR AUTHOR'S ORGANIZ ATION 07/29/2021 [facility] DATE CREATED AUTHOR AUTHOR'S ORGANIZ ATION 09/11/2022 [facility] DATE CREATED AUTHOR AUTHOR'S ORGANIZ ATION 03/20/2025 [facility] DATE CREATED AUTHOR AUTHOR'S ORGANIZ ATION 07/13/2025 [facility] DATE CREATED AUTHOR AUTHOR'S ORGANIZ ATION 08/28/2025 [facility] Goals (unrecognized section and content) Goals [...] or prosecute any alcohol or drug abuse patient.[facility] Hospital[facility] the event this information is protected by the Federal Confidentiality of Alcohol and Drug Abuse Patient Records regulations: The Federal rules restrict any use of the information to criminally investigate or prosecute any alcohol or drug abuse patient.[facility] Hospital[facility] the event this information is protected by the Federal Confidentiality of Alcohol and Drug Abuse Patient Records regulations: The Federal rules restrict any use of the information to criminally investigate or prosecute any alcohol or drug abuse patient.[facility] Reason for Visit (unrecogniz ed section and content) Reason Comments Appointment Reason Onset Date Comments Appointment Request 01/01/2025 Reason Comments New Patient Memory Loss Specialty Diagnoses / Procedures Referred By Emily emmanuel Referred To Contact Diagnoses Memory deficit, cerebral infarct,aphasia, Procedures [place] OFFICE/OUTPATIENT NEW MODERATE MDM 45 MINUTES [facility] [address] [facility] [address] [place] [address] Phone: tel: fax: Stew Oswald MD [address] [facility] [address] [place] [address] Phone: tel: fax: Referral ID Status Reason Start Date Expiration Date V isits Requested Visits Authorized [id number] Pending Review 09/09/2024 09/09/2025 1 1 Reason Comments Follow-up Seizures Reason Onset Date Comments Med Refill 07/09/2025 Care Teams (unrecognized sec tion and content) Paperhanger Apprentice Relationship Specialty Start Date End Date Marcus Tierney MD [address] [place] [address] PCP - General Family Practice 02/11/20 Aliya Clarke, RN Registered Nurse 06/07/22 Cornelius Jiménez, DO [address] [place] [address] Family Practice 06/08/22 German Altman, DO [address] [place] [address] Primary Staff Physician Family Practice 06/08/22 Namita Schumacher, DO [address] [place] [address] Primary Staff Physician Family Practice 06/08/22 Marcus Tierney MD [address] [place] [address] Primary Staff Physician Family Practice 06/08/22 Yoav Tierney MD [address] [place] [address] Primary Staff Physician Family Practice 06/08/22 Delbert Ariza MD [address] [place] [address] Primary Staff Physician Family Practice 06/08/22 Shankar Marino, DO [address] [place] [address] Primary Staff Physician Family Practice 06/08/22 Pepe Moreno [address] [place] [address] Family Practice 06/08/22 Paperhanger Apprentice Relationship Specialty Start Date End Date Marcus Tierney MD [address] [place] [address] PCP - General Family Medicine 02/11/20 Aliya Clarke, RN Registered Nurse 06/07/22 Cornelius Jiménez, DO [address] [place] [address] Family Medicine 06/08/22 German Altman, DO [address] [place] [address] Primary Staff Physician Family Medicine 06/08/22 Winsome Namita DO [address] [place] [address] Primary Staff Physician Family Medicine 06/08/22 Marcus Tierney MD [address] [place] [address] Primary Staff Physician Family Medicine 06/08/22 Yoav Tierney MD [address] [place] [address] Primary Staff Physician Family Medicine 06/08/22 Delbert Ariza MD [address] [facility] [place] [address] Primary Staff Physician Family Medicine 06/08/22 Shankar Marino, DO [address] [place] [address] Primary Staff Physician Family Medicine 06/08/22 Pepe Moreno [address] [place] [address] Family Medicine 06/08/22 Aliya Clarke, MONAE Registered [...] Team Status: Active Member Role Status Dates [facility] Attending Provider Active Start: December 24, 2024 Team Status: Active Member Role Status Dates Robb ROB Attending Provider Active Star t: December 30, 2024 Team Status: Active Member Role Status Dates Robb ROB Attending Provider Active Star t: December 31, 2024 Team Status: Inactive Member Role Status Dates Robb ROB Attending Provider Active Star t: January 14, 2025 End: January 14, 2025 Paperhanger Apprentice Relationship Specialty Start Date End Date Robb Barnes MD [address] [place] [address] [address] [place], [place] [id number] PCP - General Family Medicine 02/06/25 Paperhanger Apprentice Relationship Specialty Start Date End Date Robb Barnes MD [address] [place] [address] [address] [place] [address] PCP - General Family Medicine 02/06/25 Team Status: Inactive Member Role Status Dates Robb ROB Attending Provider Active Star t: March 06, 2025 End: March 06, 2025 Paperhanger Apprentice Relationship Specialty Start Date End Date Robb Barnes MD [address] [place] [address] [address] [place], [place] [id number] PCP - General Family Medicine 02/06/25 Team Status: Inactive Member Role/Relationship Status Dates Robb ROB Attending Provider Active Star t: March 06, 2025 End: March 06, 2025 Team Status: Active Member Role/Relationship Status Dates Robb ROB Attending Provider Active Star t: April 01, 2025 Paperhanger Apprentice Relationship Specialty Start Date End Date Robb Barnes MD [address] [place] [address] [address] [place], [place] [id number] PCP - General Family Medicine 02/06/25 Team Status: Inactive Member Role/Relationship Status Dates Robb ROB Attending physician Active Sta rt: June 17, 2025 End: June 17, 2025 Team Status: Active Member Role/Relationship Status Dates Robb ROB Attending physician Active Sta rt: June 23, 2025 Team Status: Active Member Role/Relationship Status Dates Robb ROB Attending physician Active Sta rt: July 22, [...] BE BASED ON THE PRIMARY CLINICAL RECORDS. [facility]. provides no warranty or guarantee of the accuracy or completeness of information in this document.
== END ==
LOC: OLS.ACW300 05:00
PROVIDERS: Visit Provider Family Medicine
DX: D64.9 Anemia, unspecified (principal); R53.1 Weakness; G40.509 Epileptic seizures related to external causes, not intractable, without status epilepticus
CPT/HCPCS: 36415